=== PATIENT | male | born 1940 | race Caucasian/White ===

== ENCOUNTER 2016-06-26 02:48 | Inpatient (IN) | payer OTHER, MEDICARE ==
[~2016-06-26] VITALS: Ht 172.7 cm; Wt 65.8 kg
[~2016-06-26 02:48] MED LIST: ALTACE10 M1 PO; ALTACE10 M2 PO; AMLODIPINE BESY10 M1 PO; ATORVASTATIN CA40 MG PO; B COMPLEX1 EACH PO; BUFFERIN LOW DO81 MG PO; CARVEDILOL25 M1 PO; CENTRUM SILVER1 EAC3 PO; CENTRUM SILVER1 TA1 PO; CHOLESTYRAMINE378 GM PO; CIPROFLOXACIN500 M2 PO; COUMADIN 4MG TAB4 MG PO; COUMADIN 5 MG TA5 MG PO; COUMADIN5 M2 PO; COUMADIN7.5 M1 PO; CYTRA-2 ORAL S473 ML PO; DILAUDID2 MG PO; DOCUSATE SODIU100 MG PO; FERROUS SULFAT325 M3 PO; FOLIC ACID1 M1 PO; FOSAMAX 70MG70 MG PO; HYDRALAZINE HCL50 M1 PO; IRON65 MG PO; KEFLEX250 M1 PO; KEFLEX500 M1 PO; LASIX40 M1 PO; LEVAQUIN500 M1 PO; LEVEMIR100 U/ML SC; LEVEMIR100 UNIT/1 SC; LOMOTIL 2.5-0.1 EACH PO; LOPRESSOR 12.12.5 MG PO; LOPRESSOR 25MG25 MG PO; M930 ML PO; MERCAPTOPURINE50 M1 PO; MERCAPTOPURINE50 MG PO; METOPROLOL TART25 M1 PO; NOVOLOG100 U/ML SC; NOVOLOG100 UNIT/2 SC; OS-CAL 500+D31 EAC1 PO; OS-CAL 500+D31 EACH PO; PENICILLIN V P500 M1 PO; PENICILLIN V P500 MG PO; PERCOCET 325 MG1 TA2 PO; PERCOCET 5-3251 EACH PO; PREDNISONE10 M2 PO; PREDNISONE5 MG PO; PROCHLORPERAZIN10 MG PO; RENVELA800 M1 PO; ROCALTROL0.25 MC1 PO; SODIUM BICARBO325 M1 PO; SODIUM BICARBO650 M1 PO; SODIUM CITRATE PO; TRAMADOL HCL50 M1 PO; TRAMADOL50 MG PO; VITAMIN A8000 IU PO; VITAMIN A8000 UNIT PO; VITAMIN B-122000 MC1 PO; VITAMIN B-12500 MC2 PO; VITAMIN D2000 UNIT PO; VITAMIN D31000 UNI1 PO; [UNRECOGNIZED DRUG - OTHER] PO
--- NOTE | 2016-06-26 02:56 | NUR ---
PT BIBA FROM HOME FOR DIFF BREATHING AND CONFUSION. PT'S HAD CALLED EMS FOR A LIFT ASSIST TO THE BATHROOM. "HE WAS WEAK AND COULDN'T GET UP" PT USES A WALKER AT [facility] ON EMS ARRIVAL, THEY FOUND PATIENT CONFUSED AND WITH O2 SAT 89% ON RA. PT PLACED ON HIGH FLOW O2 BY BLS CREW. PLACED ON 2L NC BY TRANSPORTATION AID, O2 SAT IN THE 90'S. FINGERSTICK BY EMS 184. ETCO2 27. ON ARRIVAL TO ED, PT ALERT WITH JOSE ANGEL CISNEROS. ABLE TO ANSWER SOME QUESTIONS APPROPRIATLY () NOT ABLE TO ANSWER OTHER QUESTIONS (DO YOU KNOW WHERE YOU ARE? "YES" WHERE ARE YOU? PT DOES NOT ANSWER) PER SPOUSE, PATIENT HAS A NON HEALING WOUND TO BACK OF LEFT CALF AND HAD "PROCEDURE ON VEIN IN LEFT LEG TO SEE WHY THE WOUND ISN'T HEALING" PER , PT ALERT TO NORMAL LEVEL "HE JUST CAN'T TALK WITH ALL THAT PHLEGM" UPPER RESP CONGESTION ON AUSCULTATION. O2 SAT 99-100% AFTER PRODUCTIVE COUGH DR ALICIA AT BEDSIDE TO EVAL PT
[2016-06-26] MEDS ORDERED: SODIUM BICARBO325 M1 PO (02:58)
--- NOTE | 2016-06-26 03:38 | NUR ---
PORT CXR BEING DONE
--- NOTE | 2016-06-26 03:50 | NUR ---
EKG DONE AND SHOWN TO DR ALICIA. RT AT BEDSIDE FOR DUO NEB FOLLOWED BY COOLMIST TREATMENT
--- NOTE | 2016-06-26 03:56 | RADIOLOGY REPORT ---
EXAMINATION: CHEST 1 VIEW CLINICAL INFORMATION: Pneumonia. Follow-up abnormal exam. COMPARISON: 06/15/2016. TECHNIQUE: An AP view of the chest is provided. FINDINGS: The cardiac silhouette is not enlarged. The mediastinal and hilar contours are unremarkable. There are neither pleural effusions nor pneumothoraces. There is opacification within the lateral left midlung as well as the retrocardiac region. The osseous structures are unremarkable. IMPRESSION: Left lung opacification concerning for pneumonia. Recommendation is for a followup chest series to be obtained following treatment and/or resolution of symptoms to assure resolution of this appearance.
--- NOTE | 2016-06-26 03:57 | RADIOLOGY REPORT ---
EXAMINATION: XR SOFT TISSUE NECK CLINICAL INDICATION: Airway compromise. COMPARISON: None. TECHNIQUE: AP and lateral views of the neck are provided. FINDINGS: Soft tissue films of the neck demonstrate a normal larynx, pharynx and upper trachea. No soft tissue swelling or opaque foreign body is demonstrated. There is no hypopharyngeal distention. IMPRESSION: Unremarkable soft tissue neck radiographs.
--- NOTE | 2016-06-26 04:00 | NUR ---
RESPIRATORY THERAPY NOTE: ON NEB TX VIA MASK W/ 8 LPM O2 POX = 98%, STRIDOR NOTED, SET UP COOL MIST @ 28% FIO2.
[2016-06-26 04:16] LABS: ABSOLUTE BASOPHIL COUNT 0 /CUMM (0.0-0.2); ABSOLUTE EOSINOPHIL COUNT 0 /CUMM (0.0-0.7); ABSOLUTE GRANULOCYTE CT 8.8 /CUMM (1.4-6.5); ABSOLUTE LYMPH COUNT 0.4 /CUMM (1.2-3.4); ABSOLUTE MONOCYTE COUNT 1.2 /CUMM (0.10-0.60); BASOPHIL % 0.1 % (0.0-2.0); EOSINOPHIL % 0.1 % (0-5); GRANULOCYTE % 84.4 % (42.2-75.2); HEMATOCRIT 29.2 % (42-52); MEAN CORPUSCULAR HGB 29.3 PG (27.0-31.0); MEAN CORPUSCULAR HGB CONC 31.3 G/DL (33.0-37.0); MEAN CORPUSCULAR VOLUME 93.6 FL (80.0-94.0); MEAN PLATELET VOLUME 8.5 FL (7.4-10.4); PLATELET COUNT 124 /CUMM (130-400); RBC DISTRIBUTION WIDTH 19.3 % (11.5-14.5); RED BLOOD CELL CT 3.12 /CUMM (4.70-6.10); WHITE BLOOD CELL COUNT 10.4 /CUMM (4.8-10.8)
[2016-06-26 04:21] LABS: PT 13.8 SEC (9.4-12.5)
--- NOTE | 2016-06-26 04:38 | NUR ---
MULTIPLE ATTEMPTS BY MULTIPLE SATFF FOR IV ACCESS UNSUCCESSFUL. IV ACCESS ESTABLISHED BY RN EARNEST 22G LH. PT MEDICATED WITH 10 MG DECADRON IV ORDERED.
--- NOTE | 2016-06-26 04:49 | ED DYSPNEA/ASTHMA COMPLAINT ---
History of Present Illness General Chief Complaint: Dyspnea (COPD, CHF, Other) Stated Complaint: BIBA DIFF BREATHING Source: patient, family, old records, EMS, Epic Exam Limitations: no limitations Vital Signs & Intake/Output Vital Signs & Intake/Output Vital Signs Date Time Temp Pulse Resp B/P Pulse O2 O2 Flow FiO2 Ox Delivery Rate 06/26 0632 98.5 87 20 131/67 96 Aerosol 8L Mask 06/26 0501 97.7 95 22 140/63 97 Aerosol 8L Mask 06/26 0350 93 06/26 0315 97 Room Air 06/26 0256 96.9 90 20 136/67 97 Room Air Allergies Coded Allergies: Sulfa (Sulfonamide Antibiotics) (Mild, HIVES 06/15/16) Reconcile Medications Amlodipine Besylate 10 MG TABLET 1 TAB PO DAILY BP (Reported) Calcitriol (Rocaltrol) 0.25 MCG CAPSULE 1 CAP PO DAILY KIDNEYS (Reported) Calcium Carbonate/Vitamin D3 (Os-Vishal 500+D3 Caplet) 500 MG-600 TABLET 1 TAB PO TID SUPPLEMENT (Reported) Carvedilol 25 MG TABLET 1 TAB PO BID HEART (Reported) Citric Acid/Sodium Citrate (Cytra-2 Oral Solution) 473 ML SOLUTION 15 ML PO BID KIDNEYS (Reported) Cyanocobalamin (Vitamin B-12) 1,000 MCG TABLET 1 TAB PO DAILY SUPPLEMENT ( Reported) Ferrous Sulfate 325 MG (65 MG IRON) TABLET 1 TAB PO TID SUPPLEMENT (Reported) Furosemide 80 MG TABLET 1 TAB PO BID LEG SWELLING (Reported) Hydralazine HCl 50 MG TABLET 1 TAB PO BID HEART (Reported) Insulin Aspart (Novolog) 100 UNIT/ML VIAL DM (Reported) Insulin Detemir (Levemir) 100 UNIT/ML VIAL 13 UNITS SC DAILY QAM DM Multivit-Min/FA/Lycopen/Lutein (Centrum Silver Tablet) 1 EACH TABLET 1 TAB PO DAILY SUPPLEMENT (Reported) Oxycodone HCl/Acetaminophen (Percocet 5-325 MG Tablet) 5 MG-325 MG TABLET 1 TAB PO BID PRN PAIN Prednisone 10 MG TABLET 1 TAB PO DAILY KIDNEYS (Reported) Sevelamer Carbonate (Renvela) 800 MG TABLET 1 TAB PO TIDWM KIDNEYS (Reported) Sodium Bicarbonate 325 MG TABLET 1 TAB PO BID KIDNEYS (Reported) Tramadol HCl 50 MG TABLET 1 TAB PO BIDP PRN PAIN (Reported) Vitamin B Complex (B Complex) 1 EACH TABLET 1 TAB PO DAILY SUPPLEMENT ( Reported) Warfarin Sodium (Coumadin) 5 MG TABLET 1 TAB PO DAILY BLOOD THINNER (Reported ) DOSE ACCORDING TO INR Core Measure Meds Pre-Hospital coumadin Triage Note: PT BIBA FROM HOME FOR DIFF BREATHING AND CONFUSION. PT'S HAD CALLED EMS FOR A LIFT ASSIST TO THE BATHROOM. "HE WAS WEAK AND COULDN'T GET UP" PT USES A WALKER AT [facility] ON EMS ARRIVAL, THEY FOUND PATIENT CONFUSED AND WITH O2 SAT 89% ON RA. PT PLACED ON HIGH FLOW O2 BY BLS CREW. PLACED ON 2L NC BY ALLERGY SPECIALIST, O2 SAT IN THE 90'S. FINGERSTICK BY EMS 184. ETCO2 27. ON ARRIVAL TO ED, PT ALERT WITH JOSE ANGEL CISNEROS. ABLE TO ANSWER SOME QUESTIONS APPROPRIATLY () NOT ABLE TO ANSWER OTHER QUESTIONS (DO YOU KNOW WHERE YOU ARE? "YES" WHERE ARE YOU? PT DOES NOT ANSWER) PER SPOUSE, PATIENT HAS A NON HEALING WOUND TO BACK OF LEFT CALF AND HAD "PROCEDURE ON VEIN IN LEFT LEG TO SEE WHY THE WOUND ISN'T HEALING" PER , PT ALERT TO NORMAL LEVEL "HE JUST CAN'T TALK WITH ALL THAT PHLEGM" UPPER RESP CONGESTION ON AUSCULTATION. O2 SAT 99-100% AFTER PRODUCTIVE COUGH DR ALICIA AT BEDSIDE TO EVAL PT Triage Nurses Notes Reviewed? yes Onset: 2 weeks Duration: changing over time, continues in ED, getting worse Timing: recent history Severity: severe Activities at Onset: rest Prior Episodes/Possible Cause: unknown cause Modifying Factors: Worsens With: movement. Associated Symptoms: anxiety, cough, weakness HPI: 2 months prior to admission patient was [facility] for sore throat hoarse voice shortness of breath with stridor secondary to supraglottic edema requiring noninvasive positive pressure ventilation IV antibiotics to cover respiratory infection IV steroids to reduce edema and NG tube feeding due to difficulty eating at the time. 1 month prior to admission he was admitted to [facility] for cellulitis fever altered mental status secondary to chronic ulcer left leg with infection. 2 weeks prior to admission he has had recurrent cough with chest x-ray demonstrating left lower lobe infiltrate. Prescribed inhaler and antibiotics. Several days prior to admission he began developing sore throat hoarse voice. Prior to admission he became acutely weak with increased shortness of breath noisy breathing unable to ambulate found to be hypoxic with an oxygen saturation of 89% at home. Past History Travel History Traveled to [place] past 21 day No Medical History Any Pertinent Medical History? 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 No Review of Systems Review of Systems Constitutional: Reports: see HPI, malaise, weakness. EENTM: Reports: see HPI, throat pain. Respiratory: Reports: see HPI, cough, short of breath, stridor. Cardiovascular: Reports: no symptoms. GI: Reports: no symptoms. Genitourinary: Reports: no symptoms. Musculoskeletal: Reports: no symptoms. Skin: Reports: see HPI, rash. Neurological/Psychological: Reports: no symptoms. Hematologic/Endocrine: Reports: no symptoms. Immunologic/Allergic: Reports: no symptoms. All Other Systems: Reviewed and Negative Physical Exam Physical Exam General Appearance: well developed/nourished, alert, awake, anxious, severe distress Head: atraumatic, normal appearance Eyes: Bilateral: normal appearance, PERRL, EOMI. Ears, Nose, Throat: normal pharynx, normal ENT inspection Neck: normal inspection, supple, full range of motion, no midline tenderness, stridor Respiratory: chest non-tender, accessory muscle use, stridor, respiratory distress Cardiovascular: regular rate/rhythm, edema, normal peripheral pulses, tachycardia, norml femoral pulses equa Peripheral Pulses: 4+ carotid (R), 4+ carotid (L), 2+ radial (R), 2+ radial (L) Gastrointestinal: normal bowel sounds, soft, non-tender, no organomegaly Extremities: normal capillary refill, pedal edema, swelling Neurologic/Psych: no motor/sensory deficits, awake, alert, oriented x 3, belting inspector II- XII nml as tested Skin: normal color, warm/dry, rash, left leg with chronic poorly healing wound Lymphatic: no anterior cervical rebecca Core Measures ACS in differential dx? Yes Severe Sepsis Present: No Septic Shock Present: No Progress Differential Diagnosis: AMI, CHF, COPD, pulmonary embolism, pneumonia Plan of Care: Orders Procedure Date/time Status Nothing by Mouth 06/26 B Active TROPONIN LEVEL 06/26 1800 Active EKG 06/26 1800 Active TROPONIN LEVEL 06/26 1200 Active CBC WITHOUT DIFFERENTIAL 06/26 1200 Active BASIC METABOLIC PANEL 06/26 1200 Active EKG 06/26 1200 Active Lab Add-on Test 06/26 0627 Active CULTURE,URINE 06/26 0624 Active URINALYSIS 06/26 0624 Active TRC EVALUATION (GEN) 06/26 0617 Active OXYGEN SETUP (GEN) 06/26 0617 Active Pathway - chart 06/26 0617 Active House Staff 06/26 0617 Active Patient Data 06/26 0617 Active Code Status 06/26 0617 Active STREP PNEUMO URINARY ANTIGEN 06/26 0556 Active LEGIONELLA URINARY ANTIGEN 06/26 0556 Active LOWER RESPIRATORY CULTURE 06/26 0556 Active ARTERIAL BLOOD GAS (GEN) 06/26 0539 Active BLOOD CULTURE 06/26 0440 Active BLOOD CULTURE 06/26 0430 Active Admit to inpatient 06/26 0406 Active MAGNESIUM 06/26 0355 Complete TROPONIN LEVEL 06/26 0331 Complete PROTHROMBIN TIME 06/26 0331 Complete COMPREHENSIVE METABOLIC PANEL 06/26 0331 Complete CBC WITHOUT DIFFERENTIAL 06/26 0331 Complete B-TYPE NATRIURETIC PEP (BNP) 06/26 0331 Complete EKG 06/26 0331 Active Intake & Output 06/26 0314 Active PT Evaluate & Treat 06/26 UNK Active VTE Mechanical Prophylaxis 06/26 UNK Active Vital Signs 06/26 UNK Active FingerStick- Glucose 06/26 UNK Active Current Medications Sig/Kailash Start time Last Medication Dose Stop Time Status Admin Dexamethasone 6 MG Q8 06/26 1400 UNir (Decadron) Insulin Aspart 0 TIDAC 06/26 0800 UNVr (NovoLOG) Laboratory Tests 06/26/ 0355: Anion Gap 16, Estimated GFR 11 L, BUN/Creatinine Ratio 17.8, Glucose 99, Calcium 8.5, Magnesium 1.5 L, Total Bilirubin 0.6, AST 29, ALT 43, Alkaline Phosphatase 100, Troponin I 0.95 *H, Hyb-R-Xkntuvetryg Pept 77359 H, Total Protein 5.9 L, Albumin 3.0 L, Globulin 2.9, Albumin/Globulin Ratio 1.0 L, PT 13.8 H, INR 1.31 H, CBC w Diff NO MAN DIFF REQ, RBC 3.12 L, MCV 93.6, MCH 29.3, RDW 19.3 H, MPV 8.5, Gran % 84.4 H, Lymphocytes % 3.9 L, Monocytes % 11.5 H, Eosinophils % 0.1, Basophils % 0.1, PUBS MCHC 31.3 L, Absolute Granulocytes 8.8 H, Absolute Lymphocytes 0.4 L, Absolute Monocytes 1.2 H, Absolute Eosinophils 0, Absolute Basophils 0 Microbiology 06/26 624 URINE ROUT: Urine Culture - ORD 06/26 556 URINE ROUT: Legionella Antigen - ORD 06/26 556 URINE ROUT: Streptococcus pneumoniae Antigen (M - ORD 06/26 556 LOWER RESP: Respiratory Culture - ORD 06/26 556 LOWER RESP: Gram Stain - ORD 06/26 045 BLOOD: Blood Culture - RECD 06/26 355 BLOOD: Blood Culture - RECD Diagnostic Imaging: Viewed by Me: Radiology Read. Discussed w/RAD: Radiology Read. Radiology Impression: no acute abnormality (ST neck) CXR Impression: Left lung opacification concerning for pneumonia. Initial ED EKG: normal axis, normal p-waves, normal QRS complex, rhythm (sinus), rate (tachycardia), nonspecific ST T wave chg Prior EKG: unchanged Rhythm Strip: sinus tachycardia Departure Departure Disposition: STILL A PATIENT Condition: Fair Clinical Impression Primary Impression: Supraglottic edema Secondary Impressions: CKD (chronic kidney disease) Qualifiers: Chronic kidney disease stage: stage 4 (severe) Qualified Code: N18.4 - Chronic kidney disease, stage 4 (severe) Elevated troponin Referrals: OANH HEATH,WAYNE Posada (PCP/Family) Referred to [facility] as new patient No Departure Forms: Customer Survey General Discharge Information Prescriptions: Current Visit Scripts Insulin Detemir (Levemir) 13 UNITS SC DAILY QAM #10 VIAL Admission Note Spoke With: DEBBIE SPENCER MD Documentation of Exam: Documentation of any treatments & extenuating circumstances including Concerns Regarding Discharge (functional status, medication knowledge or non-compliance, living conditions, etc.) that warrant an admission rather than observation: ICU monitoring Supplemental oxygen IV steroids IV antibiotics ENT evaluation pulmonary evaluation renal evaluation cardiology evaluation endocrinology evaluation medication adjustment continuing care discharge planning Critical Care Note Critical Care Note Critical Care Time: 30-74 min (40)
--- NOTE | 2016-06-26 04:52 | NUR ---
CRITICAL TEST RESULTS [id number] BENJAMIN SMITH 75 M TESTS AND RESULTS: TROPONIN 0.95 Results received and read back by: HAIDER BENDER Results received date and time: 06/26/16 0452 The following provider was notified of the results, and read the results back: Notified date and time: 06/26/16 at 0452
--- NOTE | 2016-06-26 05:03 | NUR ---
BLOODWORK AND 1ST SET OF BLOOD CULTURES DRAWN AT 0355 AND SENT TO LAB.
--- NOTE | 2016-06-26 05:04 | NUR ---
2ND SET OF BLOOD CULTURES DRAWN AT 0454 SPECIMENS SET TOT LAB.
--- NOTE | 2016-06-26 05:08 | History & Physical ---
GONZALO BRYANT 06/26/16 0508: General Information and HPI MD Statement: I have seen and personally examined BENJAMIN SMITH and documented this H&P. The patient is a 75 year old M who presented with a patient stated chief complaint of difficulty breathing, hoarseness and stridor. Source of Information: family, old records Exam Limitations: unable to give history, clinical condition, confusion, poor historian History of Present Illness: This is a 75-year-old male with past medical history significant for antiphospholipid antibody syndrome, chronic right upper extremity deep vein thrombosis on Coumadin daily, hypertension, diabetes, chronic kidney disease stage V, severe peripheral vascular disease, left lower extremity nectrotising nonhealing ulcers status post debridement by Dr. pretty, crohns disease status post bowel resection and chronic prednisone treatment, kidney stones status post lithotripsy, right toes amputation, femoropopliteal bypass surgery was brought in by ambulance from home early in the morning for worsening of breathing, hoarseness, stridor for 2days. In the emergency room he desaturated to 88% on room air and he was placed on high flow oxygen with Ventimask 8 L saturating at 92%. Patient is not alert, awake, oriented to time place and person. He was drowsy and confused. Unable to give much history. Most of the history was provided by his . According to his , patient was fine until Friday, then she started noticing shortness of breath, which has been progressively worsening with on and off cough, not associated with sputum production. Last night he was more confused and couldn't stand without any support. He has been having hoarseness and intermittent stridor for 2 days. Off note patient was admitted at [facility] in April for hoarseness and stridor and he was found to have supraglottic edema and was treated with Decadron. He underwent laryngoscopy and MRA neck which were normal. He was also treated for pneumonia at the same time. Patient was admitted at [facility] in May 2016 for fever, altered mental status, supratherapeutic INR. He was treated with antibiotics for left lower extremity nonhealing ulcer and cellulitis. His troponins were elevated with no EKG changes at that time. Echo- may 2016 showed normal ejection fraction. Stress test was normal. Follows Dr. Harris order takers supervisor as outpatient. He follows Dr. Pretty, vascular surgeon as an outpatient. Wound debridement was done during last admission at [facility]. And wound VAC was placed at that time. He went for an appointment with Dr. pretty on 06/25/16 and left lower extremity venogram was done which showed normal. He recommended second debridement for nonhealing chronic ulcers on lle He was supposed to follow Dr. Kruse slate mixer for chronic kidney disease stage V on 06/27/2016. He follows Eddi Hilton MD video journalist as an outpatient. According to his , he denies fever, chills, sputum production, chest pain, racing of heart, headache, dizziness, lightheadedness, weakness or sensory changes, gait changes, vision changes, nausea, vomiting, abdominal pain, change in bladder or bowel habits. He denies any sick contacts, travel history. He uses walker for ambulation. He denies smoking, alcohol intake, illicit drug abuse. He quitted smoking 40 years ago. He does choke on Food once in a while. Allergies/Medications Allergies: Coded Allergies: Sulfa (Sulfonamide Antibiotics) (Mild, HIVES 06/15/16) Home Med list Amlodipine Besylate 10 MG TABLET 1 TAB PO DAILY BP (Reported) Calcitriol (Rocaltrol) 0.25 MCG CAPSULE 1 CAP PO DAILY KIDNEYS (Reported) Calcium Carbonate/Vitamin D3 (Os-Vishal 500+D3 Caplet) 500 MG-600 TABLET 1 TAB PO TID SUPPLEMENT (Reported) Carvedilol 25 MG TABLET 1 TAB PO BID HEART (Reported) Citric Acid/Sodium Citrate (Cytra-2 Oral Solution) 473 ML SOLUTION 15 ML PO BID KIDNEYS (Reported) Cyanocobalamin (Vitamin B-12) 1,000 MCG TABLET 1 TAB PO DAILY SUPPLEMENT ( Reported) Ferrous Sulfate 325 MG (65 MG IRON) TABLET 1 TAB PO TID SUPPLEMENT (Reported) Furosemide 80 MG TABLET 1 TAB PO BID LEG SWELLING (Reported) Hydralazine HCl 50 MG TABLET 1 TAB PO BID HEART (Reported) Insulin Aspart (Novolog) 100 UNIT/ML VIAL DM (Reported) Insulin Detemir (Levemir) 100 UNIT/ML VIAL 13 UNITS SC DAILY QAM DM Multivit-Min/FA/Lycopen/Lutein (Centrum Silver Tablet) 1 EACH TABLET 1 TAB PO DAILY SUPPLEMENT (Reported) Oxycodone HCl/Acetaminophen (Percocet 5-325 MG Tablet) 5 MG-325 MG TABLET 1 TAB PO BID PRN PAIN Prednisone 10 MG TABLET 1 TAB PO DAILY KIDNEYS (Reported) Sevelamer Carbonate (Renvela) 800 MG TABLET 1 TAB PO TIDWM KIDNEYS (Reported) Sodium Bicarbonate 325 MG TABLET 1 TAB PO BID KIDNEYS (Reported) Tramadol HCl 50 MG TABLET 1 TAB PO BIDP PRN PAIN (Reported) Vitamin B Complex (B Complex) 1 EACH TABLET 1 TAB PO DAILY SUPPLEMENT ( Reported) Warfarin Sodium (Coumadin) 5 MG TABLET 1 TAB PO DAILY BLOOD THINNER (Reported ) DOSE ACCORDING TO INR Compliance With Home Meds: GOOD Past History Travel History Traveled to [place] past 21 day No Medical History Neurological: NONE EENT: NONE Cardiovascular: PVD, DVT Respiratory: pneumonia Gastrointestinal: Crohn's disease Hepatic: NONE Renal: chronic kidney disease, nephrolithiasis Musculoskeletal: VASCULAR OCCLUSION RIGHT LEG RIGHT PATELLA FRACTURE WITH orif Psychiatric: NONE Endocrine: diabetes Blood Disorders: anemia, coagulopathy, DVT (RUE and RLE), antiphosphlipid syndrome Cancer(s): NONE TAFFY PULLER/Reproductive: NONE History of MRSA: No History of VRE: No History of CDIFF: No Surgical History Surgical History: colon resection, knee replacement (left), LEFT HIP ORIF status post right leg bypass status post right patellar ORIF status post right TMA status post lithotripsy and stent placements Past Family/Social History Family History Relations & Conditions if any FATHER Antiphospholipid syndrome FH: diabetes mellitus MOTHER FH: Crohn's disease Psychosocial History Who Do You Live With? spouse Services at Home: None Primary Language: Portuguese Smoking Status: Former Smoker ETOH Use: denies use Illicit Drug Use: denies illicit drug use Functional Ability ADLs Independent: dressing, eating, toileting, bathing. Ambulation: walker IADLs Needs Assist: shopping, housework, finances, food prep, telephone, transportation, medication admin. Review of Systems Review of Systems Constitutional: Denies: chills, diaphoresis, fever, malaise, weakness, unexplained weight loss. EENTM: Denies: visual changes, eye pain, eye drainage, hearing changes, nasal congestion. Cardiovascular: Reports: peripheral edema. Denies: chest pain, edema, orthopena, palpitations, syncope. Respiratory: Reports: cough, short of breath, stridor, wheezing. Denies: hemoptysis, orthopnea, sputum production. GI: Denies: bloating, constipation, diarrhea, distention, melena, nausea, vomiting. Genitourinary: Denies: dysuria, frequency, hematuria, hesitation. Musculoskeletal: Denies: back pain, gout, joint pain, joint swelling. Skin: Reports: dryness, erythema, lesions. Neurological/Psychological: Reports: confusion. Denies: ataxia, depressed, dementia, emotional problems, headache, numbness, paresthesia, tingling, tremors. Exam & Diagnostic Data Last 24 Hrs of Vital Signs/I&O Vital Signs Date Time Temp Pulse Resp B/P Pulse O2 O2 Flow FiO2 Ox Delivery Rate 06/26 0501 97.7 95 22 140/63 97 Aerosol 8L Mask 06/26 0350 93 06/26 0315 97 Room Air 06/26 0256 96.9 90 20 136/67 97 Room Air Intake & Output 06/26 0800 06/26 0000 06/25 1600 Intake Total 0 Output Total Balance 0 Intake, Oral 0 Patient 90.718 kg Weight Physical Exam General Appearance Mild Distress, not a,a,ox3. confused Skin lle ulcers, rle swelling,redness HEENT Atraumatic, EOMI, Mucous Membr. moist/pink Neck Supple, No JVD, No thryomegaly Cardiovascular Regular Rate, Normal S1, Normal S2, No Murmurs Lungs dec air entry, stridor, crackles Abdomen Normal Bowel Sounds, Soft, No Tenderness Extremities No Clubbing, No Cyanosis, b/l ll edema Vascular Normal Pulses Last 24 Hrs of Labs/Avtar: Laboratory Tests 06/26/16 0355: Anion Gap 16, Estimated GFR 11 L, BUN/Creatinine Ratio 17.8, Glucose 99, Calcium 8.5, Total Bilirubin 0.6, AST 29, ALT 43, Alkaline Phosphatase 100, Troponin I 0.95 *H, [id number]-Y-Egljvjzhkwk Pept 95866 H, Total Protein 5.9 L, Albumin 3.0 L, Globulin 2.9, Albumin/Globulin Ratio 1.0 L, PT 13.8 H, INR 1.31 H, CBC w Diff NO MAN DIFF REQ, RBC 3.12 L, MCV 93.6, MCH 29.3, RDW 19.3 H, MPV 8.5, Gran % 84.4 H, Lymphocytes % 3.9 L, Monocytes % 11.5 H, Eosinophils % 0.1, Basophils % 0.1, PUBS MCHC 31.3 L, Absolute Granulocytes 8.8 H, Absolute Lymphocytes 0.4 L, Absolute Monocytes 1.2 H, Absolute Eosinophils 0, Absolute Basophils 0 Microbiology 06/26 624 URINE ROUT: Urine Culture - ORD 06/26 556 URINE ROUT: Legionella Antigen - ORD 06/26 556 URINE ROUT: Streptococcus pneumoniae Antigen (M - ORD 06/26 556 LOWER RESP: Respiratory Culture - ORD 06/26 556 LOWER RESP: Gram Stain - ORD 06/26 045 BLOOD: Blood Culture - RECD 06/26 035 BLOOD: Blood Culture - RECD Diagnostic Data EKG Results Sinus rhythm, rate 94, QTC prolonged at 521, no acute ST-T wave changes suggestive of ischemia CXR Results Left lung opacification suggestive of pneumonia Other Results Soft tissue neck x-ray was normal Assessment/Plan Assessment: This is a 75-year-old male with past medical history significant for antiphospholipid antibody syndrome, chronic right upper extremity deep vein thrombosis on Coumadin daily, hypertension, diabetes, chronic kidney disease stage V, severe peripheral vascular disease, left lower extremity nectrotising nonhealing ulcers status post debridement by Dr. pretty, crohns disease status post bowel resection and chronic prednisone treatment, kidney stones status post lithotripsy, right toes amputation, femoropopliteal bypass surgery was brought in by ambulance from home early in the morning for worsening of breathing, hoarseness, stridor for 2days. In the emergency room he desaturated to 88% on room air and he was placed on high flow oxygen with Ventimask 8 L saturating at 92%. Vitals on admission. Afebrile 96.9, heart rate 90, respiratory rate 20, blood pressure 136/67, placed on high flow oxygen Ventimask 8 L saturating at 92%. Pertinent labs on admission-CBC 10.4, H&H 9.1 and 29.2, platelets 124. INR subtherapeutic 1.31 on admission. Sodium 142, potassium 4.7, BUN 89, creatinine 5, baseline creatinine 4.5. Troponins elevated on admission 0.95 with no EKG changes. Normal sinus rhythm, rate 94, QTC prolonged at 521, no acute ST-T wave changes. Chest x-ray left lung opacification suggestive of pneumonia. Soft tissue neck x-ray was normal. No evidence of narrowing or swelling. CT CHEST- Right greater than left bilateral pleural effusions. Left lower lobe consolidation concerning for pneumonia. 4.5 cm complex left renal cyst. Recommendation is for correlation with renal ultrasound for further tissue characterization. Patient was given IV vancomycin and ceftaz in the emergency room, 1 dose of Decadron was given. Problem list 1. Hoarseness of voice. 2. Left lung consolidation suggestive of possible pneumonia 3. Necrotizing nonhealing ulcer on left lower extremity 4. Chronic kidney disease stage V 5. Hypertension 6. Chronic lower extremity swelling 7. Diabetes 8. At the right upper extremity DVT 9. Crohn's disease 10. Antiphospholipid antibody syndrome Hoarseness of voice Patient presented with worsening hoarseness, intermittent stridor, difficulty breathing, use of accessory respiratory muscles. He was found to be lethargic but arousable in the emergency room. He is apneic in between. Significant history of supraglottic edema in April 2016 with hoarseness and stridor. Treated with tapering doses of steroids. MRA and laryngoscopy were normal. possible differentials include laryngitis, vocal fold polyps, laryngeal cancer, vocal cord palsy, angioedema. Soft tissue neck x-ray-Soft tissue films of the neck demonstrate a normal larynx , pharynx and upper trachea. No soft tissue swelling or opaque foreign body is demonstrated. There is no hypopharyngeal distention. * Admitted to ICU for close monitoring of respiratory status * Monitor vitals every shift * Maintain oxygen saturations here bone 92% * Provide supplemental oxygen * Low threshold for intubation * ENT doctor on board * Started Decadron 6 mg every 8 hours * Needs laryngoscopy. * ABGs were normal. * If patient becomes acidotic will start him on BiPAP. * needs close monitoring. * Watch for clinical status and respiratory status. Pneumonia Patient presented with worsening shortness of breath. However denied fever, chills, cough, sputum production, chest pain. He was afebrile. Normal WBC count. Chest x-ray and CAT scan showed left lung consolidation and pneumonia. Of note patient was treated for pneumonia at [facility] in April 2016. He was given antibiotics. * Admitted to ICU for further treatment. * Monitor for fever, leukocytosis, worsening shortness of breath. * Requiring high amounts of oxygen. * Monitor oxygen saturations closely * On Ventimask 8 L saturating at 92% * Labored breathing and apneic in between. * Most possibly healthcare associated pneumonia * Patient was given IV ceftaz and IV vancomycin in the emergency room * Antibiotics on hold for now * We'll consult infectious diseases. * Will follow-up the recommendations regarding further antibiotics. Necrotizing nonhealing ulcers on left lower extremity Patient has chronic nonhealing necrotizing ulcers on left lower extremity since many years. He was following as an outpatient. He underwent wound debridement in May 2016 by at [facility]. Followed on 06/25/2016. Venogram was done which was normal. Recommended second debridement. * Will call Dr. pretty * Will follow his recommendations regarding second debridement. * Wound consult subTherapeutic INR Patient has chronic right upper extremity DVT who is on Coumadin. Coumadin was on hold for possible wound debridement. Dr. pretty on board Will follow his recommendations INR 1.31 now Chronic kidney disease Chronic kidney disease stage V Follows with Dr. Kruse as outpatient, supposed to go for appointment tomorrow We will notify Dr. Kruse about the admission Creatinine 5, baseline creatinine 4.5. Patient looks confused in the emergency room possibly from uremia Rule out acute coronary syndrome * Elevated troponins on admission 0.95 * No acute EKG changes on admission-sinus rhythm, rate 94, QTC 521, no acute ST- T wave changes * Possibly from demand ischemia and shortness of breath, pneumonia. Serial troponins and EKGs * Denies any chest pain, racing of heart, diaphoresis, nausea, vomiting. * No cardiac history in the past. * Stress test was normal * Recent echo in 2016 normal ejection fraction * Follows Dr. Harris order takers supervisor as an outpatient Chronic lower extremity swelling * Patient takes Lasix at home * Lasix was on hold for now Hypertension * Patient is on amlodipine, carvedilol, hydralazine at home * We'll hold the blood pressure medications for now * Continue carvedilol Diabetes mellitus Accu-Cheks Insulin sliding scale Levemir 13 units daily Chronic kidney disease Continue calcitriol, sodium citrate, sodium bicarbonate Continued renvela Continue supplements vitamin D, B12, iron sulfate. hypomagnesemia Replete magnesium Crohn's disease Patient is on chronic prednisone treatment 10 mg daily We'll hold prednisone in the hospital as patient is on Decadron. Full code DVT prophylaxis subcutaneous Lovenox Nothing by mouth pending swallow evaluation Mild to moderate pain pathway Tylenol As Ranked By This Provider Problem List: 1. Deep venous thrombosis 2. Cellulitis of leg, excluding foot 3. Diabetes mellitus 4. CKD (chronic kidney disease) Qualifiers Chronic kidney disease stage: stage 4 (severe) Qualified Code: N18.4 - Chronic kidney disease, stage 4 (severe) 5. Elevated troponin 6. Swelling of right upper extremity 7. Acute on chronic kidney failure 8. Antiphospholipid antibody syndrome 9. Left leg cellulitis Core Measures/Miscellaneous Acute Coronary Syndrome ACS Diagnosis: No Cerebrovascular Accident CVA/TIA Diagnosis: No Congestive Heart Failure CHF Diagnosis: No Venous Thromboembolism VTE Risk Factors: Acute medical illness, Age > 40, Obesity VTE Prophylaxis Ordered Inpt: Pharm- Warfarin No [facility] VTE prophylaxis d/t: No contraindications No VTE Pharm Prophylaxis d/t: No contraindications VTE Diagnosis: No VTE Type: NONE VTE Confirmed by (Test): NONE Severe Sepsis Severe Sepsis Present: No Septic Shock Septic Shock Present: No Miscellaneous Documentation Attending Case Discussed With: dr. so Primary Care Physician: WAYNE HUGO MD Patient sees these Specialists endocrinology, nephrology cardiology vascular surgeon Level of Patient Care: Critical Care (CRI) DEBBIE SO 06/26/16 0641: Attending MD Review Statement Attending Statement Attending MD Statement: examined this patient, discuss w/resident/PA/HYDRAULIC LIFT DRIVER, agreed w/resident/PA/HYDRAULIC LIFT DRIVER, discussed with family, reviewed EMR data (avail), reviewed images, amended to note Attending Assessment/Plan: CC: dyspnea, hoarseness of voice PMHx: DM 2 (insulin-dependent); PVD, s/p transmetatarsal amputation right foot, antiphospholipid syndrome, chronic DVT on Rt leg on warfarin , CKD stage v, Crohn's disease on maintenance steroids, left lower extremity ulceration Recently admitted to [facility] in Apr and was found to have supraglottic edema, gradually improved with Decadron but etiology was uncertain. He underwent direct laryngoscopy and MRI of neck at that time. He was also treated for pneumonia. Follow-up x-ray for pneumonia showed improvement. Patient was fine until Friday according to his , then she started to notice dyspnea which was progressively worsening, on and off non productive cough, last night he was more confused and could not stand up without support. He also developed hoarseness overnight. He underwent investigative procedure for left lower extremity for nonhealing chronic necrotic ulcer on left calf. Vitals: Afebrile, RR 22, saturating 97% on 8 L but apneic inbetween. Hoarse voice, intermittent stridor, accessory respiratory muscles in use, lethargic but arousable, oriented in time RS: Coarse breathing sound bilaterally (transmitted) , CVS and up to unremarkable, right upper extremity edema, left lower extremity necrotic nonhealing ulcer, unhealthy granulation, no redness but increased temperature, decreased pulses, chronic right lower extremity edema with stasis dermatitis changes labs: WBC 10.4 with N 84%, Hb 9.1 (baseline); INR 1.3 (warfarin was held for procedure); creatinine 5.0 (baseline), troponin 0.95 (0.80 on June 15); proBNP 67,900 CXR shows left lung opacification concerning for pneumonia X ray neck soft tissue: Unremarkable soft tissue neck radiographs A and P #1. Hoarseness of voice : History of supraglottic glottic edema in the month of April (admitted at [facility]), improved with Decadron at that time, ? Uncertain etiology. Admit to ICU for close monitoring, follow-up on ABG, if patient acidotic start BiPAP, if persistently confused and apneic low threshold for intubation, consult ENT, continue Decadron, pulmonary and critical care consult. #2. Left lung consolidation : Patient has dyspnea and labored breathing and on and off nonproductive cough, multiple imagings done in last 2-3 weeks: Uncertain results, patient was also recently treated for pneumonia; we'll get CT chest without contrast for further details; patient received broad-spectrum antibiotics in ER, hold off antibiotics for now #3. Chronic nonhealing necrotic ulcer on left lower extremity : Does not appear infected at this time, patient known to Oscar Harden MD and Dr. Pretty. Please inform them as Dr. Pretty was planning for further debridement according to patient's , wound consult. #4. CKD stage V : Creatinine stable but patient is confused not sure if secondary to uremia inform Dr. Kruse, patient known to him. #5 DM : Continue home doses of basal and sliding scale insulin #6 HTN : Continue his home medications amlodipine, hydralazine, and carvedilol #7 history of chronic DVT, INR subtherapeutic, warfarin was recently stopped for vascular procedure, resume warfarin once seen by Dr. Pretty. #8 History of antiphospholipid syndrome and Crohn's disease : Continue home medications #9 adequate pain control with pain pathway, watch for respiratory depression. KENZIE CORONADO 06/26/16 0825: Resident Review Statement Resident Statement: discussed with athletic training internship Other Findings: History 76-year-old man with past medical history of severe peripheral vascular disease status post right metatarsal amputation followed by Dr. pretty, chronic kidney disease stage V (following Dr. Kruse, discussions were going on between slate mixer and vascular surgery to get AV fistula during his last admission but he couldn't get it because of his poor vascular access in left arm and chronic DVT of right arm), per had a vascular procedure on left leg yesterday by Dr. pretty in his office, recently discharged from [facility] on May 31 for left lower extremity cellulitis and chronic nonhealing necrotizing ulcer on left calf status post debridement (finished his course of Levaquin), history of antiphospholipid antibody syndrome and chronic DVT of Right arm currently on Coumadin for that (following Dr. Zeng), diabetes mellitus following Eddi Hilton MD, hypertension (following Dr. Cohn as outpatient), history of Crohn's disease on maintenance dose of prednisone presented to ER with complaint of difficulty breathing and hoarseness. Please note that patient was at [facility] recently for difficulty breathing and hoarseness and he was found to have a supraglottic edema and was given Decadron and also seen by ENT. He was in ICU but never got intubated. His symptoms got better gradually and he was discharged. 2 days ago noticed that his breathing is worse and last night he was having hoarseness and stridor, BIBA by EMS. He was also feeling weak and could not get up from the bed. At baseline he is alert awake oriented walks with walker and does not use oxygen at home. Per he denied any chest pain or discomfort, dizziness or lightheadedness. He has diarrhea but denies any nausea, vomiting, abdominal pain. He has bilateral lower extremity swelling right greater than left but that is chronic. No history of fever, chills, recent sick contacts but admits that patient sometimes chokes on food. He also has mild cough but is not bringing up any phlegm. Vitals on admission: Temperature 96.9 pulse 90, respiratory rate 20, blood pressure 136/67 oxygen saturation 89% on room air and patient was placed on high flow oxygen. Positive physical exam findings: Patient is confused on Ventimask right now. He is looking in moderate distress. Bilateral basal crackles on lung auscultation. 2+ pitting edema bilateral lower extremities R>L. Chronic nonhealing necrotizing ulcer on left lower extremity calf. Chronic venous stasis changes bilateral lower extremities. Right foot transmetatarsal amputation. Pertinent labs: H&H 9.9/29.2, platelet count 124, BUN 89, creatinine 5, magnesium 1.5, troponins 0.95, BNP 87612, INR 1.31, ABGs pH 7.37, PCO2 17, bicarbonate 9.7 EKG: Sinus tachycardia with heart rate 94, no acute ST-T wave changes as compared to previous EKG. QTc 421 Chest x-ray: Left lung opacification concerning for pneumonia Soft tissue neck x-ray: Unremarkable exam In ER he was given dexamethasone, TRC nebs, IV vancomycin and Ceftaz Assessment and plan 1. Hoarseness and difficulty breathing could be secondary to supraglottic edema /narrowing and questionable healthcare associated pneumonia. Patient had an echocardiogram recently on 05/28/2016 that showed normal left ventricular systolic function. Mild left atrial enlargement and no significant valvular abnormalities were noted. Left ventricular ejection fraction was 60-65%. We will admit patient in ICU as there is low threshold for intubation. We will continue Decadron 6 mg every 8 hours and call ENT immediately. Pulmonology consult. Will hold off antibiotics for now as patient is afebrile and WBC count is normal. Will call ID consult. Continue TRC nebs and supplemental oxygen. Will keep oxygen saturation more than 92%. reported intermittent choking while eating so we will keep patient nothing by mouth for now and to official swallow evaluation. We'll follow-up blood cultures, sputum cultures, urinary antigen for Legionella and strep pneumoniae. Will do a CT chest without contrast to better see lung pathology. 2. Positive troponins most likely demand ischemia Patient is asymptomatic. We will do serial EKGs and troponins to rule out ACS. Cardio consult in a.m. 3. Chronic kidney disease stage V Patient is heading towards dialysis. He still doesn't have any AV fistula. We will call nephrology consult. Will avoid nephrotoxins and also holding Lasix right now. 4. 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 pretty in his office per . We will call Dr. Pretty as there was also plan for second debridement. We also call for wound consult. 5. Subtherapeutic INR Yesterday patient got 5 mg of Coumadin per . Even though his INR is low but we will hold Coumadin in anticipation for any vascular procedure. Can also consider starting patient on IV heparin. 6. Anemia of chronic disease Could be because of this chronic kidney disease. We can consider starting him on Epogen. 7. Thrombocytopenia Platelet count is 124. Patient is not actively bleeding. We'll monitor closely. Will check electrolytes daily and replete accordingly We are holding amlodipine, hydralazine, Lasix, Coumadin and insulin Levemir. Will continue carvedilol, Renvela, sodium bicarbonate, calcitriol and insulin sliding scale. Patient is nothing by mouth pending swallow evaluation Alps for DVT prophylaxis Physical therapy evaluation and treatment Full code
--- NOTE | 2016-06-26 05:13 | NUR ---
PT MEDICATED WITH FORTAZ 1000 MG IV, VANCO 1000 MG INFUSING ORDERED. HOUSE STAFF IN TO EVAL PT
--- NOTE | 2016-06-26 06:00 | NUR ---
URINAL PLACE, PT UNABLE TO GIVE URINE SAMPLE. PT CLEANED OF SMA AMOUNT OF STOOL. PER "HE WEARS A PAD BECAUSE HE HAS FREQUENT LOOSE STOOLS RELATED TO HIS UC AND HE DOESN'T HAVE MAUCH BOWEL LEFT" SISSY CARE PROVIDED. PT HAS MULTIPLE OPEN AREA'S ON COCCYX, NEAR ANUS AND BUTTOCKS, RED UNBLANCHABLE SURROUNDING.
--- NOTE | 2016-06-26 06:30 | NUR ---
PT TO AND FROM CT WHILE ON CM WITH THIS RN, PLACED ON NC 4L/MIN FOR CT. PLACED BACK ON COOLMIST TREATMENT ON RETURN FROM CT
[2016-06-26] MEDS ORDERED: LEVEMIR100 UNIT/1 SC (06:44)
--- NOTE | 2016-06-26 06:51 | CT SCAN REPORT ---
EXAMINATION: CT CHEST WITHOUT CONTRAST CLINICAL INFORMATION: Follow-up abnormal exam. Follow-up pneumonia. Shortness of breath. Stridor. COMPARISON: 05/27/2016. Same day chest radiograph. TECHNIQUE: Contiguous axial thin section helical images of the chest were performed without contrast. The data set was reformatted in the coronal and sagittal planes and reviewed on an independent workstation. DLP: 447 mGy-cm. FINDINGS: The heart is of normal size. There is no pericardial effusion. There is neither mediastinal, hilar nor axillary lymphadenopathy. There are no chest wall masses. There are bilateral pleural effusions, right greater than left, with left lower lobe consolidation. There is passive atelectasis at the right lung base. There are patchy areas of groundglass opacification within both upper lobes and the right lower lobe. Images of the upper abdomen demonstrate that the liver is of normal size and attenuation without focal lesions. Normal adrenal glands are identified. Within the interpole region of the left kidney, there is an approximately 4.5 cm cyst with posterior layering high attenuation. Bone windows: Neither sclerotic nor lytic bone lesions are identified. There is a healed lateral left sixth rib fracture. There is a healed lateral right second rib fracture. IMPRESSION: Right greater than left bilateral pleural effusions. Left lower lobe consolidation concerning for pneumonia. 4.5 cm complex left renal cyst. Recommendation is for correlation with renal ultrasound for further tissue characterization. Multifocal airspace disease. Various management parameters for solitary pulmonary nodules are in the literature. According to the Fleischner Society, recommendations for pulmonary nodules are as follows: Nodule size < or = to 4 mm in LOW RISK PATIENTS: No follow up needed. Nodule size < or = to 4 mm in HIGH RISK PATIENTS: Follow up CT at 12 months; if unchanged, no further follow up. Nodule size > 4-6 mm in LOW RISK PATIENTS: Follow up CT at 12 months; if unchanged, no further follow up. Nodule size > 4-6 mm in HIGH RISK PATIENTS: Initial follow up CT at 6-12 months, then at 18-24 months if no change. Nodule size > 6-8 mm in LOW RISK PATIENTS: Initial follow up CT at 6-12 months, then at 18-24 months if no change. Nodule size > 6-8 mm in HIGH RISK PATIENTS: Initial follow up CT at 3-6 months, then 9-12 months and 24 months if no change. Nodule size > 8 mm in LOW RISK PATIENTS: Follow up CT at around 3, 9, and 24 months, dynamic contrast-enhanced CT, PET, and/or biopsy. Nodule size > 8 mm in HIGH RISK PATIENTS: Same as for low-risk patients.
--- NOTE | 2016-06-26 06:53 | NUR ---
PT ADMIT TO ICU RM 109.
[2016-06-26] MEDS ORDERED: FUROSEMIDE80 M1 PO (06:58)
--- NOTE | 2016-06-26 07:02 | NUR ---
RT AT BEDSIDE FOR ABG. HOUSE STAFF IN TO RREVAL PT.
--- NOTE | 2016-06-26 07:11 | NUR ---
FINGERSTICK 108. PT 97% ON 24% FIO2 (8L/MIN VIA AM DURING COOLMIST)
--- NOTE | 2016-06-26 07:24 | NUR ---
PT REQUESTED URINAL, HAD ALREADY BEEN INC OF URINE, VOIDED 400 CC'S IN URINAL, 3 TUBES SENT TO LAB
--- NOTE | 2016-06-26 07:35 | NUR ---
REPORT GIVEN TO LESLY NAVARRO
[2016-06-26 08:00] VITALS: BP 126/60
--- NOTE | 2016-06-26 08:01 | Cons- CRCU ---
SHABANA HEATH,[facility] 06/26/16 0801: General Information and HPI Consulting Request Date of Consult: 06/26/16 Requested By: DEBBIE SPENCER MD History of Present Illness: Mr. Marvin is a 75-year-old male with PMH of antiphospholipid antibody syndrome Wwith chronic DVT, hypertension, diabetes, CKD stage V, severe peripheral vascular disease, left lower extremity necrotizing nonhealing ulcers status post debridement by Dr. pretty, crohns disease status post bowel resection and chronic prednisone treatment, kidney stones status post lithotripsy, transmetatarsal amputation of the right foot, femoropopliteal bypass surgery, was brought in by ambulance from home for worsening of SOB, hoarseness and stridor for 2 days. In the emergency room he desaturated to 88% on room air and he was placed on high flow oxygen with Ventimask 8 L saturating at 92%. Patient was not alert, awake, oriented to time place and person. He was drowsy and confused. Unable to give much history. According to his since friday she started noticing shortness of breath, which has been progressively worsening with on and off cough, not associated with sputum production. Last night he was more confused and couldn't stand without any support. Of note, patient was admitted at [facility] in April for hoarseness and stridor and he was found to have supraglottic edema and was treated with Decadron. He underwent laryngoscopy and MRA neck which were normal. He was also treated for pneumonia at the same time. Patient was admitted at [facility] in May 2016 for fever, altered mental status, subtherapeutic INR. He was treated with antibiotics for left lower extremity nonhealing ulcer and cellulitis. His troponins were elevated with no EKG changes at that time. He denied fever, chills, sputum production, chest pain, racing of heart, headache, dizziness, lightheadedness, weakness or sensory changes, gait changes, vision changes, nausea, vomiting, abdominal pain, change in bladder or bowel habits. He denies any sick contacts, travel history. He uses walker for ambulation. He denies smoking, alcohol intake, illicit drug abuse. He quitted smoking 40 years ago. He does choke on Food once in a while. Allergies/Medications Allergies: Coded Allergies: Sulfa (Sulfonamide Antibiotics) (Mild, HIVES 06/15/16) Home Med List: Amlodipine Besylate 10 MG TABLET 1 TAB PO DAILY BP (Reported) Calcitriol (Rocaltrol) 0.25 MCG CAPSULE 1 CAP PO DAILY KIDNEYS (Reported) Calcium Carbonate/Vitamin D3 (Os-Vishal 500+D3 Caplet) 500 MG-600 TABLET 1 TAB PO TID SUPPLEMENT (Reported) Carvedilol 25 MG TABLET 1 TAB PO BID HEART (Reported) Citric Acid/Sodium Citrate (Cytra-2 Oral Solution) 473 ML SOLUTION 15 ML PO BID KIDNEYS (Reported) Cyanocobalamin (Vitamin B-12) 1,000 MCG TABLET 1 TAB PO DAILY SUPPLEMENT ( Reported) Ferrous Sulfate 325 MG (65 MG IRON) TABLET 1 TAB PO TID SUPPLEMENT (Reported) Furosemide 80 MG TABLET 1 TAB PO BID LEG SWELLING (Reported) Hydralazine HCl 50 MG TABLET 1 TAB PO BID HEART (Reported) Insulin Aspart (Novolog) 100 UNIT/ML VIAL DM (Reported) Insulin Detemir (Levemir) 100 UNIT/ML VIAL 13 UNITS SC DAILY QAM DM Multivit-Min/FA/Lycopen/Lutein (Centrum Silver Tablet) 1 EACH TABLET 1 TAB PO DAILY SUPPLEMENT (Reported) Oxycodone HCl/Acetaminophen (Percocet 5-325 MG Tablet) 5 MG-325 MG TABLET 1 TAB PO BID PRN PAIN Prednisone 10 MG TABLET 1 TAB PO DAILY KIDNEYS (Reported) Sevelamer Carbonate (Renvela) 800 MG TABLET 1 TAB PO TIDWM KIDNEYS (Reported) Sodium Bicarbonate 325 MG TABLET 1 TAB PO BID KIDNEYS (Reported) Tramadol HCl 50 MG TABLET 1 TAB PO BIDP PRN PAIN (Reported) Vitamin B Complex (B Complex) 1 EACH TABLET 1 TAB PO DAILY SUPPLEMENT ( Reported) Warfarin Sodium (Coumadin) 5 MG TABLET 1 TAB PO DAILY BLOOD THINNER (Reported ) DOSE ACCORDING TO INR Review of Systems Review of Systems Constitutional: Denies: chills, diaphoresis, fever, malaise, weakness. EENTM: Reports: throat swelling. Denies: visual changes, ear pain, hearing changes, throat pain. Cardiovascular: Reports: edema, peripheral edema. Denies: chest pain, orthopena, palpitations. Respiratory: Reports: short of breath, stridor. Denies: cough, hemoptysis, orthopnea, sputum production, wheezing. GI: Reports: no symptoms. Genitourinary: Reports: no symptoms. Skin: Reports: lesions. Denies: rash. Neurological/Psychological: Denies: headache, numbness, tingling, tremors, weakness. Past History Travel History Traveled to [place] past 21 day No Medical History Neurological: NONE EENT: NONE Cardiovascular: PVD, DVT Respiratory: pneumonia Gastrointestinal: Crohn's disease Hepatic: NONE Renal: chronic kidney disease, nephrolithiasis Musculoskeletal: VASCULAR OCCLUSION RIGHT LEG RIGHT PATELLA FRACTURE WITH orif Psychiatric: NONE Endocrine: diabetes Blood Disorders: anemia, coagulopathy, DVT (RUE and RLE), antiphosphlipid syndrome Cancer(s): NONE RISK CONTROL SPECIALIST/Reproductive: NONE Surgical History Surgical History: colon resection, knee replacement (left), LEFT HIP ORIF status post right leg bypass status post right patellar ORIF status post right TMA status post lithotripsy and stent placements Family History Relations & Conditions If Any: FATHER Antiphospholipid syndrome FH: diabetes mellitus MOTHER FH: Crohn's disease Psychosocial History Who Do You Live With? spouse Services at Home: None Primary Language: Qatari Smoking Status: Former Smoker ETOH Use: denies use Illicit Drug Use: denies illicit drug use Functional Ability ADLs Independent: dressing, eating, toileting, bathing. Ambulation: walker IADLs Needs Assist: shopping, housework, finances, food prep, telephone, transportation, medication admin. Exam & Diagnostic Data Last 24 Hrs of Vital Signs/I&O Vital Signs Date Time Temp Pulse Resp B/P Pulse O2 O2 Flow FiO2 Ox Delivery Rate 06/26 1835 99 Nasal 4.0L Cannula 06/26 1600 98.1 94 24 132/64 97 Nasal 4.0L Cannula 06/26 1600 98 Nasal 4.0L Cannula 06/26 1200 98 Aerosol 35% Mask 06/26 1131 Nasal 4.0L Cannula 06/26 0800 98.8 92 24 126/60 97 Nasal 4.0L Cannula 06/26 0800 98 Nasal 4.0L Cannula 06/26 0735 98.4 97 20 139/62 96 Nasal 2.0L Cannula 06/26 0632 98.5 87 20 131/67 96 Aerosol 8L Mask 06/26 0501 97.7 95 22 140/63 97 Aerosol 8L Mask 06/26 0350 93 06/26 0315 97 Room Air 06/26 0256 96.9 90 20 136/67 97 Room Air Intake & Output 06/26 1600 06/26 0800 06/26 0000 Intake Total 240 250 Output Total 400 Balance 240 -150 Intake, IV 240 250 Intake, Oral 0 Number 2 Bowel Movements Output, Urine 400 Patient 89.386 kg Weight Physical Exam General Appearance: well developed/nourished, alert, awake, moderate distress Head: atraumatic, normal appearance Eyes: Bilateral: PERRL, EOMI. Ears, Nose, Throat: normal pharynx, normal ENT inspection, hearing grossly normal Neck: normal inspection, supple, full range of motion Respiratory: chest non-tender, stridor, respiratory distress Cardiovascular: regular rate/rhythm, edema Gastrointestinal: normal bowel sounds, soft, non-tender Extremities: pedal edema, swelling, tenderness, LLE ulcer, necrotic. right transmetatarsal amputation. Last 48 Hrs of Labs/[place]: Laboratory Tests 06/26/16 1800: Anion Gap 17 H, Estimated GFR 21 L, Glucose 130 H, Calcium 8.3 L, Phosphorus 5.7 H, Magnesium 1.9, Total Bilirubin 0.5, AST 28, ALT 46, Troponin I 1.12 *H, Albumin 2.9 L 06/26/16 1611: Anion Gap 21 H, Estimated GFR 11 L, Glucose 164 H, Calcium 8.3 L, Phosphorus 9.9 H, Magnesium 2.0, Iron 20 L, TIBC 377, Ferritin 144.0, Total Bilirubin 0.5 , AST 25, ALT 44, Albumin 2.8 L 06/26/16 1215: Hepatitis A IgM Ab Cancelled, Hep Bs Antigen Cancelled, Hep B Core IgM Ab Conf Cancelled, Hepatitis C Antibody Cancelled 06/26/16 1215: Anion Gap 18 H, Estimated GFR 12 L, BUN/Creatinine Ratio 18.4, Glucose 131 H, Calcium 8.3 L, Magnesium 2.0, Troponin I 1.11 *H, CBC w Diff NO MAN DIFF REQ, RBC 2.97 L, MCV 93.8, MCH 29.0, RDW 19.2 H, MPV 9.6, Gran % 97.4 H, Lymphocytes % 1.3 L, Monocytes % 1.3 L, Eosinophils % 0, Basophils % 0 L, PUBS MCHC 30.9 L, Absolute Granulocytes 8.5 H, Absolute Lymphocytes 0.1 L, Absolute Monocytes 0.1 L, Absolute Eosinophils 0, Absolute Basophils 0, Hepatitis A IgM Ab NONREACTIVE, Hep Bs Antigen NONREACTIVE, Hep Bs Antibody Pending, Hep B Core IgM Ab Conf NONREACTIVE, Hepatitis C Antibody NONREACTIVE 06/26/16 1205: Sodium Cancelled, Potassium Cancelled, Chloride Cancelled, Carbon Dioxide Cancelled, Anion Gap Cancelled, BUN Cancelled, Creatinine Cancelled, Glucose Cancelled, Calcium Cancelled, Phosphorus Cancelled, Magnesium Cancelled, Total Bilirubin Cancelled, AST Cancelled, ALT Cancelled, Albumin Cancelled 06/26/16 0731: Urinalysis MOD H, Urine Color YEL, Urine Clarity CLEAR, Urine pH 6.0, Ur Specific [place] 1.025, Urine Protein 100 H, Urine Ketones NEG, Urine Nitrite NEG, Urine Bilirubin NEG, Urine Urobilinogen 0.2, Ur Leukocyte Esterase NEG, Ur Microscopic SEDIMENT EXAMINED, Urine RBC 10-15 H, Urine WBC RARE, Urine Hemoglobin SMALL H, Urine Glucose NEG 06/26/16 0655: pH 7.37, pCO2 17 L, pO2 116 H, HCO3 9.7 L, ABG O2 Sat (Measured) 98.0, P-50 ( Temp Corrected) N, Carboxyhemoglobin 0.1 L, O2 Concentration % .28, Temperature 98.5, O2 Delivery Method A/M, Phlebotomy Draw Site LEFT RADIAL 06/26/16 0500: Sodium Cancelled, Potassium Cancelled, Chloride Cancelled, Carbon Dioxide Cancelled, Anion Gap Cancelled, BUN Cancelled, Creatinine Cancelled, Glucose Cancelled, Calcium Cancelled, Phosphorus Cancelled, Magnesium Cancelled, Total Bilirubin Cancelled, AST Cancelled, ALT Cancelled, Albumin Cancelled, CBC w Diff Cancelled, WBC Cancelled, RBC Cancelled, Hgb Cancelled, Hct Cancelled, MCV Cancelled, MCH Cancelled, RDW Cancelled, Plt Count Cancelled, MPV Cancelled, PUBS MCHC Cancelled 06/26/16 0355: Anion Gap 16, Estimated GFR 11 L, BUN/Creatinine Ratio 17.8, Glucose 99, Calcium 8.5, Magnesium 1.5 L, Total Bilirubin 0.6, AST 29, ALT 43, Alkaline Phosphatase 100, Troponin I 0.95 *H, Reo-B-Fbmfibajwyj Pept 88617 H, Total Protein 5.9 L, Albumin 3.0 L, Globulin 2.9, Albumin/Globulin Ratio 1.0 L, PT 13.8 H, INR 1.31 H, CBC w Diff NO MAN DIFF REQ, RBC 3.12 L, MCV 93.6, MCH 29.3, RDW 19.3 H, MPV 8.5, Gran % 84.4 H, Lymphocytes % 3.9 L, Monocytes % 11.5 H, Eosinophils % 0.1, Basophils % 0.1, PUBS MCHC 31.3 L, Absolute Granulocytes 8.8 H, Absolute Lymphocytes 0.4 L, Absolute Monocytes 1.2 H, Absolute Eosinophils 0, Absolute Basophils 0 Microbiology 06/26 731 URINE ROUT: Legionella Antigen - COMP 06/26 731 URINE ROUT: Streptococcus pneumoniae Antigen (M - COMP Assessment/Plan Impression/Plan: Mr. 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 Pretty, crohns disease status post bowel resection and chronic prednisone treatment, kidney stones status post lithotripsy, right toes amputation, femoropopliteal bypass surgery was brought in by ambulance from home early in the morning for worsening of breathing, hoarseness, stridor for 2 days. Vitals on admission. Afebrile 96.9, heart rate 90, respiratory rate 20, blood pressure 136/67, placed on high flow oxygen Ventimask 8 L saturating at 92%. Pertinent labs on admission-CBC 10.4, H&H 9.1 and 29.2, platelets 124. INR subtherapeutic 1.31 on admission. Sodium 142, potassium 4.7, BUN 89, creatinine 5, baseline creatinine 4.5. Troponins elevated on admission 0.95 with no EKG changes. Normal sinus rhythm, rate 94, QTC prolonged at 521, no acute ST-T wave changes. Chest x-ray left lung opacification suggestive of pneumonia. Soft tissue neck x-ray was normal. No evidence of narrowing or swelling. CT CHEST- Right greater than left bilateral pleural effusions. Left lower lobe consolidation concerning for pneumonia. 4.5 cm complex left renal cyst. Recommendation is for correlation with renal ultrasound for further tissue characterization. Patient was given IV vancomycin and ceftaz in the emergency room, 1 dose of Decadron was given. Hoarseness and stridor Patient presented with worsening hoarseness, intermittent stridor, difficulty breathing, use of accessory respiratory muscles. He was found to be lethargic but arousable in the emergency room. He is apneic in between. Significant history of supraglottic edema in April 2016 with hoarseness and stridor. Treated with tapering doses of steroids. MRA and laryngoscopy were normal. Records from [place] were obtained today which had suggested infectious or inflammatory process causing subglottic edema. possible differentials include laryngitis, vocal fold polyps, laryngeal cancer, vocal cord palsy, angioedema. Soft tissue neck x-ray-Soft tissue films of the neck demonstrate a normal larynx , pharynx and upper trachea. No soft tissue swelling or opaque foreign body is demonstrated. There is no hypopharyngeal distention. * Provide supplemental oxygen * Low threshold for intubation, may need tracheostomy * ENT doctor on board * Started Decadron 6 mg every 8 hours * Needs laryngoscopy * ABGs were normal * If patient becomes acidotic will start him on BiPAP Pneumonia (Healthcare associated vs. aspiration pneumonia) Patient presented with worsening shortness of breath. However denied fever, chills, cough, sputum production, chest pain. He was afebrile. Normal WBC count. Chest x-ray and CAT scan showed left lung consolidation and pneumonia. Of note patient was treated for pneumonia at [facility] in April 2016. He was given antibiotics. * Saturating on 4L O2 through [place] * Labored breathing and apneic in between. * Patient was given IV ceftaz and IV vancomycin in the emergency room * Consult infectious diseases was placed, followed ID recs, continue with Vac/ ceftaz given possibility of aspiration pneumonia, prior cultures of the wound growing pseudomonas Necrotizing nonhealing ulcers on left lower extremity Patient has chronic nonhealing necrotizing ulcers on left lower extremity since many years. He was following as an outpatient. He underwent wound debridement in May 2016 by at [facility]. Followed on 06/25/2016. Venogram was done which was normal. Recommended second debridement. * Called Dr. Pretty. Will follow his recommendations regarding second debridement. * Wound consult placed. Subtherapeutic INR Patient has chronic right upper extremity DVT who is on Coumadin. * Coumadin was on hold for possible wound debridement. * Dr. Pretty on board, we called the office and asked for possible need for debridement. Patient will not need another debridement this week. * Will obtain instructions for the dressing from visiting nurse * INR 1.31 * We kept coumadin on hold and started IV heparin given the elevated troponins Chronic kidney disease Chronic kidney disease stage V. Patient looked confused in the emergency room possibly from uremia. Follows with Dr. Kruse as outpatient, supposed to go for appointment tomorrow * Dr. Fuentes saw the patient, recommended dialysis through [facility] today, hepatitis B panel, Epogen 3 times a week with dialysis * Creatinine 5, baseline creatinine 4.5. Acute coronary syndrome * Elevated troponins on admission 0.95, went up to 1.11 and 1.12 * No acute EKG changes on admission-sinus rhythm, rate 94, QTC 521, no acute ST- T wave changes, repeat ECGs remained unchanged * Possibly from demand ischemia and shortness of breath, pneumonia. Serial troponins and EKGs * Denies any chest pain, racing of heart, diaphoresis, nausea, vomiting. * No cardiac history in the past. * Stress test was normal * Recent echo in 2016 normal ejection fraction * Follows Dr. Cohn client resolution specialist as an outpatient, Echo- may 2016 showed normal ejection fraction. Stress test was normal. * Placed cardiology consult with Dr. Childers, Dr. Sarah called back in the evening, he agreed with current management including aspirin, beta-randy and IV heparin. Will watch for symptoms or ECG changes. Chronic lower extremity swelling * Patient takes Lasix at home * Lasix was on hold for now * Patient underwent dialysis today Hypertension * Patient is on amlodipine, carvedilol, hydralazine at home * We'll hold the blood pressure medications for now * Continue carvedilol Diabetes mellitus Accu-Cheks Insulin sliding scale Levemir 13 units daily Chronic kidney disease * Keep calcitriol, sodium citrate, sodium bicarbonate on hold * Continued renvela * Continue supplements vitamin D, B12, iron sulfate. Hypomagnesemia Replete magnesium Crohn's disease Patient is on chronic prednisone treatment 10 mg daily We'll hold prednisone in the hospital as patient is on Decadron. DVT prophylaxis subcutaneous Lovenox Diet Nothing by mouth, swallow evaluation unsuccessful today, patient is kept NPO and will repeat swallow eval tomorrow, per ST he may benefit from modified barium swallow Pain Mild to moderate pain pathway Tylenol Full code Consult Acknowledgment - Thank you for your consult request. MANUEL HEATH,HAWK 06/26/16914: General Information and HPI Allergies/Medications Current Medications: Current Medications Sig/Kailash Start time Last Medication Dose Route Stop Time Status Admin Albuterol Sulfate 3 ML Q4H PRN 06/26 0815 AC INH Albuterol Sulfate 3 ML ONCE ONE 06/26 0430 DC 06/26 INH 06/26 431 0350 Calcitriol 0.25 MCG DAILY 06/26 1000 AC PO Carvedilol 25 MG BID 06/26 1000 AC PO Ceftazidime 0 .STK-MED ONE 06/26 0456 DC .ROUTE Ceftazidime 1,000 MG ONCE ONE 06/26 0430 DC 06/26 IV 06/26 0431 0458 Dexamethasone 6 MG Q8 06/26 1400 AC Dextrose/Water 50 ML IV Dexamethasone 10 MG ONCE ONE 06/26 0330 DC 06/26 N/A 1 UNIT IV 06/26 0334 0432 Insulin Aspart 0 TIDAC 06/26 0800 AC SC Ipratropium [place] 2.5 ML ONCE ONE 06/26 0430 DC 06/26 INH 06/26 0431 0350 Magnesium Sulfate 1 GM Q2H 06/26 0815 AC 06/26 Dextrose/Water 100 ML IV 06/26 1214 0840 Sevelamer Carbonate 800 MG WITH MEALS 06/26 0800 AC PO Sodium Bicarbonate 325 MG BID 06/26 1000 AC PO Vancomycin HCl 0 .STK-MED ONE 06/26 0455 DC .ROUTE Vancomycin HCl 1,000 MG ONCE ONE 06/26 0430 DC 06/26 Sodium Chloride 250 ML IV 06/26 0529 0505 Assessment/Plan Other Findings/Comments: Impression 75 year old man admitted to ICU for dyspnea, ams, hoarseness. History of anti-phospholipid syndrome on coumadin, recently held secondary to chronic left leg ulceration. Plan Respiratory -ENT has seen patient -bilateral vocal cord paralysis -ct scan with contrast recommended, however creatinine 5, need to speak with nephrology -o2 supplementation, monitor for respiratory failure with low threshold for intubation ID -no abx ordered as standing, had vancomycin/ceftazadime, new LLL consolidation -ID consultation -f/u all cx CVS -Peripheral vascular disease -chronic clot in RLE, currently coumadin held -vascular sx consultation -cardiology consultation requested Heme -d/w Dr. Alberto since coumadin held if any other recommendations are warranted Metabolic -nephrology consultation -contrast ct recommended, in lieu of creatinine will need to discuss possibility of dialysis vs avoiding contrast Alimentary -NPO Neuro -lethargic -if not improving with mental status, will need CT today DVT prophylaxis - ALPS for now will d/w vascular/heme if any other recommendations are warranted TTS 60min Recent hospitalization at [place] - will expedite records today Consult Acknowledgment - Thank you for your consult request. Neuro -lethargic -if not improving with mental status, will need CT today DVT prophylaxis - ALPS for now will d/w vascular/heme if any other recommendations are warranted TTS 60min Recent hospitalization at [place] - will expedite records today Consult Acknowledgment - Thank you for your consult request.
--- NOTE | 2016-06-26 08:16 | Cons- Ear,Nose&Throat ---
General Information and HPI Consulting Request Date of Consult: 06/26/16 Requested By: DEBBIE SPENCER MD Reason for Consult: stridor Source of Information: patient (limited. unalbe to get hx from) Exam Limitations: unable to give history, clinical condition History of Present Illness: get called from E/r because of patient has difficulty breathing and stridor Allergies/Medications Allergies: Coded Allergies: Sulfa (Sulfonamide Antibiotics) (Mild, HIVES 06/15/16) Home Med List: Amlodipine Besylate 10 MG TABLET 1 TAB PO DAILY BP (Reported) Calcitriol (Rocaltrol) 0.25 MCG CAPSULE 1 CAP PO DAILY KIDNEYS (Reported) Calcium Carbonate/Vitamin D3 (Os-Vishal 500+D3 Caplet) 500 MG-600 TABLET 1 TAB PO TID SUPPLEMENT (Reported) Carvedilol 25 MG TABLET 1 TAB PO BID HEART (Reported) Citric Acid/Sodium Citrate (Cytra-2 Oral Solution) 473 ML SOLUTION 15 ML PO BID KIDNEYS (Reported) Cyanocobalamin (Vitamin B-12) 1,000 MCG TABLET 1 TAB PO DAILY SUPPLEMENT ( Reported) Ferrous Sulfate 325 MG (65 MG IRON) TABLET 1 TAB PO TID SUPPLEMENT (Reported) Furosemide 80 MG TABLET 1 TAB PO BID LEG SWELLING (Reported) Hydralazine HCl 50 MG TABLET 1 TAB PO BID HEART (Reported) Insulin Aspart (Novolog) 100 UNIT/ML VIAL DM (Reported) Insulin Detemir (Levemir) 100 UNIT/ML VIAL 13 UNITS SC DAILY QAM DM Multivit-Min/FA/Lycopen/Lutein (Centrum Silver Tablet) 1 EACH TABLET 1 TAB PO DAILY SUPPLEMENT (Reported) Oxycodone HCl/Acetaminophen (Percocet 5-325 MG Tablet) 5 MG-325 MG TABLET 1 TAB PO BID PRN PAIN Prednisone 10 MG TABLET 1 TAB PO DAILY KIDNEYS (Reported) Sevelamer Carbonate (Renvela) 800 MG TABLET 1 TAB PO TIDWM KIDNEYS (Reported) Sodium Bicarbonate 325 MG TABLET 1 TAB PO BID KIDNEYS (Reported) Tramadol HCl 50 MG TABLET 1 TAB PO BIDP PRN PAIN (Reported) Vitamin B Complex (B Complex) 1 EACH TABLET 1 TAB PO DAILY SUPPLEMENT ( Reported) Warfarin Sodium (Coumadin) 5 MG TABLET 1 TAB PO DAILY BLOOD THINNER (Reported ) DOSE ACCORDING TO INR Current Medications: Current Medications Sig/Kailash Start time Last Medication Dose Route Stop Time Status Admin Albuterol Sulfate 3 ML ONCE ONE 06/26 0430 DC 06/26 INH 06/26 431 0350 Calcitriol 0.25 MCG DAILY 06/26 1000 AC PO Carvedilol 25 MG BID 06/26 1000 AC PO Ceftazidime 0 .STK-MED ONE 06/26 0456 DC .ROUTE Ceftazidime 1,000 MG ONCE ONE 06/26 0430 DC 06/26 IV 06/26 0431 0458 Dexamethasone 6 MG Q8 06/26 1400 AC Dextrose/Water 50 ML IV Dexamethasone 10 MG ONCE ONE 06/26 0330 DC 06/26 N/A 1 UNIT IV 06/26 033 0432 Insulin Aspart 0 TIDAC 06/26 0800 AC SC Ipratropium [place] 2.5 ML ONCE ONE 06/26 0430 DC 06/26 INH 06/26 431 0350 Magnesium Sulfate 2 GM ONCE ONE 06/26 0815 UNVr Dextrose/Water 250 ML IV 06/26 1214 Sevelamer Carbonate 800 MG WITH MEALS 06/26 0800 AC PO Sodium Bicarbonate 325 MG BID 06/26 1000 AC PO Vancomycin HCl 0 .STK-MED ONE 06/26 045 DC .ROUTE Vancomycin HCl 1,000 MG ONCE ONE 06/26 0430 DC 06/26 Sodium Chloride 250 ML IV 06/26 0529 0505 Past History Medical History Neurological: NONE EENT: NONE Cardiovascular: PVD, DVT Respiratory: pneumonia Gastrointestinal: Crohn's disease Hepatic: NONE Renal: chronic kidney disease, nephrolithiasis Musculoskeletal: VASCULAR OCCLUSION RIGHT LEG RIGHT PATELLA FRACTURE WITH orif Psychiatric: NONE Endocrine: diabetes Blood Disorders: anemia, coagulopathy, DVT (RUE and RLE), antiphosphlipid syndrome Cancer(s): NONE 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 spouse Services at Home: None Primary Language: Palauan Smoking Status: Former Smoker ETOH Use: denies use Illicit Drug Use: denies illicit drug use Functional Ability ADLs Independent: dressing, eating, toileting, bathing. Ambulation: walker IADLs Needs Assist: shopping, housework, finances, food prep, telephone, transportation, medication admin. Exam & Diagnostic Data Vital Signs and I&O Vital Signs Date Time Temp Pulse Resp B/P Pulse O2 O2 Flow FiO2 Ox Delivery Rate 06/26 0735 98.4 97 20 139/62 96 Nasal 2.0L Cannula 06/26 0632 98.5 87 20 131/67 96 Aerosol 8L Mask 06/26 0501 97.7 95 22 140/63 97 Aerosol 8L Mask 06/26 0350 93 06/26 0315 97 Room Air 06/26 0256 96.9 90 20 136/67 97 Room Air Intake & Output 06/26 1600 06/26 0800 06/26 0000 06/25 1600 06/25 0800 06/25 0000 Intake Total 250 Output Total 400 Balance -150 Intake, IV 250 Intake, Oral 0 Number 2 Bowel Movements Output, Urine 400 Patient 200 lb Weight Stridorous in bed, unable to communicate with patient because of his medical condition, Fiberoptic scopic ex, through left nasal cavity show dry and crustion bilateral nasal cavities and upper airway. bilateral vocal cords paralysis with 3 mm gap. no mass seen. epiglottis is normal Physical Exam General Appearance: severe distress Head: normal appearance Eyes: Bilateral: normal appearance. Ears, Nose, Throat: nasal congestion (see scopic ex) Neck: normal inspection Respiratory: stridor Assessment/Plan Assessment/Plan bilateral vocal cord paralysis,Etio not clear at this time.Needs CT of neck with contrast and chest. humidifier ,Intubation ,Decadron, Possible tracheoty if get into airway problem Consult Acknowledgment - Thank you for your consult request.
--- NOTE | 2016-06-26 10:13 | NUR ---
Wound Care Assessment: Patient presents from home to [facility] with multiple alterations in skin integrity that were present on admission. There is a 15 X 9 cm red non blanchable area to the buttocks and coccyx which also includes multiple unstageable pressure injuries as well as a DTI. One unstageable is located to the right buttock amd measures 1.5 X 1.5 cm- wound bed is 100% yellow and moist. no drainage is noted. No s/s of infection. A cluster of 4 unstageable ulcers measuring 5 X 2 cm is noted to the left buttock each measuring approx 0.5 X 0.5 cm. Wound beds are 100% yellow and moist. Periwound is the red non blanchable area that was previously mentioned. No s/s of infection is noted. Incontinent dermititis is also noted to the periarea and inner buttocks. A purple non blanchable long to the coccyx is noted measuring 5 X 4cm- periwound is red and non blanchable. Minimal excoriation is noted. A full thickness non healing wound is noted to the left calf which measures 18 x 13 CM- 95% of a mixture of dry brown and yellow slough- non viable tissue- with some scattered areas of a pale pink wound bed. A dry necrotic area is noted to the achilles measuring 2 X 1.5 cm. A pedal pulse is present with the doppler to the left extremity. He is s/p r. toe amp which is healed. Per , pt did have an angio yesterday and a dressing is noted to the groin. Impression: Unstageable pressure injuries to the bilateral buttocks. DTI and stage 1 to the coccyx and buttocks. Full thickness wounds to the left posterior leg and achilles. Recommendations: Vascular to be in to assess- patient sees Dr. Pretty and Dr. Del Cid to place consult. Left leg wound cleansed with NS, xeroform FB a DPD. A+d/ barier cream to be applied to buttocks and coccyx every shift, prn, and after each inc episode. Desitin to be applied to inner buttocks for inc dermititis. Obtain nutrition consult- pt npo at this time. Please order catergory 2 mattress. Follow vascular for any additional wound care reccomendations. Encourage frequent turning and repositioning.
--- NOTE | 2016-06-26 10:48 | NUR ---
Patient arrived to [facility] from ER at approx 0745 accompanied by RN on balance bridge inspector. Pt was transferred to bed and bed alarm is in place. He is currently drowsey but easy arousable, periods where he is more lethargic. Can answer questions approp but will drift back off to sleep during conversations. He can move all extremities and follow commands however is weak. Voice is coarse and neck appears swollen. A slight droop to the left is noted when pt is sleeping and Dr. Ratliff was notified and in to assess. Patient able to smile and stick out tongue. Hand grasps were weak but equal. NSR with pvc's on tele monitor. HR= 90's. SBP: 120-130's and pt denies chest pain. Pulses + with doppler. On 4L nc, O2 sat 98%. Lungs stridorous and diminished at the bases. Pt denies any difficulty breathing but is tachypneic with exertion. Pt has no dropped O2 saturation and denies felling any obstruction that would impair his breathing. Abdomen is soft and non tender with + bowel sounds. he was inc of stool at time of admission. Used urinal in ER. Multiple wounds- see wound assessment completed by this RN. BUE and BLE edema is noted. Full thickness wound to left posterior leg was dressed and dressing is currently CDI. Dr. Pretty to be notified by house staff. An additional IV line was established. Pt is receiving a mag bolus and labs to be redrawn at 1200. Renal to be consulted. Dr. Del Cid in to assess patient and POC was discussed. Vitals are currently stable and pt shows no s/s of resp sitress at this time. Pts or at the bedside and was updated on POC. He remains NPO for a pending swallow eval. ENT was in earlier this morning and recommended a CT of the neck with contrast however is on hold due to creatinine. Per Dr. Dawn pt does have bilateral vocal cord paralysis. Was seen at [facility] previously for same symtpoms and diagnosis and records to be obtained by house staff. Pt offers no complaints at this time. Will continue to closely monitor patient.
--- NOTE | 2016-06-26 11:21 | NUR ---
PHYSICAL THERAPY: Recieved orders, reviewed chart, and spoke to RN. Patient just arrived to ICU and is currently being medically managed for ?CVA/TIA. Per nursing, patient is not appropriate for physical therapy evaluation at this time. Will f/u in A.M.
--- NOTE | 2016-06-26 11:51 | Cons- Nephrology ---
General Information and HPI Consulting Request Date of Consult: 06/26/16 Requested By: DEBBIE SPENCER MD Reason for Consult: CKD stage 5 Source of Information: family, old records Exam Limitations: clinical condition, confusion History of Present Illness: The patient is a 75-year-old male with a history of severe chronic kidney disease, stage V, is followed in the office by Dr. Kruse and runs a baseline creatinine of about 4.8-5 mg/dL. He has a long history of diabetes, hypertension, and also has a history of antiphospholipid antibody syndrome with prior DVTs/PEs for which she's been on warfarin, and also carries a history of Crohn's disease for which she is on prednisone as an as had bowel resections. Dr. Kruse recommended he have an AV fistula created, and he's had a vein map by Dr. Cardoso who felt that his veins were suboptimal and that he would need a graft; he has yet to have the AV graft created. He now comes in with a change in mental status, hoarseness, stridor and shortness of breath. Chest CT revealed a left lower lobe infiltrate, bilateral pleural effusions. He was seen by ENT was strongly recommending a CT with IV contrast given concern about vocal cord paralysis, of unclear etiology. Of note his recent hospital visit [facility] with the same issue and had an MRI at that point in time involving his neck. The patient is very lethargic, unable to provide much of a history, and has audible upper airway wheezing. His knows it has become quite edematous of late. He has been taking Percocet and tramadol at home (last dose Friday night) disease, for chronic pain in [place] his left foot ulcer which will also need to be debrided soon. Creatinine is 5.0 which is at baseline however BUN is up to 89 and estimate GFR is only 11 mL/min. He usually takes Coumadin for APL S with history of DVT PE and recent DVT in the right upper extremity, however this has been on hold even an impending need for a left leg ulcer debridement, and INR is 1.3. Allergies/Medications Allergies: Coded Allergies: Sulfa (Sulfonamide Antibiotics) (Mild, HIVES 06/15/16) Home Med List: Amlodipine Besylate 10 MG TABLET 1 TAB PO DAILY BP (Reported) Calcitriol (Rocaltrol) 0.25 MCG CAPSULE 1 CAP PO DAILY KIDNEYS (Reported) Calcium Carbonate/Vitamin D3 (Os-Vishal 500+D3 Caplet) 500 MG-600 TABLET 1 TAB PO TID SUPPLEMENT (Reported) Carvedilol 25 MG TABLET 1 TAB PO BID HEART (Reported) Citric Acid/Sodium Citrate (Cytra-2 Oral Solution) 473 ML SOLUTION 15 ML PO BID KIDNEYS (Reported) Cyanocobalamin (Vitamin B-12) 1,000 MCG TABLET 1 TAB PO DAILY SUPPLEMENT ( Reported) Ferrous Sulfate 325 MG (65 MG IRON) TABLET 1 TAB PO TID SUPPLEMENT (Reported) Furosemide 80 MG TABLET 1 TAB PO BID LEG SWELLING (Reported) Hydralazine HCl 50 MG TABLET 1 TAB PO BID HEART (Reported) Insulin Aspart (Novolog) 100 UNIT/ML VIAL DM (Reported) Insulin Detemir (Levemir) 100 UNIT/ML VIAL 13 UNITS SC DAILY QAM DM Multivit-Min/FA/Lycopen/Lutein (Centrum Silver Tablet) 1 EACH TABLET 1 TAB PO DAILY SUPPLEMENT (Reported) Oxycodone HCl/Acetaminophen (Percocet 5-325 MG Tablet) 5 MG-325 MG TABLET 1 TAB PO BID PRN PAIN Prednisone 10 MG TABLET 1 TAB PO DAILY KIDNEYS (Reported) Sevelamer Carbonate (Renvela) 800 MG TABLET 1 TAB PO TIDWM KIDNEYS (Reported) Sodium Bicarbonate 325 MG TABLET 1 TAB PO BID KIDNEYS (Reported) Tramadol HCl 50 MG TABLET 1 TAB PO BIDP PRN PAIN (Reported) Vitamin B Complex (B Complex) 1 EACH TABLET 1 TAB PO DAILY SUPPLEMENT ( Reported) Warfarin Sodium (Coumadin) 5 MG TABLET 1 TAB PO DAILY BLOOD THINNER (Reported ) DOSE ACCORDING TO INR Current Medications: Current Medications Sig/Kailash Start time Last Medication Dose Route Stop Time Status Admin Albuterol Sulfate 3 ML Q4H PRN 06/26 0815 AC 06/26 INH 1128 Albuterol Sulfate 3 ML ONCE ONE 06/26 043 DC 06/26 INH 06/26 431 0350 Calcitriol 0.25 MCG DAILY 06/26 1000 AC PO Carvedilol 25 MG BID 06/26 1000 AC PO Ceftazidime 0 .STK-MED ONE 06/26 0456 DC .ROUTE Ceftazidime 1,000 MG ONCE ONE 06/26 0430 DC 06/26 IV 06/26 431 0458 Dexamethasone 6 MG Q8 06/26 1400 AC Dextrose/Water 50 ML IV Dexamethasone 10 MG ONCE ONE 06/26 0330 DC 06/26 N/A 1 UNIT IV 06/26 0334 0432 Insulin Aspart 0 TIDAC 06/26 0800 AC SC Ipratropium [place] 2.5 ML ONCE ONE 06/26 0430 DC 06/26 INH 06/26 0431 0350 Magnesium Sulfate 1 GM Q2H 06/26 0815 AC 06/26 Dextrose/Water 100 ML IV 06/26 1214 0945 Sevelamer Carbonate 800 MG WITH MEALS 06/26 0800 AC PO Sodium Bicarbonate 325 MG BID 06/26 1000 AC PO Vancomycin HCl 0 .STK-MED ONE 06/26 0455 DC .ROUTE Vancomycin HCl 1,000 MG ONCE ONE 06/26 430 DC 06/26 Sodium Chloride 250 ML IV 06/26 0529 0505 Review of Systems Review of Systems: PT unable to provide but per : Gen: neg fever, chills, nightsweats, wt loss Skin: neg rash, pruritus +L leg ulcer Eye: neg visual changes, diplopia ENT: neg hearing changes, rhinitus CV: +SOB, +edema Pulm: +hourseness, +SOB. no sputum GI: neg nausea, vomiting, diarrhea, abdominal pain, hematemesis, BRBPR : neg dysuria, frequency, urgency, hematuria, foamy urine, nocturia Musculoskeletal: neg myalgias, arthralgias Neuro: neg weakness, numbness Psych: neg depression, mental status changes Heme: neg bruising, easy bleeding, +clots Past History Travel History Traveled to [place] past 21 day No Medical History Blood Transfusion Hx: Yes Neurological: NONE EENT: NONE Cardiovascular: PVD, DVT Respiratory: pneumonia Gastrointestinal: Crohn's disease Hepatic: NONE Renal: nephrolithiasis, CKD Musculoskeletal: VASCULAR OCCLUSION RIGHT LEG RIGHT PATELLA FRACTURE WITH orif NON HEALING WOUNDS R. TOE AMPUTATIONS Psychiatric: NONE Endocrine: diabetes Blood Disorders: anemia, coagulopathy, DVT (RUE and RLE), antiphosphlipid syndrome Cancer(s): NONE DATA LEAD/Reproductive: NONE Surgical History Surgical History: colon resection, knee replacement (left), LEFT HIP ORIF status post right leg bypass status post right patellar ORIF status post right TMA status post lithotripsy and stent placements Family History Relations & Conditions If Any: FATHER Antiphospholipid syndrome FH: diabetes mellitus MOTHER FH: Crohn's disease Psychosocial History Where Do You Live? Home Who Do You Live With? spouse Services at Home: None Primary Language: [place] Islander Smoking Status: Former Smoker ETOH Use: denies use Illicit Drug Use: denies illicit drug use Functional Ability ADLs Independent: dressing, eating, toileting, bathing. Ambulation: walker IADLs Needs Assist: shopping, housework, finances, food prep, telephone, transportation, medication admin. Exam & Diagnostic Data Vital Signs and I&O Vital Signs Date Time Temp Pulse Resp B/P Pulse O2 O2 Flow FiO2 Ox Delivery Rate 06/26 0800 98.8 92 24 126/60 97 Nasal 4.0L Cannula 06/26 0800 98 Nasal 4.0L Cannula 06/26 0735 98.4 97 20 139/62 96 Nasal 2.0L Cannula 06/26 0632 98.5 87 20 131/67 96 Aerosol 8L Mask 06/26 0501 97.7 95 22 140/63 97 Aerosol 8L Mask 06/26 0350 93 06/26 0315 97 Room Air 06/26 0256 96.9 90 20 136/67 97 Room Air Intake & Output 06/26 1600 06/26 0400 06/25 1600 06/25 0400 06/24 1600 06/24 0400 Intake Total 250 0 Output Total 400 Balance -150 0 Intake, IV 250 Intake, Oral 0 Number 2 Bowel Movements Output, Urine 400 Patient 197 lb 200 lb Weight Physical Exam: General: lethargic, nearly obtunded and barely arousable. dyspnic. +audible upper airway wheeze HEENT: NC/AT. No icterus. Moist mucosa Neck: negative for LATOYA, JVD CV: RRR, no m/r/g Pulm: dec BS at bases Abd: soft, NT/ND, negative renal bruits Lower Ext: 2+ edema. L leg ulcer bandaged Upper Ext: no AVFs or AVGs swollen upper extremities Back: negative for CVA tenderness Neuro: neg tremor, asterixis Skin: no rash, jaundice L leg ulcer bandaged. +bruises : no laboy catheter Results Pertinent Lab Results: Laboratory Tests 06/26 06/26 0731 0655 Blood Gas pH (7.35 - 7.45 PH) 7.37 pCO2 (35 - 45 TORR) 17 L pO2 (80 - 100 TORR) 116 H HCO3 (21 - 28 MEQ/L) 9.7 L ABG O2 Sat (Measured) (>96.0 %) 98.0 P-50 (Temp Corrected) N Carboxyhemoglobin (1.5 - 5.0 %) 0.1 L O2 Concentration % .28 Temperature (97.0 - 100.0 FARH) 98.5 O2 Delivery Method A/M Miscellaneous Phlebotomy Draw Site LEFT RADIAL Urines Urinalysis MOD H Urine Color (YEL,AMB,STR) YEL Urine Clarity (CLEAR) CLEAR Urine pH (5.0 - 8.0) 6.0 Ur Specific [place] (1.001 - 1.035) 1.025 Urine Protein (NEG,<30 MG/DL) 100 H Urine Ketones (NEG) NEG Urine Nitrite (NEG) NEG Urine Bilirubin (NEG) NEG Urine Urobilinogen (0.1 - 1.0 EU/dl) 0.2 Ur Leukocyte Esterase (NEG) NEG Ur Microscopic SEDIMENT EXAMINED Urine RBC (0 - 5 /HPF) 10-15 H Urine WBC (0 - 2 /HPF) RARE Urine Hemoglobin (NEG) SMALL H Urine Glucose (N MG/DL) NEG 06/26 0355 Chemistry Sodium (137 - 145 mmol/L) 142 Potassium (3.5 - 5.1 mmol/L) 4.7 Chloride (98 - 107 mmol/L) 109 H Carbon Dioxide (22 - 30 mmol/L) 18 L Anion Gap (5 - 16) 16 BUN (9 - 20 mg/dL) 89 H Creatinine (0.7 - 1.2 mg/dL) 5.0 H Estimated GFR (>60 ml/min) 11 L BUN/Creatinine Ratio (7 - 25 %) 17.8 Glucose (65 - 99 mg/dL) 99 Calcium (8.4 - 10.2 mg/dL) 8.5 Magnesium (1.6 - 2.3 mg/dL) 1.5 L Total Bilirubin (0.2 - 1.3 mg/dL) 0.6 AST (17 - 59 U/L) 29 ALT (21 - 72 U/L) 43 Alkaline Phosphatase (< 127 U/L) 100 Troponin I (<0.11 ng/ml) 0.95 *H Rdl-L-Iejyriqsame Pept (<125 pg/mL) 39644 H Total Protein (6.3 - 8.2 g/dL) 5.9 L Albumin (3.5 - 5.0 g/dL) 3.0 L Globulin (1.9 - 4.2 gm/dL) 2.9 Albumin/Globulin Ratio (1.1 - 2.2 %) 1.0 L Coagulation PT (9.4 - 12.5 SEC) 13.8 H INR (0.90 - 1.17) 1.31 H Hematology CBC w Diff NO MAN DIFF REQ WBC (4.8 - 10.8 /CUMM) 10.4 RBC (4.70 - 6.10 /CUMM) 3.12 L Hgb (14.0 - 18.0 G/DL) 9.1 L Hct (42 - 52 %) 29.2 L MCV (80.0 - 94.0 FL) 93.6 MCH (27.0 - 31.0 PG) 29.3 RDW (11.5 - 14.5 %) 19.3 H Plt Count (130 - 400 /CUMM) 124 L MPV (7.4 - 10.4 FL) 8.5 Gran % (42.2 - 75.2 %) 84.4 H Lymphocytes % (20.5 - 51.1 %) 3.9 L Monocytes % (1.7 - 9.3 %) 11.5 H Eosinophils % (0 - 5 %) 0.1 Basophils % (0.0 - 2.0 %) 0.1 PUBS MCHC (33.0 - 37.0 G/DL) 31.3 L Immunology Absolute Granulocytes (1.4 - 6.5 /CUMM) 8.8 H Absolute Lymphocytes (1.2 - 3.4 /CUMM) 0.4 L Absolute Monocytes (0.10 - 0.60 /CUMM) 1.2 H Absolute Eosinophils (0.0 - 0.7 /CUMM) 0 Absolute Basophils (0.0 - 0.2 /CUMM) 0 Assessment/Plan Assessment/Recommendations Assessment: CKD stage V with uremia: The patient is lethargic/obtunded and I suspect uremia is playing a role. Recent narcotics may have a prolonged half-life in the setting of severe renal failure may be contributing to his encephalopathy. Cause of CKD is likely diabetic nephropathy however other forms of chronic glomerular disease cannot be ruled out. Given the severity of his renal failure with estimated GFR of only 11 mL/m, coupled with significant metabolic acidosis as well as uremic manifestations including encephalopathy, urgent hemodialysis as warranted. Would arrange for a stat Mj catheter today with interventional radiology; after discussion with the ICU attending he feels the patient is stable enough from a respiratory standpoint to have an Mj catheter placed however no objection to a temporary Thomas catheter if IR is not comfortable (however would need a change of his Thomas to an Mj catheter next week). Please check hepatitis B panel. After dialysis initiation at no objection to a CT with IV contrast of the neck if warranted, however important to note the patient recently had an MRI at [place] to evaluate the same issue so not sure if further neck imaging will exchange operator will defer to ICU/ENT. Metabolic acidosis: This is be addressed with hemodialysis. Please discontinue the bicarbonate tablets Anemia: He's been on Aranesp as an outpatient with Dr. Kang. Plan to switch to intravenous Epogen 3 times a week with hemodialysis. Recommendations: #1: Stat Mj catheter #2: Hemodialysis today and tomorrow and ICU #3: Stat hepatitis B panel for screening #4: I will order Epogen 3 times a week with hemodialysis #5: Check phosphorus level, iron studies #6: Discontinue by mouth calcitriol this can be given with dialysis #7: Once taking by mouth would add Nephro-Arthur 1 by mouth daily Considered for dialysis obtained from his . Spoke to the ICU team is in agreement with these plans. My partner, his primary outpatient box printer Dr. Kruse was notified in agreement with dialysis initiation. Thank you for the consultation
--- NOTE | 2016-06-26 13:14 | NUR ---
SPEECH THERAPY: ORDERS FOR SWALLOW EVAL RECEIVED, CHART REVIEWED AND D/W RN. ATTEMPTED EVAL BUT PT IS LETHARGIC, ABLE TO MAINTAIN AROUSAL FOR LESS THAN 20 SECONDS BEFORE DRIFTING OFF. HE IS ALSO STRIDOROUS AND ON VENTIMASK AT PRESENT. NOT APPROPRIATE FOR SWALLOW EVAL GIVEN CURRENT MENTAL AND RESPIRATORY STATUS. DISCUSSED WITH PT'S WHO REPORTS THAT PT HAS HAD LONG STANDING DYSPHAGIA WITH NASAL REGURGITATION FOR SEVERAL YEARS WITH INCREASED COUGHING W PO INTAKE NOTED RECENTLY. SHE INDICATES THAT HE DID HAVE A SWALLOWING EVALUATION AT [facility] DURING HIS ADMISSION WITH SIMILAR PRESENTING SYMPTOMS THOUGH SHE IS NOT SURE IF IT WAS MBS OR FEES OR WHAT THE OUTCOME WAS. HE DID HAVE NGT FEEDS FOR 4-5 DAYS. RECORDS FROM [facility] HAVE BEEN REQUESTED. OF NOTE, PT WAS SEEN BY ENT THIS AM WHO NOTED BILATERAL VOCAL FOLD PARALYSIS WITH A 3MM GAP OF UNCLEAR ETIOLOGY, NO MASS, NORMAL EPIGLOTTIS. HE WILL LIKELY REQUIRE AN MBS PRIOR TO INITIATION OF DIET BASED ON HISTORY.
[2016-06-26 13:43] LABS: ABSOLUTE BASOPHIL COUNT 0 /CUMM (0.0-0.2); ABSOLUTE EOSINOPHIL COUNT 0 /CUMM (0.0-0.7); ABSOLUTE GRANULOCYTE CT 8.5 /CUMM (1.4-6.5); ABSOLUTE LYMPH COUNT 0.1 /CUMM (1.2-3.4); ABSOLUTE MONOCYTE COUNT 0.1 /CUMM (0.10-0.60); BASOPHIL % 0 % (0.0-2.0); EOSINOPHIL % 0 % (0-5); GRANULOCYTE % 97.4 % (42.2-75.2); HEMATOCRIT 27.8 % (42-52); MEAN CORPUSCULAR HGB CONC 30.9 G/DL (33.0-37.0); MEAN CORPUSCULAR VOLUME 93.8 FL (80.0-94.0); MEAN PLATELET VOLUME 9.6 FL (7.4-10.4); PLATELET COUNT 123 /CUMM (130-400); RBC DISTRIBUTION WIDTH 19.2 % (11.5-14.5); RED BLOOD CELL CT 2.97 /CUMM (4.70-6.10)
[2016-06-26 14:00] LABS: WHITE BLOOD CELL COUNT 8.7 /CUMM (4.8-10.8)
--- NOTE | 2016-06-26 15:06 | ULTRASOUND REPORT ---
CLINICAL HISTORY: 75-year-old male with end-stage renal disease, now requiring dialysis. Patient presents for tunneled dialysis catheter placement. PROCEDURES: 1. Real-time ultrasound guided access into the right internal jugular vein after documentation of selected vessel patency, and permanent imaging storing in the patient records. 2. Placement of a tunneled [<16>] Fr 23 cm dual lumen central venous catheter. PHYSICIANS: Dr. Rikki Kendrick The attending radiologist was present during the procedure and related imaging, and reviewed the report. MEDICATIONS: 1% lidocaine local anesthesia. COMPLICATIONS: [<None>] ESTIMATED BLOOD LOSS: < 5 mL SPECIMENS: [<None>] CONTRAST: [<None>] FLUOROSCOPY TIME: 1.3 minutes PROCEDURE NOTE: The procedure, risks, benefits, and alternatives were carefully explained to the patient's and written informed consent was obtained. The patient was placed supine on the fluoroscopy table. A time out was performed. The neck and upper chest was prepped and draped in usual sterile fashion. Local anesthesia was administered to the access site with Lidocaine. The right internal jugular vein was accessed using ultrasound with a 5 F Micropuncture set. A 0.018 wire was advanced into the high right atrium for measuring purposes. The 0.018in wire was subsequently exchanged for a 0.035 in Amplatz wire that was advanced to the IVC to maintain access during the tunneling process. Next, subcutaneous Lidocaine was administered to the [<chest>], and a subcutaneous tunnel that connects to the venotomy site was created using blunt dissection. The dialysis catheter was sized for the correct tunnel length. The catheter was then pulled through the tunnel. The micropuncture set sheath in the IJ was exchanged over the wire for sequential dilators and lastly a peel-away sheath. The inner dilator and J wire removed, and the catheter was advanced through the sheath. The sheath was peeled away. The catheter was tested, flushed, and sutured to the skin with its tip in the [<high right atrium>]. The catheter ports were packed with heparin per routine protocol. FINDINGS: 1. Patent right internal jugular vein. 2. Tip of catheter in the [<high right atrium>]. 3. Catheter flushes and aspirates very well with a 10mL syringe. 4. No pneumothorax. IMPRESSION: Successful and uncomplicated placement of a right internal jugular 16 Mauritian by 23 cm hemodialysis catheter. PLAN: -The patient was stable after the procedure and was transferred to the ICU. -The catheter may be used immediately. -The suture at the neck may be removed in 5-7 days and the suture securing the catheter should remain in place for 4 weeks or greater.
[2016-06-26 16:00] VITALS: BP 132/64
--- NOTE | 2016-06-26 16:26 | Cons- Infect Disease ---
General Information and HPI Consulting Request Date of Consult: 06/26/16 Requested By: DEBBIE SPENCER MD Reason for Consult: Rule out pneumonia Source of Information: patient, family, old records Exam Limitations: clinical condition History of Present Illness: This is a 75-year-old man with diabetes, peripheral vascular disease, status post right TMA, chronic renal insufficiency, Crohn's disease, maintained on prednisone, with chronic diarrhea, antiphospholipid syndrome, with a chronic DVT of the right lower extremity and a more recently diagnosed DVT of the right upper extremity, maintained on Coumadin, chronically limited range of motion of the right shoulder, hospitalized at [facility] 2 months prior to admission with hoarseness and stridor, found to have supraglottic edema, treated with Decadron, with a laryngoscopy and MRA of the neck reportedly normal, and treated for pneumonia on that admission, with a chronic left calf necrotic ulcer, hospitalized at [facility] one month prior to admission for debridement of the ulcer in the OR, treated with Levaquin for Pseudomonas isolated from the OR culture and apparently given a course of Ciprofloxacin after a repeat debridement as an outpatient, admitted early this morning after presenting to the emergency room with several days of stridor, with an observed episode of choking, difficulty breathing and altered mental status. On admission he was afebrile. O2 sat was 89% on room air. Laboratory data revealed a white blood cell count of 10,000, H&H 9 and 29, platelets 124,000, BUN/creatinine 89 and 5.0 , with normal liver enzymes. Troponin 0.95. ProBNP 67,900. INR 1.31. ABG 7.37/17/116 on 28% oxygen. Urinalysis 10-15 RBC/rare WBCs. Chest x-ray revealed a left lower lobe opacification. X-ray of the soft tissues of the neck was negative. CT the chest revealed left lower lobe consolidation, right greater than left pleural effusions and multifocal airspace disease. He was begun on Decadron and given Vancomycin and Ceftazidime and admitted to the ICU. He was evaluated by ENT who performed a fiberoptic laryngoscopy, revealing bilateral vocal cord paralysis. He was evaluated by Renal, and a tunneled catheter was placed in the right IJ for dialysis. At present he does report shortness of breath. He does not report a cough or chest discomfort. Allergies/Medications Allergies: Coded Allergies: Sulfa (Sulfonamide Antibiotics) (Mild, HIVES 06/15/16) Home Med List: Amlodipine Besylate 10 MG TABLET 1 TAB PO DAILY BP (Reported) Calcitriol (Rocaltrol) 0.25 MCG CAPSULE 1 CAP PO DAILY KIDNEYS (Reported) Calcium Carbonate/Vitamin D3 (Os-Vishal 500+D3 Caplet) 500 MG-600 TABLET 1 TAB PO TID SUPPLEMENT (Reported) Carvedilol 25 MG TABLET 1 TAB PO BID HEART (Reported) Citric Acid/Sodium Citrate (Cytra-2 Oral Solution) 473 ML SOLUTION 15 ML PO BID KIDNEYS (Reported) Cyanocobalamin (Vitamin B-12) 1,000 MCG TABLET 1 TAB PO DAILY SUPPLEMENT ( Reported) Ferrous Sulfate 325 MG (65 MG IRON) TABLET 1 TAB PO TID SUPPLEMENT (Reported) Furosemide 80 MG TABLET 1 TAB PO BID LEG SWELLING (Reported) Hydralazine HCl 50 MG TABLET 1 TAB PO BID HEART (Reported) Insulin Aspart (Novolog) 100 UNIT/ML VIAL DM (Reported) Insulin Detemir (Levemir) 100 UNIT/ML VIAL 13 UNITS SC DAILY QAM DM Multivit-Min/FA/Lycopen/Lutein (Centrum Silver Tablet) 1 EACH TABLET 1 TAB PO DAILY SUPPLEMENT (Reported) Oxycodone HCl/Acetaminophen (Percocet 5-325 MG Tablet) 5 MG-325 MG TABLET 1 TAB PO BID PRN PAIN Prednisone 10 MG TABLET 1 TAB PO DAILY KIDNEYS (Reported) Sevelamer Carbonate (Renvela) 800 MG TABLET 1 TAB PO TIDWM KIDNEYS (Reported) Sodium Bicarbonate 325 MG TABLET 1 TAB PO BID KIDNEYS (Reported) Tramadol HCl 50 MG TABLET 1 TAB PO BIDP PRN PAIN (Reported) Vitamin B Complex (B Complex) 1 EACH TABLET 1 TAB PO DAILY SUPPLEMENT ( Reported) Warfarin Sodium (Coumadin) 5 MG TABLET 1 TAB PO DAILY BLOOD THINNER (Reported ) DOSE ACCORDING TO INR Past History Travel History Traveled to [place] past 21 day No Medical History Blood Transfusion Hx: Yes Neurological: NONE EENT: NONE Cardiovascular: PVD, DVT Respiratory: pneumonia Gastrointestinal: Crohn's disease Hepatic: NONE Renal: nephrolithiasis, CKD Musculoskeletal: VASCULAR OCCLUSION RIGHT LEG RIGHT PATELLA FRACTURE WITH orif NON HEALING WOUNDS R. TOE AMPUTATIONS Psychiatric: NONE Endocrine: diabetes Blood Disorders: anemia, coagulopathy, DVT (RUE and RLE), antiphosphlipid syndrome Cancer(s): NONE CARTON WRAPPER/Reproductive: NONE History of MRSA: No History of VRE: No History of CDIFF: No Isolation History: Contact Surgical History Surgical History: colon resection, knee replacement (left), LEFT HIP ORIF status post right leg bypass status post right patellar ORIF status post right TMA status post lithotripsy and stent placements Family History Relations & Conditions If Any: FATHER Antiphospholipid syndrome FH: diabetes mellitus MOTHER FH: Crohn's disease Psychosocial History Where Do You Live? Home Who Do You Live With? spouse Services at Home: None Primary Language: Sri [place] Smoking Status: Former Smoker ETOH Use: denies use Illicit Drug Use: denies illicit drug use Functional Ability ADLs Independent: dressing, eating, toileting, bathing. Ambulation: walker IADLs Needs Assist: shopping, housework, finances, food prep, telephone, transportation, medication admin. Review of Systems Review of Systems All Other Systems: Reviewed and Negative Exam & Diagnostic Data Last 24 Hrs of Vital Signs/I&O Vital Signs Date Time Temp Pulse Resp B/P Pulse O2 O2 Flow FiO2 Ox Delivery Rate 06/26 1200 98 Aerosol 35% Mask 06/26 1131 Nasal 4.0L Cannula 06/26 0800 98.8 92 24 126/60 97 Nasal 4.0L Cannula 06/26 0800 98 Nasal 4.0L Cannula 06/26 0735 98.4 97 20 139/62 96 Nasal 2.0L Cannula 06/26 0632 98.5 87 20 131/67 96 Aerosol 8L Mask 06/26 0501 97.7 95 22 140/63 97 Aerosol 8L Mask 06/26 0350 93 06/26 0315 97 Room Air 06/26 0256 96.9 90 20 136/67 97 Room Air Intake & Output 06/26 1600 06/26 0800 06/26 0000 Intake Total 250 Output Total 400 Balance -150 Intake, IV 250 Intake, Oral 0 Number 2 Bowel Movements Output, Urine 400 Patient 197 lb Weight Physical Exam Other Physical Findings: He is awake and alert in mild respiratory distress, with stridor. He is afebrile. Skin reveals no rash. HEENT exam is negative. Neck is supple with no adenopathy; right IJ double-lumen Mj catheter in place. Lungs bilateral wheezes, with scattered rhonchi and with decreased breath sounds at the left base. Heart regular rhythm with no murmur. Abdomen is soft, nontender with positive bowel sounds. Back no CVA tenderness. Extremities left calf necrotic ulcer, with no surrounding inflammation; chronic swelling of the right upper extremity and right lower extremity; status post right TMA. Neuro is without focality. Last 24 Hours of Lab Results: Laboratory Tests 06/26 06/26 1215 1215 Chemistry Sodium (137 - 145 mmol/L) 140 Potassium (3.5 - 5.1 mmol/L) 4.9 Chloride (98 - 107 mmol/L) 109 H Carbon Dioxide (22 - 30 mmol/L) 14 L Anion Gap (5 - 16) 18 H BUN (9 - 20 mg/dL) 90 H Creatinine (0.7 - 1.2 mg/dL) 4.9 H Estimated GFR (>60 ml/min) 12 L BUN/Creatinine Ratio (7 - 25 %) 18.4 Glucose (65 - 99 mg/dL) 131 H Calcium (8.4 - 10.2 mg/dL) 8.3 L Troponin I (<0.11 ng/ml) 1.11 *H Hematology CBC w Diff NO MAN DIFF REQ WBC (4.8 - 10.8 /CUMM) 8.7 RBC (4.70 - 6.10 /CUMM) 2.97 L Hgb (14.0 - 18.0 G/DL) 8.6 L Hct (42 - 52 %) 27.8 L MCV (80.0 - 94.0 FL) 93.8 MCH (27.0 - 31.0 PG) 29.0 RDW (11.5 - 14.5 %) 19.2 H Plt Count (130 - 400 /CUMM) 123 L MPV (7.4 - 10.4 FL) 9.6 Gran % (42.2 - 75.2 %) 97.4 H Lymphocytes % (20.5 - 51.1 %) 1.3 L Monocytes % (1.7 - 9.3 %) 1.3 L Eosinophils % (0 - 5 %) 0 Basophils % (0.0 - 2.0 %) 0 L PUBS MCHC (33.0 - 37.0 G/DL) 30.9 L Immunology Absolute Granulocytes (1.4 - 6.5 /CUMM) 8.5 H Absolute Lymphocytes (1.2 - 3.4 /CUMM) 0.1 L Absolute Monocytes (0.10 - 0.60 /CUMM) 0.1 L Absolute Eosinophils (0.0 - 0.7 /CUMM) 0 Absolute Basophils (0.0 - 0.2 /CUMM) 0 Serology Hepatitis A IgM Ab (NONREACTIVE) Cancelled NONREACTIVE Hep Bs Antigen (NONREACTIVE) Cancelled NONREACTIVE Hep Bs Antibody (NONREACTIVE) Pending Hep B Core IgM Ab Conf (NONREACTIVE) Cancelled NONREACTIVE Hepatitis C Antibody (NONREACTIVE) Cancelled NONREACTIVE 06/26 06/26 0706 0606 Blood Gas pH (7.35 - 7.45 PH) 7.37 pCO2 (35 - 45 TORR) 17 L pO2 (80 - 100 TORR) 116 H HCO3 (21 - 28 MEQ/L) 9.7 L ABG O2 Sat (Measured) (>96.0 %) 98.0 P-50 (Temp Corrected) N Carboxyhemoglobin (1.5 - 5.0 %) 0.1 L O2 Concentration % .28 Temperature (97.0 - 100.0 FARH) 98.5 O2 Delivery Method A/M Miscellaneous Phlebotomy Draw Site LEFT RADIAL Urines Urinalysis MOD H Urine Color (YEL,AMB,STR) YEL Urine Clarity (CLEAR) CLEAR Urine pH (5.0 - 8.0) 6.0 Ur Specific [place] (1.001 - 1.035) 1.025 Urine Protein (NEG,<30 MG/DL) 100 H Urine Ketones (NEG) NEG Urine Nitrite (NEG) NEG Urine Bilirubin (NEG) NEG Urine Urobilinogen (0.1 - 1.0 EU/dl) 0.2 Ur Leukocyte Esterase (NEG) NEG Ur Microscopic SEDIMENT EXAMINED Urine RBC (0 - 5 /HPF) 10-15 H Urine WBC (0 - 2 /HPF) RARE Urine Hemoglobin (NEG) SMALL H Urine Glucose (N MG/DL) NEG 06/26 0355 Chemistry Sodium (137 - 145 mmol/L) 142 Potassium (3.5 - 5.1 mmol/L) 4.7 Chloride (98 - 107 mmol/L) 109 H Carbon Dioxide (22 - 30 mmol/L) 18 L Anion Gap (5 - 16) 16 BUN (9 - 20 mg/dL) 89 H Creatinine (0.7 - 1.2 mg/dL) 5.0 H Estimated GFR (>60 ml/min) 11 L BUN/Creatinine Ratio (7 - 25 %) 17.8 Glucose (65 - 99 mg/dL) 99 Calcium (8.4 - 10.2 mg/dL) 8.5 Magnesium (1.6 - 2.3 mg/dL) 1.5 L Total Bilirubin (0.2 - 1.3 mg/dL) 0.6 AST (17 - 59 U/L) 29 ALT (21 - 72 U/L) 43 Alkaline Phosphatase (< 127 U/L) 100 Troponin I (<0.11 ng/ml) 0.95 *H Dyx-O-Xluqffxyjas Pept (<125 pg/mL) 56188 H Total Protein (6.3 - 8.2 g/dL) 5.9 L Albumin (3.5 - 5.0 g/dL) 3.0 L Globulin (1.9 - 4.2 gm/dL) 2.9 Albumin/Globulin Ratio (1.1 - 2.2 %) 1.0 L Coagulation PT (9.4 - 12.5 SEC) 13.8 H INR (0.90 - 1.17) 1.31 H Hematology CBC w Diff NO MAN DIFF REQ WBC (4.8 - 10.8 /CUMM) 10.4 RBC (4.70 - 6.10 /CUMM) 3.12 L Hgb (14.0 - 18.0 G/DL) 9.1 L Hct (42 - 52 %) 29.2 L MCV (80.0 - 94.0 FL) 93.6 MCH (27.0 - 31.0 PG) 29.3 RDW (11.5 - 14.5 %) 19.3 H Plt Count (130 - 400 /CUMM) 124 L MPV (7.4 - 10.4 FL) 8.5 Gran % (42.2 - 75.2 %) 84.4 H Lymphocytes % (20.5 - 51.1 %) 3.9 L Monocytes % (1.7 - 9.3 %) 11.5 H Eosinophils % (0 - 5 %) 0.1 Basophils % (0.0 - 2.0 %) 0.1 PUBS MCHC (33.0 - 37.0 G/DL) 31.3 L Immunology Absolute Granulocytes (1.4 - 6.5 /CUMM) 8.8 H Absolute Lymphocytes (1.2 - 3.4 /CUMM) 0.4 L Absolute Monocytes (0.10 - 0.60 /CUMM) 1.2 H Absolute Eosinophils (0.0 - 0.7 /CUMM) 0 Absolute Basophils (0.0 - 0.2 /CUMM) 0 Last 24 Hours of [place] Results: Blood cultures 2 June 26 pending Urine strep pneumo antigen and Legionella antigen June 26 negative Urine culture June 26 pending Diagnostic Data Recent Imaging Findings: Chest x-ray June 26, personally reviewed, reveals a left lower lobe opacification. X-ray of the soft tissues of the neck June [address] of the chest June 26 reveals left lower lobe consolidation, right greater than left pleural effusions, and multifocal airspace disease. Assessment/Plan Assessment/Plan Impression: This is a 75-year-old man with diabetes, antiphospholipid syndrome, chronic renal insufficiency, Crohn's disease, chronic left calf necrotic ulcer, hospitalized at [facility] 2 months prior to admission with hoarseness, stridor and supraglottic edema and treated for pneumonia, hospitalized at [facility] one month prior to admission for debridement of the left calf necrotic ulcer, treated with multiple courses of antibiotics over the past few months, admitted early this morning with increasing shortness of breath, stridor and altered mental status, found to be afebrile with a normal white blood cell count, but with chest x-ray and CT scan revealing a left lower lobe density and with evidence on ENT exam of bilateral vocal cord paralysis. Though he has no fever or leukocytosis the left lower lobe density does raise concern for pneumonia and, given his history of recent choking, aspiration seems likely. His renal function has worsened and, due to concern that his altered mental status may be secondary to uremia, dialysis is to be initiated today. Suggestion: 1. Would attempt to induce sputum for culture 2. Further management regarding his vocal cord paralysis per ENT 3. Redose with Vancomycin 1 g IV 1 after dialysis today and check Vancomycin random level in the a.m. 4. Re-dose with Ceftazidime 1 g IV 1 after dialysis today Consult Acknowledgment - Thank you for your consult request.
--- NOTE | 2016-06-26 16:35 | Event Note ---
Event Note Event Note: I spoked with the answering service for about elevated Troponin 0.95 then 1.11, I left a message about troponin trending up for . Answering service confirmed that he is aware about the patient and he is coming to see him after clinic. I also Talked to over the phone (because the answering service informed me that he was covering earlier today for ), I discussed with the patient and he agreed with IV heparin, however also confirmed that will see the patient after his clinic today. The reason why i started IV heparin is because patient has a hx. of antiphospholipid syndrome, chronic DVT of Rt. LE, he was on coumadin which is on hold for Mj cath. placement (Which already placed), and we also wanted to confirmed that no debridement needed for his Lt. LE chronic ulcer, Vascular surgery was contacted by international logistics coordinator and they are not planing for debridement in the near future. Will discuss at am with wastewater treatment plant chemist, oncologist and our attending about the needs of IV heparin. Currently his INR is 1.31
--- NOTE | 2016-06-26 16:40 | NUR ---
Patient traveled to with this RN for placement of a tunneled catheter for dialysis. Pt tolerated procedure well and vitals remained stable.
--- NOTE | 2016-06-26 16:41 | NUR ---
Patient was bladder scanned for 300mls at 1600. Dr. De León notified since patient did not void since arrival to [facility] from ER. Can catheter was placed at 1600 and 400mls of clear yellow urine was drained. Dialysis nurse now at the bedside. Patient to have CT scan of neck with contract at 1999. Vitals stable. Will continue to monitor patient.
--- NOTE | 2016-06-26 19:14 | Event Note ---
Event Note Event Note: Mr. Marvin was found to have frequent PVCs after dialysis at 6 pm. ECG did not show any changes. ICU bundle is sent in addition to the scheduled 3rd draw of troponin at 6 pm. I also talked to Dr. Sarah on the phone, he approved current management with IV heparin and a beta-randy. We also added aspirin. * F/U troponin and electrolytes at 6 pm * If the patient develops chest pain, please check ECG and troponin and Call Dr. Sarah
--- NOTE | 2016-06-26 20:00 | NUR ---
PATIENT CONVERSING WITH . MONITOR SINUS RHYTHM. DG=839/70.NASAL O2 ON AT 4L,SAT=97%.PETEY CATH RCW INTACT. HEPARIN DRIP CONTINUES. SPOKE WITH REGARDING HER CONCERNS WITH THE CAT SCAN SCHEDULED FOR 2029. WILL DO AT 0600.
--- NOTE | 2016-06-26 20:30 | Event Note ---
Event Note Event Note: Called to talk to Mrs. Marvin, who expressed concerns about the patient's condition after getting IV contrast for CAT scan overnight. She was extremely worried the patient would start to have difficulty breathing etc. She also felt that he looked extremely well after his dialysis today and she would not want him to have a bad night. The decision was made to postpone the CAT scan to tomorrow morning( to be done before dialysis). CAT scan (7400) has been informed regarding the change in schedule and the need to get the test done early in the morning, so the patient can get dialysed, later in the day. Flattening of the troponin curve noted (0.95->0.11->0.12). Talked to Dr. Childers at 9:45 PM. As the patient is asymptomatic with no new EKG changes and is hemodynamically stable on Heparin gtt, the decision was made not to trend any further troponins (can be done as an add on, but need not be done to trend it, per se). Patient will be seen by their service in the AM for a formal consultation.
[2016-06-26 22:52] LABS: PTT 50 SEC (25-37)
[2016-06-27] VITALS: BP 160/80
--- NOTE | 2016-06-27 | NUR ---
PATIENT PLACED ON SIZEWISE LOW BOY BED.PATIENT DROWSY BUT AROUSABLE. ABLE TO TELL ME HE IS IN [facility] BUT FALLS READILY OFF TO SLEEP.MONITOR CONTINUES SINUS RHYTHM AT RATE OF 90. AFEBRILE AT 98. NASAL O2 AT 2L WITH SATS OF 99% LUNG SOUNDS DIMINISHED AT BASES.HEPARIN DRIP ADJUSTED ACCORDING TO PROTOCOL FOR PTT OF 50. PRESENTLY AT 24 ML/HR OR 13.4 UNITS/KG/HR.PETEY CATH RCW INTACT.URINE OUTPUT 37 ML LAST HOUR VIA BRENNAN CATHETER.
--- NOTE | 2016-06-27 01:03 | Admission Certification ---
Admission Certification Certification Statement - As attending physician, I certify that at the time of - admission, based on clinical presentation, severity of - symptoms, need for further diagnostic testing and - therapeutic interventions, and risk of adverse outcomes - without in-hospital treatment, in my clinical assessment, - this patient requires an acute hospital stay for a minimum - of two nights or longer. I have also considered psychsocial - factors such as support system, advanced age, financial - issues, cognitive issues, and failed out-patient treatments, - past re-admission history, safety of patient, and lack of - compliance as applicable. Specific rationale supporting this admission is: Respiratory distress
[2016-06-27 05:56] LABS: PTT 78 SEC (25-37)
--- NOTE | 2016-06-27 07:35 | PN- Resident CRCU ---
Subjective HPI/CRCU Issues: Mr. Marvin is a 75-year-old male with PMH of antiphospholipid antibody syndrome Wwith chronic DVT, hypertension, diabetes, CKD stage V, severe peripheral vascular disease, left lower extremity necrotizing nonhealing ulcers status post debridement by Dr. pretty, crohns disease status post bowel resection and chronic prednisone treatment, kidney stones status post lithotripsy, transmetatarsal amputation of the right foot, femoropopliteal bypass surgery, was brought in by ambulance from home for worsening of SOB, hoarseness and stridor for 2 days. CRCU issues: 1- Hoarseness and stridor 2- Elevated troponin, with no EKG changes, on IV heparin 3- CKD stage V, s/p tunneled cath. insertion on 06/26/16, started on dialysis 4- Pneumonia based on chest CT, failed attempt for sputum culture, currently on vanc/caftaz for possible aspiration PNA 5- Anemia (CKD) and APL syndrome (on coumadin) 24 Hour Events: Patient underwent Mj cath insertion yesterday evening and had dialysis, also his second dose of Vanc and Ceftaz after dialysis. Still hoarseness and unable to speak, stridor present. Saturating on 2L O2 through [place]. CT scan of the neck with IV contrast was done this AM. He is also started on IV heparin, aspirin and continued beta-randy. Objective Vital Signs & I&O Last 8 Hrs of Vitals and I&O: T 98-98.8 HR 85-92, SR RR 16-22 BP 130/60-160/80 SO2 99-100% on 2L NC I's 734, O's 1005 Exam General Appearance: well developed/nourished, alert Head: atraumatic, normal appearance Ears, Nose, Throat: normal pharynx, normal ENT inspection Neck: normal inspection, supple Respiratory: chest non-tender, lungs clear, stridor Cardiovascular: regular rate/rhythm, edema Gastrointestinal: normal bowel sounds, soft, non-tender Extremities: normal inspection, normal capillary refill, normal range of motion Cranial Nerves: normal hearing, PERRL, 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 verbally Skin: necrotic ulcer on left lower leg, 3+ piting edema, transmetatarsal amputation of the right foot Current Medications: Current Medications Sig/Kailash Start time Last Medication Dose Route Stop Time Status Admin Acetaminophen 1,000 MG ONCE ONE 06/27 1000 DC N/A 1 UNIT IV 06/27 1014 Albuterol Sulfate 3 ML EVERY 4 HRS/AWAKE 06/26 2000 AC 06/27 INH 0855 Albuterol Sulfate 3 ML Q4H PRN 06/26 0815 AC 06/26 INH 1128 Aspirin 81 MG DAILY 06/26 1938 AC PO Calcitriol 0.25 MCG DAILY 06/26 1000 DC PO Carvedilol 25 MG BID 06/26 1000 AC PO Ceftazidime 1,000 MG Q24 06/27 1000 AC IV Ceftazidime 1,000 MG ONCE ONE 06/26 2000 DC 06/26 IV 06/26 2001 2222 Dexamethasone 6 MG Q8 06/26 1400 AC 06/27 Dextrose/Water 50 ML IV 0544 Epoetin Ludwig 6,000 UNIT ONCE ONE 06/26 1600 DC 06/26 IV 06/26 1601 1733 Heparin Sodium 5,000 UNIT .STK-MED ONE 06/27 0012 DC (Porcine) IV 06/27 0013 Heparin Sodium 2,670 UNIT ONCE ONE 06/26 2350 DC 06/27 (Porcine) IV 06/26 2351 0119 Heparin Sodium 1 UNIT .STK-MED ONE 06/26 1537 DC (Porcine) IV 06/26 1538 Heparin Sodium 25,000 UNIT Q24H 06/26 1430 AC 06/26 (Porcine) IV 1618 Sodium Chloride 500 ML Insulin Aspart 0 TIDAC 06/26 0800 DC SC Insulin Human Regular 0 Q6 06/26 1253 AC 06/27 SC 0544 Lidocaine 1 ML .STK-MED ONE 06/26 1537 DC IM 06/26 1538 Lidocaine/Epinephrine 1 ML .STK-MED ONE 06/26 1537 DC ID 06/26 1538 Magnesium Sulfate 1 GM Q2H 06/26 0815 DC 06/26 Dextrose/Water 100 ML IV 06/26 1214 0945 Sevelamer Carbonate 800 MG WITH MEALS 06/26 0800 AC PO Sodium Bicarbonate 325 MG BID 06/26 1000 AC PO Vancomycin HCl 750 MG ONCE ONE 06/27 1200 AC Sodium Chloride 250 ML IV 06/27 1259 Vancomycin HCl See Dose DAILY PRN 06/27 1015 AC Insts (1) IV Vancomycin HCl 1,000 MG ONCE ONE 06/26 2000 DC 06/26 Sodium Chloride 250 ML IV 11/30 2059 2302 Vitamin A/Vitamin D 1 CHAITANYA BID 06/26 1553 AC 06/26 TOP 2234 Zinc Oxide 1 CHAITANYA BID 06/26 1354 AC 06/26 TOP 2234 Dose Instructions: (1)Vancomycin HCl: DOSE BASED ON VANCO LEVELS PRIOR TO DIALYSIS Impression/Plan Impression/Problem List Impression: Mr. 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 Pretty, crohns disease status post bowel resection and chronic prednisone treatment, kidney stones status post lithotripsy, right toes amputation, femoropopliteal bypass surgery was brought in by ambulance from home early in the morning for worsening of breathing, hoarseness, stridor for 2 days. Vitals on admission. Afebrile 96.9, heart rate 90, respiratory rate 20, blood pressure 136/67, placed on high flow oxygen Ventimask 8 L saturating at 92%. Pertinent labs on admission-CBC 10.4, H&H 9.1 and 29.2, platelets 124. INR subtherapeutic 1.31 on admission. Sodium 142, potassium 4.7, BUN 89, creatinine 5, baseline creatinine 4.5. Troponins elevated on admission 0.95 with no EKG changes. Normal sinus rhythm, rate 94, QTC prolonged at 521, no acute ST-T wave changes. Chest x-ray left lung opacification suggestive of pneumonia. Soft tissue neck x-ray was normal. No evidence of narrowing or swelling. CT CHEST- Right greater than left bilateral pleural effusions. Left lower lobe consolidation concerning for pneumonia. 4.5 cm complex left renal cyst. Recommendation is for correlation with renal ultrasound for further tissue characterization. Patient was given IV vancomycin and ceftaz in the emergency room, 1 dose of Decadron was given. Hoarseness and stridor Patient presented with worsening hoarseness, intermittent stridor, difficulty breathing, use of accessory respiratory muscles. He was found to be lethargic but arousable in the emergency room. He is apneic in between. Significant history of supraglottic edema in April 2016 with hoarseness and stridor. Treated with tapering doses of steroids. MRA and laryngoscopy were normal. Records from [facility] were obtained today which had suggested infectious or inflammatory process causing subglottic edema. possible differentials include laryngitis, vocal fold polyps, laryngeal cancer, vocal cord palsy, angioedema. Soft tissue neck x-ray-Soft tissue films of the neck demonstrate a normal larynx , pharynx and upper trachea. No soft tissue swelling or opaque foreign body is demonstrated. There is no hypopharyngeal distention. * Provide supplemental oxygen * Low threshold for intubation, may need tracheostomy * ENT doctor on board * Started Decadron 6 mg every 8 hours * Needs laryngoscopy * ABGs were normal * If patient becomes acidotic will start him on BiPAP Pneumonia (Healthcare associated vs. aspiration pneumonia) Patient presented with worsening shortness of breath. However denied fever, chills, cough, sputum production, chest pain. He was afebrile. Normal WBC count. Chest x-ray and CAT scan showed left lung consolidation and pneumonia. Of note patient was treated for pneumonia at [facility] in April 2016. He was given antibiotics. * Saturating on 2L O2 through [place] * Labored breathing and apneic in between. * Patient was given IV ceftaz and IV vancomycin in the emergency room * Consult infectious diseases was placed, followed ID recs, continue with Vac/ ceftaz given possibility of aspiration pneumonia, prior cultures of the wound growing pseudomonas Necrotizing nonhealing ulcers on left lower extremity Patient has chronic nonhealing necrotizing ulcers on left lower extremity since many years. He was following as an outpatient. He underwent wound debridement in May 2016 by at [facility]. Followed on 06/25/2016. Venogram was done which was normal. Recommended second debridement. * Dr. Pretty on board, we called the office and asked for possible need for debridement. Patient will not need another debridement this week. dressing is changed based on instructions from Dr. Pretty. Subtherapeutic INR Patient has chronic right upper extremity DVT who is on Coumadin. * Coumadin was on hold for possible wound debridement * INR 1.31 * We kept coumadin on hold and started IV heparin given the elevated troponins Chronic kidney disease Chronic kidney disease stage V. Patient looked confused in the emergency room possibly from uremia. Follows with Dr. Kruse as outpatient, supposed to go for appointment tomorrow * Dr. Fuentes saw the patient, recommended dialysis through Mj Cath today, hepatitis B panel, Epogen 3 times a week with dialysis * Creatinine 5 on admission, baseline creatinine 4.5. today 3.8 post-dialysis. Acute coronary syndrome * Elevated troponins on admission 0.95, went up to 1.11 and 1.12, came down to 0.86 this AM * No acute EKG changes on admission-sinus rhythm, rate 94, QTC 521, no acute ST- T wave changes, repeat ECGs remained unchanged * Possibly from demand ischemia and shortness of breath, pneumonia. Serial troponins and EKGs * Denies any chest pain, racing of heart, diaphoresis, nausea, vomiting. * No cardiac history in the past. * Stress test was normal * Recent echo in 2015 normal ejection fraction * Follows Dr. Cohn grey stock recorder as an outpatient, Echo- may 2016 showed normal ejection fraction. Stress test was normal. * Followed Dr. Flo michael today, ECHO ordered will follow. Chronic lower extremity swelling * Patient takes Lasix at home * Lasix was on hold for now * Patient underwent dialysis again today Hypertension * Patient is on amlodipine, carvedilol, hydralazine at home * We held amlodipine and hydralazine for now * Continued carvedilol Diabetes mellitus Accu-Cheks Insulin sliding scale, changed to NPO insulin Levemir 13 units daily Chronic kidney disease * Keep calcitriol, sodium citrate, sodium bicarbonate on hold * Continued renvela * Continue supplements vitamin D, B12, iron sulfate. Hypomagnesemia Replete magnesium Crohn's disease Patient is on chronic prednisone treatment 10 mg daily We'll hold prednisone in the hospital as patient is on Decadron. DVT prophylaxis subcutaneous Lovenox Diet Nothing by mouth, swallow evaluation unsuccessful again today, ordered modified barium swallow, started D5W-1/2NS 50 cc/h Pain Mild to moderate pain pathway Tylenol Full code Problem List: 1. Supraglottic edema 2. End stage renal disease 3. Left leg cellulitis 4. NSTEMI (non-ST elevated myocardial infarction) 5. Antiphospholipid antibody syndrome 6. Crohn disease 7. Wound infection 8. Chronic deep vein thrombosis (DVT) Pain Ratin Tomorrow's Labs & Rationales: cbc (anemia, possible pneumonia), BEP (CKD on dialysis) Plan DVT/Prophylaxis: mechanical, pharmacological
[2016-06-27 08:00] VITALS: BP 130/70
--- NOTE | 2016-06-27 08:17 | Cons- Cardiology ---
General Information and HPI Consulting Request Date of Consult: 06/27/16 Requested By: DEBBIE SPENCER MD Reason for Consult: Pos Trop Source of Information: old records Exam Limitations: unable to give history, patient's age, clinical condition, confusion History of Present Illness: General Information and HPI The patient is a 75 year old M who presented with a patient stated chief complaint of difficulty breathing, hoarseness and stridor. Source of Information: family, old records Exam Limitations: unable to give history, clinical condition, confusion, poor historian History of Present Illness: This is a 75-year-old male with past medical history significant for antiphospholipid antibody syndrome, chronic right upper extremity deep vein thrombosis on Coumadin daily, hypertension, diabetes, chronic kidney disease stage V, severe peripheral vascular disease, left lower extremity nectrotising nonhealing ulcers status post debridement by Dr. pretty, crohns disease status post bowel resection and chronic prednisone treatment, kidney stones status post lithotripsy, right toes amputation, femoropopliteal bypass surgery was brought in by ambulance from home early in the morning for worsening of breathing, hoarseness, stridor for 2days. In the emergency room he desaturated to 88% on room air and he was placed on high flow oxygen with Ventimask 8 L saturating at 92%. Patient is not alert, awake, oriented to time place and person. He was drowsy and confused. Unable to give much history. Most of the history was provided by his . According to his , patient was fine until Friday, then she started noticing shortness of breath, which has been progressively worsening with on and off cough, not associated with sputum production. Last night he was more confused and couldn't stand without any support. He has been having hoarseness and intermittent stridor for 2 days. Off note patient was admitted at [facility] in April for hoarseness and stridor and he was found to have supraglottic edema and was treated with Decadron. He underwent laryngoscopy and MRA neck which were normal. He was also treated for pneumonia at the same time. Patient was admitted at [facility] in May 2016 for fever, altered mental status, supratherapeutic INR. He was treated with antibiotics for left lower extremity nonhealing ulcer and cellulitis. His troponins were elevated with no EKG changes at that time. Echo- may 2016 showed normal ejection fraction. Stress test was normal. Follows Dr. 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 He follows Dr. Pretty, vascular surgeon as an outpatient. Wound debridement was done during last admission at [facility]. And wound VAC was placed at that time. He went for an appointment with Dr. pretty on 06/25/16 and left lower extremity venogram was done which showed normal. He recommended second debridement for nonhealing chronic ulcers on lle He was supposed to follow Dr. Kruse licensed investment sales assistant for chronic kidney disease stage V on 06/27/2016. He follows Eddi Hilton MD occupational health and safety adviser as an outpatient. According to his , he denies fever, chills, sputum production, chest pain, racing of heart, headache, dizziness, lightheadedness, weakness or sensory changes, gait changes, vision changes, nausea, vomiting, abdominal pain, change in bladder or bowel habits. He denies any sick contacts, travel history. He uses walker for ambulation. He denies smoking, alcohol intake, illicit drug abuse. He quitted smoking 40 years ago. He does choke on Food once in a while. I went through his office records as well as his hospital records. The above HPI was obtained by the house staff. Patient was in no condition to give me this history. He appears quite comfortable at the moment. His office records indicate that he was admitted as far back as 2014 for noncardiac issues and had a positive troponin. This pattern is continued to at least another admission. Again this admission is precipitated by noncardiac issues but he has a positive troponin without change in L echocardiogram which showed sinus rhythm with bifascicular block. Allergies/Medications Allergies: Coded Allergies: Sulfa (Sulfonamide Antibiotics) (Mild, HIVES 06/15/16) Home Med List: Amlodipine Besylate 10 MG TABLET 1 TAB PO DAILY BP (Reported) Calcitriol (Rocaltrol) 0.25 MCG CAPSULE 1 CAP PO DAILY KIDNEYS (Reported) Calcium Carbonate/Vitamin D3 (Os-Vishal 500+D3 Caplet) 500 MG-600 TABLET 1 TAB PO TID SUPPLEMENT (Reported) Carvedilol 25 MG TABLET 1 TAB PO BID HEART (Reported) Citric Acid/Sodium Citrate (Cytra-2 Oral Solution) 473 ML SOLUTION 15 ML PO BID KIDNEYS (Reported) Cyanocobalamin (Vitamin B-12) 1,000 MCG TABLET 1 TAB PO DAILY SUPPLEMENT ( Reported) Ferrous Sulfate 325 MG (65 MG IRON) TABLET 1 TAB PO TID SUPPLEMENT (Reported) Furosemide 80 MG TABLET 1 TAB PO BID LEG SWELLING (Reported) Hydralazine HCl 50 MG TABLET 1 TAB PO BID HEART (Reported) Insulin Aspart (Novolog) 100 UNIT/ML VIAL DM (Reported) Insulin Detemir (Levemir) 100 UNIT/ML VIAL 13 UNITS SC DAILY QAM DM Multivit-Min/FA/Lycopen/Lutein (Centrum Silver Tablet) 1 EACH TABLET 1 TAB PO DAILY SUPPLEMENT (Reported) Oxycodone HCl/Acetaminophen (Percocet 5-325 MG Tablet) 5 MG-325 MG TABLET 1 TAB PO BID PRN PAIN Prednisone 10 MG TABLET 1 TAB PO DAILY KIDNEYS (Reported) Sevelamer Carbonate (Renvela) 800 MG TABLET 1 TAB PO TIDWM KIDNEYS (Reported) Sodium Bicarbonate 325 MG TABLET 1 TAB PO BID KIDNEYS (Reported) Tramadol HCl 50 MG TABLET 1 TAB PO BIDP PRN PAIN (Reported) Vitamin B Complex (B Complex) 1 EACH TABLET 1 TAB PO DAILY SUPPLEMENT ( Reported) Warfarin Sodium (Coumadin) 5 MG TABLET 1 TAB PO DAILY BLOOD THINNER (Reported ) DOSE ACCORDING TO INR Current Medications: Current Medications Sig/Kailash Start time Last Medication Dose Route Stop Time Status Admin Albuterol Sulfate 3 ML EVERY 4 HRS/AWAKE 06/26 2000 AC 06/26 INH 2155 Albuterol Sulfate 3 ML Q4H PRN 06/26 0815 AC 06/26 INH 1128 Aspirin 81 MG DAILY 06/26 1938 AC PO Calcitriol 0.25 MCG DAILY 06/26 1000 DC PO Carvedilol 25 MG BID 06/26 1000 AC PO Ceftazidime 1,000 MG ONCE ONE 06/26 2000 DC 06/26 IV 06/26 2001 2222 Dexamethasone 6 MG Q8 06/26 1400 AC 06/27 Dextrose/Water 50 ML IV 0544 Epoetin Ludwig 6,000 UNIT ONCE ONE 06/26 1600 DC 06/26 IV 06/26 1601 1733 Heparin Sodium 2,670 UNIT ONCE ONE 06/26 2350 DC 06/27 (Porcine) IV 06/26 2351 0119 Heparin Sodium 1 UNIT .STK-MED ONE 06/26 1537 DC (Porcine) IV 06/26 1538 Heparin Sodium 25,000 UNIT Q24H 06/26 1430 AC 06/26 (Porcine) IV 1618 Sodium Chloride 500 ML Insulin Aspart 0 TIDAC 06/26 0800 DC SC Insulin Human Regular 0 Q6 06/26 1253 AC 06/27 SC 0544 Lidocaine 1 ML .STK-MED ONE 06/26 1537 DC IM 06/26 1538 Lidocaine/Epinephrine 1 ML .STK-MED ONE 06/26 1537 DC ID 06/26 1538 Magnesium Sulfate 1 GM Q2H 06/26 0815 DC 06/26 Dextrose/Water 100 ML IV 06/26 1214 0945 Sevelamer Carbonate 800 MG WITH MEALS 06/26 0800 AC PO Sodium Bicarbonate 325 MG BID 06/26 1000 AC PO Vancomycin HCl 1,000 MG ONCE ONE 06/26 2000 DC 06/26 Sodium Chloride 250 ML IV 06/26 2059 2302 Vitamin A/Vitamin D 1 CHAITANYA BID 06/26 1553 AC 06/26 TOP 2234 Zinc Oxide 1 CHAITANYA BID 06/26 1354 AC 06/26 TOP 2234 Past History Travel History Traveled to [place] past 21 day No Medical History Blood Transfusion Hx: Yes Neurological: NONE EENT: NONE Cardiovascular: PVD, DVT Respiratory: pneumonia Gastrointestinal: Crohn's disease Hepatic: NONE Renal: nephrolithiasis, CKD Musculoskeletal: VASCULAR OCCLUSION RIGHT LEG RIGHT PATELLA FRACTURE WITH orif NON HEALING WOUNDS R. TOE AMPUTATIONS Psychiatric: NONE Endocrine: diabetes Blood Disorders: anemia, coagulopathy, DVT (RUE and RLE), antiphosphlipid syndrome Cancer(s): NONE SAP CRM DEVELOPER/Reproductive: NONE Surgical History Surgical History: colon resection, knee replacement (left), LEFT HIP ORIF status post right leg bypass status post right patellar ORIF status post right TMA status post lithotripsy and stent placements Family History Relations & Conditions If Any: FATHER Antiphospholipid syndrome FH: diabetes mellitus MOTHER FH: Crohn's disease Psychosocial History Where Do You Live? Home Who Do You Live With? spouse Services at Home: None Primary Language: Iraqi Smoking Status: Former Smoker ETOH Use: denies use Illicit Drug Use: denies illicit drug use Functional Ability ADLs Independent: dressing, eating, toileting, bathing. Ambulation: walker IADLs Needs Assist: shopping, housework, finances, food prep, telephone, transportation, medication admin. ECHO Results (as available) Date of last Echo 12/11/15 EF% 65 Report: Normal left ventricular systolic function with mild mitral regurgitation. Exam & Diagnostic Data Vital Signs and I&O Vital Signs Date Time Temp Pulse Resp B/P Pulse O2 O2 Flow FiO2 Ox Delivery Rate 06/27 0400 100 Nasal 2.0L Cannula 06/27 0000 98.0 90 16 160/80 99 Nasal 2.0L Cannula 06/27 0000 99 Nasal 2.0L Cannula 06/26 2000 97 Nasal 4.0L Cannula 06/26 1835 99 Nasal 4.0L Cannula 06/26 1600 98.1 94 24 132/64 97 Nasal 4.0L Cannula 06/26 1600 98 Nasal 4.0L Cannula 06/26 1200 98 Aerosol 35% Mask 06/26 1131 Nasal 4.0L Cannula Intake & Output 06/27 0806/27 0000 06/26 1600 06/26 0806/26 0000 Intake Total 434 244 240 250 Output Total 199 605 400 Balance 235 -361 240 -150 Intake, IV 434 244 240 250 Intake, Oral 0 Number 2 Bowel Movements Output, Urine 199 605 400 Patient 197 lb Weight Physical Exam: General exam patient comfortable sleeping arousable admits to no complaints Head normocephalic/atraumatic Eyes sclera anicteric conjunctiva showed mild pallor extraocular muscles were normal neck no jugular venous distention no thyroid masses no palpable nodes Chest lungs were clear bilaterally Heart regular rhythm, 1/6 systolic murmur Abdomen soft nontender no organomegaly Extremities 2+ edema in bilateral varicosities Neurological no gross motor deficits Labs/Avtar Results: Laboratory Tests 06/27 06/26 06/26 06/26 06/26 0525 2215 1800 1611 1215 Chemistry Sodium (137 - 145 mmol/L) 139 139 142 Potassium (3.5 - 5.1 mmol/L) 4.2 4.1 4.9 Chloride (98 - 107 mmol/L) 106 103 107 Carbon Dioxide (22 - 30 mmol/L) 20 L 19 L 14 L Anion Gap (5 - 16) 13 17 H 21 H BUN (9 - 20 mg/dL) 62 H 54 H 89 H Creatinine (0.7 - 1.2 mg/dL) 3.8 H 3.0 H 5.1 *H Estimated GFR (>60 ml/min) 16 L 21 L 11 L Glucose (65 - 99 mg/dL) 107 H 130 H 164 H Calcium (8.4 - 10.2 mg/dL) 8.2 L 8.3 L 8.3 L Phosphorus (2.5 - 4.5 mg/dL) 7.7 H 5.7 H 9.9 H Magnesium (1.6 - 2.3 mg/dL) 2.0 1.9 2.0 Iron (49 - 181 ug/dL) 20 L TIBC (261 - 462 ug/dL) 377 Ferritin (17.9 - 464 ng/mL) 144.0 Total Bilirubin (0.2 - 1.3 mg/dL) 0.4 0.5 0.5 AST (17 - 59 U/L) 24 28 25 ALT (21 - 72 U/L) 41 46 44 Troponin I (<0.11 ng/ml) Pending 1.12 *H Albumin (3.5 - 5.0 g/dL) 2.7 L 2.9 L 2.8 L Coagulation APTT (25 - 37 SEC) 78 H 50 H Serology Hepatitis A IgM Ab Cancelled Hep Bs Antigen Cancelled Hep B Core IgM Ab Conf Cancelled Hepatitis C Antibody Cancelled Toxicology Random Vancomycin (ug/ml) 14.4 06/26 06/26 1215 1205 Chemistry Sodium (137 - 145 mmol/L) 140 Cancelled Potassium (3.5 - 5.1 mmol/L) 4.9 Cancelled Chloride (98 - 107 mmol/L) 109 H Cancelled Carbon Dioxide (22 - 30 mmol/L) 14 L Cancelled Anion Gap (5 - 16) 18 H Cancelled BUN (9 - 20 mg/dL) 90 H Cancelled Creatinine (0.7 - 1.2 mg/dL) 4.9 H Cancelled Estimated GFR (>60 ml/min) 12 L BUN/Creatinine Ratio (7 - 25 %) 18.4 Glucose (65 - 99 mg/dL) 131 H Cancelled Calcium (8.4 - 10.2 mg/dL) 8.3 L Cancelled Phosphorus Cancelled Magnesium (1.6 - 2.3 mg/dL) 2.0 Cancelled Total Bilirubin Cancelled AST Cancelled ALT Cancelled Troponin I (<0.11 ng/ml) 1.11 *H Albumin Cancelled Hematology CBC w Diff NO MAN DIFF REQ WBC (4.8 - 10.8 /CUMM) 8.7 RBC (4.70 - 6.10 /CUMM) 2.97 L Hgb (14.0 - 18.0 G/DL) 8.6 L Hct (42 - 52 %) 27.8 L MCV (80.0 - 94.0 FL) 93.8 MCH (27.0 - 31.0 PG) 29.0 RDW (11.5 - 14.5 %) 19.2 H Plt Count (130 - 400 /CUMM) 123 L MPV (7.4 - 10.4 FL) 9.6 Gran % (42.2 - 75.2 %) 97.4 H Lymphocytes % (20.5 - 51.1 %) 1.3 L Monocytes % (1.7 - 9.3 %) 1.3 L Eosinophils % (0 - 5 %) 0 Basophils % (0.0 - 2.0 %) 0 L PUBS MCHC (33.0 - 37.0 G/DL) 30.9 L Immunology Absolute Granulocytes (1.4 - 6.5 /CUMM) 8.5 H Absolute Lymphocytes (1.2 - 3.4 /CUMM) 0.1 L Absolute Monocytes (0.10 - 0.60 /CUMM) 0.1 L Absolute Eosinophils (0.0 - 0.7 /CUMM) 0 Absolute Basophils (0.0 - 0.2 /CUMM) 0 Serology Hepatitis A IgM Ab (NONREACTIVE) NONREACTIVE Hep Bs Antigen (NONREACTIVE) NONREACTIVE Hep Bs Antibody (NONREACTIVE) Pending Hep B Core IgM Ab Conf (NONREACTIVE) NONREACTIVE Hepatitis C Antibody (NONREACTIVE) NONREACTIVE 06/26 06/26 0731 0655 Blood Gas pH (7.35 - 7.45 PH) 7.37 pCO2 (35 - 45 TORR) 17 L pO2 (80 - 100 TORR) 116 H HCO3 (21 - 28 MEQ/L) 9.7 L ABG O2 Sat (Measured) (>96.0 %) 98.0 P-50 (Temp Corrected) N Carboxyhemoglobin (1.5 - 5.0 %) 0.1 L O2 Concentration % .28 Temperature (97.0 - 100.0 FARH) 98.5 O2 Delivery Method A/M Miscellaneous Phlebotomy Draw Site LEFT RADIAL Urines Urinalysis MOD H Urine Color (YEL,AMB,STR) YEL Urine Clarity (CLEAR) CLEAR Urine pH (5.0 - 8.0) 6.0 Ur Specific [place] (1.001 - 1.035) 1.025 Urine Protein (NEG,<30 MG/DL) 100 H Urine Ketones (NEG) NEG Urine Nitrite (NEG) NEG Urine Bilirubin (NEG) NEG Urine Urobilinogen (0.1 - 1.0 EU/dl) 0.2 Ur Leukocyte Esterase (NEG) NEG Ur Microscopic SEDIMENT EXAMINED Urine RBC (0 - 5 /HPF) 10-15 H Urine WBC (0 - 2 /HPF) RARE Urine Hemoglobin (NEG) SMALL H Urine Glucose (N MG/DL) NEG 06/26 06/26 0500 0355 Chemistry Sodium (137 - 145 mmol/L) Cancelled 142 Potassium (3.5 - 5.1 mmol/L) Cancelled 4.7 Chloride (98 - 107 mmol/L) Cancelled 109 H Carbon Dioxide (22 - 30 mmol/L) Cancelled 18 L Anion Gap (5 - 16) Cancelled 16 BUN (9 - 20 mg/dL) Cancelled 89 H Creatinine (0.7 - 1.2 mg/dL) Cancelled 5.0 H Estimated GFR (>60 ml/min) 11 L BUN/Creatinine Ratio (7 - 25 %) 17.8 Glucose (65 - 99 mg/dL) Cancelled 99 Calcium (8.4 - 10.2 mg/dL) Cancelled 8.5 Phosphorus Cancelled Magnesium (1.6 - 2.3 mg/dL) Cancelled 1.5 L Total Bilirubin (0.2 - 1.3 mg/dL) Cancelled 0.6 AST (17 - 59 U/L) Cancelled 29 ALT (21 - 72 U/L) Cancelled 43 Alkaline Phosphatase (< 127 U/L) 100 Troponin I (<0.11 ng/ml) 0.95 *H Nba-S-Siotilazsjr Pept (<125 pg/mL) 69417 H Total Protein (6.3 - 8.2 g/dL) 5.9 L Albumin (3.5 - 5.0 g/dL) Cancelled 3.0 L Globulin (1.9 - 4.2 gm/dL) 2.9 Albumin/Globulin Ratio (1.1 - 2.2 %) 1.0 L Coagulation PT (9.4 - 12.5 SEC) 13.8 H INR (0.90 - 1.17) 1.31 H Hematology CBC w Diff Cancelled NO MAN DIFF REQ WBC (4.8 - 10.8 /CUMM) Cancelled 10.4 RBC (4.70 - 6.10 /CUMM) Cancelled 3.12 L Hgb (14.0 - 18.0 G/DL) Cancelled 9.1 L Hct (42 - 52 %) Cancelled 29.2 L MCV (80.0 - 94.0 FL) Cancelled 93.6 MCH (27.0 - 31.0 PG) Cancelled 29.3 RDW (11.5 - 14.5 %) Cancelled 19.3 H Plt Count (130 - 400 /CUMM) Cancelled 124 L MPV (7.4 - 10.4 FL) Cancelled 8.5 Gran % (42.2 - 75.2 %) 84.4 H Lymphocytes % (20.5 - 51.1 %) 3.9 L Monocytes % (1.7 - 9.3 %) 11.5 H Eosinophils % (0 - 5 %) 0.1 Basophils % (0.0 - 2.0 %) 0.1 PUBS MCHC (33.0 - 37.0 G/DL) Cancelled 31.3 L Immunology Absolute Granulocytes (1.4 - 6.5 /CUMM) 8.8 H Absolute Lymphocytes (1.2 - 3.4 /CUMM) 0.4 L Absolute Monocytes (0.10 - 0.60 /CUMM) 1.2 H Absolute Eosinophils (0.0 - 0.7 /CUMM) 0 Absolute Basophils (0.0 - 0.2 /CUMM) 0 Diagnostic Data EKG Results Sinus rhythm and right bundle branch block, left anterior hemiblock and minor nonspecific lateral ST-T changes CXR Results Left lung opacification concerning for pneumonia. Recommendation is for a followup chest series to be obtained following treatment and/or resolution of symptoms to assure resolution of this appearance. Other Results CT scan of the chest revealed IMPRESSION: Right greater than left bilateral pleural effusions. Left lower lobe consolidation concerning for pneumonia. 4.5 cm complex left renal cyst. Recommendation is for correlation with renal ultrasound for further tissue characterization. Multifocal airspace disease. Assessment/Plan Assessment/Plan In summary this 75-year-old gentleman was admitted with essentially hoarseness of voice and cardiology consult was obtained because of positive troponin. He has the following problems #1 positive troponin. He has no electrocardiographic evidence of myocardial infarction, and his recent echocardiogram in November 2015 revealed normal global left ventricular systolic function. Also had a nuclear stress test in the office and was interpreted as being probably normal. Reviewing his records as far back as April 2015 he came in with noncardiac issues with positive troponin up to 2. This was all felt to be related to supply demand mismatch and probably his renal failure causing elevated troponin is due to lack of washout. I suspect we need to repeat his echocardiogram in order to discern if he has any wall motion abnormalities at this time as well although his past history does not suggest that this is related to a true non-ST segment PR #2 diabetes mellitus #3 hoarseness of voice and supraglottic edema. His recently worked up and [facility] for the same. Current workup is in progress with a CAT scan which is being done today. #4 pneumonia #5 antiphospholipid antibody syndrome. Patient is on currently IV heparin since his Coumadin had to be interrupted for renal dialysis procedure #6 necrotizing ulcer of the leg being treated by vascular surgery #7 end-stage renal disease currently on dialysis #8 hypertension #9 Crohn's disease chronic steroid treatment #10 PAD femoropopliteal bypass #11 chronic right upper extremity thrombosis #12 renal stones status post lithotripsy I would suggest obtaining an echocardiogram. I would probably continue his present medications including carvedilol. He certainly should be on lipid- lowering agents that would be a statin. Lenny inhibitors or angiotensin receptor blockers could be used for hypertension now that he is on dialysis. Also continue his intravenous heparin until his reinitiated on warfarin and he attains therapeutic INR Consult Acknowledgment - Thank you for your consult request.
[2016-06-27 09:01] LABS: PT 19.5 SEC (9.4-12.5)
--- NOTE | 2016-06-27 09:18 | PN- CRCU ---
Subjective HPI/Critical Care Issues: pt seen and examined afebrile hemodynamically stable saturating 99% on 2LNC hoarseness persits o2 requirements improved no cp no n/v/d/c s/p HD catheter s/p HD Objective Current Medications: Current Medications Sig/Kailash Start time Last Medication Dose Route Stop Time Status Admin Albuterol Sulfate 3 ML EVERY 4 HRS/AWAKE 06/26 2000 AC 06/27 INH 0855 Albuterol Sulfate 3 ML Q4H PRN 06/26 0815 AC 06/26 INH 1128 Aspirin 81 MG DAILY 06/26 1938 AC PO Calcitriol 0.25 MCG DAILY 06/26 1000 DC PO Carvedilol 25 MG BID 06/26 1000 AC PO Ceftazidime 1,000 MG ONCE ONE 06/26 2000 DC 06/26 IV 06/26 2001 2222 Dexamethasone 6 MG Q8 06/26 1400 AC 06/27 Dextrose/Water 50 ML IV 0544 Epoetin Ludwig 6,000 UNIT ONCE ONE 06/26 1600 DC 06/26 IV 06/26 1601 1733 Heparin Sodium 5,000 UNIT .STK-MED ONE 06/27 0012 DC (Porcine) IV 06/27 0013 Heparin Sodium 2,670 UNIT ONCE ONE 06/26 2350 DC 06/27 (Porcine) IV 06/26 2351 0119 Heparin Sodium 1 UNIT .STK-MED ONE 06/26 1537 DC (Porcine) IV 06/26 1538 Heparin Sodium 25,000 UNIT Q24H 06/26 1430 AC 06/26 (Porcine) IV 1618 Sodium Chloride 500 ML Insulin Aspart 0 TIDAC 06/26 0800 DC SC Insulin Human Regular 0 Q6 06/26 1253 AC 06/27 SC 0544 Lidocaine 1 ML .STK-MED ONE 06/26 1537 DC IM 06/26 1538 Lidocaine/Epinephrine 1 ML .STK-MED ONE 06/26 1537 DC ID 06/26 1538 Magnesium Sulfate 1 GM Q2H 06/26 0815 DC 06/26 Dextrose/Water 100 ML IV 06/26 1214 0945 Sevelamer Carbonate 800 MG WITH MEALS 06/26 0800 AC PO Sodium Bicarbonate 325 MG BID 06/26 1000 AC PO Vancomycin HCl 1,000 MG ONCE ONE 06/26 2000 DC 06/26 Sodium Chloride 250 ML IV 06/26 2059 2302 Vitamin A/Vitamin D 1 CHAITANYA BID 06/26 1553 AC 06/26 TOP 2234 Zinc Oxide 1 CHAITANYA BID 06/26 1354 AC 06/26 TOP 2234 Vital Signs & I&O Last 24 Hrs of Vitals and I&O: Vital Signs Date Time Temp Pulse Resp B/P Pulse O2 O2 Flow FiO2 Ox Delivery Rate 06/27 0901 99 Nasal 2.0L Cannula 06/27 0400 100 Nasal 2.0L Cannula 06/27 0000 98.0 90 16 160/80 99 Nasal 2.0L Cannula 06/27 0000 99 Nasal 2.0L Cannula 06/26 2000 97 Nasal 4.0L Cannula 06/26 1835 99 Nasal 4.0L Cannula 06/26 1600 98.1 94 24 132/64 97 Nasal 4.0L Cannula 06/26 1600 98 Nasal 4.0L Cannula 06/26 1200 98 Aerosol 35% Mask 06/26 1131 Nasal 4.0L Cannula Intake & Output 06/27 1600 06/27 0800 06/27 0000 Intake Total 434 244 Output Total 199 605 Balance 235 -361 Intake, IV 434 244 Output, Urine 199 605 Exam Other Physical Findings: gen awake and alert heent ncat cvs s1, s2 lungs transmitted, rare rhonchi abd soft bs+ ext without edema Results Last 24 Hrs of Lab Results: Laboratory Tests 06/27/16 0820: PT Cancelled, INR Cancelled 06/27/16 0525: Anion Gap 13, Estimated GFR 16 L, Glucose 107 H, Calcium 8.2 L, Phosphorus 7.7 H, Magnesium 2.0, Total Bilirubin 0.4, AST 24, ALT 41, Troponin I 0.86 *H, Albumin 2.7 L, PT 19.5 H, INR 1.85 H, APTT 78 H, Random Vancomycin 14.4 06/26/16 2215: APTT 50 H 06/26/16 1800: Anion Gap 17 H, Estimated GFR 21 L, Glucose 130 H, Calcium 8.3 L, Phosphorus 5.7 H, Magnesium 1.9, Total Bilirubin 0.5, AST 28, ALT 46, Troponin I 1.12 *H, Albumin 2.9 L 06/26/16 1611: Anion Gap 21 H, Estimated GFR 11 L, Glucose 164 H, Calcium 8.3 L, Phosphorus 9.9 H, Magnesium 2.0, Iron 20 L, TIBC 377, Ferritin 144.0, Total Bilirubin 0.5 , AST 25, ALT 44, Albumin 2.8 L 06/26/16 1215: Hepatitis A IgM Ab Cancelled, Hep Bs Antigen Cancelled, Hep B Core IgM Ab Conf Cancelled, Hepatitis C Antibody Cancelled 06/26/16 1215: Anion Gap 18 H, Estimated GFR 12 L, BUN/Creatinine Ratio 18.4, Glucose 131 H, Calcium 8.3 L, Magnesium 2.0, Troponin I 1.11 *H, CBC w Diff NO MAN DIFF REQ, RBC 2.97 L, MCV 93.8, MCH 29.0, RDW 19.2 H, MPV 9.6, Gran % 97.4 H, Lymphocytes % 1.3 L, Monocytes % 1.3 L, Eosinophils % 0, Basophils % 0 L, PUBS MCHC 30.9 L, Absolute Granulocytes 8.5 H, Absolute Lymphocytes 0.1 L, Absolute Monocytes 0.1 L, Absolute Eosinophils 0, Absolute Basophils 0, Hepatitis A IgM Ab NONREACTIVE, Hep Bs Antigen NONREACTIVE, Hep Bs Antibody NONREACTIVE, Hep B Core IgM Ab Conf NONREACTIVE, Hepatitis C Antibody NONREACTIVE 06/26/16 1205: Sodium Cancelled, Potassium Cancelled, Chloride Cancelled, Carbon Dioxide Cancelled, Anion Gap Cancelled, BUN Cancelled, Creatinine Cancelled, Glucose Cancelled, Calcium Cancelled, Phosphorus Cancelled, Magnesium Cancelled, Total Bilirubin Cancelled, AST Cancelled, ALT Cancelled, Albumin Cancelled Impression/Plan Impression/Plan Impression/Plan: Impression 75 year old man * hoarseness, subglottic edema, unclear etiology, recently at [place] for similar issue * History of anti-phospholipid syndrome on coumadin, recently held secondary to chronic left leg ulceration. * acute hypoxemic respiratory failure secondary to subglottic edema, now improved * LLL consolidation likely aspiration Plan Respiratory -ENT f/u -plan for CT today with contrast, then will need HD -bilateral vocal cord paralysis -o2 supplementation, monitor for respiratory failure with low threshold for intubation -continue Decadron ID -s/p vancomycin/ceftazadime, new LLL consolidation -ID consultation -f/u all cx CVS -Peripheral vascular disease -chronic clot in RLE, currently coumadin held, but on heparin gtt -vascular sx follow up -cardiology consultation appreciated Heme -heparin gtt, until can resume coumadin Metabolic -nephrology consultation appreciated -HD per renal Alimentary -NPO Neuro -no acute issues at this time DVT prophylaxis -heparin gtt for now until coumadin can be restarted, f/u vascular sx TTS 40min
--- NOTE | 2016-06-27 09:56 | PN- Infect Dx ---
Subjective Subjective: Afebrile without complaints. Objective Last 24 Hrs of Vital Signs/I&O Vital Signs Date Time Temp Pulse Resp B/P Pulse O2 O2 Flow FiO2 Ox Delivery Rate 06/27 0901 99 Nasal 2.0L Cannula 06/27 0400 100 Nasal 2.0L Cannula 06/27 0000 98.0 90 16 160/80 99 Nasal 2.0L Cannula 06/27 0000 99 Nasal 2.0L Cannula 06/26 2000 97 Nasal 4.0L Cannula 06/26 1835 99 Nasal 4.0L Cannula 06/26 1600 98.1 94 24 132/64 97 Nasal 4.0L Cannula 06/26 1600 98 Nasal 4.0L Cannula 06/26 1200 98 Aerosol 35% Mask 06/26 1131 Nasal 4.0L Cannula Intake & Output 06/27 0800 06/27 0000 Intake Total 434 244 Output Total 199 605 Balance 235 -361 Intake, IV 434 244 Output, Urine 199 605 Physical Exam Other Physical Findings: He is more awake and alert in no acute distress. His voice remains hoarse Neck right IJ Mj catheter with no inflammation at the site Lungs decreased breath sounds bilaterally Heart regular rhythm with no murmur Abdomen soft, nontender with positive bowel sounds Extremities no cyanosis, clubbing or edema Results Last 24 Hours of Lab Results: Laboratory Tests 06/27 06/27 06/26 06/26 06/26 0820 0525 2215 1800 1611 Chemistry Sodium (137 - 145 mmol/L) 139 139 142 Potassium (3.5 - 5.1 mmol/L) 4.2 4.1 4.9 Chloride (98 - 107 mmol/L) 106 103 107 Carbon Dioxide (22 - 30 mmol/L) 20 L 19 L 14 L Anion Gap (5 - 16) 13 17 H 21 H BUN (9 - 20 mg/dL) 62 H 54 H 89 H Creatinine (0.7 - 1.2 mg/dL) 3.8 H 3.0 H 5.1 *H Estimated GFR (>60 ml/min) 16 L 21 L 11 L Glucose (65 - 99 mg/dL) 107 H 130 H 164 H Calcium (8.4 - 10.2 mg/dL) 8.2 L 8.3 L 8.3 L Phosphorus (2.5 - 4.5 mg/dL) 7.7 H 5.7 H 9.9 H Magnesium (1.6 - 2.3 mg/dL) 2.0 1.9 2.0 Iron (49 - 181 ug/dL) 20 L TIBC (261 - 462 ug/dL) 377 Ferritin (17.9 - 464 ng/mL) 144.0 Total Bilirubin (0.2 - 1.3 mg/dL) 0.4 0.5 0.5 AST (17 - 59 U/L) 24 28 25 ALT (21 - 72 U/L) 41 46 44 Troponin I (<0.11 ng/ml) 0.86 *H 1.12 *H Albumin (3.5 - 5.0 g/dL) 2.7 L 2.9 L 2.8 L Coagulation PT (9.4 - 12.5 SEC) Cancelled 19.5 H INR (0.90 - 1.17) Cancelled 1.85 H APTT (25 - 37 SEC) 78 H 50 H Toxicology Random Vancomycin (ug/ml) 14.4 06/26 06/26 06/26 1215 1215 1205 Chemistry Sodium (137 - 145 mmol/L) 140 Cancelled Potassium (3.5 - 5.1 mmol/L) 4.9 Cancelled Chloride (98 - 107 mmol/L) 109 H Cancelled Carbon Dioxide (22 - 30 mmol/L) 14 L Cancelled Anion Gap (5 - 16) 18 H Cancelled BUN (9 - 20 mg/dL) 90 H Cancelled Creatinine (0.7 - 1.2 mg/dL) 4.9 H Cancelled Estimated GFR (>60 ml/min) 12 L BUN/Creatinine Ratio (7 - 25 %) 18.4 Glucose (65 - 99 mg/dL) 131 H Cancelled Calcium (8.4 - 10.2 mg/dL) 8.3 L Cancelled Phosphorus Cancelled Magnesium (1.6 - 2.3 mg/dL) 2.0 Cancelled Total Bilirubin Cancelled AST Cancelled ALT Cancelled Troponin I (<0.11 ng/ml) 1.11 *H Albumin Cancelled Hematology CBC w Diff NO MAN DIFF REQ WBC (4.8 - 10.8 /CUMM) 8.7 RBC (4.70 - 6.10 /CUMM) 2.97 L Hgb (14.0 - 18.0 G/DL) 8.6 L Hct (42 - 52 %) 27.8 L MCV (80.0 - 94.0 FL) 93.8 MCH (27.0 - 31.0 PG) 29.0 RDW (11.5 - 14.5 %) 19.2 H Plt Count (130 - 400 /CUMM) 123 L MPV (7.4 - 10.4 FL) 9.6 Gran % (42.2 - 75.2 %) 97.4 H Lymphocytes % (20.5 - 51.1 %) 1.3 L Monocytes % (1.7 - 9.3 %) 1.3 L Eosinophils % (0 - 5 %) 0 Basophils % (0.0 - 2.0 %) 0 L PUBS MCHC (33.0 - 37.0 G/DL) 30.9 L Immunology Absolute Granulocytes (1.4 - 6.5 /CUMM) 8.5 H Absolute Lymphocytes (1.2 - 3.4 /CUMM) 0.1 L Absolute Monocytes (0.10 - 0.60 /CUMM) 0.1 L Absolute Eosinophils (0.0 - 0.7 /CUMM) 0 Absolute Basophils (0.0 - 0.2 /CUMM) 0 Serology Hepatitis A IgM Ab (NONREACTIVE) Cancelled NONREACTIVE Hep Bs Antigen (NONREACTIVE) Cancelled NONREACTIVE Hep Bs Antibody (NONREACTIVE) NONREACTIVE Hep B Core IgM Ab Conf (NONREACTIVE) Cancelled NONREACTIVE Hepatitis C Antibody (NONREACTIVE) Cancelled NONREACTIVE Last 24 Hours of [place] Results: Blood cultures 2 June 26 negative Urine culture June 26 negative Assessment/Plan Impression: Improved with decreased oxygen requirements, now on 2 L of nasal oxygen, and improved mental status, status post initiation of dialysis yesterday and currently undergoing it today, suggesting possible uremic encephalopathy as a cause of his altered mental status yesterday. He remains afebrile with white blood cell count normal on empiric treatment with Vancomycin and Ceftazidime, begun yesterday for possible aspiration pneumonia, with a new left lower lobe density on chest x-ray and CT scan. Suggestion: 1. Would attempt to induce sputum for culture 2. Follow-up CT of the neck with further management of his vocal cord paralysis per ENT 3. Repeat chest x-ray in the a.m. June 28 4. Redose with Vancomycin 1 g IV 1 after dialysis today and continue Vancomycin per dialysis protocol for now 5. Continue Ceftazidime 1 g IV every 24 hours
--- NOTE | 2016-06-27 10:10 | CT SCAN REPORT ---
EXAMINATION: CT NECK WITHOUT AND WITH CONTRAST CLINICAL INFORMATION: 75-year-old man with dyspnea and hoarseness. COMPARISON: 12/12/[address] TECHNIQUE: Helical CT images were obtained through the neck before and after the intravenous administration of 95 mL of Optiray 320. DLP: 1078 mGy-cm. FINDINGS: The parotid, submandibular, and thyroid glands remain normal in appearance. No pathologically enlarged or abnormally enhancing lymph nodes are visualized. The airway remains patent and no definite mucosal mass lesion is identified. There is mild stable nonspecific prominence of the paraglottic fat, although the false and true focal cords remain symmetric in appearance and the laryngeal ventricles are also symmetric and normal appearing. No significant retropharyngeal fluid collection is appreciated. There are some locular retained secretions in the hypopharynx. Small mucus retention cysts are seen in the right maxillary sinus. Limited assessment of the brain demonstrates no acute intracranial abnormality. Findings at the lung apices are better assessed on the preceding dedicated chest CT and include a loculated left-sided effusion and patchy left upper lobe airspace disease. Degenerative changes are again noted in the cervical spine. IMPRESSION: No discrete anatomic abnormality is seen to explain the patient's symptoms.
--- NOTE | 2016-06-27 11:16 | NUR ---
PHYSICAL THERAPY. Pt CURRENTLY ON DIALYSIS, PT WILL F/U APPROPRIATE FOR EVALUATION.
--- NOTE | 2016-06-27 11:39 | PN- Nephrology ---
Assessment/Plan Assessment: CKD stage V with uremia: Cause of CKD is likely diabetic nephropathy however other forms of chronic glomerular disease cannot be ruled out. Clinically improving with dialysis thus far. First dialysis treatment was yesterday on in the setting of uremia and he was dialyzed via an Mj catheter. Once clinical status improves and volume status improves then reconsideration can be had to having the left upper extremity AV graft created. I believe that vascular surgery will likely prefer to debride his left leg ulcer first prior to scheduling AV graft creation, to lower infection risk. 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: Given need for additional procedures the near future (left upper extremity AV graft, leg debridement) disease, would continue IV heparin without initiation of oral warfarin at this time Suggestion: #1: Hemodialysis #2 today with fluid removal as tolerated #2: Hemodialysis #3 tomorrow with fluid removal as tolerated #3: Discontinue sodium bicarbonate tablets #4: Add Nephro-Arthur 1 by mouth daily #5: We'll continue Epogen 3 times a week with dialysis #6: Continue Renvela #7: I will add Venofer with each dialysis treatment to address functional iron deficiency Subjective Subjective: Patient was emergently dialyzed for uremia yesterday with improvement in his mentation Patient seen on dialysis again this morning during his second treatment Mj cath was placed yesterday and is functioning well Stridor/wheezing is improved on steroids CAT scan of the neck with IV contrast was performed and an negative for any pathological process involving his neck Review of Systems: Remains lethargic and confused so unable to reliably obtain review of systems Objective Vital Signs and I&Os Vital Signs Date Time Temp Pulse Resp B/P Pulse O2 O2 Flow FiO2 Ox Delivery Rate 06/27 0901 99 Nasal 2.0L Cannula 06/27 800 97.8 94 24 130/70 98 Nasal 2.0L Cannula 06/27 08 98 Nasal 2.0L Cannula 06/27 0400 100 Nasal 2.0L Cannula 06/27 0000 98.0 90 16 160/80 99 Nasal 2.0L Cannula 06/27 0000 99 Nasal 2.0L Cannula 06/26 2000 97 Nasal 4.0L Cannula 11/30 1835 99 Nasal 4.0L Cannula 06/26 1600 98.1 94 24 132/64 97 Nasal 4.0L Cannula 06/26 1600 98 Nasal 4.0L Cannula 06/26 1200 98 Aerosol 35% Mask Intake & Output 06/27 1600 06/27 0400 06/26 1600 06/26 0400 06/25 1600 06/25 040 Intake Total 434 244 490 0 Output Total 199 605 400 Balance 235 -361 90 0 Intake, IV 434 244 490 Intake, Oral 0 Number 2 Bowel Movements Output, Urine 199 605 400 Patient 193 lb 197 lb 200 lb Weight Physical Exam: gen: Wheezing/stridor improved. Patient remains lethargic however more awake than yesterday HEENT: NC/AT. No icterus. Moist mucosa Neck: negative for LATOYA, JVD CV: RRR, no m/r/g Pulm: dec BS at bases Abd: soft, NT/ND, negative renal bruits Lower Ext: 2+ edema. L leg ulcer bandaged Upper Ext: no AVFs or AVGs swollen upper extremities Back: negative for CVA tenderness Neuro: neg tremor, asterixis Skin: no rash, jaundice L leg ulcer bandaged. +bruises : no laboy catheter Current Medications: Current Medications Sig/Kailash Start time Last Medication Dose Route Stop Time Status Admin Acetaminophen 1,000 MG ONCE ONE 06/27 1000 DC N/A 1 UNIT IV 06/27 1014 Albuterol Sulfate 3 ML EVERY 4 HRS/AWAKE 06/26 2000 AC 06/27 INH 0855 Albuterol Sulfate 3 ML Q4H PRN 06/26 0815 AC 06/26 INH 1128 Aspirin 81 MG DAILY 06/26 1938 AC PO Calcitriol 0.25 MCG DAILY 06/26 1000 DC PO Carvedilol 25 MG BID 06/26 1000 AC PO Ceftazidime 1,000 MG Q24 06/27 1000 AC IV Ceftazidime 1,000 MG ONCE ONE 06/26 2000 DC 06/26 IV 06/26 2001 2222 Dexamethasone 6 MG Q8 06/26 1400 AC 06/27 Dextrose/Water 50 ML IV 0544 Epoetin Ludwig 6,000 UNIT ONCE ONE 06/26 1600 DC 06/26 IV 06/26 1601 1733 Heparin Sodium 5,000 UNIT .STK-MED ONE 06/27 12 DC (Porcine) IV 06/27 001 Heparin Sodium 2,670 UNIT ONCE ONE 06/26 2350 DC 06/27 (Porcine) IV 06/26 2351 0119 Heparin Sodium 1 UNIT .STK-MED ONE 06/26 1537 DC (Porcine) IV 06/26 1538 Heparin Sodium 25,000 UNIT Q24H 06/26 1430 AC 06/26 (Porcine) IV 1618 Sodium Chloride 500 ML Insulin Aspart 0 TIDAC 06/26 0800 DC SC Insulin Human Regular 0 Q6 06/26 1253 AC 06/27 SC 0544 Lidocaine 1 ML .STK-MED ONE 06/26 1537 DC IM 06/26 1538 Lidocaine/Epinephrine 1 ML .STK-MED ONE 06/26 1537 DC ID 06/26 1538 Magnesium Sulfate 1 GM Q2H 06/26 0815 DC 06/26 Dextrose/Water 100 ML IV 06/26 1214 0945 Sevelamer Carbonate 800 MG WITH MEALS 06/26 0800 AC PO Sodium Bicarbonate 325 MG BID 06/26 1000 AC PO Vancomycin HCl 750 MG ONCE ONE 06/27 1200 AC Sodium Chloride 250 ML IV 06/27 1259 Vancomycin HCl See Dose DAILY PRN 06/27 1015 AC Insts (1) IV Vancomycin HCl 1,000 MG ONCE ONE 06/26 2000 DC 06/26 Sodium Chloride 250 ML IV 06/26 2059 2302 Vitamin A/Vitamin D 1 CHAITANYA BID 06/26 1553 AC 06/26 TOP 2234 Zinc Oxide 1 CHAITANYA BID 06/26 1354 AC 06/26 TOP 2234 Dose Instructions: (1)Vancomycin HCl: DOSE BASED ON VANCO LEVELS PRIOR TO DIALYSIS Results Pertinent Lab Results: Laboratory Tests 06/27 06/27 06/26 06/26 06/26 0820 0525 2215 1800 1611 Chemistry Sodium (137 - 145 mmol/L) 139 139 142 Potassium (3.5 - 5.1 mmol/L) 4.2 4.1 4.9 Chloride (98 - 107 mmol/L) 106 103 107 Carbon Dioxide (22 - 30 mmol/L) 20 L 19 L 14 L Anion Gap (5 - 16) 13 17 H 21 H BUN (9 - 20 mg/dL) 62 H 54 H 89 H Creatinine (0.7 - 1.2 mg/dL) 3.8 H 3.0 H 5.1 *H Estimated GFR (>60 ml/min) 16 L 21 L 11 L Glucose (65 - 99 mg/dL) 107 H 130 H 164 H Calcium (8.4 - 10.2 mg/dL) 8.2 L 8.3 L 8.3 L Phosphorus (2.5 - 4.5 mg/dL) 7.7 H 5.7 H 9.9 H Magnesium (1.6 - 2.3 mg/dL) 2.0 1.9 2.0 Iron (49 - 181 ug/dL) 20 L TIBC (261 - 462 ug/dL) 377 Ferritin (17.9 - 464 ng/mL) 144.0 Total Bilirubin (0.2 - 1.3 mg/dL) 0.4 0.5 0.5 AST (17 - 59 U/L) 24 28 25 ALT (21 - 72 U/L) 41 46 44 Troponin I (<0.11 ng/ml) 0.86 *H 1.12 *H Albumin (3.5 - 5.0 g/dL) 2.7 L 2.9 L 2.8 L Coagulation PT (9.4 - 12.5 SEC) Cancelled 19.5 H INR (0.90 - 1.17) Cancelled 1.85 H APTT (25 - 37 SEC) 78 H 50 H Toxicology Random Vancomycin (ug/ml) 14.4 06/26 06/26 06/26 1215 1215 1205 Chemistry Sodium (137 - 145 mmol/L) 140 Cancelled Potassium (3.5 - 5.1 mmol/L) 4.9 Cancelled Chloride (98 - 107 mmol/L) 109 H Cancelled Carbon Dioxide (22 - 30 mmol/L) 14 L Cancelled Anion Gap (5 - 16) 18 H Cancelled BUN (9 - 20 mg/dL) 90 H Cancelled Creatinine (0.7 - 1.2 mg/dL) 4.9 H Cancelled Estimated GFR (>60 ml/min) 12 L BUN/Creatinine Ratio (7 - 25 %) 18.4 Glucose (65 - 99 mg/dL) 131 H Cancelled Calcium (8.4 - 10.2 mg/dL) 8.3 L Cancelled Phosphorus Cancelled Magnesium (1.6 - 2.3 mg/dL) 2.0 Cancelled Total Bilirubin Cancelled AST Cancelled ALT Cancelled Troponin I (<0.11 ng/ml) 1.11 *H Albumin Cancelled Hematology CBC w Diff NO MAN DIFF REQ WBC (4.8 - 10.8 /CUMM) 8.7 RBC (4.70 - 6.10 /CUMM) 2.97 L Hgb (14.0 - 18.0 G/DL) 8.6 L Hct (42 - 52 %) 27.8 L MCV (80.0 - 94.0 FL) 93.8 MCH (27.0 - 31.0 PG) 29.0 RDW (11.5 - 14.5 %) 19.2 H Plt Count (130 - 400 /CUMM) 123 L MPV (7.4 - 10.4 FL) 9.6 Gran % (42.2 - 75.2 %) 97.4 H Lymphocytes % (20.5 - 51.1 %) 1.3 L Monocytes % (1.7 - 9.3 %) 1.3 L Eosinophils % (0 - 5 %) 0 Basophils % (0.0 - 2.0 %) 0 L PUBS MCHC (33.0 - 37.0 G/DL) 30.9 L Immunology Absolute Granulocytes (1.4 - 6.5 /CUMM) 8.5 H Absolute Lymphocytes (1.2 - 3.4 /CUMM) 0.1 L Absolute Monocytes (0.10 - 0.60 /CUMM) 0.1 L Absolute Eosinophils (0.0 - 0.7 /CUMM) 0 Absolute Basophils (0.0 - 0.2 /CUMM) 0 Serology Hepatitis A IgM Ab (NONREACTIVE) Cancelled NONREACTIVE Hep Bs Antigen (NONREACTIVE) Cancelled NONREACTIVE Hep Bs Antibody (NONREACTIVE) NONREACTIVE Hep B Core IgM Ab Conf (NONREACTIVE) Cancelled NONREACTIVE Hepatitis C Antibody (NONREACTIVE) Cancelled NONREACTIVE 06/26 06/26 0725 5563 Blood Gas pH (7.35 - 7.45 PH) 7.37 pCO2 (35 - 45 TORR) 17 L pO2 (80 - 100 TORR) 116 H HCO3 (21 - 28 MEQ/L) 9.7 L ABG O2 Sat (Measured) (>96.0 %) 98.0 P-50 (Temp Corrected) N Carboxyhemoglobin (1.5 - 5.0 %) 0.1 L O2 Concentration % .28 Temperature (97.0 - 100.0 FARH) 98.5 O2 Delivery Method A/M Miscellaneous Phlebotomy Draw Site LEFT RADIAL Urines Urinalysis MOD H Urine Color (YEL,AMB,STR) YEL Urine Clarity (CLEAR) CLEAR Urine pH (5.0 - 8.0) 6.0 Ur Specific [place] (1.001 - 1.035) 1.025 Urine Protein (NEG,<30 MG/DL) 100 H Urine Ketones (NEG) NEG Urine Nitrite (NEG) NEG Urine Bilirubin (NEG) NEG Urine Urobilinogen (0.1 - 1.0 EU/dl) 0.2 Ur Leukocyte Esterase (NEG) NEG Ur Microscopic SEDIMENT EXAMINED Urine RBC (0 - 5 /HPF) 10-15 H Urine WBC (0 - 2 /HPF) RARE Urine Hemoglobin (NEG) SMALL H Urine Glucose (N MG/DL) NEG 06/26 06/26 0500 0355 Chemistry Sodium (137 - 145 mmol/L) Cancelled 142 Potassium (3.5 - 5.1 mmol/L) Cancelled 4.7 Chloride (98 - 107 mmol/L) Cancelled 109 H Carbon Dioxide (22 - 30 mmol/L) Cancelled 18 L Anion Gap (5 - 16) Cancelled 16 BUN (9 - 20 mg/dL) Cancelled 89 H Creatinine (0.7 - 1.2 mg/dL) Cancelled 5.0 H Estimated GFR (>60 ml/min) 11 L BUN/Creatinine Ratio (7 - 25 %) 17.8 Glucose (65 - 99 mg/dL) Cancelled 99 Calcium (8.4 - 10.2 mg/dL) Cancelled 8.5 Phosphorus Cancelled Magnesium (1.6 - 2.3 mg/dL) Cancelled 1.5 L Total Bilirubin (0.2 - 1.3 mg/dL) Cancelled 0.6 AST (17 - 59 U/L) Cancelled 29 ALT (21 - 72 U/L) Cancelled 43 Alkaline Phosphatase (< 127 U/L) 100 Troponin I (<0.11 ng/ml) 0.95 *H [id number] Pept (<125 pg/mL) 30483 H Total Protein (6.3 - 8.2 g/dL) 5.9 L Albumin (3.5 - 5.0 g/dL) Cancelled 3.0 L Globulin (1.9 - 4.2 gm/dL) 2.9 Albumin/Globulin Ratio (1.1 - 2.2 %) 1.0 L Coagulation PT (9.4 - 12.5 SEC) 13.8 H INR (0.90 - 1.17) 1.31 H Hematology CBC w Diff Cancelled NO MAN DIFF REQ WBC (4.8 - 10.8 /CUMM) Cancelled 10.4 RBC (4.70 - 6.10 /CUMM) Cancelled 3.12 L Hgb (14.0 - 18.0 G/DL) Cancelled 9.1 L Hct (42 - 52 %) Cancelled 29.2 L MCV (80.0 - 94.0 FL) Cancelled 93.6 MCH (27.0 - 31.0 PG) Cancelled 29.3 RDW (11.5 - 14.5 %) Cancelled 19.3 H Plt Count (130 - 400 /CUMM) Cancelled 124 L MPV (7.4 - 10.4 FL) Cancelled 8.5 Gran % (42.2 - 75.2 %) 84.4 H Lymphocytes % (20.5 - 51.1 %) 3.9 L Monocytes % (1.7 - 9.3 %) 11.5 H Eosinophils % (0 - 5 %) 0.1 Basophils % (0.0 - 2.0 %) 0.1 PUBS MCHC (33.0 - 37.0 G/DL) Cancelled 31.3 L Immunology Absolute Granulocytes (1.4 - 6.5 /CUMM) 8.8 H Absolute Lymphocytes (1.2 - 3.4 /CUMM) 0.4 L Absolute Monocytes (0.10 - 0.60 /CUMM) 1.2 H Absolute Eosinophils (0.0 - 0.7 /CUMM) 0 Absolute Basophils (0.0 - 0.2 /CUMM) 0
[2016-06-27 12:38] LABS: ABSOLUTE BASOPHIL COUNT 0 /CUMM (0.0-0.2); ABSOLUTE EOSINOPHIL COUNT 0 /CUMM (0.0-0.7); ABSOLUTE GRANULOCYTE CT 8.3 /CUMM (1.4-6.5); ABSOLUTE LYMPH COUNT 0.1 /CUMM (1.2-3.4); ABSOLUTE MONOCYTE COUNT 0.4 /CUMM (0.10-0.60); BASOPHIL % 0 % (0.0-2.0); EOSINOPHIL % 0 % (0-5); GRANULOCYTE % 94.2 % (42.2-75.2); HEMATOCRIT 27.2 % (42-52); MEAN CORPUSCULAR HGB CONC 31.1 G/DL (33.0-37.0); MEAN CORPUSCULAR VOLUME 93.5 FL (80.0-94.0); MEAN PLATELET VOLUME 9.9 FL (7.4-10.4); PLATELET COUNT 126 /CUMM (130-400); RBC DISTRIBUTION WIDTH 19.1 % (11.5-14.5); RED BLOOD CELL CT 2.91 /CUMM (4.70-6.10)
[2016-06-27 13:17] LABS: WHITE BLOOD CELL COUNT 8.9 /CUMM (4.8-10.8)
[2016-06-27 16:00] VITALS: BP 118/74
--- NOTE | 2016-06-27 16:55 | NUR ---
Patient is drowsey but easily arousable to verbal stimuli- more responsive than yesterday's assessment. Able to carry on full conversations and responds appropriately. Voice remains slightly hoarse. He can move all extremties and follows commands. NSR on tele monitor with PVC's, HR= 80-90's- episodes of bigeminy during dialysis and Dr. Burden was notified. Pulses + with doppler. On 2L nc, lungs clear and diminished at the bases. NO s/s of respiratory distress noted and pt denies any difficulty breathing. DIRECTOR PRESALES cough is noted. Abdomen is soft and non tender with + bowel sounds- inc of stool. Remains strict NPO and barium swallow is scheduled for tomorrow. Can in place draining clear yellow urine. Patient tolerated dialysis will today with 1.5L off. He was previously taken down to CT scan this am at 0745- for a ct of the neck with contrast. vitals remained stable and pt dialyzed immediately after. Heparin gtt continues to infuse per protocol. Patients frequently updated on POC. IV abx per order. Pt offers no complaints and vitals are currently stable. Pt medicated with IV tylenol with good relief for pain 5/10 to the LLE. Dressing to LLE changed this am- wound appears improved per however remains slightly dry. Xeroform applied FB DPD. Coccyx and buttocks remain unchanged however area is less red- Unstageables and DTI still noted. Will continue to closer monitor patient. Dialysis scheduled for tomorrow.
[2016-06-27 18:52] LABS: PTT 44 SEC (25-37)
[2016-06-28] VITALS: BP 114/60
[2016-06-28 02:54] LABS: ABSOLUTE BASOPHIL COUNT 0 /CUMM (0.0-0.2); ABSOLUTE EOSINOPHIL COUNT 0 /CUMM (0.0-0.7); ABSOLUTE GRANULOCYTE CT 7.8 /CUMM (1.4-6.5); ABSOLUTE LYMPH COUNT 0.1 /CUMM (1.2-3.4); ABSOLUTE MONOCYTE COUNT 0.3 /CUMM (0.10-0.60); BASOPHIL % 0 % (0.0-2.0); EOSINOPHIL % 0 % (0-5); GRANULOCYTE % 94.7 % (42.2-75.2); HEMATOCRIT 26.2 % (42-52); MEAN CORPUSCULAR HGB 28.4 PG (27.0-31.0); MEAN CORPUSCULAR HGB CONC 30.2 G/DL (33.0-37.0); MEAN CORPUSCULAR VOLUME 93.8 FL (80.0-94.0); MEAN PLATELET VOLUME 9.3 FL (7.4-10.4); PLATELET COUNT 119 /CUMM (130-400); RED BLOOD CELL CT 2.79 /CUMM (4.70-6.10); WHITE BLOOD CELL COUNT 8.2 /CUMM (4.8-10.8)
[2016-06-28 03:11] LABS: PTT > 120 SEC (25-37)
--- NOTE | 2016-06-28 07:54 | PN- Resident CRCU ---
Subjective HPI/CRCU Issues: Mr. Marvin is a 75-year-old male with PMH of antiphospholipid antibody syndrome with chronic DVT, hypertension, diabetes, CKD stage V, severe peripheral vascular disease, left lower extremity necrotizing nonhealing ulcers s/p debridement by Dr. pretty, crohns disease status post bowel resection and chronic prednisone treatment, kidney stones status post lithotripsy, transmetatarsal amputation of the right foot, femoropopliteal bypass surgery, was brought in by ambulance from home for worsening of SOB, hoarseness and stridor for 2 days. CRCU issues: 1- SOB, hoarseness and stridor- much improved today saturating in RA 2- CKD stage V, s/p tunneled cath. insertion on 06/26/16, started on dialysis 3- Elevated troponin, with no EKG changes, on IV heparin 4- Pneumonia based on chest CT, [place] recored from April show similar finding. Patient afebrile and no lekocytosis. Watch off antibiotics 5- Anemia (CKD) and APL syndrome (on coumadin) 24 Hour Events: Patient was seen and examined at bedside. he is alert awake and oriented. Still has considerable hoarseness and unable to speak. has no shortness of breath, reports left leg pain, in a tolerable scale. no fever, no choughs. Objective Vital Signs & I&O Last 8 Hrs of Vitals and I&O: T 98.4-98.9 HR 78-88, NSR, telemetry shows lots of trigeminy and bigeminy RR 10-22 BP 114/60-111/80 SO2 95-100% 1L NC I's 561, O's 200 Intake & Output 06/28 1600 Intake Total Output Total Balance Patient 89.131 kg Weight Exam General Appearance: well developed/nourished, no apparent distress, alert, comfortable, drowsy but wakes up with vocal stimulation Head: atraumatic, normal appearance Neck: normal inspection, supple, full range of motion Respiratory: chest non-tender, no respiratory distress, stridor is heard in lung exam Cardiovascular: regular rate/rhythm, JVD Gastrointestinal: normal bowel sounds, soft, non-tender Extremities: 2+ pitting edema, riht tansmetatarsal amputation, left leg necrotic ulcer with dressing (Xeroform and kerlix) Cranial Nerves: normal hearing, PERRL, abnormal speech, hoarseness Skin: warm/dry Current Medications: Current Medications Sig/Kailash Start time Last Medication Dose Route Stop Time Status Admin Acetaminophen 1,000 MG Q6P PRN 06/28 0845 AC 06/28 N/A 1 UNIT IV 0957 Acetaminophen 1,000 MG ONCE ONE 06/27 2030 DC 06/27 N/A 1 UNIT IV 06/27 204 2121 Albuterol Sulfate 3 ML EVERY 4 HRS/AWAKE 06/26 2000 AC 06/27 INH 1641 Albuterol Sulfate 3 ML Q4H PRN 06/26 0815 AC 06/26 INH 1128 Aspirin 81 MG DAILY 06/26 1938 AC PO Carvedilol 25 MG BID 06/26 1000 AC PO Ceftazidime 1,000 MG Q24 06/27 1000 DC 06/27 IV 1437 Dexamethasone 6 MG Q8 06/26 1400 AC 06/28 Dextrose/Water 50 ML IV 0600 Dextrose/Sodium 1,000 ML Q20H 06/27 1515 AC 06/27 Chloride IV 1741 Epoetin Ludwig 6,000 UNIT ONCE ONE 06/28 0830 DC IV 06/28 0831 Furosemide 80 MG DAILY 06/29 1000 AC IV 06/30 2355 Heparin Sodium 5,250 UNIT ONCE ONE 06/27 2045 DC 06/27 (Porcine) IV 06/27 Heparin Sodium 5,000 UNIT .STK-MED ONE 06/27 2001 DC (Porcine) IV 06/27 2002 Heparin Sodium 25,000 UNIT Q24H 06/26 1430 AC 06/27 (Porcine) IV 1441 Sodium Chloride 500 ML Insulin Human Regular 0 Q6 06/27 1800 AC 06/28 SC 1213 Insulin Human Regular 0 Q6 06/26 1253 DC 06/27 SC 1215 Iron Sucrose 100 MG ONCE ONE 06/28 0845 DC Sodium Chloride 100 ML IV 06/28 0859 Multivitamins 1 TAB DAILY 06/27 1456 AC PO Nystatin 5 ML 4 TIMES/DAY 06/28 1046 AC PO Potassium Chloride 20 MEQ ONCE ONE 06/28 0715 DC PO 06/28 0716 Sevelamer Carbonate 800 MG WITH MEALS 06/26 0800 AC PO Sodium Bicarbonate 325 MG BID 06/26 1000 DC PO Vancomycin HCl 500 MG ONCE ONE 06/28 1400 AC Sodium Chloride 250 ML IV 06/28 1459 Vancomycin HCl 750 MG ONCE ONE 06/27 1200 DC 06/27 Sodium Chloride 250 ML IV 06/27 1259 1456 Vancomycin HCl See Dose DAILY PRN 06/27 1015 DC Insts (1) IV Vitamin A/Vitamin D 1 CHAITANYA BID 06/26 1553 AC 06/28 TOP 1206 Zinc Oxide 1 CHAITANYA BID 06/26 1354 AC 06/28 TOP 1206 Dose Instructions: (1)Vancomycin HCl: DOSE BASED ON VANCO LEVELS PRIOR TO DIALYSIS Impression/Plan Impression/Problem List Impression: Mr. Mravin is a 75-year-old male with PMH antiphospholipid antibody syndrome, chronic right upper extremity deep vein thrombosis on Coumadin daily, hypertension, diabetes, chronic kidney disease stage V, severe peripheral vascular disease, left lower extremity necrotizing nonhealing ulcers status post debridement by Dr. Pretty, crohns disease status post bowel resection and chronic prednisone treatment, kidney stones status post lithotripsy, right toes amputation, femoropopliteal bypass surgery was brought in by ambulance from home early in the morning for worsening of breathing, hoarseness, stridor for 2 days. Hoarseness and stridor Patient presented with worsening hoarseness, intermittent stridor, difficulty breathing, use of accessory respiratory muscles. He was found to be lethargic but arousable in the emergency room. Significant history of supraglottic edema in April 2016 with hoarseness and stridor. Treated with tapering doses of steroids. MRA and laryngoscopy were normal. Records from [place] were obtained today which had suggested infectious or inflammatory process causing subglottic edema. Soft tissue neck x-ray-Soft tissue films of the neck demonstrate a normal larynx , pharynx and upper trachea. No soft tissue swelling or opaque foreign body is demonstrated. There is no hypopharyngeal distention. * Today, breathing comfortably in room air * ENT saw the patient again today, performed laryngoscopy and reported improvement of the bilateral paralysis, suggested viral etiology and to continue the Dekadron. Bedside swallowing evaluation was performed without difficulty. * Continue Decadron 6 mg every 8 hours * Started NYSTATIN swish and spit for 7 days for oral thrush Acute hypoxic respiratory failure Patient presented with worsening shortness of breath. Chest x-ray and CAT scan showed left lung consolidation and pneumonia. We started IV ceftaz and IV vancomycin in the emergency room and continued until yesterday. * Records from recent hospitalization in April 2016 showed some of her findings in the long * Patient is afebrile, no leukocytosis. 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 He is following Dr. Pretty as an outpatient. He underwent wound debridement in May 2016 by at [facility], follows up with him regularly. * Dr. Pretty on board, he passed a message through a colleague on the phone the day of admission that there is no need immediate debridement this week. dressing is changed based on instructions from him. * Today I called the office again today and requested a consult for further management of the wound. Subtherapeutic INR Patient has chronic right upper extremity DVT who is on Coumadin * Coumadin was on hold for possible wound debridement * INR 1.31 * We kept coumadin on hold and started IV heparin given the elevated troponins Chronic kidney disease Chronic kidney disease stage V. Patient looked confused in the emergency room possibly from uremia. * Creatinine 5 on admission, baseline creatinine 4.5. * Tunnelled cath. was placed on the day of admission, underwent dialysis * today day 3 of dialysis, Cr this AM: 2.7 Acute coronary syndrome * Denies any chest pain, racing of heart, diaphoresis, nausea, vomiting * Elevated troponins on admission 0.95, went up to 1.11 and 1.12, came down to 0.86 * No acute EKG changes on admission-sinus rhythm, rate 94, QTC 521, no acute ST- T wave changes, repeat ECGs remained unchanged * No cardiac history in the past * Stress test was normal * Recent echo in 2016 normal ejection fraction * Follows Dr. Cohn leather tanner as an outpatient, Echo- May 2016 showed normal ejection fraction. Stress test was normal. * ECHO ordered will follow. Chronic lower extremity swelling * Patient takes Lasix at home * Patient underwent dialysis again today (day3) * Will start IV lasix 80 mg daily from tomorrow Hypertension * Patient is on amlodipine, carvedilol, hydralazine at home * We held amlodipine and hydralazine for now * Will continue carvedilol 25 BID after modified barium swallow * systolic BP in 110s-130s Diabetes mellitus Accu-Cheks Insulin sliding scale, currently for NPO status Levemir 13 units daily Chronic kidney disease * Keep calcitriol, sodium citrate, sodium bicarbonate on hold * Will continue renvela, vitamin D, B12, iron sulfate (on hold till barium swallow eval) Hypomagnesemia * Replete magnesium Crohn's disease Patient is on chronic prednisone treatment 10 mg daily at home. * Held prednisone in the hospital as patient is on Decadron. DVT prophylaxis subcutaneous Lovenox Diet Nothing by mouth, modified barioum swallow deferred after ENT sees him for possible need for tracheostomy, receiving D5W-1/2NS 40 cc/h Pain Mild to moderate pain pathway Tylenol Full code Problem List: 1. Supraglottic edema 2. End stage renal disease 3. Elevated troponin 4. Chronic deep vein thrombosis (DVT) 5. Antiphospholipid antibody syndrome 6. Chronic ulcer of left lower extremity 7. Diabetes mellitus Pain Ratin Tomorrow's Labs & Rationales: IV acetaminophen Plan DVT/Prophylaxis: mechanical, pharmacological 2. End stage renal disease 3. Elevated troponin 4. Chronic deep vein thrombosis (DVT) 5. Antiphospholipid antibody syndrome 6. Chronic ulcer of left lower extremity 7. Diabetes mellitus Pain Ratin Tomorrow's Labs & Rationales: IV acetaminophen Plan DVT/Prophylaxis: mechanical, pharmacological Pain Ratin Tomorrow's Labs & Rationales: IV acetaminophen Plan DVT/Prophylaxis: mechanical, pharmacological
[2016-06-28 08:00] VITALS: BP 130/70
--- NOTE | 2016-06-28 09:32 | NUR ---
Physical Therapy: Attempted to see patient this A.M. Per RN, patient is off the floor at dialysis. Will f/u as appropriate.
--- NOTE | 2016-06-28 09:37 | PN- Nephrology ---
Assessment/Plan Assessment: CKD stage V with uremia: Cause of CKD is likely diabetic nephropathy however other forms of chronic glomerular disease cannot be ruled out. Clinically improving with dialysis thus far. First dialysis treatment was yesterday on in the setting of uremia and he was dialyzed via an Mj catheter. Once clinical status improves and volume status improves then reconsideration can be had to having the left upper extremity AV graft created. I believe that vascular surgery will likely prefer to debride his left leg ulcer first prior to scheduling AV graft creation, to lower infection risk. Anemia: Will continue Epogen 3 times a week with dialysis; Venofer added with each dialysis treatment (100 mg's IV 10 doses), to address functional iron deficiency APLS with history of DVT: Given need for additional procedures the near future (left upper extremity AV graft, leg debridement) disease, would continue IV heparin without initiation of oral warfarin at this time NPO status: Stridor improved with steroids. ENT follow-up and speech and swallow follow-up. As patient is total body volume overloaded with lower remains IV fluids to 40 mL per hour. Anasarca: Fluid removal with dialysis. Jamie for 3-3.5 L of fluid removal today. Lower IV fluids as above. Give Lasix 80 mg IV on Friday and 80 mg IV on Friday. Suggestion: #1: Hemodialysis #3 today with goal 3-3.5L UF #2: Nexium dialysis treatment on Friday #3: Would give Lasix 80 mg IV on Friday and 80 mg IV on Friday #4: Please lower main his IV fluids to 40 mL per hour and once cleared to take by mouth would discontinue IV fluids #5: We'll continue Epogen and Venofer with each dialysis treatment for iron deficiencya #6: continue nephrovite, renvela #7: Consider removing Laboy catheter and checking postvoid residual to lower UTI risk. If has urinary retention then would consult urology and place for catheter. Subjective Subjective: No acute events had second dialysis treatment yesterday Mental status has improved Remains nothing by mouth and on maintenance IV fluids Laboy cath remains in place, he may have had urinary retention couple days ago Review of Systems: Mental status improved. No chest pain abdominal pain nausea vomiting diarrhea shortness of breath Objective Vital Signs and I&Os Vital Signs Date Time Temp Pulse Resp B/P Pulse O2 O2 Flow FiO2 Ox Delivery Rate 12/02 0800 98.0 88 20 130/70 98 Room Air 06/28 0338 98 Nasal 1.0L Cannula 06/28 0000 98 Nasal 1.0L Cannula 06/28 0000 98.9 80 16 114/60 98 Nasal 1.0L Cannula 06/27 212 98.2 06/27 2000 99 Nasal 1.0L Cannula 06/27 164 100 Nasal 2.0L Cannula 06/27 1600 97.6 88 22 118/74 98 Nasal 2.0L Cannula 06/27 1600 98 Nasal 2.0L Cannula 06/27 1200 96 Nasal 2.0L Cannula Intake & Output 06/28 1600 06/28 0400 06/27 1600 06/27 0400 06/26 1600 06/26 0400 Intake Total 561 867 814 244 490 0 Output Total 200 215 399 605 400 Balance 361 652 415 -361 90 0 Intake, IV 561 867 814 244 490 Intake, Oral 0 0 0 Number 2 0 1 2 Bowel Movements Output, Urine 200 215 399 605 400 Patient 196 lb 193 lb 197 lb 200 lb Weight Physical Exam: gen: Wheezing/stridor improved. awake/alert HEENT: NC/AT. No icterus. Moist mucosa Neck: negative for LATOYA, JVD CV: RRR, no m/r/g Pulm: dec BS at bases Abd: soft, NT/ND, negative renal bruits Lower Ext: 2+ edema. L leg ulcer bandaged Upper Ext: no AVFs or AVGs swollen upper extremities Back: negative for CVA tenderness Neuro: neg tremor, asterixis Skin: no rash, jaundice L leg ulcer bandaged. +bruises : no laboy catheter Current Medications: Current Medications Sig/Kailash Start time Last Medication Dose Route Stop Time Status Admin Acetaminophen 1,000 MG Q6P PRN 06/28 0845 AC N/A 1 UNIT IV Acetaminophen 1,000 MG ONCE ONE 06/27 2030 DC 06/27 N/A 1 UNIT IV 06/27 2044 2121 Acetaminophen 1,000 MG ONCE ONE 06/27 1000 DC 06/27 N/A 1 UNIT IV 06/27 1014 1438 Albuterol Sulfate 3 ML EVERY 4 HRS/AWAKE 06/26 2000 AC 06/27 INH 1641 Albuterol Sulfate 3 ML Q4H PRN 06/26 0815 AC 06/26 INH 1128 Aspirin 81 MG DAILY 06/26 1938 AC PO Carvedilol 25 MG BID 06/26 1000 AC PO Ceftazidime 1,000 MG Q24 06/27 1000 AC 06/27 IV 1437 Dexamethasone 6 MG Q8 06/26 1400 AC 06/28 Dextrose/Water 50 ML IV 0600 Dextrose/Sodium 1,000 ML Q20H 06/27 1515 r 06/27 Chloride IV 1741 Epoetin Ludwig 6,000 UNIT ONCE ONE 06/28 0830 DC IV 06/28 0831 Furosemide 80 MG DAILY 06/29 1000 UNVr IV 06/30 2355 Heparin Sodium 5,250 UNIT ONCE ONE 06/27 2045 DC 06/27 (Porcine) IV 06/27 Heparin Sodium 5,000 UNIT .[facility]-MED ONE 06/27 2001 DC (Porcine) IV 06/27 2002 Heparin Sodium 25,000 UNIT Q24H 06/26 1430 AC 06/27 (Porcine) IV 1441 Sodium Chloride 500 ML Insulin Human Regular 0 Q6 06/27 1800 AC 06/28 SC 0600 Insulin Human Regular 0 Q6 06/26 1253 DC 06/27 SC 1215 Iron Sucrose 100 MG ONCE ONE 06/28 0845 DC Sodium Chloride 100 ML IV 06/28 0859 Multivitamins 1 TAB DAILY 06/27 1456 AC PO Potassium Chloride 20 MEQ ONCE ONE 06/28 0715 DC PO 06/28 0716 Sevelamer Carbonate 800 MG WITH MEALS 06/26 0800 AC PO Sodium Bicarbonate 325 MG BID 06/26 1000 DC PO Vancomycin HCl 750 MG ONCE ONE 06/27 1200 DC 06/27 Sodium Chloride 250 ML IV 06/27 1259 1456 Vancomycin HCl See Dose DAILY PRN 06/27 1015 AC Insts (1) IV Vitamin A/Vitamin D 1 CHAITANYA BID 06/26 1553 AC 06/27 TOP 2122 Zinc Oxide 1 CHAITANYA BID 06/26 1354 AC 06/27 TOP 2122 Dose Instructions: (1)Vancomycin HCl: DOSE BASED ON VANCO LEVELS PRIOR TO DIALYSIS Results Pertinent Lab Results: Laboratory Tests 06/28 06/27 0215 1740 Chemistry Sodium (137 - 145 mmol/L) 138 Potassium (3.5 - 5.1 mmol/L) 3.7 Chloride (98 - 107 mmol/L) 104 Carbon Dioxide (22 - 30 mmol/L) 21 L Anion Gap (5 - 16) 13 BUN (9 - 20 mg/dL) 43 H Creatinine (0.7 - 1.2 mg/dL) 2.7 H Estimated GFR (>60 ml/min) 23 L Glucose (65 - 99 mg/dL) 181 H Calcium (8.4 - 10.2 mg/dL) 7.4 L Phosphorus (2.5 - 4.5 mg/dL) 6.3 H Magnesium (1.6 - 2.3 mg/dL) 2.0 Total Bilirubin (0.2 - 1.3 mg/dL) 0.4 AST (17 - 59 U/L) 20 ALT (21 - 72 U/L) 48 Albumin (3.5 - 5.0 g/dL) 2.6 L Coagulation APTT (25 - 37 SEC) > 120 *H 44 H Hematology CBC w Diff NO MAN DIFF REQ WBC (4.8 - 10.8 /CUMM) 8.2 RBC (4.70 - 6.10 /CUMM) 2.79 L Hgb (14.0 - 18.0 G/DL) 7.9 L Hct (42 - 52 %) 26.2 L MCV (80.0 - 94.0 FL) 93.8 MCH (27.0 - 31.0 PG) 28.4 RDW (11.5 - 14.5 %) 19.0 H Plt Count (130 - 400 /CUMM) 119 L MPV (7.4 - 10.4 FL) 9.3 Gran % (42.2 - 75.2 %) 94.7 H Lymphocytes % (20.5 - 51.1 %) 1.6 L Monocytes % (1.7 - 9.3 %) 3.7 Eosinophils % (0 - 5 %) 0 Basophils % (0.0 - 2.0 %) 0 L PUBS MCHC (33.0 - 37.0 G/DL) 30.2 L Immunology Absolute Granulocytes (1.4 - 6.5 /CUMM) 7.8 H Absolute Lymphocytes (1.2 - 3.4 /CUMM) 0.1 L Absolute Monocytes (0.10 - 0.60 /CUMM) 0.3 Absolute Eosinophils (0.0 - 0.7 /CUMM) 0 Absolute Basophils (0.0 - 0.2 /CUMM) 0 Toxicology Random Vancomycin (ug/ml) 17.0 06/27 06/27 06/27 0845 0820 0525 Chemistry Sodium (137 - 145 mmol/L) 139 Potassium (3.5 - 5.1 mmol/L) 4.2 Chloride (98 - 107 mmol/L) 106 Carbon Dioxide (22 - 30 mmol/L) 20 L Anion Gap (5 - 16) 13 BUN (9 - 20 mg/dL) 62 H Creatinine (0.7 - 1.2 mg/dL) 3.8 H Estimated GFR (>60 ml/min) 16 L Glucose (65 - 99 mg/dL) 107 H Calcium (8.4 - 10.2 mg/dL) 8.2 L Phosphorus (2.5 - 4.5 mg/dL) 7.7 H Magnesium (1.6 - 2.3 mg/dL) 2.0 Total Bilirubin (0.2 - 1.3 mg/dL) 0.4 AST (17 - 59 U/L) 24 ALT (21 - 72 U/L) 41 Troponin I (<0.11 ng/ml) 0.86 *H Albumin (3.5 - 5.0 g/dL) 2.7 L Coagulation PT (9.4 - 12.5 SEC) Cancelled 19.5 H INR (0.90 - 1.17) Cancelled 1.85 H APTT (25 - 37 SEC) 78 H Hematology CBC w Diff NO MAN DIFF REQ WBC (4.8 - 10.8 /CUMM) 8.9 RBC (4.70 - 6.10 /CUMM) 2.91 L Hgb (14.0 - 18.0 G/DL) 8.5 L Hct (42 - 52 %) 27.2 L MCV (80.0 - 94.0 FL) 93.5 MCH (27.0 - 31.0 PG) 29.0 RDW (11.5 - 14.5 %) 19.1 H Plt Count (130 - 400 /CUMM) 126 L MPV (7.4 - 10.4 FL) 9.9 Gran % (42.2 - 75.2 %) 94.2 H Lymphocytes % (20.5 - 51.1 %) 1.6 L Monocytes % (1.7 - 9.3 %) 4.2 Eosinophils % (0 - 5 %) 0 Basophils % (0.0 - 2.0 %) 0 L PUBS MCHC (33.0 - 37.0 G/DL) 31.1 L Immunology Absolute Granulocytes (1.4 - 6.5 /CUMM) 8.3 H Absolute Lymphocytes (1.2 - 3.4 /CUMM) 0.1 L Absolute Monocytes (0.10 - 0.60 /CUMM) 0.4 Absolute Eosinophils (0.0 - 0.7 /CUMM) 0 Absolute Basophils (0.0 - 0.2 /CUMM) 0 Toxicology Random Vancomycin (ug/ml) 14.4 06/26 06/26 06/26 06/26 2215 1800 1611 1215 Chemistry Sodium (137 - 145 mmol/L) 139 142 Potassium (3.5 - 5.1 mmol/L) 4.1 4.9 Chloride (98 - 107 mmol/L) 103 107 Carbon Dioxide (22 - 30 mmol/L) 19 L 14 L Anion Gap (5 - 16) 17 H 21 H BUN (9 - 20 mg/dL) 54 H 89 H Creatinine (0.7 - 1.2 mg/dL) 3.0 H 5.1 *H Estimated GFR (>60 ml/min) 21 L 11 L Glucose (65 - 99 mg/dL) 130 H 164 H Calcium (8.4 - 10.2 mg/dL) 8.3 L 8.3 L Phosphorus (2.5 - 4.5 mg/dL) 5.7 H 9.9 H Magnesium (1.6 - 2.3 mg/dL) 1.9 2.0 Iron (49 - 181 ug/dL) 20 L TIBC (261 - 462 ug/dL) 377 Ferritin (17.9 - 464 ng/mL) 144.0 Total Bilirubin (0.2 - 1.3 mg/dL) 0.5 0.5 AST (17 - 59 U/L) 28 25 ALT (21 - 72 U/L) 46 44 Troponin I (<0.11 ng/ml) 1.12 *H Albumin (3.5 - 5.0 g/dL) 2.9 L 2.8 L Coagulation APTT (25 - 37 SEC) 50 H Serology Hepatitis A IgM Ab Cancelled Hep Bs Antigen Cancelled Hep B Core IgM Ab Conf Cancelled Hepatitis C Antibody Cancelled 06/26 06/26 1215 1205 Chemistry Sodium (137 - 145 mmol/L) 140 Cancelled Potassium (3.5 - 5.1 mmol/L) 4.9 Cancelled Chloride (98 - 107 mmol/L) 109 H Cancelled Carbon Dioxide (22 - 30 mmol/L) 14 L Cancelled Anion Gap (5 - 16) 18 H Cancelled BUN (9 - 20 mg/dL) 90 H Cancelled Creatinine (0.7 - 1.2 mg/dL) 4.9 H Cancelled Estimated GFR (>60 ml/min) 12 L BUN/Creatinine Ratio (7 - 25 %) 18.4 Glucose (65 - 99 mg/dL) 131 H Cancelled Calcium (8.4 - 10.2 mg/dL) 8.3 L Cancelled Phosphorus Cancelled Magnesium (1.6 - 2.3 mg/dL) 2.0 Cancelled Total Bilirubin Cancelled AST Cancelled ALT Cancelled Troponin I (<0.11 ng/ml) 1.11 *H Albumin Cancelled Hematology CBC w Diff NO MAN DIFF REQ WBC (4.8 - 10.8 /CUMM) 8.7 RBC (4.70 - 6.10 /CUMM) 2.97 L Hgb (14.0 - 18.0 G/DL) 8.6 L Hct (42 - 52 %) 27.8 L MCV (80.0 - 94.0 FL) 93.8 MCH (27.0 - 31.0 PG) 29.0 RDW (11.5 - 14.5 %) 19.2 H Plt Count (130 - 400 /CUMM) 123 L MPV (7.4 - 10.4 FL) 9.6 Gran % (42.2 - 75.2 %) 97.4 H Lymphocytes % (20.5 - 51.1 %) 1.3 L Monocytes % (1.7 - 9.3 %) 1.3 L Eosinophils % (0 - 5 %) 0 Basophils % (0.0 - 2.0 %) 0 L PUBS MCHC (33.0 - 37.0 G/DL) 30.9 L Immunology Absolute Granulocytes (1.4 - 6.5 /CUMM) 8.5 H Absolute Lymphocytes (1.2 - 3.4 /CUMM) 0.1 L Absolute Monocytes (0.10 - 0.60 /CUMM) 0.1 L Absolute Eosinophils (0.0 - 0.7 /CUMM) 0 Absolute Basophils (0.0 - 0.2 /CUMM) 0 Serology Hepatitis A IgM Ab (NONREACTIVE) NONREACTIVE Hep Bs Antigen (NONREACTIVE) NONREACTIVE Hep Bs Antibody (NONREACTIVE) NONREACTIVE Hep B Core IgM Ab Conf (NONREACTIVE) NONREACTIVE Hepatitis C Antibody (NONREACTIVE) NONREACTIVE 06/26 06/26 0731 0694 Blood Gas pH (7.35 - 7.45 PH) 7.37 pCO2 (35 - 45 TORR) 17 L pO2 (80 - 100 TORR) 116 H HCO3 (21 - 28 MEQ/L) 9.7 L ABG O2 Sat (Measured) (>96.0 %) 98.0 P-50 (Temp Corrected) N Carboxyhemoglobin (1.5 - 5.0 %) 0.1 L O2 Concentration % .28 Temperature (97.0 - 100.0 FARH) 98.5 O2 Delivery Method A/M Miscellaneous Phlebotomy Draw Site LEFT RADIAL Urines Urinalysis MOD H Urine Color (YEL,AMB,STR) YEL Urine Clarity (CLEAR) CLEAR Urine pH (5.0 - 8.0) 6.0 Ur Specific [place] (1.001 - 1.035) 1.025 Urine Protein (NEG,<30 MG/DL) 100 H Urine Ketones (NEG) NEG Urine Nitrite (NEG) NEG Urine Bilirubin (NEG) NEG Urine Urobilinogen (0.1 - 1.0 EU/dl) 0.2 Ur Leukocyte Esterase (NEG) NEG Ur Microscopic SEDIMENT EXAMINED Urine RBC (0 - 5 /HPF) 10-15 H Urine WBC (0 - 2 /HPF) RARE Urine Hemoglobin (NEG) SMALL H Urine Glucose (N MG/DL) NEG 06/26 06/26 0500 0355 Chemistry Sodium (137 - 145 mmol/L) Cancelled 142 Potassium (3.5 - 5.1 mmol/L) Cancelled 4.7 Chloride (98 - 107 mmol/L) Cancelled 109 H Carbon Dioxide (22 - 30 mmol/L) Cancelled 18 L Anion Gap (5 - 16) Cancelled 16 BUN (9 - 20 mg/dL) Cancelled 89 H Creatinine (0.7 - 1.2 mg/dL) Cancelled 5.0 H Estimated GFR (>60 ml/min) 11 L BUN/Creatinine Ratio (7 - 25 %) 17.8 Glucose (65 - 99 mg/dL) Cancelled 99 Calcium (8.4 - 10.2 mg/dL) Cancelled 8.5 Phosphorus Cancelled Magnesium (1.6 - 2.3 mg/dL) Cancelled 1.5 L Total Bilirubin (0.2 - 1.3 mg/dL) Cancelled 0.6 AST (17 - 59 U/L) Cancelled 29 ALT (21 - 72 U/L) Cancelled 43 Alkaline Phosphatase (< 127 U/L) 100 Troponin I (<0.11 ng/ml) 0.95 *H [id number] Pept (<125 pg/mL) 11422 H Total Protein (6.3 - 8.2 g/dL) 5.9 L Albumin (3.5 - 5.0 g/dL) Cancelled 3.0 L Globulin (1.9 - 4.2 gm/dL) 2.9 Albumin/Globulin Ratio (1.1 - 2.2 %) 1.0 L Coagulation PT (9.4 - 12.5 SEC) 13.8 H INR (0.90 - 1.17) 1.31 H Hematology CBC w Diff Cancelled NO MAN DIFF REQ WBC (4.8 - 10.8 /CUMM) Cancelled 10.4 RBC (4.70 - 6.10 /CUMM) Cancelled 3.12 L Hgb (14.0 - 18.0 G/DL) Cancelled 9.1 L Hct (42 - 52 %) Cancelled 29.2 L MCV (80.0 - 94.0 FL) Cancelled 93.6 MCH (27.0 - 31.0 PG) Cancelled 29.3 RDW (11.5 - 14.5 %) Cancelled 19.3 H Plt Count (130 - 400 /CUMM) Cancelled 124 L MPV (7.4 - 10.4 FL) Cancelled 8.5 Gran % (42.2 - 75.2 %) 84.4 H Lymphocytes % (20.5 - 51.1 %) 3.9 L Monocytes % (1.7 - 9.3 %) 11.5 H Eosinophils % (0 - 5 %) 0.1 Basophils % (0.0 - 2.0 %) 0.1 PUBS MCHC (33.0 - 37.0 G/DL) Cancelled 31.3 L Immunology Absolute Granulocytes (1.4 - 6.5 /CUMM) 8.8 H Absolute Lymphocytes (1.2 - 3.4 /CUMM) 0.4 L Absolute Monocytes (0.10 - 0.60 /CUMM) 1.2 H Absolute Eosinophils (0.0 - 0.7 /CUMM) 0 Absolute Basophils (0.0 - 0.2 /CUMM) 0
--- NOTE | 2016-06-28 11:09 | RADIOLOGY REPORT ---
EXAMINATION: XR PORTABLE CHEST CLINICAL INFORMATION: Dyspnea. COMPARISON: Chest done on 06/26/2016. TECHNIQUE: 85 degrees AP portable view of the chest , 2 images were obtained. FINDINGS: Persistent nonspecific airspace disease is noted at left mid to lower lung field, similar to prior study dated 06/26/2016. The right lung field appears clear, unchanged. Interval placement of a right-sided central catheter present, appears in good position. There is no evidence of any right-sided pneumothorax present. The cardiomediastinal silhouette is within normal limits. The visualized upper abdomen is unremarkable. IMPRESSION: Persistent nonspecific airspace disease at left mid to lower lung field, similar to prior study dated 06/26/2016. Interval placement of a right-sided central catheter present, appears in good position. No other significant change.
--- NOTE | 2016-06-28 11:27 | PN- Infect Dx ---
Subjective Subjective: Afebrile on steroids. He complains of pain in the left calf ulcer. He has no respiratory complaints. Objective Last 24 Hrs of Vital Signs/I&O Vital Signs Date Time Temp Pulse Resp B/P Pulse O2 O2 Flow FiO2 Ox Delivery Rate 06/28 800 98.0 88 20 130/70 98 Room Air 06/28 08 96 Room Air 06/28 0338 98 Nasal 1.0L Cannula 06/28 0000 98 Nasal 1.0L Cannula 06/28 0000 98.9 80 16 114/60 98 Nasal 1.0L Cannula 06/27 212 98.2 06/27 2000 99 Nasal 1.0L Cannula 06/27 1641 100 Nasal 2.0L Cannula 06/27 1600 97.6 88 22 118/74 98 Nasal 2.0L Cannula 06/27 1600 98 Nasal 2.0L Cannula 06/27 1200 96 Nasal 2.0L Cannula Intake & Output 06/28 1600 06/28 0806/28 0000 Intake Total 561 867 Output Total 200 215 Balance 361 652 Intake, IV 561 867 Intake, Oral 0 0 Number 2 0 Bowel Movements Output, Urine 200 215 Patient 196 lb Weight Physical Exam Other Physical Findings: He appears comfortable in no acute distress Neck tunneled catheter in the right IJ with no inflammation at the site Lungs are clear Heart regular rhythm with no murmur Extremities left calf ulcer overall improved, with some areas of necrosis, but with no surrounding erythema or drainage Can catheter remains in place Results Last 24 Hours of Lab Results: Laboratory Tests 06/28 06/27 0215 1740 Chemistry Sodium (137 - 145 mmol/L) 138 Potassium (3.5 - 5.1 mmol/L) 3.7 Chloride (98 - 107 mmol/L) 104 Carbon Dioxide (22 - 30 mmol/L) 21 L Anion Gap (5 - 16) 13 BUN (9 - 20 mg/dL) 43 H Creatinine (0.7 - 1.2 mg/dL) 2.7 H Estimated GFR (>60 ml/min) 23 L Glucose (65 - 99 mg/dL) 181 H Calcium (8.4 - 10.2 mg/dL) 7.4 L Phosphorus (2.5 - 4.5 mg/dL) 6.3 H Magnesium (1.6 - 2.3 mg/dL) 2.0 Total Bilirubin (0.2 - 1.3 mg/dL) 0.4 AST (17 - 59 U/L) 20 ALT (21 - 72 U/L) 48 Albumin (3.5 - 5.0 g/dL) 2.6 L Coagulation APTT (25 - 37 SEC) > 120 *H 44 H Hematology CBC w Diff NO MAN DIFF REQ WBC (4.8 - 10.8 /CUMM) 8.2 RBC (4.70 - 6.10 /CUMM) 2.79 L Hgb (14.0 - 18.0 G/DL) 7.9 L Hct (42 - 52 %) 26.2 L MCV (80.0 - 94.0 FL) 93.8 MCH (27.0 - 31.0 PG) 28.4 RDW (11.5 - 14.5 %) 19.0 H Plt Count (130 - 400 /CUMM) 119 L MPV (7.4 - 10.4 FL) 9.3 Gran % (42.2 - 75.2 %) 94.7 H Lymphocytes % (20.5 - 51.1 %) 1.6 L Monocytes % (1.7 - 9.3 %) 3.7 Eosinophils % (0 - 5 %) 0 Basophils % (0.0 - 2.0 %) 0 L PUBS MCHC (33.0 - 37.0 G/DL) 30.2 L Immunology Absolute Granulocytes (1.4 - 6.5 /CUMM) 7.8 H Absolute Lymphocytes (1.2 - 3.4 /CUMM) 0.1 L Absolute Monocytes (0.10 - 0.60 /CUMM) 0.3 Absolute Eosinophils (0.0 - 0.7 /CUMM) 0 Absolute Basophils (0.0 - 0.2 /CUMM) 0 Toxicology Random Vancomycin (ug/ml) 17.0 Last 24 Hours of [place] Results: Blood cultures June 26 negative Urine culture June 26 negative Recent Imaging Studies: Chest x-ray June 28 decreased density in the left lower lobe CT of the neck June 27 no discrete anatomic abnormality Assessment/Plan Impression: Doing well with respiratory status improved, now off oxygen, suggesting his respiratory distress on admission may have been fluid overload rather than pneumonia, and with his mental status now normal with initiation of hemodialysis for possible uremic encephalopathy. He remains afebrile with white blood cell count normal on empiric treatment with Vancomycin and Ceftazidime for possible pneumonia left lower lobe, though, given his rapid improvement and lack of fever and leukocytosis on admission, feel that pneumonia is less likely. His hoarseness is of unclear etiology and appears to be improved. Suggestion: 1. Await swallow evaluation 2. Further evaluation/management of his vocal cord paralysis per ENT 3. Remove Can catheter 4. Discontinue Vancomycin and Ceftazidime and follow off antibiotics
[2016-06-28 12:29] LABS: PTT > 120 SEC (25-37)
--- NOTE | 2016-06-28 12:46 | PN- Cardiology ---
Subjective Subjective: Patient was undergoing dialysis this morning and offered no complaint other than some pain in his ankle. Objective Vital Signs and I&Os Vital Signs Date Time Temp Pulse Resp B/P Pulse O2 O2 Flow FiO2 Ox Delivery Rate 06/28 800 98.0 88 20 130/70 98 Room Air 06/28 08 96 Room Air 06/28 0338 98 Nasal 1.0L Cannula 06/28 98 Nasal 1.0L Cannula 06/28 98.9 80 16 114/60 98 Nasal 1.0L Cannula 06/27 2121 98.2 06/27 2000 99 Nasal 1.0L Cannula 06/27 1641 100 Nasal 2.0L Cannula 06/27 1600 97.6 88 22 118/74 98 Nasal 2.0L Cannula 06/27 1600 98 Nasal 2.0L Cannula Intake & Output 06/28 0806/28 0000 06/27 1600 06/27 0806/27 0000 Intake Total 561 867 380 434 244 Output Total 200 215 200 199 605 Balance 361 652 180 235 -361 Intake, IV 561 867 380 434 244 Intake, Oral 0 0 Number 2 0 1 Bowel Movements Output, Urine 200 215 200 199 605 Patient 197 lb 196 lb 193 lb Weight Physical Exam: General: no apparent distress. Alert. Eyes: No obvious scleral icterus. HEENT: No jugular venous distention or abnormal jugular venous pulsations. Cardiovascular: Normal intensity S1/S2. Regular Respiratory: Mildly decreased air entry at the left Abdomen: Soft, nontender with no guarding or rebound tenderness. Musculoskeletal: No cyanosis noted Skin: Warm Current Medications: Current Medications Sig/Kailash Start time Last Medication Dose Route Stop Time Status Admin Acetaminophen 1,000 MG Q6P PRN 06/28 0845 AC 06/28 N/A 1 UNIT IV 0957 Acetaminophen 1,000 MG ONCE ONE 06/27 2030 DC 06/27 N/A 1 UNIT IV 06/27 Albuterol Sulfate 3 ML EVERY 4 HRS/AWAKE 06/26 2000 AC 06/27 INH 1641 Albuterol Sulfate 3 ML Q4H PRN 06/26 0815 AC 06/26 INH 1128 Aspirin 81 MG DAILY 06/26 1938 AC PO Carvedilol 25 MG BID 06/26 1000 AC PO Ceftazidime 1,000 MG Q24 06/27 1000 DC 06/27 IV 1437 Dexamethasone 6 MG Q8 06/26 1400 AC 06/28 Dextrose/Water 50 ML IV 0600 Dextrose/Sodium 1,000 ML Q20H 06/27 1515 AC 06/27 Chloride IV 1741 Epoetin Ludwig 6,000 UNIT ONCE ONE 06/28 0830 DC IV 06/28 0831 Furosemide 80 MG DAILY 06/29 1000 AC IV 06/30 2355 Heparin Sodium 5,250 UNIT ONCE ONE 06/27 2045 DC 06/27 (Porcine) IV 06/27 Heparin Sodium 5,000 UNIT .STK-MED ONE 06/27 2001 DC (Porcine) IV 06/27 2002 Heparin Sodium 25,000 UNIT Q24H 06/26 1430 AC 06/27 (Porcine) IV 1441 Sodium Chloride 500 ML Insulin Human Regular 0 Q6 06/27 1800 AC 06/28 SC 1213 Insulin Human Regular 0 Q6 06/26 1253 DC 06/27 SC 1215 Iron Sucrose 100 MG ONCE ONE 06/28 0845 DC Sodium Chloride 100 ML IV 06/28 0859 Multivitamins 1 TAB DAILY 06/27 1456 AC PO Nystatin 5 ML 4 TIMES/DAY 06/28 1046 AC PO Potassium Chloride 20 MEQ ONCE ONE 06/28 0715 DC PO 06/28 0716 Sevelamer Carbonate 800 MG WITH MEALS 06/26 0800 AC PO Sodium Bicarbonate 325 MG BID 06/26 1000 DC PO Vancomycin HCl 500 MG ONCE ONE 06/28 1400 AC Sodium Chloride 250 ML IV 06/28 1459 Vancomycin HCl 750 MG ONCE ONE 06/27 1200 DC 06/27 Sodium Chloride 250 ML IV 06/27 1259 1456 Vancomycin HCl See Dose DAILY PRN 06/27 1015 DC Insts (1) IV Vitamin A/Vitamin D 1 CHAITANYA BID 06/26 1553 AC 06/28 TOP 1206 Zinc Oxide 1 CHAITANYA BID 06/26 1354 AC 06/28 TOP 1206 Dose Instructions: (1)Vancomycin HCl: DOSE BASED ON VANCO LEVELS PRIOR TO DIALYSIS Results Last 48 Hrs of Labs/Mics: Laboratory Tests 06/28/16 1130: APTT > 120 *H 06/28/16 1045: 06/28/16 0215: Anion Gap 13, Estimated GFR 23 L, Glucose 181 H, Calcium 7.4 L, Phosphorus 6.3 H, Magnesium 2.0, Total Bilirubin 0.4, AST 20, ALT 48, Albumin 2.6 L, APTT > 120 *H, CBC w Diff NO MAN DIFF REQ, RBC 2.79 L, MCV 93.8, MCH 28.4, RDW 19.0 H, MPV 9.3, Gran % 94.7 H, Lymphocytes % 1.6 L, Monocytes % 3.7, Eosinophils % 0, Basophils % 0 L, PUBS MCHC 30.2 L, Absolute Granulocytes 7.8 H, Absolute Lymphocytes 0.1 L, Absolute Monocytes 0.3, Absolute Eosinophils 0, Absolute Basophils 0, Random Vancomycin 17.0 06/27/16 1740: APTT 44 H 06/27/16 0845: CBC w Diff NO MAN DIFF REQ, RBC 2.91 L, MCV 93.5, MCH 29.0, RDW 19.1 H, MPV 9.9, Gran % 94.2 H, Lymphocytes % 1.6 L, Monocytes % 4.2, Eosinophils % 0, Basophils % 0 L, PUBS MCHC 31.1 L, Absolute Granulocytes 8.3 H, Absolute Lymphocytes 0.1 L, Absolute Monocytes 0.4, Absolute Eosinophils 0, Absolute Basophils 0 06/27/16 0820: PT Cancelled, INR Cancelled 06/27/16 0525: Anion Gap 13, Estimated GFR 16 L, Glucose 107 H, Calcium 8.2 L, Phosphorus 7.7 H, Magnesium 2.0, Total Bilirubin 0.4, AST 24, ALT 41, Troponin I 0.86 *H, Albumin 2.7 L, PT 19.5 H, INR 1.85 H, APTT 78 H, Random Vancomycin 14.4 06/26/16 2215: APTT 50 H 06/26/16 1800: Anion Gap 17 H, Estimated GFR 21 L, Glucose 130 H, Calcium 8.3 L, Phosphorus 5.7 H, Magnesium 1.9, Total Bilirubin 0.5, AST 28, ALT 46, Troponin I 1.12 *H, Albumin 2.9 L 06/26/16 1611: Anion Gap 21 H, Estimated GFR 11 L, Glucose 164 H, Calcium 8.3 L, Phosphorus 9.9 H, Magnesium 2.0, Iron 20 L, TIBC 377, Ferritin 144.0, Total Bilirubin 0.5 , AST 25, ALT 44, Albumin 2.8 L Recent Imaging Studies: Telemetry tracings were personally reviewed and shows sinus rhythm with occasional PVCs CXR Persistent nonspecific airspace disease at left mid to lower lung field, similar to prior study dated 06/26/2016. Interval placement of a right-sided central catheter present, appears in good position. No other significant change. Assessment/Plan Assessment/Plan 1. Elevated troponin possibly due to demand ischemia 2. Possible pneumonia 3. Subglottic edema 4. History of antiphospholipid antibody syndrome maintained on anticoagulation 5. Lower extremity ulcer with peripheral vascular disease 6. End-stage renal disease on dialysis 7. History of hypertension 8. History of upper extremity thrombosis The patient appears comfortable today and remains hemodynamically stable. Elevated troponins are suspected to be due to demand ischemia and a repeat echocardiogram is pending to exclude any new wall motion abnormalities. The patient should be on statin therapy if no medical contraindication. Eligio Childers MD [facility]
--- NOTE | 2016-06-28 13:00 | PN- CRCU ---
Subjective HPI/Critical Care Issues: pt seen and examined voice improved no n/v/d/c tolerating HD no cp dyspnea improved oral thrush noted Objective Current Medications: Current Medications Sig/Kailash Start time Last Medication Dose Route Stop Time Status Admin Acetaminophen 1,000 MG Q6P PRN 06/28 0845 AC 06/28 N/A 1 UNIT IV 0957 Acetaminophen 1,000 MG ONCE ONE 06/27 2030 DC 06/27 N/A 1 UNIT IV 06/27 2044 212 Albuterol Sulfate 3 ML EVERY 4 HRS/AWAKE 06/26 2000 AC 06/27 INH 1641 Albuterol Sulfate 3 ML Q4H PRN 06/26 0815 AC 06/26 INH 1128 Aspirin 81 MG DAILY 06/26 1938 AC PO Carvedilol 25 MG BID 06/26 1000 AC PO Ceftazidime 1,000 MG Q24 06/27 1000 DC 06/27 IV 1437 Dexamethasone 6 MG Q8 06/26 1400 AC 06/28 Dextrose/Water 50 ML IV 0600 Dextrose/Sodium 1,000 ML Q20H 06/27 1515 AC 06/27 Chloride IV 1741 Epoetin Ludwig 6,000 UNIT ONCE ONE 06/28 0830 DC IV 06/28 0831 Furosemide 80 MG DAILY 06/29 1000 AC IV 06/30 2355 Heparin Sodium 5,250 UNIT ONCE ONE 06/27 2045 DC 06/27 (Porcine) IV 06/27 Heparin Sodium 5,000 UNIT .STK-MED ONE 06/27 2001 DC (Porcine) IV 06/27 2002 Heparin Sodium 25,000 UNIT Q24H 06/26 1430 AC 06/27 (Porcine) IV 1441 Sodium Chloride 500 ML Insulin Human Regular 0 Q6 06/27 1800 AC 06/28 SC 1213 Insulin Human Regular 0 Q6 06/26 1253 DC 06/27 SC 1215 Iron Sucrose 100 MG ONCE ONE 06/28 0845 DC Sodium Chloride 100 ML IV 06/28 0859 Multivitamins 1 TAB DAILY 06/27 1456 AC PO Nystatin 5 ML 4 TIMES/DAY 06/28 1046 AC PO Potassium Chloride 20 MEQ ONCE ONE 06/28 0715 DC PO 06/28 0716 Sevelamer Carbonate 800 MG WITH MEALS 06/26 0800 AC PO Sodium Bicarbonate 325 MG BID 06/26 1000 DC PO Vancomycin HCl 500 MG ONCE ONE 06/28 1400 AC Sodium Chloride 250 ML IV 06/28 1459 Vancomycin HCl 750 MG ONCE ONE 06/27 1200 DC 06/27 Sodium Chloride 250 ML IV 06/27 1259 1456 Vancomycin HCl See Dose DAILY PRN 06/27 1015 DC Insts (1) IV Vitamin A/Vitamin D 1 CHAITANYA BID 06/26 1553 AC 06/28 TOP 1206 Zinc Oxide 1 CHAITANYA BID 06/26 1354 AC 06/28 TOP 1206 Dose Instructions: (1)Vancomycin HCl: DOSE BASED ON VANCO LEVELS PRIOR TO DIALYSIS Vital Signs & I&O Last 24 Hrs of Vitals and I&O: Vital Signs Date Time Temp Pulse Resp B/P Pulse O2 O2 Flow FiO2 Ox Delivery Rate 06/28 08 98.0 88 20 130/70 98 Room Air 06/28 0800 96 Room Air 06/28 0338 98 Nasal 1.0L Cannula 06/28 0000 98 Nasal 1.0L Cannula 06/28 0000 98.9 80 16 114/60 98 Nasal 1.0L Cannula 06/27 2121 98.2 06/27 2000 99 Nasal 1.0L Cannula 06/27 1641 100 Nasal 2.0L Cannula 06/27 1600 97.6 88 22 118/74 98 Nasal 2.0L Cannula 06/27 1600 98 Nasal 2.0L Cannula Intake & Output 06/28 1600 06/28 0800 06/28 0000 Intake Total 561 867 Output Total 200 215 Balance 361 652 Intake, IV 561 867 Intake, Oral 0 0 Number 2 0 Bowel Movements Output, Urine 200 215 Patient 197 lb 196 lb Weight Exam Other Physical Findings: gen awake and alert heent ORAL THRUSH cvs s1, s2 lungs transmitted, rare rhonchi abd soft bs+ ext without edema Results Last 24 Hrs of Lab Results: Laboratory Tests 06/28/16 1130: APTT > 120 *H 06/28/16 1045: 06/28/16 0215: Anion Gap 13, Estimated GFR 23 L, Glucose 181 H, Calcium 7.4 L, Phosphorus 6.3 H, Magnesium 2.0, Total Bilirubin 0.4, AST 20, ALT 48, Albumin 2.6 L, APTT > 120 *H, CBC w Diff NO MAN DIFF REQ, RBC 2.79 L, MCV 93.8, MCH 28.4, RDW 19.0 H, MPV 9.3, Gran % 94.7 H, Lymphocytes % 1.6 L, Monocytes % 3.7, Eosinophils % 0, Basophils % 0 L, PUBS MCHC 30.2 L, Absolute Granulocytes 7.8 H, Absolute Lymphocytes 0.1 L, Absolute Monocytes 0.3, Absolute Eosinophils 0, Absolute Basophils 0, Random Vancomycin 17.0 06/27/16 1740: APTT 44 H Impression/Plan Impression/Plan Impression/Plan: Impression 75 year old man * hoarseness, subglottic edema, unclear etiology, recently at [place] for similar issue * History of anti-phospholipid syndrome on coumadin, recently held secondary to chronic left leg ulceration. * acute hypoxemic respiratory failure secondary to subglottic edema, now improved * LLL consolidation likely aspiration * oral thrush Plan Respiratory -ENT f/u -bilateral vocal cord paralysis -off o2 -continue Decadron ID -ID consultation appreciated -will follow off abx -f/u all cx -NYSTATIN swish and spit for 7 days ordered for oral thrush CVS -Peripheral vascular disease -chronic clot in RLE, currently coumadin held, but on heparin gtt -vascular sx follow up -cardiology consultation appreciated Heme -heparin gtt, until can resume coumadin Metabolic -nephrology consultation appreciated -HD per renal Alimentary -NPO Neuro -no acute issues at this time DVT prophylaxis -heparin gtt for now until coumadin can be restarted, f/u vascular sx TTS 40min
--- NOTE | 2016-06-28 13:36 | PN- Ear, Nose & Throat ---
Subjective Subjective: Patient is feeling better today Voice is stronger and breathing is better In retrospect on questioning, patient developed throat pain and difficulty swallowing accompanied by stridor 2 weeks ago. At that time was admitted to [facility] where he was treated and released after 1 week. he was readmitted to the emergency room with similar symptoms. This followed by hospital admission. ENT exam 2 days ago reviewed to bilateral vocal cord paralysis. Patient was placed on Decadron with improvement in his symptoms. Objective Vital Signs and I&Os Vital Signs Date Time Temp Pulse Resp B/P Pulse O2 O2 Flow FiO2 Ox Delivery Rate 06/28 800 98.0 88 20 130/70 98 Room Air 06/28 800 96 Room Air 06/28 0338 98 Nasal 1.0L Cannula 06/28 0000 98 Nasal 1.0L Cannula 06/28 0000 98.9 80 16 114/60 98 Nasal 1.0L Cannula 06/27 2121 98.2 06/27 2000 99 Nasal 1.0L Cannula 06/27 1641 100 Nasal 2.0L Cannula 06/27 1600 97.6 88 22 118/74 98 Nasal 2.0L Cannula 06/27 1600 98 Nasal 2.0L Cannula Intake & Output 06/28 1600 06/28 0806/28 0000 06/27 1600 06/27 0800 06/27 0000 Intake Total 561 867 380 434 244 Output Total 200 215 200 199 605 Balance 361 652 180 235 -361 Intake, IV 561 867 380 434 244 Intake, Oral 0 0 Number 2 0 1 Bowel Movements Output, Urine 200 215 200 199 605 Patient 197 lb 196 lb 193 lb Weight Well-developed, well-nourished male without acute distress Voiced strong, clear, no saliva drooling Head: normocephalic, atraumatic Ears: Canals- clear; Tympanic Membranes- clear Nose: Septum- mild deviation to the left ; Turbinates- mild hypertrophy ; Airway -adequate Oral cavity: Mucosa- clear Oropharynx: Posterior wall- clear Neck: supple Fiberoptic laryngoscopy: Fiberoptic scope inserted via Nasopharynx: Clear Hypopharynx: Piriform sinuses-Clear; posterior wall- clear; mucosa-clear Larynx: Epiglottisintact; vocal cords-mobile; posterior commissure-clear esophageal inlet-intact CT neck 06/28/16: There is mild stable nonspecific prominence of the paraglottic fat, although the false and true focal cords remain symmetric in appearance and the laryngeal ventricles are also symmetric and normal appearing. Remainder of neck exam was essentially negative Assessment/Plan Assessment/Plan 1. Bilateral vocal cord paralysis with improvement most likely viral in etiology Patient currently is on Decadron taper which I would continue Please start swallowing trials Patient was given water and by the bedside without difficulty in swallowing Please contact of any further concerns Attending MD Review Statement Attending Statement Attending MD Statement: examined this patient, discuss w/resident/PA/MUSEUM CURATOR
--- NOTE | 2016-06-28 14:03 | NUR ---
Physical Therapy: Attempted to see pt this afternoon. Pt's PTT >120 sec. Due to this and pt being a severely high fall risk- will cx pt at this time and follow up tomorrow as appropraite. nsg aware. Thank you.
[2016-06-28 21:18] LABS: PTT 70 SEC (25-37)
[2016-06-29] VITALS: BP 154/70
--- NOTE | 2016-06-29 05:23 | NUR ---
0000 PATIENT RECEIVED ALERT AND ORIENTED X3, SKIN PALE, WARM AND DRY, LAB PACK CHEMIST SINUS WITH BBB, PVC'S NOTED, HEART RATE 80'S/MIN, HEAPRIN DRIP INFUSING AT 9.41 UNITS/KG/HR- NEXT PTT DUE AT 0700, ABDOMEN SOFT. +BS, ASHCATH CLAMPED AND INTACT RIGHT CHEST WALL- DRESSING AT SITE CLEAN, DRY AND INTACT, PATIENT C/O 8/10 PAIN IN LLE - DRESSING TO SITE CLEAN, DRY AND INTACT, FOOT PINK AND WARM TO TOUCH- MEDICATED WITH IV TYLENOL PER DR BRYANT BREATHE SOUNDS CLEAR BILATERALLY, O2 SAT 96% ON RA 0100 PATIENT SLEEPING AFTER TYLENOL DOSE
--- NOTE | 2016-06-29 06:36 | NUR ---
PATIENT RESTING QUIETLY, DENIES C/O DISCOMFORT AT THIS TIME, NO S/S RESPIRATORY DIFFICULTY OVERNIGHT, DR BRYANT MADE AWRE OF ELEVATED ACCUCHECKS OVERNIGHT
[2016-06-29 07:19] LABS: ABSOLUTE BASOPHIL COUNT 0 /CUMM (0.0-0.2); ABSOLUTE EOSINOPHIL COUNT 0 /CUMM (0.0-0.7); ABSOLUTE GRANULOCYTE CT 6.5 /CUMM (1.4-6.5); ABSOLUTE LYMPH COUNT 0.2 /CUMM (1.2-3.4); ABSOLUTE MONOCYTE COUNT 0.3 /CUMM (0.10-0.60); BASOPHIL % 0.1 % (0.0-2.0); EOSINOPHIL % 0 % (0-5); GRANULOCYTE % 93.4 % (42.2-75.2); HEMATOCRIT 27.3 % (42-52); MEAN CORPUSCULAR HGB 29.2 PG (27.0-31.0); MEAN CORPUSCULAR VOLUME 94.1 FL (80.0-94.0); MEAN PLATELET VOLUME 9.4 FL (7.4-10.4); PLATELET COUNT 112 /CUMM (130-400); RBC DISTRIBUTION WIDTH 19.1 % (11.5-14.5); WHITE BLOOD CELL COUNT 6.9 /CUMM (4.8-10.8)
[2016-06-29 08:00] VITALS: BP 140/70
[2016-06-29 08:25] LABS: PT 18.6 SEC (9.4-12.5); PTT 41 SEC (25-37)
--- NOTE | 2016-06-29 08:34 | PN- Resident CRCU ---
Impression/Plan Impression/Problem List Impression: Mr. 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 Pretty, crohns disease status post bowel resection and chronic prednisone treatment, kidney stones status post lithotripsy, right toes amputation, femoropopliteal bypass surgery was brought in by ambulance from home early in the morning for worsening of breathing, hoarseness, stridor for 2 days. Hoarseness and stridor Patient presented with worsening hoarseness, intermittent stridor, difficulty breathing, use of accessory respiratory muscles. He was found to be lethargic but arousable in the emergency room. Significant history of supraglottic edema in April 2016 with hoarseness and stridor. Treated with tapering doses of steroids. MRA and laryngoscopy were normal. Records from [place] were obtained today which had suggested infectious or inflammatory process causing subglottic edema. Soft tissue neck x-ray-Soft tissue films of the neck demonstrate a normal larynx , pharynx and upper trachea. No soft tissue swelling or opaque foreign body is demonstrated. There is no hypopharyngeal distention. * Today, breathing comfortably in room air * ENT saw the patient again today, performed laryngoscopy and reported improvement of the bilateral paralysis, suggested viral etiology and to continue the Dekadron. Bedside swallowing evaluation was performed without difficulty. * Continue Decadron 6 mg every 8 hours * Started NYSTATIN swish and spit for 7 days for oral thrush Acute hypoxic respiratory failure Patient presented with worsening shortness of breath. Chest x-ray and CAT scan showed left lung consolidation and pneumonia. We started IV ceftaz and IV vancomycin in the emergency room and continued until yesterday. * Records from recent hospitalization in April 2016 showed some of her findings in the long * Patient is afebrile, no leukocytosis. 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 He is following Dr. Pretty as an outpatient. He underwent wound debridement in May 2016 by at [facility], follows up with him regularly. * Dr. Pretty on board, he passed a message through a colleague on the phone the day of admission that there is no need immediate debridement this week. dressing is changed based on instructions from him. * Today I called the office again today and requested a consult for further management of the wound. Subtherapeutic INR Patient has chronic right upper extremity DVT who is on Coumadin * Coumadin was on hold for possible wound debridement * INR 1.31 * We kept coumadin on hold and started IV heparin given the elevated troponins Chronic kidney disease Chronic kidney disease stage V. Patient looked confused in the emergency room possibly from uremia. * Creatinine 5 on admission, baseline creatinine 4.5. * Tunnelled cath. was placed on the day of admission, underwent dialysis * today day 3 of dialysis, Cr this AM: 2.7 Acute coronary syndrome * Denies any chest pain, racing of heart, diaphoresis, nausea, vomiting * Elevated troponins on admission 0.95, went up to 1.11 and 1.12, came down to 0.86 * No acute EKG changes on admission-sinus rhythm, rate 94, QTC 521, no acute ST- T wave changes, repeat ECGs remained unchanged * No cardiac history in the past * Stress test was normal * Recent echo in 2016 normal ejection fraction * Follows Dr. Cohn hotel office manager as an outpatient, Echo- May 2016 showed normal ejection fraction. Stress test was normal. * ECHO ordered will follow. Chronic lower extremity swelling * Patient takes Lasix at home * Patient underwent dialysis again today (day3) * Will start IV lasix 80 mg daily from tomorrow Hypertension * Patient is on amlodipine, carvedilol, hydralazine at home * We held amlodipine and hydralazine for now * Will continue carvedilol 25 BID after modified barium swallow * systolic BP in 110s-130s Diabetes mellitus Accu-Cheks Insulin sliding scale, currently for NPO status Levemir 13 units daily Chronic kidney disease * Keep calcitriol, sodium citrate, sodium bicarbonate on hold * Will continue renvela, vitamin D, B12, iron sulfate (on hold till barium swallow eval) Hypomagnesemia * Replete magnesium Crohn's disease Patient is on chronic prednisone treatment 10 mg daily at home. * Held prednisone in the hospital as patient is on Decadron. DVT prophylaxis subcutaneous Lovenox Diet Nothing by mouth, modified barioum swallow deferred after ENT sees him for possible need for tracheostomy, receiving D5W-1/2NS 40 cc/h Pain Mild to moderate pain pathway Tylenol Full code Plan DVT/Prophylaxis: mechanical, pharmacological
--- NOTE | 2016-06-29 11:17 | PN- Pulmonary ---
Subjective HPI/Critical Care Issues: Patient feels well with improved voice no shortness of breath on room air Objective Current Medications: Current Medications Sig/Kailash Start time Last Medication Dose Route Stop Time Status Admin Acetaminophen 1,000 MG ONCE ONE 06/28 2345 CAN N/A 1 UNIT IV 06/28 2359 Acetaminophen 1,000 MG Q6P PRN 06/28 0845 AC 06/28 N/A 1 UNIT IV 2357 Albuterol Sulfate 3 ML EVERY 4 HRS/AWAKE 06/26 2000 AC 06/29 INH 0758 Albuterol Sulfate 3 ML Q4H PRN 06/26 0815 AC 06/26 INH 1128 Aspirin 81 MG DAILY 06/26 1938 AC 06/29 PO 0942 Atorvastatin Calcium 40 MG 1700 06/28 1700 AC 06/28 PO 1722 Carvedilol 25 MG BID 06/26 1000 AC 06/29 PO 0943 Ceftazidime 1,000 MG Q24 06/27 1000 DC 06/27 IV 1437 Dexamethasone 6 MG Q8 06/26 1400 AC 06/29 Dextrose/Water 50 ML IV 0546 Dextrose/Sodium 1,000 ML Q20H 06/27 1515 DC 06/28 Chloride IV 1424 Furosemide 80 MG DAILY 06/29 1000 AC 06/29 IV 06/30 2355 0943 Heparin Sodium 25,000 UNIT Q24H 06/26 1430 AC 06/28 (Porcine) IV 1703 Sodium Chloride 500 ML Insulin Aspart 0 TIDAC 06/29 1200 AC SC Insulin Human Regular 0 TIDAC/HS 06/29 1200 CAN SC Insulin Human Regular 0 Q6 06/27 1800 DC 06/29 SC 0549 Magnesium Oxide 400 MG ONE ONE 06/29 0900 DC 06/29 PO 06/29 0901 0943 Multivitamins 1 TAB DAILY 06/27 1456 AC 06/29 PO 0943 Nystatin 5 ML 4 TIMES/DAY 06/28 1046 AC 06/29 PO 0943 Potassium Chloride 40 MEQ ONCE ONE 06/29 0900 DC 06/29 PO 06/29 0901 0942 Sevelamer Carbonate 800 MG WITH MEALS 06/26 0800 AC 06/29 PO 0826 Tamsulosin HCl 0.4 MG DAILY 06/29 1000 AC PO Vancomycin HCl 500 MG ONCE ONE 06/28 1400 CAN Sodium Chloride 250 ML IV 06/28 1459 Vancomycin HCl See Dose DAILY PRN 06/27 1015 DC Insts (1) IV Vitamin A/Vitamin D 1 CHAITANYA BID 06/26 1553 AC 12/ TOP 0943 Zinc Oxide 1 CHAITANYA BID 06/26 1354 AC 06/29 TOP 0943 Dose Instructions: (1)Vancomycin HCl: DOSE BASED ON VANCO LEVELS PRIOR TO DIALYSIS Vital Signs & I&O Last 24 Hrs of Vitals and I&O: Vital Signs Date Time Temp Pulse Resp B/P Pulse O2 O2 Flow FiO2 Ox Delivery Rate 06/29 0943 90 142/68 06/29 0801 96 Room Air Room Air 06/29 0800 97.9 90 16 140/70 94 Room Air 06/29 0800 94 Room Air 06/29 0000 96 Room Air 06/29 0000 98.1 84 16 154/70 96 Room Air 06/28 2024 96 Room Air 06/28 2000 96 06/28 1443 Nasal 1.0L Cannula 06/28 1410 93 147/74 Intake & Output 06/29 1600 06/29 0800 06/29 0000 Intake Total 600 574.4 Output Total 350 Balance 250 574.4 Intake, IV 300 454.4 Intake, Oral 300 120 Number 2 5 Bowel Movements Output, Urine 350 Room oxygen saturation is 96% HEENT exam shows no stridor exam of his chest shows clear lung neal are no wheezes cardiac exam shows regular S1 and S2 without murmurs Impression/Plan Impression/Plan Impression/Plan: 75-year-old with 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 Respiratory status is stable and no further follow-up necessary
--- NOTE | 2016-06-29 11:54 | Cons- Vascular Surgery ---
General Information and HPI Consulting Request Date of Consult: 06/29/16 Requested By: DEBBIE SPENCER MD Reason for Consult: Leg wound management Source of Information: patient, old records Exam Limitations: no limitations History of Present Illness: This is a 75-year-old male well-known to my services with a history of severe venous insufficiency and DVT, hypertension, hyperlipidemia, chronic renal insufficiency now requiring hemodialysis and a recent severe left lower extremity wound. He's been treated locally at the [facility]. Recently his wound has been making only mild improvement at best. He recently underwent CO2 angiography which does not demonstrate any significant peripheral arterial disease in his left leg. His wound has been compromised by volume overload, venous insufficiency, infection and having his leg dependent. He is now admitted for possible pneumonia, renal failure, and inflammation of his epiglottis. He denies rest pain. We are consulted for wound management and possible need for debridement. He will also need hemodialysis access at a later date. Allergies/Medications Allergies: Coded Allergies: Sulfa (Sulfonamide Antibiotics) (Mild, HIVES 06/15/16) Home Med List: Amlodipine Besylate 10 MG TABLET 1 TAB PO DAILY BP (Reported) Calcitriol (Rocaltrol) 0.25 MCG CAPSULE 1 CAP PO DAILY KIDNEYS (Reported) Calcium Carbonate/Vitamin D3 (Os-Vishal 500+D3 Caplet) 500 MG-600 TABLET 1 TAB PO TID SUPPLEMENT (Reported) Carvedilol 25 MG TABLET 1 TAB PO BID HEART (Reported) Citric Acid/Sodium Citrate (Cytra-2 Oral Solution) 473 ML SOLUTION 15 ML PO BID KIDNEYS (Reported) Cyanocobalamin (Vitamin B-12) 1,000 MCG TABLET 1 TAB PO DAILY SUPPLEMENT ( Reported) Ferrous Sulfate 325 MG (65 MG IRON) TABLET 1 TAB PO TID SUPPLEMENT (Reported) Furosemide 80 MG TABLET 1 TAB PO BID LEG SWELLING (Reported) Hydralazine HCl 50 MG TABLET 1 TAB PO BID HEART (Reported) Insulin Aspart (Novolog) 100 UNIT/ML VIAL DM (Reported) Insulin Detemir (Levemir) 100 UNIT/ML VIAL 13 UNITS SC DAILY QAM DM Multivit-Min/FA/Lycopen/Lutein (Centrum Silver Tablet) 1 EACH TABLET 1 TAB PO DAILY SUPPLEMENT (Reported) Oxycodone HCl/Acetaminophen (Percocet 5-325 MG Tablet) 5 MG-325 MG TABLET 1 TAB PO BID PRN PAIN Prednisone 10 MG TABLET 1 TAB PO DAILY KIDNEYS (Reported) Sevelamer Carbonate (Renvela) 800 MG TABLET 1 TAB PO TIDWM KIDNEYS (Reported) Sodium Bicarbonate 325 MG TABLET 1 TAB PO BID KIDNEYS (Reported) Tramadol HCl 50 MG TABLET 1 TAB PO BIDP PRN PAIN (Reported) Vitamin B Complex (B Complex) 1 EACH TABLET 1 TAB PO DAILY SUPPLEMENT ( Reported) Warfarin Sodium (Coumadin) 5 MG TABLET 1 TAB PO DAILY BLOOD THINNER (Reported ) DOSE ACCORDING TO INR Current Medications: Current Medications Sig/Kailash Start time Last Medication Dose Route Stop Time Status Admin Acetaminophen 1,000 MG ONCE ONE 06/28 2345 CAN N/A 1 UNIT IV 06/28 2359 Acetaminophen 1,000 MG Q6P PRN 06/28 0845 AC 06/28 N/A 1 UNIT IV 2357 Albuterol Sulfate 3 ML EVERY 4 HRS/AWAKE 06/26 2000 AC 06/29 INH 1138 Albuterol Sulfate 3 ML Q4H PRN 06/26 0815 AC 06/26 INH 1128 Aspirin 81 MG DAILY 06/26 1938 AC 06/29 PO 0942 Atorvastatin Calcium 40 MG 1700 06/28 1700 AC 06/28 PO 1722 Carvedilol 25 MG BID 06/26 1000 AC 06/29 PO 0943 Ceftazidime 1,000 MG Q24 06/27 1000 DC 06/27 IV 1437 Dexamethasone 6 MG Q8 06/26 1400 AC 06/29 Dextrose/Water 50 ML IV 0546 Dextrose/Sodium 1,000 ML Q20H 06/27 1515 DC 06/28 Chloride IV 1424 Diphenoxylate HCl/ 2.5 MG TID PRN 06/29 1130 AC Atropine PO Furosemide 80 MG DAILY 06/29 1000 AC 06/29 IV /04 2355 0943 Heparin Sodium 5,300 UNIT ONCE ONE 06/29 1130 DC (Porcine) IV 06/29 1131 Heparin Sodium 25,000 UNIT Q24H 06/26 1430 AC 06/28 (Porcine) IV 1703 Sodium Chloride 500 ML Insulin Aspart 0 TIDAC 06/29 1200 AC SC Insulin Human Regular 0 TIDAC/HS 06/29 1200 CAN SC Insulin Human Regular 0 Q6 06/27 1800 DC 06/29 SC 0549 Magnesium Oxide 400 MG ONE ONE 06/29 0900 DC 06/29 PO 06/29 0901 0943 Multivitamins 1 TAB DAILY 06/27 1456 AC 06/29 PO 0943 Nystatin 5 ML 4 TIMES/DAY 06/28 1046 AC 06/29 PO 0943 Potassium Chloride 40 MEQ ONCE ONE 06/29 0900 DC 06/29 PO 06/29 0901 0942 Sevelamer Carbonate 800 MG WITH MEALS 06/26 0800 AC 06/29 PO 0826 Tamsulosin HCl 0.4 MG DAILY 06/29 1000 AC PO Vancomycin HCl 500 MG ONCE ONE 06/28 1400 CAN Sodium Chloride 250 ML IV 06/28 1459 Vancomycin HCl See Dose DAILY PRN 06/27 1015 DC Insts (1) IV Vitamin A/Vitamin D 1 CHAITANYA BID 06/26 1553 AC 06/29 TOP 0943 Zinc Oxide 1 CHAITANYA BID 06/26 1354 AC 06/29 TOP 0943 Dose Instructions: (1)Vancomycin HCl: DOSE BASED ON VANCO LEVELS PRIOR TO DIALYSIS Past History Medical History Blood Transfusion Hx: Yes Neurological: NONE EENT: NONE Cardiovascular: PVD, DVT Respiratory: pneumonia Gastrointestinal: Crohn's disease Hepatic: NONE Renal: nephrolithiasis, CKD Musculoskeletal: VASCULAR OCCLUSION RIGHT LEG RIGHT PATELLA FRACTURE WITH orif NON HEALING WOUNDS R. 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 Home Who Do You Live With? spouse Services at Home: None Primary Language: Tunisian Smoking Status: Former Smoker ETOH Use: denies use Illicit Drug Use: denies illicit drug use Functional Ability ADLs Independent: dressing, eating, toileting, bathing. Ambulation: walker IADLs Needs Assist: shopping, housework, finances, food prep, telephone, transportation, medication admin. Review of Systems Review of Systems Constitutional: Reports: no symptoms, malaise, weakness. Musculoskeletal: Reports: muscle pain (left leg pain). Neurological/Psychological: Reports: tremors. Exam & Diagnostic Data Vital Signs and I&O Vital Signs Date Time Temp Pulse Resp B/P Pulse O2 O2 Flow FiO2 Ox Delivery Rate 06/29 0943 90 142/68 06/29 0801 96 Room Air Room Air 06/29 08 97.9 90 16 140/70 94 Room Air 06/29 08 94 Room Air 06/29 0000 96 Room Air 06/29 0000 98.1 84 16 154/70 96 Room Air 06/28 2024 96 Room Air 06/28 2000 96 06/28 1443 Nasal 1.0L Cannula 06/28 1410 93 147/74 Intake & Output 06/29 1600 06/29 0800 06/29 0000 06/28 1600 06/28 0806/28 0000 Intake Total 600 574.4 546.40 561 867 Output Total 350 190 200 215 Balance 250 574.4 356.40 361 652 Intake, IV 300 454.4 546.40 561 867 Intake, Oral 300 120 0 0 Number 2 5 2 0 Bowel Movements Output, Urine 350 190 200 215 Patient 197 lb 196 lb Weight Physical Exam General Appearance: well developed/nourished Extremities: normal inspection, normal capillary refill (edema, wound necrosis) Assessment/Plan Assessment/Plan 75-year-old with multiple medical problems including a nonhealing left leg wound. No significant peripheral arterial disease in the left leg on recent CO2 angiogram. 1.) Will plan for debridement this admission with washout/VAC 2.) Would also cover with antibiotics if possible as the wound has not been healing and in the lack of setting of peripheral arterial disease chronic infection is most likely issue. 3.) Will send deep wound cultures during debridement but if positive we will then recommend coverage with IV antibiotics x 4-6 weeks during HD 4.) No plan for hemodialysis access intervention during this admission. Patient is a high infection risk and has had recent phlebitis in addition to his preferred access/left arm is now being used for IV therapy. Agree with placement of the hemodialysis catheter in the short-term. Will re-vein map after discharge. 5.) Recommend to place Adaptic with gauze and Kerlix for now until debridement 6.) Heel Protection recommended Other Findings/Comments: No significant peripheral arterial disease on recent CO2 angiography Copies To: SAMARIA HEATH,LIV; SAMM HEATH,STEW Jarquin Consult Acknowledgment - Thank you for your consult request. Attending MD Review Statement Attending Statement Attending MD Statement: examined this patient, discussed with family
--- NOTE | 2016-06-29 12:06 | NUR ---
PHYSICAL THERAPY-ATTEMPTED TO SEE Pt. PER NRSG Pt IS IN BED AND EATING AT THIS TIME. WILL F/U APPROPRIATE.
--- NOTE | 2016-06-29 12:24 | ECHOCARDIOGRAM REPORT ---
BENJAMIN SMITH Age: 75 : 1940 Gender: M Exam Date: 06/28/2016 19:33 Exam Location: [facility] Ht (in): 68 Wt (lb): 197 BSA: 2.09 BP: 130 / 70 Ordering Physician: CONCEPCION DONALD MD Referring Physician: CONCEPCION DONALD MD Technologist: Vicki Genao [facility] Room Number: 114-1 Indications: MYOCARDIAL ISCHEMIA/CT Rhythm: Sinus Technical Quality: Limited FINDINGS Left Ventricle Normal size left ventricle. Borderline normal left ventricular ejection fraction estimated at 50-55%. Right Ventricle Normal right ventricular size and function. Right Atrium Normal right atrial size. Left Atrium Mild left atrial dilatation. Mitral Valve Moderate mitral annular calcification. Mild mitral regurgitation. Aortic Valve Diffuse thickening (sclerosis) of the aortic valve cusps without reduced excursion. Mild aortic regurgitation. Tricuspid Valve Tricuspid valve is normal in structure and function. Mild-to- moderate tricuspid regurgitation. Right ventricular systolic pressure estimated to be elevated at 45 mmHg. Pulmonic Valve Pulmonic valve not well visualized, grossly normal. Pericardium No pericardial effusion. Great Vessels Normal size aortic root. CONCLUSIONS Poor LV endocardial definition but normal overall left venricular systolic function. Left atrial enlargement. Moderate Pulmonary hypertension. Zan Burden M.D. (Electronically Signed) Final Date: 29 June 2016 12:24 MEASUREMENTS (Male / Female) Normal Values 2D ECHO LV Diastolic Diameter PLAX 5.1 cm 4.2 - 5.9 / 3.9 - 5.3 cm LV Systolic Diameter PLAX 4.3 cm 2.1 - 4.0 cm LV Fractional Shortening PLAX 15.7 % 25 - 46 % LV Ejection Fraction 2D Teich 32.9 % IVS Diastolic Thickness 1.0 cm LVPW Diastolic Thickness 1.0 cm LV Relative Wall Thickness 0.4 RV Internal Dim ED PLAX 3.3 cm 1.9 - 3.8 cm LVOT Diameter 2.0 cm Aortic Root Diameter 3.2 cm LA Systolic Diameter LX 4.0 cm 3.0 - 4.0 / 2.7 - 3.8 cm LA Volume 77.0 cm 18 - 58 / 22 - 52 cm Ascending Aorta Diameter 2.9 cm DOPPLER AV Peak Velocity 161.0 cm/s AV Peak Gradient 10.4 mmHg AV Mean Velocity 107.0 cm/s AV Mean Gradient 6.0 mmHg AV Velocity Time Integral 29.7 cm LVOT Peak Velocity 117.0 cm/s LVOT Peak Gradient 5.5 mmHg LVOT Mean Velocity 78.2 cm/s LVOT Mean Gradient 3.0 mmHg LVOT Velocity Time Integral 22.4 cm LVOT Stroke Volume 70.4 cm AV Area Cont Eq vti 2.4 cm AV Area Cont Eq pk 2.3 cm MV Peak Velocity 136.5 cm/s MV Peak Gradient 7.5 mmHg MV Mean Velocity 96.8 cm/s MV Mean Gradient 4.5 mmHg Mitral E Point Velocity 115.0 cm/s Mitral A Point Velocity 140.0 cm/s Mitral E to A Ratio 0.8 MV PHT Velocity 133.0 cm/s MV Deceleration [place] 480.0 cm/s MV Pressure Half Time 83.1 ms MV Area PHT 2.6 cm MV Deceleration Time 99.0 ms TR Peak Velocity 328.0 cm/s TR Peak Gradient 43.0 mmHg PV Peak Velocity 113.0 cm/s PV Peak Gradient 5.1 mmHg PV Mean Velocity 73.0 cm/s PV Mean Gradient 3.0 mmHg PV Velocity Time Integral 19.7 cm LV E' Lateral Velocity 11.1 cm/s Mitral E to LV E' Lateral Ratio 10.4 LV E' Septal Velocity 7.5 cm/s Mitral E to LV E' Septal Ratio 15.3
--- NOTE | 2016-06-29 13:06 | PN- Housestaff ---
Subjective Follow-up For: 1- SOB, hoarseness and stridor- much improved today saturating in RA 2- CKD stage V, s/p tunneled cath. insertion on 06/26/16, started on dialysis 3- Elevated troponin, with no EKG changes, on IV heparin 4- Pneumonia based on chest CT, Roma recored from April show similar finding. Patient afebrile and no lekocytosis. Watch off antibiotics 5- Anemia (CKD) and APL syndrome (on coumadin) Tele-Events Since Last Visit: 3 beats of VT at 9:59 pm, HR 110-118, NSR Subjective: Patient is alert and oriented, does not report any SOB, hoarseness has much improved. Has no complaints. Review of Systems Constitutional: Denies: chills, diaphoresis, fever, malaise, weakness. EENTM: Reports: no symptoms. Cardiovascular: Reports: no symptoms. Respiratory: Reports: no symptoms. Gastrointestinal: Reports: no symptoms. Genitourinary: Reports: no symptoms. Objective Last 24 Hrs of Vital Signs/I&O Vital Signs Date Time Temp Pulse Resp B/P Pulse O2 O2 Flow FiO2 Ox Delivery Rate 06/29 1146 94 122/64 06/29 0943 90 142/68 06/29 0801 96 Room Air Room Air 06/29 0800 97.9 90 16 140/70 94 Room Air 06/29 0800 94 Room Air 06/29 0000 96 Room Air / 0000 98.1 84 16 154/70 96 Room Air 06/28 2024 96 Room Air 06/28 2000 96 06/28 1443 Nasal 1.0L Cannula 06/28 1410 93 147/74 Intake & Output 06/29 1600 06/29 0800 06/29 0000 Intake Total 600 574.4 Output Total 350 Balance 250 574.4 Intake, IV 300 454.4 Intake, Oral 300 120 Number 2 5 Bowel Movements Output, Urine 350 Physical Exam General Appearance: Alert, Oriented X3, Cooperative, No Acute Distress Skin: multiple petechia on the shoulders and upper chest bilaterally. Hematoma in the rihght side of the neck, resolving HEENT: Atraumatic, PERRLA, EOMI, Mucous Membr. moist/pink Neck: Supple, No JVD Cardiovascular: Regular Rate, Normal S1, Normal S2, No Murmurs Lungs: Clear to Auscultation, Normal Air Movement Abdomen: Normal Bowel Sounds, Soft, No Tenderness Neurological: Normal Speech, Strength at 5/5 X4 Ext, Normal Tone, Sensation Intact Extremities: No Clubbing, No Cyanosis, Normal Pulses, 2+ pitting edema Vascular: Normal Pulses, Pulses Symmetrical Current Medications: Current Medications Sig/Kailash Start time Last Medication Dose Route Stop Time Status Admin Acetaminophen 1,000 MG ONCE ONE 06/28 2345 CAN N/A 1 UNIT IV 06/28 2359 Acetaminophen 1,000 MG Q6P PRN 06/28 0845 AC 06/28 N/A 1 UNIT IV 2357 Albuterol Sulfate 3 ML BID 06/29 2200 AC INH Albuterol Sulfate 3 ML EVERY 4 HRS/AWAKE 06/26 2000 DC 06/29 INH 1138 Albuterol Sulfate 3 ML Q4H PRN 06/26 0815 AC 06/26 INH 1128 Aspirin 81 MG DAILY 06/26 1938 AC 06/29 PO 0942 Atorvastatin Calcium 40 MG 1700 06/28 1700 AC 06/28 PO 1722 Carvedilol 25 MG BID 06/26 1000 AC 06/29 PO 0943 Dexamethasone 6 MG Q8 06/26 1400 AC 06/29 Dextrose/Water 50 ML IV 0546 Dextrose/Sodium 1,000 ML Q20H 06/27 1515 DC 06/28 Chloride IV 1424 Diphenoxylate HCl/ 2.5 MG TID PRN 06/29 1130 AC 06/29 Atropine PO 1157 Furosemide 80 MG DAILY 06/29 1000 AC 06/29 IV 06/30 2355 0943 Heparin Sodium 5,300 UNIT ONCE ONE 06/29 1130 DC 06/29 (Porcine) IV 06/29 1131 1147 Heparin Sodium 25,000 UNIT Q24H 06/26 1430 AC 06/28 (Porcine) IV 1703 Sodium Chloride 500 ML Insulin Aspart 0 TIDAC 06/29 1200 AC 06/29 SC 1146 Insulin Human Regular 0 TIDAC/HS 06/29 1200 CAN SC Insulin Human Regular 0 Q6 06/27 1800 DC 06/29 SC 0549 Magnesium Oxide 400 MG ONE ONE 06/29 0900 DC 06/29 PO 06/29 0901 0943 Multivitamins 1 TAB DAILY 06/27 1456 AC 06/29 PO 0943 Nystatin 5 ML 4 TIMES/DAY 06/28 1046 AC 06/29 PO 0943 Potassium Chloride 40 MEQ ONCE ONE 06/29 0900 DC 06/29 PO 06/29 0901 0942 Sevelamer Carbonate 800 MG WITH MEALS 06/26 0800 AC 06/29 PO 1147 Tamsulosin HCl 0.4 MG DAILY 06/29 1000 AC 06/29 PO 1146 Vancomycin HCl 500 MG ONCE ONE 06/28 1400 CAN Sodium Chloride 250 ML IV 06/28 1459 Vitamin A/Vitamin D 1 CHAITANYA BID 06/26 1553 AC 06/29 TOP 0943 Zinc Oxide 1 CHAITANYA BID 06/26 1354 AC 06/29 TOP 0943 Last 24 Hrs of Lab/Avtar Results Last 24 Hrs of Labs/Mics: Laboratory Tests 06/29/16 0700: Anion Gap 8, Estimated GFR 31 L, Glucose 327 H, Calcium 7.7 L, Phosphorus 3.7 , Magnesium 1.9, Total Bilirubin 0.4, AST 22, ALT 46, Albumin 2.3 L, PT 18.6 H , INR 1.78 H, APTT 41 H, CBC w Diff MAN DIFF ORDERED, RBC 2.90 L, MCV 94.1 H , MCH 29.2, RDW 19.1 H, MPV 9.4, Gran % 93.4 H, Lymphocytes % 2.4 L, Monocytes % 4.1, Eosinophils % 0, Basophils % 0.1, Segmented Neutrophils 94 H, Lymphocytes 1 L, Monocytes 5, Nucleated RBCs 3 H, Platelet Estimate DECREASED, Polychromasia 1+, Anisocytosis 1+, PUBS MCHC 31.0 L, Absolute Granulocytes 6.5, Absolute Lymphocytes 0.2 L, Absolute Monocytes 0.3, Absolute Eosinophils 0, Absolute Basophils 0 06/28/16 1935: APTT 70 H Assessment/Plan Assessment: Mr. 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 Pretty, crohns disease status post bowel resection and chronic prednisone treatment, kidney stones status post lithotripsy, right toes amputation, femoropopliteal bypass surgery was brought in by ambulance from home for worsening of breathing, hoarseness, stridor for 2 days. Hoarseness and stridor Patient presented with worsening hoarseness, intermittent stridor, difficulty breathing, use of accessory respiratory muscles. He was found to be lethargic but arousable in the emergency room. Significant history of supraglottic edema in April 2016 with hoarseness and stridor. Treated with dexamethazone. MRA and laryngoscopy were normal. Records from [facility] were obtained which had suggested infectious or inflammatory process causing subglottic edema. Soft tissue neck x-ray-Soft tissue films of the neck demonstrate a normal larynx , pharynx and upper trachea. No soft tissue swelling or opaque foreign body is demonstrated. There is no hypopharyngeal distention. * Breathing comfortably in room air * ENT suggested viral etiology and to continue the Dekadron. Vocal cord paralysis is resolved. Bedside swallowing evaluation performed without difficulty. * Continue Decadron 6 mg every 8 hours * On NYSTATIN swish and spit for 7 days for oral thrush Acute hypoxic respiratory failure Patient presented with worsening shortness of breath. Chest x-ray and CAT scan showed left lung consolidation and pneumonia. We started IV ceftaz and IV vancomycin in the emergency room and continued until yesterday. * Records from recent hospitalization in April 2016 showed some of her findings in the long. Patient is afebrile, no leukocytosis. Discontinued vancomycin and ceftaz yesterday, ID agreed. 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 He is following Dr. Pretty as an outpatient. He underwent wound debridement in May 2016 by at [facility], follows up with him regularly. * Dr. Pretty on board, he passed a message through a colleague on the phone the day of admission that there is no need immediate debridement this week. dressing is changed based on instructions from him. * Today I called the office again today and requested a consult for further management of the wound. * Will need to be started on IV ABx for the LLE wound, per Dr. Pretty will start after debridement and sending cultures tomorrow, will follow their recommendation and keep ID on board. Subtherapeutic INR Patient has chronic right upper extremity DVT who is on Coumadin * Coumadin was on hold for possible wound debridement * INR 1.78 * We kept coumadin on hold and started IV heparin given the elevated troponins Chronic kidney disease Chronic kidney disease stage V. Patient looked confused in the emergency room possibly from uremia. * Creatinine 5 on admission, baseline creatinine 4.5. * Tunnelled cath. was placed on the day of admission, underwent dialysis 3 days in a row * Cr this AM: 2.1 Acute coronary syndrome * Denies any chest pain, racing of heart, diaphoresis, nausea, vomiting * Elevated troponins on admission 0.95, went up to 1.11 and 1.12, came down to 0.86 * No acute EKG changes on admission-sinus rhythm, rate 94, QTC 521, no acute ST- T wave changes, repeat ECGs remained unchanged * No cardiac history in the past * Stress test was normal * Recent echo in 2015 normal ejection fraction * Follows Dr. Cohn cheese weigher as an outpatient, Echo- May 2016 showed normal ejection fraction. Stress test was normal. * ECHO: Poor LV endocardial definition but normal overall left venricular systolic function. Left atrial enlargement. Moderate Pulmonary hypertension. Borderline normal left ventricular ejection fraction estimated at 50-55%. Chronic lower extremity swelling * Patient takes Lasix at home * Patient underwent dialysis for 3 days. Dialysis on Friday. * Started IV lasix 80 mg daily today Hypertension * Patient is on amlodipine, carvedilol, hydralazine at home * We held amlodipine and hydralazine for now * Will continue carvedilol 25 BID after modified barium swallow * systolic BP in 110s-140s Diabetes mellitus Accu-Cheks Insulin sliding scale, medium dose Novolog. Levemir 13 units daily * NPO after midnight for debridement, will receive insulin novolin for NPO patient and also D5W-1/2 overnight Chronic kidney disease * Keep calcitriol, sodium citrate, sodium bicarbonate on hold * On renvela and nephrovtie Hypomagnesemia * Replete magnesium Crohn's disease Patient is on chronic prednisone treatment 10 mg daily at home. * Held prednisone in the hospital as patient is on Dexamethazone. DVT prophylaxis subcutaneous Lovenox Diet * renal dialysis diet * NPO after midnight for debridement, will received NPO insulin and D5W-1/2 overnight Pain Mild to moderate pain pathway Tylenol Full code Problem List: 1. Chronic ulcer of left lower extremity 2. Antiphospholipid antibody syndrome 3. Elevated troponin 4. Supraglottic edema 5. End stage renal disease 6. NSTEMI (non-ST elevated myocardial infarction) 7. Crohn disease Pain Ratin Pain Location: left lower leg Pain Goal: Pain 4 or less Pain Plan: IV acetaminophen Tomorrow's Labs & Rationales: CBC (anemia, wound infection), BEP and Mg (on dialysis)
--- NOTE | 2016-06-29 14:42 | Event Note ---
Event Note Event Note: US Insurance Executive was at bedside to do lower extremity Doppler to rule out DVT, patient was in extreme pain, he was screaming, he couldn't tolerate the test. According to his previous records, he has an IVC filter placed at 01/12/2016. bilateral lower extremity ultrasound Doppler discontinued.
[2016-06-29 15:55] LABS: PT 16.5 SEC (9.4-12.5)
[2016-06-29 15:57] LABS: PTT 120 SEC (25-37)
[2016-06-29 16:00] VITALS: BP 138/68
[2016-06-30] VITALS: BP 140/50
[2016-06-30 01:34] LABS: PTT < 20 SEC (25-37)
--- NOTE | 2016-06-30 01:48 | NUR ---
PT A/O X 3 JACKSON TO COMMAND, COLOR GOOD SKIN WARM DRY EXPELLS LOOSE YELLOW STOOL OB+ BUTTOCK VERY EXCORIATED BALM APPLIED. LAC IV REMOVED ARM EDEMATOUS AND WEEPING PT DENIES PAIN, NO REDNESS UNABLE TO RESTART IV VERY DIFFICULT TO OBTAIN BLOOD TEST 3 NURSES ATTEMPTED. BS 427 DR DAHL AWARE, MEDICATED WITH NOVOLOG INSULIN DISCUSSED WITH MD. IV DNS STARTED AT 50ML/H NPO AFTER MN.
[2016-06-30 08:00] VITALS: BP 142/64
--- NOTE | 2016-06-30 09:22 | PN- Infect Dx ---
Subjective Subjective: Afebrile on steroids. He feels well with no complaints at this time. Objective Last 24 Hrs of Vital Signs/I&O Vital Signs Date Time Temp Pulse Resp B/P Pulse O2 O2 Flow FiO2 Ox Delivery Rate 06/30 0800 97.8 94 22 142/64 94 Room Air 06/30 0000 97.0 85 20 140/50 99 Room Air Room Air 06/29 2038 94 Room Air Room Air 06/29 1600 98.9 94 22 138/68 98 Room Air 06/29 1146 94 122/64 06/29 0943 90 142/68 Intake & Output 06/30 1600 06/30 0800 06/30 0000 Intake Total 562 384.4 Output Total 500 600 Balance 62 -215.6 Intake, IV 562 334.4 Intake, Oral 50 Number 1 2 Bowel Movements Output, Urine 500 600 Patient 0 lb Weight Physical Exam Other Physical Findings: He appears comfortable in no acute distress. His hoarseness has improved Neck tunneled catheter in the right upper chest with no inflammation at the site Lungs decreased breath sounds at the left base Heart regular rhythm with no murmur Extremities left leg dressing intact Results Last 24 Hours of Lab Results: Laboratory Tests 06/30 06/30 06/29 06/29 0850 0045 1515 1310 Chemistry Sodium Pending Potassium Pending Chloride Pending Carbon Dioxide Pending Anion Gap Pending BUN Pending Creatinine Pending BUN/Creatinine Ratio Pending Magnesium Pending Coagulation PT (9.4 - 12.5 SEC) 16.5 H Cancelled INR (0.90 - 1.17) 1.58 H Cancelled APTT (25 - 37 SEC) Pending < 20 L 120 *H Hematology CBC w Diff Pending WBC Pending RBC Pending Hgb Pending Hct Pending MCV Pending MCH Pending RDW Pending Plt Count Pending MPV Pending PUBS MCHC Pending Last 24 Hours of Avtar Results: No recent cultures Assessment/Plan Impression: Stable off antibiotics with temperatures and white blood cell count remaining normal. His respiratory status also remains stable with no oxygen requirements. He is scheduled for debridement of the left calf ulcer later today. He has received a significant amount of antibiotics over the past several weeks, primarily for the necrotic left calf ulcer, based on previous OR cultures; therefore do not feel further antibiotics are warranted at this time. Suggestion: 1. Await debridement of the left leg ulcer later today in the OR 2. Would taper steroids per ENT 3. Continue to follow off antibiotics
--- NOTE | 2016-06-30 09:30 | NUR ---
Patient was transported to OR at approx 0915 on web press operator helper offset. Report given to OR nurse Cohen. Blood sugar >400 at 0830 and pt was covered with 10 units regular insulin per order. Pt has been NPO after midnight. Heparin gtt was turned off at time of transfer to OR. Vitals stable and pt denies pain. Dr. Pretty discussed POC with and patient and plan is for debridement with wound vac placement.
[2016-06-30 09:35] LABS: ABSOLUTE BASOPHIL COUNT 0 /CUMM (0.0-0.2); ABSOLUTE EOSINOPHIL COUNT 0 /CUMM (0.0-0.7); ABSOLUTE GRANULOCYTE CT 7.5 /CUMM (1.4-6.5); ABSOLUTE LYMPH COUNT 0.1 /CUMM (1.2-3.4); ABSOLUTE MONOCYTE COUNT 0.3 /CUMM (0.10-0.60); BASOPHIL % 0 % (0.0-2.0); EOSINOPHIL % 0 % (0-5); GRANULOCYTE % 94.9 % (42.2-75.2); MEAN CORPUSCULAR HGB 29.2 PG (27.0-31.0); MEAN CORPUSCULAR HGB CONC 30.9 G/DL (33.0-37.0); MEAN CORPUSCULAR VOLUME 94.6 FL (80.0-94.0); MEAN PLATELET VOLUME 9.9 FL (7.4-10.4); PLATELET COUNT 129 /CUMM (130-400); RBC DISTRIBUTION WIDTH 18.9 % (11.5-14.5); RED BLOOD CELL CT 3.48 /CUMM (4.70-6.10); WHITE BLOOD CELL COUNT 7.9 /CUMM (4.8-10.8)
[2016-06-30 10:22] LABS: PTT > 120 SEC (25-37)
--- NOTE | 2016-06-30 11:49 | Operative Report ---
Operative/Inv Procedure Report Surgery Date: 06/30/16 Name of Procedure: Excisional debridement of left lower extremity through subcutaneous and musculature tissue greater than 20 cm, bacitracin washout, deep tissue wound culture, placement of a vacuum-assisted closure Pre-Operative Diagnosis: Left lower extremity nonhealing wound Post-Operative Diagnosis: Same Estimated Blood Loss: scant Surgeon/Tapper Shank: HONORIO GARIBAY MD Anesthesia: local monitored anesthesi Specimens: Biopsy and deep tissue culture sent before administration of antibiotics Microbiology: Deep tissue culture sent of left leg. This was below the debridement level and therefore if bacterial pathogen is present suggest chronic wound infection Complications: None Condition: Stable to recovery Operative Indication: 75-year-old male with a history of multiple medical problems including Crohn's disease on steroids, antiphospholipid on anticoagulation, DVT, peripheral arterial disease and recent nonhealing left lower extremity wound. Patient previously had a CO2 angiogram which does not demonstrate significant peripheral arterial disease of the left leg. He's had a chronic wound which may be related to diabetic wound infection, chronic steroid use as well as venous insufficiency. He has necrosis of the wound were required debridement today. Risk, benefits and alternatives were explained to the patient including bleeding , infection, pain, scar and limb loss. He decided to proceed. Operative/Procedure Note Note: Patient laid supine on the operating room table. Timeout was held in accordance with [facility] policy. Patient was prepped and draped in the usual sterile surgical fashion. Wide excisional debridement was then carried out through the skin subcutaneous and musculotendinous tissue of all necrotic tissue. This was performed with a 15 blade, Metzenbaum scissors and curettes. This increased the size of the wound in all directions. The wound now extends towards the ankle and foot area. Seropurulent type drainage was noted consistent with a chronic infected field. Wound cultures were taken and then antibiotics were administered after. The wound was copiously pulse irrigated with bacitracin saline. Hemostasis was achieved with manual compression. A VAC dressing was then placed on the left leg. Sponge needle and instrument counts were correct. Patient was transported to the recovery area. We'll follow up on cultures but suggest continued antibiotic therapy as the patient's leg is now compromised and he is at high risk for limb loss. Would also recommend decreasing steroids if possible to aid in wound healing. Findings: Seropurulent type discharge with necrosis suggesting chronic infection and steroid use inhibiting wound healing. Discharge Disposition: PACU CC: JUNE HEATH,ИРИНА Palm; SAMM HEATH,STEW Jarquin
--- NOTE | 2016-06-30 11:51 | PN- Vascular Surgery ---
Surgical Brief Attending Note Brief Attending Note: VASCULAR ATTENDING NOTE: Of note patient has compromised IV access. Patient has history of upper extremity phlebitis and possibly DVT. However, recent ultrasound does not demonstrate DVT of the right arm. Due to his compromised IV access it is reasonable to use his right arm. We'll also recommend consideration for hyperbaric oxygen therapy. Recommend wound consult this week. If possible please decrease his steroids to aid in wound healing. Await bacterial cultures.
[2016-06-30 12:42] VITALS: BP 128/64
--- NOTE | 2016-06-30 12:43 | PN- Housestaff ---
Subjective Follow-up For: Follow-up laryngeal edema CKG stage V, status posttraumatic catheter Anemia Antiphospholipid syndrome on coumadin Complaints: no complaints Subjective: She is seen and examined at the bedside. He was alert and oriented to time, place and person. He denies of any shortness of breath, hoarseness. He is going for debridement of his wound. Review of Systems Constitutional: Reports: malaise, weakness. EENTM: Denies: no symptoms. Cardiovascular: Denies: no symptoms. Respiratory: Denies: no symptoms. Gastrointestinal: Denies: no symptoms. Genitourinary: Denies: no symptoms. Skin: Reports: erythema. Neurological/Psychological: Denies: no symptoms. Objective Last 24 Hrs of Vital Signs/I&O Vital Signs Date Time Temp Pulse Resp B/P Pulse O2 O2 Flow FiO2 Ox Delivery Rate 06/30 1600 84 Room Air 06/30 1600 97.0 88 22 118/74 94 Room Air 06/30 1300 82 128/64 06/30 1300 84 128/64 06/30 1242 98.1 92 22 128/64 98 Nasal 3.0L Cannula 06/30 0800 97.8 94 22 142/64 94 Room Air 06/30 0800 94 Room Air / 0000 97.0 85 20 140/50 99 Room Air Room Air 06/29 2038 94 Room Air Room Air Intake & Output 06/30 1600 06/30 0800 / 0000 Intake Total 420 562 384.4 Output Total 350 500 600 Balance 70 62 -215.6 Intake, IV 200 562 334.4 Intake, Oral 220 50 Number 1 2 Bowel Movements Output, Urine 350 500 600 Patient kg Weight Physical Exam General Appearance: Alert, Oriented X3, Cooperative, No Acute Distress Skin: patient is having bilateral leg amputation, and he has had rash on right side of his neck, he is having wound on his both lower legs HEENT: Atraumatic, PERRLA, EOMI Neck: Supple, there is rash on the right side Cardiovascular: Regular Rate, Normal S1, Normal S2 Lungs: crepts on the Base Abdomen: Soft, No Tenderness Extremities: bilateral amputation of the legs, tenderness on examination, nondistressed on the left side of the leg, Vascular: peripheral pulses are normal in the both hands Assessment/Plan Assessment: Mr. 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 Pretty, crohns disease status post bowel resection and chronic prednisone treatment, kidney stones status post lithotripsy, right toes amputation, femoropopliteal bypass surgery was brought in by ambulance from home for worsening of breathing, hoarseness, stridor for 2 days. * Talked to Dr. Oscar Harden MD according to him, patient does not require any antibiotic * We placed wound consult. Hoarseness and stridor Patient presented with worsening hoarseness, intermittent stridor, difficulty breathing, use of accessory respiratory muscles. He was found to be lethargic but arousable in the emergency room. Significant history of supraglottic edema in April 2016 with hoarseness and stridor. Treated with dexamethazone. MRA and laryngoscopy were normal. Records from [facility] were obtained which had suggested infectious or inflammatory process causing subglottic edema. Soft tissue neck x-ray-Soft tissue films of the neck demonstrate a normal larynx , pharynx and upper trachea. No soft tissue swelling or opaque foreign body is demonstrated. There is no hypopharyngeal distention. * Breathing comfortably on room air * ENT suggested viral etiology and to continue the Dekadron. Vocal cord paralysis is resolved. Bedside swallowing evaluation performed without difficulty. * Continue Decadron 6 mg every 8 hours * We will discuss with the ENT to decrease down the Decadron dose is because it decrease in the wound healing in the leg * On NYSTATIN swish and spit for 7 days for oral thrush Acute hypoxic respiratory failure Patient presented with worsening shortness of breath. Chest x-ray and CAT scan showed left lung consolidation and pneumonia. We started IV ceftaz and IV vancomycin in the emergency room and and stopped now.Records from recent hospitalization in April 2016 showed some of her findings are long-standing. Patient is afebrile, no leukocytosis. 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 He is following Dr. Pretty as an outpatient. He underwent wound debridement in May 2016 and 06/30/2016 by at [facility], follows up with him regularly. * Wound Debridement is done today by Dr. Pretty, and advised for wound consult * We placed a consult for and asked for hyperbaric oxygenation therapy * According to Dr. Pretty patient need antibiotic therapy for left lower limb but I discussed with the Oscar Harden MD according to him, patient does not need antibiotics therapy at all .we will follow the culture sent 10/2015 after debridement. * We will discuss with the ENT to decrease down the Decadron dose is because it decrease in the wound healing in the leg. Subtherapeutic INR Patient has chronic right upper extremity DVT was on Coumadin * Coumadin was on hold for possible wound debridement, we discuss tmr to restart it. * We kept coumadin on hold and started IV heparin given the elevated troponins Chronic kidney disease Stage V * Creatinine 5 on admission, baseline creatinine 4.5. * Tunnelled cath. was placed on the day of admission, underwent dialysis 3 days in a row * Cr this AM: 2.9 Acute coronary syndrome * Denies any chest pain, racing of heart, diaphoresis, nausea, vomiting * Elevated troponins on admission 0.95, went up to 1.11 and 1.12, came down to 0.86 * No acute EKG changes on admission-sinus rhythm, rate 94, QTC 521, no acute ST- T wave changes, repeat ECGs remained unchanged * No cardiac history in the past, Stress test was normal * Recent echo in 2016 normal ejection fraction * Follows Dr. Cohn moss picker as an outpatient, Echo- May 2016 showed normal ejection fraction. Stress test was normal. * ECHO: Poor LV endocardial definition but normal overall left venricular systolic function. Left atrial enlargement. Moderate Pulmonary hypertension. Borderline normal left ventricular ejection fraction estimated at 50-55%. Chronic lower extremity swelling * Patient takes Lasix at home * Patient underwent dialysis for 3 days. * We will continue IV lasix 80 mg daily * Patient went to OR for debridement. Hypertension -well managed * Patient is on amlodipine, carvedilol, hydralazine at home * We held amlodipine and hydralazine for now * Will continue carvedilol 25 BID Diabetes mellitus Today, his blood sugars were very high, more than 400, We took the consult from the Eddi Hilton MD. * Injection Levemir 14 units twice a day * We will check blood sugar 3 times a day and give NovoLog according to the sliding scale as suggested by Dr. Hilton. Chronic kidney disease * Keep calcitriol, sodium citrate, sodium bicarbonate on hold * On renvela and nephrovitamin Hypomagnesemia -recovered mg -1.9 * We will regularly monitor the magnesium Crohn's disease Patient is on chronic prednisone treatment 10 mg daily at home. * Held prednisone in the hospital as patient is on Dexamethazone. DVT prophylaxis * We will stop Lovenox as the patient is having chronic kidney disease, and continued heparin. Will conside coumadin from tomorrow Diet * renal dialysis diet * NPO after midnight for debridement, will received NPO insulin and D5W-1/2 overnight Pain Mild to moderate pain pathway Tylenol Code Status - Full code Problem List: 1. Chronic ulcer of left lower extremity 2. Antiphospholipid antibody syndrome 3. Elevated troponin 4. Supraglottic edema 5. End stage renal disease 6. Left leg cellulitis 7. Crohn disease 8. Cellulitis Pain Ratin Pain Location: lower legs Pain Goal: Remain pain free Pain Plan: moderate to severe Tomorrow's Labs & Rationales: cbc, icu bundle DVT/Prophylaxis: mechanical, pharmacological
--- NOTE | 2016-06-30 13:13 | NUR ---
Patient arrived back to [facility] from OR s/p debridement of LLE wound with wound vac placement. Pt tolerated procedure well and vitals are currently stable. Heparin gtt was restarted at 1230 per orders at a rate of 23.9mls/hr with the next PTT due at 1830 per housestaff (order entered). Blood sugar noted to be [address] Alcantar notified- consult to be placed with Dr. Hitlon and insulin SS to be changed and levemir to be added. Morning meds given at this time. Pt is currently tolerating his po diet well post surgery. Wwound vac is in place with scant bloody drainage noted. Dr. Gomez to be consulted for recommendations for hyperbarics. IVF d/c per order. Will continue to closely monitor patient.
--- NOTE | 2016-06-30 14:55 | NUR ---
Per Dr. Pretty- pts right upper extremity can be used for BP, blood draw, etc. No longer needs to be a restricted extremity r/t ? DVT.
[2016-06-30 16:00] VITALS: BP 118/74
--- NOTE | 2016-06-30 17:03 | Cons- Endocrinology ---
General Information and HPI Consulting Request Date of Consult: 06/30/16 Requested By: medical team Reason for Consult: Uncontrolled diabetes Source of Information: family, old records Exam Limitations: no limitations History of Present Illness: This 75-year-old male was brought to the emergency room because of trouble breathing. He woke up in the morning and was unable to catch his breath. He was felt to have some upper airway stridor and was started on high-dose steroid therapy in the form of dexamethasone 6 mg every 8 hours. He has been on this for 5 days. The patient has a history history of diabetes mellitus type II treated with insulin. His blood sugars become progressively elevated to over 400 today since beginning his steroid therapy. His last fingerstick blood sugar was 320. At home the patient controlled his sugar on much smaller doses of insulin. He was on Levemir 13 units once a day in the morning and sliding-scale NovoLog starting with 4 units for 80-150, and 5 units for 151-200. His baseline dose of prednisone is 10 mg once a day which he takes for his Crohn's disease. This patient also has a history of end-stage renal disease and has been started on dialysis. There was a component of fluid overload on admission with bilateral pleural effusions. His noted a great deal of edema in his soft tissues prior to admission. At this time the patient states that his breathing is good. CT scan of the chest revealed some left lower lobe opacity which was present previously and the bilateral pleural effusions as noted above. CT scan of the neck does not reveal any vocal cord edema or retropharyngeal fluid collection. The patient also is been treated for peripheral vascular disease and has an ulceration on his left lower leg. He underwent debridement by Dr. Pretty for this problem today. He has a past history of Crohn's disease and has been on prednisone 10 mg once a day as mentioned above. He also has a history of antiphospholipid syndrome. Allergies/Medications Allergies: Coded Allergies: Sulfa (Sulfonamide Antibiotics) (Mild, HIVES 06/15/16) Home Med List: Amlodipine Besylate 10 MG TABLET 1 TAB PO DAILY BP (Reported) Calcitriol (Rocaltrol) 0.25 MCG CAPSULE 1 CAP PO DAILY KIDNEYS (Reported) Calcium Carbonate/Vitamin D3 (Os-Vishal 500+D3 Caplet) 500 MG-600 TABLET 1 TAB PO TID SUPPLEMENT (Reported) Carvedilol 25 MG TABLET 1 TAB PO BID HEART (Reported) Citric Acid/Sodium Citrate (Cytra-2 Oral Solution) 473 ML SOLUTION 15 ML PO BID KIDNEYS (Reported) Cyanocobalamin (Vitamin B-12) 1,000 MCG TABLET 1 TAB PO DAILY SUPPLEMENT ( Reported) Ferrous Sulfate 325 MG (65 MG IRON) TABLET 1 TAB PO TID SUPPLEMENT (Reported) Furosemide 80 MG TABLET 1 TAB PO BID LEG SWELLING (Reported) Hydralazine HCl 50 MG TABLET 1 TAB PO BID HEART (Reported) Insulin Aspart (Novolog) 100 UNIT/ML VIAL DM (Reported) Insulin Detemir (Levemir) 100 UNIT/ML VIAL 13 UNITS SC DAILY QAM DM Multivit-Min/FA/Lycopen/Lutein (Centrum Silver Tablet) 1 EACH TABLET 1 TAB PO DAILY SUPPLEMENT (Reported) Oxycodone HCl/Acetaminophen (Percocet 5-325 MG Tablet) 5 MG-325 MG TABLET 1 TAB PO BID PRN PAIN Prednisone 10 MG TABLET 1 TAB PO DAILY KIDNEYS (Reported) Sevelamer Carbonate (Renvela) 800 MG TABLET 1 TAB PO TIDWM KIDNEYS (Reported) Sodium Bicarbonate 325 MG TABLET 1 TAB PO BID KIDNEYS (Reported) Tramadol HCl 50 MG TABLET 1 TAB PO BIDP PRN PAIN (Reported) Vitamin B Complex (B Complex) 1 EACH TABLET 1 TAB PO DAILY SUPPLEMENT ( Reported) Warfarin Sodium (Coumadin) 5 MG TABLET 1 TAB PO DAILY BLOOD THINNER (Reported ) DOSE ACCORDING TO INR Past History Travel History Traveled to [place] past 21 day No Medical History Blood Transfusion Hx: Yes Neurological: NONE EENT: NONE Cardiovascular: PVD, DVT Respiratory: pneumonia Gastrointestinal: Crohn's disease Hepatic: NONE Renal: nephrolithiasis, CKD Musculoskeletal: VASCULAR OCCLUSION RIGHT LEG RIGHT PATELLA FRACTURE WITH orif NON HEALING WOUNDS R. 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 Home Who Do You Live With? spouse Services at Home: None Primary Language: Turkmen Smoking Status: Former Smoker ETOH Use: denies use Illicit Drug Use: denies illicit drug use Functional Ability ADLs Independent: dressing, eating, toileting, bathing. Ambulation: walker IADLs Needs Assist: shopping, housework, finances, food prep, telephone, transportation, medication admin. ECHO Results (as available) Date of last Echo 12/11/15 EF% 65 Exam & Diagnostic Data Last 24 Hrs of Vital Signs/I&O Vital Signs Date Time Temp Pulse Resp B/P Pulse O2 O2 Flow FiO2 Ox Delivery Rate 06/30 1300 82 128/64 06/30 1300 84 128/64 06/30 1242 98.1 92 22 128/64 98 Nasal 3.0L Cannula 06/30 0800 97.8 94 22 142/64 94 Room Air 06/30 0800 94 Room Air 06/30 0000 97.0 85 20 140/50 99 Room Air Room Air 06/29 2038 94 Room Air Room Air Intake & Output 06/30 1600 06/30 0800 12 0000 Intake Total 420 562 384.4 Output Total 350 500 600 Balance 70 62 -215.6 Intake, IV 200 562 334.4 Intake, Oral 220 50 Number 1 2 Bowel Movements Output, Urine 350 500 600 Patient 0 lb Weight Vital Signs Date Time Temp Pulse Resp B/P Pulse O2 O2 Flow FiO2 Ox Delivery Rate 06/30 1300 82 128/64 06/30 1300 84 128/64 06/30 1242 98.1 92 22 128/64 98 Nasal 3.0L Cannula 06/30 0800 97.8 94 22 142/64 94 Room Air 06/30 0800 94 Room Air / 0000 97.0 85 20 140/50 99 Room Air Room Air 06/29 203 94 Room Air Room Air Intake & Output 06/30 1600 06/30 0800 12 0000 Intake Total 420 562 384.4 Output Total 350 500 600 Balance 70 62 -215.6 Intake, IV 200 562 334.4 Intake, Oral 220 50 Number 1 2 Bowel Movements Output, Urine 350 500 600 Patient 0 lb Weight Physical Exam General Appearance: well developed/nourished, no apparent distress, alert, awake Head: normal appearance Eyes: Bilateral: normal appearance. Neck: normal inspection Respiratory: normal breath sounds Cardiovascular: regular rate/rhythm Gastrointestinal: normal bowel sounds, soft Extremities: left lower leg bandaged Labs/Avtar Results: Laboratory Tests 06/30 06/30 0850 0045 Chemistry Sodium (137 - 145 mmol/L) 137 Potassium (3.5 - 5.1 mmol/L) 4.4 Chloride (98 - 107 mmol/L) 101 Carbon Dioxide (22 - 30 mmol/L) 24 Anion Gap (5 - 16) 13 BUN (9 - 20 mg/dL) 57 H Creatinine (0.7 - 1.2 mg/dL) 2.9 H Estimated GFR (>60 ml/min) 21 L BUN/Creatinine Ratio (7 - 25 %) 19.7 Magnesium (1.6 - 2.3 mg/dL) 1.9 Coagulation APTT (25 - 37 SEC) > 120 *H < 20 L Hematology CBC w Diff MAN DIFF ORDERED WBC (4.8 - 10.8 /CUMM) 7.9 RBC (4.70 - 6.10 /CUMM) 3.48 L Hgb (14.0 - 18.0 G/DL) 10.2 L Hct (42 - 52 %) 33.0 L MCV (80.0 - 94.0 FL) 94.6 H MCH (27.0 - 31.0 PG) 29.2 RDW (11.5 - 14.5 %) 18.9 H Plt Count (130 - 400 /CUMM) 129 L MPV (7.4 - 10.4 FL) 9.9 Gran % (42.2 - 75.2 %) 94.9 H Lymphocytes % (20.5 - 51.1 %) 1.7 L Monocytes % (1.7 - 9.3 %) 3.4 Eosinophils % (0 - 5 %) 0 Basophils % (0.0 - 2.0 %) 0 L Segmented Neutrophils (42.2 - 75.2 %) 95 H Lymphocytes (20.5 - 51.1 %) 2 L Monocytes (1.7 - 9.3 %) 3 Nucleated RBCs (0.0 - 0.0 /100WBC) 1 H Platelet Estimate (ADEQUATE) DECREASED Polychromasia 1+ Anisocytosis 1+ PUBS MCHC (33.0 - 37.0 G/DL) 30.9 L Immunology Absolute Granulocytes (1.4 - 6.5 /CUMM) 7.5 H Absolute Lymphocytes (1.2 - 3.4 /CUMM) 0.1 L Absolute Monocytes (0.10 - 0.60 /CUMM) 0.3 Absolute Eosinophils (0.0 - 0.7 /CUMM) 0 Absolute Basophils (0.0 - 0.2 /CUMM) 0 Assessment/Plan Assessment/Plan This patient has type 2 diabetes mellitus aggravated by steroid therapy. His blood sugars have become very high secondary to a high dose of dexamethasone. We need to adjust his insulin. Suggest increase Levemir to 14 units twice a day. In addition we need to adjust his sliding scale NovoLog before meals. Sliding scale NovoLog before meals should be 80-150 give 6 units NovoLog, 151- 200 give 8 units NovoLog, 201-250 give 10 units NovoLog, 251-300 give 12 units NovoLog, 301-350 give 14 units NovoLog, 351 of 400 give 16 units NovoLog. A separate bedtime sliding scale NovoLog should be written. Bedtime sliding scale NovoLog should be less than 250 give no insulin, 251-300 give 3 units NovoLog, 301-350 give 4 units NovoLog, 351-400 give 5 units NovoLog. We need to contact ENT so that they can begin to reduce the dose of this patient steroids. He does not seem to have any respiratory stridor at this time. His shortness of breath on admission was probably a combination of some upper airway stridor as well as fluid overload. Consult Acknowledgment - Thank you for your consult request.
--- NOTE | 2016-06-30 17:57 | Event Note ---
Event Note Event Note: She was having a very high blood sugars, so we called Dr. Hilton to adjust the insulin. He advised to decrease the steroid dose is and call ENT tomorrow. He also told to give 14 units of Levemir twice a day and insulin according to sliding scale as he advised.
[2016-06-30 19:27] LABS: PTT 64 SEC (25-37)
--- NOTE | 2016-06-30 20:46 | NUR ---
PT A/O JACKSON TO COMMAND. UPPER EXTREMITIES EDEMATOUS AND WEEPING ELEVATED ON PILLOWS. PT NEEDS ENCOURAGEMENT TO MORE IN BED. EXPELLED LG AMT SEMI FORMED STOOL YELLOW OB+.
[2016-06-30 22:35] VITALS: BP 130/80
--- NOTE | 2016-07-01 06:40 | PN- Vascular Surgery ---
Subjective Subjective: Pt is awaiting dialysis. No complaints in regard to the leg. Objective Vital Signs and I&Os Vital Signs Date Time Temp Pulse Resp B/P Pulse O2 O2 Flow FiO2 Ox Delivery Rate 06/30 2235 97.0 83 18 130/80 95 Room Air Room Air 06/307 85 130/80 06/30 2037 96 Room Air Room Air 06/30 1600 84 Room Air 06/30 1600 97.0 88 22 118/74 94 Room Air 06/30 1300 82 128/64 06/30 1300 84 128/64 06/30 1242 98.1 92 22 128/64 98 Nasal 3.0L Cannula 06/30 08 97.8 94 22 142/64 94 Room Air 06/30 08 94 Room Air Intake & Output 07/01 0800 07/01 0000 06/30 1600 06/30 0800 06/30 0000 06/29 1600 Intake Total 311 420 562 384.4 775 Output Total 850 350 500 600 600 Balance -539 70 62 -215.6 175 Intake, IV 191 200 562 334.4 175 Intake, Oral 120 220 50 600 Number 2 1 2 Bowel Movements Output, Urine 850 350 500 600 600 Patient 0 lb Weight Physical Exam: Gen: Anisarca Ext: dressing/nuha wrap remains c/d/i. vac is functioning well. L foot is warm. Good cap refill. Assessment/Plan Assessment/Plan 75 yo M pod #1 s/p LLE debridement and wound vac placement. -Continue vac to intermittent suction. -Pt is awaitin dialysis today. -Ok to continue heparin. -Minimize steroids as much as possible for wound healing. -Will d/w Dr. Pretty timing of next vac change.
--- NOTE | 2016-07-01 06:42 | NUR ---
UNABLE TO OBTAIN B/W THIS AM DR MENDOZA AWARE.
--- NOTE | 2016-07-01 07:27 | PN- Diabetes ---
Assessment/Plan Assessment: Patient has type 2 diabetes which is being aggravated by high-dose steroid therapy. He has no stridor at present and we are awaiting the return of the ENT service so that his steroids can be tapered. His insulin was increased last night and his fingerstick blood sugar this morning is 162. There is difficulty in drawing his labs and thus no other blood work is available at this time. Plan: Suggest continue the present insulin regimen. If his steroids are tapered we will need to begin to reduce his insulin coverage. Subjective Subjective: Feels okay but discouraged that they cannot get his blood Review of Systems Constitutional: Denies: chills, fever. Cardiovascular: Denies: chest pain. Respiratory: Denies: short of breath. Gastrointestinal: Denies: abdominal pain. Hematologic/Endocrine: Reports: bruising. Objective Last 24 Hrs of Vital Signs/I&O Vital Signs Date Time Temp Pulse Resp B/P Pulse O2 O2 Flow FiO2 Ox Delivery Rate 06/30 2235 97.0 83 18 130/80 95 Room Air Room Air 06/30 2137 85 130/80 06/30 2037 96 Room Air Room Air 06/30 1600 84 Room Air 06/30 1600 97.0 88 22 118/74 94 Room Air 06/30 1300 82 128/64 06/30 1300 84 128/64 06/30 1242 98.1 92 22 128/64 98 Nasal 3.0L Cannula 06/30 800 97.8 94 22 142/64 94 Room Air 06/30 0800 94 Room Air Intake & Output 07/01 0800 12/05 0000 06/30 1600 Intake Total 291.2 311 420 Output Total 500 850 350 Balance -208.8 -539 70 Intake, IV 191.2 191 200 Intake, Oral 100 120 220 Number 2 2 Bowel Movements Output, Urine 500 850 350 Patient 0 lb Weight Vital Signs Date Time Temp Pulse Resp B/P Pulse O2 O2 Flow FiO2 Ox Delivery Rate 06/30 2235 97.0 83 18 130/80 95 Room Air Room Air 06/30 2137 85 130/80 06/30 2037 96 Room Air Room Air 06/30 1600 84 Room Air 06/30 1600 97.0 88 22 118/74 94 Room Air 06/30 1300 82 128/64 06/30 1300 84 128/64 06/30 1242 98.1 92 22 128/64 98 Nasal 3.0L Cannula 06/30 0800 97.8 94 22 142/64 94 Room Air 06/30 0800 94 Room Air Intake & Output 07/01 0800 07/01 0000 06/30 1600 Intake Total 291.2 311 420 Output Total 500 850 350 Balance -208.8 -539 70 Intake, IV 191.2 191 200 Intake, Oral 100 120 220 Number 2 2 Bowel Movements Output, Urine 500 850 350 Patient 0 lb Weight Physical Exam General Appearance: alert, awake, comfortable Neck: normal inspection Respiratory: normal breath sounds Cardiovascular: regular rate/rhythm Abdomen: normal bowel sounds Extremities: left lower leg bandaged Current Medications: Current Medications Sig/Kailash Start time Last Medication Dose Route Stop Time Status Admin Acetaminophen 1,000 MG Q6P PRN 06/30 1200 AC 06/30 N/A 1 UNIT IV 1617 Acetaminophen 1,000 MG Q6P PRN 06/28 0845 DC 06/29 N/A 1 UNIT IV 1946 Albuterol Sulfate 3 ML BID 06/30 2200 AC 06/30 INH 2036 Albuterol Sulfate 3 ML Q4H PRN 06/30 1200 AC INH Albuterol Sulfate 3 ML BID 06/29 2200 DC INH Albuterol Sulfate 3 ML Q4H PRN 06/26 0815 DC 06/26 INH 1128 Aspirin 81 MG DAILY 07/01 1000 AC 06/30 PO 1300 Aspirin 81 MG DAILY 06/26 1938 DC 06/29 PO 0942 Atorvastatin Calcium 40 MG 1700 06/30 1700 AC 06/30 PO 1641 Atorvastatin Calcium 40 MG 1700 06/28 1700 DC 06/29 PO 1632 Carvedilol 25 MG BID 06/30 2200 AC 06/30 PO 2137 Carvedilol 25 MG BID 06/26 1000 DC 12 PO 2136 Dexamethasone 6 MG Q8 07/01 0600 AC 07/01 IV 0603 Dexamethasone 6 MG Q8 06/30 1400 DC 06/30 Dextrose/Water 50 ML IV 2136 Dexamethasone 6 MG Q8 06/26 1400 DC 06/30 Dextrose/Water 50 ML IV 0626 Dextrose/Sodium 1,000 ML Q20H 06/30 1200 CAN Chloride IV Dextrose/Sodium 1,000 ML Q20H 06/30 0130 DC 06/30 [place]ide IV 0132 Diphenoxylate HCl/ 2.5 MG TID PRN 06/30 1200 AC 07/01 Atropine PO 0603 Diphenoxylate HCl/ 2.5 MG TID PRN 06/29 1130 DC 06/30 Atropine PO 0636 Fentanyl Citrate 200 MCG .STK-MED ONE 06/30 0941 DC IM 06/30 0942 Furosemide 80 MG DAILY 07/01 1000 AC 06/30 IV 1232 Furosemide 80 MG DAILY 06/29 1000 DC 06/29 IV 06/30 2355 0943 Heparin Sodium 25,000 UNIT Q24H 06/30 1200 AC 06/30 (Porcine) IV 1238 Sodium Chloride 500 ML Heparin Sodium 25,000 UNIT Q24H 06/26 1430 DC 06/30 (Porcine) IV 0313 Sodium Chloride 500 ML Hydromorphone HCl 2 MG .STK-MED ONE 06/30 1131 DC IM 06/30 1132 Insulin Aspart 0 TIDAC/HS 06/30 2100 AC 06/30 SC 2139 Insulin Aspart 0 TIDAC 06/30 1200 DC 06/30 SC 1641 Insulin Aspart 10 UNITS ONCE ONE 06/30 0830 CAN SC 06/30 0831 Insulin Detemir 14 UNITS BID 06/30 2200 AC 06/30 SC 2138 Insulin Detemir 7 UNITS BID 06/30 1245 DC 06/30 SC 1400 Insulin Human Regular 10 UNITS ONCE ONE 06/30 0830 DC 06/30 SC 06/30 0831 0831 Multivitamins 1 TAB DAILY 07/01 1000 AC 06/30 PO 1300 Multivitamins 1 TAB DAILY 06/27 1456 DC 06/29 PO 0943 Ondansetron HCl 4 MG .STK-MED ONE 06/30 0941 DC IM 06/30 0942 Oxycodone/ 1 TAB Q6P PRN 06/30 1900 AC 07/01 Acetaminophen PO 0245 Oxycodone/ 1 TAB ONCE ONE 06/30 1415 DC 06/30 Acetaminophen PO 06/30 1416 1415 Sevelamer Carbonate 800 MG WITH MEALS 06/30 1200 AC 06/30 PO 1641 Sevelamer Carbonate 800 MG WITH MEALS 06/26 0800 DC 06/29 PO 1632 Tamsulosin HCl 0.4 MG DAILY 07/01 1000 AC 06/30 PO 1300 Tamsulosin HCl 0.4 MG DAILY 06/29 1000 DC 06/29 PO 1146 Vitamin A/Vitamin D 1 CHAITANYA BID 06/30 2200 AC 06/30 TOP 2136 Vitamin A/Vitamin D 1 CHAITANYA BID 06/26 1553 DC 06/29 TOP 2149 Zinc Oxide 1 CHAITANYA BID 06/30 2200 AC 06/30 TOP 2136 Zinc Oxide 1 CHAITANYA BID 06/26 1354 DC 06/29 TOP 2149 Findings Pertinent Lab/Avtar Results: Laboratory Tests 06/30 06/30 1840 0850 Chemistry Sodium (137 - 145 mmol/L) 137 Potassium (3.5 - 5.1 mmol/L) 4.4 Chloride (98 - 107 mmol/L) 101 Carbon Dioxide (22 - 30 mmol/L) 24 Anion Gap (5 - 16) 13 BUN (9 - 20 mg/dL) 57 H Creatinine (0.7 - 1.2 mg/dL) 2.9 H Estimated GFR (>60 ml/min) 21 L BUN/Creatinine Ratio (7 - 25 %) 19.7 Magnesium (1.6 - 2.3 mg/dL) 1.9 Coagulation APTT (25 - 37 SEC) 64 H > 120 *H Hematology CBC w Diff MAN DIFF ORDERED WBC (4.8 - 10.8 /CUMM) 7.9 RBC (4.70 - 6.10 /CUMM) 3.48 L Hgb (14.0 - 18.0 G/DL) 10.2 L Hct (42 - 52 %) 33.0 L MCV (80.0 - 94.0 FL) 94.6 H MCH (27.0 - 31.0 PG) 29.2 RDW (11.5 - 14.5 %) 18.9 H Plt Count (130 - 400 /CUMM) 129 L MPV (7.4 - 10.4 FL) 9.9 Gran % (42.2 - 75.2 %) 94.9 H Lymphocytes % (20.5 - 51.1 %) 1.7 L Monocytes % (1.7 - 9.3 %) 3.4 Eosinophils % (0 - 5 %) 0 Basophils % (0.0 - 2.0 %) 0 L Segmented Neutrophils (42.2 - 75.2 %) 95 H Lymphocytes (20.5 - 51.1 %) 2 L Monocytes (1.7 - 9.3 %) 3 Nucleated RBCs (0.0 - 0.0 /100WBC) 1 H Platelet Estimate (ADEQUATE) DECREASED Polychromasia 1+ Anisocytosis 1+ PUBS MCHC (33.0 - 37.0 G/DL) 30.9 L Immunology Absolute Granulocytes (1.4 - 6.5 /CUMM) 7.5 H Absolute Lymphocytes (1.2 - 3.4 /CUMM) 0.1 L Absolute Monocytes (0.10 - 0.60 /CUMM) 0.3 Absolute Eosinophils (0.0 - 0.7 /CUMM) 0 Absolute Basophils (0.0 - 0.2 /CUMM) 0
--- NOTE | 2016-07-01 07:38 | PN- Housestaff ---
Subjective Follow-up For: 1- right lower leg chronic ulcer, s/p debridement 2- SOB, hoarseness and stridor- reolved saturating in RA 3- CKD stage V, s/p tunneled cath. insertion on 06/26/16, started on dialysis, today day 4 3- Elevated troponin, with no EKG changes, on IV heparin 4- Pneumonia based on chest CT, [place] recored from April show similar finding. Patient afebrile and no lekocytosis. Watch off antibiotics 5- Anemia (in the setting of CKD) and APL syndrome (on coumadin) Subjective: I saw and examined patient this morning. He is awake alert oriented in no distress. He does not have hoarseness or shortness of breath. He reports pain in the left lower leg. Review of Systems Constitutional: Denies: chills, diaphoresis, fever, malaise, weakness, unexplained weight loss. EENTM: Reports: no symptoms. Cardiovascular: Denies: chest pain, edema, orthopena, palpitations, peripheral edema. Respiratory: Denies: cough, hemoptysis, orthopnea, short of breath, sputum production. Gastrointestinal: Denies: abdominal pain, bloating, constipation, changes in stool. Genitourinary: Reports: no symptoms. Objective Last 24 Hrs of Vital Signs/I&O Vital Signs Date Time Temp Pulse Resp B/P Pulse O2 O2 Flow FiO2 Ox Delivery Rate 07/01 1909 97 Room Air Room Air 07/01 1818 88 150/90 07/01 1600 98.1 80 20 160/88 94 Room Air 07/01 1102 93 Room Air Room Air 07/01 0800 97.0 80 20 140/80 96 Room Air 06/30 2235 97.0 83 18 130/80 95 Room Air Room Air 06/30 2137 85 130/80 06/30 2037 96 Room Air Room Air Intake & Output 07/01 1600 07/01 0800 12 0000 Intake Total 1300 291.2 311 Output Total 300 500 850 Balance 1000 -208.8 -539 Intake, IV 500 191.2 191 Intake, Oral 800 100 120 Number 1 2 2 Bowel Movements Output, Urine 300 500 850 Physical Exam General Appearance: Alert, Oriented X3, Cooperative, No Acute Distress Skin: chronic left lower ulcer with necrosis and purulent discharge s/p debridement HEENT: Atraumatic, PERRLA, EOMI, Mucous Membr. moist/pink Neck: Supple, No JVD Cardiovascular: Regular Rate, Normal S1, Normal S2, No Murmurs Lungs: decreased breath sounds, scattered rhonchi bilaterally Abdomen: Normal Bowel Sounds, Soft, No Tenderness Current Medications: Current Medications Sig/Kailash Start time Last Medication Dose Route Stop Time Status Admin Acetaminophen 1,000 MG Q6P PRN 06/30 1200 AC 07/01 N/A 1 UNIT IV 1820 Albuterol Sulfate 3 ML BID 06/30 2200 AC 07/01 INH 1908 Albuterol Sulfate 3 ML Q4H PRN 06/30 1200 AC INH Aspirin 81 MG DAILY 07/01 1000 AC 07/01 PO 0858 Atorvastatin Calcium 40 MG 1700 06/30 1700 AC 07/01 PO 1818 Carvedilol 25 MG BID 06/30 2200 AC 07/01 PO 1818 Dexamethasone 4 MG Q8 07/01 2200 AC PO Dexamethasone 4 MG Q8 07/01 1400 DC IV Dexamethasone 4 MG Q8 07/01 1400 DC 07/01 Dextrose/Water 50 ML IV 1818 Dexamethasone 6 MG Q8 07/01 0600 DC 07/01 IV 0603 Dexamethasone 6 MG Q8 06/30 1400 DC 06/30 Dextrose/Water 50 ML IV 2136 Diphenoxylate HCl/ 2.5 MG TID PRN 06/30 1200 AC 07/01 Atropine PO 0603 Epoetin Ludwig 6,000 UNIT PER PROTOCL PRN 07/01 1430 AC IV Furosemide 80 MG DAILY 07/01 1000 DC 06/30 IV 1232 Heparin Sodium 25,000 UNIT Q24H 06/30 1200 DC 06/30 (Porcine) IV 1238 Sodium Chloride 500 ML Insulin Aspart 0 TIDAC/HS 06/30 2100 AC 07/01 SC 1821 Insulin Detemir 14 UNITS BID 06/30 2200 AC 07/01 SC 1111 Iron Sucrose 100 MG PER PROTOCL PRN 07/01 1430 AC Sodium Chloride 100 ML IV Magnesium Oxide 400 MG ONE ONE 07/01 0800 DC 07/01 PO 07/01 0801 1821 Morphine Sulfate 1 MG Q4P PRN 07/01 1500 AC 07/01 IV 1502 Multivitamins 1 TAB DAILY 07/01 1000 AC 07/01 PO 0858 Non-Formulary 0 SEE ADMIN CRITERIA 07/01 1245 DC Medication ANY Nystatin 5 ML 4 TIMES/DAY 07/01 1000 AC 07/01 PO 1823 Oxycodone/ 1 TAB Q6P PRN 06/30 1900 AC 07/01 Acetaminophen PO 0938 Patient Medication 1 UNIT ONE NR 07/01 1515 AC 07/01 Teaching ED 07/01 2115 1820 Sevelamer Carbonate 800 MG WITH MEALS 06/30 1200 AC 07/01 PO 1817 Tamsulosin HCl 0.4 MG DAILY 07/01 1000 AC 07/01 PO 0858 Vancomycin HCl 1 MG DAILY PRN 07/01 1300 AC Dextrose/Water 250 ML IV Vancomycin HCl 1,000 MG ONCE 07/01 1230 AC Sodium Chloride 250 ML IV 07/01 2100 Vitamin A/Vitamin D 1 CHAITANYA BID 06/30 2200 AC 07/01 TOP 1053 Warfarin Sodium 5 MG ONCE ONE 07/01 1700 DC 07/01 PO 07/01 1701 1820 Zinc Oxide 1 CHAITANYA BID 06/30 2200 AC 07/01 TOP 1053 Last 24 Hrs of Lab/[facility]tar Results Last 24 Hrs of Labs/Mics: Laboratory Tests 07/01/16 1618: PT Cancelled, INR Cancelled 07/01/16 1340: Anion Gap 9, Estimated GFR 18 L, Glucose 140 H, Calcium 7.6 L, Phosphorus 4.5 , Magnesium 1.8, Total Bilirubin 0.3, AST 16 L, ALT 29, Albumin 2.7 L, PT 25.1 H, INR 2.41 H, APTT > 120 *H, CBC w Diff NO MAN DIFF REQ, RBC 3.09 L, MCV 95.2 H, MCH 29.1, RDW 18.3 H, MPV 10.9 H, Gran % 92.3 H, Lymphocytes % 2.1 L, Monocytes % 5.5, Eosinophils % 0.1, Basophils % 0 L, PUBS MCHC 30.6 L, Absolute Granulocytes 11.6 H, Absolute Lymphocytes 0.3 L, Absolute Monocytes 0.7 H, Absolute Eosinophils 0, Absolute Basophils 0 Assessment/Plan Assessment: Mr. 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 Pretty, crohns disease status post bowel resection and chronic prednisone treatment, kidney stones status post lithotripsy, right toes amputation, femoropopliteal bypass surgery was brought in by ambulance from home for worsening of breathing, hoarseness, stridor for 2 days. Hoarseness and stridor-resolved Patient presented with worsening hoarseness, intermittent stridor. Lethargic on admission - Recent history of supraglottic edema in April 2016 with hoarseness and stridor. Treated with dexamethazone. MRA and laryngoscopy were normal. Records from [facility] were obtained which had suggested infectious or inflammatory process causing subglottic edema. - Soft tissue neck x-ray-Soft tissue films of the neck demonstrate a normal larynx, pharynx and upper trachea. No soft tissue swelling or opaque foreign body is demonstrated. There is no hypopharyngeal distention. CTA of neck negative for mass. * Breathing comfortably on room air * Decreased Decadron to 4 mg every 8 hours Acute hypoxic respiratory failure-resolved Patient presented with worsening shortness of breath. Chest x-ray and CAT scan showed left lung consolidation and pneumonia. We started IV ceftaz and IV vancomycin in the emergency room and and stopped now.Records from recent hospitalization in April 2016 showed some of her findings are long-standing. Patient is afebrile, no leukocytosis. 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 He is following Dr. Pretty as an outpatient. He underwent wound debridement in May 2016 and 06/30/2016 by at [facility], follows up with him regularly. * Wound Debridement was done yesterday by Dr. Pretty * Wound consult was placed with * Started the patient on IV vancomycin, gave 1 gram IV after dialysis and will dose based on hemodialysis protocol * Decreased decadron to help with better sugar control and wound healing Subtherapeutic INR Patient has chronic right upper extremity DVT was on Coumadin * Coumadin was on hold for possible wound debridement, we discuss tmr to restart it. * Stopped IV heparin today and started warfarin. Patient's upper extremity has significant swelling and does not allow blood to be drawn periodically per heparin protocol. Chronic kidney disease Stage V * Creatinine 5 on admission, baseline creatinine 4.5. * Tunnelled cath. was placed on the day of admission, underwent dialysis 3 days in a row * Day 4 of dialysis today * Cr 3.3 before dialysis today Acute coronary syndrome Denied any chest pain, racing of heart, diaphoresis, nausea, vomiting. 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 Stress test was normal. * ECHO: Poor LV endocardial definition but normal overall left ventricular systolic function. Left atrial enlargement. Moderate Pulmonary hypertension. Borderline normal left ventricular ejection fraction estimated at 50-55%. Chronic lower extremity swelling * Patient takes Lasix at home * Patient underwent dialysis for 3 days. * received two doses of IV lasix 80 mg over the weekend. * will go for dialysis today (day 4) Hypertension -well managed * Patient is on amlodipine, carvedilol, hydralazine at home * We held amlodipine and hydralazine for now * Will continue carvedilol 25 BID Diabetes mellitus Blood sugars were very high, more than 400 yesterday. Most likely due to high dose of steroids. * Started Levemir 14 units twice a day * We will check blood sugar 3 times a day and give NovoLog according to the sliding scale as suggested by Dr. Hilton. Chronic kidney disease * Keep calcitriol, sodium citrate, sodium bicarbonate on hold * On renvela and nephrovitamin Hypomagnesemia 1.5 on admission. repleted. * Today M.8 * Monitor magnesium and replete Crohn's disease Patient is on chronic prednisone treatment 10 mg daily at home. * Held prednisone in the hospital as patient is on Dexamethazone. DVT prophylaxis * On IV heparin, stopped today and started coumadin Diet * Renal dialysis diet Pain Mild to moderate pain pathway Tylenol, IV morphine for severe pain Code Status - Full code Problem List: 1. Deep venous thrombosis 2. Anemia 3. Elevated troponin 4. CKD (chronic kidney disease) 5. Diabetes mellitus 6. Chronic ulcer of left lower extremity 7. Antiphospholipid antibody syndrome 8. Supraglottic edema 9. End stage renal disease 10. Crohn disease 11. Wound infection Pain Ratin Pain Location: left leg Pain Goal: Pain 4 or less Pain Plan: IV morphine 1mg Q6 PRN for severe pain Tomorrow's Labs & Rationales: INR (started coumdain) Will check CBC and BEP before dialysis DVT/Prophylaxis: pharmacological
--- NOTE | 2016-07-01 07:45 | NUR ---
UNABLE TO DRAW MORNING LABS DUE TO POOR VENOUS ACCESS. ICU RESIDENT NOTIFIED.
[2016-07-01 08:00] VITALS: BP 140/80
--- NOTE | 2016-07-01 09:18 | PN- Pulmonary ---
Subjective HPI/Critical Care Issues: pt seen and examined comfortable oral thrush improved on steroids Objective Current Medications: Current Medications Sig/Kailash Start time Last Medication Dose Route Stop Time Status Admin Acetaminophen 1,000 MG Q6P PRN 06/30 1200 AC 06/30 N/A 1 UNIT IV 1617 Acetaminophen 1,000 MG Q6P PRN 06/28 0845 DC 06/29 N/A 1 UNIT IV 1946 Albuterol Sulfate 3 ML BID 06/30 2200 AC 06/30 INH 2036 Albuterol Sulfate 3 ML Q4H PRN 06/30 1200 AC INH Albuterol Sulfate 3 ML BID 06/29 2200 DC INH Albuterol Sulfate 3 ML Q4H PRN 06/26 0815 DC 06/26 INH 1128 Aspirin 81 MG DAILY 07/01 1000 AC 07/01 PO 0858 Aspirin 81 MG DAILY 06/26 1938 DC 06/29 PO 0942 Atorvastatin Calcium 40 MG 1700 06/30 1700 AC 06/30 PO 1641 Atorvastatin Calcium 40 MG 1700 06/28 1700 DC 06/29 PO 1632 Carvedilol 25 MG BID 06/30 2200 AC 06/30 PO 2137 Carvedilol 25 MG BID 06/26 1000 DC 06/29 PO 2136 Dexamethasone 6 MG Q8 07/01 0600 AC 07/01 IV 0603 Dexamethasone 6 MG Q8 06/30 1400 DC 06/30 Dextrose/Water 50 ML IV 2136 Dexamethasone 6 MG Q8 06/26 1400 DC 06/30 Dextrose/Water 50 ML IV 0626 Dextrose/Sodium 1,000 ML Q20H 06/30 1200 CAN Chloride IV Dextrose/Sodium 1,000 ML Q20H 06/30 0130 DC 06/30 Chloride IV 0132 Diphenoxylate HCl/ 2.5 MG TID PRN 06/30 1200 AC 07/01 Atropine PO 0603 Diphenoxylate HCl/ 2.5 MG TID PRN 06/29 1130 DC 06/30 Atropine PO 0636 Fentanyl Citrate 200 MCG .STK-MED ONE 06/30 0941 DC IM 06/30 0942 Furosemide 80 MG DAILY 07/01 1000 AC 06/30 IV 1232 Furosemide 80 MG DAILY 06/29 1000 DC 06/29 IV 06/30 2355 0943 Heparin Sodium 25,000 UNIT Q24H 06/30 1200 AC 06/30 (Porcine) IV 1238 Sodium Chloride 500 ML Heparin Sodium 25,000 UNIT Q24H 06/26 1430 DC 06/30 (Porcine) IV 0313 Sodium Chloride 500 ML Hydromorphone HCl 2 MG .STK-MED ONE 06/30 1131 DC IM 06/30 1132 Insulin Aspart 0 TIDAC/HS 06/30 2100 AC 06/30 SC 2139 Insulin Aspart 0 TIDAC 06/30 1200 DC 06/30 SC 1641 Insulin Detemir 14 UNITS BID 06/30 2200 AC 06/30 SC 2138 Insulin Detemir 7 UNITS BID 06/30 1245 DC 06/30 SC 1400 Magnesium Oxide 400 MG ONE ONE 07/01 0800 DC PO 07/01 0801 Multivitamins 1 TAB DAILY 07/01 1000 AC 07/01 PO 0858 Multivitamins 1 TAB DAILY 06/27 1456 DC 06/29 PO 0943 Ondansetron HCl 4 MG .STK-MED ONE 06/30 0941 DC IM 06/30 0942 Oxycodone/ 1 TAB Q6P PRN 06/30 1900 AC 07/01 Acetaminophen PO 0245 Oxycodone/ 1 TAB ONCE ONE 06/30 1415 DC 06/30 Acetaminophen PO 06/30 1416 1415 Sevelamer Carbonate 800 MG WITH MEALS 06/30 1200 AC 07/01 PO 0858 Sevelamer Carbonate 800 MG WITH MEALS 06/26 0800 DC 06/29 PO 1632 Tamsulosin HCl 0.4 MG DAILY 07/01 1000 AC 07/01 PO 0858 Tamsulosin HCl 0.4 MG DAILY 06/29 1000 DC 06/29 PO 1146 Vitamin A/Vitamin D 1 CHAITANYA BID 06/30 220 AC 06/30 TOP 2136 Vitamin A/Vitamin D 1 CHAITANYA BID 06/26 1553 DC 06/29 TOP 2149 Zinc Oxide 1 CHAITANYA BID 06/30 2200 AC 06/30 TOP 2136 Zinc Oxide 1 CHAITANYA BID 06/26 1354 DC 06/29 TOP 2149 Vital Signs & I&O Last 24 Hrs of Vitals and I&O: Vital Signs Date Time Temp Pulse Resp B/P Pulse O2 O2 Flow FiO2 Ox Delivery Rate 06/30 2235 97.0 83 18 130/80 95 Room Air Room Air 06/307 85 130/80 06/30 203 96 Room Air Room Air 06/30 1600 84 Room Air 06/30 1600 97.0 88 22 118/74 94 Room Air 06/30 1300 82 128/64 06/30 1300 84 128/64 06/30 1242 98.1 92 22 128/64 98 Nasal 3.0L Cannula Intake & Output 07/01 1600 07/01 0800 12 0000 Intake Total 291.2 311 Output Total 500 850 Balance -208.8 -539 Intake, IV 191.2 191 Intake, Oral 100 120 Number 2 2 Bowel Movements Output, Urine 500 850 Exam Other Physical Findings: gen awake and alert heent ORAL THRUSH cvs s1, s2 lungs transmitted, rare rhonchi abd soft bs+ ext without edema Results Last 24 Hrs of Lab Results: Laboratory Tests 06/30/16 1840: APTT 64 H Impression/Plan Impression/Plan Impression/Plan: Impression 75 year old man * hoarseness, subglottic edema, unclear etiology, recently at [place] for similar issue * History of anti-phospholipid syndrome on coumadin, recently held secondary to chronic left leg ulceration. * acute hypoxemic respiratory failure secondary to subglottic edema, now improved * LLL consolidation likely aspiration * oral thrush improving Plan Respiratory -ENT f/u -bilateral vocal cord paralysis -off o2 -continue Decadron ID -ID consultation appreciated -will follow off abx -f/u all cx -NYSTATIN swish and spit for 7 days ordered for oral thrush CVS -Peripheral vascular disease -chronic clot in RLE, currently coumadin held, but on heparin gtt -vascular sx follow up -cardiology consultation appreciated Heme -heparin gtt, until can resume coumadin Metabolic -nephrology consultation appreciated -HD per renal Alimentary -diet as tolerated Neuro -no acute issues at this time DVT prophylaxis -heparin gtt for now until coumadin can be restarted, f/u vascular sx Tele hold
--- NOTE | 2016-07-01 11:18 | PN- Vascular Surgery ---
Surgical Brief Attending Note Brief Attending Note: VASCULAR ATTENDIBG NOTE: Pt. seen and examined now POD #1 s/p debridement. No acute events. Pt. is growing gram + and negative spieces from deep wound culture. PE: AF/VSS LLE--> VAC in place-well perfused A/P Severe diabetic leg/foot infection exacerbated by infection, steroids-- 1.) Will need antibiotic course-this was d/w ID today--otherwise pt. is at risk for wound progression and limb loss 2.) VAC change friday 3.) F/u cultures 4.) Endocrine/Wound consult for possible HBO 4.)
--- NOTE | 2016-07-01 11:44 | PN- Infect Dx ---
Subjective Subjective: Afebrile on steroids. He complains of pain in the left leg. Objective Last 24 Hrs of Vital Signs/I&O Vital Signs Date Time Temp Pulse Resp B/P Pulse O2 O2 Flow FiO2 Ox Delivery Rate 07/01 1102 93 Room Air Room Air 06/30 2235 97.0 83 18 130/80 95 Room Air Room Air 06/30 2137 85 130/80 06/30 2037 96 Room Air Room Air 06/30 1600 84 Room Air 06/30 1600 97.0 88 22 118/74 94 Room Air 06/30 1300 82 128/64 06/30 1300 84 128/64 06/30 1242 98.1 92 22 128/64 98 Nasal 3.0L Cannula Intake & Output 07/01 1600 07/01 0800 07/01 0000 Intake Total 291.2 311 Output Total 500 850 Balance -208.8 -539 Intake, IV 191.2 191 Intake, Oral 100 120 Number 2 2 Bowel Movements Output, Urine 500 850 Physical Exam Other Physical Findings: He appears comfortable in no acute distress Neck tunneled catheter in the right upper chest with no inflammation at the site Skin scattered petechial/purpuric appearing lesions on his trunk and extremities Lungs are clear Heart regular rhythm with no murmur Extremities left leg dressing intact Results Last 24 Hours of Lab Results: Laboratory Tests 06/30 1840 Coagulation APTT (25 - 37 SEC) 64 H Last 24 Hours of [place] Results: OR culture June 30 labeled deep tissue left leg positive for diphtheroids and gram-positive cocci Assessment/Plan Impression: Stable with temperatures remaining normal (on steroids) and white blood cell count normal off antibiotics status post excisional debridement of the left leg through the subcutaneous and muscular tissue yesterday with "seropurulent" drainage noted and with placement of a wound VAC. His OR culture is growing gram-positive cocci (likely coag-negative Staph) and diphtheroids, neither of which would be considered pathogenic in this setting and therefore am not convinced of the role of antibiotics; nevertheless, given concern of Vascular surgery regarding the viability of patient's leg, can begin treatment for the organisms isolated from the OR culture with close monitoring of the wound on this treatment. Suggestion: 1. Follow-up final OR culture 2. Would taper steroids 3. Begin Vancomycin 1 g IV 1 today after dialysis, with further dosing based on above
--- NOTE | 2016-07-01 11:55 | PN- Cardiology ---
Subjective Subjective: The patient is awake, alert The events of the last 24 hours as well as telemetry were reviewed. Review of Systems: The review of systems is negative for chest pains, palpitations nor lightheadedness. The remainder of the 14 point review of systems is noncontributory with the exception of above. Objective Vital Signs and I&Os Vital Signs Date Time Temp Pulse Resp B/P Pulse O2 O2 Flow FiO2 Ox Delivery Rate 07/01 1102 93 Room Air Room Air 06/30 2235 97.0 83 18 130/80 95 Room Air Room Air 06/30 2137 85 130/80 06/30 2037 96 Room Air Room Air 06/30 1600 84 Room Air 06/30 1600 97.0 88 22 118/74 94 Room Air 06/30 1300 82 128/64 06/30 1300 84 128/64 06/30 1242 98.1 92 22 128/64 98 Nasal 3.0L Cannula Intake & Output 07/01 1600 07/01 0800 07/01 0000 06/30 1600 06/30 0800 06/30 0000 Intake Total 291.2 311 420 562 384.4 Output Total 500 850 350 500 600 Balance -208.8 -539 70 62 -215.6 Intake, IV 191.2 191 200 562 334.4 Intake, Oral 100 120 220 50 Number 2 2 1 2 Bowel Movements Output, Urine 500 850 350 500 600 Patient 0 lb Weight Physical Exam: General: Nontoxic, no apparent distress. HEENT: Sclera and conjunctiva within normal limits, without xanthelasmas. Neck: Carotids 2+ without bruits. Respiratory: Scattered rhonchi and expiratory wheezes. Air movement is decreased at bases., without accessory respiratory muscle use. Heart: Regular rate and rhythm, 2/6 systolic ejection murmur at left sternal border, without JVD. Abdomen: Soft, nontender, no masses, normoactive bowel sounds. Extremities: Without clubbing, cyanosis, without edema. Neuro: Nonfocal exam, strength, 5 out of 5 Skin: Within normal limits without lesions. Psych: Mood and affect: Normal Current Medications: Current Medications Sig/Kailash Start time Last Medication Dose Route Stop Time Status Admin Acetaminophen 1,000 MG Q6P PRN 06/30 1200 AC 06/30 N/A 1 UNIT IV 1617 Acetaminophen 1,000 MG Q6P PRN 06/28 0845 DC 06/29 N/A 1 UNIT IV 1946 Albuterol Sulfate 3 ML BID 06/30 2200 AC 07/01 INH 1056 Albuterol Sulfate 3 ML Q4H PRN 06/30 1200 AC INH Albuterol Sulfate 3 ML BID 06/29 2200 DC INH Albuterol Sulfate 3 ML Q4H PRN 06/26 0815 DC 06/26 INH 1128 Aspirin 81 MG DAILY 07/01 1000 AC 07/01 PO 0858 Aspirin 81 MG DAILY 06/26 1938 DC 06/29 PO 0942 Atorvastatin Calcium 40 MG 1700 06/30 1700 AC 06/30 PO 1641 Atorvastatin Calcium 40 MG 1700 06/28 1700 DC 06/29 PO 1632 Carvedilol 25 MG BID 06/30 2200 AC 06/30 PO 2137 Carvedilol 25 MG BID 06/26 1000 DC 06/29 PO 2136 Dexamethasone 4 MG Q8 07/01 1400 DC IV Dexamethasone 4 MG Q8 07/01 1400 AC Dextrose/Water 50 ML IV Dexamethasone 6 MG Q8 07/01 0600 DC 07/01 IV 0603 Dexamethasone 6 MG Q8 06/30 1400 DC 06/30 Dextrose/Water 50 ML IV 2136 Dexamethasone 6 MG Q8 06/26 1400 DC 06/30 Dextrose/Water 50 ML IV 0626 Dextrose/Sodium 1,000 ML Q20H 06/30 1200 CAN Chloride IV Dextrose/Sodium 1,000 ML Q20H 06/30 0130 DC 06/30 Chloride IV 0132 Diphenoxylate HCl/ 2.5 MG TID PRN 06/30 1200 AC 07/01 Atropine PO 0603 Diphenoxylate HCl/ 2.5 MG TID PRN 06/29 1130 DC 06/30 Atropine PO 0636 Furosemide 80 MG DAILY 07/01 1000 DC 06/30 IV 1232 Furosemide 80 MG DAILY 06/29 1000 DC 06/29 IV 06/30 2355 0943 Heparin Sodium 25,000 UNIT Q24H 06/30 1200 AC 06/30 (Porcine) IV 1238 Sodium Chloride 500 ML Heparin Sodium 25,000 UNIT Q24H 06/26 1430 DC 06/30 (Porcine) IV 0313 Sodium Chloride 500 ML Insulin Aspart 0 TIDAC/HS 06/30 2100 AC 07/01 SC 0945 Insulin Aspart 0 TIDAC 06/30 1200 DC 06/30 SC 1641 Insulin Detemir 14 UNITS BID 06/30 2200 AC 07/01 SC 1111 Insulin Detemir 7 UNITS BID 06/30 1245 DC 06/30 SC 1400 Magnesium Oxide 400 MG ONE ONE 07/01 0800 DC PO 07/01 0801 Multivitamins 1 TAB DAILY 07/01 1000 AC 07/01 PO 0858 Multivitamins 1 TAB DAILY 06/27 1456 DC 06/29 PO 0943 Nystatin 5 ML 4 TIMES/DAY 07/01 1000 AC PO Oxycodone/ 1 TAB Q6P PRN 06/30 1900 AC 07/01 Acetaminophen PO 0938 Oxycodone/ 1 TAB ONCE ONE 06/30 1415 DC 06/30 Acetaminophen PO 06/30 1416 1415 Sevelamer Carbonate 800 MG WITH MEALS 06/30 1200 AC 07/01 PO 0858 Sevelamer Carbonate 800 MG WITH MEALS 06/26 0800 DC 06/29 PO 1632 Tamsulosin HCl 0.4 MG DAILY 07/01 1000 AC 07/01 PO 0858 Tamsulosin HCl 0.4 MG DAILY 06/29 1000 DC 06/29 PO 1146 Vitamin A/Vitamin D 1 CHAITANYA BID 06/30 2200 AC 07/01 TOP 1053 Vitamin A/Vitamin D 1 CHAITANYA BID 06/26 1553 DC 06/29 TOP 2149 Zinc Oxide 1 CHAITANYA BID 06/30 2200 AC 07/01 TOP 1053 Zinc Oxide 1 CHAITANYA BID 06/26 1354 DC 06/29 TOP 2149 Results Last 48 Hrs of Labs/Mics: Laboratory Tests 06/30/16 1840: APTT 64 H 06/30/16 0850: Anion Gap 13, Estimated GFR 21 L, BUN/Creatinine Ratio 19.7, Magnesium 1.9, APTT > 120 *H, CBC w Diff MAN DIFF ORDERED, RBC 3.48 L, MCV 94.6 H, MCH 29.2, RDW 18.9 H, MPV 9.9, Gran % 94.9 H, Lymphocytes % 1.7 L, Monocytes % 3.4, Eosinophils % 0, Basophils % 0 L, Segmented Neutrophils 95 H, Lymphocytes 2 L , Monocytes 3, Nucleated RBCs 1 H, Platelet Estimate DECREASED, Polychromasia 1 +, Anisocytosis 1+, PUBS MCHC 30.9 L, Absolute Granulocytes 7.5 H, Absolute Lymphocytes 0.1 L, Absolute Monocytes 0.3, Absolute Eosinophils 0, Absolute Basophils 0 06/30/16 0045: APTT < 20 L 06/29/16 1515: PT 16.5 H, INR 1.58 H, APTT 120 *H 06/29/16 1310: PT Cancelled, INR Cancelled Assessment/Plan Assessment/Plan 1. Elevated troponin possibly due to demand ischemia 2. Possible pneumonia 3. Subglottic edema 4. History of antiphospholipid antibody syndrome maintained on anticoagulation 5. Lower extremity ulcer with peripheral vascular disease 6. End-stage renal disease on dialysis 7. History of hypertension 8. History of upper extremity thrombosis The troponin isoenzyme elevation is likely multifactorial and demonstrates chronic elevation in the setting of renal dysfunction. We will continue a conservative approach to management. Further workup which would include an overall assessment of underlying ischemic burden may be considered after discharge.
--- NOTE | 2016-07-01 12:23 | NUR ---
WOUND VAC PATENT , NO DRAINAGE. RED WRAP TO LEFT LEG INTACT. LEG PAIN PT RATES AT A LEVEL OF 8. PERCOCET GIVENT THIS AM INITIALLY WITH STATED RELIEF BUT LATER STATED NO RELIEF. IV TYLENOL GIVEN WITH EFFECT. PT AGREES TO TAKE PERCOCET AND IV TYLENOL FOR NOW FOR HIS OPAIN MANAGEMENT. DUE TO POOR IV ACCESS, PT HAS NOT HAD AM LABS DRAWN. HOUSESTAFF IS AWARE, IV HEPARIN INFUSING BUT CANNOT FOLLOW PROTOCOL DUE TO INABIILITY TO DRAW BLOOD.
--- NOTE | 2016-07-01 12:37 | PN- Nephrology ---
Assessment/Plan Assessment: 1. ESRD likely secondary to diabetic nephropathy with volume overload 2. Diabetes mellitus with peripheral vascular disease status post right TMA, status post debridement left ankle ulcer yesterday 3. Antiphospholipid antibody syndrome status post DVT Suggestion: 1. Hemodialysis #4 later today with 3 L ultrafiltration goal as tolerated over 3 hours 2. Antibiotic therapy per ID - vancomycin being started 3. Will dialyze Friday, Friday and Friday this week 4. No PICC lines 5. Vascular access surgery once infection no longer an issue Subjective Subjective: Patient has no specific complaints today and seems comfortable. On heparin drip. He is 24 hours status post debridement of his left ankle ulcer. Dialysis planned for later today. Objective Vital Signs and I&Os Vital Signs Date Time Temp Pulse Resp B/P Pulse O2 O2 Flow FiO2 Ox Delivery Rate 07/01 1102 93 Room Air Room Air 07/01 0800 97.0 80 20 140/80 96 Room Air 06/30 2235 97.0 83 18 130/80 95 Room Air Room Air 06/30 2137 85 130/80 06/30 2037 96 Room Air Room Air 06/30 1600 84 Room Air 06/30 1600 97.0 88 22 118/74 94 Room Air 06/30 1300 82 128/64 06/30 1300 84 128/64 06/30 1242 98.1 92 22 128/64 98 Nasal 3.0L Cannula Intake & Output 07/01 1600 07/01 0400 06/30 1600 06/30 0400 06/29 1600 06/29 0400 Intake Total 291.2 311 982 384.4 1375 574.4 Output Total 500 850 850 600 950 Balance -208.8 -539 132 -215.6 425 574.4 Intake, IV 191.2 191 762 334.4 475 454.4 Intake, Oral 100 120 220 50 900 120 Number 2 2 1 2 2 5 Bowel Movements Output, Urine 500 850 850 600 950 Patient 0 lb Weight Physical Exam: General: Well-developed white male in NAD Skin: No rash or jaundice HEENT: Conjunctivae pink, sclerae anicteric, mucous membranes moist Neck: Without masses or thyromegaly, no supraclavicular or cervical adenopathy; there is a right IJ tunneled dialysis catheter in place Chest: Clear to P&A Heart: Regular rate and rhythm without S3 or rub Abdomen: Soft and nontender without palpable masses or organomegaly Extremities: Lower extremity dressing was intact, +edema Neuro: No focal findings, no asterixis or myoclonus Current Medications: Current Medications Sig/Kailash Start time Last Medication Dose Route Stop Time Status Admin Acetaminophen 1,000 MG Q6P PRN 06/30 1200 AC 06/30 N/A 1 UNIT IV 1617 Albuterol Sulfate 3 ML BID 06/30 2200 AC 07/01 INH 1056 Albuterol Sulfate 3 ML Q4H PRN 06/30 1200 AC INH Aspirin 81 MG DAILY 07/01 1000 AC 07/01 PO 0858 Atorvastatin Calcium 40 MG 1700 06/30 1700 AC 06/30 PO 1641 Carvedilol 25 MG BID 06/30 2200 AC 06/30 PO 2137 Dexamethasone 4 MG Q8 07/01 1400 DC IV Dexamethasone 4 MG Q8 07/01 1400 AC Dextrose/Water 50 ML IV Dexamethasone 6 MG Q8 07/01 0600 DC 07/01 IV 0603 Dexamethasone 6 MG Q8 06/30 1400 DC 06/30 Dextrose/Water 50 ML IV 2136 Diphenoxylate HCl/ 2.5 MG TID PRN 06/30 1200 AC 07/01 Atropine PO 0603 Furosemide 80 MG DAILY 07/01 1000 DC 06/30 IV 1232 Heparin Sodium 25,000 UNIT Q24H 06/30 1200 AC 06/30 (Porcine) IV 1238 Sodium Chloride 500 ML Insulin Aspart 0 TIDAC/HS 06/30 2100 AC 07/01 SC 0945 Insulin Aspart 0 TIDAC 06/30 1200 DC 06/30 SC 1641 Insulin Detemir 14 UNITS BID 06/30 2200 AC 07/01 SC 1111 Insulin Detemir 7 UNITS BID 06/30 1245 DC 12 SC 1400 Magnesium Oxide 400 MG ONE ONE 07/01 0800 DC PO 07/01 0801 Multivitamins 1 TAB DAILY 07/01 1000 AC 07/01 PO 0858 Nystatin 5 ML 4 TIMES/DAY 07/01 1000 AC PO Oxycodone/ 1 TAB Q6P PRN 06/30 1900 AC 07/01 Acetaminophen PO 0938 Oxycodone/ 1 TAB ONCE ONE 06/30 1415 DC 06/30 Acetaminophen PO 06/30 1416 1415 Sevelamer Carbonate 800 MG WITH MEALS 06/30 1200 AC 07/01 PO 0858 Tamsulosin HCl 0.4 MG DAILY 07/01 1000 AC 07/01 PO 0858 Vitamin A/Vitamin D 1 CHAITANYA BID 06/30 2200 AC 07/01 TOP 1053 Zinc Oxide 1 CHAITANYA BID 06/30 2200 07/01 TOP 1053 Results Pertinent Lab Results: Laboratory Tests 06/30 06/30 06/30 1840 0850 0045 Chemistry Sodium (137 - 145 mmol/L) 137 Potassium (3.5 - 5.1 mmol/L) 4.4 Chloride (98 - 107 mmol/L) 101 Carbon Dioxide (22 - 30 mmol/L) 24 Anion Gap (5 - 16) 13 BUN (9 - 20 mg/dL) 57 H Creatinine (0.7 - 1.2 mg/dL) 2.9 H Estimated GFR (>60 ml/min) 21 L BUN/Creatinine Ratio (7 - 25 %) 19.7 Magnesium (1.6 - 2.3 mg/dL) 1.9 Coagulation APTT (25 - 37 SEC) 64 H > 120 *H < 20 L Hematology CBC w Diff MAN DIFF ORDERED WBC (4.8 - 10.8 /CUMM) 7.9 RBC (4.70 - 6.10 /CUMM) 3.48 L Hgb (14.0 - 18.0 G/DL) 10.2 L Hct (42 - 52 %) 33.0 L MCV (80.0 - 94.0 FL) 94.6 H MCH (27.0 - 31.0 PG) 29.2 RDW (11.5 - 14.5 %) 18.9 H Plt Count (130 - 400 /CUMM) 129 L MPV (7.4 - 10.4 FL) 9.9 Gran % (42.2 - 75.2 %) 94.9 H Lymphocytes % (20.5 - 51.1 %) 1.7 L Monocytes % (1.7 - 9.3 %) 3.4 Eosinophils % (0 - 5 %) 0 Basophils % (0.0 - 2.0 %) 0 L Segmented Neutrophils (42.2 - 75.2 %) 95 H Lymphocytes (20.5 - 51.1 %) 2 L Monocytes (1.7 - 9.3 %) 3 Nucleated RBCs (0.0 - 0.0 /100WBC) 1 H Platelet Estimate (ADEQUATE) DECREASED Polychromasia 1+ Anisocytosis 1+ PUBS MCHC (33.0 - 37.0 G/DL) 30.9 L Immunology Absolute Granulocytes (1.4 - 6.5 /CUMM) 7.5 H Absolute Lymphocytes (1.2 - 3.4 /CUMM) 0.1 L Absolute Monocytes (0.10 - 0.60 /CUMM) 0.3 Absolute Eosinophils (0.0 - 0.7 /CUMM) 0 Absolute Basophils (0.0 - 0.2 /CUMM) 0 06/29 06/29 06/29 1515 1310 0735 Coagulation PT (9.4 - 12.5 SEC) 16.5 H Cancelled INR (0.90 - 1.17) 1.58 H Cancelled APTT (25 - 37 SEC) 120 *H Cancelled 06/29 06/28 0700 1935 Chemistry Sodium (137 - 145 mmol/L) 134 L Potassium (3.5 - 5.1 mmol/L) 3.8 Chloride (98 - 107 mmol/L) 103 Carbon Dioxide (22 - 30 mmol/L) 23 Anion Gap (5 - 16) 8 BUN (9 - 20 mg/dL) 43 H Creatinine (0.7 - 1.2 mg/dL) 2.1 H Estimated GFR (>60 ml/min) 31 L Glucose (65 - 99 mg/dL) 327 H Calcium (8.4 - 10.2 mg/dL) 7.7 L Phosphorus (2.5 - 4.5 mg/dL) 3.7 Magnesium (1.6 - 2.3 mg/dL) 1.9 Total Bilirubin (0.2 - 1.3 mg/dL) 0.4 AST (17 - 59 U/L) 22 ALT (21 - 72 U/L) 46 Albumin (3.5 - 5.0 g/dL) 2.3 L Coagulation PT (9.4 - 12.5 SEC) 18.6 H INR (0.90 - 1.17) 1.78 H APTT (25 - 37 SEC) 41 H 70 H Hematology CBC w Diff MAN DIFF ORDERED WBC (4.8 - 10.8 /CUMM) 6.9 RBC (4.70 - 6.10 /CUMM) 2.90 L Hgb (14.0 - 18.0 G/DL) 8.5 L Hct (42 - 52 %) 27.3 L MCV (80.0 - 94.0 FL) 94.1 H MCH (27.0 - 31.0 PG) 29.2 RDW (11.5 - 14.5 %) 19.1 H Plt Count (130 - 400 /CUMM) 112 L MPV (7.4 - 10.4 FL) 9.4 Gran % (42.2 - 75.2 %) 93.4 H Lymphocytes % (20.5 - 51.1 %) 2.4 L Monocytes % (1.7 - 9.3 %) 4.1 Eosinophils % (0 - 5 %) 0 Basophils % (0.0 - 2.0 %) 0.1 Segmented Neutrophils (42.2 - 75.2 %) 94 H Lymphocytes (20.5 - 51.1 %) 1 L Monocytes (1.7 - 9.3 %) 5 Nucleated RBCs (0.0 - 0.0 /100WBC) 3 H Platelet Estimate (ADEQUATE) DECREASED Polychromasia 1+ Anisocytosis 1+ PUBS MCHC (33.0 - 37.0 G/DL) 31.0 L Immunology Absolute Granulocytes (1.4 - 6.5 /CUMM) 6.5 Absolute Lymphocytes (1.2 - 3.4 /CUMM) 0.2 L Absolute Monocytes (0.10 - 0.60 /CUMM) 0.3 Absolute Eosinophils (0.0 - 0.7 /CUMM) 0 Absolute Basophils (0.0 - 0.2 /CUMM) 0
--- NOTE | 2016-07-01 14:25 | NUR ---
I agree with the Big Data Platform Architect's findings/evaluation of this patient's condition.
--- NOTE | 2016-07-01 14:37 | NUR ---
PHYSICAL THERAPY: Pt ON DIALYSIS THIS AFTERNOON PT CAME TO SEE HIM. WILL CONTINUE TO FOLLOW PATIENT AND COORDINATE OUR VISITS AROUND DIALYSIS.
[2016-07-01 14:50] LABS: ABSOLUTE BASOPHIL COUNT 0 /CUMM (0.0-0.2); ABSOLUTE EOSINOPHIL COUNT 0 /CUMM (0.0-0.7); ABSOLUTE GRANULOCYTE CT 11.6 /CUMM (1.4-6.5); ABSOLUTE LYMPH COUNT 0.3 /CUMM (1.2-3.4); ABSOLUTE MONOCYTE COUNT 0.7 /CUMM (0.10-0.60); BASOPHIL % 0 % (0.0-2.0); EOSINOPHIL % 0.1 % (0-5); HEMATOCRIT 29.4 % (42-52); MEAN CORPUSCULAR HGB 29.1 PG (27.0-31.0); MEAN CORPUSCULAR HGB CONC 30.6 G/DL (33.0-37.0); MEAN CORPUSCULAR VOLUME 95.2 FL (80.0-94.0); MEAN PLATELET VOLUME 10.9 FL (7.4-10.4); PLATELET COUNT 133 /CUMM (130-400); RBC DISTRIBUTION WIDTH 18.3 % (11.5-14.5); RED BLOOD CELL CT 3.09 /CUMM (4.70-6.10)
[2016-07-01 15:02] LABS: WHITE BLOOD CELL COUNT 12.6 /CUMM (4.8-10.8)
[2016-07-01 15:11] LABS: GRANULOCYTE % 92.3 % (42.2-75.2)
[2016-07-01 15:12] LABS: PTT > 120 SEC (25-37)
--- NOTE | 2016-07-01 15:24 | NUR ---
DIALYSIS NURSE JOSETTE LABS AND PTT RESULTS GREATER THAN 150. ICU RESIDENT NOTIFIED, CANNOT FOLLOW THE ORDERED HEPARIN PROTOCOL THE LAB DRAWS AND TIMING CANNOT BE DONE .COUNTERINTELLIGENCE SPECIALIST WILL SPEAK WITH DR. JACKSON.
[2016-07-01 16:00] VITALS: BP 160/88
--- NOTE | 2016-07-01 17:02 | Event Note ---
Event Note Event Note: I was informed by the nurse , that they are not getting blood due to edema of both uper limb, so we cannt pat aPPT very frequently. I talked to Dr. Hills and Dr. Del Cid and we decided to stop the heparin and start the patient on tab Warfarin 5 mgs OD PO. We will check the PT/INR tomorrow.If there will be difficulty in drawing venous blood then we will take arterial sample, or samples during hemodialysis. I also informed the nurse and .
[2016-07-01 18:02] LABS: PT 25.1 SEC (9.4-12.5)
--- NOTE | 2016-07-01 18:48 | NUR ---
AFTER DISCUSSIN WITH ICU TEAM, HEPARIN D/C/D AND COUMADIN GIVEN. DIALYSIS COMPLETED AND 3 LITERS TAKEN OFF. PT CONTINUES TO GIVE DIFFERING REPORTS OF HIS PAIN AND RESPONSE TO MEDS. CURRENTLY HE WISHES TO TAKE TYLENOL AND PERCOCET.
--- NOTE | 2016-07-01 18:58 | NUR ---
PTS RAC IV LEAKING AND SITE REDDENED. D/C/D. HOUSESTAFF NOTIFIED OF LOSS OF IV ACCESS.
[2016-07-01 22:00] VITALS: BP 140/84
--- NOTE | 2016-07-01 22:29 | Transfer of Care Summary ---
Hospital Course Course Hospital Course: Mr. 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 Pretty, crohns disease status post bowel resection and chronic prednisone treatment, kidney stones status post lithotripsy, right toes amputation, femoropopliteal bypass surgery, who was brought in by ambulance from home on , for worsening of breathing, hoarseness, stridor for 2 days. He was admitted to the ICU and the following were addressed so far: Hoarseness and stridor-resolved Patient presented with worsening hoarseness, intermittent stridor and SOB. He was also lethargic on admission. Of note, he has a recent history of hospitalization at [facility] with similar symptoms in April 2016 and was treated with dexamethasone for subglottic edema. MRA and laryngoscopy were normal. Records from [facility] were also obtained, suggested infectious or inflammatory process causing subglottic edema. But no definite etiology was determined. On the day admission ENT, Dr. Dawn, performed laryngoscopy and reported bilateral vocal cord paralysis and subglottic narrowing. Xray of the neck was performed and showed a normal larynx, pharynx and upper trachea. No soft tissue swelling or opaque foreign body and no hypopharyngeal distention. CTA of neck with IV contrast did not report any abnormal anatomic findings. O2 supplementation was started as well as dexamethasone 6 mg Q8 per ENT. Patient 's hoarseness and stridor resolved over the next 48h and he was breathing comfortably in RA. Repeat Laryngoscopy on Jun [address] Crisostomo reported improvement of bilateral vocal cord paralysis, most likely viral in etiology. Patient has been breathing comfortably on room air with no hoarseness. We decreased dexamethasone dose to 4 mg Q8 today (07/01/16). Will continue dexamethasone taper. Acute hypoxic respiratory failure-resolved Patient presented with worsening shortness of breath. Chest x-ray and CAT scan showed left lung consolidation and pneumonia. However afebrile and no leukocytosis. We started IV ceftaz and IV vancomycin in the emergency room. However records from recent hospitalization in April 2016 at [facility] showed some of the findings were long-standing. We discontinued antibiotics on . 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 He is following Dr. Pretty as an outpatient. He underwent wound debridement in May 2016 and 06/30/2016 by at [facility], follows up with him regularly. Wound Debridement was done yesterday (06/30/16) by Dr. Pretty. Also wound consult is placed with . Per Dr. Pretty's recommendation and the fact that deep tissue cultures grew Diphtheroids, Dr. Harden agreed to restart Vancomycin. Patient received a dose today after dialysis and is put on vanc/hemodialysis protocol. We also decreased dexamethasone dose to help with better sugar control and wound healing. Chronic anticoagulation and Subtherapeutic INR on admission Patient has chronic right upper extremity DVT and is on warfarin, he has been diagnosed with anti-phospholipid syndrome >20 years ago. INR 1.31 on admission. Warfarin was on hold since admission in anticipation of wound debridement and started IV heparin both for the chronic DVT and also for the elevated troponin. We stopped IV heparin today (07/01/16) and re-started warfarin. The reason being that patient's upper extremity has significant swelling and does not allow blood to be drawn periodically per heparin protocol to calculate PTT. Decision was made after discussion with Dr. Sarah and Dr. Del Cid. Chronic kidney disease Stage V Creatinine 5 on admission, baseline creatinine 4.5. Tunnelled cath. was placed on the day of admission, before getting CTA neck with IV contrast. He underwent dialysis 3 days in a row on , and . He had his 4th day of dialysis today on 07/01/16. Cr 3.3 before dialysis today. Kept calcitriol, sodium citrate, sodium bicarbonate on hold per nephrology. On renvela and nephrovitamin. Acute coronary syndrome Denied any chest pain, racing of heart, diaphoresis, nausea, vomiting. No cardiac history in the past, stress test was normal. Elevated troponins on admission 0.95, went up to 1.11 and 1.12, came down to 0.86. No acute EKG changes on admission-sinus rhythm, rate 94, QTC 521, no acute ST-T wave changes, repeat ECGs remained unchanged. Follows Dr. Cohn pc tech as an outpatient, Echo- May 2016 showed normal ejection fraction. ECHO: Poor LV endocardial definition but normal overall left ventricular systolic function. Left atrial enlargement. Moderate Pulmonary hypertension. Borderline normal left ventricular ejection fraction estimated at 50-55%. Continue with aspirin, statin, beta randy. Chronic lower extremity swelling Patient takes Lasix at home. He underwent dialysis for 3 days nad then received two doses of IV lasix 80 mg over the weekend. He got dialyzed again today, and continue on Mon/Fri/Fri schedule per nephrology. Hypertension -controlled Patient is on amlodipine, carvedilol, hydralazine at home. We held amlodipine and hydralazine and continued carvedilol 25 BID. Diabetes mellitus Patient's blood sugars were running high upon starting his diet, most likely due to high dose of steroids. Started Levemir 14 units twice a day and we will check blood sugar 3 times a day and give NovoLog according to the sliding scale as suggested by Dr. Hilton. Also decreased dexamethasone dose, should continue steroid taper. Hypomagnesemia 1.5 on admission. repleted. Please monitor magnesium and replete. Crohn's disease Patient is on chronic prednisone treatment 10 mg daily at home. Held prednisone in the hospital as patient is on dexamethasone. DVT prophylaxis Warfarin (IV heparin stopped today) Diet Renal dialysis diet Pain Mild to moderate pain pathway Tylenol, IV morphine for severe pain Assessment/Plan: Please see hospital course. Attending MD Review Statement Documenting Attending: MANUEL HEATH,HAWK
[2016-07-02 06:09] LABS: PT 16.7 SEC (9.4-12.5)
--- NOTE | 2016-07-02 07:19 | PN- Housestaff ---
VINCENZO HEATH,[facility] 07/02/16 0719: Subjective Follow-up For: Chronic nonhealing ulcer of left calf Supraglottic edema ESRD T2DM Tele-Events Since Last Visit: Sinus rhythm, HR 72-81. No acute telemetry events reported overnight. Subjective: No acute events overnight. Patient seen and examined this morning. He complains of pain in his left leg. He reports cough productive of clear sputum. He is comfortable and satting well on RA. Review of Systems Constitutional: Denies: chills, fever. Cardiovascular: Denies: chest pain. Respiratory: Reports: cough, sputum production. Denies: short of breath. Gastrointestinal: Denies: constipation, diarrhea, nausea, vomiting. Objective Last 24 Hrs of Vital Signs/I&O Vital Signs Date Time Temp Pulse Resp B/P Pulse O2 O2 Flow FiO2 Ox Delivery Rate 07/02 821 97.3 77 18 132/70 97 Room Air 07/01 2223 88 150/90 07/01 2200 98.4 72 18 140/84 93 Room Air 07/01 1909 97 Room Air Room Air 07/01 1818 88 150/90 07/01 1600 98.1 80 20 160/88 94 Room Air 07/01 1102 93 Room Air Room Air Intake & Output 07/02 1600 07/02 0800 12/ 0000 Intake Total 200 200 Output Total Balance 200 200 Intake, Oral 200 200 Number 3 Bowel Movements Patient 79.832 kg Weight Physical Exam General Appearance: Alert, Oriented X3, No Acute Distress Neck: Mj Cath in [facility] at [facility] with No Inflammation Noted Cardiovascular: Regular Rate, Normal S1, Normal S2, No Murmurs Lungs: Clear to Auscultation, Normal Air Movement Abdomen: Soft, No Tenderness, Positive Bowel Sounds Extremities: Left Lower Leg with Dressing In Place Current Medications: Current Medications Sig/Kailash Start time Last Medication Dose Route Stop Time Status Admin Acetaminophen 500 MG Q6P PRN 07/02 0815 AC 07/02 PO 1754 Acetaminophen 650 MG .STK-MED ONE 07/02 0232 DC PO 07/02 0233 Acetaminophen 1,000 MG Q6P PRN 06/30 1200 DC 07/01 N/A 1 UNIT IV 1820 Albuterol Sulfate 3 ML BID 06/30 2200 AC 07/02 INH 1919 Albuterol Sulfate 3 ML Q4H PRN 06/30 1200 AC INH Aspirin 81 MG DAILY 07/01 1000 AC 07/02 PO 1048 Atorvastatin Calcium 40 MG 1700 06/30 1700 AC 12 PO 1612 Carvedilol 25 MG BID 06/30 2200 AC 07/02 PO 2105 Dexamethasone 4 MG BID 07/03 1000 AC PO Dexamethasone 4 MG Q8 07/01 2200 DC 12 PO 1400 Diphenoxylate HCl/ 2.5 MG TID PRN 06/30 1200 AC 07/01 Atropine PO 0603 Epoetin Ludwig 6,000 UNIT PER PROTOCL PRN 07/01 1430 AC IV Heparin Sodium 2,400 UNIT ONCE ONE 07/02 1830 DC 07/02 (Porcine) IV 07/02 1831 1844 Heparin Sodium 25,000 UNIT Q24H 07/02 1000 AC 07/02 (Porcine) IV 1046 Sodium Chloride 500 ML Insulin Aspart 0 TIDAC/HS 06/30 2100 AC 07/02 SC 2104 Insulin Detemir 9 UNITS BID 07/02 2200 AC 07/02 SC 2104 Insulin Detemir 14 UNITS BID 06/30 2200 DC 07/02 SC 1045 Iron Sucrose 100 MG PER PROTOCL PRN 07/01 1430 AC Sodium Chloride 100 ML IV Morphine Sulfate 1 MG Q4P PRN 07/01 1500 AC 07/01 IV 1502 Multivitamins 1 TAB DAILY 07/01 1000 AC 07/02 PO 1046 Nystatin 5 ML 4 TIMES/DAY 07/01 1000 AC 07/02 PO 2105 Oxycodone/ 1 TAB Q6P PRN 06/30 1900 AC 07/02 Acetaminophen PO 1045 Patient Medication 1 ED .STK-MED ONE 07/02 1405 DC Teaching ED 07/02 1406 Sevelamer Carbonate 800 MG WITH MEALS 06/30 1200 AC 07/02 PO 1753 Tamsulosin HCl 0.4 MG DAILY 07/01 1000 AC 07/02 PO 1046 Vancomycin HCl 1 MG DAILY PRN 07/01 1300 AC Dextrose/Water 250 ML IV Vitamin A/Vitamin D 1 CHAITANYA BID 06/30 2200 AC 07/02 TOP 2105 Warfarin Sodium 7.5 MG COUMADIN 1700 ONE 07/02 1700 CAN PO 07/02 1701 Warfarin Sodium 7.5 MG COUMADIN 1700 ONE 07/02 1700 DC 07/02 PO 07/02 1701 1613 Zinc Oxide 1 CHAITANYA BID 06/30 2200 07/02 TOP 2105 Last 24 Hrs of Lab/Avtar Results Last 24 Hrs of Labs/Mics: Laboratory Tests 07/02/16 1715: APTT 50 H 07/02/16 0540: PT 16.7 H, INR 1.60 H OR Cultures (06/30): Gram Stain: Moderate WBCs, moderate gram positive cocci, many gram positive rods Heavy growth of diphtheroids and light growth of gram positive cocci Assessment/Plan Assessment: 75 y/o M with PMHx of antiphospholipid antibody syndrome, diabetes and CKD who presented with SOB, hoarseness and stridor, found to be uremic with initiation of HD, status post debridement of chronic left leg ulcer, on IV vancomycin for soft tissue infection. #Chronic left lower extremity ulcer: Has chronic nonhealing ulcers of left leg for which he sees Dr. Pretty as outpatient. Likely secondary to T2DM and PVD, status post right TMA. Status post excisional debridement through the subcutaneous and muscular tissue with reported seropurulent drainage this admission (06/30) and OR cultures growing dipthteroids and coag negative Staph. Although these are not typically pathogenic organisms, currently on vancomycin ( 07/01-) for possible soft tissue infection. Continues to be afebrile. Slight increase in WBC today, most likely secondary to steroids. Wound vac has been placed. * ID following. Appreciate their recs. * Follow up final OR cultures. * Continue vancomycin per dialysis protocol. * Vascular surgery following. Appreciate their recs. * Continue management by wound care team. #Supraglottic edema: Presented with hoarseness, stridor and SOB. Was hospitalized at [facility] in April 2016 for same issue. During current admission, flexible laryngoscopy was significant for bilateral vocal cord paralysis, however both neck XR and CT were unremarkable and showed no discrete anatomic abnormality. Symptoms have resolved on steroids, currently being tapered. Patient continues to be comfortable on RA. * Will decrease dexamethasone 4 mg PO TID to BID starting tomorrow morning. #Antiphospholipid antibody syndrome: Status post right upper extremity DVT. On life-long anti-coagulation with warfarin, takes 5 mg PO QD. Warfarin was initially held in anticipation for debridement of left leg ulcer and was re- started yesterday. * INR subtherapeutic at 1.6 today. Will administer 7.5 mg of warfarin in the evening. * Heparin IV started today. Will bridge to warfarin until INR is therapeutic. * Continue to check INR daily and dose warfarin accordingly to keep INR 2-3. #ESRD: Presented with uremic encephalopathy and metabolic acidosis. Cr was 5 on admission, with gradual increase from 2-3 within the past year, likely secondary to diabetic nephropathy, although other forms of chronic glomerular disease cannot be ruled out. Mj cath was placed and urgent hemodialysis was initiated ( 06/26) with improvement of mental status. Patient is currently awaiting outpatient dialysis slot. * Nephrology following. Appreciate their recs. * Continue HD MWF. * No PICC lines should be inserted per Nephrology, as patient will need vein site for placement of graft. * Continue sevelamer 800 mg PO TIDAC. * Continue daily Nephrocaps. #T2DM: Uncontrolled blood sugars this admission, secondary to steroids. * Endocrinology following. Appreciate their recs. * Will begin to reduce insulin as dexamethasone is being tapered. Levemir decreased to 9U SQ BID and NovoLog SSI TIDAC decreased to 80-150 give 4 units, 151-200 give 6 units, 201-250 give 8 units, 251-300 give 10 units, 301-350 give 12 units and 351-400 give 14 units. Will keep NovoLog SSI QHS as it is. #HTN: Takes amlodipine 10 mg PO QD, carvedilol 25 mg PO BID, furosemide 80 mg PO BID and hydralazine 50 mg PO BID at home. * Holding home amlodipine, furosemide and hydralazine. * Continue home carvedilol. #Crohn's disease: Patient takes prednisone 10 mg PO QD at home. * Holding home prednisone as patient is currently on dexamethasone. #Acute hypoxemic respiratory failure (resolved): Received IV vancomycin and ceftazidime (06/26-06/28) which were later stopped as medical records revealed that left lower lung consolidation present on CT Chest was present during previous admission at [facility] in April 2016 and thus was unlikely to be represent pneumonia, based on its chronicity. Diet: Renal dialysis diet DVT PPx: Heparin IV, warfarin and ALPs CODE: FULL Problem List: 1. Chronic ulcer of left lower extremity 2. Antiphospholipid antibody syndrome 3. Supraglottic edema 4. End stage renal disease 5. Type 2 diabetes mellitus 6. Bilateral vocal cord paralysis Pain Ratin Pain Location: Left leg Pain Goal: Remain pain free Pain Plan: Morphine 1 mg IV Q4H PRN for severe pain (scale 7-10) Percocet 1 tab PO Q6H PRN for severe pain (scale 7-10) Tylenol 500 mg PO Q6H PRN for moderate pain (scale 4-6) Tomorrow's Labs & Rationales: CBC to monitor WBC in the setting of soft tissue infection of left calf BMP to monitor to lytes in the setting of ESRD on HD INR in the setting of anti-coagulation with warfarin AYUSH VENEGAS MD 07/02/16 1359: Attending MD Review Statement Attending Statement Attending MD Statement: examined this patient, discuss w/resident/PA/CRITICAL POWER INSTALL TECHNICIAN, agreed w/resident/PA/CRITICAL POWER INSTALL TECHNICIAN, reviewed EMR data (avail), discussed with nursing, discussed with case mgmt Attending Assessment/Plan: This is a fairly complex 75-year-old male with a past medical history of hypertension diabetes, chronic steroid dependent Crohn's disease, antiphospholipid antibody syndrome on Coumadin who came in with multiple medical issues. He now is ESRD and started dialysis through a right-sided Mj catheter and is awaiting an outpatient slot. He was treated for vocal cord paralysis hoarseness and subglottic narrowing and is now on a Decadron taper. He has a chronic necrotic nonhealing ulcer and is on vancomycin per ID and vascular surgery. His INR was subtherapeutic and he is on Coumadin, we started heparin today because of the history of antiphospholipid antibody syndrome and will bridge until his INR is therapeutic. We need to clarify with ID and vascular the duration of antibiotics and follow-up.
--- NOTE | 2016-07-02 07:51 | PN- Diabetes ---
Assessment/Plan Assessment: Patient has type 2 diabetes which is being aggravated by high-dose steroid therapy. He has no stridor at present. His blood sugar this morning was low at 74. Steroids have been tapered to 4 milligrams of dexamethasone every 8 hours. Plan: Suggest that we need to begin to reduce his insulin. I would recommend reducing Levemir to 9 units twice a day. We should also reduce the sliding scale NovoLog before meals to 80-150 give 4 units NovoLog, 151-200 give 6 units NovoLog, 201- 250 give 8 units NovoLog, 251-300 give 10 units NovoLog, 301-350 give 12 units NovoLog, 351 of 400 give 14 units NovoLog. Bedtime sliding scale NovoLog can stay the same. Further adjustments may be necessary if the dexamethasone is tapered further. Subjective Subjective: He still has a cough and pain in his left leg Review of Systems Constitutional: Denies: chills, fever. Cardiovascular: Denies: chest pain. Respiratory: Denies: short of breath. Gastrointestinal: Denies: abdominal pain. Genitourinary: Denies: dysuria. Objective Last 24 Hrs of Vital Signs/I&O Vital Signs Date Time Temp Pulse Resp B/P Pulse O2 O2 Flow FiO2 Ox Delivery Rate 07/01 2223 88 150/90 07/01 2200 98.4 72 18 140/84 93 Room Air 07/01 1909 97 Room Air Room Air 07/01 1818 88 150/90 07/01 1600 98.1 80 20 160/88 94 Room Air 07/01 1102 93 Room Air Room Air 07/01 0800 97.0 80 20 140/80 96 Room Air Intake & Output 07/02 0800 12/ 0000 07/01 1600 Intake Total 018 424 4196 Output Total 300 Balance 713 976 5290 Intake, IV 500 Intake, Oral 200 200 800 Number 3 1 Bowel Movements Output, Urine 300 Patient 176 lb Weight Vital Signs Date Time Temp Pulse Resp B/P Pulse O2 O2 Flow FiO2 Ox Delivery Rate 07/013 88 150/90 07/01 2200 98.4 72 18 140/84 93 Room Air 07/01 1909 97 Room Air Room Air 07/01 1818 88 150/90 12/ 1600 98.1 80 20 160/88 94 Room Air 07/01 1102 93 Room Air Room Air 07/01 0800 97.0 80 20 140/80 96 Room Air Intake & Output 07/02 0800 12 0000 07/01 1600 Intake Total 727 006 2988 Output Total 300 Balance 840 649 0466 Intake, IV 500 Intake, Oral 200 200 800 Number 3 1 Bowel Movements Output, Urine 300 Patient 176 lb Weight Physical Exam General Appearance: alert, awake, comfortable Head: normal appearance Neck: normal inspection Respiratory: normal breath sounds Abdomen: normal bowel sounds Extremities: normal inspection, left leg bandaged Current Medications: Current Medications Sig/Kailash Start time Last Medication Dose Route Stop Time Status Admin Acetaminophen 1,000 MG Q6P PRN 06/30 1200 AC 07/01 N/A 1 UNIT IV 1820 Albuterol Sulfate 3 ML BID 06/30 2200 AC 07/01 INH 1908 Albuterol Sulfate 3 ML Q4H PRN 06/30 1200 AC INH Aspirin 81 MG DAILY 07/01 1000 AC 07/01 PO 0858 Atorvastatin Calcium 40 MG 1700 06/30 1700 AC 07/01 PO 1818 Carvedilol 25 MG BID 06/30 2200 AC 07/01 PO 2223 Dexamethasone 4 MG Q8 07/01 2200 AC 07/02 PO 0507 Dexamethasone 4 MG Q8 07/01 1400 DC IV Dexamethasone 4 MG Q8 07/01 1400 DC 07/01 Dextrose/Water 50 ML IV 1818 Dexamethasone 6 MG Q8 07/01 0600 DC 07/01 IV 0603 Diphenoxylate HCl/ 2.5 MG TID PRN 06/30 1200 AC 07/01 Atropine PO 0603 Epoetin Ludwig 6,000 UNIT PER PROTOCL PRN 07/01 1430 AC IV Furosemide 80 MG DAILY 07/01 1000 DC 06/30 IV 1232 Heparin Sodium 25,000 UNIT Q24H 06/30 1200 DC 06/30 (Porcine) IV 1238 Sodium Chloride 500 ML Insulin Aspart 0 TIDAC/HS 06/30 2100 AC 07/01 SC 2130 Insulin Detemir 14 UNITS BID 06/30 2200 AC 07/01 SC 2226 Iron Sucrose 100 MG PER PROTOCL PRN 07/01 1430 AC Sodium Chloride 100 ML IV Magnesium Oxide 400 MG ONE ONE 07/01 0800 DC 07/01 PO 07/01 0801 1821 Morphine Sulfate 1 MG Q4P PRN 07/01 1500 AC 07/01 IV 1502 Multivitamins 1 TAB DAILY 07/01 1000 AC 07/01 PO 0858 Non-Formulary 0 SEE ADMIN CRITERIA 07/01 1245 DC Medication ANY Nystatin 5 ML 4 TIMES/DAY 07/01 1000 AC 07/01 PO 2226 Oxycodone/ 1 TAB Q6P PRN 06/30 1900 AC 07/02 Acetaminophen PO 0441 Patient Medication 1 UNIT ONE NR 07/01 1515 DC 07/01 Teaching ED 07/01 2115 1820 Sevelamer Carbonate 800 MG WITH MEALS 06/30 1200 AC 07/01 PO 1817 Tamsulosin HCl 0.4 MG DAILY 07/01 1000 AC 07/01 PO 0858 Vancomycin HCl 1 MG DAILY PRN 07/01 1300 AC Dextrose/Water 250 ML IV Vancomycin HCl 1,000 MG ONCE 07/01 1230 DC Sodium Chloride 250 ML IV 07/01 2100 Vitamin A/Vitamin D 1 CHAITANYA BID 06/30 2200 AC 07/01 TOP 2225 Warfarin Sodium 5 MG ONCE ONE 07/01 1700 DC 07/01 PO 07/01 1701 1820 Zinc Oxide 1 CHAITANYA BID 06/30 2200 AC 07/01 TOP 2225 Findings Pertinent Lab/Avtar Results: Laboratory Tests 07/02 07/01 07/01 0540 1618 1340 Chemistry Sodium (137 - 145 mmol/L) 137 Potassium (3.5 - 5.1 mmol/L) 3.8 Chloride (98 - 107 mmol/L) 103 Carbon Dioxide (22 - 30 mmol/L) 25 Anion Gap (5 - 16) 9 BUN (9 - 20 mg/dL) 77 H Creatinine (0.7 - 1.2 mg/dL) 3.3 H Estimated GFR (>60 ml/min) 18 L Glucose (65 - 99 mg/dL) 140 H Calcium (8.4 - 10.2 mg/dL) 7.6 L Phosphorus (2.5 - 4.5 mg/dL) 4.5 Magnesium (1.6 - 2.3 mg/dL) 1.8 Total Bilirubin (0.2 - 1.3 mg/dL) 0.3 AST (17 - 59 U/L) 16 L ALT (21 - 72 U/L) 29 Albumin (3.5 - 5.0 g/dL) 2.7 L Coagulation PT (9.4 - 12.5 SEC) 16.7 H Cancelled 25.1 H INR (0.90 - 1.17) 1.60 H Cancelled 2.41 H APTT (25 - 37 SEC) > 120 *H Hematology CBC w Diff NO MAN DIFF REQ WBC (4.8 - 10.8 /CUMM) 12.6 H RBC (4.70 - 6.10 /CUMM) 3.09 L Hgb (14.0 - 18.0 G/DL) 9.0 L Hct (42 - 52 %) 29.4 L MCV (80.0 - 94.0 FL) 95.2 H MCH (27.0 - 31.0 PG) 29.1 RDW (11.5 - 14.5 %) 18.3 H Plt Count (130 - 400 /CUMM) 133 MPV (7.4 - 10.4 FL) 10.9 H Gran % (42.2 - 75.2 %) 92.3 H Lymphocytes % (20.5 - 51.1 %) 2.1 L Monocytes % (1.7 - 9.3 %) 5.5 Eosinophils % (0 - 5 %) 0.1 Basophils % (0.0 - 2.0 %) 0 L PUBS MCHC (33.0 - 37.0 G/DL) 30.6 L Immunology Absolute Granulocytes (1.4 - 6.5 /CUMM) 11.6 H Absolute Lymphocytes (1.2 - 3.4 /CUMM) 0.3 L Absolute Monocytes (0.10 - 0.60 /CUMM) 0.7 H Absolute Eosinophils (0.0 - 0.7 /CUMM) 0 Absolute Basophils (0.0 - 0.2 /CUMM) 0
[2016-07-02 08:21] VITALS: BP 132/70
--- NOTE | 2016-07-02 10:45 | PN- Infect Dx ---
Subjective Subjective: Afebrile on steroids. He offers no complaints at this time. Objective Last 24 Hrs of Vital Signs/I&O Vital Signs Date Time Temp Pulse Resp B/P Pulse O2 O2 Flow FiO2 Ox Delivery Rate 07/02 821 97.3 77 18 132/70 97 Room Air 07/01 2223 88 150/90 07/01 2200 98.4 72 18 140/84 93 Room Air 07/01 1909 97 Room Air Room Air 07/01 1818 88 150/90 07/01 1600 98.1 80 20 160/88 94 Room Air 07/01 1102 93 Room Air Room Air Intake & Output 07/02 0800 12 0000 Intake Total 200 200 Output Total Balance 200 200 Intake, Oral 200 200 Number 3 Bowel Movements Patient 176 lb Weight Physical Exam Other Physical Findings: He appears comfortable in no acute distress Neck tunneled catheter in the right IJ with no inflammation at the site Lungs scattered rhonchi bilaterally Heart regular rhythm with no murmur Extremities left leg dressing intact Results Last 24 Hours of Lab Results: Laboratory Tests 07/02 07/01 07/01 0540 1618 1340 Chemistry Sodium (137 - 145 mmol/L) 137 Potassium (3.5 - 5.1 mmol/L) 3.8 Chloride (98 - 107 mmol/L) 103 Carbon Dioxide (22 - 30 mmol/L) 25 Anion Gap (5 - 16) 9 BUN (9 - 20 mg/dL) 77 H Creatinine (0.7 - 1.2 mg/dL) 3.3 H Estimated GFR (>60 ml/min) 18 L Glucose (65 - 99 mg/dL) 140 H Calcium (8.4 - 10.2 mg/dL) 7.6 L Phosphorus (2.5 - 4.5 mg/dL) 4.5 Magnesium (1.6 - 2.3 mg/dL) 1.8 Total Bilirubin (0.2 - 1.3 mg/dL) 0.3 AST (17 - 59 U/L) 16 L ALT (21 - 72 U/L) 29 Albumin (3.5 - 5.0 g/dL) 2.7 L Coagulation PT (9.4 - 12.5 SEC) 16.7 H Cancelled 25.1 H INR (0.90 - 1.17) 1.60 H Cancelled 2.41 H APTT (25 - 37 SEC) > 120 *H Hematology CBC w Diff NO MAN DIFF REQ WBC (4.8 - 10.8 /CUMM) 12.6 H RBC (4.70 - 6.10 /CUMM) 3.09 L Hgb (14.0 - 18.0 G/DL) 9.0 L Hct (42 - 52 %) 29.4 L MCV (80.0 - 94.0 FL) 95.2 H MCH (27.0 - 31.0 PG) 29.1 RDW (11.5 - 14.5 %) 18.3 H Plt Count (130 - 400 /CUMM) 133 MPV (7.4 - 10.4 FL) 10.9 H Gran % (42.2 - 75.2 %) 92.3 H Lymphocytes % (20.5 - 51.1 %) 2.1 L Monocytes % (1.7 - 9.3 %) 5.5 Eosinophils % (0 - 5 %) 0.1 Basophils % (0.0 - 2.0 %) 0 L PUBS MCHC (33.0 - 37.0 G/DL) 30.6 L Immunology Absolute Granulocytes (1.4 - 6.5 /CUMM) 11.6 H Absolute Lymphocytes (1.2 - 3.4 /CUMM) 0.3 L Absolute Monocytes (0.10 - 0.60 /CUMM) 0.7 H Absolute Eosinophils (0.0 - 0.7 /CUMM) 0 Absolute Basophils (0.0 - 0.2 /CUMM) 0 Last 24 Hours of Avtar Results: OR culture June 30 left leg positive for diphtheroids and coag-negative Staph Assessment/Plan Impression: Stable with temperatures remaining normal (on tapering steroids for vocal cord paralysis) now on Vancomycin, begun yesterday for a soft tissue infection in the left calf status post excisional debridement through the subcutaneous and muscular tissue 2 days ago with "seropurulent" drainage noted and with OR culture growing coag-negative Staph and diphtheroids, neither of which are typically considered pathogenic. His white blood cell count is elevated today, likely secondary to steroids. Suggestion: 1. Follow-up final OR culture 2. Continue Vancomycin after each dialysis per protocol
--- NOTE | 2016-07-02 10:47 | PN- Cardiology ---
Subjective Subjective: The patient is awake, alert The patient overall feels improved The events of the last 24 hours as well as telemetry were reviewed. Review of Systems: The review of systems is negative for chest pains, palpitations nor lightheadedness. The remainder of the 14 point review of systems is noncontributory with the exception of above. Objective Vital Signs and I&Os Vital Signs Date Time Temp Pulse Resp B/P Pulse O2 O2 Flow FiO2 Ox Delivery Rate 07/02 821 97.3 77 18 132/70 97 Room Air 07/01 2223 88 150/90 07/01 2200 98.4 72 18 140/84 93 Room Air 07/01 1909 97 Room Air Room Air 07/01 1818 88 150/90 07/01 1600 98.1 80 20 160/88 94 Room Air 07/01 1102 93 Room Air Room Air Intake & Output 07/02 1600 07/02 0800 07/02 0000 07/01 1600 07/01 0800 07/01 0000 Intake Total 384 365 4644 291.2 311 Output Total 300 500 850 Balance 743 070 3269 -208.8 -539 Intake, IV 500 191.2 191 Intake, Oral 200 200 800 100 120 Number 3 1 2 2 Bowel Movements Output, Urine 300 500 850 Patient 176 lb Weight Physical Exam: General: Nontoxic, no apparent distress. HEENT: Sclera and conjunctiva within normal limits, without xanthelasmas. Neck: Carotids 2+ without bruits. Respiratory: Clear to auscultation, air movement is good, without accessory respiratory muscle use. Heart: Regular rate and rhythm, without murmurs, without JVD. Abdomen: Soft, nontender, no masses, normoactive bowel sounds. Extremities: Without clubbing, cyanosis, without edema. Neuro: Nonfocal exam, strength, 5 out of 5 Skin: Within normal limits without lesions. Psych: Mood and affect: Normal Current Medications: Current Medications Sig/Kailash Start time Last Medication Dose Route Stop Time Status Admin Acetaminophen 500 MG Q6P PRN 07/02 0815 AC 07/02 PO 0925 Acetaminophen 650 MG .STK-MED ONE 07/02 0232 DC PO 07/02 023 Acetaminophen 1,000 MG Q6P PRN 06/30 1200 DC 07/01 N/A 1 UNIT IV 1820 Albuterol Sulfate 3 ML BID 06/30 2200 AC 07/01 INH 1908 Albuterol Sulfate 3 ML Q4H PRN 06/30 1200 AC INH Aspirin 81 MG DAILY 07/01 1000 AC 07/01 PO 0858 Atorvastatin Calcium 40 MG 1700 06/30 1700 AC 07/01 PO 1818 Carvedilol 25 MG BID 06/30 2200 AC 07/01 PO 2223 Dexamethasone 4 MG Q8 07/01 2200 AC 07/02 PO 0507 Dexamethasone 4 MG Q8 07/01 1400 DC IV Dexamethasone 4 MG Q8 07/01 1400 DC 07/01 Dextrose/Water 50 ML IV 1818 Diphenoxylate HCl/ 2.5 MG TID PRN 06/30 1200 AC 07/01 Atropine PO 0603 Epoetin Ludwig 6,000 UNIT PER PROTOCL PRN 07/01 1430 AC IV Heparin Sodium 25,000 UNIT Q24H 07/02 1000 AC (Porcine) IV Sodium Chloride 500 ML Heparin Sodium 25,000 UNIT Q24H 06/30 1200 DC 06/30 (Porcine) IV 1238 Sodium Chloride 500 ML Insulin Aspart 0 TIDAC/HS 06/30 2100 AC 07/01 SC 2130 Insulin Detemir 14 UNITS BID 06/30 2200 AC 07/01 SC 2226 Iron Sucrose 100 MG PER PROTOCL PRN 07/01 1430 AC Sodium Chloride 100 ML IV Morphine Sulfate 1 MG Q4P PRN 07/01 1500 AC 07/01 IV 1502 Multivitamins 1 TAB DAILY 07/01 1000 AC 07/01 PO 0858 Non-Formulary 0 SEE ADMIN CRITERIA 07/01 1245 DC Medication ANY Nystatin 5 ML 4 TIMES/DAY 07/01 1000 AC 07/01 PO 2226 Oxycodone/ 1 TAB Q6P PRN 06/30 1900 AC 07/02 Acetaminophen PO 0441 Patient Medication 1 UNIT ONE NR 07/01 1515 DC 07/01 Teaching ED 07/01 2115 1820 Sevelamer Carbonate 800 MG WITH MEALS 06/30 1200 AC 07/01 PO 1817 Tamsulosin HCl 0.4 MG DAILY 07/01 1000 AC 07/01 PO 0858 Vancomycin HCl 1 MG DAILY PRN 07/01 1300 AC Dextrose/Water 250 ML IV Vancomycin HCl 1,000 MG ONCE 07/01 1230 DC Sodium Chloride 250 ML IV 07/01 2100 Vitamin A/Vitamin D 1 CHAITANYA BID 06/30 2200 AC 07/01 TOP 2225 Warfarin Sodium 7.5 MG COUMADIN 1700 ONE 07/02 1700 CAN PO 07/02 1701 Warfarin Sodium 7.5 MG COUMADIN 1700 ONE 07/02 1700 AC PO 07/02 1701 Warfarin Sodium 5 MG ONCE ONE 07/01 1700 DC 07/01 PO 07/01 1701 1820 Zinc Oxide 1 CHAITANYA BID 06/30 2200 AC 07/01 TOP 2225 Results Last 48 Hrs of Labs/Mics: Laboratory Tests 07/02/16 0540: PT 16.7 H, INR 1.60 H 07/01/16 1618: PT Cancelled, INR Cancelled 07/01/16 1340: Anion Gap 9, Estimated GFR 18 L, Glucose 140 H, Calcium 7.6 L, Phosphorus 4.5 , Magnesium 1.8, Total Bilirubin 0.3, AST 16 L, ALT 29, Albumin 2.7 L, PT 25.1 H, INR 2.41 H, APTT > 120 *H, CBC w Diff NO MAN DIFF REQ, RBC 3.09 L, MCV 95.2 H, MCH 29.1, RDW 18.3 H, MPV 10.9 H, Gran % 92.3 H, Lymphocytes % 2.1 L, Monocytes % 5.5, Eosinophils % 0.1, Basophils % 0 L, PUBS MCHC 30.6 L, Absolute Granulocytes 11.6 H, Absolute Lymphocytes 0.3 L, Absolute Monocytes 0.7 H, Absolute Eosinophils 0, Absolute Basophils 0 06/30/16 1840: APTT 64 H Assessment/Plan Assessment/Plan 1. Elevated troponin possibly due to demand ischemia 2. Possible pneumonia 3. Subglottic edema 4. History of antiphospholipid antibody syndrome maintained on anticoagulation 5. Lower extremity ulcer with peripheral vascular disease 6. End-stage renal disease on dialysis 7. History of hypertension 8. History of upper extremity thrombosis The troponin isoenzyme elevation is likely multifactorial and demonstrates chronic elevation in the setting of renal dysfunction. We will continue a conservative approach to management. Further workup which would include an overall assessment of underlying ischemic burden (through a Lexiscan stress sestamibi) may be considered after discharge.
--- NOTE | 2016-07-02 12:00 | NUR ---
PHYSICAL THERAPY. Pt UNAVAILABLE FOR PT TREATMENT THIS AM, BUSY WITH NURSING INTERVENTIONS ON SEVERAL ATTEMPTS TO SEE Pt. PT WILL F/U APPROPRIATE.
--- NOTE | 2016-07-02 12:49 | PN- Nephrology ---
Assessment/Plan Assessment: 1. ESRD likely secondary to diabetic nephropathy 2. Diabetes mellitus with peripheral vascular disease status post right TMA, status post debridement left ankle ulcer 3. Antiphospholipid antibody syndrome status post DVT Suggestion: 1. Hemodialysis tomorrow and then to continue on a MWF schedule 2. Antibiotic therapy per ID 3. Await outpatient dialysis slot 4. No PICC lines 5. Vascular access surgery once infection no longer an issue Subjective Subjective: Patient feeling a little better today although he still has pain in his left ankle/foot area. Now out of ICU. He denies shortness of breath, chest pain, nausea or vomiting. Objective Vital Signs and I&Os Vital Signs Date Time Temp Pulse Resp B/P Pulse O2 O2 Flow FiO2 Ox Delivery Rate 07/02 1112 96 Room Air 07/02 1047 77 132/70 07/02 1046 77 132/70 07/02 0821 97.3 77 18 132/70 97 Room Air 07/01 2223 88 150/90 07/01 2200 98.4 72 18 140/84 93 Room Air 07/01 1909 97 Room Air Room Air 07/01 1818 88 150/90 07/01 1600 98.1 80 20 160/88 94 Room Air Intake & Output 07/02 1600 07/02 0400 07/01 1600 07/01 0400 06/30 1600 06/30 0400 Intake Total 969 705 9140.2 311 982 384.4 Output Total 800 850 850 600 Balance 200 200 791.2 -539 132 -215.6 Intake, IV 691.2 191 762 334.4 Intake, Oral 200 200 900 120 220 50 Number 3 3 2 1 2 Bowel Movements Output, Urine 800 850 850 600 Patient 176 lb 0 lb Weight Physical Exam: General: Well-developed white male in NAD Skin: No rash or jaundice HEENT: Conjunctivae pink, sclerae anicteric, mucous membranes moist Neck: Without masses or thyromegaly, no supraclavicular or cervical adenopathy; there is a right IJ tunneled dialysis catheter in place Chest: Clear to P&A Heart: Regular rate and rhythm without S3 or rub Abdomen: Soft and nontender without palpable masses or organomegaly Extremities: Lower extremity dressing intact, +edema Neuro: No focal findings, no asterixis or myoclonus Results Pertinent Lab Results: Laboratory Tests 07/02 07/01 07/01 0540 1618 1340 Chemistry Sodium (137 - 145 mmol/L) 137 Potassium (3.5 - 5.1 mmol/L) 3.8 Chloride (98 - 107 mmol/L) 103 Carbon Dioxide (22 - 30 mmol/L) 25 Anion Gap (5 - 16) 9 BUN (9 - 20 mg/dL) 77 H Creatinine (0.7 - 1.2 mg/dL) 3.3 H Estimated GFR (>60 ml/min) 18 L Glucose (65 - 99 mg/dL) 140 H Calcium (8.4 - 10.2 mg/dL) 7.6 L Phosphorus (2.5 - 4.5 mg/dL) 4.5 Magnesium (1.6 - 2.3 mg/dL) 1.8 Total Bilirubin (0.2 - 1.3 mg/dL) 0.3 AST (17 - 59 U/L) 16 L ALT (21 - 72 U/L) 29 Albumin (3.5 - 5.0 g/dL) 2.7 L Coagulation PT (9.4 - 12.5 SEC) 16.7 H Cancelled 25.1 H INR (0.90 - 1.17) 1.60 H Cancelled 2.41 H APTT (25 - 37 SEC) > 120 *H Hematology CBC w Diff NO MAN DIFF REQ WBC (4.8 - 10.8 /CUMM) 12.6 H RBC (4.70 - 6.10 /CUMM) 3.09 L Hgb (14.0 - 18.0 G/DL) 9.0 L Hct (42 - 52 %) 29.4 L MCV (80.0 - 94.0 FL) 95.2 H MCH (27.0 - 31.0 PG) 29.1 RDW (11.5 - 14.5 %) 18.3 H Plt Count (130 - 400 /CUMM) 133 MPV (7.4 - 10.4 FL) 10.9 H Gran % (42.2 - 75.2 %) 92.3 H Lymphocytes % (20.5 - 51.1 %) 2.1 L Monocytes % (1.7 - 9.3 %) 5.5 Eosinophils % (0 - 5 %) 0.1 Basophils % (0.0 - 2.0 %) 0 L PUBS MCHC (33.0 - 37.0 G/DL) 30.6 L Immunology Absolute Granulocytes (1.4 - 6.5 /CUMM) 11.6 H Absolute Lymphocytes (1.2 - 3.4 /CUMM) 0.3 L Absolute Monocytes (0.10 - 0.60 /CUMM) 0.7 H Absolute Eosinophils (0.0 - 0.7 /CUMM) 0 Absolute Basophils (0.0 - 0.2 /CUMM) 0 06/30 06/30 06/30 1840 0850 0045 Chemistry Sodium (137 - 145 mmol/L) 137 Potassium (3.5 - 5.1 mmol/L) 4.4 Chloride (98 - 107 mmol/L) 101 Carbon Dioxide (22 - 30 mmol/L) 24 Anion Gap (5 - 16) 13 BUN (9 - 20 mg/dL) 57 H Creatinine (0.7 - 1.2 mg/dL) 2.9 H Estimated GFR (>60 ml/min) 21 L BUN/Creatinine Ratio (7 - 25 %) 19.7 Magnesium (1.6 - 2.3 mg/dL) 1.9 Coagulation APTT (25 - 37 SEC) 64 H > 120 *H < 20 L Hematology CBC w Diff MAN DIFF ORDERED WBC (4.8 - 10.8 /CUMM) 7.9 RBC (4.70 - 6.10 /CUMM) 3.48 L Hgb (14.0 - 18.0 G/DL) 10.2 L Hct (42 - 52 %) 33.0 L MCV (80.0 - 94.0 FL) 94.6 H MCH (27.0 - 31.0 PG) 29.2 RDW (11.5 - 14.5 %) 18.9 H Plt Count (130 - 400 /CUMM) 129 L MPV (7.4 - 10.4 FL) 9.9 Gran % (42.2 - 75.2 %) 94.9 H Lymphocytes % (20.5 - 51.1 %) 1.7 L Monocytes % (1.7 - 9.3 %) 3.4 Eosinophils % (0 - 5 %) 0 Basophils % (0.0 - 2.0 %) 0 L Segmented Neutrophils (42.2 - 75.2 %) 95 H Lymphocytes (20.5 - 51.1 %) 2 L Monocytes (1.7 - 9.3 %) 3 Nucleated RBCs (0.0 - 0.0 /100WBC) 1 H Platelet Estimate (ADEQUATE) DECREASED Polychromasia 1+ Anisocytosis 1+ PUBS MCHC (33.0 - 37.0 G/DL) 30.9 L Immunology Absolute Granulocytes (1.4 - 6.5 /CUMM) 7.5 H Absolute Lymphocytes (1.2 - 3.4 /CUMM) 0.1 L Absolute Monocytes (0.10 - 0.60 /CUMM) 0.3 Absolute Eosinophils (0.0 - 0.7 /CUMM) 0 Absolute Basophils (0.0 - 0.2 /CUMM) 0 06/29 06/29 1515 1310 Coagulation PT (9.4 - 12.5 SEC) 16.5 H Cancelled INR (0.90 - 1.17) 1.58 H Cancelled APTT (25 - 37 SEC) 120 *H
--- NOTE | 2016-07-02 13:26 | NUR ---
WOUND CARE: WOUND VAC REAPPLIED PER AKIVAS REQUEST - PT SEEN AND EXAMINED BY DR WATKINS WELL - TOLERATED WELL - RECOMMENDATION: DECREASE PRESSURE TO 75 MMHG DUE TO DESICATION OF WOUND BASE - DR WATKINS REQUESTING TCOM MEASUREMENTS - TO NOTE, PT HAD TCOM MEASURED IN MAY AT DR VENEGAS REQUEST
[2016-07-02 16:16] VITALS: BP 132/60
[2016-07-02 17:47] LABS: PTT 50 SEC (25-37)
[2016-07-03] VITALS: BP 132/68
[2016-07-03 00:53] LABS: PTT 93 SEC (25-37)
[2016-07-03 07:04] LABS: ABSOLUTE BASOPHIL COUNT 0 /CUMM (0.0-0.2); ABSOLUTE EOSINOPHIL COUNT 0 /CUMM (0.0-0.7); ABSOLUTE LYMPH COUNT 0.4 /CUMM (1.2-3.4); ABSOLUTE MONOCYTE COUNT 1.2 /CUMM (0.10-0.60); BASOPHIL % 0.1 % (0.0-2.0); EOSINOPHIL % 0 % (0-5); HEMATOCRIT 31.5 % (42-52); MEAN CORPUSCULAR HGB 29.4 PG (27.0-31.0); MEAN CORPUSCULAR HGB CONC 31.1 G/DL (33.0-37.0); MEAN CORPUSCULAR VOLUME 94.7 FL (80.0-94.0); MEAN PLATELET VOLUME 11.1 FL (7.4-10.4); PLATELET COUNT 106 /CUMM (130-400); RED BLOOD CELL CT 3.33 /CUMM (4.70-6.10); WHITE BLOOD CELL COUNT 14.7 /CUMM (4.8-10.8)
--- NOTE | 2016-07-03 07:06 | PN- Housestaff ---
[facility] [place] 07/03/16 0706: Subjective Follow-up For: Chronic nonhealing ulcer of left calf Supraglottic edema ESRD T2DM Tele-Events Since Last Visit: Sinus rhythm, HR 76-84. No acute telemetry events reported overnight. Subjective: No acute events overnight. Patient seen and examined this morning. He complains of pain in his left leg ulcer site which he attributes to pressure from the wound VAC. Review of Systems Constitutional: Denies: chills, fever. Cardiovascular: Denies: chest pain. Respiratory: Denies: short of breath. Gastrointestinal: Denies: abdominal pain, constipation, diarrhea, nausea, vomiting. Objective Last 24 Hrs of Vital Signs/I&O Vital Signs Date Time Temp Pulse Resp B/P Pulse O2 O2 Flow FiO2 Ox Delivery Rate 07/03 0847 95 Room Air Room Air 07/03 0000 97.8 86 18 132/68 95 Room Air 07/02 2105 90 122/82 07/02 2056 94 Room Air 4.5L 07/02 1627 Room Air Room Air 07/02 1616 98.2 82 20 132/60 93 Room Air 07/02 1600 93 Nasal Cannula 07/02 1112 96 Room Air Intake & Output 07/03 1600 07/03 0800 12 0000 Intake Total 280 870 Output Total 355 Balance -75 870 Intake, IV 160 170 Intake, Oral 120 700 Number 4 Bowel Movements Output, 5 Drainage Output, Urine 350 Patient 84.368 kg Weight Physical Exam General Appearance: Alert, Oriented X3, No Acute Distress Skin: Scattered Petechiae and Purpura on Trunk and Extremities HEENT: Mucous Membr. moist/pink Neck: Mj Cath in [facility] at [facility] with No Inflammation at Site Cardiovascular: Regular Rate, Normal S1, Normal S2, No Murmurs, Gallops, Rubs Lungs: Clear to Auscultation, Normal Air Movement Abdomen: Soft, No Tenderness, Positive Bowel Sounds Extremities: No Clubbing, No Cyanosis, Left Leg with Dressing in Place Current Medications: Current Medications Sig/Kailash Start time Last Medication Dose Route Stop Time Status Admin Acetaminophen 500 MG Q6P PRN 07/02 0815 AC 07/03 PO 1026 Albuterol Sulfate 3 ML BID 06/30 2200 AC 07/03 INH 0847 Albuterol Sulfate 3 ML Q4H PRN 06/30 1200 AC INH Aspirin 81 MG DAILY 07/01 1000 AC 07/02 PO 1048 Atorvastatin Calcium 40 MG 1700 06/30 1700 AC 07/02 PO 1612 Carvedilol 25 MG BID 06/30 2200 AC 07/02 PO 2105 Dexamethasone 4 MG BID 07/03 1000 AC PO Dexamethasone 4 MG Q8 07/01 2200 DC 12 PO 1400 Diphenoxylate HCl/ 2.5 MG TID PRN 06/30 1200 AC 07/01 Atropine PO 0603 Epoetin Ludwig 6,000 UNIT PER PROTOCL PRN 07/01 1430 AC IV Heparin Sodium 5,000 UNIT .STK-MED ONE 07/02 1841 DC (Porcine) IV 07/02 184 Heparin Sodium 2,400 UNIT ONCE ONE 07/02 1830 DC 07/02 (Porcine) IV 07/02 183 1844 Heparin Sodium 25,000 UNIT Q24H 07/02 1000 DC 07/02 (Porcine) IV 1046 Sodium Chloride 500 ML Insulin Aspart 0 TIDAC/HS 06/30 2100 AC 07/02 SC 2104 Insulin Detemir 6 UNITS BID 07/03 2200 UNVr SC Insulin Detemir 9 UNITS BID 07/02 2200 DC 07/02 SC 2104 Insulin Detemir 14 UNITS BID 06/30 2200 DC 07/02 SC 1045 Iron Sucrose 100 MG PER PROTOCL PRN 07/01 1430 AC Sodium Chloride 100 ML IV Morphine Sulfate 1 MG Q4P PRN 07/01 1500 AC 07/03 IV 0203 Multivitamins 1 TAB DAILY 07/01 1000 AC 07/02 PO 1046 Nystatin 5 ML 4 TIMES/DAY 07/01 1000 AC 07/02 PO 2105 Oxycodone/ 1 TAB Q6P PRN 06/30 1900 AC 07/03 Acetaminophen PO 0112 Patient Medication 1 ED .STK-MED ONE 07/02 1405 DC Teaching ED 07/02 1406 Sevelamer Carbonate 800 MG WITH MEALS 06/30 1200 AC 07/02 PO 1753 Tamsulosin HCl 0.4 MG DAILY 07/01 1000 AC 07/02 PO 1046 Vancomycin HCl 1 MG DAILY PRN 07/01 1300 AC Dextrose/Water 250 ML IV Vitamin A/Vitamin D 1 CHAITANYA BID 06/30 2200 AC 07/02 TOP 2105 Warfarin Sodium 4 MG ONCE ONE 07/03 1700 CAN PO 07/03 1701 Warfarin Sodium 7.5 MG COUMADIN 1700 ONE 07/02 1700 DC 07/02 PO 07/02 1701 1613 Zinc Oxide 1 CHAITANYA BID 06/30 2200 AC 07/02 [facility] 2105 Last 24 Hrs of Lab/Avtar Results Last 24 Hrs of Labs/Mics: Laboratory Tests 07/03/16 0830: Anion Gap 8, Estimated GFR 23 L, BUN/Creatinine Ratio 21.5, Calcium 7.7 L, Phosphorus 3.4, Magnesium 1.7, Albumin 2.7 L, CBC w Diff NO MAN DIFF REQ, RBC 3.35 L, MCV 94.3 H, MCH 29.1, RDW 19.0 H, MPV 11.1 H, Gran % 88.6 H, Lymphocytes % 3.7 L, Monocytes % 7.4, Eosinophils % 0.2, Basophils % 0.1, PUBS MCHC 30.9 L, Absolute Granulocytes 13.4 H, Absolute Lymphocytes 0.6 L, Absolute Monocytes 1.1 H, Absolute Eosinophils 0, Absolute Basophils 0 07/03/16 0535: Anion Gap 8, Estimated GFR 23 L, BUN/Creatinine Ratio 21.9, PT 38.0 H, INR 3.67 H, CBC w Diff NO MAN DIFF REQ, RBC 3.33 L, MCV 94.7 H, MCH 29.4, RDW 19.0 H, MPV 11.1 H, Gran % 88.7 H, Lymphocytes % 3.0 L, Monocytes % 8.2, Eosinophils % 0, Basophils % 0.1, PUBS MCHC 31.1 L, Absolute Granulocytes 13.0 H, Absolute Lymphocytes 0.4 L, Absolute Monocytes 1.2 H, Absolute Eosinophils 0, Absolute Basophils 0 07/03/16 0000: APTT 93 H 07/02/16 1715: APTT 50 H OR Cultures (06/30): Diphtheroids and coag-negative Staph Assessment/Plan Assessment: 75 y/o M with PMHx of antiphospholipid antibody syndrome, diabetes and CKD who presented with SOB, hoarseness and stridor, found to be uremic with initiation of HD, status post debridement of chronic left leg ulcer, on IV vancomycin for soft tissue infection. #Chronic left lower extremity ulcer: Has chronic nonhealing ulcers of left leg for which he sees Dr. Pretty as outpatient. Likely secondary to T2DM and PVD, status post right TMA. Status post excisional debridement through the subcutaneous and muscular tissue with reported seropurulent drainage this admission (06/30) and OR cultures growing dipthteroids and coag-negative Staph. Although these are not typically pathogenic organisms, currently on Day 2 of vancomycin or possible soft tissue infection. Continues to be afebrile. WBC continues to trend up, most likely secondary to steroids. Wound VAC has been placed by wound care team. Patient has been complaining of increasing pain and pressure today. * ID following. Appreciate their recs. * Continue vancomycin per dialysis protocol to plan for a 7-10 day course. * Appreciate wound care input on the wound VAC pressure setting. #Supraglottic edema: Presented with hoarseness, stridor and SOB. Was hospitalized at [place] in April 2016 for same issue. During current admission, flexible laryngoscopy was significant for bilateral vocal cord paralysis, however both neck XR and CT were unremarkable and showed no discrete anatomic abnormality. Symptoms have resolved on steroids, currently being tapered. Patient continues to be comfortable on RA. * Dexamethasone currently at 4 mg PO BID. Will continue to taper. #Antiphospholipid antibody syndrome: Status post right upper extremity DVT. On life-long anti-coagulation with warfarin, takes 5 mg PO QD. Warfarin was initially held in anticipation for debridement of left leg ulcer. Patient was started on heparin IV for bridging to warfarin. INR has increased to 3.67 today from 1.6, after 7.5 mg of warfarin. * Will discontinue heparin IV. * Will hold warfarin today given supratherapeutic INR. * Continue to check INR daily and dose warfarin accordingly to keep INR between 2-3. #ESRD: Presented with uremic encephalopathy and metabolic acidosis. Cr was 5 on admission, with gradual increase from 2-3 within the past year, likely secondary to diabetic nephropathy, although other forms of chronic glomerular disease cannot be ruled out. Mj cath was placed and urgent hemodialysis was initiated ( 06/26) with improvement of mental status. Patient is currently awaiting outpatient dialysis slot. * Nephrology following. Appreciate their recs. * Continue HD MWF. * No PICC lines should be inserted per Nephrology, as patient will need vein site for placement of graft. * Continue sevelamer 800 mg PO TIDAC. * Continue daily Nephrocaps. #T2DM: Uncontrolled blood sugars this admission, secondary to steroids. * Endocrinology following. Appreciate their recs. * Will continue to reduce insulin as dexamethasone is being tapered. * Will decrease Levemir to 6 U SQ BID. * Continue NovoLog SSI TIDAC: 80-150 give 4 units, 151-200 give 6 units, 201-250 give 8 units, 251-300 give 10 units, 301-350 give 12 units and 351-400 give 14 units and NovoLog SSI QHS: 251-300 give 3 units, 301-350 give 4 units, 351-400 give 5 units. #HTN: Takes amlodipine 10 mg PO QD, carvedilol 25 mg PO BID, furosemide 80 mg PO BID and hydralazine 50 mg PO BID at home. * Holding home amlodipine, furosemide and hydralazine. * Continue home carvedilol. #Crohn's disease: Patient takes prednisone 10 mg PO QD at home. * Holding home prednisone as patient is currently on dexamethasone. #Acute hypoxemic respiratory failure (resolved): Received IV vancomycin and ceftazidime (06/26-06/28) which were later stopped as medical records revealed that left lower lung consolidation present on CT Chest was also present during previous admission at [place] in April 2016 and thus was unlikely to represent pneumonia, based on its chronicity. Diet: Renal Dialysis Diet (regular and nectar thick liquids) DVT PPx: Warfarin and ALPs CODE: FULL Problem List: 1. Chronic ulcer of left lower extremity 2. Antiphospholipid antibody syndrome 3. Type 2 diabetes mellitus 4. Bilateral vocal cord paralysis 5. Peripheral vascular disease 6. End stage renal disease 7. Supraglottic edema 8. Wound infection Pain Ratin Pain Location: Left leg ulcer Pain Goal: Remain pain free Pain Plan: Morphine 1 mg IV Q4H PRN for severe pain (scale 7-10) Percocet 1 tab PO Q6H PRN for severe pain (scale 7-10) Tylenol 500 mg PO Q6H PRN for moderate pain (scale 4-6) Tomorrow's Labs & Rationales: CBC to monitor WBC in the setting of soft tissue infection of left calf BMP to monitor to lytes in the setting of ESRD on HD INR in the setting of anti-coagulation with warfarin AYUSH VENEGAS MD 07/03/16 1007: Attending Review Statement Attending Statement Attending MD Statement: examined this patient, discuss w/resident/PA/UG DESIGNER, agreed w/resident/PA/UG DESIGNER, reviewed EMR data (avail), discussed with nursing, discussed with case mgmt Attending Assessment/Plan: Patient seen during dialysis. He has a lot of pressure from the wound VAC and generally is feeling down. He is a 75-year-old male with antiphospholipid antibody syndrome on Coumadin, ESRD now on hemodialysis Friday. We are awaiting RN outpatient dialysis slot for him. Oscar Harden MD recommending Vanco per dialysis protocol for a total of 7-10 days for the skin and soft tissue infection. We are tapering the Decadron and he will go to rehabilitation and that is a bed available. and soft tissue infection. We are tapering the Decadron and he will go to rehabilitation and that is a bed available.
--- NOTE | 2016-07-03 07:58 | PN- Diabetes ---
Assessment/Plan Assessment: Patient has type 2 diabetes which is being aggravated by high-dose steroid therapy. He has no stridor at present. Steroids have been tapered further to dexamethasone by mouth 4 mg twice a day. To stick blood sugars yesterday were 92 before breakfast, 169 before lunch, 199 before dinner, and 292 at bedtime. This morning fingerstick blood sugar is 85. Plan: Suggest reduce the patient's Levemir to 6 units twice a day. Continue the present sliding scale NovoLog. Hopefully we will be able to continue to taper his steroids. The patient's baseline steroid therapy is prednisone 10 mg once a day taken in the morning which is been given by his GI doctor to control his Crohn's disease. Subjective Subjective: Feels about the same Review of Systems Constitutional: Denies: chills, fever. Cardiovascular: Denies: chest pain. Respiratory: Denies: short of breath. Gastrointestinal: Denies: nausea, vomiting. Skin: Reports: rash (left leg wound). Objective Last 24 Hrs of Vital Signs/I&O Vital Signs Date Time Temp Pulse Resp B/P Pulse O2 O2 Flow FiO2 Ox Delivery Rate 07/03 0000 97.8 86 18 132/68 95 Room Air 07/02 2105 90 122/82 07/02 2056 94 Room Air 4.5L 07/02 1627 Room Air Room Air 07/02 161 98.2 82 20 132/60 93 Room Air 07/02 1600 93 Nasal Cannula 07/02 1112 96 Room Air 07/02 1047 77 132/70 07/02 1046 77 132/70 07/02 0821 97.3 77 18 132/70 97 Room Air Intake & Output 07/03 0800 07/03 0000 07/02 1600 Intake Total 280 870 480 Output Total 355 300 Balance -75 870 180 Intake, IV 160 170 Intake, Oral 120 700 480 Number 4 4 Bowel Movements Output, 5 Drainage Output, Urine 350 300 Patient 186 lb Weight Vital Signs Date Time Temp Pulse Resp B/P Pulse O2 O2 Flow FiO2 Ox Delivery Rate 07/03 0000 97.8 86 18 132/68 95 Room Air 07/02 2105 90 122/82 07/02 2056 94 Room Air 4.5L 07/02 1627 Room Air Room Air 07/02 1616 98.2 82 20 132/60 93 Room Air 07/02 1600 93 Nasal Cannula 07/02 1112 96 Room Air 07/02 1047 77 132/70 07/02 1046 77 132/70 07/02 0821 97.3 77 18 132/70 97 Room Air Intake & Output 07/03 0800 12 0000 07/02 1600 Intake Total 280 870 480 Output Total 355 300 Balance -75 870 180 Intake, IV 160 170 Intake, Oral 120 700 480 Number 4 4 Bowel Movements Output, 5 Drainage Output, Urine 350 300 Patient 186 lb Weight Physical Exam General Appearance: alert, awake Head: normal appearance Neck: normal inspection Cardiovascular: regular rate/rhythm Abdomen: normal bowel sounds, soft Current Medications: Current Medications Sig/Kailash Start time Last Medication Dose Route Stop Time Status Admin Acetaminophen 500 MG Q6P PRN 07/02 0815 AC 07/02 PO 1754 Acetaminophen 1,000 MG Q6P PRN 06/30 1200 DC 07/01 N/A 1 UNIT IV 1820 Albuterol Sulfate 3 ML BID 06/30 2200 AC 07/02 INH 1919 Albuterol Sulfate 3 ML Q4H PRN 06/30 1200 AC INH Aspirin 81 MG DAILY 07/01 1000 AC 07/02 PO 1048 Atorvastatin Calcium 40 MG 1700 06/30 1700 AC 07/02 PO 1612 Carvedilol 25 MG BID 06/30 2200 AC 07/02 PO 2105 Dexamethasone 4 MG BID 07/03 1000 AC PO Dexamethasone 4 MG Q8 07/01 2200 DC 07/02 PO 1400 Diphenoxylate HCl/ 2.5 MG TID PRN 06/30 1200 AC 07/01 Atropine PO 0603 Epoetin Ludwig 6,000 UNIT PER PROTOCL PRN 07/01 1430 AC IV Heparin Sodium 5,000 UNIT .STK-MED ONE 07/02 184 DC (Porcine) IV 07/02 1842 Heparin Sodium 2,400 UNIT ONCE ONE 07/02 1830 DC 07/02 (Porcine) IV 07/02 1831 1844 Heparin Sodium 25,000 UNIT Q24H 07/02 1000 AC 07/02 (Porcine) IV 1046 Sodium Chloride 500 ML Insulin Aspart 0 TIDAC/HS 06/30 2100 AC 07/02 SC 2104 Insulin Detemir 9 UNITS BID 07/02 2200 AC 07/02 SC 2104 Insulin Detemir 14 UNITS BID 06/30 2200 DC 07/02 SC 1045 Iron Sucrose 100 MG PER PROTOCL PRN 07/01 1430 AC Sodium Chloride 100 ML IV Morphine Sulfate 1 MG Q4P PRN 07/01 1500 AC 07/03 IV 0203 Multivitamins 1 TAB DAILY 07/01 1000 AC 07/02 PO 1046 Nystatin 5 ML 4 TIMES/DAY 07/01 1000 AC 07/02 PO 2105 Oxycodone/ 1 TAB Q6P PRN 06/30 1900 AC 07/03 Acetaminophen PO 0112 Patient Medication 1 ED .STK-MED ONE 07/02 1405 SD Teaching ED 07/02 1406 Sevelamer Carbonate 800 MG WITH MEALS 06/30 1200 AC 07/02 PO 1753 Tamsulosin HCl 0.4 MG DAILY 07/01 1000 AC 07/02 PO 1046 Vancomycin HCl 1 MG DAILY PRN 07/01 1300 AC Dextrose/Water 250 ML IV Vitamin A/Vitamin D 1 CHAITANYA BID 06/30 2200 AC 07/02 TOP 2105 Warfarin Sodium 7.5 MG COUMADIN 1700 ONE 07/02 1700 CAN PO 07/02 1701 Warfarin Sodium 7.5 MG COUMADIN 1700 ONE 07/02 1700 DC 07/02 PO 07/02 1701 1613 Zinc Oxide 1 CHAITANYA BID 06/30 2200 AC 07/02 TOP 2105 Findings Pertinent Lab/Avtar Results: Laboratory Tests 07/03 07/03 07/02 0535 0000 1715 Chemistry Sodium (137 - 145 mmol/L) 136 L Potassium (3.5 - 5.1 mmol/L) 4.7 Chloride (98 - 107 mmol/L) 105 Carbon Dioxide (22 - 30 mmol/L) 23 Anion Gap (5 - 16) 8 BUN (9 - 20 mg/dL) 59 H Creatinine (0.7 - 1.2 mg/dL) 2.7 H Estimated GFR (>60 ml/min) 23 L BUN/Creatinine Ratio (7 - 25 %) 21.9 Coagulation PT (9.4 - 12.5 SEC) 38.0 H INR (0.90 - 1.17) 3.67 H APTT (25 - 37 SEC) 93 H 50 H Hematology CBC w Diff Pending WBC Pending RBC Pending Hgb Pending Hct Pending MCV Pending MCH Pending RDW Pending Plt Count Pending MPV Pending Gran % Pending Lymphocytes % Pending Monocytes % Pending Eosinophils % Pending Basophils % Pending PUBS MCHC Pending Immunology Absolute Granulocytes Pending Absolute Lymphocytes Pending Absolute Monocytes Pending Absolute Eosinophils Pending Absolute Basophils Pending
[2016-07-03 08:45] LABS: GRANULOCYTE % 88.7 % (42.2-75.2)
[2016-07-03 08:56] LABS: ABSOLUTE BASOPHIL COUNT 0 /CUMM (0.0-0.2); ABSOLUTE EOSINOPHIL COUNT 0 /CUMM (0.0-0.7); ABSOLUTE GRANULOCYTE CT 13.4 /CUMM (1.4-6.5); ABSOLUTE LYMPH COUNT 0.6 /CUMM (1.2-3.4); ABSOLUTE MONOCYTE COUNT 1.1 /CUMM (0.10-0.60); BASOPHIL % 0.1 % (0.0-2.0); EOSINOPHIL % 0.2 % (0-5); GRANULOCYTE % 88.6 % (42.2-75.2); HEMATOCRIT 31.6 % (42-52); MEAN CORPUSCULAR HGB 29.1 PG (27.0-31.0); MEAN CORPUSCULAR HGB CONC 30.9 G/DL (33.0-37.0); MEAN CORPUSCULAR VOLUME 94.3 FL (80.0-94.0); MEAN PLATELET VOLUME 11.1 FL (7.4-10.4); PLATELET COUNT 130 /CUMM (130-400); RED BLOOD CELL CT 3.35 /CUMM (4.70-6.10)
--- NOTE | 2016-07-03 09:29 | NUR ---
PHYSICAL THERAPY. Pt CURRENTLY [facility]. PT WILL F/U APPROPRIATE.
[2016-07-03 09:32] LABS: WHITE BLOOD CELL COUNT 15.2 /CUMM (4.8-10.8)
--- NOTE | 2016-07-03 10:54 | PN- Infect Dx ---
Subjective Subjective: Afebrile on steroids. He complains of significant pressure from the wound VAC on his left leg. Objective Last 24 Hrs of Vital Signs/I&O Vital Signs Date Time Temp Pulse Resp B/P Pulse O2 O2 Flow FiO2 Ox Delivery Rate 07/03 0847 95 Room Air Room Air 07/03 0000 97.8 86 18 132/68 95 Room Air 07/02 2105 90 122/82 07/026 94 Room Air 4.5L 07/02 1627 Room Air Room Air 07/02 1616 98.2 82 20 132/60 93 Room Air 07/02 1600 93 Nasal Cannula 07/02 1112 96 Room Air Intake & Output 07/03 1600 07/03 0800 07/03 0000 Intake Total 280 870 Output Total 355 Balance -75 870 Intake, IV 160 170 Intake, Oral 120 700 Number 4 Bowel Movements Output, 5 Drainage Output, Urine 350 Patient 186 lb Weight Physical Exam Other Physical Findings: He is comfortable at present on dialysis Neck right IJ tunneled catheter with no inflammation at the site Lungs decreased breath sounds bilaterally Heart regular rhythm with no murmur Extremities left leg dressing intact Results Last 24 Hours of Lab Results: Laboratory Tests 07/03 07/03 0830 0535 Chemistry Sodium (137 - 145 mmol/L) 137 136 L Potassium (3.5 - 5.1 mmol/L) 4.2 4.7 Chloride (98 - 107 mmol/L) 103 105 Carbon Dioxide (22 - 30 mmol/L) 25 23 Anion Gap (5 - 16) 8 8 BUN (9 - 20 mg/dL) 58 H 59 H Creatinine (0.7 - 1.2 mg/dL) 2.7 H 2.7 H Estimated GFR (>60 ml/min) 23 L 23 L BUN/Creatinine Ratio (7 - 25 %) 21.5 21.9 Calcium (8.4 - 10.2 mg/dL) 7.7 L Phosphorus (2.5 - 4.5 mg/dL) 3.4 Magnesium (1.6 - 2.3 mg/dL) 1.7 Albumin (3.5 - 5.0 g/dL) 2.7 L Coagulation PT (9.4 - 12.5 SEC) 38.0 H INR (0.90 - 1.17) 3.67 H Hematology CBC w Diff NO MAN DIFF REQ NO MAN DIFF REQ WBC (4.8 - 10.8 /CUMM) 15.2 H 14.7 H RBC (4.70 - 6.10 /CUMM) 3.35 L 3.33 L Hgb (14.0 - 18.0 G/DL) 9.8 L 9.8 L Hct (42 - 52 %) 31.6 L 31.5 L MCV (80.0 - 94.0 FL) 94.3 H 94.7 H MCH (27.0 - 31.0 PG) 29.1 29.4 RDW (11.5 - 14.5 %) 19.0 H 19.0 H Plt Count (130 - 400 /CUMM) 130 106 L MPV (7.4 - 10.4 FL) 11.1 H 11.1 H Gran % (42.2 - 75.2 %) 88.6 H 88.7 H Lymphocytes % (20.5 - 51.1 %) 3.7 L 3.0 L Monocytes % (1.7 - 9.3 %) 7.4 8.2 Eosinophils % (0 - 5 %) 0.2 0 Basophils % (0.0 - 2.0 %) 0.1 0.1 PUBS MCHC (33.0 - 37.0 G/DL) 30.9 L 31.1 L Immunology Absolute Granulocytes (1.4 - 6.5 /CUMM) 13.4 H 13.0 H Absolute Lymphocytes (1.2 - 3.4 /CUMM) 0.6 L 0.4 L Absolute Monocytes (0.10 - 0.60 /CUMM) 1.1 H 1.2 H Absolute Eosinophils (0.0 - 0.7 /CUMM) 0 0 Absolute Basophils (0.0 - 0.2 /CUMM) 0 0 07/03 07/02 0000 1715 Coagulation APTT (25 - 37 SEC) 93 H 50 H Last 24 Hours of [place] Results: OR culture June 30 positive for diphtheroids and coag-negative Staph Assessment/Plan Impression: Stable with temperatures remaining normal (on tapering steroids for vocal cord paralysis) and on Vancomycin, now Day 2 of treatment for a soft tissue infection /nonhealing wound in the left calf status post excisional debridement through the subcutaneous and muscular tissue 3 days ago with "seropurulent" drainage noted and with OR culture growing coag-negative Staph and diphtheroids. His white blood cell count is further elevated today, most likely secondary to steroids. Suggestion: 1. Continue Vancomycin after each dialysis per protocol to plan on a 7-10 day course
--- NOTE | 2016-07-03 11:13 | PN- Nephrology ---
Assessment/Plan Assessment: 1. ESRD likely secondary to diabetic nephropathy 2. Diabetes mellitus with peripheral vascular disease status post right TMA, status post debridement left ankle ulcer 3. Antiphospholipid antibody syndrome status post DVT Suggestion: 1. Hemodialysis today in progress with 3 L ultrafiltration as tolerated over 3.25 hours; to check URR today; next hemodialysis for Thursday 07/05 2. Antibiotic therapy per ID 3. Await outpatient dialysis slot 4. No PICC lines 5. Vascular access surgery once infection no longer an issue Subjective Subjective: Still has some residual pain in his left foot/ankle which she attributes to the wound VAC. Otherwise no complaints. Seen with hemodialysis. Objective Vital Signs and I&Os Vital Signs Date Time Temp Pulse Resp B/P Pulse O2 O2 Flow FiO2 Ox Delivery Rate 07/03 0847 95 Room Air Room Air 07/03 0000 97.8 86 18 132/68 95 Room Air 07/02 2105 90 122/82 07/026 94 Room Air 4.5L 07/02 1627 Room Air Room Air 07/02 1616 98.2 82 20 132/60 93 Room Air 07/02 1600 93 Nasal Cannula 07/02 1112 96 Room Air Intake & Output 07/03 1600 07/03 0400 07/02 1600 07/02 0400 07/01 1600 07/01 0400 Intake Total 280 870 663 293 5502.2 311 Output Total 355 300 800 850 Balance -75 870 380 200 791.2 -539 Intake, IV 160 170 691.2 191 Intake, Oral 120 700 680 200 900 120 Number 4 7 3 2 Bowel Movements Output, 5 Drainage Output, Urine 350 300 800 850 Patient 186 lb 176 lb Weight Physical Exam: General: Well-developed white male in NAD Skin: No rash or jaundice HEENT: Conjunctivae pink, sclerae anicteric, mucous membranes moist Neck: Without masses or thyromegaly, no supraclavicular or cervical adenopathy; there is a right IJ tunneled dialysis catheter in place Chest: Clear to P&A Heart: Regular rate and rhythm without S3 or rub Abdomen: Soft and nontender without palpable masses or organomegaly Extremities: Lower extremity dressing intact, wound VAC, +edema Neuro: No focal findings, no asterixis or myoclonus Results Pertinent Lab Results: Laboratory Tests 07/03 07/03 0830 0535 Chemistry Sodium (137 - 145 mmol/L) 137 136 L Potassium (3.5 - 5.1 mmol/L) 4.2 4.7 Chloride (98 - 107 mmol/L) 103 105 Carbon Dioxide (22 - 30 mmol/L) 25 23 Anion Gap (5 - 16) 8 8 BUN (9 - 20 mg/dL) 58 H 59 H Creatinine (0.7 - 1.2 mg/dL) 2.7 H 2.7 H Estimated GFR (>60 ml/min) 23 L 23 L BUN/Creatinine Ratio (7 - 25 %) 21.5 21.9 Calcium (8.4 - 10.2 mg/dL) 7.7 L Phosphorus (2.5 - 4.5 mg/dL) 3.4 Magnesium (1.6 - 2.3 mg/dL) 1.7 Albumin (3.5 - 5.0 g/dL) 2.7 L Coagulation PT (9.4 - 12.5 SEC) 38.0 H INR (0.90 - 1.17) 3.67 H Hematology CBC w Diff NO MAN DIFF REQ NO MAN DIFF REQ WBC (4.8 - 10.8 /CUMM) 15.2 H 14.7 H RBC (4.70 - 6.10 /CUMM) 3.35 L 3.33 L Hgb (14.0 - 18.0 G/DL) 9.8 L 9.8 L Hct (42 - 52 %) 31.6 L 31.5 L MCV (80.0 - 94.0 FL) 94.3 H 94.7 H MCH (27.0 - 31.0 PG) 29.1 29.4 RDW (11.5 - 14.5 %) 19.0 H 19.0 H Plt Count (130 - 400 /CUMM) 130 106 L MPV (7.4 - 10.4 FL) 11.1 H 11.1 H Gran % (42.2 - 75.2 %) 88.6 H 88.7 H Lymphocytes % (20.5 - 51.1 %) 3.7 L 3.0 L Monocytes % (1.7 - 9.3 %) 7.4 8.2 Eosinophils % (0 - 5 %) 0.2 0 Basophils % (0.0 - 2.0 %) 0.1 0.1 PUBS MCHC (33.0 - 37.0 G/DL) 30.9 L 31.1 L Immunology Absolute Granulocytes (1.4 - 6.5 /CUMM) 13.4 H 13.0 H Absolute Lymphocytes (1.2 - 3.4 /CUMM) 0.6 L 0.4 L Absolute Monocytes (0.10 - 0.60 /CUMM) 1.1 H 1.2 H Absolute Eosinophils (0.0 - 0.7 /CUMM) 0 0 Absolute Basophils (0.0 - 0.2 /CUMM) 0 0 07/03 07/02 07/02 07/01 0000 1715 0540 1618 Coagulation PT (9.4 - 12.5 SEC) 16.7 H Cancelled INR (0.90 - 1.17) 1.60 H Cancelled APTT (25 - 37 SEC) 93 H 50 H 07/01 06/30 1340 1840 Chemistry Sodium (137 - 145 mmol/L) 137 Potassium (3.5 - 5.1 mmol/L) 3.8 Chloride (98 - 107 mmol/L) 103 Carbon Dioxide (22 - 30 mmol/L) 25 Anion Gap (5 - 16) 9 BUN (9 - 20 mg/dL) 77 H Creatinine (0.7 - 1.2 mg/dL) 3.3 H Estimated GFR (>60 ml/min) 18 L Glucose (65 - 99 mg/dL) 140 H Calcium (8.4 - 10.2 mg/dL) 7.6 L Phosphorus (2.5 - 4.5 mg/dL) 4.5 Magnesium (1.6 - 2.3 mg/dL) 1.8 Total Bilirubin (0.2 - 1.3 mg/dL) 0.3 AST (17 - 59 U/L) 16 L ALT (21 - 72 U/L) 29 Albumin (3.5 - 5.0 g/dL) 2.7 L Coagulation PT (9.4 - 12.5 SEC) 25.1 H INR (0.90 - 1.17) 2.41 H APTT (25 - 37 SEC) > 120 *H 64 H Hematology CBC w Diff NO MAN DIFF REQ WBC (4.8 - 10.8 /CUMM) 12.6 H RBC (4.70 - 6.10 /CUMM) 3.09 L Hgb (14.0 - 18.0 G/DL) 9.0 L Hct (42 - 52 %) 29.4 L MCV (80.0 - 94.0 FL) 95.2 H MCH (27.0 - 31.0 PG) 29.1 RDW (11.5 - 14.5 %) 18.3 H Plt Count (130 - 400 /CUMM) 133 MPV (7.4 - 10.4 FL) 10.9 H Gran % (42.2 - 75.2 %) 92.3 H Lymphocytes % (20.5 - 51.1 %) 2.1 L Monocytes % (1.7 - 9.3 %) 5.5 Eosinophils % (0 - 5 %) 0.1 Basophils % (0.0 - 2.0 %) 0 L PUBS MCHC (33.0 - 37.0 G/DL) 30.6 L Immunology Absolute Granulocytes (1.4 - 6.5 /CUMM) 11.6 H Absolute Lymphocytes (1.2 - 3.4 /CUMM) 0.3 L Absolute Monocytes (0.10 - 0.60 /CUMM) 0.7 H Absolute Eosinophils (0.0 - 0.7 /CUMM) 0 Absolute Basophils (0.0 - 0.2 /CUMM) 0
--- NOTE | 2016-07-03 13:30 | NUR ---
PATIENT OFF FLOOR FOR HEMODIALYSIS FROM 0730 UNTIL 1200. 3L TAKEN OFF, VSS UPON ARRIVAL TO FLOOR.
--- NOTE | 2016-07-03 15:35 | NUR ---
Referral received on 06/28/16. Patient is a 75 year old man, admitted to the hospital on 06/26/16 and is now in need of chronic hemodialysis. Appropriate clinical information provided to [facility] for outpatient slot assisgnment. Case discussed with case management; patient and in agreement with STR ; bed search ongoing. Will be available to suuport case managements efforts for safe, appropriate discharge planning.
--- NOTE | 2016-07-03 15:54 | Cons- Wound Care ---
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 He is previously undergone debridement and treated for what was thought to be primarily venous stasis. He was admitted with stridor and again found to have extensive necrosis of the left lower extremity ulceration. He underwent debridement of necrotic tissue and a wound VAC was placed. Chest continues oxygen measurements were performed which show severe to moderate localized tissue ischemia with augmentation following inhalation FiO2 100% 1 MINDA. Consult is requested for evaluation for candidacy of hyperbaric oxygen therapy Allergies/Medications Allergies: Coded Allergies: Sulfa (Sulfonamide Antibiotics) (Mild, HIVES 06/15/16) Home Med List: Amlodipine Besylate 10 MG TABLET 1 TAB PO DAILY BP (Reported) Calcitriol (Rocaltrol) 0.25 MCG CAPSULE 1 CAP PO DAILY KIDNEYS (Reported) Calcium Carbonate/Vitamin D3 (Os-Vishal 500+D3 Caplet) 500 MG-600 TABLET 1 TAB PO TID SUPPLEMENT (Reported) Carvedilol 25 MG TABLET 1 TAB PO BID HEART (Reported) Citric Acid/Sodium Citrate (Cytra-2 Oral Solution) 473 ML SOLUTION 15 ML PO BID KIDNEYS (Reported) Cyanocobalamin (Vitamin B-12) 1,000 MCG TABLET 1 TAB PO DAILY SUPPLEMENT ( Reported) Ferrous Sulfate 325 MG (65 MG IRON) TABLET 1 TAB PO TID SUPPLEMENT (Reported) Furosemide 80 MG TABLET 1 TAB PO BID LEG SWELLING (Reported) Hydralazine HCl 50 MG TABLET 1 TAB PO BID HEART (Reported) Insulin Aspart (Novolog) 100 UNIT/ML VIAL DM (Reported) Insulin Detemir (Levemir) 100 UNIT/ML VIAL 13 UNITS SC DAILY QAM DM Multivit-Min/FA/Lycopen/Lutein (Centrum Silver Tablet) 1 EACH TABLET 1 TAB PO DAILY SUPPLEMENT (Reported) Oxycodone HCl/Acetaminophen (Percocet 5-325 MG Tablet) 5 MG-325 MG TABLET 1 TAB PO BID PRN PAIN Prednisone 10 MG TABLET 1 TAB PO DAILY KIDNEYS (Reported) Sevelamer Carbonate (Renvela) 800 MG TABLET 1 TAB PO TIDWM KIDNEYS (Reported) Sodium Bicarbonate 325 MG TABLET 1 TAB PO BID KIDNEYS (Reported) Tramadol HCl 50 MG TABLET 1 TAB PO BIDP PRN PAIN (Reported) Vitamin B Complex (B Complex) 1 EACH TABLET 1 TAB PO DAILY SUPPLEMENT ( Reported) Warfarin Sodium (Coumadin) 5 MG TABLET 1 TAB PO DAILY BLOOD THINNER (Reported ) DOSE ACCORDING TO INR Review of Systems Review of Systems: Patient reportedly has no large vessel vascular disease he denies history of seizures obstructive lung disease or pneumothorax Past History Travel History Traveled to [place] past 21 day No Medical History Blood Transfusion Hx: Yes Neurological: NONE EENT: NONE Cardiovascular: PVD, DVT Respiratory: pneumonia Gastrointestinal: Crohn's disease Hepatic: NONE Renal: nephrolithiasis, CKD Musculoskeletal: VASCULAR OCCLUSION RIGHT LEG RIGHT PATELLA FRACTURE WITH orif NON HEALING WOUNDS R. TOE AMPUTATIONS Psychiatric: NONE Endocrine: diabetes Blood Disorders: anemia, coagulopathy, DVT (RUE and RLE), antiphosphlipid syndrome Cancer(s): NONE RESIDENT ASSOCIATE/Reproductive: NONE Surgical History Surgical History: colon resection, knee replacement (left), LEFT HIP ORIF status post right leg bypass status post right patellar ORIF status post right TMA status post lithotripsy and stent placements Family History Relations & Conditions If Any: FATHER Antiphospholipid syndrome FH: diabetes mellitus MOTHER FH: Crohn's disease Psychosocial History Where Do You Live? Home Who Do You Live With? spouse Services at Home: None Primary Language: Martiniquais Smoking Status: Former Smoker ETOH Use: denies use Illicit Drug Use: denies illicit drug use Functional Ability ADLs Independent: dressing, eating, toileting, bathing. Ambulation: walker IADLs Needs Assist: shopping, housework, finances, food prep, telephone, transportation, medication admin. ECHO Results (as available) Date of last Echo 12/11/15 EF% 65 Exam & Diagnostic Data Vital Signs and I&O Vital Signs Result Date Time O2 Delivery Room Air 07/03 1356 O2 Flow Rate Room Air 07/03 1356 B/P 132/68 07/03 1223 Pulse 86 07/03 1223 Pulse Ox 95 07/03 0847 Temp 97.8 07/03 0000 Resp 18 12/ 0000 Intake & Output / 0000 12/ 1600 12 0800 Intake Total 870 480 200 Output Total 300 Balance 870 180 200 Intake, IV 170 Intake, Oral 700 480 200 Number 4 4 3 Bowel Movements Output, Urine 300 Patient 176 lb Weight Exam of the left lower extremity shows there to be a 21 x 8 cm ulcer with exposed tendon and residual areas of necrotic eschar or are areas slough. It is no significant periwound erythema undermining or exposed bone. Distal pulses are difficult to palpate. He does not have significant sensory neuropathy. Plain radiograph is negative for osteomyelitis though his sedimentation rate is greater than 130 Assessment/Plan Impression/Plan: 75-year-old gentleman with multiple medical problems has had a chronic nonhealing ulcer of the left lower extremity which has recurrent necrosis. Differential diagnosis of his wounds include pyoderma gangrenosum associated with inflammatory bowel disease. Coumadin necrosis. And diabetic ulcer in view of marked dermal ischemia. Because of the significant localized tissue ischemia likely as a result of small vessel disease secondary to diabetes hyperbaric oxygen therapy offers the prospect of improved wound healing, this would need to be coordinated with his dialysis and arrangements made with his short-term rehabilitation facility. Because of residual necrosis and dry wound bed recommendation is made for decrease of VAC pressure to 75. We'll discuss treatment plans and his disposition with Dr. surgery and case management Consult Acknowledgment - Thank you for your consult request.
[2016-07-03 16:02] VITALS: BP 140/66
[2016-07-03 19:02] LABS: PTT 36 SEC (25-37)
[2016-07-03 23:31] VITALS: BP 140/66
[2016-07-04 06:28] LABS: ABSOLUTE BASOPHIL COUNT 0 /CUMM (0.0-0.2); ABSOLUTE EOSINOPHIL COUNT 0 /CUMM (0.0-0.7); ABSOLUTE GRANULOCYTE CT 12.1 /CUMM (1.4-6.5); ABSOLUTE LYMPH COUNT 0.3 /CUMM (1.2-3.4); ABSOLUTE MONOCYTE COUNT 0.6 /CUMM (0.10-0.60); BASOPHIL % 0 % (0.0-2.0); EOSINOPHIL % 0 % (0-5); GRANULOCYTE % 93.2 % (42.2-75.2); MEAN CORPUSCULAR HGB 29.4 PG (27.0-31.0); MEAN CORPUSCULAR HGB CONC 30.8 G/DL (33.0-37.0); MEAN CORPUSCULAR VOLUME 95.4 FL (80.0-94.0); PLATELET COUNT 119 /CUMM (130-400); RBC DISTRIBUTION WIDTH 19.5 % (11.5-14.5); RED BLOOD CELL CT 3.25 /CUMM (4.70-6.10)
[2016-07-04 06:30] LABS: PT 37.1 SEC (9.4-12.5)
--- NOTE | 2016-07-04 07:06 | PN- Diabetes ---
Assessment/Plan Assessment: Patient has type 2 diabetes which is being aggravated by high-dose steroid therapy. He has no stridor at present. His blood sugar this morning was 123. Steroids have been tapered further to dexamethasone by mouth 4 mg twice a day. Tomorrow the dose be reduced to dexamethasone 2 mg once a day. Fingerstick blood sugars yesterday were 85 before breakfast, 150 before lunch, 238 before dinner, and 218 at bedtime. The patient is on Levemir 6 units twice a day as well as sliding scale NovoLog before meals with a separate sliding- scale at bedtime. Plan: Suggest continue the present insulin regimen. Patient's steroids will be reduced to dexamethasone 2 mg once a day starting tomorrow. Thereafter I would recommend placing him on prednisone 10 mg once a day which he was taking prior to admission for control of his Crohn's disease. Subjective Subjective: Still has pain in left leg Review of Systems Constitutional: Denies: chills, fever. Cardiovascular: Denies: chest pain. Respiratory: Reports: cough. Denies: short of breath. Gastrointestinal: Denies: abdominal pain. Skin: Reports: rash (wound left leg). Objective Last 24 Hrs of Vital Signs/I&O Vital Signs Date Time Temp Pulse Resp B/P Pulse O2 O2 Flow FiO2 Ox Delivery Rate 07/03 2331 97.8 88 18 140/66 98 Room Air 07/03 2140 81 140/07/03 95 Room Air 07/03 1602 97.2 82 20 140/66 95 Room Air 07/03 1600 Room Air 07/03 1356 Room Air Room Air 07/03 1223 86 132/68 07/03 1223 86 132/68 07/03 0847 95 Room Air Room Air Intake & Output 07/04 0800 07/04 0000 07/03 1600 Intake Total 100 400 Output Total 200 3500 Balance -100 -3100 Intake, Oral 100 400 Number 1 1 Bowel Movements Output, 3000 Dialysate Output, Stool 200 Output, Urine 200 300 Patient 172 lb Weight Vital Signs Date Time Temp Pulse Resp B/P Pulse O2 O2 Flow FiO2 Ox Delivery Rate 07/03 2331 97.8 88 18 140/66 98 Room Air 07/03 2140 81 140/66 07/03 2015 95 Room Air 07/03 1602 97.2 82 20 140/66 95 Room Air 07/03 1600 Room Air 07/03 1356 Room Air Room Air 07/03 1223 86 132/68 07/03 1223 86 132/68 07/03 0847 95 Room Air Room Air Intake & Output 07/04 0800 07/04 0000 07/03 1600 Intake Total 100 400 Output Total 200 3500 Balance -100 -3100 Intake, Oral 100 400 Number 1 1 Bowel Movements Output, 3000 Dialysate Output, Stool 200 Output, Urine 200 300 Patient 172 lb Weight Physical Exam General Appearance: alert, awake, anxious Head: normal appearance Neck: normal inspection Respiratory: normal breath sounds Cardiovascular: regular rate/rhythm Abdomen: normal bowel sounds, soft Extremities: left leg wrapped with wound VAC Current Medications: Current Medications Sig/Kailash Start time Last Medication Dose Route Stop Time Status Admin Acetaminophen 650 MG .STK-MED ONE 07/03 1003 DC PO 07/03 1004 Acetaminophen 500 MG Q6P PRN 07/02 0815 AC 07/03 PO 1026 Albuterol Sulfate 3 ML BID 06/30 2200 AC 07/03 INH 2014 Albuterol Sulfate 3 ML Q4H PRN 06/30 1200 AC INH Aspirin 81 MG DAILY 07/01 1000 AC 07/03 PO 1222 Atorvastatin Calcium 40 MG 1700 06/30 1700 AC 07/03 PO 1825 Carvedilol 25 MG BID 06/30 2200 AC 07/03 PO 2140 Dexamethasone 2 MG ONE ONE 07/05 1000 AC PO 07/05 1001 Dexamethasone 4 MG BID 07/03 1000 AC 07/03 PO 07/04 1300 2141 Diphenoxylate HCl/ 2.5 MG TID PRN 06/30 1200 AC 07/01 Atropine PO 0603 Epoetin Ludwig 6,000 UNIT PER PROTOCL PRN 07/01 1430 AC IV Heparin Sodium 25,000 UNIT Q24H 07/02 1000 DC 07/02 (Porcine) IV 1046 Sodium Chloride 500 ML Insulin Aspart 0 TIDAC/HS 06/30 2100 AC 07/03 SC 1826 Insulin Detemir 6 UNITS BID 07/03 2200 AC 07/03 SC 2140 Insulin Detemir 9 UNITS BID 07/02 2200 DC 07/02 SC 2104 Iron Sucrose 100 MG PER PROTOCL PRN 07/01 1430 AC 07/03 Sodium Chloride 100 ML IV 1221 Morphine Sulfate 1 MG Q4P PRN 07/01 1500 AC 07/03 IV 0203 Multivitamins 1 TAB DAILY 07/01 1000 AC 07/03 PO 1221 Nystatin 5 ML 4 TIMES/DAY 07/01 1000 AC 07/03 PO 2141 Oxycodone/ 1 TAB Q6P PRN 06/30 1900 AC 07/03 Acetaminophen PO 1910 Sevelamer Carbonate 800 MG WITH MEALS 06/30 1200 AC 07/03 PO 1826 Tamsulosin HCl 0.4 MG DAILY 07/01 1000 AC 07/03 PO 1223 Vancomycin HCl 1,000 MG ONCE ONE 07/03 2015 DC Sodium Chloride 250 ML IV 07/03 2114 Vancomycin HCl 1,000 MG ONCE ONE 07/03 2000 DC Dextrose/Water 250 ML IV 07/03 2059 Vancomycin HCl 1 MG DAILY PRN 07/01 1300 AC Dextrose/Water 250 ML IV Vitamin A/Vitamin D 1 CHAITANYA BID 06/30 220 AC 07/03 TOP 2142 Warfarin Sodium 4 MG ONCE ONE 07/03 1700 CAN PO 07/03 1701 Warfarin Sodium 2 MG ONCE ONE 07/03 1700 CAN PO 07/03 1701 Zinc Oxide 1 CHAITANYA BID 06/30 2200 AC 07/03 TOP 2141 Findings Pertinent Lab/[place] Results: Laboratory Tests 07/04 07/03 07/03 0530 1800 1130 Chemistry Sodium (137 - 145 mmol/L) 136 L Potassium (3.5 - 5.1 mmol/L) 4.8 Chloride (98 - 107 mmol/L) 105 Carbon Dioxide (22 - 30 mmol/L) 25 Anion Gap (5 - 16) 5 BUN (9 - 20 mg/dL) 38 H 17 Creatinine (0.7 - 1.2 mg/dL) 2.0 H Estimated GFR (>60 ml/min) 33 L BUN/Creatinine Ratio (7 - 25 %) 19.0 Coagulation PT (9.4 - 12.5 SEC) 37.1 H INR (0.90 - 1.17) 3.58 H APTT (25 - 37 SEC) 36 Hematology CBC w Diff NO MAN DIFF REQ WBC (4.8 - 10.8 /CUMM) 13.0 H RBC (4.70 - 6.10 /CUMM) 3.25 L Hgb (14.0 - 18.0 G/DL) 9.6 L Hct (42 - 52 %) 31.0 L MCV (80.0 - 94.0 FL) 95.4 H MCH (27.0 - 31.0 PG) 29.4 RDW (11.5 - 14.5 %) 19.5 H Plt Count (130 - 400 /CUMM) 119 L MPV (7.4 - 10.4 FL) 11.0 H Gran % (42.2 - 75.2 %) 93.2 H Lymphocytes % (20.5 - 51.1 %) 2.1 L Monocytes % (1.7 - 9.3 %) 4.7 Eosinophils % (0 - 5 %) 0 Basophils % (0.0 - 2.0 %) 0 L Absolute Granulocytes (1.4 - 6.5 /CUMM) 12.1 H Absolute Lymphocytes (1.2 - 3.4 /CUMM) 0.3 L Absolute Monocytes (0.10 - 0.60 /CUMM) 0.6 Absolute Eosinophils (0.0 - 0.7 /CUMM) 0 Absolute Basophils (0.0 - 0.2 /CUMM) 0 PUBS MCHC (33.0 - 37.0 G/DL) 30.8 L Toxicology Random Vancomycin (ug/ml) 7.5 12/07 0830 Chemistry Sodium (137 - 145 mmol/L) 137 Potassium (3.5 - 5.1 mmol/L) 4.2 Chloride (98 - 107 mmol/L) 103 Carbon Dioxide (22 - 30 mmol/L) 25 Anion Gap (5 - 16) 8 BUN (9 - 20 mg/dL) 58 H Creatinine (0.7 - 1.2 mg/dL) 2.7 H Estimated GFR (>60 ml/min) 23 L BUN/Creatinine Ratio (7 - 25 %) 21.5 Calcium (8.4 - 10.2 mg/dL) 7.7 L Phosphorus (2.5 - 4.5 mg/dL) 3.4 Magnesium (1.6 - 2.3 mg/dL) 1.7 Albumin (3.5 - 5.0 g/dL) 2.7 L Hematology CBC w Diff NO MAN DIFF REQ WBC (4.8 - 10.8 /CUMM) 15.2 H RBC (4.70 - 6.10 /CUMM) 3.35 L Hgb (14.0 - 18.0 G/DL) 9.8 L Hct (42 - 52 %) 31.6 L MCV (80.0 - 94.0 FL) 94.3 H MCH (27.0 - 31.0 PG) 29.1 RDW (11.5 - 14.5 %) 19.0 H Plt Count (130 - 400 /CUMM) 130 MPV (7.4 - 10.4 FL) 11.1 H Gran % (42.2 - 75.2 %) 88.6 H Lymphocytes % (20.5 - 51.1 %) 3.7 L Monocytes % (1.7 - 9.3 %) 7.4 Eosinophils % (0 - 5 %) 0.2 Basophils % (0.0 - 2.0 %) 0.1 PUBS MCHC (33.0 - 37.0 G/DL) 30.9 L Immunology Absolute Granulocytes (1.4 - 6.5 /CUMM) 13.4 H Absolute Lymphocytes (1.2 - 3.4 /CUMM) 0.6 L Absolute Monocytes (0.10 - 0.60 /CUMM) 1.1 H Absolute Eosinophils (0.0 - 0.7 /CUMM) 0 Absolute Basophils (0.0 - 0.2 /CUMM) 0
--- NOTE | 2016-07-04 07:08 | PN- Housestaff ---
VINCENZO HEATH,GE 07/04/16 0708: Subjective Follow-up For: Chronic nonhealing ulcer of left calf Supraglottic edema ESRD T2DM Tele-Events Since Last Visit: Sinus rhythm, HR 69-94. No acute telemetry events reported overnight. Subjective: No acute events overnight. Patient seen and examined this morning. He continues to complain of pain at left leg ulcer site. Review of Systems Constitutional: Denies: chills, fever. Cardiovascular: Denies: chest pain. Respiratory: Denies: cough, short of breath. Gastrointestinal: Denies: abdominal pain, constipation, diarrhea, nausea, vomiting. Objective Last 24 Hrs of Vital Signs/I&O Vital Signs Date Time Temp Pulse Resp B/P Pulse O2 O2 Flow FiO2 Ox Delivery Rate 07/04 1112 Room Air Room Air 07/04 1106 95 Room Air 07/04 1101 Room Air Room Air 07/04 1054 75 140/66 07/04 1054 75 140/66 07/04 0811 98.4 75 17 95 Room Air 07/03 2331 97.8 88 18 140/66 98 Room Air 07/03 2140 81 140/66 07/03 2015 95 Room Air 07/03 1602 97.2 82 20 140/66 95 Room Air 07/03 1600 Room Air Intake & Output 07/04 1600 07/04 0800 07/04 0000 Intake Total 100 100 Output Total 300 200 Balance -200 -100 Intake, Oral 100 100 Number 1 Bowel Movements Output, Urine 300 200 Patient 78.018 kg Weight Physical Exam General Appearance: Alert, Oriented X3, No Acute Distress Skin: Scattered Petechiae and Purpura on Trunk and Extremities HEENT: Mucous Membr. moist/pink Neck: Mj Cath in Place at [facility] with No Inflammation at the Site Cardiovascular: Regular Rate, Normal S1, Normal S2 Lungs: Clear to Auscultation, Normal Air Movement Abdomen: Soft, No Tenderness, Positive Bowel Sounds Extremities: No Clubbing, No Cyanosis, No Edema, Left Leg Dressing In Place Current Medications: Current Medications Sig/Kailash Start time Last Medication Dose Route Stop Time Status Admin Acetaminophen 500 MG Q6P PRN 07/02 0815 AC 07/03 PO 1026 Albuterol Sulfate 3 ML BID 06/30 2200 AC 07/04 INH 1103 Albuterol Sulfate 3 ML Q4H PRN 06/30 1200 AC INH Aspirin 81 MG DAILY 07/01 1000 AC 07/04 PO 1054 Atorvastatin Calcium 40 MG 1700 06/30 1700 AC 07/03 PO 1825 Carvedilol 25 MG BID 06/30 2200 AC 07/04 PO 1054 Dexamethasone 2 MG ONE ONE 07/05 1000 CAN PO 07/05 1001 Dexamethasone 4 MG BID 07/03 1000 DC 07/04 PO 07/04 1300 1054 Diphenoxylate HCl/ 2.5 MG TID PRN 06/30 1200 AC 07/04 Atropine PO 1117 Epoetin Ludwig 6,000 UNIT PER PROTOCL PRN 07/01 1430 AC IV Insulin Aspart 0 TIDAC/HS 06/30 2100 AC 07/04 SC 0823 Insulin Detemir 6 UNITS BID 07/03 2200 AC 07/04 SC 1030 Iron Sucrose 100 MG PER PROTOCL PRN 07/01 1430 AC 07/03 Sodium Chloride 100 ML IV 1221 Morphine Sulfate 1 MG Q4P PRN 07/01 1500 AC 07/03 IV 0203 Multivitamins 1 TAB DAILY 07/01 1000 AC 07/04 PO 1054 Nystatin 5 ML 4 TIMES/DAY 07/01 1000 AC 07/04 PO 1054 Oxycodone/ 1 TAB Q6P PRN 06/30 1900 AC 07/04 Acetaminophen PO 0823 Prednisone 10 MG DAILY 07/05 1000 UNVr PO Sevelamer Carbonate 800 MG WITH MEALS 06/30 1200 AC 07/04 PO 0823 Tamsulosin HCl 0.4 MG DAILY 07/01 1000 AC 07/04 PO 1054 Vancomycin HCl 1,000 MG ONCE ONE 07/04 1000 DC 07/04 Sodium Chloride 250 ML IV 07/04 1059 1055 Vancomycin HCl 1,000 MG ONCE ONE 07/03 2015 DC Sodium Chloride 250 ML IV 07/03 2114 Vancomycin HCl 1,000 MG ONCE ONE 07/03 2000 DC Dextrose/Water 250 ML IV 07/03 2059 Vancomycin HCl 1 MG DAILY PRN 07/01 1300 AC 07/04 Dextrose/Water 250 ML IV 1116 Vitamin A/Vitamin D 1 CHAITANYA BID 06/30 2200 AC 07/04 TOP 1054 Warfarin Sodium 2 MG ONCE ONE 07/03 1700 CAN PO 07/03 1701 Zinc Oxide 1 CHAITANYA BID 06/30 2200 AC 07/04 TOP 1055 Last 24 Hrs of Lab/Avtar Results Last 24 Hrs of Labs/Mics: Laboratory Tests 07/04/16 0530: Anion Gap 5, Estimated GFR 33 L, BUN/Creatinine Ratio 19.0, PT 37.1 H, INR 3.58 H, CBC w Diff NO MAN DIFF REQ, RBC 3.25 L, MCV 95.4 H, MCH 29.4, RDW 19.5 H, MPV 11.0 H, Gran % 93.2 H, Lymphocytes % 2.1 L, Monocytes % 4.7, Eosinophils % 0, Basophils % 0 L, Absolute Granulocytes 12.1 H, Absolute Lymphocytes 0.3 L, Absolute Monocytes 0.6, Absolute Eosinophils 0, Absolute Basophils 0, PUBS MCHC 30.8 L 07/03/16 1800: APTT 36, Random Vancomycin 7.5 OR Cultures (06/30): Diphtheroids and coag-negative Staph sensitive to vancomycin Assessment/Plan Assessment: 75 y/o M with PMHx of antiphospholipid antibody syndrome, diabetes and CKD who presented with SOB, hoarseness and stridor, found to be uremic with initiation of HD, s/p debridement of chronic left leg ulcer, on IV vancomycin for soft tissue infection, currently awaiting outpatient dialysis slot. #Chronic left lower extremity ulcer: Has chronic nonhealing ulcers of left leg for which he sees Dr. Pretty as outpatient. Likely secondary to T2DM and PVD, s/p R TMA. S/p excisional debridement through the subcutaneous and muscular tissue with reported seropurulent drainage this admission (06/30) and OR cultures growing dipthteroids and coag-negative Staph. Although these are not typically pathogenic organisms, currently on IV vancomycin for possible soft tissue infection. It appears that patient's scheduled dose was not administered yesterday. However, his random vancomycin level of 7.5 yesterday suggests that he received his dose on 07/01. Wound appears improved today, with wound VAC placement. * ID following. Appreciate their recs. * Continue vancomycin per dialysis protocol to plan for a 7-10 day course. * Vancomycin dose which was supposed to be given yesterday will be administered today. #Supraglottic edema: Presented with hoarseness, stridor and SOB. Was hospitalized at [place] in April 2016 for same issue. During current admission, flexible laryngoscopy was significant for bilateral vocal cord paralysis, however both neck XR and CT were unremarkable and showed no discrete anatomic abnormality. Symptoms have resolved on steroids, currently being tapered. * Dexamethasone further tapered down to 4 mg PO QD today, with plans to switch to home prednisone 10 mg PO QD tomorrow. #Antiphospholipid antibody syndrome: S/p post right upper extremity DVT. On life -long anti-coagulation with warfarin, takes 5 mg PO QD. Warfarin was initially held in anticipation for debridement of left leg ulcer. Warfarin held yesterday given supratherapeutic INR of 3.67, with slight improvement to 3.58 today. * Will hold today's dose of warfarin given supratherapeutic INR. * Continue to check INR daily and dose warfarin accordingly to keep INR between 2-3. #ESRD: Presented with uremic encephalopathy and metabolic acidosis. Cr was 5 on admission, with gradual increase from 2-3 within the past year, likely secondary to diabetic nephropathy, although other forms of chronic glomerular disease cannot be ruled out. Mj cath was placed and urgent hemodialysis was initiated ( 06/26) with improvement of mental status. Patient is currently awaiting outpatient dialysis slot. * Nephrology following. Appreciate their recs. * Continue HD MWF. * No PICC lines should be inserted per Nephrology, as patient will need vein site for placement of graft. * Continue sevelamer 800 mg PO TIDAC. * Continue daily Nephrocaps. #T2DM: Uncontrolled blood sugars this admission, secondary to steroids. * Endocrinology following. Appreciate their recs. * Continue Levemir 6U SQ BID. * Continue NovoLog SSI TIDAC: 80-150 give 4 units, 151-200 give 6 units, 201-250 give 8 units, 251-300 give 10 units, 301-350 give 12 units and 351-400 give 14 units and NovoLog SSI QHS: 251-300 give 3 units, 301-350 give 4 units, 351-400 give 5 units. #HTN: Takes amlodipine 10 mg PO QD, carvedilol 25 mg PO BID, furosemide 80 mg PO BID and hydralazine 50 mg PO BID at home. * Holding home amlodipine, furosemide and hydralazine. * Continue home carvedilol. #Crohn's disease: Patient takes prednisone 10 mg PO QD at home. * Holding home prednisone as patient is currently on dexamethasone. Will transition back to home prednisone tomorrow. Diet: Renal Dialysis Diet (regular and nectar thick liquids) DVT PPx: Warfarin and ALPs CODE: FULL Problem List: 1. Peripheral vascular disease 2. Supraglottic edema 3. Elevated troponin 4. Antiphospholipid antibody syndrome 5. Chronic ulcer of left lower extremity 6. Type 2 diabetes mellitus 7. Antiphospholipid antibody syndrome 8. Wound infection 9. Crohns disease Pain Ratin Pain Location: Left leg Pain Goal: Pain 4 or less Pain Plan: Morphine 1 mg IV Q4H PRN for severe pain (scale 7-10) Percocet 1 tab PO Q6H PRN for severe pain (scale 7-10) Tylenol 500 mg PO Q6H PRN for moderate pain (scale 4-6) Tomorrow's Labs & Rationales: CBC to monitor WBC in the setting of soft tissue infection of left calf BMP to monitor to lytes in the setting of ESRD on HD INR in the setting of anti-coagulation with warfarin AYUSH VENEGAS MD 07/04/16 1425: Attending MD Review Statement Attending Statement Attending MD Statement: examined this patient, discuss w/resident/PA/LOGISTICIAN, agreed w/resident/PA/LOGISTICIAN, reviewed EMR data (avail), discussed with nursing Attending Assessment/Plan: Patient continues to have a lot of discomfort in his cough. He also feels that the wound VAC is bothering him a lot. He is a 75-year-old male with antiphospholipid antibody syndrome on Coumadin, ESRD now on dialysis, on a Decadron taper for subglottic narrowing and vascular has depleted him and he is on on IV Vanco per ID. We are tapering the Decadron and then he'll get back on his usual prednisone which he takes for Crohn's disease, keep his INR therapeutic, continue Vanco for 7-10 days and await outpatient HD slot.
--- NOTE | 2016-07-04 09:02 | PN- Vascular Surgery ---
Surgical Brief Attending Note Brief Attending Note: VASCULAR ATTENDING NOTE 75-year-old male now postoperative day #4 status post debridement. Patient is on IV antibiotics. Wound VAC is removed today. Has had some discomfort with VAC. Patient is still on high-dose steroids which is inhibiting wound healing please readjust and decrease if possible Physical exam: Afebrile vital signs stable Exam exam reveals lower extremity is well-perfused, does have necrosis at the superior portion of the wound there is some mild granulation tissue. A/P stable wound with VAC therapy Continue IV antibiotics We'll reapply the VAC-likely tomorrow Patient is being set up for discharge--will need to lower steroids to promote wound healing
--- NOTE | 2016-07-04 09:18 | PN- Cardiology ---
Subjective Subjective: Telemetry reviewed. Sinus rhythm throughout. Patient feels well. Patient is essentially here for dialysis. Objective Vital Signs and I&Os Vital Signs Date Time Temp Pulse Resp B/P Pulse O2 O2 Flow FiO2 Ox Delivery Rate 07/04 811 98.4 75 17 95 Room Air 07/03 2331 97.8 88 18 140/66 98 Room Air 07/03 2140 81 140/66 07/03 2015 95 Room Air 07/03 1602 97.2 82 20 140/66 95 Room Air 07/03 1600 Room Air 07/03 1356 Room Air Room Air 07/03 1223 86 132/68 07/03 1223 86 132/68 Intake & Output 07/04 1600 07/04 0800 07/04 0000 07/03 1600 07/03 0800 07/03 0000 Intake Total 100 100 400 280 870 Output Total 217 978 8632 355 Balance -200 -100 -3100 -75 870 Intake, IV 160 170 Intake, Oral 100 100 400 120 700 Number 1 1 4 Bowel Movements Output, 3000 Dialysate Output, 5 Drainage Output, Stool 200 Output, Urine 300 200 300 350 Patient 172 lb 186 lb Weight Physical Exam: Gen. exam patient comfortable Head normocephalic atraumatic Eyes sclera anicteric conjunctiva showed mild pallor extraocular muscles were normal Neck no jugular venous distention no bruits no thyroid masses [place] chest lungs were clear bilaterally Heart regular rhythm grade 2/6 systolic murmur Abdomen soft no organomegaly Extremities no clubbing cyanosis or be or edema. neurological no gross motor or sensory deficits Current Medications: Current Medications Sig/Kailash Start time Last Medication Dose Route Stop Time Status Admin Acetaminophen 650 MG .STK-MED ONE 07/03 1003 DC PO 07/03 1004 Acetaminophen 500 MG Q6P PRN 07/02 0815 AC 07/03 PO 1026 Albuterol Sulfate 3 ML BID 06/30 2200 AC 07/03 INH 2014 Albuterol Sulfate 3 ML Q4H PRN 06/30 1200 AC INH Aspirin 81 MG DAILY 07/01 1000 AC 07/03 PO 1222 Atorvastatin Calcium 40 MG 1700 06/30 1700 AC 07/03 PO 1825 Carvedilol 25 MG BID 06/30 2200 AC 07/03 PO 2140 Dexamethasone 2 MG ONE ONE 07/05 1000 AC PO 07/05 1001 Dexamethasone 4 MG BID 07/03 1000 AC 07/03 PO 07/04 1300 2141 Diphenoxylate HCl/ 2.5 MG TID PRN 06/30 1200 AC 07/01 Atropine PO 0603 Epoetin Ludwig 6,000 UNIT PER PROTOCL PRN 07/01 1430 AC IV Insulin Aspart 0 TIDAC/HS 06/30 2100 AC 07/04 SC 0823 Insulin Detemir 6 UNITS BID 07/03 2200 AC 07/03 SC 2140 Insulin Detemir 9 UNITS BID 07/02 2200 DC 07/02 SC 2104 Iron Sucrose 100 MG PER PROTOCL PRN 07/01 1430 AC 07/03 Sodium Chloride 100 ML IV 1221 Morphine Sulfate 1 MG Q4P PRN 07/01 1500 AC 07/03 IV 0203 Multivitamins 1 TAB DAILY 07/01 1000 AC 07/03 PO 1221 Nystatin 5 ML 4 TIMES/DAY 07/01 1000 AC 07/03 PO 2141 Oxycodone/ 1 TAB Q6P PRN 06/30 1900 AC 07/04 Acetaminophen PO 0823 Sevelamer Carbonate 800 MG WITH MEALS 06/30 1200 AC 07/04 PO 0823 Tamsulosin HCl 0.4 MG DAILY 07/01 1000 AC 07/03 PO 1223 Vancomycin HCl 1,000 MG ONCE ONE 07/03 2015 DC Sodium Chloride 250 ML IV 07/03 2114 Vancomycin HCl 1,000 MG ONCE ONE 07/03 2000 DC Dextrose/Water 250 ML IV 07/03 205 Vancomycin HCl 1 MG DAILY PRN 07/01 1300 AC Dextrose/Water 250 ML IV Vitamin A/Vitamin D 1 CHAITANYA BID 06/30 2200 07/03 TOP 2142 Warfarin Sodium 4 MG ONCE ONE 07/03 1700 CAN PO 07/03 1701 Warfarin Sodium 2 MG ONCE ONE 07/03 1700 CAN PO 07/03 1701 Zinc Oxide 1 CHAITANYA BID 06/30 220 AC 07/03 TOP 2141 Results Last 48 Hrs of Labs/Mics: Laboratory Tests 07/04/16 0530: Anion Gap 5, Estimated GFR 33 L, BUN/Creatinine Ratio 19.0, PT 37.1 H, INR 3.58 H, CBC w Diff NO MAN DIFF REQ, RBC 3.25 L, MCV 95.4 H, MCH 29.4, RDW 19.5 H, MPV 11.0 H, Gran % 93.2 H, Lymphocytes % 2.1 L, Monocytes % 4.7, Eosinophils % 0, Basophils % 0 L, Absolute Granulocytes 12.1 H, Absolute Lymphocytes 0.3 L, Absolute Monocytes 0.6, Absolute Eosinophils 0, Absolute Basophils 0, PUBS MCHC 30.8 L 07/03/16 1800: APTT 36, Random Vancomycin 7.5 07/03/16 1130: 07/03/16 0830: Anion Gap 8, Estimated GFR 23 L, BUN/Creatinine Ratio 21.5, Calcium 7.7 L, Phosphorus 3.4, Magnesium 1.7, Albumin 2.7 L, CBC w Diff NO MAN DIFF REQ, RBC 3.35 L, MCV 94.3 H, MCH 29.1, RDW 19.0 H, MPV 11.1 H, Gran % 88.6 H, Lymphocytes % 3.7 L, Monocytes % 7.4, Eosinophils % 0.2, Basophils % 0.1, PUBS MCHC 30.9 L, Absolute Granulocytes 13.4 H, Absolute Lymphocytes 0.6 L, Absolute Monocytes 1.1 H, Absolute Eosinophils 0, Absolute Basophils 0 07/03/16 0535: Anion Gap 8, Estimated GFR 23 L, BUN/Creatinine Ratio 21.9, PT 38.0 H, INR 3.67 H, CBC w Diff NO MAN DIFF REQ, RBC 3.33 L, MCV 94.7 H, MCH 29.4, RDW 19.0 H, MPV 11.1 H, Gran % 88.7 H, Lymphocytes % 3.0 L, Monocytes % 8.2, Eosinophils % 0, Basophils % 0.1, PUBS MCHC 31.1 L, Absolute Granulocytes 13.0 H, Absolute Lymphocytes 0.4 L, Absolute Monocytes 1.2 H, Absolute Eosinophils 0, Absolute Basophils 0 07/03/16 0000: APTT 93 H 07/02/16 1715: APTT 50 H Assessment/Plan Assessment/Plan In summary this 75-year-old gentleman has the following problems #1 antiphospholipid antibody syndrome with previous DVT. He is on warfarin #2 end-stage renal disease on hemodialysis #3 chronic left lower extremity ulcer #4 positive troponin felt to be related to myocardial supply demand mismatch. He has normal left ventricular systolic function #5 diabetes From a cardiac standpoint he appears stable. No arrhythmias are noted. He could be transferred to general medicine. Please call us if needed.
--- NOTE | 2016-07-04 11:29 | PN- Infect Dx ---
Subjective Subjective: Afebrile on steroids. He continues to complain of pain in the left calf. Objective Last 24 Hrs of Vital Signs/I&O Vital Signs Date Time Temp Pulse Resp B/P Pulse O2 O2 Flow FiO2 Ox Delivery Rate 07/04 1112 Room Air Room Air 07/04 1106 95 Room Air 07/04 1101 Room Air Room Air 07/04 1054 75 140/66 07/04 1054 75 140/66 07/04 0811 98.4 75 17 95 Room Air 07/03 2331 97.8 88 18 140/66 98 Room Air 07/03 2140 81 140/66 07/03 2015 95 Room Air 07/03 1602 97.2 82 20 140/66 95 Room Air 07/03 1600 Room Air 07/03 1356 Room Air Room Air 07/03 1223 86 132/68 07/03 1223 86 132/68 Intake & Output 07/04 1600 07/04 0800 07/04 0000 Intake Total 100 100 Output Total 300 200 Balance -200 -100 Intake, Oral 100 100 Number 1 Bowel Movements Output, Urine 300 200 Patient 172 lb Weight Physical Exam Other Physical Findings: He is comfortable in no acute distress Skin multiple petechial lesions over his left shoulder/chest Neck tunneled catheter in the right IJ with no inflammation at the site Extremities left calf wound fairly clean, with minimal necrosis, tender on palpation, with no surrounding erythema Results Last 24 Hours of Lab Results: Laboratory Tests 07/04 07/03 07/03 0530 1800 1130 Chemistry Sodium (137 - 145 mmol/L) 136 L Potassium (3.5 - 5.1 mmol/L) 4.8 Chloride (98 - 107 mmol/L) 105 Carbon Dioxide (22 - 30 mmol/L) 25 Anion Gap (5 - 16) 5 BUN (9 - 20 mg/dL) 38 H 17 Creatinine (0.7 - 1.2 mg/dL) 2.0 H Estimated GFR (>60 ml/min) 33 L BUN/Creatinine Ratio (7 - 25 %) 19.0 Coagulation PT (9.4 - 12.5 SEC) 37.1 H INR (0.90 - 1.17) 3.58 H APTT (25 - 37 SEC) 36 Hematology CBC w Diff NO MAN DIFF REQ WBC (4.8 - 10.8 /CUMM) 13.0 H RBC (4.70 - 6.10 /CUMM) 3.25 L Hgb (14.0 - 18.0 G/DL) 9.6 L Hct (42 - 52 %) 31.0 L MCV (80.0 - 94.0 FL) 95.4 H MCH (27.0 - 31.0 PG) 29.4 RDW (11.5 - 14.5 %) 19.5 H Plt Count (130 - 400 /CUMM) 119 L MPV (7.4 - 10.4 FL) 11.0 H Gran % (42.2 - 75.2 %) 93.2 H Lymphocytes % (20.5 - 51.1 %) 2.1 L Monocytes % (1.7 - 9.3 %) 4.7 Eosinophils % (0 - 5 %) 0 Basophils % (0.0 - 2.0 %) 0 L Absolute Granulocytes (1.4 - 6.5 /CUMM) 12.1 H Absolute Lymphocytes (1.2 - 3.4 /CUMM) 0.3 L Absolute Monocytes (0.10 - 0.60 /CUMM) 0.6 Absolute Eosinophils (0.0 - 0.7 /CUMM) 0 Absolute Basophils (0.0 - 0.2 /CUMM) 0 PUBS MCHC (33.0 - 37.0 G/DL) 30.8 L Toxicology Random Vancomycin (ug/ml) 7.5 Last 24 Hours of Avtar Results: No recent cultures Assessment/Plan Impression: Stable with temperatures remaining normal and white blood cell count slightly decreased with tapering of steroids. Apparently he did not receive Vancomycin yesterday and there is a question of whether he received it on July 01, though his Vancomycin level yesterday of 7.5 does suggest he received a dose recently. He is now 4 days status post excisional debridement through the subcutaneous and muscular tissue of the left calf with "seropurulent" drainage noted and with OR culture growing coag-negative Staph and diphtheroids, with his wound appearing improved. Suggestion: 1. Continue Vancomycin after each dialysis per protocol to plan on a 7-10 day course
--- NOTE | 2016-07-04 15:31 | NUR ---
I agree with the Speeder Operator's findings/evaluation of this patient's condition.
[2016-07-04 15:47] VITALS: BP 140/62
[2016-07-05 00:27] VITALS: BP 136/64
[2016-07-05 05:57] LABS: PT 30.2 SEC (9.4-12.5)
[2016-07-05 06:00] LABS: ABSOLUTE BASOPHIL COUNT 0.1 /CUMM (0.0-0.2); ABSOLUTE EOSINOPHIL COUNT 0 /CUMM (0.0-0.7); ABSOLUTE GRANULOCYTE CT 9.4 /CUMM (1.4-6.5); ABSOLUTE LYMPH COUNT 0.6 /CUMM (1.2-3.4); ABSOLUTE MONOCYTE COUNT 1.5 /CUMM (0.10-0.60); BASOPHIL % 0.5 % (0.0-2.0); EOSINOPHIL % 0.4 % (0-5); MEAN CORPUSCULAR HGB 29.2 PG (27.0-31.0); MEAN CORPUSCULAR HGB CONC 30.8 G/DL (33.0-37.0); MEAN CORPUSCULAR VOLUME 94.7 FL (80.0-94.0); MEAN PLATELET VOLUME 10.1 FL (7.4-10.4); PLATELET COUNT 132 /CUMM (130-400); RBC DISTRIBUTION WIDTH 19.1 % (11.5-14.5); RED BLOOD CELL CT 2.96 /CUMM (4.70-6.10); WHITE BLOOD CELL COUNT 11.7 /CUMM (4.8-10.8)
--- NOTE | 2016-07-05 07:09 | PN- Housestaff ---
VINCENZO HEATH,IMGE 07/05/16 0709: Subjective Follow-up For: Chronic nonhealing ulcer of left calf ESRD T2DM Subjective: No acute events overnight. Patient seen and examined this morning. He continues to complain of severe pain in his left leg wound. Review of Systems Constitutional: Denies: chills, fever. Cardiovascular: Denies: chest pain. Respiratory: Denies: short of breath. Gastrointestinal: Denies: abdominal pain, constipation, diarrhea, nausea, vomiting. Objective Last 24 Hrs of Vital Signs/I&O Vital Signs Date Time Temp Pulse Resp B/P Pulse O2 O2 Flow FiO2 Ox Delivery Rate 07/05 1902 97.7 100 20 132/80 97 Room Air 07/05 1901 132/80 07/05 1119 Room Air Room Air 07/05 1044 97 Room Air Room Air 07/05 0805 97.9 82 20 132/64 95 Room Air 07/05 0027 97.5 80 20 136/64 96 Room Air Intake & Output 07/05 1600 07/05 0800 07/05 0000 Intake Total 480 130 490 Output Total 100 400 300 Balance 380 -270 190 Intake, IV 10 10 Intake, Oral 480 120 480 Number 2 1 1 Bowel Movements Output, Urine 100 400 300 Patient 83.461 kg Weight Physical Exam General Appearance: Alert, Oriented X3, No Acute Distress Skin: Scattered Petechia and Purpura on Trunk and Extremities HEENT: Mucous Membr. moist/pink Neck: Mj Cath In Place at [facility] with No Inflammation at the Site Cardiovascular: Regular Rate, Normal S1, Normal S2 Lungs: Clear to Auscultation, Normal Air Movement Abdomen: Soft, No Tenderness, Positive Bowel Sounds Extremities: No Clubbing, No Cyanosis, No Edema, Left Leg Dressing and Wound VAC In Place Current Medications: Current Medications Sig/Kailash Start time Last Medication Dose Route Stop Time Status Admin Acetaminophen 650 MG .STK-MED ONE 07/05 824 DC PO 07/05 08 Acetaminophen 500 MG Q6P PRN 07/02 0815 AC 07/05 PO 0835 Albuterol Sulfate 3 ML Q 3-4 HRS PRN PRN 07/05 1100 AC INH Albuterol Sulfate 3 ML BID 06/30 2200 DC 07/05 INH 1044 Albuterol Sulfate 3 ML Q4H PRN 06/30 1200 DC INH Aspirin 81 MG DAILY 07/01 1000 AC 07/05 PO 1901 Atorvastatin Calcium 40 MG 1700 06/30 1700 AC 07/05 PO 1901 Carvedilol 25 MG BID 06/30 2200 AC 07/04 PO 2052 Diphenoxylate HCl/ 2.5 MG TID PRN 06/30 1200 AC 07/04 Atropine PO 205 Epoetin Ludwig 6,000 UNIT PER PROTOCL PRN 07/01 1430 AC IV Insulin Aspart 0 TIDAC/HS 06/30 2100 AC 07/05 SC 1904 Insulin Detemir 6 UNITS BID 07/03 2200 AC 07/05 SC 0845 Iron Sucrose 100 MG PER PROTOCL PRN 07/01 1430 AC 07/03 Sodium Chloride 100 ML IV 1221 Morphine Sulfate 1 MG Q4P PRN 07/01 1500 DC 07/03 IV 0203 Multivitamins 1 TAB DAILY 07/01 1000 AC 07/05 PO 1900 Nystatin 5 ML 4 TIMES/DAY 07/01 1000 DC 07/04 PO 2052 Oxycodone/ 2 TAB Q6P PRN 07/05 1115 AC Acetaminophen PO Oxycodone/ 1 TAB Q6P PRN 07/05 1115 AC 07/05 Acetaminophen PO 1123 Oxycodone/ 1 TAB Q6P PRN 06/30 1900 DC 07/05 Acetaminophen PO 1029 Prednisone 10 MG DAILY 07/05 1000 AC 07/05 PO 1913 Sevelamer Carbonate 800 MG WITH MEALS 06/30 1200 AC 07/05 PO 1901 Sodium Hypochlorite 1 CHAITANYA BID 07/05 1113 AC 07/05 TOP 1229 Tamsulosin HCl 0.4 MG DAILY 07/01 1000 AC 07/05 PO 1901 Vancomycin HCl 1,000 MG ONCE ONE 07/05 1800 DC Sodium Chloride 250 ML IV 07/05 1859 Vancomycin HCl 1 MG DAILY PRN 07/01 1300 AC 07/04 Dextrose/Water 250 ML IV 1116 Vitamin A/Vitamin D 1 CHAITANYA BID 06/30 2200 AC 07/05 TOP 1030 Warfarin Sodium 4 MG ONCE ONE 07/05 1700 DC 07/05 PO 07/05 1701 1902 Zinc Oxide 1 CHAITANYA BID 06/30 2200 AC 07/05 TOP 1000 Last 24 Hrs of Lab/[facility]tar Results Last 24 Hrs of Labs/Mics: Laboratory Tests 07/05/16 0525: Anion Gap 6, Estimated GFR 24 L, BUN/Creatinine Ratio 21.5, PT 30.2 H, INR 2.91 H, CBC w Diff NO MAN DIFF REQ, RBC 2.96 L, MCV 94.7 H, MCH 29.2, RDW 19.1 H, MPV 10.1, Gran % 81.0 H, Lymphocytes % 5.6 L, Monocytes % 12.5 H, Eosinophils % 0.4, Basophils % 0.5, Absolute Granulocytes 9.4 H, Absolute Lymphocytes 0.6 L, Absolute Monocytes 1.5 H, Absolute Eosinophils 0, Absolute Basophils 0.1, PUBS MCHC 30.8 L, Random Vancomycin 11.6 Assessment/Plan Assessment: 75 y/o M with PMHx of antiphospholipid antibody syndrome, diabetes and CKD who presented with SOB, hoarseness and stridor, found to be uremic with initiation of HD, s/p debridement of chronic left leg ulcer, on IV vancomycin for soft tissue infection, currently awaiting outpatient dialysis slot. #Chronic left lower extremity ulcer: Has chronic nonhealing ulcers of left leg for which he sees Dr. Pretty as outpatient. S/p excisional debridement through the subcutaneous and muscular tissue with reported seropurulent drainage (06/30) and OR cultures growing dipthteroids and coag-negative Staph. Although these are not typically pathogenic organisms, currently on IV vancomycin for possible soft tissue infection. Patient's vancomycin dose which was supposed to be administered on 07/03 after dialysis, was administered yesterday. Wound appears improved, however patient complains of severe pain concerning for ischemia. * ID following. Appreciate their recs. * Continue vancomycin per dialysis protocol to plan for a 7-10 day course. * Vascular surgery following. Appreciate further evaluation regarding the vascular supply of left leg. #Antiphospholipid antibody syndrome: S/p post right upper extremity DVT. On life -long anti-coagulation with warfarin, takes 5 mg PO QD. * INR 2.91 today. Will administer 4 mg of warfarin this evening. * Continue to check INR daily and dose warfarin accordingly to keep INR between 2-3. #ESRD: Cr was 5 on admission, with gradual increase from 2-3 within the past year. Most likely etiology is progressive diabetic nephropathy. Mj cath was placed and urgent hemodialysis was initiated (06/26) with improvement of mental status. Patient is currently awaiting outpatient dialysis slot. * Nephrology following. Appreciate their recs. * Continue HD MWF. * No PICC lines should be inserted per Nephrology, as patient will need vein site for placement of graft. * Continue sevelamer 800 mg PO TIDAC. * Continue daily Nephrocaps. #T2DM: Uncontrolled blood sugars this admission, secondary to steroids. * Endocrinology following. Appreciate their recs. * Continue Levemir 6U SQ BID. * Continue NovoLog SSI TIDAC: 80-150 give 4 units, 151-200 give 6 units, 201-250 give 8 units, 251-300 give 10 units, 301-350 give 12 units and 351-400 give 14 units and NovoLog SSI QHS: 251-300 give 3 units, 301-350 give 4 units, 351-400 give 5 units. #HTN: Takes amlodipine 10 mg PO QD, carvedilol 25 mg PO BID, furosemide 80 mg PO BID and hydralazine 50 mg PO BID at home. * Holding home amlodipine, furosemide and hydralazine. * Continue home carvedilol. #Crohn's disease: Patient has been taking prednisone 10 mg PO QD for many years to prevent flares. * Transitioned to home prednisone today. Diet: Renal Dialysis Diet (regular and nectar thick liquids) DVT PPx: Warfarin and ALPs CODE: FULL Problem List: 1. Crohns disease 2. Peripheral vascular disease 3. Type 2 diabetes mellitus 4. Chronic ulcer of left lower extremity 5. Antiphospholipid antibody syndrome 6. Wound infection 7. End stage renal disease Pain Ratin Pain Location: Left leg Pain Goal: Pain 4 or less Pain Plan: Tylenol 500 mg PO Q6H PRN for moderate pain (scale 4-6) Percocet 1 tab PO Q6H PRN for moderate pain (scale 4-6) Percocet 2 tab PO Q6H PRN for severe pain (scale 7-10) Tomorrow's Labs & Rationales: CBC to monitor WBC in the setting of soft tissue infection of left calf BMP to monitor to lytes in the setting of ESRD on HD INR in the setting of anti-coagulation with warfarin GARRY HEATH,RADHA 07/05/16 1118: Attending MD Review Statement Attending Statement Attending MD Statement: examined this patient, discuss w/resident/PA/NETWORK INFRASTRUCTURE ARCHITECT, agreed w/resident/PA/NETWORK INFRASTRUCTURE ARCHITECT, reviewed EMR data (avail), discussed with nursing, discussed with case mgmt Attending Assessment/Plan: Patient lying in bed comfortably and currently waiting for hemodialysis.. Dysphagia physical therapy this morning. He has stable vital signs and has been afebrile. She is currently on room air was 97% saturation. He complains of for mild pain over the right Mj catheter. Otherwise no new complaints. His exam shows clear lungs soft abdomen and no edema. WBC count is 11.7 and hematocrit is 28. Sodium is 132 and creatinine is 2.6. INR is 2.91. Assessment plan * End-stage renal disease- patient currently on hemodialysis with plan for repeat hemodialysis today. Currently waiting for a hemodialysis slot as outpatient. * History of antiphospholipid antibody syndrome * History diabetes * Left leg wound infection with coag negative staph and diphtheroids- plan is to continue vancomycin with hemodialysis. Note that a random vancomycin level is 11.6 today. Patient may need further upward adjustment of vancomycin does by infectious disease. * Subglottic edema- patient currently on Decadron and plan is to switch to prednisone
--- NOTE | 2016-07-05 07:56 | PN- Diabetes ---
Assessment/Plan Assessment: Patient has type 2 diabetes which is being aggravated by high-dose steroid therapy. He has no stridor at present. Dexamethasone has been stopped and the patient is on prednisone 10 mg daily which apparently is his usual dose which he takes for his Crohn's disease. Fingerstick blood sugars yesterday were elevated later in the day. His sugar this morning is 174 by fingerstick. Plan: Since [facility] patients steroid dose has been reduced, I would continue the present insulin. We can check with his to see of prednisone 10 mg once a day is indeed his usual dose of steroid therapy for Crohn's disease. Depending on his fingerstick sugar readings today further adjustments in his insulin regimen may be necessary. Subjective Subjective: still has leg pain Objective Last 24 Hrs of Vital Signs/I&O Vital Signs Date Time Temp Pulse Resp B/P Pulse O2 O2 Flow FiO2 Ox Delivery Rate 07/05 0027 97.5 80 20 136/64 96 Room Air 12 1547 98.0 82 16 140/62 94 Room Air 07/04 1431 Room Air Room Air 07/04 1112 Room Air Room Air 07/04 1106 95 Room Air 07/04 1101 Room Air Room Air 12 1054 75 140/66 12/08 1054 75 140/66 12/08 0811 98.4 75 17 95 Room Air Intake & Output 07/05 0800 12/ 0000 12 1600 Intake Total 130 490 575 Output Total 400 300 600 Balance -270 190 -25 Intake, IV 10 10 Intake, Oral 120 480 575 Number 1 1 2 Bowel Movements Output, Urine 400 300 600 Vital Signs Date Time Temp Pulse Resp B/P Pulse O2 O2 Flow FiO2 Ox Delivery Rate 07/05 0027 97.5 80 20 136/64 96 Room Air 12 1547 98.0 82 16 140/62 94 Room Air 07/04 1431 Room Air Room Air 07/04 1112 Room Air Room Air 07/04 1106 95 Room Air 07/04 1101 Room Air Room Air 12 1054 75 140/66 12/08 1054 75 140/66 12/08 0811 98.4 75 17 95 Room Air Intake & Output 07/05 0800 12/ 0000 12/08 1600 Intake Total 130 490 575 Output Total 400 300 600 Balance -270 190 -25 Intake, IV 10 10 Intake, Oral 120 480 575 Number 1 1 2 Bowel Movements Output, Urine 400 300 600 Current Medications: Current Medications Sig/Kailash Start time Last Medication Dose Route Stop Time Status Admin Acetaminophen 500 MG Q6P PRN 07/02 0815 AC 07/03 PO 1026 Albuterol Sulfate 3 ML BID 06/30 2200 AC 07/04 INH 1103 Albuterol Sulfate 3 ML Q4H PRN 06/30 1200 AC INH Aspirin 81 MG DAILY 07/01 1000 AC 07/04 PO 1054 Atorvastatin Calcium 40 MG 1700 06/30 1700 AC 07/04 PO 1802 Carvedilol 25 MG BID 06/30 2200 AC 07/04 PO 2052 Dexamethasone 2 MG ONE ONE 07/05 1000 CAN PO 07/05 1001 Dexamethasone 4 MG BID 07/03 1000 DC 07/04 PO 07/04 1300 1054 Diphenoxylate HCl/ 2.5 MG TID PRN 06/30 1200 AC 07/04 Atropine PO 2052 Epoetin Ludwig 6,000 UNIT PER PROTOCL PRN 07/01 1430 AC IV Insulin Aspart 0 TIDAC/HS 06/30 2100 AC 07/04 SC 205 Insulin Detemir 6 UNITS BID 07/03 2200 AC 07/04 SC 205 Iron Sucrose 100 MG PER PROTOCL PRN 07/01 1430 AC 07/03 Sodium Chloride 100 ML IV 1221 Morphine Sulfate 1 MG Q4P PRN 07/01 1500 AC 07/03 IV 0203 Multivitamins 1 TAB DAILY 07/01 1000 AC 07/04 PO 1054 Nystatin 5 ML 4 TIMES/DAY 07/01 1000 AC 07/04 PO 2052 Oxycodone/ 1 TAB Q6P PRN 06/30 1900 AC 07/05 Acetaminophen PO 0409 Patient Medication 1 ED .STK-MED ONE 07/04 1412 DC Teaching ED 07/04 1413 Prednisone 10 MG DAILY 07/05 1000 AC PO Sevelamer Carbonate 800 MG WITH MEALS 06/30 1200 AC 07/04 PO 1802 Tamsulosin HCl 0.4 MG DAILY 07/01 1000 AC 07/04 PO 1054 Vancomycin HCl 1,000 MG ONCE ONE 07/04 1000 DC 07/04 Sodium Chloride 250 ML IV 07/04 1059 1055 Vancomycin HCl 1 MG DAILY PRN 07/01 1300 AC 07/04 Dextrose/Water 250 ML IV 1116 Vitamin A/Vitamin D 1 CHAITANYA BID 06/30 2200 07/04 Zinc Oxide 1 CHAITANYA BID 06/30 2200 07/04 Findings Pertinent Lab/[facility] Results: Laboratory Tests 07/05 525 Chemistry Sodium (137 - 145 mmol/L) 132 L Potassium (3.5 - 5.1 mmol/L) 4.7 Chloride (98 - 107 mmol/L) 103 Carbon Dioxide (22 - 30 mmol/L) 24 Anion Gap (5 - 16) 6 BUN (9 - 20 mg/dL) 56 H Creatinine (0.7 - 1.2 mg/dL) 2.6 H Estimated GFR (>60 ml/min) 24 L BUN/Creatinine Ratio (7 - 25 %) 21.5 Coagulation PT (9.4 - 12.5 SEC) 30.2 H INR (0.90 - 1.17) 2.91 H Hematology CBC w Diff NO MAN DIFF REQ WBC (4.8 - 10.8 /CUMM) 11.7 H RBC (4.70 - 6.10 /CUMM) 2.96 L Hgb (14.0 - 18.0 G/DL) 8.6 L Hct (42 - 52 %) 28.0 L MCV (80.0 - 94.0 FL) 94.7 H MCH (27.0 - 31.0 PG) 29.2 RDW (11.5 - 14.5 %) 19.1 H Plt Count (130 - 400 /CUMM) 132 MPV (7.4 - 10.4 FL) 10.1 Gran % (42.2 - 75.2 %) 81.0 H Lymphocytes % (20.5 - 51.1 %) 5.6 L Monocytes % (1.7 - 9.3 %) 12.5 H Eosinophils % (0 - 5 %) 0.4 Basophils % (0.0 - 2.0 %) 0.5 Absolute Granulocytes (1.4 - 6.5 /CUMM) 9.4 H Absolute Lymphocytes (1.2 - 3.4 /CUMM) 0.6 L Absolute Monocytes (0.10 - 0.60 /CUMM) 1.5 H Absolute Eosinophils (0.0 - 0.7 /CUMM) 0 Absolute Basophils (0.0 - 0.2 /CUMM) 0.1 PUBS MCHC (33.0 - 37.0 G/DL) 30.8 L Toxicology Random Vancomycin (ug/ml) 11.6
[2016-07-05 08:05] VITALS: BP 132/64; BP 3132/64
--- NOTE | 2016-07-05 11:31 | PN- Cardiology ---
Subjective Subjective: The patient is awake, alert The events of the last 24 hours as well as telemetry were reviewed. Review of Systems: The review of systems is negative for chest pains, palpitations nor lightheadedness. The remainder of the 14 point review of systems is noncontributory with the exception of above. Objective Vital Signs and I&Os Vital Signs Date Time Temp Pulse Resp B/P Pulse O2 O2 Flow FiO2 Ox Delivery Rate 07/05 1119 Room Air Room Air 07/05 1044 97 Room Air Room Air 07/05 0805 97.9 82 20 3132/64 95 Room Air 07/05 0027 97.5 80 20 136/64 96 Room Air 07/04 1547 98.0 82 16 140/62 94 Room Air 07/04 1431 Room Air Room Air Intake & Output 07/05 1600 07/05 0807/05 0000 07/04 1600 07/04 0800 07/04 0000 Intake Total 130 490 575 100 100 Output Total 400 300 600 300 200 Balance -270 190 -25 -200 -100 Intake, IV 10 10 Intake, Oral 120 480 575 100 100 Number 1 1 2 1 Bowel Movements Output, Urine 400 300 600 300 200 Patient 184 lb 172 lb Weight Physical Exam: General: Nontoxic, no apparent distress. HEENT: Sclera and conjunctiva within normal limits, without xanthelasmas. Neck: Carotids 2+ without bruits. Respiratory: Clear to auscultation, air movement is good, without accessory respiratory muscle use. Heart: Regular rate and rhythm, without murmurs, without JVD. Abdomen: Soft, nontender, no masses, normoactive bowel sounds. Extremities: Without clubbing, cyanosis, without edema. Neuro: Nonfocal exam, strength, 5 out of 5 Skin: Within normal limits without lesions. Psych: Mood and affect: Normal Current Medications: Current Medications Sig/Kailash Start time Last Medication Dose Route Stop Time Status Admin Acetaminophen 500 MG Q6P PRN 07/02 0815 AC 07/05 PO 0835 Albuterol Sulfate 3 ML Q 3-4 HRS PRN PRN 07/05 1100 AC INH Albuterol Sulfate 3 ML BID 06/30 2200 DC 07/05 INH 1044 Albuterol Sulfate 3 ML Q4H PRN 06/30 1200 DC INH Aspirin 81 MG DAILY 07/01 1000 AC 07/04 PO 1054 Atorvastatin Calcium 40 MG 1700 06/30 1700 AC 07/04 PO 1802 Carvedilol 25 MG BID 06/30 2200 AC 07/04 PO 205 Dexamethasone 2 MG ONE ONE 07/05 1000 CAN PO 07/05 1001 Dexamethasone 4 MG BID 07/03 1000 DC 07/04 PO 07/04 1300 1054 Diphenoxylate HCl/ 2.5 MG TID PRN 06/30 1200 AC 07/04 Atropine PO 205 Epoetin Ludwig 6,000 UNIT PER PROTOCL PRN 07/01 1430 AC IV Insulin Aspart 0 TIDAC/HS 06/30 2100 AC 07/05 SC 0832 Insulin Detemir 6 UNITS BID 07/03 2200 AC 07/05 SC 0845 Iron Sucrose 100 MG PER PROTOCL PRN 07/01 1430 AC 07/03 Sodium Chloride 100 ML IV 1221 Morphine Sulfate 1 MG Q4P PRN 07/01 1500 DC 07/03 IV 0203 Multivitamins 1 TAB DAILY 07/01 1000 AC 07/04 PO 1054 Nystatin 5 ML 4 TIMES/DAY 07/01 1000 DC 07/04 PO 2052 Oxycodone/ 2 TAB Q6P PRN 07/05 1115 AC Acetaminophen PO Oxycodone/ 1 TAB Q6P PRN 07/05 1115 AC 07/05 Acetaminophen PO 1123 Oxycodone/ 1 TAB Q6P PRN 06/30 1900 DC 07/05 Acetaminophen PO 1029 Patient Medication 1 ED .STK-MED ONE 07/04 1412 DC Teaching ED 07/04 1413 Prednisone 10 MG DAILY 07/05 1000 AC PO Sevelamer Carbonate 800 MG WITH MEALS 06/30 1200 AC 07/05 PO 0832 Sodium Hypochlorite 1 CHAITANYA BID 07/05 1113 AC TOP Tamsulosin HCl 0.4 MG DAILY 07/01 1000 AC 07/04 PO 1054 Vancomycin HCl 1 MG DAILY PRN 07/01 1300 AC 07/04 Dextrose/Water 250 ML IV 1116 Vitamin A/Vitamin D 1 CHAITANYA BID 06/30 2200 AC 07/05 TOP 1030 Zinc Oxide 1 CHAITANYA BID 06/30 220 AC 07/04 TOP 2051 Results Last 48 Hrs of Labs/Mics: Laboratory Tests 07/05/16 0525: Anion Gap 6, Estimated GFR 24 L, BUN/Creatinine Ratio 21.5, PT 30.2 H, INR 2.91 H, CBC w Diff NO MAN DIFF REQ, RBC 2.96 L, MCV 94.7 H, MCH 29.2, RDW 19.1 H, MPV 10.1, Gran % 81.0 H, Lymphocytes % 5.6 L, Monocytes % 12.5 H, Eosinophils % 0.4, Basophils % 0.5, Absolute Granulocytes 9.4 H, Absolute Lymphocytes 0.6 L, Absolute Monocytes 1.5 H, Absolute Eosinophils 0, Absolute Basophils 0.1, PUBS MCHC 30.8 L, Random Vancomycin 11.6 07/04/16 0530: Anion Gap 5, Estimated GFR 33 L, BUN/Creatinine Ratio 19.0, PT 37.1 H, INR 3.58 H, CBC w Diff NO MAN DIFF REQ, RBC 3.25 L, MCV 95.4 H, MCH 29.4, RDW 19.5 H, MPV 11.0 H, Gran % 93.2 H, Lymphocytes % 2.1 L, Monocytes % 4.7, Eosinophils % 0, Basophils % 0 L, Absolute Granulocytes 12.1 H, Absolute Lymphocytes 0.3 L, Absolute Monocytes 0.6, Absolute Eosinophils 0, Absolute Basophils 0, PUBS MCHC 30.8 L 07/03/16 1800: APTT 36, Random Vancomycin 7.5 07/03/16 1130: Assessment/Plan Assessment/Plan 1. Elevated troponin possibly due to demand ischemia 2. Possible pneumonia 3. Subglottic edema 4. History of antiphospholipid antibody syndrome maintained on anticoagulation 5. Lower extremity ulcer with peripheral vascular disease 6. End-stage renal disease on dialysis 7. History of hypertension 8. History of upper extremity thrombosis The troponin isoenzyme elevation is likely multifactorial and demonstrates chronic elevation in the setting of renal dysfunction. We will continue a conservative approach to management. Further workup which would include an overall assessment of underlying ischemic burden (through a Lexiscan stress sestamibi) may be considered after discharge. The patient may be discharged from a cardiac vascular standpoint, with further treatment as an outpatient.
--- NOTE | 2016-07-05 13:52 | PN- Infect Dx ---
Subjective Subjective: Afebrile. He continues to complain of severe pain in the left leg. Objective Last 24 Hrs of Vital Signs/I&O Vital Signs Date Time Temp Pulse Resp B/P Pulse O2 O2 Flow FiO2 Ox Delivery Rate 07/05 1119 Room Air Room Air 07/05 1044 97 Room Air Room Air 07/05 0805 97.9 82 20 3132/64 95 Room Air 07/05 0027 97.5 80 20 136/64 96 Room Air 07/04 1547 98.0 82 16 140/62 94 Room Air 07/04 1431 Room Air Room Air Intake & Output 07/05 1600 07/05 0800 07/05 0000 Intake Total 130 490 Output Total 400 300 Balance -270 190 Intake, IV 10 10 Intake, Oral 120 480 Number 1 1 Bowel Movements Output, Urine 400 300 Patient 184 lb Weight Physical Exam Other Physical Findings: He is comfortable at present in no acute distress Neck tunneled catheter in the right IJ with no inflammation at the site Extremities left leg dressing intact; left foot warm with 1+ pulses Results Last 24 Hours of Lab Results: Laboratory Tests 07/05 0525 Chemistry Sodium (137 - 145 mmol/L) 132 L Potassium (3.5 - 5.1 mmol/L) 4.7 Chloride (98 - 107 mmol/L) 103 Carbon Dioxide (22 - 30 mmol/L) 24 Anion Gap (5 - 16) 6 BUN (9 - 20 mg/dL) 56 H Creatinine (0.7 - 1.2 mg/dL) 2.6 H Estimated GFR (>60 ml/min) 24 L BUN/Creatinine Ratio (7 - 25 %) 21.5 Coagulation PT (9.4 - 12.5 SEC) 30.2 H INR (0.90 - 1.17) 2.91 H Hematology CBC w Diff NO MAN DIFF REQ WBC (4.8 - 10.8 /CUMM) 11.7 H RBC (4.70 - 6.10 /CUMM) 2.96 L Hgb (14.0 - 18.0 G/DL) 8.6 L Hct (42 - 52 %) 28.0 L MCV (80.0 - 94.0 FL) 94.7 H MCH (27.0 - 31.0 PG) 29.2 RDW (11.5 - 14.5 %) 19.1 H Plt Count (130 - 400 /CUMM) 132 MPV (7.4 - 10.4 FL) 10.1 Gran % (42.2 - 75.2 %) 81.0 H Lymphocytes % (20.5 - 51.1 %) 5.6 L Monocytes % (1.7 - 9.3 %) 12.5 H Eosinophils % (0 - 5 %) 0.4 Basophils % (0.0 - 2.0 %) 0.5 Absolute Granulocytes (1.4 - 6.5 /CUMM) 9.4 H Absolute Lymphocytes (1.2 - 3.4 /CUMM) 0.6 L Absolute Monocytes (0.10 - 0.60 /CUMM) 1.5 H Absolute Eosinophils (0.0 - 0.7 /CUMM) 0 Absolute Basophils (0.0 - 0.2 /CUMM) 0.1 PUBS MCHC (33.0 - 37.0 G/DL) 30.8 L Toxicology Random Vancomycin (ug/ml) 11.6 Last 24 Hours of [facility]tar Results: No recent cultures Assessment/Plan Impression: Stable with temperatures remaining normal and white blood cell count continuing to decrease on tapering steroids. He continues on Vancomycin, dosed yesterday because he did not receive the dose on the previous day following dialysis, and this can be continued after each dialysis. He is now 5 days status post excisional debridement through the subcutaneous and muscular tissue of the left calf with "seropurulent" drainage noted and with OR culture growing coag- negative Staph and diphtheroids, with his wound appearing improved. The severity of his pain is suggestive of ischemia, though he reportedly has good blood flow in this area. Suggestion: 1. Further evaluation regarding the vascular status of his left leg per Vascular surgery 2. Continue Vancomycin after each dialysis per protocol to plan on a 7-10 day course
--- NOTE | 2016-07-05 14:40 | NUR ---
WOUND CARE: ATTEMPT TO COMPLETE DRESSING CHANGE TO LEFT LOWER EXTREMITY - REFUSED BY PATIENTM, STATING "THE NURSE ALREADY DID IT TODAY" - WILL CONT TO MONITOR RECOMMEDNATION: CONT WOUND CARE OVER WEEKEND PER DR VENEGAS RECOMMEDNATIONS PLEASE
--- NOTE | 2016-07-05 15:12 | Discharge Summary ---
Visit Information Visit Dates Admission Date: 06/26/16 Hospital Course Course Attending Physician: THEO HEATH,AYUSH Escamilla Primary Care Physician: OANH HEATH,WAYNE Posada Consulting Request: 1 Consulting Specialty: Cardiology Consulting Request: 2 Consulting Specialty: Infectious Disease Consulting Request: 3 Consulting Specialty: Endocrinology Consulting Request: 4 Consulting Specialty: Otorhinolaryngology Hospital Course: This is a 75-year-old male with past medical history significant for antiphospholipid antibody syndrome, chronic right upper extremity deep vein thrombosis on Coumadin daily, hypertension, diabetes, chronic kidney disease stage V, severe peripheral vascular disease, left lower extremity nectrotising nonhealing ulcers status post debridement by Dr. pretty, crohns disease status post bowel resection and chronic prednisone treatment, kidney stones status post lithotripsy, right toes amputation, femoropopliteal bypass surgery was brought in by ambulance from home early in the morning for worsening of breathing, hoarseness, stridor for 2days. Problem list: -End-stage renal disease on hemodialysis -Left leg wound infection -Subglottic edema -Antiphospholipid antibody syndrome Hospital course: He was admitted to the ICU and the following were addressed so far: Hoarseness and stridor: Patient presented with worsening hoarseness, intermittent stridor and SOB. He was also lethargic on admission. Of note, he has a recent history of hospitalization at [facility] with similar symptoms in April 2016 and was treated with dexamethasone for subglottic edema. MRA and laryngoscopy were normal. Records from [facility] were also obtained, suggested infectious or inflammatory process causing subglottic edema. But no definite etiology was determined. On the day admission ENT, Dr. Dawn, performed laryngoscopy and reported bilateral vocal cord paralysis and subglottic narrowing. Xray of the neck was performed and showed a normal larynx, pharynx and upper trachea. No soft tissue swelling or opaque foreign body and no hypopharyngeal distention. CTA of neck with IV contrast did not report any abnormal anatomic findings. O2 supplementation was started as well as dexamethasone 6 mg Q8 per ENT. Patient 's hoarseness and stridor resolved over the next 48h and he was breathing comfortably in RA. Repeat Laryngoscopy on Jun [address] Crisostomo reported improvement of bilateral vocal cord paralysis, most likely viral in etiology. Patient has been breathing comfortably on room air with no hoarseness. We decreased dexamethasone dose to 4 mg Q8 today (07/01/16). Will continue dexamethasone taper. Acute hypoxic respiratory failure: Patient presented with worsening shortness of breath. Chest x-ray and CAT scan showed left lung consolidation and pneumonia. However afebrile and no leukocytosis. We started IV ceftaz and IV vancomycin in the emergency room. However records from recent hospitalization in April 2016 at [facility] showed some of the findings were long-standing. We discontinued antibiotics on . 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 He is following Dr. Pretty as an outpatient. He underwent wound debridement in May 2016 and 06/30/2016 by at [facility], follows up with him regularly. Wound Debridement was done yesterday (06/30/16) by Dr. Pretty. Also wound consult is placed with . Per Dr. Pretty's recommendation and the fact that deep tissue cultures grew Diphtheroids, Dr. Harden agreed to restart Vancomycin. Patient received a dose today after dialysis and is put on vanc/hemodialysis protocol. We also decreased dexamethasone dose to help with better sugar control and wound healing. Chronic anticoagulation and Subtherapeutic INR on admission Patient has chronic right upper extremity DVT and is on warfarin, he has been diagnosed with anti-phospholipid syndrome >20 years ago. INR 1.31 on admission. Warfarin was on hold since admission in anticipation of wound debridement and started IV heparin both for the chronic DVT and also for the elevated troponin. We stopped IV heparin today (07/01/16) and re-started warfarin. The reason being that patient's upper extremity has significant swelling and does not allow blood to be drawn periodically per heparin protocol to calculate PTT. Decision was made after discussion with Dr. Sarah and Dr. Del Cid. Chronic kidney disease Stage V Creatinine 5 on admission, baseline creatinine 4.5. Tunnelled cath. was placed on the day of admission, before getting CTA neck with IV contrast. He underwent dialysis 3 days in a row on , and . He had his 4th day of dialysis today on 07/01/16. Cr 3.3 before dialysis today. Kept calcitriol, sodium citrate, sodium bicarbonate on hold per nephrology. On renvela and nephrovitamin. Acute coronary syndrome Denied any chest pain, racing of heart, diaphoresis, nausea, vomiting. No cardiac history in the past, stress test was normal. Elevated troponins on admission 0.95, went up to 1.11 and 1.12, came down to 0.86. No acute EKG changes on admission-sinus rhythm, rate 94, QTC 521, no acute ST-T wave changes, repeat ECGs remained unchanged. Follows Dr. Cohn protocol manager as an outpatient, Echo- May 2016 showed normal ejection fraction. ECHO: Poor LV endocardial definition but normal overall left ventricular systolic function. Left atrial enlargement. Moderate Pulmonary hypertension. Borderline normal left ventricular ejection fraction estimated at 50-55%. Continue with aspirin, statin, beta randy. Chronic lower extremity swelling Patient takes Lasix at home. He underwent dialysis for 3 days nad then received two doses of IV lasix 80 mg over the weekend. He got dialyzed again today, and continue on Fri/Fri/Fri schedule per nephrology. Hypomagnesemia 1.5 on admission. repleted. Please monitor magnesium and replete. Telemetry course: Continue the patient's hemodialysis as scheduled, and we dose his vancomycin accordingly, we tapered the patient Decadron dose and him on replaced his home dose of prednisone 10 mg, one to care consultation required the patient to be on hyperbaric oxygen therapy, and the patient continue his wound VAC............. [facility] course: Patient was transferred to [facility] floor on friday07/08/16, he received his scheduled cycle of dialysis and received his scheduled dose of vancomycin, he was seen by ID, there was a strong thought that vascular acute process is contributing to his nonhealing ulcer on his left lower leg for which a vascular consult was placed with Dr. Pretty services, next morning around 7:00 in the morning a rapid response was called, he was having nonradiating midsternal chest pain 8/10 he reported feeling very anxious, exam and vitals were within normal limits, a stat EKG was obtained which did not show any acute abnormalities, troponin came back 0.14, he received 2 doses of sublingual nitroglycerin along with morphine which gave him some relief , as patient was having ongoing chest pain a decision was made to transfer him to telemetry floor for continued cardiac monitoring, cardiac consult was obtained with Dr. Zan Burden group, will trend troponins and EKG and follow cardiac recommendation. Also his Coumadin was held because of supratherapeutic INR. Allergies: Coded Allergies: Sulfa (Sulfonamide Antibiotics) (Mild, HIVES 06/15/16) Significant Procedures: Name of Procedure: Excisional debridement of left lower extremity through subcutaneous and musculature tissue greater than 20 cm, bacitracin washout, deep tissue wound culture, placement of a vacuum-assisted closure Pre-Operative Diagnosis: Left lower extremity nonhealing wound Post-Operative Diagnosis: Same Estimated Blood Loss: scant Surgeon/Technology Strategist: HONORIO PRETTY MD Anesthesia: local monitored anesthesi Specimens: Biopsy and deep tissue culture sent before administration of antibiotics Microbiology: Deep tissue culture sent of left leg. This was below the debridement level and therefore if bacterial pathogen is present suggest chronic wound infection Operative/Procedure Note Note: Patient laid supine on the operating room table. Timeout was held in accordance with [facility] policy. Patient was prepped and draped in the usual sterile surgical fashion. Wide excisional debridement was then carried out through the skin subcutaneous and musculotendinous tissue of all necrotic tissue. This was performed with a 15 blade, Metzenbaum scissors and curettes. This increased the size of the wound in all directions. The wound now extends towards the ankle and foot area. Seropurulent type drainage was noted consistent with a chronic infected field. Wound cultures were taken and then antibiotics were administered after. The wound was copiously pulse irrigated with bacitracin saline. Hemostasis was achieved with manual compression. A VAC dressing was then placed on the left leg. Sponge needle and instrument counts were correct. Patient was transported to the recovery area. We'll follow up on cultures but suggest continued antibiotic therapy as the patient's leg is now compromised and he is at high risk for limb loss. Would also recommend decreasing steroids if possible to aid in wound healing. Findings: Seropurulent type discharge with necrosis suggesting chronic infection and steroid use inhibiting wound healing. Disposition Summary Disposition Principal Diagnosis: -End-stage renal disease on hemodialysis -Left leg wound infection -Subglottic edema Additional Diagnosis: -Antiphospholipid antibody syndrome -Hypomagnesemia Discharge Disposition: SNF Discharge Instructions General Discharge Information Code Status: Full Code Patient's Diet: Diabetic diet Patient's Activity: As tolerated Follow-Up Instructions/Appts: Please follow-up with your primary care doctor after discharge Please follow-up with a protocol manager after discharge. Please follow-up with executive admin discharge. Please follow-up with the vascular surgeon after discharge. Please follow-up with the wound care after discharge. Medications at Discharge Discharge Medications: Stop taking the following medications: Amlodipine Besylate (Amlodipine Besylate) 10 MG TABLET ORAL DAILY Qty = 30 Hydralazine HCl (Hydralazine HCl) 50 MG TABLET ORAL TWICE DAILY Qty = 90 Sodium Bicarbonate (Sodium Bicarbonate) 325 MG TABLET ORAL TWICE DAILY Furosemide (Furosemide) 80 MG TABLET ORAL TWICE DAILY Qty = 60 Continue taking these medications: Cyanocobalamin (Vitamin B-12) 1,000 MCG TABLET 1 Tablet ORAL DAILY Comments: NOT TAKEN Multivit-Min/FA/Lycopen/Lutein (Centrum Silver Tablet) 1 EACH TABLET 1 Tablet ORAL DAILY Comments: NOT TAKEN Prednisone (Prednisone) 10 MG TABLET 1 Tablet ORAL DAILY Comments: Last Taken: 05/31/16 Time: 9 AM Warfarin Sodium (Coumadin) 5 MG TABLET 1 Tablet ORAL DAILY Instructions: DOSE ACCORDING TO INR Citric Acid/Sodium Citrate (Cytra-2 Oral Solution) 473 ML SOLUTION 15 Milliliters ORAL TWICE DAILY Qty = 473 Comments: PREVIOUSLY NOTED 30ML QAM Last Taken: 01/28/16 Time: 9 AM Ferrous Sulfate (Ferrous Sulfate) 325 MG (65 MG IRON) TABLET 1 Tablet ORAL THREE TIMES DAILY Comments: Last Taken:05/31/16 Time:9AM Carvedilol (Carvedilol) 25 MG TABLET 1 Tablet ORAL TWICE DAILY Comments: Last Taken:05/31/16 Time:9AM Calcitriol (Rocaltrol) 0.25 MCG CAPSULE 1 Capsule ORAL DAILY Comments: Last Taken:05/31/16 Time: 9AM Sevelamer Carbonate (Renvela) 800 MG TABLET 1 Tablet ORAL TIDWM Comments: Last Taken:05/31/16 Time:12PM Tramadol HCl (Tramadol HCl) 50 MG TABLET 1 Tablet ORAL 2 x Daily as needed as needed for PAIN Qty = 180 Vitamin B Complex (B Complex) 1 EACH TABLET 1 Tablet ORAL DAILY Calcium Carbonate/Vitamin D3 (Os-Vishal 500+D3 Caplet) 500 MG-600 TABLET 1 Tablet ORAL THREE TIMES DAILY Comments: Last Taken:05/31/16 Time:9AM Oxycodone HCl/Acetaminophen (Percocet 5-325 MG Tablet) 5 MG-325 MG TABLET 1 Tablet ORAL TWICE DAILY as needed for PAIN Qty = 10 Comments: Last Taken:05/31/16 Time:12PM Insulin Aspart (Novolog) 100 UNIT/ML VIAL Units Inject into fatty tissue BEFORE MEALS AND AT BEDTIME Comments: PER PT MED LIST The following medications have been changed: Old: Insulin Detemir (Levemir) 100 UNIT/ML VIAL 13 Units Inject into fatty tissue DAILY Qty = 10 New: Insulin Detemir (Levemir) 100 UNIT/ML VIAL 13 Units Inject into fatty tissue DAILY QAM Qty = 10 Comments: Last Taken:05/31/16 Time:9AM Copies To: BERNARDA HEATH,SERGEY; SAMARIA HEATH,LIV; GEOFFREY HEATH,IZAIAH Neil; SAMM HEATH,STEW Jarquin; YASMIN HEATH ,OLMAN; PHOENIX HEATH,HONORIO
--- NOTE | 2016-07-05 15:26 | NUR ---
SPEECH THERAPY: ATTEMPTED TO SEE PT FOR DYSPHAGIA TX, PT CURRENTLY UNDERGOING DIALYSIS, UNABLE TO BE SEEN. PER RN, NO COUGHING/DIFFICULTIES NOTED W/ MEALS. ST CONTINUE TO FOLLOW FOR DIET TOLERANCE CLINICALLY INDICATED.
--- NOTE | 2016-07-05 15:54 | PN- Nephrology ---
Assessment/Plan Assessment: 1. ESRD likely secondary to diabetic nephropathy 2. Diabetes mellitus with peripheral vascular disease status post right TMA, status post debridement left ankle ulcer 3. Antiphospholipid antibody syndrome status post DVT Suggestion: 1. Hemodialysis today in progress with 2-3 L ultrafiltration as tolerated over 3.25 hours; URR 71% (adequate) on 07/03; next hemodialysis for Sunday 07/08. 2. Antibiotic therapy per ID 3. Await outpatient dialysis slot 4. No PICC lines 5. Vascular access surgery once infection no longer an issue Subjective Subjective: Patient seen with dialysis. He continues to have discomfort in his left ankle/ foot. URR measured on 07/03 was adequate at 71%. Objective Vital Signs and I&Os Vital Signs Date Time Temp Pulse Resp B/P Pulse O2 O2 Flow FiO2 Ox Delivery Rate 07/05 1119 Room Air Room Air 07/05 1044 97 Room Air Room Air 07/05 08 97.9 82 20 132/64 95 Room Air 07/05 0027 97.5 80 20 136/64 96 Room Air Intake & Output 07/05 1600 07/05 0400 07/04 1600 07/04 0400 07/03 1600 07/03 0400 Intake Total 610 490 675 100 680 870 Output Total 500 300 255 159 7065 Balance 110 190 -225 -100 -3175 870 Intake, IV 10 10 160 170 Intake, Oral 600 480 675 100 520 700 Number 3 1 2 1 1 4 Bowel Movements Output, 3000 Dialysate Output, 5 Drainage Output, Stool 200 Output, Urine 500 300 900 200 650 Patient 184 lb 172 lb 186 lb Weight Physical Exam: General: Well-developed white male in NAD Skin: No rash or jaundice HEENT: Conjunctivae pink, sclerae anicteric, mucous membranes moist Neck: Without masses or thyromegaly, no supraclavicular or cervical adenopathy; there is a right IJ tunneled dialysis catheter in place Chest: Clear to P&A Heart: Regular rate and rhythm without S3 or rub Abdomen: Soft and nontender without palpable masses or organomegaly Extremities: Lower extremity dressing intact, wound VAC in place, +edema Neuro: No focal findings, no asterixis or myoclonus Results Pertinent Lab Results: Laboratory Tests 07/05 07/04 0525 0530 Chemistry Sodium (137 - 145 mmol/L) 132 L 136 L Potassium (3.5 - 5.1 mmol/L) 4.7 4.8 Chloride (98 - 107 mmol/L) 103 105 Carbon Dioxide (22 - 30 mmol/L) 24 25 Anion Gap (5 - 16) 6 5 BUN (9 - 20 mg/dL) 56 H 38 H Creatinine (0.7 - 1.2 mg/dL) 2.6 H 2.0 H Estimated GFR (>60 ml/min) 24 L 33 L BUN/Creatinine Ratio (7 - 25 %) 21.5 19.0 Coagulation PT (9.4 - 12.5 SEC) 30.2 H 37.1 H INR (0.90 - 1.17) 2.91 H 3.58 H Hematology CBC w Diff NO MAN DIFF REQ NO MAN DIFF REQ WBC (4.8 - 10.8 /CUMM) 11.7 H 13.0 H RBC (4.70 - 6.10 /CUMM) 2.96 L 3.25 L Hgb (14.0 - 18.0 G/DL) 8.6 L 9.6 L Hct (42 - 52 %) 28.0 L 31.0 L MCV (80.0 - 94.0 FL) 94.7 H 95.4 H MCH (27.0 - 31.0 PG) 29.2 29.4 RDW (11.5 - 14.5 %) 19.1 H 19.5 H Plt Count (130 - 400 /CUMM) 132 119 L MPV (7.4 - 10.4 FL) 10.1 11.0 H Gran % (42.2 - 75.2 %) 81.0 H 93.2 H Lymphocytes % (20.5 - 51.1 %) 5.6 L 2.1 L Monocytes % (1.7 - 9.3 %) 12.5 H 4.7 Eosinophils % (0 - 5 %) 0.4 0 Basophils % (0.0 - 2.0 %) 0.5 0 L Absolute Granulocytes (1.4 - 6.5 /CUMM) 9.4 H 12.1 H Absolute Lymphocytes (1.2 - 3.4 /CUMM) 0.6 L 0.3 L Absolute Monocytes (0.10 - 0.60 /CUMM) 1.5 H 0.6 Absolute Eosinophils (0.0 - 0.7 /CUMM) 0 0 Absolute Basophils (0.0 - 0.2 /CUMM) 0.1 0 PUBS MCHC (33.0 - 37.0 G/DL) 30.8 L 30.8 L Toxicology Random Vancomycin (ug/ml) 11.6 07 07 07/03 1800 1130 0830 Chemistry Sodium (137 - 145 mmol/L) 137 Potassium (3.5 - 5.1 mmol/L) 4.2 Chloride (98 - 107 mmol/L) 103 Carbon Dioxide (22 - 30 mmol/L) 25 Anion Gap (5 - 16) 8 BUN (9 - 20 mg/dL) 17 58 H Creatinine (0.7 - 1.2 mg/dL) 2.7 H Estimated GFR (>60 ml/min) 23 L BUN/Creatinine Ratio (7 - 25 %) 21.5 Calcium (8.4 - 10.2 mg/dL) 7.7 L Phosphorus (2.5 - 4.5 mg/dL) 3.4 Magnesium (1.6 - 2.3 mg/dL) 1.7 Albumin (3.5 - 5.0 g/dL) 2.7 L Coagulation APTT (25 - 37 SEC) 36 Hematology CBC w Diff NO MAN DIFF REQ WBC (4.8 - 10.8 /CUMM) 15.2 H RBC (4.70 - 6.10 /CUMM) 3.35 L Hgb (14.0 - 18.0 G/DL) 9.8 L Hct (42 - 52 %) 31.6 L MCV (80.0 - 94.0 FL) 94.3 H MCH (27.0 - 31.0 PG) 29.1 RDW (11.5 - 14.5 %) 19.0 H Plt Count (130 - 400 /CUMM) 130 MPV (7.4 - 10.4 FL) 11.1 H Gran % (42.2 - 75.2 %) 88.6 H Lymphocytes % (20.5 - 51.1 %) 3.7 L Monocytes % (1.7 - 9.3 %) 7.4 Eosinophils % (0 - 5 %) 0.2 Basophils % (0.0 - 2.0 %) 0.1 PUBS MCHC (33.0 - 37.0 G/DL) 30.9 L Immunology Absolute Granulocytes (1.4 - 6.5 /CUMM) 13.4 H Absolute Lymphocytes (1.2 - 3.4 /CUMM) 0.6 L Absolute Monocytes (0.10 - 0.60 /CUMM) 1.1 H Absolute Eosinophils (0.0 - 0.7 /CUMM) 0 Absolute Basophils (0.0 - 0.2 /CUMM) 0 Toxicology Random Vancomycin (ug/ml) 7.5 12 12/07 12 0535 0000 1715 Chemistry Sodium (137 - 145 mmol/L) 136 L Potassium (3.5 - 5.1 mmol/L) 4.7 Chloride (98 - 107 mmol/L) 105 Carbon Dioxide (22 - 30 mmol/L) 23 Anion Gap (5 - 16) 8 BUN (9 - 20 mg/dL) 59 H Creatinine (0.7 - 1.2 mg/dL) 2.7 H Estimated GFR (>60 ml/min) 23 L BUN/Creatinine Ratio (7 - 25 %) 21.9 Coagulation PT (9.4 - 12.5 SEC) 38.0 H INR (0.90 - 1.17) 3.67 H APTT (25 - 37 SEC) 93 H 50 H Hematology CBC w Diff NO MAN DIFF REQ WBC (4.8 - 10.8 /CUMM) 14.7 H RBC (4.70 - 6.10 /CUMM) 3.33 L Hgb (14.0 - 18.0 G/DL) 9.8 L Hct (42 - 52 %) 31.5 L MCV (80.0 - 94.0 FL) 94.7 H MCH (27.0 - 31.0 PG) 29.4 RDW (11.5 - 14.5 %) 19.0 H Plt Count (130 - 400 /CUMM) 106 L MPV (7.4 - 10.4 FL) 11.1 H Gran % (42.2 - 75.2 %) 88.7 H Lymphocytes % (20.5 - 51.1 %) 3.0 L Monocytes % (1.7 - 9.3 %) 8.2 Eosinophils % (0 - 5 %) 0 Basophils % (0.0 - 2.0 %) 0.1 PUBS MCHC (33.0 - 37.0 G/DL) 31.1 L Immunology Absolute Granulocytes (1.4 - 6.5 /CUMM) 13.0 H Absolute Lymphocytes (1.2 - 3.4 /CUMM) 0.4 L Absolute Monocytes (0.10 - 0.60 /CUMM) 1.2 H Absolute Eosinophils (0.0 - 0.7 /CUMM) 0 Absolute Basophils (0.0 - 0.2 /CUMM) 0
[2016-07-05 19:02] VITALS: BP 132/80
[2016-07-05 23:00] VITALS: BP 140/58
[2016-07-06 08:09] VITALS: BP 122/70
[2016-07-06 08:11] LABS: ABSOLUTE BASOPHIL COUNT 0 /CUMM (0.0-0.2); ABSOLUTE EOSINOPHIL COUNT 0.1 /CUMM (0.0-0.7); ABSOLUTE GRANULOCYTE CT 8.3 /CUMM (1.4-6.5); ABSOLUTE LYMPH COUNT 0.5 /CUMM (1.2-3.4); ABSOLUTE MONOCYTE COUNT 1.3 /CUMM (0.10-0.60); BASOPHIL % 0.1 % (0.0-2.0); EOSINOPHIL % 0.7 % (0-5); HEMATOCRIT 30.1 % (42-52); MEAN CORPUSCULAR HGB 29.7 PG (27.0-31.0); MEAN CORPUSCULAR VOLUME 95.7 FL (80.0-94.0); MEAN PLATELET VOLUME 10.7 FL (7.4-10.4); PLATELET COUNT 128 /CUMM (130-400); RBC DISTRIBUTION WIDTH 19.2 % (11.5-14.5); RED BLOOD CELL CT 3.15 /CUMM (4.70-6.10); WHITE BLOOD CELL COUNT 10.2 /CUMM (4.8-10.8)
[2016-07-06 08:14] LABS: PT 22.3 SEC (9.4-12.5)
--- NOTE | 2016-07-06 11:38 | PN- Att Addend ---
Attending Addendum Attending Brief Note Patient appears lethargic General Appearance: Lethargic Cardiovascular: Regular Rate, Normal S1, Normal S2, No Murmurs Lungs: Decreased air entry Abdomen: Normal Bowel Sounds, Soft, No Tenderness Neurological: Normal Speech, Strength at 5/5 X4 Ext, Cranial Nerves 3-12 NL, Reflexes 2+ Extremities: Pedal edema, left leg wound Assessment Necrotic ulcer status post debridement on vancomycin. He is currently awaiting for dialysis slot. In the meantime he will undergo inpatient dialysis and complete 7-10 days of vancomycin as per ID evaluation. Plan Continue vancomycin after dialysis Dialysis as per nephro Continue wound care and other meds Short term rehabilitation Current Medications Sig/Kailash Start time Last Medication Dose Route Stop Time Status Admin Acetaminophen 500 MG Q6P PRN 07/02 0815 AC 07/05 PO 0835 Albuterol Sulfate 3 ML Q 3-4 HRS PRN PRN 07/05 1100 AC INH Aspirin 81 MG DAILY 07/01 1000 AC 07/06 PO 1044 Atorvastatin Calcium 40 MG 1700 06/30 1700 AC 07/05 PO 1901 Carvedilol 25 MG BID 06/30 2200 AC 07/06 PO 1045 Diphenoxylate HCl/ 2.5 MG TID PRN 06/30 1200 AC 07/04 Atropine PO 2052 Epoetin Ludwig 6,000 UNIT PER PROTOCL PRN 07/01 1430 AC IV Insulin Aspart 0 TIDAC/HS 06/30 2100 AC 07/06 SC 0818 Insulin Detemir 6 UNITS DAILY 07/06 1000 AC 07/06 SC 1046 Insulin Detemir 6 UNITS BID 07/03 2200 DC 07/05 SC 2149 Iron Sucrose 100 MG PER PROTOCL PRN 07/01 1430 AC 07/03 Sodium Chloride 100 ML IV 1221 Multivitamins 1 TAB DAILY 07/01 1000 AC 07/06 PO 1045 Oxycodone/ 2 TAB Q6P PRN 07/05 1115 AC 07/06 Acetaminophen PO 1046 Oxycodone/ 1 TAB Q6P PRN 07/05 1115 AC 07/05 Acetamin[place] PO 1123 Prednisone 10 MG DAILY 07/05 1000 AC 07/06 PO 1045 Sevelamer Carbonate 800 MG WITH MEALS 06/30 1200 AC 07/06 PO 0818 Sodium Hypochlorite 1 CHAITANYA BID 07/05 1113 AC 07/06 TOP 1052 Tamsulosin HCl 0.4 MG DAILY 07/01 1000 AC 07/06 PO 1045 Vancomycin HCl 1,000 MG ONCE ONE 07/05 1800 DC Sodium Chloride 250 ML IV 07/05 1859 Vancomycin HCl 1 MG DAILY PRN 07/01 1300 AC 07/04 Dextrose/Water 250 ML IV 1116 Vitamin A/Vitamin D 1 CHAITANYA BID 06/30 2200 AC 07/06 TOP 1100 Warfarin Sodium 4 MG ONCE ONE 07/05 1700 DC 07/05 PO 07/05 1701 1902 Zinc Oxide 1 CHAITANYA BID 06/30 2200 AC 07/06 TOP 1100 Laboratory Tests 07/06 0630 Chemistry Sodium (137 - 145 mmol/L) 137 Potassium (3.5 - 5.1 mmol/L) 5.0 Chloride (98 - 107 mmol/L) 103 Carbon Dioxide (22 - 30 mmol/L) 27 Anion Gap (5 - 16) 7 BUN (9 - 20 mg/dL) 37 H Creatinine (0.7 - 1.2 mg/dL) 2.0 H Estimated GFR (>60 ml/min) 33 L BUN/Creatinine Ratio (7 - 25 %) 18.5 Coagulation PT (9.4 - 12.5 SEC) 22.3 H INR (0.90 - 1.17) 2.14 H Hematology CBC w Diff NO MAN DIFF REQ WBC (4.8 - 10.8 /CUMM) 10.2 RBC (4.70 - 6.10 /CUMM) 3.15 L Hgb (14.0 - 18.0 G/DL) 9.3 L Hct (42 - 52 %) 30.1 L MCV (80.0 - 94.0 FL) 95.7 H MCH (27.0 - 31.0 PG) 29.7 RDW (11.5 - 14.5 %) 19.2 H Plt Count (130 - 400 /CUMM) 128 L MPV (7.4 - 10.4 FL) 10.7 H Gran % (42.2 - 75.2 %) 81.0 H Lymphocytes % (20.5 - 51.1 %) 5.1 L Monocytes % (1.7 - 9.3 %) 13.1 H Eosinophils % (0 - 5 %) 0.7 Basophils % (0.0 - 2.0 %) 0.1 Absolute Granulocytes (1.4 - 6.5 /CUMM) 8.3 H Absolute Lymphocytes (1.2 - 3.4 /CUMM) 0.5 L Absolute Monocytes (0.10 - 0.60 /CUMM) 1.3 H Absolute Eosinophils (0.0 - 0.7 /CUMM) 0.1 Absolute Basophils (0.0 - 0.2 /CUMM) 0 PUBS MCHC (33.0 - 37.0 G/DL) 31.0 L Vital Signs Date Time Temp Pulse Resp B/P Pulse O2 O2 Flow FiO2 Ox Delivery Rate 07/06 1045 86 122/70 07/06 1045 86 122/70 07/06 0809 97.6 86 20 122/70 95 Room Air 07/05 2300 98.3 80 20 140/58 93 Room Air 07/05 1902 97.7 100 20 132/80 97 Room Air 07/05 1901 132/80
--- NOTE | 2016-07-06 12:20 | PN- Housestaff ---
Subjective Follow-up For: Chronic nonhealing ulcer of left calf ESRD T2DM Tele-Events Since Last Visit: GM hold Subjective: Patient seen and examined at bedside. He reports feeling well with no acute complaints. No acute events overnight. Review of Systems Constitutional: Denies: chills, diaphoresis, fever. Comments: Cardiovascular: Denies: chest pain. Respiratory: Denies: short of breath. Gastrointestinal: Denies: abdominal pain, constipation, diarrhea, nausea, vomiting. Objective Last 24 Hrs of Vital Signs/I&O Vital Signs Date Time Temp Pulse Resp B/P Pulse O2 O2 Flow FiO2 Ox Delivery Rate 07/06 1210 94 Room Air 07/06 1045 86 122/70 07/06 1045 86 122/70 07/06 0809 97.6 86 20 122/70 95 Room Air 07/05 2300 98.3 80 20 140/58 93 Room Air 07/05 1902 97.7 100 20 132/80 97 Room Air 07/05 1901 132/80 Intake & Output 07/06 1600 07/06 0800 07/06 0000 Intake Total 300 240 Output Total 200 250 Balance 100 -10 Intake, Oral 300 240 Output, Urine 200 250 Patient 80.286 kg Weight Physical Exam General Appearance: Alert, Oriented X3, Cooperative, No Acute Distress Other Physical Findings: Skin: Scattered Petechia and Purpura on Trunk and Extremities HEENT: Mucous Membr. moist/pink Neck: Mj Cath In Place at [facility] with No Inflammation at the Site Cardiovascular: Regular Rate, Normal S1, Normal S2 Lungs: Clear to Auscultation, Normal Air Movement Abdomen: Soft, No Tenderness, Positive Bowel Sounds Extremities: No Clubbing, No Cyanosis, No Edema, Left Leg Dressing and Wound VAC In Place Current Medications: Current Medications Sig/Kailash Start time Last Medication Dose Route Stop Time Status Admin Acetaminophen 500 MG Q6P PRN 07/02 0815 AC 07/05 PO 0835 Albuterol Sulfate 3 ML Q 3-4 HRS PRN PRN 07/05 1100 AC INH Aspirin 81 MG DAILY 07/01 1000 AC 07/06 PO 1044 Atorvastatin Calcium 40 MG 1700 06/30 1700 AC 07/05 PO 190 Carvedilol 25 MG BID 06/30 2200 AC 07/06 PO 104 Diphenoxylate HCl/ 2.5 MG TID PRN 06/30 1200 AC 12/08 Atropine PO 205 Epoetin Ludwig 6,000 UNIT PER PROTOCL PRN 07/01 1430 AC IV Insulin Aspart 0 TIDAC/HS 06/30 2100 AC 07/06 SC 0818 Insulin Detemir 6 UNITS DAILY 07/06 1000 AC 07/06 SC 1046 Insulin Detemir 6 UNITS BID 07/03 2200 DC 07/05 SC 2149 Iron Sucrose 100 MG PER PROTOCL PRN 07/01 1430 AC 07/03 Sodium Chloride 100 ML IV 1221 Multivitamins 1 TAB DAILY 07/01 1000 AC 07/06 PO 1045 Oxycodone/ 2 TAB Q6P PRN 07/05 1115 AC 07/06 Acetaminophen PO 1046 Oxycodone/ 1 TAB Q6P PRN 07/05 1115 AC 07/05 Acetaminophen PO 1123 Prednisone 10 MG DAILY 07/05 1000 AC 07/06 PO 1045 Sevelamer Carbonate 800 MG WITH MEALS 06/30 1200 AC 07/06 PO 0818 Sodium Hypochlorite 1 CHAITANYA BID 07/05 1113 AC 07/06 TOP 1052 Tamsulosin HCl 0.4 MG DAILY 07/01 1000 AC 07/06 PO 1045 Vancomycin HCl 1,000 MG ONCE ONE 07/05 1800 DC Sodium Chloride 250 ML IV 07/05 1859 Vancomycin HCl 1 MG DAILY PRN 07/01 1300 AC 07/04 Dextrose/Water 250 ML IV 1116 Vitamin A/Vitamin D 1 CHAITANYA BID 06/30 2200 AC 07/06 TOP 1100 Warfarin Sodium 4 MG ONCE ONE 07/05 1700 DC 07/05 PO 07/05 1701 1902 Zinc Oxide 1 CHAITANYA BID 06/30 2200 AC 07/06 TOP 1100 Last 24 Hrs of Lab/Avtar Results Last 24 Hrs of Labs/Mics: Laboratory Tests 07/06/16 0630: Anion Gap 7, Estimated GFR 33 L, BUN/Creatinine Ratio 18.5, PT 22.3 H, INR 2.14 H, CBC w Diff NO MAN DIFF REQ, RBC 3.15 L, MCV 95.7 H, MCH 29.7, RDW 19.2 H, MPV 10.7 H, Gran % 81.0 H, Lymphocytes % 5.1 L, Monocytes % 13.1 H, Eosinophils % 0.7, Basophils % 0.1, Absolute Granulocytes 8.3 H, Absolute Lymphocytes 0.5 L, Absolute Monocytes 1.3 H, Absolute Eosinophils 0.1, Absolute Basophils 0, PUBS MCHC 31.0 L Assessment/Plan Assessment: 75 y/o M with PMHx of antiphospholipid antibody syndrome, diabetes and CKD who presented with SOB, hoarseness and stridor, found to be uremic with initiation of HD, s/p debridement of chronic left leg ulcer, on IV vancomycin for soft tissue infection, currently awaiting outpatient dialysis slot. #Chronic left lower extremity ulcer: Has chronic nonhealing ulcers of left leg for which he sees Dr. Pretty as outpatient. S/p excisional debridement through the subcutaneous and muscular tissue with reported seropurulent drainage (06/30) and OR cultures growing dipthteroids and coag-negative Staph. Although these are not typically pathogenic organisms, currently on IV vancomycin for possible soft tissue infection. Patient's vancomycin dose which was supposed to be administered on 07/03 after dialysis, was administered yesterday. Wound appears improved, however patient complains of severe pain concerning for ischemia. 07/06: Per nursing staff patient was never given the vanc dose during the dialysis on Friday (07/05/16) and he currently has no IV access through which we can give vancomycin. Dr. Harden was made aware. He recommended that we check his vanc level on Friday (07/08). * ID following. Appreciate their recs. * Continue vancomycin per dialysis protocol to plan for a 7-10 day course. * Vascular surgery following. Appreciate further evaluation regarding the vascular supply of left leg. #Antiphospholipid antibody syndrome: S/p post right upper extremity DVT. On life -long anti-coagulation with warfarin, takes 5 mg PO QD. * Continue to check INR daily and dose warfarin accordingly to keep INR between 2-3. * INR 2.14 today. Will administer 5 mg of warfarin this evening. #ESRD: Cr was 5 on admission, with gradual increase from 2-3 within the past year. Most likely etiology is progressive diabetic nephropathy. Mj cath was placed and urgent hemodialysis was initiated (06/26) with improvement of mental status. Patient is currently awaiting outpatient dialysis slot. Status post hemodialysis on 07/05 with 2-3 L ultrafiltration as tolerated over 3.25 hours, next hemodialysis for Sunday 07/08. * Nephrology following. Appreciate their recs. * Continue HD MWF. * No PICC lines should be inserted per Nephrology, as patient will need vein site for placement of graft. * Continue sevelamer 800 mg PO TIDAC. * Continue daily Nephrocaps. #T2DM: Uncontrolled blood sugars this admission, secondary to steroids. * Endocrinology following. Appreciate their recs. * Continue Levemir 6U SQ BID. * Continue NovoLog SSI TIDAC: 80-150 give 4 units, 151-200 give 6 units, 201-250 give 8 units, 251-300 give 10 units, 301-350 give 12 units and 351-400 give 14 units and NovoLog SSI QHS: 251-300 give 3 units, 301-350 give 4 units, 351-400 give 5 units. #HTN: Takes amlodipine 10 mg PO QD, carvedilol 25 mg PO BID, furosemide 80 mg PO BID and hydralazine 50 mg PO BID at home. * Holding home amlodipine, furosemide and hydralazine. * Continue home carvedilol. #Crohn's disease: Patient has been taking prednisone 10 mg PO QD for many years to prevent flares. * Continue home prednisone Diet: Renal Dialysis Diet (regular and nectar thick liquids) DVT PPx: Warfarin and ALPs CODE: FULL Problem List: 1. ACUTE RENAL FAILURE 2. Cellulitis of leg, excluding foot 3. Deep venous thrombosis 4. NEPHROLITHIASIS 5. Supratherapeutic INR 6. Closed fracture of left hip with malunion 7. Gait disturbance 8. Diabetes mellitus 9. CKD (chronic kidney disease) 10. Elevated troponin 11. Swelling of right upper extremity 12. Acute blood loss anemia 13. Anemia 14. Fever 15. TIA (transient ischemic attack) 16. Hypoglycemia 17. Chest pain 18. Supratherapeutic INR 19. Cellulitis of leg, right 20. Hyperkalemia 21. Hyponatremia 22. CRI (chronic renal insufficiency) 23. Chronic deep vein thrombosis (DVT) 24. Cellulitis 25. Lethargy 26. Acute on chronic kidney failure 27. Right ankle sprain 28. Cellulitis of left lower leg 29. Wound infection 30. Crohn disease 31. DVT prophylaxis 32. Full code status 33. Antiphospholipid antibody syndrome 34. Leukocytosis 35. NSTEMI (non-ST elevated myocardial infarction) 36. Left leg cellulitis 37. End stage renal disease 38. Supraglottic edema 39. Elevated troponin 40. Antiphospholipid antibody syndrome 41. Chronic ulcer of left lower extremity 42. Type 2 diabetes mellitus 43. Bilateral vocal cord paralysis 44. Peripheral vascular disease 45. Crohns disease Pain Ratin Pain Location: 0 Pain Goal: Pain 4 or less Pain Plan: Tylenol 500 mg PO Q6H PRN for moderate pain (scale 4-6) Percocet 1 tab PO Q6H PRN for moderate pain (scale 4-6) Percocet 2 tab PO Q6H PRN for severe pain (scale 7-10) Tomorrow's Labs & Rationales: CBC to monitor WBC in the setting of soft tissue infection of left calf BMP to monitor to lytes in the setting of ESRD on HD INR in the setting of anti-coagulation with warfarin Consulting Request: Consulting Specialty: Otorhinolaryngology
[2016-07-06 14:00] VITALS: BP 119/62
--- NOTE | 2016-07-06 14:04 | PN- Diabetes ---
Assessment/Plan Assessment: Patient has type 2 diabetes which was being aggravated by high-dose steroid therapy. He has no stridor at present. Dexamethasone was stopped and the patient is on prednisone 10 mg daily which apparently is his usual dose which he takes for his Crohn's disease. Fingerstick blood sugars were 174, 131, 182, 172, 106 and 107. Plan: 1. decrease Levemir to 6 units daily; 2. continue the current Novolog coverage before meals and Novolog coverage at bedtime; 3. monitor FSGs. will follow. Subjective Subjective: Patient didn't have special complaints in the morning. Objective Last 24 Hrs of Vital Signs/I&O Vital Signs Date Time Temp Pulse Resp B/P Pulse O2 O2 Flow FiO2 Ox Delivery Rate 07/06 1210 94 Room Air 07/06 1045 86 122/70 07/06 1045 86 122/70 07/06 0809 97.6 86 20 122/70 95 Room Air 07/05 2300 98.3 80 20 140/58 93 Room Air 07/05 1902 97.7 100 20 132/80 97 Room Air 07/05 1901 132/80 Intake & Output 07/06 1600 07/06 0800 07/06 0000 Intake Total 300 240 Output Total 200 250 Balance 100 -10 Intake, Oral 300 240 Output, Urine 200 250 Patient 177 lb Weight Findings Pertinent Lab/Avtar Results: Laboratory Tests 07/06 0630 Chemistry Sodium (137 - 145 mmol/L) 137 Potassium (3.5 - 5.1 mmol/L) 5.0 Chloride (98 - 107 mmol/L) 103 Carbon Dioxide (22 - 30 mmol/L) 27 Anion Gap (5 - 16) 7 BUN (9 - 20 mg/dL) 37 H Creatinine (0.7 - 1.2 mg/dL) 2.0 H Estimated GFR (>60 ml/min) 33 L BUN/Creatinine Ratio (7 - 25 %) 18.5 Coagulation PT (9.4 - 12.5 SEC) 22.3 H INR (0.90 - 1.17) 2.14 H Hematology CBC w Diff NO MAN DIFF REQ WBC (4.8 - 10.8 /CUMM) 10.2 RBC (4.70 - 6.10 /CUMM) 3.15 L Hgb (14.0 - 18.0 G/DL) 9.3 L Hct (42 - 52 %) 30.1 L MCV (80.0 - 94.0 FL) 95.7 H MCH (27.0 - 31.0 PG) 29.7 RDW (11.5 - 14.5 %) 19.2 H Plt Count (130 - 400 /CUMM) 128 L MPV (7.4 - 10.4 FL) 10.7 H Gran % (42.2 - 75.2 %) 81.0 H Lymphocytes % (20.5 - 51.1 %) 5.1 L Monocytes % (1.7 - 9.3 %) 13.1 H Eosinophils % (0 - 5 %) 0.7 Basophils % (0.0 - 2.0 %) 0.1 Absolute Granulocytes (1.4 - 6.5 /CUMM) 8.3 H Absolute Lymphocytes (1.2 - 3.4 /CUMM) 0.5 L Absolute Monocytes (0.10 - 0.60 /CUMM) 1.3 H Absolute Eosinophils (0.0 - 0.7 /CUMM) 0.1 Absolute Basophils (0.0 - 0.2 /CUMM) 0 PUBS MCHC (33.0 - 37.0 G/DL) 31.0 L
[2016-07-06 15:41] VITALS: BP 119/62
[2016-07-06 23:00] VITALS: BP 122/60
[2016-07-07 08:11] VITALS: BP 122/68
[2016-07-07 08:33] LABS: ABSOLUTE BASOPHIL COUNT 0 /CUMM (0.0-0.2); ABSOLUTE EOSINOPHIL COUNT 0.1 /CUMM (0.0-0.7); ABSOLUTE GRANULOCYTE CT 7.8 /CUMM (1.4-6.5); ABSOLUTE LYMPH COUNT 0.5 /CUMM (1.2-3.4); ABSOLUTE MONOCYTE COUNT 1.2 /CUMM (0.10-0.60); BASOPHIL % 0.2 % (0.0-2.0); EOSINOPHIL % 1.5 % (0-5); HEMATOCRIT 31.2 % (42-52); MEAN CORPUSCULAR HGB 29.6 PG (27.0-31.0); MEAN CORPUSCULAR HGB CONC 31.3 G/DL (33.0-37.0); MEAN CORPUSCULAR VOLUME 94.6 FL (80.0-94.0); PLATELET COUNT 129 /CUMM (130-400); RBC DISTRIBUTION WIDTH 18.8 % (11.5-14.5); WHITE BLOOD CELL COUNT 9.7 /CUMM (4.8-10.8)
--- NOTE | 2016-07-07 11:11 | PN- Att Addend ---
Attending Addendum Attending Brief Note Patient complains of left leg pain. General Appearance: Lethargic Cardiovascular: Regular Rate, Normal S1, Normal S2, No Murmurs Lungs: Decreased air entry Abdomen: Normal Bowel Sounds, Soft, No Tenderness Neurological: Normal Speech, Strength at 5/5 X4 Ext, Cranial Nerves 3-12 NL, Reflexes 2+ Extremities: Pedal edema, left leg wound Assessment Necrotic ulcer status post debridement on vancomycin. He is currently awaiting for dialysis slot. In the meantime he will undergo inpatient dialysis and complete 7-10 days of vancomycin as per ID evaluation. Plan Vanco trough less than 10, adjust dose as per ID recommendations Dialysis as per nephro Continue wound care and other meds Short term rehabilitation Current Medications Sig/Kailash Start time Last Medication Dose Route Stop Time Status Admin Acetaminophen 500 MG Q6P PRN 07/02 0815 AC 07/07 PO 0826 Albuterol Sulfate 3 ML Q 3-4 HRS PRN PRN 07/05 1100 AC INH Aspirin 81 MG DAILY 07/01 1000 AC 07/07 PO 1057 Atorvastatin Calcium 40 MG 1700 06/30 1700 AC 07/06 PO 1744 Carvedilol 25 MG BID 06/30 2200 AC 07/07 PO 1057 Diphenoxylate HCl/ 2.5 MG TID PRN 06/30 1200 AC 07/07 Atropine PO 1057 Epoetin Ludwig 6,000 UNIT PER PROTOCL PRN 07/01 1430 AC IV Insulin Aspart 0 TIDAC/HS 06/30 2100 AC 07/07 SC 0826 Insulin Detemir 6 UNITS DAILY 07/06 1000 AC 07/07 SC 1056 Iron Sucrose 100 MG PER PROTOCL PRN 07/01 1430 AC 07/03 Sodium Chloride 100 ML IV 1221 Multivitamins 1 TAB DAILY 07/01 1000 AC 07/07 PO 1057 Oxycodone/ 2 TAB Q6P PRN 07/05 1115 AC 07/07 Acetaminophen PO 0635 Oxycodone/ 1 TAB Q6P PRN 07/05 1115 AC 07/05 Acetamin[place] PO 1123 Prednisone 10 MG DAILY 07/05 1000 AC 07/07 PO 1057 Sevelamer Carbonate 800 MG WITH MEALS 06/30 1200 AC 07/07 PO 0826 Sodium Hypochlorite 1 CHAITANYA BID 07/05 1113 AC 07/07 TOP 1102 Tamsulosin HCl 0.4 MG DAILY 07/01 1000 AC 07/07 PO 1057 Vancomycin HCl 1 MG DAILY PRN 07/01 1300 AC 07/04 Dextrose/Water 250 ML IV 1116 Vitamin A/Vitamin D 1 CHAITANYA BID 06/30 2200 AC 07/07 TOP 1101 Warfarin Sodium 5 MG COUMADIN 1700 ONE 07/06 1700 DC 07/06 PO 07/06 1701 1745 Zinc Oxide 1 CHAITANYA BID 06/30 2200 AC 07/07 TOP 1101 Laboratory Tests 07/07 0718 Chemistry Sodium (137 - 145 mmol/L) 137 Potassium (3.5 - 5.1 mmol/L) 5.1 Chloride (98 - 107 mmol/L) 103 Carbon Dioxide (22 - 30 mmol/L) 26 Anion Gap (5 - 16) 8 BUN (9 - 20 mg/dL) 53 H Creatinine (0.7 - 1.2 mg/dL) 3.0 H Estimated GFR (>60 ml/min) 21 L BUN/Creatinine Ratio (7 - 25 %) 17.7 Coagulation PT (9.4 - 12.5 SEC) 25.0 H INR (0.90 - 1.17) 2.40 H Hematology CBC w Diff NO MAN DIFF REQ WBC (4.8 - 10.8 /CUMM) 9.7 RBC (4.70 - 6.10 /CUMM) 3.30 L Hgb (14.0 - 18.0 G/DL) 9.8 L Hct (42 - 52 %) 31.2 L MCV (80.0 - 94.0 FL) 94.6 H MCH (27.0 - 31.0 PG) 29.6 RDW (11.5 - 14.5 %) 18.8 H Plt Count (130 - 400 /CUMM) 129 L MPV (7.4 - 10.4 FL) 11.0 H Gran % (42.2 - 75.2 %) 81.0 H Lymphocytes % (20.5 - 51.1 %) 5.0 L Monocytes % (1.7 - 9.3 %) 12.3 H Eosinophils % (0 - 5 %) 1.5 Basophils % (0.0 - 2.0 %) 0.2 Absolute Granulocytes (1.4 - 6.5 /CUMM) 7.8 H Absolute Lymphocytes (1.2 - 3.4 /CUMM) 0.5 L Absolute Monocytes (0.10 - 0.60 /CUMM) 1.2 H Absolute Eosinophils (0.0 - 0.7 /CUMM) 0.1 Absolute Basophils (0.0 - 0.2 /CUMM) 0 PUBS MCHC (33.0 - 37.0 G/DL) 31.3 L Vital Signs Date Time Temp Pulse Resp B/P Pulse O2 O2 Flow FiO2 Ox Delivery Rate 07/07 1057 122/68 07/07 1057 122/68 07/07 0811 98.3 90 20 122/68 91 Room Air 07/06 2300 98.2 82 20 122/60 96 Room Air 07/06 2202 82 122/60 07/06 1541 98.1 74 18 119/62 95 Room Air 07/06 1400 98.0 74 18 119/62 95 Room Air 07/06 1210 94 Room Air
--- NOTE | 2016-07-07 11:32 | PN- Diabetes ---
Assessment/Plan Assessment: Patient has type 2 diabetes which was being aggravated by high-dose steroid therapy. He has no stridor at present. Dexamethasone was stopped and the patient is on prednisone 10 mg daily which apparently is his usual dose which he takes for his Crohn's disease. Levemir was decreased to 6 units daily. He is on Novolog coverage before meals and Novolog at bedtime. Fingerstick blood sugars were 107, 156, 166 and 162. His Cr is 3.0. Plan: 1. continue the current insulin regimen for now--- Levemir 6 units daily, Novolog coverage before meals and Novolog coverage at bedtime. 2. monitor FSGs. will follow. Subjective Subjective: He feels okay. Objective Last 24 Hrs of Vital Signs/I&O Vital Signs Date Time Temp Pulse Resp B/P Pulse O2 O2 Flow FiO2 Ox Delivery Rate 07/07 1057 122/68 07/07 1057 122/68 07/07 0811 98.3 90 20 122/68 91 Room Air 07/06 2300 98.2 82 20 122/60 96 Room Air 07/06 2202 82 122/60 07/06 1541 98.1 74 18 119/62 95 Room Air 07/06 1400 98.0 74 18 119/62 95 Room Air 07/06 1210 94 Room Air Intake & Output 07/07 1600 07/07 0800 07/07 0000 Intake Total 300 400 Output Total 300 400 Balance 0 0 Intake, Oral 300 400 Number 1 1 Bowel Movements Output, Urine 300 400 Patient 179 lb Weight Findings Pertinent Lab/[facility]tar Results: Laboratory Tests 07/07 0718 Chemistry Sodium (137 - 145 mmol/L) 137 Potassium (3.5 - 5.1 mmol/L) 5.1 Chloride (98 - 107 mmol/L) 103 Carbon Dioxide (22 - 30 mmol/L) 26 Anion Gap (5 - 16) 8 BUN (9 - 20 mg/dL) 53 H Creatinine (0.7 - 1.2 mg/dL) 3.0 H Estimated GFR (>60 ml/min) 21 L BUN/Creatinine Ratio (7 - 25 %) 17.7 Coagulation PT (9.4 - 12.5 SEC) 25.0 H INR (0.90 - 1.17) 2.40 H Hematology CBC w Diff NO MAN DIFF REQ WBC (4.8 - 10.8 /CUMM) 9.7 RBC (4.70 - 6.10 /CUMM) 3.30 L Hgb (14.0 - 18.0 G/DL) 9.8 L Hct (42 - 52 %) 31.2 L MCV (80.0 - 94.0 FL) 94.6 H MCH (27.0 - 31.0 PG) 29.6 RDW (11.5 - 14.5 %) 18.8 H Plt Count (130 - 400 /CUMM) 129 L MPV (7.4 - 10.4 FL) 11.0 H Gran % (42.2 - 75.2 %) 81.0 H Lymphocytes % (20.5 - 51.1 %) 5.0 L Monocytes % (1.7 - 9.3 %) 12.3 H Eosinophils % (0 - 5 %) 1.5 Basophils % (0.0 - 2.0 %) 0.2 Absolute Granulocytes (1.4 - 6.5 /CUMM) 7.8 H Absolute Lymphocytes (1.2 - 3.4 /CUMM) 0.5 L Absolute Monocytes (0.10 - 0.60 /CUMM) 1.2 H Absolute Eosinophils (0.0 - 0.7 /CUMM) 0.1 Absolute Basophils (0.0 - 0.2 /CUMM) 0 PUBS MCHC (33.0 - 37.0 G/DL) 31.3 L
--- NOTE | 2016-07-07 11:47 | PN- Housestaff ---
Subjective Follow-up For: Chronic nonhealing ulcer of left calf ESRD T2DM Subjective: No acute events overnight. Patient seen and examined this morning. He continues to complain of left leg pain. Review of Systems Constitutional: Denies: chills, fever. Cardiovascular: Denies: chest pain. Respiratory: Denies: cough, short of breath. Gastrointestinal: Denies: abdominal pain, constipation, diarrhea, nausea, vomiting. Objective Last 24 Hrs of Vital Signs/I&O Vital Signs Date Time Temp Pulse Resp B/P Pulse O2 O2 Flow FiO2 Ox Delivery Rate 07/07 1057 122/68 07/07 1057 122/68 07/07 0811 98.3 90 20 122/68 91 Room Air 07/06 2300 98.2 82 20 122/60 96 Room Air 07/06 2202 82 122/60 07/06 1541 98.1 74 18 119/62 95 Room Air Intake & Output 07/07 1600 07/07 0800 07/07 0000 Intake Total 240 300 400 Output Total 250 300 400 Balance -10 0 0 Intake, Oral 240 300 400 Number 2 1 1 Bowel Movements Output, Urine 250 300 400 Patient 81.193 kg Weight Physical Exam General Appearance: Alert, Oriented X3, No Acute Distress Skin: Scattered Petechiae and Purpura on Trunk and Extremities HEENT: Mucous Membr. moist/pink Neck: Mj Cath in Place at [facility] with No Inflammation At the Site Cardiovascular: Regular Rate, Normal S1, Normal S2, No Murmurs, Gallops, Rubs Lungs: Clear to Auscultation, Normal Air Movement Abdomen: Soft, No Tenderness, Positive Bowel Sounds Extremities: No Clubbing, No Cyanosis, No Edema, Left Leg Dressing and Wound VAC In Place Current Medications: Current Medications Sig/Kailash Start time Last Medication Dose Route Stop Time Status Admin Acetaminophen 500 MG Q6P PRN 07/02 0815 AC 07/07 PO 0826 Albuterol Sulfate 3 ML Q 3-4 HRS PRN PRN 07/05 1100 AC INH Aspirin 81 MG DAILY 07/01 1000 AC 07/07 PO 1057 Atorvastatin Calcium 40 MG 1700 06/30 1700 AC 07/06 PO 1744 Carvedilol 25 MG BID 06/30 2200 AC 07/07 PO 1057 Diphenoxylate HCl/ 2.5 MG TID PRN 06/30 1200 DC 07/07 Atropine PO 1057 Epoetin Ludwig 6,000 UNIT PER PROTOCL PRN 07/01 1430 AC IV Insulin Aspart 0 TIDAC/HS 06/30 2100 AC 07/07 SC 1236 Insulin Detemir 6 UNITS DAILY 07/06 1000 AC 07/07 SC 1056 Iron Sucrose 100 MG PER PROTOCL PRN 07/01 1430 AC 07/03 Sodium Chloride 100 ML IV 1221 Multivitamins 1 TAB DAILY 07/01 1000 AC 07/07 PO 1057 Oxycodone/ 2 TAB Q6P PRN 07/05 1115 AC 07/07 Acetaminophen PO 1245 Oxycodone/ 1 TAB Q6P PRN 07/05 1115 AC 07/05 Acetaminophen PO 1123 Prednisone 10 MG DAILY 07/05 1000 AC 07/07 PO 1057 Sevelamer Carbonate 800 MG WITH MEALS 06/30 1200 AC 07/07 PO 1237 Sodium Hypochlorite 1 CHAITANYA BID 07/05 1113 AC 07/07 TOP 1102 Tamsulosin HCl 0.4 MG DAILY 07/01 1000 AC 07/07 PO 1057 Vancomycin HCl 1 MG DAILY PRN 07/01 1300 AC 07/04 Dextrose/Water 250 ML IV 1116 Vitamin A/Vitamin D 1 CHAITANYA BID 06/30 2200 AC 07/07 TOP 1101 Warfarin Sodium 5 MG COUMADIN 1700 ONE 07/07 1700 AC PO 07/07 1701 Warfarin Sodium 5 MG COUMADIN 1700 ONE 07/06 1700 DC 12 PO 07/06 1701 1745 Zinc Oxide 1 CHAITANYA BID 06/30 2200 AC 07/07 TOP 1101 Last 24 Hrs of Lab/Avtar Results Last 24 Hrs of Labs/Mics: Laboratory Tests 07/07/16 0718: Anion Gap 8, Estimated GFR 21 L, BUN/Creatinine Ratio 17.7, PT 25.0 H, INR 2.40 H, CBC w Diff NO MAN DIFF REQ, RBC 3.30 L, MCV 94.6 H, MCH 29.6, RDW 18.8 H, MPV 11.0 H, Gran % 81.0 H, Lymphocytes % 5.0 L, Monocytes % 12.3 H, Eosinophils % 1.5, Basophils % 0.2, Absolute Granulocytes 7.8 H, Absolute Lymphocytes 0.5 L, Absolute Monocytes 1.2 H, Absolute Eosinophils 0.1, Absolute Basophils 0, PUBS MCHC 31.3 L Assessment/Plan Assessment: 75 y/o M with PMHx of antiphospholipid antibody syndrome, diabetes and CKD who presented with SOB, hoarseness and stridor, found to be uremic with initiation of HD, s/p debridement of chronic left leg ulcer, on IV vancomycin for soft tissue infection, currently awaiting outpatient dialysis slot. #Chronic left lower extremity ulcer: Has chronic nonhealing ulcers of left leg for which he sees Dr. Pretty as outpatient. S/p excisional debridement through the subcutaneous and muscular tissue with reported seropurulent drainage (06/30) and OR cultures growing diphthteroids and coag-negative Staph. Although these are not typically pathogenic organisms, currently on IV vancomycin for possible soft tissue infection. Patient's scheduled vancomycin dose on 07/05 was inadvertently not administered and cannot be administered until next session of dialysis as patient has no IV access. Vancomycin level subtherapeutic at 9.2 yesterday. Wound appears improved, however patient complains of severe pain concerning for ischemia. * ID following. Appreciate their recs. * Continue vancomycin per dialysis protocol to plan for a 7-10 day course. * Vascular surgery following. Appreciate further evaluation regarding the vascular supply of left leg. * Will check random vancomycin level tomorrow morning and dose vancomycin accordingly. #Antiphospholipid antibody syndrome: S/p post right upper extremity DVT. On life -long anti-coagulation with warfarin, takes 5 mg PO QD. * Continue to check INR daily and dose warfarin accordingly to keep INR between 2-3. * INR 2.40 today. Will administer 5 mg of warfarin this evening. #ESRD: Cr was 5 on admission, with gradual increase from 2-3 within the past year. Most likely etiology is progressive diabetic nephropathy. Mj cath was placed and urgent hemodialysis was initiated (06/26) with improvement of mental status. Patient is currently awaiting outpatient dialysis slot. Status post hemodialysis on 07/05 with 2-3 L ultrafiltration as tolerated over 3.25 hours, next hemodialysis for Sunday 07/08. * Nephrology following. Appreciate their recs. * Continue HD MWF. * No PICC lines should be inserted per Nephrology, as patient will need vein site for placement of graft. * Continue sevelamer 800 mg PO TIDAC. * Continue daily Nephrocaps. #T2DM: Uncontrolled blood sugars this admission, secondary to steroids. * Endocrinology following. Appreciate their recs. * Continue Levemir 6U SQ BID. * Continue NovoLog SSI TIDAC: 80-150 give 4 units, 151-200 give 6 units, 201-250 give 8 units, 251-300 give 10 units, 301-350 give 12 units and 351-400 give 14 units and NovoLog SSI QHS: 251-300 give 3 units, 301-350 give 4 units, 351-400 give 5 units. #HTN: Takes amlodipine 10 mg PO QD, carvedilol 25 mg PO BID, furosemide 80 mg PO BID and hydralazine 50 mg PO BID at home. * Holding home amlodipine, furosemide and hydralazine. * Continue home carvedilol. #Crohn's disease: Patient has been taking prednisone 10 mg PO QD for many years to prevent flares. * Continue home prednisone. Diet: Renal Dialysis Diet (regular and nectar thick liquids) DVT PPx: Warfarin and ALPs CODE: FULL Problem List: 1. End stage renal disease 2. Antiphospholipid antibody syndrome 3. Chronic ulcer of left lower extremity 4. Type 2 diabetes mellitus 5. Crohns disease 6. Wound infection Pain Ratin Pain Location: Left leg Pain Goal: Remain pain free Pain Plan: Percocet 2 tabs PO Q6H for severe pain (scale 7-10) Percocet 1 tab PO Q6H for moderate pain (scale 4-6) Acetaminophen 500 mg PO Q6H PRN for moderate pain (scale 4-6) Tomorrow's Labs & Rationales: CBC to monitor WBC in the setting of soft tissue infection of left leg BMP to monitor lytes in the setting of ESRD on HD INR in the setting of anti-coagulation with warfarin Vancomycin level as patient is currently on vancomycin for soft tissue infection of left leg Discharge Plan Discharge Disposition: STR/NH
--- NOTE | 2016-07-07 15:00 | NUR ---
PT ARRIVED TO ROOM 221 AT THIS TIME FROM TELE VIA [employer]. UPON ARRIVAL, PT A/V/OX3. ON RA. LCTA. +BS. LLE ULCER COVERED, DRSG CDI. WOUND VAC ACCOMPANIED PT, NOT CONNECTED. PER HOSPITAL MEDICAL BILLER, WOUND VAC NOT TO BE CONNECTED TO PT. VSS. BUTTOCKS EXCORIATED AND REDDENED. RCW PETEY CATH DRSG INTACT. BRUISES TO BUE AND BLE. RUE +2 EDEMA. AT BEDSIDE. WILL CONTINUE TO MONITOR.
[2016-07-07 22:15] VITALS: BP 136/64
--- NOTE | 2016-07-08 07:30 | PN- Housestaff ---
ESTELA HEATH,[facility] 07/08/16 0729: Subjective Follow-up For: Chronic nonhealing ulcer of left calf ESRD T2DM Subjective: Patient examined this am. Complains of left lower leg pain 2/2 to ulcer. Veins of nausea, vomiting, abdominal pain, urinary symptoms, any changes in bowel movements. Vitals within normal limits ` Review of Systems Constitutional: Reports: see HPI. Objective Last 24 Hrs of Vital Signs/I&O Vital Signs Date Time Temp Pulse Resp B/P Pulse O2 O2 Flow FiO2 Ox Delivery Rate 07/08 1651 98.2 88 136/92 93 Room Air 07/08 1124 91 Room Air Room Air 07/08 1051 84 112/50 07/08 1051 84 112/50 07/08 0900 98.4 84 20 112/50 95 Room Air 07/08 0800 Room Air 07/08 0000 95 Room Air 07/07 2215 98.7 87 20 136/64 95 07/07 2204 87 138/64 Intake & Output 07/08 1600 07/08 0800 07/08 0000 Intake Total 472 720 600 Output Total 600 200 400 Balance -128 520 200 Intake, IV 0 0 Intake, Oral 472 720 600 Number 5 2 2 Bowel Movements Output, Urine 600 200 400 Patient 77.111 kg Weight Physical Exam General Appearance: Alert, Oriented X3, Cooperative, No Acute Distress Cardiovascular: Regular Rate, Normal S1, Normal S2, No Murmurs Lungs: Clear to Auscultation, Normal Air Movement Abdomen: Normal Bowel Sounds, Soft, No Tenderness Extremities: left lower limb wrapped. Current Medications: Current Medications Sig/Kailash Start time Last Medication Dose Route Stop Time Status Admin Acetaminophen 500 MG Q6P PRN 07/02 0815 AC 07/08 PO 1102 Albuterol Sulfate 3 ML Q 3-4 HRS PRN PRN 07/05 1100 DC INH Aspirin 81 MG DAILY 07/01 1000 AC 07/08 PO 1048 Atorvastatin Calcium 40 MG 1700 06/30 1700 AC 07/08 PO 1656 Carvedilol 25 MG BID 06/30 2200 AC 07/08 PO 1051 Diphenoxylate HCl/ 2.5 MG TID PRN 07/08 0100 AC 07/08 Atropine PO 0836 Epoetin Ludwig 3,000 UNIT MoWeFr PRN 07/08 1200 AC IV Epoetin Ludwig 2,000 UNIT MoWeFr PRN 07/08 1200 AC IV Epoetin Ludwig 6,000 UNIT PER PROTOCL PRN 07/01 1430 DC IV Insulin Aspart 0 TIDAC/HS 06/30 2100 AC 07/08 SC 1208 Insulin Detemir 6 UNITS DAILY 07/06 1000 AC 07/08 SC 1048 Iron Sucrose 100 MG PER PROTOCL PRN 07/01 1430 AC 07/03 Sodium Chloride 100 ML IV 1221 Multivitamins 1 TAB DAILY 07/01 1000 AC 07/08 PO 1048 Oxycodone/ 2 TAB Q6P PRN 07/05 1115 AC 07/08 Acetamin[place] PO 0610 Oxycodone/ 1 TAB Q6P PRN 07/05 1115 AC 07/08 Acetaminophen PO 1511 Patient Medication 1 ED .STK-MED ONE 07/08 1359 DC Teaching ED 07/08 1400 Prednisone 10 MG DAILY 07/05 1000 AC 07/08 PO 1047 Sevelamer Carbonate 800 MG WITH MEALS 06/30 1200 AC 07/08 PO 1656 Sodium Hypochlorite 1 CHAITANYA BID 07/05 1113 AC 07/08 TOP 1051 Tamsulosin HCl 0.4 MG DAILY 07/01 1000 AC 07/08 PO 1051 Vancomycin HCl 1,000 MG ONCE ONE 07/08 1145 DC Sodium Chloride 250 ML IV 07/08 1244 Vancomycin HCl 1 MG DAILY PRN 07/01 1300 AC 07/04 Dextrose/Water 250 ML IV 1116 Vitamin A/Vitamin D 1 CHAITANYA BID 06/30 2200 AC 07/08 TOP 1051 Zinc Oxide 1 CHAITANYA BID 06/30 2200 AC 07/08 TOP 1054 Assessment/Plan Assessment: 75 y/o M with PMHx of antiphospholipid antibody syndrome, diabetes and CKD who presented with SOB, hoarseness and stridor, found to be uremic with initiation of HD, s/p debridement of chronic left leg ulcer, on IV vancomycin for soft tissue infection, currently awaiting outpatient dialysis slot. #Chronic left lower extremity ulcer: Has chronic nonhealing ulcers of left leg for which he sees Dr. Pretty as outpatient. S/p excisional debridement through the subcutaneous and muscular tissue with reported seropurulent drainage (06/30) and OR cultures growing diphthteroids and coag-negative Staph. Although these are not typically pathogenic organisms, currently on IV vancomycin for possible soft tissue infection. Patient's scheduled vancomycin dose on 07/05 was inadvertently not administered and cannot be administered until next session of dialysis as patient has no IV access. Vancomycin level subtherapeutic at 9.2 yesterday. Wound appears improved, however patient complains of severe pain concerning for ischemia. * ID following. Appreciate their recs. * Continue vancomycin per dialysis protocol to plan for a 7-10 day course. * Vascular surgery consulted again. Appreciate further evaluation regarding the vascular supply of left leg. * Will check random vancomycin level friday morning and dose vancomycin accordingly. #Antiphospholipid antibody syndrome: S/p post right upper extremity DVT. On life -long anti-coagulation with warfarin, takes 5 mg PO QD. * Continue to check INR daily and dose warfarin accordingly to keep INR between 2-3. * INR supratherapeutic , warfarin on hold for today will follow INR levels tomorrow. #ESRD: Cr was 5 on admission, with gradual increase from 2-3 within the past year. Most likely etiology is progressive diabetic nephropathy. Mj cath was placed and urgent hemodialysis was initiated (06/26) with improvement of mental status. Patient is currently awaiting outpatient dialysis slot. Status post hemodialysis on 07/05 with 2-3 L ultrafiltration as tolerated over 3.25 hours, next hemodialysis for Sunday 07/08. * Nephrology following. Appreciate their recs. * Continue HD MWF. * No PICC lines should be inserted per Nephrology, as patient will need vein site for placement of graft. * Continue sevelamer 800 mg PO TIDAC. * Continue daily Nephrocaps. #T2DM: Uncontrolled blood sugars this admission, secondary to steroids. * Endocrinology following. Appreciate their recs. * Continue Levemir 6U SQ BID. * Continue NovoLog SSI TIDAC: 80-150 give 4 units, 151-200 give 6 units, 201-250 give 8 units, 251-300 give 10 units, 301-350 give 12 units and 351-400 give 14 units and NovoLog SSI QHS: 251-300 give 3 units, 301-350 give 4 units, 351-400 give 5 units. #HTN: Takes amlodipine 10 mg PO QD, carvedilol 25 mg PO BID, furosemide 80 mg PO BID and hydralazine 50 mg PO BID at home. * Holding home amlodipine, furosemide and hydralazine. * Continue home carvedilol. #Crohn's disease: Patient has been taking prednisone 10 mg PO QD for many years to prevent flares. * Continue home prednisone. Diet: Renal Dialysis Diet (regular and nectar thick liquids) DVT PPx: Warfarin and ALPs CODE: FULL Problem List: 1. Crohns disease 2. Peripheral vascular disease 3. Type 2 diabetes mellitus 4. Chronic ulcer of left lower extremity Pain Ratin Pain Location: left lower leg Pain Goal: Remain pain free Pain Plan: tylenol Percocet Tomorrow's Labs & Rationales: CBC BEP INR HARRY MORRIS MD 07/08/16 1430: Attending MD Review Statement Attending Statement Attending MD Statement: examined this patient, discuss w/resident/PA/V[employer]UUM METALIZING SUPERVISOR, agreed w/resident/PA/VACUUM METALIZING SUPERVISOR, reviewed EMR data (avail), discussed with nursing, discussed with case mgmt, amended to note Attending Assessment/Plan: Patient seen and examined. Resting comfortably a motility acute distress. No issues overnight reported by nursing staff. Blood glucose levels acceptable. He is scheduled for hemodialysis today. He is still awaiting an outpatient dialysis slot. Recommendations: -Continue vancomycin which he dialysis session to complete 10 days of therapy. -Follow-up with the vascular surgery service regarding any plans for revascularization of the necrotic left lower extremity wound. Recommendations to taper his chronic steroid therapy noted, will follow-up with the patient's gastroenterology service. -Once patient has completed antibiotic therapy patient may follow-up with vascular surgery service for long-term dialysis access creation. -Once a bed becomes available for outpatient dialysis he will be discharged once cleared by the nephrology and ID service.
--- NOTE | 2016-07-08 07:58 | PN- Diabetes ---
Assessment/Plan Assessment: Patient has type 2 diabetes which was being aggravated by high-dose steroid therapy. He has no stridor at present. Dexamethasone was stopped and the patient is on prednisone 10 mg daily which apparently is his usual dose which he takes for his Crohn's disease. Levemir was decreased to 6 units daily. He is on sliding scale NovoLog before meals. Fingerstick blood sugars yesterday were 162 before breakfast, 110 before lunch, 202 before dinner and 257 at bedtime. This morning his fingerstick blood sugar is 149. Plan: Suggest continue the present insulin. The patient is eating okay and his blood sugars are under reasonable control. Subjective Subjective: Complains of mucus Review of Systems Constitutional: Denies: chills, fever. Cardiovascular: Denies: chest pain. Respiratory: Reports: cough. Gastrointestinal: Denies: nausea, vomiting. Hematologic/Endocrine: Denies: polyuria, polydipsia. Objective Last 24 Hrs of Vital Signs/I&O Vital Signs Date Time Temp Pulse Resp B/P Pulse O2 O2 Flow FiO2 Ox Delivery Rate 07/07 2215 98.7 87 20 136/64 95 07/07 2204 87 138/64 07/07 1057 122/68 07/07 1057 122/68 07/07 08 98.3 90 20 122/68 91 Room Air Intake & Output 07/08 1600 Intake Total 600 240 Output Total 200 400 250 Balance -200 200 -10 Intake, Oral 600 240 Number 1 2 2 Bowel Movements Output, Urine 200 400 250 Patient 170 lb Weight Vital Signs Date Time Temp Pulse Resp B/P Pulse O2 O2 Flow FiO2 Ox Delivery Rate 07/07 2215 98.7 87 20 136/64 95 07/07 2204 87 138/64 07/07 1057 122/68 07/07 1057 122/68 07/07 08 98.3 90 20 122/68 91 Room Air Intake & Output 07/08 1600 Intake Total 600 240 Output Total 200 400 250 Balance -200 200 -10 Intake, Oral 600 240 Number 1 2 2 Bowel Movements Output, Urine 200 400 250 Patient 170 lb Weight Physical Exam General Appearance: alert, awake, comfortable Head: normal appearance Neck: normal inspection Respiratory: normal breath sounds Cardiovascular: regular rate/rhythm Abdomen: normal bowel sounds Extremities: left lower leg bandage Current Medications: Current Medications Sig/Kailash Start time Last Medication Dose Route Stop Time Status Admin Acetaminophen 500 MG Q6P PRN 07/02 0815 AC 07/07 PO 2223 Albuterol Sulfate 3 ML Q 3-4 HRS PRN PRN 07/05 1100 AC INH Aspirin 81 MG DAILY 07/01 1000 AC 07/07 PO 1057 Atorvastatin Calcium 40 MG 1700 06/30 1700 AC 07/07 PO 1811 Carvedilol 25 MG BID 06/30 2200 AC 07/07 PO 2204 Diphenoxylate HCl/ 2.5 MG TID PRN 07/08 0100 AC 07/08 Atropine PO 0100 Diphenoxylate HCl/ 2.5 MG .STK-MED ONE 07/07 1037 DC Atropine PO 07/07 1038 Diphenoxylate HCl/ 2.5 MG TID PRN 06/30 1200 DC 07/07 Atropine PO 1057 Epoetin Ludwig 6,000 UNIT PER PROTOCL PRN 07/01 1430 AC IV Insulin Aspart 0 TIDAC/HS 06/30 2100 AC 07/07 SC 2204 Insulin Detemir 6 UNITS DAILY 07/06 1000 AC 07/07 SC 1056 Iron Sucrose 100 MG PER PROTOCL PRN 07/01 1430 AC 07/03 Sodium Chloride 100 ML IV 1221 Multivitamins 1 TAB DAILY 07/01 1000 AC 07/07 PO 1057 Oxycodone/ 2 TAB Q6P PRN 07/05 1115 AC 07/08 Ac[place]amin[place] PO 0610 Oxycodone/ 1 TAB Q6P PRN 07/05 1115 AC 07/08 Acetaminophen PO 0100 Prednisone 10 MG DAILY 07/05 1000 AC 07/07 PO 1057 Sevelamer Carbonate 800 MG WITH MEALS 06/30 1200 AC 07/07 PO 1811 Sodium Hypochlorite 1 CHAITANYA BID 07/05 1113 AC 07/07 TOP 2204 Tamsulosin HCl 0.4 MG DAILY 07/01 1000 AC 07/07 PO 1057 Vancomycin HCl 1 MG DAILY PRN 07/01 1300 AC 07/04 Dextrose/Water 250 ML IV 1116 Vitamin A/Vitamin D 1 CHAITANYA BID 06/30 2200 AC 07/07 TOP 2204 Warfarin Sodium 5 MG COUMADIN 1700 ONE 07/07 1700 DC 07/07 PO 07/07 1701 1812 Zinc Oxide 1 CHAITANYA BID 06/30 2200 AC 07/07 TOP 220
[2016-07-08 09:00] VITALS: BP 112/50
--- NOTE | 2016-07-08 12:42 | NUR ---
I agree with the [employer] Web Developer's findings/evaluation of this patient's condition.
--- NOTE | 2016-07-08 13:00 | NUR ---
PT LEFT FLOOR VIA OWN BED TO DIALYSIS. WILL CONTINUE TO MONITOR.
--- NOTE | 2016-07-08 13:24 | NUR ---
OCCUPATIONAL THERAPY NOTE: ATTEMPTED TO SEE PT IN AM, PT OFF UNIT RECEIVING HD. OT WILL F/U TOMORROW WHEN APPROPRIATE.
[2016-07-08 13:52] LABS: ABSOLUTE BASOPHIL COUNT 0 /CUMM (0.0-0.2); ABSOLUTE EOSINOPHIL COUNT 0.1 /CUMM (0.0-0.7); ABSOLUTE GRANULOCYTE CT 6.1 /CUMM (1.4-6.5); ABSOLUTE LYMPH COUNT 0.3 /CUMM (1.2-3.4); ABSOLUTE MONOCYTE COUNT 0.8 /CUMM (0.10-0.60); BASOPHIL % 0.1 % (0.0-2.0); EOSINOPHIL % 1.5 % (0-5); GRANULOCYTE % 82.4 % (42.2-75.2); HEMATOCRIT 27.1 % (42-52); MEAN CORPUSCULAR HGB 29.3 PG (27.0-31.0); MEAN CORPUSCULAR HGB CONC 30.7 G/DL (33.0-37.0); MEAN CORPUSCULAR VOLUME 95.2 FL (80.0-94.0); MEAN PLATELET VOLUME 9.9 FL (7.4-10.4); PLATELET COUNT 126 /CUMM (130-400); RED BLOOD CELL CT 2.85 /CUMM (4.70-6.10); WHITE BLOOD CELL COUNT 7.4 /CUMM (4.8-10.8)
--- NOTE | 2016-07-08 14:01 | PN- Nephrology ---
Assessment/Plan Assessment: 1. ESRD likely secondary to diabetic nephropathy 2. Diabetes mellitus with peripheral vascular disease status post right TMA, status post debridement left ankle ulcer 3. Antiphospholipid antibody syndrome status post DVT Suggestion: 1. Hemodialysis today in progress with 3 L ultrafiltration as tolerated over 3.25 hours; next hemodialysis for Tuesday 07/10 2. Antibiotic therapy per ID 3. Await outpatient dialysis slot 4. Vascular access surgery once infection no longer an issue Subjective Subjective: Seen with hemodialysis. Patient's foot/ankle pain seems to have improved somewhat. No other complaints. Review of Systems: Objective Vital Signs and I&Os Vital Signs Date Time Temp Pulse Resp B/P Pulse O2 O2 Flow FiO2 Ox Delivery Rate 07/08 1124 91 Room Air Room Air 07/08 1051 84 112/50 07/08 1051 84 112/50 07/08 0900 98.4 84 20 112/50 95 Room Air 07/08 0800 Room Air 07/08 0000 95 Room Air 07/07 2215 98.7 87 20 136/64 95 07/07 2204 87 138/64 Intake & Output 07/08 1600 07/08 0400 07/07 1600 07/07 0400 07/06 1600 07/06 0400 Intake Total 720 600 540 400 650 240 Output Total 800 400 550 400 400 250 Balance -80 200 -10 0 250 -10 Intake, IV 0 Intake, Oral 720 600 540 400 650 240 Number 5 2 3 1 2 Bowel Movements Output, Urine 800 400 550 400 400 250 Patient 170 lb 179 lb 177 lb Weight Physical Exam: General: Well-developed white male in NAD Skin: No rash or jaundice HEENT: Conjunctivae pink, sclerae anicteric, mucous membranes moist Neck: Without masses or thyromegaly, no supraclavicular or cervical adenopathy; there is a right IJ tunneled dialysis catheter in place Chest: Clear to P&A Heart: Regular rate and rhythm without S3 or rub Abdomen: Soft and nontender without palpable masses or organomegaly Extremities: Lower extremity dressing intact, +edema Neuro: No focal findings, no asterixis or myoclonus Current Medications: Current Medications Sig/Kailash Start time Last Medication Dose Route Stop Time Status Admin Acetaminophen 500 MG Q6P PRN 07/02 0815 AC 07/08 PO 1102 Albuterol Sulfate 3 ML Q 3-4 HRS PRN PRN 07/05 1100 DC INH Aspirin 81 MG DAILY 07/01 1000 AC 07/08 PO 1048 Atorvastatin Calcium 40 MG 1700 06/30 1700 AC 07/07 PO 1811 Carvedilol 25 MG BID 06/30 2200 AC 07/08 PO 1051 Diphenoxylate HCl/ 2.5 MG TID PRN 07/08 0100 AC 07/08 Atropine PO 0836 Epoetin Ludwig 3,000 UNIT MoWeFr PRN 07/08 1200 AC IV Epoetin Ludwig 2,000 UNIT MoWeFr PRN 07/08 1200 AC IV Epoetin Ludwig 6,000 UNIT PER PROTOCL PRN 07/01 1430 DC IV Insulin Aspart 0 TIDAC/HS 06/30 2100 AC 07/08 SC 1208 Insulin Detemir 6 UNITS DAILY 07/06 1000 AC 07/08 SC 1048 Iron Sucrose 100 MG PER PROTOCL PRN 07/01 1430 AC 07/03 Sodium Chloride 100 ML IV 1221 Multivitamins 1 TAB DAILY 07/01 1000 AC 07/08 PO 1048 Oxycodone/ 2 TAB Q6P PRN 07/05 1115 AC 07/08 [place]amin[place] PO 0610 Oxycodone/ 1 TAB Q6P PRN 07/05 1115 AC 07/08 Acetaminophen PO 0100 Prednisone 10 MG DAILY 07/05 1000 AC 07/08 PO 1047 Sevelamer Carbonate 800 MG WITH MEALS 06/30 1200 AC 07/08 PO 1208 Sodium Hypochlorite 1 CHAITANYA BID 07/05 1113 AC 07/08 TOP 1051 Tamsulosin HCl 0.4 MG DAILY 07/01 1000 AC 07/08 PO 1051 Vancomycin HCl 1,000 MG ONCE ONE 07/08 1145 DC Sodium Chloride 250 ML IV 07/08 1244 Vancomycin HCl 1 MG DAILY PRN 07/01 1300 AC 07/04 Dextrose/Water 250 ML IV 1116 Vitamin A/Vitamin D 1 CHAITANYA BID 06/30 2200 AC 07/08 TOP 1051 Warfarin Sodium 5 MG COUMADIN 1700 ONE 07/07 1700 DC 07/07 PO 07/07 1701 1812 Zinc Oxide 1 CHAITANYA BID 06/30 2200 AC 07/08 TOP 1054 Results Pertinent Lab Results: Laboratory Tests 07/08 07/08 07/07 1300 1200 0718 Chemistry Sodium (137 - 145 mmol/L) Pending 137 Potassium (3.5 - 5.1 mmol/L) Pending 5.1 Chloride (98 - 107 mmol/L) Pending 103 Carbon Dioxide (22 - 30 mmol/L) Pending 26 Anion Gap (5 - 16) Pending 8 BUN (9 - 20 mg/dL) Pending 53 H Creatinine (0.7 - 1.2 mg/dL) Pending 3.0 H Estimated GFR (>60 ml/min) 21 L BUN/Creatinine Ratio (7 - 25 %) Pending 17.7 PTH Intact Pending Cancelled Coagulation PT (9.4 - 12.5 SEC) Pending 25.0 H INR (0.90 - 1.17) Pending 2.40 H Hematology CBC w Diff Pending NO MAN DIFF REQ WBC (4.8 - 10.8 /CUMM) Pending 9.7 RBC (4.70 - 6.10 /CUMM) Pending 3.30 L Hgb (14.0 - 18.0 G/DL) Pending 9.8 L Hct (42 - 52 %) Pending 31.2 L MCV (80.0 - 94.0 FL) Pending 94.6 H MCH (27.0 - 31.0 PG) Pending 29.6 RDW (11.5 - 14.5 %) Pending 18.8 H Plt Count (130 - 400 /CUMM) Pending 129 L MPV (7.4 - 10.4 FL) Pending 11.0 H Gran % (42.2 - 75.2 %) 81.0 H Lymphocytes % (20.5 - 51.1 %) 5.0 L Monocytes % (1.7 - 9.3 %) 12.3 H Eosinophils % (0 - 5 %) 1.5 Basophils % (0.0 - 2.0 %) 0.2 Absolute Granulocytes (1.4 - 6.5 /CUMM) 7.8 H Absolute Lymphocytes (1.2 - 3.4 /CUMM) 0.5 L Absolute Monocytes (0.10 - 0.60 /CUMM) 1.2 H Absolute Eosinophils (0.0 - 0.7 /CUMM) 0.1 Absolute Basophils (0.0 - 0.2 /CUMM) 0 PUBS MCHC (33.0 - 37.0 G/DL) Pending 31.3 L Toxicology Random Vancomycin Pending 07/06 0630 Chemistry Sodium (137 - 145 mmol/L) 137 Potassium (3.5 - 5.1 mmol/L) 5.0 Chloride (98 - 107 mmol/L) 103 Carbon Dioxide (22 - 30 mmol/L) 27 Anion Gap (5 - 16) 7 BUN (9 - 20 mg/dL) 37 H Creatinine (0.7 - 1.2 mg/dL) 2.0 H Estimated GFR (>60 ml/min) 33 L BUN/Creatinine Ratio (7 - 25 %) 18.5 Coagulation PT (9.4 - 12.5 SEC) 22.3 H INR (0.90 - 1.17) 2.14 H Hematology CBC w Diff NO MAN DIFF REQ WBC (4.8 - 10.8 /CUMM) 10.2 RBC (4.70 - 6.10 /CUMM) 3.15 L Hgb (14.0 - 18.0 G/DL) 9.3 L Hct (42 - 52 %) 30.1 L MCV (80.0 - 94.0 FL) 95.7 H MCH (27.0 - 31.0 PG) 29.7 RDW (11.5 - 14.5 %) 19.2 H Plt Count (130 - 400 /CUMM) 128 L MPV (7.4 - 10.4 FL) 10.7 H Gran % (42.2 - 75.2 %) 81.0 H Lymphocytes % (20.5 - 51.1 %) 5.1 L Monocytes % (1.7 - 9.3 %) 13.1 H Eosinophils % (0 - 5 %) 0.7 Basophils % (0.0 - 2.0 %) 0.1 Absolute Granulocytes (1.4 - 6.5 /CUMM) 8.3 H Absolute Lymphocytes (1.2 - 3.4 /CUMM) 0.5 L Absolute Monocytes (0.10 - 0.60 /CUMM) 1.3 H Absolute Eosinophils (0.0 - 0.7 /CUMM) 0.1 Absolute Basophils (0.0 - 0.2 /CUMM) 0 PUBS MCHC (33.0 - 37.0 G/DL) 31.0 L Toxicology Random Vancomycin (ug/ml) 9.2
[2016-07-08 14:05] LABS: PT 46.9 SEC (9.4-12.5)
--- NOTE | 2016-07-08 15:42 | PN- Infect Dx ---
Subjective Subjective: Afebrile. He complains of severe pain in the left calf. Objective Last 24 Hrs of Vital Signs/I&O Vital Signs Date Time Temp Pulse Resp B/P Pulse O2 O2 Flow FiO2 Ox Delivery Rate 07/08 1124 91 Room Air Room Air 07/08 1051 84 112/50 07/08 1051 84 112/50 07/08 0900 98.4 84 20 112/50 95 Room Air 07/08 0800 Room Air 07/08 0000 95 Room Air 07/07 2215 98.7 87 20 136/64 95 07/07 2204 87 138/64 Intake & Output 07/08 1600 07/08 0800 07/08 0000 Intake Total 472 720 600 Output Total 600 200 400 Balance -128 520 200 Intake, IV 0 0 Intake, Oral 472 720 600 Number 5 2 2 Bowel Movements Output, Urine 600 200 400 Patient 170 lb Weight Physical Exam Other Physical Findings: He is mildly lethargic, currently on dialysis Neck tunneled catheter in the right IJ with no inflammation at the site Extremities left leg dressing intact Results Last 24 Hours of Lab Results: Laboratory Tests 07/08 07/08 1300 1200 Chemistry Sodium (137 - 145 mmol/L) 135 L Potassium (3.5 - 5.1 mmol/L) 5.1 Chloride (98 - 107 mmol/L) 101 Carbon Dioxide (22 - 30 mmol/L) 26 Anion Gap (5 - 16) 8 BUN (9 - 20 mg/dL) 63 H Creatinine (0.7 - 1.2 mg/dL) 3.6 H Estimated GFR (>60 ml/min) 17 L BUN/Creatinine Ratio (7 - 25 %) 17.5 PTH Intact (13.8 - 85 pg/ml) 547.2 H Cancelled Coagulation PT (9.4 - 12.5 SEC) 46.9 *H INR (0.90 - 1.17) 4.53 *H Hematology CBC w Diff NO MAN DIFF REQ WBC (4.8 - 10.8 /CUMM) 7.4 RBC (4.70 - 6.10 /CUMM) 2.85 L Hgb (14.0 - 18.0 G/DL) 8.3 L Hct (42 - 52 %) 27.1 L MCV (80.0 - 94.0 FL) 95.2 H MCH (27.0 - 31.0 PG) 29.3 RDW (11.5 - 14.5 %) 19.0 H Plt Count (130 - 400 /CUMM) 126 L MPV (7.4 - 10.4 FL) 9.9 Gran % (42.2 - 75.2 %) 82.4 H Lymphocytes % (20.5 - 51.1 %) 4.7 L Monocytes % (1.7 - 9.3 %) 11.3 H Eosinophils % (0 - 5 %) 1.5 Basophils % (0.0 - 2.0 %) 0.1 Absolute Granulocytes (1.4 - 6.5 /CUMM) 6.1 Absolute Lymphocytes (1.2 - 3.4 /CUMM) 0.3 L Absolute Monocytes (0.10 - 0.60 /CUMM) 0.8 H Absolute Eosinophils (0.0 - 0.7 /CUMM) 0.1 Absolute Basophils (0.0 - 0.2 /CUMM) 0 PUBS MCHC (33.0 - 37.0 G/DL) 30.7 L Toxicology Random Vancomycin (ug/ml) 6.8 Last 24 Hours of [place] Results: No recent cultures Assessment/Plan Impression: Stable with temperatures and white blood cell count remaining normal on tapering steroids and Vancomycin, though he has not received any since July 04 as it was apparently not given at dialysis on the July 05 and he had no IV access over the weekend. He will need to receive Vancomycin at the end of dialysis. The appropriate duration of Vancomycin will be difficult to determine. He has missed several doses, but the organisms isolated from the OR are typically not pathogenic; therefore am not convinced that he requires any antibiotics. He is now 8 days status post excisional debridement through the subcutaneous and muscular tissue of the left calf with "seropurulent" drainage noted. The severity of his pain is suggestive of ischemia, though he reportedly has good blood flow in this area. Suggestion: 1. Further evaluation regarding the vascular status of his left leg per Vascular surgery 2. Re-dose Vancomycin today after dialysis and continue per protocol after each dialysis
--- NOTE | 2016-07-08 16:00 | NUR ---
PT ARRIVED VIA OWN BED TO FLOOR FROM DIALYSIS. PT A AND FORGETFUL, ON RA, RCW ASHCATH DSG CHANGED 07/08/16. PT WEIGHT TAKEN @ 167.2 LBS. VSS. PAIN CONTROLLED. DSG CHANGED- CLEANED W/ DAKINS SOLUTION COVERED W/ TELFA, KERLEX AND FLUFF. BS @ 81- MD ROSAS NOTIFIED. PT'S AT BEDSIDE, WILL CONTINUE TO MONITOR.
[2016-07-08 16:51] VITALS: BP 136/92
[2016-07-08 22:21] VITALS: BP 118/60
[2016-07-09 06:39] VITALS: BP 110/62
--- NOTE | 2016-07-09 06:42 | NUR ---
0668 RAPID RESPONSE WAS CALLED BY MST. MST STATED PT WAS HAVING CHEST PAIN. VITALS WNL 110/62, 100 HR, 99.1 TEMP. TROPONINS WERE DRAWN AND EKG OBTAINED. PT ALERT. SPEAKING W AT BEDSIDE. WILL MONITOR.
--- NOTE | 2016-07-09 06:56 | Event Note ---
Event Note Event Note: Mr. Marvin complained of chest pain while vitals were being taken this morning @ 5:55am. A rapid response was called. He complained of centrally located chest pain on my arrival which was 7/10 non radiating. Denies shortness of breath, palpitations, lightheadedness. We will obtain EKG, troponins and draw morning labs. Vitals assessed were T 99.1, BP 110/62, HR 100, RR 20, O2 Sat 92% on RA. He is already on BBlocker, asprin, statin. When checked on him after EKG done he no longer complained of pain and was resting comfortably falling asleep. He was immediately arrousable and stated he felt fine. We will check cardiac enzymes and recheck in 6 hrs along with EKGs. He did have positive troponins which were trending down. We will check for any elevation.
--- NOTE | 2016-07-09 07:30 | NUR ---
RECIEVED REPORT FROM NIGHT RN, PT C/O CHEST PAIN AND N+T IN BUE, TROP CAME BACK @ 0.14, MD PALMER NOTIFIED. NITRO TABX2 ADMINISTERED PER ORDER AND IV MORPHINE ADMINISTERED, VSS OBTAINED, IV INSERTED IN LF #22, ADMINISTERED AM MEDS AND INSULIN, HELD TAMULOSIN AND COREG MD PALMER NOTIFIED, PT TRANSFERRED TO RM 114 ON MONITOR, W/ BELONGINGS, MEDICATION, AND BREAKFAST. REPORT GIVEN TO LESLY HANNA.
--- NOTE | 2016-07-09 07:52 | PN- Diabetes ---
Assessment/Plan Assessment: Patient has type 2 diabetes which was being aggravated by high-dose steroid therapy. He has no stridor at present. Dexamethasone was stopped and the patient is on prednisone 10 mg daily which apparently is his usual dose which he takes for his Crohn's disease. Levemir was decreased to 6 units daily. He is on sliding scale NovoLog before meals. Fingerstiick blood sugars yesterday were 149 before breakfast, 165 before lunch, 81 before dinner, and 114 at bedtime. This morning the patient's fingerstick blood sugar is 103. The patient had some chest pain yesterday. Troponin was 0.14 and repeat troponin is pending. Plan: Suggest that we need to adjust the patient's insulin. Continue Levemir 6 units once a day in the morning. However we will need to reduce his sliding scale NovoLog. Sliding scale NovoLog before meals should be 80-150 give 3 units NovoLog, 151-200 give 4 units NovoLog, 201-250 give 6 units NovoLog, 251-300 give 7 units NovoLog, 301-350 give 8 units NovoLog. Cardiology should see the patient in consultation. Subjective Subjective: Has some back pain Review of Systems Constitutional: Denies: chills, fever. Cardiovascular: Reports: chest pain. Respiratory: Denies: short of breath. Gastrointestinal: Denies: abdominal pain. Neurological/Psychological: Reports: anxiety. Objective Last 24 Hrs of Vital Signs/I&O Vital Signs Date Time Temp Pulse Resp B/P Pulse O2 O2 Flow FiO2 Ox Delivery Rate 07/09 0639 99.1 100 20 110/62 92 Room Air 07/08 2221 98.5 88 20 118/60 92 Room Air 07/08 2151 124/64 07/08 1651 98.2 88 136/92 93 Room Air 07/08 1124 91 Room Air Room Air 07/08 1051 84 112/50 07/08 1051 84 112/50 07/08 0900 98.4 84 20 112/50 95 Room Air 07/08 0800 Room Air Intake & Output 07/09 0800 / 0000 07/08 1600 Intake Total 120 120 472 Output Total 600 Balance 120 120 -128 Intake, IV 0 Intake, Oral 120 120 472 Number 5 Bowel Movements Output, Urine 600 Patient 142 lb Weight Vital Signs Date Time Temp Pulse Resp B/P Pulse O2 O2 Flow FiO2 Ox Delivery Rate 07/09 0639 99.1 100 20 110/62 92 Room Air 07/08 2221 98.5 88 20 118/60 92 Room Air 07/08 2151 124/64 07/08 1651 98.2 88 136/92 93 Room Air 07/08 1124 91 Room Air Room Air 07/08 1051 84 112/50 07/08 1051 84 112/50 07/08 0900 98.4 84 20 112/50 95 Room Air 07/08 0800 Room Air Intake & Output 07/09 0800 07/09 0000 07/08 1600 Intake Total 120 120 472 Output Total 600 Balance 120 120 -128 Intake, IV 0 Intake, Oral 120 120 472 Number 5 Bowel Movements Output, Urine 600 Patient 142 lb Weight Physical Exam General Appearance: awake, anxious, comfortable Head: normal appearance Neck: normal inspection Respiratory: normal breath sounds Cardiovascular: regular rate/rhythm Abdomen: normal bowel sounds Extremities: left lower leg bandage Current Medications: Current Medications Sig/Kailash Start time Last Medication Dose Route Stop Time Status Admin Acetaminophen 500 MG Q6P PRN 07/02 0815 AC 07/08 PO 1102 Albuterol Sulfate 3 ML Q 3-4 HRS PRN PRN 07/05 1100 DC INH Aspirin 81 MG DAILY 07/01 1000 AC 07/08 PO 1048 Atorvastatin Calcium 40 MG 1700 06/30 1700 AC 07/08 PO 1656 Carvedilol 25 MG BID 06/30 2200 AC 07/08 PO 2151 Diphenoxylate HCl/ 2.5 MG TID PRN 07/08 0100 AC 07/08 Atropine PO 0836 Epoetin Ludwig 3,000 UNIT MoWeFr PRN 07/08 1200 AC IV Epoetin Ludwig 2,000 UNIT MoWeFr PRN 07/08 1200 AC IV Epoetin Ludwig 6,000 UNIT PER PROTOCL PRN 07/01 1430 DC IV Insulin Aspart 0 TIDAC/HS 06/30 2100 AC 07/08 SC 1208 Insulin Detemir 6 UNITS DAILY 07/06 1000 AC 07/08 SC 1048 Iron Sucrose 100 MG PER PROTOCL PRN 07/01 1430 AC 07/03 Sodium Chloride 100 ML IV 1221 Multivitamins 1 TAB DAILY 07/01 1000 AC 07/08 PO 1048 Oxycodone/ 2 TAB Q6P PRN 07/05 1115 AC 12/12 Acetaminophen PO 0610 Oxycodone/ 1 TAB Q6P PRN 07/05 1115 AC 07/08 Acetaminophen PO 2152 Patient Medication 1 ED .STK-MED ONE 07/08 1359 DC Teaching ED 07/08 1400 Prednisone 10 MG DAILY 07/05 1000 AC 07/08 PO 1047 Sevelamer Carbonate 800 MG WITH MEALS 06/30 1200 AC 07/08 PO 1656 Sodium Hypochlorite 1 CHAITANYA BID 07/05 1113 AC 07/08 TOP 2152 Tamsulosin HCl 0.4 MG DAILY 07/01 1000 AC 07/08 PO 1051 Vancomycin HCl 1,000 MG ONCE ONE 07/08 1145 DC Sodium Chloride 250 ML IV 07/08 1244 Vancomycin HCl 1 MG DAILY PRN 07/01 1300 AC 07/04 Dextrose/Water 250 ML IV 1116 Vitamin A/Vitamin D 1 CHAITANYA BID 06/30 2200 AC 07/08 TOP 2152 Zinc Oxide 1 CHAITANYA BID 06/30 2200 AC 07/08 TOP 2152 Findings Pertinent Lab/[facility] Results: Laboratory Tests 07/09 07/08 07/08 0610 1300 1200 Chemistry Sodium (137 - 145 mmol/L) 135 L Potassium (3.5 - 5.1 mmol/L) 5.1 Chloride (98 - 107 mmol/L) 101 Carbon Dioxide (22 - 30 mmol/L) 26 Anion Gap (5 - 16) 8 BUN (9 - 20 mg/dL) 63 H Creatinine (0.7 - 1.2 mg/dL) 3.6 H Estimated GFR (>60 ml/min) 17 L BUN/Creatinine Ratio (7 - 25 %) 17.5 Troponin I (<0.11 ng/ml) 0.14 *H PTH Intact (13.8 - 85 pg/ml) 547.2 H Cancelled Coagulation PT (9.4 - 12.5 SEC) 46.9 *H INR (0.90 - 1.17) 4.53 *H Hematology CBC w Diff NO MAN DIFF REQ WBC (4.8 - 10.8 /CUMM) 7.4 RBC (4.70 - 6.10 /CUMM) 2.85 L Hgb (14.0 - 18.0 G/DL) 8.3 L Hct (42 - 52 %) 27.1 L MCV (80.0 - 94.0 FL) 95.2 H MCH (27.0 - 31.0 PG) 29.3 RDW (11.5 - 14.5 %) 19.0 H Plt Count (130 - 400 /CUMM) 126 L MPV (7.4 - 10.4 FL) 9.9 Gran % (42.2 - 75.2 %) 82.4 H Lymphocytes % (20.5 - 51.1 %) 4.7 L Monocytes % (1.7 - 9.3 %) 11.3 H Eosinophils % (0 - 5 %) 1.5 Basophils % (0.0 - 2.0 %) 0.1 Absolute Granulocytes (1.4 - 6.5 /CUMM) 6.1 Absolute Lymphocytes (1.2 - 3.4 /CUMM) 0.3 L Absolute Monocytes (0.10 - 0.60 /CUMM) 0.8 H Absolute Eosinophils (0.0 - 0.7 /CUMM) 0.1 Absolute Basophils (0.0 - 0.2 /CUMM) 0 PUBS MCHC (33.0 - 37.0 G/DL) 30.7 L Toxicology Random Vancomycin (ug/ml) 6.8
[2016-07-09 08:30] VITALS: BP 98/50
--- NOTE | 2016-07-09 09:20 | NUR ---
Physical Therapy: Pt's chart reviewed this morning. Pt had Rapid Response this morning for CP. Pt transfered to tele at this time. Due to downgrade- pt will be placed on hold from skilled PT at this time. Please reconsult when pt medically stable and appropriate. Thank you.
[2016-07-09 09:30] VITALS: BP 120/60
--- NOTE | 2016-07-09 09:30 | NUR ---
TRANSFER NOTE: RECEIVED FROM [facility] SECONDARY TO REPORTS OF CHEST PAIN THIS MORNING. SEE TRANSFER DISPOSITION NOTE AND ASSESSMENT FLOWSHEETS FOR FURTHER DOCUMENTATION.
--- NOTE | 2016-07-09 09:55 | PN- Wound Care ---
Subjective Subjective: Patient was transferred to the ICU because of recurrent chest pain. He continues to have significant left leg pain. Nurses requested evaluation of bilateral buttock ulcers. Objective Vital Signs and I&Os Vital Signs Result Date Time Pulse Ox 92 07/09 639 B/P 110/62 07/09 639 O2 Delivery Room Air 07/09 639 Temp 99.1 07/09 639 Pulse 100 07/09 639 Resp 20 07/09 639 O2 Flow Rate Room Air 07/08 1124 Intake & Output 07/09 0000 07/08 1600 07/08 0800 Intake Total 120 472 720 Output Total 600 200 Balance 120 -128 520 Intake, IV 0 0 Intake, Oral 120 472 720 Number 5 2 Bowel Movements Output, Urine 600 200 Patient 170 lb Weight Exam the right buttock shows there to be a 1.5 x 0.8 cm stage II pressure ulcer along the left buttock is approximately a 1 x 0.5 cm stage II pressor ulcer there are multiple excoriations and a larger area of erythema. 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 Patient is medically unstable and discharge is delayed. If he becomes medically stabilized and remains in the hospital will evaluate for initiation of hyperbarics as an inpatient in view of progressive necrosis. There is evidence of stage I and stage II pressure injury ulcers of his buttocks he is on a low air loss mattress and barrier cream will be applied friction and shear should be avoided he should be offloaded to the extent possible
--- NOTE | 2016-07-09 10:15 | PN- Infect Dx ---
Subjective Subjective: Afebrile on steroids. He apparently complained of chest pain earlier this morning, prompting transfer to telemetry. He currently reports right-sided chest pain. Objective Last 24 Hrs of Vital Signs/I&O Vital Signs Date Time Temp Pulse Resp B/P Pulse O2 O2 Flow FiO2 Ox Delivery Rate 07/09 0930 98.8 94 20 120/60 95 Nasal 2.0L Cannula 07/09 0639 99.1 100 20 110/62 92 Room Air 07/08 2221 98.5 88 20 118/60 92 Room Air 07/08 2151 124/64 07/08 1651 98.2 88 136/92 93 Room Air 07/08 1124 91 Room Air Room Air 07/08 1051 84 112/50 07/08 1051 84 112/50 Intake & Output 07/09 1600 07/09 0800 07/09 0000 Intake Total 120 120 Output Total Balance 120 120 Intake, Oral 120 120 Patient 142 lb Weight Physical Exam Other Physical Findings: He appears confused and disoriented Neck tunneled catheter in the right IJ with no inflammation at the site Lungs clear Heart regular rhythm with no murmur Extremities left calf wound, examined yesterday, reveals areas of necrosis with no surrounding erythema or purulent drainage Results Last 24 Hours of Lab Results: Laboratory Tests 07/09 07/09 07/08 0945 0610 1300 Chemistry Sodium (137 - 145 mmol/L) Pending 135 L Potassium (3.5 - 5.1 mmol/L) Pending 5.1 Chloride (98 - 107 mmol/L) Pending 101 Carbon Dioxide (22 - 30 mmol/L) Pending 26 Anion Gap (5 - 16) Pending 8 BUN (9 - 20 mg/dL) Pending 63 H Creatinine (0.7 - 1.2 mg/dL) Pending 3.6 H Estimated GFR (>60 ml/min) 17 L BUN/Creatinine Ratio (7 - 25 %) Pending 17.5 Troponin I (<0.11 ng/ml) 0.14 *H PTH Intact (13.8 - 85 pg/ml) 547.2 H Coagulation PT (9.4 - 12.5 SEC) Pending 46.9 *H INR (0.90 - 1.17) Pending 4.53 *H Hematology CBC w Diff Pending NO MAN DIFF REQ WBC (4.8 - 10.8 /CUMM) Pending 7.4 RBC (4.70 - 6.10 /CUMM) Pending 2.85 L Hgb (14.0 - 18.0 G/DL) Pending 8.3 L Hct (42 - 52 %) Pending 27.1 L MCV (80.0 - 94.0 FL) Pending 95.2 H MCH (27.0 - 31.0 PG) Pending 29.3 RDW (11.5 - 14.5 %) Pending 19.0 H Plt Count (130 - 400 /CUMM) Pending 126 L MPV (7.4 - 10.4 FL) Pending 9.9 Gran % (42.2 - 75.2 %) 82.4 H Lymphocytes % (20.5 - 51.1 %) 4.7 L Monocytes % (1.7 - 9.3 %) 11.3 H Eosinophils % (0 - 5 %) 1.5 Basophils % (0.0 - 2.0 %) 0.1 Absolute Granulocytes (1.4 - 6.5 /CUMM) 6.1 Absolute Lymphocytes (1.2 - 3.4 /CUMM) 0.3 L Absolute Monocytes (0.10 - 0.60 /CUMM) 0.8 H Absolute Eosinophils (0.0 - 0.7 /CUMM) 0.1 Absolute Basophils (0.0 - 0.2 /CUMM) 0 PUBS MCHC (33.0 - 37.0 G/DL) Pending 30.7 L Toxicology Random Vancomycin (ug/ml) 6.8 12/12 1200 Chemistry PTH Intact Cancelled Last 24 Hours of [place] Results: No recent cultures Assessment/Plan Impression: Persistent pain in the left leg, presumably ischemic in nature, and feel that further evaluation of his left leg perfusion is indicated. His wound remains necrotic despite excisional debridement 9 days ago and treatment with Vancomycin for coag-negative Staph and diphtheroids isolated from the OR cultures. He does remain afebrile with white blood cell count normal and I am not convinced that there is an infectious component to his left leg wound. His confusion and disorientation may be medication related. Suggestion: 1. Reevaluation of all his medications in view of his mental status 2. Vascular surgery follow-up regarding his left leg perfusion 3. Continue Vancomycin after each dialysis per protocol pending above
--- NOTE | 2016-07-09 10:41 | Cons- Cardiology ---
General Information and HPI Consulting Request Date of Consult: 07/09/16 Requested By: HARRY MORRIS M.D Reason for Consult: Chest pain Source of Information: patient, old records Exam Limitations: unable to give history, poor historian History of Present Illness: The patient 75-year-old male with a known history of antiphospholipid antibody syndrome, chronic right upper extremity DVT on Coumadin, hypertension, chronic kidney disease on dialysis, peripheral vascular disease, lower extremity ulcers that are nonhealing, Crohn's disease status post bowel resection, developed an episode of chest discomfort. Patient was dialyzed yesterday and this morning around 6 AM he complained of chest discomfort. Patient is a very poor historian and is currently lethargic. The patient was given nitroglycerin with improvement of his discomfort. He currently denies chest pain. Allergies/Medications Allergies: Coded Allergies: Sulfa (Sulfonamide Antibiotics) (Mild, HIVES 06/15/16) Home Med List: Amlodipine Besylate 10 MG TABLET 1 TAB PO DAILY BP (Reported) Calcitriol (Rocaltrol) 0.25 MCG CAPSULE 1 CAP PO DAILY KIDNEYS (Reported) Calcium Carbonate/Vitamin D3 (Os-Vishal 500+D3 Caplet) 500 MG-600 TABLET 1 TAB PO TID SUPPLEMENT (Reported) Carvedilol 25 MG TABLET 1 TAB PO BID HEART (Reported) Citric Acid/Sodium Citrate (Cytra-2 Oral Solution) 473 ML SOLUTION 15 ML PO BID KIDNEYS (Reported) Cyanocobalamin (Vitamin B-12) 1,000 MCG TABLET 1 TAB PO DAILY SUPPLEMENT ( Reported) Ferrous Sulfate 325 MG (65 MG IRON) TABLET 1 TAB PO TID SUPPLEMENT (Reported) Furosemide 80 MG TABLET 1 TAB PO BID LEG SWELLING (Reported) Hydralazine HCl 50 MG TABLET 1 TAB PO BID HEART (Reported) Insulin Aspart (Novolog) 100 UNIT/ML VIAL DM (Reported) Insulin Detemir (Levemir) 100 UNIT/ML VIAL 13 UNITS SC DAILY QAM DM Multivit-Min/FA/Lycopen/Lutein (Centrum Silver Tablet) 1 EACH TABLET 1 TAB PO DAILY SUPPLEMENT (Reported) Oxycodone HCl/Acetaminophen (Percocet 5-325 MG Tablet) 5 MG-325 MG TABLET 1 TAB PO BID PRN PAIN Prednisone 10 MG TABLET 1 TAB PO DAILY KIDNEYS (Reported) Sevelamer Carbonate (Renvela) 800 MG TABLET 1 TAB PO TIDWM KIDNEYS (Reported) Sodium Bicarbonate 325 MG TABLET 1 TAB PO BID KIDNEYS (Reported) Tramadol HCl 50 MG TABLET 1 TAB PO BIDP PRN PAIN (Reported) Vitamin B Complex (B Complex) 1 EACH TABLET 1 TAB PO DAILY SUPPLEMENT ( Reported) Warfarin Sodium (Coumadin) 5 MG TABLET 1 TAB PO DAILY BLOOD THINNER (Reported ) DOSE ACCORDING TO INR Current Medications: Current Medications Sig/Kailash Start time Last Medication Dose Route Stop Time Status Admin Acetaminophen 500 MG Q6P PRN 07/02 0815 AC 07/08 PO 1102 Albuterol Sulfate 3 ML Q 3-4 HRS PRN PRN 07/05 1100 DC INH Aspirin 81 MG ONCE ONE 07/09 815 DC 07/09 PO 07/09 0816 0845 Aspirin 81 MG DAILY 07/01 1000 AC 07/08 PO 1048 Atorvastatin Calcium 40 MG 1700 06/30 1700 AC 07/08 PO 1656 Carvedilol 25 MG BID 06/30 2200 AC 07/08 PO 2151 Diphenoxylate HCl/ 2.5 MG TID PRN 07/08 0100 AC 07/08 Atropine PO 0836 Epoetin Ludwig 3,000 UNIT MoWeFr PRN 07/08 1200 AC IV Epoetin Ludwig 2,000 UNIT MoWeFr PRN 07/08 1200 AC IV Epoetin Ludwig 6,000 UNIT PER PROTOCL PRN 07/01 1430 DC IV Insulin Aspart 0 TIDAC/HS 06/30 2100 AC 07/09 SC 0844 Insulin Detemir 6 UNITS DAILY 07/06 1000 AC 07/09 SC 0844 Iron Sucrose 100 MG PER PROTOCL PRN 07/01 1430 AC 07/03 Sodium Chloride 100 ML IV 1221 Morphine Sulfate 2 MG ONCE ONE 07/09 0915 DC IM 07/09 0916 Morphine Sulfate 2 MG ONCE ONE 07/09 0830 DC IM 07/09 0831 Morphine Sulfate 1 MG ONCE ONE 07/09 0815 DC 07/09 IV 07/09 0816 0814 Multivitamins 1 TAB DAILY 07/01 1000 AC 07/09 PO 0844 Nitroglycerin 0.4 MG ONCE ONE 07/09 0900 DC 07/09 SL 07/09 0901 1010 Nitroglycerin 0.4 MG ONCE ONE 07/09 0815 DC 07/09 SL 07/09 0816 0813 Oxycodone/ 2 TAB Q6P PRN 07/05 1115 AC 07/08 [place] PO 0610 Oxycodone/ 1 TAB Q6P PRN 07/05 1115 AC 07/08 Acetaminophen PO 2152 Patient Medication 1 ED .STK-MED ONE 07/08 1359 DC Teaching ED 07/08 1400 Prednisone 10 MG DAILY 07/05 1000 AC 07/09 PO 0844 Sevelamer Carbonate 800 MG WITH MEALS 06/30 1200 AC 07/09 PO 0845 Sodium Hypochlorite 1 CHAITANYA BID 07/05 1113 AC 07/08 TOP 2152 Tamsulosin HCl 0.4 MG DAILY 07/01 1000 AC 07/08 PO 1051 Vancomycin HCl 1,000 MG ONCE ONE 07/08 1145 DC Sodium Chloride 250 ML IV 07/08 1244 Vancomycin HCl 1 MG DAILY PRN 07/01 1300 AC 07/04 Dextrose/Water 250 ML IV 1116 Vitamin A/Vitamin D 1 CHAITANYA BID 06/30 2200 AC 07/09 TOP 0845 Zinc Oxide 1 CHAITANYA BID 06/30 2200 AC 07/09 TOP 0845 Review of Systems Review of Systems: Unobtainable due to lethargy Past History Travel History Traveled to [place] past 21 day No Medical History Blood Transfusion Hx: Yes Neurological: NONE EENT: NONE Cardiovascular: PVD, DVT Respiratory: pneumonia Gastrointestinal: Crohn's disease Hepatic: NONE Renal: nephrolithiasis, CKD Musculoskeletal: VASCULAR OCCLUSION RIGHT LEG RIGHT PATELLA FRACTURE WITH orif NON HEALING WOUNDS R. 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 Home Who Do You Live With? spouse Services at Home: None Primary Language: Luxembourgish Smoking Status: Former Smoker ETOH Use: denies use Illicit Drug Use: denies illicit drug use Functional Ability ADLs Independent: dressing, eating, toileting, bathing. Ambulation: walker IADLs Needs Assist: shopping, housework, finances, food prep, telephone, transportation, medication admin. ECHO Results (as available) Date of last Echo 12/11/15 EF% 65 Report: Normal left ventricular systolic function with mild mitral regurgitation. Exam & Diagnostic Data Vital Signs and I&O Vital Signs Date Time Temp Pulse Resp B/P Pulse O2 O2 Flow FiO2 Ox Delivery Rate 07/09 0930 98.8 94 20 120/60 95 Nasal 2.0L Cannula 07/09 0639 99.1 100 20 110/62 92 Room Air 07/08 2221 98.5 88 20 118/60 92 Room Air 07/08 2151 124/64 07/08 1651 98.2 88 136/92 93 Room Air 07/08 1124 91 Room Air Room Air 07/08 1051 84 112/50 07/08 1051 84 112/50 Intake & Output 07/09 1600 07/09 0800 07/09 0000 07/08 1600 07/08 0800 07/08 0000 Intake Total 120 120 472 720 600 Output Total 600 200 400 Balance 120 120 -128 520 200 Intake, IV 0 0 Intake, Oral 120 120 472 720 600 Number 5 2 2 Bowel Movements Output, Urine 600 200 400 Patient 142 lb 170 lb Weight Physical Exam: Patient is a well-developed well-nourished male appearing in no acute distress lethargic HEENT is unremarkable Neck is supple there is no JVD Lungs are clear Heart regular rhythm S1 and S2 are normal no gallops or rubs 1/6 systolic ejection murmur left sternal border Abdomen bowel sounds positive Extremities without edema Diagnostic Data EKG Results Sinus rhythm right bundle branch block nonspecific ST-T wave changes no changes from prior tracing Assessment/Plan Assessment/Plan 1. Atypical Chest pain with minimally elevated troponins most likely secondary to demand ischemia and renal insufficiency there are no acute ST-T changes 2. Chronic renal insufficiency on dialysis 3. Chronic wound infection 4. Antiphospholipid antibody syndrome 5. Chronic upper extremity DVT 6. Hypertension Recommendations 1. Continue current medications 2. Trend troponins 3. Obtain serial EKGs 4. Continue aspirin and carvedilol 5. Would add Imdur 30 mg daily 6. We'll plan for conservative management at present unless he develops significant symptoms, troponin elevations, or EKG changes. Thank you for allowing [facility] to participate in the care of your patient. Consult Acknowledgment - Thank you for your consult request.
--- NOTE | 2016-07-09 11:01 | PN- Housestaff ---
Subjective Follow-up For: Chest pain Chronic nonhealing ulcer of left calf ESRD T2DM Subjective: Patient seen and examined this morning. He was complaining of chest pain which started earlier this morning(please see event note for further detail) he was given sublingual nitroglycerin which brought this has been down but wasn't completely resolved, he feels very anxious, troponins came back to 0.14, ekg did not have any acute changes. Vitals remained within normal limits. Review of Systems Constitutional: Reports: see HPI. Objective Last 24 Hrs of Vital Signs/I&O Vital Signs Date Time Temp Pulse Resp B/P Pulse O2 O2 Flow FiO2 Ox Delivery Rate 07/09 09 98.8 94 20 120/60 95 Nasal 2.0L Cannula 07/09 0830 101 20 98/50 92 Nasal 1.0L Cannula 07/09 0800 Nasal 1.0L Cannula 07/09 0639 99.1 100 20 110/62 92 Room Air 07/08 2221 98.5 88 20 118/60 92 Room Air 07/08 2151 124/64 07/08 1651 98.2 88 136/92 93 Room Air 07/08 1124 91 Room Air Room Air Intake & Output 07/09 1600 07/09 0800 07/09 0000 Intake Total 120 120 Output Total Balance 120 120 Intake, Oral 120 120 Patient 64.524 kg Weight Physical Exam General Appearance: Oriented X3, Cooperative, Mild Distress Cardiovascular: Regular Rate, Normal S1, Normal S2, No Murmurs Lungs: Clear to Auscultation, Normal Air Movement Abdomen: Normal Bowel Sounds, Soft, No Tenderness Extremities: No Clubbing, No Cyanosis, Left lower limb wrapped Current Medications: Current Medications Sig/Kailash Start time Last Medication Dose Route Stop Time Status Admin Acetaminophen 500 MG Q6P PRN 07/02 0815 AC 07/08 PO 1102 Albuterol Sulfate 3 ML Q 3-4 HRS PRN PRN 07/05 1100 DC INH Aspirin 81 MG ONCE ONE 07/09 0815 DC 07/09 PO 07/09 0816 0845 Aspirin 81 MG DAILY 07/01 1000 AC 07/08 PO 1048 Atorvastatin Calcium 40 MG 1700 06/30 1700 AC 07/08 PO 1656 Carvedilol 25 MG BID 06/30 2200 AC 07/08 PO 2151 Diphenoxylate HCl/ 2.5 MG TID PRN 07/08 0100 AC 07/08 Atropine PO 0836 Epoetin Ludwig 3,000 UNIT MoWeFr PRN 07/08 1200 AC IV Epoetin Ludwig 2,000 UNIT MoWeFr PRN 07/08 1200 AC IV Epoetin Ludwig 6,000 UNIT PER PROTOCL PRN 07/01 1430 DC IV Insulin Aspart 0 TIDAC/HS 06/30 2100 AC 07/09 SC 0844 Insulin Detemir 6 UNITS DAILY 07/06 1000 AC 07/09 SC 0844 Iron Sucrose 100 MG PER PROTOCL PRN 07/01 1430 AC 12 Sodium Chloride 100 ML IV 1221 Isosorbide 30 MG DAILY 07/09 1056 AC Mononitrate PO Morphine Sulfate 2 MG ONCE ONE 07/09 0915 DC IM 07/09 0916 Morphine Sulfate 2 MG ONCE ONE 07/09 0830 DC IM 07/09 0831 Morphine Sulfate 1 MG ONCE ONE 07/09 0815 DC 07/09 IV 07/09 0816 0814 Multivitamins 1 TAB DAILY 07/01 1000 AC 07/09 PO 0844 Nitroglycerin 0.4 MG ONCE ONE 07/09 0900 DC 07/09 SL 07/09 0901 1010 Nitroglycerin 0.4 MG ONCE ONE 07/09 0815 DC 07/09 SL 07/09 0816 0813 Oxycodone/ 2 TAB Q6P PRN 07/05 1115 AC 07/08 [place]amin[place] PO 0610 Oxycodone/ 1 TAB Q6P PRN 07/05 1115 AC 07/08 Acetaminophen PO 2152 Patient Medication 1 ED .STK-MED ONE 07/08 1359 DC Teaching ED 07/08 1400 Prednisone 10 MG DAILY 07/05 1000 AC 07/09 PO 0844 Sevelamer Carbonate 800 MG WITH MEALS 06/30 1200 AC 07/09 PO 0845 Sodium Hypochlorite 1 CHAITANYA BID 07/05 1113 AC 07/08 TOP 2152 Tamsulosin HCl 0.4 MG DAILY 07/01 1000 AC 07/08 PO 1051 Vancomycin HCl 1,000 MG ONCE ONE 07/08 1145 DC Sodium Chloride 250 ML IV 07/08 1244 Vancomycin HCl 1 MG DAILY PRN 07/01 1300 AC 07/04 Dextrose/Water 250 ML IV 1116 Vitamin A/Vitamin D 1 CHAITANYA BID 06/30 2200 AC 07/09 TOP 0845 Zinc Oxide 1 CHAITANYA BID 06/30 2200 AC 07/09 TOP 0845 Last 24 Hrs of Lab/Avtar Results Last 24 Hrs of Labs/Mics: Laboratory Tests 07/09/16 0945: Sodium Pending, Potassium Pending, Chloride Pending, Carbon Dioxide Pending, Anion Gap Pending, BUN Pending, Creatinine Pending, BUN/Creatinine Ratio Pending , PT Pending, INR Pending, CBC w Diff Pending, WBC Pending, RBC Pending, Hgb Pending, Hct Pending, MCV Pending, MCH Pending, RDW Pending, Plt Count Pending, MPV Pending, PUBS MCHC Pending 07/09/16 0610: Troponin I 0.14 *H 07/08/16 1300: Anion Gap 8, Estimated GFR 17 L, BUN/Creatinine Ratio 17.5, PTH Intact 547.2 H , PT 46.9 *H, INR 4.53 *H, CBC w Diff NO MAN DIFF REQ, RBC 2.85 L, MCV 95.2 H, MCH 29.3, RDW 19.0 H, MPV 9.9, Gran % 82.4 H, Lymphocytes % 4.7 L, Monocytes % 11.3 H, Eosinophils % 1.5, Basophils % 0.1, Absolute Granulocytes 6.1, Absolute Lymphocytes 0.3 L, Absolute Monocytes 0.8 H, Absolute Eosinophils 0.1 , Absolute Basophils 0, PUBS MCHC 30.7 L, Random Vancomycin 6.8 07/08/16 1200: PTH Intact Cancelled Microbiology 07/09 858 UPPER RESP: Surveillance Culture - ORD 07/09 858 GI: Surveillance Culture - ORD Assessment/Plan Assessment: 75 y/o M with PMHx of antiphospholipid antibody syndrome, diabetes and CKD who presented with SOB, hoarseness and stridor, found to be uremic with initiation of HD, s/p debridement of chronic left leg ulcer, on IV vancomycin for soft tissue infection, currently awaiting outpatient dialysis slot. Chest pain : Around 7 AM in the morning drop response was called and patient was complained of midsternal chest pain, nonradiating, 8 on 10, He reported feeling anxious, stat EKG was obtained which did not show any acute changes. , vitals are within normal limits, troponins elevated at 0.14, patient received 2 doses of sublingual nitroglycerin and morphine for pain which as per patient helped. A decision was made to transfer the patient to telemetry floor for continuous cardiac monitoring, cardiology consult obtained please follow the recommendation , trend troponins and EKG. #Chronic left lower extremity ulcer: Has chronic nonhealing ulcers of left leg for which he sees Dr. Pretty as outpatient. S/p excisional debridement through the subcutaneous and muscular tissue with reported seropurulent drainage (06/30) and OR cultures growing diphthteroids and coag-negative Staph. Although these are not typically pathogenic organisms, currently on IV vancomycin for possible soft tissue infection. Patient's scheduled vancomycin dose on 07/05 was inadvertently not administered and cannot be administered until next session of dialysis as patient has no IV access. Vancomycin level subtherapeutic at 9.2 yesterday. Wound appears improved, however patient complains of severe pain concerning for ischemia. * ID following. Appreciate their recs. * Continue vancomycin per dialysis protocol to plan for a 7-10 day course. * Vascular surgery consulted again. Appreciate further evaluation regarding the vascular supply of left leg. * Will check random vancomycin level 07/10 morning and dose vancomycin accordingly. #Antiphospholipid antibody syndrome: S/p post right upper extremity DVT. On life -long anti-coagulation with warfarin, takes 5 mg PO QD. * Continue to check INR daily and dose warfarin accordingly to keep INR between 2-3. * INR supratherapeutic , warfarin on hold, please will follow INR levels and dose coumadin accordingly. #ESRD: Cr was 5 on admission, with gradual increase from 2-3 within the past year. Most likely etiology is progressive diabetic nephropathy. Mj cath was placed and urgent hemodialysis was initiated (06/26) with improvement of mental status. Patient is currently awaiting outpatient dialysis slot. Status post hemodialysis on 07/05 with 2-3 L ultrafiltration as tolerated over 3.25 hours, next hemodialysis for Sunday 07/08. * Nephrology following. Appreciate their recs. * Continue HD MWF. * No PICC lines should be inserted per Nephrology, as patient will need vein site for placement of graft. * Continue sevelamer 800 mg PO TIDAC. * Continue daily Nephrocaps. #T2DM: Uncontrolled blood sugars this admission, secondary to steroids. * Endocrinology following. Appreciate their recs. * Continue Levemir 6U SQ BID. * Continue NovoLog SSI TIDAC: 80-150 give 4 units, 151-200 give 6 units, 201-250 give 8 units, 251-300 give 10 units, 301-350 give 12 units and 351-400 give 14 units and NovoLog SSI QHS: 251-300 give 3 units, 301-350 give 4 units, 351-400 give 5 units. #HTN: Takes amlodipine 10 mg PO QD, carvedilol 25 mg PO BID, furosemide 80 mg PO BID and hydralazine 50 mg PO BID at home. * Holding home amlodipine, furosemide and hydralazine. * Continue home carvedilol. #Crohn's disease: Patient has been taking prednisone 10 mg PO QD for many years to prevent flares. * Continue home prednisone. Diet: Renal Dialysis Diet (regular and nectar thick liquids) DVT PPx: Warfarin and ALPs CODE: FULL Problem List: 1. Supratherapeutic INR 2. Crohns disease 3. Peripheral vascular disease 4. Antiphospholipid antibody syndrome 5. Elevated troponin 6. Chest pain Pain Ratin Pain Location: Chest Pain Goal: Remain pain free Pain Plan: Tylenol morphine Tomorrow's Labs & Rationales: as per covering team, patient transffered to tele
--- NOTE | 2016-07-09 11:20 | PN- Att Addend ---
Attending Addendum Attending Brief Note This morning patient complained of retrosternal chest pain. He described it as pressure-like sensation. He reported that the pain was worse with coughing. He denied palpitations. He initially reported some relief with a dose of nitroglycerin but then complained of recurrent pain and receive another dose of sublingual nitroglycerin. He was afebrile and hemodynamically stable. EKG showed normal sinus rhythm with no ischemic changes. Initial troponin is mildly elevated. We'll lower the his previous downward trend. He was saturating 95% on 2 L of oxygen. Patient appears lethargic and mildly confused. He was certainly more alert yesterday. HEENT: Anicteric, no pallor Neck: Supple with no jugular venous distention. Heart: S1-S2 regular with no audible murmur Lungs: Fair entry bilaterally with no added sounds Abdomen: Soft, nontender with normal bowel sounds Extremities: Chronic right upper extremity swelling. Bilateral lower extremity edema. Lenny dressing over left lower extremity. Assessment: 75-year-old male with history of antiphospholipid antibody syndrome status post chronic right upper extremity DVT on anticoagulation with Coumadin, chronic kidney disease now on hemodialysis, peripheral vascular disease with necrotic ulcers left lower extremity, Crohn's disease status post bowel resection on chronic steroid therapy and hypertension. Presented to [facility] on June 26 with complaint of worsening shortness of breath. He was found to have worsening renal disease and hemodialysis was started through a tunnelled catheter. He had elevated troponins on admission that trended upwards with no ischemic changes on EKG. Was followed by the cardiology service. Echocardiogram showed no acute changes with normal ejection fraction. He was transferred to the general medical floor for discharge planning when he developed chest pain this morning. Problems: 1. Elevated troponin 2. Antiphospholipid antibody syndrome status post right upper extremity DVT on anticoagulation 3. Necrotic left lower extremity also secondary to peripheral vascular disease 4. End-stage renal disease now hemodialysis 5. Mild confusion; probably metabolic encephalopathy 6. Chronic pain syndrome Plan: -Patient has been transferred to the telemetry service for further management.( Telemetry hold in the ICU.) -Trend cardiac enzymes and follow-up recommendations of the cardiology service. -No evidence of respiratory infection at present. Antibiotics currently on hold. -Continue Percocet for pain control. He did receive morphine in addition an account of his chest pain today. Utilize caution with close monitoring of mental status. Patient is on Percocet chronically at home.
[2016-07-09 11:54] LABS: ABSOLUTE BASOPHIL COUNT 0 /CUMM (0.0-0.2); ABSOLUTE EOSINOPHIL COUNT 0.1 /CUMM (0.0-0.7); ABSOLUTE GRANULOCYTE CT 6.3 /CUMM (1.4-6.5); ABSOLUTE LYMPH COUNT 0.6 /CUMM (1.2-3.4); ABSOLUTE MONOCYTE COUNT 1.1 /CUMM (0.10-0.60); BASOPHIL % 0.3 % (0.0-2.0); EOSINOPHIL % 1.3 % (0-5); HEMATOCRIT 27.7 % (42-52); MEAN CORPUSCULAR HGB 29.1 PG (27.0-31.0); MEAN CORPUSCULAR HGB CONC 30.9 G/DL (33.0-37.0); MEAN CORPUSCULAR VOLUME 94.4 FL (80.0-94.0); PLATELET COUNT 136 /CUMM (130-400); PT 48.4 SEC (9.4-12.5); RBC DISTRIBUTION WIDTH 18.6 % (11.5-14.5); RED BLOOD CELL CT 2.93 /CUMM (4.70-6.10); WHITE BLOOD CELL COUNT 8.1 /CUMM (4.8-10.8)
--- NOTE | 2016-07-09 13:22 | NUR ---
OCCUPATIONAL THERAPY NOTE: CHART REVIEWED, PT IS S/P RAPID RESPONSE THIS AM 2N TO CARDIC EVENT. PT TRANSFERRED TO ICU. OT IS ON HOLD. PLEASE RE-CONSULT WHEN MEDICALLY APPROPRIATE.
--- NOTE | 2016-07-09 15:58 | PN- Vascular Surgery ---
Surgical Brief Attending Note Brief Attending Note: VASCULAR ATTENDING NOTE 75-year-old male now status post debridement. Patient is on IV antibiotics. Wound VAC was removed last week for 0.5% Dakins. Has had some discomfort. Patient is still on high-dose steroids which is inhibiting wound healing please readjust and decrease if possible. This has not been addressed. Pt. now in ICU due to chest pain. Physical exam: Afebrile vital signs stable Exam exam reveals lower extremity is well-perfused, does have necrosis at the superior and inferior portion of the wound- there is some mild granulation tissue. A/P stable wound although not healingy Continue IV antibiotics NEED TO LOWER STEROIDS Check Albumin/Pre-albumin We'll continue 0.5% Dakins-offload at all times
[2016-07-09 16:30] VITALS: BP 118/60
--- NOTE | 2016-07-09 21:03 | NUR ---
PT TELE HOLD. PT ALERT, FORGETFUL, FOLLOWS COMMANDS, DENIES ANY PAIN AT PRESENT. BREATH SOUNDS CLEAR, CRACKLES AT BASES BILATERALLY. NO SOUGH, SOB OR RESP DISTRESS NOTED AT PRESENT. MONITOR SHOWS NSR, OCC PVC'S NOTED. ABD SOFT, NONTENDER, NONDISTENDED, POSITIVE BOWEL SOUNDS. VOIDING THICK ELO URINE IN URINAL. LLE DSG C/D/I. BUTTOCKS WITH RED-PURPLE AREA, MULTIPLE OPEN WOUNDS WITHIN PURPLE-RED AREA NOTED. RT ARM SWOLLEN, RED-ELEVATED
[2016-07-09 23:00] VITALS: BP 100/46; BP 142/70
--- NOTE | 2016-07-10 06:11 | NUR ---
WHILE TURNING PT, HE C/O OF MIDSTERNAL NONRADITING CHEST PAIN-REPORTED TO DR. MADISON-TROPONIN TO BE ADDED TO AM LABS, STATED SHE WOULD CALL DR. PANIAGUA. WILL MONITOR
[2016-07-10 06:35] LABS: ABSOLUTE BASOPHIL COUNT 0 /CUMM (0.0-0.2); ABSOLUTE EOSINOPHIL COUNT 0.1 /CUMM (0.0-0.7); ABSOLUTE GRANULOCYTE CT 5.2 /CUMM (1.4-6.5); ABSOLUTE LYMPH COUNT 0.5 /CUMM (1.2-3.4); ABSOLUTE MONOCYTE COUNT 1.1 /CUMM (0.10-0.60); BASOPHIL % 0.5 % (0.0-2.0); EOSINOPHIL % 1.1 % (0-5); GRANULOCYTE % 74.6 % (42.2-75.2); MEAN CORPUSCULAR HGB 29.1 PG (27.0-31.0); MEAN CORPUSCULAR HGB CONC 31.5 G/DL (33.0-37.0); MEAN CORPUSCULAR VOLUME 92.6 FL (80.0-94.0); MEAN PLATELET VOLUME 9.2 FL (7.4-10.4); PLATELET COUNT 132 /CUMM (130-400); RBC DISTRIBUTION WIDTH 18.4 % (11.5-14.5); RED BLOOD CELL CT 2.59 /CUMM (4.70-6.10); WHITE BLOOD CELL COUNT 6.9 /CUMM (4.8-10.8)
[2016-07-10 06:44] LABS: PT 45.5 SEC (9.4-12.5)
--- NOTE | 2016-07-10 07:38 | NUR ---
PT SLEPT MOST OF NIGHT. PT CONTINUES TO C/O CHEST PAIN-PT EXAMINED BY DR. MADISON AND DR. COTTON. PT STATES HIS CHEST PAIN IS THE SAME YESTERDAY. 12 LEAD EKG DONE ORDERED. MONITOR SHOWS NSR, OCC PVC'S NOTED THOUGHOUT SHIFT. NO BM'S THOUGHOUT SHIFT. NO OTHER CHANGES IN PT ASSESSMENTS NOTED THOUGHOUT SHIFT
--- NOTE | 2016-07-10 07:56 | PN- Diabetes ---
Assessment/Plan Assessment: Patient has been having chest pain. He has mild elevation of his troponin. He was moved to the intensive care unit. He continues on dialysis. He has been seen by cardiology who has recommended conservative management at this time. Levemir was decreased to 6 units daily. He is on sliding scale NovoLog before meals which was decreased yesterday.. Fingerstiick blood sugars yesterday were 103 before breakfast, 89 before lunch, 116 before dinner, and 128 at bedtime. This morning the patient's fingerstick blood sugar is only 81. Plan: Suggest discontine Levemir. Continue present sliding scale NovoLog before meals with a separate sliding-scale at bedtime as written. If the patient does not eat his pre-meal NovoLog should be held. Subjective Subjective: Complains of chest pain Review of Systems Constitutional: Denies: chills, fever. Cardiovascular: Reports: chest pain. Respiratory: Reports: cough. Denies: short of breath. Gastrointestinal: Denies: nausea, vomiting. Neurological/Psychological: Reports: confusion. Objective Last 24 Hrs of Vital Signs/I&O Vital Signs Date Time Temp Pulse Resp B/P Pulse O2 O2 Flow FiO2 Ox Delivery Rate 07/10 0000 96 Nasal 2.0L Cannula 07/09 2300 98.3 73 20 100/46 97 Nasal 2.0L Cannula 07/09 2152 91 20 140/70 07/09 1630 99.7 91 20 118/60 96 Nasal 2.0L Cannula 07/09 1600 97 Nasal 2.0L Cannula 07/09 1247 79 120/56 07/09 1104 96 120/56 07/09 0930 95 Nasal 2.0L Cannula 07/09 0930 98.8 94 20 120/60 95 Nasal 2.0L Cannula 07/09 0830 101 20 98/50 92 Nasal 1.0L Cannula 07/09 0800 Nasal 1.0L Cannula Intake & Output 07/10 0800 07/10 0000 07/09 1600 Intake Total 0 120 320 Output Total 0 225 Balance 0 -105 320 Intake, Oral 0 120 320 Number 0 0 1 Bowel Movements Output, Urine 0 225 Vital Signs Date Time Temp Pulse Resp B/P Pulse O2 O2 Flow FiO2 Ox Delivery Rate 07/10 0000 96 Nasal 2.0L Cannula 07/09 2300 98.3 73 20 100/46 97 Nasal 2.0L Cannula 07/09 2152 91 20 140/70 07/09 1630 99.7 91 20 118/60 96 Nasal 2.0L Cannula 07/09 1600 97 Nasal 2.0L Cannula 07/09 1247 79 120/56 07/09 1104 96 120/56 07/09 0930 95 Nasal 2.0L Cannula 07/09 09 98.8 94 20 120/60 95 Nasal 2.0L Cannula 07/09 0830 101 20 98/50 92 Nasal 1.0L Cannula 07/09 0800 Nasal 1.0L Cannula Intake & Output 07/10 0800 07/10 0000 07/09 1600 Intake Total 0 120 320 Output Total 0 225 Balance 0 -105 320 Intake, Oral 0 120 320 Number 0 0 1 Bowel Movements Output, Urine 0 225 Physical Exam General Appearance: alert, awake, anxious Neck: normal inspection Respiratory: no respiratory distress Abdomen: normal bowel sounds, soft Extremities: left lower leg bandaged. Current Medications: Current Medications Sig/Kailash Start time Last Medication Dose Route Stop Time Status Admin Acetaminophen 500 MG Q6P PRN 07/02 0815 AC 07/08 PO 1102 Aspirin 81 MG ONCE ONE 07/09 0815 DC 07/09 PO 07/09 0816 0845 Aspirin 81 MG DAILY 07/01 1000 AC 07/09 PO 1103 Atorvastatin Calcium 40 MG 1700 06/30 1700 AC 07/09 PO 1707 Carvedilol 25 MG BID 06/30 2200 AC 07/09 PO 2152 Diphenoxylate HCl/ 2.5 MG TID PRN 07/08 0100 AC 07/08 Atropine PO 0836 Epoetin Ludwig 3,000 UNIT MoWeFr PRN 07/08 1200 AC IV Epoetin Ludwig 2,000 UNIT MoWeFr PRN 07/08 1200 AC IV Insulin Aspart 0 TIDAC/HS 06/30 2100 AC 07/09 SC 1708 Insulin Detemir 6 UNITS DAILY 07/06 1000 AC 07/09 SC 0844 Iron Sucrose 100 MG PER PROTOCL PRN 07/01 1430 AC 07/03 Sodium Chloride 100 ML IV 1221 Isosorbide 30 MG DAILY 07/09 1056 AC 07/09 Mononitrate PO 1247 Magnesium Oxide 400 MG ONE ONE 07/10 0745 DC PO 07/10 0746 Morphine Sulfate 2 MG ONCE ONE 07/09 0915 DC IM 07/09 0916 Morphine Sulfate 2 MG ONCE ONE 07/09 0830 DC IM 07/09 0831 Morphine Sulfate 1 MG ONCE ONE 07/09 0815 DC 07/09 IV 07/09 0816 0814 Multivitamins 1 TAB DAILY 07/01 1000 AC 07/09 PO 0844 Nitroglycerin 0.4 MG ONCE ONE 07/09 0900 DC 07/09 SL 07/09 0901 1010 Nitroglycerin 0.4 MG ONCE ONE 07/09 0815 DC 07/09 SL 07/09 0816 0813 Oxycodone/ 2 TAB Q6P PRN 07/05 1115 AC 07/09 Acetaminophen PO 1248 Oxycodone/ 1 TAB Q6P PRN 07/05 1115 AC 07/09 Acetaminophen PO 2225 Prednisone 10 MG DAILY 07/05 1000 AC 07/09 PO 0844 Sevelamer Carbonate 800 MG WITH MEALS 06/30 1200 AC 07/09 PO 1707 Sodium Hypochlorite 1 CHAITANYA BID 07/05 1113 AC 07/09 TOP 2153 Tamsulosin HCl 0.4 MG DAILY 07/01 1000 AC 07/09 PO 1104 Vancomycin HCl 1 MG DAILY PRN 07/01 1300 AC 07/04 Dextrose/Water 250 ML IV 1116 Vitamin A/Vitamin D 1 CHAITANYA BID 06/30 2200 AC 07/09 TOP 2152 Zinc Oxide 1 CHAITANYA BID 06/30 2200 AC 07/09 TOP 2152 Current Medications Sig/Kailash Start time Last Medication Dose Route Stop Time Status Admin Acetaminophen 500 MG Q6P PRN 07/02 0815 AC 07/08 PO 1102 Aspirin 81 MG ONCE ONE 07/09 0815 DC 07/09 PO 07/09 0816 0845 Aspirin 81 MG DAILY 07/01 1000 AC 07/09 PO 1103 Atorvastatin Calcium 40 MG 1700 06/30 1700 AC 07/09 PO 1707 Carvedilol 25 MG BID 06/30 2200 AC 07/09 PO 2152 Diphenoxylate HCl/ 2.5 MG TID PRN 07/08 0100 AC 07/08 Atropine PO 0836 Epoetin Ludwig 3,000 UNIT MoWeFr PRN 07/08 1200 AC IV Epoetin Ludwig 2,000 UNIT MoWeFr PRN 07/08 1200 AC IV Insulin Aspart 0 TIDAC/HS 06/30 2100 AC 07/09 SC 1708 Insulin Detemir 6 UNITS DAILY 07/06 1000 AC 07/09 SC 0844 Iron Sucrose 100 MG PER PROTOCL PRN 07/01 1430 AC 07/03 Sodium Chloride 100 ML IV 1221 Isosorbide 30 MG DAILY 07/09 1056 AC 07/09 Mononitrate PO 1247 Magnesium Oxide 400 MG ONE ONE 07/10 0745 UNVr PO 07/10 0746 Morphine Sulfate 2 MG ONCE ONE 07/09 0915 DC IM 07/09 0916 Morphine Sulfate 2 MG ONCE ONE 07/09 0830 DC IM 07/09 0831 Morphine Sulfate 1 MG ONCE ONE 07/09 815 DC 07/09 IV 07/09 0816 0814 Multivitamins 1 TAB DAILY 07/01 1000 AC 07/09 PO 0844 Nitroglycerin 0.4 MG ONCE ONE 07/09 0900 DC 07/09 SL 07/09 0901 1010 Nitroglycerin 0.4 MG ONCE ONE 07/09 0815 DC 07/09 SL 07/09 0816 0813 Oxycodone/ 2 TAB Q6P PRN 07/05 1115 AC 07/09 Acetaminophen PO 1248 Oxycodone/ 1 TAB Q6P PRN 07/05 1115 AC 07/09 Acetaminophen PO 2225 Prednisone 10 MG DAILY 07/05 1000 AC 07/09 PO 0844 Sevelamer Carbonate 800 MG WITH MEALS 06/30 1200 AC 07/09 PO 1707 Sodium Hypochlorite 1 CHAITANYA BID 07/05 1113 AC 07/09 TOP 2153 Tamsulosin HCl 0.4 MG DAILY 07/01 1000 AC 07/09 PO 1104 Vancomycin HCl 1 MG DAILY PRN 07/01 1300 AC 07/04 Dextrose/Water 250 ML IV 1116 Vitamin A/Vitamin D 1 CHAITANYA BID 06/30 2200 AC 07/09 TOP 2152 Zinc Oxide 1 CHAITANYA BID 06/30 2200 AC 07/09 TOP 2152
[2016-07-10 08:00] VITALS: BP 122/58
--- NOTE | 2016-07-10 08:30 | PN- Housestaff ---
SHABANA HEATH,[facility] 07/10/16 0830: Subjective Follow-up For: Chest pain Chronic nonhealing ulcer of left calf ESRD T2DM Tele-Events Since Last Visit: neo GUY at 6:13 AM and and couplets overnight, HR 80-92 Subjective: I saw and examined the patient today, he is alert awake oriented in no distress, denies chest pain, SOB, palpitation. Review of Systems Constitutional: Denies: chills, fever. EENTM: Reports: no symptoms. Cardiovascular: Denies: chest pain, palpitations, peripheral edema. Respiratory: Denies: cough, short of breath. Gastrointestinal: Denies: abdominal pain, changes in stool. Genitourinary: Reports: no symptoms. Musculoskeletal: Reports: no symptoms. Objective Last 24 Hrs of Vital Signs/I&O Vital Signs Date Time Temp Pulse Resp B/P Pulse O2 O2 Flow FiO2 Ox Delivery Rate 07/10 1600 94 Nasal 2.0L Cannula 07/10 1600 98.9 106 18 138/78 94 Nasal 2.0L Cannula 07/10 0800 96 Nasal 2.0L Cannula 07/10 0800 98.8 93 18 122/58 96 Nasal 2.0L Cannula 07/10 0000 96 Nasal 2.0L Cannula 07/09 2300 98.3 73 20 100/46 97 Nasal 2.0L Cannula 07/09 2152 91 20 140/70 Intake & Output 07/10 1600 07/10 0800 07/10 0000 Intake Total 580 0 120 Output Total 0 225 Balance 580 0 -105 Intake, IV 280 Intake, Oral 300 0 120 Number 1 0 0 Bowel Movements Output, Urine 0 225 Physical Exam General Appearance: Alert, Oriented X3, Cooperative, No Acute Distress Skin: left lower leg necrotic ulcer extending from below the knee downwards to distal third of the lower leg HEENT: Atraumatic, PERRLA, EOMI, Mucous Membr. moist/pink Neck: Supple, No JVD Cardiovascular: Regular Rate, Normal S1, Normal S2, No Murmurs Lungs: Clear to Auscultation, Normal Air Movement Abdomen: Normal Bowel Sounds, Soft, No Tenderness Extremities: No Clubbing, No Cyanosis, No Edema, Normal Pulses Vascular: Normal Pulses, Pulses Symmetrical Current Medications: Current Medications Sig/Kailash Start time Last Medication Dose Route Stop Time Status Admin Acetaminophen 500 MG Q6P PRN 07/02 0815 AC 07/08 PO 1102 Aspirin 81 MG DAILY 07/01 1000 AC 07/10 PO 1334 Atorvastatin Calcium 40 MG 1700 06/30 1700 AC 07/10 PO 1618 Carvedilol 25 MG BID 06/30 2200 AC 07/10 PO 1335 Diphenoxylate HCl/ 2.5 MG TID PRN 07/08 0100 AC 07/08 Atropine PO 0836 Epoetin Ludwig 3,000 UNIT MoWeFr PRN 07/08 1200 AC IV Epoetin Ludwig 2,000 UNIT MoWeFr PRN 07/08 1200 AC IV Insulin Aspart 0 TIDAC/HS 06/30 2100 AC 07/10 SC 1704 Insulin Detemir 6 UNITS DAILY 07/06 1000 AC 07/10 SC 1333 Iron Sucrose 100 MG PER PROTOCL PRN 07/01 1430 AC 07/03 Sodium Chloride 100 ML IV 1221 Isosorbide 30 MG DAILY 07/09 1056 AC 07/10 Mononitrate PO 1335 Magnesium Oxide 400 MG ONE ONE 07/10 0745 DC 07/10 PO 07/10 0746 1340 Multivitamins 1 TAB DAILY 07/01 1000 AC 07/10 PO 1335 Oxycodone/ 2 TAB Q6P PRN 07/05 1115 AC 07/10 Acetaminophen PO 1619 Oxycodone/ 1 TAB Q6P PRN 07/05 1115 AC 07/09 Acetaminophen PO 2225 Prednisone 10 MG DAILY 07/05 1000 AC 07/10 PO 1336 Sevelamer Carbonate 800 MG WITH MEALS 06/30 1200 AC 07/10 PO 1618 Sodium Hypochlorite 1 CHAITANYA BID 07/05 1113 AC 07/10 TOP 1334 Tamsulosin HCl 0.4 MG DAILY 07/01 1000 AC 07/10 PO 1335 Vancomycin HCl 1,000 MG ONCE ONE 07/10 1300 DC 07/10 Sodium Chloride 250 ML IV 07/10 1359 1336 Vancomycin HCl 1 MG DAILY PRN 07/01 1300 AC 07/04 Dextrose/Water 250 ML IV 1116 Vitamin A/Vitamin D 1 CHAITANYA BID 06/30 2200 AC 07/10 TOP 1334 Zinc Oxide 1 CHAITANYA BID 06/30 2200 AC 07/10 TOP 1334 Last 24 Hrs of Lab/Avtar Results Last 24 Hrs of Labs/Mics: Laboratory Tests 07/10/16 1000: 07/10/16 0540: Anion Gap 8, Estimated GFR 21 L, BUN/Creatinine Ratio 13.8, Magnesium 1.5 L, Albumin 2.1 L, Prealbumin 11.9 L, PT 45.5 *H, INR 4.40 *H, CBC w Diff NO MAN DIFF REQ, RBC 2.59 L, MCV 92.6, MCH 29.1, RDW 18.4 H, MPV 9.2, Gran % 74.6, Lymphocytes % 7.9 L, Monocytes % 15.9 H, Eosinophils % 1.1, Basophils % 0.5, Absolute Granulocytes 5.2, Absolute Lymphocytes 0.5 L, Absolute Monocytes 1.1 H, Absolute Eosinophils 0.1, Absolute Basophils 0, PUBS MCHC 31.5 L, Random Vancomycin 8.9 Assessment/Plan Assessment: 75 y/o M with PMHx of antiphospholipid antibody syndrome, diabetes and CKD who presented with SOB, hoarseness and stridor, found to be uremic with initiation of HD, s/p debridement of chronic left leg ulcer, on IV vancomycin for soft tissue infection, currently awaiting outpatient dialysis slot. NSTEMI, likely demand ischemia yesterday morning patient complained of midsternal chest pain, nonradiating, EKG was negative for any acute changes. Troponins elevated at 0.14. patient was transferred to telemetry floor for continuous cardiac monitoring, cardiology on board repeat troponin trended down. Currently pain free and patient can be transferred back to . Chronic left lower extremity ulcer: Has chronic nonhealing ulcers of left leg for which he sees Dr. Pretty as outpatient. S/p excisional debridement through the subcutaneous and muscular tissue with reported seropurulent drainage (06/30) and OR cultures growing diphthteroids and coag-negative Staph. Although these are not typically pathogenic organisms, currently on IV vancomycin for possible soft tissue infection.Wound appears improved, however patient complains of severe pain concerning for ischemia. * ID following * Continue vancomycin per dialysis protocol * Vascular surgery consulted again. Appreciate further evaluation regarding the vascular supply of left leg. * Check vancomycin level ont he morning of dialysis day and dose vancomycin accordingly. Antiphospholipid antibody syndrome: chronic right upper extremity DVT. On life- long anti-coagulation with warfarin, takes 5 mg PO QD. * Continue to check INR daily and dose warfarin accordingly to keep INR between 2-3. * INR supratherapeutic , warfarin on hold, please will follow INR levels and dose coumadin accordingly. ESRD: Cr was 5 on admission, with gradual increase from 2-3 within the past year. Most likely etiology is progressive diabetic nephropathy. Mj cath was placed and urgent hemodialysis was initiated (06/26) with improvement of mental status. Patient is currently awaiting outpatient dialysis slot. * Nephrology following * Continue HD MW * No PICC lines should be inserted per Nephrology, as patient will need vein site for placement of graft. * Continue sevelamer 800 mg PO TIDAC. * Continue daily Nephrocaps T2DM: Uncontrolled blood sugars this admission, secondary to steroids. * Endocrinology following * Stopped Levemir 6U SQ BID * Continue NovoLog SSI TIDAC as suggested HTN: Takes amlodipine 10 mg PO QD, carvedilol 25 mg PO BID, furosemide 80 mg PO BID and hydralazine 50 mg PO BID at home. * Holding home amlodipine, furosemide and hydralazine. * Continue home carvedilol. Crohn's disease: Patient has been taking prednisone 10 mg PO QD for many years to prevent flares. * Have continued home prednisone. * Will talk to GI and Endocrine tomorrow to see if we can decrease prednisone and help with the healing of the ulcer. Diet: Renal Dialysis Diet (regular and nectar thick liquids) DVT PPx: Warfarin and ALPs CODE: FULL Problem List: 1. Chest pain 2. Crohns disease 3. Peripheral vascular disease 4. Bilateral vocal cord paralysis 5. Type 2 diabetes mellitus 6. Chronic ulcer of left lower extremity 7. Antiphospholipid antibody syndrome 8. Supraglottic edema 9. End stage renal disease Pain Ratin Pain Location: lower left leg Pain Goal: Pain 4 or less Pain Plan: Tylenol Oxycodone Tomorrow's Labs & Rationales: cbc bep Mag INR ARTURO HEATH,HARRY 07/10/16 1405: Attending MD Review Statement Attending Statement Attending MD Statement: examined this patient, discuss w/resident/PA/GAS TRANSFER OPERATOR, agreed w/resident/PA/GAS TRANSFER OPERATOR, discussed with family, reviewed EMR data (avail), discussed with nursing, discussed with case mgmt, amended to note Attending Assessment/Plan: Patient seen and examined. Resting comfortably and not in acute distress. He appears less confused today compared to yesterday no still very lethargic. Denies any chest pain currently. He did complain of chest pain earlier on today just prior to dialysis. His cardiac enzymes have been flat with levels of 0.14 and 0.13 yesterday. He had no EKG changes. He was evaluated by his cardiology service and impression is that the abnormal troponins were secondary to demand ischemia versus a nonspecific elevation in the setting of renal disease. No further cardiac workup is been recommended at this time. On examination he is not in acute distress. He has a reproducible tenderness on examination of his chest wall bilaterally. Lungs are clear bilaterally. Left lower extremity is wrapped with no drainage. Plan: -Downgraded to general medical service. -Awaiting availability of outpatient dialysis slot. -Follow-up with the patient's gastroenterology service regarding tapering off his steroid therapy to allow for wound healing. -Further intervention by the vascular surgery service once he has completed his antibiotic course.
--- NOTE | 2016-07-10 10:36 | PN- Nephrology ---
Assessment/Plan Assessment: 1. ESRD likely secondary to diabetic nephropathy 2. Diabetes mellitus with peripheral vascular disease status post right TMA, status post debridement left ankle ulcer 3. Atypical chest pain 4. Antiphospholipid antibody syndrome status post DVT Suggestion: 1. Hemodialysis today in progress with 2-3 L ultrafiltration as tolerated over 3.25 hours; next hemodialysis for Thursday 07/12 2. Antibiotic therapy per ID 3. Cardiology following 4. Vascular access surgery once infection no longer an issue 5. Awaiting outpatient dialysis slot Subjective Subjective: Patient again had some atypical chest discomfort this morning (before dialysis). He has some tenderness over his right anterior chest wall area. Hemodialysis in progress with 2-3 L ultrafiltration goal as tolerated. To check URR today. Objective Vital Signs and I&Os Vital Signs Date Time Temp Pulse Resp B/P Pulse O2 O2 Flow FiO2 Ox Delivery Rate 07/10 0800 96 Nasal 2.0L Cannula 07/10 0800 98.8 93 18 122/58 96 Nasal 2.0L Cannula 07/10 0000 96 Nasal 2.0L Cannula 07/09 2300 98.3 73 20 100/46 97 Nasal 2.0L Cannula 07/09 2152 91 20 140/70 07/09 1630 99.7 91 20 118/60 96 Nasal 2.0L Cannula 07/09 1600 97 Nasal 2.0L Cannula 07/09 1247 79 120/56 07/09 1104 96 120/56 Intake & Output 07/10 1600 07/10 0400 07/09 1600 07/09 0400 07/08 1600 07/08 0400 Intake Total 0 120 745 157 8318 600 Output Total 0 225 800 400 Balance 0 -105 440 120 392 200 Intake, IV 0 Intake, Oral 0 120 165 380 3554 600 Number 0 0 1 7 2 Bowel Movements Output, Urine 0 225 800 400 Patient 142 lb 170 lb Weight Physical Exam: General: Well-developed white male in NAD Skin: No rash or jaundice HEENT: Conjunctivae pink, sclerae anicteric, mucous membranes moist Neck: Without masses or thyromegaly, no supraclavicular or cervical adenopathy; there is a right IJ tunneled dialysis catheter in place Chest: Clear to P&A; there is some tenderness to palpation over the right anterior chest wall Heart: Regular rate and rhythm without S3 or rub Abdomen: Soft and nontender without palpable masses or organomegaly Extremities: Lower extremity dressing intact, trace edema Neuro: No focal findings, no asterixis or myoclonus Results Pertinent Lab Results: Laboratory Tests 07/10 07/09 07/09 0540 1800 1250 Chemistry Sodium (137 - 145 mmol/L) 138 Potassium (3.5 - 5.1 mmol/L) 4.3 Chloride (98 - 107 mmol/L) 104 Carbon Dioxide (22 - 30 mmol/L) 26 Anion Gap (5 - 16) 8 BUN (9 - 20 mg/dL) 40 H Creatinine (0.7 - 1.2 mg/dL) 2.9 H Estimated GFR (>60 ml/min) 21 L BUN/Creatinine Ratio (7 - 25 %) 13.8 Magnesium (1.6 - 2.3 mg/dL) 1.5 L Troponin I (<0.11 ng/ml) Cancelled 0.13 *H Albumin (3.5 - 5.0 g/dL) 2.1 L Prealbumin (17.6 - 36.0 mg/dL) 11.9 L Coagulation PT (9.4 - 12.5 SEC) 45.5 *H INR (0.90 - 1.17) 4.40 *H Hematology CBC w Diff NO MAN DIFF REQ WBC (4.8 - 10.8 /CUMM) 6.9 RBC (4.70 - 6.10 /CUMM) 2.59 L Hgb (14.0 - 18.0 G/DL) 7.5 L Hct (42 - 52 %) 24.0 L MCV (80.0 - 94.0 FL) 92.6 MCH (27.0 - 31.0 PG) 29.1 RDW (11.5 - 14.5 %) 18.4 H Plt Count (130 - 400 /CUMM) 132 MPV (7.4 - 10.4 FL) 9.2 Gran % (42.2 - 75.2 %) 74.6 Lymphocytes % (20.5 - 51.1 %) 7.9 L Monocytes % (1.7 - 9.3 %) 15.9 H Eosinophils % (0 - 5 %) 1.1 Basophils % (0.0 - 2.0 %) 0.5 Absolute Granulocytes (1.4 - 6.5 /CUMM) 5.2 Absolute Lymphocytes (1.2 - 3.4 /CUMM) 0.5 L Absolute Monocytes (0.10 - 0.60 /CUMM) 1.1 H Absolute Eosinophils (0.0 - 0.7 /CUMM) 0.1 Absolute Basophils (0.0 - 0.2 /CUMM) 0 PUBS MCHC (33.0 - 37.0 G/DL) 31.5 L Toxicology Random Vancomycin (ug/ml) 8.9 07/09 07/09 0945 0610 Chemistry Sodium (137 - 145 mmol/L) 139 Potassium (3.5 - 5.1 mmol/L) 4.2 Chloride (98 - 107 mmol/L) 103 Carbon Dioxide (22 - 30 mmol/L) 28 Anion Gap (5 - 16) 7 BUN (9 - 20 mg/dL) 31 H Creatinine (0.7 - 1.2 mg/dL) 2.4 H Estimated GFR (>60 ml/min) 27 L BUN/Creatinine Ratio (7 - 25 %) 12.9 Troponin I (<0.11 ng/ml) 0.14 *H Coagulation PT (9.4 - 12.5 SEC) 48.4 *H INR (0.90 - 1.17) 4.68 *H Hematology CBC w Diff NO MAN DIFF REQ WBC (4.8 - 10.8 /CUMM) 8.1 RBC (4.70 - 6.10 /CUMM) 2.93 L Hgb (14.0 - 18.0 G/DL) 8.5 L Hct (42 - 52 %) 27.7 L MCV (80.0 - 94.0 FL) 94.4 H MCH (27.0 - 31.0 PG) 29.1 RDW (11.5 - 14.5 %) 18.6 H Plt Count (130 - 400 /CUMM) 136 MPV (7.4 - 10.4 FL) 10.0 Gran % (42.2 - 75.2 %) 78.0 H Lymphocytes % (20.5 - 51.1 %) 7.1 L Monocytes % (1.7 - 9.3 %) 13.3 H Eosinophils % (0 - 5 %) 1.3 Basophils % (0.0 - 2.0 %) 0.3 Absolute Granulocytes (1.4 - 6.5 /CUMM) 6.3 Absolute Lymphocytes (1.2 - 3.4 /CUMM) 0.6 L Absolute Monocytes (0.10 - 0.60 /CUMM) 1.1 H Absolute Eosinophils (0.0 - 0.7 /CUMM) 0.1 Absolute Basophils (0.0 - 0.2 /CUMM) 0 PUBS MCHC (33.0 - 37.0 G/DL) 30.9 L /12 12/12 1300 1200 Chemistry Sodium (137 - 145 mmol/L) 135 L Potassium (3.5 - 5.1 mmol/L) 5.1 Chloride (98 - 107 mmol/L) 101 Carbon Dioxide (22 - 30 mmol/L) 26 Anion Gap (5 - 16) 8 BUN (9 - 20 mg/dL) 63 H Creatinine (0.7 - 1.2 mg/dL) 3.6 H Estimated GFR (>60 ml/min) 17 L BUN/Creatinine Ratio (7 - 25 %) 17.5 PTH Intact (13.8 - 85 pg/ml) 547.2 H Cancelled Coagulation PT (9.4 - 12.5 SEC) 46.9 *H INR (0.90 - 1.17) 4.53 *H Hematology CBC w Diff NO MAN DIFF REQ WBC (4.8 - 10.8 /CUMM) 7.4 RBC (4.70 - 6.10 /CUMM) 2.85 L Hgb (14.0 - 18.0 G/DL) 8.3 L Hct (42 - 52 %) 27.1 L MCV (80.0 - 94.0 FL) 95.2 H MCH (27.0 - 31.0 PG) 29.3 RDW (11.5 - 14.5 %) 19.0 H Plt Count (130 - 400 /CUMM) 126 L MPV (7.4 - 10.4 FL) 9.9 Gran % (42.2 - 75.2 %) 82.4 H Lymphocytes % (20.5 - 51.1 %) 4.7 L Monocytes % (1.7 - 9.3 %) 11.3 H Eosinophils % (0 - 5 %) 1.5 Basophils % (0.0 - 2.0 %) 0.1 Absolute Granulocytes (1.4 - 6.5 /CUMM) 6.1 Absolute Lymphocytes (1.2 - 3.4 /CUMM) 0.3 L Absolute Monocytes (0.10 - 0.60 /CUMM) 0.8 H Absolute Eosinophils (0.0 - 0.7 /CUMM) 0.1 Absolute Basophils (0.0 - 0.2 /CUMM) 0 PUBS MCHC (33.0 - 37.0 G/DL) 30.7 L Toxicology Random Vancomycin (ug/ml) 6.8
--- NOTE | 2016-07-10 10:49 | PN- Cardiology ---
Subjective Subjective: Doing well. Denies any dyspnea or palpitations. Has some mild residual chest pain which is reproducible with movement and palpation. Objective Vital Signs and I&Os Vital Signs Date Time Temp Pulse Resp B/P Pulse O2 O2 Flow FiO2 Ox Delivery Rate 07/10 0800 96 Nasal 2.0L Cannula 07/10 0800 98.8 93 18 122/58 96 Nasal 2.0L Cannula 07/10 0000 96 Nasal 2.0L Cannula 07/09 2300 98.3 73 20 100/46 97 Nasal 2.0L Cannula 07/09 2152 91 20 140/70 07/09 1630 99.7 91 20 118/60 96 Nasal 2.0L Cannula 07/09 1600 97 Nasal 2.0L Cannula 07/09 1247 79 120/56 07/09 1104 96 120/56 Intake & Output 07/10 1600 07/10 0800 07/10 0000 07/09 1600 07/09 0800 07/09 0000 Intake Total 0 120 320 120 120 Output Total 0 225 Balance 0 -105 320 120 120 Intake, Oral 0 120 320 120 120 Number 0 0 1 Bowel Movements Output, Urine 0 225 Patient 142 lb Weight Physical Exam: General: no apparent distress. Alert. Laying flat. Eyes: No obvious scleral icterus. HEENT: No jugular venous distention or abnormal jugular venous pulsations. Cardiovascular: Normal intensity S1/S2. PMI not grossly displaced. Respiratory: No rales or rhonchi Abdomen: Soft, nontender with no guarding or rebound tenderness. Musculoskeletal: No cyanosis noted, lower extremity ulceration noted Skin: Warm Current Medications: Current Medications Sig/Kailash Start time Last Medication Dose Route Stop Time Status Admin Acetaminophen 500 MG Q6P PRN 07/02 0815 AC 07/08 PO 1102 Aspirin 81 MG DAILY 07/01 1000 AC 07/09 PO 1103 Atorvastatin Calcium 40 MG 1700 06/30 1700 AC 07/09 PO 1707 Carvedilol 25 MG BID 06/30 2200 AC 07/09 PO 2152 Diphenoxylate HCl/ 2.5 MG TID PRN 07/08 0100 AC 07/08 Atropine PO 0836 Epoetin Ludwig 3,000 UNIT MoWeFr PRN 07/08 1200 AC IV Epoetin Ludwig 2,000 UNIT MoWeFr PRN 07/08 1200 AC IV Insulin Aspart 0 TIDAC/HS 12/04 2100 AC 07/09 SC 1708 Insulin Detemir 6 UNITS DAILY 07/06 1000 AC 07/09 SC 0844 Iron Sucrose 100 MG PER PROTOCL PRN 07/01 1430 AC 07/03 Sodium Chloride 100 ML IV 1221 Isosorbide 30 MG DAILY 07/09 1056 AC 07/09 Mononitrate PO 1247 Magnesium Oxide 400 MG ONE ONE 07/10 0745 DC PO 07/10 0746 Multivitamins 1 TAB DAILY 07/01 1000 AC 07/09 PO 0844 Oxycodone/ 2 TAB Q6P PRN 07/05 1115 AC 07/10 Acetaminophen PO 0910 Oxycodone/ 1 TAB Q6P PRN 07/05 1115 AC 07/09 Acetaminophen PO 2225 Prednisone 10 MG DAILY 07/05 1000 AC 07/09 PO 0844 Sevelamer Carbonate 800 MG WITH MEALS 06/30 1200 AC 07/09 PO 1707 Sodium Hypochlorite 1 CHAITANYA BID 07/05 1113 AC 07/09 TOP 2153 Tamsulosin HCl 0.4 MG DAILY 07/01 1000 AC 07/09 PO 1104 Vancomycin HCl 1 MG DAILY PRN 07/01 1300 AC 07/04 Dextrose/Water 250 ML IV 1116 Vitamin A/Vitamin D 1 CHAITANYA BID 06/30 2200 AC 07/09 TOP 2152 Zinc Oxide 1 CHAITANYA BID 06/30 2200 AC 07/09 TOP 2152 Results Last 48 Hrs of Labs/Mics: Laboratory Tests 07/10/16 0540: Anion Gap 8, Estimated GFR 21 L, BUN/Creatinine Ratio 13.8, Magnesium 1.5 L, Albumin 2.1 L, Prealbumin 11.9 L, PT 45.5 *H, INR 4.40 *H, CBC w Diff NO MAN DIFF REQ, RBC 2.59 L, MCV 92.6, MCH 29.1, RDW 18.4 H, MPV 9.2, Gran % 74.6, Lymphocytes % 7.9 L, Monocytes % 15.9 H, Eosinophils % 1.1, Basophils % 0.5, Absolute Granulocytes 5.2, Absolute Lymphocytes 0.5 L, Absolute Monocytes 1.1 H, Absolute Eosinophils 0.1, Absolute Basophils 0, PUBS MCHC 31.5 L, Random Vancomycin 8.9 07/09/16 1800: Troponin I Cancelled 07/09/16 1250: Troponin I 0.13 *H 07/09/16 0945: Anion Gap 7, Estimated GFR 27 L, BUN/Creatinine Ratio 12.9, PT 48.4 *H, INR 4.68 *H, CBC w Diff NO MAN DIFF REQ, RBC 2.93 L, MCV 94.4 H, MCH 29.1, RDW 18.6 H, MPV 10.0, Gran % 78.0 H, Lymphocytes % 7.1 L, Monocytes % 13.3 H, Eosinophils % 1.3, Basophils % 0.3, Absolute Granulocytes 6.3, Absolute Lymphocytes 0.6 L, Absolute Monocytes 1.1 H, Absolute Eosinophils 0.1, Absolute Basophils 0, PUBS MCHC 30.9 L 07/09/16 0610: Troponin I 0.14 *H 07/08/16 1300: Anion Gap 8, Estimated GFR 17 L, BUN/Creatinine Ratio 17.5, PTH Intact 547.2 H , PT 46.9 *H, INR 4.53 *H, CBC w Diff NO MAN DIFF REQ, RBC 2.85 L, MCV 95.2 H, MCH 29.3, RDW 19.0 H, MPV 9.9, Gran % 82.4 H, Lymphocytes % 4.7 L, Monocytes % 11.3 H, Eosinophils % 1.5, Basophils % 0.1, Absolute Granulocytes 6.1, Absolute Lymphocytes 0.3 L, Absolute Monocytes 0.8 H, Absolute Eosinophils 0.1 , Absolute Basophils 0, PUBS MCHC 30.7 L, Random Vancomycin 6.8 07/08/16 1200: PTH Intact Cancelled Microbiology 07/09 930 GI: Surveillance Culture - COMP VANC RESIST ENTEROCOCCUS Recent Imaging Studies: Telemetry tracings were personally reviewed and shows sinus rhythm with PACs/ PVCs Assessment/Plan Assessment/Plan 1. Elevated troponin likely due to demand ischemia 2. Atypical/reproducible chest pain 3. Hx of Subglottic edema 4. History of antiphospholipid antibody syndrome maintained on anticoagulation 5. Lower extremity ulcer with peripheral vascular disease 6. End-stage renal disease on dialysis 7. History of hypertension 8. History of upper extremity thrombosis 9. Anemia The patient remains hemodynamically stable with no sustained arrhythmias noted on telemetry. His chest pain is mild and reproducible and not consistent with acute coronary syndrome. His minimal troponin elevation likely represents mild demand ischemia versus a nonspecific elevation in the setting of end-stage renal disease. Can continue on his current cardiac regimen and plan for outpatient nuclear stress test in the future. We will sign off. Please call with any additional questions or concerns prior to discharge. Eligio Childers MD [facility] Continue telemetry? No
--- NOTE | 2016-07-10 11:15 | PN- Infect Dx ---
Subjective Subjective: Afebrile. He complains of midsternal chest pain and left leg pain. Objective Last 24 Hrs of Vital Signs/I&O Vital Signs Date Time Temp Pulse Resp B/P Pulse O2 O2 Flow FiO2 Ox Delivery Rate 07/10 0800 96 Nasal 2.0L Cannula 07/10 0800 98.8 93 18 122/58 96 Nasal 2.0L Cannula 07/10 0000 96 Nasal 2.0L Cannula 07/09 2300 98.3 73 20 100/46 97 Nasal 2.0L Cannula 07/09 2152 91 20 140/70 07/09 1630 99.7 91 20 118/60 96 Nasal 2.0L Cannula 07/09 1600 97 Nasal 2.0L Cannula 07/09 1247 79 120/56 07/09 1104 96 120/56 Intake & Output 07/10 1600 07/10 0800 07/10 0000 Intake Total 0 120 Output Total 0 225 Balance 0 -105 Intake, Oral 0 120 Number 0 0 Bowel Movements Output, Urine 0 225 Physical Exam Other Physical Findings: He is lethargic but arousable on dialysis. He does appear confused though he is oriented to person and place Neck tunneled catheter in the right IJ with no inflammation at the site Chest tender on palpation over the mid chest Lungs are clear Heart regular rhythm with no murmur Extremities left leg dressing intact Results Last 24 Hours of Lab Results: Laboratory Tests 07/10 07/09 07/09 0540 1800 1250 Chemistry Sodium (137 - 145 mmol/L) 138 Potassium (3.5 - 5.1 mmol/L) 4.3 Chloride (98 - 107 mmol/L) 104 Carbon Dioxide (22 - 30 mmol/L) 26 Anion Gap (5 - 16) 8 BUN (9 - 20 mg/dL) 40 H Creatinine (0.7 - 1.2 mg/dL) 2.9 H Estimated GFR (>60 ml/min) 21 L BUN/Creatinine Ratio (7 - 25 %) 13.8 Magnesium (1.6 - 2.3 mg/dL) 1.5 L Troponin I (<0.11 ng/ml) Cancelled 0.13 *H Albumin (3.5 - 5.0 g/dL) 2.1 L Prealbumin (17.6 - 36.0 mg/dL) 11.9 L Coagulation PT (9.4 - 12.5 SEC) 45.5 *H INR (0.90 - 1.17) 4.40 *H Hematology CBC w Diff NO MAN DIFF REQ WBC (4.8 - 10.8 /CUMM) 6.9 RBC (4.70 - 6.10 /CUMM) 2.59 L Hgb (14.0 - 18.0 G/DL) 7.5 L Hct (42 - 52 %) 24.0 L MCV (80.0 - 94.0 FL) 92.6 MCH (27.0 - 31.0 PG) 29.1 RDW (11.5 - 14.5 %) 18.4 H Plt Count (130 - 400 /CUMM) 132 MPV (7.4 - 10.4 FL) 9.2 Gran % (42.2 - 75.2 %) 74.6 Lymphocytes % (20.5 - 51.1 %) 7.9 L Monocytes % (1.7 - 9.3 %) 15.9 H Eosinophils % (0 - 5 %) 1.1 Basophils % (0.0 - 2.0 %) 0.5 Absolute Granulocytes (1.4 - 6.5 /CUMM) 5.2 Absolute Lymphocytes (1.2 - 3.4 /CUMM) 0.5 L Absolute Monocytes (0.10 - 0.60 /CUMM) 1.1 H Absolute Eosinophils (0.0 - 0.7 /CUMM) 0.1 Absolute Basophils (0.0 - 0.2 /CUMM) 0 PUBS MCHC (33.0 - 37.0 G/DL) 31.5 L Toxicology Random Vancomycin (ug/ml) 8.9 Last 24 Hours of [place] Results: No recent cultures Assessment/Plan Impression: Persistent pain in the left leg is suggestive of ischemia, though a recent outpatient angiogram was apparently negative. Have discussed with Vascular surgery, who feels that his pain is related to his wound and is concerned that the steroids he is on may be impeding his ability to heal. He is now 10 days status post excisional debridement and remains afebrile with white blood cell count normal on Vancomycin for coag-negative Staph and diphtheroids isolated from the OR cultures. His confusion and disorientation is most likely medication related. His chest pain may be musculoskeletal, and the elevated troponin is not felt by Cardiology to be significant. Suggestion: 1. Would discuss with GI and Endocrine if his steroids can be further decreased or discontinued 2. Continue Vancomycin after each dialysis per protocol
[2016-07-10 16:00] VITALS: BP 138/78
[2016-07-11] VITALS: BP 110/50
[2016-07-11 05:02] LABS: ABSOLUTE BASOPHIL COUNT 0 /CUMM (0.0-0.2); ABSOLUTE EOSINOPHIL COUNT 0 /CUMM (0.0-0.7); ABSOLUTE LYMPH COUNT 0.4 /CUMM (1.2-3.4); ABSOLUTE MONOCYTE COUNT 0.9 /CUMM (0.10-0.60); BASOPHIL % 0.1 % (0.0-2.0); EOSINOPHIL % 0.5 % (0-5); GRANULOCYTE % 78.5 % (42.2-75.2); HEMATOCRIT 23.9 % (42-52); MEAN CORPUSCULAR HGB 29.2 PG (27.0-31.0); MEAN CORPUSCULAR HGB CONC 31.4 G/DL (33.0-37.0); MEAN CORPUSCULAR VOLUME 93.1 FL (80.0-94.0); MEAN PLATELET VOLUME 9.7 FL (7.4-10.4); PLATELET COUNT 138 /CUMM (130-400); RBC DISTRIBUTION WIDTH 18.5 % (11.5-14.5); RED BLOOD CELL CT 2.56 /CUMM (4.70-6.10); WHITE BLOOD CELL COUNT 6.4 /CUMM (4.8-10.8)
--- NOTE | 2016-07-11 07:16 | PN- Housestaff ---
Assessment/Plan Assessment: 75 y/o M with PMHx of antiphospholipid antibody syndrome, diabetes and CKD who presented with SOB, hoarseness and stridor, found to be uremic with initiation of HD, s/p debridement of chronic left leg ulcer, on IV vancomycin for soft tissue infection, currently awaiting outpatient dialysis slot. NSTEMI, likely demand ischemia yesterday morning patient complained of midsternal chest pain, nonradiating, EKG was negative for any acute changes. Troponins elevated at 0.14. patient was transferred to telemetry floor for continuous cardiac monitoring, cardiology on board repeat troponin trended down. Currently pain free and patient can be transferred back to . Chronic left lower extremity ulcer: Has chronic nonhealing ulcers of left leg for which he sees Dr. Pretty as outpatient. S/p excisional debridement through the subcutaneous and muscular tissue with reported seropurulent drainage (06/30) and OR cultures growing diphthteroids and coag-negative Staph. Although these are not typically pathogenic organisms, currently on IV vancomycin for possible soft tissue infection.Wound appears improved, however patient complains of severe pain concerning for ischemia. * ID following * Continue vancomycin per dialysis protocol * Vascular surgery consulted again. Appreciate further evaluation regarding the vascular supply of left leg. * Check vancomycin level ont he morning of dialysis day and dose vancomycin accordingly. Antiphospholipid antibody syndrome: chronic right upper extremity DVT. On life- long anti-coagulation with warfarin, takes 5 mg PO QD. * Continue to check INR daily and dose warfarin accordingly to keep INR between 2-3. * INR supratherapeutic , warfarin on hold, please will follow INR levels and dose coumadin accordingly. ESRD: Cr was 5 on admission, with gradual increase from 2-3 within the past year. Most likely etiology is progressive diabetic nephropathy. Mj cath was placed and urgent hemodialysis was initiated (06/26) with improvement of mental status. Patient is currently awaiting outpatient dialysis slot. * Nephrology following * Continue HD MW * No PICC lines should be inserted per Nephrology, as patient will need vein site for placement of graft. * Continue sevelamer 800 mg PO TIDAC. * Continue daily Nephrocaps T2DM: Uncontrolled blood sugars this admission, secondary to steroids. * Endocrinology following * Stopped Levemir 6U SQ BID * Continue NovoLog SSI TIDAC as suggested HTN: Takes amlodipine 10 mg PO QD, carvedilol 25 mg PO BID, furosemide 80 mg PO BID and hydralazine 50 mg PO BID at home. * Holding home amlodipine, furosemide and hydralazine. * Continue home carvedilol. Crohn's disease: Patient has been taking prednisone 10 mg PO QD for many years to prevent flares. * Have continued home prednisone. * Will talk to GI and Endocrine tomorrow to see if we can decrease prednisone and help with the healing of the ulcer. Diet: Renal Dialysis Diet (regular and nectar thick liquids) DVT PPx: Warfarin and ALPs CODE: FULL
--- NOTE | 2016-07-11 07:33 | PN- Diabetes ---
Assessment/Plan Assessment: Patient has been having chest pain. He has mild elevation of his troponin. He was moved to the intensive care unit. He continues on dialysis. He has been seen by cardiology who has recommended conservative management at this time. Levemir was decreased to 6 units daily. He is on sliding scale NovoLog before meals. Fingerstick blood sugars yesterday were 81 before breakfast, 117 before lunch, and 207 before dinner. Patient remains on prednisone 10 mg once a day in the a.m. Plan: Suggest reduce Levemir to 4 units once a day in the morning. Continue sliding- scale NovoLog as written. There is some concern that the prednisone is interfering with the healing of his wound. Since prednisone is given for his Crohn's disease we should contact his GI doctor to see if it can be reduced to 5 mg once a day. The patient states his GI doctor is Dr. Moreira. Subjective Subjective: Lanes of pain left leg Review of Systems Constitutional: Denies: chills, fever. Cardiovascular: Denies: chest pain. Respiratory: Denies: cough, short of breath. Gastrointestinal: Denies: abdominal pain. Skin: Reports: lesions (left lower leg). Objective Last 24 Hrs of Vital Signs/I&O Vital Signs Date Time Temp Pulse Resp B/P Pulse O2 O2 Flow FiO2 Ox Delivery Rate 07/11 0000 96 Nasal 2.0L Cannula 07/11 0000 99.4 82 20 110/50 96 Nasal 2.0L Cannula 07/10 2125 92 122/58 07/10 1600 94 Nasal 2.0L Cannula 07/10 1600 98.9 106 18 138/78 94 Nasal 2.0L Cannula 07/10 08 96 Nasal 2.0L Cannula 07/10 0800 98.8 93 18 122/58 96 Nasal 2.0L Cannula Intake & Output 07/11 0800 07/11 0000 07/10 1600 Intake Total 200 100 580 Output Total 100 Balance 200 0 580 Intake, IV 20 280 Intake, Oral 200 80 300 Number 1 1 Bowel Movements Output, Urine 100 Vital Signs Date Time Temp Pulse Resp B/P Pulse O2 O2 Flow FiO2 Ox Delivery Rate 07/11 0000 96 Nasal 2.0L Cannula 07/11 0000 99.4 82 20 110/50 96 Nasal 2.0L Cannula 07/10 2125 92 122/58 07/10 1600 94 Nasal 2.0L Cannula 07/10 1600 98.9 106 18 138/78 94 Nasal 2.0L Cannula 07/10 0800 96 Nasal 2.0L Cannula 07/10 0800 98.8 93 18 122/58 96 Nasal 2.0L Cannula Intake & Output 07/11 0800 07/11 0000 07/10 1600 Intake Total 200 100 580 Output Total 100 Balance 200 0 580 Intake, IV 20 280 Intake, Oral 200 80 300 Number 1 1 Bowel Movements Output, Urine 100 Physical Exam General Appearance: alert, awake Neck: normal inspection Respiratory: normal breath sounds Cardiovascular: regular rate/rhythm Abdomen: normal bowel sounds, soft Extremities: left lower leg bandaged Current Medications: Current Medications Sig/Kailash Start time Last Medication Dose Route Stop Time Status Admin Acetaminophen 500 MG Q6P PRN 07/02 0815 AC 07/08 PO 1102 Aspirin 81 MG DAILY 07/01 1000 AC 07/10 PO 1334 Atorvastatin Calcium 40 MG 1700 06/30 1700 AC 07/10 PO 1618 Carvedilol 25 MG BID 06/30 2200 AC 07/10 PO 2125 Diphenoxylate HCl/ 2.5 MG TID PRN 07/08 0100 AC 07/08 Atropine PO 0836 Epoetin Ludwig 3,000 UNIT MoWeFr PRN 07/08 1200 AC IV Epoetin Ludwig 2,000 UNIT MoWeFr PRN 07/08 1200 AC IV Insulin Aspart 0 TIDAC/HS 06/30 2100 AC 07/10 SC 1704 Insulin Detemir 6 UNITS DAILY 07/06 1000 DC 07/10 SC 1333 Iron Sucrose 100 MG PER PROTOCL PRN 07/01 1430 AC 07/03 Sodium Chloride 100 ML IV 1221 Isosorbide 30 MG DAILY 07/09 1056 AC 07/10 Mononitrate PO 1335 Magnesium Oxide 400 MG ONE ONE 07/10 0745 DC 07/10 PO 07/10 0746 1340 Multivitamins 1 TAB DAILY 07/01 1000 AC 07/10 PO 1335 Oxycodone/ 2 TAB Q6P PRN 07/05 1115 AC 07/11 Acetaminophen PO 0550 Oxycodone/ 1 TAB Q6P PRN 07/05 1115 AC 07/09 Acetaminophen PO 2225 Prednisone 10 MG DAILY 07/05 1000 AC 07/10 PO 1336 Sevelamer Carbonate 800 MG WITH MEALS 06/30 1200 AC 07/10 PO 1618 Sodium Hypochlorite 1 CHAITANYA BID 07/05 1113 AC 07/10 TOP 1334 Tamsulosin HCl 0.4 MG DAILY 07/01 1000 AC 07/10 PO 1335 Vancomycin HCl 1,000 MG ONCE ONE 07/10 1300 DC 07/10 Sodium Chloride 250 ML IV 07/10 1359 1336 Vancomycin HCl 1 MG DAILY PRN 07/01 1300 AC 07/04 Dextrose/Water 250 ML IV 1116 Vitamin A/Vitamin D 1 CHAITANYA BID 06/30 2200 AC 07/10 TOP 2127 Zinc Oxide 1 CHAITANYA BID 06/30 2200 AC 07/10 TOP 2152 Findings Pertinent Lab/[facility] Results: Laboratory Tests 07/11 07/10 0350 UNK Chemistry Sodium (137 - 145 mmol/L) 140 Potassium (3.5 - 5.1 mmol/L) 4.0 Chloride (98 - 107 mmol/L) 103 Carbon Dioxide (22 - 30 mmol/L) 29 Anion Gap (5 - 16) 7 BUN (9 - 20 mg/dL) 20 10 Creatinine (0.7 - 1.2 mg/dL) 2.2 H Estimated GFR (>60 ml/min) 29 L BUN/Creatinine Ratio (7 - 25 %) 9.1 Magnesium (1.6 - 2.3 mg/dL) 1.7 Coagulation PT (9.4 - 12.5 SEC) 46.0 *H INR (0.90 - 1.17) 4.45 *H Hematology CBC w Diff NO MAN DIFF REQ WBC (4.8 - 10.8 /CUMM) 6.4 RBC (4.70 - 6.10 /CUMM) 2.56 L Hgb (14.0 - 18.0 G/DL) 7.5 L Hct (42 - 52 %) 23.9 L MCV (80.0 - 94.0 FL) 93.1 MCH (27.0 - 31.0 PG) 29.2 RDW (11.5 - 14.5 %) 18.5 H Plt Count (130 - 400 /CUMM) 138 MPV (7.4 - 10.4 FL) 9.7 Gran % (42.2 - 75.2 %) 78.5 H Lymphocytes % (20.5 - 51.1 %) 6.4 L Monocytes % (1.7 - 9.3 %) 14.5 H Eosinophils % (0 - 5 %) 0.5 Basophils % (0.0 - 2.0 %) 0.1 Absolute Granulocytes (1.4 - 6.5 /CUMM) 5.0 Absolute Lymphocytes (1.2 - 3.4 /CUMM) 0.4 L Absolute Monocytes (0.10 - 0.60 /CUMM) 0.9 H Absolute Eosinophils (0.0 - 0.7 /CUMM) 0 Absolute Basophils (0.0 - 0.2 /CUMM) 0 PUBS MCHC (33.0 - 37.0 G/DL) 31.4 L
[2016-07-11 08:00] VITALS: BP 100/50
--- NOTE | 2016-07-11 10:00 | NUR ---
NSG NOTE: DURING DSG CHANGE, THIS RN NOTED PATIENTS DSG TO BE DRESSED WITH XEROFORM, TELFA AND GAUZE WRAP; THIS RN CLEANSED WOUND W/ DATKINS SOLUTION AND RE-DRESSED USING THE SAME MATERIALS; DSG C/D/I AT THIS TIME
--- NOTE | 2016-07-11 10:04 | PN- Housestaff ---
ESTELA HEATH,[facility] 07/11/16 1003: Subjective Follow-up For: Chest pain Chronic nonhealing ulcer of left calf ESRD T2DM Subjective: Patient seen and examined this Am. He was transferred back to [facility] floor today. He still has reproducible chest pain, trops and ekg has been fine. Vitals WNL. Review of Systems Constitutional: Denies: chills, fever. Cardiovascular: Reports: see HPI, chest pain. Denies: edema, palpitations. Respiratory: Denies: cough, short of breath. Gastrointestinal: Denies: abdominal pain, constipation, diarrhea, nausea, vomiting. Genitourinary: Denies: dysuria, frequency. Objective Last 24 Hrs of Vital Signs/I&O Vital Signs Date Time Temp Pulse Resp B/P Pulse O2 O2 Flow FiO2 Ox Delivery Rate 07/11 0853 78 100/50 07/11 0853 78 100/50 07/11 0852 78 100/50 07/11 0800 94 Nasal 2.0L Cannula 07/11 0800 98.4 78 18 100/50 94 Nasal 2.0L Cannula 07/11 0000 96 Nasal 2.0L Cannula 07/11 0000 99.4 82 20 110/50 96 Nasal 2.0L Cannula 07/10 2125 92 122/58 07/10 1600 94 Nasal 2.0L Cannula 07/10 1600 98.9 106 18 138/78 94 Nasal 2.0L Cannula Intake & Output 07/11 1600 07/11 0800 12 0000 Intake Total 200 100 Output Total 100 Balance 200 0 Intake, IV 20 Intake, Oral 200 80 Number 1 Bowel Movements Output, Urine 100 Physical Exam General Appearance: Alert, Oriented X3, Cooperative Cardiovascular: Regular Rate, Normal S1, Normal S2, No Murmurs Lungs: Clear to Auscultation, Normal Air Movement Abdomen: Normal Bowel Sounds, Soft, No Tenderness Extremities: No Clubbing, No Cyanosis, rt lower ext wrapped Current Medications: Current Medications Sig/Kailash Start time Last Medication Dose Route Stop Time Status Admin Acetaminophen 500 MG Q6P PRN 07/02 0815 AC 07/08 PO 1102 Aspirin 81 MG DAILY 07/01 1000 AC 07/11 PO 0854 Atorvastatin Calcium 40 MG 1700 06/30 1700 AC 07/10 PO 1618 Carvedilol 25 MG BID 06/30 2200 AC 07/11 PO 0853 Diphenoxylate HCl/ 2.5 MG TID PRN 07/08 0100 AC 07/08 Atropine PO 0836 Epoetin Ludwig 3,000 UNIT MoWeFr PRN 07/08 1200 AC IV Epoetin Ludwig 2,000 UNIT MoWeFr PRN 07/08 1200 AC IV Insulin Aspart 0 TIDAC/HS 06/30 2100 AC 07/11 SC 0830 Insulin Detemir 4 UNITS DAILY 07/11 1000 AC 07/11 SC 1020 Insulin Detemir 6 UNITS DAILY 07/06 1000 DC 07/10 SC 1333 Iron Sucrose 100 MG PER PROTOCL PRN 07/01 1430 AC 07/03 Sodium Chloride 100 ML IV 1221 Isosorbide 30 MG DAILY 07/09 1056 AC 07/11 Mononitrate PO 0852 Magnesium Oxide 400 MG ONE ONE 07/11 0745 DC 07/11 PO 07/11 0746 0855 Multivitamins 1 TAB DAILY 07/01 1000 AC 07/11 PO 0852 Oxycodone/ 2 TAB Q6P PRN 07/05 1115 AC 07/11 Acetaminophen PO 0550 Oxycodone/ 1 TAB Q6P PRN 07/05 1115 AC 07/09 Acetaminophen PO 2225 Prednisone 5 MG DAILY 07/12 1000 UNVr PO Prednisone 10 MG DAILY 07/05 1000 DC 07/11 PO 0856 Sevelamer Carbonate 800 MG WITH MEALS 06/30 1200 AC 07/11 PO 0850 Sodium Hypochlorite 1 CHAITANYA BID 07/05 1113 AC 07/11 TOP 1021 Tamsulosin HCl 0.4 MG DAILY 07/01 1000 AC 07/11 PO 0853 Vancomycin HCl 1,000 MG ONCE ONE 07/10 1300 DC 07/10 Sodium Chloride 250 ML IV 07/10 1359 1336 Vancomycin HCl 1 MG DAILY PRN 07/01 1300 AC 07/04 Dextrose/Water 250 ML IV 1116 Vitamin A/Vitamin D 1 CHAITANYA BID 06/30 2200 AC 07/11 TOP 1020 Zinc Oxide 1 CHAITANYA BID 06/30 2200 AC 07/11 TOP 1020 Last 24 Hrs of Lab/Avtar Results Last 24 Hrs of Labs/Mics: Laboratory Tests 07/11/16 0350: Anion Gap 7, Estimated GFR 29 L, BUN/Creatinine Ratio 9.1, Magnesium 1.7, PT 46.0 *H, INR 4.45 *H, CBC w Diff NO MAN DIFF REQ, RBC 2.56 L, MCV 93.1, MCH 29.2, RDW 18.5 H, MPV 9.7, Gran % 78.5 H, Lymphocytes % 6.4 L, Monocytes % 14.5 H, Eosinophils % 0.5, Basophils % 0.1, Absolute Granulocytes 5.0, Absolute Lymphocytes 0.4 L, Absolute Monocytes 0.9 H, Absolute Eosinophils 0, Absolute Basophils 0, PUBS MCHC 31.4 L Assessment/Plan Assessment: 75 y/o M with PMHx of antiphospholipid antibody syndrome, diabetes and CKD who presented with SOB, hoarseness and stridor, found to be uremic with initiation of HD, s/p debridement of chronic left leg ulcer, on IV vancomycin for soft tissue infection, currently awaiting outpatient dialysis slot. Chest Pain: On 07/09 patient had chest pain, ekg-no acute changes. Troponins elevated at 0.14. patient was transferred to telemetry floor for continuous cardiac monitoring, cardiology on board repeat troponin trended down.Patient transferred back to today. Chronic left lower extremity ulcer: Has chronic nonhealing ulcers of left leg for which he sees Dr. Pretty as outpatient. S/p excisional debridement through the subcutaneous and muscular tissue with reported seropurulent drainage (06/30) and OR cultures growing diphthteroids and coag-negative Staph. Although these are not typically pathogenic organisms, currently on IV vancomycin for possible soft tissue infection.Wound appears improved, however patient complains of severe pain concerning for ischemia. * ID following * Continue vancomycin per dialysis protocol * Vascular surgery consulted again. Appreciate further evaluation regarding the vascular supply of left leg. * Check vancomycin level on the morning of dialysis day and dose vancomycin accordingly. Antiphospholipid antibody syndrome: chronic right upper extremity DVT. On life- long anti-coagulation with warfarin, takes 5 mg PO QD. * Continue to check INR daily and dose warfarin accordingly to keep INR between 2-3. * INR supratherapeutic , warfarin on hold, please will follow INR levels and dose coumadin accordingly. ESRD: Cr was 5 on admission, with gradual increase from 2-3 within the past year. Most likely etiology is progressive diabetic nephropathy. Mj cath was placed and urgent hemodialysis was initiated (06/26) with improvement of mental status. Patient is currently awaiting outpatient dialysis slot. * Nephrology following * Continue HD MW * No PICC lines should be inserted per Nephrology, as patient will need vein site for placement of graft. * Continue sevelamer 800 mg PO TIDAC. * Continue daily Nephrocaps T2DM: Uncontrolled blood sugars this admission, secondary to steroids. * Endocrinology following * Levemir 4U SQ DAILY * Continue NovoLog SSI TIDAC as suggested HTN: Takes amlodipine 10 mg PO QD, carvedilol 25 mg PO BID, furosemide 80 mg PO BID and hydralazine 50 mg PO BID at home. * Holding home amlodipine, furosemide and hydralazine. * Continue home carvedilol. Crohn's disease: Patient has been taking prednisone 10 mg PO QD for many years to prevent flares. * Have continued home prednisone. * GI and Endocrine ok with decreasing prednisone and help with the healing of the ulcer. Diet: Renal Dialysis Diet (regular and nectar thick liquids) DVT PPx: Warfarin and ALPs CODE: FULL Problem List: 1. Chest pain 2. Crohns disease 3. Peripheral vascular disease 4. Type 2 diabetes mellitus 5. End stage renal disease 6. Cellulitis Pain Ratin Pain Location: left lower ext Pain Goal: Remain pain free Pain Plan: see a/p Tomorrow's Labs & Rationales: INR cbc for h&H monitoring bep for lytes monitoring ARTURO HEATH,[facility] 07/11/16 1145: Attending MD Review Statement Attending Statement Attending MD Statement: examined this patient, discuss w/resident/PA/GROVE SUPERINTENDENT, agreed w/resident/PA/GROVE SUPERINTENDENT, reviewed EMR data (avail), discussed with nursing, amended to note Attending Assessment/Plan: Patient seen and examined. Resting comfortably not in acute distress. Transferred out of the ICU (telemetry hold) this morning. Denies any chest pain. Denies shortness of breath or palpitations. Denies abdominal discomfort. Admits to chronic low janene he remains afebrile and hemodynamically stable. On examination lungs are clear bilaterally. Abdomen soft and nontender. He has no pedal edema. Intact dressing over left lower extremity. Recommendations: -Patient reports that he has been taking prednisone for over 50 years for his Crohn's disease. He reports exacerbation of his disease in the past when weaned off prednisone. Case was discussed with his gastroenterology service. Sen Blanco MD recommends decreasing prednisone to 5 mg once a day. -Blood glucose level was on the lower side yesterday morning with blood sugar 81. His Levemir dose has been decreased as recommended by the endocrinology service. -Continue hemodialysis Friday. He is still awaiting an outpatient slot. -Continue vancomycin after each dialysis.
[2016-07-11 15:00] VITALS: BP 118/50
--- NOTE | 2016-07-11 15:15 | NUR ---
NSG NOTE: APPROXIMATELY 1505, THIS RN NOTED PATIENT TO BE SLEEPING AND HAD SOME DIFFICULTY ARROUSING PATIENT; THIS RN AWOKE PATIENT, PATIENT NOTED TO HAVE SLIGHT CHANGE IN MENTAL STATUS FROM EARLIER THIS AM; PATIENT NOT ANSWERING QUESTIONS APPROPRIATELY; SLIGHT LT SIDED FACIAL DROOP NOTED BY THIS RN, NAN SANDOVAL RN AND PAMELA RN; VITAL SIGNS OBTAINED (118/50, RR 18, 99% 2LNC, HR 84 AND BLOOD SUGAR 178); RAPID RESPONSE CALLED; MD'S AT HE BEDSIDE PER RR PROTOCOL; EKG PERFORMED; LABS DRAWN; STROKE ALERT CALLED BY MD; ORDER FOR CT SCAN PLACED; PATIENT TRANSPORTED TO CT SCAN WITH PAMELA RN; (SEE RR SHEET);
--- NOTE | 2016-07-11 15:43 | Event Note ---
Event Note Event Note: Around 3:10 PM, rapid response was called when Mr. Marvin was found to be slightly more confused and altered compared to his baseline. On examination, he was found to be somnolent, but oriented to time place and person. Neurological examination was limited, however he was found to be weak on the left side of the body. Strength 4/5 in left upper extremity. Cranial nerves could not be tested. Vitals-temperature 90.8, pulse rate 98, blood pressure 118/50, 99% on room air. Blood sugar 178. Since there was an acute change in mental status, it was deemed appropriate to get a CAT scan stat, with stat blood work including BEP, magnesium, troponin, CBC and an EKG. The resident discussed with the neurologist, gas substation operator Dr. Negrete. Dr. Lucero was present at the time of the event. Informed the family. CT did not showed an intracranial pathology. Dr. Negrete was contacted and updated regarding the CT results. His H&H was low, 6.8, patient to be transfused 1 unit of packed red blood cells. Crossmatch and consent form signed.
--- NOTE | 2016-07-11 15:56 | CT SCAN REPORT ---
EXAMINATION: CT HEAD WITHOUT CONTRAST CLINICAL INFORMATION: Acute onset altered mental status. COMPARISON: Noncontrast head CT 05/25/2016. TECHNIQUE: Contiguous axial imaging was performed from the skull base to vertex without intravenous administration of contrast. DLP: 743 mGy-cm. FINDINGS: Noncontrast CT imaging of the brain demonstrates age-appropriate generalized parenchymal volume loss with proportional prominence of the sulci and ventricles. There is no acute intracranial hemorrhage, mass or mass effect or abnormal extra-axial fluid collections. There are no focal areas of hypoattenuation in a vascular distribution to suggest acute transcortical ischemia. There is a chronic lacunar infarct within the right lentiform nucleus. Areas of hypoattenuation within the periventricular and deep cortical white matter are nonspecific but could reflect sequela of mild chronic microvascular ischemia. No acute calvarial abnormality. Minimal mucosal thickening of the left maxillary sinus. The mastoid air cells and remaining visualized portions of the paranasal sinuses are well-aerated. IMPRESSION: 1. No acute intracranial abnormality. 2. Generalized parenchymal volume loss and sequela of mild chronic microvascular ischemia.
[2016-07-11 16:15] LABS: ABSOLUTE BASOPHIL COUNT 0 /CUMM (0.0-0.2); ABSOLUTE EOSINOPHIL COUNT 0 /CUMM (0.0-0.7); ABSOLUTE GRANULOCYTE CT 5.7 /CUMM (1.4-6.5); ABSOLUTE LYMPH COUNT 0.3 /CUMM (1.2-3.4); ABSOLUTE MONOCYTE COUNT 0.6 /CUMM (0.10-0.60); BASOPHIL % 0.1 % (0.0-2.0); EOSINOPHIL % 0.5 % (0-5); HEMATOCRIT 21.7 % (42-52); MEAN CORPUSCULAR HGB 29.1 PG (27.0-31.0); MEAN CORPUSCULAR HGB CONC 31.4 G/DL (33.0-37.0); MEAN CORPUSCULAR VOLUME 92.9 FL (80.0-94.0); MEAN PLATELET VOLUME 9.3 FL (7.4-10.4); PLATELET COUNT 129 /CUMM (130-400); RBC DISTRIBUTION WIDTH 18.7 % (11.5-14.5); RED BLOOD CELL CT 2.34 /CUMM (4.70-6.10); WHITE BLOOD CELL COUNT 6.6 /CUMM (4.8-10.8)
[2016-07-11 16:23] LABS: GRANULOCYTE % 85.7 % (42.2-75.2)
--- NOTE | 2016-07-11 17:30 | NUR ---
NSG NOTE: PATIENT NOTED TO BE IN STABLE CONDITION AT THIS TIME; A/O,PATIENT EATING DINNER AT THE BEDSIDE WITH HIS ; WILL CONT TO MONITOR
[2016-07-11 22:10] VITALS: BP 120/60
[2016-07-12 07:29] VITALS: BP 130/78
--- NOTE | 2016-07-12 07:36 | NUR ---
NURSING NOTE: DURING BEDSIDE REPORT, O2 NOT IN PLACE; PER PT "I DONT WANT IT ON" O2 SAT ON ROOM AIR 92%. CONT TO MONITOR. PT AWAKE, A/OX3. AWAITING TRANSPORT FOR DIALYSIS.
--- NOTE | 2016-07-12 07:45 | NUR ---
NURSING NOTE: PT LEFT FLOOR VIA BED WITH DISTRIBUTION FOR DIALYSIS. WEIGHT OBTAINED THIS AM. PT AWAKE, A/OX3, ROOM AIR 92%. PT DENIES PAIN, TICKET TO RIDE COMPLETE, AWAIT RETURN TO FLOOR
--- NOTE | 2016-07-12 08:09 | PN- Diabetes ---
Assessment/Plan Assessment: The patient is out of the intensive care unit. His chest pain has subsided. He is on dialysis. Levemir was decreased to 4 units daily. His prednisone has been decreased to 5 mg once a day in the morning. He is on sliding scale NovoLog before meals starting with 3 units for 80-150. His hematocrit has fallen to 21.0. Fingerstick blood sugars yesterday were 98 before breakfast, 173 before lunch, 174 before dinner, and 228 at bedtime. This morning his fingerstick blood sugar is 203. Plan: Suggest continue the present insulin for now. We will see how his sugars look on 5 mg of prednisone once a day. Transfusion needs to be considered in view of his low hematocrit. Subjective Subjective: Complains of pain and leg Review of Systems Constitutional: Denies: chills, fever. Cardiovascular: Denies: chest pain. Respiratory: Denies: short of breath. Gastrointestinal: Denies: abdominal pain. Skin: Reports: lesions (lrft lower leg), rash. Objective Last 24 Hrs of Vital Signs/I&O Vital Signs Date Time Temp Pulse Resp B/P Pulse O2 O2 Flow FiO2 Ox Delivery Rate 07/12 745 92 Room Air 07/12 0735 20 92 Room Air 07/12 0729 98.1 96 18 130/78 92 Nasal 3.0L Cannula 07/12 0000 Nasal 2.0L Cannula 07/11 2220 91 120/60 07/11 2210 98.4 91 18 120/60 93 Nasal 2.0L Cannula 07/11 1600 99 Nasal 2.0L Cannula 07/11 1500 84 18 118/50 99 Nasal 2.0L Cannula 07/11 0853 78 100/50 07/11 0853 78 100/50 07/11 0852 78 100/50 Intake & Output 07/12 1600 07/12 0800 07/12 0000 Intake Total 710 480 Output Total 225 Balance 710 255 Intake, Blood 350 Product Intake, Oral 360 480 Number 1 1 Bowel Movements Output, Urine 225 Patient 157 lb Weight Vital Signs Date Time Temp Pulse Resp B/P Pulse O2 O2 Flow FiO2 Ox Delivery Rate 07/12 0745 92 Room Air 07/12 0735 20 92 Room Air 07/12 0729 98.1 96 18 130/78 92 Nasal 3.0L Cannula 07/12 0000 Nasal 2.0L Cannula 07/11 2220 91 120/60 07/11 2210 98.4 91 18 120/60 93 Nasal 2.0L Cannula 07/11 1600 99 Nasal 2.0L Cannula 07/11 1500 84 18 118/50 99 Nasal 2.0L Cannula 07/11 0853 78 100/50 07/11 0853 78 100/50 07/11 0852 78 100/50 Intake & Output 07/12 1600 07/12 0800 07/12 0000 Intake Total 710 480 Output Total 225 Balance 710 255 Intake, Blood 350 Product Intake, Oral 360 480 Number 1 1 Bowel Movements Output, Urine 225 Patient 157 lb Weight Physical Exam General Appearance: well developed/nourished, alert, awake, anxious Head: normal appearance Neck: normal inspection Respiratory: normal breath sounds Cardiovascular: regular rate/rhythm Extremities: left lower leg bandaged Current Medications: Current Medications Sig/Kailash Start time Last Medication Dose Route Stop Time Status Admin Acetaminophen 500 MG Q6P PRN 07/02 0815 AC 07/08 PO 1102 Aspirin 81 MG DAILY 07/01 1000 AC 07/11 PO 0854 Atorvastatin Calcium 40 MG 1700 06/30 1700 AC 07/11 PO 1711 Carvedilol 25 MG BID 06/30 2200 AC 07/11 PO 2220 Diphenoxylate HCl/ 2.5 MG TID PRN 07/08 0100 AC 07/08 Atropine PO 0836 Epoetin Ludwig 3,000 UNIT MoWeFr PRN 07/08 1200 AC IV Epoetin Ludwig 2,000 UNIT MoWeFr PRN 07/08 1200 AC IV Insulin Aspart 0 TIDAC/HS 06/30 2100 AC 07/11 SC 1720 Insulin Detemir 4 UNITS DAILY 07/11 1000 AC 07/11 SC 1020 Iron Sucrose 100 MG PER PROTOCL PRN 07/01 1430 AC 07/03 Sodium Chloride 100 ML IV 1221 Isosorbide 30 MG DAILY 07/09 1056 AC 07/11 Mononitrate PO 0852 Multivitamins 1 TAB DAILY 07/01 1000 AC 07/11 PO 0852 Oxycodone/ 2 TAB Q6P PRN 07/11 2230 AC 07/11 Acetaminophen PO 2321 Oxycodone/ 2 TAB Q6P PRN 07/05 1115 DC 07/11 Acetaminophen PO 0550 Oxycodone/ 1 TAB Q6P PRN 07/05 1115 DC 07/09 Acetaminophen PO 2225 Prednisone 5 MG DAILY 07/12 1000 AC PO Prednisone 10 MG DAILY 07/05 1000 DC 07/11 PO 0856 Sevelamer Carbonate 800 MG WITH MEALS 06/30 1200 AC 07/11 PO 1711 Sodium Chloride 2 SPRAY Q10MIN PRN 07/12 0230 AC CARLITOS Sodium Hypochlorite 1 CHAITANYA BID 07/05 1113 AC 07/11 TOP 1021 Tamsulosin HCl 0.4 MG DAILY 07/01 1000 AC 07/11 PO 0853 Vancomycin HCl 1 MG DAILY PRN 07/01 1300 AC 07/04 Dextrose/Water 250 ML IV 1116 Vitamin A/Vitamin D 1 CHAITANYA BID 06/30 2200 AC 07/11 TOP 2220 Zinc Oxide 1 CHAITANYA BID 06/30 2200 AC 07/11 TOP 2221 Findings Pertinent Lab/Avtar Results: Laboratory Tests 07/12 07/11 0216 1525 Chemistry Sodium (137 - 145 mmol/L) 138 Potassium (3.5 - 5.1 mmol/L) 4.1 Chloride (98 - 107 mmol/L) 103 Carbon Dioxide (22 - 30 mmol/L) 28 Anion Gap (5 - 16) 6 BUN (9 - 20 mg/dL) 25 H Creatinine (0.7 - 1.2 mg/dL) 2.6 H Estimated GFR (>60 ml/min) 24 L BUN/Creatinine Ratio (7 - 25 %) 9.6 Troponin I (<0.11 ng/ml) 0.11 *H Hematology CBC w Diff NO MAN DIFF REQ WBC (4.8 - 10.8 /CUMM) 6.6 RBC (4.70 - 6.10 /CUMM) 2.34 L Hgb (14.0 - 18.0 G/DL) 6.8 *L Hct (42 - 52 %) 21.7 L MCV (80.0 - 94.0 FL) 92.9 MCH (27.0 - 31.0 PG) 29.1 RDW (11.5 - 14.5 %) 18.7 H Plt Count (130 - 400 /CUMM) 129 L MPV (7.4 - 10.4 FL) 9.3 Gran % (42.2 - 75.2 %) 85.7 H Lymphocytes % (20.5 - 51.1 %) 4.0 L Monocytes % (1.7 - 9.3 %) 9.7 H Eosinophils % (0 - 5 %) 0.5 Basophils % (0.0 - 2.0 %) 0.1 Absolute Granulocytes (1.4 - 6.5 /CUMM) 5.7 Absolute Lymphocytes (1.2 - 3.4 /CUMM) 0.3 L Absolute Monocytes (0.10 - 0.60 /CUMM) 0.6 Absolute Eosinophils (0.0 - 0.7 /CUMM) 0 Absolute Basophils (0.0 - 0.2 /CUMM) 0 PUBS MCHC (33.0 - 37.0 G/DL) 31.4 L Toxicology Vancomycin Trough (10.0 - 20.0 ug/mL) 12.3
--- NOTE | 2016-07-12 08:39 | PN- Housestaff ---
ESTELA HEATH,[facility] 07/12/16 0839: Subjective Follow-up For: Chest pain Chronic nonhealing ulcer of left calf ESRD T2DM Subjective: Patient seen and examined this Am. no complaints, patient received dialysis, no complaints. Vitals WNL. Review of Systems Constitutional: Reports: see HPI. Objective Last 24 Hrs of Vital Signs/I&O Vital Signs Date Time Temp Pulse Resp B/P Pulse O2 O2 Flow FiO2 Ox Delivery Rate 07/12 1602 98.9 96 22 130/70 92 07/12 1303 68 130/78 07/12 1135 97.8 76 22 132/78 92 Room Air 07/12 0939 Room Air Room Air 07/12 0745 92 Room Air 07/12 0735 20 92 Room Air 07/12 0729 98.1 96 18 130/78 92 Nasal 3.0L Cannula 07/12 0000 Nasal 2.0L Cannula 07/11 2220 91 120/60 07/11 2210 98.4 91 18 120/60 93 Nasal 2.0L Cannula Intake & Output 07/12 1600 07/12 0800 07/12 0000 Intake Total 810 710 480 Output Total 300 225 Balance 510 710 255 Intake, Blood 350 Product Intake, IV 10 Intake, Oral 800 360 480 Number 2 1 1 Bowel Movements Output, Urine 300 225 Patient 68.492 kg 71.384 kg Weight Physical Exam General Appearance: Alert, Oriented X3, Cooperative, No Acute Distress Cardiovascular: Regular Rate, Normal S1, Normal S2, No Murmurs Lungs: Clear to Auscultation, Normal Air Movement Abdomen: Normal Bowel Sounds, Soft, No Tenderness Extremities: left lower ext Current Medications: Current Medications Sig/Kailash Start time Last Medication Dose Route Stop Time Status Admin Acetaminophen 500 MG Q6P PRN 07/02 0815 AC 07/08 PO 1102 Aspirin 81 MG DAILY 07/01 1000 AC 07/12 PO 1303 Atorvastatin Calcium 40 MG 1700 06/30 1700 AC 07/12 PO 1726 Carvedilol 25 MG BID 06/30 2200 AC 07/12 PO 1303 Diphenoxylate HCl/ 2.5 MG TID PRN 07/08 0100 AC 07/08 Atropine PO 0836 Epoetin Ludwig 3,000 UNIT MoWeFr PRN 07/08 1200 AC IV Epoetin Ludwig 2,000 UNIT MoWeFr PRN 07/08 1200 AC IV Insulin Aspart 0 TIDAC/HS 12/04 2100 07/12 SC 1724 Insulin Detemir 4 UNITS DAILY 07/11 1000 07/12 SC 1248 Iron Sucrose 100 MG PER PROTOCL PRN 07/01 1430 AC 07/03 Sodium Chloride 100 ML IV 1221 Isosorbide 30 MG DAILY 07/09 1056 AC 07/12 Mononitrate PO 1303 Multivitamins 1 TAB DAILY 07/01 1000 AC 07/12 PO 1303 Oxycodone/ 2 TAB Q6P PRN 07/11 2230 AC 07/12 Acetaminophen PO 0857 Patient Medication 1 ED .STK-MED ONE 07/12 1311 DC Teaching ED 07/12 1312 Prednisone 5 MG DAILY 07/12 1000 AC 07/12 PO 1304 Sevelamer Carbonate 800 MG WITH MEALS 06/30 1200 AC 07/12 PO 1726 Sodium Chloride 2 SPRAY Q10MIN PRN 07/12 0230 AC CARLITOS Sodium Hypochlorite 1 CHAITANYA BID 07/05 1113 AC 07/12 TOP 1307 Tamsulosin HCl 0.4 MG DAILY 07/01 1000 AC 07/12 PO 1304 Vancomycin HCl 1,000 MG ONCE ONE 07/12 1330 DC 07/12 Sodium Chloride 250 ML IV 07/12 1429 1625 Vancomycin HCl 1 MG DAILY PRN 07/01 1300 DC 07/04 Dextrose/Water 250 ML IV 1116 Vitamin A/Vitamin D 1 CHAITANYA BID 06/30 2200 AC 07/12 TOP 1319 Zinc Oxide 1 CHAITANYA BID 06/30 2200 07/12 TOP 1210 Last 24 Hrs of Lab/Avtar Results Last 24 Hrs of Labs/Mics: Laboratory Tests 07/12/16 1633: PT 47.3 *H, INR 4.57 *H, APTT 41 H 07/12/16 0745: Anion Gap 8, Estimated GFR 21 L, BUN/Creatinine Ratio 10.0, Obi-P-Citfethwefh Pept 35439 H, CBC w Diff NO MAN DIFF REQ, RBC 2.75 L, MCV 91.5, MCH 28.8, RDW 20.1 H, MPV 9.9, Gran % 76.0 H, Lymphocytes % 9.6 L, Monocytes % 12.2 H, Eosinophils % 1.6, Basophils % 0.6, Absolute Granulocytes 5.1, Absolute Lymphocytes 0.6 L, Absolute Monocytes 0.8 H, Absolute Eosinophils 0.1, Absolute Basophils 0, PUBS MCHC 31.5 L 07/12/16 0600: Jkd-C-Jasllnxuecd Pept Cancelled, PT Cancelled, INR Cancelled 07/12/16 0216: Vancomycin Trough 12.3 Assessment/Plan Assessment: 75 y/o M with PMHx of antiphospholipid antibody syndrome, diabetes and CKD who presented with SOB, hoarseness and stridor, found to be uremic with initiation of HD, s/p debridement of chronic left leg ulcer, on IV vancomycin for soft tissue infection, currently awaiting outpatient dialysis slot. Chest Pain: Resolved. On 07/09 patient had chest pain, ekg-no acute changes. Troponins elevated at 0.14. patient was transferred to telemetry floor for continuous cardiac monitoring, cardiology on board repeat troponin trended down. Chronic left lower extremity ulcer: Has chronic nonhealing ulcers of left leg for which he sees Dr. Pretty as outpatient. S/p excisional debridement through the subcutaneous and muscular tissue with reported seropurulent drainage (06/30) and OR cultures growing diphthteroids and coag-negative Staph. Although these are not typically pathogenic organisms, currently on IV vancomycin for possible soft tissue infection.Wound appears improved, however patient complains of severe pain concerning for ischemia. * ID following * Continue vancomycin per dialysis protocol * Vascular surgery consulted again. Appreciate further evaluation regarding the vascular supply of left leg. Antiphospholipid antibody syndrome: chronic right upper extremity DVT. On life- long anti-coagulation with warfarin, takes 5 mg PO QD. * Continue to check INR daily and dose warfarin accordingly to keep INR between 2-3. * INR supratherapeutic , warfarin on hold, will follow INR levels and dose coumadin accordingly. ESRD: Cr was 5 on admission, with gradual increase from 2-3 within the past year. Most likely etiology is progressive diabetic nephropathy. Mj cath was placed and urgent hemodialysis was initiated (06/26) with improvement of mental status. Patient is currently awaiting outpatient dialysis slot. * Nephrology following * Continue HD MW * No PICC lines should be inserted per Nephrology, as patient will need vein site for placement of graft. * Continue sevelamer 800 mg PO TIDAC. * Continue daily Nephrocaps T2DM: Uncontrolled blood sugars this admission, secondary to steroids. * Endocrinology following * Levemir 4U SQ DAILY * Continue NovoLog SSI TIDAC as suggested HTN: Takes amlodipine 10 mg PO QD, carvedilol 25 mg PO BID, furosemide 80 mg PO BID and hydralazine 50 mg PO BID at home. * Holding home amlodipine, furosemide and hydralazine. * Continue home carvedilol. Crohn's disease: Patient has been taking prednisone 10 mg PO QD for many years to prevent flares. * prednisone dose reduced to 5mg daily. * GI and Endocrine ok with decreasing prednisone and help with the healing of the ulcer. Diet: Renal Dialysis Diet (regular and nectar thick liquids) DVT PPx: Warfarin and ALPs CODE: FULL Problem List: 1. Cellulitis of leg, excluding foot 2. Supratherapeutic INR 3. Anemia 4. Crohns disease 5. Peripheral vascular disease 6. Type 2 diabetes mellitus Pain Ratin Pain Location: left lower ext Pain Goal: Remain pain free Pain Plan: see A/P Tomorrow's Labs & Rationales: INR cbc for h&H monitoring HARRY MORRIS MD 07/12/16 1421: Attending MD Review Statement Attending Statement Attending MD Statement: examined this patient, discuss w/resident/PA/POLISHING MACHINE TENDER, agreed w/resident/PA/POLISHING MACHINE TENDER, discussed with family, reviewed EMR data (avail), discussed with nursing, discussed with case mgmt, amended to note Attending Assessment/Plan: A rapid response was called yesterday evening after patient was found confused. was present at bedside and reports that he has similar confusion on and off. He had no focal deficits and was answering questions dose inappropriately at times. Stat head CT was done that showed no evidence of stroke. Labs revealed mild drop in his hemoglobin levels. Patient had no gross bleeding although he and his admit to bright red blood per rectum on and off on account of his Crohn's disease. He received a unit of blood yesterday. Today patient was found alert and oriented 3. Conversing appropriately. He is jovial. He is afebrile and hemodynamically stable. Hemoglobin level is improved to 7.9 following transfusion yesterday. He denies any chest pain. Denies any shortness of breath. Continues report leg pain on and off and chronic low back pain. Case management reports that patient now has an outpatient dialysis slot. Problems: 1. Chronic left lower extremity necrotic ulcer; the level status post debridement. 2. Peripheral vascular disease 3. Chronic right upper extremity DVT secondary to antiphospholipid antibody syndrome on anticoagulation with Coumadin. 4. End-stage renal disease now on hemodialysis 5. Diabetes mellitus. 6. Crohn's disease. 7. Acute on chronic anemia Plan: -Patient is due to receive vancomycin today. He receives it after hemodialysis. Follow-up with the ID service regarding antibiotic duration. -Patient is to follow-up with the vascular surgery service as an outpatient for further evaluation and management of his chronic left lower extremity ulcer. Continue local wound care. -His chronic steroid therapy has been weaned down from 10 mg to 5 mg daily to promote wound healing as recommended by the vascular surgery service. Case was discussed with the patient's gastroenterology service. -On account of his acute on chronic anemia requiring blood transfusion recommend evaluation by the patient's gastroenterology service prior to discharge particularly in the setting of decreasing his chronic steroid therapy. It is unlikely that the dose change is playing any role in his acute anemia as his hemoglobin level has been trending down slowly prior to the medication change. -Patient's next dialysis session is on Friday-if his hemoglobin level is stable tomorrow and the if cleared by the gastric nephrology service [facility]. -His altered mentation waxes and wanes according to the . Likely secondary to in the setting of his acute illness and medication use. -Continue Percocet which he takes chronically for back pain with caution. -Patient's INR remains supratherapeutic despite multiple his Coumadin for several days. Likely secondary to interaction with his antibiotic therapy. We will continue to monitor with the goal of INR between 2 and 3.
[2016-07-12 08:57] LABS: ABSOLUTE BASOPHIL COUNT 0 /CUMM (0.0-0.2); ABSOLUTE EOSINOPHIL COUNT 0.1 /CUMM (0.0-0.7); ABSOLUTE GRANULOCYTE CT 5.1 /CUMM (1.4-6.5); ABSOLUTE LYMPH COUNT 0.6 /CUMM (1.2-3.4); ABSOLUTE MONOCYTE COUNT 0.8 /CUMM (0.10-0.60); BASOPHIL % 0.6 % (0.0-2.0); EOSINOPHIL % 1.6 % (0-5); HEMATOCRIT 25.2 % (42-52); MEAN CORPUSCULAR HGB 28.8 PG (27.0-31.0); MEAN CORPUSCULAR HGB CONC 31.5 G/DL (33.0-37.0); MEAN CORPUSCULAR VOLUME 91.5 FL (80.0-94.0); MEAN PLATELET VOLUME 9.9 FL (7.4-10.4); PLATELET COUNT 146 /CUMM (130-400); RBC DISTRIBUTION WIDTH 20.1 % (11.5-14.5); RED BLOOD CELL CT 2.75 /CUMM (4.70-6.10); WHITE BLOOD CELL COUNT 6.7 /CUMM (4.8-10.8)
--- NOTE | 2016-07-12 08:59 | NUR ---
NURSING NOTE: PT MEDICATED WITH PERCOCET IN DILAYSIS PER PRN ORDER. MEDICAL ACCOUNTS RECEIVABLE SPECIALIST UNABLE TO DRAW PT/INR BECAUSE PT IS GETTING HEPARIN WITH DILAYSIS TREATMENT. DR MORRIS AND RESIDENT AWARE AND TO CHANGE ORDER TIME FOR 1600PM. R HEEL ELEAVTED ON PILLOW; MDS AWARE OF REDNESS/BOGGY/DR SKIN. [facility] FOLLOWING
--- NOTE | 2016-07-12 10:44 | PN- Nephrology ---
Assessment/Plan Assessment: 1. ESRD likely secondary to diabetic nephropathy 2. Diabetes mellitus with peripheral vascular disease status post right TMA, status post debridement left ankle ulcer 3. Transient altered mental status yesterday possibly related to analgesic medications 4. Atypical chest pain 5. Antiphospholipid antibody syndrome status post DVT Suggestion: 1. Hemodialysis today in progress with 2-3 L ultrafiltration as tolerated over 3.25 hours; next hemodialysis for Sunday 07/15 Note: Patient has an outpatient dialysis slot at [facility] [place] for Friday at 2 PM 2. Antibiotic therapy per ID 3. Cardiology following 4. Vascular access surgery once infection no longer an issue Subjective Subjective: Patient had an episode of confusion yesterday. Concern was raised that he may have had a CVA. Imaging study was negative. Today he is not significantly confused and more alert than yesterday. His main complaint is pain in the buttock area. No chest pain. Seen with hemodialysis. Objective Vital Signs and I&Os Vital Signs Date Time Temp Pulse Resp B/P Pulse O2 O2 Flow FiO2 Ox Delivery Rate 07/12 0939 Room Air Room Air 07/12 0745 92 Room Air 07/12 0735 20 92 Room Air 07/12 0729 98.1 96 18 130/78 92 Nasal 3.0L Cannula 07/12 0000 Nasal 2.0L Cannula 07/11 2220 91 120/60 07/11 2210 98.4 91 18 120/60 93 Nasal 2.0L Cannula 07/11 1600 99 Nasal 2.0L Cannula 07/11 1500 84 18 118/50 99 Nasal 2.0L Cannula Intake & Output 07/12 1600 07/12 0400 07/11 1600 07/11 0400 07/10 1600 07/10 0400 Intake Total 710 480 700 100 580 120 Output Total 225 1 100 0 225 Balance 710 255 699 0 580 -105 Intake, Blood 350 Product Intake, IV 0 20 280 Intake, Oral 360 480 700 80 300 120 Number 1 1 2 1 1 0 Bowel Movements Output, Stool 1 Output, Urine 225 100 0 225 Patient 157 lb Weight Physical Exam: General: Well-developed white male in NAD Skin: No rash or jaundice HEENT: Conjunctivae pink, sclerae anicteric, mucous membranes moist Neck: Without masses or thyromegaly, no supraclavicular or cervical adenopathy; there is a right IJ tunneled dialysis catheter in place Chest: Clear to P&A; there is some tenderness to palpation over the right anterior chest wall Heart: Regular rate and rhythm without S3 or rub Abdomen: Soft and nontender without palpable masses or organomegaly Extremities: Lower extremity dressing intact, trace edema Neuro: More alert today, no overt confusion, no focal findings, no asterixis or myoclonus Results Pertinent Lab Results: Laboratory Tests 07/12 07/12 07/12 0745 0600 0216 Chemistry Sodium (137 - 145 mmol/L) 137 Potassium (3.5 - 5.1 mmol/L) 4.5 Chloride (98 - 107 mmol/L) 102 Carbon Dioxide (22 - 30 mmol/L) 28 Anion Gap (5 - 16) 8 BUN (9 - 20 mg/dL) 30 H Creatinine (0.7 - 1.2 mg/dL) 3.0 H Estimated GFR (>60 ml/min) 21 L BUN/Creatinine Ratio (7 - 25 %) 10.0 Wwd-U-Xbskosddwte Pept (<125 pg/mL) 08937 H Cancelled Coagulation PT Cancelled INR Cancelled Hematology CBC w Diff NO MAN DIFF REQ WBC (4.8 - 10.8 /CUMM) 6.7 RBC (4.70 - 6.10 /CUMM) 2.75 L Hgb (14.0 - 18.0 G/DL) 7.9 L Hct (42 - 52 %) 25.2 L MCV (80.0 - 94.0 FL) 91.5 MCH (27.0 - 31.0 PG) 28.8 RDW (11.5 - 14.5 %) 20.1 H Plt Count (130 - 400 /CUMM) 146 MPV (7.4 - 10.4 FL) 9.9 Gran % (42.2 - 75.2 %) 76.0 H Lymphocytes % (20.5 - 51.1 %) 9.6 L Monocytes % (1.7 - 9.3 %) 12.2 H Eosinophils % (0 - 5 %) 1.6 Basophils % (0.0 - 2.0 %) 0.6 Absolute Granulocytes (1.4 - 6.5 /CUMM) 5.1 Absolute Lymphocytes (1.2 - 3.4 /CUMM) 0.6 L Absolute Monocytes (0.10 - 0.60 /CUMM) 0.8 H Absolute Eosinophils (0.0 - 0.7 /CUMM) 0.1 Absolute Basophils (0.0 - 0.2 /CUMM) 0 PUBS MCHC (33.0 - 37.0 G/DL) 31.5 L Toxicology Vancomycin Trough (10.0 - 20.0 ug/mL) 12.3 15 07/11 1525 0350 Chemistry Sodium (137 - 145 mmol/L) 138 140 Potassium (3.5 - 5.1 mmol/L) 4.1 4.0 Chloride (98 - 107 mmol/L) 103 103 Carbon Dioxide (22 - 30 mmol/L) 28 29 Anion Gap (5 - 16) 6 7 BUN (9 - 20 mg/dL) 25 H 20 Creatinine (0.7 - 1.2 mg/dL) 2.6 H 2.2 H Estimated GFR (>60 ml/min) 24 L 29 L BUN/Creatinine Ratio (7 - 25 %) 9.6 9.1 Phosphorus (2.5 - 4.5 mg/dL) 3.3 Magnesium (1.6 - 2.3 mg/dL) 1.7 Troponin I (<0.11 ng/ml) 0.11 *H 0.12 *H Coagulation PT (9.4 - 12.5 SEC) 46.0 *H INR (0.90 - 1.17) 4.45 *H Hematology CBC w Diff NO MAN DIFF REQ NO MAN DIFF REQ WBC (4.8 - 10.8 /CUMM) 6.6 6.4 RBC (4.70 - 6.10 /CUMM) 2.34 L 2.56 L Hgb (14.0 - 18.0 G/DL) 6.8 *L 7.5 L Hct (42 - 52 %) 21.7 L 23.9 L MCV (80.0 - 94.0 FL) 92.9 93.1 MCH (27.0 - 31.0 PG) 29.1 29.2 RDW (11.5 - 14.5 %) 18.7 H 18.5 H Plt Count (130 - 400 /CUMM) 129 L 138 MPV (7.4 - 10.4 FL) 9.3 9.7 Gran % (42.2 - 75.2 %) 85.7 H 78.5 H Lymphocytes % (20.5 - 51.1 %) 4.0 L 6.4 L Monocytes % (1.7 - 9.3 %) 9.7 H 14.5 H Eosinophils % (0 - 5 %) 0.5 0.5 Basophils % (0.0 - 2.0 %) 0.1 0.1 Absolute Granulocytes (1.4 - 6.5 /CUMM) 5.7 5.0 Absolute Lymphocytes (1.2 - 3.4 /CUMM) 0.3 L 0.4 L Absolute Monocytes (0.10 - 0.60 /CUMM) 0.6 0.9 H Absolute Eosinophils (0.0 - 0.7 /CUMM) 0 0 Absolute Basophils (0.0 - 0.2 /CUMM) 0 0 PUBS MCHC (33.0 - 37.0 G/DL) 31.4 L 31.4 L 07/10 07/10 07/10 UNK 0611 0540 Chemistry Sodium (137 - 145 mmol/L) 138 Potassium (3.5 - 5.1 mmol/L) 4.3 Chloride (98 - 107 mmol/L) 104 Carbon Dioxide (22 - 30 mmol/L) 26 Anion Gap (5 - 16) 8 BUN (9 - 20 mg/dL) 10 40 H Creatinine (0.7 - 1.2 mg/dL) 2.9 H Estimated GFR (>60 ml/min) 21 L BUN/Creatinine Ratio (7 - 25 %) 13.8 Magnesium (1.6 - 2.3 mg/dL) 1.5 L Troponin I Cancelled Albumin (3.5 - 5.0 g/dL) 2.1 L Prealbumin (17.6 - 36.0 mg/dL) 11.9 L Coagulation PT (9.4 - 12.5 SEC) 45.5 *H INR (0.90 - 1.17) 4.40 *H Hematology CBC w Diff NO MAN DIFF REQ WBC (4.8 - 10.8 /CUMM) 6.9 RBC (4.70 - 6.10 /CUMM) 2.59 L Hgb (14.0 - 18.0 G/DL) 7.5 L Hct (42 - 52 %) 24.0 L MCV (80.0 - 94.0 FL) 92.6 MCH (27.0 - 31.0 PG) 29.1 RDW (11.5 - 14.5 %) 18.4 H Plt Count (130 - 400 /CUMM) 132 MPV (7.4 - 10.4 FL) 9.2 Gran % (42.2 - 75.2 %) 74.6 Lymphocytes % (20.5 - 51.1 %) 7.9 L Monocytes % (1.7 - 9.3 %) 15.9 H Eosinophils % (0 - 5 %) 1.1 Basophils % (0.0 - 2.0 %) 0.5 Absolute Granulocytes (1.4 - 6.5 /CUMM) 5.2 Absolute Lymphocytes (1.2 - 3.4 /CUMM) 0.5 L Absolute Monocytes (0.10 - 0.60 /CUMM) 1.1 H Absolute Eosinophils (0.0 - 0.7 /CUMM) 0.1 Absolute Basophils (0.0 - 0.2 /CUMM) 0 PUBS MCHC (33.0 - 37.0 G/DL) 31.5 L Toxicology Random Vancomycin (ug/ml) 8.9 13 07/09 1800 1250 Chemistry Troponin I (<0.11 ng/ml) Cancelled 0.13 *H
--- NOTE | 2016-07-12 10:56 | Discharge Summary ---
Visit Information Visit Dates Admission Date: 06/26/16 Hospital Course Course Attending Physician: HARRY MORRIS M.D Primary Care Physician: WAYNE HUGO MD Hospital Course: Consulting Request: 1 Consulting Specialty: Cardiology Consulting Request: 2 Consulting Specialty: Infectious Disease Consulting Request: 3 Consulting Specialty: Endocrinology Consulting Request: 4 Consulting Specialty: Otorhinolaryngology Hospital Course: This is a 75-year-old male with past medical history significant for antiphospholipid antibody syndrome, chronic right upper extremity deep vein thrombosis on Coumadin daily, hypertension, diabetes, chronic kidney disease stage V, severe peripheral vascular disease, left lower extremity nectrotising nonhealing ulcers status post debridement by Dr. pretty, crohns disease status post bowel resection and chronic prednisone treatment, kidney stones status post lithotripsy, right toes amputation, femoropopliteal bypass surgery was brought in by ambulance from home early in the morning for worsening of breathing, hoarseness, stridor for 2days. Problem list: -End-stage renal disease on hemodialysis -Left leg wound infection -Subglottic edema -Antiphospholipid antibody syndrome Hospital course: He was admitted to the ICU and the following were addressed so far: Hoarseness and stridor: Patient presented with worsening hoarseness, intermittent stridor and SOB. He was also lethargic on admission. Of note, he has a recent history of hospitalization at [facility] with similar symptoms in April 2016 and was treated with dexamethasone for subglottic edema. MRA and laryngoscopy were normal. Records from [facility] were also obtained, suggested infectious or inflammatory process causing subglottic edema. But no definite etiology was determined. On the day admission ENT, Dr. Dawn, performed laryngoscopy and reported bilateral vocal cord paralysis and subglottic narrowing. Xray of the neck was performed and showed a normal larynx, pharynx and upper trachea. No soft tissue swelling or opaque foreign body and no hypopharyngeal distention. CTA of neck with IV contrast did not report any abnormal anatomic findings. O2 supplementation was started as well as dexamethasone 6 mg Q8 per ENT. Patient 's hoarseness and stridor resolved over the next 48h and he was breathing comfortably in RA. Repeat Laryngoscopy on Jun [address] Crisostomo reported improvement of bilateral vocal cord paralysis, most likely viral in etiology. Patient has been breathing comfortably on room air with no hoarseness. We decreased dexamethasone dose to 4 mg Q8 today (07/01/16). dexamethasone tapered. Acute hypoxic respiratory failure: Patient presented with worsening shortness of breath. Chest x-ray and CAT scan showed left lung consolidation and pneumonia. However afebrile and no leukocytosis. We started IV ceftaz and IV vancomycin in the emergency room. However records from recent hospitalization in April 2016 at [facility] showed some of the findings were long-standing. We discontinued antibiotics on . 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 He is following Dr. Pretty as an outpatient. He underwent wound debridement in May 2016 and 06/30/2016 by at [facility], follows up with him regularly. Wound Debridement was done yesterday (06/30/16) by Dr. Pretty. Also wound consult is placed with . Per Dr. Pretty's recommendation and the fact that deep tissue cultures grew Diphtheroids, Dr. Harden agreed to restart Vancomycin. Patient received a dose today after dialysis and is put on vanc/hemodialysis protocol. We also decreased dexamethasone dose to help with better sugar control and wound healing. Chronic anticoagulation and Subtherapeutic INR on admission Patient has chronic right upper extremity DVT and is on warfarin, he has been diagnosed with anti-phospholipid syndrome >20 years ago. INR 1.31 on admission. Warfarin was on hold since admission in anticipation of wound debridement and started IV heparin both for the chronic DVT and also for the elevated troponin. We stopped IV heparin today (07/01/16) and re-started warfarin. The reason being that patient's upper extremity has significant swelling and does not allow blood to be drawn periodically per heparin protocol to calculate PTT. Decision was made after discussion with Dr. Sarah and Dr. Del Cid. Chronic kidney disease Stage V Creatinine 5 on admission, baseline creatinine 4.5. Tunnelled cath. was placed on the day of admission, before getting CTA neck with IV contrast. He underwent dialysis 3 days in a row on , and . He had his 4th day of dialysis today on 07/01/16. Cr 3.3 before dialysis today. Kept calcitriol, sodium citrate, sodium bicarbonate on hold per nephrology. On renvela and nephrovitamin. Acute coronary syndrome Denied any chest pain, racing of heart, diaphoresis, nausea, vomiting. No cardiac history in the past, stress test was normal. Elevated troponins on admission 0.95, went up to 1.11 and 1.12, came down to 0.86. No acute EKG changes on admission-sinus rhythm, rate 94, QTC 521, no acute ST-T wave changes, repeat ECGs remained unchanged. Follows Dr. Cohn line builder as an outpatient, Echo- May 2016 showed normal ejection fraction. ECHO: Poor LV endocardial definition but normal overall left ventricular systolic function. Left atrial enlargement. Moderate Pulmonary hypertension. Borderline normal left ventricular ejection fraction estimated at 50-55%. Continue with aspirin, statin, beta randy. Chronic lower extremity swelling Patient takes Lasix at home. He underwent dialysis for 3 days nad then received two doses of IV lasix 80 mg over the weekend. He got dialyzed again today, and continue on Fri/Fri/Fri schedule per nephrology. Hypomagnesemia 1.5 on admission. repleted. Please monitor magnesium and replete. Telemetry course: Continue the patient's hemodialysis as scheduled, and we dose his vancomycin accordingly, we tapered the patient Decadron dose and him on replaced his home dose of prednisone 10 mg, one to care consultation required the patient to be on hyperbaric oxygen therapy, and the patient continue his wound VAC. [facility] course: Patient was transferred to [facility] floor on friday07/08/16, he received his scheduled cycle of dialysis and received his scheduled dose of vancomycin, he was seen by ID, there was a strong thought that vascular acute process is contributing to his nonhealing ulcer on his left lower leg for which a vascular consult was placed with Dr. Pretty services, next morning around 7:00 in the morning a rapid response was called, he was having nonradiating midsternal chest pain 8/10 he reported feeling very anxious, exam and vitals were within normal limits, a stat EKG was obtained which did not show any acute abnormalities, troponin came back 0.14, he received 2 doses of sublingual nitroglycerin along with morphine which gave him some relief , as patient was having ongoing chest pain a decision was made to transfer him to telemetry floor for continued cardiac monitoring, cardiac consult was obtained with Dr. Zan Burden group, will trend troponins and EKG and follow cardiac recommendation. Also his Coumadin was held because of supratherapeutic INR. Imdur 30mg was added by cardiology, he was continued on vancomycin per dialysis schedule. rise troponins was secondary to demand ischemia. He was transferred back to [facility] floor after one day. Following afternoon a rapid was called, patient was found to be confused and altered as compared to his baseline, vitals were within normal limits and neuro exam was normal, CTs head showed no intracranial cranial pathology. He was found to have low hemoglobin of 6.8, he was transfused 1 pack of red blood cells, H&H low but stable. As per vascular his daily dose of prednisone which is 10 mg daily was contributing to his nonhealing ulcer, after consultation with GI and endocrinology dose was reduced to 5 mg daily. Also GI service is consulted to evaluate the patient before being discharged from hospital. And outpatient dialysis slot has been found by case management, vancomycin course completed. Patient was given 2 units of packed red cell one was on July 11 and otherwise on July 16. Vascular surgery was again consulted on July 16 regarding reassessing him for peripheral muscular compromise and ischemia of left lower extremity which might be cause of his known healing ulcers. Was seen by Dr. Russell and as peripheral pulses were palpable they don't believe that it was significant arterial disease but re debridement of wound was considered. History of Crohn's disease on chronic steroids for 50 years As of thought that he writes that patient is chronically dependent on is also playing a role in detailed healing of lower extremity wound. Gastroenterology was consulted and was advised to taper steroids from 10 mg to 7.5 mg for 2 weeks then 25 mg for 2 weeks then to 2.5 mg for a week and then 2.5 mg every other day for 1-2 weeks and then stop. Meanwhile patient was advice to follow up with gastroenterology as outpatient if in case of any flareup. Aspiration pneumonia: Patient developed fever along with cough CXR showed rt middle lobe opacity, treated with vancomycin and ceftazidime (07/15-07/19). Fever of unknown origin: Patient has been spiking fever off and on, source unclear, CT abdomen and chest did not show any source of infection, repeat blood cultures pending, ID on board. Allergies: Coded Allergies: Sulfa (Sulfonamide Antibiotics) (Mild, HIVES 06/15/16) Significant Procedures: Name of Procedure: Excisional debridement of left lower extremity through subcutaneous and musculature tissue greater than 20 cm, bacitracin washout, deep tissue wound culture, placement of a vacuum-assisted closure Pre-Operative Diagnosis: Left lower extremity nonhealing wound Post-Operative Diagnosis: Same Estimated Blood Loss: scant Surgeon/Roundhouse Supervisor: HONORIO PRETTY MD Anesthesia: local monitored anesthesi Specimens: Biopsy and deep tissue culture sent before administration of antibiotics Microbiology: Deep tissue culture sent of left leg. This was below the debridement level and therefore if bacterial pathogen is present suggest chronic wound infection Operative/Procedure Note Note: Patient laid supine on the operating room table. Timeout was held in accordance with [facility] policy. Patient was prepped and draped in the usual sterile surgical fashion. Wide excisional debridement was then carried out through the skin subcutaneous and musculotendinous tissue of all necrotic tissue. This was performed with a 15 blade, Metzenbaum scissors and curettes. This increased the size of the wound in all directions. The wound now extends towards the ankle and foot area. Seropurulent type drainage was noted consistent with a chronic infected field. Wound cultures were taken and then antibiotics were administered after. The wound was copiously pulse irrigated with bacitracin saline. Hemostasis was achieved with manual compression. A VAC dressing was then placed on the left leg. Sponge needle and instrument counts were correct. Patient was transported to the recovery area. We'll follow up on cultures but suggest continued antibiotic therapy as the patient's leg is now compromised and he is at high risk for limb loss. Would also recommend decreasing steroids if possible to aid in wound healing. Findings: Seropurulent type discharge with necrosis suggesting chronic infection and steroid use inhibiting wound healing. Disposition Summary Disposition Principal Diagnosis: -End-stage renal disease on hemodialysis -Left leg wound infection -Subglottic edema Additional Diagnosis: -Antiphospholipid antibody syndrome -Hypomagnesemia Discharge Disposition: SNF Discharge Instructions General Discharge Information Code Status: Full Code Patient's Diet: Diabetic diet Patient's Activity: As tolerated Follow-Up Instructions/Appts: Please follow-up with your primary care doctor after discharge Please follow-up with a line builder after discharge. Please follow-up with manual machinist discharge. Please follow-up with the vascular surgeon after discharge. Please follow-up with the wound care after discharge. Medications at Discharge Discharge Medications: Stop taking the following medications: Prednisone (Prednisone) 10 MG TABLET ORAL DAILY Amlodipine Besylate (Amlodipine Besylate) 10 MG TABLET ORAL DAILY Qty = 30 Hydralazine HCl (Hydralazine HCl) 50 MG TABLET ORAL TWICE DAILY Qty = 90 Sodium Bicarbonate (Sodium Bicarbonate) 325 MG TABLET ORAL TWICE DAILY Furosemide (Furosemide) 80 MG TABLET ORAL TWICE DAILY Qty = 60 Continue taking these medications: Cyanocobalamin (Vitamin B-12) 1,000 MCG TABLET 1 Tablet ORAL DAILY Comments: NOT TAKEN Multivit-Min/FA/Lycopen/Lutein (Centrum Silver Tablet) 1 EACH TABLET 1 Tablet ORAL DAILY Comments: NOT TAKEN Warfarin Sodium (Coumadin) 5 MG TABLET 1 Tablet ORAL DAILY Instructions: DOSE ACCORDING TO INR Citric Acid/Sodium Citrate (Cytra-2 Oral Solution) 473 ML SOLUTION 15 Milliliters ORAL TWICE DAILY Qty = 473 Comments: PREVIOUSLY NOTED 30ML QAM Last Taken: 01/28/16 Time: 9 AM Ferrous Sulfate (Ferrous Sulfate) 325 MG (65 MG IRON) TABLET 1 Tablet ORAL THREE TIMES DAILY Comments: Last Taken:05/31/16 Time:9AM Carvedilol (Carvedilol) 25 MG TABLET 1 Tablet ORAL TWICE DAILY Comments: Last Taken:05/31/16 Time:9AM Calcitriol (Rocaltrol) 0.25 MCG CAPSULE 1 Capsule ORAL DAILY Comments: Last Taken:05/31/16 Time: 9AM Sevelamer Carbonate (Renvela) 800 MG TABLET 1 Tablet ORAL TIDWM Comments: Last Taken:05/31/16 Time:12PM Tramadol HCl (Tramadol HCl) 50 MG TABLET 1 Tablet ORAL 2 x Daily as needed as needed for PAIN Qty = 180 Vitamin B Complex (B Complex) 1 EACH TABLET 1 Tablet ORAL DAILY Calcium Carbonate/Vitamin D3 (Os-Vishal 500+D3 Caplet) 500 MG-600 TABLET 1 Tablet ORAL THREE TIMES DAILY Comments: Last Taken:05/31/16 Time:9AM Oxycodone HCl/Acetaminophen (Percocet 5-325 MG Tablet) 5 MG-325 MG TABLET 1 Tablet ORAL TWICE DAILY as needed for PAIN Qty = 10 Comments: Last Taken:05/31/16 Time:12PM Insulin Aspart (Novolog) 100 UNIT/ML VIAL Units Inject into fatty tissue BEFORE MEALS AND AT BEDTIME Comments: PER PT MED LIST Start taking the following new medications: Prednisone (Prednisone) 2.5 MG TABLET 1 Tablet ORAL See Instructions Qty = 24 No Refills Instructions: TAKE 2 TABS DAILY FOR SEVEN DAYS TAKE 1 TAB DAILY FOR SEVEN DAYS TAKE 1 TAB EVERY OTHER DAY FOR ONE WEEK AND THEN STOP. The following medications have been changed: Old: Insulin Detemir (Levemir) 100 UNIT/ML VIAL 13 Units Inject into fatty tissue DAILY Qty = 10 New: Insulin Detemir (Levemir) 100 UNIT/ML VIAL 13 Units Inject into fatty tissue DAILY QAM Qty = 10 Comments: Last Taken:05/31/16 Time:9AM Copies To: BERNARDA HEATH,SERGEY; SAMARIA HEATH,LIV; GEOFFREY HEATH,IZAIAH Neil; SAMM HEATH,STEW Jarquin; YASMIN HEATH ,OLMAN; PHOENIX HEATH,HONORIO
[2016-07-12 11:35] VITALS: BP 132/78
--- NOTE | 2016-07-12 11:35 | NUR ---
NURSING NOTE: PT BACK TO FLOOR VIA BED WITH DISRIBUTION S/P DIALYSIS. PT AWAKE, A/OX3, BED ALARM IN PLACE AND WORKING. VITALS OBTAINED; WEIGHT OBTAINED VIA NIYAH. PT SETTLED INTO BED. SET UP FOR MEAL. CALLED AND AWARE. CONT TO MONITOR. HEELS ELEVATED; AWAITING DAIKINS FROM [facility] TO CHANGE DRESSING TO L LEG.
--- NOTE | 2016-07-12 11:51 | PN- Infect Dx ---
Subjective Subjective: Afebrile on steroids. He has no further chest pain and does not report left leg pain at this time. He does complain of pain in his coccyx. Episode of confusion yesterday noted, likely related to pain meds. Objective Last 24 Hrs of Vital Signs/I&O Vital Signs Date Time Temp Pulse Resp B/P Pulse O2 O2 Flow FiO2 Ox Delivery Rate 07/12 0939 Room Air Room Air 07/12 0745 92 Room Air 07/12 0735 20 92 Room Air 07/12 0729 98.1 96 18 130/78 92 Nasal 3.0L Cannula 07/12 0000 Nasal 2.0L Cannula 07/11 2220 91 120/60 07/11 2210 98.4 91 18 120/60 93 Nasal 2.0L Cannula 07/11 1600 99 Nasal 2.0L Cannula 07/11 1500 84 18 118/50 99 Nasal 2.0L Cannula Intake & Output 07/12 1600 07/12 0800 07/12 0000 Intake Total 710 480 Output Total 225 Balance 710 255 Intake, Blood 350 Product Intake, Oral 360 480 Number 1 1 Bowel Movements Output, Urine 225 Patient 157 lb Weight Physical Exam Other Physical Findings: He is awake and alert, appropriate, in no acute distress Chest tunneled catheter in the right IJ with slight tenderness near the entrance site Lungs are clear Heart regular rhythm with no murmur Extremities left leg dressing intact Results Last 24 Hours of Lab Results: Laboratory Tests 07/12 07/12 07/12 0745 0600 0216 Chemistry Sodium (137 - 145 mmol/L) 137 Potassium (3.5 - 5.1 mmol/L) 4.5 Chloride (98 - 107 mmol/L) 102 Carbon Dioxide (22 - 30 mmol/L) 28 Anion Gap (5 - 16) 8 BUN (9 - 20 mg/dL) 30 H Creatinine (0.7 - 1.2 mg/dL) 3.0 H Estimated GFR (>60 ml/min) 21 L BUN/Creatinine Ratio (7 - 25 %) 10.0 [id number] Pept (<125 pg/mL) 25792 H Cancelled Coagulation PT Cancelled INR Cancelled Hematology CBC w Diff NO MAN DIFF REQ WBC (4.8 - 10.8 /CUMM) 6.7 RBC (4.70 - 6.10 /CUMM) 2.75 L Hgb (14.0 - 18.0 G/DL) 7.9 L Hct (42 - 52 %) 25.2 L MCV (80.0 - 94.0 FL) 91.5 MCH (27.0 - 31.0 PG) 28.8 RDW (11.5 - 14.5 %) 20.1 H Plt Count (130 - 400 /CUMM) 146 MPV (7.4 - 10.4 FL) 9.9 Gran % (42.2 - 75.2 %) 76.0 H Lymphocytes % (20.5 - 51.1 %) 9.6 L Monocytes % (1.7 - 9.3 %) 12.2 H Eosinophils % (0 - 5 %) 1.6 Basophils % (0.0 - 2.0 %) 0.6 Absolute Granulocytes (1.4 - 6.5 /CUMM) 5.1 Absolute Lymphocytes (1.2 - 3.4 /CUMM) 0.6 L Absolute Monocytes (0.10 - 0.60 /CUMM) 0.8 H Absolute Eosinophils (0.0 - 0.7 /CUMM) 0.1 Absolute Basophils (0.0 - 0.2 /CUMM) 0 PUBS MCHC (33.0 - 37.0 G/DL) 31.5 L Toxicology Vancomycin Trough (10.0 - 20.0 ug/mL) 12.3 07/11 1525 Chemistry Sodium (137 - 145 mmol/L) 138 Potassium (3.5 - 5.1 mmol/L) 4.1 Chloride (98 - 107 mmol/L) 103 Carbon Dioxide (22 - 30 mmol/L) 28 Anion Gap (5 - 16) 6 BUN (9 - 20 mg/dL) 25 H Creatinine (0.7 - 1.2 mg/dL) 2.6 H Estimated GFR (>60 ml/min) 24 L BUN/Creatinine Ratio (7 - 25 %) 9.6 Troponin I (<0.11 ng/ml) 0.11 *H Hematology CBC w Diff NO MAN DIFF REQ WBC (4.8 - 10.8 /CUMM) 6.6 RBC (4.70 - 6.10 /CUMM) 2.34 L Hgb (14.0 - 18.0 G/DL) 6.8 *L Hct (42 - 52 %) 21.7 L MCV (80.0 - 94.0 FL) 92.9 MCH (27.0 - 31.0 PG) 29.1 RDW (11.5 - 14.5 %) 18.7 H Plt Count (130 - 400 /CUMM) 129 L MPV (7.4 - 10.4 FL) 9.3 Gran % (42.2 - 75.2 %) 85.7 H Lymphocytes % (20.5 - 51.1 %) 4.0 L Monocytes % (1.7 - 9.3 %) 9.7 H Eosinophils % (0 - 5 %) 0.5 Basophils % (0.0 - 2.0 %) 0.1 Absolute Granulocytes (1.4 - 6.5 /CUMM) 5.7 Absolute Lymphocytes (1.2 - 3.4 /CUMM) 0.3 L Absolute Monocytes (0.10 - 0.60 /CUMM) 0.6 Absolute Eosinophils (0.0 - 0.7 /CUMM) 0 Absolute Basophils (0.0 - 0.2 /CUMM) 0 PUBS MCHC (33.0 - 37.0 G/DL) 31.4 L Last 24 Hours of [place] Results: No recent cultures Recent Imaging Studies: CT of the head July 11 no acute process Assessment/Plan Impression: Stable with pain apparently under control at this time, though his left leg pain remains a concern and is suggestive of ischemia, though a recent outpatient angiogram was apparently negative per Vascular surgery. He is now 11 days status post excisional debridement of the left leg necrotic wound and remains afebrile with white blood cell count normal on Vancomycin, with several doses missed last week, for coag-negative Staph and diphtheroids isolated from the OR cultures. His intermittent confusion and disorientation is most likely medication related. His chest pain may be musculoskeletal, and the elevated troponin is not felt by Cardiology to be significant. Suggestion: 1. Continue Vancomycin after each dialysis per protocol
--- NOTE | 2016-07-12 15:37 | Patient Discharge Instructions ---
See Addendum Discharge Instructions General Discharge Information You were seen/treated for: Chronic left lower extremity ulcer End-stage renal disease on dialysis You had these procedures: Name of Procedure: Excisional debridement of left lower extremity through subcutaneous and musculature tissue greater than 20 cm, bacitracin washout, deep tissue wound culture, placement of a vacuum-assisted closure Special Instructions: Please follow-up with your primary care physician in one week of discharge Please follow-up with infectious disease in 1-2 weeks of discharge These follow-up with nephrology in 1-2 weeks of discharge Please take medications as prescribed Diet Recommended Diet: Renal Dialysis Activity Additional ACTIVITY Info: As tolerated with assistance Acute Coronary Syndrome Inclusion Criteria At DC or during hospital stay patient has or had the following: ACS DIAGNOSIS No Discharge Core Measures Meds if any: Prescribed or Continued at Discharge Meds if any: NOT Prescribed or Continued at Discharge Congestive Heart Failure Inclusion Criteria At DC or during hospital stay patient has or had the following: CHF DIAGNOSIS No Discharge Core Measures Meds if any: Prescribed or Continued at Discharge Meds if any: NOT Prescribed or Continued at Discharge Cerebrovascular accident Inclusion Criteria At DC or during hospital stay patient has or had the following: CVA/TIA Diagnosis No Discharge Core Measures Meds if any: Prescribed or Continued at Discharge Meds if any: NOT Prescribed or Continued at Discharge Venous thromboembolism Inclusion Criteria VTE Diagnosis No VTE Type NONE VTE Confirmed by (Test) NONE Discharge Core Measures - Per Current guidelines, there needs to be overlap - treatment for the first 5 days of Warfarin therapy. - If discharged on Warfarin prior to 5 days of - overlap therapy, the patient will need to be - assessed for post discharge needs including - *Post discharge parental anticoagulation - *Warfarin and/or parental anticoagulation education - *Follow up date to check INR post discharge At least 5 days overlap therapy as Inpatient No Meds if any: Prescribed or Continued at Discharge Note: Overlap Therapy is Warfarin and Anticoagulant Meds if any: NOT Prescribed or Continued at Discharge
--- NOTE | 2016-07-12 15:43 | NUR ---
I agree with the Manager Provider Relations's findings/evaluation of this patient's condition.
[2016-07-12 16:02] VITALS: BP 130/70
[2016-07-12 17:30] LABS: PTT 41 SEC (25-37)
[2016-07-12 17:39] LABS: PT 47.3 SEC (9.4-12.5)
--- NOTE | 2016-07-12 17:47 | NUR ---
NURSING NOTE; THIS RN NOTIFIED OF A CRITICAL LAB VALUE FOR THIS PT FROM THE LAB. PT - 47.3, INR - 4.57. THIS RN READ BACK CRITICAL LAB VALUES TO JEFFERY FROM THE LAB AND THIS RN NOTIFIED SLICING MACHINE FEEDER #[id number].
[2016-07-13 00:09] VITALS: BP 126/60
--- NOTE | 2016-07-13 06:25 | PN- Housestaff ---
Subjective Follow-up For: #1 chronic ulcer of left leg #2 end-stage renal disease #3 antiphospholipid syndrome Subjective: The patient was comfortable this morning. He did not have any complaints. He had more than 3 bowel movements in the last 24 hours. Remained afebrile, and blood pressure was stable. Last bowel movement was guaiac-negative. Review of Systems Constitutional: Reports: see HPI. Objective Last 24 Hrs of Vital Signs/I&O Vital Signs Date Time Temp Pulse Resp B/P Pulse O2 O2 Flow FiO2 Ox Delivery Rate 07/13 0116 99.8 07/13 0009 101.7 92 20 126/60 93 07/12 2145 86 138/64 07/12 1602 98.9 96 22 130/70 92 07/12 1303 68 130/78 07/12 1135 97.8 76 22 132/78 92 Room Air 07/12 0939 Room Air Room Air 07/12 0745 92 Room Air 07/12 0735 20 92 Room Air 07/12 0729 98.1 96 18 130/78 92 Nasal 3.0L Cannula Intake & Output 07/13 0800 07/13 0000 07/12 1600 Intake Total 750 810 Output Total 300 Balance 750 510 Intake, IV 250 10 Intake, Oral 500 800 Number 2 Bowel Movements Output, Urine 300 Patient 157 lb 151 lb Weight Physical Exam General Appearance: Cooperative Other Physical Findings: General Exam: AAOx3, No acute distress, Skin: No rashes, HEENT: PERRLA, EOMI Neck: Supple, No JVD No cervical lymphadenopathy CVS: Reg Rate, Normal S1,S2, No MGR Resp: Normal air entry, no ronchi/rales Abdomen: Soft, No tenderness, Normal Bowel Sounds Neuro: Normal Speech, Strength 5/5 b/l x 4 extremities, Sensation intact, CN III -XII NL, Reflexes 2+ Extremities: No cyanosis, Pedal edema 1+. Left leg ulcer w/ dressing in place. Current Medications: Current Medications Sig/Kailash Start time Last Medication Dose Route Stop Time Status Admin Acetaminophen 500 MG Q6P PRN 07/02 0815 AC 07/08 PO 1102 Aspirin 81 MG DAILY 07/01 1000 AC 07/12 PO 1303 Atorvastatin Calcium 40 MG 1700 06/30 1700 AC 07/12 PO 1726 Carvedilol 25 MG BID 06/30 2200 AC 07/12 PO 2145 Diphenoxylate HCl/ 2.5 MG TID PRN 07/08 0100 AC 07/08 Atropine PO 0836 Epoetin Ludwig 3,000 UNIT MoWeFr PRN 07/08 1200 AC IV Epoetin Ludwig 2,000 UNIT MoWeFr PRN 07/08 1200 AC IV Insulin Aspart 0 TIDAC/HS 06/30 2100 AC 07/12 SC 1724 Insulin Detemir 4 UNITS DAILY 07/11 1000 AC 07/12 SC 1248 Iron Sucrose 100 MG PER PROTOCL PRN 07/01 1430 AC 07/03 Sodium Chloride 100 ML IV 1221 Isosorbide 30 MG DAILY 07/09 1056 AC 07/12 Mononitrate PO 1303 Multivitamins 1 TAB DAILY 07/01 1000 AC 07/12 PO 1303 Oxycodone/ 2 TAB Q6P PRN 07/11 2230 AC 07/12 Acetaminophen PO 0857 Patient Medication 1 ED .STK-MED ONE 07/12 1311 DC Teaching ED 07/12 1312 Prednisone 5 MG DAILY 07/12 1000 AC 07/12 PO 1304 Sevelamer Carbonate 800 MG WITH MEALS 06/30 1200 AC 07/12 PO 1726 Sodium Chloride 2 SPRAY Q10MIN PRN 07/12 0230 AC CARLITOS Sodium Hypochlorite 1 CHAITANYA BID 07/05 1113 AC 07/12 TOP 1307 Tamsulosin HCl 0.4 MG DAILY 07/01 1000 AC 07/12 PO 1304 Vancomycin HCl 1,000 MG ONCE ONE 07/12 1330 DC 07/12 Sodium Chloride 250 ML IV 07/12 1429 1625 Vancomycin HCl 1 MG DAILY PRN 07/01 1300 DC 07/04 Dextrose/Water 250 ML IV 1116 Vitamin A/Vitamin D 1 CHAITANYA BID 06/30 2200 AC 07/12 TOP 2146 Zinc Oxide 1 CHAITANYA BID 06/30 2200 07/12 TOP 2145 Last 24 Hrs of Lab/Avtar Results Last 24 Hrs of Labs/Mics: Laboratory Tests 07/12/16 1633: PT 47.3 *H, INR 4.57 *H, APTT 41 H 07/12/16 0745: Anion Gap 8, Estimated GFR 21 L, BUN/Creatinine Ratio 10.0, Wxg-E-Ucqrwrkywlc Pept 84100 H, CBC w Diff NO MAN DIFF REQ, RBC 2.75 L, MCV 91.5, MCH 28.8, RDW 20.1 H, MPV 9.9, Gran % 76.0 H, Lymphocytes % 9.6 L, Monocytes % 12.2 H, Eosinophils % 1.6, Basophils % 0.6, Absolute Granulocytes 5.1, Absolute Lymphocytes 0.6 L, Absolute Monocytes 0.8 H, Absolute Eosinophils 0.1, Absolute Basophils 0, PUBS MCHC 31.5 L Assessment/Plan Assessment: 75 y/o M with PMHx of antiphospholipid antibody syndrome, diabetes and CKD who presented with SOB, hoarseness and stridor, found to be uremic with initiation of HD, s/p debridement of chronic left leg ulcer, on IV vancomycin for soft tissue infection, currently awaiting outpatient dialysis slot. Chest Pain: Resolved. On 07/09 patient had chest pain, ekg-no acute changes. Troponins elevated at 0.14. patient was transferred to telemetry floor for continuous cardiac monitoring, cardiology on board repeat troponin trended down. Chronic left lower extremity ulcer: Has chronic nonhealing ulcers of left leg for which he sees Dr. Pretty as outpatient. S/p excisional debridement through the subcutaneous and muscular tissue with reported seropurulent drainage (06/30) and OR cultures growing diphthteroids and coag-negative Staph. Although these are not typically pathogenic organisms, currently on IV vancomycin for possible soft tissue infection.Wound appears improved, however patient complains of severe pain concerning for ischemia. * ID following * Continue vancomycin per dialysis protocol * Vascular surgery consulted again. Appreciate further evaluation regarding the vascular supply of left leg. Antiphospholipid antibody syndrome: chronic right upper extremity DVT. On life- long anti-coagulation with warfarin, takes 5 mg PO QD. * Continue to check INR daily and dose warfarin accordingly to keep INR between 2-3. INR 2.66. Home dose of Coumadin and resume today. ESRD: Cr was 5 on admission, with gradual increase from 2-3 within the past year. Most likely etiology is progressive diabetic nephropathy. Mj cath was placed and urgent hemodialysis was initiated (06/26) with improvement of mental status. Patient is currently awaiting outpatient dialysis slot. * Nephrology following * Continue HD MW * No PICC lines should be inserted per Nephrology, as patient will need vein site for placement of graft. * Continue sevelamer 800 mg PO TIDAC. * Continue daily Nephrocaps T2DM: Uncontrolled blood sugars this admission, secondary to steroids. * Endocrinology following * Levemir 4U SQ DAILY * Continue NovoLog SSI TIDAC as suggested HTN: Takes amlodipine 10 mg PO QD, carvedilol 25 mg PO BID, furosemide 80 mg PO BID and hydralazine 50 mg PO BID at home. * Holding home amlodipine, furosemide and hydralazine. * Continue home carvedilol. Crohn's disease: Patient has been taking prednisone 10 mg PO QD for many years to prevent flares. * prednisone dose 7.5 mg daily. As per recommendations from GI. * Aspirin GI, the patient to remain on aspirin, Protonix needed to be added. Diet: Renal Dialysis Diet (regular and nectar thick liquids) DVT PPx: Warfarin and ALPs CODE: FULL Problem List: 1. Chest pain 2. Crohns disease 3. Type 2 diabetes mellitus Pain Ratin Pain Location: Left lower extremity Pain Goal: Pain 4 or less Pain Plan: Tylenol when necessary Tomorrow's Labs & Rationales: CBC, basic electrolyte panel, INR
[2016-07-13 06:52] VITALS: BP 132/60
[2016-07-13 08:08] LABS: ABSOLUTE BASOPHIL COUNT 0 /CUMM (0.0-0.2); ABSOLUTE EOSINOPHIL COUNT 0.1 /CUMM (0.0-0.7); ABSOLUTE GRANULOCYTE CT 5.7 /CUMM (1.4-6.5); ABSOLUTE LYMPH COUNT 0.6 /CUMM (1.2-3.4); BASOPHIL % 0.6 % (0.0-2.0); EOSINOPHIL % 1.4 % (0-5); GRANULOCYTE % 76.4 % (42.2-75.2); HEMATOCRIT 26.5 % (42-52); MEAN CORPUSCULAR HGB 28.7 PG (27.0-31.0); MEAN CORPUSCULAR HGB CONC 31.8 G/DL (33.0-37.0); MEAN CORPUSCULAR VOLUME 90.3 FL (80.0-94.0); MEAN PLATELET VOLUME 9.4 FL (7.4-10.4); PLATELET COUNT 145 /CUMM (130-400); RBC DISTRIBUTION WIDTH 19.3 % (11.5-14.5); RED BLOOD CELL CT 2.93 /CUMM (4.70-6.10); WHITE BLOOD CELL COUNT 7.5 /CUMM (4.8-10.8)
[2016-07-13 08:46] LABS: PT 27.7 SEC (9.4-12.5)
--- NOTE | 2016-07-13 14:02 | PN- Diabetes ---
Assessment/Plan Assessment: The patient is out of the intensive care unit. He is on dialysis. Levemir was decreased to 4 units daily. His prednisone has been decreased to 5 mg once a day in the morning. He is on sliding scale NovoLog before meals starting with 3 units for 80-150. His FSGs were 203, 167, 211,133, 117 and 259. Plan: continue the current insulin orders for now; monitor FSGs; will follow. Subjective Subjective: He has no special complaints at this moment. Objective Last 24 Hrs of Vital Signs/I&O Vital Signs Date Time Temp Pulse Resp B/P Pulse O2 O2 Flow FiO2 Ox Delivery Rate 07/13 0827 88 136/78 07/13 0800 92 Room Air 07/13 0652 98.2 90 20 132/60 91 Room Air 07/13 0116 99.8 07/13 0009 101.7 92 20 126/60 93 07/12 2145 86 138/64 07/12 1602 98.9 96 22 130/70 92 Intake & Output 07/13 1600 07/13 0800 07/13 0000 Intake Total 120 750 Output Total Balance 120 750 Intake, IV 250 Intake, Oral 120 500 Number 1 1 Bowel Movements Patient 157 lb Weight Findings Pertinent Lab/Avtar Results: Laboratory Tests 07/13 07/12 0620 1633 Coagulation PT (9.4 - 12.5 SEC) 27.7 H 47.3 *H INR (0.90 - 1.17) 2.66 H 4.57 *H APTT (25 - 37 SEC) 41 H Hematology CBC w Diff NO MAN DIFF REQ WBC (4.8 - 10.8 /CUMM) 7.5 RBC (4.70 - 6.10 /CUMM) 2.93 L Hgb (14.0 - 18.0 G/DL) 8.4 L Hct (42 - 52 %) 26.5 L MCV (80.0 - 94.0 FL) 90.3 MCH (27.0 - 31.0 PG) 28.7 RDW (11.5 - 14.5 %) 19.3 H Plt Count (130 - 400 /CUMM) 145 MPV (7.4 - 10.4 FL) 9.4 Gran % (42.2 - 75.2 %) 76.4 H Lymphocytes % (20.5 - 51.1 %) 8.5 L Monocytes % (1.7 - 9.3 %) 13.1 H Eosinophils % (0 - 5 %) 1.4 Basophils % (0.0 - 2.0 %) 0.6 Absolute Granulocytes (1.4 - 6.5 /CUMM) 5.7 Absolute Lymphocytes (1.2 - 3.4 /CUMM) 0.6 L Absolute Monocytes (0.10 - 0.60 /CUMM) 1.0 H Absolute Eosinophils (0.0 - 0.7 /CUMM) 0.1 Absolute Basophils (0.0 - 0.2 /CUMM) 0 PUBS MCHC (33.0 - 37.0 G/DL) 31.8 L
--- NOTE | 2016-07-13 15:54 | PN- Att Addend ---
Attending Addendum Attending Brief Note Pt seen and examined and discussed with resident. ESRD on HD- pt has a hemodialysis spot at [facility] for Friday. Deconditioning, pt to be dced to [facility]. Anemia acute requiring blood transfusion- GI to evaluate the patient. If stable and no workup needed, will dc tomorrow to [facility] d/w pt and his at bedside the care plan.
[2016-07-13 16:20] VITALS: BP 114/58
--- NOTE | 2016-07-13 17:47 | Cons- Gastroenterology ---
General Information and HPI Consulting Request Date of Consult: 07/13/16 (MD Jeimy/Gastroenterology) Requested By: HARRY MORRIS M.D Reason for Consult: Crohn's disease Anemia Source of Information: patient Exam Limitations: poor historian History of Present Illness: Patient with chronic kidney disease now placed on dialysis, diabetes mellitus, PAD/PVD, antiphospholipid antibody syndrome requiring chronic anticoagulation, admitted with shortness of breath. He has had an extended hospitalization. The patient relays a 50 year history of Crohn's disease (records unavailable for review), with resection of most of his colon decades ago. He believes that he had active inflammation on most recent colonoscopy. He claims to have chronic diarrhea for which he takes Lomotil, as well as frequent abdominal pain. He has been on prednisone for many years, most recently at 10 mg daily. He was apparently on 6-mercaptopurine but he claims that this was stopped by his primary care physician. He denies perirectal disease, known fistulas, recent obstruction, evident blood per rectum, recent weight loss. He also denies heartburn, indigestion, nausea, vomiting. During this hospitalization the patient has been anemic, and required 1 unit packed red blood cells. According to his RN, his stool today was soft and Hemoccult negative. He has started dialysis. He is anticoagulated, and recently had a supratherapeutic INR. His prednisone dose was cut from 10 mg to 5 mg this past week. He is on aspirin. In 2012 the patient underwent EGD which demonstrated a small hiatal hernia, gastric polyps, erosive gastritis and duodenitis, question of gastroparesis. Concurrent colonoscopy revealed a normal rectum aside from inflamed internal hemorrhoids, subtotal colectomy with normal colonic mucosa and anastomosis at 30 cm, and a normal ileum. The patient is a former tobacco smoker. There is no family history of GI malignancy or inflammatory bowel disease. He denies the use of NSAIDs. Allergies/Medications Allergies: Coded Allergies: Sulfa (Sulfonamide Antibiotics) (Mild, HIVES 06/15/16) Home Med List: Amlodipine Besylate 10 MG TABLET 1 TAB PO DAILY BP (Reported) Calcitriol (Rocaltrol) 0.25 MCG CAPSULE 1 CAP PO DAILY KIDNEYS (Reported) Calcium Carbonate/Vitamin D3 (Os-Vishal 500+D3 Caplet) 500 MG-600 TABLET 1 TAB PO TID SUPPLEMENT (Reported) Carvedilol 25 MG TABLET 1 TAB PO BID HEART (Reported) Citric Acid/Sodium Citrate (Cytra-2 Oral Solution) 473 ML SOLUTION 15 ML PO BID KIDNEYS (Reported) Cyanocobalamin (Vitamin B-12) 1,000 MCG TABLET 1 TAB PO DAILY SUPPLEMENT ( Reported) Ferrous Sulfate 325 MG (65 MG IRON) TABLET 1 TAB PO TID SUPPLEMENT (Reported) Furosemide 80 MG TABLET 1 TAB PO BID LEG SWELLING (Reported) Hydralazine HCl 50 MG TABLET 1 TAB PO BID HEART (Reported) Insulin Aspart (Novolog) 100 UNIT/ML VIAL DM (Reported) Insulin Detemir (Levemir) 100 UNIT/ML VIAL 13 UNITS SC DAILY QAM DM Multivit-Min/FA/Lycopen/Lutein (Centrum Silver Tablet) 1 EACH TABLET 1 TAB PO DAILY SUPPLEMENT (Reported) Oxycodone HCl/Acetaminophen (Percocet 5-325 MG Tablet) 5 MG-325 MG TABLET 1 TAB PO BID PRN PAIN Prednisone 10 MG TABLET 1 TAB PO DAILY KIDNEYS (Reported) Sevelamer Carbonate (Renvela) 800 MG TABLET 1 TAB PO TIDWM KIDNEYS (Reported) Sodium Bicarbonate 325 MG TABLET 1 TAB PO BID KIDNEYS (Reported) Tramadol HCl 50 MG TABLET 1 TAB PO BIDP PRN PAIN (Reported) Vitamin B Complex (B Complex) 1 EACH TABLET 1 TAB PO DAILY SUPPLEMENT ( Reported) Warfarin Sodium (Coumadin) 5 MG TABLET 1 TAB PO DAILY BLOOD THINNER (Reported ) DOSE ACCORDING TO INR Current Medications: Current Medications Sig/Kailash Start time Last Medication Dose Route Stop Time Status Admin Acetaminophen 500 MG Q6P PRN 07/02 0815 AC 07/08 PO 1102 Aspirin 81 MG DAILY 07/01 1000 AC 07/13 PO 0828 Atorvastatin Calcium 40 MG 1700 06/30 1700 AC 07/12 PO 1726 Carvedilol 25 MG BID 06/30 2200 AC 07/13 PO 0827 Diphenoxylate HCl/ 2.5 MG TID PRN 07/08 0100 AC 07/13 Atropine PO 1240 Epoetin Ludwig 3,000 UNIT MoWeFr PRN 07/08 1200 AC IV Epoetin Ludwig 2,000 UNIT MoWeFr PRN 07/08 1200 AC IV Insulin Aspart 0 TIDAC/HS 06/30 2100 AC 07/13 SC 1209 Insulin Detemir 4 UNITS DAILY 07/11 1000 AC 07/13 SC 0827 Iron Sucrose 100 MG PER PROTOCL PRN 07/01 1430 AC 07/03 Sodium Chloride 100 ML IV 1221 Isosorbide 30 MG DAILY 07/09 1056 AC 07/13 Mononitrate PO 0828 Multivitamins 1 TAB DAILY 07/01 1000 AC 07/13 PO 0828 Oxycodone/ 2 TAB Q6P PRN 07/11 2230 AC 07/13 Acetaminophen PO 1444 Patient Medication 1 UNIT ONE NR 07/13 1045 DC Teaching ED 07/13 1100 Prednisone 5 MG DAILY 07/12 1000 AC 07/13 PO 0828 Sevelamer Carbonate 800 MG WITH MEALS 06/30 1200 AC 07/13 PO 1210 Sodium Chloride 2 SPRAY Q10MIN PRN 07/12 0230 AC CARLITOS Sodium Hypochlorite 1 CHAITANYA BID 07/05 1113 AC 07/13 TOP 1422 Tamsulosin HCl 0.4 MG DAILY 07/01 1000 AC 07/13 PO 0828 Vitamin A/Vitamin D 1 CHAITANYA BID 06/30 2200 AC 07/13 TOP 0828 Warfarin Sodium 5 MG COUMADIN 1700 ONE 07/13 1700 DC PO 07/13 1701 Zinc Oxide 1 CHAITANYA BID 06/30 2200 AC 07/13 TOP 0828 Past History Travel History Traveled to [place] past 21 day No Medical History Blood Transfusion Hx: Yes Neurological: NONE EENT: NONE Cardiovascular: PVD, DVT Respiratory: pneumonia Gastrointestinal: Crohn's disease Hepatic: NONE Renal: nephrolithiasis, CKD Musculoskeletal: VASCULAR OCCLUSION RIGHT LEG RIGHT PATELLA FRACTURE WITH orif NON HEALING WOUNDS R. TOE AMPUTATIONS Psychiatric: NONE Endocrine: diabetes Blood Disorders: anemia, coagulopathy, DVT (RUE and RLE), antiphosphlipid syndrome Cancer(s): NONE OPAL MINER/Reproductive: NONE Surgical History Surgical History: colon resection, knee replacement (left), LEFT HIP ORIF status post right leg bypass status post right patellar ORIF status post right TMA status post lithotripsy and stent placements Family History Relations & Conditions If Any: FATHER Antiphospholipid syndrome FH: diabetes mellitus MOTHER FH: Crohn's disease Psychosocial History Where Do You Live? Home Who Do You Live With? spouse Services at Home: None Primary Language: Uzbek Smoking Status: Former Smoker ETOH Use: denies use Illicit Drug Use: denies illicit drug use Functional Ability ADLs Independent: dressing, eating, toileting, bathing. Ambulation: walker IADLs Needs Assist: shopping, housework, finances, food prep, telephone, transportation, medication admin. ECHO Results (as available) Date of last Echo 12/11/15 EF% 65 Review of Systems Review of Systems Constitutional: Reports: malaise. Denies: chills, fever, unexplained weight loss. EENTM: Denies: icterus, epistaxis. Cardiovascular: Reports: edema. Denies: syncope. Respiratory: Reports: short of breath. Denies: hemoptysis. GI: Reports: see HPI. Genitourinary: Reports: dysuria. Denies: frequency. Musculoskeletal: Denies: muscle stiffness, neck pain. Skin: Denies: jaundice, lesions. Neurological/Psychological: Denies: cognitive dysfunction, tonic-clonic seizures. Hematologic/Endocrine: Reports: bruising. Denies: bleeding. Exam & Diagnostic Data Vital Signs and I&O Vital Signs Date Time Temp Pulse Resp B/P Pulse O2 O2 Flow FiO2 Ox Delivery Rate 07/13 1620 98.0 95 19 114/58 93 07/13 0827 88 136/78 07/13 0800 92 Room Air 07/13 0652 98.2 90 20 132/60 91 Room Air 07/13 0116 99.8 07/13 0009 101.7 92 20 126/60 93 07/12 2145 86 138/64 Intake & Output 07/13 1600 07/13 0400 07/12 1600 07/12 0400 07/11 1600 07/11 0400 Intake Total 058 355 1945 480 700 100 Output Total 400 300 225 1 100 Balance 780 027 2312 255 699 0 Intake, Blood 350 Product Intake, IV 10 250 10 0 20 Intake, Oral 954 230 8371 480 700 80 Number 2 3 1 2 1 Bowel Movements Output, Stool 1 Output, Urine 400 300 225 100 Patient 157 lb 151 lb Weight Physical Exam: Ill-appearing male, alert and oriented. Skin with multiple ecchymoses. No jaundice. Sclera anicteric. Mucous membranes and tongue dry. Poor dentition. Neck supple without adenopathy, thyromegaly, or JVD. Heart irregular rhythm. Lungs clear bilaterally, anterolateral. Right chest dialysis catheter. Abdomen with long midline scar, no distention, normal bowel sounds; no tenderness, mass or hepatosplenomegaly. No hernias. Extremities with bandaged left leg, post right TMA, trace edema, brawny vascular changes. Results Pertinent Lab Results: Laboratory Tests 07/13 07/12 0620 1633 Coagulation PT (9.4 - 12.5 SEC) 27.7 H 47.3 *H INR (0.90 - 1.17) 2.66 H 4.57 *H APTT (25 - 37 SEC) 41 H Hematology CBC w Diff NO MAN DIFF REQ WBC (4.8 - 10.8 /CUMM) 7.5 RBC (4.70 - 6.10 /CUMM) 2.93 L Hgb (14.0 - 18.0 G/DL) 8.4 L Hct (42 - 52 %) 26.5 L MCV (80.0 - 94.0 FL) 90.3 MCH (27.0 - 31.0 PG) 28.7 RDW (11.5 - 14.5 %) 19.3 H Plt Count (130 - 400 /CUMM) 145 MPV (7.4 - 10.4 FL) 9.4 Gran % (42.2 - 75.2 %) 76.4 H Lymphocytes % (20.5 - 51.1 %) 8.5 L Monocytes % (1.7 - 9.3 %) 13.1 H Eosinophils % (0 - 5 %) 1.4 Basophils % (0.0 - 2.0 %) 0.6 Absolute Granulocytes (1.4 - 6.5 /CUMM) 5.7 Absolute Lymphocytes (1.2 - 3.4 /CUMM) 0.6 L Absolute Monocytes (0.10 - 0.60 /CUMM) 1.0 H Absolute Eosinophils (0.0 - 0.7 /CUMM) 0.1 Absolute Basophils (0.0 - 0.2 /CUMM) 0 PUBS MCHC (33.0 - 37.0 G/DL) 31.8 L 07/12 07/12 07/12 0745 0600 0216 Chemistry Sodium (137 - 145 mmol/L) 137 Potassium (3.5 - 5.1 mmol/L) 4.5 Chloride (98 - 107 mmol/L) 102 Carbon Dioxide (22 - 30 mmol/L) 28 Anion Gap (5 - 16) 8 BUN (9 - 20 mg/dL) 30 H Creatinine (0.7 - 1.2 mg/dL) 3.0 H Estimated GFR (>60 ml/min) 21 L BUN/Creatinine Ratio (7 - 25 %) 10.0 Edg-C-Lerkqrrhmzx Pept (<125 pg/mL) 81017 H Cancelled Coagulation PT Cancelled INR Cancelled Hematology CBC w Diff NO MAN DIFF REQ WBC (4.8 - 10.8 /CUMM) 6.7 RBC (4.70 - 6.10 /CUMM) 2.75 L Hgb (14.0 - 18.0 G/DL) 7.9 L Hct (42 - 52 %) 25.2 L MCV (80.0 - 94.0 FL) 91.5 MCH (27.0 - 31.0 PG) 28.8 RDW (11.5 - 14.5 %) 20.1 H Plt Count (130 - 400 /CUMM) 146 MPV (7.4 - 10.4 FL) 9.9 Gran % (42.2 - 75.2 %) 76.0 H Lymphocytes % (20.5 - 51.1 %) 9.6 L Monocytes % (1.7 - 9.3 %) 12.2 H Eosinophils % (0 - 5 %) 1.6 Basophils % (0.0 - 2.0 %) 0.6 Absolute Granulocytes (1.4 - 6.5 /CUMM) 5.1 Absolute Lymphocytes (1.2 - 3.4 /CUMM) 0.6 L Absolute Monocytes (0.10 - 0.60 /CUMM) 0.8 H Absolute Eosinophils (0.0 - 0.7 /CUMM) 0.1 Absolute Basophils (0.0 - 0.2 /CUMM) 0 PUBS MCHC (33.0 - 37.0 G/DL) 31.5 L Toxicology Vancomycin Trough (10.0 - 20.0 ug/mL) 12.3 15 07/11 1525 0350 Chemistry Sodium (137 - 145 mmol/L) 138 140 Potassium (3.5 - 5.1 mmol/L) 4.1 4.0 Chloride (98 - 107 mmol/L) 103 103 Carbon Dioxide (22 - 30 mmol/L) 28 29 Anion Gap (5 - 16) 6 7 BUN (9 - 20 mg/dL) 25 H 20 Creatinine (0.7 - 1.2 mg/dL) 2.6 H 2.2 H Estimated GFR (>60 ml/min) 24 L 29 L BUN/Creatinine Ratio (7 - 25 %) 9.6 9.1 Phosphorus (2.5 - 4.5 mg/dL) 3.3 Magnesium (1.6 - 2.3 mg/dL) 1.7 Troponin I (<0.11 ng/ml) 0.11 *H 0.12 *H Coagulation PT (9.4 - 12.5 SEC) 46.0 *H INR (0.90 - 1.17) 4.45 *H Hematology CBC w Diff NO MAN DIFF REQ NO MAN DIFF REQ WBC (4.8 - 10.8 /CUMM) 6.6 6.4 RBC (4.70 - 6.10 /CUMM) 2.34 L 2.56 L Hgb (14.0 - 18.0 G/DL) 6.8 *L 7.5 L Hct (42 - 52 %) 21.7 L 23.9 L MCV (80.0 - 94.0 FL) 92.9 93.1 MCH (27.0 - 31.0 PG) 29.1 29.2 RDW (11.5 - 14.5 %) 18.7 H 18.5 H Plt Count (130 - 400 /CUMM) 129 L 138 MPV (7.4 - 10.4 FL) 9.3 9.7 Gran % (42.2 - 75.2 %) 85.7 H 78.5 H Lymphocytes % (20.5 - 51.1 %) 4.0 L 6.4 L Monocytes % (1.7 - 9.3 %) 9.7 H 14.5 H Eosinophils % (0 - 5 %) 0.5 0.5 Basophils % (0.0 - 2.0 %) 0.1 0.1 Absolute Granulocytes (1.4 - 6.5 /CUMM) 5.7 5.0 Absolute Lymphocytes (1.2 - 3.4 /CUMM) 0.3 L 0.4 L Absolute Monocytes (0.10 - 0.60 /CUMM) 0.6 0.9 H Absolute Eosinophils (0.0 - 0.7 /CUMM) 0 0 Absolute Basophils (0.0 - 0.2 /CUMM) 0 0 PUBS MCHC (33.0 - 37.0 G/DL) 31.4 L 31.4 L Assessment/Plan Assessment/Recommendations: Crohn's disease status post subtotal colectomy, without active ileal/colonic disease on colonoscopy in 2013. EGD at that time demonstrated erosive gastroduodenitis with question of Upper GI Crohn's. Chronic diarrhea managed with Lomotil. The patient has been on long-standing prednisone; apparently attempts (by Dr. Moreira) to wean were unsuccessful. 6-MP was stopped (unclear when, by who). Occasional hematochezia, with previously described friable internal hemorrhoids. The patient's anemia is certainly multifactorial, and may be due to ESRD, nutritional factors, occult bleeding while on anticoagulation (especially given recent supratherapeutic INR, and therapy with corticosteroids and aspirin, but no antisecretory prophylaxis despite previous EGD findings), etc. his stool is Hemoccult-negative today. There has been a more than expected rise in hemoglobin following transfusion. The recent drop in prednisone dose from 10 mg to 5 mg daily would have no effect on anemia, nor immediately on status of Crohn 's. The use of maintenance corticosteroid therapy in IBD is not standard/acceptable. 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 Change in therapy of Crohn's will need to be addressed in the outpatient setting. Recommendations * Change prednisone to 7.5 mg daily, and taper to 5 mg in 2 weeks. * Prophylactic PPI or H2 receptor antagonist if the patient is to remain on aspirin, as long as he is concurrently on prednisone and warfarin. * Lomotil 3 times a day when necessary * Outpatient evaluation of diarrhea * Outpatient evaluation of Crohn's disease, with Dr. Moreira Copies To: OANH HEATH,WAYNE Posada; LISA HEATH,LIVE Ayala; ELMA HEATH,OLEG Consult Acknowledgment - Thank you for your consult request.
[2016-07-14] VITALS: BP 120/56
--- NOTE | 2016-07-14 06:33 | PN- Housestaff ---
Subjective Follow-up For: Chronic ulcer of the left leg Subjective: The patient was comfortable this morning. However stated that he still had pain in his left lower extremity. No shortness of breath, chest pain. Tm 100.5. Review of Systems Constitutional: Reports: see HPI. Objective Last 24 Hrs of Vital Signs/I&O Vital Signs Date Time Temp Pulse Resp B/P Pulse O2 O2 Flow FiO2 Ox Delivery Rate 07/14 0000 97.9 84 20 120/56 95 07/13 2152 90 116/62 07/13 2141 95 Room Air 07/13 1620 98.0 95 19 114/58 93 07/13 0827 88 136/78 07/13 0800 92 Room Air 07/13 0652 98.2 90 20 132/60 91 Room Air Intake & Output 07/14 0800 07/14 0000 07/13 1600 Intake Total 240 100 810 Output Total 400 Balance 240 100 410 Intake, IV 10 Intake, Oral 240 100 800 Number 2 1 2 Bowel Movements Output, Urine 400 Patient 157 lb Weight Physical Exam General Appearance: Cooperative Other Physical Findings: General Exam: AAOx3, No acute distress, Skin: No rashes, no breakdown HEENT: PERRLA, EOMI Neck: Supple, No JVD No cervical lymphadenopathy CVS: Reg Rate, Normal S1,S2, No MGR Resp: Normal air entry, no ronchi/rales Abdomen: Soft, No tenderness, Normal Bowel Sounds Neuro: Normal Speech, Strength 5/5 b/l x 4 extremities, Sensation intact, CN III -XII NL, Reflexes 2+ Extremities: No cyanosis, no pedal edema, left lower extremity ulcer. Current Medications: Current Medications Sig/Kailash Start time Last Medication Dose Route Stop Time Status Admin Acetaminophen 500 MG Q6P PRN 07/02 0815 AC 07/08 PO 1102 Aspirin 81 MG DAILY 07/01 1000 AC 07/13 PO 0828 Atorvastatin Calcium 40 MG 1700 06/30 1700 AC 07/13 PO 1800 Carvedilol 25 MG BID 06/30 2200 AC 07/13 PO 2152 Diphenoxylate HCl/ 2.5 MG TID PRN 07/08 0100 AC 07/13 Atropine PO 1240 Epoetin Ludwig 3,000 UNIT MoWeFr PRN 07/08 1200 AC IV Epoetin Ludwig 2,000 UNIT MoWeFr PRN 07/08 1200 AC IV Insulin Aspart 0 TIDAC/HS 06/30 2100 AC 07/13 SC 2152 Insulin Detemir 4 UNITS DAILY 07/11 1000 AC 07/13 SC 0827 Iron Sucrose 100 MG PER PROTOCL PRN 07/01 1430 AC 07/03 Sodium Chloride 100 ML IV 1221 Isosorbide 30 MG DAILY 07/09 1056 AC 07/13 Mononitrate PO 0828 Multivitamins 1 TAB DAILY 07/01 1000 AC 07/13 PO 0828 Omeprazole 40 MG DAILY AC 07/14 0700 AC 07/14 PO 0604 Oxycodone/ 2 TAB Q6P PRN 07/11 2230 AC 07/13 Acetaminophen PO 2001 Patient Medication 1 UNIT ONE NR 07/13 2015 [facility] Teaching ED 07/13 2030 Patient Medication 1 UNIT ONE NR 07/13 1045 [facility] ED 07/13 1100 Prednisone 7.5 MG DAILY 07/14 1000 AC PO Prednisone 5 MG DAILY 07/12 1000 NH 07/13 PO 0828 Sevelamer Carbonate 800 MG WITH MEALS 06/30 1200 AC 07/13 PO 1800 Sodium Chloride 2 SPRAY Q10MIN PRN 07/12 0230 AC CARLITOS Sodium Hypochlorite 1 CHAITANYA BID 07/05 1113 AC 07/13 TOP 2152 Tamsulosin HCl 0.4 MG DAILY 07/01 1000 AC 07/13 PO 0828 Vitamin A/Vitamin D 1 CHAITANYA BID 06/30 2200 AC 07/13 TOP 2152 Warfarin Sodium 5 MG COUMADIN 1700 ONE 07/13 1700 NH 07/13 PO 07/13 1701 1800 Zinc Oxide 1 CHAITANYA BID 06/30 2200 07/13 TOP 2152 Assessment/Plan Assessment: 75 y/o M with PMHx of antiphospholipid antibody syndrome, diabetes and CKD who presented with SOB, hoarseness and stridor, found to be uremic with initiation of HD, s/p debridement of chronic left leg ulcer, on IV vancomycin for soft tissue infection, currently awaiting outpatient dialysis slot. Chest Pain: Resolved. On 07/09 patient had chest pain, ekg-no acute changes. Troponins elevated at 0.14. patient was transferred to telemetry floor for continuous cardiac monitoring, cardiology on board repeat troponin trended down. Chronic left lower extremity ulcer: Has chronic nonhealing ulcers of left leg for which he sees Dr. Pretty as outpatient. S/p excisional debridement through the subcutaneous and muscular tissue with reported seropurulent drainage (06/30) and OR cultures growing diphthteroids and coag-negative Staph. Although these are not typically pathogenic organisms, currently on IV vancomycin for possible soft tissue infection.Wound appears improved, however patient complains of severe pain concerning for ischemia. * ID following * Continue vancomycin per dialysis protocol * Vascular surgery consulted again. Appreciate further evaluation regarding the vascular supply of left leg. Antiphospholipid antibody syndrome: chronic right upper extremity DVT. On life- long anti-coagulation with warfarin, takes 5 mg PO QD. * Continue to check INR daily and dose warfarin accordingly to keep INR between 2-3. INR 2.19. Dose Warfarin 5 mg today. ESRD: Cr was 5 on admission, with gradual increase from 2-3 within the past year. Most likely etiology is progressive diabetic nephropathy. Mj cath was placed and urgent hemodialysis was initiated (06/26) with improvement of mental status. Patient is currently awaiting outpatient dialysis slot. * Nephrology following * Continue HD MW * No PICC lines should be inserted per Nephrology, as patient will need vein site for placement of graft. * Continue sevelamer 800 mg PO TIDAC. * Continue daily Nephrocaps T2DM: Uncontrolled blood sugars this admission, secondary to steroids. * Endocrinology following * Levemir 4U SQ DAILY * Continue NovoLog SSI TIDAC as suggested HTN: Takes amlodipine 10 mg PO QD, carvedilol 25 mg PO BID, furosemide 80 mg PO BID and hydralazine 50 mg PO BID at home. * Holding home amlodipine, furosemide and hydralazine. * Continue home carvedilol. Crohn's disease: Patient has been taking prednisone 10 mg PO QD for many years to prevent flares. * prednisone dose 7.5 mg daily. As per recommendations from GI. Start to taper for 5 weeks as tolerated. * Aspirin GI, the patient to remain on aspirin, Protonix needed to be added. * C diff was added to rule out C diff toxin infection. Blood cultures were sent. Diet: Renal Dialysis Diet (regular and nectar thick liquids) DVT PPx: Warfarin and ALPs CODE: FULL Problem List: 1. Crohns disease 2. Peripheral vascular disease 3. Type 2 diabetes mellitus Pain Ratin Pain Location: left lower extremity Pain Goal: Pain 4 or less Pain Plan: Percocet Tomorrow's Labs & Rationales: CBC, INR
--- NOTE | 2016-07-14 07:43 | NUR ---
NURSING NOTE: PT ORAL TEMP 100.5; PT APPEARS FLUSHED AND FEELS WARM TO TOUCH. PT MEDICATED WITH 2 PERCOCET PER EMAR. WILL MONITOR.
[2016-07-14 08:06] LABS: ABSOLUTE BASOPHIL COUNT 0 /CUMM (0.0-0.2); ABSOLUTE EOSINOPHIL COUNT 0.1 /CUMM (0.0-0.7); ABSOLUTE GRANULOCYTE CT 4.9 /CUMM (1.4-6.5); ABSOLUTE LYMPH COUNT 0.6 /CUMM (1.2-3.4); ABSOLUTE MONOCYTE COUNT 0.7 /CUMM (0.10-0.60); BASOPHIL % 0.6 % (0.0-2.0); GRANULOCYTE % 77.7 % (42.2-75.2); HEMATOCRIT 26.6 % (42-52); MEAN CORPUSCULAR HGB CONC 31.9 G/DL (33.0-37.0); MEAN PLATELET VOLUME 9.9 FL (7.4-10.4); PLATELET COUNT 154 /CUMM (130-400); RBC DISTRIBUTION WIDTH 19.1 % (11.5-14.5); RED BLOOD CELL CT 2.93 /CUMM (4.70-6.10); WHITE BLOOD CELL COUNT 6.3 /CUMM (4.8-10.8)
[2016-07-14 08:19] LABS: PT 22.8 SEC (9.4-12.5)
[2016-07-14 08:20] VITALS: BP 120/60
--- NOTE | 2016-07-14 09:01 | NUR ---
NURSING NOTE:NURSING NOTE: TEMP 100.5 AT 0700AM; MEDICATED WITH PERCOCET 2 TABS AT 0745AM BY NIGHT RN, 0800AM RECHECK 99.9, TEMP AT THIS TIME 98.9. PT AWAKE, A/FORGETFUL, ABLE TO EAT SOME BREAKFAST AND TAKE MEDS. STILL WITH NON PRODUCTIVE COUGH. STUDENT TEACHER ERMELINDA MADE AWARE. CONT TO MONITOR. BED ALARM IN PLACE. DSG TO NONHEALING L LEG ULCER CHANGED WITH DAIKINS/GAUZE. CONT TO MONITOR, BLE ELEAVTED ON PILLOWS. CREAM APPLIED TO BOTTOM.
--- NOTE | 2016-07-14 09:59 | PN- Infect Dx ---
Subjective Subjective: MAXIMUM TEMPERATURE 100.5, with a temp to 101.7 overnight July 13. He continues to complain of pain in the left calf. He does not report chest pain. He also reports diarrhea, with loose, brown, guaiac positive stools reported. Objective Last 24 Hrs of Vital Signs/I&O Vital Signs Date Time Temp Pulse Resp B/P Pulse O2 O2 Flow FiO2 Ox Delivery Rate 07/14 0910 98.9 07/14 0853 98 128/78 07/14 0820 99.9 103 20 120/60 94 Room Air 07/14 0659 100.5 07/14 0000 97.9 84 20 120/56 95 07/13 2152 90 116/62 07/13 2141 95 Room Air 07/13 1620 98.0 95 19 114/58 93 Intake & Output 07/14 1600 07/14 0800 07/14 0000 Intake Total 240 100 Output Total Balance 240 100 Intake, Oral 240 100 Number 2 1 Bowel Movements Patient 157 lb Weight Physical Exam Other Physical Findings: He appears weak but in no acute distress Chest tunneled catheter in the right upper chest with no inflammation at the site Lungs bibasilar crackles Heart regular rhythm with no murmur Abdomen is soft, nontender with positive bowel sounds Extremities left calf necrotic wound unchanged, with no surrounding erythema; right upper extremity edema compared to the left upper extremity Results Last 24 Hours of Lab Results: Laboratory Tests 07/14 0630 Chemistry Sodium (137 - 145 mmol/L) 137 Potassium (3.5 - 5.1 mmol/L) 4.2 Chloride (98 - 107 mmol/L) 102 Carbon Dioxide (22 - 30 mmol/L) 25 Anion Gap (5 - 16) 10 BUN (9 - 20 mg/dL) 34 H Creatinine (0.7 - 1.2 mg/dL) 3.3 H Estimated GFR (>60 ml/min) 18 L BUN/Creatinine Ratio (7 - 25 %) 10.3 Coagulation PT (9.4 - 12.5 SEC) 22.8 H INR (0.90 - 1.17) 2.19 H Hematology CBC w Diff NO MAN DIFF REQ WBC (4.8 - 10.8 /CUMM) 6.3 RBC (4.70 - 6.10 /CUMM) 2.93 L Hgb (14.0 - 18.0 G/DL) 8.5 L Hct (42 - 52 %) 26.6 L MCV (80.0 - 94.0 FL) 91.0 MCH (27.0 - 31.0 PG) 29.0 RDW (11.5 - 14.5 %) 19.1 H Plt Count (130 - 400 /CUMM) 154 MPV (7.4 - 10.4 FL) 9.9 Gran % (42.2 - 75.2 %) 77.7 H Lymphocytes % (20.5 - 51.1 %) 9.2 L Monocytes % (1.7 - 9.3 %) 10.5 H Eosinophils % (0 - 5 %) 2.0 Basophils % (0.0 - 2.0 %) 0.6 Absolute Granulocytes (1.4 - 6.5 /CUMM) 4.9 Absolute Lymphocytes (1.2 - 3.4 /CUMM) 0.6 L Absolute Monocytes (0.10 - 0.60 /CUMM) 0.7 H Absolute Eosinophils (0.0 - 0.7 /CUMM) 0.1 Absolute Basophils (0.0 - 0.2 /CUMM) 0 PUBS MCHC (33.0 - 37.0 G/DL) 31.9 L Last 24 Hours of Avtar Results: No recent cultures Assessment/Plan Impression: Recent fevers of concern with several possible sources including the lungs, with bibasilar crackles, though his respiratory status is unchanged, the dialysis catheter, though there is no obvious overlying inflammation, the left leg necrotic lesion, though its appearance has not changed, and C. difficile, with guaiac positive loose stools reported, though this may be secondary to his underlying Crohn's disease. A noninfectious process, such as a DVT of the right upper extremity, given the swelling in the presence of a right IJ catheter, is possible, though he is on Coumadin. He remains on Vancomycin, now 13 days status post excisional debridement of the left leg necrotic wound, for concern of a secondary infection, with OR cultures positive for coag-negative Staph and diphtheroids. His left leg pain persists and is most suggestive of ischemia, though a recent outpatient angiogram was apparently negative per Vascular surgery. Suggestion: 1. Blood cultures 2 2. Straight cath for urine culture 3. Repeat chest x-ray 4. Stool for C. difficile 5. Consider Doppler of the right upper extremity 6. Would hold on further antibiotics pending above
--- NOTE | 2016-07-14 12:10 | NUR ---
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
--- NOTE | 2016-07-14 12:59 | PN- Diabetes ---
Assessment/Plan Assessment: The patient is out of the intensive care unit. He is on dialysis. Levemir was decreased to 4 units daily. His prednisone has been decreased to 5 mg once a day in the morning. He is on sliding scale NovoLog before meals starting with 3 units for 80-150. His FSGs were 117, 259, 156, 226 112 and 140. Plan: continue the current insulin regimen for now; monitor FSGs; will follow. Subjective Subjective: He feels okay. Objective Last 24 Hrs of Vital Signs/I&O Vital Signs Date Time Temp Pulse Resp B/P Pulse O2 O2 Flow FiO2 Ox Delivery Rate 07/14 0910 98.9 07/14 0853 98 128/78 07/14 0820 99.9 103 20 120/60 94 Room Air 07/14 0800 92 Room Air 07/14 0659 100.5 07/14 0000 97.9 84 20 120/56 95 07/13 2152 90 116/62 07/13 2141 95 Room Air 07/13 1620 98.0 95 19 114/58 93 Intake & Output 07/14 1600 07/14 0800 07/14 0000 Intake Total 240 100 Output Total Balance 240 100 Intake, Oral 240 100 Number 2 1 Bowel Movements Patient 157 lb Weight Findings Pertinent Lab/Avtar Results: Laboratory Tests 07/14 0630 Chemistry Sodium (137 - 145 mmol/L) 137 Potassium (3.5 - 5.1 mmol/L) 4.2 Chloride (98 - 107 mmol/L) 102 Carbon Dioxide (22 - 30 mmol/L) 25 Anion Gap (5 - 16) 10 BUN (9 - 20 mg/dL) 34 H Creatinine (0.7 - 1.2 mg/dL) 3.3 H Estimated GFR (>60 ml/min) 18 L BUN/Creatinine Ratio (7 - 25 %) 10.3 Coagulation PT (9.4 - 12.5 SEC) 22.8 H INR (0.90 - 1.17) 2.19 H Hematology CBC w Diff NO MAN DIFF REQ WBC (4.8 - 10.8 /CUMM) 6.3 RBC (4.70 - 6.10 /CUMM) 2.93 L Hgb (14.0 - 18.0 G/DL) 8.5 L Hct (42 - 52 %) 26.6 L MCV (80.0 - 94.0 FL) 91.0 MCH (27.0 - 31.0 PG) 29.0 RDW (11.5 - 14.5 %) 19.1 H Plt Count (130 - 400 /CUMM) 154 MPV (7.4 - 10.4 FL) 9.9 Gran % (42.2 - 75.2 %) 77.7 H Lymphocytes % (20.5 - 51.1 %) 9.2 L Monocytes % (1.7 - 9.3 %) 10.5 H Eosinophils % (0 - 5 %) 2.0 Basophils % (0.0 - 2.0 %) 0.6 Absolute Granulocytes (1.4 - 6.5 /CUMM) 4.9 Absolute Lymphocytes (1.2 - 3.4 /CUMM) 0.6 L Absolute Monocytes (0.10 - 0.60 /CUMM) 0.7 H Absolute Eosinophils (0.0 - 0.7 /CUMM) 0.1 Absolute Basophils (0.0 - 0.2 /CUMM) 0 PUBS MCHC (33.0 - 37.0 G/DL) 31.9 L
--- NOTE | 2016-07-14 15:06 | PN- Att Addend ---
Attending Addendum Attending Brief Note Pt seen and examined at bedside. Pt discussed with the resident. Subjectively- generalized weakness. Left calf pain. Loose BMs Exam- left leg necrotic wound with dressing on it. Abdomen is soft and non tender, Catheter site in chest looks ok with no drainage. Vitas reviewed- pt had fever for last 2 days. Labs reviewed A/p Fever of unclear etiology- given the pt has had 3 BM/day for last 3 days, will send c diff and will also get blood culture, UA/ UCx and will also get cxr. will get doppler of the RUE to r/o dvt. will f/u on ID recommendations. ESRD on HD- has slot for outpt dialysis at [facility] for friday. Disposition- needs workup for fever. Plan is to dc to [facility] once stable.
[2016-07-14 16:05] VITALS: BP 130/70
[2016-07-14 16:07] VITALS: BP 110/56
--- NOTE | 2016-07-14 17:09 | NUR ---
NURSING NOTE; PT HAS STAT BLOOD CULTURES ORDERED BUT IS IN ULTRASOUND. NIC #[id number] NOTIFIED AND AWARE. WILL DRAW BLOOD CULTURES WHEN PT COMES BACK TO FLOOR. WILL CONTINUE TO MONITOR
--- NOTE | 2016-07-14 17:23 | ULTRASOUND REPORT ---
EXAMINATION: US TRIPLEX LOWER EXTREMITY, RIGHT CLINICAL INFORMATION: Right lower extremity pain COMPARISON: Right lower extremity Doppler ultrasound from 05/21/2012 images cannot be obtained at the time of dictation. TECHNIQUE: Color-flow triplex imaging with spectral analysis and compression Doppler were performed on the right lower extremity. FINDINGS: There is chronic partially occlusive thrombus extending from the proximal right femoral vein to the popliteal vein. These veins are noncompressible. The remaining veins of the right lower extremity demonstrate normal color Doppler fill in and compression without evidence of additional venous thrombosis. The study is limited by patient mobility. There is edema in the knee/calf region. IMPRESSION: There is chronic partially occlusive deep venous thrombosis extending from the proximal right femoral vein to the popliteal vein. The referring provider has been paged and once reached an addendum will be made.
--- NOTE | 2016-07-14 17:45 | RADIOLOGY REPORT ---
EXAMINATION: XR CHEST CLINICAL INFORMATION: Cough. Evaluate for pneumonia. COMPARISON: Multiple priors, most recent chest radiograph dated 06/28/2016. TECHNIQUE: PA and lateral views of the chest were obtained. FINDINGS: There is mild increase in prominence of patchy right mid lung airspace opacities. There is interval decrease in prominence of patchy left lower lobe airspace opacities. There is no pleural effusion or pneumothorax. The cardiomediastinal silhouette is unchanged. A large bore right-sided central venous catheter is redemonstrated in unchanged position. IMPRESSION: Increased prominence of patchy right mid lung airspace opacities as well as decrease in prominence of patchy left lower lobe airspace opacities.
--- NOTE | 2016-07-14 18:22 | NUR ---
NURSING NOTE; MULTIPLE ATTEMPTS HAVE BEEN MADE TO DRAW STAT BLOOD CULTURES ON THIS PT. THIS RN CALLED NIC #[id number] TO NOTIFY HER. BOILING OFF WINDER #[id number] AWARE OF SITUATION. THIS RN CALLED ICU TO COME AND DRAW CULTURES. BOILING OFF WINDER ALSO AWARE. WILL CONTINUE TO MONITOR.
[2016-07-15 00:11] VITALS: BP 150/74
--- NOTE | 2016-07-15 02:25 | NUR ---
07/14/[address] GREGG TO COME AND EVALUATE THE PT. PT TEMP 103.1 AND HR 114-SEE OTHER VSIGNS. PT EYES OPENING WITH VERBAL COMMAND BUT PT DROWSY. MINIMAL VERBAL RESPONSE AT THIS TIME. 2335 DR GREGG IN ROOM TO EVALUATE THE PT. SEE ORDERS. 0010 IV ACCESS STARTED AT THIS TIME. SEE EMAR FOR TYLENOL IV ORDERED.
[2016-07-15 04:58] VITALS: BP 98/44
--- NOTE | 2016-07-15 05:20 | Event Note ---
Event Note Event Note: Patient developed febrile episode, Tmax 103.1. Remaining vitals stable, slightly more confused. Ordered tylenol and cooling blankets. He had blood cultures and urine cultures collected earlier this evening. CXR concerning for developing pneumonia. This could be aspiration pna vs hcap h/o long hospitalization. He is getting vancomycin, last dose on 07/12/16 dosed with HD. Level 12. At this time due to his clinical picture we will treat for hcap. Will give one dose of abx at this time and discuss with Infectious Disease. Will place him npo pending a swallow evaluation, and provide gentle hydration.
--- NOTE | 2016-07-15 07:38 | PN- Housestaff ---
ESTELA HEATH,[facility] 07/15/16 0738: Subjective Follow-up For: Chronic ulcer of the left leg Subjective: pt seen and examined, he was drowsy and confused and was not answering most of auestions appropiately. overnight spiked a fever of 103F. other vitals stable. Review of Systems Constitutional: Reports: see HPI. Objective Last 24 Hrs of Vital Signs/I&O Vital Signs Date Time Temp Pulse Resp B/P Pulse O2 O2 Flow FiO2 Ox Delivery Rate 07/15 1618 101.0 96 22 117/70 92 07/15 1530 60 128/60 07/15 1430 60 128/60 07/15 1430 60 428/60 07/15 0826 100.8 88 18 100/54 96 Room Air 07/15 0458 98.1 88 20 98/44 93 07/15 0110 100.8 07/15 0110 100.8 07/15 0015 103.1 07/15 0011 103.1 114 20 150/74 94 07/15 0000 94 Room Air Room Air 07/14 2200 102 110/56 Intake & Output 07/15 1600 07/15 0800 07/15 0000 Intake Total 270 50 Output Total 100 Balance 170 50 Intake, IV 270 Intake, Oral 0 50 Number 1 Bowel Movements Output, Urine 100 Patient 71.327 kg Weight Physical Exam General Appearance: drowsy and confused Cardiovascular: Regular Rate, Normal S1, Normal S2, No Murmurs Lungs: Clear to Auscultation, Normal Air Movement Abdomen: Normal Bowel Sounds, Soft, No Tenderness Extremities: No Clubbing, No Cyanosis, No Edema Current Medications: Current Medications Sig/Kailash Start time Last Medication Dose Route Stop Time Status Admin Acetaminophen 1,000 MG ONCE ONE 07/14 2345 DC 07/15 N/A 1 UNIT IV 07/14 2359 0015 Acetaminophen 500 MG Q6P PRN 07/02 0815 AC 07/08 PO 1102 Aspirin 81 MG DAILY 07/01 1000 AC 07/15 PO 1430 Atorvastatin Calcium 40 MG 1700 06/30 1700 AC 07/15 PO 1800 Carvedilol 25 MG BID 06/30 2200 AC 07/15 PO 1530 Ceftazidime 1,000 MG ONCE ONE 07/15 1415 DC 07/15 IV 07/15 1416 1600 Ceftazidime 1,000 MG ONCE ONE 07/15 0145 DC 07/15 IV 07/15 0146 0236 Diphenoxylate HCl/ 2.5 MG TID PRN 07/08 0100 DC 07/13 Atropine PO 1240 Epoetin Ludwig 3,000 UNIT MoWeFr PRN 07/08 1200 AC IV Epoetin Ludwig 2,000 UNIT MoWeFr PRN 07/08 1200 AC IV Insulin Aspart 0 TIDAC/HS 06/30 2100 AC 07/15 SC 1800 Insulin Detemir 4 UNITS DAILY 07/11 1000 AC 07/15 SC 1520 Iron Sucrose 100 MG PER PROTOCL PRN 07/01 1430 AC 07/03 Sodium Chloride 100 ML IV 1221 Isosorbide 30 MG DAILY 07/09 1056 AC 07/15 Mononitrate PO 1430 Multivitamins 1 TAB DAILY 07/01 1000 AC 07/15 PO 1520 Omeprazole 40 MG DAILY AC 07/14 0700 AC 07/14 PO 0604 Oxycodone/ 2 TAB Q6P PRN 07/11 2230 AC 07/15 Acetaminophen PO 1536 Patient Medication 1 ED .STK-MED ONE 07/15 1355 DC Teaching ED 07/15 1356 Prednisone 7.5 MG DAILY 07/14 1000 AC 07/15 PO 1521 Sevelamer Carbonate 800 MG WITH MEALS 06/30 1200 AC 07/15 PO 1800 Sodium Chloride 1,000 ML Q20H 07/15 0515 AC 07/15 IV 0545 Sodium Chloride 2 SPRAY Q10MIN PRN 07/12 0230 AC CARLITOS Sodium Hypochlorite 1 CHAITANYA BID 07/05 1113 AC 07/15 TOP 1430 Tamsulosin HCl 0.4 MG DAILY 07/01 1000 AC 07/15 PO 1430 Vancomycin HCl 250 MG ONCE ONE 07/15 1430 DC 07/15 Sodium Chloride 100 ML IV 07/15 1459 1524 Vancomycin HCl 1 MG Q24 PRN 07/15 1415 AC Sodium Chloride 1 ML IV Vancomycin HCl 1 MG Q24 PRN 07/15 0845 DC Sodium Chloride 1 ML IV Vancomycin HCl 1,000 MG ONCE ONE 07/15 0145 DC 07/15 Sodium Chloride 250 ML IV 07/15 0244 0240 Vitamin A/Vitamin D 1 CHAITANYA BID 06/30 2200 AC 07/15 TOP 1430 Warfarin Sodium 5 MG COUMADIN 1700 ONE 07/15 1700 CAN PO 07/15 1701 Zinc Oxide 1 CHAITANYA BID 06/30 2200 AC 07/15 TOP 1430 Last 24 Hrs of Lab/Avtar Results Last 24 Hrs of Labs/Mics: Laboratory Tests 07/15/16 0930: Anion Gap 10, Estimated GFR 15 L, BUN/Creatinine Ratio 10.5, PT 38.2 H, INR 3.69 H, CBC w Diff NO MAN DIFF REQ, RBC 2.71 L, MCV 90.0, MCH 28.6, RDW 19.0 H, MPV 10.5 H, Gran % 76.9 H, Lymphocytes % 8.9 L, Monocytes % 11.9 H, Eosinophils % 1.9, Basophils % 0.4, Absolute Granulocytes 4.9, Absolute Lymphocytes 0.6 L, Absolute Monocytes 0.8 H, Absolute Eosinophils 0.1, Absolute Basophils 0, PUBS MCHC 31.8 L, Random Vancomycin 20.3 07/15/16 0030: Urine Color YEL, Urine Clarity TURBD H, Urine pH 6.0, Ur Specific [place] 1.025 , Urine Protein 100 H, Urine Ketones NEG, Urine Nitrite NEG, Urine Bilirubin NEG, Urine Urobilinogen 0.2, Ur Leukocyte Esterase LARGE H, Ur Microscopic SEDIMENT EXAMINED, Urine WBC PACKD H, Urine Hemoglobin LARGE H, Urine Glucose 100 H Microbiology 07/15 0500 STOOL: Clostridium difficile Toxin A & B - COMP 07/15 003 URINE ROUT: Urine Culture - RECD Assessment/Plan Assessment: 75 y/o M with PMHx of antiphospholipid antibody syndrome, diabetes and CKD who presented with SOB, hoarseness and stridor, found to be uremic with initiation of HD, s/p debridement of chronic left leg ulcer, on IV vancomycin for soft tissue infection, currently awaiting outpatient dialysis slot. Pneumonia: Likely aspiration PNA, CXR showed rt middle lobe opacity Currently on Ceftazidime and vancomycin for anaerobic and gram negative coverage overnight fever spike to 103, will continue to monitor ID following, will follow recs Chest Pain: Resolved. On 07/09 patient had chest pain, ekg-no acute changes. Troponins elevated at 0.14. patient was transferred to telemetry floor for continuous cardiac monitoring, cardiology on board repeat troponin trended down. Chronic left lower extremity ulcer: Has chronic nonhealing ulcers of left leg for which he sees Dr. Pretty as outpatient. S/p excisional debridement through the subcutaneous and muscular tissue with reported seropurulent drainage (06/30) and OR cultures growing diphthteroids and coag-negative Staph. Although these are not typically pathogenic organisms, currently on IV vancomycin for possible soft tissue infection.Wound appears improved, however patient complains of severe pain concerning for ischemia. * ID following * Continue vancomycin per dialysis protocol * Vascular surgery consulted again. Appreciate further evaluation regarding the vascular supply of left leg. Antiphospholipid antibody syndrome: chronic right upper extremity DVT. On life- long anti-coagulation with warfarin, takes 5 mg PO QD. * Continue to check INR daily and dose warfarin accordingly to keep INR between 2-3. INR supra therapeutic, once therapeutic will dose at 2.5mg daily. ESRD: Cr was 5 on admission, with gradual increase from 2-3 within the past year. Most likely etiology is progressive diabetic nephropathy. Mj cath was placed and urgent hemodialysis was initiated (06/26) with improvement of mental status. Patient is currently awaiting outpatient dialysis slot. * Nephrology following * Continue HD MW * No PICC lines should be inserted per Nephrology, as patient will need vein site for placement of graft. * Continue sevelamer 800 mg PO TIDAC. * Continue daily Nephrocaps T2DM: Uncontrolled blood sugars this admission, secondary to steroids. * Endocrinology following * Levemir 4U SQ DAILY * Continue NovoLog SSI TIDAC as suggested HTN: Takes amlodipine 10 mg PO QD, carvedilol 25 mg PO BID, furosemide 80 mg PO BID and hydralazine 50 mg PO BID at home. * Holding home amlodipine, furosemide and hydralazine. * Continue home carvedilol. Crohn's disease: Patient has been taking prednisone 10 mg PO QD for many years to prevent flares. * prednisone dose 7.5 mg daily. As per recommendations from GI. Start to taper for 5 weeks as tolerated. * Aspirin GI, the patient to remain on aspirin, Protonix needed to be added. * C diff was added to rule out C diff toxin infection. Blood cultures were sent. Diet: Renal Dialysis Diet (regular and nectar thick liquids) DVT PPx: Warfarin and ALPs CODE: FULL Problem List: 1. CKD (chronic kidney disease) 2. Diabetes mellitus 3. Swelling of right upper extremity 4. Crohn disease 5. DVT prophylaxis 6. Full code status 7. Antiphospholipid antibody syndrome 8. Left leg cellulitis 9. Peripheral vascular disease 10. Pneumonia Pain Ratin Pain Location: left lower ext Pain Goal: Remain pain free Pain Plan: see A/P Tomorrow's Labs & Rationales: INR CBC ARTURO HEATH,HARRY 07/15/16 1621: Attending MD Review Statement Attending Statement Attending MD Statement: examined this patient, discuss w/resident/PA/BUILDING RIGGER, agreed w/resident/PA/BUILDING RIGGER, discussed with family, reviewed EMR data (avail), discussed with nursing, discussed with case mgmt, amended to note Attending Assessment/Plan: Patient seen and examined. Nursing staff reports pain during dialysis. Also reports periods of confusion on and off. Patient is alert and oriented 3. Reports pain in his lower extremity. Denies nausea vomiting. Denies abdominal pain. Tolerating diet. Recommendations: -GI follow-up appreciated. His systemic steroid therapy will be weaned down slowly. Those has been changed to 7.5 mg daily. In 2 weeks ago be decreased further to 5 mg daily. Lomotil has been started for diarrhea. Further management of his Crohn's disease will be done in the outpatient setting. He does not complain of abdominal pain or have abdominal tenderness to suggest a flareup of his Crohn's disease as cause of his fever. -Patient continues to require analgetic medication for his lower extremity pain. He is analgesia is likely contributing to his waxing and waning mental status. Follow-up with vascular surgery service regarding any further interventions for his vasculopathy. -Patient continues to be febrile with a temperature 101 this afternoon. Repeat blood cultures are currently negative. Evolving infiltrate on his chest x-ray raises concern for aspiration. He has been started on cefazolin to cover anaerobes and hospital-acquired gram-negative pathogens. Continue vancomycin per recommendations of the ID service. 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 Continue anticoagulation with Coumadin. His INR is once again supratherapeutic likely due to interaction with his antibiotics. Recommend decreasing Coumadin to 2.5 mg daily after initially holding and once his INR becomes therapeutic.
--- NOTE | 2016-07-15 08:13 | NUR ---
0130 DR Lucia MARTINEZ IN TO EVAL THE PT. PT IS MORE ALERT/VERBAL AT THIS TIME. TEMP 100.8. SEE NEW ORDERS.
[2016-07-15 08:26] VITALS: BP 100/54
--- NOTE | 2016-07-15 08:36 | PN- Diabetes ---
Assessment/Plan Assessment: The patient is out of the intensive care unit. He is on dialysis. Levemir was decreased to 4 units daily. His prednisone has been decreased to 5 mg once a day in the morning. He is on sliding scale NovoLog before meals starting with 3 units for 80-150. the patient's fingerstick blood sugars yesterday were good. They were 112 before breakfast, 140 before lunch, 175 before dinner, and 195 at bedtime. Unfortunately the patient spiked a fever to 103.1. He is lethargic this morning. Plan: Suggest continue the present insulin. The patient needs to be reevaluated for source of fever which could be related to his dialysis catheter or other IV access or a urinary tract infection.. Oscar Harden MD needs to see the patient again. Subjective Subjective: patient is lethargic Objective Last 24 Hrs of Vital Signs/I&O Vital Signs Date Time Temp Pulse Resp B/P Pulse O2 O2 Flow FiO2 Ox Delivery Rate 07/15 0826 100.8 88 18 100/54 96 Room Air 07/158 98.1 88 20 98/44 93 07/15 0110 100.8 07/15 0110 100.8 07/15 0015 103.1 07/15 0011 103.1 114 20 150/74 94 07/15 0000 94 Room Air Room Air 07/14 2200 102 110/56 07/14 1607 97.7 102 20 110/56 91 07/14 0910 98.9 07/14 0853 98 128/78 Intake & Output 07/15 1600 07/15 0800 07/15 0000 Intake Total 270 50 Output Total 100 Balance 170 50 Intake, IV 270 Intake, Oral 0 50 Number 1 Bowel Movements Output, Urine 100 Patient 157 lb Weight Vital Signs Date Time Temp Pulse Resp B/P Pulse O2 O2 Flow FiO2 Ox Delivery Rate 07/15 0826 100.8 88 18 100/54 96 Room Air 07/15 0458 98.1 88 20 98/44 93 07/15 0110 100.8 07/15 0110 100.8 07/15 0015 103.1 07/15 0011 103.1 114 20 150/74 94 07/15 0000 94 Room Air Room Air 07/140 102 110/56 07/14 1607 97.7 102 20 110/56 91 07/14 0910 98.9 07/14 0853 98 128/78 Intake & Output 07/15 1600 07/15 0800 07/15 0000 Intake Total 270 50 Output Total 100 Balance 170 50 Intake, IV 270 Intake, Oral 0 50 Number 1 Bowel Movements Output, Urine 100 Patient 157 lb Weight Physical Exam General Appearance: lethargic Current Medications: Current Medications Sig/Kailash Start time Last Medication Dose Route Stop Time Status Admin Acetaminophen 1,000 MG ONCE ONE 07/14 2345 DC 07/15 N/A 1 UNIT IV 07/14 2359 0015 Acetaminophen 500 MG Q6P PRN 07/02 0815 AC 07/08 PO 1102 Aspirin 81 MG DAILY 07/01 1000 AC 07/14 PO 0854 Atorvastatin Calcium 40 MG 1700 06/30 1700 AC 07/14 PO 1803 Carvedilol 25 MG BID 06/30 2200 AC 07/14 PO 2200 Ceftazidime 1,000 MG ONCE ONE 07/15 0145 DC 07/15 IV 07/15 0146 0236 Diphenoxylate HCl/ 2.5 MG TID PRN 07/08 0100 DC 07/13 Atropine PO 1240 Epoetin Ludwig 3,000 UNIT MoWeFr PRN 07/08 1200 AC IV Epoetin Ludwig 2,000 UNIT MoWeFr PRN 07/08 1200 AC IV Insulin Aspart 0 TIDAC/HS 06/30 2100 AC 07/14 SC 1804 Insulin Detemir 4 UNITS DAILY 07/11 1000 AC 07/14 SC 0908 Iron Sucrose 100 MG PER PROTOCL PRN 07/01 1430 AC 07/03 Sodium Chloride 100 ML IV 1221 Isosorbide 30 MG DAILY 07/09 1056 AC 07/14 Mononitrate PO 0853 Multivitamins 1 TAB DAILY 07/01 1000 AC 07/14 PO 0853 Omeprazole 40 MG DAILY AC 07/14 0700 AC 07/14 PO 0604 Oxycodone/ 2 TAB Q6P PRN 07/11 2230 AC 07/14 Acetaminophen PO 1206 Prednisone 7.5 MG DAILY 07/14 1000 AC 07/14 PO 0853 Sevelamer Carbonate 800 MG WITH MEALS 06/30 1200 AC 07/14 PO 1804 Sodium Chloride 1,000 ML Q20H 07/15 0515 AC 07/15 IV 0545 Sodium Chloride 2 SPRAY Q10MIN PRN 07/12 0230 AC CARLITOS Sodium Hypochlorite 1 CHAITANYA BID 07/05 1113 AC 07/14 TOP 0855 Tamsulosin HCl 0.4 MG DAILY 07/01 1000 AC 07/14 PO 0853 Vancomycin HCl 1,000 MG ONCE ONE 07/15 0845 UNVr Sodium Chloride 250 ML IV 07/15 0944 Vancomycin HCl 1,000 MG ONCE ONE 07/15 0145 DC 07/15 Sodium Chloride 250 ML IV 07/15 0244 0240 Vitamin A/Vitamin D 1 CHAITANYA BID 06/30 2200 AC 07/14 TOP 2200 Warfarin Sodium 5 MG COUMADIN 1700 ONE 07/14 1700 DC 07/14 PO 07/14 1701 1803 Zinc Oxide 1 CHAITANYA BID 06/30 2200 AC 07/14 TOP 2201 Findings Pertinent Lab/Avtar Results: Laboratory Tests 07/15 0030 Urines Urine Color (YEL,AMB,STR) YEL Urine Clarity (CLEAR) TURBD H Urine pH (5.0 - 8.0) 6.0 Ur Specific [place] (1.001 - 1.035) 1.025 Urine Protein (NEG,<30 MG/DL) 100 H Urine Ketones (NEG) NEG Urine Nitrite (NEG) NEG Urine Bilirubin (NEG) NEG Urine Urobilinogen (0.1 - 1.0 EU/dl) 0.2 Ur Leukocyte Esterase (NEG) LARGE H Ur Microscopic SEDIMENT EXAMINED Urine WBC (0 - 2 /HPF) PACKD H Urine Hemoglobin (NEG) LARGE H Urine Glucose (N MG/DL) 100 H
[2016-07-15 11:02] LABS: ABSOLUTE BASOPHIL COUNT 0 /CUMM (0.0-0.2); ABSOLUTE EOSINOPHIL COUNT 0.1 /CUMM (0.0-0.7); ABSOLUTE GRANULOCYTE CT 4.9 /CUMM (1.4-6.5); ABSOLUTE LYMPH COUNT 0.6 /CUMM (1.2-3.4); ABSOLUTE MONOCYTE COUNT 0.8 /CUMM (0.10-0.60); BASOPHIL % 0.4 % (0.0-2.0); EOSINOPHIL % 1.9 % (0-5); GRANULOCYTE % 76.9 % (42.2-75.2); HEMATOCRIT 24.4 % (42-52); MEAN CORPUSCULAR HGB 28.6 PG (27.0-31.0); MEAN CORPUSCULAR HGB CONC 31.8 G/DL (33.0-37.0); MEAN PLATELET VOLUME 10.5 FL (7.4-10.4); PLATELET COUNT 160 /CUMM (130-400); RED BLOOD CELL CT 2.71 /CUMM (4.70-6.10); WHITE BLOOD CELL COUNT 6.4 /CUMM (4.8-10.8)
[2016-07-15 11:16] LABS: PT 38.2 SEC (9.4-12.5)
--- NOTE | 2016-07-15 13:03 | PN- Nephrology ---
Assessment/Plan Assessment: 1. ESRD likely secondary to diabetic nephropathy 2. Recurrent fevers - suspect source is his left leg; other possibilities include his indwelling dialysis catheter and the GI tract i.e. C. difficile. Of concern is that his blood pressures are relatively low suggesting the possibility of sepsis; blood cultures show no growth thus far. 3. Diabetes mellitus with peripheral vascular disease status post right TMA, status post debridement left leg/ankle ulcer 4. Antiphospholipid antibody syndrome status post DVT Suggestion: 1. Hemodialysis today in progress with no ultrafiltration over 3.25 hours; next hemodialysis for Tuesday 07/17 2. Antibiotic therapy per ID Subjective Subjective: Patient has been running intermittent fevers with relatively low blood pressures. Tmax 103.1 yesterday, 100.8 today. Systolic blood pressure currently 98-100. Also having loose stools. C. difficile pending as are blood culture results. Chemistries are acceptable, WBC within normal limits at 6.4. Objective Vital Signs and I&Os Vital Signs Date Time Temp Pulse Resp B/P Pulse O2 O2 Flow FiO2 Ox Delivery Rate 07/15 0826 100.8 88 18 100/54 96 Room Air 07/15 0458 98.1 88 20 98/44 93 07/15 0110 100.8 07/15 0110 100.8 07/15 0015 103.1 07/15 0011 103.1 114 20 150/74 94 07/15 0000 94 Room Air Room Air 07/14 2200 102 110/56 07/14 1607 97.7 102 20 110/56 91 Intake & Output 07/15 1600 07/15 0400 07/14 1600 07/14 0400 07/13 1600 07/13 0400 Intake Total 377 34 3540 100 930 750 Output Total 100 200 400 Balance 270 -50 850 100 530 750 Intake, IV 270 10 10 250 Intake, Oral 0 50 1040 100 920 500 Number 1 3 1 2 Bowel Movements Output, Urine 100 200 400 Patient 157 lb 157 lb 157 lb Weight Physical Exam: General: Well-developed white male in NAD Skin: No rash or jaundice HEENT: Conjunctivae pink, sclerae anicteric, mucous membranes moist Neck: Without masses or thyromegaly, no supraclavicular or cervical adenopathy; there is a right IJ tunneled dialysis catheter in place Chest: Scattered rhonchi Heart: Regular rate and rhythm without S3 or rub Abdomen: Soft and nontender without palpable masses or organomegaly Extremities: Lower extremity dressing intact, trace-1+ edema on left Neuro: No focal findings, no asterixis or myoclonus Current Medications: Current Medications Sig/Kailash Start time Last Medication Dose Route Stop Time Status Admin Acetaminophen 1,000 MG ONCE ONE 07/14 2345 DC 07/15 N/A 1 UNIT IV 07/14 2359 0015 Acetaminophen 500 MG Q6P PRN 07/02 0815 AC 07/08 PO 1102 Aspirin 81 MG DAILY 07/01 1000 AC 07/14 PO 0854 Atorvastatin Calcium 40 MG 1700 06/30 1700 AC 07/14 PO 1803 Carvedilol 25 MG BID 06/30 2200 AC 07/14 PO 2200 Ceftazidime 1,000 MG ONCE ONE 07/15 0145 DC 07/15 IV 07/15 0146 0236 Diphenoxylate HCl/ 2.5 MG TID PRN 07/08 0100 DC 07/13 Atropine PO 1240 Epoetin Ludwig 3,000 UNIT MoWeFr PRN 07/08 1200 AC IV Epoetin Ludwig 2,000 UNIT MoWeFr PRN 07/08 1200 AC IV Insulin Aspart 0 TIDAC/HS 06/30 2100 AC 07/14 SC 1804 Insulin Detemir 4 UNITS DAILY 07/11 1000 AC 07/14 SC 0908 Iron Sucrose 100 MG PER PROTOCL PRN 07/01 1430 AC 07/03 Sodium Chloride 100 ML IV 1221 Isosorbide 30 MG DAILY 07/09 1056 AC 07/14 Mononitrate PO 0853 Multivitamins 1 TAB DAILY 07/01 1000 AC 07/14 PO 0853 Omeprazole 40 MG DAILY AC 07/14 0700 AC 07/14 PO 0604 Oxycodone/ 2 TAB Q6P PRN 07/11 2230 AC 07/15 Acetaminophen PO 0956 Prednisone 7.5 MG DAILY 07/14 1000 AC 07/14 PO 0853 Sevelamer Carbonate 800 MG WITH MEALS 06/30 1200 AC 07/14 PO 1804 Sodium Chloride 1,000 ML Q20H 07/15 0515 AC 07/15 IV 0545 Sodium Chloride 2 SPRAY Q10MIN PRN 07/12 0230 AC CARLITOS Sodium Hypochlorite 1 CHAITANYA BID 07/05 1113 AC 07/14 TOP 0855 Tamsulosin HCl 0.4 MG DAILY 07/01 1000 AC 07/14 PO 0853 Vancomycin HCl 1 MG Q24 PRN 07/15 0845 DC Sodium Chloride 1 ML IV Vancomycin HCl 1,000 MG ONCE ONE 07/15 0145 DC 07/15 Sodium Chloride 250 ML IV 07/15 0244 0240 Vitamin A/Vitamin D 1 CHAITANYA BID 06/30 220 AC 07/14 TOP 2200 Warfarin Sodium 5 MG COUMADIN 1700 ONE 07/15 1700 CAN PO 07/15 1701 Warfarin Sodium 5 MG COUMADIN 1700 ONE 07/14 1700 DC 07/14 PO 07/14 1701 1803 Zinc Oxide 1 CHAITANYA BID 06/30 220 AC 07/14 TOP 2201 Results Pertinent Lab Results: Laboratory Tests 07/15 07/15 0930 0030 Chemistry Sodium (137 - 145 mmol/L) 136 L Potassium (3.5 - 5.1 mmol/L) 4.3 Chloride (98 - 107 mmol/L) 102 Carbon Dioxide (22 - 30 mmol/L) 25 Anion Gap (5 - 16) 10 BUN (9 - 20 mg/dL) 41 H Creatinine (0.7 - 1.2 mg/dL) 3.9 H Estimated GFR (>60 ml/min) 15 L BUN/Creatinine Ratio (7 - 25 %) 10.5 Coagulation PT (9.4 - 12.5 SEC) 38.2 H INR (0.90 - 1.17) 3.69 H Hematology CBC w Diff NO MAN DIFF REQ WBC (4.8 - 10.8 /CUMM) 6.4 RBC (4.70 - 6.10 /CUMM) 2.71 L Hgb (14.0 - 18.0 G/DL) 7.8 L Hct (42 - 52 %) 24.4 L MCV (80.0 - 94.0 FL) 90.0 MCH (27.0 - 31.0 PG) 28.6 RDW (11.5 - 14.5 %) 19.0 H Plt Count (130 - 400 /CUMM) 160 MPV (7.4 - 10.4 FL) 10.5 H Gran % (42.2 - 75.2 %) 76.9 H Lymphocytes % (20.5 - 51.1 %) 8.9 L Monocytes % (1.7 - 9.3 %) 11.9 H Eosinophils % (0 - 5 %) 1.9 Basophils % (0.0 - 2.0 %) 0.4 Absolute Granulocytes (1.4 - 6.5 /CUMM) 4.9 Absolute Lymphocytes (1.2 - 3.4 /CUMM) 0.6 L Absolute Monocytes (0.10 - 0.60 /CUMM) 0.8 H Absolute Eosinophils (0.0 - 0.7 /CUMM) 0.1 Absolute Basophils (0.0 - 0.2 /CUMM) 0 PUBS MCHC (33.0 - 37.0 G/DL) 31.8 L Toxicology Random Vancomycin (ug/ml) 20.3 Urines Urine Color (YEL,AMB,STR) YEL Urine Clarity (CLEAR) TURBD H Urine pH (5.0 - 8.0) 6.0 Ur Specific [place] (1.001 - 1.035) 1.025 Urine Protein (NEG,<30 MG/DL) 100 H Urine Ketones (NEG) NEG Urine Nitrite (NEG) NEG Urine Bilirubin (NEG) NEG Urine Urobilinogen (0.1 - 1.0 EU/dl) 0.2 Ur Leukocyte Esterase (NEG) LARGE H Ur Microscopic SEDIMENT EXAMINED Urine WBC (0 - 2 /HPF) PACKD H Urine Hemoglobin (NEG) LARGE H Urine Glucose (N MG/DL) 100 H 07/14 07/13 0630 0620 Chemistry Sodium (137 - 145 mmol/L) 137 Potassium (3.5 - 5.1 mmol/L) 4.2 Chloride (98 - 107 mmol/L) 102 Carbon Dioxide (22 - 30 mmol/L) 25 Anion Gap (5 - 16) 10 BUN (9 - 20 mg/dL) 34 H Creatinine (0.7 - 1.2 mg/dL) 3.3 H Estimated GFR (>60 ml/min) 18 L BUN/Creatinine Ratio (7 - 25 %) 10.3 Coagulation PT (9.4 - 12.5 SEC) 22.8 H 27.7 H INR (0.90 - 1.17) 2.19 H 2.66 H Hematology CBC w Diff NO MAN DIFF REQ NO MAN DIFF REQ WBC (4.8 - 10.8 /CUMM) 6.3 7.5 RBC (4.70 - 6.10 /CUMM) 2.93 L 2.93 L Hgb (14.0 - 18.0 G/DL) 8.5 L 8.4 L Hct (42 - 52 %) 26.6 L 26.5 L MCV (80.0 - 94.0 FL) 91.0 90.3 MCH (27.0 - 31.0 PG) 29.0 28.7 RDW (11.5 - 14.5 %) 19.1 H 19.3 H Plt Count (130 - 400 /CUMM) 154 145 MPV (7.4 - 10.4 FL) 9.9 9.4 Gran % (42.2 - 75.2 %) 77.7 H 76.4 H Lymphocytes % (20.5 - 51.1 %) 9.2 L 8.5 L Monocytes % (1.7 - 9.3 %) 10.5 H 13.1 H Eosinophils % (0 - 5 %) 2.0 1.4 Basophils % (0.0 - 2.0 %) 0.6 0.6 Absolute Granulocytes (1.4 - 6.5 /CUMM) 4.9 5.7 Absolute Lymphocytes (1.2 - 3.4 /CUMM) 0.6 L 0.6 L Absolute Monocytes (0.10 - 0.60 /CUMM) 0.7 H 1.0 H Absolute Eosinophils (0.0 - 0.7 /CUMM) 0.1 0.1 Absolute Basophils (0.0 - 0.2 /CUMM) 0 0 PUBS MCHC (33.0 - 37.0 G/DL) 31.9 L 31.8 L /16 1633 Coagulation PT (9.4 - 12.5 SEC) 47.3 *H INR (0.90 - 1.17) 4.57 *H APTT (25 - 37 SEC) 41 H
--- NOTE | 2016-07-15 13:08 | PN- Infect Dx ---
Subjective Subjective: MAXIMUM TEMPERATURE 103.1. He continues to complain of left leg pain. He also continues to have loose brown stools with no complaints of abdominal pain. He does not report chest pain or shortness of breath at this time. Objective Last 24 Hrs of Vital Signs/I&O Vital Signs Date Time Temp Pulse Resp B/P Pulse O2 O2 Flow FiO2 Ox Delivery Rate 07/15 0826 100.8 88 18 100/54 96 Room Air 07/15 0458 98.1 88 20 98/44 93 07/15 0110 100.8 07/15 0110 100.8 07/15 0015 103.1 07/15 0011 103.1 114 20 150/74 94 07/15 0000 94 Room Air Room Air 07/14 2200 102 110/56 07/14 1607 97.7 102 20 110/56 91 Intake & Output 07/15 1600 07/15 0800 07/15 0000 Intake Total 270 50 Output Total 100 Balance 170 50 Intake, IV 270 Intake, Oral 0 50 Number 1 Bowel Movements Output, Urine 100 Patient 157 lb Weight Physical Exam Other Physical Findings: He appears comfortable in no acute distress on dialysis Lungs are clear anteriorly Heart regular rhythm with no murmur Abdomen is soft, nontender with positive bowel sounds Extremities left leg chronic lesion, tender to palpation; left foot with discoloration over the dorsum, tender to palpation Results Last 24 Hours of Lab Results: Laboratory Tests 07/15 07/15 0930 0030 Chemistry Sodium (137 - 145 mmol/L) 136 L Potassium (3.5 - 5.1 mmol/L) 4.3 Chloride (98 - 107 mmol/L) 102 Carbon Dioxide (22 - 30 mmol/L) 25 Anion Gap (5 - 16) 10 BUN (9 - 20 mg/dL) 41 H Creatinine (0.7 - 1.2 mg/dL) 3.9 H Estimated GFR (>60 ml/min) 15 L BUN/Creatinine Ratio (7 - 25 %) 10.5 Coagulation PT (9.4 - 12.5 SEC) 38.2 H INR (0.90 - 1.17) 3.69 H Hematology CBC w Diff NO MAN DIFF REQ WBC (4.8 - 10.8 /CUMM) 6.4 RBC (4.70 - 6.10 /CUMM) 2.71 L Hgb (14.0 - 18.0 G/DL) 7.8 L Hct (42 - 52 %) 24.4 L MCV (80.0 - 94.0 FL) 90.0 MCH (27.0 - 31.0 PG) 28.6 RDW (11.5 - 14.5 %) 19.0 H Plt Count (130 - 400 /CUMM) 160 MPV (7.4 - 10.4 FL) 10.5 H Gran % (42.2 - 75.2 %) 76.9 H Lymphocytes % (20.5 - 51.1 %) 8.9 L Monocytes % (1.7 - 9.3 %) 11.9 H Eosinophils % (0 - 5 %) 1.9 Basophils % (0.0 - 2.0 %) 0.4 Absolute Granulocytes (1.4 - 6.5 /CUMM) 4.9 Absolute Lymphocytes (1.2 - 3.4 /CUMM) 0.6 L Absolute Monocytes (0.10 - 0.60 /CUMM) 0.8 H Absolute Eosinophils (0.0 - 0.7 /CUMM) 0.1 Absolute Basophils (0.0 - 0.2 /CUMM) 0 PUBS MCHC (33.0 - 37.0 G/DL) 31.8 L Toxicology Random Vancomycin (ug/ml) 20.3 Urines Urine Color (YEL,AMB,STR) YEL Urine Clarity (CLEAR) TURBD H Urine pH (5.0 - 8.0) 6.0 Ur Specific [place] (1.001 - 1.035) 1.025 Urine Protein (NEG,<30 MG/DL) 100 H Urine Ketones (NEG) NEG Urine Nitrite (NEG) NEG Urine Bilirubin (NEG) NEG Urine Urobilinogen (0.1 - 1.0 EU/dl) 0.2 Ur Leukocyte Esterase (NEG) LARGE H Ur Microscopic SEDIMENT EXAMINED Urine WBC (0 - 2 /HPF) PACKD H Urine Hemoglobin (NEG) LARGE H Urine Glucose (N MG/DL) 100 H Last 24 Hours of [place] Results: Blood cultures 2 July 14 negative Urine culture July 15 pending Stool C. difficile July 15 pending Recent Imaging Studies: Chest x-ray July 14, personally reviewed, reveals an increased prominence of patchy right midlung airspace opacities Doppler of the right lower extremity July 14 reveals a chronic partially occlusive thrombus extending from the proximal right femoral vein to the popliteal vein Assessment/Plan Impression: Recent fevers of concern with several possible sources including the lungs, with recent chest x-ray revealing new patchy opacities in the right lung, though his respiratory status remains stable, the dialysis catheter, though there is no obvious overlying inflammation and recent blood cultures are so far negative, the left leg necrotic lesion, with persistent pain and now discoloration of the left foot, suggesting ongoing ischemia, and C. difficile, with guaiac positive loose stools reported, though this may be secondary to his underlying Crohn's disease. A noninfectious process, such as a DVT of the right upper extremity, given the swelling in the presence of a right IJ catheter, is possible, though he is on Coumadin, and, unfortunately a right lower extremity Doppler was apparently done. He was apparently redosed with Vancomycin, though he received a dose on July 12 after dialysis, and given a dose of Ceftazidime overnight. He is now 2 weeks status post excisional debridement of the left leg necrotic wound. Suggestion: 1. Follow-up recent cultures and C. difficile 2. Would perform a Doppler of the right UPPER extremity 3. Vascular surgery reevaluation 4. Re-dose with Ceftazidime 1 g IV after dialysis today 5. Continue Vancomycin after dialysis per protocol
[2016-07-15 16:18] VITALS: BP 117/70
--- NOTE | 2016-07-15 20:22 | NUR ---
NURSING NOTE: PATIENT TRANSPORTED TO DIALYSIS @ 0850. A&O X 2 WITH NO C/O PAIN OR DISCOMFORT. IV #22 LF INTACT WITH NS @ 50ML/HR. BS I53 INSULIN HELD AND RESEARCH CHEMICAL ENGINEER MADDISON IN AWARE.
--- NOTE | 2016-07-15 20:28 | NUR ---
NURSING NOTE: PATIENT RETURN FROM DIALYSIS @ 1415. AWAKE AND ALERT WITH NO C/O PAIN RO DISCOMFORT.
[2016-07-16 00:19] VITALS: BP 128/80
--- NOTE | 2016-07-16 07:23 | PN- Housestaff ---
ESTELA HEATH,[facility] 07/16/16 0723: Subjective Follow-up For: Chronic ulcer of the left leg Subjective: pt seen and examined, he was drowsy and confused, MAXIMUM TEMPERATURE of 100F overnight, he has been drowsy was still able to answer questions, he was complaining of pain in his left lower extremity, we'll get vascular input today. Review of Systems Constitutional: Denies: chills, malaise, weakness. Cardiovascular: Denies: chest pain, palpitations. Respiratory: Denies: cough, short of breath. Objective Last 24 Hrs of Vital Signs/I&O Vital Signs Date Time Temp Pulse Resp B/P Pulse O2 O2 Flow FiO2 Ox Delivery Rate 07/16 1307 97.9 80 18 126/68 94 Room Air 07/16 0839 97.0 98 20 122/62 92 Room Air 07/16 0800 93 Room Air 07/16 0610 97.1 07/16 0320 97.1 07/16 0019 100.0 107 18 128/80 91 Room Air 07/15 2230 102.0 07/15 2220 102.0 Intake & Output 07/16 1600 07/16 0800 07/16 0000 Intake Total 951 400 200 Output Total Balance 951 400 200 Intake, Blood 1 Product Intake, IV 50 400 200 Intake, Oral 900 Number 3 1 Bowel Movements Patient 72.688 kg Weight Physical Exam General Appearance: Alert, Oriented X3, Cooperative, No Acute Distress Cardiovascular: Regular Rate, Normal S1, Normal S2, No Murmurs Lungs: Clear to Auscultation, Normal Air Movement Abdomen: Normal Bowel Sounds, Soft, No Tenderness Extremities: left lower ext ulcer Current Medications: Current Medications Sig/Kailash Start time Last Medication Dose Route Stop Time Status Admin Acetaminophen 1,000 MG ONCE ONE 07/15 2230 DC 07/15 N/A 1 UNIT IV 07/15 224 2230 Acetaminophen 500 MG Q6P PRN 07/02 0815 AC 07/08 PO 1102 Aspirin 81 MG DAILY 07/01 1000 AC 07/16 PO 1008 Atorvastatin Calcium 40 MG 1700 06/30 1700 AC 07/16 PO 1620 Carvedilol 25 MG BID 06/30 2200 AC 07/16 PO 1008 Ceftazidime 1,000 MG 2000 07/16 1600 AC 07/16 IV 1621 Diphenoxylate HCl/ 2.5 MG TID PRN 07/16 1200 AC 07/16 Atropine PO 1246 Epoetin Ludwig 3,000 UNIT MoWeFr PRN 07/08 1200 AC IV Epoetin Ludwig 2,000 UNIT MoWeFr PRN 07/08 1200 AC IV Insulin Aspart 0 TIDAC/HS 06/30 2100 AC 07/16 SC 1700 Insulin Detemir 4 UNITS DAILY 07/11 1000 AC 07/16 SC 1008 Iron Sucrose 100 MG PER PROTOCL PRN 07/01 1430 AC 07/03 Sodium Chloride 100 ML IV 1221 Isosorbide 30 MG DAILY 07/09 1056 AC 07/16 Mononitrate PO 1008 Multivitamins 1 TAB DAILY 07/01 1000 AC 07/16 PO 1008 Omeprazole 40 MG DAILY AC 07/14 0700 AC 07/16 PO 0659 Oxycodone/ 2 TAB Q6P PRN 07/11 2230 AC 07/16 Acetaminophen PO 1631 Prednisone 7.5 MG DAILY 07/14 1000 AC 07/16 PO 1008 Sevelamer Carbonate 800 MG WITH MEALS 06/30 1200 AC 07/16 PO 1700 Sodium Chloride 1,000 ML Q20H 07/15 0515 DC 07/16 IV 0115 Sodium Chloride 2 SPRAY Q10MIN PRN 07/12 0230 AC CARLITOS Sodium Hypochlorite 1 CHAITANYA BID 07/05 1113 AC 07/16 TOP 1134 Tamsulosin HCl 0.4 MG DAILY 07/01 1000 AC 07/16 PO 1008 Vancomycin HCl 1 MG Q24 PRN 07/15 1415 AC Sodium Chloride 1 ML IV Vitamin A/Vitamin D 1 CHAITANYA BID 06/30 220 AC 07/16 TOP 1022 Zinc Oxide 1 CHAITANYA BID 06/30 2200 AC 07/16 TOP 1022 Last 24 Hrs of Lab/[place] Results Last 24 Hrs of Labs/Mics: Laboratory Tests 07/16/16 0606: PT 47.6 *H, INR 4.60 *H, CBC w Diff NO MAN DIFF REQ, RBC 2.58 L, MCV 90.3, MCH 28.4, RDW 19.2 H, MPV 9.7, Gran % 75.6 H, Lymphocytes % 9.7 L, Monocytes % 13.5 H, Eosinophils % 1.0, Basophils % 0.2, Absolute Granulocytes 4.2, Absolute Lymphocytes 0.5 L, Absolute Monocytes 0.8 H, Absolute Eosinophils 0.1, Absolute Basophils 0, PUBS MCHC 31.5 L Microbiology 07/16 0142 BLOOD: Blood Culture - RECD 07/16 0054 BLOOD: Blood Culture - RECD 07/15 2330 BLOOD: Blood Culture - CAN Cancelled: Cancelled via OE: Per MD Decision Assessment/Plan Assessment: 75 y/o M with PMHx of antiphospholipid antibody syndrome, diabetes and CKD who presented with SOB, hoarseness and stridor, found to be uremic with initiation of HD, s/p debridement of chronic left leg ulcer, on IV vancomycin for soft tissue infection, currently awaiting outpatient dialysis slot. Pneumonia: Likely aspiration PNA, CXR showed rt middle lobe opacity Currently on Ceftazidime and vancomycin for anaerobic and gram negative coverage overnight fever spike to 100F, will continue to monitor ID following, will follow recs Anemia : Etiology multifactorial . H&H dropped to 7.4 , patient transfused 1 unit of packed red blood cells , GI consulted , earlier in the week dose of prednisone was decreased from 10 mg to 7.[address] Acevedo did not recommend any additional intervention at this time and suggested that anemia likely secondary to other causes then GI. Will have patient follow-up with GI as an outpatient. We'll continue iron supplementation and Epogen. Chest Pain: Resolved. On 07/09 patient had chest pain, ekg-no acute changes. Troponins elevated at 0.14. patient was transferred to telemetry floor for continuous cardiac monitoring, cardiology on board repeat troponin trended down. Chronic left lower extremity ulcer: Has chronic nonhealing ulcers of left leg for which he sees Dr. Pretty as outpatient. S/p excisional debridement through the subcutaneous and muscular tissue with reported seropurulent drainage (06/30) and OR cultures growing diphthteroids and coag-negative Staph. Although these are not typically pathogenic organisms, currently on IV vancomycin for possible soft tissue infection.Wound appears improved, however patient complains of severe pain concerning for ischemia. * ID following * Continue vancomycin per dialysis protocol * Vascular surgery consulted again. Appreciate further evaluation regarding the vascular supply of left leg. Antiphospholipid antibody syndrome: chronic right upper extremity DVT. On life- long anti-coagulation with warfarin, takes 5 mg PO QD. * Continue to check INR daily and dose warfarin accordingly to keep INR between 2-3. INR supra therapeutic, once therapeutic will dose at 2.5mg daily. ESRD: Cr was 5 on admission, with gradual increase from 2-3 within the past year. Most likely etiology is progressive diabetic nephropathy. Mj cath was placed and urgent hemodialysis was initiated (06/26) with improvement of mental status. Patient is currently awaiting outpatient dialysis slot. * Nephrology following * Continue HD MW * No PICC lines should be inserted per Nephrology, as patient will need vein site for placement of graft. * Continue sevelamer 800 mg PO TIDAC. * Continue daily Nephrocaps T2DM: Uncontrolled blood sugars this admission, secondary to steroids. * Endocrinology following * Levemir 4U SQ DAILY * Continue NovoLog SSI TIDAC as suggested HTN: Takes amlodipine 10 mg PO QD, carvedilol 25 mg PO BID, furosemide 80 mg PO BID and hydralazine 50 mg PO BID at home. * Holding home amlodipine, furosemide and hydralazine. * Continue home carvedilol. Crohn's disease: Patient has been taking prednisone 10 mg PO QD for many years to prevent flares. * prednisone dose 7.5 mg daily. As per recommendations from GI. Start to taper for 5 weeks as tolerated. * Aspirin GI, the patient to remain on aspirin, Protonix needed to be added. * C diff was added to rule out C diff toxin infection. Blood cultures were sent. Diet: Renal Dialysis Diet (regular and nectar thick liquids) DVT PPx: Warfarin and ALPs CODE: FULL Problem List: 1. Pneumonia 2. Crohns disease 3. Chronic ulcer of left lower extremity 4. Antiphospholipid antibody syndrome 5. Supratherapeutic INR Pain Ratin Pain Location: left lower ext Pain Goal: Remain pain free Pain Plan: Percocet Tomorrow's Labs & Rationales: INR for Coumadin dosing CBC for H&H monitoring post transfusion ARTURO HEATH,HARRY 07/16/16 1717: Attending MD Review Statement Attending Statement Attending MD Statement: examined this patient, discuss w/resident/PA/FISH FARM MANAGER, agreed w/resident/PA/FISH FARM MANAGER, reviewed EMR data (avail), discussed with nursing, discussed with case mgmt, amended to note Attending Assessment/Plan: Patient seen and examined. Febrile overnight with a MAXIMUM TEMPERATURE of 100.2 around 10:30 PM yesterday. He fortunately remains hemodynamically stable. He has been afebrile so far today. Today's alert and oriented 3 to nursing staff reports periods of confusion on and off. Blood cultures are currently negative from the . Urine culture is growing yeast. Has a mildly productive cough. On examination and she is markedly diminished in both lung neal with no significant added sounds. Abdomen is soft and nontender. He has no rash. On examination of the left lower extremity he has an extensive area of wet and dry necrosis and foul-smelling discharge from the left lower extremity. It is tender to palpation. There is minimal surrounding erythema. His hemoglobin is 7.3 this morning. On the his hemoglobin was 6.8 and he received a unit of blood. His hemoglobin was 8.50 to weekend but is currently trended down to 7.3 today. Etiology of his anemia recently multifactorial particularly in the setting of end-stage renal disease, and iron deficiency however concerning is gastrointestinal blood loss due to his history of Crohn's disease. Patient also has a supratherapeutic INR and is on steroid and antiplatelet therapy. Recommendations: -Transfuse 1 unit of [place] red blood cells to optimize his hemoglobin level particularly in the setting of downward trending hemoglobin levels. -Housestaff did discuss the case with Dr. Blaze Acevedo. He does not recommend any gastroenterology intervention at present. -Continue iron supplementation and erythropoietin per the nephrology service. -Patient is on prednisone 7.5 mg daily. Will taper down by recommendations of the GI service. -Adequate wound healing appears less likely to Zocor in the setting of his poor overall condition, systemic steroid therapy and extensive area of necrosis. Continue wound care per recommendations of the wound service. Follow-up recommendations of the vascular surgery service. -Continue current antibiotic course. Infectious etiology appears to be secondary to his underlying pneumonia which is likely secondary to aspiration. It is also possible that the fever may be coming from his lower extremity necrosis. -Continue to hold Coumadin until INR is below 2.9.
[2016-07-16 07:38] LABS: ABSOLUTE BASOPHIL COUNT 0 /CUMM (0.0-0.2); ABSOLUTE EOSINOPHIL COUNT 0.1 /CUMM (0.0-0.7); ABSOLUTE LYMPH COUNT 0.5 /CUMM (1.2-3.4); MEAN PLATELET VOLUME 9.7 FL (7.4-10.4); WHITE BLOOD CELL COUNT 5.6 /CUMM (4.8-10.8)
--- NOTE | 2016-07-16 08:02 | PN- Diabetes ---
Assessment/Plan Assessment: The patient continues on dialysis. Levemir was decreased to 4 units daily. His prednisone has been decreased to 5 mg once a day in the morning. He is on sliding scale NovoLog before meals starting with 3 units for 80-150. the patient's fingerstick blood sugars yesterday were good. They were 153 before breakfast, 106 before lunch, 183 before dinner, and 144 at bedtime. Unfortunately the patient continues with fevers with with a MAXIMUM TEMPERATURE of 102.0. He remains lethargic this morning but more alert than yesterday. Plan: Suggest continue the present insulin. The source of the fever is not clear and the patient is on antibiotics as per Oscar Harden MD. Dr. surgeon needs to come back to look at the wound left leg. Subjective Subjective: Feels okay Review of Systems Constitutional: Reports: fever. Denies: chills. Cardiovascular: Denies: chest pain. Respiratory: Reports: cough. Gastrointestinal: Denies: nausea, vomiting. Skin: Reports: lesions (painful wound left leg). Objective Last 24 Hrs of Vital Signs/I&O Vital Signs Date Time Temp Pulse Resp B/P Pulse O2 O2 Flow FiO2 Ox Delivery Rate 07/16 0610 97.1 07/16 0320 97.1 07/16 0019 100.0 107 18 128/80 91 Room Air 07/15 2230 102.0 07/150 102.0 07/15 1618 101.0 96 22 117/70 92 07/15 1530 60 128/60 07/15 1430 60 128/60 07/15 1430 60 428/60 07/15 0826 100.8 88 18 100/54 96 Room Air Intake & Output 07/16 1600 07/16 0800 07/16 0000 Intake Total 400 200 Output Total Balance 400 200 Intake, IV 400 200 Number 1 Bowel Movements Patient 160 lb Weight Vital Signs Date Time Temp Pulse Resp B/P Pulse O2 O2 Flow FiO2 Ox Delivery Rate 07/16 0610 97.1 07/16 0320 97.1 07/16 0019 100.0 107 18 128/80 91 Room Air 07/15 2230 102.0 07/15 2220 102.0 07/15 1618 101.0 96 22 117/70 92 07/15 1530 60 128/60 07/15 1430 60 128/60 07/15 1430 60 428/60 07/15 0826 100.8 88 18 100/54 96 Room Air Intake & Output 07/16 1600 07/16 0800 07/16 0000 Intake Total 400 200 Output Total Balance 400 200 Intake, IV 400 200 Number 1 Bowel Movements Patient 160 lb Weight Physical Exam General Appearance: awake, lethargic Head: normal appearance Neck: normal inspection Respiratory: normal breath sounds Abdomen: normal bowel sounds Extremities: left lower leg bandaged Current Medications: Current Medications Sig/Kailash Start time Last Medication Dose Route Stop Time Status Admin Acetaminophen 1,000 MG ONCE ONE 07/15 2230 DC 07/15 N/A 1 UNIT IV 07/15 2244 2230 Acetaminophen 500 MG Q6P PRN 07/02 0815 AC 07/08 PO 1102 Aspirin 81 MG DAILY 07/01 1000 AC 07/15 PO 1430 Atorvastatin Calcium 40 MG 1700 06/30 1700 AC 07/15 PO 1800 Carvedilol 25 MG BID 06/30 2200 AC 07/15 PO 1530 Ceftazidime 1,000 MG ONCE ONE 07/15 1415 DC 07/15 IV 07/15 1416 1600 Epoetin Ludwig 3,000 UNIT MoWeFr PRN 07/08 1200 AC IV Epoetin Ludwig 2,000 UNIT MoWeFr PRN 07/08 1200 AC IV Insulin Aspart 0 TIDAC/HS 06/30 2100 AC 07/15 SC 2116 Insulin Detemir 4 UNITS DAILY 07/11 1000 AC 07/15 SC 1520 Iron Sucrose 100 MG PER PROTOCL PRN 07/01 1430 AC 07/03 Sodium Chloride 100 ML IV 1221 Isosorbide 30 MG DAILY 07/09 1056 AC 07/15 Mononitrate PO 1430 Multivitamins 1 TAB DAILY 07/01 1000 AC 07/15 PO 1520 Omeprazole 40 MG DAILY AC 07/14 0700 AC 07/16 PO 0659 Oxycodone/ 2 TAB Q6P PRN 07/11 2230 AC 07/15 Acetaminophen PO 1536 Patient Medication 1 ED .STK-MED ONE 07/15 1355 DC Teaching ED 07/15 1356 Prednisone 7.5 MG DAILY 07/14 1000 AC 07/15 PO 1521 Sevelamer Carbonate 800 MG WITH MEALS 06/30 1200 AC 07/15 PO 1800 Sodium Chloride 1,000 ML Q20H 07/15 0515 AC 07/16 IV 0115 Sodium Chloride 2 SPRAY Q10MIN PRN 07/12 0230 AC CARLITOS Sodium Hypochlorite 1 CHAITANYA BID 07/05 1113 AC 07/15 TOP 211 Tamsulosin HCl 0.4 MG DAILY 07/01 1000 AC 07/15 PO 1430 Vancomycin HCl 250 MG ONCE ONE 07/15 1430 DC 07/15 Sodium Chloride 100 ML IV 07/15 1459 1524 Vancomycin HCl 1 MG Q24 PRN 07/15 1415 AC Sodium Chloride 1 ML IV Vancomycin HCl 1 MG Q24 PRN 07/15 0845 DC Sodium Chloride 1 ML IV Vitamin A/Vitamin D 1 CHAITANYA BID 06/30 220 AC 07/15 TOP 211 Warfarin Sodium 5 MG COUMADIN 1700 ONE 07/15 1700 CAN PO 07/15 1701 Zinc Oxide 1 CHAITANYA BID 06/30 2200 AC 07/15 TOP 2115 Findings Pertinent Lab/[place] Results: Laboratory Tests 07/16 07/15 0606 0930 Chemistry Sodium (137 - 145 mmol/L) 136 L Potassium (3.5 - 5.1 mmol/L) 4.3 Chloride (98 - 107 mmol/L) 102 Carbon Dioxide (22 - 30 mmol/L) 25 Anion Gap (5 - 16) 10 BUN (9 - 20 mg/dL) 41 H Creatinine (0.7 - 1.2 mg/dL) 3.9 H Estimated GFR (>60 ml/min) 15 L BUN/Creatinine Ratio (7 - 25 %) 10.5 Coagulation PT (9.4 - 12.5 SEC) Pending 38.2 H INR (0.90 - 1.17) Pending 3.69 H Hematology CBC w Diff Pending NO MAN DIFF REQ WBC (4.8 - 10.8 /CUMM) Pending 6.4 RBC (4.70 - 6.10 /CUMM) Pending 2.71 L Hgb (14.0 - 18.0 G/DL) Pending 7.8 L Hct (42 - 52 %) Pending 24.4 L MCV (80.0 - 94.0 FL) Pending 90.0 MCH (27.0 - 31.0 PG) Pending 28.6 RDW (11.5 - 14.5 %) Pending 19.0 H Plt Count (130 - 400 /CUMM) Pending 160 MPV (7.4 - 10.4 FL) Pending 10.5 H Gran % (42.2 - 75.2 %) 76.9 H Lymphocytes % (20.5 - 51.1 %) 8.9 L Monocytes % (1.7 - 9.3 %) 11.9 H Eosinophils % (0 - 5 %) 1.9 Basophils % (0.0 - 2.0 %) 0.4 Absolute Granulocytes (1.4 - 6.5 /CUMM) 4.9 Absolute Lymphocytes (1.2 - 3.4 /CUMM) 0.6 L Absolute Monocytes (0.10 - 0.60 /CUMM) 0.8 H Absolute Eosinophils (0.0 - 0.7 /CUMM) 0.1 Absolute Basophils (0.0 - 0.2 /CUMM) 0 PUBS MCHC (33.0 - 37.0 G/DL) Pending 31.8 L Toxicology Random Vancomycin (ug/ml) 20.3
[2016-07-16 08:26] LABS: ABSOLUTE GRANULOCYTE CT 4.2 /CUMM (1.4-6.5); ABSOLUTE MONOCYTE COUNT 0.8 /CUMM (0.10-0.60); BASOPHIL % 0.2 % (0.0-2.0); GRANULOCYTE % 75.6 % (42.2-75.2); MEAN CORPUSCULAR HGB 28.4 PG (27.0-31.0); MEAN CORPUSCULAR HGB CONC 31.5 G/DL (33.0-37.0); MEAN CORPUSCULAR VOLUME 90.3 FL (80.0-94.0); PLATELET COUNT 183 /CUMM (130-400); RBC DISTRIBUTION WIDTH 19.2 % (11.5-14.5); RED BLOOD CELL CT 2.58 /CUMM (4.70-6.10)
[2016-07-16 08:31] LABS: HEMATOCRIT 23.3 % (42-52)
[2016-07-16 08:35] LABS: PT 47.6 SEC (9.4-12.5)
[2016-07-16 08:39] VITALS: BP 122/62
--- NOTE | 2016-07-16 09:02 | PN- Wound Care ---
Subjective Subjective: Patient again seen for consideration of possible hyperbaric oxygen therapy. Patient has been medically unstable with transfer to the intensive care unit for chest pain now febrile illness and new pulmonary infiltrates with suspected pneumonia.. He remains febrile to 103 yesterday. His leg has developed significant recurrent necrotic eschar Objective Vital Signs and I&Os Vital Signs Result Date Time Pulse Ox 92 07/16 839 B/P 122/62 07/16 08 O2 Delivery Room Air 07/16 839 Temp 97.0 07/16 08 Pulse 98 07/16 0839 Resp 20 07/16 0839 O2 Flow Rate Room Air 07/15 0000 Intake & Output 07/16 0000 07/15 1600 07/15 0800 Intake Total 200 270 Output Total 100 Balance 200 170 Intake, IV 200 270 Intake, Oral 0 Output, Urine 100 Patient 157 lb Weight Exam of the left leg shows there to be extensive eschar which is dry there is proposed discoloration over the dorsal foot recent venous ultrasound shows extensive DVT. Impression/Plan Impression/Plan Impression/Plan: 75-year-old gentleman with multiple medical problems has had a chronic nonhealing ulcer of the left lower extremity which has recurrent necrosis. Patient remains medically unstable with fever and new pulmonary infiltrates. Recommend reevaluation by vascular surgery. Once patient is medically stable and acute issues have resolved hyperbaric oxygen therapy has the potential of assisting in wound healing. Wound bed appears overly dry and Dakin's is to be continued dressing should be changed frequently to ensure that wound remains moist
--- NOTE | 2016-07-16 11:37 | PN- Infect Dx ---
Subjective Subjective: MAXIMUM TEMPERATURE 102. He does not report pain in his leg at this time. He does report a cough, with white/yellow sputum and shortness of breath, but denies any chest pain. Objective Last 24 Hrs of Vital Signs/I&O Vital Signs Date Time Temp Pulse Resp B/P Pulse O2 O2 Flow FiO2 Ox Delivery Rate 07/16 0839 97.0 98 20 122/62 92 Room Air 07/16 0610 97.1 07/16 0320 97.1 07/16 0019 100.0 107 18 128/80 91 Room Air 07/15 2230 102.0 07/15 2220 102.0 07/15 1618 101.0 96 22 117/70 92 07/15 1530 60 128/60 07/15 1430 60 128/60 07/15 1430 60 428/60 Intake & Output 07/16 1600 07/16 0800 07/16 0000 Intake Total 400 200 Output Total Balance 400 200 Intake, IV 400 200 Number 1 Bowel Movements Patient 160 lb Weight Physical Exam Other Physical Findings: He appears more comfortable in no acute distress Chest tunnelled catheter in the right upper chest with no inflammation at the site Lungs are clear Abdomen is soft, nontender with positive bowel sounds Extremities left calf wound marked necrosis, tender to palpation, with minimal surrounding erythema; skin discoloration over the dorsum of his left foot, with 1+ pulses Results Last 24 Hours of Lab Results: Laboratory Tests 07/16 0606 Coagulation PT (9.4 - 12.5 SEC) 47.6 *H INR (0.90 - 1.17) 4.60 *H Hematology CBC w Diff NO MAN DIFF REQ WBC (4.8 - 10.8 /CUMM) 5.6 RBC (4.70 - 6.10 /CUMM) 2.58 L Hgb (14.0 - 18.0 G/DL) 7.3 *L Hct (42 - 52 %) 23.3 L MCV (80.0 - 94.0 FL) 90.3 MCH (27.0 - 31.0 PG) 28.4 RDW (11.5 - 14.5 %) 19.2 H Plt Count (130 - 400 /CUMM) 183 MPV (7.4 - 10.4 FL) 9.7 Gran % (42.2 - 75.2 %) 75.6 H Lymphocytes % (20.5 - 51.1 %) 9.7 L Monocytes % (1.7 - 9.3 %) 13.5 H Eosinophils % (0 - 5 %) 1.0 Basophils % (0.0 - 2.0 %) 0.2 Absolute Granulocytes (1.4 - 6.5 /CUMM) 4.2 Absolute Lymphocytes (1.2 - 3.4 /CUMM) 0.5 L Absolute Monocytes (0.10 - 0.60 /CUMM) 0.8 H Absolute Eosinophils (0.0 - 0.7 /CUMM) 0.1 Absolute Basophils (0.0 - 0.2 /CUMM) 0 PUBS MCHC (33.0 - 37.0 G/DL) 31.5 L Last 24 Hours of Avtar Results: Blood cultures July 14 negative Blood cultures July 16 negative so far Stool C. difficile July 15 negative Urine culture July 15 approximately 60,000 colonies of yeast Assessment/Plan Impression: Recent fevers with several possible sources including the lungs, with recent chest x-ray revealing new patchy opacities in the right lung, though his respiratory status has remained stable, the dialysis catheter, though there is no obvious overlying inflammation and recent blood cultures remain negative, the left leg necrotic lesion, with persistent pain, worsening necrosis of the wound and now discoloration of the left foot, suggesting ongoing ischemia and the urinary tract, with candiduria noted, though suspect this represents colonization. He remains on Vancomycin and now Ceftazidime 15 days status post excisional debridement of the left leg necrotic wound. Suggestion: 1. Vascular surgery reevaluation 2. Follow-up recent cultures 3. Continue Ceftazidime 1 g IV every 24 hours 4. Continue Vancomycin after each dialysis per protocol
[2016-07-16 13:07] VITALS: BP 126/68
--- NOTE | 2016-07-16 14:31 | NUR ---
NURSING NOTE: 1 UNIT BLOOD INFUSING AT THIS TIME. NO LASIX NEEDED PER DR MORRIS. CONT TO MONITOR
[2016-07-16 16:15] VITALS: BP 118/84
--- NOTE | 2016-07-16 21:01 | PN- Vascular Surgery ---
Surgical Brief Attending Note Brief Attending Note: Patient known to Dr. Pretty from the vascular surgery service. He has had chronic left lower semi-wound and has undergone debridement and has been followed in the wound center. I was asked to see the patient regarding lower extremity eschar. He has recently been found to have bilateral pulmonary infiltrates. He has palpable pedal pulses. There are chronic wounds of the left leg with black eschar. No gross evidence of infection. Given the palpable pulse, I don' t believe the patient has any significant arterial disease. According to the patient and his , he has also been assessed for superficial venous insufficiency which he does not have. At this time, no vascular surgery intervention is needed. The patient will need wound care and possible wound debridement which can be followed in the wound center or if needed, an operative wound debridement can also be an option.
[2016-07-17 01:39] VITALS: BP 140/88
[2016-07-17 07:30] VITALS: BP 134/64
--- NOTE | 2016-07-17 07:41 | PN- Housestaff ---
See Addendum Subjective Follow-up For: Left lower leg non healing ulcer anemia Review of Systems Constitutional: Denies: chills, fever. Cardiovascular: Denies: chest pain, palpitations. Respiratory: Reports: cough, short of breath, sputum production. Gastrointestinal: Reports: diarrhea. Denies: abdominal pain, nausea, vomiting. Objective Last 24 Hrs of Vital Signs/I&O Vital Signs Date Time Temp Pulse Resp B/P Pulse O2 O2 Flow FiO2 Ox Delivery Rate 07/17 1627 100.1 119 20 122/62 91 Room Air 07/17 1624 122/62 07/17 1624 122/62 07/17 0932 97.4 75 18 130/64 97 07/17 0730 97.4 75 18 134/64 97 07/17 0139 97.4 94 18 140/88 95 Room Air 07/17 0000 Room Air 07/16 2156 80 142/72 Intake & Output 07/17 1600 07/17 0800 07/17 0000 Intake Total 600 240 600 Output Total 200 250 Balance 400 -10 600 Intake, Oral 600 240 600 Number 2 6 3 Bowel Movements Output, Urine 200 250 Patient 73.936 kg Weight Physical Exam General Appearance: Alert, Cooperative, No Acute Distress Cardiovascular: Regular Rate, Normal S1, Normal S2, No Murmurs Lungs: Clear to Auscultation, Normal Air Movement Abdomen: Normal Bowel Sounds, Soft, No Tenderness Extremities: LEFT LOWER LEG NON HEALING ULCER Current Medications: Current Medications Sig/Kailash Start time Last Medication Dose Route Stop Time Status Admin Acetaminophen 500 MG Q6P PRN 07/02 0815 AC 07/17 PO 0027 Aspirin 81 MG DAILY 07/01 1000 AC 07/17 PO 1624 Atorvastatin Calcium 40 MG 1700 06/30 1700 AC 07/17 PO 1623 Carvedilol 25 MG BID 06/30 2200 AC 07/16 PO 2156 Ceftazidime 1,000 MG 2000 07/16 1600 AC 07/16 IV 1621 Diphenoxylate HCl/ 2.5 MG TID PRN 07/16 1200 AC 07/16 Atropine PO 1246 Epoetin Ludwig 3,000 UNIT MoWeFr PRN 07/08 1200 AC IV Epoetin Ludwig 2,000 UNIT MoWeFr PRN 07/08 1200 AC IV Insulin Aspart 0 TIDAC/HS 06/30 2100 AC 07/17 SC 0902 Insulin Detemir 4 UNITS DAILY 07/11 1000 AC 07/17 SC 0935 Iron Sucrose 100 MG PER PROTOCL PRN 07/01 1430 AC 07/03 Sodium Chloride 100 ML IV 1221 Isosorbide 30 MG DAILY 07/09 1056 AC 07/17 Mononitrate PO 1624 Multivitamins 1 TAB DAILY 07/01 1000 AC 07/17 PO 1624 Omeprazole 40 MG DAILY AC 07/14 0700 AC 07/17 PO 0531 Oxycodone/ 2 TAB Q6P PRN 07/11 2230 AC 07/17 Acetaminophen PO 0946 Patient Medication 1 ED .STK-MED ONE 07/17 1355 DC Teaching ED 07/17 1356 Prednisone 7.5 MG DAILY 07/14 1000 AC 07/17 PO 1624 Sevelamer Carbonate 800 MG WITH MEALS 06/30 1200 AC 07/17 PO 0901 Sodium Chloride 2 SPRAY Q10MIN PRN 07/12 0230 AC CARLITOS Sodium Hypochlorite 1 CHAITANYA BID 07/05 1113 AC 07/17 TOP 0936 Tamsulosin HCl 0.4 MG DAILY 07/01 1000 AC 07/17 PO 1624 Vancomycin HCl 750 MG ONCE ONE 07/17 1215 CAN Sodium Chloride 250 ML IV 07/17 1314 Vancomycin HCl 1 MG Q24 PRN 07/15 1415 DC Sodium Chloride 1 ML IV Vitamin A/Vitamin D 1 CHAITANYA BID 06/30 2200 AC 07/17 TOP 0901 Zinc Oxide 1 CHAITANYA BID 06/30 2200 AC 07/17 TOP 0900 Last 24 Hrs of Lab/Avtar Results Last 24 Hrs of Labs/Mics: Laboratory Tests 07/17/16 1145: Anion Gap 10, Estimated GFR 19 L, BUN/Creatinine Ratio 9.4, Calcium 8.0 L, Phosphorus 2.7, Magnesium 1.6, Albumin 2.4 L, PT 67.0 *H, INR 6.50 *H, CBC w Diff NO MAN DIFF REQ, RBC 3.08 L, MCV 89.0, MCH 28.4, RDW 18.3 H, MPV 9.9, Gran % 68.3, Lymphocytes % 14.5 L, Monocytes % 12.9 H, Eosinophils % 4.2, Basophils % 0.1, Absolute Granulocytes 3.2, Absolute Lymphocytes 0.7 L, Absolute Monocytes 0.6, Absolute Eosinophils 0.2, Absolute Basophils 0, PUBS MCHC 31.9 L 07/17/16 0845: Vancomycin Trough 12.7 07/17/16 0600: CBC w Diff Cancelled, WBC Cancelled, RBC Cancelled, Hgb Cancelled, Hct Cancelled , MCV Cancelled, MCH Cancelled, RDW Cancelled, Plt Count Cancelled, MPV Cancelled, PUBS MCHC Cancelled Assessment/Plan Assessment: 75 y/o M with PMHx of antiphospholipid antibody syndrome, diabetes and CKD who presented with SOB, hoarseness and stridor, found to be uremic with initiation of HD, s/p debridement of chronic left leg ulcer, on IV vancomycin for soft tissue infection, currently awaiting outpatient dialysis slot. Pneumonia: Likely aspiration PNA, CXR showed rt middle lobe opacity Currently on Ceftazidime (VANCOMYCIN STOPPED)for anaerobic and gram negative coverage overnight fever spike to 100F, will continue to monitor ID following, will follow recs Anemia : Etiology multifactorial . H&H dropped to 7.4 , patient transfused 1 unit of packed red blood cells ,post transfusion hgb 8.8. GI consulted , earlier in the week dose of prednisone was decreased from 10 mg to 7.[address] Acevedo did not recommend any additional intervention at this time and suggested that anemia likely secondary to other causes then GI. Will have patient follow-up with GI as an outpatient. We'll continue iron supplementation and Epogen. Chest Pain: Resolved. On 07/09 patient had chest pain, ekg-no acute changes. Troponins elevated at 0.14. patient was transferred to telemetry floor for continuous cardiac monitoring, cardiology on board repeat troponin trended down. Chronic left lower extremity ulcer: Has chronic nonhealing ulcers of left leg for which he sees Dr. Pretty as outpatient. S/p excisional debridement through the subcutaneous and muscular tissue with reported seropurulent drainage (06/30) and OR cultures growing diphthteroids and coag-negative Staph. Although these are not typically pathogenic organisms, currently on IV vancomycin for possible soft tissue infection.Wound appears improved, however patient complains of severe pain concerning for ischemia. * ID following * Vancomycin completed * Vascular surgery consulted again. no intervention suggested * Will consult of plans of possible debridment Antiphospholipid antibody syndrome: chronic right upper extremity DVT. On life- long anti-coagulation with warfarin, takes 5 mg PO QD. * Continue to check INR daily and dose warfarin accordingly to keep INR between 2-3. INR supra therapeutic, once therapeutic will dose at 2.5mg daily. ESRD: Cr was 5 on admission, with gradual increase from 2-3 within the past year. Most likely etiology is progressive diabetic nephropathy. Mj cath was placed and urgent hemodialysis was initiated (06/26) with improvement of mental status. Patient is currently awaiting outpatient dialysis slot. * Nephrology following * Continue HD MW * No PICC lines should be inserted per Nephrology, as patient will need vein site for placement of graft. * Continue sevelamer 800 mg PO TIDAC. * Continue daily Nephrocaps T2DM: Uncontrolled blood sugars this admission, secondary to steroids. * Endocrinology following * Levemir 4U SQ DAILY * Continue NovoLog SSI TIDAC as suggested HTN: Takes amlodipine 10 mg PO QD, carvedilol 25 mg PO BID, furosemide 80 mg PO BID and hydralazine 50 mg PO BID at home. * Holding home amlodipine, furosemide and hydralazine. * Continue home carvedilol. Crohn's disease: Patient has been taking prednisone 10 mg PO QD for many years to prevent flares. * prednisone dose 7.5 mg daily. As per recommendations from GI and tapering for 2 weeks as tolerated. * Aspirin GI, the patient to remain on aspirin, Protonix needed to be added. * C diff was added to rule out C diff toxin infection. Blood cultures were sent. Diet: Renal Dialysis Diet (regular and nectar thick liquids) DVT PPx: Warfarin and ALPs CODE: FULL Problem List: 1. Supratherapeutic INR 2. Swelling of right upper extremity 3. Crohn disease 4. DVT prophylaxis 5. Full code status 6. Wound infection 7. Antiphospholipid antibody syndrome 8. Type 2 diabetes mellitus Pain Ratin Pain Location: left lower ext Pain Goal: Remain pain free Pain Plan: percocet Tomorrow's Labs & Rationales: inr for coumadin dosing cbc for h&h monitoring
--- NOTE | 2016-07-17 07:54 | PN- Diabetes ---
Assessment/Plan Assessment: The patient is much brighter today. He states that he feels much improved. The patient continues on dialysis. Levemir was decreased to 4 units daily. His prednisone has been been adjusted to 7.5 mg once a day in the morning. He is on sliding scale NovoLog before meals starting with 3 units for 80-150. the patient's fingerstick blood sugars yesterday were good. Realistic blood sugars yesterday were 201 before breakfast, 206 before lunch, 157 before dinner, and 198 at bedtime. The patient's fever has declined. Plan: Suggest continue the present insulin. Consider further debridement of left lower leg wound. Subjective Subjective: Feels improved Review of Systems Constitutional: Denies: chills, fever. Cardiovascular: Denies: chest pain. Respiratory: Denies: short of breath. Gastrointestinal: Denies: abdominal pain. Skin: Reports: lesions (left leg). Objective Last 24 Hrs of Vital Signs/I&O Vital Signs Date Time Temp Pulse Resp B/P Pulse O2 O2 Flow FiO2 Ox Delivery Rate 07/17 0139 97.4 94 18 140/88 95 Room Air 07/17 0000 Room Air 07/16 2156 80 142/72 07/16 1615 97.6 86 18 118/84 95 Room Air 07/16 1600 95 Room Air 07/16 1307 97.9 80 18 126/68 94 Room Air 07/16 0839 97.0 98 20 122/62 92 Room Air 07/16 0800 93 Room Air Intake & Output 07/17 0800 07/17 0000 07/16 1600 Intake Total 240 600 951 Output Total 250 Balance -10 600 951 Intake, Blood 1 Product Intake, IV 50 Intake, Oral 240 600 900 Number 6 3 3 Bowel Movements Output, Urine 250 Patient 163 lb Weight Vital Signs Date Time Temp Pulse Resp B/P Pulse O2 O2 Flow FiO2 Ox Delivery Rate 07/17 0139 97.4 94 18 140/88 95 Room Air 07/17 0000 Room Air 07/16 2156 80 142/72 07/16 1615 97.6 86 18 118/84 95 Room Air 07/16 1600 95 Room Air 07/16 1307 97.9 80 18 126/68 94 Room Air 07/16 0839 97.0 98 20 122/62 92 Room Air 07/16 0800 93 Room Air Intake & Output 07/17 0800 07/17 0000 07/16 1600 Intake Total 240 600 951 Output Total 250 Balance -10 600 951 Intake, Blood 1 Product Intake, IV 50 Intake, Oral 240 600 900 Number 6 3 3 Bowel Movements Output, Urine 250 Patient 163 lb Weight Physical Exam General Appearance: alert, awake, comfortable Head: normal appearance Neck: normal inspection Respiratory: normal breath sounds Cardiovascular: regular rate/rhythm Extremities: left lower leg bandaged Current Medications: Current Medications Sig/Kailash Start time Last Medication Dose Route Stop Time Status Admin Acetaminophen 500 MG Q6P PRN 07/02 0815 AC 07/17 PO 0027 Aspirin 81 MG DAILY 07/01 1000 AC 07/16 PO 1008 Atorvastatin Calcium 40 MG 1700 06/30 1700 AC 07/16 PO 1620 Carvedilol 25 MG BID 06/30 2200 AC 07/16 PO 2156 Ceftazidime 1,000 MG 2000 07/16 1600 AC 07/16 IV 1621 Diphenoxylate HCl/ 2.5 MG TID PRN 07/16 1200 AC 07/16 Atropine PO 1246 Epoetin Ludwig 3,000 UNIT MoWeFr PRN 07/08 1200 AC IV Epoetin Ludwig 2,000 UNIT MoWeFr PRN 07/08 1200 AC IV Insulin Aspart 0 TIDAC/HS 06/30 2100 AC 07/16 SC 1700 Insulin Detemir 4 UNITS DAILY 07/11 1000 AC 07/16 SC 1008 Iron Sucrose 100 MG PER PROTOCL PRN 07/01 1430 AC 07/03 Sodium Chloride 100 ML IV 1221 Isosorbide 30 MG DAILY 07/09 1056 AC 07/16 Mononitrate PO 1008 Multivitamins 1 TAB DAILY 07/01 1000 AC 07/16 PO 1008 Omeprazole 40 MG DAILY AC 07/14 0700 AC 07/17 PO 0531 Oxycodone/ 2 TAB Q6P PRN 07/11 2230 AC 07/16 Acetaminophen PO 2203 Prednisone 7.5 MG DAILY 07/14 1000 AC 07/16 PO 1008 Sevelamer Carbonate 800 MG WITH MEALS 06/30 1200 AC 07/16 PO 1700 Sodium Chloride 1,000 ML Q20H 07/15 0515 DC 07/16 IV 0115 Sodium Chloride 2 SPRAY Q10MIN PRN 07/12 0230 AC CARLITOS Sodium Hypochlorite 1 CHAITANYA BID 07/05 1113 AC 07/16 TOP 2157 Tamsulosin HCl 0.4 MG DAILY 07/01 1000 AC 07/16 PO 1008 Vancomycin HCl 1 MG Q24 PRN 07/15 1415 AC Sodium Chloride 1 ML IV Vitamin A/Vitamin D 1 CHAITANYA BID 06/30 2200 07/16 TOP 2157 Zinc Oxide 1 CHAITANYA BID 06/30 2200 07/16 TOP 215
[2016-07-17 09:32] VITALS: BP 130/64
--- NOTE | 2016-07-17 11:00 | NUR ---
NURSING NOTE: PT OFF FLOOR TO DIALYSIS VIA BED
--- NOTE | 2016-07-17 11:40 | PN- Infect Dx ---
Subjective Subjective: Afebrile. He feels well today with no complaints at present. He does note cough, with white/clear phlegm, but no shortness of breath or chest discomfort. Objective Last 24 Hrs of Vital Signs/I&O Vital Signs Date Time Temp Pulse Resp B/P Pulse O2 O2 Flow FiO2 Ox Delivery Rate 07/17 0932 97.4 75 18 130/64 97 07/17 0730 97.4 75 18 134/64 97 07/17 0139 97.4 94 18 140/88 95 Room Air 07/17 0000 Room Air 07/16 2156 80 142/72 07/16 1615 97.6 86 18 118/84 95 Room Air 07/16 1600 95 Room Air 07/16 1307 97.9 80 18 126/68 94 Room Air Intake & Output 07/17 1600 07/17 0800 07/17 0000 Intake Total 240 600 Output Total 250 Balance -10 600 Intake, Oral 240 600 Number 6 3 Bowel Movements Output, Urine 250 Patient 163 lb Weight Physical Exam Other Physical Findings: He appears comfortable in no acute distress Chest tunnelled catheter in the right upper chest with no inflammation at the site Lungs decreased breath sounds both bases Heart regular rhythm with no murmur Extremities left calf dressing intact Results Last 24 Hours of Lab Results: Laboratory Tests 07/17 0845 Toxicology Vancomycin Trough (10.0 - 20.0 ug/mL) 12.7 Last 24 Hours of Avtar Results: Blood cultures July 16 negative Assessment/Plan Impression: Appears improved with no further fevers and with white blood cell count remaining normal now on Ceftazidime Day 3 of treatment for possible pneumonia, with recent chest x-ray revealing new patchy opacities in the right lung. His left leg necrotic lesion remains a concern, with persistent pain, worsening necrosis of the wound and now discoloration of the left foot, suggesting ongoing ischemia, with Vascular surgery comments noted. Candiduria noted, but suspect this represents colonization. At this point the role of Vancomycin is unclear, now 16 days status post excisional debridement of the left leg necrotic wound, and feel this can be discontinued. Suggestion: 1. Discontinue Vancomycin 2. Continue Ceftazidime 1 g IV every 24 hours, with change to Ciprofloxacin 500 mg po every 24 hours if remains stable
[2016-07-17 12:12] LABS: ABSOLUTE BASOPHIL COUNT 0 /CUMM (0.0-0.2); ABSOLUTE EOSINOPHIL COUNT 0.2 /CUMM (0.0-0.7); ABSOLUTE GRANULOCYTE CT 3.2 /CUMM (1.4-6.5); ABSOLUTE LYMPH COUNT 0.7 /CUMM (1.2-3.4); ABSOLUTE MONOCYTE COUNT 0.6 /CUMM (0.10-0.60); BASOPHIL % 0.1 % (0.0-2.0); EOSINOPHIL % 4.2 % (0-5); GRANULOCYTE % 68.3 % (42.2-75.2); HEMATOCRIT 27.5 % (42-52); MEAN CORPUSCULAR HGB 28.4 PG (27.0-31.0); MEAN CORPUSCULAR HGB CONC 31.9 G/DL (33.0-37.0); MEAN PLATELET VOLUME 9.9 FL (7.4-10.4); PLATELET COUNT 230 /CUMM (130-400); RBC DISTRIBUTION WIDTH 18.3 % (11.5-14.5); RED BLOOD CELL CT 3.08 /CUMM (4.70-6.10); WHITE BLOOD CELL COUNT 4.7 /CUMM (4.8-10.8)
--- NOTE | 2016-07-17 12:15 | PN- Nephrology ---
Assessment/Plan Assessment: 1. ESRD likely secondary to diabetic nephropathy 2. Recent fevers - now afebrile; WBC remains normal; blood pressures improved; possible sources include his left leg and pulmonary infection. Now on ceftazidime alone, vanco discontinued. Dialysis catheter remains in place. 3. Diabetes mellitus with peripheral vascular disease status post right TMA, status post debridement left leg/ankle ulcer 4. Anemia - on Epogen and IV Venofer 5. Antiphospholipid antibody syndrome status post DVT Suggestion: 1. Hemodialysis today in progress with 2-3L ultrafiltration over 3.25 hours as tolerated; receiving his fifth dose of IV Venofer (of planned 10 doses) today with dialysis; next hemodialysis for Thursday 07/19 2. Antibiotic therapy per ID 3. Vascular surgery, podiatry and wound service following Subjective Subjective: Patient had diarrhea this morning. He continues to have pain in the left leg region. Seen with hemodialysis which is currently in progress. Today's labs pending. Will check URR. Objective Vital Signs and I&Os Vital Signs Date Time Temp Pulse Resp B/P Pulse O2 O2 Flow FiO2 Ox Delivery Rate 07/17 0932 97.4 75 18 130/64 97 07/17 0730 97.4 75 18 134/64 97 07/17 0139 97.4 94 18 140/88 95 Room Air 07/17 0000 Room Air 07/16 2156 80 142/72 07/16 1615 97.6 86 18 118/84 95 Room Air 07/16 1600 95 Room Air 07/16 1307 97.9 80 18 126/68 94 Room Air Intake & Output 07/17 1600 07/17 0400 07/16 1600 07/16 0400 07/15 1600 07/15 0400 Intake Total 431 723 7915 200 270 50 Output Total 250 100 Balance -10 600 1351 200 270 -50 Intake, Blood 1 Product Intake, IV 450 200 270 Intake, Oral 240 600 900 0 50 Number 6 3 4 1 Bowel Movements Output, Urine 250 100 Patient 163 lb 160 lb 157 lb Weight Physical Exam: General: Well-developed white male in NAD Skin: No rash or jaundice HEENT: Conjunctivae pink, sclerae anicteric, mucous membranes moist Neck: Without masses or thyromegaly, no supraclavicular or cervical adenopathy; there is a right IJ tunneled dialysis catheter in place Chest: Scattered rhonchi anterolaterally Heart: Regular rate and rhythm without S3 or rub Abdomen: Soft and nontender without palpable masses or organomegaly Extremities: Lower extremity dressing intact, trace-1+ edema on left Neuro: No focal findings, no asterixis or myoclonus Current Medications: Current Medications Sig/Kailash Start time Last Medication Dose Route Stop Time Status Admin Acetaminophen 500 MG Q6P PRN 07/02 0815 AC 07/17 PO 0027 Aspirin 81 MG DAILY 07/01 1000 AC 07/16 PO 1008 Atorvastatin Calcium 40 MG 1700 06/30 1700 AC 07/16 PO 1620 Carvedilol 25 MG BID 06/30 2200 AC 07/16 PO 2156 Ceftazidime 1,000 MG 2000 07/16 1600 AC 07/16 IV 1621 Diphenoxylate HCl/ 2.5 MG TID PRN 07/16 1200 AC 07/16 Atropine PO 1246 Epoetin Ludwig 3,000 UNIT MoWeFr PRN 07/08 1200 AC IV Epoetin Ludwig 2,000 UNIT MoWeFr PRN 07/08 1200 AC IV Insulin Aspart 0 TIDAC/HS 06/30 2100 AC 07/17 SC 0902 Insulin Detemir 4 UNITS DAILY 07/11 1000 AC 07/17 SC 0935 Iron Sucrose 100 MG PER PROTOCL PRN 07/01 1430 AC 07/03 Sodium Chloride 100 ML IV 1221 Isosorbide 30 MG DAILY 07/09 1056 AC 07/16 Mononitrate PO 1008 Multivitamins 1 TAB DAILY 07/01 1000 AC 07/16 PO 1008 Omeprazole 40 MG DAILY AC 07/14 0700 AC 07/17 PO 0531 Oxycodone/ 2 TAB Q6P PRN 07/11 2230 AC 07/17 Acetaminophen PO 0946 Prednisone 7.5 MG DAILY 07/14 1000 AC 07/16 PO 1008 Sevelamer Carbonate 800 MG WITH MEALS 06/30 1200 AC 07/17 PO 0901 Sodium Chloride 2 SPRAY Q10MIN PRN 07/12 0230 AC CARLITOS Sodium Hypochlorite 1 CHAITANYA BID 07/05 1113 AC 07/17 TOP 0936 Tamsulosin HCl 0.4 MG DAILY 07/01 1000 AC 07/16 PO 1008 Vancomycin HCl 750 MG ONCE ONE 07/17 1215 AC Sodium Chloride 250 ML IV 07/17 1314 Vancomycin HCl 1 MG Q24 PRN 07/15 1415 DC Sodium Chloride 1 ML IV Vitamin A/Vitamin D 1 CHAITANYA BID 06/30 2200 AC 07/17 TOP 0901 Zinc Oxide 1 CHAITANYA BID 06/30 2200 07/17 TOP 0900 Results Pertinent Lab Results: Laboratory Tests 07/17 07/17 1145 0845 Chemistry Sodium Pending Potassium Pending Chloride Pending Carbon Dioxide Pending Anion Gap Pending BUN Pending Creatinine Pending BUN/Creatinine Ratio Pending Calcium Pending Phosphorus Pending Magnesium Pending Albumin Pending Coagulation PT Pending INR Pending Hematology CBC w Diff NO MAN DIFF REQ WBC (4.8 - 10.8 /CUMM) 4.7 L RBC (4.70 - 6.10 /CUMM) 3.08 L Hgb (14.0 - 18.0 G/DL) 8.8 L Hct (42 - 52 %) 27.5 L MCV (80.0 - 94.0 FL) 89.0 MCH (27.0 - 31.0 PG) 28.4 RDW (11.5 - 14.5 %) 18.3 H Plt Count (130 - 400 /CUMM) 230 MPV (7.4 - 10.4 FL) 9.9 Gran % (42.2 - 75.2 %) 68.3 Lymphocytes % (20.5 - 51.1 %) 14.5 L Monocytes % (1.7 - 9.3 %) 12.9 H Eosinophils % (0 - 5 %) 4.2 Basophils % (0.0 - 2.0 %) 0.1 Absolute Granulocytes (1.4 - 6.5 /CUMM) 3.2 Absolute Lymphocytes (1.2 - 3.4 /CUMM) 0.7 L Absolute Monocytes (0.10 - 0.60 /CUMM) 0.6 Absolute Eosinophils (0.0 - 0.7 /CUMM) 0.2 Absolute Basophils (0.0 - 0.2 /CUMM) 0 PUBS MCHC (33.0 - 37.0 G/DL) 31.9 L Toxicology Vancomycin Trough (10.0 - 20.0 ug/mL) 12.7 07/16 07/15 0606 0930 Chemistry Sodium (137 - 145 mmol/L) 136 L Potassium (3.5 - 5.1 mmol/L) 4.3 Chloride (98 - 107 mmol/L) 102 Carbon Dioxide (22 - 30 mmol/L) 25 Anion Gap (5 - 16) 10 BUN (9 - 20 mg/dL) 41 H Creatinine (0.7 - 1.2 mg/dL) 3.9 H Estimated GFR (>60 ml/min) 15 L BUN/Creatinine Ratio (7 - 25 %) 10.5 Coagulation PT (9.4 - 12.5 SEC) 47.6 *H 38.2 H INR (0.90 - 1.17) 4.60 *H 3.69 H Hematology CBC w Diff NO MAN DIFF REQ NO MAN DIFF REQ WBC (4.8 - 10.8 /CUMM) 5.6 6.4 RBC (4.70 - 6.10 /CUMM) 2.58 L 2.71 L Hgb (14.0 - 18.0 G/DL) 7.3 *L 7.8 L Hct (42 - 52 %) 23.3 L 24.4 L MCV (80.0 - 94.0 FL) 90.3 90.0 MCH (27.0 - 31.0 PG) 28.4 28.6 RDW (11.5 - 14.5 %) 19.2 H 19.0 H Plt Count (130 - 400 /CUMM) 183 160 MPV (7.4 - 10.4 FL) 9.7 10.5 H Gran % (42.2 - 75.2 %) 75.6 H 76.9 H Lymphocytes % (20.5 - 51.1 %) 9.7 L 8.9 L Monocytes % (1.7 - 9.3 %) 13.5 H 11.9 H Eosinophils % (0 - 5 %) 1.0 1.9 Basophils % (0.0 - 2.0 %) 0.2 0.4 Absolute Granulocytes (1.4 - 6.5 /CUMM) 4.2 4.9 Absolute Lymphocytes (1.2 - 3.4 /CUMM) 0.5 L 0.6 L Absolute Monocytes (0.10 - 0.60 /CUMM) 0.8 H 0.8 H Absolute Eosinophils (0.0 - 0.7 /CUMM) 0.1 0.1 Absolute Basophils (0.0 - 0.2 /CUMM) 0 0 PUBS MCHC (33.0 - 37.0 G/DL) 31.5 L 31.8 L Toxicology Random Vancomycin (ug/ml) 20.3 12/19 0030 Urines Urine Color (YEL,AMB,STR) YEL Urine Clarity (CLEAR) TURBD H Urine pH (5.0 - 8.0) 6.0 Ur Specific [place] (1.001 - 1.035) 1.025 Urine Protein (NEG,<30 MG/DL) 100 H Urine Ketones (NEG) NEG Urine Nitrite (NEG) NEG Urine Bilirubin (NEG) NEG Urine Urobilinogen (0.1 - 1.0 EU/dl) 0.2 Ur Leukocyte Esterase (NEG) LARGE H Ur Microscopic SEDIMENT EXAMINED Urine WBC (0 - 2 /HPF) PACKD H Urine Hemoglobin (NEG) LARGE H Urine Glucose (N MG/DL) 100 H
--- NOTE | 2016-07-17 16:00 | NUR ---
NURSING NOTE: PATIENT ARRIVED FROM DIALYSIS WITH DISTRIBUTION. PATIENT FOUND IN BED WITH MATTRESS LEFT UNPLUGGED, MATTRESS DEFLATED. CHART LEFT IN PATIENTS ROOM. SURPERVISOR NOTIFIED. VSS. WILL CONTINUE TO MONITOR.
[2016-07-17 16:27] VITALS: BP 122/62
[2016-07-18 00:23] VITALS: BP 130/64
[2016-07-18 07:50] LABS: ABSOLUTE BASOPHIL COUNT 0 /CUMM (0.0-0.2); ABSOLUTE EOSINOPHIL COUNT 0.1 /CUMM (0.0-0.7); ABSOLUTE GRANULOCYTE CT 3.4 /CUMM (1.4-6.5); ABSOLUTE LYMPH COUNT 0.6 /CUMM (1.2-3.4); ABSOLUTE MONOCYTE COUNT 0.8 /CUMM (0.10-0.60); BASOPHIL % 0.5 % (0.0-2.0); EOSINOPHIL % 1.6 % (0-5); GRANULOCYTE % 69.7 % (42.2-75.2); HEMATOCRIT 26.6 % (42-52); MEAN CORPUSCULAR HGB 28.7 PG (27.0-31.0); MEAN CORPUSCULAR HGB CONC 32.2 G/DL (33.0-37.0); MEAN CORPUSCULAR VOLUME 89.2 FL (80.0-94.0); MEAN PLATELET VOLUME 9.8 FL (7.4-10.4); PLATELET COUNT 257 /CUMM (130-400); RBC DISTRIBUTION WIDTH 18.4 % (11.5-14.5); RED BLOOD CELL CT 2.99 /CUMM (4.70-6.10); WHITE BLOOD CELL COUNT 4.8 /CUMM (4.8-10.8)
[2016-07-18 08:24] VITALS: BP 110/64
[2016-07-18 08:27] LABS: PT 56.3 SEC (9.4-12.5)
--- NOTE | 2016-07-18 11:01 | PN- Housestaff ---
ESTELA HEATH,[facility] 07/18/16 1101: Subjective Follow-up For: Left lower leg non healing ulcer acute blood loss anemia Subjective: Patient seen and examined this morning. He was drowsy but oriented. MAXIMUM TEMPERATURE overnight 100.1, there vitals within normal limits. Continues to have pain in the left lower extremity. Review of Systems Constitutional: Denies: chills, fever. Cardiovascular: Denies: chest pain, palpitations. Respiratory: Reports: cough, sputum production. Denies: hemoptysis. Gastrointestinal: Reports: diarrhea. Denies: abdominal pain, constipation, nausea, vomiting. Objective Last 24 Hrs of Vital Signs/I&O Vital Signs Date Time Temp Pulse Resp B/P Pulse O2 O2 Flow FiO2 Ox Delivery Rate 07/18 08 98.6 97 18 110/64 94 Room Air 07/18 0800 94 Room Air 07/18 0023 98.3 82 20 130/64 97 07/17 1627 100.1 119 20 122/62 91 Room Air 07/17 1624 122/62 07/17 1624 122/62 Intake & Output 07/18 1600 07/18 0800 07/18 0000 Intake Total 100 1300 Output Total Balance 100 1300 Intake, Oral 100 1300 Number 1 Bowel Movements Patient 69.57 kg Weight Physical Exam General Appearance: Oriented X3, drowsy Cardiovascular: Regular Rate, Normal S1, Normal S2, No Murmurs Lungs: coarse basal breath sounds b/l Abdomen: Normal Bowel Sounds, Soft, No Tenderness Extremities: left lower ext non healing ulcer Current Medications: Current Medications Sig/Kailash Start time Last Medication Dose Route Stop Time Status Admin Acetaminophen 500 MG Q6P PRN 07/02 0815 AC 07/17 PO 0027 Aspirin 81 MG DAILY 07/01 1000 AC 07/18 PO 0906 Atorvastatin Calcium 40 MG 1700 06/30 1700 AC 07/17 PO 1623 Carvedilol 25 MG BID 06/30 2200 AC 07/18 PO 0906 Ceftazidime 1,000 MG 2000 07/16 1600 AC 07/17 IV 2037 Diphenoxylate HCl/ 2.5 MG TID PRN 07/16 1200 AC 07/18 Atropine PO 0906 Epoetin Ludwig 3,000 UNIT MoWeFr PRN 07/08 1200 AC IV Epoetin Ludwig 2,000 UNIT MoWeFr PRN 07/08 1200 AC IV Guaifenesin 600 MG Q12 07/18 1000 AC 07/18 PO 1159 Insulin Aspart 0 TIDAC/HS 06/30 2100 AC 07/18 SC 0905 Insulin Detemir 4 UNITS DAILY 07/11 1000 AC 07/18 SC 0905 Iron Sucrose 100 MG PER PROTOCL PRN 07/01 1430 AC 07/03 Sodium Chloride 100 ML IV 1221 Isosorbide 30 MG DAILY 07/09 1056 AC 07/18 Mononitrate PO 0906 Multivitamins 1 TAB DAILY 07/01 1000 AC 07/18 PO 0906 Omeprazole 40 MG DAILY AC 07/14 0700 AC 07/18 PO 0710 Oxycodone/ 2 TAB Q6P PRN 07/11 2230 AC 07/18 Acetaminophen PO 1159 Patient Medication 1 ED .STK-MED ONE 07/17 1355 MO Teaching ED 07/17 1356 Prednisone 7.5 MG DAILY 07/14 1000 AC 07/18 PO 0906 Sevelamer Carbonate 800 MG WITH MEALS 06/30 1200 AC 07/18 PO 0906 Sodium Chloride 2 SPRAY Q10MIN PRN 07/12 0230 AC CARLITOS Sodium Hypochlorite 1 CHAITANYA BID 07/05 1113 AC 07/18 TOP 1100 Tamsulosin HCl 0.4 MG DAILY 07/01 1000 AC 07/18 PO 0906 Vitamin A/Vitamin D 1 CHAITANYA BID 06/30 2200 AC 07/18 TOP 0905 Zinc Oxide 1 CHAITANYA BID 06/30 2200 07/18 TOP 0905 Last 24 Hrs of Lab/Avtar Results Last 24 Hrs of Labs/Mics: Laboratory Tests 07/18/16 0630: PT 56.3 *H, INR 5.45 *H, CBC w Diff NO MAN DIFF REQ, RBC 2.99 L, MCV 89.2, MCH 28.7, RDW 18.4 H, MPV 9.8, Gran % 69.7, Lymphocytes % 12.3 L, Monocytes % 15.9 H, Eosinophils % 1.6, Basophils % 0.5, Absolute Granulocytes 3.4, Absolute Lymphocytes 0.6 L, Absolute Monocytes 0.8 H, Absolute Eosinophils 0.1, Absolute Basophils 0, PUBS MCHC 32.2 L 07/17/16 1500: Assessment/Plan Assessment: 75 y/o M with PMHx of antiphospholipid antibody syndrome, diabetes and CKD who presented with SOB, hoarseness and stridor, found to be uremic with initiation of HD, s/p debridement of chronic left leg ulcer, on IV vancomycin for soft tissue infection, currently awaiting outpatient dialysis slot. Pneumonia: Likely aspiration PNA, CXR showed rt middle lobe opacity Currently on Ceftazidime (VANCOMYCIN STOPPED)for anaerobic and gram negative coverage overnight fever spike to 100.1F, will continue to monitor ID following, will follow recs Anemia : Etiology multifactorial . H&H dropped to 7.4 , patient transfused 1 unit of packed red blood cells ,post transfusion hgb 8.8>>8.6. GI consulted , earlier in the week dose of prednisone was decreased from 10 mg to 7.[address] Acevedo did not recommend any additional intervention at this time and suggested that anemia likely secondary to other causes then GI. Will have patient follow-up with GI as an outpatient. We'll continue iron supplementation and Epogen. Chest Pain: Resolved. On 07/09 patient had chest pain, ekg-no acute changes. Troponins elevated at 0.14. patient was transferred to telemetry floor for continuous cardiac monitoring, cardiology on board repeat troponin trended down. Chronic left lower extremity ulcer: Has chronic nonhealing ulcers of left leg for which he sees Dr. Pretty as outpatient. S/p excisional debridement through the subcutaneous and muscular tissue with reported seropurulent drainage (06/30) and OR cultures growing diphthteroids and coag-negative Staph. Although these are not typically pathogenic organisms, currently on IV vancomycin for possible soft tissue infection.Wound appears improved, however patient complains of severe pain concerning for ischemia. * ID following * Vancomycin completed * Vascular surgery consulted again. no intervention suggested * Will consult of plans of possible debridment Antiphospholipid antibody syndrome: chronic right upper extremity DVT. On life- long anti-coagulation with warfarin, takes 5 mg PO QD. * Continue to check INR daily and dose warfarin accordingly to keep INR between 2-3. INR supra therapeutic, once therapeutic will dose at 2.5mg daily. ESRD: Cr was 5 on admission, with gradual increase from 2-3 within the past year. Most likely etiology is progressive diabetic nephropathy. Mj cath was placed and urgent hemodialysis was initiated (06/26) with improvement of mental status. Patient is currently awaiting outpatient dialysis slot. * Nephrology following * Continue HD MW * No PICC lines should be inserted per Nephrology, as patient will need vein site for placement of graft. * Continue sevelamer 800 mg PO TIDAC. * Continue daily Nephrocaps T2DM: Uncontrolled blood sugars this admission, secondary to steroids. * Endocrinology following * Levemir 4U SQ DAILY * Continue NovoLog SSI TIDAC as suggested HTN: Takes amlodipine 10 mg PO QD, carvedilol 25 mg PO BID, furosemide 80 mg PO BID and hydralazine 50 mg PO BID at home. * Holding home amlodipine, furosemide and hydralazine. * Continue home carvedilol. Crohn's disease: Patient has been taking prednisone 10 mg PO QD for many years to prevent flares. * prednisone dose 7.5 mg daily. As per recommendations from GI and tapering for 2 weeks as tolerated. * Aspirin GI, the patient to remain on aspirin, Protonix needed to be added. * C diff was added to rule out C diff toxin infection. Blood cultures were sent. Diet: Renal Dialysis Diet (regular and nectar thick liquids) DVT PPx: Warfarin and ALPs CODE: FULL Problem List: 1. Crohns disease 2. Pneumonia 3. Antiphospholipid antibody syndrome 4. Supratherapeutic INR Pain Ratin Pain Location: none Pain Goal: Remain pain free Pain Plan: percocet Tomorrow's Labs & Rationales: inr for Coumadin dosing cbc for H&H monitoring HARRY MORRIS MD 07/18/16 1633: Attending MD Review Statement Attending Statement Attending MD Statement: examined this patient, discuss w/resident/PA/[employer]CH[employer]IAN, agreed w/resident/PA/[employer]CHN[employer]IAN, reviewed EMR data (avail), discussed with nursing, discussed with case mgmt, amended to note Attending Assessment/Plan: Patient seen and examined. Resting comfortably not in acute distress. Hemodynamically stable and afebrile. No issues overnight. He was able drowsy this morning just after waking up one mental status improved. His hemoglobin level appears to be stable. Case was discussed with the vascular surgery service and there are plans for further debridement of his lower extremity. If his hemoglobin level continues to be stable we will consider discharge to residential facility for short-term rehabilitation. Unfortunately at this time it is unclear how he'll be transported back and forth hemodialysis from the [facility]. His INR remains supratherapeutic. We'll continue to hold his Coumadin. His Coumadin dose will have to be decreased significantly once his INR becomes therapeutic.
--- NOTE | 2016-07-18 13:01 | PN- Diabetes ---
Assessment/Plan Assessment: The patient is drowsy today possibly secondary to pain meds. He still complains of pain in his left leg. The patient continues on dialysis. Levemir was decreased to 4 units daily. His prednisone has been been adjusted to 7.5 mg once a day in the morning. Patient's blood sugars today are 147 before breakfast and one 27 before lunch. The patient's fever has declined. Plan: Suggests continue the present insulin. His blood sugars are in a satisfactory range. Subjective Subjective: patient is drowsy Objective Last 24 Hrs of Vital Signs/I&O Vital Signs Date Time Temp Pulse Resp B/P Pulse O2 O2 Flow FiO2 Ox Delivery Rate 07/18 0824 98.6 97 18 110/64 94 Room Air 07/18 0800 94 Room Air 07/18 0023 98.3 82 20 130/64 97 07/17 1627 100.1 119 20 122/62 91 Room Air 07/17 1624 122/62 07/17 1624 122/62 Intake & Output 07/18 1600 07/18 0800 07/18 0000 Intake Total 100 1300 Output Total Balance 100 1300 Intake, Oral 100 1300 Number 1 Bowel Movements Patient 153 lb Weight Vital Signs Date Time Temp Pulse Resp B/P Pulse O2 O2 Flow FiO2 Ox Delivery Rate 07/18 0824 98.6 97 18 110/64 94 Room Air 07/18 0800 94 Room Air 07/18 0023 98.3 82 20 130/64 97 07/17 1627 100.1 119 20 122/62 91 Room Air 07/17 1624 122/62 07/17 1624 122/62 Intake & Output 07/18 1600 07/18 0800 07/18 0000 Intake Total 100 1300 Output Total Balance 100 1300 Intake, Oral 100 1300 Number 1 Bowel Movements Patient 153 lb Weight Physical Exam General Appearance: lethargic Head: normal appearance Neck: normal inspection Current Medications: Current Medications Sig/Kailash Start time Last Medication Dose Route Stop Time Status Admin Acetaminophen 500 MG Q6P PRN 07/02 0815 AC 07/17 PO 0027 Aspirin 81 MG DAILY 07/01 1000 AC 07/18 PO 0906 Atorvastatin Calcium 40 MG 1700 06/30 1700 AC 07/17 PO 1623 Carvedilol 25 MG BID 06/30 2200 AC 07/18 PO 0906 Ceftazidime 1,000 MG 2000 07/16 1600 AC 07/17 IV 2037 Diphenoxylate HCl/ 2.5 MG TID PRN 07/16 1200 AC 07/18 Atropine PO 0906 Epoetin Ludwig 3,000 UNIT MoWeFr PRN 07/08 1200 AC IV Epoetin Ludwig 2,000 UNIT MoWeFr PRN 07/08 1200 AC IV Guaifenesin 600 MG Q12 07/18 1000 AC 07/18 PO 1159 Insulin Aspart 0 TIDAC/HS 06/30 2100 AC 07/18 SC 0905 Insulin Detemir 4 UNITS DAILY 07/11 1000 AC 07/18 SC 0905 Iron Sucrose 100 MG PER PROTOCL PRN 07/01 1430 AC 07/03 Sodium Chloride 100 ML IV 1221 Isosorbide 30 MG DAILY 07/09 1056 AC 07/18 Mononitrate PO 0906 Multivitamins 1 TAB DAILY 07/01 1000 AC 07/18 PO 0906 Omeprazole 40 MG DAILY AC 07/14 0700 AC 07/18 PO 0710 Oxycodone/ 2 TAB Q6P PRN 07/11 2230 AC 07/18 Acetaminophen PO 1159 Patient Medication 1 ED .STK-MED ONE 07/17 1355 DC Teaching ED 07/17 1356 Prednisone 7.5 MG DAILY 07/14 1000 AC 07/18 PO 0906 Sevelamer Carbonate 800 MG WITH MEALS 06/30 1200 AC 07/18 PO 0906 Sodium Chloride 2 SPRAY Q10MIN PRN 07/12 0230 AC CARLITOS Sodium Hypochlorite 1 CHAITANYA BID 07/05 1113 AC 07/18 TOP 1100 Tamsulosin HCl 0.4 MG DAILY 07/01 1000 AC 07/18 PO 0906 Vitamin A/Vitamin D 1 CHAITANYA BID 06/30 2200 AC 07/18 TOP 0905 Zinc Oxide 1 CHAITANYA BID 06/30 2200 AC 07/18 TOP 0905 Findings Pertinent Lab/Avtar Results: Laboratory Tests 07/18 07/17 0630 1500 Chemistry BUN (9 - 20 mg/dL) 9 Coagulation PT (9.4 - 12.5 SEC) 56.3 *H INR (0.90 - 1.17) 5.45 *H Hematology CBC w Diff NO MAN DIFF REQ WBC (4.8 - 10.8 /CUMM) 4.8 RBC (4.70 - 6.10 /CUMM) 2.99 L Hgb (14.0 - 18.0 G/DL) 8.6 L Hct (42 - 52 %) 26.6 L MCV (80.0 - 94.0 FL) 89.2 MCH (27.0 - 31.0 PG) 28.7 RDW (11.5 - 14.5 %) 18.4 H Plt Count (130 - 400 /CUMM) 257 MPV (7.4 - 10.4 FL) 9.8 Gran % (42.2 - 75.2 %) 69.7 Lymphocytes % (20.5 - 51.1 %) 12.3 L Monocytes % (1.7 - 9.3 %) 15.9 H Eosinophils % (0 - 5 %) 1.6 Basophils % (0.0 - 2.0 %) 0.5 Absolute Granulocytes (1.4 - 6.5 /CUMM) 3.4 Absolute Lymphocytes (1.2 - 3.4 /CUMM) 0.6 L Absolute Monocytes (0.10 - 0.60 /CUMM) 0.8 H Absolute Eosinophils (0.0 - 0.7 /CUMM) 0.1 Absolute Basophils (0.0 - 0.2 /CUMM) 0 PUBS MCHC (33.0 - 37.0 G/DL) 32.2 L
[2016-07-18 16:00] VITALS: BP 130/63
[2016-07-19 00:40] VITALS: BP 132/74
[2016-07-19 08:13] LABS: ABSOLUTE BASOPHIL COUNT 0 /CUMM (0.0-0.2); ABSOLUTE EOSINOPHIL COUNT 0.2 /CUMM (0.0-0.7); ABSOLUTE GRANULOCYTE CT 4.2 /CUMM (1.4-6.5); ABSOLUTE LYMPH COUNT 0.7 /CUMM (1.2-3.4); ABSOLUTE MONOCYTE COUNT 0.9 /CUMM (0.10-0.60); BASOPHIL % 0.7 % (0.0-2.0); EOSINOPHIL % 2.8 % (0-5); GRANULOCYTE % 70.6 % (42.2-75.2); HEMATOCRIT 31.2 % (42-52); MEAN CORPUSCULAR HGB 28.9 PG (27.0-31.0); MEAN CORPUSCULAR HGB CONC 32.1 G/DL (33.0-37.0); MEAN CORPUSCULAR VOLUME 89.9 FL (80.0-94.0); PLATELET COUNT 324 /CUMM (130-400); RBC DISTRIBUTION WIDTH 18.6 % (11.5-14.5); RED BLOOD CELL CT 3.47 /CUMM (4.70-6.10)
[2016-07-19 08:26] LABS: PT 30.7 SEC (9.4-12.5)
--- NOTE | 2016-07-19 08:33 | PN- Housestaff ---
ESTELA HEATH,[facility] 07/19/16 0833: Subjective Follow-up For: Left lower leg non healing ulcer acute blood loss anemia Subjective: Patient seen and examined this morning. He was drowsy but oriented. vitals within normal limits. Continues to have pain in the left lower extremity, no other complaints or concerns. Review of Systems Constitutional: Denies: chills, fever. Cardiovascular: Denies: chest pain, palpitations. Respiratory: Reports: cough, sputum production. Gastrointestinal: Reports: diarrhea. Denies: abdominal pain, constipation, nausea, vomiting. Objective Last 24 Hrs of Vital Signs/I&O Vital Signs Date Time Temp Pulse Resp B/P Pulse O2 O2 Flow FiO2 Ox Delivery Rate 07/19 0934 99 136/58 07/19 0933 99 136/58 07/19 0933 99 136/58 07/19 0924 98.2 99 18 136/58 95 Room Air 07/19 0040 97.7 88 19 132/74 92 Room Air 07/18 1600 97.4 90 19 130/63 91 Room Air 07/18 1503 Room Air Room Air Intake & Output 07/19 1600 07/19 0800 07/19 0000 Intake Total 800 Output Total Balance 800 Intake, Oral 800 Number 1 5 Bowel Movements Physical Exam General Appearance: Alert, Oriented X3, Cooperative, No Acute Distress Cardiovascular: Regular Rate, Normal S1, Normal S2, No Murmurs Lungs: course basal bilateral breath sounds Abdomen: Normal Bowel Sounds, Soft, No Tenderness Extremities: left lower leg nonhealing ulcer Current Medications: Current Medications Sig/Kailash Start time Last Medication Dose Route Stop Time Status Admin Acetaminophen 500 MG Q6P PRN 07/02 0815 AC 07/18 PO 1555 Aspirin 81 MG DAILY 07/01 1000 AC 07/19 PO 0932 Atorvastatin Calcium 40 MG 1700 06/30 1700 AC 07/18 PO 1800 Carvedilol 25 MG BID 06/30 2200 AC 07/19 PO 0934 Ceftazidime 1,000 MG 2000 07/16 1600 AC 07/18 IV 07/19 2355 1920 Diphenoxylate HCl/ 2.5 MG TID PRN 07/16 1200 AC 07/18 Atropine PO 1800 Epoetin Ludwig 3,000 UNIT MoWeFr PRN 07/08 1200 AC IV Epoetin Ludwig 2,000 UNIT MoWeFr PRN 07/08 1200 AC IV Guaifenesin 600 MG Q12 07/18 1000 AC 07/19 PO 0933 Insulin Aspart 0 TIDAC/HS 06/30 2100 AC 07/19 SC 0800 Insulin Detemir 4 UNITS DAILY 07/11 1000 AC 07/19 SC 0930 Iron Sucrose 100 MG PER PROTOCL PRN 07/01 1430 AC 07/03 Sodium Chloride 100 ML IV 1221 Isosorbide 30 MG DAILY 07/09 1056 AC 07/19 Mononitrate PO 0933 Multivitamins 1 TAB DAILY 07/01 1000 AC 07/19 PO 0935 Omeprazole 40 MG DAILY AC 07/14 0700 AC 07/19 PO 0538 Oxycodone/ 2 TAB Q6P PRN 07/11 2230 AC 07/19 Acetaminophen PO 1014 Prednisone 7.5 MG DAILY 07/14 1000 AC 07/19 PO 0935 Sevelamer Carbonate 800 MG WITH MEALS 06/30 1200 AC 07/19 PO 0800 Sodium Chloride 2 SPRAY Q10MIN PRN 07/12 0230 AC CARLITOS Sodium Hypochlorite 1 CHAITANYA BID 07/05 1113 AC 07/19 TOP 0936 Tamsulosin HCl 0.4 MG DAILY 07/01 1000 AC 07/19 PO 0933 Vitamin A/Vitamin D 1 CHAITANYA BID 06/30 2200 AC 07/19 TOP 0937 Zinc Oxide 1 CHAITANYA BID 06/30 2200 07/19 TOP 0936 Last 24 Hrs of Lab/[facility] Results Last 24 Hrs of Labs/Mics: Laboratory Tests 07/19/16 1219: Anion Gap 12, Estimated GFR 19 L, BUN/Creatinine Ratio 7.8 07/19/16 0715: PT 30.7 H, INR 2.96 H, CBC w Diff NO MAN DIFF REQ, RBC 3.47 L, MCV 89.9, MCH 28.9, RDW 18.6 H, MPV 9.0, Gran % 70.6, Lymphocytes % 10.9 L, Monocytes % 15.0 H, Eosinophils % 2.8, Basophils % 0.7, Absolute Granulocytes 4.2, Absolute Lymphocytes 0.7 L, Absolute Monocytes 0.9 H, Absolute Eosinophils 0.2, Absolute Basophils 0, PUBS MCHC 32.1 L Assessment/Plan Assessment: 75 y/o M with PMHx of antiphospholipid antibody syndrome, diabetes and CKD who presented with SOB, hoarseness and stridor, found to be uremic with initiation of HD, s/p debridement of chronic left leg ulcer, on IV vancomycin for soft tissue infection, currently awaiting outpatient dialysis slot. Pneumonia: Likely aspiration PNA, CXR showed rt middle lobe opacity Patient to get last dose of Ceftazidime today, vancomycin course completed, will follow-up of antibiotics Overnight no fevers, will continue to monitor ID following, will follow recs Anemia : Etiology multifactorial . H&H dropped to 7.4 , patient transfused 1 unit of packed red blood cells ,post transfusion hgb 8.8>>8.6>>10. GI consulted , earlier in the week dose of prednisone was decreased from 10 mg to 7.[address] Acevedo did not recommend any additional intervention at this time and suggested that anemia likely secondary to other causes then GI. Will have patient follow-up with GI as an outpatient. We'll continue iron supplementation and Epogen. Chest Pain: Resolved. On 07/09 patient had chest pain, ekg-no acute changes. Troponins elevated at 0.14. patient was transferred to telemetry floor for continuous cardiac monitoring, cardiology on board repeat troponin trended down. Chronic left lower extremity ulcer: Has chronic nonhealing ulcers of left leg for which he sees Dr. Pretty as outpatient. S/p excisional debridement through the subcutaneous and muscular tissue with reported seropurulent drainage (06/30) and OR cultures growing diphthteroids and coag-negative Staph. Although these are not typically pathogenic organisms, currently on IV vancomycin for possible soft tissue infection.Wound appears improved, however patient complains of severe pain concerning for ischemia. * ID following * Vancomycin completed * Vascular surgery consulted again. no intervention suggested * Will consult of plans of possible debridment Antiphospholipid antibody syndrome: chronic right upper extremity DVT. On life- long anti-coagulation with warfarin, takes 5 mg PO QD. * Continue to check INR daily and dose warfarin accordingly to keep INR between 2-3. INR supra therapeutic, once therapeutic will dose at 2.5mg daily. ESRD: Cr was 5 on admission, with gradual increase from 2-3 within the past year. Most likely etiology is progressive diabetic nephropathy. Mj cath was placed and urgent hemodialysis was initiated (06/26) with improvement of mental status. Patient is currently awaiting outpatient dialysis slot. * Nephrology following * Continue HD MW * No PICC lines should be inserted per Nephrology, as patient will need vein site for placement of graft. * Continue sevelamer 800 mg PO TIDAC. * Continue daily Nephrocaps T2DM: Uncontrolled blood sugars this admission, secondary to steroids. * Endocrinology following * Levemir 4U SQ DAILY * Continue NovoLog SSI TIDAC as suggested HTN: Takes amlodipine 10 mg PO QD, carvedilol 25 mg PO BID, furosemide 80 mg PO BID and hydralazine 50 mg PO BID at home. * Holding home amlodipine, furosemide and hydralazine. * Continue home carvedilol. Crohn's disease: Patient has been taking prednisone 10 mg PO QD for many years to prevent flares. * prednisone dose 7.5 mg daily. As per recommendations from GI and tapering for 2 weeks as tolerated. * Aspirin GI, the patient to remain on aspirin, Protonix needed to be added. * C diff was added to rule out C diff toxin infection. Blood cultures were sent. Diet: Renal Dialysis Diet (regular and nectar thick liquids) DVT PPx: Warfarin and ALPs CODE: FULL Problem List: 1. Cellulitis of leg, excluding foot 2. Crohns disease 3. Pneumonia 4. Antiphospholipid antibody syndrome 5. Left leg cellulitis Pain Ratin Pain Location: Left lower leg Pain Goal: Remain pain free Pain Plan: Percocet Tomorrow's Labs & Rationales: INR for daily dosing ARTURO HEATH,HARRY 07/19/16 1706: Attending MD Review Statement Attending Statement Attending MD Statement: examined this patient, discuss w/resident/PA/PATIENT SERVICES REPRESENTATIVE, agreed w/resident/PA/PATIENT SERVICES REPRESENTATIVE, reviewed EMR data (avail), discussed with nursing, discussed with case mgmt, amended to note Attending Assessment/Plan: Patient seen and examined. Mildly confused this morning just after waking up. Mental status usually improves as the day progresses. He has remained afebrile and hemodynamically stable. His left lower extremity has not undergone any significant healing so far. He still has extensive area of necrosis and open areas in the left leg. He has some discoloration on the plantar aspect of the left foot. His was discussed again with vascular surgery service, they are recommending any interventions at present. Recommendations: -Patient is currently awaiting a bed at a [facility] facility that would be able to provide transportation to his dialysis center. -The ID service has raised the option of considering evaluation by another vascular surgery service possibly for amputation of the left lower extremity as adequate wound healing does not appear to be according. Patient currently has extensive necrosis of the lower extremity however no evidence of active infection. We'll follow-up with the patient's and vascular surgery prior to discharge regarding plans for long-term care. -Ceftaz will be discontinued after today's dose per recommendations of the ID service. -Continue to hold Coumadin until INR trends below 2.9. Reduce dose of Coumadin to 2.5 mg daily when resumed.
--- NOTE | 2016-07-19 08:59 | PN- Diabetes ---
Assessment/Plan Assessment: The patient is drowsy today possibly secondary to pain meds. He still complains of pain in his left leg. The patient continues on dialysis. Levemir was decreased to 4 units daily. His prednisone has been been adjusted to 7.5 mg once a day in the morning. The patient's fever has declined. Fingerstick blood sugars yesterday were 147 before breakfast 127 before lunch 79 before dinner and 161 at bedtime. This morning his fingerstick blood sugar is 175. Plan: Suggest continue the present insulin. Subjective Subjective: Still pain left leg Objective Last 24 Hrs of Vital Signs/I&O Vital Signs Date Time Temp Pulse Resp B/P Pulse O2 O2 Flow FiO2 Ox Delivery Rate 07/19 0040 97.7 88 19 132/74 92 Room Air 07/18 1600 97.4 90 19 130/63 91 Room Air 07/18 1503 Room Air Room Air Intake & Output 07/19 1600 07/19 0800 07/19 0000 Intake Total 800 Output Total Balance 800 Intake, Oral 800 Number 1 5 Bowel Movements Vital Signs Date Time Temp Pulse Resp B/P Pulse O2 O2 Flow FiO2 Ox Delivery Rate 07/19 0040 97.7 88 19 132/74 92 Room Air 07/18 1600 97.4 90 19 130/63 91 Room Air 07/18 1503 Room Air Room Air Intake & Output 07/19 1600 07/19 0800 07/19 0000 Intake Total 800 Output Total Balance 800 Intake, Oral 800 Number 1 5 Bowel Movements Physical Exam General Appearance: lethargic Head: normal appearance Neck: normal inspection Abdomen: normal bowel sounds Current Medications: Current Medications Sig/Kailash Start time Last Medication Dose Route Stop Time Status Admin Acetaminophen 500 MG Q6P PRN 07/02 0815 AC 07/18 PO 1555 Aspirin 81 MG DAILY 07/01 1000 AC 07/18 PO 0906 Atorvastatin Calcium 40 MG 1700 06/30 1700 AC 07/18 PO 1800 Carvedilol 25 MG BID 06/30 2200 AC 07/18 PO 2246 Ceftazidime 1,000 MG 2000 07/16 1600 AC 07/18 IV 1920 Diphenoxylate HCl/ 2.5 MG TID PRN 07/16 1200 AC 07/18 Atropine PO 1800 Epoetin Ludwig 3,000 UNIT MoWeFr PRN 07/08 1200 AC IV Epoetin Ludwig 2,000 UNIT MoWeFr PRN 07/08 1200 AC IV Guaifenesin 600 MG Q12 07/18 1000 AC 07/18 PO 2246 Insulin Aspart 0 TIDAC/HS 06/30 2100 AC 07/18 SC 1343 Insulin Detemir 4 UNITS DAILY 07/11 1000 AC 07/18 SC 0905 Iron Sucrose 100 MG PER PROTOCL PRN 07/01 1430 AC 07/03 Sodium Chloride 100 ML IV 1221 Isosorbide 30 MG DAILY 07/09 1056 AC 07/18 Mononitrate PO 0906 Multivitamins 1 TAB DAILY 07/01 1000 AC 07/18 PO 0906 Omeprazole 40 MG DAILY AC 07/14 0700 AC 07/19 PO 0538 Oxycodone/ 2 TAB Q6P PRN 07/11 2230 AC 07/18 Acetaminophen PO 1800 Prednisone 7.5 MG DAILY 07/14 1000 AC 07/18 PO 0906 Sevelamer Carbonate 800 MG WITH MEALS 06/30 1200 AC 07/18 PO 1800 Sodium Chloride 2 SPRAY Q10MIN PRN 07/12 0230 AC CARLITOS Sodium Hypochlorite 1 CHAITANYA BID 07/05 1113 AC 07/18 TOP 2247 Tamsulosin HCl 0.4 MG DAILY 07/01 1000 AC 07/18 PO 0906 Vitamin A/Vitamin D 1 CHAITANYA BID 06/30 2200 AC 07/18 TOP 2247 Zinc Oxide 1 CHAITANYA BID 06/30 2200 AC 07/18 TOP 2247 Findings Pertinent Lab/[facility] Results: Laboratory Tests 07/19/16 0715: PT 30.7 H, INR 2.96 H, CBC w Diff NO MAN DIFF REQ, RBC 3.47 L, MCV 89.9, MCH 28.9, RDW 18.6 H, MPV 9.0, Gran % 70.6, Lymphocytes % 10.9 L, Monocytes % 15.0 H, Eosinophils % 2.8, Basophils % 0.7, Absolute Granulocytes 4.2, Absolute Lymphocytes 0.7 L, Absolute Monocytes 0.9 H, Absolute Eosinophils 0.2, Absolute Basophils 0, PUBS MCHC 32.1 L
[2016-07-19 09:24] VITALS: BP 136/58
--- NOTE | 2016-07-19 10:55 | PN- Nephrology ---
Assessment/Plan Assessment: 1. ESRD: HD scheduled later today 2. Leg ulcer: continue antibiotics Suggestion: HD again Mon Subjective Subjective: Awake - feels poorly C/O pain L leg Objective Vital Signs and I&Os Vital Signs Date Time Temp Pulse Resp B/P Pulse O2 O2 Flow FiO2 Ox Delivery Rate 07/19 0934 99 136/58 07/19 0933 99 136/58 07/19 0933 99 136/58 07/19 0924 98.2 99 18 136/58 95 Room Air 07/19 0040 97.7 88 19 132/74 92 Room Air 07/18 1600 97.4 90 19 130/63 91 Room Air 07/18 1503 Room Air Room Air Intake & Output 07/19 1600 07/19 0400 07/18 1600 07/18 0400 07/17 1600 07/17 0400 Intake Total 014 435 3350 840 600 Output Total 150 450 Balance 945 226 9104 390 600 Intake, IV 10 Intake, Oral 520 669 8802 840 600 Number 1 5 0 1 8 3 Bowel Movements Output, Urine 150 450 Patient 153 lb 163 lb Weight Physical Exam General Appearance: awake Head: atraumatic, normal appearance Neck: R IJ tunneled HD cath Respiratory: decreased breath sounds, poor effort Cardiovascular: regular rate/rhythm, friction rub (none) Abdomen: soft, non-tender Extremities: L leg ulcer Neurologic/Psychiatric: awake Current Medications: Current Medications Sig/Kailash Start time Last Medication Dose Route Stop Time Status Admin Acetaminophen 500 MG Q6P PRN 07/02 0815 AC 07/18 PO 1555 Aspirin 81 MG DAILY 07/01 1000 AC 07/19 PO 0932 Atorvastatin Calcium 40 MG 1700 06/30 1700 AC 07/18 PO 1800 Carvedilol 25 MG BID 06/30 2200 AC 07/19 PO 0934 Ceftazidime 1,000 MG 2000 07/16 1600 AC 07/18 IV 1920 Diphenoxylate HCl/ 2.5 MG TID PRN 07/16 1200 AC 07/18 Atropine PO 1800 Epoetin Ludwig 3,000 UNIT MoWeFr PRN 07/08 1200 AC IV Epoetin Ludwig 2,000 UNIT MoWeFr PRN 07/08 1200 AC IV Guaifenesin 600 MG Q12 07/18 1000 AC 07/19 PO 0933 Insulin Aspart 0 TIDAC/HS 06/30 2100 AC 07/19 SC 0800 Insulin Detemir 4 UNITS DAILY 07/11 1000 AC 07/19 SC 0930 Iron Sucrose 100 MG PER PROTOCL PRN 07/01 1430 AC 07/03 Sodium Chloride 100 ML IV 1221 Isosorbide 30 MG DAILY 07/09 1056 AC 07/19 Mononitrate PO 0933 Multivitamins 1 TAB DAILY 07/01 1000 AC 07/19 PO 0935 Omeprazole 40 MG DAILY AC 07/14 0700 AC 07/19 PO 0538 Oxycodone/ 2 TAB Q6P PRN 07/11 2230 AC 07/19 Acetaminophen PO 1014 Prednisone 7.5 MG DAILY 07/14 1000 AC 07/19 PO 0935 Sevelamer Carbonate 800 MG WITH MEALS 06/30 1200 AC 07/19 PO 0800 Sodium Chloride 2 SPRAY Q10MIN PRN 07/12 0230 AC CARLITOS Sodium Hypochlorite 1 CHAITANYA BID 07/05 1113 AC 07/19 TOP 0936 Tamsulosin HCl 0.4 MG DAILY 07/01 1000 AC 07/19 PO 0933 Vitamin A/Vitamin D 1 CHAITANYA BID 06/30 2200 07/19 TOP 0937 Zinc Oxide 1 CHAITANYA BID 06/30 2200 07/19 TOP 0936 Results Pertinent Lab Results: Laboratory Tests 07/19 07/18 0715 0630 Coagulation PT (9.4 - 12.5 SEC) 30.7 H 56.3 *H INR (0.90 - 1.17) 2.96 H 5.45 *H Hematology CBC w Diff NO MAN DIFF REQ NO MAN DIFF REQ WBC (4.8 - 10.8 /CUMM) 6.0 4.8 RBC (4.70 - 6.10 /CUMM) 3.47 L 2.99 L Hgb (14.0 - 18.0 G/DL) 10.0 L 8.6 L Hct (42 - 52 %) 31.2 L 26.6 L MCV (80.0 - 94.0 FL) 89.9 89.2 MCH (27.0 - 31.0 PG) 28.9 28.7 RDW (11.5 - 14.5 %) 18.6 H 18.4 H Plt Count (130 - 400 /CUMM) 324 257 MPV (7.4 - 10.4 FL) 9.0 9.8 Gran % (42.2 - 75.2 %) 70.6 69.7 Lymphocytes % (20.5 - 51.1 %) 10.9 L 12.3 L Monocytes % (1.7 - 9.3 %) 15.0 H 15.9 H Eosinophils % (0 - 5 %) 2.8 1.6 Basophils % (0.0 - 2.0 %) 0.7 0.5 Absolute Granulocytes (1.4 - 6.5 /CUMM) 4.2 3.4 Absolute Lymphocytes (1.2 - 3.4 /CUMM) 0.7 L 0.6 L Absolute Monocytes (0.10 - 0.60 /CUMM) 0.9 H 0.8 H Absolute Eosinophils (0.0 - 0.7 /CUMM) 0.2 0.1 Absolute Basophils (0.0 - 0.2 /CUMM) 0 0 PUBS MCHC (33.0 - 37.0 G/DL) 32.1 L 32.2 L 07/17 07/17 07/17 1500 1145 0845 Chemistry Sodium (137 - 145 mmol/L) 137 Potassium (3.5 - 5.1 mmol/L) 4.1 Chloride (98 - 107 mmol/L) 99 Carbon Dioxide (22 - 30 mmol/L) 27 Anion Gap (5 - 16) 10 BUN (9 - 20 mg/dL) 9 30 H Creatinine (0.7 - 1.2 mg/dL) 3.2 H Estimated GFR (>60 ml/min) 19 L BUN/Creatinine Ratio (7 - 25 %) 9.4 Calcium (8.4 - 10.2 mg/dL) 8.0 L Phosphorus (2.5 - 4.5 mg/dL) 2.7 Magnesium (1.6 - 2.3 mg/dL) 1.6 Albumin (3.5 - 5.0 g/dL) 2.4 L Coagulation PT (9.4 - 12.5 SEC) 67.0 *H INR (0.90 - 1.17) 6.50 *H Hematology CBC w Diff NO MAN DIFF REQ WBC (4.8 - 10.8 /CUMM) 4.7 L RBC (4.70 - 6.10 /CUMM) 3.08 L Hgb (14.0 - 18.0 G/DL) 8.8 L Hct (42 - 52 %) 27.5 L MCV (80.0 - 94.0 FL) 89.0 MCH (27.0 - 31.0 PG) 28.4 RDW (11.5 - 14.5 %) 18.3 H Plt Count (130 - 400 /CUMM) 230 MPV (7.4 - 10.4 FL) 9.9 Gran % (42.2 - 75.2 %) 68.3 Lymphocytes % (20.5 - 51.1 %) 14.5 L Monocytes % (1.7 - 9.3 %) 12.9 H Eosinophils % (0 - 5 %) 4.2 Basophils % (0.0 - 2.0 %) 0.1 Absolute Granulocytes (1.4 - 6.5 /CUMM) 3.2 Absolute Lymphocytes (1.2 - 3.4 /CUMM) 0.7 L Absolute Monocytes (0.10 - 0.60 /CUMM) 0.6 Absolute Eosinophils (0.0 - 0.7 /CUMM) 0.2 Absolute Basophils (0.0 - 0.2 /CUMM) 0 PUBS MCHC (33.0 - 37.0 G/DL) 31.9 L Toxicology Vancomycin Trough (10.0 - 20.0 ug/mL) 12.7 07/17 0600 Hematology CBC w Diff Cancelled WBC Cancelled RBC Cancelled Hgb Cancelled Hct Cancelled MCV Cancelled MCH Cancelled RDW Cancelled Plt Count Cancelled MPV Cancelled PUBS MCHC Cancelled Imaging/Other Studies: CXR: Increased prominence of patchy right mid lung airspace opacities as well as decrease in prominence of patchy left lower lobe airspace opacities.
--- NOTE | 2016-07-19 11:20 | PN- Infect Dx ---
Subjective Subjective: Afebrile. He complains of severe pain in the left leg. He also complains of shortness of breath and persistent cough with no chest pain. He also complains of right heel pain. Objective Last 24 Hrs of Vital Signs/I&O Vital Signs Date Time Temp Pulse Resp B/P Pulse O2 O2 Flow FiO2 Ox Delivery Rate 07/19 0934 99 136/58 07/19 0933 99 136/58 07/19 0933 99 136/58 07/19 0924 98.2 99 18 136/58 95 Room Air 07/19 0040 97.7 88 19 132/74 92 Room Air 07/18 1600 97.4 90 19 130/63 91 Room Air 07/18 1503 Room Air Room Air Intake & Output 07/19 1600 07/19 0800 07/19 0000 Intake Total 800 Output Total Balance 800 Intake, Oral 800 Number 1 5 Bowel Movements Physical Exam Other Physical Findings: He appears uncomfortable in moderate distress secondary to pain Chest tunneled catheter in the right upper chest with no inflammation at the site Lungs bibasilar crackles Extremities left calf necrotic ulcer, exquisitely tender to palpation, with no surrounding erythema; right heel erythema Results Last 24 Hours of Lab Results: Laboratory Tests 07/19 0715 Coagulation PT (9.4 - 12.5 SEC) 30.7 H INR (0.90 - 1.17) 2.96 H Hematology CBC w Diff NO MAN DIFF REQ WBC (4.8 - 10.8 /CUMM) 6.0 RBC (4.70 - 6.10 /CUMM) 3.47 L Hgb (14.0 - 18.0 G/DL) 10.0 L Hct (42 - 52 %) 31.2 L MCV (80.0 - 94.0 FL) 89.9 MCH (27.0 - 31.0 PG) 28.9 RDW (11.5 - 14.5 %) 18.6 H Plt Count (130 - 400 /CUMM) 324 MPV (7.4 - 10.4 FL) 9.0 Gran % (42.2 - 75.2 %) 70.6 Lymphocytes % (20.5 - 51.1 %) 10.9 L Monocytes % (1.7 - 9.3 %) 15.0 H Eosinophils % (0 - 5 %) 2.8 Basophils % (0.0 - 2.0 %) 0.7 Absolute Granulocytes (1.4 - 6.5 /CUMM) 4.2 Absolute Lymphocytes (1.2 - 3.4 /CUMM) 0.7 L Absolute Monocytes (0.10 - 0.60 /CUMM) 0.9 H Absolute Eosinophils (0.0 - 0.7 /CUMM) 0.2 Absolute Basophils (0.0 - 0.2 /CUMM) 0 PUBS MCHC (33.0 - 37.0 G/DL) 32.1 L Last 24 Hours of [facility]tar Results: Blood cultures July 16 negative Assessment/Plan Impression: Severe left leg pain persists with overall worsening necrosis of the left leg wound, likely secondary to underlying arterial insufficiency despite the report of a negative angiogram as an outpatient several weeks prior to admission. He remaines afebrile with white blood cell count normal on Ceftazidime Day 5 of treatment for possible pneumonia, with recent chest x-ray revealing new patchy opacities in the right lung. Candiduria noted, but suspect this represents colonization. Suggestion: 1. Vascular surgery reevaluation for further evaluation/management of his left leg wound and of his left leg vascular status (for example angiogram) 2. Would consider transfer to [place] for further evaluation if no plans for further workup here 3. Attention to right heel 4. Re-dose with Ceftazidime 1 g IV today after dialysis; would then follow off antibiotics
[2016-07-19 16:45] VITALS: BP 134/72
[2016-07-20 00:42] VITALS: BP 140/76
--- NOTE | 2016-07-20 07:37 | NUR ---
LATE ENTRY: WOUND DSG CHANGED. PT STABLE OVERNIGHT. WILL CONTINUE TO MONITOR.
[2016-07-20 08:24] VITALS: BP 102/53
--- NOTE | 2016-07-20 08:41 | PN- Housestaff ---
VINCENZO HEATH,GE 07/20/16 0840: Subjective Follow-up For: Left lower leg non healing ulcer acute blood loss anemia Subjective: No acute events overnight. Patient seen and examined this morning. He offers no complaints. Left leg pain is well-controlled. Patient was hypotensive to 102/53 this AM. Imdur, Coreg and tamsulosin were held. Review of Systems Constitutional: Denies: chills, fever. Cardiovascular: Denies: chest pain. Respiratory: Denies: short of breath. Gastrointestinal: Denies: abdominal pain, constipation, diarrhea, nausea, vomiting. Objective Last 24 Hrs of Vital Signs/I&O Vital Signs Date Time Temp Pulse Resp B/P Pulse O2 O2 Flow FiO2 Ox Delivery Rate 07/20 1603 98.1 60 20 98/58 95 07/20 1151 90 102/53 07/20 1148 90 102/53 07/20 1146 90 102/53 07/20 0824 98.4 90 20 102/53 95 Room Air 07/20 0042 98.2 89 20 140/76 99 07/19 2249 82 134/72 07/19 2248 86 132/72 Intake & Output 07/20 1600 07/20 0800 07/20 0000 Intake Total 720 250 120 Output Total Balance 720 250 120 Intake, Oral 720 250 120 Number 4 3 Bowel Movements Patient 70.76 kg Weight Physical Exam General Appearance: Alert, Oriented X3, No Acute Distress HEENT: Mucous Membr. moist/pink Cardiovascular: Regular Rate, Normal S1, Normal S2 Lungs: Diminished Breath Sounds, Bibasilar Crackles Abdomen: Soft, No Tenderness, Positive Bowel Sounds Extremities: No Clubbing, No Cyanosis, Necrotic Ulcer on Left Calf, Without Surrounding Erythema Current Medications: Current Medications Sig/Kailash Start time Last Medication Dose Route Stop Time Status Admin Acetaminophen 500 MG Q6P PRN 07/02 0815 AC 07/18 PO 1555 Aspirin 81 MG DAILY 07/01 1000 AC 07/20 PO 1109 Atorvastatin Calcium 40 MG 1700 06/30 1700 AC 07/20 PO 1700 Carvedilol 25 MG BID 06/30 2200 AC 07/19 PO 2249 Ceftazidime 1,000 MG 2000 07/16 1600 DC 07/19 IV 07/19 2355 2049 Diphenoxylate HCl/ 2.5 MG TID PRN 07/16 1200 AC 07/18 Atropine PO 1800 Epoetin Ludwig 3,000 UNIT MoWeFr PRN 07/08 1200 AC IV Epoetin Ludwig 2,000 UNIT MoWeFr PRN 07/08 1200 AC IV Guaifenesin 600 MG Q12 07/18 1000 AC 07/20 PO 1110 Insulin Aspart 0 TIDAC/HS 06/30 2100 AC 07/20 SC 1850 Insulin Detemir 4 UNITS DAILY 07/11 1000 AC 07/20 SC 1000 Iron Sucrose 100 MG PER PROTOCL PRN 07/01 1430 AC 07/03 Sodium Chloride 100 ML IV 1221 Isosorbide 30 MG DAILY 07/09 1056 AC 07/19 Mononitrate PO 0933 Multivitamins 1 TAB DAILY 07/01 1000 AC 07/20 PO 1110 Omeprazole 40 MG DAILY AC 07/14 0700 AC 07/20 PO 0610 Oxycodone/ 2 TAB Q6P PRN 07/11 2230 AC 07/20 Acetaminophen PO 1955 Prednisone 7.5 MG DAILY 07/14 1000 AC 07/20 PO 1110 Sevelamer Carbonate 800 MG WITH MEALS 06/30 1200 AC 07/20 PO 1700 Sodium Chloride 2 SPRAY Q10MIN PRN 07/12 0230 AC CARLITOS Sodium Hypochlorite 1 CHAITANYA BID 07/05 1113 AC 07/20 TOP 1000 Tamsulosin HCl 0.4 MG DAILY 07/01 1000 AC 07/19 PO 0933 Vitamin A/Vitamin D 1 CHAITANYA BID 06/30 2200 AC 07/20 TOP 1105 Warfarin Sodium 2.5 MG COUMADIN 1700 ONE 07/20 1700 DC 07/20 PO 07/20 1701 1700 Zinc Oxide 1 CHAITANYA BID 06/30 2200 AC 07/20 TOP 1000 Last 24 Hrs of Lab/Avtar Results Last 24 Hrs of Labs/Mics: Laboratory Tests 07/20/16 0620: PT 21.0 H, INR 2.01 H Assessment/Plan Assessment: 75 y/o M with PMHx of antiphospholipid antibody syndrome, diabetes and CKD who presented with SOB, hoarseness and stridor, found to be uremic with initiation of HD, s/p debridement of chronic left leg ulcer, on IV vancomycin for soft tissue infection, currently awaiting outpatient dialysis slot. Pneumonia: Likely aspiration PNA, CXR showed rt middle lobe opacity Patient completed 5-day course of ceftazidime (07/15-07/19) yesterday. Will monitor off antibiotics. Overnight no fevers, will continue to monitor ID following, will follow recs Anemia : Etiology multifactorial . H&H dropped to 7.4 , patient transfused 1 unit of packed red blood cells ,post transfusion hgb 8.8>>8.6>>10. GI consulted , earlier in the week dose of prednisone was decreased from 10 mg to 7.[address] Acevedo did not recommend any additional intervention at this time and suggested that anemia likely secondary to other causes then GI. Will have patient follow-up with GI as an outpatient. We'll continue iron supplementation and Epogen. Chest Pain: Resolved. On 07/09 patient had chest pain, ekg-no acute changes. Troponins elevated at 0.14. patient was transferred to telemetry floor for continuous cardiac monitoring, cardiology on board repeat troponin trended down. Chronic left lower extremity ulcer: Has chronic nonhealing ulcers of left leg for which he sees Dr. Pretty as outpatient. S/p excisional debridement through the subcutaneous and muscular tissue with reported seropurulent drainage (06/30) and OR cultures growing diphthteroids and coag-negative Staph. Although these are not typically pathogenic organisms, currently on IV vancomycin for possible soft tissue infection.Wound appears improved, however patient complains of severe pain concerning for ischemia. * ID following * Vancomycin completed * Vascular surgery consulted again. no intervention suggested * Will consult of plans of possible debridment Antiphospholipid antibody syndrome: chronic right upper extremity DVT. On life- long anti-coagulation with warfarin, takes 5 mg PO QD. * Continue to check INR daily and dose warfarin accordingly to keep INR between 2-3. * INR 2.01 today. Will administer 2.5 mg of warfarin today. ESRD: Cr was 5 on admission, with gradual increase from 2-3 within the past year. Most likely etiology is progressive diabetic nephropathy. Mj cath was placed and urgent hemodialysis was initiated (06/26) with improvement of mental status. Patient is currently awaiting outpatient dialysis slot. * Nephrology following * Continue HD MW * No PICC lines should be inserted per Nephrology, as patient will need vein site for placement of graft. * Continue sevelamer 800 mg PO TIDAC. * Continue daily Nephrocaps T2DM: Uncontrolled blood sugars this admission, secondary to steroids. * Endocrinology following * Levemir 4U SQ DAILY * Continue NovoLog SSI TIDAC as suggested HTN: Takes amlodipine 10 mg PO QD, carvedilol 25 mg PO BID, furosemide 80 mg PO BID and hydralazine 50 mg PO BID at home. * Holding home amlodipine, furosemide and hydralazine. * Continue home carvedilol. Crohn's disease: Patient has been taking prednisone 10 mg PO QD for many years to prevent flares. * prednisone dose 7.5 mg daily. As per recommendations from GI and tapering for 2 weeks as tolerated. * Aspirin GI, the patient to remain on aspirin, Protonix needed to be added. * C diff was added to rule out C diff toxin infection. Blood cultures were sent. Diet: Renal Dialysis Diet (regular and nectar thick liquids) DVT PPx: Warfarin and ALPs CODE: FULL Problem List: 1. Cellulitis of leg, excluding foot 2. Crohns disease 3. Pneumonia 4. Antiphospholipid antibody syndrome Pain Ratin Pain Location: Left leg Pain Goal: Remain pain free Pain Plan: Tylenol 500 mg PO Q6H PRN for moderate pain (scale 4-6) Percocet 2 tabs PO Q6H PRN for severe pain (scale 7-10) Tomorrow's Labs & Rationales: CBC to monitor H/H in the setting of anemia INR to adjust warfarin dosing [facility] 07/20/16 1227: Attending MD Review Statement Attending Statement Attending MD Statement: examined this patient, discuss w/resident/PA/SLOT MACHINE FLOOR PERSON, agreed w/resident/PA/SLOT MACHINE FLOOR PERSON, discussed with family, reviewed EMR data (avail), reviewed images Attending Assessment/Plan: 72 year old male with past medical history significant for end-stage renal disease on hemodialysis, chronic right upper extremity DVT secondary to antiphospholipid antibody syndrome presented with shortness of breath secondary to fluid overload. Patient was seen and examined on the parathyroid this morning and was having his breakfast and did not complain of any acute medical issues. Vitals stable, afebrile, labs reviewed. ID is on board for evaluation and management of his left leg wound for which the patient has recently completed course of antibiotics. Was consider surgery does not has any recommendations on any interventions for now. Patient likely would get his dialysis today and is currently waiting for a bed at a custodial facility. Would continue the rest of his medical treatment.
[2016-07-20 16:03] VITALS: BP 98/58
[2016-07-21 00:08] VITALS: BP 114/98
--- NOTE | 2016-07-21 02:18 | NUR ---
LATE ENTRY: WOUND DSG CHANGED
--- NOTE | 2016-07-21 07:02 | NUR ---
PT HAD 3 LOOSE BOWEL MOVEMENTS OVERNIGHT. #[id number] MADE AWARE. PT WITH HX OF CROHN'S REPORTS THIS IS HIS NORMAL PATTERN.
[2016-07-21 08:00] LABS: ABSOLUTE BASOPHIL COUNT 0 /CUMM (0.0-0.2); ABSOLUTE EOSINOPHIL COUNT 0.2 /CUMM (0.0-0.7); ABSOLUTE GRANULOCYTE CT 3.7 /CUMM (1.4-6.5); ABSOLUTE LYMPH COUNT 0.8 /CUMM (1.2-3.4); ABSOLUTE MONOCYTE COUNT 1.2 /CUMM (0.10-0.60); BASOPHIL % 0.2 % (0.0-2.0); EOSINOPHIL % 3.1 % (0-5); GRANULOCYTE % 62.9 % (42.2-75.2); HEMATOCRIT 30.2 % (42-52); MEAN CORPUSCULAR HGB 28.6 PG (27.0-31.0); MEAN CORPUSCULAR HGB CONC 31.8 G/DL (33.0-37.0); MEAN CORPUSCULAR VOLUME 90.1 FL (80.0-94.0); MEAN PLATELET VOLUME 8.6 FL (7.4-10.4); PLATELET COUNT 414 /CUMM (130-400); RBC DISTRIBUTION WIDTH 18.4 % (11.5-14.5); RED BLOOD CELL CT 3.36 /CUMM (4.70-6.10); WHITE BLOOD CELL COUNT 5.9 /CUMM (4.8-10.8)
[2016-07-21 08:05] VITALS: BP 130/82
--- NOTE | 2016-07-21 08:48 | PN- Housestaff ---
MAURISIO HEATH,HARMEET 07/21/16 0847: Subjective Follow-up For: Left lower leg non healing ulcer acute blood loss anemia Subjective: Patient seen and examined at bedside. No acute events overnight. Resting comfortably in bed with no complaints. Left leg pain is well-controlled. HDS. Review of Systems Constitutional: Reports: see HPI. Objective Last 24 Hrs of Vital Signs/I&O Vital Signs Date Time Temp Pulse Resp B/P Pulse O2 O2 Flow FiO2 Ox Delivery Rate 07/21 0805 97.5 85 20 130/82 95 Room Air 07/21 0008 97.8 96 19 114/98 91 Room Air 07/20 210 103 126/58 07/20 1603 98.1 60 20 98/58 95 Intake & Output 07/21 1600 07/21 0800 07/21 0000 Intake Total 360 360 Output Total Balance 360 360 Intake, Oral 360 360 Number 3 Bowel Movements Patient 70.477 kg Weight Physical Exam General Appearance: Alert, Cooperative, No Acute Distress Other Physical Findings: HEENT: Mucous Membr. moist/pink Cardiovascular: Regular Rate, Normal S1, Normal S2 Lungs: Diminished Breath Sounds, Bibasilar Crackles Abdomen: Soft, No Tenderness, Positive Bowel Sounds Extremities: No Clubbing, No Cyanosis, Necrotic Ulcer on Left Calf, Without Surrounding Erythema Current Medications: Current Medications Sig/Kailash Start time Last Medication Dose Route Stop Time Status Admin Acetaminophen 500 MG Q6P PRN 07/02 0815 AC 07/18 PO 1555 Aspirin 81 MG DAILY 07/01 1000 AC 07/20 PO 1109 Atorvastatin Calcium 40 MG 1700 06/30 1700 AC 07/20 PO 1700 Carvedilol 25 MG BID 06/30 2200 AC 07/20 PO 2102 Diphenoxylate HCl/ 2.5 MG TID PRN 07/16 1200 AC 07/18 Atropine PO 1800 Epoetin Ludwig 3,000 UNIT MoWeFr PRN 07/08 1200 AC IV Epoetin Ludwig 2,000 UNIT MoWeFr PRN 07/08 1200 AC IV Guaifenesin 600 MG Q12 07/18 1000 AC 07/20 PO 2102 Insulin Aspart 0 TIDAC/HS 06/30 2100 AC 07/21 SC 0804 Insulin Detemir 4 UNITS DAILY 07/11 1000 AC 07/20 SC 1000 Iron Sucrose 100 MG PER PROTOCL PRN 07/01 1430 AC 07/03 Sodium Chloride 100 ML IV 1221 Isosorbide 30 MG DAILY 07/09 1056 AC 07/19 Mononitrate PO 0933 Multivitamins 1 TAB DAILY 07/01 1000 AC 07/20 PO 1110 Omeprazole 40 MG DAILY AC 07/14 0700 AC 07/21 PO 0549 Oxycodone/ 2 TAB Q6P PRN 07/11 2230 AC 07/21 Acetaminophen PO 0338 Prednisone 7.5 MG DAILY 07/14 1000 AC 07/20 PO 1110 Sevelamer Carbonate 800 MG WITH MEALS 06/30 1200 AC 07/21 PO 0805 Sodium Chloride 2 SPRAY Q10MIN PRN 07/12 0230 AC CARLITOS Sodium Hypochlorite 1 CHAITANYA BID 07/05 1113 AC 07/20 TOP 210 Tamsulosin HCl 0.4 MG DAILY 07/01 1000 AC 07/19 PO 0933 Vitamin A/Vitamin D 1 CHAITANYA BID 06/30 2200 AC 07/20 TOP 210 Warfarin Sodium 2.5 MG COUMADIN 1700 ONE 07/20 1700 DC 07/20 PO 07/20 1701 1700 Zinc Oxide 1 CHAITANYA BID 06/30 2200 AC 07/20 TOP 2102 Last 24 Hrs of Lab/Avtar Results Last 24 Hrs of Labs/Mics: Laboratory Tests 07/21/16 0555: PT 21.0 H, INR 2.01 H, CBC w Diff MAN DIFF ORDERED, RBC 3.36 L, MCV 90.1, MCH 28.6, RDW 18.4 H, MPV 8.6, Gran % 62.9, Lymphocytes % 13.4 L, Monocytes % 20.4 H, Eosinophils % 3.1, Basophils % 0.2, Absolute Granulocytes 3.7, Segmented Neutrophils 60, Band Neutrophils 8 H, Absolute Lymphocytes 0.8 L, Lymphocytes 10 L, Monocytes 16 H, Absolute Monocytes 1.2 H, Eosinophils 4, Absolute Eosinophils 0.2, Basophils 1, Absolute Basophils 0, Metamyelocytes 1, Nucleated RBCs 1 H, Platelet Estimate ADEQUATE, Polychromasia 1+, Hypochromic-Microcytic 1+, Poikilocytosis 1+, PUBS MCHC 31.8 L Assessment/Plan Assessment: 75 y/o M with PMHx of antiphospholipid antibody syndrome, diabetes and CKD who presented with SOB, hoarseness and stridor, found to be uremic with initiation of HD, s/p debridement of chronic left leg ulcer, on IV vancomycin for soft tissue infection, currently awaiting outpatient dialysis slot. Pneumonia: Likely aspiration PNA, CXR showed rt middle lobe opacity Cont to monitor off antibiotics - s/p 5 day course of ceftazidime (07/15-07/19). Overnight no fevers, will continue to monitor ID following, will follow recs Anemia : Etiology multifactorial. Currently HDS. Per GI anemia likely secondary to other causes then GI. Will have patient follow-up with GI as an outpatient. We'll continue iron supplementation and Epogen. Chest Pain: Resolved. On 07/09 patient had chest pain, ekg-no acute changes. Troponins elevated at 0.14. patient was transferred to telemetry floor for continuous cardiac monitoring, cardiology on board repeat troponin trended down. Chronic left lower extremity ulcer: Has chronic nonhealing ulcers of left leg for which he sees Dr. Pretty as outpatient. S/p excisional debridement through the subcutaneous and muscular tissue with reported seropurulent drainage (06/30) and OR cultures growing diphthteroids and coag-negative Staph. Although these are not typically pathogenic organisms, currently on IV vancomycin for possible soft tissue infection.Wound appears improved, however patient complains of severe pain concerning for ischemia. * ID following * Vancomycin completed * Vascular surgery consulted again. no intervention suggested * Consult of plans of possible debridment Antiphospholipid antibody syndrome: chronic right upper extremity DVT. On life- long anti-coagulation with warfarin, takes 5 mg PO QD. * Continue to check INR daily and dose warfarin accordingly to keep INR between 2-3. * INR 2.01 today - administer 2.5 mg of warfarin today. ESRD: Cr was 5 on admission, with gradual increase from 2-3 within the past year. Most likely etiology is progressive diabetic nephropathy. Mj cath was placed and urgent hemodialysis was initiated (06/26) with improvement of mental status. Patient is currently awaiting outpatient dialysis slot. * Nephrology following * Continue HD MW * No PICC lines should be inserted per Nephrology, as patient will need vein site for placement of graft. * Continue sevelamer 800 mg PO TIDAC. * Continue daily Nephrocaps T2DM: Uncontrolled blood sugars this admission, secondary to steroids. * Endocrinology following * Levemir 4U SQ DAILY * Continue NovoLog SSI TIDAC as suggested HTN: Takes amlodipine 10 mg PO QD, carvedilol 25 mg PO BID, furosemide 80 mg PO BID and hydralazine 50 mg PO BID at home. * Holding home amlodipine, furosemide and hydralazine. * Continue home carvedilol. Crohn's disease: Patient has been taking prednisone 10 mg PO QD for many years to prevent flares. * prednisone dose 7.5 mg daily. As per recommendations from GI and tapering for 2 weeks as tolerated. * Aspirin GI, the patient to remain on aspirin, Protonix needed to be added. * C diff was added to rule out C diff toxin infection. Blood cultures were sent. Diet: Renal Dialysis Diet (regular and nectar thick liquids) DVT PPx: Warfarin and ALPs CODE: FULL Problem List: 1. ACUTE RENAL FAILURE 2. Cellulitis of leg, excluding foot 3. Deep venous thrombosis 4. NEPHROLITHIASIS 5. Supratherapeutic INR 6. Closed fracture of left hip with malunion 7. Gait disturbance 8. Diabetes mellitus 9. CKD (chronic kidney disease) 10. Elevated troponin 11. Swelling of right upper extremity 12. Acute blood loss anemia 13. Anemia 14. Fever 15. TIA (transient ischemic attack) 16. Hypoglycemia 17. Chest pain 18. Supratherapeutic INR 19. Cellulitis of leg, right 20. Hyperkalemia 21. Hyponatremia 22. CRI (chronic renal insufficiency) 23. Chronic deep vein thrombosis (DVT) 24. Cellulitis 25. Lethargy 26. Acute on chronic kidney failure 27. Right ankle sprain 28. Cellulitis of left lower leg 29. Wound infection 30. Crohn disease 31. DVT prophylaxis 32. Full code status 33. Antiphospholipid antibody syndrome 34. Leukocytosis 35. NSTEMI (non-ST elevated myocardial infarction) 36. Left leg cellulitis 37. End stage renal disease 38. Supraglottic edema 39. Elevated troponin 40. Antiphospholipid antibody syndrome 41. Chronic ulcer of left lower extremity 42. Type 2 diabetes mellitus 43. Bilateral vocal cord paralysis 44. Peripheral vascular disease 45. Crohns disease 46. Chest pain 47. Pneumonia Pain Ratin Pain Location: LLE Pain Goal: Remain pain free Pain Plan: Tylenol 500 mg PO Q6H PRN for moderate pain (scale 4-6) Percocet 2 tabs PO Q6H PRN for severe pain (scale 7-10) Tomorrow's Labs & Rationales: CBC to monitor H/H in the setting of anemia INR to adjust warfarin dosing ADRIENNE PALMER MDMAD 07/21/16 1254: Attending MD Review Statement Attending Statement Attending MD Statement: examined this patient, discuss w/resident/PA/DRAPERY MAKER, agreed w/resident/PA/DRAPERY MAKER, discussed with family, reviewed EMR data (avail), reviewed images Attending Assessment/Plan: 72 year old male with past medical history significant for end-stage renal disease on hemodialysis, chronic right upper extremity DVT secondary to antiphospholipid antibody syndrome presented with shortness of breath secondary to fluid overload. Patient was seen and examined on the bedside this morning and feels more alert, oriented with no complaints. Vitals stable, afebrile, labs reviewed. ID is on board for evaluation and management of his left leg wound for which the patient has recently completed course of antibiotics. Vascular surgery does not has any recommendations or any interventions for now. Patient is awaiting an outpatient slot for HD, and is also currently waiting for a bed at a half-way facility. If he has a bed available, will discharge him tomorrow after having her HD session. INR within therapeutic range, will give him his usual dose today. Would continue the rest of his medical treatment.
--- NOTE | 2016-07-21 12:44 | PN- Diabetes ---
Assessment/Plan Assessment: The patient is drowsy today possibly secondary to pain meds. He still complains of pain in his left leg. The patient continues on dialysis. Levemir was decreased to 4 units daily. His prednisone has been been adjusted to 7.5 mg once a day in the morning. The patient's fever has declined. Stick blood sugars have now become high. He is eating better. Yesterday they were 153 before breakfast, 223 before lunch, 181 before dinner, and 265 at bedtime. This morning his sugar before breakfast was 235. The patient is on Levemir 4 units each a.m. and sliding-scale NovoLog starting with 3 units for 80-150. Plan: Suggest increase Levemir to 4 units twice a day. Continue present sliding scale NovoLog. Subjective Subjective: Still has pain left leg Review of Systems Constitutional: Denies: chills, fever. Cardiovascular: Denies: chest pain. Respiratory: Reports: cough. Gastrointestinal: Denies: abdominal pain. Skin: Reports: lesions (left lower leg). Objective Last 24 Hrs of Vital Signs/I&O Vital Signs Date Time Temp Pulse Resp B/P Pulse O2 O2 Flow FiO2 Ox Delivery Rate 07/21 1000 85 130/82 07/21 1000 85 130/82 07/21 1000 85 130/82 07/21 0805 97.5 85 20 130/82 95 Room Air 07/21 0008 97.8 96 19 114/98 91 Room Air 07/20 210 103 126/58 07/20 1603 98.1 60 20 98/58 95 Intake & Output 07/21 1600 07/21 0800 07/21 0000 Intake Total 360 360 Output Total Balance 360 360 Intake, Oral 360 360 Number 3 Bowel Movements Patient 155 lb Weight Vital Signs Date Time Temp Pulse Resp B/P Pulse O2 O2 Flow FiO2 Ox Delivery Rate 07/21 1000 85 130/82 07/21 1000 85 130/82 07/21 1000 85 130/82 07/21 0805 97.5 85 20 130/82 95 Room Air 07/21 0008 97.8 96 19 114/98 91 Room Air 07/20 210 103 126/58 07/20 1603 98.1 60 20 98/58 95 Intake & Output 07/21 1600 07/21 0800 07/21 0000 Intake Total 360 360 Output Total Balance 360 360 Intake, Oral 360 360 Number 3 Bowel Movements Patient 155 lb Weight Physical Exam General Appearance: well developed/nourished Head: normal appearance Neck: normal inspection Respiratory: normal breath sounds Cardiovascular: regular rate/rhythm Abdomen: normal bowel sounds Extremities: left leg bandaged Current Medications: Current Medications Sig/Kailash Start time Last Medication Dose Route Stop Time Status Admin Acetaminophen 500 MG Q6P PRN 07/02 0815 AC 07/18 PO 1555 Aspirin 81 MG DAILY 07/01 1000 AC 07/21 PO 1000 Atorvastatin Calcium 40 MG 1700 06/30 1700 AC 07/20 PO 1700 Carvedilol 25 MG BID 06/30 2200 AC 07/21 PO 1000 Diphenoxylate HCl/ 2.5 MG TID PRN 07/16 1200 AC 07/18 Atropine PO 1800 Epoetin Ludwig 3,000 UNIT MoWeFr PRN 07/08 1200 AC IV Epoetin Ludwig 2,000 UNIT MoWeFr PRN 07/08 1200 AC IV Guaifenesin 600 MG Q12 07/18 1000 AC 07/21 PO 1000 Insulin Aspart 0 TIDAC/HS 06/30 2100 AC 07/21 SC 1207 Insulin Detemir 4 UNITS DAILY 07/11 1000 AC 07/21 SC 1000 Iron Sucrose 100 MG PER PROTOCL PRN 07/01 1430 AC 07/03 Sodium Chloride 100 ML IV 1221 Isosorbide 30 MG DAILY 07/09 1056 AC 07/21 Mononitrate PO 1000 Multivitamins 1 TAB DAILY 07/01 1000 AC 07/21 PO 1000 Omeprazole 40 MG DAILY AC 07/14 0700 AC 07/21 PO 0549 Oxycodone/ 2 TAB Q6P PRN 07/11 2230 AC 07/21 Acetaminophen PO 0338 Prednisone 7.5 MG DAILY 07/14 1000 AC 07/21 PO 1000 Sevelamer Carbonate 800 MG WITH MEALS 06/30 1200 AC 07/21 PO 1207 Sodium Chloride 2 SPRAY Q10MIN PRN 07/12 0230 AC CARLITOS Sodium Hypochlorite 1 CHAITANYA BID 07/05 1113 AC 07/21 TOP 1000 Tamsulosin HCl 0.4 MG DAILY 07/01 1000 AC 07/21 PO 1000 Vitamin A/Vitamin D 1 CHAITANYA BID 06/30 2200 AC 07/21 TOP 1000 Warfarin Sodium 2.5 MG COUMADIN 1700 ONE 07/21 1700 AC PO 07/21 1701 Warfarin Sodium 2.5 MG COUMADIN 1700 ONE 07/20 1700 DC 07/20 PO 07/20 1701 1700 Zinc Oxide 1 CHAITANYA BID 06/30 2200 AC 07/21 TOP 1206 Findings Pertinent Lab/Avtar Results: Laboratory Tests 07/21 0555 Coagulation PT (9.4 - 12.5 SEC) 21.0 H INR (0.90 - 1.17) 2.01 H Hematology CBC w Diff MAN DIFF ORDERED WBC (4.8 - 10.8 /CUMM) 5.9 RBC (4.70 - 6.10 /CUMM) 3.36 L Hgb (14.0 - 18.0 G/DL) 9.6 L Hct (42 - 52 %) 30.2 L MCV (80.0 - 94.0 FL) 90.1 MCH (27.0 - 31.0 PG) 28.6 RDW (11.5 - 14.5 %) 18.4 H Plt Count (130 - 400 /CUMM) 414 H MPV (7.4 - 10.4 FL) 8.6 Gran % (42.2 - 75.2 %) 62.9 Lymphocytes % (20.5 - 51.1 %) 13.4 L Monocytes % (1.7 - 9.3 %) 20.4 H Eosinophils % (0 - 5 %) 3.1 Basophils % (0.0 - 2.0 %) 0.2 Absolute Granulocytes (1.4 - 6.5 /CUMM) 3.7 Segmented Neutrophils (42.2 - 75.2 %) 60 Band Neutrophils (0.0 - 5.0 %) 8 H Absolute Lymphocytes (1.2 - 3.4 /CUMM) 0.8 L Lymphocytes (20.5 - 51.1 %) 10 L Monocytes (1.7 - 9.3 %) 16 H Absolute Monocytes (0.10 - 0.60 /CUMM) 1.2 H Eosinophils (0 - 5.0 %) 4 Absolute Eosinophils (0.0 - 0.7 /CUMM) 0.2 Basophils (0.0 - 2.0 %) 1 Absolute Basophils (0.0 - 0.2 /CUMM) 0 Metamyelocytes (0.0 - 1.0 %) 1 Nucleated RBCs (0.0 - 0.0 /100WBC) 1 H Platelet Estimate (ADEQUATE) ADEQUATE Polychromasia 1+ Hypochromic-Microcytic 1+ Poikilocytosis 1+ PUBS MCHC (33.0 - 37.0 G/DL) 31.8 L
[2016-07-21 15:53] VITALS: BP 112/52
[2016-07-22 00:05] VITALS: BP 124/76
--- NOTE | 2016-07-22 06:32 | PN- Housestaff ---
MAURISIO HEATH,[facility] 07/22/16 0632: Subjective Follow-up For: Left lower leg non healing ulcer acute blood loss anemia Subjective: Patient seen and examined at bedside. No acute events overnight. Underwent dialysis this morning. Resting comfortably in bed with no complaints. Left leg pain is well-controlled. HDS, vitals WNL. Review of Systems Constitutional: Reports: see HPI, chills. Objective Last 24 Hrs of Vital Signs/I&O Vital Signs Date Time Temp Pulse Resp B/P Pulse O2 O2 Flow FiO2 Ox Delivery Rate 07/22 0800 92 Room Air 07/22 0748 98.2 68 20 128/62 92 Room Air 07/22 0005 98.0 102 20 124/76 96 07/21 2312 88 122/60 07/21 1553 99.4 84 20 112/52 91 07/21 1000 85 130/82 07/21 1000 85 130/82 07/21 1000 85 130/82 Intake & Output 07/22 1600 07/22 0800 07/22 0000 Intake Total 120 240 Output Total 200 Balance -80 240 Intake, Oral 120 240 Number 1 0 Bowel Movements Output, Urine 200 Patient 70.931 kg Weight Physical Exam General Appearance: Alert, Oriented X3, Cooperative, No Acute Distress Other Physical Findings: HEENT: Mucous Membr. moist/pink Cardiovascular: Regular Rate, Normal S1, Normal S2 Lungs: Diminished Breath Sounds, Bibasilar Crackles Abdomen: Soft, No Tenderness, Positive Bowel Sounds Extremities: No Clubbing, No Cyanosis, Necrotic Ulcer on Left Calf, Without Surrounding Erythema Current Medications: Current Medications Sig/Kailash Start time Last Medication Dose Route Stop Time Status Admin Acetaminophen 500 MG Q6P PRN 07/02 0815 AC 07/18 PO 1555 Aspirin 81 MG DAILY 07/01 1000 AC 07/21 PO 1000 Atorvastatin Calcium 40 MG 1700 06/30 1700 AC 07/21 PO 1700 Carvedilol 25 MG BID 06/30 2200 AC 07/21 PO 2312 Diphenoxylate HCl/ 2.5 MG TID PRN 07/16 1200 AC 07/18 Atropine PO 1800 Epoetin Ludwig 3,000 UNIT MoWeFr PRN 07/08 1200 AC IV Epoetin Ludwig 2,000 UNIT MoWeFr PRN 07/08 1200 AC IV Guaifenesin 600 MG Q12 07/18 1000 AC 07/21 PO 2309 Insulin Aspart 0 TIDAC/HS 06/30 2100 AC 07/21 SC 1824 Insulin Detemir 4 UNITS BID 07/21 2200 AC 07/21 SC 2308 Insulin Detemir 4 UNITS DAILY 07/11 1000 DC 07/21 SC 1000 Iron Sucrose 100 MG PER PROTOCL PRN 07/01 1430 AC 07/03 Sodium Chloride 100 ML IV 1221 Isosorbide 30 MG DAILY 07/09 1056 AC 07/21 Mononitrate PO 1000 Multivitamins 1 TAB DAILY 07/01 1000 AC 07/21 PO 1000 Omeprazole 40 MG DAILY AC 07/14 0700 AC 07/22 PO 0710 Oxycodone/ 2 TAB Q6P PRN 07/11 2230 AC 07/21 Acetaminophen PO 2356 Prednisone 7.5 MG DAILY 07/14 1000 AC 07/21 PO 1000 Sevelamer Carbonate 800 MG WITH MEALS 06/30 1200 AC 07/21 PO 1700 Sodium Chloride 2 SPRAY Q10MIN PRN 07/12 0230 AC CARLITOS Sodium Hypochlorite 1 CHAITANYA BID 07/05 1113 AC 07/21 TOP 2316 Tamsulosin HCl 0.4 MG DAILY 07/01 1000 AC 07/21 PO 1000 Vitamin A/Vitamin D 1 CHAITANYA BID 06/30 2200 AC 07/21 TOP 1000 Warfarin Sodium 2.5 MG COUMADIN 1700 ONE 07/21 1700 DC 07/21 PO 07/21 1701 1700 Zinc Oxide 1 CHAITANYA BID 06/30 2200 AC 07/21 TOP 2317 Assessment/Plan Assessment: 75 y/o M with PMHx of antiphospholipid antibody syndrome, diabetes and CKD who presented with SOB, hoarseness and stridor, found to be uremic with initiation of HD, s/p debridement of chronic left leg ulcer, on IV vancomycin for soft tissue infection, currently awaiting outpatient dialysis slot. Pneumonia: Likely aspiration PNA, CXR showed rt middle lobe opacity Cont to monitor off antibiotics - s/p 5 day course of ceftazidime (07/15-07/19). Overnight no fevers, will continue to monitor ID following, will follow recs Anemia : Etiology multifactorial. Currently HDS. Per GI anemia likely secondary to other causes then GI. Will have patient follow-up with GI as an outpatient. We'll continue iron supplementation and Epogen. Chest Pain: Resolved. On 07/09 patient had chest pain, ekg-no acute changes. Troponins elevated at 0.14. patient was transferred to telemetry floor for continuous cardiac monitoring, cardiology on board repeat troponin trended down. Chronic left lower extremity ulcer: Has chronic nonhealing ulcers of left leg for which he sees Dr. Pretty as outpatient. S/p excisional debridement through the subcutaneous and muscular tissue with reported seropurulent drainage (06/30) and OR cultures growing diphthteroids and coag-negative Staph. Although these are not typically pathogenic organisms, currently on IV vancomycin for possible soft tissue infection.Wound appears improved, however patient complains of severe pain concerning for ischemia. * ID following * Vancomycin completed * Vascular surgery consulted again. no intervention suggested * Consult of plans of possible debridment Antiphospholipid antibody syndrome: chronic right upper extremity DVT. On life- long anti-coagulation with warfarin, takes 5 mg PO QD. * Continue to check INR daily and dose warfarin accordingly to keep INR between 2-3. * INR 2.01 today - administer 2.5 mg of warfarin today. ESRD: Cr was 5 on admission, with gradual increase from 2-3 within the past year. Most likely etiology is progressive diabetic nephropathy. Mj cath was placed and urgent hemodialysis was initiated (06/26) with improvement of mental status. Patient is currently awaiting outpatient dialysis slot. * Nephrology following * Continue HD MW * No PICC lines should be inserted per Nephrology, as patient will need vein site for placement of graft. * Continue sevelamer 800 mg PO TIDAC. * Continue daily Nephrocaps T2DM: Uncontrolled blood sugars this admission, secondary to steroids. * Endocrinology following * Levemir 4U SQ DAILY * Continue NovoLog SSI TIDAC as suggested HTN: Takes amlodipine 10 mg PO QD, carvedilol 25 mg PO BID, furosemide 80 mg PO BID and hydralazine 50 mg PO BID at home. * Holding home amlodipine, furosemide and hydralazine. * Continue home carvedilol. Crohn's disease: Patient has been taking prednisone 10 mg PO QD for many years to prevent flares. * prednisone dose 7.5 mg daily. As per recommendations from GI and tapering for 2 weeks as tolerated. * Aspirin GI, the patient to remain on aspirin, Protonix needed to be added. * C diff was added to rule out C diff toxin infection. Blood cultures were sent. Diet: Renal Dialysis Diet (regular and nectar thick liquids) DVT PPx: Warfarin and ALPs CODE: FULL Problem List: 1. ACUTE RENAL FAILURE 2. Cellulitis of leg, excluding foot 3. Deep venous thrombosis 4. NEPHROLITHIASIS 5. Supratherapeutic INR 6. Closed fracture of left hip with malunion 7. Gait disturbance 8. Diabetes mellitus 9. CKD (chronic kidney disease) 10. Elevated troponin 11. Swelling of right upper extremity 12. Acute blood loss anemia 13. Anemia 14. Fever 15. TIA (transient ischemic attack) 16. Hypoglycemia 17. Chest pain 18. Supratherapeutic INR 19. Cellulitis of leg, right 20. Hyperkalemia 21. Hyponatremia 22. CRI (chronic renal insufficiency) 23. Chronic deep vein thrombosis (DVT) 24. Cellulitis 25. Lethargy 26. Acute on chronic kidney failure 27. Right ankle sprain 28. Cellulitis of left lower leg 29. Wound infection 30. Crohn disease 31. DVT prophylaxis 32. Full code status 33. Antiphospholipid antibody syndrome 34. Leukocytosis 35. NSTEMI (non-ST elevated myocardial infarction) 36. Left leg cellulitis 37. End stage renal disease 38. Supraglottic edema 39. Elevated troponin 40. Antiphospholipid antibody syndrome 41. Chronic ulcer of left lower extremity 42. Type 2 diabetes mellitus 43. Bilateral vocal cord paralysis 44. Peripheral vascular disease 45. Crohns disease 46. Chest pain 47. Pneumonia Pain Ratin Pain Location: 0 Pain Goal: Remain pain free Pain Plan: Tylenol 500 mg PO Q6H PRN for moderate pain (scale 4-6) Percocet 2 tabs PO Q6H PRN for severe pain (scale 7-10) Tomorrow's Labs & Rationales: CBC to monitor H/H in the setting of anemia INR to adjust warfarin dosing ESTELA HEATH,[facility] 07/22/16 1157: Attending MD Review Statement Attending Statement Attending MD Statement: examined this patient, discuss w/resident/PA/EXTRACTOR OPERATOR SOLVENT PROCESS, agreed w/resident/PA/EXTRACTOR OPERATOR SOLVENT PROCESS, reviewed EMR data (avail), reviewed images Attending Assessment/Plan: 72 year old male with past medical history significant for end-stage renal disease on hemodialysis, chronic right upper extremity DVT secondary to antiphospholipid antibody syndrome presented with shortness of breath secondary to fluid overload.Patient has gone for his schuduled dialysis today. Vitals stable, afebrile, labs reviewed.ID is on board for evaluation and management of his left leg wound for which the patient has recently completed course of antibiotics. Vascular surgery does not has any recommendations or any interventions for now. Patient is awaiting an outpatient slot for HD, and is also currently waiting for a bed at a care home facility. INR within therapeutic range, will give him his usual dose today. Would continue the rest of his medical treatment. His dose of insulin remains the same today, endo has been following up.
[2016-07-22 07:48] VITALS: BP 128/62
--- NOTE | 2016-07-22 08:08 | NUR ---
NURSING NOTE: PT LEFT FLOOR VIA BED WITH DISTRIBUTION FOR [facility]. PT AWAKE, A.FORGETFUL, ROOM AIR, DENIES PAIN. TICKET TO RIDE COMPLETE, LAB LABELS SENT; STUDENT DEVELOPMENT SPECIALIST AWARE, RCW PETEY CATH DRESSING LAST CHANGED 07/15; ARIS MIRANDA RN AWARE. AWAIT RETURN TO FLOOR. CONT TO MONITOR.
[2016-07-22 10:15] LABS: ABSOLUTE BASOPHIL COUNT 0.1 /CUMM (0.0-0.2); ABSOLUTE EOSINOPHIL COUNT 0.3 /CUMM (0.0-0.7); ABSOLUTE GRANULOCYTE CT 4.1 /CUMM (1.4-6.5); ABSOLUTE MONOCYTE COUNT 0.9 /CUMM (0.10-0.60); BASOPHIL % 1.7 % (0.0-2.0); EOSINOPHIL % 4.5 % (0-5); GRANULOCYTE % 63.9 % (42.2-75.2); HEMATOCRIT 28.7 % (42-52); MEAN CORPUSCULAR HGB CONC 31.1 G/DL (33.0-37.0); MEAN CORPUSCULAR VOLUME 90.1 FL (80.0-94.0); MEAN PLATELET VOLUME 8.4 FL (7.4-10.4); PLATELET COUNT 459 /CUMM (130-400); RBC DISTRIBUTION WIDTH 18.5 % (11.5-14.5); RED BLOOD CELL CT 3.19 /CUMM (4.70-6.10); WHITE BLOOD CELL COUNT 6.5 /CUMM (4.8-10.8)
--- NOTE | 2016-07-22 11:23 | PN- Diabetes ---
Assessment/Plan Assessment: The patient is drowsy today possibly secondary to pain meds. He still complains of pain in his left leg. The patient continues on dialysis. Levemir has been increased to 4 units twice a day. His prednisone has been been adjusted to 7.5 mg once a day in the morning. The patient's fever has declined. His fingerstick blood sugar this morning is improved. It is 149. Plan: Suggest continue the present insulin. We will need to monitor her sugars carefully today for making further adjustments. Subjective Subjective: Feels drowsy Objective Last 24 Hrs of Vital Signs/I&O Vital Signs Date Time Temp Pulse Resp B/P Pulse O2 O2 Flow FiO2 Ox Delivery Rate 07/22 0800 92 Room Air 07/22 0748 98.2 68 20 128/62 92 Room Air 07/22 0005 98.0 102 20 124/76 96 07/21 2312 88 122/60 07/21 1553 99.4 84 20 112/52 91 Intake & Output 07/22 1600 07/22 0800 07/22 0000 Intake Total 180 240 Output Total 200 Balance -20 240 Intake, Oral 180 240 Number 1 0 Bowel Movements Output, Urine 200 Patient 156 lb Weight Vital Signs Date Time Temp Pulse Resp B/P Pulse O2 O2 Flow FiO2 Ox Delivery Rate 07/22 0800 92 Room Air 07/22 0748 98.2 68 20 128/62 92 Room Air 07/22 0005 98.0 102 20 124/76 96 07/21 2312 88 122/60 07/21 1553 99.4 84 20 112/52 91 Intake & Output 07/22 1600 07/22 0800 07/22 0000 Intake Total 180 240 Output Total 200 Balance -20 240 Intake, Oral 180 240 Number 1 0 Bowel Movements Output, Urine 200 Patient 156 lb Weight Physical Exam General Appearance: well developed/nourished, lethargic Head: normal appearance Neck: normal inspection Cardiovascular: regular rate/rhythm Abdomen: normal bowel sounds Extremities: left leg bandaged Current Medications: Current Medications Sig/Kailash Start time Last Medication Dose Route Stop Time Status Admin Acetaminophen 500 MG Q6P PRN 07/02 0815 AC 07/18 PO 1555 Aspirin 81 MG DAILY 07/01 1000 AC 07/21 PO 1000 Atorvastatin Calcium 40 MG 1700 06/30 1700 AC 07/21 PO 1700 Carvedilol 25 MG BID 06/30 220 AC 07/21 PO 2312 Diphenoxylate HCl/ 2.5 MG TID PRN 07/16 1200 AC 07/18 Atropine PO 1800 Epoetin Ludwig 3,000 UNIT MoWeFr PRN 07/08 1200 AC IV Epoetin Ludwig 2,000 UNIT MoWeFr PRN 07/08 1200 AC IV Guaifenesin 600 MG Q12 07/18 1000 AC 07/21 PO 2309 Insulin Aspart 0 TIDAC/HS 06/30 2100 AC 07/21 SC 1824 Insulin Detemir 4 UNITS BID 07/21 2200 AC 07/21 SC 2308 Insulin Detemir 4 UNITS DAILY 07/11 1000 DC 07/21 SC 1000 Iron Sucrose 100 MG PER PROTOCL PRN 07/01 1430 AC 07/03 Sodium Chloride 100 ML IV 1221 Isosorbide 30 MG DAILY 07/09 1056 AC 07/21 Mononitrate PO 1000 Multivitamins 1 TAB DAILY 07/01 1000 AC 07/21 PO 1000 Omeprazole 40 MG DAILY AC 07/14 0700 AC 07/22 PO 0710 Oxycodone/ 2 TAB Q6P PRN 07/11 2230 AC 07/21 Acetaminophen PO 2356 Prednisone 7.5 MG DAILY 07/14 1000 AC 07/21 PO 1000 Sevelamer Carbonate 800 MG WITH MEALS 06/30 1200 AC 07/21 PO 1700 Sodium Chloride 2 SPRAY Q10MIN PRN 07/12 0230 AC CARLITOS Sodium Hypochlorite 1 CHAITANYA BID 07/05 1113 AC 07/21 TOP 2316 Tamsulosin HCl 0.4 MG DAILY 07/01 1000 AC 07/21 PO 1000 Vitamin A/Vitamin D 1 CHAITANYA BID 06/30 2200 AC 07/21 TOP 1000 Warfarin Sodium 2.5 MG COUMADIN 1700 ONE 07/21 1700 DC 07/21 PO 07/21 1701 1700 Zinc Oxide 1 CHAITANYA BID 06/30 2200 AC 07/21 TOP 2317 Findings Pertinent Lab/[place] Results: Laboratory Tests 07/22 0815 Hematology CBC w Diff NO MAN DIFF REQ WBC (4.8 - 10.8 /CUMM) 6.5 RBC (4.70 - 6.10 /CUMM) 3.19 L Hgb (14.0 - 18.0 G/DL) 8.9 L Hct (42 - 52 %) 28.7 L MCV (80.0 - 94.0 FL) 90.1 MCH (27.0 - 31.0 PG) 28.0 RDW (11.5 - 14.5 %) 18.5 H Plt Count (130 - 400 /CUMM) 459 H MPV (7.4 - 10.4 FL) 8.4 Gran % (42.2 - 75.2 %) 63.9 Lymphocytes % (20.5 - 51.1 %) 15.7 L Monocytes % (1.7 - 9.3 %) 14.2 H Eosinophils % (0 - 5 %) 4.5 Basophils % (0.0 - 2.0 %) 1.7 Absolute Granulocytes (1.4 - 6.5 /CUMM) 4.1 Absolute Lymphocytes (1.2 - 3.4 /CUMM) 1.0 L Absolute Monocytes (0.10 - 0.60 /CUMM) 0.9 H Absolute Eosinophils (0.0 - 0.7 /CUMM) 0.3 Absolute Basophils (0.0 - 0.2 /CUMM) 0.1 PUBS MCHC (33.0 - 37.0 G/DL) 31.1 L
[2016-07-22 12:50] VITALS: BP 120/78
--- NOTE | 2016-07-22 12:50 | NUR ---
NURSING NOTE:PT BACK TO FLOOR VIA BED WITH DISTRIBUTION FROM [facility], PT WEIGHED, VITALS OBTAINED AND DOCUMENTED, PT DENIES PAIN, BED ALARM IN USE. CREAMS APPLIED,. WILL CHANGE DRESSING TO L LEG. CONT TO MONITOR
--- NOTE | 2016-07-22 13:54 | PN- Nephrology ---
Assessment/Plan Assessment: ESRD (new since 06/26/16): Cause of ESRD is suspected diabetic nephropathy. Had HD today; next on friday. Anemia: Will continue Epogen 3 times a week with dialysis; On course of IV iron as well. delirium: narcotics playing a role? . Suggestion: HD today; next on friday continue epogen/IV iron with HD Subjective Subjective: He had dialysis this morning He has had some confusion, delirium Review of Systems: positive for change in mental status Taking some by mouth His pain in his left leg Objective Vital Signs and I&Os Vital Signs Date Time Temp Pulse Resp B/P Pulse O2 O2 Flow FiO2 Ox Delivery Rate 07/22 1250 98.4 90 18 120/78 93 Room Air 07/22 0800 92 Room Air 07/22 0748 98.2 68 20 128/62 92 Room Air 07/22 0005 98.0 102 20 124/76 96 07/21 2312 88 122/60 07/21 1553 99.4 84 20 112/52 91 Intake & Output 07/22 1600 07/22 0400 07/21 1600 07/21 0400 07/20 1600 07/20 0400 Intake Total 60 360 1080 360 970 120 Output Total 200 Balance 60 160 1080 360 970 120 Intake, Oral 60 360 1080 360 970 120 Number 1 3 2 6 1 Bowel Movements Output, Urine 200 Patient 153 lb 155 lb 156 lb Weight Physical Exam: General: NAD, confused HEENT: NC/AT. No icterus. Moist mucosa Neck: negative for LATOYA, JVD CV: RRR, no m/r/g Pulm: CTAB, no rales Abd: soft, NT/ND, negative renal bruits Lower Ext: neg edema +L leg ulcer bandaged Neuro: neg tremor, asterixis Skin: no rash, jaundice : no laboy catheter Current Medications: Current Medications Sig/Kailash Start time Last Medication Dose Route Stop Time Status Admin Acetaminophen 500 MG Q6P PRN 07/02 0815 AC 07/18 PO 1555 Aspirin 81 MG DAILY 07/01 1000 AC 07/22 PO 1257 Atorvastatin Calcium 40 MG 1700 06/30 1700 AC 07/21 PO 1700 Carvedilol 25 MG BID 06/30 2200 AC 07/22 PO 1257 Diphenoxylate HCl/ 2.5 MG TID PRN 07/16 1200 AC 07/18 Atropine PO 1800 Epoetin Ludwig 3,000 UNIT MoWeFr PRN 07/08 1200 AC IV Epoetin Ludwig 2,000 UNIT MoWeFr PRN 07/08 1200 AC IV Guaifenesin 600 MG Q12 07/18 1000 AC 07/22 PO 1257 Insulin Aspart 0 TIDAC/HS 06/30 2100 AC 07/21 SC 1824 Insulin Detemir 4 UNITS BID 07/21 2200 AC 07/21 SC 2308 Insulin Detemir 4 UNITS DAILY 07/11 1000 DC 07/21 SC 1000 Iron Sucrose 100 MG PER PROTOCL PRN 07/01 1430 AC 07/03 Sodium Chloride 100 ML IV 1221 Isosorbide 30 MG DAILY 07/09 1056 AC 07/22 Mononitrate PO 1257 Multivitamins 1 TAB DAILY 07/01 1000 AC 07/22 PO 1257 Omeprazole 40 MG DAILY AC 07/14 0700 AC 07/22 PO 0710 Oxycodone/ 2 TAB Q6P PRN 07/11 2230 AC 07/21 Acetaminophen PO 2356 Patient Medication 1 ED .STK-MED ONE 07/22 1329 [place] Teaching ED 07/22 1330 Prednisone 7.5 MG DAILY 07/14 1000 AC 07/22 PO 1258 Sevelamer Carbonate 800 MG WITH MEALS 06/30 1200 AC 07/22 PO 1257 Sodium Chloride 2 SPRAY Q10MIN PRN 07/12 0230 AC CARLITOS Sodium Hypochlorite 1 CHAITANYA BID 07/05 1113 AC 07/22 TOP 1258 Tamsulosin HCl 0.4 MG DAILY 07/01 1000 AC 07/22 PO 1257 Vitamin A/Vitamin D 1 CHAITANYA BID 06/30 2200 AC 07/22 TOP 1257 Warfarin Sodium 2.5 MG COUMADIN 1700 ONE 07/21 1700 DC 07/21 PO 07/21 1701 1700 Zinc Oxide 1 CHAITANYA BID 06/30 2200 AC 07/22 TOP 1257 Results Pertinent Lab Results: Laboratory Tests 07/22 07/21 0815 0555 Coagulation PT (9.4 - 12.5 SEC) 21.0 H INR (0.90 - 1.17) 2.01 H Hematology CBC w Diff NO MAN DIFF REQ MAN DIFF ORDERED WBC (4.8 - 10.8 /CUMM) 6.5 5.9 RBC (4.70 - 6.10 /CUMM) 3.19 L 3.36 L Hgb (14.0 - 18.0 G/DL) 8.9 L 9.6 L Hct (42 - 52 %) 28.7 L 30.2 L MCV (80.0 - 94.0 FL) 90.1 90.1 MCH (27.0 - 31.0 PG) 28.0 28.6 RDW (11.5 - 14.5 %) 18.5 H 18.4 H Plt Count (130 - 400 /CUMM) 459 H 414 H MPV (7.4 - 10.4 FL) 8.4 8.6 Gran % (42.2 - 75.2 %) 63.9 62.9 Lymphocytes % (20.5 - 51.1 %) 15.7 L 13.4 L Monocytes % (1.7 - 9.3 %) 14.2 H 20.4 H Eosinophils % (0 - 5 %) 4.5 3.1 Basophils % (0.0 - 2.0 %) 1.7 0.2 Absolute Granulocytes (1.4 - 6.5 /CUMM) 4.1 3.7 Segmented Neutrophils (42.2 - 75.2 %) 60 Band Neutrophils (0.0 - 5.0 %) 8 H Absolute Lymphocytes (1.2 - 3.4 /CUMM) 1.0 L 0.8 L Lymphocytes (20.5 - 51.1 %) 10 L Monocytes (1.7 - 9.3 %) 16 H Absolute Monocytes (0.10 - 0.60 /CUMM) 0.9 H 1.2 H Eosinophils (0 - 5.0 %) 4 Absolute Eosinophils (0.0 - 0.7 /CUMM) 0.3 0.2 Basophils (0.0 - 2.0 %) 1 Absolute Basophils (0.0 - 0.2 /CUMM) 0.1 0 Metamyelocytes (0.0 - 1.0 %) 1 Nucleated RBCs (0.0 - 0.0 /100WBC) 1 H Platelet Estimate (ADEQUATE) ADEQUATE Polychromasia 1+ Hypochromic-Microcytic 1+ Poikilocytosis 1+ PUBS MCHC (33.0 - 37.0 G/DL) 31.1 L 31.8 L 12/24 0620 Coagulation PT (9.4 - 12.5 SEC) 21.0 H INR (0.90 - 1.17) 2.01 H
--- NOTE | 2016-07-22 15:30 | NUR ---
NURSING NOTE: PT TEMP WAS 100.7, ON EMAR, TYLENOL ORDERED FOR "PAIN". TEXTED AND THEN PAGED MD GA. FOUND OUT HE WASN;T GTA ANYMORE. TEXTED CYNTHIA, ASKED FOR ORDER FOR TYLENOL TO BE FOR "FEVER" INSTEAD OF PAIN. ADMINISTERED TYLENOL AT 1710 WHEN TEMP WAS 101.2. ALSO APPLIED ICE TO FOREHEAD/ NECK. AT 1800, TEMP WAS 100.5, AT 1915, TEMP WAS 99.0.
[2016-07-22 16:17] VITALS: BP 112/60
[2016-07-22 17:48] LABS: ABSOLUTE BASOPHIL COUNT 0 /CUMM (0.0-0.2); ABSOLUTE EOSINOPHIL COUNT 0.3 /CUMM (0.0-0.7); ABSOLUTE GRANULOCYTE CT 4.9 /CUMM (1.4-6.5); ABSOLUTE LYMPH COUNT 0.9 /CUMM (1.2-3.4); ABSOLUTE MONOCYTE COUNT 1.2 /CUMM (0.10-0.60); BASOPHIL % 0.4 % (0.0-2.0); EOSINOPHIL % 3.8 % (0-5); GRANULOCYTE % 67.7 % (42.2-75.2); HEMATOCRIT 30.1 % (42-52); MEAN CORPUSCULAR HGB 28.2 PG (27.0-31.0); MEAN CORPUSCULAR HGB CONC 31.5 G/DL (33.0-37.0); MEAN CORPUSCULAR VOLUME 89.3 FL (80.0-94.0); MEAN PLATELET VOLUME 8.1 FL (7.4-10.4); PLATELET COUNT 450 /CUMM (130-400); RBC DISTRIBUTION WIDTH 18.5 % (11.5-14.5); RED BLOOD CELL CT 3.37 /CUMM (4.70-6.10); WHITE BLOOD CELL COUNT 7.2 /CUMM (4.8-10.8)
[2016-07-22 17:53] LABS: PT 37.3 SEC (9.4-12.5)
[2016-07-22 23:42] VITALS: BP 126/62
--- NOTE | 2016-07-22 23:45 | NUR ---
PT WAS STRAIGHT CAHT FOR URINE CULTURE COLLECTION.
--- NOTE | 2016-07-23 03:33 | Event Note ---
Event Note Event Note: There was a call for rapid response at 3:00 AM. I and Dr Camp went there. According to nurse taking care of patient.
--- NOTE | 2016-07-23 04:17 | RADIOLOGY REPORT ---
EXAMINATION: XR PORTABLE CHEST CLINICAL INFORMATION: Hypoxia. Assess for aspiration. COMPARISON: Chest radiography 07/14/2016. TECHNIQUE: Portable view of the chest was obtained. FINDINGS: Right internal jugular central venous catheter is unchanged in position. The lungs are well expanded. There is somewhat triangular shaped, patchy right midlung opacification, not significantly changed compared to prior radiography. No new consolidation, pulmonary edema, or large pleural effusion. No mediastinal widening. No acute osseous abnormality. IMPRESSION: No significant interval change compared to prior radiography. Somewhat triangular-shaped, patchy parenchymal opacification in the right midlung. No new consolidation demonstrated.
--- NOTE | 2016-07-23 04:18 | CT SCAN REPORT ---
EXAMINATION: CT HEAD WITHOUT CONTRAST CLINICAL INFORMATION: Nonresponsive. COMPARISON: Head CT performed 07/11/2016. TECHNIQUE: Contiguous axial imaging was performed from the skull base to vertex without intravenous administration of contrast. DLP: 529 mGy-cm. FINDINGS: There is no evidence of acute intracranial hemorrhage or territorial infarction. No abnormal mass effect or midline shift is seen. [place] to white matter differentiation is well preserved. No extra-axial fluid collections are identified. The ventricles and sulcal spaces are proportionately prominent without hydrocephalus. Chronic lacunar infarct in the right lentiform nucleus. Periventricular white matter hypoattenuation consistent with a degree of ischemic microangiopathy. The osseous structures and soft tissues are unremarkable. The mastoid air cells and visualized portions of the paranasal sinuses are well aerated. IMPRESSION: No acute intracranial pathology. Chronic intraparenchymal findings as above. This critical result was discussed with Dr. Ruiz at 4:10 AM on 07/23/2016 and it was ascertained that the content and urgency of the report was understood at the time of direct communication.
[2016-07-23 04:24] LABS: ABSOLUTE BASOPHIL COUNT 0 /CUMM (0.0-0.2); ABSOLUTE EOSINOPHIL COUNT 0.3 /CUMM (0.0-0.7); ABSOLUTE GRANULOCYTE CT 5.7 /CUMM (1.4-6.5); ABSOLUTE LYMPH COUNT 0.8 /CUMM (1.2-3.4); ABSOLUTE MONOCYTE COUNT 1.2 /CUMM (0.10-0.60); BASOPHIL % 0.1 % (0.0-2.0); EOSINOPHIL % 3.4 % (0-5); GRANULOCYTE % 70.9 % (42.2-75.2); HEMATOCRIT 28.9 % (42-52); MEAN CORPUSCULAR HGB 28.4 PG (27.0-31.0); MEAN CORPUSCULAR HGB CONC 31.3 G/DL (33.0-37.0); MEAN CORPUSCULAR VOLUME 90.6 FL (80.0-94.0); MEAN PLATELET VOLUME 8.2 FL (7.4-10.4); PLATELET COUNT 397 /CUMM (130-400); RBC DISTRIBUTION WIDTH 19.1 % (11.5-14.5); RED BLOOD CELL CT 3.19 /CUMM (4.70-6.10)
--- NOTE | 2016-07-23 04:36 | Event Note ---
Event Note Event Note: I was called to see the patient at 3:00 o'clock in the morning because of patient was not responding when the nurse went into the room for monitoring medication. I and Dr Camp went there. Blood sugar was checked, which was less than 50. So dextrose 50% was given. We again recheck the blood sugar after 20 minutes that was 76 milligram percent. Patient was responding to all the painful stimulus by withdrawing the legs.His SPO2 was 93% on 2 liters of oxygen and his vitals were stable. We advised forABG to look for CO2 retention, CT scan of the head to look for any acute intracranial abnormality , CBC for infections , BEP for any dyselectrolytemia, EKG and troponins to rule out WI and chest x-ray to rule out aspiration pneumonia . Patient is also on the Coumadin, so we want to rule out bleeding risk by checking PTT/APTT.
[2016-07-23 04:51] LABS: PT 39.3 SEC (9.4-12.5)
[2016-07-23 07:37] VITALS: BP 144/74
--- NOTE | 2016-07-23 07:52 | PN- Housestaff ---
ESTELA HEATH,[facility] 07/23/16 0751: Subjective Follow-up For: Left lower leg non healing ulcer acute blood loss anemia Subjective: Patient seen and examined at bedside. No acute events overnight. He was resting comfortably in bed in no acute distress. Continue to have left lower leg pain secondary to chronic nonhealing ulcer though well controlled with current pain regimen. HDS, vitals WNL. Overnight events: Patient blood sugar drop down to lower than 50, was given dextrose twice, blood sugar was stabilized, insulin dose has been decreased as per endocrine recommendations Review of Systems Constitutional: Reports: fever. Denies: chills. Cardiovascular: Denies: chest pain, palpitations. Respiratory: Denies: cough, short of breath, sputum production. Gastrointestinal: Denies: abdominal pain, constipation, nausea, vomiting. Objective Last 24 Hrs of Vital Signs/I&O Vital Signs Date Time Temp Pulse Resp B/P Pulse O2 O2 Flow FiO2 Ox Delivery Rate 07/23 0949 86 144/74 07/23 0949 86 144/74 07/23 0949 86 144/74 07/23 0737 97.4 86 20 144/74 93 Nasal 2.0L Cannula 07/23 0320 95 Nasal 2.0L Cannula 07/22 2342 99.1 94 20 126/62 93 07/22 2112 95 128/60 07/22 2015 99.2 07/22 1915 99.0 07/22 1809 100.5 07/22 1800 100.5 07/22 1710 101.2 07/22 1645 101.2 07/22 1617 100.7 65 20 112/60 92 07/22 1600 95 Room Air 07/22 1250 98.4 90 18 120/78 93 Room Air Intake & Output 07/23 1600 07/23 0800 07/23 0000 Intake Total 360 Output Total Balance 360 Intake, Oral 360 Number 2 Bowel Movements Patient 71.668 kg Weight Physical Exam General Appearance: Alert, Oriented X3, Cooperative, No Acute Distress Cardiovascular: Regular Rate, Normal S1, Normal S2, No Murmurs Lungs: Clear to Auscultation, Normal Air Movement Abdomen: Normal Bowel Sounds, Soft, No Tenderness Extremities: lower leg non-healing ulcer Current Medications: Current Medications Sig/Kailash Start time Last Medication Dose Route Stop Time Status Admin Acetaminophen 650 MG Q6P PRN 07/22 1700 AC 07/22 PO 1710 Acetaminophen 500 MG Q6P PRN 07/02 0815 DC 07/18 PO 1555 Aspirin 81 MG DAILY 07/01 1000 AC 07/23 PO 0949 Atorvastatin Calcium 40 MG 1700 06/30 1700 AC 07/22 PO 1718 Carvedilol 25 MG BID 06/30 2200 AC 07/23 PO 0949 Dextrose 25 GM ONCE ONE 07/23 0615 DC 07/23 IV 07/23 0616 0615 Dextrose 12.5 GM ONCE ONE 07/23 0330 DC 07/23 IV 07/23 0331 0330 Dextrose 25 GM ONCE ONE 07/23 0315 DC 07/23 IV 07/23 0316 0315 Dextrose/Sodium 1,000 ML Q13H 07/23 0330 DC Chloride IV Diphenoxylate HCl/ 2.5 MG TID PRN 07/16 1200 AC 07/18 Atropine PO 1800 Epoetin Ludwig 3,000 UNIT MoWeFr PRN 07/08 1200 AC IV Epoetin Ludwig 2,000 UNIT MoWeFr PRN 07/08 1200 AC IV Guaifenesin 600 MG Q12 07/18 1000 AC 07/23 PO 0949 Insulin Aspart 0 TIDAC/HS 06/30 2100 AC 07/22 SC 1402 Insulin Detemir 4 UNITS QAM 07/23 1000 AC 07/23 SC 0950 Insulin Detemir 4 UNITS BID 07/21 2200 DC 07/22 SC 2111 Iron Sucrose 100 MG PER PROTOCL PRN 07/01 1430 AC 07/03 Sodium Chloride 100 ML IV 1221 Isosorbide 30 MG DAILY 07/09 1056 AC 07/23 Mononitrate PO 0949 Multivitamins 1 TAB DAILY 07/01 1000 AC 07/23 PO 0949 Omeprazole 40 MG DAILY AC 07/14 0700 AC 07/23 PO 0614 Oxycodone/ 2 TAB Q6P PRN 07/11 2230 AC 07/21 Acetaminophen PO 2356 Patient Medication 1 ED .STK-MED ONE 07/22 1329 DC Teaching ED 07/22 1330 Prednisone 7.5 MG DAILY 07/14 1000 AC 07/23 PO 0950 Sevelamer Carbonate 800 MG WITH MEALS 06/30 1200 AC 07/23 PO 0819 Sodium Chloride 2 SPRAY Q10MIN PRN 07/12 0230 AC CARLITOS Sodium Hypochlorite 1 CHAITANYA BID 07/05 1113 AC 07/23 TOP 0950 Tamsulosin HCl 0.4 MG DAILY 07/01 1000 07/23 PO 0949 Vitamin A/Vitamin D 1 CHAITANYA BID 06/30 2200 07/23 TOP 0950 Zinc Oxide 1 CHAITANYA BID 06/30 2200 07/23 TOP 0950 Last 24 Hrs of Lab/Avtar Results Last 24 Hrs of Labs/Mics: Laboratory Tests 07/23/16 0600: Sodium Cancelled, Potassium Cancelled, Chloride Cancelled, Carbon Dioxide Cancelled, Anion Gap Cancelled, BUN Cancelled, Creatinine Cancelled, BUN/ Creatinine Ratio Cancelled, CBC w Diff Cancelled, WBC Cancelled, RBC Cancelled, Hgb Cancelled, Hct Cancelled, MCV Cancelled, MCH Cancelled, RDW Cancelled, Plt Count Cancelled, MPV Cancelled, PUBS MCHC Cancelled 07/23/16 0550: pH 7.46 H, pCO2 38, pO2 100, HCO3 27, ABG O2 Sat (Measured) 97.0, P-50 (Temp Corrected) Y, Carboxyhemoglobin 0.3 L, O2 Concentration % 2 LPM, Temperature 99.1, O2 Delivery Method N/C, Phlebotomy Draw Site LEFT BRACHIAL 07/23/16 0323: Anion Gap 7, Estimated GFR 31 L, BUN/Creatinine Ratio 6.2 L, Troponin I 0.02, PT 39.3 H, INR 3.79 H, CBC w Diff NO MAN DIFF REQ, RBC 3.19 L, MCV 90.6, MCH 28.4, RDW 19.1 H, MPV 8.2, Gran % 70.9, Lymphocytes % 10.5 L, Monocytes % 15.1 H, Eosinophils % 3.4, Basophils % 0.1, Absolute Granulocytes 5.7, Absolute Lymphocytes 0.8 L, Absolute Monocytes 1.2 H, Absolute Eosinophils 0.3, Absolute Basophils 0, PUBS MCHC 31.3 L 07/22/160: Urine Color STRAW, Urine Clarity CLDY H, Urine pH 7.0, Ur Specific [place] 1.025, Urine Protein >=300 H, Urine Ketones NEG, Urine Nitrite NEG, Urine Bilirubin NEG, Urine Urobilinogen 0.2, Ur Leukocyte Esterase LARGE H, Ur Microscopic SEDIMENT EXAMINED, Urine RBC 1-3, Urine WBC > 75 H, Urine Hemoglobin LARGE H, Urine Glucose NEG 07/22/16 1645: PT Cancelled, INR Cancelled 07/22/16 1645: Anion Gap 7, Estimated GFR 42 L, BUN/Creatinine Ratio 5.6 L, PT 37.3 H, INR 3.60 H, CBC w Diff NO MAN DIFF REQ, RBC 3.37 L, MCV 89.3, MCH 28.2, RDW 18.5 H, MPV 8.1, Gran % 67.7, Lymphocytes % 12.1 L, Monocytes % 16.0 H, Eosinophils % 3.8, Basophils % 0.4, Absolute Granulocytes 4.9, Absolute Lymphocytes 0.9 L, Absolute Monocytes 1.2 H, Absolute Eosinophils 0.3, Absolute Basophils 0, PUBS MCHC 31.5 L Microbiology 07/22 2120 URINE ROUT: Urine Culture - RES 07/22 1705 BLOOD: Blood Culture - RECD 07/22 1646 BLOOD: Blood Culture - RECD Assessment/Plan Assessment: 75 y/o M with PMHx of antiphospholipid antibody syndrome, diabetes and CKD who presented with SOB, hoarseness and stridor, found to be uremic with initiation of HD, s/p debridement of chronic left leg ulcer, on IV vancomycin for soft tissue infection, currently awaiting outpatient dialysis slot. Pneumonia: Likely aspiration PNA, CXR showed rt middle lobe opacity Cont to monitor off antibiotics - s/p 5 day course of ceftazidime (07/15-07/19). Overnight low-grade fever, MAXIMUM TEMPERATURE 101.2 ID following, will follow recs Anemia : Etiology multifactorial. Currently HDS. Per GI anemia likely secondary to other causes then GI. Will have patient follow-up with GI as an outpatient. We'll continue iron supplementation and Epogen. Chest Pain: Resolved. On 07/09 patient had chest pain, ekg-no acute changes. Troponins elevated at 0.14. patient was transferred to telemetry floor for continuous cardiac monitoring, cardiology on board repeat troponin trended down. Chronic left lower extremity ulcer: Has chronic nonhealing ulcers of left leg for which he sees Dr. Pretty as outpatient. S/p excisional debridement through the subcutaneous and muscular tissue with reported seropurulent drainage (06/30) and OR cultures growing diphthteroids and coag-negative Staph. Although these are not typically pathogenic organisms, currently on IV vancomycin for possible soft tissue infection.Wound appears improved, however patient complains of severe pain concerning for ischemia. * ID following * Vancomycin completed * Vascular surgery consulted again. no intervention suggested * Consult of plans of possible debridment Antiphospholipid antibody syndrome: chronic right upper extremity DVT. On life- long anti-coagulation with warfarin, takes 5 mg PO QD. * Continue to check INR daily and dose warfarin accordingly to keep INR between 2-3. * INR 3.79 today - holding off warfarin today. ESRD: Cr was 5 on admission, with gradual increase from 2-3 within the past year. Most likely etiology is progressive diabetic nephropathy. Mj cath was placed and urgent hemodialysis was initiated (06/26) with improvement of mental status. Patient is currently awaiting outpatient dialysis slot. * Nephrology following * Continue HD MW * No PICC lines should be inserted per Nephrology, as patient will need vein site for placement of graft. * Continue sevelamer 800 mg PO TIDAC. * Continue daily Nephrocaps T2DM: Uncontrolled blood sugars this admission, secondary to steroids. * Endocrinology following * Levemir 4U SQ DAILY * Continue NovoLog SSI TIDAC as suggested HTN: Takes amlodipine 10 mg PO QD, carvedilol 25 mg PO BID, furosemide 80 mg PO BID and hydralazine 50 mg PO BID at home. * Holding home amlodipine, furosemide and hydralazine. * Continue home carvedilol. Crohn's disease: Patient has been taking prednisone 10 mg PO QD for many years to prevent flares. * prednisone dose 7.5 mg daily. As per recommendations from GI and tapering for 2 weeks as tolerated. * Aspirin GI, the patient to remain on aspirin, Protonix needed to be added. * C diff was added to rule out C diff toxin infection. Blood cultures were sent. Diet: Renal Dialysis Diet (regular and nectar thick liquids) DVT PPx: Warfarin and ALPs CODE: FULL Problem List: 1. Cellulitis of leg, excluding foot 2. Supratherapeutic INR 3. CKD (chronic kidney disease) 4. Elevated troponin 5. Crohn disease 6. DVT prophylaxis 7. Full code status 8. Antiphospholipid antibody syndrome Pain Ratin Pain Location: Left lower extremity Pain Goal: Remain pain free Pain Plan: Percocet Tomorrow's Labs & Rationales: INR for daily Coumadin dosing ANDRÉS HEATH,[place] 07/23/16 1219: Attending MD Review Statement Attending Statement Attending MD Statement: examined this patient, discuss w/resident/PA/PEGA DEVELOPER, agreed w/resident/PA/PEGA DEVELOPER, discussed with family, reviewed EMR data (avail), discussed with nursing, discussed with case mgmt, reviewed images, amended to note Attending Assessment/Plan: Patient seen and examined, just had the lle dressing changed and was in excruciating pain. at bedside. Patient himself did not say anything was just grimacing in pain. Vital Signs Date Time Temp Pulse Resp B/P Pulse O2 O2 Flow FiO2 Ox Delivery Rate 07/23 0949 86 144/74 07/23 0949 86 144/74 07/23 0949 86 14407/23 0800 Nasal 2.0L Cannula 07/23 0737 97.4 86 20 144/74 93 Nasal 2.0L Cannula 07/23 0320 95 Nasal 2.0L Cannula 07/22 2342 99.1 94 20 126/62 93 07/22 2112 95 128/60 07/22 2015 99.2 07/22 1915 99.0 07/22 1809 100.5 07/22 1800 100.5 07/22 1710 101.2 07/22 1645 101.2 07/22 1617 100.7 65 20 112/60 92 07/22 1600 95 Room Air 07/22 1250 98.4 90 18 120/78 93 Room Air on exam; Patient was grimacing in pain, had his eyes closed. cv; s1, s2, rrr. resp; clear but limited exam as patient did not cooperate for the exam. abd; soft, nt, bs+. ext: + dressing on lle. Laboratory Tests 07/23 07/23 0600 0550 Blood Gas pH (7.35 - 7.45 PH) 7.46 H pCO2 (35 - 45 TORR) 38 pO2 (80 - 100 TORR) 100 HCO3 (21 - 28 MEQ/L) 27 ABG O2 Sat (Measured) (>96.0 %) 97.0 P-50 (Temp Corrected) Y Carboxyhemoglobin (1.5 - 5.0 %) 0.3 L O2 Concentration % 2 LPM Temperature (97.0 - 100.0 FARH) 99.1 O2 Delivery Method N/C Chemistry Sodium Cancelled Potassium Cancelled Chloride Cancelled Carbon Dioxide Cancelled Anion Gap Cancelled BUN Cancelled Creatinine Cancelled BUN/Creatinine Ratio Cancelled Hematology CBC w Diff Cancelled WBC Cancelled RBC Cancelled Hgb Cancelled Hct Cancelled MCV Cancelled MCH Cancelled RDW Cancelled Plt Count Cancelled MPV Cancelled PUBS MCHC Cancelled Miscellaneous Phlebotomy Draw Site LEFT BRACHIAL 07/23 07/22 1180 2120 Chemistry Sodium (137 - 145 mmol/L) 140 Potassium (3.5 - 5.1 mmol/L) 4.1 Chloride (98 - 107 mmol/L) 101 Carbon Dioxide (22 - 30 mmol/L) 31 H Anion Gap (5 - 16) 7 BUN (9 - 20 mg/dL) 13 Creatinine (0.7 - 1.2 mg/dL) 2.1 H Estimated GFR (>60 ml/min) 31 L BUN/Creatinine Ratio (7 - 25 %) 6.2 L Troponin I (<0.11 ng/ml) 0.02 Coagulation PT (9.4 - 12.5 SEC) 39.3 H INR (0.90 - 1.17) 3.79 H Hematology CBC w Diff NO MAN DIFF REQ WBC (4.8 - 10.8 /CUMM) 8.0 RBC (4.70 - 6.10 /CUMM) 3.19 L Hgb (14.0 - 18.0 G/DL) 9.0 L Hct (42 - 52 %) 28.9 L MCV (80.0 - 94.0 FL) 90.6 MCH (27.0 - 31.0 PG) 28.4 RDW (11.5 - 14.5 %) 19.1 H Plt Count (130 - 400 /CUMM) 397 MPV (7.4 - 10.4 FL) 8.2 Gran % (42.2 - 75.2 %) 70.9 Lymphocytes % (20.5 - 51.1 %) 10.5 L Monocytes % (1.7 - 9.3 %) 15.1 H Eosinophils % (0 - 5 %) 3.4 Basophils % (0.0 - 2.0 %) 0.1 Absolute Granulocytes (1.4 - 6.5 /CUMM) 5.7 Absolute Lymphocytes (1.2 - 3.4 /CUMM) 0.8 L Absolute Monocytes (0.10 - 0.60 /CUMM) 1.2 H Absolute Eosinophils (0.0 - 0.7 /CUMM) 0.3 Absolute Basophils (0.0 - 0.2 /CUMM) 0 PUBS MCHC (33.0 - 37.0 G/DL) 31.3 L Urines Urine Color (YEL,AMB,STR) STRAW Urine Clarity (CLEAR) CLDY H Urine pH (5.0 - 8.0) 7.0 Ur Specific [place] (1.001 - 1.035) 1.025 Urine Protein (NEG,<30 MG/DL) >=300 H Urine Ketones (NEG) NEG Urine Nitrite (NEG) NEG Urine Bilirubin (NEG) NEG Urine Urobilinogen (0.1 - 1.0 EU/dl) 0.2 Ur Leukocyte Esterase (NEG) LARGE H Ur Microscopic SEDIMENT EXAMINED Urine RBC (0 - 5 /HPF) 1-3 Urine WBC (0 - 2 /HPF) > 75 H Urine Hemoglobin (NEG) LARGE H Urine Glucose (N MG/DL) NEG 07/22 07/22 1645 1645 Chemistry Sodium (137 - 145 mmol/L) 141 Potassium (3.5 - 5.1 mmol/L) 3.9 Chloride (98 - 107 mmol/L) 104 Carbon Dioxide (22 - 30 mmol/L) 30 Anion Gap (5 - 16) 7 BUN (9 - 20 mg/dL) 9 Creatinine (0.7 - 1.2 mg/dL) 1.6 H Estimated GFR (>60 ml/min) 42 L BUN/Creatinine Ratio (7 - 25 %) 5.6 L Coagulation PT (9.4 - 12.5 SEC) Cancelled 37.3 H INR (0.90 - 1.17) Cancelled 3.60 H Hematology CBC w Diff NO MAN DIFF REQ WBC (4.8 - 10.8 /CUMM) 7.2 RBC (4.70 - 6.10 /CUMM) 3.37 L Hgb (14.0 - 18.0 G/DL) 9.5 L Hct (42 - 52 %) 30.1 L MCV (80.0 - 94.0 FL) 89.3 MCH (27.0 - 31.0 PG) 28.2 RDW (11.5 - 14.5 %) 18.5 H Plt Count (130 - 400 /CUMM) 450 H MPV (7.4 - 10.4 FL) 8.1 Gran % (42.2 - 75.2 %) 67.7 Lymphocytes % (20.5 - 51.1 %) 12.1 L Monocytes % (1.7 - 9.3 %) 16.0 H Eosinophils % (0 - 5 %) 3.8 Basophils % (0.0 - 2.0 %) 0.4 Absolute Granulocytes (1.4 - 6.5 /CUMM) 4.9 Absolute Lymphocytes (1.2 - 3.4 /CUMM) 0.9 L Absolute Monocytes (0.10 - 0.60 /CUMM) 1.2 H Absolute Eosinophils (0.0 - 0.7 /CUMM) 0.3 Absolute Basophils (0.0 - 0.2 /CUMM) 0 PUBS MCHC (33.0 - 37.0 G/DL) 31.5 L A/P; 75-year-old male with the now end-stage renal disease on dialysis, chronic right upper extremity DVT on Coumadin, antiphospholipid syndrome who was originally admitted with shortness of breath and found to be volume overloaded. Patient received dialysis patient is a new dialysis. He has an outpatient dialysis slot. Patient also has markedly necrotic wound on the left lower extremity. Also was treated for possible pneumonia with ceftaz in the hospital course. He has been evaluated by infectious disease and vascular surgery and vascular surgery did not recommend any interventions. Patient had fever spike up to 101 yesterday. Overnight had a CAT scan of the head as well as chest x- ray secondary to lethargy. Was hypoglycemic and received some dextrose. Chest x-ray continues to show right sided patchy opacity. CT head was negative. Seen by infectious disease and no antibiotics were recommended. I will discuss this with Dr. Harden. Hemodialysis per nephrology. Patient currently is on Percocet for pain control. Continue other current medications. Please have wound care follow-up for the left vertex [id number]. DVT px: Patient's INR is supratherapeutic. Needs Rehab upon DC.
--- NOTE | 2016-07-23 08:02 | PN- Diabetes ---
Assessment/Plan Assessment: Patient's blood sugar became low late in the day yesterday. It was was after his Levemir was increased to 4 units twice a day. Plan: Suggest decreased Levemir back to 4 units once a day given each a.m. Continue sliding-scale NovoLog as written. Subjective Subjective: still does not feel well Objective Last 24 Hrs of Vital Signs/I&O Vital Signs Date Time Temp Pulse Resp B/P Pulse O2 O2 Flow FiO2 Ox Delivery Rate 07/23 0737 97.4 86 20 144/74 93 Nasal 2.0L Cannula 07/230 95 Nasal 2.0L Cannula 07/22 2342 99.1 94 20 126/62 93 07/22 211 95 128/60 07/22 2015 99.2 07/22 191 99.0 07/22 180 100.5 07/22 1800 100.5 07/22 1710 101.2 07/22 164 101.2 07/22 161 100.7 65 20 112/60 92 07/22 1600 95 Room Air 07/22 1250 98.4 90 18 120/78 93 Room Air Intake & Output 07/23 1600 07/23 0807/23 0000 Intake Total 360 Output Total Balance 360 Intake, Oral 360 Number 2 Bowel Movements Patient 158 lb Weight Vital Signs Date Time Temp Pulse Resp B/P Pulse O2 O2 Flow FiO2 Ox Delivery Rate 07/23 737 97.4 86 20 144/74 93 Nasal 2.0L Cannula 07/230 95 Nasal 2.0L Cannula 07/22 2342 99.1 94 20 126/62 93 07/22 2112 95 128/60 07/22 2015 99.2 07/22 1915 99.0 07/22 1809 100.5 07/22 1800 100.5 07/220 101.2 07/22 164 101.2 07/22 161 100.7 65 20 112/60 92 07/22 1600 95 Room Air 07/22 1250 98.4 90 18 120/78 93 Room Air Intake & Output 07/23 1600 07/23 0800 07/23 0000 Intake Total 360 Output Total Balance 360 Intake, Oral 360 Number 2 Bowel Movements Patient 158 lb Weight Physical Exam General Appearance: lethargic Head: normal appearance Neck: normal inspection Respiratory: normal breath sounds Cardiovascular: regular rate/rhythm Extremities: normal inspection (left leg bandaged) Current Medications: Current Medications Sig/Kailash Start time Last Medication Dose Route Stop Time Status Admin Acetaminophen 650 MG Q6P PRN 07/22 1700 AC 07/22 PO 1710 Acetaminophen 500 MG Q6P PRN 07/02 0815 DC 07/18 PO 1555 Aspirin 81 MG DAILY 07/01 1000 AC 07/22 PO 1257 Atorvastatin Calcium 40 MG 1700 06/30 1700 AC 07/22 PO 1718 Carvedilol 25 MG BID 06/30 2200 AC 07/22 PO 2112 Dextrose 25 GM ONCE ONE 07/23 0615 DC 07/23 IV 07/23 0616 0615 Dextrose 12.5 GM ONCE ONE 07/23 0330 DC 07/23 IV 07/23 0331 0330 Dextrose 25 GM ONCE ONE 07/23 0315 DC 07/23 IV 07/23 0316 0315 Dextrose/Sodium 1,000 ML Q13H 07/23 0330 DC Chloride IV Diphenoxylate HCl/ 2.5 MG TID PRN 07/16 1200 AC 07/18 Atropine PO 1800 Epoetin Ludwig 3,000 UNIT MoWeFr PRN 07/08 1200 AC IV Epoetin Ludwig 2,000 UNIT MoWeFr PRN 07/08 1200 AC IV Guaifenesin 600 MG Q12 07/18 1000 AC 07/22 PO 2113 Insulin Aspart 0 TIDAC/HS 06/30 2100 AC 07/22 SC 1402 Insulin Detemir 4 UNITS BID 07/21 2200 AC 07/22 SC 2111 Iron Sucrose 100 MG PER PROTOCL PRN 07/01 1430 AC 07/03 Sodium Chloride 100 ML IV 1221 Isosorbide 30 MG DAILY 07/09 1056 AC 07/22 Mononitrate PO 1257 Multivitamins 1 TAB DAILY 07/01 1000 AC 07/22 PO 1257 Omeprazole 40 MG DAILY AC 07/14 0700 AC 07/23 PO 0614 Oxycodone/ 2 TAB Q6P PRN 07/11 2230 AC 07/21 Acetaminophen PO 2356 Patient Medication 1 ED .STK-MED ONE 07/22 1329 DC Teaching ED 07/22 1330 Prednisone 7.5 MG DAILY 07/14 1000 AC 07/22 PO 1258 Sevelamer Carbonate 800 MG WITH MEALS 06/30 1200 AC 07/22 PO 1718 Sodium Chloride 2 SPRAY Q10MIN PRN 07/12 0230 AC CARLITOS Sodium Hypochlorite 1 CHAITANYA BID 07/05 1113 07/22 TOP 2112 Tamsulosin HCl 0.4 MG DAILY 07/01 1000 07/22 PO 1257 Vitamin A/Vitamin D 1 CHAITANYA BID 06/30 2200 07/22 TOP 2111 Zinc Oxide 1 CHAITANYA BID 06/30 2200 07/22 TOP 2112 Findings Pertinent Lab/[place]tar Results: Laboratory Tests 07/23 07/23 0600 0550 Blood Gas pH (7.35 - 7.45 PH) 7.46 H pCO2 (35 - 45 TORR) 38 pO2 (80 - 100 TORR) 100 HCO3 (21 - 28 MEQ/L) 27 ABG O2 Sat (Measured) (>96.0 %) 97.0 P-50 (Temp Corrected) Y Carboxyhemoglobin (1.5 - 5.0 %) 0.3 L O2 Concentration % 2 LPM Temperature (97.0 - 100.0 FARH) 99.1 O2 Delivery Method N/C Chemistry Sodium Cancelled Potassium Cancelled Chloride Cancelled Carbon Dioxide Cancelled Anion Gap Cancelled BUN Cancelled Creatinine Cancelled BUN/Creatinine Ratio Cancelled Hematology CBC w Diff Cancelled WBC Cancelled RBC Cancelled Hgb Cancelled Hct Cancelled MCV Cancelled MCH Cancelled RDW Cancelled Plt Count Cancelled MPV Cancelled PUBS MCHC Cancelled Miscellaneous Phlebotomy Draw Site LEFT BRACHIAL 07/23 Chemistry Sodium (137 - 145 mmol/L) 140 Potassium (3.5 - 5.1 mmol/L) 4.1 Chloride (98 - 107 mmol/L) 101 Carbon Dioxide (22 - 30 mmol/L) 31 H Anion Gap (5 - 16) 7 BUN (9 - 20 mg/dL) 13 Creatinine (0.7 - 1.2 mg/dL) 2.1 H Estimated GFR (>60 ml/min) 31 L BUN/Creatinine Ratio (7 - 25 %) 6.2 L Troponin I (<0.11 ng/ml) 0.02 Coagulation PT (9.4 - 12.5 SEC) 39.3 H INR (0.90 - 1.17) 3.79 H Hematology CBC w Diff NO MAN DIFF REQ WBC (4.8 - 10.8 /CUMM) 8.0 RBC (4.70 - 6.10 /CUMM) 3.19 L Hgb (14.0 - 18.0 G/DL) 9.0 L Hct (42 - 52 %) 28.9 L MCV (80.0 - 94.0 FL) 90.6 MCH (27.0 - 31.0 PG) 28.4 RDW (11.5 - 14.5 %) 19.1 H Plt Count (130 - 400 /CUMM) 397 MPV (7.4 - 10.4 FL) 8.2 Gran % (42.2 - 75.2 %) 70.9 Lymphocytes % (20.5 - 51.1 %) 10.5 L Monocytes % (1.7 - 9.3 %) 15.1 H Eosinophils % (0 - 5 %) 3.4 Basophils % (0.0 - 2.0 %) 0.1 Absolute Granulocytes (1.4 - 6.5 /CUMM) 5.7 Absolute Lymphocytes (1.2 - 3.4 /CUMM) 0.8 L Absolute Monocytes (0.10 - 0.60 /CUMM) 1.2 H Absolute Eosinophils (0.0 - 0.7 /CUMM) 0.3 Absolute Basophils (0.0 - 0.2 /CUMM) 0 PUBS MCHC (33.0 - 37.0 G/DL) 31.3 L Urines Urine Color (YEL,AMB,STR) STRAW Urine Clarity (CLEAR) CLDY H Urine pH (5.0 - 8.0) 7.0 Ur Specific [place] (1.001 - 1.035) 1.025 Urine Protein (NEG,<30 MG/DL) >=300 H Urine Ketones (NEG) NEG Urine Nitrite (NEG) NEG Urine Bilirubin (NEG) NEG Urine Urobilinogen (0.1 - 1.0 EU/dl) 0.2 Ur Leukocyte Esterase (NEG) LARGE H Ur Microscopic SEDIMENT EXAMINED Urine RBC (0 - 5 /HPF) 1-3 Urine WBC (0 - 2 /HPF) > 75 H Urine Hemoglobin (NEG) LARGE H Urine Glucose (N MG/DL) NEG 07/22 07/22 1645 1645 Chemistry Sodium (137 - 145 mmol/L) 141 Potassium (3.5 - 5.1 mmol/L) 3.9 Chloride (98 - 107 mmol/L) 104 Carbon Dioxide (22 - 30 mmol/L) 30 Anion Gap (5 - 16) 7 BUN (9 - 20 mg/dL) 9 Creatinine (0.7 - 1.2 mg/dL) 1.6 H Estimated GFR (>60 ml/min) 42 L BUN/Creatinine Ratio (7 - 25 %) 5.6 L Coagulation PT (9.4 - 12.5 SEC) Cancelled 37.3 H INR (0.90 - 1.17) Cancelled 3.60 H Hematology CBC w Diff NO MAN DIFF REQ WBC (4.8 - 10.8 /CUMM) 7.2 RBC (4.70 - 6.10 /CUMM) 3.37 L Hgb (14.0 - 18.0 G/DL) 9.5 L Hct (42 - 52 %) 30.1 L MCV (80.0 - 94.0 FL) 89.3 MCH (27.0 - 31.0 PG) 28.2 RDW (11.5 - 14.5 %) 18.5 H Plt Count (130 - 400 /CUMM) 450 H MPV (7.4 - 10.4 FL) 8.1 Gran % (42.2 - 75.2 %) 67.7 Lymphocytes % (20.5 - 51.1 %) 12.1 L Monocytes % (1.7 - 9.3 %) 16.0 H Eosinophils % (0 - 5 %) 3.8 Basophils % (0.0 - 2.0 %) 0.4 Absolute Granulocytes (1.4 - 6.5 /CUMM) 4.9 Absolute Lymphocytes (1.2 - 3.4 /CUMM) 0.9 L Absolute Monocytes (0.10 - 0.60 /CUMM) 1.2 H Absolute Eosinophils (0.0 - 0.7 /CUMM) 0.3 Absolute Basophils (0.0 - 0.2 /CUMM) 0 PUBS MCHC (33.0 - 37.0 G/DL) 31.5 L 07/22 0815 Chemistry Sodium Cancelled Potassium Cancelled Chloride Cancelled Carbon Dioxide Cancelled Anion Gap Cancelled BUN Cancelled Creatinine Cancelled BUN/Creatinine Ratio Cancelled Hematology CBC w Diff NO MAN DIFF REQ WBC (4.8 - 10.8 /CUMM) 6.5 RBC (4.70 - 6.10 /CUMM) 3.19 L Hgb (14.0 - 18.0 G/DL) 8.9 L Hct (42 - 52 %) 28.7 L MCV (80.0 - 94.0 FL) 90.1 MCH (27.0 - 31.0 PG) 28.0 RDW (11.5 - 14.5 %) 18.5 H Plt Count (130 - 400 /CUMM) 459 H MPV (7.4 - 10.4 FL) 8.4 Gran % (42.2 - 75.2 %) 63.9 Lymphocytes % (20.5 - 51.1 %) 15.7 L Monocytes % (1.7 - 9.3 %) 14.2 H Eosinophils % (0 - 5 %) 4.5 Basophils % (0.0 - 2.0 %) 1.7 Absolute Granulocytes (1.4 - 6.5 /CUMM) 4.1 Absolute Lymphocytes (1.2 - 3.4 /CUMM) 1.0 L Absolute Monocytes (0.10 - 0.60 /CUMM) 0.9 H Absolute Eosinophils (0.0 - 0.7 /CUMM) 0.3 Absolute Basophils (0.0 - 0.2 /CUMM) 0.1 PUBS MCHC (33.0 - 37.0 G/DL) 31.1 L
--- NOTE | 2016-07-23 08:34 | NUR ---
LATE ENTRY: @ 0300 PT NOTED TO BE UNRESPOSIVE. VSS, BS LESS THAN 50. RAPID RESPONSE WAS CALLED. 1 1/2 AMPS OF DEXTROSE GIVEN. PT SENT FOR A CT SCAN. @ 034O NEGATIVE CT SCAN
--- NOTE | 2016-07-23 08:36 | NUR ---
LATE ENTRY: @ 3402 PT'S BS 158
--- NOTE | 2016-07-23 08:37 | NUR ---
0700 IV LEAKING. NEW IV PLACED
--- NOTE | 2016-07-23 08:37 | NUR ---
LATE ENTRY @ 0600 PT BS 66. # 929 CALLED . 1 AMP OF DEXTROSE GIVEN
--- NOTE | 2016-07-23 08:38 | NUR ---
0722 PT'S BS 95
[2016-07-23] MEDS ORDERED: PREDNISONE2.5 M1 PO (10:52)
--- NOTE | 2016-07-23 11:39 | PN- Infect Dx ---
Subjective Subjective: MAXIMUM TEMPERATURE 101.2. He continues to have intermittent episodes of lethargy and confusion. He was apparently alert earlier this morning, but was noted to have hypoglycemia overnight with the blood sugar less than 50. He has not received any Percocet since late on July 21. Objective Last 24 Hrs of Vital Signs/I&O Vital Signs Date Time Temp Pulse Resp B/P Pulse O2 O2 Flow FiO2 Ox Delivery Rate 07/23 0949 86 144/74 07/23 0949 86 144/74 07/23 0949 86 144/74 07/23 0800 Nasal 2.0L Cannula 07/23 0737 97.4 86 20 144/74 93 Nasal 2.0L Cannula 07/23 0320 95 Nasal 2.0L Cannula 07/22 2342 99.1 94 20 126/62 93 07/22 2112 95 128/60 07/22 2015 99.2 07/22 1915 99.0 07/22 1809 100.5 07/22 1800 100.5 07/22 1710 101.2 07/22 1645 101.2 07/22 1617 100.7 65 20 112/60 92 07/22 1600 95 Room Air 07/22 1250 98.4 90 18 120/78 93 Room Air Intake & Output 07/23 1600 07/23 0800 07/23 0000 Intake Total 360 Output Total Balance 360 Intake, Oral 360 Number 2 Bowel Movements Patient 158 lb Weight Physical Exam Other Physical Findings: He is currently lethargic, difficult to engage in any conversation. Chest tunnelled catheter in the right upper chest with no inflammation at the site Lungs decreased breath sounds bilaterally Heart regular rhythm with no murmur Abdomen is soft, with no obvious tenderness, positive bowel sounds Extremities left leg necrotic ulcers unchanged, with no surrounding erythema Results Last 24 Hours of Lab Results: Laboratory Tests 07/23 07/23 0600 0550 Blood Gas pH (7.35 - 7.45 PH) 7.46 H pCO2 (35 - 45 TORR) 38 pO2 (80 - 100 TORR) 100 HCO3 (21 - 28 MEQ/L) 27 ABG O2 Sat (Measured) (>96.0 %) 97.0 P-50 (Temp Corrected) Y Carboxyhemoglobin (1.5 - 5.0 %) 0.3 L O2 Concentration % 2 LPM Temperature (97.0 - 100.0 FARH) 99.1 O2 Delivery Method N/C Chemistry Sodium Cancelled Potassium Cancelled Chloride Cancelled Carbon Dioxide Cancelled Anion Gap Cancelled BUN Cancelled Creatinine Cancelled BUN/Creatinine Ratio Cancelled Hematology CBC w Diff Cancelled WBC Cancelled RBC Cancelled Hgb Cancelled Hct Cancelled MCV Cancelled MCH Cancelled RDW Cancelled Plt Count Cancelled MPV Cancelled PUBS MCHC Cancelled Miscellaneous Phlebotomy Draw Site LEFT BRACHIAL 07/23 07/22 7521 0641 Chemistry Sodium (137 - 145 mmol/L) 140 Potassium (3.5 - 5.1 mmol/L) 4.1 Chloride (98 - 107 mmol/L) 101 Carbon Dioxide (22 - 30 mmol/L) 31 H Anion Gap (5 - 16) 7 BUN (9 - 20 mg/dL) 13 Creatinine (0.7 - 1.2 mg/dL) 2.1 H Estimated GFR (>60 ml/min) 31 L BUN/Creatinine Ratio (7 - 25 %) 6.2 L Troponin I (<0.11 ng/ml) 0.02 Coagulation PT (9.4 - 12.5 SEC) 39.3 H INR (0.90 - 1.17) 3.79 H Hematology CBC w Diff NO MAN DIFF REQ WBC (4.8 - 10.8 /CUMM) 8.0 RBC (4.70 - 6.10 /CUMM) 3.19 L Hgb (14.0 - 18.0 G/DL) 9.0 L Hct (42 - 52 %) 28.9 L MCV (80.0 - 94.0 FL) 90.6 MCH (27.0 - 31.0 PG) 28.4 RDW (11.5 - 14.5 %) 19.1 H Plt Count (130 - 400 /CUMM) 397 MPV (7.4 - 10.4 FL) 8.2 Gran % (42.2 - 75.2 %) 70.9 Lymphocytes % (20.5 - 51.1 %) 10.5 L Monocytes % (1.7 - 9.3 %) 15.1 H Eosinophils % (0 - 5 %) 3.4 Basophils % (0.0 - 2.0 %) 0.1 Absolute Granulocytes (1.4 - 6.5 /CUMM) 5.7 Absolute Lymphocytes (1.2 - 3.4 /CUMM) 0.8 L Absolute Monocytes (0.10 - 0.60 /CUMM) 1.2 H Absolute Eosinophils (0.0 - 0.7 /CUMM) 0.3 Absolute Basophils (0.0 - 0.2 /CUMM) 0 PUBS MCHC (33.0 - 37.0 G/DL) 31.3 L Urines Urine Color (YEL,AMB,STR) STRAW Urine Clarity (CLEAR) CLDY H Urine pH (5.0 - 8.0) 7.0 Ur Specific [place] (1.001 - 1.035) 1.025 Urine Protein (NEG,<30 MG/DL) >=300 H Urine Ketones (NEG) NEG Urine Nitrite (NEG) NEG Urine Bilirubin (NEG) NEG Urine Urobilinogen (0.1 - 1.0 EU/dl) 0.2 Ur Leukocyte Esterase (NEG) LARGE H Ur Microscopic SEDIMENT EXAMINED Urine RBC (0 - 5 /HPF) 1-3 Urine WBC (0 - 2 /HPF) > 75 H Urine Hemoglobin (NEG) LARGE H Urine Glucose (N MG/DL) NEG 07/22 07/22 1645 1645 Chemistry Sodium (137 - 145 mmol/L) 141 Potassium (3.5 - 5.1 mmol/L) 3.9 Chloride (98 - 107 mmol/L) 104 Carbon Dioxide (22 - 30 mmol/L) 30 Anion Gap (5 - 16) 7 BUN (9 - 20 mg/dL) 9 Creatinine (0.7 - 1.2 mg/dL) 1.6 H Estimated GFR (>60 ml/min) 42 L BUN/Creatinine Ratio (7 - 25 %) 5.6 L Coagulation PT (9.4 - 12.5 SEC) Cancelled 37.3 H INR (0.90 - 1.17) Cancelled 3.60 H Hematology CBC w Diff NO MAN DIFF REQ WBC (4.8 - 10.8 /CUMM) 7.2 RBC (4.70 - 6.10 /CUMM) 3.37 L Hgb (14.0 - 18.0 G/DL) 9.5 L Hct (42 - 52 %) 30.1 L MCV (80.0 - 94.0 FL) 89.3 MCH (27.0 - 31.0 PG) 28.2 RDW (11.5 - 14.5 %) 18.5 H Plt Count (130 - 400 /CUMM) 450 H MPV (7.4 - 10.4 FL) 8.1 Gran % (42.2 - 75.2 %) 67.7 Lymphocytes % (20.5 - 51.1 %) 12.1 L Monocytes % (1.7 - 9.3 %) 16.0 H Eosinophils % (0 - 5 %) 3.8 Basophils % (0.0 - 2.0 %) 0.4 Absolute Granulocytes (1.4 - 6.5 /CUMM) 4.9 Absolute Lymphocytes (1.2 - 3.4 /CUMM) 0.9 L Absolute Monocytes (0.10 - 0.60 /CUMM) 1.2 H Absolute Eosinophils (0.0 - 0.7 /CUMM) 0.3 Absolute Basophils (0.0 - 0.2 /CUMM) 0 PUBS MCHC (33.0 - 37.0 G/DL) 31.5 L Last 24 Hours of [place] Results: Blood cultures 2 July 22 negative Urine culture July 22 negative Recent Imaging Studies: Chest x-ray July 23, personally reviewed, reveals no change in the triangular-shaped patchy peripheral density in the right midlung; improved aeration of the left lower lobe Assessment/Plan Impression: Recurrent fever with no obvious source of infection now off antibiotics, with cultures and chest x-ray so far nonrevealing. A previous urine culture did grow Vanita, and he continues to have pyuria, though no urinary symptoms have been reported and, particularly with his renal failure, the significance of this culture is unclear. His left leg necrotic ulcerations could be the source of his fevers, though they do not appear to have changed. Certainly his dialysis catheter could also be implicated, though his recent blood cultures remain negative. The etiology of his intermittent episodes of confusion and lethargy is unclear. He has not received pain medication for 36 hours; therefore it is difficult to implicate this, and they may be related to hypoglycemia. Suggestion: 1. Follow-up recent cultures 2. Vascular surgery follow-up regarding his left leg ulcers 3. Continue to follow off antibiotics pending above
[2016-07-23 16:13] VITALS: BP 138/78
--- NOTE | 2016-07-23 16:47 | PN- Nephrology ---
Assessment/Plan Assessment: 1. ESRD likely secondary to diabetic nephropathy 2. Recurrent fevers; WBC remains normal; repeat culture results pending; I believe that the likely source of fever is still his left leg although other possibilities include lung and his dialysis catheter; he has also grown Vanita from his urine; currently off antibiotics 3. Diabetes mellitus with peripheral vascular disease status post right TMA, status post debridement left leg/ankle ulcer 4. Anemia - on Epogen and IV iron 5. Antiphospholipid antibody syndrome status post DVT Suggestion: 1. Hemodialysis scheduled for tomorrow 2. Management of fevers per ID 3. Vascular surgery, podiatry and wound service following Subjective Subjective: Patient remains lethargic and at times confused. He continues to complain of pain and tenderness in the left leg area just above the ankle. Currently off of antibiotics. Tmax 101.2 yesterday, afebrile today. Objective Vital Signs and I&Os Vital Signs Date Time Temp Pulse Resp B/P Pulse O2 O2 Flow FiO2 Ox Delivery Rate 07/23 1613 97.8 84 19 138/78 93 Nasal 3.0L Cannula 07/23 0949 86 144/74 07/23 0949 86 144/74 07/23 0949 86 144/74 07/23 0800 Nasal 2.0L Cannula 07/23 0737 97.4 86 20 144/74 93 Nasal 2.0L Cannula 07/23 0320 95 Nasal 2.0L Cannula 07/22 2342 99.1 94 20 126/62 93 07/22 2112 95 128/60 07/22 2015 99.2 07/22 1915 99.0 07/22 1809 100.5 07/22 1800 100.5 07/22 1710 101.2 07/22 1645 101.2 Intake & Output 07/23 1600 07/23 0400 07/22 1600 07/22 0400 07/21 1600 07/21 0400 Intake Total 990 360 387 820 8587 360 Output Total 200 Balance 990 360 223 590 6731 360 Intake, IV 0 10 Intake, Oral 990 360 486 167 8684 360 Number 3 2 0 1 3 2 Bowel Movements Output, Urine 200 Patient 158 lb 153 lb 155 lb Weight Physical Exam: General: Well-developed white male in NAD Skin: No rash or jaundice HEENT: Conjunctivae pink, sclerae anicteric, mucous membranes moist Neck: Without masses or thyromegaly, no supraclavicular or cervical adenopathy; there is a right IJ tunneled dialysis catheter in place Chest: Scattered rhonchi anterolaterally Heart: Regular rate and rhythm without S3 or rub Abdomen: Soft and nontender without palpable masses or organomegaly Extremities: Lower extremity dressing intact, trace-1+ edema on left Neuro: No focal findings, no asterixis or myoclonus Current Medications: Current Medications Sig/Kailash Start time Last Medication Dose Route Stop Time Status Admin Acetaminophen 650 MG Q6P PRN 07/22 1700 AC 07/23 PO 1103 Acetaminophen 500 MG Q6P PRN 07/02 0815 DC 07/18 PO 1555 Aspirin 81 MG DAILY 07/01 1000 AC 07/23 PO 0949 Atorvastatin Calcium 40 MG 1700 06/30 1700 AC 07/23 PO 1636 Carvedilol 25 MG BID 06/30 2200 AC 07/23 PO 0949 Dextrose 25 GM ONCE ONE 07/23 0615 DC 07/23 IV 07/23 0616 0615 Dextrose 12.5 GM ONCE ONE 07/23 0330 DC 07/23 IV 07/23 0331 0330 Dextrose 25 GM ONCE ONE 07/23 0315 DC 07/23 IV 07/23 0316 0315 Dextrose/Sodium 1,000 ML Q13H 07/23 0330 DC Chloride IV Diphenoxylate HCl/ 2.5 MG TID PRN 07/16 1200 DC 07/18 Atropine PO 1800 Epoetin Ludwig 3,000 UNIT MoWeFr PRN 07/08 1200 AC IV Epoetin Ludwig 2,000 UNIT MoWeFr PRN 07/08 1200 AC IV Guaifenesin 600 MG Q12 07/18 1000 AC 07/23 PO 0949 Insulin Aspart 0 TIDAC/HS 06/30 2100 AC 07/23 SC 1241 Insulin Detemir 4 UNITS QAM 07/23 1000 AC 07/23 SC 0950 Insulin Detemir 4 UNITS BID 07/21 2200 DC 07/22 SC 2111 Iron Sucrose 100 MG PER PROTOCL PRN 07/01 1430 AC 07/03 Sodium Chloride 100 ML IV 1221 Isosorbide 30 MG DAILY 07/09 1056 AC 07/23 Mononitrate PO 0949 Multivitamins 1 TAB DAILY 07/01 1000 AC 07/23 PO 0949 Omeprazole 40 MG DAILY AC 07/14 0700 AC 07/23 PO 0614 Oxycodone/ 2 TAB Q6P PRN 07/11 2230 AC 07/21 Acetaminophen PO 2356 Prednisone 5 MG DAILY 07/24 1000 AC PO 07/30 1001 Prednisone 7.5 MG DAILY 07/14 1000 DC 07/23 PO 0950 Sevelamer Carbonate 800 MG WITH MEALS 06/30 1200 AC 07/23 PO 1636 Sodium Chloride 2 SPRAY Q10MIN PRN 07/12 0230 AC CARLITOS Sodium Hypochlorite 1 CHAITANYA BID 07/05 1113 AC 07/23 TOP 0950 Tamsulosin HCl 0.4 MG DAILY 07/01 1000 AC 07/23 PO 0949 Vitamin A/Vitamin D 1 CHAITANYA BID 06/30 2200 AC 07/23 TOP 0950 Zinc Oxide 1 CHAITANYA BID 06/30 2200 AC 07/23 TOP 0950 Results Pertinent Lab Results: Laboratory Tests 07/23 07/23 0600 0550 Blood Gas pH (7.35 - 7.45 PH) 7.46 H pCO2 (35 - 45 TORR) 38 pO2 (80 - 100 TORR) 100 HCO3 (21 - 28 MEQ/L) 27 ABG O2 Sat (Measured) (>96.0 %) 97.0 P-50 (Temp Corrected) Y Carboxyhemoglobin (1.5 - 5.0 %) 0.3 L O2 Concentration % 2 LPM Temperature (97.0 - 100.0 FARH) 99.1 O2 Delivery Method N/C Chemistry Sodium Cancelled Potassium Cancelled Chloride Cancelled Carbon Dioxide Cancelled Anion Gap Cancelled BUN Cancelled Creatinine Cancelled BUN/Creatinine Ratio Cancelled Hematology CBC w Diff Cancelled WBC Cancelled RBC Cancelled Hgb Cancelled Hct Cancelled MCV Cancelled MCH Cancelled RDW Cancelled Plt Count Cancelled MPV Cancelled PUBS MCHC Cancelled Miscellaneous Phlebotomy Draw Site LEFT BRACHIAL 07/233 0 Chemistry Sodium (137 - 145 mmol/L) 140 Potassium (3.5 - 5.1 mmol/L) 4.1 Chloride (98 - 107 mmol/L) 101 Carbon Dioxide (22 - 30 mmol/L) 31 H Anion Gap (5 - 16) 7 BUN (9 - 20 mg/dL) 13 Creatinine (0.7 - 1.2 mg/dL) 2.1 H Estimated GFR (>60 ml/min) 31 L BUN/Creatinine Ratio (7 - 25 %) 6.2 L Troponin I (<0.11 ng/ml) 0.02 Coagulation PT (9.4 - 12.5 SEC) 39.3 H INR (0.90 - 1.17) 3.79 H Hematology CBC w Diff NO MAN DIFF REQ WBC (4.8 - 10.8 /CUMM) 8.0 RBC (4.70 - 6.10 /CUMM) 3.19 L Hgb (14.0 - 18.0 G/DL) 9.0 L Hct (42 - 52 %) 28.9 L MCV (80.0 - 94.0 FL) 90.6 MCH (27.0 - 31.0 PG) 28.4 RDW (11.5 - 14.5 %) 19.1 H Plt Count (130 - 400 /CUMM) 397 MPV (7.4 - 10.4 FL) 8.2 Gran % (42.2 - 75.2 %) 70.9 Lymphocytes % (20.5 - 51.1 %) 10.5 L Monocytes % (1.7 - 9.3 %) 15.1 H Eosinophils % (0 - 5 %) 3.4 Basophils % (0.0 - 2.0 %) 0.1 Absolute Granulocytes (1.4 - 6.5 /CUMM) 5.7 Absolute Lymphocytes (1.2 - 3.4 /CUMM) 0.8 L Absolute Monocytes (0.10 - 0.60 /CUMM) 1.2 H Absolute Eosinophils (0.0 - 0.7 /CUMM) 0.3 Absolute Basophils (0.0 - 0.2 /CUMM) 0 PUBS MCHC (33.0 - 37.0 G/DL) 31.3 L Urines Urine Color (YEL,AMB,STR) STRAW Urine Clarity (CLEAR) CLDY H Urine pH (5.0 - 8.0) 7.0 Ur Specific [place] (1.001 - 1.035) 1.025 Urine Protein (NEG,<30 MG/DL) >=300 H Urine Ketones (NEG) NEG Urine Nitrite (NEG) NEG Urine Bilirubin (NEG) NEG Urine Urobilinogen (0.1 - 1.0 EU/dl) 0.2 Ur Leukocyte Esterase (NEG) LARGE H Ur Microscopic SEDIMENT EXAMINED Urine RBC (0 - 5 /HPF) 1-3 Urine WBC (0 - 2 /HPF) > 75 H Urine Hemoglobin (NEG) LARGE H Urine Glucose (N MG/DL) NEG 07/22 07/22 1645 1645 Chemistry Sodium (137 - 145 mmol/L) 141 Potassium (3.5 - 5.1 mmol/L) 3.9 Chloride (98 - 107 mmol/L) 104 Carbon Dioxide (22 - 30 mmol/L) 30 Anion Gap (5 - 16) 7 BUN (9 - 20 mg/dL) 9 Creatinine (0.7 - 1.2 mg/dL) 1.6 H Estimated GFR (>60 ml/min) 42 L BUN/Creatinine Ratio (7 - 25 %) 5.6 L Coagulation PT (9.4 - 12.5 SEC) Cancelled 37.3 H INR (0.90 - 1.17) Cancelled 3.60 H Hematology CBC w Diff NO MAN DIFF REQ WBC (4.8 - 10.8 /CUMM) 7.2 RBC (4.70 - 6.10 /CUMM) 3.37 L Hgb (14.0 - 18.0 G/DL) 9.5 L Hct (42 - 52 %) 30.1 L MCV (80.0 - 94.0 FL) 89.3 MCH (27.0 - 31.0 PG) 28.2 RDW (11.5 - 14.5 %) 18.5 H Plt Count (130 - 400 /CUMM) 450 H MPV (7.4 - 10.4 FL) 8.1 Gran % (42.2 - 75.2 %) 67.7 Lymphocytes % (20.5 - 51.1 %) 12.1 L Monocytes % (1.7 - 9.3 %) 16.0 H Eosinophils % (0 - 5 %) 3.8 Basophils % (0.0 - 2.0 %) 0.4 Absolute Granulocytes (1.4 - 6.5 /CUMM) 4.9 Absolute Lymphocytes (1.2 - 3.4 /CUMM) 0.9 L Absolute Monocytes (0.10 - 0.60 /CUMM) 1.2 H Absolute Eosinophils (0.0 - 0.7 /CUMM) 0.3 Absolute Basophils (0.0 - 0.2 /CUMM) 0 PUBS MCHC (33.0 - 37.0 G/DL) 31.5 L 07/22 07/21 0815 7755 Chemistry Sodium Cancelled Potassium Cancelled Chloride Cancelled Carbon Dioxide Cancelled Anion Gap Cancelled BUN Cancelled Creatinine Cancelled BUN/Creatinine Ratio Cancelled Coagulation PT (9.4 - 12.5 SEC) 21.0 H INR (0.90 - 1.17) 2.01 H Hematology CBC w Diff NO MAN DIFF REQ MAN DIFF ORDERED WBC (4.8 - 10.8 /CUMM) 6.5 5.9 RBC (4.70 - 6.10 /CUMM) 3.19 L 3.36 L Hgb (14.0 - 18.0 G/DL) 8.9 L 9.6 L Hct (42 - 52 %) 28.7 L 30.2 L MCV (80.0 - 94.0 FL) 90.1 90.1 MCH (27.0 - 31.0 PG) 28.0 28.6 RDW (11.5 - 14.5 %) 18.5 H 18.4 H Plt Count (130 - 400 /CUMM) 459 H 414 H MPV (7.4 - 10.4 FL) 8.4 8.6 Gran % (42.2 - 75.2 %) 63.9 62.9 Lymphocytes % (20.5 - 51.1 %) 15.7 L 13.4 L Monocytes % (1.7 - 9.3 %) 14.2 H 20.4 H Eosinophils % (0 - 5 %) 4.5 3.1 Basophils % (0.0 - 2.0 %) 1.7 0.2 Absolute Granulocytes (1.4 - 6.5 /CUMM) 4.1 3.7 Segmented Neutrophils (42.2 - 75.2 %) 60 Band Neutrophils (0.0 - 5.0 %) 8 H Absolute Lymphocytes (1.2 - 3.4 /CUMM) 1.0 L 0.8 L Lymphocytes (20.5 - 51.1 %) 10 L Monocytes (1.7 - 9.3 %) 16 H Absolute Monocytes (0.10 - 0.60 /CUMM) 0.9 H 1.2 H Eosinophils (0 - 5.0 %) 4 Absolute Eosinophils (0.0 - 0.7 /CUMM) 0.3 0.2 Basophils (0.0 - 2.0 %) 1 Absolute Basophils (0.0 - 0.2 /CUMM) 0.1 0 Metamyelocytes (0.0 - 1.0 %) 1 Nucleated RBCs (0.0 - 0.0 /100WBC) 1 H Platelet Estimate (ADEQUATE) ADEQUATE Polychromasia 1+ Hypochromic-Microcytic 1+ Poikilocytosis 1+ PUBS MCHC (33.0 - 37.0 G/DL) 31.1 L 31.8 L
--- NOTE | 2016-07-23 23:28 | RADIOLOGY REPORT ---
EXAMINATION: XR PORTABLE CHEST CLINICAL INFORMATION: Fever. COMPARISON: Chest x-ray 07/23/2016 3:50 AM. TECHNIQUE: Portable view of the chest was obtained. FINDINGS: Right IJ catheter tip at cavoatrial junction. Lung volume is low. This causes crowding of the bronchovascular markings. No significant pulmonary vascular congestion. Persistent small peripheral infiltrate in the right upper lobe along the minor fissure. No pleural effusion. Significant degenerative arthropathy of the right glenohumeral joint partially imaged. IMPRESSION: Persistent small peripheral right upper lobe infiltrate.
[2016-07-24 00:08] VITALS: BP 132/70
[2016-07-24 06:00] VITALS: BP 138/78
[2016-07-24 07:31] VITALS: BP 114/64
--- NOTE | 2016-07-24 07:44 | PN- Housestaff ---
ESTELA HEATH,[facility] 07/24/16 0744: Subjective Follow-up For: Left lower leg non healing ulcer acute blood loss anemia Subjective: Patient seen and examined this morning. He was alert and oriented and in much better spirits today. He is scheduled for dialysis today. He remains in pain secondary to his left lower leg nonhealing ulcer. Last night he spiked fever again, will get CT scan of the chest and abdomen to find out if there is any source of infection causing these fevers. Review of Systems Constitutional: Reports: fever. Denies: chills. Cardiovascular: Denies: chest pain, palpitations. Respiratory: Reports: cough, sputum production. Denies: short of breath. Gastrointestinal: Reports: see HPI, diarrhea. Denies: abdominal pain, constipation, nausea, vomiting. Musculoskeletal: Reports: see HPI. Objective Last 24 Hrs of Vital Signs/I&O Vital Signs Date Time Temp Pulse Resp B/P Pulse O2 O2 Flow FiO2 Ox Delivery Rate 07/24 1057 96 114/60 07/24 1057 96 114/60 07/24 1057 96 114/60 07/24 0800 94 Nasal 2.0L Cannula 07/24 0731 98.5 99 20 114/64 94 Nasal 2.0L Cannula 07/24 0600 97.8 93 20 138/78 94 Nasal 2.0L Cannula 07/24 0300 98.2 07/24 0143 98.2 07/24 0044 101.6 07/24 0008 101.4 97 18 132/70 96 Nasal 3.0L Cannula 07/24 0000 94 Nasal 2.0L Cannula 07/23 2300 84 138/78 07/23 1613 97.8 84 19 138/78 93 Nasal 3.0L Cannula Intake & Output 07/24 1600 07/24 0800 07/24 0000 Intake Total 560 360 Output Total 0 100 Balance 560 260 Intake, IV 0 Intake, Oral 560 360 Number 4 1 1 Bowel Movements Output, Urine 0 100 Patient 70.931 kg Weight Physical Exam General Appearance: Alert, Oriented X3, Cooperative, No Acute Distress Cardiovascular: Regular Rate, Normal S1, Normal S2 Lungs: Clear to Auscultation, Normal Air Movement Abdomen: Normal Bowel Sounds, Soft, No Tenderness Current Medications: Current Medications Sig/Kailash Start time Last Medication Dose Route Stop Time Status Admin Acetaminophen 650 MG .STK-MED ONE 12/28 0043 DC PO 07/24 0044 Acetaminophen 650 MG Q6P PRN 07/22 1700 AC 07/24 PO 0044 Aspirin 81 MG DAILY 07/01 1000 AC 07/24 PO 1057 Atorvastatin Calcium 40 MG 1700 06/30 1700 AC 07/23 PO 1636 Carvedilol 25 MG BID 06/30 2200 AC 07/24 PO 1057 Epoetin Ludwig 3,000 UNIT MoWeFr PRN 07/08 1200 AC IV Epoetin Ludwig 2,000 UNIT MoWeFr PRN 07/08 1200 AC IV Guaifenesin 600 MG Q12 07/18 1000 AC 07/24 PO 1056 Insulin Aspart 0 TIDAC/HS 06/30 2100 AC 07/24 SC 1145 Insulin Detemir 4 UNITS QAM 07/23 1000 AC 07/24 SC 1057 Iron Sucrose 100 MG PER PROTOCL PRN 07/01 1430 AC 07/03 Sodium Chloride 100 ML IV 1221 Isosorbide 30 MG DAILY 07/09 1056 AC 07/24 Mononitrate PO 1057 Multivitamins 1 TAB DAILY 07/01 1000 AC 07/24 PO 1056 Omeprazole 40 MG DAILY AC 07/14 0700 AC 07/24 PO 0654 Oxycodone/ 2 TAB Q6P PRN 07/11 2230 AC 07/24 Acetaminophen PO 0824 Prednisone 5 MG DAILY 07/24 1000 AC 07/24 PO 07/30 1001 1056 Sevelamer Carbonate 800 MG WITH MEALS 06/30 1200 AC 07/24 PO 1145 Sodium Chloride 2 SPRAY Q10MIN PRN 07/12 0230 AC CARLITOS Sodium Hypochlorite 1 CHAITANYA BID 07/05 1113 AC 07/24 TOP 0700 Tamsulosin HCl 0.4 MG DAILY 07/01 1000 AC 07/24 PO 1057 Vitamin A/Vitamin D 1 CHAITANYA BID 06/30 2200 AC 07/24 TOP 1100 Warfarin Sodium 2.5 MG COUMADIN 1700 ONE 07/24 1700 AC PO 07/24 1701 Zinc Oxide 1 CHAITANYA BID 06/30 2200 AC 07/24 TOP 1100 Last 24 Hrs of Lab/[place]tar Results Last 24 Hrs of Labs/Mics: Laboratory Tests 07/24/16 1250: CBC w Diff NO MAN DIFF REQ, RBC 3.01 L, MCV 89.8, MCH 27.7, RDW 18.7 H, MPV 8.5, Gran % 78.5 H, Lymphocytes % 8.0 L, Monocytes % 11.7 H, Eosinophils % 1.6, Basophils % 0.2, Absolute Granulocytes 9.3 H, Absolute Lymphocytes 0.9 L, Absolute Monocytes 1.4 H, Absolute Eosinophils 0.2, Absolute Basophils 0, PUBS MCHC 30.8 L 07/24/16 1150: Anion Gap 7, Estimated GFR 20 L, BUN/Creatinine Ratio 8.1, Glucose 204 H, Calcium 8.0 L, Phosphorus 3.1, Magnesium 1.6, Albumin 2.2 L, Hep Bs Antigen NONREACTIVE, Hep Bs Antibody NONREACTIVE 07/24/16 0650: PT 23.9 H, INR 2.29 H 07/24/16 0110: Urine Color YEL, Urine Clarity TURBD H, Urine pH 6.5, Ur Specific [place] 1.025 , Urine Protein 100 H, Urine Ketones NEG, Urine Nitrite NEG, Urine Bilirubin NEG, Urine Urobilinogen 0.2, Ur Leukocyte Esterase LARGE H, Ur Microscopic SEDIMENT EXAMINED, Urine RBC 10-15 H, Urine WBC PACKD H, Urine Hemoglobin LARGE H, Urine Glucose 250 H Microbiology 07/24 1440 BLOOD: Blood Culture - RECD 07/24 1410 BLOOD: Blood Culture - RECD 07/24 1348 BLOOD: Blood Culture - ORD 07/24 134 BLOOD: Blood Culture - ORD 07/24 1015 STOOL: Clostridium difficile Toxin A & B - COMP 07/24 011 URINE ROUT: Urine Culture - RECD 07/23 2156 LOWER RESP: Respiratory Culture - CAN Cancelled: NO SAMPL COLLECTED 07/23 2156 LOWER RESP: Gram Stain - CAN Cancelled: NO SAMPL COLLECTED 07/23 2156 BLOOD: Blood Culture - CAN Cancelled: NO BLOOD COLLECTED\ 07/23 2156 BLOOD: Blood Culture - CAN Cancelled: NO BLOOD COLLECTED\ Assessment/Plan Assessment: 75 y/o M with PMHx of antiphospholipid antibody syndrome, diabetes and CKD who presented with SOB, hoarseness and stridor, found to be uremic with initiation of HD, s/p debridement of chronic left leg ulcer, on IV vancomycin for soft tissue infection, currently awaiting outpatient dialysis slot. Fever of unknown origin: Overnight fver spikes, MAXIMUM TEMPERATURE 101.6 Recently treated with vancomycin and ceftazidime for possible aspiration pneumonia secondary to gram-negative organisms CT abdomen and chest has not revealed any source of infection, blood cultures pending For now we will cont to monitor off antibiotics, ID following, will follow recs Anemia : Etiology multifactorial. Currently HDS. Per GI anemia likely secondary to other causes then GI. Will have patient follow-up with GI as an outpatient. We'll continue iron supplementation and Epogen. Chest Pain: Resolved. On 07/09 patient had chest pain, ekg-no acute changes. Troponins elevated at 0.14. patient was transferred to telemetry floor for continuous cardiac monitoring, cardiology on board repeat troponin trended down. Chronic left lower extremity ulcer: Has chronic nonhealing ulcers of left leg for which he sees Dr. Pretty as outpatient. S/p excisional debridement through the subcutaneous and muscular tissue with reported seropurulent drainage (06/30) and OR cultures growing diphthteroids and coag-negative Staph. Although these are not typically pathogenic organisms, currently on IV vancomycin for possible soft tissue infection.Wound appears improved, however patient complains of severe pain concerning for ischemia. * ID following * Vancomycin completed * Vascular surgery consulted again. no intervention suggested Antiphospholipid antibody syndrome: chronic right upper extremity DVT. On life- long anti-coagulation with warfarin, takes 5 mg PO QD. * Continue to check INR daily and dose warfarin accordingly to keep INR between 2-3. * INR 2.29 today - 2.5mg warfarin today. ESRD: Cr was 5 on admission, with gradual increase from 2-3 within the past year. Most likely etiology is progressive diabetic nephropathy. Mj cath was placed and urgent hemodialysis was initiated (06/26) with improvement of mental status. Patient is currently awaiting outpatient dialysis slot. * Nephrology following * Continue HD MW * No PICC lines should be inserted per Nephrology, as patient will need vein site for placement of graft. * Continue sevelamer 800 mg PO TIDAC. * Continue daily Nephrocaps T2DM: Uncontrolled blood sugars this admission, secondary to steroids. * Endocrinology following * Levemir 4U SQ DAILY * Continue NovoLog SSI TIDAC as suggested HTN: Takes amlodipine 10 mg PO QD, carvedilol 25 mg PO BID, furosemide 80 mg PO BID and hydralazine 50 mg PO BID at home. * Holding home amlodipine, furosemide and hydralazine. * Continue home carvedilol. Crohn's disease: Patient has been taking prednisone 10 mg PO QD for many years to prevent flares. * prednisone dose 7.5 mg daily. As per recommendations from GI and tapering for 2 weeks as tolerated. * Aspirin GI, the patient to remain on aspirin, Protonix needed to be added. * C diff was added to rule out C diff toxin infection. Blood cultures were sent. Diet: Renal Dialysis Diet (regular and nectar thick liquids) DVT PPx: Warfarin and ALPs CODE: FULL Problem List: 1. Cellulitis of leg, excluding foot 2. Peripheral vascular disease 3. Type 2 diabetes mellitus 4. Chronic ulcer of left lower extremity 5. Antiphospholipid antibody syndrome 6. End stage renal disease Pain Ratin Pain Location: Left lower extremity nonhealing ulcer Pain Goal: Remain pain free Pain Plan: Percocet Tomorrow's Labs & Rationales: INR for daily Coumadin dosing ARTURO HEATH,HARRY 07/24/16 1224: Attending MD Review Statement Attending Statement Attending MD Statement: examined this patient, discuss w/resident/PA/OPHTHALMIC TECHNICIAN, agreed w/resident/PA/OPHTHALMIC TECHNICIAN, discussed with family, reviewed EMR data (avail), discussed with nursing, discussed with case mgmt, amended to note Attending Assessment/Plan: Patient seen and examined. He remains febrile spiking a temperature 101.6 mL the hours of this morning. He is otherwise hemodynamically stable. He has no complaints other than mild cough and pain in his lower extremity weakness is chronic. His mental status continues to fluctuate [id number] between complete alertness and confusion. The confusion was initially attributed to his narcotic analgesics however he does not get the medication routinely. But only as needed for pain. He reports a mild nonproductive cough. denies any choking or difficulty swallowing. Several blood cultures to date have been negative. Urine cultures from the ongoing yeast however repeat cultures from early this morning and so far negative.. On examination lungs are clear bilaterally and abdomen is soft and nontender. CT chest abdomen done today on account of his fever is essentially negative with no acute infectious process noted. I did open up his left lower extremity wound to examined today. It appears to be healing appropriately although slowly. There is no evidence of surrounding erythema or discharge. The discoloration over the dorsal aspect of the left foot is unchanged. He has trace edema and no ischemic changes on the right lower extremity. Recommendations: -There is currently no obvious infectious etiology to explain his current fever. -Does not appear to be having a flareup of his inflammatory bowel disease. He has had no recent changes in bowel habits. -He has completed a course of vancomycin and ceftaz for possible healthcare associated pneumonia possibly secondary to gram-negative pathogens. -Follow-up with the ID service regarding need for abx. - would like a second a second opinion from vascular surgery from [place].
[2016-07-24 08:22] LABS: PT 23.9 SEC (9.4-12.5)
--- NOTE | 2016-07-24 08:25 | NUR ---
NURSING NOTE: PATIENT'S TEMP 101.4 @ 0044. TYLENOL 650ML GIVEN PER MANAGER OF [facility].RECHECKED TEMP 98.6 @ 2AM.
--- NOTE | 2016-07-24 11:14 | CT SCAN REPORT ---
EXAMINATION: CT CHEST WITH CONTRAST CT ABDOMEN AND PELVIS WITH CONTRAST CLINICAL INFORMATION: Fever of unknown origin. COMPARISON: Chest CT 06/26/2016. Abdominal CT 01/24/2016. TECHNIQUE: Multidetector volumetric imaging was performed through the chest, abdomen and pelvis following the administration of 95 mL of Optiray 320 intravenous contrast. Sagittal and coronal reformatted images were obtained on the technologist's workstation. Axial MIP volume rendering provided. DLP: 891 mGy-cm. FINDINGS: CHEST: Lungs: The central airways are patent. Trace pleural effusions are present with associated atelectasis. Patchy consolidation seen in the right upper lobe at the periphery. Minimal groundglass opacity seen at the periphery of the left upper lobe. When compared to the prior CT from 06/26/2016, this has improved. No pneumothorax. Mediastinum: The heart is mildly prominent. Coronary artery calcifications are present. Right-sided central venous catheter terminates at the cavoatrial junction. No pericardial effusion. No mediastinal lymphadenopathy. Chest Wall/Axilla: No axillary lymphadenopathy. Bilateral gynecomastia. ABDOMEN/PELVIS: Liver, Gallbladder, Biliary Tree: The liver is normal in size, shape, and attenuation. No focal hepatic lesion or biliary ductal dilatation is present. Cholelithiasis is noted. No gallbladder wall thickening or pericholecystic fluid. Pancreas: Atrophic with no focal abnormality. Spleen: Unremarkable. Adrenal Glands: Unremarkable. Kidneys and Ureters: The kidneys are somewhat atrophic. There is a left midpole 4.2 cm exophytic renal cyst. This is unchanged. No hydronephrosis or nephrolithiasis. The ureters are decompressed. Bladder: Unremarkable. Gastrointestinal Tract: Stomach appears unremarkable. A duodenal diverticulum is noted. The small bowel is not obstructed. There is no colonic wall thickening or inflammatory change. No free air or free fluid. Abdominal Wall: Small fat-containing left adrenal hernia. Lymphovascular Structures: Lymph nodes: Normal. Vascular: Diffuse atherosclerotic vascular calcifications. Pelvic Viscera: The prostate and seminal vesicles are unremarkable. OSSEOUS STRUCTURES: No suspicious sclerotic or lytic bone lesions are identified. There is a left hip arthroplasty noted. Degenerative changes are seen throughout the spine. IMPRESSION: 1. Trace bilateral pleural effusions with associated atelectasis. Patchy opacities in the upper lobes are noted, significantly improved from prior. Residual pneumonia is a consideration. 2. Cholelithiasis without evidence for acute cholecystitis. 3. No acute inflammatory changes of the abdomen or pelvis.
--- NOTE | 2016-07-24 12:12 | PN- Nephrology ---
See Addendum Assessment/Plan Assessment: ESRD. persistent fevers. likely leg source. Abd CT negative Will plan dialysis later today Suggestion: . Subjective Subjective: Persistent fever (Tm 101.6) Being watched off antibiotics. s/p Abdominal CT today. Objective Vital Signs and I&Os M NAD 114/60 96 98 Lungs clear Cor RRR Abd soft Ext left leg bandaged Results Pertinent Lab Results: labs pending
--- NOTE | 2016-07-24 12:30 | NUR ---
PATIENT OFF FLOOR VIA BED TO DIALYSIS WITH DISTRIBUTION; PATIENT IS A/OX2; 2L NC; HAD 2 LOOSE BM'S TODAY AND DID NOT URINATE; SEEN BY NEPHROLOGY IN ROOM PRIOR TO DEPARTURE FOR DIALYSIS; DRESSING TO LLE C/D/I; AWAITING REPORT/RETURN OF PATIENT TO FLOOR;
--- NOTE | 2016-07-24 13:08 | PN- Vascular Surgery ---
Subjective Subjective: Patient seen on dialysis. Patient has had persistent fevers, seen by infectious diseases well. He has a long-standing left calf wound, with history of debridement. He has been seen by vascular surgeons, and his arterial status is good. With persistent fevers, I was asked to reevaluate today. He has chronic pain in the left leg as well. Review of Systems Constitutional: Reports: fever. Cardiovascular: Reports: chest pain. Respiratory: Reports: short of breath. Objective Vital Signs and I&Os Vital Signs Date Time Temp Pulse Resp B/P Pulse O2 O2 Flow FiO2 Ox Delivery Rate 07/24 1057 96 114/60 07/24 1057 96 114/60 07/24 1057 96 114/60 07/24 0800 94 Nasal 2.0L Cannula 07/24 0731 98.5 99 20 114/64 94 Nasal 2.0L Cannula 07/24 0600 97.8 93 20 138/78 94 Nasal 2.0L Cannula 07/24 0300 98.2 07/24 0143 98.2 07/24 0044 101.6 07/24 0008 101.4 97 18 132/70 96 Nasal 3.0L Cannula 07/24 0000 94 Nasal 2.0L Cannula 07/23 2300 84 138/78 07/23 1613 97.8 84 19 138/78 93 Nasal 3.0L Cannula 07/23 1600 Nasal 2.0L Cannula Intake & Output 07/24 1600 07/24 0800 07/24 0000 07/23 1600 07/23 0800 07/23 0000 Intake Total 360 360 990 360 Output Total 0 100 Balance 360 260 990 360 Intake, IV 0 0 Intake, Oral 360 360 990 360 Number 2 1 1 3 2 Bowel Movements Output, Urine 0 100 Patient 70.931 kg 71.668 kg Weight Physical Exam General Appearance: well developed/nourished, no apparent distress Respiratory: normal breath sounds Cardiovascular: regular rate/rhythm Peripheral Pulses: 1+ popliteal (R) Extremities: left lower extremity: Full with excellent granulation; eschar towards lateral ankle. No erythema, no discharge. Assessment/Plan Assessment/Plan Chronic left lateral calf, ankle wound. Does not appear to be infected at this time. Excellent healing noted with good granulation tissue in the mid lateral calf. Continue local wound care for now. Problem List: 1. Chronic ulcer of left lower extremity Core Measures/Miscellaneous Venous Thromboembolism VTE Risk Factors: Immobility, paresis VTE Contraindications: No Contraindications VTE Prophylaxis Ordered Inpt: Pharm- Warfarin VTE Diagnosis: No VTE Type: NONE VTE Confirmed by (Test): NONE Beta Axel Is Beta Axel a Home Med? No If No, Why Not? hypotension Antibiotics Is Patient on Antibiotics? Yes
--- NOTE | 2016-07-24 14:01 | PN- Infect Dx ---
Subjective Subjective: MAXIMUM TEMPERATURE 101.6. He does not offer any complaints at this time. Objective Last 24 Hrs of Vital Signs/I&O Vital Signs Date Time Temp Pulse Resp B/P Pulse O2 O2 Flow FiO2 Ox Delivery Rate 07/24 1057 96 114/60 07/24 1057 96 114/60 07/24 1057 96 114/60 07/24 0800 94 Nasal 2.0L Cannula 07/24 0731 98.5 99 20 114/64 94 Nasal 2.0L Cannula 07/24 0600 97.8 93 20 138/78 94 Nasal 2.0L Cannula 07/24 0300 98.2 07/24 0143 98.2 07/24 0044 101.6 07/24 0008 101.4 97 18 132/70 96 Nasal 3.0L Cannula 07/24 0000 94 Nasal 2.0L Cannula 07/23 2300 84 138/78 07/23 1613 97.8 84 19 138/78 93 Nasal 3.0L Cannula 07/23 1600 Nasal 2.0L Cannula Intake & Output 07/24 1600 07/24 0800 07/24 0000 Intake Total 360 360 Output Total 0 100 Balance 360 260 Intake, IV 0 Intake, Oral 360 360 Number 2 1 1 Bowel Movements Output, Urine 0 100 Patient 156 lb Weight Physical Exam Other Physical Findings: He appears comfortable, currently on dialysis, in no acute distress Chest tunnelled catheter in the right upper chest with no inflammation at the site Lungs decreased breath sounds at the bases Heart regular rhythm with no murmur Abdomen is soft, nontender with positive bowel sounds Extremities left calf ulcer clean, with necrotic edges, but with no surrounding erythema Results Last 24 Hours of Lab Results: Laboratory Tests 07/24 07/24 0650 0110 Coagulation PT (9.4 - 12.5 SEC) 23.9 H INR (0.90 - 1.17) 2.29 H Urines Urine Color (YEL,AMB,STR) YEL Urine Clarity (CLEAR) TURBD H Urine pH (5.0 - 8.0) 6.5 Ur Specific [place] (1.001 - 1.035) 1.025 Urine Protein (NEG,<30 MG/DL) 100 H Urine Ketones (NEG) NEG Urine Nitrite (NEG) NEG Urine Bilirubin (NEG) NEG Urine Urobilinogen (0.1 - 1.0 EU/dl) 0.2 Ur Leukocyte Esterase (NEG) LARGE H Ur Microscopic SEDIMENT EXAMINED Urine RBC (0 - 5 /HPF) 10-15 H Urine WBC (0 - 2 /HPF) PACKD H Urine Hemoglobin (NEG) LARGE H Urine Glucose (N MG/DL) 250 H Last 24 Hours of [place] Results: Blood cultures 2 July 22 negative Urine culture July 22 negative Stool C. difficile July 24 negative Recent Imaging Studies: CT of the chest, abdomen and pelvis with IV contrast July 24 reveals patchy consolidation in the right upper lobe, minimal ground glass opacity at the periphery of the left upper lobe; cholelithiasis with no evidence for acute cholecystitis Assessment/Plan Impression: Recurrent fever with no obvious source of infection with recent cultures negative and with CT of the chest, abdomen and pelvis negative for any definite focus of infection. He does have what appears to be a residual right upper lobe density, but his respiratory status is stable; therefore am not convinced he has pneumonia at this time. His left leg ulcer actually appears improved and, with no surrounding erythema or purulence, do not feel this is the source of fever. The possibility that his dialysis catheter is infected must be considered, though his recent blood cultures remain negative. Suggestion: 1. Repeat blood cultures 2 2. Continue to follow off antibiotics pending above
[2016-07-24 14:16] LABS: ABSOLUTE BASOPHIL COUNT 0 /CUMM (0.0-0.2); ABSOLUTE EOSINOPHIL COUNT 0.2 /CUMM (0.0-0.7); ABSOLUTE GRANULOCYTE CT 9.3 /CUMM (1.4-6.5); ABSOLUTE LYMPH COUNT 0.9 /CUMM (1.2-3.4); ABSOLUTE MONOCYTE COUNT 1.4 /CUMM (0.10-0.60); BASOPHIL % 0.2 % (0.0-2.0); EOSINOPHIL % 1.6 % (0-5); GRANULOCYTE % 78.5 % (42.2-75.2); MEAN CORPUSCULAR HGB 27.7 PG (27.0-31.0); MEAN CORPUSCULAR HGB CONC 30.8 G/DL (33.0-37.0); MEAN CORPUSCULAR VOLUME 89.8 FL (80.0-94.0); MEAN PLATELET VOLUME 8.5 FL (7.4-10.4); PLATELET COUNT 428 /CUMM (130-400); RBC DISTRIBUTION WIDTH 18.7 % (11.5-14.5); RED BLOOD CELL CT 3.01 /CUMM (4.70-6.10); WHITE BLOOD CELL COUNT 11.9 /CUMM (4.8-10.8)
--- NOTE | 2016-07-24 17:55 | PN- Vascular Surgery ---
Surgical Brief Attending Note Brief Attending Note: VASCULAR ATTENDING NOTE: 75-year-old male known to our service. He has multiple medical problems and has been seen on several occasions. He continues to have a left calf wound which demonstrates some necrotic eschar but good granulation tissue now. He is also been having intermittent fevers. Has had some discomfort. He is continually having changes in mental status and has a question of pneumonia. Patient is still on high-dose steroids which is inhibiting wound healing -please readjust and decrease if possible. Called to re-evaluate wound. Physical exam: Afebrile vital signs stable Exam exam reveals lower extremity is well-perfused, does have necrosis at the superior and inferior portion of the wound- there is good granulation tissue. A/P stable wound - fever possible related to dialysis catheter? Continue fever workup Continue medical Rx-would consider IR replacement or exchange of dialysis catheter Follow-up urine culture as UA today appears to suggest infection NEED TO LOWER STEROIDS further if possible Check Albumin/Pre-albumin Would continue 0.5% Dakins-offload at all times
[2016-07-24 18:44] VITALS: BP 116/58
--- NOTE | 2016-07-24 23:31 | NUR ---
PT'S RIGHT ARM WEMAYITO. # [id number] MADE AWARE
[2016-07-25 00:59] VITALS: BP 132/68
[2016-07-25 07:52] VITALS: BP 120/62
--- NOTE | 2016-07-25 07:52 | PN- Diabetes ---
Assessment/Plan Assessment: His blood sugars have been in better control. He's back on Levemir 4 units each a.m. fingerstick blood sugars yesterday were 103 before breakfast, 197 before lunch 96 before dinner, and 145 at bedtime. Fingerstick blood sugar this morning is 100. Plan: Suggest continue the present insulin regimen. Subjective Subjective: States he feels OK Review of Systems Constitutional: Denies: chills, fever. Cardiovascular: Denies: chest pain. Gastrointestinal: Denies: abdominal pain. Skin: Reports: lesions (left lower leg). Objective Last 24 Hrs of Vital Signs/I&O Vital Signs Date Time Temp Pulse Resp B/P Pulse O2 O2 Flow FiO2 Ox Delivery Rate 07/25 0059 98.4 98 22 132/68 92 Nasal 2.0L Cannula 07/25 0000 98 Nasal 2.0L Cannula 07/24 2117 89 118/62 07/24 1844 98.2 89 20 116/58 90 07/24 1600 Nasal 2.0L Cannula 07/24 1057 96 114/60 07/24 1057 96 114/60 07/24 1057 96 114/60 07/24 0800 94 Nasal 2.0L Cannula Intake & Output 07/25 0000 07/24 1600 Intake Total 120 560 Output Total 0 Balance 120 560 Intake, IV 0 Intake, Oral 120 560 Number 2 2 4 Bowel Movements Output, Urine 0 Patient 159 lb Weight Vital Signs Date Time Temp Pulse Resp B/P Pulse O2 O2 Flow FiO2 Ox Delivery Rate 07/25 0059 98.4 98 22 132/68 92 Nasal 2.0L Cannula 07/25 0000 98 Nasal 2.0L Cannula 07/24 2117 89 118/62 07/24 1844 98.2 89 20 116/58 90 07/24 1600 Nasal 2.0L Cannula 07/24 1057 96 114/60 07/24 1057 96 114/60 07/24 1057 96 114/60 07/24 0800 94 Nasal 2.0L Cannula Intake & Output 07/25 0807/25 0000 07/24 1600 Intake Total 120 560 Output Total 0 Balance 120 560 Intake, IV 0 Intake, Oral 120 560 Number 2 2 4 Bowel Movements Output, Urine 0 Patient 159 lb Weight Physical Exam General Appearance: awake, lethargic Head: normal appearance Neck: normal inspection Respiratory: normal breath sounds Abdomen: normal bowel sounds Extremities: left leg bandaged Current Medications: Current Medications Sig/Kailash Start time Last Medication Dose Route Stop Time Status Admin Acetaminophen 650 MG Q6P PRN 07/22 1700 AC 07/24 PO 0044 Aspirin 81 MG DAILY 07/01 1000 AC 07/24 PO 1057 Atorvastatin Calcium 40 MG 1700 06/30 1700 AC 07/23 PO 1636 Carvedilol 25 MG BID 06/30 2200 AC 07/24 PO 2117 Epoetin Ludwig 3,000 UNIT MoWeFr PRN 07/08 1200 AC IV Epoetin Ludwig 2,000 UNIT MoWeFr PRN 07/08 1200 AC IV Guaifenesin 600 MG Q12 07/18 1000 AC 07/24 PO 2115 Insulin Aspart 0 TIDAC/HS 06/30 2100 AC 07/24 SC 1145 Insulin Detemir 4 UNITS QAM 07/23 1000 AC 07/24 SC 1057 Iron Sucrose 100 MG PER PROTOCL PRN 07/01 1430 AC 07/03 Sodium Chloride 100 ML IV 1221 Isosorbide 30 MG DAILY 07/09 1056 AC 07/24 Mononitrate PO 1057 Multivitamins 1 TAB DAILY 07/01 1000 AC 07/24 PO 1056 Omeprazole 40 MG DAILY AC 07/14 0700 AC 07/25 PO 0654 Oxycodone/ 2 TAB Q6P PRN 07/11 2230 AC 07/25 Acetaminophen PO 0654 Prednisone 5 MG DAILY 07/24 1000 AC 07/24 PO 07/30 1001 1056 Sevelamer Carbonate 800 MG WITH MEALS 06/30 1200 AC 07/24 PO 1815 Sodium Chloride 2 SPRAY Q10MIN PRN 07/12 0230 AC CARLITOS Sodium Hypochlorite 1 CHAITANYA BID 07/05 1113 AC 07/25 TOP 0716 Tamsulosin HCl 0.4 MG DAILY 07/01 1000 AC 07/24 PO 1057 Vitamin A/Vitamin D 1 CHAITANYA BID 06/30 2200 AC 07/24 TOP 2104 Warfarin Sodium 2.5 MG COUMADIN 1700 ONE 07/24 1700 DC 07/24 PO 07/24 1701 1815 Zinc Oxide 1 CHAITANYA BID 06/30 2200 AC 07/24 TOP 2117 Findings Pertinent Lab/Avtar Results: Laboratory Tests 07/25 07/24 07/24 0620 1615 1250 Chemistry BUN (9 - 20 mg/dL) 6 L Coagulation PT Pending INR Pending Hematology CBC w Diff NO MAN DIFF REQ WBC (4.8 - 10.8 /CUMM) 11.9 H RBC (4.70 - 6.10 /CUMM) 3.01 L Hgb (14.0 - 18.0 G/DL) 8.3 L Hct (42 - 52 %) 27.0 L MCV (80.0 - 94.0 FL) 89.8 MCH (27.0 - 31.0 PG) 27.7 RDW (11.5 - 14.5 %) 18.7 H Plt Count (130 - 400 /CUMM) 428 H MPV (7.4 - 10.4 FL) 8.5 Gran % (42.2 - 75.2 %) 78.5 H Lymphocytes % (20.5 - 51.1 %) 8.0 L Monocytes % (1.7 - 9.3 %) 11.7 H Eosinophils % (0 - 5 %) 1.6 Basophils % (0.0 - 2.0 %) 0.2 Absolute Granulocytes (1.4 - 6.5 /CUMM) 9.3 H Absolute Lymphocytes (1.2 - 3.4 /CUMM) 0.9 L Absolute Monocytes (0.10 - 0.60 /CUMM) 1.4 H Absolute Eosinophils (0.0 - 0.7 /CUMM) 0.2 Absolute Basophils (0.0 - 0.2 /CUMM) 0 PUBS MCHC (33.0 - 37.0 G/DL) 30.8 L 12/28 1150 Chemistry Sodium (137 - 145 mmol/L) 137 Potassium (3.5 - 5.1 mmol/L) 4.3 Chloride (98 - 107 mmol/L) 102 Carbon Dioxide (22 - 30 mmol/L) 29 Anion Gap (5 - 16) 7 BUN (9 - 20 mg/dL) 25 H Creatinine (0.7 - 1.2 mg/dL) 3.1 H Estimated GFR (>60 ml/min) 20 L BUN/Creatinine Ratio (7 - 25 %) 8.1 Glucose (65 - 99 mg/dL) 204 H Calcium (8.4 - 10.2 mg/dL) 8.0 L Phosphorus (2.5 - 4.5 mg/dL) 3.1 Magnesium (1.6 - 2.3 mg/dL) 1.6 Albumin (3.5 - 5.0 g/dL) 2.2 L Serology Hep Bs Antigen (NONREACTIVE) NONREACTIVE Hep Bs Antibody (NONREACTIVE) NONREACTIVE
[2016-07-25 08:21] LABS: PT 24.3 SEC (9.4-12.5)
--- NOTE | 2016-07-25 10:59 | PN- Housestaff ---
ESTELA HEATH,[facility] 07/25/16 1059: Subjective Follow-up For: Left lower leg non healing ulcer acute blood loss anemia Subjective: Patient seen and examined this morning. He was alert and oriented and in much better spirits today. He is scheduled for dialysis [place]. His pain in left lower leg is much better, no fever spikes overnight, will follow up blood cultures. Patient has been afebrile, vitals stable. Review of Systems Constitutional: Denies: chills, fever. Cardiovascular: Denies: chest pain, palpitations. Respiratory: Denies: cough, short of breath, sputum production. Gastrointestinal: Denies: abdominal pain, constipation, diarrhea, nausea, vomiting. Objective Last 24 Hrs of Vital Signs/I&O Vital Signs Date Time Temp Pulse Resp B/P Pulse O2 O2 Flow FiO2 Ox Delivery Rate 07/25 1438 Room Air Room Air 07/25 1222 96 Room Air 07/25 1134 97 Nasal 1.0L Cannula 07/25 1000 99 Nasal 2.0L Cannula 07/25 0903 90 110/50 07/25 0903 90 110/50 07/25 0903 90 110/50 07/25 0800 96 Nasal 3.0L Cannula 07/25 0752 98.2 90 20 120/62 96 Nasal 2.0L Cannula 07/25 0059 98.4 98 22 132/68 92 Nasal 2.0L Cannula 07/25 0000 98 Nasal 2.0L Cannula 07/24 2117 89 118/62 07/24 1844 98.2 89 20 116/58 90 07/24 1600 Nasal 2.0L Cannula Intake & Output 07/25 1600 07/25 0800 07/25 0000 Intake Total 500 240 120 Output Total Balance 500 240 120 Intake, IV 0 Intake, Oral 500 240 120 Number 5 2 Bowel Movements Patient 71.894 kg Weight Physical Exam General Appearance: Alert, Oriented X3, Cooperative Cardiovascular: Regular Rate, Normal S1, Normal S2, No Murmurs Lungs: Clear to Auscultation, Normal Air Movement Abdomen: Normal Bowel Sounds, Soft, No Tenderness Extremities: No Clubbing, No Cyanosis, No Edema Current Medications: Current Medications Sig/Kailash Start time Last Medication Dose Route Stop Time Status Admin Acetaminophen 650 MG Q6P PRN 07/22 1700 AC 07/24 PO 0044 Aspirin 81 MG DAILY 07/01 1000 AC 07/25 PO 0903 Atorvastatin Calcium 40 MG 1700 06/30 1700 AC 07/23 PO 1636 Carvedilol 25 MG BID 06/30 2200 AC 07/25 PO 0903 Epoetin Ludwig 3,000 UNIT MoWeFr PRN 07/08 1200 AC IV Epoetin Ludwig 2,000 UNIT MoWeFr PRN 07/08 1200 AC IV Guaifenesin 600 MG Q12 07/18 1000 AC 07/25 PO 0903 Insulin Aspart 0 TIDAC/HS 06/30 2100 AC 07/25 SC 1219 Insulin Detemir 4 UNITS QAM 07/23 1000 AC 07/25 SC 0903 Iron Sucrose 100 MG PER PROTOCL PRN 07/01 1430 AC 07/03 Sodium Chloride 100 ML IV 1221 Isosorbide 30 MG DAILY 07/09 1056 AC 07/25 Mononitrate PO 0903 Multivitamins 1 TAB DAILY 07/01 1000 AC 07/25 PO 0903 Nystatin 1 CHAITANYA TID 07/25 1600 AC TOP Omeprazole 40 MG DAILY AC 07/14 0700 AC 07/25 PO 0654 Oxycodone/ 2 TAB Q6P PRN 07/11 2230 DC 07/25 Acetaminophen PO 0654 Prednisone 5 MG DAILY 07/24 1000 AC 07/25 PO 07/30 1001 0903 Sevelamer Carbonate 800 MG WITH MEALS 06/30 1200 AC 07/25 PO 1218 Sodium Chloride 2 SPRAY Q10MIN PRN 07/12 0230 AC CARLITOS Sodium Hypochlorite 1 CHAITANYA BID 07/05 1113 AC 07/25 TOP 0716 Tamsulosin HCl 0.4 MG DAILY 07/01 1000 AC 07/25 PO 0903 Vitamin A/Vitamin D 1 CHAITANYA BID 06/30 2200 AC 07/25 TOP 0904 Warfarin Sodium 2.5 MG COUMADIN 1700 ONE 07/25 1700 AC PO 07/25 1701 Warfarin Sodium 2.5 MG COUMADIN 1700 ONE 07/24 1700 DC 07/24 PO 07/24 1701 1815 Zinc Oxide 1 CHAITANYA BID 06/30 2200 AC 07/25 TOP 0904 Last 24 Hrs of Lab/Avtar Results Last 24 Hrs of Labs/Mics: Laboratory Tests 07/25/16 0620: PT 24.3 H, INR 2.33 H 07/24/16 1615: Assessment/Plan Assessment: 75 y/o M with PMHx of antiphospholipid antibody syndrome, diabetes and CKD who presented with SOB, hoarseness and stridor, found to be uremic with initiation of HD, s/p debridement of chronic left leg ulcer, on IV vancomycin for soft tissue infection, currently awaiting outpatient dialysis slot. Fever of unknown origin: No overnight fever spikes. Recently treated with vancomycin and ceftazidime for possible aspiration pneumonia secondary to gram-negative organisms CT abdomen and chest has not revealed any source of infection, blood cultures pending For now we will cont to monitor off antibiotics, ID following, will follow recs Anemia : Etiology multifactorial. Currently HDS. Per GI anemia likely secondary to other causes then GI. Will have patient follow-up with GI as an outpatient. We'll continue iron supplementation and Epogen. Chest Pain: Resolved. On 07/09 patient had chest pain, ekg-no acute changes. Troponins elevated at 0.14. patient was transferred to telemetry floor for continuous cardiac monitoring, cardiology on board repeat troponin trended down. Chronic left lower extremity ulcer: Has chronic nonhealing ulcers of left leg for which he sees Dr. Pretty as outpatient. S/p excisional debridement through the subcutaneous and muscular tissue with reported seropurulent drainage (06/30) and OR cultures growing diphthteroids and coag-negative Staph. Although these are not typically pathogenic organisms, currently on IV vancomycin for possible soft tissue infection.Wound appears improved, however patient complains of severe pain concerning for ischemia. * ID following * Vancomycin completed * Vascular surgery consulted again. no intervention suggested Antiphospholipid antibody syndrome: chronic right upper extremity DVT. On life- long anti-coagulation with warfarin, takes 5 mg PO QD. * Continue to check INR daily and dose warfarin accordingly to keep INR between 2-3. * INR 2.33 today - 2.5mg warfarin today. ESRD: Cr was 5 on admission, with gradual increase from 2-3 within the past year. Most likely etiology is progressive diabetic nephropathy. Mj cath was placed and urgent hemodialysis was initiated (06/26) with improvement of mental status. Patient is currently awaiting outpatient dialysis slot. * Nephrology following * Continue HD MW * No PICC lines should be inserted per Nephrology, as patient will need vein site for placement of graft. * Continue sevelamer 800 mg PO TIDAC. * Continue daily Nephrocaps T2DM: Uncontrolled blood sugars this admission, secondary to steroids. * Endocrinology following * Levemir 4U SQ DAILY * Continue NovoLog SSI TIDAC as suggested HTN: Takes amlodipine 10 mg PO QD, carvedilol 25 mg PO BID, furosemide 80 mg PO BID and hydralazine 50 mg PO BID at home. * Holding home amlodipine, furosemide and hydralazine. * Continue home carvedilol. Crohn's disease: Patient has been taking prednisone 10 mg PO QD for many years to prevent flares. * prednisone dose 7.5 mg daily. As per recommendations from GI and tapering for 2 weeks as tolerated. * Aspirin GI, the patient to remain on aspirin, Protonix needed to be added. * C diff was added to rule out C diff toxin infection. Blood cultures were sent. Diet: Renal Dialysis Diet (regular and nectar thick liquids) DVT PPx: Warfarin and ALPs CODE: FULL Problem List: 1. Crohns disease 2. Peripheral vascular disease 3. Chronic ulcer of left lower extremity 4. Antiphospholipid antibody syndrome 5. Full code status 6. DVT prophylaxis Pain Ratin Pain Location: Left lower extremity nonhealing ulcer Pain Goal: Remain pain free Pain Plan: Percocet Tomorrow's Labs & Rationales: INR for daily Coumadin dosing ARTURO HEATH,HARRY 07/25/16 1626: Attending MD Review Statement Attending Statement Attending MD Statement: examined this patient, discuss w/resident/PA/TOLL GATE TENDER, agreed w/resident/PA/TOLL GATE TENDER, reviewed EMR data (avail), discussed with nursing, discussed with case mgmt, amended to note Attending Assessment/Plan: Patient seen and examined. Lethargic but not in any acute distress. No issues overnight reported by nursing staff. He has been afebrile since her last temperature spike barely arousable yesterday. Has no new complaints today. He has no objective clinical evidence of infection at present. Blood cultures drawn yesterday are so far negative. At this point he is medically stable to be discharged to long-term facility for short-term rehabilitation with hopeful eventual transition home. However he does not have a bed at a rehabilitation center that will facilitate transportation to and fro dialysis. Once he obtains an appropriate long-term facility he may be discharged with outpatient follow-up with the vascular surgery service and continued outpatient hemodialysis.
--- NOTE | 2016-07-25 12:26 | PN- Infect Dx ---
Subjective Subjective: Afebrile. He does not report any pain at this time. He continues to have a dry cough but with no apparent shortness of breath. Objective Last 24 Hrs of Vital Signs/I&O Vital Signs Date Time Temp Pulse Resp B/P Pulse O2 O2 Flow FiO2 Ox Delivery Rate 07/25 1134 97 Nasal 1.0L Cannula 07/25 1000 99 Nasal 2.0L Cannula 07/25 0903 90 110/50 07/25 0903 90 110/50 07/25 0903 90 110/50 07/25 0800 96 Nasal 3.0L Cannula 07/25 0752 98.2 90 20 120/62 96 Nasal 2.0L Cannula 07/25 0059 98.4 98 22 132/68 92 Nasal 2.0L Cannula 07/25 0000 98 Nasal 2.0L Cannula 07/24 2117 89 118/62 07/24 1844 98.2 89 20 116/58 90 07/24 1600 Nasal 2.0L Cannula Intake & Output 07/25 1600 07/25 0800 07/25 0000 Intake Total 240 120 Output Total Balance 240 120 Intake, Oral 240 120 Number 5 2 Bowel Movements Patient 159 lb Weight Physical Exam Other Physical Findings: He is lethargic, but easily arousable and responsive. He is able to communicate but appears somewhat confused at times. Chest tunneled catheter in the right upper chest with no inflammation at the site Lungs crackles on the right Heart regular rhythm with no murmur Abdomen is soft, nontender with positive bowel sounds Extremities left leg dressing intact Results Last 24 Hours of Lab Results: Laboratory Tests 07/25 07/24 07/24 0620 1615 1250 Chemistry BUN (9 - 20 mg/dL) 6 L Coagulation PT (9.4 - 12.5 SEC) 24.3 H INR (0.90 - 1.17) 2.33 H Hematology CBC w Diff NO MAN DIFF REQ WBC (4.8 - 10.8 /CUMM) 11.9 H RBC (4.70 - 6.10 /CUMM) 3.01 L Hgb (14.0 - 18.0 G/DL) 8.3 L Hct (42 - 52 %) 27.0 L MCV (80.0 - 94.0 FL) 89.8 MCH (27.0 - 31.0 PG) 27.7 RDW (11.5 - 14.5 %) 18.7 H Plt Count (130 - 400 /CUMM) 428 H MPV (7.4 - 10.4 FL) 8.5 Gran % (42.2 - 75.2 %) 78.5 H Lymphocytes % (20.5 - 51.1 %) 8.0 L Monocytes % (1.7 - 9.3 %) 11.7 H Eosinophils % (0 - 5 %) 1.6 Basophils % (0.0 - 2.0 %) 0.2 Absolute Granulocytes (1.4 - 6.5 /CUMM) 9.3 H Absolute Lymphocytes (1.2 - 3.4 /CUMM) 0.9 L Absolute Monocytes (0.10 - 0.60 /CUMM) 1.4 H Absolute Eosinophils (0.0 - 0.7 /CUMM) 0.2 Absolute Basophils (0.0 - 0.2 /CUMM) 0 PUBS MCHC (33.0 - 37.0 G/DL) 30.8 L Last 24 Hours of Avtar Results: Blood cultures July 22 negative Blood cultures July 24 negative Urine culture July 24 greater than 100,000 colonies of yeast Assessment/Plan Impression: No documented fevers over the past 36 hours, but with white blood cell count yesterday elevated, possibly secondary to an underlying infectious process, with possible sources of infection including the urinary tract, with recurrent candiduria, though it is not clear if he has any urinary symptoms and positive urine cultures in patients on dialysis are often of unclear significance, and the lungs, with a persistent cough, crackles on exam and a residual density in the right upper lobe on the recent CT scan, though his respiratory status appears to be stable. His left leg ulcer actually appears improved and, with no surrounding erythema or purulence, do not feel this represents a source of infection. Suggestion: 1. Follow-up recent cultures 2. Continue to monitor temperatures and white blood cell count off antibiotics pending above
--- NOTE | 2016-07-25 15:38 | PN- Nephrology ---
Assessment/Plan Assessment: ESRD. fever. better past 24 hrs. Will plan dialysis again tomorrow. Suggestion: . Subjective Subjective: Pt comfortable Objective Vital Signs and I&Os 110/50 96 T 98.2 Lungs clear COr RRR Abd soft Ext leg wrapped Results Pertinent Lab Results: Hg 8.3 WBC 11.9
[2016-07-25 15:48] VITALS: BP 100/48
[2016-07-26 00:20] VITALS: BP 120/54
--- NOTE | 2016-07-26 07:34 | PN- Housestaff ---
See Addendum Subjective Follow-up For: Left lower leg non healing ulcer acute blood loss anemia Subjective: Patient seen and examined this morning. He was alert and oriented in his breakfast today. He is scheduled for dialysis today. His pain in left lower leg is much better, MAXIMUM TEMPERATURE 99.5 overnight, no growth to date on blood cultures. Rest of the vitals stable. Review of Systems Constitutional: Reports: see HPI. Objective Last 24 Hrs of Vital Signs/I&O Vital Signs Date Time Temp Pulse Resp B/P Pulse O2 O2 Flow FiO2 Ox Delivery Rate 07/26 0834 100.7 91 18 130/81 07/26 0834 100.7 91 18 130/81 07/26 0833 100.7 91 18 130/81 07/26 0818 100.7 91 18 130/81 95 Room Air 07/26 0020 99.5 96 20 120/54 93 07/26 0000 Room Air 07/25 2129 83 100/48 07/25 1600 95 Room Air 07/25 1548 99.3 83 20 100/48 94 Room Air Intake & Output 07/26 1600 07/26 0800 07/26 0000 Intake Total 800 100 240 Output Total 1 Balance 799 100 240 Intake, Oral 800 100 240 Number 1 2 4 Bowel Movements Output, Stool 1 Patient 70.817 kg Weight Physical Exam General Appearance: Alert, No Acute Distress Cardiovascular: Regular Rate, Normal S1, Normal S2 Lungs: Clear to Auscultation, Normal Air Movement Abdomen: Normal Bowel Sounds, Soft, No Tenderness Extremities: No Edema, left lower leg nonhealing ulcer Current Medications: Current Medications Sig/Kailash Start time Last Medication Dose Route Stop Time Status Admin Acetaminophen 650 MG Q6P PRN 07/22 1700 AC 07/24 PO 0044 Aspirin 81 MG DAILY 07/01 1000 AC 07/26 PO 0833 Atorvastatin Calcium 40 MG 1700 06/30 1700 AC 07/25 PO 1704 Carvedilol 25 MG BID 06/30 2200 AC 07/26 PO 0834 Epoetin Ludwig 3,000 UNIT MoWeFr PRN 07/08 1200 AC IV Epoetin Ludwig 2,000 UNIT MoWeFr PRN 07/08 1200 AC IV Guaifenesin 600 MG Q12 07/18 1000 AC 07/26 PO 0834 Insulin Aspart 0 TIDAC/HS 06/30 2100 AC 07/26 SC 0833 Insulin Detemir 4 UNITS QAM 07/23 1000 AC 07/26 SC 0833 Iron Sucrose 100 MG PER PROTOCL PRN 07/01 1430 AC 07/03 Sodium Chloride 100 ML IV 1221 Isosorbide 30 MG DAILY 07/09 1056 AC 07/26 Mononitrate PO 0833 Multivitamins 1 TAB DAILY 07/01 1000 AC 07/26 PO 0834 Nystatin 1 CHAITANYA TID 07/25 1600 AC 07/26 TOP 0842 Omeprazole 40 MG DAILY AC 07/14 0700 AC 07/26 PO 0532 Prednisone 5 MG DAILY 07/24 1000 AC 07/26 PO 07/30 1001 0834 Sevelamer Carbonate 800 MG WITH MEALS 06/30 1200 AC 07/26 PO 0833 Sodium Chloride 2 SPRAY Q10MIN PRN 07/12 0230 AC CARLITOS Sodium Hypochlorite 1 CHAITANYA BID 07/05 1113 AC 07/26 TOP 0843 Tamsulosin HCl 0.4 MG DAILY 07/01 1000 AC 07/26 PO 0834 Vitamin A/Vitamin D 1 CHAITANYA BID 06/30 2200 AC 07/26 TOP 0843 Warfarin Sodium 2.5 MG COUMADIN 1700 ONE 07/26 1700 AC PO 07/26 1701 Warfarin Sodium 2.5 MG COUMADIN 1700 ONE 07/25 1700 DC 07/25 PO 07/25 1701 1704 Zinc Oxide 1 CHAITANYA BID 06/30 2200 AC 07/26 TOP 0842 Last 24 Hrs of Lab/Avtar Results Last 24 Hrs of Labs/Mics: Laboratory Tests 07/26/16 1130: Anion Gap 8, Estimated GFR 22 L, BUN/Creatinine Ratio 7.1, Calcium 7.7 L, Phosphorus 2.4 L, Magnesium 1.6, CBC w Diff NO MAN DIFF REQ, RBC 2.71 L, MCV 88.8, MCH 28.0, RDW 18.5 H, MPV 8.2, Gran % 85.5 H, Lymphocytes % 5.0 L, Monocytes % 8.9, Eosinophils % 0.5, Basophils % 0.1, Absolute Granulocytes 9.0 H, Absolute Lymphocytes 0.5 L, Absolute Monocytes 0.9 H, Absolute Eosinophils 0.1, Absolute Basophils 0, PUBS MCHC 31.5 L 07/26/16 0630: PT 27.4 H, INR 2.63 H Assessment/Plan Assessment: 75 y/o M with PMHx of antiphospholipid antibody syndrome, diabetes and CKD who presented with SOB, hoarseness and stridor, found to be uremic with initiation of HD, s/p debridement of chronic left leg ulcer, on IV vancomycin for soft tissue infection, currently awaiting outpatient dialysis slot. Fever of unknown origin: Overnight fever 99.5-100.7F, the cultures and NGTD Recently treated with vancomycin and ceftazidime for possible aspiration pneumonia secondary to gram-negative organisms CT abdomen and chest has not revealed any source of infection, blood cultures pending For now we will cont to monitor off antibiotics, ID following, will follow recs Anemia : Etiology multifactorial. Currently HDS. Per GI anemia likely secondary to other causes then GI. Will have patient follow-up with GI as an outpatient. We'll continue iron supplementation and Epogen. Chest Pain: Resolved. On 07/09 patient had chest pain, ekg-no acute changes. Troponins elevated at 0.14. patient was transferred to telemetry floor for continuous cardiac monitoring, cardiology on board repeat troponin trended down. Chronic left lower extremity ulcer: Has chronic nonhealing ulcers of left leg for which he sees Dr. Pretty as outpatient. S/p excisional debridement through the subcutaneous and muscular tissue with reported seropurulent drainage (06/30) and OR cultures growing diphthteroids and coag-negative Staph. Although these are not typically pathogenic organisms, currently on IV vancomycin for possible soft tissue infection.Wound appears improved, however patient complains of severe pain concerning for ischemia. * ID following * Vancomycin completed * Vascular surgery consulted again. no intervention suggested Antiphospholipid antibody syndrome: chronic right upper extremity DVT. On life- long anti-coagulation with warfarin, takes 5 mg PO QD. * Continue to check INR daily and dose warfarin accordingly to keep INR between 2-3. * INR 2.63 today - 2.5mg warfarin today. ESRD: Cr was 5 on admission, with gradual increase from 2-3 within the past year. Most likely etiology is progressive diabetic nephropathy. Mj cath was placed and urgent hemodialysis was initiated (06/26) with improvement of mental status. Patient is currently awaiting outpatient dialysis slot. * Nephrology following * Continue HD MW * No PICC lines should be inserted per Nephrology, as patient will need vein site for placement of graft. * Continue sevelamer 800 mg PO TIDAC. * Continue daily Nephrocaps T2DM: Uncontrolled blood sugars this admission, secondary to steroids. * Endocrinology following * Levemir 4U SQ DAILY * Continue NovoLog SSI TIDAC as suggested HTN: Takes amlodipine 10 mg PO QD, carvedilol 25 mg PO BID, furosemide 80 mg PO BID and hydralazine 50 mg PO BID at home. * Holding home amlodipine, furosemide and hydralazine. * Continue home carvedilol. Crohn's disease: Patient has been taking prednisone 10 mg PO QD for many years to prevent flares. * prednisone dose 5 mg daily. As per recommendations from GI, tapering 5mg for one week followed by 2.5mg for one week then 2.5 on every other day for one week then stop. * Aspirin GI, the patient to remain on aspirin, Protonix needed to be added. * C diff was added to rule out C diff toxin infection. Blood cultures were sent. Diet: Renal Dialysis Diet (regular and nectar thick liquids) DVT PPx: Warfarin and ALPs CODE: FULL Problem List: 1. Crohns disease 2. Peripheral vascular disease 3. Type 2 diabetes mellitus 4. Chronic ulcer of left lower extremity Pain Ratin Pain Location: Left lower extremity chronic nonhealing ulcer Pain Goal: Remain pain free Pain Plan: Percocet Tomorrow's Labs & Rationales: INR for coumadin dosing
--- NOTE | 2016-07-26 07:48 | PN- Diabetes ---
Assessment/Plan Assessment: His blood sugars have been in better control. He's back on Levemir 4 units each a.m. fingerstick blood sugars yesterday were 100 before breakfast, 147 before lunch 131 before dinner, and 137 at bedtime. Patient remains on prednisone 5.0 mg daily. Plan: Suggest continue the present insulin regimen. Encourage good nutrition. Subjective Subjective: Feels okay Objective Last 24 Hrs of Vital Signs/I&O Vital Signs Date Time Temp Pulse Resp B/P Pulse O2 O2 Flow FiO2 Ox Delivery Rate 07/26 0020 99.5 96 20 120/54 93 07/26 0000 Room Air 07/25 2129 83 100/48 07/25 1600 95 Room Air 07/25 1548 99.3 83 20 100/48 94 Room Air 07/25 1438 Room Air Room Air 07/25 1222 96 Room Air 07/25 1134 97 Nasal 1.0L Cannula 07/25 1000 99 Nasal 2.0L Cannula 07/25 0903 90 07/25 0903 90 11007/25 0903 90 07/25 0800 96 Nasal 3.0L Cannula 07/25 0752 98.2 90 20 12062 96 Nasal 2.0L Cannula Intake & Output 07/26 0800 07/26 0000 07/25 1600 Intake Total 100 240 500 Output Total Balance 100 240 500 Intake, IV 0 Intake, Oral 100 240 500 Number 2 4 Bowel Movements Patient 156 lb Weight Vital Signs Date Time Temp Pulse Resp B/P Pulse O2 O2 Flow FiO2 Ox Delivery Rate 07/26 0020 99.5 96 20 120/54 93 07/26 0000 Room Air 07/25 2129 83 100/48 07/25 1600 95 Room Air 07/25 1548 99.3 83 20 100/48 94 Room Air 07/25 1438 Room Air Room Air 07/25 1222 96 Room Air 07/25 1134 97 Nasal 1.0L Cannula 07/25 1000 99 Nasal 2.0L Cannula 07/25 0903 90 11007/25 0903 90 11050 07/25 0903 90 11007/25 0800 96 Nasal 3.0L Cannula 07/25 0752 98.2 90 20 120/62 96 Nasal 2.0L Cannula Intake & Output 07/26 0800 07/26 0000 07/25 1600 Intake Total 100 240 500 Output Total Balance 100 240 500 Intake, IV 0 Intake, Oral 100 240 500 Number 2 4 Bowel Movements Patient 156 lb Weight Physical Exam General Appearance: alert, awake, confused Head: normal appearance Neck: normal inspection Respiratory: normal breath sounds Cardiovascular: regular rate/rhythm Extremities: left foot bandaged Skin: thin with multiple bruises Current Medications: Current Medications Sig/Kailash Start time Last Medication Dose Route Stop Time Status Admin Acetaminophen 650 MG Q6P PRN 07/22 1700 AC 07/24 PO 0044 Aspirin 81 MG DAILY 07/01 1000 AC 07/25 PO 0903 Atorvastatin Calcium 40 MG 1700 06/30 1700 AC 07/25 PO 1704 Carvedilol 25 MG BID 06/30 2200 AC 07/25 PO 2129 Epoetin Ludwig 3,000 UNIT MoWeFr PRN 07/08 1200 AC IV Epoetin Ludwig 2,000 UNIT MoWeFr PRN 07/08 1200 AC IV Guaifenesin 600 MG Q12 07/18 1000 AC 07/25 PO 2130 Insulin Aspart 0 TIDAC/HS 06/30 2100 AC 07/25 SC 1704 Insulin Detemir 4 UNITS QAM 07/23 1000 AC 07/25 SC 0903 Iron Sucrose 100 MG PER PROTOCL PRN 07/01 1430 AC 07/03 Sodium Chloride 100 ML IV 1221 Isosorbide 30 MG DAILY 07/09 1056 AC 07/25 Mononitrate PO 0903 Multivitamins 1 TAB DAILY 07/01 1000 AC 07/25 PO 0903 Nystatin 1 CHAITANYA TID 07/25 1600 AC 07/25 TOP 2130 Omeprazole 40 MG DAILY AC 07/14 0700 AC 07/26 PO 0532 Oxycodone/ 2 TAB Q6P PRN 07/11 2230 DC 07/25 Acetaminophen PO 0654 Prednisone 5 MG DAILY 07/24 1000 AC 07/25 PO 07/30 1001 0903 Sevelamer Carbonate 800 MG WITH MEALS 06/30 1200 AC 07/25 PO 1704 Sodium Chloride 2 SPRAY Q10MIN PRN 07/12 0230 AC CARLITOS Sodium Hypochlorite 1 CHAITANYA BID 07/05 1113 AC 07/25 TOP 212 Tamsulosin HCl 0.4 MG DAILY 07/01 1000 AC 07/25 PO 0903 Vitamin A/Vitamin D 1 CHAITANYA BID 06/30 2200 AC 07/25 TOP 212 Warfarin Sodium 2.5 MG COUMADIN 1700 ONE 07/25 1700 DC 07/25 PO 07/25 1701 1704 Zinc Oxide 1 CHAITANYA BID 06/30 2200 AC 07/25 TOP 2128 Findings Pertinent Lab/Avtar Results: Laboratory Tests 07/26 0630 Coagulation PT Pending INR Pending
[2016-07-26 08:18] VITALS: BP 130/81
[2016-07-26 08:31] LABS: PT 27.4 SEC (9.4-12.5)
[2016-07-26 12:25] LABS: ABSOLUTE BASOPHIL COUNT 0 /CUMM (0.0-0.2); ABSOLUTE EOSINOPHIL COUNT 0.1 /CUMM (0.0-0.7); ABSOLUTE MONOCYTE COUNT 0.9 /CUMM (0.10-0.60)
[2016-07-26 12:28] LABS: ABSOLUTE LYMPH COUNT 0.5 /CUMM (1.2-3.4); BASOPHIL % 0.1 % (0.0-2.0); EOSINOPHIL % 0.5 % (0-5); HEMATOCRIT 24.1 % (42-52); MEAN CORPUSCULAR HGB CONC 31.5 G/DL (33.0-37.0); MEAN CORPUSCULAR VOLUME 88.8 FL (80.0-94.0); MEAN PLATELET VOLUME 8.2 FL (7.4-10.4); PLATELET COUNT 443 /CUMM (130-400); RBC DISTRIBUTION WIDTH 18.5 % (11.5-14.5); RED BLOOD CELL CT 2.71 /CUMM (4.70-6.10); WHITE BLOOD CELL COUNT 10.6 /CUMM (4.8-10.8)
[2016-07-26 12:42] LABS: GRANULOCYTE % 85.5 % (42.2-75.2)
--- NOTE | 2016-07-26 15:53 | PN- Nephrology ---
Assessment/Plan Assessment: ESRD. fever. On dialysis now. Will continue MWF dialysis. Suggestion: . Subjective Subjective: Pt on dialysis now. Comfortable. Objective Vital Signs and I&Os 130 / 81 91 100.7 Lung clear Cor RRR Abd soft Ext tr edema leg wrapped. Results Pertinent Lab Results: .
[2016-07-26 15:59] VITALS: BP 130/68
[2016-07-26 20:42] VITALS: BP 122/58
[2016-07-27 00:38] VITALS: BP 130/62
[2016-07-27 06:46] VITALS: BP 110/60
--- NOTE | 2016-07-27 08:24 | PN- Housestaff ---
ESTELA HEATH,[facility] 07/27/16 0824: Subjective Follow-up For: Left lower leg non healing ulcer acute blood loss anemia Subjective: Seen and examined this morning. He was alert, lying in bed in no acute distress. No fever overnight. No other complaints. Review of Systems Constitutional: Reports: see HPI. Objective Last 24 Hrs of Vital Signs/I&O Vital Signs Date Time Temp Pulse Resp B/P Pulse O2 O2 Flow FiO2 Ox Delivery Rate 07/27 938 97.8 85 20 110/60 07/27 0938 97.8 85 20 110/60 07/27 0937 85 110/60 07/27 0646 97.8 85 20 110/60 90 Room Air 07/27 0038 98.1 90 19 130/62 94 Room Air 07/26 2053 122/58 07/26 204 122/58 07/26 1559 98.0 91 18 130/68 95 Intake & Output 07/27 1600 07/27 0800 07/27 0000 Intake Total 120 120 Output Total Balance 120 120 Intake, Oral 120 120 Number 3 2 Bowel Movements Patient 69.059 kg Weight Physical Exam General Appearance: Alert Cardiovascular: Regular Rate, Normal S1, Normal S2 Lungs: Clear to Auscultation, Normal Air Movement Abdomen: Normal Bowel Sounds, Soft, No Tenderness Extremities: No Clubbing, No Cyanosis, left lower leg nonhealing ulcer/wrapped Current Medications: Current Medications Sig/Kailash Start time Last Medication Dose Route Stop Time Status Admin Acetaminophen 650 MG Q6P PRN 07/22 1700 AC 07/24 PO 0044 Aspirin 81 MG DAILY 07/01 1000 AC 07/27 PO 0937 Atorvastatin Calcium 40 MG 1700 06/30 1700 AC 07/26 PO 1700 Carvedilol 25 MG BID 06/30 2200 AC 07/27 PO 0937 Epoetin Ludwig 3,000 UNIT MoWeFr PRN 07/08 1200 AC IV Epoetin Ludwig 2,000 UNIT MoWeFr PRN 07/08 1200 AC IV Guaifenesin 600 MG Q12 07/18 1000 AC 07/27 PO 0938 Insulin Aspart 0 TIDAC/HS 06/30 2100 AC 07/27 SC 0851 Insulin Detemir 4 UNITS QAM 07/23 1000 AC 07/27 SC 1111 Iron Sucrose 100 MG PER PROTOCL PRN 07/01 1430 AC 07/03 Sodium Chloride 100 ML IV 1221 Isosorbide 30 MG DAILY 07/09 1056 AC 07/27 Mononitrate PO 0938 Multivitamins 1 TAB DAILY 07/01 1000 AC 07/27 PO 0937 Nystatin 1 CHAITANYA TID 07/25 1600 AC 07/27 TOP 0943 Omeprazole 40 MG DAILY AC 07/14 0700 AC 07/27 PO 0603 Prednisone 5 MG DAILY 07/24 1000 AC 07/27 PO 07/30 1001 0937 Sevelamer Carbonate 800 MG WITH MEALS 06/30 1200 AC 07/27 PO 0852 Sodium Chloride 2 SPRAY Q10MIN PRN 07/12 0230 AC CARLITOS Sodium Hypochlorite 1 CHAITANYA BID 07/05 1113 AC 07/27 TOP 0943 Tamsulosin HCl 0.4 MG DAILY 07/01 1000 AC 07/27 PO 0938 Vitamin A/Vitamin D 1 CHAITANYA BID 06/30 2200 AC 07/27 TOP 0943 Warfarin Sodium 2.5 MG COUMADIN 1700 ONE 07/26 1700 DC 07/26 PO 07/26 1701 1701 Zinc Oxide 1 CHAITANYA BID 06/30 2200 AC 07/27 TOP 0920 Last 24 Hrs of Lab/Avtar Results Last 24 Hrs of Labs/Mics: Laboratory Tests 07/27/16 0615: PT 31.8 H, INR 3.06 H Assessment/Plan Assessment: 75 y/o M with PMHx of antiphospholipid antibody syndrome, diabetes and CKD who presented with SOB, hoarseness and stridor, found to be uremic with initiation of HD, s/p debridement of chronic left leg ulcer, on IV vancomycin for soft tissue infection, currently awaiting outpatient dialysis slot. Fever of unknown origin: Overnight no fever, blood cultures and NGTD Recently treated with vancomycin and ceftazidime for possible aspiration pneumonia secondary to gram-negative organisms CT abdomen and chest has not revealed any source of infection, blood cultures pending For now we will cont to monitor off antibiotics, ID following, will follow recs Anemia : Etiology multifactorial. Currently HDS. Per GI anemia likely secondary to other causes then GI. Will have patient follow-up with GI as an outpatient. We'll continue iron supplementation and Epogen. Chest Pain: Resolved. On 07/09 patient had chest pain, ekg-no acute changes. Troponins elevated at 0.14. patient was transferred to telemetry floor for continuous cardiac monitoring, cardiology on board repeat troponin trended down. Chronic left lower extremity ulcer: Has chronic nonhealing ulcers of left leg for which he sees Dr. Pretty as outpatient. S/p excisional debridement through the subcutaneous and muscular tissue with reported seropurulent drainage (06/30) and OR cultures growing diphthteroids and coag-negative Staph. Although these are not typically pathogenic organisms, currently on IV vancomycin for possible soft tissue infection.Wound appears improved, however patient complains of severe pain concerning for ischemia. * ID following * Vancomycin completed * Vascular surgery consulted again. no intervention suggested Antiphospholipid antibody syndrome: chronic right upper extremity DVT. On life- long anti-coagulation with warfarin, takes 5 mg PO QD. * Continue to check INR daily and dose warfarin accordingly to keep INR between 2-3. * INR 3.06 today - warfarin on hold today. ESRD: Cr was 5 on admission, with gradual increase from 2-3 within the past year. Most likely etiology is progressive diabetic nephropathy. Mj cath was placed and urgent hemodialysis was initiated (06/26) with improvement of mental status. Patient is currently awaiting outpatient dialysis slot. * Nephrology following * Continue HD MW * No PICC lines should be inserted per Nephrology, as patient will need vein site for placement of graft. * Continue sevelamer 800 mg PO TIDAC. * Continue daily Nephrocaps T2DM: Uncontrolled blood sugars this admission, secondary to steroids. * Endocrinology following * Levemir 4U SQ DAILY * Continue NovoLog SSI TIDAC as suggested HTN: Takes amlodipine 10 mg PO QD, carvedilol 25 mg PO BID, furosemide 80 mg PO BID and hydralazine 50 mg PO BID at home. * Holding home amlodipine, furosemide and hydralazine. * Continue home carvedilol. Crohn's disease: Patient has been taking prednisone 10 mg PO QD for many years to prevent flares. * prednisone dose 5 mg daily. As per recommendations from GI, tapering 5mg for one week followed by 2.5mg for one week then 2.5 on every other day for one week then stop. * Aspirin GI, the patient to remain on aspirin, Protonix needed to be added. * C diff was added to rule out C diff toxin infection. Blood cultures were sent. Diet: Renal Dialysis Diet (regular and nectar thick liquids) DVT PPx: Warfarin and ALPs CODE: FULL Problem List: 1. Supratherapeutic INR 2. CKD (chronic kidney disease) 3. DVT prophylaxis 4. Crohn disease 5. Antiphospholipid antibody syndrome 6. Chronic ulcer of left lower extremity Pain Ratin Pain Location: Left lower extremity nonhealing wound Pain Goal: Remain pain free Pain Plan: percocet Tomorrow's Labs & Rationales: inr for Coumadin dosing ARTURO HEATH,JOHNGarrett 07/27/16 1210: Attending MD Review Statement Attending Statement Attending MD Statement: examined this patient, discuss w/resident/PA/LITHOGRAPHED PLATE INSPECTOR, agreed w/resident/PA/LITHOGRAPHED PLATE INSPECTOR, discussed with family, reviewed EMR data (avail), discussed with nursing, discussed with case mgmt, amended to note Attending Assessment/Plan: Patient seen and examined. Resting comfortably and not in acute distress. He appears a little more lethargic this morning. Denies chest pain. Denies shortness of breath. Hemodynamically stable. Not tachycardic. He has been afebrile. His lungs remain clear bilaterally. I did examine his left leg also today, there has been no significant change. There is no worsening of the wound. Recommendations: -Continue to monitor patient's of antibiotic therapy. -Still awaiting bed [facility] the [facility] facility. -Repeat CBC tomorrow to ensure stability of hemoglobin -His INR is supratherapeutic again despite reducing the dose of his Coumadin. -Would recommend holding Coumadin and resuming when INR is below 2.9. At that time we'll begin patient on Coumadin 2.5 mg every other day.
[2016-07-27 08:48] LABS: PT 31.8 SEC (9.4-12.5)
--- NOTE | 2016-07-27 13:22 | PN- Diabetes ---
Assessment/Plan Assessment: He is Levemir 4 units each a.m. In addition, he is on Novolog coverage before meals and Novolog covearge at bedtime. His FSGs were 84, 180 and 142. Patient remains on prednisone 5.0 mg daily. Plan: continue the current insulin regimen for now. monitior FSGs. Subjective Subjective: He has no special complaints at this point. Objective Last 24 Hrs of Vital Signs/I&O Vital Signs Date Time Temp Pulse Resp B/P Pulse O2 O2 Flow FiO2 Ox Delivery Rate 07/27 938 97.8 85 20 110/60 07/27 0938 97.8 85 20 110/60 07/27 0937 85 110/60 07/27 0646 97.8 85 20 110/60 90 Room Air 07/27 0038 98.1 90 19 130/62 94 Room Air 07/26 2053 122/58 07/26 2042 122/58 07/26 1559 98.0 91 18 130/68 95 Intake & Output 07/27 1600 07/27 0800 07/27 0000 Intake Total 120 120 Output Total Balance 120 120 Intake, Oral 120 120 Number 3 2 Bowel Movements Patient 152 lb Weight Findings Pertinent Lab/Avtar Results: Laboratory Tests 07/27 0615 Coagulation PT (9.4 - 12.5 SEC) 31.8 H INR (0.90 - 1.17) 3.06 H
--- NOTE | 2016-07-27 15:11 | PN- Infect Dx ---
Subjective Subjective: Afebrile (on steroids) over the past 24 hours. He does not offer any complaints at this time, though he does report intermittent dysuria and cough. Objective Last 24 Hrs of Vital Signs/I&O Vital Signs Date Time Temp Pulse Resp B/P Pulse O2 O2 Flow FiO2 Ox Delivery Rate 07/27 938 97.8 85 20 110/60 07/27 0938 97.8 85 20 110/60 07/27 0937 85 110/60 07/27 0646 97.8 85 20 110/60 90 Room Air 07/27 0038 98.1 90 19 130/62 94 Room Air 07/263 122/58 07/26 2042 122/58 07/26 1559 98.0 91 18 130/68 95 Intake & Output 07/27 1600 07/27 0800 07/27 0000 Intake Total 120 120 Output Total Balance 120 120 Intake, Oral 120 120 Number 3 2 Bowel Movements Patient 152 lb Weight Physical Exam Other Physical Findings: He is mildly lethargic, but arousable and in no acute distress Chest tunneled dialysis catheter in the right upper chest with no inflammation at the site Lungs crackles at the right base Heart regular rhythm with no murmur Abdomen is soft, nontender with positive bowel sounds Extremities left leg dressing intact Results Last 24 Hours of Lab Results: Laboratory Tests 07/27 0615 Coagulation PT (9.4 - 12.5 SEC) 31.8 H INR (0.90 - 1.17) 3.06 H Last 24 Hours of Avtar Results: Blood cultures July 24 negative Assessment/Plan Impression: Overall stable with no fevers over the past 24 hours and with white blood cell count essentially normal, slightly decreased from the previous value 2 days earlier. He does have several possible sources of infection including the urinary tract, with recurrent candiduria, though it is not clear if he really has any urinary symptoms and positive urine cultures in patients on dialysis are often of unclear significance, and the lungs, with a persistent cough, crackles on exam and a residual density in the right upper lobe on the recent CT scan, though his respiratory status appears to be stable. His left leg ulcer has overall improved and, with no surrounding erythema or purulence, do not feel this represents a source of infection. Suggestion: 1. Continue to monitor temperatures and white blood cell count off antibiotics
[2016-07-27 16:57] VITALS: BP 118/62
[2016-07-28 00:31] VITALS: BP 136/58
[2016-07-28 07:19] VITALS: BP 138/66
[2016-07-28 08:16] LABS: PT 29.1 SEC (9.4-12.5)
--- NOTE | 2016-07-28 08:40 | PN- Housestaff ---
See Addendum Subjective Follow-up For: Left lower leg nonhealing ulcer Episodic low-grade fever Subjective: patient seen and examined this morning. He was lying in bed in no acute distress. Has been afebrile overnight. Her vitals remained within normal limits. He reported the pain in his left lower leg secondary to nonhealing ulcer is getting better. Review of Systems Constitutional: Reports: see HPI. Objective Last 24 Hrs of Vital Signs/I&O Vital Signs Date Time Temp Pulse Resp B/P Pulse O2 O2 Flow FiO2 Ox Delivery Rate 07/28 1025 96 138/66 07/28 1024 96 138/66 07/28 1024 96 138/66 07/28 0719 98.4 96 20 138/66 92 Room Air 07/28 0031 98.4 88 20 136/58 97 07/27 2221 120/70 07/27 1657 99.9 93 20 118/62 95 07/27 1600 96 Room Air Room Air Intake & Output 07/28 1600 07/28 0800 07/28 0000 Intake Total 50 50 Output Total Balance 50 50 Intake, Oral 50 50 Number 1 4 Bowel Movements Patient 68.039 kg Weight Physical Exam General Appearance: Alert, Oriented X3, Cooperative Cardiovascular: Regular Rate, Normal S1, Normal S2 Lungs: Clear to Auscultation, Normal Air Movement Abdomen: Normal Bowel Sounds, Soft, No Tenderness Extremities: left lower leg nonhealing ulcer Current Medications: Current Medications Sig/Kailash Start time Last Medication Dose Route Stop Time Status Admin Acetaminophen 650 MG Q6P PRN 07/22 1700 AC 07/24 PO 0044 Aspirin 81 MG DAILY 07/01 1000 AC 07/28 PO 1025 Atorvastatin Calcium 40 MG 1700 06/30 1700 AC 07/27 PO 1704 Carvedilol 25 MG BID 06/30 2200 AC 07/28 PO 1024 Epoetin Ludwig 3,000 UNIT MoWeFr PRN 07/08 1200 AC IV Epoetin Ludwig 2,000 UNIT MoWeFr PRN 07/08 1200 AC IV Guaifenesin 600 MG Q12 07/18 1000 AC 07/28 PO 1024 Insulin Aspart 0 TIDAC/HS 06/30 2100 AC 07/27 SC 1705 Insulin Detemir 4 UNITS QAM 07/23 1000 AC 07/28 SC 1033 Iron Sucrose 100 MG PER PROTOCL PRN 07/01 1430 AC 07/03 Sodium Chloride 100 ML IV 1221 Isosorbide 30 MG DAILY 07/09 1056 AC 07/28 Mononitrate PO 1025 Multivitamins 1 TAB DAILY 07/01 1000 AC 07/28 PO 1024 Nystatin 1 CHAITANYA TID 07/25 1600 AC 07/28 TOP 1025 Omeprazole 40 MG DAILY AC 07/14 0700 AC 07/28 PO 0623 Patient Medication 1 UNIT ONE NR 07/28 0930 DC Teaching ED 07/28 1000 Prednisone 5 MG DAILY 07/24 1000 AC 07/28 PO 07/30 1001 1024 Sevelamer Carbonate 800 MG WITH MEALS 06/30 1200 AC 07/27 PO 1707 Sodium Chloride 2 SPRAY Q10MIN PRN 07/12 0230 AC CARLITOS Sodium Hypochlorite 1 CHAITANYA BID 07/05 1113 AC 07/28 TOP 1017 Tamsulosin HCl 0.4 MG DAILY 07/01 1000 AC 07/28 PO 1024 Vitamin A/Vitamin D 1 CHAITANYA BID 06/30 2200 AC 07/28 TOP 1017 Warfarin Sodium 2.5 MG COUMADIN 1700 ONE 07/28 1700 AC PO 07/28 1701 Zinc Oxide 1 CHAITANYA BID 06/30 2200 AC 07/27 TOP 2218 Last 24 Hrs of Lab/Avtar Results Last 24 Hrs of Labs/Mics: Laboratory Tests 07/28/16 0610: PT 29.1 H, INR 2.80 H Assessment/Plan Assessment: 75 y/o M with PMHx of antiphospholipid antibody syndrome, diabetes and CKD who presented with SOB, hoarseness and stridor, found to be uremic with initiation of HD, s/p debridement of chronic left leg ulcer, on IV vancomycin for soft tissue infection, currently awaiting outpatient dialysis slot. Fever of unknown origin: Overnight no fever, blood cultures and NGTD Recently treated with vancomycin and ceftazidime for possible aspiration pneumonia secondary to gram-negative organisms CT abdomen and chest has not revealed any source of infection, blood cultures pending For now we will cont to monitor off antibiotics, ID following, will follow recs. Anemia : Etiology multifactorial. Currently HDS. Per GI anemia likely secondary to other causes then GI. Will have patient follow-up with GI as an outpatient. We'll continue iron supplementation and Epogen. Chest Pain: Resolved. On 07/09 patient had chest pain, ekg-no acute changes. Troponins elevated at 0.14. patient was transferred to telemetry floor for continuous cardiac monitoring, cardiology on board repeat troponin trended down. Chronic left lower extremity ulcer: Has chronic nonhealing ulcers of left leg for which he sees Dr. rPetty as outpatient. S/p excisional debridement through the subcutaneous and muscular tissue with reported seropurulent drainage (06/30) and OR cultures growing diphthteroids and coag-negative Staph. Although these are not typically pathogenic organisms, currently on IV vancomycin for possible soft tissue infection.Wound appears improved, however patient complains of severe pain concerning for ischemia. * ID following * Vancomycin completed * Vascular surgery consulted again. no intervention suggested Antiphospholipid antibody syndrome: chronic right upper extremity DVT. On life- long anti-coagulation with warfarin, takes 5 mg PO QD. * Continue to check INR daily and dose warfarin accordingly to keep INR between 2-3. * INR 3.06 today - warfarin on hold today. ESRD: Cr was 5 on admission, with gradual increase from 2-3 within the past year. Most likely etiology is progressive diabetic nephropathy. Mj cath was placed and urgent hemodialysis was initiated (06/26) with improvement of mental status. Patient is currently awaiting outpatient dialysis slot. * Nephrology following * Continue HD MW * No PICC lines should be inserted per Nephrology, as patient will need vein site for placement of graft. * Continue sevelamer 800 mg PO TIDAC. * Continue daily Nephrocaps T2DM: Uncontrolled blood sugars this admission, secondary to steroids. * Endocrinology following * Levemir 4U SQ DAILY * Continue NovoLog SSI TIDAC as suggested HTN: Takes amlodipine 10 mg PO QD, carvedilol 25 mg PO BID, furosemide 80 mg PO BID and hydralazine 50 mg PO BID at home. * Holding home amlodipine, furosemide and hydralazine. * Continue home carvedilol. Crohn's disease: Patient has been taking prednisone 10 mg PO QD for many years to prevent flares. * prednisone dose 5 mg daily. As per recommendations from GI, tapering 5mg for one week followed by 2.5mg for one week then 2.5 on every other day for one week then stop. * Aspirin GI, the patient to remain on aspirin, Protonix needed to be added. * C diff was added to rule out C diff toxin infection. Blood cultures were sent. Diet: Renal Dialysis Diet (regular and nectar thick liquids) DVT PPx: Warfarin and ALPs CODE: FULL Problem List: 1. Cellulitis of leg, excluding foot 2. Crohn disease 3. DVT prophylaxis 4. Full code status 5. Antiphospholipid antibody syndrome 6. Peripheral vascular disease Pain Ratin Pain Location: Left lower leg nonhealing ulcer Pain Goal: Remain pain free Pain Plan: Tylenol 650 mg Tomorrow's Labs & Rationales: INR for Coumadin dosing
--- NOTE | 2016-07-28 11:59 | PN- Diabetes ---
Assessment/Plan Assessment: Patient remains on prednisone 5.0 mg daily. He is Levemir 4 units each a.m. In addition, he is on Novolog coverage before meals and Novolog covearge at bedtime. His FSGs were 164, 195 AMD 135. Plan: continue the current insulin orders; monitor FSGs. will follow. Subjective Subjective: He feels okay this morning. Objective Last 24 Hrs of Vital Signs/I&O Vital Signs Date Time Temp Pulse Resp B/P Pulse O2 O2 Flow FiO2 Ox Delivery Rate 07/28 1025 96 138/66 07/28 1024 96 138/66 07/28 1024 96 138/66 07/28 0719 98.4 96 20 138/66 92 Room Air 07/28 0031 98.4 88 20 136/58 97 07/27 2221 120/70 07/27 1657 99.9 93 20 118/62 95 07/27 1600 96 Room Air Room Air Intake & Output 07/28 1600 07/28 0800 07/28 0000 Intake Total 50 50 Output Total Balance 50 50 Intake, Oral 50 50 Number 1 4 Bowel Movements Patient 150 lb Weight Findings Pertinent Lab/Avtar Results: Laboratory Tests 07/28 0610 Coagulation PT (9.4 - 12.5 SEC) 29.1 H INR (0.90 - 1.17) 2.80 H
[2016-07-28 15:57] VITALS: BP 92/48
--- NOTE | 2016-07-28 16:14 | NUR ---
BLOOD PRESSURE 92/48, BLOOD SUGAR 213, TEMP 99.2, DOWN FROM 100.6 AND TYLENOL DOSE, MORE LETHARGIC THAN NORMAL INFORMED DR DONALD OF ALL ABOVE-STATED TO CONTINUE TO MONITOR AND IF BP IS 90-92 TONIGHT FOR MEDS, TO HOLD.
--- NOTE | 2016-07-28 16:51 | NUR ---
PATIENT'S IS VISITING AND FEEDING HIM, HE APPEARS MORE AWAKE & "PERKY" CONTINUE TO MONITOR
[2016-07-28 21:45] VITALS: BP 130/58
[2016-07-29 00:04] VITALS: BP 118/52
[2016-07-29 08:18] VITALS: BP 120/64
--- NOTE | 2016-07-29 08:21 | PN- Housestaff ---
HILL HEATH,NIC 07/29/16 0821: Subjective Follow-up For: chronic ulcer Subjective: pt was seen this morning, he was in good spirit, alert, awake, and oriented. he appeared comfortable lying in bed. he reports 6/10 pain of the left leg. he is concerned about the new ulcer he has on the lateral upper right calf that appears necrotic. he has no complains otherwise. Review of Systems Constitutional: Denies: chills, fever. EENTM: Denies: visual changes. Cardiovascular: Denies: chest pain, palpitations. Respiratory: Denies: cough, short of breath. Gastrointestinal: Denies: abdominal pain, bloating, constipation, diarrhea. Objective Last 24 Hrs of Vital Signs/I&O Vital Signs Date Time Temp Pulse Resp B/P Pulse O2 O2 Flow FiO2 Ox Delivery Rate 07/29 0818 98.6 83 20 120/64 90 Room Air 07/29 0816 88 102/48 07/29 0816 88 102/48 07/29 0815 88 102/46 07/29 0004 98.2 92 20 118/52 94 07/29 0000 94 Room Air 07/28 2145 93 130/58 94 Room Air 07/28 2139 93 130/58 07/28 1600 93 Room Air 07/28 1557 99.2 87 20 92/48 93 Room Air 07/28 1504 99.2 07/28 1405 100.6 07/28 1400 100.6 Intake & Output 07/29 1600 07/29 0800 07/29 0000 Intake Total 120 500 Output Total Balance 120 500 Intake, IV 0 Intake, Oral 120 500 Number 2 3 Bowel Movements Patient 67.132 kg Weight Physical Exam General Appearance: Alert, Oriented X3, Cooperative, No Acute Distress Skin: left leg wrapped, did not see it , right leg necrotic on the lateral upper right calf HEENT: Atraumatic, PERRLA Cardiovascular: Regular Rate, Normal S1, Normal S2 Lungs: Clear to Auscultation, Normal Air Movement Abdomen: Normal Bowel Sounds, Soft, No Tenderness Neurological: Normal Speech Current Medications: Current Medications Sig/Kailash Start time Last Medication Dose Route Stop Time Status Admin Acetaminophen 650 MG ONCE ONE 07/29 0530 DC 07/29 PO 07/29 0531 0530 Acetaminophen 650 MG .STK-MED ONE 07/28 1400 DC PO 07/28 1401 Acetaminophen 650 MG Q6P PRN 07/22 1700 AC 07/28 PO 1405 Aspirin 81 MG DAILY 07/01 1000 AC 07/29 PO 0815 Atorvastatin Calcium 40 MG 1700 06/30 1700 AC 07/28 PO 1644 Carvedilol 25 MG BID 06/30 2200 AC 07/28 PO 2139 Epoetin Ludwig 3,000 UNIT MoWeFr PRN 07/08 1200 AC IV Epoetin Ludwig 2,000 UNIT MoWeFr PRN 07/08 1200 AC IV Guaifenesin 600 MG Q12 07/18 1000 AC 07/29 PO 0815 Insulin Aspart 0 TIDAC/HS 06/30 2100 AC 07/29 SC 0814 Insulin Detemir 4 UNITS QAM 07/23 1000 AC 07/29 SC 0813 Iron Sucrose 100 MG PER PROTOCL PRN 07/01 1430 AC 07/03 Sodium Chloride 100 ML IV 1221 Isosorbide 30 MG DAILY 07/09 1056 AC 07/29 Mononitrate PO 0815 Multivitamins 1 TAB DAILY 07/01 1000 AC 07/29 PO 0815 Nystatin 1 CHAITANYA TID 07/25 1600 AC 07/29 TOP 0820 Omeprazole 40 MG DAILY AC 07/14 0700 AC 07/29 PO 0530 Prednisone 5 MG DAILY 07/24 1000 AC 07/29 PO 07/30 1001 0815 Sevelamer Carbonate 800 MG WITH MEALS 06/30 1200 AC 07/29 PO 0817 Sodium Chloride 2 SPRAY Q10MIN PRN 07/12 0230 AC CARLITOS Sodium Hypochlorite 1 CHAITANYA BID 07/05 1113 AC 07/29 TOP 0817 Tamsulosin HCl 0.4 MG DAILY 07/01 1000 AC 07/29 PO 0816 Vitamin A/Vitamin D 1 CHAITANYA BID 06/30 2200 AC 07/29 TOP 0817 Warfarin Sodium 2.5 MG COUMADIN 1700 ONE 07/28 1700 DC 07/28 PO 07/28 1701 1644 Zinc Oxide 1 CHAITANYA BID 06/30 2200 AC 07/29 TOP 0817 Assessment/Plan Assessment: 75 y/o M with PMHx of antiphospholipid antibody syndrome, diabetes and CKD who presented with SOB, hoarseness and stridor, found to be uremic with initiation of HD, s/p debridement of chronic left leg ulcer, on IV vancomycin for soft tissue infection, currently awaiting outpatient dialysis slot. Fever of unknown origin: Overnight no fever, blood cultures and NGTD Recently treated with vancomycin and ceftazidime for possible aspiration pneumonia secondary to gram-negative organisms CT abdomen and chest has not revealed any source of infection, blood cultures pending For now we will cont to monitor off antibiotics, ID following, will follow recs. Anemia : Etiology multifactorial. Currently HDS. Per GI anemia likely secondary to other causes then GI. Will have patient follow-up with GI as an outpatient. We'll continue iron supplementation and Epogen. Chest Pain: Resolved. On 07/09 patient had chest pain, ekg-no acute changes. Troponins elevated at 0.14. patient was transferred to telemetry floor for continuous cardiac monitoring, cardiology on board repeat troponin trended down. Chronic left lower extremity ulcer: Has chronic nonhealing ulcers of left leg for which he sees Dr. Pretty as outpatient. S/p excisional debridement through the subcutaneous and muscular tissue with reported seropurulent drainage (06/30) and OR cultures growing diphthteroids and coag-negative Staph. Although these are not typically pathogenic organisms, currently on IV vancomycin for possible soft tissue infection.Wound appears improved, however patient complains of severe pain concerning for ischemia. * ID following * Vancomycin completed * Vascular surgery consulted again. no intervention suggested Antiphospholipid antibody syndrome: chronic right upper extremity DVT. On life- long anti-coagulation with warfarin, takes 5 mg PO QD. * Continue to check INR daily and dose warfarin accordingly to keep INR between 2-3. * INR pending today, will dose accordingly ESRD: Cr was 5 on admission, with gradual increase from 2-3 within the past year. Most likely etiology is progressive diabetic nephropathy. Mj cath was placed and urgent hemodialysis was initiated (06/26) with improvement of mental status. Patient is currently awaiting outpatient dialysis slot. * Nephrology following * Continue HD MW * No PICC lines should be inserted per Nephrology, as patient will need vein site for placement of graft. * Continue sevelamer 800 mg PO TIDAC. * Continue daily Nephrocaps T2DM: Uncontrolled blood sugars this admission, secondary to steroids. * Endocrinology following * Levemir 4U SQ DAILY * Continue NovoLog SSI TIDAC as suggested HTN: Takes amlodipine 10 mg PO QD, carvedilol 25 mg PO BID, furosemide 80 mg PO BID and hydralazine 50 mg PO BID at home. * Holding home amlodipine, furosemide and hydralazine. * Continue home carvedilol. Crohn's disease: Patient has been taking prednisone 10 mg PO QD for many years to prevent flares. * prednisone dose 5 mg daily. As per recommendations from GI, tapering 5mg for one week followed by 2.5mg for one week then 2.5 on every other day for one week then stop. * Aspirin GI, the patient to remain on aspirin, Protonix needed to be added. * C diff was added to rule out C diff toxin infection. Blood cultures were sent. Diet: Renal Dialysis Diet (regular and nectar thick liquids) DVT PPx: Warfarin and ALPs CODE: FULL Problem List: 1. Peripheral vascular disease 2. Chronic ulcer of left lower extremity Pain Ratin Pain Location: left leg Pain Goal: Pain 4 or less Pain Plan: mild pp Tomorrow's Labs & Rationales: inr for warfarin DVT/Prophylaxis: mechanical, pharmacological ARTURO HEATH,HARRY 07/29/16 1316: Attending MD Review Statement Attending Statement Attending MD Statement: examined this patient, discuss w/resident/PA/COATING MACHINE OPERATOR HELPER, agreed w/resident/PA/COATING MACHINE OPERATOR HELPER, reviewed EMR data (avail), discussed with nursing, amended to note Attending Assessment/Plan: Seen and examined. He did experience low-grade fever again yesterday. He offers no complaints. Denies chest pain or shortness of breath. Reports mild cough. On exam he has fair entry bilaterally with no evidence sounds. Abdomen is soft and nontender. His left lower extremity ulceration continues to heal however he has developed a necrotic area over the previous area of discoloration on the dorsum of the left foot. The right leg as well is developing area of mild necrosis on the medial aspect of the upper thigh. Plan: -Off antibiotic therapy has been no significant change of his clinical status.. He has spiked a low-grade fever on and off. His anderson cultures remain negative. We will continue to monitor patient off antibiotic therapy. Repeat blood cultures if fever or real cause. We'll follow-up with the ID service regarding need for any further infectious disease workup -He is chronic left lower extremity wound as well as the new developing wounds do not appear actively infected at present. He is ulceration of the likely secondary to his underlying neuropathy and some degree of vascular disease. -Continue local wound care. Follow-up with wound care service regarding recommendations for his new lower extremity wounds -His hemoglobin level continues to fluctuate up and down but is essentially stable. No need for transfusion at present. -Continue anticoagulation with Coumadin 2.5 mg orally every other day.
--- NOTE | 2016-07-29 10:12 | NUR ---
LATE ENTRY: PT OFF THE FLOOR TO DILAYSIS. PENDING RETURN TO FLOOR.
--- NOTE | 2016-07-29 11:05 | NUR ---
PT NOTED WITH MULTIPLE SKIN ALTERATIONS TO SACRUM/BUTTOCKS AREA. CHRONIC WOUND TO LLE- DSGS CHANGED BY NURSING DAILY. ?NEW WOUND TO RLE, DR. MORRIS NOTIFIED- TO ASSESS. WILL CONT TO MONITOR.
[2016-07-29 12:14] LABS: ABSOLUTE BASOPHIL COUNT 0 /CUMM (0.0-0.2); ABSOLUTE EOSINOPHIL COUNT 0.1 /CUMM (0.0-0.7); ABSOLUTE GRANULOCYTE CT 9.2 /CUMM (1.4-6.5); ABSOLUTE LYMPH COUNT 1.1 /CUMM (1.2-3.4); ABSOLUTE MONOCYTE COUNT 1.4 /CUMM (0.10-0.60); BASOPHIL % 0.3 % (0.0-2.0); EOSINOPHIL % 0.9 % (0-5); GRANULOCYTE % 77.5 % (42.2-75.2); HEMATOCRIT 26.1 % (42-52); MEAN CORPUSCULAR HGB 27.9 PG (27.0-31.0); MEAN CORPUSCULAR HGB CONC 31.6 G/DL (33.0-37.0); MEAN CORPUSCULAR VOLUME 88.3 FL (80.0-94.0); MEAN PLATELET VOLUME 8.7 FL (7.4-10.4); PLATELET COUNT 419 /CUMM (130-400); RBC DISTRIBUTION WIDTH 18.7 % (11.5-14.5); RED BLOOD CELL CT 2.96 /CUMM (4.70-6.10); WHITE BLOOD CELL COUNT 11.8 /CUMM (4.8-10.8)
[2016-07-29 12:20] LABS: PT 27.2 SEC (9.4-12.5)
--- NOTE | 2016-07-29 13:22 | PN- Diabetes ---
Assessment/Plan Assessment: Patient remains on prednisone 5.0 mg daily. He is Levemir 4 units each a.m. In addition, he is on Novolog coverage before meals and Novolog covearge at bedtime. His FSGs were 284, 300, 213, 221 and 219. Plan: 1. increase Levemir to 5 units daily; 2. continue the current Novolog coverage before meals and Novolog coverage at bedtime; 3. monitor FSGs. will follow. Subjective Subjective: He is receiving dialysis at this moment. Objective Last 24 Hrs of Vital Signs/I&O Vital Signs Date Time Temp Pulse Resp B/P Pulse O2 O2 Flow FiO2 Ox Delivery Rate 07/29 0818 98.6 83 20 120/64 90 Room Air 07/29 0816 88 102/48 07/29 0816 88 102/48 07/29 0815 88 102/46 07/29 0004 98.2 92 20 118/52 94 07/29 0000 94 Room Air 07/28 2145 93 130/58 94 Room Air 07/28 2139 93 130/58 07/28 1600 93 Room Air 07/28 1557 99.2 87 20 92/48 93 Room Air 07/28 1504 99.2 07/28 1405 100.6 07/28 1400 100.6 Intake & Output 07/29 1600 07/29 0800 07/29 0000 Intake Total 120 500 Output Total Balance 120 500 Intake, IV 0 Intake, Oral 120 500 Number 2 3 Bowel Movements Patient 148 lb Weight Findings Pertinent Lab/Avtar Results: Laboratory Tests 07/29 1040 Coagulation PT (9.4 - 12.5 SEC) 27.2 H INR (0.90 - 1.17) 2.62 H Hematology CBC w Diff NO MAN DIFF REQ WBC (4.8 - 10.8 /CUMM) 11.8 H RBC (4.70 - 6.10 /CUMM) 2.96 L Hgb (14.0 - 18.0 G/DL) 8.3 L Hct (42 - 52 %) 26.1 L MCV (80.0 - 94.0 FL) 88.3 MCH (27.0 - 31.0 PG) 27.9 RDW (11.5 - 14.5 %) 18.7 H Plt Count (130 - 400 /CUMM) 419 H MPV (7.4 - 10.4 FL) 8.7 Gran % (42.2 - 75.2 %) 77.5 H Lymphocytes % (20.5 - 51.1 %) 9.3 L Monocytes % (1.7 - 9.3 %) 12.0 H Eosinophils % (0 - 5 %) 0.9 Basophils % (0.0 - 2.0 %) 0.3 Absolute Granulocytes (1.4 - 6.5 /CUMM) 9.2 H Absolute Lymphocytes (1.2 - 3.4 /CUMM) 1.1 L Absolute Monocytes (0.10 - 0.60 /CUMM) 1.4 H Absolute Eosinophils (0.0 - 0.7 /CUMM) 0.1 Absolute Basophils (0.0 - 0.2 /CUMM) 0 PUBS MCHC (33.0 - 37.0 G/DL) 31.6 L
--- NOTE | 2016-07-29 14:41 | PN- Nephrology ---
Assessment/Plan Assessment: ESRD (new since 06/26/16): Cause of ESRD is suspected diabetic nephropathy. Had HD today; next on friday. I do not believe renal labs were drawn today at dialysis; either that or results are pending. Anemia: Will continue Epogen 3 times a week with dialysis; On course of IV iron as well. . Suggestion: Had HD today; next on friday continue epogen/IV iron with HD Subjective Subjective: Remains confused Had dialysis this morning. 1.5 L of fluid removed On review of systems Notes some pain at the areas of skin breakdown; He apparently has a new right leg ulcer however the patient refused to let me examine it today Review of Systems: No fever or chills No chest pain or shortness of breath Objective Vital Signs and I&Os Vital Signs Date Time Temp Pulse Resp B/P Pulse O2 O2 Flow FiO2 Ox Delivery Rate 07/29 0818 98.6 83 20 120/64 90 Room Air 07/29 0816 88 102/48 07/29 0816 88 102/48 07/29 0815 88 102/46 07/29 0004 98.2 92 20 118/52 94 07/29 0000 94 Room Air 07/28 2145 93 130/58 94 Room Air 07/28 2139 93 130/58 07/28 1600 93 Room Air 07/28 1557 99.2 87 20 92/48 93 Room Air 07/28 1504 99.2 Intake & Output 07/29 1600 07/29 0400 07/28 1600 07/28 0400 07/27 1600 07/27 0400 Intake Total 120 500 410 50 620 120 Output Total Balance 120 500 410 50 620 120 Intake, IV 0 Intake, Oral 120 500 410 50 620 120 Number 2 3 2 5 4 2 Bowel Movements Patient 148 lb 150 lb 152 lb Weight Physical Exam: General: NAD, comfortable, confused CV: RRR, no m/r/g Pulm: CTAB, no rales Abd: soft, NT Lower Ext: neg edema chest+PETEY Skin: Would not let me do a thorough skin exam Current Medications: Current Medications Sig/Kailash Start time Last Medication Dose Route Stop Time Status Admin Acetaminophen 650 MG ONCE ONE 07/29 529 DC 07/29 PO 07/29 05 0530 Acetaminophen 650 MG Q6P PRN 07/22 1700 AC 07/28 PO 1405 Aspirin 81 MG DAILY 12/05 1000 AC 07/29 PO 0815 Atorvastatin Calcium 40 MG 1700 06/30 1700 AC 07/28 PO 1644 Carvedilol 25 MG BID 06/30 2200 AC 07/28 PO 2139 Epoetin Ludwig 3,000 UNIT MoWeFr PRN 07/08 1200 AC IV Epoetin Ludwig 2,000 UNIT MoWeFr PRN 07/08 1200 AC IV Guaifenesin 600 MG Q12 07/18 1000 AC 07/29 PO 0815 Insulin Aspart 0 TIDAC/HS 06/30 2100 AC 07/29 SC 0814 Insulin Detemir 5 UNITS QAM 07/30 1000 AC SC Insulin Detemir 4 UNITS QAM 07/23 1000 DC 07/29 SC 0813 Iron Sucrose 100 MG PER PROTOCL PRN 07/01 1430 AC 07/03 Sodium Chloride 100 ML IV 1221 Isosorbide 30 MG DAILY 07/09 1056 AC 07/29 Mononitrate PO 0815 Multivitamins 1 TAB DAILY 07/01 1000 AC 07/29 PO 0815 Nystatin 1 CHAITANYA TID 07/25 1600 AC 07/29 TOP 0820 Omeprazole 40 MG DAILY AC 07/14 0700 AC 07/29 PO 0530 Patient Medication 1 ED .STK-MED ONE 07/29 1345 DC Teaching ED 07/29 1346 Prednisone 5 MG DAILY 07/24 1000 AC 07/29 PO 07/30 1001 0815 Sevelamer Carbonate 800 MG WITH MEALS 06/30 1200 AC 07/29 PO 0817 Sodium Chloride 2 SPRAY Q10MIN PRN 07/12 0230 AC CARLITOS Sodium Hypochlorite 1 CHAITANYA BID 07/05 1113 AC 07/29 TOP 0817 Tamsulosin HCl 0.4 MG DAILY 07/01 1000 AC 07/29 PO 0816 Vitamin A/Vitamin D 1 CHAITANYA BID 06/30 2200 AC 07/29 TOP 0817 Warfarin Sodium 2.5 MG COUMADIN 1700 ONE 07/28 1700 DC 07/28 PO 07/28 1701 1644 Zinc Oxide 1 CHAITANYA BID 06/30 2200 AC 07/29 TOP 0817 Results Pertinent Lab Results: Laboratory Tests 07/29 07/29 07/28 1202 1040 0610 Coagulation PT (9.4 - 12.5 SEC) Cancelled 27.2 H 29.1 H INR (0.90 - 1.17) Cancelled 2.62 H 2.80 H Hematology CBC w Diff NO MAN DIFF REQ WBC (4.8 - 10.8 /CUMM) 11.8 H RBC (4.70 - 6.10 /CUMM) 2.96 L Hgb (14.0 - 18.0 G/DL) 8.3 L Hct (42 - 52 %) 26.1 L MCV (80.0 - 94.0 FL) 88.3 MCH (27.0 - 31.0 PG) 27.9 RDW (11.5 - 14.5 %) 18.7 H Plt Count (130 - 400 /CUMM) 419 H MPV (7.4 - 10.4 FL) 8.7 Gran % (42.2 - 75.2 %) 77.5 H Lymphocytes % (20.5 - 51.1 %) 9.3 L Monocytes % (1.7 - 9.3 %) 12.0 H Eosinophils % (0 - 5 %) 0.9 Basophils % (0.0 - 2.0 %) 0.3 Absolute Granulocytes (1.4 - 6.5 /CUMM) 9.2 H Absolute Lymphocytes (1.2 - 3.4 /CUMM) 1.1 L Absolute Monocytes (0.10 - 0.60 /CUMM) 1.4 H Absolute Eosinophils (0.0 - 0.7 /CUMM) 0.1 Absolute Basophils (0.0 - 0.2 /CUMM) 0 PUBS MCHC (33.0 - 37.0 G/DL) 31.6 L 07/27 0615 Coagulation PT (9.4 - 12.5 SEC) 31.8 H INR (0.90 - 1.17) 3.06 H
[2016-07-29 15:05] VITALS: BP 105/67
--- NOTE | 2016-07-29 15:11 | NUR ---
PT ARRIVED BACK FROM DIALYSIS. SEE DOCUMENTED WEIGHT AND VS. PT WITH TEMP OF 101.4. DR. ALEJANDRE NOTIFIED OF FEVER. TO ADMINISTER PRN TYLENOL. WILL CONT TO MONITOR.
--- NOTE | 2016-07-29 18:42 | NUR ---
PT NOTED WITH SOME CONFUSION. PT HAD BEEN A&O X2 EARLIER- UNAWARE OF THE DATE. PT HAD NOTED TO BE WITH MORE CONFUSION POST DILAYSIS. PT DID HAVE A SLIGHT FEVER. PRN TYLENOL ADMINISTERED. DR. ALEJANDRE NOTIFIED OF PT'S FEVER. RECHECK SHOWED 99.1 TEMPERATURE ORALLY. NIH STROKE SCALE ASSESSED- SCORE NOW 3, INCREASED. DR. ALEJANDRE NOTIFIED OF CHANGE IN SCORE D/T PT'S CONFUSION. PT REORIENTED. CALL WAITE IN REACH. WILL CONT TO MONITOR.
[2016-07-29 22:00] VITALS: BP 122/60
--- NOTE | 2016-07-30 07:38 | PN- Diabetes ---
Assessment/Plan Assessment: Patient remains on prednisone 5.0 mg daily. He is Levemir 5 units each a.m. In addition, he is on Novolog coverage before meals and Novolog covearge at bedtime. His fingerstick blood sugars yesterday were in the 97 range. This was a dialysis day. Fingerstick blood sugar this morning is 151. It appears that the patient's blood sugars are much lower during dialysis days than on other days when his eating pattern is different. Plan: Suggest continue the present insulin. To observe the patient's blood sugars today before making further changes. Subjective Subjective: Feels about the same Objective Last 24 Hrs of Vital Signs/I&O Vital Signs Date Time Temp Pulse Resp B/P Pulse O2 O2 Flow FiO2 Ox Delivery Rate 07/29 2200 98.0 102 18 122/60 95 Room Air 07/29 2114 98.0 102 18 122/60 / 1911 97.9 / 1625 99.1 07/29 1518 101.4 01/02 1505 101.4 100 20 105/67 92 Room Air 07/29 0818 98.6 83 20 120/64 90 Room Air 07/29 0816 88 102/48 / 0816 88 102/48 / 0815 88 102/46 Intake & Output 07/30 0800 07/30 0000 07/29 1600 Intake Total 480 Output Total Balance 480 Intake, Oral 480 Number 1 Bowel Movements Patient 150 lb 145 lb Weight Vital Signs Date Time Temp Pulse Resp B/P Pulse O2 O2 Flow FiO2 Ox Delivery Rate 07/29 2200 98.0 102 18 122/60 95 Room Air 07/29 2114 98.0 102 18 122/60 07/29 1911 97.9 07/29 1625 99.1 / 1518 101.4 01/02 1505 101.4 100 20 105/67 92 Room Air 07/29 0818 98.6 83 20 120/64 90 Room Air / 0816 88 102/48 / 0816 88 102/48 / 0815 88 102/46 Intake & Output /03 0800 03 0000 07/29 1600 Intake Total 480 Output Total Balance 480 Intake, Oral 480 Number 1 Bowel Movements Patient 150 lb 145 lb Weight Physical Exam General Appearance: alert, awake Head: normal appearance Neck: normal inspection Respiratory: normal breath sounds Cardiovascular: regular rate/rhythm Extremities: normal inspection Current Medications: Current Medications Sig/Kailash Start time Last Medication Dose Route Stop Time Status Admin Acetaminophen 650 MG Q6P PRN 07/22 1700 AC 07/29 PO 1518 Aspirin 81 MG DAILY 07/01 1000 AC 07/29 PO 0815 Atorvastatin Calcium 40 MG 1700 06/30 1700 AC 07/29 PO 1718 Carvedilol 25 MG BID 06/30 2200 AC 07/29 PO 2115 Epoetin Ludwig 3,000 UNIT MoWeFr PRN 07/08 1200 AC IV Epoetin Ludwig 2,000 UNIT MoWeFr PRN 07/08 1200 AC IV Guaifenesin 600 MG Q12 07/18 1000 AC 07/29 PO 2115 Insulin Aspart 0 TIDAC/HS 06/30 2100 AC 07/29 SC 1718 Insulin Detemir 5 UNITS QAM 07/30 1000 AC SC Insulin Detemir 4 UNITS QAM 07/23 1000 DC 07/29 SC 0813 Iron Sucrose 100 MG PER PROTOCL PRN 07/01 1430 AC 07/03 Sodium Chloride 100 ML IV 1221 Isosorbide 30 MG DAILY 07/09 1056 AC 07/29 Mononitrate PO 0815 Multivitamins 1 TAB DAILY 07/01 1000 AC 07/29 PO 0815 Nystatin 1 CHAITANYA TID 07/25 1600 AC 07/29 TOP 2116 Omeprazole 40 MG DAILY AC 07/14 0700 AC 07/30 PO 0549 Oxycodone/ 1 TAB ONCE ONE 07/29 1914 DC 07/29 Acetaminophen PO 07/29 1916 1920 Patient Medication 1 ED .STK-MED ONE 07/29 1345 DC Teaching ED 07/29 1346 Prednisone 5 MG DAILY 07/24 1000 AC 07/29 PO 07/30 1001 0815 Sevelamer Carbonate 800 MG WITH MEALS 06/30 1200 AC 07/29 PO 1718 Sodium Chloride 2 SPRAY Q10MIN PRN 07/12 0230 AC CARLITOS Sodium Hypochlorite 1 CHAITANYA BID 07/05 1113 AC 07/29 TOP 2116 Tamsulosin HCl 0.4 MG DAILY 07/01 1000 AC 07/29 PO 0816 Vitamin A/Vitamin D 1 CHAITANYA BID 06/30 2200 AC 07/29 TOP 2115 Zinc Oxide 1 CHAITANYA BID 06/30 2200 AC 07/29 TOP 2116 Findings Pertinent Lab/Avtar Results: Laboratory Tests 07/29 07/29 1202 1040 Coagulation PT (9.4 - 12.5 SEC) Cancelled 27.2 H INR (0.90 - 1.17) Cancelled 2.62 H Hematology CBC w Diff NO MAN DIFF REQ WBC (4.8 - 10.8 /CUMM) 11.8 H RBC (4.70 - 6.10 /CUMM) 2.96 L Hgb (14.0 - 18.0 G/DL) 8.3 L Hct (42 - 52 %) 26.1 L MCV (80.0 - 94.0 FL) 88.3 MCH (27.0 - 31.0 PG) 27.9 RDW (11.5 - 14.5 %) 18.7 H Plt Count (130 - 400 /CUMM) 419 H MPV (7.4 - 10.4 FL) 8.7 Gran % (42.2 - 75.2 %) 77.5 H Lymphocytes % (20.5 - 51.1 %) 9.3 L Monocytes % (1.7 - 9.3 %) 12.0 H Eosinophils % (0 - 5 %) 0.9 Basophils % (0.0 - 2.0 %) 0.3 Absolute Granulocytes (1.4 - 6.5 /CUMM) 9.2 H Absolute Lymphocytes (1.2 - 3.4 /CUMM) 1.1 L Absolute Monocytes (0.10 - 0.60 /CUMM) 1.4 H Absolute Eosinophils (0.0 - 0.7 /CUMM) 0.1 Absolute Basophils (0.0 - 0.2 /CUMM) 0 PUBS MCHC (33.0 - 37.0 G/DL) 31.6 L
--- NOTE | 2016-07-30 08:48 | PN- Housestaff ---
ESTELA HEATH,[facility] 07/30/16 0848: Subjective Follow-up For: Left lower leg nonhealing ulcer Episodic low-grade fever Subjective: Patient seen and examined this morning. He was lying comfortably in bed in no acute distress. He had low-grade fever again this morning 100.5 Fahrenheit. He was complaining of urinary burning. Also is complaining of burning in his sacral wound secondary to loose stool(he has Crohn's disease and loose stool is baseline for him), other vitals remained on within normal limits. Review of Systems Constitutional: Reports: fever. Denies: chills. Cardiovascular: Denies: chest pain, palpitations. Respiratory: Denies: cough, short of breath, sputum production. Gastrointestinal: Denies: abdominal pain, constipation, diarrhea, nausea, vomiting. Genitourinary: Reports: dysuria. Objective Last 24 Hrs of Vital Signs/I&O Vital Signs Date Time Temp Pulse Resp B/P Pulse O2 O2 Flow FiO2 Ox Delivery Rate 07/30 922 108 130/64 07/30 922 108 130/64 07/30 0923 108 130/64 07/30 0922 100.5 07/30 0911 100.5 108 20 130/64 90 Room Air 07/29 2200 98.0 102 18 122/60 95 Room Air 07/29 2115 98.0 102 18 122/60 07/29 1911 97.9 07/29 1625 99.1 07/29 1518 101.4 07/29 1505 101.4 100 20 105/67 92 Room Air Intake & Output 07/30 1600 07/30 0800 07/30 0000 Intake Total 480 Output Total Balance 480 Intake, Oral 480 Number 1 Bowel Movements Patient 68.039 kg Weight Physical Exam General Appearance: Alert, Oriented X3, Cooperative Skin: unstageable sacral wound, almost 5x7cm Cardiovascular: Regular Rate, Normal S1, Normal S2 Lungs: Clear to Auscultation, Normal Air Movement Abdomen: Normal Bowel Sounds, Soft, No Tenderness Extremities: lower left leg nonhealing ulcer, currently wrapped, right lower leg echymosis, 1cm X2cm, signs of infection Current Medications: Current Medications Sig/Kailash Start time Last Medication Dose Route Stop Time Status Admin Acetaminophen 650 MG Q6P PRN 07/22 1700 AC 07/30 PO 0922 Aspirin 81 MG DAILY 12/05 1000 AC 07/30 PO 0923 Atorvastatin Calcium 40 MG 1700 06/30 1700 AC 07/29 PO 1718 Carvedilol 25 MG BID 06/30 2200 AC 07/30 PO 0923 Epoetin Ludwig 3,000 UNIT MoWeFr PRN 07/08 1200 AC IV Epoetin Ludwig 2,000 UNIT MoWeFr PRN 07/08 1200 AC IV Guaifenesin 600 MG Q12 07/18 1000 AC 07/30 PO 0923 Insulin Aspart 0 TIDAC/HS 06/30 2100 AC 07/30 SC 0923 Insulin Detemir 5 UNITS QAM 07/30 1000 AC 07/30 SC 0924 Insulin Detemir 4 UNITS QAM 07/23 1000 DC 07/29 SC 0813 Iron Sucrose 100 MG PER PROTOCL PRN 07/01 1430 AC 07/03 Sodium Chloride 100 ML IV 1221 Isosorbide 30 MG DAILY 07/09 1056 AC 07/30 Mononitrate PO 0923 Multivitamins 1 TAB DAILY 07/01 1000 AC 07/30 PO 0923 Nystatin 1 CHAITANYA TID 07/25 1600 AC 07/30 TOP 0925 Omeprazole 40 MG DAILY AC 07/14 0700 AC 07/30 PO 0549 Oxycodone/ 1 TAB ONCE ONE 07/29 1914 DC 07/29 Acetaminophen PO 07/29 1915 1920 Patient Medication 1 ED .STK-MED ONE 07/29 1345 DC Teaching ED 07/29 1346 Prednisone 5 MG DAILY 07/24 1000 DC 07/30 PO 07/30 1001 0925 Sevelamer Carbonate 800 MG WITH MEALS 06/30 1200 AC 07/30 PO 0923 Sodium Chloride 2 SPRAY Q10MIN PRN 07/12 0230 AC CARLITOS Sodium Hypochlorite 1 CHAITANYA BID 07/05 1113 AC 07/29 TOP 2116 Tamsulosin HCl 0.4 MG DAILY 07/01 1000 AC 07/30 PO 0923 Vitamin A/Vitamin D 1 CHAITANYA BID 06/30 2200 AC 07/30 TOP 0924 Warfarin Sodium 2.5 MG COUMADIN 1700 ONE 07/30 1700 UNVr PO 07/30 1701 Zinc Oxide 1 CHAITANYA BID 06/30 2200 AC 07/30 TOP 0925 Last 24 Hrs of Lab/Avtar Results Last 24 Hrs of Labs/Mics: Laboratory Tests 07/30/16 0620: PT 24.5 H, INR 2.35 H 07/29/16 1202: PT Cancelled, INR Cancelled 07/29/16 1040: PT 27.2 H, INR 2.62 H, CBC w Diff NO MAN DIFF REQ, RBC 2.96 L, MCV 88.3, MCH 27.9, RDW 18.7 H, MPV 8.7, Gran % 77.5 H, Lymphocytes % 9.3 L, Monocytes % 12.0 H, Eosinophils % 0.9, Basophils % 0.3, Absolute Granulocytes 9.2 H, Absolute Lymphocytes 1.1 L, Absolute Monocytes 1.4 H, Absolute Eosinophils 0.1 , Absolute Basophils 0, PUBS MCHC 31.6 L Microbiology 07/30 939 URINE ROUT: Urine Culture - ORD 07/30 939 BLOOD: Blood Culture - ORD 07/30 939 BLOOD: Blood Culture - ORD Assessment/Plan Assessment: 75 y/o M with PMHx of antiphospholipid antibody syndrome, diabetes and CKD who presented with SOB, hoarseness and stridor, found to be uremic with initiation of HD, s/p debridement of chronic left leg ulcer, on IV vancomycin for soft tissue infection, currently awaiting outpatient dialysis slot. Fever of unknown origin: low grade fever this am, will repeat blood cultures, also patient complain of some urinary burning will get repeat urine culture, in the past he has grown yeast. Recently treated with vancomycin and ceftazidime for possible aspiration pneumonia secondary to gram-negative organisms CT abdomen and chest has not revealed any source of infection, blood cultures pending For now we will cont to monitor off antibiotics, ID following, will follow recs. Anemia : Etiology multifactorial. Currently HDS. Per GI anemia likely secondary to other causes then GI. Will have patient follow-up with GI as an outpatient. We'll continue iron supplementation and Epogen. Chronic left lower extremity ulcer: Has chronic nonhealing ulcers of left leg for which he sees Dr. Pretty as outpatient. S/p excisional debridement through the subcutaneous and muscular tissue with reported seropurulent drainage (06/30) and OR cultures growing diphthteroids and coag-negative Staph. Although these are not typically pathogenic organisms, currently on IV vancomycin for possible soft tissue infection.Wound appears improved, however patient complains of severe pain concerning for ischemia. * ID following * Vancomycin completed * Vascular surgery consulted again. no intervention suggested Antiphospholipid antibody syndrome: chronic right upper extremity DVT. On life- long anti-coagulation with warfarin, takes 5 mg PO QD. * Continue to check INR daily and dose warfarin accordingly to keep INR between 2-3. * INR pending today, will dose accordingly ESRD: Cr was 5 on admission, with gradual increase from 2-3 within the past year. Most likely etiology is progressive diabetic nephropathy. Mj cath was placed and urgent hemodialysis was initiated (06/26) with improvement of mental status. Patient is currently awaiting outpatient dialysis slot. * Nephrology following * Continue HD MW * No PICC lines should be inserted per Nephrology, as patient will need vein site for placement of graft. * Continue sevelamer 800 mg PO TIDAC. * Continue daily Nephrocaps T2DM: Uncontrolled blood sugars this admission, secondary to steroids. * Endocrinology following * Levemir 4U SQ DAILY * Continue NovoLog SSI TIDAC as suggested HTN: Takes amlodipine 10 mg PO QD, carvedilol 25 mg PO BID, furosemide 80 mg PO BID and hydralazine 50 mg PO BID at home. * Holding home amlodipine, furosemide and hydralazine. * Continue home carvedilol. Crohn's disease: Patient has been taking prednisone 10 mg PO QD for many years to prevent flares. * prednisone taper currently dose 2.5 mg daily. As per recommendations from GI, tapering 2.5mg for one week then 2.5 on every other day for one week then stop. * Aspirin GI, the patient to remain on aspirin, Protonix needed to be added. * C diff negative Diet: Renal Dialysis Diet (regular and nectar thick liquids) DVT PPx: Warfarin and ALPs CODE: FULL Problem List: 1. Peripheral vascular disease 2. Crohns disease 3. Type 2 diabetes mellitus 4. Chronic ulcer of left lower extremity 5. Antiphospholipid antibody syndrome Pain Ratin Pain Location: Left lower leg Pain Goal: Remain pain free Pain Plan: Tylenol Tomorrow's Labs & Rationales: CBC for H&H monitoring BEP for lytes monitoring INR for coumadin dosing ARTURO HEATH,HARRY 07/30/16 8018: Attending Review Statement Attending Statement Attending Statement: examined this patient, discuss w/resident/PA/TORNADO CHASER, agreed w/resident/PA/TORNADO CHASER, reviewed EMR data (avail), discussed with nursing, discussed with case mgmt, amended to note Attending Assessment/Plan: Patient continues to spike fever on and off. Physical examination is relatively unchanged. His urine was noted to be very prudent today. Case was discussed with ID service and decision has been made to start antifungal therapy for his previously noted fungiuria.
[2016-07-30 09:11] VITALS: BP 130/64
[2016-07-30 09:16] LABS: PT 24.5 SEC (9.4-12.5)
--- NOTE | 2016-07-30 12:34 | NUR ---
WOUND CARE: REQUESTED BY NURSING STAFF FOR REASSESSMENT OF SKIN ALTERATIONS PRESENT ON ADMISSION - PRESENT AT BEDSIDE AND RESIDENT PRESENT - PT LETHARGIC CURRENTLY ON GROUP 2 APM - COCCYX PERSISTS WITH UNSTAGEABLE PRESSURE INJURY CLUSTERED 6X4 CM 100% MOIST YELLOW FILL - MOISTURE BARRIER PRESENT AT PERIWOUND - SCANT SEROUS DRNG - RIGHT LEG FULL THICNKESS VENOUS/ARTERIAL ULCER PERSISTSAPPROX 40 X 20 CM - EXPOSED TENDON MIDLINE, AND MOIST GRANULATION THROUGHOUT CENTER OF WOUND BASE - DRY FIRM NECROTIC ESCHAR PERSISTS TO DISTAL AND PROXIMAL EDGES OF WOUND - PERIWOUND UNREMARKABLE - RECOMMENDATION: PLEASE OBTAIN CLINITRON MATTRESS, PT HAS SHOWN NO IMPROVEMENT IN WOUND STATUS AND HAS SHOWN DETERIORATION IN HIS MEDICAL STATUS WELL - CLEANSE COCCYX WITH NS FB SANTYL OINTMENT FB XEROFORM AND DPD DAILY - SIDELYING POSITION WIB - APPLY HYDROGEL FB XEROFORM TO EXPOSED TENDON RIGHT LATERAL LEG - APPLY 1/4 STRNGTH MOIST DAKINS GAUZE TO MOIST GRANULATION RIGHT LEG, AND DRY GAUZE TO STABLE ESCHAR RIGHT LEG FB KERLIX WRAP TWICE DAILY AND PRN - OFFLOAD PRESSURE TO HEEL PLEASE - PLEASE HAVE VASCULAR F/U FOR FURTHER RECOMMENDATIONS
--- NOTE | 2016-07-30 12:36 | PN- Nephrology ---
Assessment/Plan Assessment: 1. ESRD secondary to diabetic nephropathy 2. Recurrent fevers - low grade; off antibiotics; WBC minimally elevated with mild left shift 3. Confusion 4. Diabetes mellitus with peripheral vascular disease status post right TMA, status post debridement left leg/ankle ulcer 5. Anemia - on Epogen and IV iron 6. Antiphospholipid antibody syndrome status post DVT Suggestion: 1. Hemodialysis scheduled for tomorrow 2. Management of fevers per ID; repeat cultures pending 3. Vascular surgery, podiatry and wound service following Subjective Subjective: Patient remains confused with no specific complaints today. Temp 100.5, Tmax 101.4. Objective Vital Signs and I&Os Vital Signs Date Time Temp Pulse Resp B/P Pulse O2 O2 Flow FiO2 Ox Delivery Rate 07/30 922 108 130/64 07/30 922 108 130/64 07/30 09 108 130/64 07/30 0922 100.5 07/30 0911 100.5 108 20 130/64 90 Room Air 07/29 2200 98.0 102 18 122/60 95 Room Air 07/29 2115 98.0 102 18 122/60 07/29 1911 97.9 07/29 1625 99.1 07/29 1518 101.4 07/29 1505 101.4 100 20 105/67 92 Room Air Intake & Output 07/30 1600 07/30 0400 07/29 1600 07/29 0400 07/28 1600 07/28 0400 Intake Total 480 120 500 410 50 Output Total 100 Balance -100 480 120 500 410 50 Intake, IV 0 Intake, Oral 480 120 500 410 50 Number 1 2 3 2 5 Bowel Movements Output, Urine 100 Patient 150 lb 145 lb 150 lb Weight Physical Exam: General: Well-developed white male in NAD Skin: No rash or jaundice HEENT: Conjunctivae pink, sclerae anicteric, mucous membranes moist Neck: Without masses or thyromegaly, no supraclavicular or cervical adenopathy; there is a right IJ tunneled dialysis catheter in place Chest: Scattered rhonchi anterolaterally Heart: Regular rate and rhythm without S3 or rub Abdomen: Soft and nontender without palpable masses or organomegaly Extremities: Lower extremity dressing intact Neuro: Confused, no focal findings, no asterixis or myoclonus Results Pertinent Lab Results: Laboratory Tests 07/30 07/29 07/29 0620 1202 1040 Coagulation PT (9.4 - 12.5 SEC) 24.5 H Cancelled 27.2 H INR (0.90 - 1.17) 2.35 H Cancelled 2.62 H Hematology CBC w Diff NO MAN DIFF REQ WBC (4.8 - 10.8 /CUMM) 11.8 H RBC (4.70 - 6.10 /CUMM) 2.96 L Hgb (14.0 - 18.0 G/DL) 8.3 L Hct (42 - 52 %) 26.1 L MCV (80.0 - 94.0 FL) 88.3 MCH (27.0 - 31.0 PG) 27.9 RDW (11.5 - 14.5 %) 18.7 H Plt Count (130 - 400 /CUMM) 419 H MPV (7.4 - 10.4 FL) 8.7 Gran % (42.2 - 75.2 %) 77.5 H Lymphocytes % (20.5 - 51.1 %) 9.3 L Monocytes % (1.7 - 9.3 %) 12.0 H Eosinophils % (0 - 5 %) 0.9 Basophils % (0.0 - 2.0 %) 0.3 Absolute Granulocytes (1.4 - 6.5 /CUMM) 9.2 H Absolute Lymphocytes (1.2 - 3.4 /CUMM) 1.1 L Absolute Monocytes (0.10 - 0.60 /CUMM) 1.4 H Absolute Eosinophils (0.0 - 0.7 /CUMM) 0.1 Absolute Basophils (0.0 - 0.2 /CUMM) 0 PUBS MCHC (33.0 - 37.0 G/DL) 31.6 L /01 0610 Coagulation PT (9.4 - 12.5 SEC) 29.1 H INR (0.90 - 1.17) 2.80 H
--- NOTE | 2016-07-30 14:31 | NUR ---
Physical Therapy: Attempted to see pt this afternoon. Pt lethargic and minimally responsive- able to open eyes to stimulus but unable to keep them open. Speech is mumbled. Pt unable to participate at this time. Will follow up as appropriate. Thank you.
--- NOTE | 2016-07-30 14:52 | NUR ---
CLINITRON MATTRESS ORDER OBTAINED; MATTRESS ORDER PLACED;
--- NOTE | 2016-07-30 15:03 | PN- Infect Dx ---
Subjective Subjective: MAXIMUM TEMPERATURE 101.4. He is unable to provide any history secondary to his lethargy and apparent confusion. Objective Last 24 Hrs of Vital Signs/I&O Vital Signs Date Time Temp Pulse Resp B/P Pulse O2 O2 Flow FiO2 Ox Delivery Rate 07/30 1300 98.7 07/30 1300 98.7 90 07/30 0923 108 130/64 07/30 0923 108 130/64 07/30 0923 108 130/64 07/30 0922 100.5 07/30 0911 100.5 108 20 130/64 90 Room Air 07/30 0800 93 Room Air 07/29 2200 98.0 102 18 122/60 95 Room Air 07/29 2115 98.0 102 18 122/60 07/29 1911 97.9 07/29 1625 99.1 07/29 1518 101.4 07/29 1505 101.4 100 20 105/67 92 Room Air Intake & Output 07/30 1600 07/30 0800 07/30 0000 Intake Total 360 480 Output Total 100 Balance 260 480 Intake, IV 0 Intake, Oral 360 480 Number 0 1 Bowel Movements Output, Urine 100 Patient 150 lb Weight Physical Exam Other Physical Findings: He appears weak, lethargic, unable to carry on a conversation Chest tunneled dialysis catheter in the right upper chest with no inflammation at the site Lungs scattered crackles bilaterally Heart regular rhythm with no murmur Abdomen is soft, with no obvious tenderness, positive bowel sounds Extremities new necrotic lesions on the left medial thigh and lateral aspect of the right leg Results Last 24 Hours of Lab Results: Laboratory Tests 07/30 0620 Coagulation PT (9.4 - 12.5 SEC) 24.5 H INR (0.90 - 1.17) 2.35 H Last 24 Hours of Avtar Results: Blood cultures July 30 pending Urine culture July 30 pending Assessment/Plan Impression: Recurrent fevers with mild leukocytosis with a deterioration in his overall condition, with increased lethargy and confusion. Possible sources of sepsis include the urinary tract, with candiduria again isolated from the most recent urine culture, pneumonia, with lethargy increasing his risk for aspiration, though his respiratory status remains relatively stable, and the dialysis catheter, though there is no inflammation at the site, and with most recent blood cultures from 6 days ago negative. His new necrotic skin lesions raise concern for a process such as calciphylaxis, which could also explain the fever. Suggestion: 1. Consider further evaluation of his new skin lesions for calciphylaxis 2. Repeat chest x-ray 3. Would begin Fluconazole 400 mg po today and re-dose with 400 mg po after every dialysis
[2016-07-30 16:05] VITALS: BP 130/60
--- NOTE | 2016-07-30 20:29 | NUR ---
NURSING NOTE: TEMP @ 1815 WAS 103. IMPORT EXPORT CLERK CYNTHIA NOTIFIED. PATIENT GIVEN 650MG OF TYLENOL. TEMP RETAKEN @ 1929 102.9. COLD COMPRESS APPLIED TO FOREHEAD AND UNDER ARMS. IMPORT EXPORT CLERK PAGED BUT DIDN'T RETURN CALL. TEMP @ 1999 IS 97.8. NIGHT NURSE WILL CONTACT IMPORT EXPORT CLERK.
[2016-07-31 00:36] VITALS: BP 110/60
--- NOTE | 2016-07-31 07:34 | PN- Diabetes ---
Assessment/Plan Assessment: Patient remains on prednisone 5.0 mg daily. He is on Levemir 5 units each a.m. In addition, he is on Novolog coverage before meals and Novolog covearge at bedtime. His fingerstick blood sugars yesterday were in good range. It appears that the patient's blood sugars are much lower during dialysis days than on other days when his eating pattern is different. The patient is still febrile with a MAXIMUM TEMPERATURE of 103. Plan: Suggest continue the present insulin. Subjective Subjective: Feels okay but is somewhat confused Objective Last 24 Hrs of Vital Signs/I&O Vital Signs Date Time Temp Pulse Resp B/P Pulse O2 O2 Flow FiO2 Ox Delivery Rate 07/31 35 98.9 83 20 110/60 90 Room Air 07/30 2210 130/60 07/30 2049 97.6 07/30 2005 97.3 07/30 1944 102.9 07/30 1840 103.0 07/30 1813 103.0 07/30 1808 115 94 07/30 1605 99.9 57 20 130/60 87 07/30 1300 98.7 07/30 1300 98.7 90 07/30 0923 108 130/64 07/30 0923 108 130/64 07/30 0923 108 130/64 07/30 0922 100.5 07/30 0911 100.5 108 20 130/64 90 Room Air 07/30 0800 93 Room Air Intake & Output 07/31 0800 07/31 0000 07/30 1600 Intake Total 100 220 360 Output Total 100 Balance 100 220 260 Intake, IV 0 Intake, Oral 100 220 360 Number 1 1 0 Bowel Movements Output, Urine 100 Patient 146 lb Weight Vital Signs Date Time Temp Pulse Resp B/P Pulse O2 O2 Flow FiO2 Ox Delivery Rate 07/31 35 98.9 83 20 110/60 90 Room Air 07/301 130/60 07/30 2049 97.6 07/30 2005 97.3 07/30 1944 102.9 07/30 1840 103.0 07/30 1813 103.0 07/30 1808 115 94 07/30 1605 99.9 57 20 130/60 87 07/30 1300 98.7 07/30 1300 98.7 90 07/30 0923 108 130/64 07/30 0923 108 130/64 07/30 0923 108 130/64 07/30 0922 100.5 07/30 0911 100.5 108 20 130/64 90 Room Air 07/30 0800 93 Room Air Intake & Output 07/31 0800 07/31 0000 07/30 1600 Intake Total 100 220 360 Output Total 100 Balance 100 220 260 Intake, IV 0 Intake, Oral 100 220 360 Number 1 1 0 Bowel Movements Output, Urine 100 Patient 146 lb Weight Physical Exam General Appearance: alert, awake, comfortable Head: normal appearance Respiratory: normal breath sounds Cardiovascular: regular rate/rhythm Abdomen: normal bowel sounds Current Medications: Current Medications Sig/Kailash Start time Last Medication Dose Route Stop Time Status Admin Acetaminophen 650 MG .STK-MED ONE 07/30 181 DC PO 07/30 181 Acetaminophen 650 MG .STK-MED ONE 07/30 0916 DC PO 07/30 0917 Acetaminophen 650 MG Q6P PRN 07/22 1700 AC 07/30 PO 1813 Aspirin 81 MG DAILY 07/01 1000 AC 07/30 PO 0923 Atorvastatin Calcium 40 MG 1700 06/30 1700 AC 07/30 PO 1733 Carvedilol 25 MG BID 06/30 2200 AC 07/30 PO 2211 Epoetin Ludwig 3,000 UNIT MoWeFr PRN 07/08 1200 AC IV Epoetin Ludwig 2,000 UNIT MoWeFr PRN 07/08 1200 AC IV Fluconazole 400 MG DAILY 07/30 1551 AC 07/30 PO 1748 Guaifenesin 600 MG Q12 07/18 1000 AC 07/30 PO 2210 Insulin Aspart 0 TIDAC/HS 06/30 2100 AC 07/30 SC 1730 Insulin Detemir 5 UNITS QAM 07/30 1000 AC 07/30 SC 0924 Iron Sucrose 100 MG PER PROTOCL PRN 07/01 1430 AC 07/03 Sodium Chloride 100 ML IV 1221 Isosorbide 30 MG DAILY 07/09 1056 AC 07/30 Mononitrate PO 0923 Multivitamins 1 TAB DAILY 07/01 1000 AC 07/30 PO 0923 Nystatin 1 CHAITANYA TID 07/25 1600 AC 07/30 TOP 2211 Omeprazole 40 MG DAILY AC 07/14 0700 AC 07/31 PO 0645 Prednisone 2.5 MG DAILY 07/31 1000 AC PO 08/06 1001 Prednisone 5 MG DAILY 07/24 1000 DC 07/30 PO 07/30 1001 0925 Sevelamer Carbonate 800 MG WITH MEALS 06/30 1200 AC 07/30 PO 1733 Sodium Chloride 2 SPRAY Q10MIN PRN 07/12 0230 AC CARLITOS Sodium Hypochlorite 1 CHAITANYA BID 07/05 1113 AC 07/30 TOP 2210 Tamsulosin HCl 0.4 MG DAILY 07/01 1000 AC 07/30 PO 0923 Vitamin A/Vitamin D 1 CHAITANYA BID 06/30 2200 AC 07/30 TOP 2212 Warfarin Sodium 2.5 MG COUMADIN 1700 ONE 07/30 1700 DC 07/30 PO 07/30 1701 1732 Zinc Oxide 1 CHAITANYA BID 06/30 2200 AC 07/30 TOP 2212
[2016-07-31 08:29] VITALS: BP 112/64
[2016-07-31 08:56] LABS: ABSOLUTE BASOPHIL COUNT 0 /CUMM (0.0-0.2); ABSOLUTE EOSINOPHIL COUNT 0.1 /CUMM (0.0-0.7); ABSOLUTE GRANULOCYTE CT 15.5 /CUMM (1.4-6.5); ABSOLUTE LYMPH COUNT 1.2 /CUMM (1.2-3.4); ABSOLUTE MONOCYTE COUNT 1.8 /CUMM (0.10-0.60); BASOPHIL % 0.1 % (0.0-2.0); EOSINOPHIL % 0.5 % (0-5); GRANULOCYTE % 83.3 % (42.2-75.2); HEMATOCRIT 29.2 % (42-52); MEAN CORPUSCULAR HGB 27.4 PG (27.0-31.0); MEAN CORPUSCULAR HGB CONC 31.2 G/DL (33.0-37.0); MEAN CORPUSCULAR VOLUME 87.8 FL (80.0-94.0); PLATELET COUNT 416 /CUMM (130-400); RBC DISTRIBUTION WIDTH 18.6 % (11.5-14.5); RED BLOOD CELL CT 3.33 /CUMM (4.70-6.10)
[2016-07-31 09:22] LABS: WHITE BLOOD CELL COUNT 18.6 /CUMM (4.8-10.8)
--- NOTE | 2016-07-31 10:35 | PN- Housestaff ---
Subjective Follow-up For: Left lower leg nonhealing ulcer Episodic low-grade fever Subjective: Patient seen and examined this morning. He was lying comfortably in bed in no acute distress. He had fever spike to 103 yesterday. He was started on fluconazole yesterday for urocandidasis. He is due for dialysis today. Review of Systems Constitutional: Reports: see HPI. Objective Last 24 Hrs of Vital Signs/I&O Vital Signs Date Time Temp Pulse Resp B/P Pulse O2 O2 Flow FiO2 Ox Delivery Rate 07/31 2000 99 Nasal 5.0L Cannula 07/31 1700 100.3 07/31 1600 102.0 07/31 1600 70/00 07/31 1600 102.0 100 19 70/0 100 Nasal 5.0L Cannula 07/31 1600 99 Nasal 5.0L Cannula 07/31 1515 102.8 07/31 1500 102.8 64/36 07/31 1448 102 100/60 07/31 1448 102 100/60 07/31 1448 102 100/60 07/31 1415 101.7 07/31 1400 80/40 07/31 1230 92 Nasal 3.0L Cannula 07/31 1230 101.8 100 20 102/50 86 Room Air 07/31 0829 98.2 102 20 112/64 92 Room Air 07/31 0036 98.9 83 20 110/60 90 Room Air 07/30 2211 130/60 Intake & Output 07/31 1600 07/31 0800 07/31 0000 Intake Total 100 220 Output Total Balance 100 220 Intake, Oral 100 220 Number 1 1 Bowel Movements Patient 64.58 kg 66.224 kg Weight Physical Exam General Appearance: No Acute Distress Cardiovascular: Regular Rate, Normal S1, Normal S2 Lungs: decrease air entry at lung bases, b/l Abdomen: Normal Bowel Sounds, Soft, No Tenderness Extremities: chronic left lower ext wound Current Medications: Current Medications Sig/Kailash Start time Last Medication Dose Route Stop Time Status Admin Acetaminophen 1,000 MG ONCE ONE 07/31 1515 DC 07/31 N/A 1 UNIT IV 07/31 1529 1600 Acetaminophen 650 MG Q6P PRN 07/22 1700 AC 07/31 PO 1415 Aspirin 81 MG DAILY 07/01 1000 AC 07/31 PO 1447 Atorvastatin Calcium 40 MG 1700 06/30 1700 AC 07/30 PO 1733 Carvedilol 25 MG BID 06/30 2200 DC 07/30 PO 2211 Ceftazidime 1,000 MG Q24 07/31 1930 AC IV Epoetin Ludwig 3,000 UNIT MoWeFr PRN 07/08 1200 AC IV Epoetin Ludwig 2,000 UNIT MoWeFr PRN 07/08 1200 AC IV Fluconazole 400 MG 1700 07/31 1700 AC PO Fluconazole 400 MG DAILY 07/30 1551 DC 07/30 PO 1748 Guaifenesin 600 MG Q12 07/18 1000 AC 07/31 PO 1449 Insulin Aspart 0 TIDAC/HS 06/30 2100 AC 07/30 SC 1730 Insulin Detemir 5 UNITS QAM 07/30 1000 AC 07/31 SC 1446 Iron Sucrose 100 MG PER PROTOCL PRN 07/01 1430 AC 07/03 Sodium Chloride 100 ML IV 1221 Isosorbide 30 MG DAILY 07/09 1056 DC 07/30 Mononitrate PO 0923 Multivitamins 1 TAB DAILY 07/01 1000 AC 07/31 PO 1447 Norepinephrine 4 MG Q24H 07/31 1600 DC 07/31 Sodium Chloride 250 ML IV 1600 Nystatin 1 CHAITANYA TID 07/25 1600 AC 07/31 TOP 1230 Omeprazole 40 MG DAILY AC 07/14 0700 AC 07/31 PO 0645 Prednisone 2.5 MG DAILY 07/31 1000 AC PO 08/06 1001 Sevelamer Carbonate 800 MG WITH MEALS 06/30 1200 AC 07/30 PO 1733 Sodium Chloride 1,000 ML BOLUS ONE 07/31 2000 DC 07/31 IV 07/31 2059 2000 Sodium Chloride 1,000 ML BOLUS ONE 07/31 2000 DC IV 07/31 2059 Sodium Chloride 1,000 ML BOLUS ONE 07/31 1845 DC 07/31 IV 07/31 1944 1830 Sodium Chloride 500 ML .Q30M ONE 07/31 1800 DC 07/31 IV 07/31 1829 1606 Sodium Chloride 500 ML BOLUS ONE 07/31 1800 DC 07/31 IV 07/31 1829 1646 Sodium Chloride 500 ML BOLUS ONE 07/31 1800 DC 07/31 IV 07/31 1829 1745 Sodium Chloride 2 SPRAY Q10MIN PRN 07/12 0230 AC CARLITOS Sodium Hypochlorite 1 CHAITANYA BID 07/05 1113 AC 07/31 TOP 1229 Tamsulosin HCl 0.4 MG DAILY 07/01 1000 AC 07/30 PO 0923 Vancomycin HCl 1,000 MG DAILY 07/31 1524 DC Sodium Chloride 250 ML IV 07/31 1623 Vitamin A/Vitamin D 1 CHAITANYA BID 06/30 2200 AC 07/31 TOP 1230 Warfarin Sodium 2.5 MG COUMADIN 1700 ONE 07/31 1700 DC PO 07/31 1701 Zinc Oxide 1 CHAITANYA BID 06/30 2200 AC 07/31 TOP 1229 Last 24 Hrs of Lab/[place] Results Last 24 Hrs of Labs/Mics: Laboratory Tests 07/31/16 1620: Lactic Acid 1.9 07/31/16 1529: Lactic Acid 2.2 H 07/31/16 1415: Troponin I 0.05 07/31/16 1120: Total Bilirubin 0.4, Direct Bilirubin 0.4, AST 22, ALT 35, Alkaline Phosphatase 132 H, Total Protein 5.8 L, Albumin 2.3 L 07/31/16 0800: PT Cancelled, INR Cancelled, CBC w Diff MAN DIFF ORDERED, RBC 3.33 L, MCV 87.8, MCH 27.4, RDW 18.6 H, MPV 9.0, Gran % 83.3 H, Lymphocytes % 6.3 L, Monocytes % 9.8 H, Eosinophils % 0.5, Basophils % 0.1, Absolute Granulocytes 15.5 H, Segmented Neutrophils 79 H, Band Neutrophils 4, Absolute Lymphocytes 1.2, Lymphocytes 7 L, Monocytes 9, Absolute Monocytes 1.8 H, Absolute Eosinophils 0.1, Absolute Basophils 0, Myelocytes 1 H, Platelet Estimate ADEQUATE, Hypochromic-Microcytic 1+, Poikilocytosis 1+, Anisocytosis 1+, PUBS MCHC 31.2 L 07/31/16 0726: Anion Gap 13, Estimated GFR 17 L, BUN/Creatinine Ratio 6.6 L, Glucose 99, Calcium 8.2 L, Phosphorus 3.0, Magnesium 1.6, Albumin 2.6 L, PTH Intact 89.5 H 07/31/16 0600: CBC w Diff Cancelled, WBC Cancelled, RBC Cancelled, Hgb Cancelled, Hct Cancelled , MCV Cancelled, MCH Cancelled, RDW Cancelled, Plt Count Cancelled, MPV Cancelled, PUBS MCHC Cancelled Microbiology 07/31 162 BLOOD: Blood Culture - RECD 07/31 1619 BLOOD: Blood Culture - RECD Assessment/Plan Assessment: 75 y/o M with PMHx of antiphospholipid antibody syndrome, diabetes and CKD who presented with SOB, hoarseness and stridor, found to be uremic with initiation of HD, s/p debridement of chronic left leg ulcer, on IV vancomycin for soft tissue infection, currently awaiting outpatient dialysis slot. Fever of unknown origin: fever of 103 yesterday, repeat blood cultures pending, patient started on fluconazole 400mg daily yesterday Recently treated with vancomycin and ceftazidime for possible aspiration pneumonia secondary to gram-negative organisms CT abdomen and chest has not revealed any source of infection. ID following, will follow recs. Anemia : Etiology multifactorial. Currently HDS. Per GI anemia likely secondary to other causes then GI. Will have patient follow-up with GI as an outpatient. We'll continue iron supplementation and Epogen. Chronic left lower extremity ulcer: Has chronic nonhealing ulcers of left leg for which he sees Dr. Pretty as outpatient. S/p excisional debridement through the subcutaneous and muscular tissue with reported seropurulent drainage (06/30) and OR cultures growing diphthteroids and coag-negative Staph. Although these are not typically pathogenic organisms, currently on IV vancomycin for possible soft tissue infection.Wound appears improved, however patient complains of severe pain concerning for ischemia. * ID following * Vancomycin completed * Vascular surgery consulted again. no intervention suggested Antiphospholipid antibody syndrome: chronic right upper extremity DVT. On life- long anti-coagulation with warfarin, takes 5 mg PO QD. * Continue to check INR daily and dose warfarin accordingly to keep INR between 2-3. * INR goal 2-3, to be given 2.5mg coumadin every other day as per INR goals. ESRD: Cr was 5 on admission, with gradual increase from 2-3 within the past year. Most likely etiology is progressive diabetic nephropathy. Mj cath was placed and urgent hemodialysis was initiated (06/26) with improvement of mental status. Patient is currently awaiting outpatient dialysis slot. * Nephrology following * Continue HD MW * No PICC lines should be inserted per Nephrology, as patient will need vein site for placement of graft. * Continue sevelamer 800 mg PO TIDAC. * Continue daily Nephrocaps T2DM: Uncontrolled blood sugars this admission, secondary to steroids. * Endocrinology following * Levemir 4U SQ DAILY * Continue NovoLog SSI TIDAC as suggested HTN: Takes amlodipine 10 mg PO QD, carvedilol 25 mg PO BID, furosemide 80 mg PO BID and hydralazine 50 mg PO BID at home. * Holding home amlodipine, furosemide and hydralazine. * Continue home carvedilol. Crohn's disease: Patient has been taking prednisone 10 mg PO QD for many years to prevent flares. * prednisone taper currently dose 2.5 mg daily. As per recommendations from GI, tapering 2.5mg for one week then 2.5 on every other day for one week then stop. * Aspirin GI, the patient to remain on aspirin, Protonix needed to be added. * C diff negative Diet: Renal Dialysis Diet (regular and nectar thick liquids) DVT PPx: Warfarin and ALPs CODE: FULL Problem List: 1. Anemia 2. Peripheral vascular disease 3. Antiphospholipid antibody syndrome Pain Ratin Pain Location: left leg Pain Goal: Remain pain free Pain Plan: tylenol Tomorrow's Labs & Rationales: inr for coumadin dosing cbc for hemoglobin stability
--- NOTE | 2016-07-31 11:17 | PN- Nephrology ---
Assessment/Plan Assessment: 1. ESRD secondary to diabetic nephropathy 2. Recurrent fevers - now with leukocytosis; candiduria confirmed - now on fluconazole 3. 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 Confusion - slightly better today 5. Diabetes mellitus with peripheral vascular disease status post right TMA, status post debridement left leg/ankle ulcer 6. Anemia - on Epogen and IV iron 7. Antiphospholipid antibody syndrome status post DVT Suggestion: 1. Hemodialysis in progress; to check URR today 2. We will recheck PTH level (was 546 1 month ago) and monitor skin lesions closely Subjective Subjective: Patient seen with dialysis today and seems a little less confused. Afebrile this morning but Tmax 103.0. ID note read and appreciated. Patient now on fluconazole for nicole in his urine. Objective Vital Signs and I&Os Vital Signs Date Time Temp Pulse Resp B/P Pulse O2 O2 Flow FiO2 Ox Delivery Rate 07/31 0829 98.2 102 20 112/64 92 Room Air 07/31 0036 98.9 83 20 110/60 90 Room Air 07/30 2211 130/60 07/300 97.6 07/30 2006 97.3 07/30 1944 102.9 07/30 1840 103.0 07/30 1813 103.0 07/30 1808 115 94 07/30 1605 99.9 57 20 130/60 87 07/30 1300 98.7 07/30 1300 98.7 90 Intake & Output 07/31 1600 07/31 0400 07/30 1600 07/30 0400 07/29 1600 07/29 0400 Intake Total 100 220 360 480 120 500 Output Total 100 Balance 100 220 260 480 120 500 Intake, IV 0 0 Intake, Oral 100 220 360 480 120 500 Number 1 1 0 1 2 3 Bowel Movements Output, Urine 100 Patient 146 lb 150 lb 145 lb Weight Physical Exam: General: Well-developed white male in NAD Skin: No rash or jaundice; mottled areas noted on right lateral leg and medial aspect of left thigh HEENT: Conjunctivae pink, sclerae anicteric, mucous membranes moist Neck: Without masses or thyromegaly, no supraclavicular or cervical adenopathy; there is a right IJ tunneled dialysis catheter in place Chest: Scattered rhonchi anterolaterally Heart: Regular rate and rhythm without S3 or rub Abdomen: Soft and nontender without palpable masses or organomegaly Extremities: Lower extremity dressing intact Neuro: Confused, no focal findings, no asterixis or myoclonus Current Medications: Current Medications Sig/Kailash Start time Last Medication Dose Route Stop Time Status Admin Acetaminophen 650 MG .STK-MED ONE 07/30 181 DC PO 07/30 1819 Acetaminophen 650 MG Q6P PRN 07/22 1700 AC 07/30 PO 1813 Aspirin 81 MG DAILY 07/01 1000 AC 07/30 PO 0923 Atorvastatin Calcium 40 MG 1700 06/30 1700 AC 07/30 PO 1733 Carvedilol 25 MG BID 06/30 2200 AC 07/30 PO 2211 Epoetin Ludwig 3,000 UNIT MoWeFr PRN 07/08 1200 AC IV Epoetin Ludwig 2,000 UNIT MoWeFr PRN 07/08 1200 AC IV Fluconazole 400 MG 1700 07/31 1700 AC PO Fluconazole 400 MG DAILY 07/30 1551 DC 07/30 PO 1748 Guaifenesin 600 MG Q12 07/18 1000 AC 07/30 PO 2210 Insulin Aspart 0 TIDAC/HS 06/30 2100 AC 07/30 SC 1730 Insulin Detemir 5 UNITS QAM 07/30 1000 AC 07/30 SC 0924 Iron Sucrose 100 MG PER PROTOCL PRN 07/01 1430 AC 07/03 Sodium Chloride 100 ML IV 1221 Isosorbide 30 MG DAILY 07/09 1056 AC 07/30 Mononitrate PO 0923 Multivitamins 1 TAB DAILY 07/01 1000 AC 07/30 PO 0923 Nystatin 1 CHAITANYA TID 07/25 1600 AC 07/30 TOP 2211 Omeprazole 40 MG DAILY AC 07/14 0700 AC 07/31 PO 0645 Prednisone 2.5 MG DAILY 07/31 1000 AC PO 08/06 1001 Sevelamer Carbonate 800 MG WITH MEALS 06/30 1200 AC 07/30 PO 1733 Sodium Chloride 2 SPRAY Q10MIN PRN 07/12 0230 AC CARLITOS Sodium Hypochlorite 1 CHAITANYA BID 07/05 1113 AC 07/30 TOP 2210 Tamsulosin HCl 0.4 MG DAILY 07/01 1000 AC 07/30 PO 0923 Vitamin A/Vitamin D 1 CHAITANYA BID 06/30 2200 AC 07/30 TOP 2212 Warfarin Sodium 2.5 MG COUMADIN 1700 ONE 07/30 1700 DC 07/30 PO 07/30 1701 1732 Zinc Oxide 1 CHAITANYA BID 06/30 2200 AC 07/30 TOP 2212 Results Pertinent Lab Results: Laboratory Tests 07/31 07/31 07/30 0800 0726 0620 Chemistry Sodium (137 - 145 mmol/L) 139 Potassium (3.5 - 5.1 mmol/L) 4.2 Chloride (98 - 107 mmol/L) 99 Carbon Dioxide (22 - 30 mmol/L) 26 Anion Gap (5 - 16) 13 BUN (9 - 20 mg/dL) 23 H Creatinine (0.7 - 1.2 mg/dL) 3.5 H Estimated GFR (>60 ml/min) 17 L BUN/Creatinine Ratio (7 - 25 %) 6.6 L Glucose (65 - 99 mg/dL) 99 Calcium (8.4 - 10.2 mg/dL) 8.2 L Phosphorus (2.5 - 4.5 mg/dL) 3.0 Magnesium (1.6 - 2.3 mg/dL) 1.6 Albumin (3.5 - 5.0 g/dL) 2.6 L Coagulation PT (9.4 - 12.5 SEC) 26.4 H 24.5 H INR (0.90 - 1.17) 2.54 H 2.35 H Hematology CBC w Diff MAN DIFF ORDERED WBC (4.8 - 10.8 /CUMM) 18.6 H RBC (4.70 - 6.10 /CUMM) 3.33 L Hgb (14.0 - 18.0 G/DL) 9.1 L Hct (42 - 52 %) 29.2 L MCV (80.0 - 94.0 FL) 87.8 MCH (27.0 - 31.0 PG) 27.4 RDW (11.5 - 14.5 %) 18.6 H Plt Count (130 - 400 /CUMM) 416 H MPV (7.4 - 10.4 FL) 9.0 Gran % (42.2 - 75.2 %) 83.3 H Lymphocytes % (20.5 - 51.1 %) 6.3 L Monocytes % (1.7 - 9.3 %) 9.8 H Eosinophils % (0 - 5 %) 0.5 Basophils % (0.0 - 2.0 %) 0.1 Absolute Granulocytes (1.4 - 6.5 /CUMM) 15.5 H Segmented Neutrophils (42.2 - 75.2 %) 79 H Band Neutrophils (0.0 - 5.0 %) 4 Absolute Lymphocytes (1.2 - 3.4 /CUMM) 1.2 Lymphocytes (20.5 - 51.1 %) 7 L Monocytes (1.7 - 9.3 %) 9 Absolute Monocytes (0.10 - 0.60 /CUMM) 1.8 H Absolute Eosinophils (0.0 - 0.7 /CUMM) 0.1 Absolute Basophils (0.0 - 0.2 /CUMM) 0 Myelocytes (0 - 0 %) 1 H Platelet Estimate (ADEQUATE) ADEQUATE Hypochromic-Microcytic 1+ Poikilocytosis 1+ Anisocytosis 1+ PUBS MCHC (33.0 - 37.0 G/DL) 31.2 L 07/29 07/29 1202 1040 Coagulation PT (9.4 - 12.5 SEC) Cancelled 27.2 H INR (0.90 - 1.17) Cancelled 2.62 H Hematology CBC w Diff NO MAN DIFF REQ WBC (4.8 - 10.8 /CUMM) 11.8 H RBC (4.70 - 6.10 /CUMM) 2.96 L Hgb (14.0 - 18.0 G/DL) 8.3 L Hct (42 - 52 %) 26.1 L MCV (80.0 - 94.0 FL) 88.3 MCH (27.0 - 31.0 PG) 27.9 RDW (11.5 - 14.5 %) 18.7 H Plt Count (130 - 400 /CUMM) 419 H MPV (7.4 - 10.4 FL) 8.7 Gran % (42.2 - 75.2 %) 77.5 H Lymphocytes % (20.5 - 51.1 %) 9.3 L Monocytes % (1.7 - 9.3 %) 12.0 H Eosinophils % (0 - 5 %) 0.9 Basophils % (0.0 - 2.0 %) 0.3 Absolute Granulocytes (1.4 - 6.5 /CUMM) 9.2 H Absolute Lymphocytes (1.2 - 3.4 /CUMM) 1.1 L Absolute Monocytes (0.10 - 0.60 /CUMM) 1.4 H Absolute Eosinophils (0.0 - 0.7 /CUMM) 0.1 Absolute Basophils (0.0 - 0.2 /CUMM) 0 PUBS MCHC (33.0 - 37.0 G/DL) 31.6 L
[2016-07-31 12:30] VITALS: BP 102/50
--- NOTE | 2016-07-31 12:30 | NUR ---
PATIENT BACK TO FLOOR FROM DIALYSIS, REPORT FROM CHEMICAL PUMPER, NO FLUID REMOVED, BP LOW, LAST RECORDED 95/45. VITALS ON RETURN TO FLOOR, 102/50, HR 98, TEMP 101.8 AXILLARY PULSE OX 86% ON RA. PATIENT PLACED ON 3L, MD MADE AWARE, RESP CALLED. AT BEDSIDE NOT CONCERED STATING "EVEN AT THE DOCTORS OFFICE THEY HAVE A HARD TIME GETTING A READING. PATIENT LETHARGIC BUT RESPONDING TO QUESTIONS, THIS IS CONSISTENT WITH AM REPORT FROM OFFGOING RN
--- NOTE | 2016-07-31 13:42 | PN- Infect Dx ---
Subjective Subjective: MAXIMUM TEMPERATURE 103. He does not report any complaints Objective Last 24 Hrs of Vital Signs/I&O Vital Signs Date Time Temp Pulse Resp B/P Pulse O2 O2 Flow FiO2 Ox Delivery Rate 07/31 828 98.2 102 20 112/64 92 Room Air 07/31 0036 98.9 83 20 110/60 90 Room Air 07/30 2211 130/60 07/30 2049 97.6 07/30 2005 97.3 07/30 1944 102.9 07/30 1840 103.0 07/30 1813 103.0 07/30 1808 115 94 07/30 1605 99.9 57 20 130/60 87 Intake & Output 07/31 1600 07/31 0800 07/31 0000 Intake Total 100 220 Output Total Balance 100 220 Intake, Oral 100 220 Number 1 1 Bowel Movements Patient 146 lb Weight Physical Exam Other Physical Findings: He appears comfortable in no acute distress currently on dialysis Chest tunneled dialysis catheter in the right upper chest with no inflammation at the site Lungs scattered crackles bilaterally Heart regular rhythm with no murmur Abdomen is soft, nontender with positive bowel sounds Extremities necrotic lesions on the left thigh and lateral aspect of the right leg, tender to palpation; left leg dressing intact, with necrotic borders around the ulcer worsening Results Last 24 Hours of Lab Results: Laboratory Tests 07/31 07/31 07/31 1120 0800 0726 Chemistry Sodium (137 - 145 mmol/L) 139 Potassium (3.5 - 5.1 mmol/L) 4.2 Chloride (98 - 107 mmol/L) 99 Carbon Dioxide (22 - 30 mmol/L) 26 Anion Gap (5 - 16) 13 BUN (9 - 20 mg/dL) 5 L 23 H Creatinine (0.7 - 1.2 mg/dL) 3.5 H Estimated GFR (>60 ml/min) 17 L BUN/Creatinine Ratio (7 - 25 %) 6.6 L Glucose (65 - 99 mg/dL) 99 Calcium (8.4 - 10.2 mg/dL) 8.2 L Phosphorus (2.5 - 4.5 mg/dL) 3.0 Magnesium (1.6 - 2.3 mg/dL) 1.6 Total Bilirubin (0.2 - 1.3 mg/dL) Pending Direct Bilirubin (< 0.4 mg/dL) Pending AST (17 - 59 U/L) Pending ALT (21 - 72 U/L) Pending Alkaline Phosphatase (< 127 U/L) Pending Total Protein (6.3 - 8.2 g/dL) Pending Albumin (3.5 - 5.0 g/dL) Pending 2.6 L PTH Intact (13.8 - 85 pg/ml) 89.5 H Coagulation PT Cancelled INR Cancelled Hematology CBC w Diff MAN DIFF ORDERED WBC (4.8 - 10.8 /CUMM) 18.6 H RBC (4.70 - 6.10 /CUMM) 3.33 L Hgb (14.0 - 18.0 G/DL) 9.1 L Hct (42 - 52 %) 29.2 L MCV (80.0 - 94.0 FL) 87.8 MCH (27.0 - 31.0 PG) 27.4 RDW (11.5 - 14.5 %) 18.6 H Plt Count (130 - 400 /CUMM) 416 H MPV (7.4 - 10.4 FL) 9.0 Gran % (42.2 - 75.2 %) 83.3 H Lymphocytes % (20.5 - 51.1 %) 6.3 L Monocytes % (1.7 - 9.3 %) 9.8 H Eosinophils % (0 - 5 %) 0.5 Basophils % (0.0 - 2.0 %) 0.1 Absolute Granulocytes (1.4 - 6.5 /CUMM) 15.5 H Segmented Neutrophils (42.2 - 75.2 %) 79 H Band Neutrophils (0.0 - 5.0 %) 4 Absolute Lymphocytes (1.2 - 3.4 /CUMM) 1.2 Lymphocytes (20.5 - 51.1 %) 7 L Monocytes (1.7 - 9.3 %) 9 Absolute Monocytes (0.10 - 0.60 /CUMM) 1.8 H Absolute Eosinophils (0.0 - 0.7 /CUMM) 0.1 Absolute Basophils (0.0 - 0.2 /CUMM) 0 Myelocytes (0 - 0 %) 1 H Platelet Estimate (ADEQUATE) ADEQUATE Hypochromic-Microcytic 1+ Poikilocytosis 1+ Anisocytosis 1+ PUBS MCHC (33.0 - 37.0 G/DL) 31.2 L 07/31 0600 Hematology CBC w Diff Cancelled WBC Cancelled RBC Cancelled Hgb Cancelled Hct Cancelled MCV Cancelled MCH Cancelled RDW Cancelled Plt Count Cancelled MPV Cancelled PUBS MCHC Cancelled Last 24 Hours of [place] Results: Blood cultures July 30 negative Urine culture July 30 negative Recent Imaging Studies: Chest x-ray July 30, personally reviewed, reveals no significant change with minimal densities bilaterally Assessment/Plan Impression: Increasing fevers and leukocytosis possibly secondary to candiduria, identified on several urine cultures, now on Fluconazole Day 1. Other possible sources of sepsis include pneumonia, though his respiratory status remains stable, line sepsis, though his blood cultures are so far negative, and his necrotic left calf wound, with increasing necrosis noted. His new necrotic skin lesions raise concern for a process such as calciphylaxis, which could also explain the fevers. Suggestion: 1. Further evaluation of his new skin lesions per Medicine/Nephrology 2. Continue Fluconazole 400 mg po after every dialysis
[2016-07-31 14:00] VITALS: BP 80/40
--- NOTE | 2016-07-31 14:00 | NUR ---
PATIENT BP AND PULSE RECHECKED AFTER SEEN BY MD AND RESP THERAPIST, PULSE OX INCREASED TO 92% ON 5LNC. EKG DONE AND TROPONIN DRAWN PER MD IVANA AT BEDSIDE TO REVIEW EKG AND ASSESS PATIENT. CURRENT BP 82/40. 250 BOLUS ORDERED AT THIS TIME. TEMP RECHECKED, 101.9, PO GIVEN ORDERED WILL CONTINUE TO MONITOR.
--- NOTE | 2016-07-31 14:45 | NUR ---
PATIENT WITH RECTAL TEMP 102.8, BP 80/40, HR 102. BOLUS INFUSING, IV TYLENOL ORDERED AND INFUSING, NURSE MATERNAL FETAL PHYSICIAN AT BEDSIDE, ATTENDING MD AROLE AT BEDSIDE.
--- NOTE | 2016-07-31 14:49 | RADIOLOGY REPORT ---
EXAMINATION: XR PORTABLE CHEST CLINICAL INFORMATION: Fever unknown origin. COMPARISON: Chest x-ray 07/23/[address] scan of the chest 07/24/2016. TECHNIQUE: A 70 degree semiupright portable AP view of the chest was obtained. FINDINGS: There has been no interval change in the dialysis catheter with the tip at the cavoatrial junction. There is an area of opacity peripherally in the right midzone, consistent with consolidation which was demonstrated on prior imaging. The opacification at the left base is not well appreciated on the current study. There is thickening of the bronchial wu, consistent with bronchitis. There are no pleural effusions. The cardiac silhouette is normal. There are no acute osseous findings. There are degenerative changes at the right shoulder. IMPRESSION: 1. There is persistent consolidation in the right midzone laterally. The other consolidation seen on prior imaging is not appreciated on the current study. 2. There is thickening of the bronchial wu consistent with bronchitis.
[2016-07-31 15:00] VITALS: BP 64/36
--- NOTE | 2016-07-31 15:00 | PN- Att Addend ---
See Addendum Attending Addendum Attending Brief Note No issues overnight reported by nursing staff. However this morning again he was lethargic. Nursing staff reports he did poorly with breakfast. He underwent hemodialysis today. This afternoon he complained of chest pain. Later on he was found more obtunded and hypotensive with blood pressure in the 80 systolic. He is mildly tachycardic. He has also been febrile today. General appearance: Obtunded HEENT: Anicteric, mild pallor Heart: S1-S2 tachycardic Lungs: Diminished entry bilaterally with no added sounds Abdomen: Soft, nontender with normal bowel sounds Extremities: No peripheral edema. He has a slowly healing necrotic wound on the left leg. The developing area of necrosis on the dorsum of the left foot has not progressed. He also has a necrotic area on the lateral aspect of the right leg just below the mean. This is unchanged from the weekend. He grew Vanita in the urine last week. Treatment was initially held as he was asymptomatic. Due to persistent fever he was started on fluconazole yesterday. Repeat cultures yesterday are so far negative. Laboratory Tests 07/31/16 1415: Troponin I Pending 07/31/16 1120: Total Bilirubin 0.4, Direct Bilirubin 0.4, AST 22, ALT 35, Alkaline Phosphatase 132 H, Total Protein 5.8 L, Albumin 2.3 L 07/31/16 0800: PT Cancelled, INR Cancelled, CBC w Diff MAN DIFF ORDERED, RBC 3.33 L, MCV 87.8, MCH 27.4, RDW 18.6 H, MPV 9.0, Gran % 83.3 H, Lymphocytes % 6.3 L, Monocytes % 9.8 H, Eosinophils % 0.5, Basophils % 0.1, Absolute Granulocytes 15.5 H, Segmented Neutrophils 79 H, Band Neutrophils 4, Absolute Lymphocytes 1.2, Lymphocytes 7 L, Monocytes 9, Absolute Monocytes 1.8 H, Absolute Eosinophils 0.1, Absolute Basophils 0, Myelocytes 1 H, Platelet Estimate ADEQUATE, Hypochromic-Microcytic 1+, Poikilocytosis 1+, Anisocytosis 1+, PUBS MCHC 31.2 L 07/31/16 0726: Anion Gap 13, Estimated GFR 17 L, BUN/Creatinine Ratio 6.6 L, Glucose 99, Calcium 8.2 L, Phosphorus 3.0, Magnesium 1.6, Albumin 2.6 L, PTH Intact 89.5 H 07/31/16 0600: CBC w Diff Cancelled, WBC Cancelled, RBC Cancelled, Hgb Cancelled, Hct Cancelled , MCV Cancelled, MCH Cancelled, RDW Cancelled, Plt Count Cancelled, MPV Cancelled, PUBS MCHC Cancelled Problems: 1. Septic shock 2. Recurrent fever 3. Chest pain 4. Metabolic encephalopathy 5. End-stage renal disease on hemodialysis. 6. 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 Antiphospholipid syndrome status post deep vein thrombosis on anticoagulation with Coumadin. 8. Fungiura Plan: -Provide 250 mL normal saline boluses to systolic blood pressure is in the 100s. -If no improvement after 1 L bolus, transfer to the ICU for further management. -Continue antifungal therapy as recommended by the ID service. Follow-up regarding need for antibiotic coverage given his current hypotension. -Follow-up cardiac enzymes. Obtain cardiology consult -Please follow-up with the vascular surgery service for biopsy of these leg wounds to rule out calciphylaxis. -Follow-up with the nephrology service whether patient should receive empiric therapy for calciphylaxis. -Continue Coumadin every other day with close monitoring of his INR. follow-up to these values. -Continue prednisone taper.
--- NOTE | 2016-07-31 15:15 | NUR ---
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 ADDITIONAL BOLUS ORDERED AND INITIATED, PATIENT PLACED IN TREND. PT CALLED BY RESIDENT WITH UPDATE IN POC AND TRANSFER. LACTIC ACID DRAWN, BLOOD CULTURES ORDERED.
--- NOTE | 2016-07-31 15:21 | NUR ---
PHYSICAL THERAPY. PHYSICAL THERAPY TREATMENT WAS CANCELLED PER NURSING SECONDARY TO HYPOTENSION AND FEVER. PT WILL FOLLOW UP APPROPRIATE.
[2016-07-31 16:00] VITALS: BP 70/0
--- NOTE | 2016-07-31 16:30 | NUR ---
PT RECIEVED FROM 2N DUE TO INCREASE RESP REQUIREMENTS AND HYPOTENSION. PT WAS FEBRILE AND LETHARGIC UPON ARRIVAL W BP IN 60'S. TYLENOL IV, NS BOLUS AND LEVOPHED STARTED. DR JACKSON DISCUSSED GOAL OF CARE WITH FAMILY AND FAMILY DECIDED TO CHANGE CODE STATUS TO DNR/DNI, DC LEVOPHED AND NO ESCALATION OF CARE.
--- NOTE | 2016-07-31 16:31 | NUR ---
PHYSICAL THERAPY. Pt JUST TRANSFERED TO ICU. Pt TO BE PLACED ON HOLD W/ PT PER PROTOCOL. PLEASE RE-CONSULT APPROPRIATE.
--- NOTE | 2016-07-31 16:41 | Event Note ---
Event Note Event Note: Goals of care were discussed with by Dr. Lucero and Dr. Del Cid. does not want aggressive measures. CODE STATUS was changed from full code to DNR/ DNI. No central line and pressors for him. If he gets worse or decompensates will go for comfort care per wishes.
--- NOTE | 2016-07-31 16:44 | PN- CRCU ---
Subjective HPI/Critical Care Issues: Recalled to see patient after ICU upgrade for hypotension. BP 60's, peripheral levophed started. arrived and conversation had regarding goals of care. She wishes not to escalate therapy at this point and not to pursue any aggressive measures. Patient seen and examined. Lethargic, responsive to yankauer suctioning. ROS unobtainable. Objective Current Medications: Current Medications Sig/Kailash Start time Last Medication Dose Route Stop Time Status Admin Acetaminophen 1,000 MG ONCE ONE 07/31 1515 DC N/A 1 UNIT IV 07/31 1529 Acetaminophen 650 MG .STK-MED ONE 07/30 1818 DC PO 07/30 1819 Acetaminophen 650 MG Q6P PRN 07/22 1700 AC 07/31 PO 1415 Aspirin 81 MG DAILY 07/01 1000 AC 07/31 PO 1447 Atorvastatin Calcium 40 MG 1700 06/30 1700 AC 07/30 PO 1733 Carvedilol 25 MG BID 06/30 2200 AC 07/30 PO 2211 Ceftazidime 1,000 MG Q24 07/31 1530 UNVr IV Epoetin Ludwig 3,000 UNIT MoWeFr PRN 07/08 1200 AC IV Epoetin Ludwig 2,000 UNIT MoWeFr PRN 07/08 1200 AC IV Fluconazole 400 MG 1700 07/31 1700 AC PO Fluconazole 400 MG DAILY 07/30 1551 DC 07/30 PO 1748 Guaifenesin 600 MG Q12 07/18 1000 AC 07/31 PO 1449 Insulin Aspart 0 TIDAC/HS 06/30 2100 AC 07/30 SC 1730 Insulin Detemir 5 UNITS QAM 07/30 1000 AC 07/31 SC 1446 Iron Sucrose 100 MG PER PROTOCL PRN 07/01 1430 AC 07/03 Sodium Chloride 100 ML IV 1221 Isosorbide 30 MG DAILY 07/09 1056 AC 07/30 Mononitrate PO 0923 Multivitamins 1 TAB DAILY 07/01 1000 AC 07/31 PO 1447 Norepinephrine 4 MG Q24H 07/31 1600 UNVr Sodium Chloride 250 ML IV Nystatin 1 CHAITANYA TID 07/25 1600 AC 07/31 TOP 1230 Omeprazole 40 MG DAILY AC 07/14 0700 AC 07/31 PO 0645 Prednisone 2.5 MG DAILY 07/31 1000 AC 07/31 PO 08/06 1001 1448 Sevelamer Carbonate 800 MG WITH MEALS 06/30 1200 AC 07/31 PO 1447 Sodium Chloride 2 SPRAY Q10MIN PRN 07/12 0230 AC CARLITOS Sodium Hypochlorite 1 CHAITANYA BID 07/05 1113 AC 07/31 TOP 1229 Tamsulosin HCl 0.4 MG DAILY 07/01 1000 AC 07/30 PO 0923 Vancomycin HCl 1,000 MG DAILY 07/31 1524 UNir Sodium Chloride 250 ML IV Vitamin A/Vitamin D 1 CHAITANYA BID 06/30 2200 AC 07/31 TOP 1230 Warfarin Sodium 2.5 MG COUMADIN 1700 ONE 07/31 1700 AC PO 07/31 1701 Warfarin Sodium 2.5 MG COUMADIN 1700 ONE 07/30 1700 DC 07/30 PO 07/30 1701 1732 Zinc Oxide 1 CHAITANYA BID 06/30 2200 AC 07/31 TOP 1229 Vital Signs & I&O Last 24 Hrs of Vitals and I&O: Vital Signs Date Time Temp Pulse Resp B/P Pulse O2 O2 Flow FiO2 Ox Delivery Rate 07/31 1448 102 100/60 07/31 1448 102 100/60 07/31 1448 102 100/60 07/31 1415 101.7 07/31 0829 98.2 102 20 112/64 92 Room Air 07/31 0036 98.9 83 20 110/60 90 Room Air 07/30 2211 130/60 07/30 2050 97.6 07/30 2006 97.3 07/30 1944 102.9 07/30 1840 103.0 07/30 1813 103.0 07/30 1808 115 94 Intake & Output 07/31 1600 07/31 0800 07/31 0000 Intake Total 100 220 Output Total Balance 100 220 Intake, Oral 100 220 Number 1 1 Bowel Movements Patient 146 lb Weight Exam Other Physical Findings: gen lethargic, arousable to painful stimuli heent ncat, gurgling cvs s1, s2 lungs scattered rhonchi abd soft, not distended ext with bandages, wounds noted Results Last 24 Hrs of Lab Results: Laboratory Tests 07/31/16 1529: Lactic Acid Pending 07/31/16 1415: Troponin I 0.05 07/31/16 1120: Total Bilirubin 0.4, Direct Bilirubin 0.4, AST 22, ALT 35, Alkaline Phosphatase 132 H, Total Protein 5.8 L, Albumin 2.3 L 07/31/16 0800: PT Cancelled, INR Cancelled, CBC w Diff MAN DIFF ORDERED, RBC 3.33 L, MCV 87.8, MCH 27.4, RDW 18.6 H, MPV 9.0, Gran % 83.3 H, Lymphocytes % 6.3 L, Monocytes % 9.8 H, Eosinophils % 0.5, Basophils % 0.1, Absolute Granulocytes 15.5 H, Segmented Neutrophils 79 H, Band Neutrophils 4, Absolute Lymphocytes 1.2, Lymphocytes 7 L, Monocytes 9, Absolute Monocytes 1.8 H, Absolute Eosinophils 0.1, Absolute Basophils 0, Myelocytes 1 H, Platelet Estimate ADEQUATE, Hypochromic-Microcytic 1+, Poikilocytosis 1+, Anisocytosis 1+, PUBS MCHC 31.2 L 07/31/16 0726: Anion Gap 13, Estimated GFR 17 L, BUN/Creatinine Ratio 6.6 L, Glucose 99, Calcium 8.2 L, Phosphorus 3.0, Magnesium 1.6, Albumin 2.6 L, PTH Intact 89.5 H 07/31/16 0600: CBC w Diff Cancelled, WBC Cancelled, RBC Cancelled, Hgb Cancelled, Hct Cancelled , MCV Cancelled, MCH Cancelled, RDW Cancelled, Plt Count Cancelled, MPV Cancelled, PUBS MCHC Cancelled Impression/Plan Impression/Plan Impression/Plan: Impression 75 year old man * Shock - possibly septic, ?aspiration, wound care * Fevers * AMS * ESRD on HD * leg ulcerations * antiphospholipid syndrome * fungal urinary infection Plan Respiratory -keep spo2 >92% -DNI ID -ID consultation appreciated -broad coverage for now including fluconazole -f/u all cx CVS -monitor hemodynamics -no vasopressors or central access Heme -monitor INR -on coumadin, can be held in light of acute illness Metabolic -HD to be held given hypotension -nephrology follow up Alimentary -NPO -aspiration precautions Neuro -AMS likely from hypotension/shock Family discussion held DNR/DNI, no vasopressors, no aggressive measures, no escalation in care, if worsens will pursue comfort measures and possibly hospice. TTS 50 min Code Status: Full Code
--- NOTE | 2016-07-31 18:00 | Cons- Cardiology ---
General Information and HPI Consulting Request Date of Consult: 07/31/16 Requested By: HARRY MORRIS M.D History of Present Illness: This patient is a 75 year old male with history of ESRD on hemodialysis, hypertension, diabetes and peripheral vascular disease. He also carries a history of antiphospholipid antibody syndrome and is s/p a prior DVT. This patient has been in the hospital for about 5 weeks. Today, the patient was noted to be hypotensive with a systolic BP in the 70's to 80's. He is non- communicative at this time but earlier in the day the patient complained of chest discomfort. The patient is currently on fluconazole for a possible nicole infection although pneumonia could not be excluded. This patient was mentally lucid at his baseline a few weeks ago and was able to ambulate slowly with a walker. Patient was initially admitted to [facility] in May 2016 for fever, altered mental status and supratherapeutic INR. He was treated with antibiotics for a poorly healing left lower extremity ulcer and cellulitis. His troponins were elevated with no EKG changes at that time. Cardiac workup included a stress test that was negative for ischemia and and echocardiogram showing a normal EF. Allergies/Medications Allergies: Coded Allergies: Sulfa (Sulfonamide Antibiotics) (Mild, HIVES 06/15/16) Home Med List: Amlodipine Besylate 10 MG TABLET 1 TAB PO DAILY BP (Reported) Calcitriol (Rocaltrol) 0.25 MCG CAPSULE 1 CAP PO DAILY KIDNEYS (Reported) Calcium Carbonate/Vitamin D3 (Os-Vishal 500+D3 Caplet) 500 MG-600 TABLET 1 TAB PO TID SUPPLEMENT (Reported) Carvedilol 25 MG TABLET 1 TAB PO BID HEART (Reported) Citric Acid/Sodium Citrate (Cytra-2 Oral Solution) 473 ML SOLUTION 15 ML PO BID KIDNEYS (Reported) Cyanocobalamin (Vitamin B-12) 1,000 MCG TABLET 1 TAB PO DAILY SUPPLEMENT ( Reported) Ferrous Sulfate 325 MG (65 MG IRON) TABLET 1 TAB PO TID SUPPLEMENT (Reported) Furosemide 80 MG TABLET 1 TAB PO BID LEG SWELLING (Reported) Hydralazine HCl 50 MG TABLET 1 TAB PO BID HEART (Reported) Insulin Aspart (Novolog) 100 UNIT/ML VIAL DM (Reported) Insulin Detemir (Levemir) 100 UNIT/ML VIAL 13 UNITS SC DAILY QAM DM Multivit-Min/FA/Lycopen/Lutein (Centrum Silver Tablet) 1 EACH TABLET 1 TAB PO DAILY SUPPLEMENT (Reported) Oxycodone HCl/Acetaminophen (Percocet 5-325 MG Tablet) 5 MG-325 MG TABLET 1 TAB PO BID PRN PAIN Prednisone 10 MG TABLET 1 TAB PO DAILY KIDNEYS (Reported) Prednisone 2.5 MG TABLET 1 TAB PO SI CHRONS DISEASE TAKE 2 TABS DAILY FOR SEVEN DAYS TAKE 1 TAB DAILY FOR SEVEN DAYS TAKE 1 TAB EVERY OTHER DAY FOR ONE WEEK AND THEN STOP. Sevelamer Carbonate (Renvela) 800 MG TABLET 1 TAB PO TIDWM KIDNEYS (Reported) Sodium Bicarbonate 325 MG TABLET 1 TAB PO BID KIDNEYS (Reported) Tramadol HCl 50 MG TABLET 1 TAB PO BIDP PRN PAIN (Reported) Vitamin B Complex (B Complex) 1 EACH TABLET 1 TAB PO DAILY SUPPLEMENT ( Reported) Warfarin Sodium (Coumadin) 5 MG TABLET 1 TAB PO DAILY BLOOD THINNER (Reported ) DOSE ACCORDING TO INR Past History Travel History Traveled to [place] past 21 day No Medical History Blood Transfusion Hx: Yes Neurological: NONE EENT: NONE Cardiovascular: PVD, DVT Respiratory: pneumonia Gastrointestinal: Crohn's disease Hepatic: NONE Renal: nephrolithiasis, CKD Musculoskeletal: VASCULAR OCCLUSION RIGHT LEG RIGHT PATELLA FRACTURE WITH orif NON HEALING WOUNDS R. 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 Home Who Do You Live With? spouse Services at Home: None Primary Language: Slovak Smoking Status: Former Smoker ETOH Use: denies use Illicit Drug Use: denies illicit drug use Functional Ability ADLs Independent: dressing, eating, toileting, bathing. Ambulation: walker IADLs Needs Assist: shopping, housework, finances, food prep, telephone, transportation, medication admin. ECHO Results (as available) Date of last Echo 12/11/15 EF% 65 Report: Normal left ventricular systolic function with mild mitral regurgitation. Exam & Diagnostic Data Vital Signs and I&O Vital Signs Date Time Temp Pulse Resp B/P Pulse O2 O2 Flow FiO2 Ox Delivery Rate 07/31 1600 70/00 07/31 1515 102.8 07/31 1500 102.8 64/36 07/31 1448 102 100/60 07/31 1448 102 100/60 07/31 1448 102 100/60 07/31 1415 101.7 07/31 1400 80/40 07/31 1230 92 Nasal 3.0L Cannula 07/31 1230 101.8 100 20 102/50 86 Room Air 07/31 0829 98.2 102 20 112/64 92 Room Air 07/31 0036 98.9 83 20 110/60 90 Room Air 07/30 2211 130/60 07/30 2050 97.6 07/30 2006 97.3 07/30 1944 102.9 07/30 1840 103.0 07/30 1813 103.0 07/30 1808 115 94 Intake & Output 07/31 1600 07/31 0800 07/31 0000 07/30 1600 07/30 0800 07/30 0000 Intake Total 100 220 360 480 Output Total 100 Balance 100 220 260 480 Intake, IV 0 Intake, Oral 100 220 360 480 Number 1 1 0 1 Bowel Movements Output, Urine 100 Patient 142 lb 146 lb 150 lb Weight Physical Exam: General: WD/ WN male; decreased responsiveness to verbal stimuli HEENT: NC/ AT; PERRL, EOMI, clear oropharynx Neck: no JVD, no carotid bruit Heart: RRR w/o murmur Lungs: clear anteriorly bilaterally Abdomen: soft, NT, +ve bowel sounds with multiple scars Extremities: no edema, s/p right transmetatarsal amputation Diagnostic Data EKG Results sinus rhythm with RBBB Assessment/Plan Assessment/Plan * This patient appears to be septic with hypertension, increased WBC count, fever and hypotension. His source of infection is not clear although line sepsis , wound infection, pneumonia and candidiasis are all being considered. The patient's family is not inclined to be aggressive at this time and they have made him a DNR. They do not want pressors. As such, this patient will need NS as required to maintain a systolic BP of at least 85mmHg. If the family agrees to pressors it would be reasonable to begin levophed. Antibiotic therapy will also be needed to treat the underlying infection as recommended by Dr. Harden. * This patient was tachycardic in the setting of his sepsis. I suspect this increased myocardial demand was the cause of his chest discomfort rather than an acute coronary syndrome characterized by a ruptured intracoronary plaque. Unfortunately, with his hypotension he will not be able to tolerate his usual antianginals. Hold Isosorbide and Coreg for now due to hypotension. Consult Acknowledgment - Thank you for your consult request.
--- NOTE | 2016-07-31 18:19 | NUR ---
PT LETHARGY CONTINUED. PT CAN NOT TAKE PO. DINNER AND PO MEDS HELD. BP CONTINUES TO BE 60-70'S ON NS BOLUSES. FAMILY AT THE BEDSIDE AND UPDATED FREQUENTLY. BLOOD CULTURES AND LABS SENTS.
[2016-08-01] VITALS: BP 92/00
--- NOTE | 2016-08-01 03:30 | NUR ---
PT BP HAS BEEN GREATER THAN 120/70 FOR 1 HR. PT ON 4L NC, LUNGS DIMINISHED AND RHONCOROUS. NOTIFIED IVFS DISCONTINUED. WILL CONTINUE TO MONITOR IF BP LOWER THAT 100/DOP CALL
[2016-08-01 05:25] LABS: PT 41.6 SEC (9.4-12.5)
[2016-08-01 08:00] VITALS: BP 90/60
--- NOTE | 2016-08-01 08:05 | PN- Diabetes ---
Assessment/Plan Assessment: The patient was moved to the intensive care unit because of hypotension. Sepsis was suspected. He has received normal saline with some improvement in his blood pressure. This patient has been on exogenous steroids in the form of prednisone which can suppress the pituitary adrenal axis. His prednisone dose was reduced to 2-1/2 mg daily which is less than a replacement dose a few days ago. Adrenal crisis needs to be suspected. The patient has also developed low blood sugar this morning. Plan: Suggest add a cortisol level to this morning blood. The patient should immediately receive Solu-Cortef 100 mg IV bolus stat . Thereafter we should continue hydrocortisone 50 mg IV every 8 hours. With regard to his insulin therapy the patient needs to have some glucose in the IV so that we do not give unopposed insulin. A portion of IV fluids should be D5 half-normal saline at 50 mL per hour. For now I would discontinue the Levemir. I would place him on NovoLog sliding scale every 4 hours with a blood sugar above 150. NovoLog sliding scale every 4 hours should be less than 150 give no insulin, 151-200 give 3 units NovoLog, 201 -250 give 4 units NovoLog, 251-300 give 5 units NovoLog, 301-350 give 6 units NovoLog, 351 of 400 give 7 units NovoLog. Subjective Subjective: Cannot answer questions Objective Last 24 Hrs of Vital Signs/I&O Vital Signs Date Time Temp Pulse Resp B/P Pulse O2 O2 Flow FiO2 Ox Delivery Rate 08/01 0400 91 Nasal 4.0L Cannula 08/01 0000 95 Nasal 4.0L Cannula 08/01 0000 95.5 64 24 92/00 95 Nasal 4.0L Cannula 07/31 2000 99 Nasal 5.0L Cannula 07/31 1700 100.3 07/31 1600 102.0 07/31 1600 70/00 07/31 1600 102.0 100 19 70/0 100 Nasal 5.0L Cannula 07/31 1600 99 Nasal 5.0L Cannula 07/31 1515 102.8 /04 1500 102.8 64/36 07/31 1448 102 100/60 07/31 1448 102 100/60 07/31 1448 102 100/60 07/31 1415 101.7 /04 1400 80/40 07/31 1230 92 Nasal 3.0L Cannula 07/31 1230 101.8 100 20 102/50 86 Room Air 07/31 0829 98.2 102 20 112/64 92 Room Air Intake & Output 08/01 1600 08/01 0800 08/01 0000 Intake Total 225 4500 Output Total 0 0 Balance 225 4500 Intake, IV 225 4500 Intake, Oral 0 Number 1 0 Bowel Movements Output, Urine 0 0 Vital Signs Date Time Temp Pulse Resp B/P Pulse O2 O2 Flow FiO2 Ox Delivery Rate 08/01 0400 91 Nasal 4.0L Cannula 08/01 0000 95 Nasal 4.0L Cannula 08/01 0000 95.5 64 24 92/00 95 Nasal 4.0L Cannula 07/31 2000 99 Nasal 5.0L Cannula 07/31 1700 100.3 07/31 1600 102.0 07/31 1600 70/00 07/31 1600 102.0 100 19 70/0 100 Nasal 5.0L Cannula 07/31 1600 99 Nasal 5.0L Cannula 07/31 1515 102.8 07/31 1500 102.8 64/36 07/31 1448 102 100/60 07/31 1448 102 100/60 07/31 1448 102 100/60 07/31 1415 101.7 07/31 1400 80/40 07/31 1230 92 Nasal 3.0L Cannula 07/31 1230 101.8 100 20 102/50 86 Room Air 07/31 0829 98.2 102 20 112/64 92 Room Air Intake & Output 08/01 1600 08/01 0800 08/01 0000 Intake Total 225 4500 Output Total 0 0 Balance 225 4500 Intake, IV 225 4500 Intake, Oral 0 Number 1 0 Bowel Movements Output, Urine 0 0 Physical Exam General Appearance: well developed/nourished, awake, confused Head: normal appearance Respiratory: normal breath sounds Cardiovascular: regular rate/rhythm Abdomen: normal bowel sounds Current Medications: Current Medications Sig/Kailash Start time Last Medication Dose Route Stop Time Status Admin Acetaminophen 1,000 MG ONCE ONE 07/31 1515 DC 07/31 N/A 1 UNIT IV 07/31 1529 1600 Acetaminophen 650 MG .STK-MED ONE 07/31 1404 DC PO 07/31 1405 Acetaminophen 650 MG Q6P PRN 07/22 1700 AC 07/31 PO 1415 Aspirin 81 MG DAILY 07/01 1000 AC 07/31 PO 1447 Atorvastatin Calcium 40 MG 1700 06/30 1700 AC 07/30 PO 1733 Carvedilol 25 MG BID 06/30 2200 DC 07/30 PO 2211 Ceftazidime 1,000 MG Q24 07/31 1930 AC 07/31 IV 2108 Dextrose 25 GM ONCE ONE 08/01 0800 DC 08/01 IV 08/01 0801 0753 Epoetin Ludwig 3,000 UNIT MoWeFr PRN 07/08 1200 AC IV Epoetin Ludwig 2,000 UNIT MoWeFr PRN 07/08 1200 AC IV Fluconazole 400 MG 1700 07/31 1700 AC PO Fluconazole 400 MG DAILY 07/30 1551 DC 07/30 PO 1748 Guaifenesin 600 MG Q12 07/18 1000 AC 07/31 PO 1449 Insulin Aspart 0 TIDAC/HS 06/30 2100 AC 07/30 SC 1730 Insulin Detemir 5 UNITS QAM 07/30 1000 AC 07/31 SC 1446 Iron Sucrose 100 MG PER PROTOCL PRN 07/01 1430 AC 07/03 Sodium Chloride 100 ML IV 1221 Isosorbide 30 MG DAILY 07/09 1056 DC 07/30 Mononitrate PO 0923 Multivitamins 1 TAB DAILY 07/01 1000 AC 07/31 PO 1447 Norepinephrine 4 MG Q24H 07/31 1600 DC 07/31 Sodium Chloride 250 ML IV 1600 Norepinephrine 4 MG .STK-MED ONE 07/31 1555 DC IV 07/31 1556 Nystatin 1 CHAITANYA TID 07/25 1600 AC 07/31 TOP 2132 Omeprazole 40 MG DAILY AC 07/14 0700 AC 07/31 PO 0645 Prednisone 2.5 MG DAILY 07/31 1000 AC PO 08/06 1001 Sevelamer Carbonate 800 MG WITH MEALS 06/30 1200 AC 07/30 PO 1733 Sodium Chloride 1,000 ML Q13H 07/31 2345 DC 08/01 IV 08/01 1244 0019 Sodium Chloride 1,000 ML BOLUS ONE 07/31 1999 DC 07/31 IV 07/31 2058 2000 Sodium Chloride 1,000 ML BOLUS ONE 07/31 1999 DC 07/31 IV 07/31 205 210 Sodium Chloride 1,000 ML BOLUS ONE 07/31 1845 DC 07/31 IV 07/31 1944 1830 Sodium Chloride 500 ML .Q30M ONE 07/31 1800 DC 07/31 IV 07/31 1829 1606 Sodium Chloride 500 ML BOLUS ONE 07/31 1800 DC 07/31 IV 07/31 1829 1646 Sodium Chloride 500 ML BOLUS ONE 07/31 1800 DC 07/31 IV 07/31 1829 1745 Sodium Chloride 2 SPRAY Q10MIN PRN 07/12 0230 AC CARLITOS Sodium Hypochlorite 1 CHAITANYA BID 07/05 1113 AC 07/31 TOP 2107 Tamsulosin HCl 0.4 MG DAILY 07/01 1000 AC 07/30 PO 0923 Vancomycin HCl 1,000 MG DAILY 07/31 1524 DC 07/31 Sodium Chloride 250 ML IV 07/31 1623 2107 Vitamin A/Vitamin D 1 CHAITANYA BID 06/30 2200 AC 07/31 TOP 2111 Warfarin Sodium 2.5 MG COUMADIN 1700 ONE 07/31 1700 DC PO 07/31 1701 Zinc Oxide 1 CHAITANYA BID 06/30 2200 AC 07/31 TOP 2107 Findings Pertinent Lab/[place] Results: Laboratory Tests 08/01 07/31 07/31 07/31 07/31 0416 2130 1620 1529 1415 Chemistry Lactic Acid (0.7 - 2.1 mmol/L) 1.9 2.2 H Troponin I (<0.11 ng/ml) 0.05 0.05 Cortisol AM Sample (4.46 - 22.7 ug/dL) Pending Coagulation PT (9.4 - 12.5 SEC) 41.6 H INR (0.90 - 1.17) 4.02 *H 07/31 1120 Chemistry BUN (9 - 20 mg/dL) 5 L Total Bilirubin (0.2 - 1.3 mg/dL) 0.4 Direct Bilirubin (< 0.4 mg/dL) 0.4 AST (17 - 59 U/L) 22 ALT (21 - 72 U/L) 35 Alkaline Phosphatase (< 127 U/L) 132 H Total Protein (6.3 - 8.2 g/dL) 5.8 L Albumin (3.5 - 5.0 g/dL) 2.3 L
[2016-08-01 09:01] LABS: ABSOLUTE BASOPHIL COUNT 0.1 /CUMM (0.0-0.2); ABSOLUTE EOSINOPHIL COUNT 0.1 /CUMM (0.0-0.7); ABSOLUTE GRANULOCYTE CT 19.4 /CUMM (1.4-6.5); ABSOLUTE LYMPH COUNT 0.5 /CUMM (1.2-3.4); ABSOLUTE MONOCYTE COUNT 1.1 /CUMM (0.10-0.60); BASOPHIL % 0.7 % (0.0-2.0); EOSINOPHIL % 0.7 % (0-5); GRANULOCYTE % 90.8 % (42.2-75.2); HEMATOCRIT 30.1 % (42-52); MEAN CORPUSCULAR HGB 27.8 PG (27.0-31.0); MEAN CORPUSCULAR HGB CONC 31.5 G/DL (33.0-37.0); MEAN CORPUSCULAR VOLUME 88.4 FL (80.0-94.0); MEAN PLATELET VOLUME 8.9 FL (7.4-10.4); PLATELET COUNT 297 /CUMM (130-400); WHITE BLOOD CELL COUNT 21.4 /CUMM (4.8-10.8)
--- NOTE | 2016-08-01 10:13 | PN- CRCU ---
Subjective HPI/Critical Care Issues: pt seen and examined improved mental status bp stabilized dnr/dni no pain, no cp, no dyspnea at rest no n/v/d/c Objective Current Medications: Current Medications Sig/Kailash Start time Last Medication Dose Route Stop Time Status Admin Acetaminophen 1,000 MG ONCE ONE 07/31 1515 DC 07/31 N/A 1 UNIT IV 07/31 1529 1600 Acetaminophen 650 MG .STK-MED ONE 07/31 1404 DC PO 07/31 1405 Acetaminophen 650 MG Q6P PRN 07/22 1700 AC 07/31 PO 1415 Aspirin 81 MG DAILY 07/01 1000 AC 08/01 PO 0948 Atorvastatin Calcium 40 MG 1700 06/30 1700 AC 07/30 PO 1733 Carvedilol 25 MG BID 06/30 2200 DC 07/30 PO 2211 Ceftazidime 1,000 MG Q24 07/31 1930 AC 08/01 IV 0935 Dextrose 25 GM .STK-MED ONE 08/01 1008 DC IV 08/01 1009 Dextrose 25 GM ONCE ONE 08/01 0800 DC 08/01 IV 08/01 0801 0753 Dextrose/Sodium 1,000 ML Q20H 08/01 0830 AC 08/01 Chloride IV 0948 Epoetin Ludwig 3,000 UNIT MoWeFr PRN 07/08 1200 AC IV Epoetin Ludwig 2,000 UNIT MoWeFr PRN 07/08 1200 AC IV Fluconazole 400 MG 1700 08/02 1700 AC PO Fluconazole 400 MG DAILY 08/01 1000 DC PO 08/01 1001 Fluconazole 400 MG 1700 07/31 1700 DC PO Guaifenesin 600 MG Q12 07/18 1000 AC 07/31 PO 1449 Hydrocortisone 50 MG Q8 08/01 1400 AC Sodium Succinate IV Hydrocortisone 100 MG ONE ONE 08/01 0830 DC 08/01 Sodium Succinate IV 08/01 0831 0933 Insulin Aspart 0 Q4 08/01 1000 AC SC Insulin Aspart 0 TIDAC/HS 06/30 2100 DC 07/30 SC 1730 Insulin Detemir 5 UNITS QAM 07/30 1000 AC 08/01 SC 0941 Iron Sucrose 100 MG PER PROTOCL PRN 07/01 1430 AC 07/03 Sodium Chloride 100 ML IV 1221 Isosorbide 30 MG DAILY 07/09 1056 DC 07/30 Mononitrate PO 0923 Multivitamins 1 TAB DAILY 07/01 1000 AC 07/31 PO 1447 Norepinephrine 4 MG Q24H 07/31 1600 DC 07/31 Sodium Chloride 250 ML IV 1600 Norepinephrine 4 MG .STK-MED ONE 07/31 1555 DC IV 07/31 1556 Nystatin 1 CHAITANYA TID 07/25 1600 AC 08/01 TOP 0934 Omeprazole 40 MG DAILY AC 07/14 0700 AC 07/31 PO 0645 Prednisone 2.5 MG DAILY 07/31 1000 AC PO 08/06 1001 Sevelamer Carbonate 800 MG WITH MEALS 06/30 1200 AC 07/30 PO 1733 Sodium Chloride 1,000 ML Q13H 07/31 2345 DC 08/01 IV 08/01 1244 0019 Sodium Chloride 1,000 ML BOLUS ONE 07/31 1999 DC 07/31 IV 07/31 2059 2000 Sodium Chloride 1,000 ML BOLUS ONE 07/31 2000 DC 07/31 IV 07/31 2059 2102 Sodium Chloride 1,000 ML BOLUS ONE 07/31 1845 DC 07/31 IV 07/31 1944 1830 Sodium Chloride 500 ML .Q30M ONE 07/31 1800 DC 07/31 IV 07/31 1829 1606 Sodium Chloride 500 ML BOLUS ONE 07/31 1800 DC 07/31 IV 07/31 1829 1646 Sodium Chloride 500 ML BOLUS ONE 07/31 1800 DC 07/31 IV 07/31 1829 1745 Sodium Chloride 2 SPRAY Q10MIN PRN 07/12 0230 AC CARLITOS Sodium Hypochlorite 1 CHAITANYA BID 07/05 1113 AC 08/01 TOP 0934 Tamsulosin HCl 0.4 MG DAILY 07/01 1000 AC 07/30 PO 0923 Vancomycin HCl 1,000 MG DAILY 07/31 1524 DC 07/31 Sodium Chloride 250 ML IV 07/31 1623 2107 Vitamin A/Vitamin D 1 CHAITANYA BID 06/30 220 AC 08/01 TOP 0934 Warfarin Sodium 2.5 MG COUMADIN 1700 ONE 07/31 1700 DC PO 07/31 1701 Zinc Oxide 1 CHAITANYA BID 06/30 220 AC 08/01 TOP 0934 Vital Signs & I&O Last 24 Hrs of Vitals and I&O: Vital Signs Date Time Temp Pulse Resp B/P Pulse O2 O2 Flow FiO2 Ox Delivery Rate 08/01 08 94 Nasal 4.0L Cannula 08/01 799 96.6 98 22 90/60 94 Nasal 4.0L Cannula 08/01 0400 91 Nasal 4.0L Cannula 08/01 0000 95 Nasal 4.0L Cannula 08/01 0000 95.5 64 24 92/00 95 Nasal 4.0L Cannula 07/31 1999 99 Nasal 5.0L Cannula 07/31 1700 100.3 07/31 1600 102.0 07/31 1600 70/00 07/31 1600 102.0 100 19 70/0 100 Nasal 5.0L Cannula 07/31 1600 99 Nasal 5.0L Cannula 07/31 1515 102.8 07/31 1500 102.8 64/36 07/31 1448 102 100/60 07/31 1448 102 100/60 07/31 1448 102 100/60 07/31 1415 101.7 07/31 1400 80/40 07/31 1230 92 Nasal 3.0L Cannula 07/31 1230 101.8 100 20 102/50 86 Room Air Intake & Output 08/01 1600 08/01 0800 08/01 0000 Intake Total 225 4500 Output Total 0 0 Balance 225 4500 Intake, IV 225 4500 Intake, Oral 0 Number 1 0 Bowel Movements Output, Urine 0 0 Exam Other Physical Findings: gen lethargic, more arousable heent ncat cvs s1, s2 lungs scattered rhonchi abd soft, not distended ext with bandages, wounds noted Results Last 24 Hrs of Lab Results: Laboratory Tests 08/01/16 0850: Anion Gap 14, Estimated GFR 31 L, Glucose 80, Calcium 7.8 L, Phosphorus 3.3, Magnesium 1.5 L, Total Bilirubin 0.4, AST 26, ALT 34, Albumin 2.0 L, Cortisol AM Sample 19.4, CBC w Diff MAN DIFF ORDERED, RBC 3.40 L, MCV 88.4, MCH 27.8, RDW 19.0 H, MPV 8.9, Gran % 90.8 H, Lymphocytes % 2.5 L, Monocytes % 5.3, Eosinophils % 0.7, Basophils % 0.7, Absolute Granulocytes 19.4 H, Segmented Neutrophils 82 H, Band Neutrophils 11 H, Absolute Lymphocytes 0.5 L, Lymphocytes 4 L, Monocytes 3, Absolute Monocytes 1.1 H, Absolute Eosinophils 0.1, Absolute Basophils 0.1, Platelet Estimate ADEQUATE, Polychromasia 1+, Hypochromic-Microcytic 2+, Poikilocytosis 2+, Anisocytosis 2+, PUBS MCHC 31.5 L 08/01/16 0416: PT 41.6 H, INR 4.02 *H 07/31/16 2130: Troponin I 0.05, Cortisol AM Sample 12.1 07/31/16 1620: Lactic Acid 1.9 07/31/16 1529: Lactic Acid 2.2 H 07/31/16 1415: Troponin I 0.05 07/31/16 1120: Total Bilirubin 0.4, Direct Bilirubin 0.4, AST 22, ALT 35, Alkaline Phosphatase 132 H, Total Protein 5.8 L, Albumin 2.3 L Impression/Plan Impression/Plan Impression/Plan: Impression 75 year old man * Shock - possibly septic, ?aspiration, wound care * Fevers * AMS * ESRD on HD * leg ulcerations * antiphospholipid syndrome * fungal urinary infection Plan Respiratory -keep spo2 >92% -DNI ID -ID consultation appreciated -broad coverage for now including fluconazole -f/u all cx CVS -monitor hemodynamics -no vasopressors or central access Heme -monitor INR -on coumadin, can be held in light of acute illness Metabolic -HD to be held given hypotension -nephrology follow up Alimentary -NPO -aspiration precautions Neuro -AMS likely from hypotension/shock Family discussion held DNR/DNI, no vasopressors, no aggressive measures, no escalation in care, if worsens will pursue comfort measures and possibly hospice. TTS 40 min Pt has suture next to tunneled catheter please remove Code Status: Full Code
--- NOTE | 2016-08-01 10:52 | PN- Nephrology ---
Assessment/Plan Assessment: 1. ESRD secondary to diabetic nephropathy 2. Recurrent fevers - now with septic syndrome 3. Skin lesions as noted - vasculitis unlikely but should be considered 4. Confusion - unchanged 5. Diabetes mellitus with peripheral vascular disease status post right TMA, status post debridement left leg/ankle ulcer 6. Anemia - on Epogen and IV iron 7. Antiphospholipid antibody syndrome status post DVT Suggestion: 1. I have spoken with patient's who agrees to a skin biopsy which may provide useful information if vasculitis is found; discussed with Dr. Del Cid 2. Hemodialysis tentatively scheduled for tomorrow Subjective Subjective: Recent events noted. He required a significant amount of fluid administration for blood pressure support. Patient remains minimally responsive and confused when awakened. CODE STATUS has been changed to DNR/DNI. Skin lesions are unchanged. PTH level unremarkable at 89. Objective Vital Signs and I&Os Vital Signs Date Time Temp Pulse Resp B/P Pulse O2 O2 Flow FiO2 Ox Delivery Rate 08/01 1028 90/58 08/01 0800 94 Nasal 4.0L Cannula 08/01 0800 96.6 98 22 90/60 94 Nasal 4.0L Cannula 08/01 0400 91 Nasal 4.0L Cannula 08/01 0000 95 Nasal 4.0L Cannula 08/01 0000 95.5 64 24 92/00 95 Nasal 4.0L Cannula 07/31 2000 99 Nasal 5.0L Cannula 07/31 1700 100.3 /04 1600 102.0 / 1600 70/00 07/31 1600 102.0 100 19 70/0 100 Nasal 5.0L Cannula 07/31 1600 99 Nasal 5.0L Cannula 07/31 1515 102.8 04 1500 102.8 64/36 07/31 1448 102 100/60 04 1448 102 100/60 / 1448 102 100/60 /04 1415 101.7 /04 1400 80/40 07/31 1230 92 Nasal 3.0L Cannula 07/31 1230 101.8 100 20 102/50 86 Room Air Intake & Output 08/01 1600 08/01 0400 07/31 1600 07/31 0400 07/30 1600 07/30 0400 Intake Total 225 4500 100 220 360 480 Output Total 0 0 100 Balance 225 4500 100 220 260 480 Intake, IV 225 4500 0 Intake, Oral 0 100 220 360 480 Number 1 0 1 1 0 1 Bowel Movements Output, Urine 0 0 100 Patient 142 lb 150 lb Weight Physical Exam: General: Well-developed white male in NAD Skin: No rash or jaundice; mottled areas noted on right lateral leg and medial aspect of left thigh -these appear to be unchanged HEENT: Conjunctivae pale, sclerae anicteric, mucous membranes moist Neck: Without masses or thyromegaly, no supraclavicular or cervical adenopathy; there is a right IJ tunneled dialysis catheter in place Chest: Scattered rhonchi anterolaterally Heart: Regular rate and rhythm without S3 or rub Abdomen: Soft and nontender without palpable masses or organomegaly Extremities: Lower extremity dressing intact Neuro: Lethargic, confused, no focal findings, no asterixis or myoclonus Results Pertinent Lab Results: Laboratory Tests 08/01 08/01 07/31 07/31 0850 0416 2130 1620 Chemistry Sodium (137 - 145 mmol/L) 142 Potassium (3.5 - 5.1 mmol/L) 3.6 Chloride (98 - 107 mmol/L) 105 Carbon Dioxide (22 - 30 mmol/L) 23 Anion Gap (5 - 16) 14 BUN (9 - 20 mg/dL) 15 Creatinine (0.7 - 1.2 mg/dL) 2.1 H Estimated GFR (>60 ml/min) 31 L Glucose (65 - 99 mg/dL) 80 Lactic Acid (0.7 - 2.1 mmol/L) 1.9 Calcium (8.4 - 10.2 mg/dL) 7.8 L Phosphorus (2.5 - 4.5 mg/dL) 3.3 Magnesium (1.6 - 2.3 mg/dL) 1.5 L Total Bilirubin (0.2 - 1.3 mg/dL) 0.4 AST (17 - 59 U/L) 26 ALT (21 - 72 U/L) 34 Troponin I (<0.11 ng/ml) 0.05 Albumin (3.5 - 5.0 g/dL) 2.0 L Cortisol AM Sample (4.46 - 22.7 ug/dL) 19.4 12.1 Coagulation PT (9.4 - 12.5 SEC) 41.6 H INR (0.90 - 1.17) 4.02 *H Hematology CBC w Diff MAN DIFF ORDERED WBC (4.8 - 10.8 /CUMM) 21.4 H RBC (4.70 - 6.10 /CUMM) 3.40 L Hgb (14.0 - 18.0 G/DL) 9.5 L Hct (42 - 52 %) 30.1 L MCV (80.0 - 94.0 FL) 88.4 MCH (27.0 - 31.0 PG) 27.8 RDW (11.5 - 14.5 %) 19.0 H Plt Count (130 - 400 /CUMM) 297 MPV (7.4 - 10.4 FL) 8.9 Gran % (42.2 - 75.2 %) 90.8 H Lymphocytes % (20.5 - 51.1 %) 2.5 L Monocytes % (1.7 - 9.3 %) 5.3 Eosinophils % (0 - 5 %) 0.7 Basophils % (0.0 - 2.0 %) 0.7 Absolute Granulocytes (1.4 - 6.5 /CUMM) 19.4 H Segmented Neutrophils (42.2 - 75.2 %) 82 H Band Neutrophils (0.0 - 5.0 %) 11 H Absolute Lymphocytes (1.2 - 3.4 /CUMM) 0.5 L Lymphocytes (20.5 - 51.1 %) 4 L Monocytes (1.7 - 9.3 %) 3 Absolute Monocytes (0.10 - 0.60 /CUMM) 1.1 H Absolute Eosinophils (0.0 - 0.7 /CUMM) 0.1 Absolute Basophils (0.0 - 0.2 /CUMM) 0.1 Platelet Estimate (ADEQUATE) ADEQUATE Polychromasia 1+ Hypochromic-Microcytic 2+ Poikilocytosis 2+ Anisocytosis 2+ PUBS MCHC (33.0 - 37.0 G/DL) 31.5 L 07/31 07/31 07/31 07/31 1529 1415 1120 0800 Chemistry BUN (9 - 20 mg/dL) 5 L Lactic Acid (0.7 - 2.1 mmol/L) 2.2 H Total Bilirubin (0.2 - 1.3 mg/dL) 0.4 Direct Bilirubin (< 0.4 mg/dL) 0.4 AST (17 - 59 U/L) 22 ALT (21 - 72 U/L) 35 Alkaline Phosphatase (< 127 U/L) 132 H Troponin I (<0.11 ng/ml) 0.05 Total Protein (6.3 - 8.2 g/dL) 5.8 L Albumin (3.5 - 5.0 g/dL) 2.3 L Coagulation PT Cancelled INR Cancelled Hematology CBC w Diff MAN DIFF ORDERED WBC (4.8 - 10.8 /CUMM) 18.6 H RBC (4.70 - 6.10 /CUMM) 3.33 L Hgb (14.0 - 18.0 G/DL) 9.1 L Hct (42 - 52 %) 29.2 L MCV (80.0 - 94.0 FL) 87.8 MCH (27.0 - 31.0 PG) 27.4 RDW (11.5 - 14.5 %) 18.6 H Plt Count (130 - 400 /CUMM) 416 H MPV (7.4 - 10.4 FL) 9.0 Gran % (42.2 - 75.2 %) 83.3 H Lymphocytes % (20.5 - 51.1 %) 6.3 L Monocytes % (1.7 - 9.3 %) 9.8 H Eosinophils % (0 - 5 %) 0.5 Basophils % (0.0 - 2.0 %) 0.1 Absolute Granulocytes (1.4 - 6.5 /CUMM) 15.5 H Segmented Neutrophils (42.2 - 75.2 %) 79 H Band Neutrophils (0.0 - 5.0 %) 4 Absolute Lymphocytes (1.2 - 3.4 /CUMM) 1.2 Lymphocytes (20.5 - 51.1 %) 7 L Monocytes (1.7 - 9.3 %) 9 Absolute Monocytes (0.10 - 0.60 /CUMM) 1.8 H Absolute Eosinophils (0.0 - 0.7 /CUMM) 0.1 Absolute Basophils (0.0 - 0.2 /CUMM) 0 Myelocytes (0 - 0 %) 1 H Platelet Estimate (ADEQUATE) ADEQUATE Hypochromic-Microcytic 1+ Poikilocytosis 1+ Anisocytosis 1+ PUBS MCHC (33.0 - 37.0 G/DL) 31.2 L 07/31 07/31 07/30 07/29 0726 0600 0620 1202 Chemistry Sodium (137 - 145 mmol/L) 139 Cancelled Potassium (3.5 - 5.1 mmol/L) 4.2 Cancelled Chloride (98 - 107 mmol/L) 99 Cancelled Carbon Dioxide (22 - 30 mmol/L) 26 Cancelled Anion Gap (5 - 16) 13 Cancelled BUN (9 - 20 mg/dL) 23 H Cancelled Creatinine (0.7 - 1.2 mg/dL) 3.5 H Cancelled Estimated GFR (>60 ml/min) 17 L BUN/Creatinine Ratio (7 - 25 %) 6.6 L Cancelled Glucose (65 - 99 mg/dL) 99 Calcium (8.4 - 10.2 mg/dL) 8.2 L Phosphorus (2.5 - 4.5 mg/dL) 3.0 Magnesium (1.6 - 2.3 mg/dL) 1.6 Albumin (3.5 - 5.0 g/dL) 2.6 L PTH Intact (13.8 - 85 pg/ml) 89.5 H Coagulation PT (9.4 - 12.5 SEC) 24.5 H Cancelled INR (0.90 - 1.17) 2.35 H Cancelled Hematology CBC w Diff Cancelled WBC Cancelled RBC Cancelled Hgb Cancelled Hct Cancelled MCV Cancelled MCH Cancelled RDW Cancelled Plt Count Cancelled MPV Cancelled PUBS MCHC Cancelled
--- NOTE | 2016-08-01 11:00 | PN- Infect Dx ---
Subjective Subjective: MAXIMUM TEMPERATURE 102.8 on steroids. Recent events noted with hypotension yesterday afternoon prompting transfer to the ICU, with 5 L of fluid given overnight, with an increase in his blood pressure. He has been started on Solu- Cortef this morning. He is unable to provide any reliable history secondary to his lethargy. Objective Last 24 Hrs of Vital Signs/I&O Vital Signs Date Time Temp Pulse Resp B/P Pulse O2 O2 Flow FiO2 Ox Delivery Rate 08/01 1028 90/58 08/01 08 94 Nasal 4.0L Cannula 08/01 08 96.6 98 22 90/60 94 Nasal 4.0L Cannula 08/01 0400 91 Nasal 4.0L Cannula 08/01 0000 95 Nasal 4.0L Cannula 08/01 0000 95.5 64 24 00 95 Nasal 4.0L Cannula 07/31 2000 99 Nasal 5.0L Cannula 07/31 1700 100.3 07/31 1600 102.0 07/31 1600 70/00 07/31 1600 102.0 100 19 70/0 100 Nasal 5.0L Cannula 07/31 1600 99 Nasal 5.0L Cannula 07/31 1515 102.8 07/31 1500 102.8 64/36 07/31 1448 102 100/60 07/31 1448 102 100/60 07/31 1448 102 100/60 07/31 1415 101.7 07/31 1400 80/40 07/31 1230 92 Nasal 3.0L Cannula 07/31 1230 101.8 100 20 102/50 86 Room Air Intake & Output 08/01 1600 08/01 0800 08/01 0000 Intake Total 225 4500 Output Total 0 0 Balance 225 4500 Intake, IV 225 4500 Intake, Oral 0 Number 1 0 Bowel Movements Output, Urine 0 0 Physical Exam Other Physical Findings: He remains quite lethargic and appears confused Chest tunneled dialysis catheter in the right upper chest with no inflammation at the site Lungs scattered rhonchi bilaterally Heart regular rhythm with no murmur Abdomen is soft, no obvious tenderness, positive bowel sounds Extremities necrotic lesions on both lower extremities unchanged Results Last 24 Hours of Lab Results: Laboratory Tests 08/01 08/01 07/31 07/31 0850 0416 2130 1620 Chemistry Sodium (137 - 145 mmol/L) 142 Potassium (3.5 - 5.1 mmol/L) 3.6 Chloride (98 - 107 mmol/L) 105 Carbon Dioxide (22 - 30 mmol/L) 23 Anion Gap (5 - 16) 14 BUN (9 - 20 mg/dL) 15 Creatinine (0.7 - 1.2 mg/dL) 2.1 H Estimated GFR (>60 ml/min) 31 L Glucose (65 - 99 mg/dL) 80 Lactic Acid (0.7 - 2.1 mmol/L) 1.9 Calcium (8.4 - 10.2 mg/dL) 7.8 L Phosphorus (2.5 - 4.5 mg/dL) 3.3 Magnesium (1.6 - 2.3 mg/dL) 1.5 L Total Bilirubin (0.2 - 1.3 mg/dL) 0.4 AST (17 - 59 U/L) 26 ALT (21 - 72 U/L) 34 Troponin I (<0.11 ng/ml) 0.05 Albumin (3.5 - 5.0 g/dL) 2.0 L Cortisol AM Sample (4.46 - 22.7 ug/dL) 19.4 12.1 Coagulation PT (9.4 - 12.5 SEC) 41.6 H INR (0.90 - 1.17) 4.02 *H Hematology CBC w Diff MAN DIFF ORDERED WBC (4.8 - 10.8 /CUMM) 21.4 H RBC (4.70 - 6.10 /CUMM) 3.40 L Hgb (14.0 - 18.0 G/DL) 9.5 L Hct (42 - 52 %) 30.1 L MCV (80.0 - 94.0 FL) 88.4 MCH (27.0 - 31.0 PG) 27.8 RDW (11.5 - 14.5 %) 19.0 H Plt Count (130 - 400 /CUMM) 297 MPV (7.4 - 10.4 FL) 8.9 Gran % (42.2 - 75.2 %) 90.8 H Lymphocytes % (20.5 - 51.1 %) 2.5 L Monocytes % (1.7 - 9.3 %) 5.3 Eosinophils % (0 - 5 %) 0.7 Basophils % (0.0 - 2.0 %) 0.7 Absolute Granulocytes (1.4 - 6.5 /CUMM) 19.4 H Segmented Neutrophils (42.2 - 75.2 %) 82 H Band Neutrophils (0.0 - 5.0 %) 11 H Absolute Lymphocytes (1.2 - 3.4 /CUMM) 0.5 L Lymphocytes (20.5 - 51.1 %) 4 L Monocytes (1.7 - 9.3 %) 3 Absolute Monocytes (0.10 - 0.60 /CUMM) 1.1 H Absolute Eosinophils (0.0 - 0.7 /CUMM) 0.1 Absolute Basophils (0.0 - 0.2 /CUMM) 0.1 Platelet Estimate (ADEQUATE) ADEQUATE Polychromasia 1+ Hypochromic-Microcytic 2+ Poikilocytosis 2+ Anisocytosis 2+ PUBS MCHC (33.0 - 37.0 G/DL) 31.5 L 07/31 07/31 07/31 1529 1415 1120 Chemistry BUN (9 - 20 mg/dL) 5 L Lactic Acid (0.7 - 2.1 mmol/L) 2.2 H Total Bilirubin (0.2 - 1.3 mg/dL) 0.4 Direct Bilirubin (< 0.4 mg/dL) 0.4 AST (17 - 59 U/L) 22 ALT (21 - 72 U/L) 35 Alkaline Phosphatase (< 127 U/L) 132 H Troponin I (<0.11 ng/ml) 0.05 Total Protein (6.3 - 8.2 g/dL) 5.8 L Albumin (3.5 - 5.0 g/dL) 2.3 L Last 24 Hours of [place] Results: Blood cultures July 30 negative Blood cultures July 31 negative Urine culture July 30 approximately 10,000 colonies of yeast Assessment/Plan Impression: Deterioration in his status with hypotension and increased fevers and leukocytosis, suggesting sepsis, though source remains unclear, with blood cultures remaining negative and with no clear evidence for pneumonia on his recent chest x-ray. The possibility of relative addisonism has been considered, as he was on long-term steroids, which have been tapered recently, and this could explain his hypotension and fever, but not necessarily his leukocytosis. He was covered empirically with Vancomycin and Ceftazidime yesterday pending recent cultures. The Fluconazole, which was begun on the previous day for candiduria was, unfortunately, not given yesterday, and this should be continued , though his recent urine culture only grew 10,000 colonies, suggestive of contamination or colonization. His new necrotic skin lesions raise concern for a process such as calciphylaxis, though his PTH level is only mildly elevated. Suggestion: 1. Further evaluation of his new skin lesions per Medicine/Nephrology 2. Re-dose with Fluconazole 400 mg po (or IV if unable to take po) and continue 400 mg po (or IV) after every dialysis 3. Continue Ceftazidime 1 g IV every 24 hours 4. Obtain Vancomycin level with dialysis in the a.m. and re-dose after dialysis per protocol
--- NOTE | 2016-08-01 11:54 | PN- Cardiology ---
Subjective Subjective: Patient is mostly unresponsive. Yesterday BP low responded to fluids. DNR with ok to comfort care. Objective Vital Signs and I&Os Vital Signs Date Time Temp Pulse Resp B/P Pulse O2 O2 Flow FiO2 Ox Delivery Rate 08/01 1028 90/58 08/01 08 94 Nasal 4.0L Cannula 08/01 08 96.6 98 22 90/60 94 Nasal 4.0L Cannula 08/01 0400 91 Nasal 4.0L Cannula 08/01 0000 95 Nasal 4.0L Cannula 08/01 0000 95.5 64 24 92/00 95 Nasal 4.0L Cannula 07/31 2000 99 Nasal 5.0L Cannula 07/31 1700 100.3 07/31 1600 102.0 07/31 1600 70/00 07/31 1600 102.0 100 19 70/0 100 Nasal 5.0L Cannula 07/31 1600 99 Nasal 5.0L Cannula 07/31 1515 102.8 07/31 1500 102.8 64/36 07/31 1448 102 100/60 07/31 1448 102 100/60 07/31 1448 102 100/60 07/31 1415 101.7 07/31 1400 80/40 07/31 1230 92 Nasal 3.0L Cannula 07/31 1230 101.8 100 20 102/50 86 Room Air Intake & Output 08/01 1600 08/01 0808/01 0000 07/31 1600 07/31 0800 07/31 0000 Intake Total 225 4500 100 220 Output Total 0 0 Balance 225 4500 100 220 Intake, IV 225 4500 Intake, Oral 0 100 220 Number 1 0 1 1 Bowel Movements Output, Urine 0 0 Patient 142 lb 146 lb Weight Physical Exam: Head N/C A/T Eyes scera Anicteric. Conjuctiva pallor Neck No bruits. No JVD Chest Lungs clear Heart rate normal Grade 1/6 systolic murmur Abd soft non temndwer Extremities Amputee right fore foot. Assessment/Plan Assessment/Plan In summary this 75-year-old gentleman has the following problems #1 antiphospholipid antibody syndrome with previous DVT. He is on warfarin #2 end-stage renal disease on hemodialysis #3 chronic left lower extremity ulcer #4 positive troponin felt to be related to renal insuff #5 Hypotension related to sepsis From a cardiac standpoint he appears stable. Hypotension related to sepsis. Poor prognosis. Should be comfort care. Continue telemetry? No
[2016-08-01 16:00] VITALS: BP 112/58
--- NOTE | 2016-08-01 16:52 | PN- Resident CRCU ---
Subjective HPI/CRCU Issues: Patient seen and examined. He is seen lying flat in bed resting comfortably. Today he is awake and responsive to questioning. At his bedside are two family members whom are up to day about his clinical condition and anticipated goals of care. Presently patient does not answer questions verbally but shakes his head indicating no when asked if he is in any pain or if he has any complaints. Review of systems is unobtainable. No overnight events reported, other than when patient was transfered to the ICU in the late afternoon for evaluation and care of hypotension requiring 5.5L of normal saline intravenous fluid resuscitation. Objective Vital Signs & I&O Last 8 Hrs of Vitals and I&O: Intake & Output 08/01 1600 Intake Total 450 Output Total Balance 450 Intake, IV 400 Intake, Oral 50 Number 0 Bowel Movements Exam General Appearance: awake, lethargic, mild distress Other Physical Findings: General - thin/elderly male, tired appearing, in no acute distress HEENT - NCAT, PERRL, anicteric sclear, moist mucous membranes CVS/Chest - S1, S2 w/o m/g/r, dialysis catheter in place in right chest wall Resp - Decreased breath sounds in all four lung neal, no crackles GI - soft, nontender, nondistended, bowel sounds present Neuro - Awake but somnolent/lethargic and current non-verbal, spontanous movement of all four limbs Ext: pulses intact in bilateral lower extremities -LLE: multiple wounds with distal lower extremity wrapped in dry surgical dressing -RLE: amputation of all digits/distal aspect of foot Current Medications: Current Medications Sig/Kailash Start time Last Medication Dose Route Stop Time Status Admin Acetaminophen 650 MG Q6P PRN 07/22 1700 AC 07/31 PO 1415 Aspirin 81 MG DAILY 07/01 1000 AC 08/01 PO 0948 Atorvastatin Calcium 40 MG 1700 06/30 1700 AC 07/30 PO 1733 Ceftazidime 1,000 MG Q24 07/31 1930 AC 08/01 IV 0935 Dextrose 25 GM ONCE ONE 08/01 1430 DC 08/01 IV 08/01 1431 1400 Dextrose 25 GM .STK-MED ONE 08/01 1008 DC IV 08/01 1009 Dextrose 25 GM ONCE ONE 08/01 0800 DC 08/01 IV 08/01 0801 0753 Dextrose/Sodium 1,000 ML Q20H 08/01 0830 AC 08/01 Chloride IV 0948 Epoetin Ludwig 3,000 UNIT MoWeFr PRN 07/08 1200 AC IV Epoetin Ludwig 2,000 UNIT MoWeFr PRN 07/08 1200 AC IV Fluconazole 400 MG 1700 08/02 1700 CAN PO Fluconazole 400 MG 1700 08/02 1700 AC Sodium Chloride 200 ML IV 08/02 1859 Fluconazole 400 MG DAILY 08/01 1000 DC 08/01 PO 08/01 1001 1027 Fluconazole 400 MG 1700 07/31 1700 DC PO Guaifenesin 600 MG Q12 07/18 1000 AC 07/31 PO 1449 Hydrocortisone 50 MG Q8 08/01 1400 AC 08/01 Sodium Succinate IV 1508 Hydrocortisone 100 MG ONE ONE 08/01 0830 DC 08/01 Sodium Succinate IV 08/01 0831 0933 Insulin Aspart 0 Q4 08/01 1000 AC SC Insulin Aspart 0 TIDAC/HS 06/30 2100 DC 07/30 SC 1730 Insulin Detemir 5 UNITS QAM 07/30 1000 DC 08/01 SC 0941 Iron Sucrose 100 MG PER PROTOCL PRN 07/01 1430 AC 07/03 Sodium Chloride 100 ML IV 1221 Morphine Sulfate 2 MG ONCE ONE 08/01 1845 DC 08/01 IV 08/01 1846 1850 Multivitamins 1 TAB DAILY 07/01 1000 AC 07/31 PO 1447 Nystatin 1 CHAITANYA TID 07/25 1600 AC 08/01 TOP 1509 Omeprazole 40 MG DAILY AC 07/14 0700 AC 07/31 PO 0645 Prednisone 2.5 MG DAILY 07/31 1000 AC 08/01 PO 08/06 1001 1027 Sevelamer Carbonate 800 MG WITH MEALS 06/30 1200 AC 08/01 PO 1026 Sodium Chloride 1,000 ML Q13H 07/31 2345 DC 08/01 IV 08/01 1244 0019 Sodium Chloride 1,000 ML BOLUS ONE 07/31 1999 DC 07/31 IV 07/31 2058 2000 Sodium Chloride 1,000 ML BOLUS ONE 07/31 1999 DC 07/31 IV 07/31 2059 2102 Sodium Chloride 1,000 ML BOLUS ONE 07/31 1845 DC 07/31 IV 07/31 1944 1830 Sodium Chloride 2 SPRAY Q10MIN PRN 07/12 0230 AC CARLITOS Sodium Hypochlorite 1 CHAITANYA BID 07/05 1113 AC 08/01 TOP 0934 Tamsulosin HCl 0.4 MG DAILY 07/01 1000 AC 07/30 PO 0923 Vitamin A/Vitamin D 1 CHAITANYA BID 06/30 2200 AC 08/01 TOP 0934 Zinc Oxide 1 CHAITANYA BID 06/30 2200 AC 08/01 TOP 0934 Impression/Plan Impression/Problem List Impression: Patient was transferred to the ICU last night for stabilization after being found hypotensive. A discussion of goals of care occured with his family members and it was decided to convert the patient from Full Code to DNR/DNI with explicit instruction to not use any central lines, pressors, or to readmit to the intensive care unit. Patient was seen by endocrinology whom recommended obtaining AM cortisol levels and to dose patient with stress dose levels of steroids will follow up interval doses. Problem List: -ESRD on HD -Chronic LLE ulcer -Diabetes Mellitus -APLS Cardiovascular: Patient with multiple medical problems transfered to the ICU for hemodynamic stabilization requiring multiple liters of fluid resuscitation. - Patient now DNR/DNI, no central line, no pressors, do not readmit to ICU - Telemetry cardiac monitoring - Bolus patient as needed to maintain systolic blood pressure > 90 Renal: History of end stage renal disease maintained on hemodialysis every Friday/ Friday/Friday. - Mj Cath in place - Monitor for fluid over load - Nephrology consult following Rheumatology: Patient with a history of Crohns maintained on daily steroids for prevention of flares. -Prednisone taper Infectious Diseaese: Fever of unknown origin, patient started on vancomycin, ceftazidime, and fluconazole. These medications are to be administered after dialysis. - Continue antibiotics - Infectious disease consult following - Daily CBC to assess for infection Endocrine: Patient with a history of type type diabetes mellitus. 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 Multiple non healing ulcers. Pain Plan: Diet - NPO, patient failed swallow eval, D51/2NS DVT PPx - mechanical Code status - DNR/DNI, no central line, no pressors, do not readmit to ICU Problem List: 1. CKD (chronic kidney disease) Pain Ratin Tomorrow's Labs & Rationales: CBC ICU bundle Plan DVT/Prophylaxis: mechanical, pharmacological Code Status: Full Code
[2016-08-02] VITALS: BP 112/60
[2016-08-02 05:48] LABS: ABSOLUTE BASOPHIL COUNT 0 /CUMM (0.0-0.2); ABSOLUTE EOSINOPHIL COUNT 0 /CUMM (0.0-0.7); ABSOLUTE GRANULOCYTE CT 27.4 /CUMM (1.4-6.5); ABSOLUTE LYMPH COUNT 0.4 /CUMM (1.2-3.4); ABSOLUTE MONOCYTE COUNT 0.5 /CUMM (0.10-0.60); BASOPHIL % 0 % (0.0-2.0); EOSINOPHIL % 0 % (0-5); GRANULOCYTE % 96.5 % (42.2-75.2); HEMATOCRIT 26.8 % (42-52); MEAN CORPUSCULAR HGB 27.8 PG (27.0-31.0); MEAN CORPUSCULAR HGB CONC 31.7 G/DL (33.0-37.0); MEAN CORPUSCULAR VOLUME 87.8 FL (80.0-94.0); MEAN PLATELET VOLUME 8.6 FL (7.4-10.4); PLATELET COUNT 390 /CUMM (130-400); RBC DISTRIBUTION WIDTH 18.8 % (11.5-14.5); RED BLOOD CELL CT 3.06 /CUMM (4.70-6.10); WHITE BLOOD CELL COUNT 28.4 /CUMM (4.8-10.8)
--- NOTE | 2016-08-02 07:30 | PN- Diabetes ---
Assessment/Plan Assessment: The patient was moved to the intensive care unit because of hypotension. Sepsis was suspected. He has received normal saline with some improvement in his blood pressure. Yesterday morning the patient was placed on stress dose steroids with further improvement in his blood pressure. Prior to receiving the steroids the patient' s cortisol level was 19.4 at a time when he was hypotensive. Therefore it would seem that he had relative adrenal insufficiency. The patient's condition has been downgraded to general medicine and the family does not wish aggressive treatment at this time. The patient is on thickened liquids. He is also on D5 half-normal saline at 50 mL per hour. Because his main source of calories at this time is the IV fluid he remains on NovoLog coverage every 4 hours. The patient's blood sugars 171 this morning. Plan: Suggest continue D5 half-normal saline at 50 mL per hour. We can begin to taper his steroid dose to hydrocortisone 50 mg IV every 12 hours. Continue the coverage with NovoLog every 4 hours. Subjective Subjective: Everything hurts Objective Last 24 Hrs of Vital Signs/I&O Vital Signs Date Time Temp Pulse Resp B/P Pulse O2 O2 Flow FiO2 Ox Delivery Rate 08/02 98.1 94 14 112/60 97 Nasal 4.0L Cannula 08/02 97 Nasal 4.0L Cannula 08/01 1600 97.6 74 20 112 94 Nasal 4.0L Cannula 08/01 1028 08/01 94 Nasal 4.0L Cannula 08/01 799 96.6 98 22 90/60 94 Nasal 4.0L Cannula Intake & Output 08/02 0000 08/01 1600 Intake Total 505 480 450 Output Total Balance 505 480 450 Intake, IV 385 360 400 Intake, Oral 120 120 50 Number 1 4 0 Bowel Movements Vital Signs Date Time Temp Pulse Resp B/P Pulse O2 O2 Flow FiO2 Ox Delivery Rate 08/02 0000 98.1 94 14 112/60 97 Nasal 4.0L Cannula 08/02 0000 97 Nasal 4.0L Cannula 08/01 1600 97.6 74 20 112/58 94 Nasal 4.0L Cannula 08/01 1028 08/01 08 94 Nasal 4.0L Cannula 08/01 0800 96.6 98 22 90/60 94 Nasal 4.0L Cannula Intake & Output 08/02 0000 08/01 1600 Intake Total 505 480 450 Output Total Balance 505 480 450 Intake, IV 385 360 400 Intake, Oral 120 120 50 Number 1 4 0 Bowel Movements Physical Exam General Appearance: alert, awake, confused Head: normal appearance Respiratory: normal breath sounds Cardiovascular: regular rate/rhythm Abdomen: normal bowel sounds Current Medications: Current Medications Sig/Kailash Start time Last Medication Dose Route Stop Time Status Admin Acetaminophen 650 MG .STK-MED ONE 08/01 2302 DC PO 08/01 2303 Acetaminophen 650 MG Q6P PRN 07/22 1700 AC 08/01 PO 2315 Aspirin 81 MG DAILY 07/01 1000 AC 08/01 PO 0948 Atorvastatin Calcium 40 MG 1700 06/30 1700 AC 07/30 PO 1733 Ceftazidime 1,000 MG Q24 07/31 1930 AC 08/01 IV 0935 Dextrose 25 GM ONCE ONE 08/01 1430 DC 08/01 IV 08/01 1431 1400 Dextrose 25 GM .STK-MED ONE 08/01 1008 DC IV 08/01 1009 Dextrose 25 GM ONCE ONE 08/01 0800 DC 08/01 IV 08/01 0801 0753 Dextrose/Sodium 1,000 ML Q20H 08/02 0515 AC 08/02 Chloride IV 0519 Dextrose/Sodium 1,000 ML Q20H 08/01 0830 DC 08/01 Chloride IV 0948 Epoetin Ludwig 3,000 UNIT MoWeFr PRN 07/08 1200 AC IV Epoetin Ludwig 2,000 UNIT MoWeFr PRN 07/08 1200 AC IV Fluconazole 400 MG 1700 08/02 1700 CAN PO Fluconazole 400 MG 1700 08/02 1700 AC Sodium Chloride 200 ML IV 08/02 1859 Fluconazole 400 MG DAILY 08/01 1000 DC 08/01 PO 08/01 1001 1027 Fluconazole 400 MG 1700 07/31 1700 DC PO Guaifenesin 600 MG Q12 07/18 1000 AC 08/01 PO 2254 Hydrocortisone 50 MG Q8 08/01 1400 AC 08/02 Sodium Succinate IV 0603 Hydrocortisone 100 MG ONE ONE 08/01 0830 DC 08/01 Sodium Succinate IV 08/01 0831 0933 Insulin Aspart 0 Q4 08/01 1000 AC 08/02 SC 0603 Insulin Aspart 0 TIDAC/HS 06/30 2100 DC 07/30 SC 1730 Insulin Detemir 5 UNITS QAM 07/30 1000 DC 08/01 SC 0941 Iron Sucrose 100 MG PER PROTOCL PRN 07/01 1430 AC 07/03 Sodium Chloride 100 ML IV 1221 Morphine Sulfate 2 MG ONCE ONE 08/01 1845 DC 08/01 IV 08/01 1846 1850 Multivitamins 1 TAB DAILY 07/01 1000 AC 07/31 PO 1447 Nystatin 1 CHAITANYA TID 07/25 1600 AC 08/01 TOP 2255 Omeprazole 40 MG DAILY AC 07/14 0700 AC 08/02 PO 0603 Prednisone 2.5 MG DAILY 07/31 1000 AC 08/01 PO 08/06 1001 1027 Sevelamer Carbonate 800 MG WITH MEALS 06/30 1200 AC 08/01 PO 1026 Sodium Chloride 2 SPRAY Q10MIN PRN 07/12 0230 AC CARLITOS Sodium Hypochlorite 1 CHAITANYA BID 07/05 1113 AC 08/01 TOP 0934 Tamsulosin HCl 0.4 MG DAILY 07/01 1000 AC 07/30 PO 0923 Vitamin A/Vitamin D 1 CHAITANYA BID 06/30 2200 AC 08/01 TOP 2254 Zinc Oxide 1 CHAITANYA BID 06/30 2200 AC 08/01 TOP 2254 Findings Pertinent Lab/[facility] Results: Laboratory Tests 08/02 08/01 0515 0850 Chemistry Sodium (137 - 145 mmol/L) 142 142 Potassium (3.5 - 5.1 mmol/L) 3.5 3.6 Chloride (98 - 107 mmol/L) 105 105 Carbon Dioxide (22 - 30 mmol/L) 22 23 Anion Gap (5 - 16) 14 14 BUN (9 - 20 mg/dL) 19 15 Creatinine (0.7 - 1.2 mg/dL) 2.6 H 2.1 H Estimated GFR (>60 ml/min) 24 L 31 L Glucose (65 - 99 mg/dL) 126 H 80 Calcium (8.4 - 10.2 mg/dL) 7.7 L 7.8 L Phosphorus (2.5 - 4.5 mg/dL) 3.0 3.3 Magnesium (1.6 - 2.3 mg/dL) 1.6 1.5 L Total Bilirubin (0.2 - 1.3 mg/dL) 0.3 0.4 AST (17 - 59 U/L) 18 26 ALT (21 - 72 U/L) 19 L 34 Albumin (3.5 - 5.0 g/dL) 1.9 L 2.0 L Cortisol AM Sample (4.46 - 22.7 ug/dL) 19.4 Hematology CBC w Diff MAN DIFF ORDERED MAN DIFF ORDERED WBC (4.8 - 10.8 /CUMM) 28.4 H 21.4 H RBC (4.70 - 6.10 /CUMM) 3.06 L 3.40 L Hgb (14.0 - 18.0 G/DL) 8.5 L 9.5 L Hct (42 - 52 %) 26.8 L 30.1 L MCV (80.0 - 94.0 FL) 87.8 88.4 MCH (27.0 - 31.0 PG) 27.8 27.8 RDW (11.5 - 14.5 %) 18.8 H 19.0 H Plt Count (130 - 400 /CUMM) 390 297 MPV (7.4 - 10.4 FL) 8.6 8.9 Gran % (42.2 - 75.2 %) 96.5 H 90.8 H Lymphocytes % (20.5 - 51.1 %) 1.6 L 2.5 L Monocytes % (1.7 - 9.3 %) 1.9 5.3 Eosinophils % (0 - 5 %) 0 0.7 Basophils % (0.0 - 2.0 %) 0 L 0.7 Absolute Granulocytes (1.4 - 6.5 /CUMM) 27.4 H 19.4 H Segmented Neutrophils (42.2 - 75.2 %) 92 H 82 H Band Neutrophils (0.0 - 5.0 %) 3 11 H Absolute Lymphocytes (1.2 - 3.4 /CUMM) 0.4 L 0.5 L Lymphocytes (20.5 - 51.1 %) 2 L 4 L Monocytes (1.7 - 9.3 %) 3 3 Absolute Monocytes (0.10 - 0.60 /CUMM) 0.5 1.1 H Absolute Eosinophils (0.0 - 0.7 /CUMM) 0 0.1 Absolute Basophils (0.0 - 0.2 /CUMM) 0 0.1 Platelet Estimate (ADEQUATE) ADEQUATE ADEQUATE Polychromasia 1+ 1+ Hypochromic-Microcytic 1+ 2+ Poikilocytosis 1+ 2+ Anisocytosis 2+ Ovalocytes 1+ PUBS MCHC (33.0 - 37.0 G/DL) 31.7 L 31.5 L Other Body Source Fld Total RBCs Counted (%) 100
[2016-08-02 08:00] VITALS: BP 130/60
--- NOTE | 2016-08-02 10:55 | PN- Infect Dx ---
Subjective Subjective: Afebrile on steroids. He has improved with blood pressure normalized and with no complaints at this time. He specifically denies any dysuria, shortness of breath or chest pain. He ate breakfast well. Objective Last 24 Hrs of Vital Signs/I&O Vital Signs Date Time Temp Pulse Resp B/P Pulse O2 O2 Flow FiO2 Ox Delivery Rate 08/02 799 97.1 70 22 130/60 95 Nasal 4.0L Cannula 08/02 0000 98.1 94 14 112/60 97 Nasal 4.0L Cannula 08/02 0000 97 Nasal 4.0L Cannula 08/01 1600 97.6 74 20 112/58 94 Nasal 4.0L Cannula Intake & Output 08/02 0000 Intake Total 505 480 Output Total Balance 505 480 Intake, IV 385 360 Intake, Oral 120 120 Number 1 4 Bowel Movements Physical Exam Other Physical Findings: He is awake and alert, oriented to person and place, and in no acute distress Chest tunneled catheter in the right upper chest with no inflammation at the site Lungs decreased breath sounds at both bases Heart regular rhythm with no murmur Abdomen is soft, nontender with positive bowel sounds Extremities necrotic lesions in the left thigh and lateral aspect of the right leg unchanged, tender to palpation Results Last 24 Hours of Lab Results: Laboratory Tests 08/02 514 Chemistry Sodium (137 - 145 mmol/L) 142 Potassium (3.5 - 5.1 mmol/L) 3.5 Chloride (98 - 107 mmol/L) 105 Carbon Dioxide (22 - 30 mmol/L) 22 Anion Gap (5 - 16) 14 BUN (9 - 20 mg/dL) 19 Creatinine (0.7 - 1.2 mg/dL) 2.6 H Estimated GFR (>60 ml/min) 24 L Glucose (65 - 99 mg/dL) 126 H Calcium (8.4 - 10.2 mg/dL) 7.7 L Phosphorus (2.5 - 4.5 mg/dL) 3.0 Magnesium (1.6 - 2.3 mg/dL) 1.6 Total Bilirubin (0.2 - 1.3 mg/dL) 0.3 AST (17 - 59 U/L) 18 ALT (21 - 72 U/L) 19 L Albumin (3.5 - 5.0 g/dL) 1.9 L Hematology CBC w Diff MAN DIFF ORDERED WBC (4.8 - 10.8 /CUMM) 28.4 H RBC (4.70 - 6.10 /CUMM) 3.06 L Hgb (14.0 - 18.0 G/DL) 8.5 L Hct (42 - 52 %) 26.8 L MCV (80.0 - 94.0 FL) 87.8 MCH (27.0 - 31.0 PG) 27.8 RDW (11.5 - 14.5 %) 18.8 H Plt Count (130 - 400 /CUMM) 390 MPV (7.4 - 10.4 FL) 8.6 Gran % (42.2 - 75.2 %) 96.5 H Lymphocytes % (20.5 - 51.1 %) 1.6 L Monocytes % (1.7 - 9.3 %) 1.9 Eosinophils % (0 - 5 %) 0 Basophils % (0.0 - 2.0 %) 0 L Absolute Granulocytes (1.4 - 6.5 /CUMM) 27.4 H Segmented Neutrophils (42.2 - 75.2 %) 92 H Band Neutrophils (0.0 - 5.0 %) 3 Absolute Lymphocytes (1.2 - 3.4 /CUMM) 0.4 L Lymphocytes (20.5 - 51.1 %) 2 L Monocytes (1.7 - 9.3 %) 3 Absolute Monocytes (0.10 - 0.60 /CUMM) 0.5 Absolute Eosinophils (0.0 - 0.7 /CUMM) 0 Absolute Basophils (0.0 - 0.2 /CUMM) 0 Platelet Estimate (ADEQUATE) ADEQUATE Polychromasia 1+ Hypochromic-Microcytic 1+ Poikilocytosis 1+ Ovalocytes 1+ PUBS MCHC (33.0 - 37.0 G/DL) 31.7 L Other Body Source Fld Total RBCs Counted (%) 100 Last 24 Hours of [facility] Results: Blood cultures July 31 negative Assessment/Plan Impression: Marked improvement from yesterday with temperatures down and blood pressure up on empiric treatment with Vancomycin and Ceftazidime, Day 2, for possible sepsis , though blood cultures remain negative and chest x-ray is without any new densities, and on Fluconazole Day 3 for candiduria, though with recent urine culture only with 10,000 colonies and with no definite urinary symptoms. His white blood cell count has increased further today, possibly secondary to the steroids, given for the possibility of relative addisonism, and these are being tapered. His new necrotic skin lesions raise concern for a process such as calciphylaxis, though his PTH level is only mildly elevated, and a biopsy may be helpful in further evaluating these lesions. Suggestion: 1. Would pursue a skin biopsy of one of his new skin lesions 2. Continue Vancomycin after dialysis per protocol 3. Continue Ceftazidime 4. Continue Fluconazole 400 mg po after every dialysis
--- NOTE | 2016-08-02 10:56 | PN- Pulmonary ---
Subjective HPI/Critical Care Issues: pt seen and examined doing much better able to eat with some assistance awake and oriented no cp bp stable wbc 28.4 in setting of steroids Objective Current Medications: Current Medications Sig/Kailash Start time Last Medication Dose Route Stop Time Status Admin Acetaminophen 650 MG .STK-MED ONE 08/01 2302 DC PO 08/01 2303 Acetaminophen 650 MG Q6P PRN 07/22 1700 AC 08/01 PO 2315 Aspirin 81 MG DAILY 07/01 1000 AC 08/01 PO 0948 Atorvastatin Calcium 40 MG 1700 06/30 1700 AC 07/30 PO 1733 Ceftazidime 1,000 MG Q24 07/31 1930 AC 08/01 IV 0935 Dextrose 25 GM ONCE ONE 08/01 1430 DC 08/01 IV 08/01 1431 1400 Dextrose/Sodium 1,000 ML Q20H 08/02 0515 AC 08/02 Chloride IV 0519 Dextrose/Sodium 1,000 ML Q20H 08/01 0830 DC 08/01 Chloride IV 0948 Epoetin Ludwig 3,000 UNIT MoWeFr PRN 07/08 1200 AC IV Epoetin Ludwig 2,000 UNIT MoWeFr PRN 07/08 1200 AC IV Fluconazole 400 MG 1700 08/02 1700 CAN PO Fluconazole 400 MG 1700 08/02 1700 AC Sodium Chloride 200 ML IV 08/02 1859 Guaifenesin 600 MG Q12 07/18 1000 AC 08/01 PO 2254 Hydrocortisone 50 MG Q12 08/02 2200 AC Sodium Succinate IV Hydrocortisone 50 MG Q8 08/01 1400 DC 08/02 Sodium Succinate IV 0603 Insulin Aspart 0 Q4 08/01 1000 AC 08/02 SC 1025 Insulin Detemir 5 UNITS QAM 07/30 1000 DC 08/01 SC 0941 Iron Sucrose 100 MG PER PROTOCL PRN 07/01 1430 AC 07/03 Sodium Chloride 100 ML IV 1221 Morphine Sulfate 2 MG ONCE ONE 08/01 1845 DC 08/01 IV 08/01 1846 1850 Multivitamins 1 TAB DAILY 07/01 1000 AC 07/31 PO 1447 Nystatin 1 CHAITANYA TID 07/25 1600 AC 08/02 TOP 1009 Omeprazole 40 MG DAILY AC 07/14 0700 AC 08/02 PO 0603 Prednisone 2.5 MG DAILY 07/31 1000 AC 08/01 PO 08/06 1001 1027 Sevelamer Carbonate 800 MG WITH MEALS 06/30 1200 AC 08/02 PO 0839 Sodium Chloride 2 SPRAY Q10MIN PRN 07/12 0230 AC CARLITOS Sodium Hypochlorite 1 CHAITANYA BID 07/05 1113 AC 08/02 TOP 1010 Tamsulosin HCl 0.4 MG DAILY 07/01 1000 AC 07/30 PO 0923 Vitamin A/Vitamin D 1 CHAITANYA BID 06/30 2200 AC 08/02 TOP 1009 Zinc Oxide 1 CHAITANYA BID 06/30 2200 AC 08/02 TOP 1009 Vital Signs & I&O Last 24 Hrs of Vitals and I&O: Vital Signs Date Time Temp Pulse Resp B/P Pulse O2 O2 Flow FiO2 Ox Delivery Rate 08/02 08 97.1 70 22 130/60 95 Nasal 4.0L Cannula 08/02 0000 98.1 94 14 112/60 97 Nasal 4.0L Cannula 08/02 0000 97 Nasal 4.0L Cannula 08/01 1600 97.6 74 20 112/58 94 Nasal 4.0L Cannula Intake & Output 08/02 1600 08/02 0800 08/02 0000 Intake Total 505 480 Output Total Balance 505 480 Intake, IV 385 360 Intake, Oral 120 120 Number 1 4 Bowel Movements Exam Other Physical Findings: gen lethargic, more arousable heent ncat cvs s1, s2 lungs scattered rhonchi abd soft, not distended ext with bandages, wounds/skin lesions unchanged Results Last 24 Hrs of Lab Results: Laboratory Tests 08/02/16 0515: Anion Gap 14, Estimated GFR 24 L, Glucose 126 H, Calcium 7.7 L, Phosphorus 3.0, Magnesium 1.6, Total Bilirubin 0.3, AST 18, ALT 19 L, Albumin 1.9 L, CBC w Diff MAN DIFF ORDERED, RBC 3.06 L, MCV 87.8, MCH 27.8, RDW 18.8 H, MPV 8.6, Gran % 96.5 H, Lymphocytes % 1.6 L, Monocytes % 1.9, Eosinophils % 0, Basophils % 0 L, Absolute Granulocytes 27.4 H, Segmented Neutrophils 92 H, Band Neutrophils 3, Absolute Lymphocytes 0.4 L, Lymphocytes 2 L, Monocytes 3, Absolute Monocytes 0.5, Absolute Eosinophils 0, Absolute Basophils 0, Platelet Estimate ADEQUATE, Polychromasia 1+, Hypochromic-Microcytic 1+, Poikilocytosis 1 +, Ovalocytes 1+, PUBS MCHC 31.7 L, Fld Total RBCs Counted 100 Impression/Plan Impression/Plan Impression/Plan: Impression 75 year old man * Shock - possibly septic, ?aspiration, wound care * Fevers * AMS * ESRD on HD * leg ulcerations * antiphospholipid syndrome * fungal urinary infection Plan Respiratory -keep spo2 >92% -DNI ID -ID consultation appreciated -broad coverage for now including fluconazole -leukocytosis can be related to steroid use CVS -monitor hemodynamics -no vasopressors or central access Heme -monitor INR -on coumadin, can be held in light of acute illness Metabolic -HD to be held given hypotension -nephrology follow up Alimentary -aspiration precautions Neuro -improved mental status Surgical consultation for skin bx.
--- NOTE | 2016-08-02 12:16 | PN- Nephrology ---
Assessment/Plan Assessment: 1. ESRD secondary to diabetic nephropathy 2. Recurrent fevers -but he has now defervesced (on steroids and antibiotics), is normotensive and clinically much improved 3. 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 Confusion -improved today 5. Diabetes mellitus with peripheral vascular disease status post right TMA, status post debridement left leg/ankle ulcer 6. Anemia - on Epogen and IV iron 7. Antiphospholipid antibody syndrome status post DVT Suggestion: 1. Skin biopsy pending 2. Will start sodium thiosulfate 12.5 g IV (in 100 mL NS) during the last 30-60 minutes of dialysis today and then, if tolerated, 25 g IV during the last 30-60 minutes of each subsequent hemodialysis qMWF 3. Hemodialysis today with <1L ultrafiltration 4. Antibiotic therapy per ID Subjective Subjective: Patient has been afebrile over the past 24-48 hours and is much more alert and interactive today. Objective Vital Signs and I&Os Vital Signs Date Time Temp Pulse Resp B/P Pulse O2 O2 Flow FiO2 Ox Delivery Rate 08/02 08 97.1 70 22 130/60 95 Nasal 4.0L Cannula 08/02 0000 98.1 94 14 112/60 97 Nasal 4.0L Cannula 08/02 0000 97 Nasal 4.0L Cannula 08/01 1600 97.6 74 20 112/58 94 Nasal 4.0L Cannula Intake & Output 08/02 1600 08/02 0400 08/01 1600 08/01 0400 07/31 1600 07/31 0400 Intake Total 505 322 268 7510 100 220 Output Total 0 0 Balance 505 829 911 5301 100 220 Intake, IV 385 880 770 1762 Intake, Oral 120 120 50 100 220 Number 1 4 1 0 1 1 Bowel Movements Output, Urine 0 0 Patient 142 lb Weight Physical Exam: General: Well-developed white male in NAD Skin: No rash or jaundice; mottled, necrotic, tender areas noted on right lateral leg and medial aspect of left thigh -these appear to be unchanged in appearance but more tender HEENT: Conjunctivae pale, sclerae anicteric, mucous membranes moist Neck: Without masses or thyromegaly, no supraclavicular or cervical adenopathy; there is a right IJ tunneled dialysis catheter in place Chest: Clear anterolaterally Heart: Regular rate and rhythm without S3 or rub Abdomen: Soft and nontender without palpable masses or organomegaly Extremities: Lower extremity dressing intact Neuro: Awake, alert, oriented to place but not to time, no focal findings, no asterixis or myoclonus Current Medications: Current Medications Sig/Kailash Start time Last Medication Dose Route Stop Time Status Admin Acetaminophen 650 MG .STK-MED ONE 08/01 2302 DC PO 08/01 2303 Acetaminophen 650 MG Q6P PRN 07/22 1700 AC 08/01 PO 2315 Aspirin 81 MG DAILY 07/01 1000 AC 08/01 PO 0948 Atorvastatin Calcium 40 MG 1700 06/30 1700 AC 07/30 PO 1733 Ceftazidime 1,000 MG Q24 07/31 1930 AC 08/01 IV 0935 Dextrose 25 GM ONCE ONE 08/01 1430 DC 08/01 IV 08/01 1431 1400 Dextrose/Sodium 1,000 ML Q20H 08/02 0515 AC 08/02 Chloride IV 0519 Dextrose/Sodium 1,000 ML Q20H 08/01 0830 DC 08/01 Chloride IV 0948 Epoetin Ludwig 3,000 UNIT MoWeFr PRN 07/08 1200 AC IV Epoetin Ludwig 2,000 UNIT MoWeFr PRN 07/08 1200 AC IV Fluconazole 400 MG 1700 08/02 1700 CAN PO Fluconazole 400 MG 1700 08/02 1700 AC Sodium Chloride 200 ML IV 08/02 1859 Guaifenesin 600 MG Q12 07/18 1000 AC 08/01 PO 2254 Hydrocortisone 50 MG Q12 08/02 2200 AC Sodium Succinate IV Hydrocortisone 50 MG Q8 08/01 1400 DC 08/02 Sodium Succinate IV 0603 Insulin Aspart 0 Q4 08/01 1000 08/02 AL 1025 Insulin Detemir 5 UNITS QAM 07/30 1000 DC 08/01 SC 0941 Iron Sucrose 100 MG PER PROTOCL PRN 07/01 1430 AC 07/03 Sodium Chloride 100 ML IV 1221 Morphine Sulfate 2 MG ONCE ONE 08/01 1845 DC 08/01 IV 08/01 1846 1850 Multivitamins 1 TAB DAILY 07/01 1000 AC 07/31 PO 1447 Non-Formulary 0 SEE ADMIN CRITERIA 08/05 1000 UNVr Medication ANY Non-Formulary 0 SEE ADMIN CRITERIA 08/02 1200 UNVr Medication ANY Nystatin 1 CHAITANYA TID 07/25 1600 AC 08/02 TOP 1009 Omeprazole 40 MG DAILY AC 07/14 0700 AC 08/02 PO 0603 Prednisone 2.5 MG DAILY 07/31 1000 AC 08/01 PO 08/06 1001 1027 Sevelamer Carbonate 800 MG WITH MEALS 06/30 1200 AC 08/02 PO 0839 Sodium Chloride 2 SPRAY Q10MIN PRN 07/12 0230 AC CARLITOS Sodium Hypochlorite 1 CHAITANYA BID 07/05 1113 AC 08/02 TOP 1010 Tamsulosin HCl 0.4 MG DAILY 07/01 1000 AC 07/30 PO 0923 Vitamin A/Vitamin D 1 CHAITANYA BID 06/30 2200 AC 08/02 TOP 1009 Zinc Oxide 1 CHAITANYA BID 06/30 2200 AC 08/02 TOP 1009 Results Pertinent Lab Results: Laboratory Tests 08/02 08/01 0515 0850 Chemistry Sodium (137 - 145 mmol/L) 142 142 Potassium (3.5 - 5.1 mmol/L) 3.5 3.6 Chloride (98 - 107 mmol/L) 105 105 Carbon Dioxide (22 - 30 mmol/L) 22 23 Anion Gap (5 - 16) 14 14 BUN (9 - 20 mg/dL) 19 15 Creatinine (0.7 - 1.2 mg/dL) 2.6 H 2.1 H Estimated GFR (>60 ml/min) 24 L 31 L Glucose (65 - 99 mg/dL) 126 H 80 Calcium (8.4 - 10.2 mg/dL) 7.7 L 7.8 L Phosphorus (2.5 - 4.5 mg/dL) 3.0 3.3 Magnesium (1.6 - 2.3 mg/dL) 1.6 1.5 L Total Bilirubin (0.2 - 1.3 mg/dL) 0.3 0.4 AST (17 - 59 U/L) 18 26 ALT (21 - 72 U/L) 19 L 34 Albumin (3.5 - 5.0 g/dL) 1.9 L 2.0 L Cortisol AM Sample (4.46 - 22.7 ug/dL) 19.4 Hematology CBC w Diff MAN DIFF ORDERED MAN DIFF ORDERED WBC (4.8 - 10.8 /CUMM) 28.4 H 21.4 H RBC (4.70 - 6.10 /CUMM) 3.06 L 3.40 L Hgb (14.0 - 18.0 G/DL) 8.5 L 9.5 L Hct (42 - 52 %) 26.8 L 30.1 L MCV (80.0 - 94.0 FL) 87.8 88.4 MCH (27.0 - 31.0 PG) 27.8 27.8 RDW (11.5 - 14.5 %) 18.8 H 19.0 H Plt Count (130 - 400 /CUMM) 390 297 MPV (7.4 - 10.4 FL) 8.6 8.9 Gran % (42.2 - 75.2 %) 96.5 H 90.8 H Lymphocytes % (20.5 - 51.1 %) 1.6 L 2.5 L Monocytes % (1.7 - 9.3 %) 1.9 5.3 Eosinophils % (0 - 5 %) 0 0.7 Basophils % (0.0 - 2.0 %) 0 L 0.7 Absolute Granulocytes (1.4 - 6.5 /CUMM) 27.4 H 19.4 H Segmented Neutrophils (42.2 - 75.2 %) 92 H 82 H Band Neutrophils (0.0 - 5.0 %) 3 11 H Absolute Lymphocytes (1.2 - 3.4 /CUMM) 0.4 L 0.5 L Lymphocytes (20.5 - 51.1 %) 2 L 4 L Monocytes (1.7 - 9.3 %) 3 3 Absolute Monocytes (0.10 - 0.60 /CUMM) 0.5 1.1 H Absolute Eosinophils (0.0 - 0.7 /CUMM) 0 0.1 Absolute Basophils (0.0 - 0.2 /CUMM) 0 0.1 Platelet Estimate (ADEQUATE) ADEQUATE ADEQUATE Polychromasia 1+ 1+ Hypochromic-Microcytic 1+ 2+ Poikilocytosis 1+ 2+ Anisocytosis 2+ Ovalocytes 1+ PUBS MCHC (33.0 - 37.0 G/DL) 31.7 L 31.5 L Other Body Source Fld Total RBCs Counted (%) 100 08/01 07/31 07/31 07/31 07/31 0416 2130 1620 1529 1415 Chemistry Lactic Acid (0.7 - 2.1 mmol/L) 1.9 2.2 H Troponin I (<0.11 ng/ml) 0.05 0.05 Cortisol AM Sample (4.46 - 22.7 ug/dL) 12.1 Coagulation PT (9.4 - 12.5 SEC) 41.6 H INR (0.90 - 1.17) 4.02 *H 07/31 07/31 07/31 1120 0800 0726 Chemistry Sodium (137 - 145 mmol/L) 139 Potassium (3.5 - 5.1 mmol/L) 4.2 Chloride (98 - 107 mmol/L) 99 Carbon Dioxide (22 - 30 mmol/L) 26 Anion Gap (5 - 16) 13 BUN (9 - 20 mg/dL) 5 L 23 H Creatinine (0.7 - 1.2 mg/dL) 3.5 H Estimated GFR (>60 ml/min) 17 L BUN/Creatinine Ratio (7 - 25 %) 6.6 L Glucose (65 - 99 mg/dL) 99 Calcium (8.4 - 10.2 mg/dL) 8.2 L Phosphorus (2.5 - 4.5 mg/dL) 3.0 Magnesium (1.6 - 2.3 mg/dL) 1.6 Total Bilirubin (0.2 - 1.3 mg/dL) 0.4 Direct Bilirubin (< 0.4 mg/dL) 0.4 AST (17 - 59 U/L) 22 ALT (21 - 72 U/L) 35 Alkaline Phosphatase (< 127 U/L) 132 H Total Protein (6.3 - 8.2 g/dL) 5.8 L Albumin (3.5 - 5.0 g/dL) 2.3 L 2.6 L PTH Intact (13.8 - 85 pg/ml) 89.5 H Coagulation PT Cancelled INR Cancelled Hematology CBC w Diff MAN DIFF ORDERED WBC (4.8 - 10.8 /CUMM) 18.6 H RBC (4.70 - 6.10 /CUMM) 3.33 L Hgb (14.0 - 18.0 G/DL) 9.1 L Hct (42 - 52 %) 29.2 L MCV (80.0 - 94.0 FL) 87.8 MCH (27.0 - 31.0 PG) 27.4 RDW (11.5 - 14.5 %) 18.6 H Plt Count (130 - 400 /CUMM) 416 H MPV (7.4 - 10.4 FL) 9.0 Gran % (42.2 - 75.2 %) 83.3 H Lymphocytes % (20.5 - 51.1 %) 6.3 L Monocytes % (1.7 - 9.3 %) 9.8 H Eosinophils % (0 - 5 %) 0.5 Basophils % (0.0 - 2.0 %) 0.1 Absolute Granulocytes (1.4 - 6.5 /CUMM) 15.5 H Segmented Neutrophils (42.2 - 75.2 %) 79 H Band Neutrophils (0.0 - 5.0 %) 4 Absolute Lymphocytes (1.2 - 3.4 /CUMM) 1.2 Lymphocytes (20.5 - 51.1 %) 7 L Monocytes (1.7 - 9.3 %) 9 Absolute Monocytes (0.10 - 0.60 /CUMM) 1.8 H Absolute Eosinophils (0.0 - 0.7 /CUMM) 0.1 Absolute Basophils (0.0 - 0.2 /CUMM) 0 Myelocytes (0 - 0 %) 1 H Platelet Estimate (ADEQUATE) ADEQUATE Hypochromic-Microcytic 1+ Poikilocytosis 1+ Anisocytosis 1+ PUBS MCHC (33.0 - 37.0 G/DL) 31.2 L 07/31 0600 Chemistry Sodium Cancelled Potassium Cancelled Chloride Cancelled Carbon Dioxide Cancelled Anion Gap Cancelled BUN Cancelled Creatinine Cancelled BUN/Creatinine Ratio Cancelled Hematology CBC w Diff Cancelled WBC Cancelled RBC Cancelled Hgb Cancelled Hct Cancelled MCV Cancelled MCH Cancelled RDW Cancelled Plt Count Cancelled MPV Cancelled PUBS MCHC Cancelled
--- NOTE | 2016-08-02 14:00 | NUR ---
PATIENT REMAINS ALERT AND ORIENTATED X 2. OCCASSIONAL CONFUSION NOTED. CARDIAC STABLE. CONTINUES ON O2 AT 4L VIA NASAL CANULA. NO ACUTE RESP ISSUES NOTED. TOLORATING DIET. AWAITS TO BE DIALYZIDE. WILL FOLLOW.
--- NOTE | 2016-08-02 14:53 | NUR ---
SPEECH THERAPY: ATTEMPTED TO SEE PT FOR DYSPHAGIA TX. PT MUCH MORE ALERT/AWAKE IN COMPARISON TO 08/01. PER RN, PT ABLE TO EAT BREAKFAST/LUNCH WITH NO DIFFICULTIES/COUGHING. PT ADAMANTLY REFUSING PO TRIALS W/ ST. PT CURRENTLY ON [facility] SOFT/GROUND DIET AND NECTAR THICK LIQUIDS. REC PT CONTINUE W/ CURRENT DIET. ST TO CONTINUE TO FOLLOW CLINICALLY INDICATED.
--- NOTE | 2016-08-02 14:54 | PN- General Surgery ---
Surgical Brief Attending Note Brief Attending Note: ASKED TO PERFORM BEDSIDE SKIN BIOPSY FOR DIAGNOSIS OF CALCIPHYLAXIS. I DON'T FEEL IT IS APPROPRIATE. HE HAD AMPLE TISSUE REMOVED ONE MONTH AGO. SEE IF IT CAN BE ANALYZED. IF NOT, HE MAY BE BETTER SUITED TO GO BACK TO OR FOR FURTHER DEBRIDEMENT. CALL DR. GARIBAY TO RE-EVAL WOUND.
[2016-08-02 16:00] VITALS: BP 123/74
--- NOTE | 2016-08-02 16:00 | PN- Cardiology ---
Subjective Subjective: Patient is resting comfortably and offers no complaints today. Blood pressure has improved. Denies any chest pain, dyspnea, or palpitations Objective Vital Signs and I&Os Vital Signs Date Time Temp Pulse Resp B/P Pulse O2 O2 Flow FiO2 Ox Delivery Rate 08/02 799 95 Nasal 4.0L Cannula 08/02 799 97.1 70 22 130/60 95 Nasal 4.0L Cannula 08/02 0000 98.1 94 14 112/60 97 Nasal 4.0L Cannula 08/02 0000 97 Nasal 4.0L Cannula 08/01 1600 97.6 74 20 112/58 94 Nasal 4.0L Cannula Intake & Output 08/02 0000 08/01 1600 08/01 0000 Intake Total 880 505 480 207 887 1212 Output Total 0 0 Balance 880 505 480 230 791 8442 Intake, IV 400 385 360 354 491 0031 Intake, Oral 480 120 120 50 0 Number 2 1 4 0 1 0 Bowel Movements Output, Urine 0 0 Physical Exam: General: no apparent distress. Alert. Eyes: No obvious scleral icterus. HEENT: No jugular venous distention or abnormal jugular venous pulsations. Cardiovascular: Normal intensity S1/S2. PMI not grossly displaced. Respiratory: No rales or rhonchi Abdomen: Soft, nontender with no guarding or rebound tenderness. Musculoskeletal: No cyanosis noted, lower extremity ulceration noted Skin: Lesions noted, left leg wound dressing noted Current Medications: Current Medications Sig/Kailash Start time Last Medication Dose Route Stop Time Status Admin Acetaminophen 650 MG .STK-MED ONE 08/01 2302 DC PO 08/01 2303 Acetaminophen 650 MG Q6P PRN 07/22 1700 AC 08/02 PO 1526 Aspirin 81 MG DAILY 07/01 1000 AC 08/01 PO 0948 Atorvastatin Calcium 40 MG 1700 06/30 1700 AC 07/30 PO 1733 Carvedilol 25 MG BID 08/02 2200 AC PO Ceftazidime 1,000 MG Q24 07/31 1930 AC 08/01 IV 0935 Dextrose/Sodium 1,000 ML Q20H 08/02 0515 DC 08/02 Chloride IV 0519 Dextrose/Sodium 1,000 ML Q20H 08/01 0830 DC 08/01 Chloride IV 0948 Epoetin Ludwig 3,000 UNIT MoWeFr PRN 07/08 1200 AC IV Epoetin Ludwig 2,000 UNIT MoWeFr PRN 07/08 1200 AC IV Fluconazole 400 MG 2200 08/02 2200 AC PO Fluconazole 400 MG 1700 08/02 1700 CAN Sodium Chloride 200 ML IV 08/02 1859 Guaifenesin 600 MG Q12 07/18 1000 AC 08/01 PO 2254 Hydrocortisone 50 MG Q12 08/02 2200 AC Sodium Succinate IV Hydrocortisone 50 MG Q8 08/01 1400 DC 08/02 Sodium Succinate IV 0603 Insulin Aspart 0 Q4 08/01 1000 AC 08/02 SC 1525 Insulin Detemir 5 UNITS QAM 07/30 1000 DC 08/01 LA 0941 Iron Sucrose 100 MG PER PROTOCL PRN 07/01 1430 AC 07/03 Sodium Chloride 100 ML IV 1221 Morphine Sulfate 2 MG ONCE ONE 08/01 1845 DC 08/01 IV 08/01 1846 1850 Multivitamins 1 TAB DAILY 07/01 1000 AC 07/31 PO 1447 Non-Formulary 0 SEE ADMIN CRITERIA 08/05 1000 CAN Medication ANY Non-Formulary 0 SEE ADMIN CRITERIA 08/02 1200 CAN Medication ANY Nystatin 1 CHAITANYA TID 07/25 1600 AC 08/02 TOP 1009 Omeprazole 40 MG DAILY AC 07/14 0700 AC 08/02 PO 0603 Prednisone 2.5 MG DAILY 07/31 1000 AC 08/01 PO 08/06 1001 1027 Sevelamer Carbonate 800 MG WITH MEALS 06/30 1200 AC 08/02 PO 1321 Sodium Chloride 2 SPRAY Q10MIN PRN 07/12 0230 AC CARLITOS Sodium Hypochlorite 1 CHAITANYA BID 07/05 1113 AC 08/02 TOP 1010 Sodium Thiosulfate 25 GM MoWeFr 08/05 1400 AC Sodium Chloride 150 ML IV Sodium Thiosulfate 12.5 GM ONCE ONE 08/02 1400 DC Sodium Chloride 100 ML IV 08/02 1459 Tamsulosin HCl 0.4 MG DAILY 07/01 1000 AC 07/30 PO 0923 Vitamin A/Vitamin D 1 CHAITANYA BID 06/30 2200 AC 08/02 TOP 1009 Zinc Oxide 1 CHAITANYA BID 06/30 2200 AC 08/02 TOP 1009 Results Last 48 Hrs of Labs/Mics: Laboratory Tests 08/02/16 0515: Anion Gap 14, Estimated GFR 24 L, Glucose 126 H, Calcium 7.7 L, Phosphorus 3.0, Magnesium 1.6, Total Bilirubin 0.3, AST 18, ALT 19 L, Albumin 1.9 L, CBC w Diff MAN DIFF ORDERED, RBC 3.06 L, MCV 87.8, MCH 27.8, RDW 18.8 H, MPV 8.6, Gran % 96.5 H, Lymphocytes % 1.6 L, Monocytes % 1.9, Eosinophils % 0, Basophils % 0 L, Absolute Granulocytes 27.4 H, Segmented Neutrophils 92 H, Band Neutrophils 3, Absolute Lymphocytes 0.4 L, Lymphocytes 2 L, Monocytes 3, Absolute Monocytes 0.5, Absolute Eosinophils 0, Absolute Basophils 0, Platelet Estimate ADEQUATE, Polychromasia 1+, Hypochromic-Microcytic 1+, Poikilocytosis 1 +, Ovalocytes 1+, PUBS MCHC 31.7 L, Fld Total RBCs Counted 100 08/01/16 0850: Anion Gap 14, Estimated GFR 31 L, Glucose 80, Calcium 7.8 L, Phosphorus 3.3, Magnesium 1.5 L, Total Bilirubin 0.4, AST 26, ALT 34, Albumin 2.0 L, Cortisol AM Sample 19.4, CBC w Diff MAN DIFF ORDERED, RBC 3.40 L, MCV 88.4, MCH 27.8, RDW 19.0 H, MPV 8.9, Gran % 90.8 H, Lymphocytes % 2.5 L, Monocytes % 5.3, Eosinophils % 0.7, Basophils % 0.7, Absolute Granulocytes 19.4 H, Segmented Neutrophils 82 H, Band Neutrophils 11 H, Absolute Lymphocytes 0.5 L, Lymphocytes 4 L, Monocytes 3, Absolute Monocytes 1.1 H, Absolute Eosinophils 0.1, Absolute Basophils 0.1, Platelet Estimate ADEQUATE, Polychromasia 1+, Hypochromic-Microcytic 2+, Poikilocytosis 2+, Anisocytosis 2+, PUBS MCHC 31.5 L 08/01/16 0416: PT 41.6 H, INR 4.02 *H 07/31/16 2130: Troponin I 0.05, Cortisol AM Sample 12.1 07/31/16 1620: Lactic Acid 1.9 Recent Imaging Studies: The patient is no longer on telemetry Assessment/Plan Assessment/Plan 1. Hypotension/sepsis improving 2. Atypical/reproducible chest pain, resolved 3. Hx of Subglottic edema 4. History of antiphospholipid antibody syndrome maintained on anticoagulation 5. Lower extremity ulcer with peripheral vascular disease 6. End-stage renal disease on dialysis 7. History of hypertension 8. History of upper extremity thrombosis 9. Anemia Patient is now afebrile and blood pressure has improved significantly. Troponins from July 31 within normal limits. Patient denies any chest pain at this time. Can resume his carvedilol. Cardiac status appears stable. Please reconsult with any additional questions or concerns. Eligio Childers MD [facility] Continue telemetry? Not applicable
[2016-08-02 17:59] LABS: PT 74.3 SEC (9.4-12.5)
--- NOTE | 2016-08-02 19:47 | PN- Resident CRCU ---
See Addendum Subjective HPI/CRCU Issues: Patient seen and examined. He is seen lying upright in bed resting comfortably. Today he is well appearing and maintaining conversation and eye contact. He reports feeling well and has no specific complaints. Otherwise he denies any headache, fever, chills, chest pain, shortness of breath , nausea, vomiting, diarrhea. No overnight events reported. Objective Vital Signs & I&O Last 8 Hrs of Vitals and I&O: Intake & Output 08/02 1600 Intake Total 880 Output Total Balance 880 Intake, IV 400 Intake, Oral 480 Number 2 Bowel Movements Vitals: - Temperature: 101.9 - Heart Rate: 130 - Respiratory Rate: 22 - Systolic Blood pressure: 80-98 - Diastolic Blood pressure: 60 - Oxygen Saturation: 95% Exam General Appearance: no apparent distress, alert, awake, comfortable, cachetic Other Physical Findings: General - elderly male in no acute distress HEENT - NCAT, PERRL, anicteric sclera CVS/Chest - S1, S2 w/o m/g/r, dialysis catheter in place Resp - CTA bilaterally GI - soft, nontender, nondistended, bowel sounds present Neuro - awake and alert, CN II - XII grossly intact Ext: - LLE: multiple black wounds, diminished distal pulses - RLE: amputation of distal half of foot, no edema, diminished pulses Current Medications: Current Medications Sig/Kailash Start time Last Medication Dose Route Stop Time Status Admin Acetaminophen 650 MG .STK-MED ONE 08/01 2302 DC PO 08/01 2303 Acetaminophen 650 MG Q6P PRN 07/22 1700 AC 08/02 PO 1526 Aspirin 81 MG DAILY 07/01 1000 AC 08/01 PO 0948 Atorvastatin Calcium 40 MG 1700 06/30 1700 AC 07/30 PO 1733 Carvedilol 25 MG BID 08/02 2200 AC PO Ceftazidime 1,000 MG Q24 07/31 1930 AC 08/01 IV 0935 Collagenase 1 CHAITANYA DAILY 08/02 1815 AC TOP Dextrose/Sodium 1,000 ML Q20H 08/02 0515 DC 08/02 Chloride IV 0519 Dextrose/Sodium 1,000 ML Q20H 08/01 0830 DC 08/01 Chloride IV 0948 Epoetin Ludwig 3,000 UNIT MoWeFr PRN 07/08 1200 AC IV Epoetin Ludwig 2,000 UNIT MoWeFr PRN 07/08 1200 AC IV Fluconazole 400 MG 2200 08/02 2200 AC PO Fluconazole 400 MG 1700 08/02 1700 CAN Sodium Chloride 200 ML IV 08/02 1859 Guaifenesin 600 MG Q12 07/18 1000 AC 08/01 PO 2254 Hydrocortisone 50 MG Q12 08/02 2200 AC Sodium Succinate IV Hydrocortisone 50 MG Q8 08/01 1400 DC 08/02 Sodium Succinate IV 0603 Insulin Aspart 0 Q4 08/01 1000 AC 08/02 SC 1525 Iron Sucrose 100 MG PER PROTOCL PRN 07/01 1430 AC 07/03 Sodium Chloride 100 ML IV 1221 Multivitamins 1 TAB DAILY 07/01 1000 AC 07/31 PO 1447 Non-Formulary 0 SEE ADMIN CRITERIA 08/05 1000 CAN Medication ANY Non-Formulary 0 SEE ADMIN CRITERIA 08/02 1200 CAN Medication ANY Nystatin 1 CHAITANYA TID 07/25 1600 AC 08/02 TOP 1009 Omeprazole 40 MG DAILY AC 07/14 0700 AC 08/02 PO 0603 Phytonadione 5 MG ONCE ONE 08/02 1845 DC PO 08/02 1846 Prednisone 2.5 MG DAILY 07/31 1000 AC 08/01 PO 08/06 1001 1027 Sevelamer Carbonate 800 MG WITH MEALS 06/30 1200 AC 08/02 PO 1321 Sodium Chloride 2 SPRAY Q10MIN PRN 07/12 0230 AC CARLITOS Sodium Hypochlorite 1 CHAITANYA BID 07/05 1113 AC 08/02 TOP 1010 Sodium Thiosulfate 25 GM MoWeFr 08/05 1400 AC Sodium Chloride 150 ML IV Sodium Thiosulfate 12.5 GM ONCE ONE 08/02 1400 DC Sodium Chloride 100 ML IV 08/02 1459 Tamsulosin HCl 0.4 MG DAILY 07/01 1000 AC 07/30 PO 0923 Vancomycin HCl See Dose MoWeFr 08/05 0000 AC Insts (1) IV Vancomycin HCl 1,000 MG ONE ONE 08/02 1915 AC Sodium Chloride 250 ML IV 08/02 2014 Vitamin A/Vitamin D 1 CHAITANYA BID 06/30 2200 AC 08/02 TOP 1009 Zinc Oxide 1 CHAITANYA BID 06/30 2200 AC 08/02 TOP 1009 Dose Instructions: (1)Vancomycin HCl: DOSE BASED ON RANDOM LEVEL Impression/Plan Impression/Problem List Impression: Patient has greatly improved with stable hemodynamics today with fluid resuscitation. INR was elevated yesterday on previous lab testing with repeat testing demonstrating an INR of 7.22. Patient was assessed for bleeding which was negative. He was given vitamin K to reverse this. This may have been secondary to his decreased PO intake. He is receiving dialysis this evening and will be dosed with multiple medications after treatment. He is continued on steroids per endocrinology. Patient is a general medicine hold with instruction not to readmit to the ICU and to defer use of central lines or pressors. Problem List: -ESRD on HD(M,W,F) -Chronic LLE ulcer -Diabetes Mellitus -APLS, on warfarin (on hold) -Supratherapeutic INR s/p vitamin K Cardiovascular: Patient with multiple medical problems transfered to the ICU for hemodynamic stabilization requiring multiple liters of fluid resuscitation. - Patient now DNR/DNI, no central line, no pressors, do not readmit to ICU - Telemetry cardiac monitoring - Bolus patient as needed to maintain systolic blood pressure > 90 Renal: History of end stage renal disease maintained on hemodialysis every Friday/ Friday/Friday. - Mj Cath in place - Monitor for fluid over load - Nephrology consult following Rheumatology: Patient with a history of Crohns maintained on daily steroids for prevention of flares. -Prednisone taper Infectious Disease: Fever of unknown origin, patient started on vancomycin, ceftazidime, and fluconazole. These medications are to be administered after dialysis. - Continue antibiotics - Infectious disease consult following - Daily CBC to assess for infection Endocrine: Patient with a history of type type diabetes mellitus. - Solucortef 50mg IV Q12H - Novolog SSI - Levemir - Endocrinology consult following Musculoskeletal: Amputation of right distal lower extremity involving the toes and half the foot. Multiple non healing ulcers. Diet - NPO, patient failed swallow eval, D51/2NS DVT PPx - mechanical Code status - DNR/DNI, no central line, no pressors, do not readmit to ICU Problem List: 1. CKD (chronic kidney disease) Pain Ratin Tomorrow's Labs & Rationales: CBC ICU bundle INR Plan DVT/Prophylaxis: mechanical, pharmacological Code Status: Full Code
[2016-08-02 22:57] VITALS: BP 130/62
[2016-08-03 06:30] LABS: ABSOLUTE BASOPHIL COUNT 0 /CUMM (0.0-0.2); ABSOLUTE EOSINOPHIL COUNT 0 /CUMM (0.0-0.7); ABSOLUTE GRANULOCYTE CT 14.6 /CUMM (1.4-6.5); ABSOLUTE LYMPH COUNT 0.4 /CUMM (1.2-3.4); ABSOLUTE MONOCYTE COUNT 0.5 /CUMM (0.10-0.60); BASOPHIL % 0.1 % (0.0-2.0); EOSINOPHIL % 0 % (0-5); HEMATOCRIT 24.3 % (42-52); MEAN CORPUSCULAR HGB 27.5 PG (27.0-31.0); MEAN CORPUSCULAR HGB CONC 31.2 G/DL (33.0-37.0); MEAN PLATELET VOLUME 8.3 FL (7.4-10.4); PLATELET COUNT 351 /CUMM (130-400); RBC DISTRIBUTION WIDTH 19.2 % (11.5-14.5); RED BLOOD CELL CT 2.76 /CUMM (4.70-6.10); WHITE BLOOD CELL COUNT 15.5 /CUMM (4.8-10.8)
[2016-08-03 06:31] LABS: PT 33.4 SEC (9.4-12.5)
[2016-08-03 06:58] LABS: GRANULOCYTE % 94.3 % (42.2-75.2)
[2016-08-03 08:00] VITALS: BP 146/60
--- NOTE | 2016-08-03 08:42 | PN- Resident CRCU ---
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 Offers no complaints today. Objective Vital Signs & I&O Last 8 Hrs of Vitals and I&O: Vital Signs Date Time Temp Pulse Resp B/P Pulse O2 O2 Flow FiO2 Ox Delivery Rate 08/03 0000 94 Room Air Room Air 08/02 2257 97.0 102 18 130/62 94 Room Air Room Air 08/02 2214 103 130/62 08/02 1600 99 Nasal 4.0L Cannula 08/02 1600 97.9 93 20 123/74 99 Room Air Intake & Output 08/03 1600 08/03 0800 08/03 0000 Intake Total 100 380 Output Total Balance 100 380 Intake, IV 0 280 Intake, Oral 100 100 Number 1 2 Bowel Movements Exam General Appearance: alert, awake, comfortable Head: atraumatic, normal appearance Neck: supple Respiratory: normal breath sounds, chest non-tender, no respiratory distress, lungs clear Cardiovascular: regular rate/rhythm Gastrointestinal: normal bowel sounds, soft, non-tender Extremities: no edema, b/l wound dressing Cranial Nerves: normal hearing, normal speech, PERRL Nutrition Nutrition: P.O. diet Current Medications: Current Medications Sig/Kailash Start time Last Medication Dose Route Stop Time Status Admin Acetaminophen 650 MG .STK-MED ONE 08/02 1521 DC PO 08/02 1522 Acetaminophen 650 MG Q6P PRN 07/22 1700 AC 08/02 PO 1526 Aspirin 81 MG DAILY 07/01 1000 AC 08/03 PO 1012 Atorvastatin Calcium 40 MG 1700 06/30 1700 AC 08/02 PO 1957 Carvedilol 25 MG BID 08/02 2200 AC 08/03 PO 1012 Ceftazidime 1,000 MG Q24 07/31 1930 AC 08/03 IV 1014 Collagenase 1 CHAITANYA DAILY 08/02 1815 AC 08/03 TOP 1021 Dextrose/Sodium 1,000 ML Q20H 08/02 0515 DC 08/02 Chloride IV 0519 Epoetin Ludwig 3,000 UNIT MoWeFr PRN 07/08 1200 AC IV Epoetin Ludwig 2,000 UNIT MoWeFr PRN 07/08 1200 AC IV Fluconazole 400 MG 2200 08/02 2200 AC 08/02 PO 2213 Fluconazole 400 MG 1700 08/02 1700 CAN Sodium Chloride 200 ML IV 08/02 1859 Guaifenesin 600 MG Q12 07/18 1000 AC 08/03 PO 1012 Hydrocortisone 50 MG Q12 08/02 2200 AC 08/03 Sodium Succinate IV 1024 Insulin Aspart 0 AC & AT BEDTIME 08/03 1200 AC SC Insulin Aspart 0 Q4 08/01 1000 DC 08/03 SC 0634 Iron Sucrose 100 MG PER PROTOCL PRN 07/01 1430 AC 07/03 Sodium Chloride 100 ML IV 1221 Morphine Sulfate 1 MG ONCE ONE 08/02 2144 DC 08/02 IV 08/02 214 221 Multivitamins 1 TAB DAILY 07/01 1000 AC 08/02 PO 195 Non-Formulary 0 SEE ADMIN CRITERIA 08/05 1000 CAN Medication ANY Nystatin 1 CHAITANYA TID 07/25 1600 AC 08/03 TOP 1018 Omeprazole 40 MG DAILY AC 07/14 0700 AC 08/03 PO 0634 Oxycodone/ 1 TAB ONCE ONE 08/02 2044 DC 08/02 Acetaminophen PO 08/02 2045 204 Phytonadione 5 MG ONCE ONE 08/02 1845 DC 08/02 PO 08/02 184 204 Prednisone 2.5 MG DAILY 07/31 1000 AC 08/02 PO 08/06 1001 1957 Sevelamer Carbonate 800 MG WITH MEALS 06/30 1200 AC 08/03 PO 1012 Sodium Chloride 2 SPRAY Q10MIN PRN 07/12 0230 AC CARLITOS Sodium Hypochlorite 1 CHAITANYA BID 07/05 1113 AC 08/03 TOP 1018 Sodium Thiosulfate 25 GM MoWeFr 08/05 1400 AC Sodium Chloride 150 ML IV Sodium Thiosulfate 12.5 GM ONCE ONE 08/02 1400 DC Sodium Chloride 100 ML IV 08/02 1459 Tamsulosin HCl 0.4 MG DAILY 07/01 1000 AC 08/02 PO 195 Vancomycin HCl See Dose MoWeFr 08/05 0000 AC Insts (1) IV Vancomycin HCl 1,000 MG ONE ONE 08/02 1915 DC 08/02 Sodium Chloride 250 ML IV 08/02 2014 195 Vitamin A/Vitamin D 1 CHAITANYA BID 06/30 2200 AC 08/03 TOP 1019 Zinc Oxide 1 CHAITANYA BID 06/30 2200 AC 08/03 TOP 1019 Dose Instructions: (1)Vancomycin HCl: DOSE BASED ON RANDOM LEVEL Impression/Plan Impression/Problem List Impression: Patient has greatly improved with stable hemodynamics today with fluid resuscitation. INR was elevated yesterday on previous lab testing with repeat testing demonstrating an INR of 7.22. Patient was assessed for bleeding which was negative. He was given vitamin K to reverse this. This may have been secondary to his decreased PO intake. He is receiving dialysis this evening and will be dosed with multiple medications after treatment. He is continued on steroids per endocrinology. Patient is a general medicine hold with instruction not to readmit to the ICU and to defer use of central lines or pressors. Problem List: -ESRD on HD(M,W,F) -Chronic LLE ulcer -Diabetes Mellitus -APLS, on warfarin (on hold) -Supratherapeutic INR s/p vitamin K Cardiovascular: Patient with multiple medical problems transfered to the ICU for hemodynamic stabilization requiring multiple liters of fluid resuscitation. - Patient now DNR/DNI, no central line, no pressors, do not readmit to ICU - Telemetry cardiac monitoring - Bolus patient as needed to maintain systolic blood pressure > 90 Renal: History of end stage renal disease maintained on hemodialysis every Friday/ Friday/Friday. 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 Rheumatology: Patient with a history of Crohns maintained on daily steroids for prevention of flares. -Prednisone taper Infectious Disease: Fever of unknown origin, patient started on vancomycin, ceftazidime, and fluconazole. These medications are to be administered after dialysis. - Continue antibiotics - Infectious disease consult following - Daily CBC to assess for infection Endocrine: Patient with a history of type type diabetes mellitus. - Solucortef 50mg IV Q12H - Novolog SSI and Levemir - Endocrinology consult following Musculoskeletal: Multiple non healing ulcers. Please inform Dr. Bryan on Fri08/05/16, so patient can get biopsy of his lesions for calciphlaxis on Fri08/07/16 Diet - On renal dialysis diet DVT PPx - mechanical Code status - DNR/DNI, no central line, no pressors, do not readmit to ICU Pain Ratin Tomorrow's Labs & Rationales: CBC bep INR Plan DVT/Prophylaxis: mechanical, pharmacological Code Status: Full Code Problem List: 1. Supratherapeutic INR 2. Diabetes mellitus 3. Acute blood loss anemia 4. Cellulitis of leg, excluding foot Pain Ratin Tomorrow's Labs & Rationales: BEP. CBC, INR - monitor INR, WBC, and Cr Plan DVT/Prophylaxis: mechanical, pharmacological Code Status: Full Code
--- NOTE | 2016-08-03 08:45 | NUR ---
TRANSFERED TO ROOM 201. NOTIFIED SPOUSE OF TRANSFER TO NEW ROOM. PATIENT ALERT ORIENTED X2, BELONGINGS AND MEDICATIONS SENT TO FLOOR. SEE NURSING ASSESSMENT FLOWSHEETS FOR FURTHER DOCUMENTATION.
--- NOTE | 2016-08-03 10:00 | NUR ---
PATIENT TRANSFERED TO UNIT FROM ICU. PATIENT ALERT AND ORIENTATED X2. VSS. CARDIOPULMONARY STABLE. RIGHT CHEST WALL ASHCATH SITE CDI. ORIENTATED TO ROOM. CALL LIGHT IN REACH. WILL MONITOR.
[2016-08-03 10:02] VITALS: BP 130/60
--- NOTE | 2016-08-03 11:19 | PN- Diabetes ---
Assessment/Plan Assessment: The patient has been moved to general medicine and the family does not wish aggressive treatment at this time. The patient is on thickened liquids. IV fluid was discontinued. He is on prednisone 2.5 mg daily. Novolog coverage is ordered as every 4 hours. His FSGs were 193, 232, 182 and 121. Plan: 1. stop Novolog coverage every 4 hours; 2. start Novolog coverage before meals and Novolog coverage at bedtime. 3. monitor FSGs. will follow. Inpatient Diabetes Orders Before Each Meal: Bolus Insulin: Novolog < 80 mg/dl: no coverage 80-100 mg/dl: no coverage 101-120 mg/dl: 2 units 121-150 mg/dl: 2 units 151-200 mg/dl: 3 units 201-250 mg/dl: 4 units 251-300 mg/dl: 5 units 301-350 mg/dl: 6 units 351-400 mg/dl: 7 units > 400 mg/dl: 8 units Bedtime: Bolus Insulin: Novolog < 80 mg/dl: no coverage 80-100 mg/dl: no coverage 101-120 mg/dl: no coverage 121-150 mg/dl: no coverage 151-200 mg/dl: no coverage 201-250 mg/dl: no coverage 251-300 mg/dl: 2 units 301-350 mg/dl: 3 units 351-400 mg/dl: 4 units > 400 mg/dl: 5 units Subjective Subjective: He feels better today. Objective Last 24 Hrs of Vital Signs/I&O Vital Signs Date Time Temp Pulse Resp B/P Pulse O2 O2 Flow FiO2 Ox Delivery Rate 08/03 1012 86 130/60 08/03 1002 97.7 86 20 130/60 93 Room Air Room Air 08/03 0800 97.9 88 18 146/60 94 Room Air 08/03 0000 94 Room Air Room Air 08/02 2257 97.0 102 18 130/62 94 Room Air Room Air 08/02 2214 103 130/62 08/02 1600 99 Nasal 4.0L Cannula 08/02 1600 97.9 93 20 123/74 99 Room Air Intake & Output 08/03 1600 08/03 0800 08/03 0000 Intake Total 100 380 Output Total Balance 100 380 Intake, IV 0 280 Intake, Oral 100 100 Number 2 2 Bowel Movements Findings Pertinent Lab/Avtar Results: Laboratory Tests 08/03 08/03 08/02 0540 0200 2345 Chemistry Sodium (137 - 145 mmol/L) 138 Cancelled 137 Potassium (3.5 - 5.1 mmol/L) 3.8 Cancelled 3.3 L Chloride (98 - 107 mmol/L) 103 Cancelled 102 Carbon Dioxide (22 - 30 mmol/L) 26 Cancelled 25 Anion Gap (5 - 16) 10 Cancelled 11 BUN (9 - 20 mg/dL) 11 Cancelled 7 L Creatinine (0.7 - 1.2 mg/dL) 1.4 H Cancelled 1.2 Estimated GFR (>60 ml/min) 50 L 59 L BUN/Creatinine Ratio (7 - 25 %) Cancelled 5.8 L Glucose (65 - 99 mg/dL) 153 H Calcium (8.4 - 10.2 mg/dL) 7.9 L Phosphorus (2.5 - 4.5 mg/dL) 2.1 L Magnesium (1.6 - 2.3 mg/dL) 1.6 Total Bilirubin (0.2 - 1.3 mg/dL) 0.2 AST (17 - 59 U/L) 13 L ALT (21 - 72 U/L) 22 Albumin (3.5 - 5.0 g/dL) 1.7 L Coagulation PT (9.4 - 12.5 SEC) 33.4 H INR (0.90 - 1.17) 3.22 H Hematology CBC w Diff NO MAN DIFF REQ WBC (4.8 - 10.8 /CUMM) 15.5 H RBC (4.70 - 6.10 /CUMM) 2.76 L Hgb (14.0 - 18.0 G/DL) 7.6 L Hct (42 - 52 %) 24.3 L MCV (80.0 - 94.0 FL) 88.0 MCH (27.0 - 31.0 PG) 27.5 RDW (11.5 - 14.5 %) 19.2 H Plt Count (130 - 400 /CUMM) 351 MPV (7.4 - 10.4 FL) 8.3 Gran % (42.2 - 75.2 %) 94.3 H Lymphocytes % (20.5 - 51.1 %) 2.5 L Monocytes % (1.7 - 9.3 %) 3.1 Eosinophils % (0 - 5 %) 0 Basophils % (0.0 - 2.0 %) 0.1 Absolute Granulocytes (1.4 - 6.5 /CUMM) 14.6 H Absolute Lymphocytes (1.2 - 3.4 /CUMM) 0.4 L Absolute Monocytes (0.10 - 0.60 /CUMM) 0.5 Absolute Eosinophils (0.0 - 0.7 /CUMM) 0 Absolute Basophils (0.0 - 0.2 /CUMM) 0 PUBS MCHC (33.0 - 37.0 G/DL) 31.2 L 08/02 1555 Coagulation PT (9.4 - 12.5 SEC) 74.3 *H INR (0.90 - 1.17) 7.22 *H Toxicology Random Vancomycin (ug/ml) 10.5
[2016-08-03 15:50] VITALS: BP 110/48
[2016-08-04] VITALS: BP 130/68
[2016-08-04 08:19] LABS: ABSOLUTE BASOPHIL COUNT 0 /CUMM (0.0-0.2); ABSOLUTE EOSINOPHIL COUNT 0 /CUMM (0.0-0.7); ABSOLUTE GRANULOCYTE CT 10.3 /CUMM (1.4-6.5); ABSOLUTE LYMPH COUNT 0.5 /CUMM (1.2-3.4); ABSOLUTE MONOCYTE COUNT 0.4 /CUMM (0.10-0.60); BASOPHIL % 0.1 % (0.0-2.0); EOSINOPHIL % 0.1 % (0-5); HEMATOCRIT 26.1 % (42-52); MEAN CORPUSCULAR HGB CONC 30.5 G/DL (33.0-37.0); MEAN CORPUSCULAR VOLUME 88.5 FL (80.0-94.0); MEAN PLATELET VOLUME 8.7 FL (7.4-10.4); PLATELET COUNT 351 /CUMM (130-400); RBC DISTRIBUTION WIDTH 19.2 % (11.5-14.5); RED BLOOD CELL CT 2.95 /CUMM (4.70-6.10); WHITE BLOOD CELL COUNT 11.1 /CUMM (4.8-10.8)
[2016-08-04 08:20] LABS: PT 19.7 SEC (9.4-12.5)
[2016-08-04 08:30] VITALS: BP 130/60
--- NOTE | 2016-08-04 09:01 | PN- Housestaff ---
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 He was drowsy lying in bed in no acute distress. No acute overnight events. Has been afebrile other vitals within normal limits Review of Systems Constitutional: Denies: chills, fever. Cardiovascular: Denies: chest pain, palpitations. Respiratory: Denies: cough, sputum production. Gastrointestinal: Denies: abdominal pain, constipation, diarrhea, nausea, vomiting. Genitourinary: Denies: dysuria, frequency. Objective Last 24 Hrs of Vital Signs/I&O Vital Signs Date Time Temp Pulse Resp B/P Pulse O2 O2 Flow FiO2 Ox Delivery Rate 08/04 829 98.5 72 18 130/60 92 Room Air 08/04 0000 97.8 84 20 130/68 92 08/03 2201 83 122/52 08/03 1550 97.5 87 20 110/48 92 08/03 1222 97.7 86 20 130/60 Intake & Output 08/04 1600 08/04 0800 08/04 0000 Intake Total 240 240 Output Total Balance 240 240 Intake, Oral 240 240 Number 1 2 Bowel Movements Patient 71.441 kg Weight Physical Exam General Appearance: Alert, Oriented X3, Cooperative Cardiovascular: Regular Rate, Normal S1, Normal S2 Lungs: Clear to Auscultation, Normal Air Movement Abdomen: Normal Bowel Sounds, Soft, No Tenderness Extremities: No Clubbing, No Cyanosis, No Edema Current Medications: Current Medications Sig/Kailash Start time Last Medication Dose Route Stop Time Status Admin Acetaminophen 650 MG Q6P PRN 07/22 1700 AC 08/02 PO 1526 Aspirin 81 MG DAILY 07/01 1000 AC 08/03 PO 1012 Atorvastatin Calcium 40 MG 1700 06/30 1700 AC 08/03 PO 1825 Carvedilol 25 MG BID 08/02 2200 AC 08/03 PO 2201 Ceftazidime 1,000 MG Q24 07/31 1930 AC 08/03 IV 1014 Collagenase 1 CHAITANYA DAILY 08/02 1815 AC 08/03 TOP 1021 Epoetin Ludwig 3,000 UNIT MoWeFr PRN 07/08 1200 AC IV Epoetin Ludwig 2,000 UNIT MoWeFr PRN 07/08 1200 AC IV Fluconazole 400 MG 22008/02 2200 AC 08/03 PO 2201 Guaifenesin 600 MG Q12 07/18 1000 AC 08/03 PO 220 Hydrocortisone 50 MG Q12 08/02 2199 AC 08/03 Sodium Succinate IV 2202 Insulin Aspart 0 AC & AT BEDTIME 08/03 1200 AC 08/04 SC 0846 Insulin Detemir 5 UNITS DAILY 08/04 1000 AC SC Iron Sucrose 100 MG PER PROTOCL PRN 07/01 1430 AC 07/03 Sodium Chloride 100 ML IV 1221 Multivitamins 1 TAB DAILY 07/01 1000 AC 08/02 PO 1959 Nystatin 1 CHAITANYA TID 07/25 1600 AC 08/03 TOP 2203 Omeprazole 40 MG DAILY AC 07/14 0700 AC 08/04 PO 0605 Oxycodone/ 2 TAB Q8P PRN 08/04 1015 AC Acetaminophen PO Oxycodone/ 1 TAB ONCE ONE 08/03 2045 DC 08/03 Acetaminophen PO 08/03 2045 2203 Prednisone 2.5 MG DAILY 07/31 1000 AC 08/03 PO 08/06 1001 1222 Sevelamer Carbonate 800 MG WITH MEALS 06/30 1200 AC 08/04 PO 0845 Sodium Chloride 2 SPRAY Q10MIN PRN 07/12 0230 AC CARLITOS Sodium Hypochlorite 1 CHAITANYA BID 07/05 1113 AC 08/03 TOP 2202 Sodium Thiosulfate 25 GM MoWeFr 08/05 1400 AC Sodium Chloride 150 ML IV Tamsulosin HCl 0.4 MG DAILY 07/01 1000 AC 08/03 PO 1222 Vancomycin HCl See Dose MoWeFr 08/05 0000 AC Insts (1) IV Vitamin A/Vitamin D 1 CHAITANYA BID 06/30 2200 AC 08/03 TOP 220 Warfarin Sodium 2.5 MG COUMADIN 1700 ONE 08/04 1700 UNVr PO 08/04 1701 Zinc Oxide 1 CHAITANYA BID 06/30 2200 AC 08/03 TOP 2202 Dose Instructions: (1)Vancomycin HCl: DOSE BASED ON RANDOM LEVEL Last 24 Hrs of Lab/Avtar Results Last 24 Hrs of Labs/Mics: Laboratory Tests 08/04/16 0620: PT 19.7 H, INR 1.89 H, CBC w Diff NO MAN DIFF REQ, RBC 2.95 L, MCV 88.5, MCH 27.0, RDW 19.2 H, MPV 8.7, Gran % 92.2 H, Lymphocytes % 4.1 L, Monocytes % 3.5, Eosinophils % 0.1, Basophils % 0.1, Absolute Granulocytes 10.3 H, Absolute Lymphocytes 0.5 L, Absolute Monocytes 0.4, Absolute Eosinophils 0, Absolute Basophils 0, PUBS MCHC 30.5 L 08/04/16 0615: Anion Gap 12, Estimated GFR 29 L, BUN/Creatinine Ratio 8.6 Assessment/Plan Assessment: 75 y/o M with PMHx of antiphospholipid antibody syndrome, diabetes and CKD who presented with SOB, hoarseness and stridor, found to be uremic with initiation of HD, s/p debridement of chronic left leg ulcer, on IV vancomycin for soft tissue infection, currently awaiting outpatient dialysis slot. Fever of unknown origin: Patient started on vancomycin, ceftazidime, and fluconazole CT abdomen and chest has not revealed any source of infection. ID following, will follow recs. Daily CBC to assess for infection Anemia : Etiology multifactorial. Currently HDS. Per GI anemia likely secondary to other causes then GI. Will have patient follow-up with GI as an outpatient. We'll continue iron supplementation and Epogen. Chronic left lower extremity ulcer: Nonhealing ulcer on left lower extremity along with multiple other ulcers. Will inform Dr. Bryan on Fri08/05/16, so patient can get biopsy of his lesions for calciphlaxis on Fri08/07/16 Antiphospholipid antibody syndrome: chronic right upper extremity DVT. On life- long anti-coagulation with warfarin, takes 5 mg PO QD. * INR goal 2-3, coumadin currently on hold ESRD: Cr was 5 on admission, with gradual increase from 2-3 within the past year. Most likely etiology is progressive diabetic nephropathy. Mj cath was placed and urgent hemodialysis was initiated (06/26) with improvement of mental status. Patient is currently awaiting outpatient dialysis slot. * Nephrology following * Mj Cath in place, Continue HD MWF * Continue sevelamer 800 mg PO TIDAC. 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 T2DM: Uncontrolled blood sugars this admission, secondary to steroids. * Endocrinology following * Levemir 4U SQ DAILY * Continue NovoLog SSI TIDAC as suggested HTN: Takes amlodipine 10 mg PO QD, carvedilol 25 mg PO BID, furosemide 80 mg PO BID and hydralazine 50 mg PO BID at home. * Holding home amlodipine, furosemide and hydralazine. * Continue home carvedilol. Crohn's disease: Patient has been taking prednisone 10 mg PO QD for many years to prevent flares. * prednisone taper currently dose 2.5 mg daily. As per recommendations from GI, tapering 2.5mg for one week then 2.5 on every other day for one week then stop. * Aspirin GI, the patient to remain on aspirin, Protonix needed to be added. * C diff negative Diet: Renal Dialysis Diet (regular and nectar thick liquids) DVT PPx: Warfarin and ALPs CODE: FULL Problem List: 1. Crohns disease 2. Peripheral vascular disease 3. Type 2 diabetes mellitus 4. Chronic ulcer of left lower extremity 5. End stage renal disease Pain Ratin Pain Location: Left lower extremity Pain Goal: Remain pain free Pain Plan: Percocet 2 tabs every 8 P Tylenol Tomorrow's Labs & Rationales: INR for Coumadin dosing ESTELA HEATH,[facility] 08/04/16 1512: Attending MD Review Statement Attending Statement Attending MD Statement: examined this patient, discuss w/resident/PA/CORN PICKER, agreed w/resident/PA/CORN PICKER, discussed with family, reviewed EMR data (avail), discussed with nursing, reviewed images Attending Assessment/Plan: 75-year-old male with a history of chronic kidney disease on hemodialysis, chronic left lower extremity ulcer, uncontrolled diabetes mellitus, is being transferred today from the ICU where he was admitted with hypotension. He was resuscitated with IV fluids and ICU and is being transferred back to the floor. He is spending getting a biopsy of his lesions for calciphylaxis on 08/07/2016. Patient was seen and examined on the bedside and he looks more clinically stable than I ever saw him while he is being admitted. Patient will receive the next HD session on Friday. We'll continue to monitor his fluid overload, nephrology is on board. Patient was started on IV vancomycin, ceftazidime and fluconazole for fever of unknown origin. The vascular surgeon has reviewed the reports on the extremities which are supposedly clean and no surgical intervention needed at this point. ID has also followed up on the patient and recommended to continue with vancomycin and fluconazole after each dialysis, and continue with ceftazidime. Endocrinology is on board. We will continue to monitor. Please does the patient today with Coumadin which has been held due to supratherapeutic INR.
[2016-08-04 09:39] LABS: GRANULOCYTE % 92.2 % (42.2-75.2)
--- NOTE | 2016-08-04 09:50 | PN- Diabetes ---
Assessment/Plan Assessment: The patient has been moved to general medicine and the family does not wish aggressive treatment at this time. The patient is on thickened liquids and his po intake has been improving. IV fluid was discontinued. He is on prednisone 2.5 mg daily. Novolog coverage was changed from every 4 hours to Novolog coverage before meals and Novolog coverage at bedtime. His FSGs were 250, 346, 294, 299 and 356. Plan: 1. restart Levemir 5 units daily given at 10 am 2. adjust Novolog coverage before meals--detail see the inpatient DM order 3. continue the current Novolog coverage at bedtime; 4. monitor FSGs. will follow Inpatient Diabetes Orders Before Each Meal: Bolus Insulin: Novolog < 80 mg/dl: no coverage 80-100 mg/dl: no coverage 101-120 mg/dl: 3 units 121-150 mg/dl: 3 units 151-200 mg/dl: 4 units 201-250 mg/dl: 5 units 251-300 mg/dl: 6 units 301-350 mg/dl: 7 units 351-400 mg/dl: 8 units > 400 mg/dl: 9 units Subjective Subjective: He feels better today Objective Last 24 Hrs of Vital Signs/I&O Vital Signs Date Time Temp Pulse Resp B/P Pulse O2 O2 Flow FiO2 Ox Delivery Rate 08/04 829 98.5 72 18 130/60 92 Room Air 08/04 0000 97.8 84 20 130/68 92 08/03 2201 83 122/52 08/03 1550 97.5 87 20 110/48 92 08/03 1222 97.7 86 20 130/60 Intake & Output 08/04 1600 08/04 0808/04 0000 Intake Total 240 240 Output Total Balance 240 240 Intake, Oral 240 240 Number 1 2 Bowel Movements Patient 158 lb Weight Findings Pertinent Lab/Avtar Results: Laboratory Tests 08/04 08/04 0620 0615 Chemistry Sodium (137 - 145 mmol/L) 139 Potassium (3.5 - 5.1 mmol/L) 4.3 Chloride (98 - 107 mmol/L) 101 Carbon Dioxide (22 - 30 mmol/L) 26 Anion Gap (5 - 16) 12 BUN (9 - 20 mg/dL) 19 Creatinine (0.7 - 1.2 mg/dL) 2.2 H Estimated GFR (>60 ml/min) 29 L BUN/Creatinine Ratio (7 - 25 %) 8.6 Coagulation PT (9.4 - 12.5 SEC) 19.7 H INR (0.90 - 1.17) 1.89 H Hematology CBC w Diff NO MAN DIFF REQ WBC (4.8 - 10.8 /CUMM) 11.1 H RBC (4.70 - 6.10 /CUMM) 2.95 L Hgb (14.0 - 18.0 G/DL) 8.0 L Hct (42 - 52 %) 26.1 L MCV (80.0 - 94.0 FL) 88.5 MCH (27.0 - 31.0 PG) 27.0 RDW (11.5 - 14.5 %) 19.2 H Plt Count (130 - 400 /CUMM) 351 MPV (7.4 - 10.4 FL) 8.7 Gran % (42.2 - 75.2 %) 92.2 H Lymphocytes % (20.5 - 51.1 %) 4.1 L Monocytes % (1.7 - 9.3 %) 3.5 Eosinophils % (0 - 5 %) 0.1 Basophils % (0.0 - 2.0 %) 0.1 Absolute Granulocytes (1.4 - 6.5 /CUMM) 10.3 H Absolute Lymphocytes (1.2 - 3.4 /CUMM) 0.5 L Absolute Monocytes (0.10 - 0.60 /CUMM) 0.4 Absolute Eosinophils (0.0 - 0.7 /CUMM) 0 Absolute Basophils (0.0 - 0.2 /CUMM) 0 PUBS MCHC (33.0 - 37.0 G/DL) 30.5 L
--- NOTE | 2016-08-04 11:06 | PN- Vascular Surgery ---
Surgical Brief Attending Note Brief Attending Note: VASCULAR ATTENDING NOTE: 75-year-old male known to our service. Wound is stable/improving. ? line sepsis with intermittent fever and BP issues. He has multiple medical problems and has been seen on several occasions. He continues to have a left calf wound which demonstrates some necrotic eschar but good granulation tissue now. He is also been having intermittent fevers. Has had some discomfort. He is continually having changes in mental status and has a question of pneumonia. Patient is still on high-dose steroids which is inhibiting wound healing -please readjust and decrease if possible. Called to re-evaluate wound. Physical exam: Afebrile vital signs stable Exam exam reveals lower extremity is well-perfused, does have necrosis at the superior and inferior portion of the wound- there is good granulation tissue now. A/P stable wound - fever ? related to dialysis catheter/line sepsis- could do simple IR catheter exchange ? wound source as pyoderma gangrenosum? As wound is stable/improving no change in current wound management
--- NOTE | 2016-08-04 11:54 | PN- Infect Dx ---
Subjective Subjective: Afebrile on steroids. He offers no complaints. Objective Last 24 Hrs of Vital Signs/I&O Vital Signs Date Time Temp Pulse Resp B/P Pulse O2 O2 Flow FiO2 Ox Delivery Rate 08/04 829 98.5 72 18 130/60 92 Room Air 08/04 0000 97.8 84 20 130/68 92 08/03 2201 83 122/52 08/03 1550 97.5 87 20 110/48 92 08/03 1222 97.7 86 20 130/60 Intake & Output 08/04 1600 08/04 0800 08/04 0000 Intake Total 240 240 Output Total Balance 240 240 Intake, Oral 240 240 Number 1 2 Bowel Movements Patient 158 lb Weight Physical Exam Other Physical Findings: He appears comfortable in no acute distress Chest tunneled catheter in the right upper chest with no inflammation at the site Lungs are clear Heart regular rhythm with no murmur Extremities necrotic lesions over the left thigh, dorsum of left foot and lateral aspect of right leg unchanged, with no new lesions; left calf wound with necrotic edges superiorly and inferiorly Results Last 24 Hours of Lab Results: Laboratory Tests 08/04 08/04 0620 0615 Chemistry Sodium (137 - 145 mmol/L) 139 Potassium (3.5 - 5.1 mmol/L) 4.3 Chloride (98 - 107 mmol/L) 101 Carbon Dioxide (22 - 30 mmol/L) 26 Anion Gap (5 - 16) 12 BUN (9 - 20 mg/dL) 19 Creatinine (0.7 - 1.2 mg/dL) 2.2 H Estimated GFR (>60 ml/min) 29 L BUN/Creatinine Ratio (7 - 25 %) 8.6 Coagulation PT (9.4 - 12.5 SEC) 19.7 H INR (0.90 - 1.17) 1.89 H Hematology CBC w Diff NO MAN DIFF REQ WBC (4.8 - 10.8 /CUMM) 11.1 H RBC (4.70 - 6.10 /CUMM) 2.95 L Hgb (14.0 - 18.0 G/DL) 8.0 L Hct (42 - 52 %) 26.1 L MCV (80.0 - 94.0 FL) 88.5 MCH (27.0 - 31.0 PG) 27.0 RDW (11.5 - 14.5 %) 19.2 H Plt Count (130 - 400 /CUMM) 351 MPV (7.4 - 10.4 FL) 8.7 Gran % (42.2 - 75.2 %) 92.2 H Lymphocytes % (20.5 - 51.1 %) 4.1 L Monocytes % (1.7 - 9.3 %) 3.5 Eosinophils % (0 - 5 %) 0.1 Basophils % (0.0 - 2.0 %) 0.1 Absolute Granulocytes (1.4 - 6.5 /CUMM) 10.3 H Absolute Lymphocytes (1.2 - 3.4 /CUMM) 0.5 L Absolute Monocytes (0.10 - 0.60 /CUMM) 0.4 Absolute Eosinophils (0.0 - 0.7 /CUMM) 0 Absolute Basophils (0.0 - 0.2 /CUMM) 0 PUBS MCHC (33.0 - 37.0 G/DL) 30.5 L Last 24 Hours of [place] Results: Blood cultures July 31 negative Assessment/Plan Impression: Overall improved with temperatures remaining normal (on steroids) and with white blood cell count nearly normal on empiric treatment with Vancomycin and Ceftazidime Day 4 for possible sepsis, though blood cultures remain negative, and Fluconazole Day 5 for candiduria, though with recent urine culture only with 10,000 colonies and with no definite urinary symptoms. He remains on steroids, both prednisone and hydrocortisone. 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 Suggestion: 1. Further management of possible calciphylaxis per Renal 2. Reevaluate need for both prednisone and hydrocortisone 3. Continue Vancomycin after each dialysis per protocol 4. Continue Ceftazidime 5. Continue Fluconazole 400 mg po after every dialysis
[2016-08-04 15:46] VITALS: BP 130/70
[2016-08-04 23:58] VITALS: BP 126/68
--- NOTE | 2016-08-05 07:37 | PN- Housestaff ---
ESTELA HEATH,[facility] 08/05/16 0737: Subjective Follow-up For: Chronic nonhealing left lower extremity ulcer Fever of unknown origin Hypotension Subjective: pt seen and examined this morning. He was lying comfortably in bed in no acute distress. He remains afebrile, the vitals remained within normal limits. He still complains of pain in his lower left extremity. Review of Systems Constitutional: Denies: chills, fever. Cardiovascular: Denies: chest pain, palpitations. Respiratory: Denies: cough, short of breath, sputum production. Gastrointestinal: Denies: abdominal pain, constipation, diarrhea, nausea, vomiting. Objective Last 24 Hrs of Vital Signs/I&O Vital Signs Date Time Temp Pulse Resp B/P Pulse O2 O2 Flow FiO2 Ox Delivery Rate 08/05 1645 98.2 71 20 118/62 91 Room Air 08/05 932 73 142/60 08/05 0833 73 142/60 08/05 0827 97.7 73 20 142/60 94 Room Air 08/05 0000 Room Air 08/04 2358 98.6 68 19 126/68 96 Room Air 08/04 2204 66 130/70 Intake & Output 08/05 1600 08/05 0800 08/05 0000 Intake Total 480 300 100 Output Total 0 100 Balance 480 200 100 Intake, IV 0 Intake, Oral 480 300 100 Number 1 1 1 Bowel Movements Output, Urine 0 100 Patient 71.781 kg Weight Physical Exam General Appearance: Alert, Oriented X3, Cooperative, No Acute Distress Cardiovascular: Regular Rate, Normal S1, Normal S2 Lungs: Clear to Auscultation, Normal Air Movement Abdomen: Normal Bowel Sounds, Soft, No Tenderness Extremities: left lower extremity nonhealing ulcer Current Medications: Current Medications Sig/Kailash Start time Last Medication Dose Route Stop Time Status Admin Acetaminophen 650 MG .STK-MED ONE 08/04 1828 DC PO 08/04 182 Acetaminophen 650 MG Q6P PRN 07/22 1700 AC 08/04 PO 1832 Aspirin 81 MG DAILY 07/01 1000 AC 08/05 PO 0933 Atorvastatin Calcium 40 MG 1700 06/30 1700 AC 08/04 PO 1722 Carvedilol 25 MG BID 08/02 2200 AC 08/05 PO 0933 Ceftazidime 1,000 MG Q24 07/31 1930 AC 08/05 IV 0933 Collagenase 1 CHAITANYA DAILY 08/02 1815 AC 08/05 TOP 1645 Epoetin Ludwig 3,000 UNIT MoWeFr PRN 07/08 1200 AC IV Epoetin Ludwig 2,000 UNIT MoWeFr PRN 07/08 1200 AC IV Fluconazole 400 MG 2200 08/02 2200 AC 08/04 PO 2203 Guaifenesin 600 MG Q12 07/18 1000 AC 08/05 PO 0933 Hydrocortisone 50 MG ONCE ONE 08/05 1000 DC 08/05 Sodium Succinate IV 08/05 1001 0933 Hydrocortisone 50 MG Q12 08/02 2200 DC 08/04 Sodium Succinate IV 2205 Insulin Aspart 0 AC & AT BEDTIME 08/03 1200 AC 08/05 SC 1131 Insulin Detemir 5 UNITS DAILY 08/04 1000 AC 08/05 SC 0844 Iron Sucrose 100 MG PER PROTOCL PRN 07/01 1430 AC 07/03 Sodium Chloride 100 ML IV 1221 Multivitamins 1 TAB DAILY 07/01 1000 AC 08/05 PO 0933 Nystatin 1 CHAITANYA TID 07/25 1600 DC 08/05 TOP 1131 Omeprazole 40 MG DAILY AC 07/14 0700 AC 08/05 PO 0609 Oxycodone/ 2 TAB Q8P PRN 08/04 1015 AC 08/05 Acetaminophen PO 0114 Patient Medication 1 ED .STK-MED ONE 08/05 1350 DC Teaching ED 08/05 1351 Prednisone 5 MG DAILY 08/06 1000 AC PO Prednisone 2.5 MG DAILY 07/31 1000 DC 08/04 PO 08/06 1001 1211 Sevelamer Carbonate 800 MG WITH MEALS 06/30 1200 AC 08/05 PO 1131 Sodium Chloride 2 SPRAY Q10MIN PRN 07/12 0230 AC CARLITOS Sodium Hypochlorite 1 CHAITANYA BID 07/05 1113 AC 08/04 TOP 2204 Sodium Thiosulfate 25 GM MoWeFr 08/05 1400 AC 08/05 Sodium Chloride 150 ML IV 1554 Tamsulosin HCl 0.4 MG DAILY 07/01 1000 AC 08/05 PO 0933 Vancomycin HCl 1,000 MG ONCE ONE 08/05 1800 AC Sodium Chloride 250 ML IV 08/05 1859 Vancomycin HCl See Dose MoWeFr 08/05 0000 AC Insts (1) IV Vitamin A/Vitamin D 1 CHAITANYA BID 06/30 2200 AC 08/05 TOP 0934 Zinc Oxide 1 CHAITANYA BID 06/30 2200 AC 08/05 TOP 0934 Dose Instructions: (1)Vancomycin HCl: DOSE BASED ON RANDOM LEVEL Last 24 Hrs of Lab/[place] Results Last 24 Hrs of Labs/Mics: Laboratory Tests 08/05/16 1211: CBC w Diff NO MAN DIFF REQ, RBC 3.11 L, MCV 88.3, MCH 27.4, RDW 19.4 H, MPV 8.6, Gran % 93.7 H, Lymphocytes % 4.2 L, Monocytes % 1.8, Eosinophils % 0, Basophils % 0.3, Absolute Granulocytes 12.3 H, Absolute Lymphocytes 0.5 L, Absolute Monocytes 0.2, Absolute Eosinophils 0, Absolute Basophils 0, PUBS MCHC 31.1 L, Random Vancomycin 11.7 08/05/16 0600: PT Cancelled, INR Cancelled Assessment/Plan Assessment: 75 y/o M with PMHx of antiphospholipid antibody syndrome, diabetes and CKD who presented with SOB, hoarseness and stridor, found to be uremic with initiation of HD, s/p debridement of chronic left leg ulcer, on IV vancomycin for soft tissue infection, currently awaiting outpatient dialysis slot. Fever of unknown origin: Patient started on vancomycin, ceftazidime, and fluconazole CT abdomen and chest has not revealed any source of infection. ID following, will follow recs. Daily CBC to assess for infection Anemia : Etiology multifactorial. Currently HDS. Per GI anemia likely secondary to other causes then GI. Will have patient follow-up with GI as an outpatient. We'll continue iron supplementation and Epogen. Chronic left lower extremity ulcer: Nonhealing ulcer on left lower extremity along with multiple other ulcers. Will inform Dr. Bryan on Fri08/05/16, so patient can get biopsy of his lesions for calciphlaxis on Fri08/07/16 Antiphospholipid antibody syndrome: chronic right upper extremity DVT. On life- long anti-coagulation with warfarin, takes 5 mg PO QD. * INR goal 2-3, coumadin to be given the other day if INR therapeutic ESRD: Cr was 5 on admission, with gradual increase from 2-3 within the past year. Most likely etiology is progressive diabetic nephropathy. Mj cath was placed and urgent hemodialysis was initiated (06/26) with improvement of mental status. Patient is currently awaiting outpatient dialysis slot. * Nephrology following * Mj Cath in place, Continue HD MWF * Continue sevelamer 800 mg PO TIDAC. 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 T2DM: Uncontrolled blood sugars this admission, secondary to steroids. * Endocrinology following * Levemir 4U SQ DAILY * Continue NovoLog SSI TIDAC as suggested HTN: Takes amlodipine 10 mg PO QD, carvedilol 25 mg PO BID, furosemide 80 mg PO BID and hydralazine 50 mg PO BID at home. * Holding home amlodipine, furosemide and hydralazine. * Continue home carvedilol. Crohn's disease: Patient has been taking prednisone 10 mg PO QD for many years to prevent flares. * prednisone taper currently dose 2.5 mg daily. As per recommendations from GI, tapering 2.5mg for one week then 2.5 on every other day for one week then stop. * Aspirin GI, the patient to remain on aspirin, Protonix needed to be added. * C diff negative Diet: Renal Dialysis Diet (regular and nectar thick liquids) DVT PPx: Warfarin and ALPs CODE: FULL Problem List: 1. Peripheral vascular disease 2. Type 2 diabetes mellitus 3. Antiphospholipid antibody syndrome 4. Chronic ulcer of left lower extremity Pain Ratin Pain Location: Lower left extremity Pain Goal: Remain pain free Pain Plan: Percocet Tomorrow's Labs & Rationales: INR for Coumadin dosing HARRY MORRIS MD 08/05/16 1700: Attending MD Review Statement Attending Statement Attending MD Statement: examined this patient, discuss w/resident/PA/DEFENCE INTELLIGENCE ANALYST, agreed w/resident/PA/DEFENCE INTELLIGENCE ANALYST, reviewed EMR data (avail), discussed with nursing, discussed with case mgmt, amended to note Attending Assessment/Plan: Patient seen and examined. Resting comfortably and not in acute distress. He is significantly more alert than I have seen him in several days. He offers no complaint other than his chronic lower extremity pain. The lower extremity wound on the left lower extremity and the right lower extremity admit to be healing appropriately. Patient appears to have done very well after he was started on Solu Cortef. It is possible that his lethargy, confusion and hypotension were related to tapering of his chronic steroid therapy. I do agree with recommendations from the endocrinology service to maintain patient on 5 mg of prednisone daily once he is weaned off Solu Cortef. We may need to go back TO 10 mg of prednisone if he becomes symptomatic again. For now continue empiric antibiotic therapy started due to concern for sepsis. 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 We'll follow-up with the ID service regarding duration of therapy. Patient has also been started on empiric therapy for calciphylaxis. He is scheduled to undergo biopsy later on this week for a definitive diagnosis.
--- NOTE | 2016-08-05 07:47 | PN- Diabetes ---
Assessment/Plan Assessment: The patient has been moved to general medicine and the family does not wish aggressive treatment at this time. The patient is on thickened liquids and his po intake has been improving. IV fluid was discontinued. He is on prednisone 2.5 mg daily and hydrocortisone 50 mg IV every 12 hours. He is on Levemir 5 units each am and ss Novolog. Blood sugars were high yesterday most likely due to steroids. Fingerstick bl;ood sugar this am is 261. Plan: Suggest reduce hydrocortisone to 50 mg once a day today. Tomorrow begin prednisone 5 mg po each am and stop hydrocortisone. Patient does not need to be on prednisone today. We need to go slowly on tapering po prednisone in view of the hypotension that patient developed when prednisone was reduced previously. At least part of the hypotension was due to relative adrenal insufciiency in a patient on hose seamer steroid therapy with supression of the pituitary adrenal axis. Subjective Subjective: feels improved Review of Systems Constitutional: Denies: chills, fever. Cardiovascular: Denies: chest pain. Respiratory: Denies: short of breath. Gastrointestinal: Denies: abdominal pain. Objective Last 24 Hrs of Vital Signs/I&O Vital Signs Date Time Temp Pulse Resp B/P Pulse O2 O2 Flow FiO2 Ox Delivery Rate 08/05 0000 Room Air 08/04 2357 98.6 68 19 126/68 96 Room Air 08/044 66 130/70 08/04 1546 97.7 66 20 130/70 91 08/04 1211 78 124/58 08/04 1211 78 124/58 08/04 0830 98.5 72 18 130/60 92 Room Air 08/04 0800 94 Room Air Room Air Intake & Output 08/05 0808/05 0000 08/04 1600 Intake Total 339 056 5615 Output Total 100 Balance 040 634 2142 Intake, Oral 202 862 1465 Number 1 1 1 Bowel Movements Output, Urine 100 Patient 158 lb Weight Vital Signs Date Time Temp Pulse Resp B/P Pulse O2 O2 Flow FiO2 Ox Delivery Rate 08/05 0000 Room Air 08/04 2358 98.6 68 19 126/68 96 Room Air 08/04 2204 66 130/70 /08 1546 97.7 66 20 130/70 91 08/04 1211 78 124/58 08/04 1211 78 124/58 08/04 0830 98.5 72 18 130/60 92 Room Air 08/04 0800 94 Room Air Room Air Intake & Output 08/05 0800 08/05 0000 08/04 1600 Intake Total 379 550 3895 Output Total 100 Balance 048 958 8956 Intake, Oral 336 488 5269 Number 1 1 1 Bowel Movements Output, Urine 100 Patient 158 lb Weight Physical Exam General Appearance: alert, awake, comfortable Head: normal appearance Respiratory: normal breath sounds Cardiovascular: regular rate/rhythm Abdomen: normal bowel sounds Skin: intact (left leg bandaged) Current Medications: Current Medications Sig/Kailash Start time Last Medication Dose Route Stop Time Status Admin Acetaminophen 650 MG .STK-MED ONE 08/04 182 DC PO 08/04 1829 Acetaminophen 650 MG Q6P PRN 07/22 1700 AC 08/04 PO 1832 Aspirin 81 MG DAILY 07/01 1000 AC 08/04 PO 1210 Atorvastatin Calcium 40 MG 1700 06/30 1700 AC 08/04 PO 1722 Carvedilol 25 MG BID 08/02 2200 AC 08/04 PO 2204 Ceftazidime 1,000 MG Q24 07/31 1930 AC 08/04 IV 1210 Collagenase 1 CHAITANYA DAILY 08/02 1815 AC 08/04 TOP 1211 Epoetin Ludwig 3,000 UNIT MoWeFr PRN 07/08 1200 AC IV Epoetin Ludwig 2,000 UNIT MoWeFr PRN 07/08 1200 AC IV Fluconazole 400 MG 2200 08/02 2200 AC 08/04 PO 2203 Guaifenesin 600 MG Q12 07/18 1000 AC 08/04 PO 2203 Hydrocortisone 50 MG Q12 08/02 2200 AC 08/04 Sodium Succinate IV 2205 Insulin Aspart 0 AC & AT BEDTIME 08/03 1200 AC 08/04 SC 1721 Insulin Detemir 5 UNITS DAILY 08/04 1000 AC 08/04 SC 1210 Iron Sucrose 100 MG PER PROTOCL PRN 07/01 1430 AC 07/03 Sodium Chloride 100 ML IV 1221 Multivitamins 1 TAB DAILY 07/01 1000 AC 08/04 PO 1211 Nystatin 1 CHAITANYA TID 07/25 1600 AC 08/04 TOP 2206 Omeprazole 40 MG DAILY AC 07/14 0700 AC 08/05 PO 0609 Oxycodone/ 2 TAB Q8P PRN 08/04 1015 AC 08/05 Acetaminophen PO 0114 Prednisone 2.5 MG DAILY 07/31 1000 AC 08/04 PO 08/06 1001 1211 Sevelamer Carbonate 800 MG WITH MEALS 06/30 1200 AC 08/04 PO 1722 Sodium Chloride 2 SPRAY Q10MIN PRN 07/12 0230 AC CARLITOS Sodium Hypochlorite 1 CHAITANYA BID 07/05 1113 AC 08/04 TOP 2204 Sodium Thiosulfate 25 GM MoWeFr 08/05 1400 AC Sodium Chloride 150 ML IV Tamsulosin HCl 0.4 MG DAILY 07/01 1000 AC 08/04 PO 1211 Vancomycin HCl See Dose MoWeFr 08/05 0000 AC Insts (1) IV Vitamin A/Vitamin D 1 CHAITANYA BID 06/30 2200 AC 08/04 TOP 2206 Warfarin Sodium 2.5 MG COUMADIN 1700 ONE 08/04 1700 DC 08/04 PO 08/04 1701 1722 Zinc Oxide 1 CHAITANYA BID 06/30 2200 AC 08/04 TOP 2205 Dose Instructions: (1)Vancomycin HCl: DOSE BASED ON RANDOM LEVEL
[2016-08-05 08:27] VITALS: BP 142/60
--- NOTE | 2016-08-05 11:47 | NUR ---
PATIENT A/FORGETFUL; RA; ATE 50% LUNCH; ACCUCHECK 333 AND COVERED WITH INSULIN PER ORDER; PATIENT OFF FLOOR IN [facility] BED TO DIALYSIS WITH DISTRIBUTION STAFF X 2; CHART AND LAB LABELS SENT WITH PATIENT; DRESSING TO LLE C/D/I; AWAITING RETURN OF PATIENT;
--- NOTE | 2016-08-05 13:19 | PN- Nephrology ---
Assessment/Plan Assessment: 1. ESRD: HD underway - will try to UF 2 liters as BP allows 2. ? calciphylaxis: on thioSO4 & antibiotics; warfarin may be contributing & need to consider d/c. 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 Although no outcome data, pharmokinetic studies suggest low dose apixaban @ 2.5 mg bid provides appropriate Factor Xa inhibition in CKD-5; LMW heparin also need to be reduced - appropriate dose ? 1mg/kg/day. Suggestion: 1. next HD [place] 2. suggest heme consult & card f/u re ? need for continued anticoagulation & options Subjective Subjective: Having diarrhea w/o abd pain No SOB Started thioSO4 for ? calciphylaxis last week --> remains on warfarin Phos low & last PTH <100 Objective Vital Signs and I&Os Vital Signs Date Time Temp Pulse Resp B/P Pulse O2 O2 Flow FiO2 Ox Delivery Rate 08/05 932 73 142/60 08/05 932 73 142/60 08/05 826 97.7 73 20 142/60 94 Room Air 08/05 0000 Room Air 08/04 2358 98.6 68 19 126/68 96 Room Air 08/04 2204 66 130/70 08/04 1546 97.7 66 20 130/70 91 Intake & Output 08/05 1600 08/05 0400 08/04 1600 08/04 0400 08/03 1600 08/03 0400 Intake Total 756 778 7938 240 580 380 Output Total 100 Balance 603 426 2056 240 580 380 Intake, IV 0 280 Intake, Oral 561 412 1114 240 580 100 Number 1 1 2 2 2 2 Bowel Movements Output, Urine 100 Patient 158 lb 158 lb Weight Physical Exam General Appearance: alert, awake Head: atraumatic Neck: R IJ HD cath tunneled subclavian location Respiratory: poor effort Cardiovascular: regular rate/rhythm Abdomen: soft, non-tender Extremities: necrotic lesion L thigh noted Neurologic/Psychiatric: awake, alert Current Medications: Current Medications Sig/Kailash Start time Last Medication Dose Route Stop Time Status Admin Acetaminophen 650 MG .STK-MED ONE 08/04 182 DC PO 08/04 182 Acetaminophen 650 MG Q6P PRN 07/22 1700 AC 08/04 PO 1832 Aspirin 81 MG DAILY 07/01 1000 AC 08/05 PO 0933 Atorvastatin Calcium 40 MG 1700 06/30 1700 AC 08/04 PO 1722 Carvedilol 25 MG BID 08/02 2200 AC 08/05 PO 0933 Ceftazidime 1,000 MG Q24 07/31 1930 AC 08/05 IV 0933 Collagenase 1 CHAITANYA DAILY 08/02 1815 AC 08/04 TOP 1211 Epoetin Ludwig 3,000 UNIT MoWeFr PRN 07/08 1200 AC IV Epoetin Ludwig 2,000 UNIT MoWeFr PRN 07/08 1200 AC IV Fluconazole 400 MG 2200 08/02 2200 AC 08/04 PO 2203 Guaifenesin 600 MG Q12 07/18 1000 AC 08/05 PO 0933 Hydrocortisone 50 MG ONCE ONE 08/05 1000 DC 08/05 Sodium Succinate IV 08/05 1001 0933 Hydrocortisone 50 MG Q12 08/02 2200 DC 08/04 Sodium Succinate IV 2205 Insulin Aspart 0 AC & AT BEDTIME 08/03 1200 AC 08/05 SC 1131 Insulin Detemir 5 UNITS DAILY 08/04 1000 AC 08/05 SC 0844 Iron Sucrose 100 MG PER PROTOCL PRN 07/01 1430 AC 07/03 Sodium Chloride 100 ML IV 1221 Multivitamins 1 TAB DAILY 07/01 1000 AC 08/05 PO 0933 Nystatin 1 CHAITANYA TID 07/25 1600 AC 08/05 TOP 1131 Omeprazole 40 MG DAILY AC 07/14 0700 AC 08/05 PO 0609 Oxycodone/ 2 TAB Q8P PRN 08/04 1015 AC 08/05 Acetaminophen PO 0114 Prednisone 5 MG DAILY 08/06 1000 AC PO Prednisone 2.5 MG DAILY 07/31 1000 DC 08/04 PO 08/06 1001 1211 Sevelamer Carbonate 800 MG WITH MEALS 06/30 1200 AC 08/05 PO 1131 Sodium Chloride 2 SPRAY Q10MIN PRN 07/12 0230 AC CARLITOS Sodium Hypochlorite 1 CHAITANYA BID 07/05 1113 AC 08/04 TOP 2204 Sodium Thiosulfate 25 GM MoWeFr 08/05 1400 AC Sodium Chloride 150 ML IV Tamsulosin HCl 0.4 MG DAILY 07/01 1000 AC 08/05 PO 0933 Vancomycin HCl See Dose MoWeFr 08/05 0000 AC Insts (1) IV Vitamin A/Vitamin D 1 CHAITANYA BID 06/30 2200 AC 08/05 TOP 0934 Warfarin Sodium 2.5 MG COUMADIN 1700 ONE 08/04 1700 DC 08/04 PO 08/04 1701 1722 Zinc Oxide 1 CHAITAYNA BID 06/30 2200 AC 08/05 TOP 0934 Dose Instructions: (1)Vancomycin HCl: DOSE BASED ON RANDOM LEVEL Results Pertinent Lab Results: Laboratory Tests 08/04 08/04 0620 0615 Chemistry Sodium (137 - 145 mmol/L) 139 Potassium (3.5 - 5.1 mmol/L) 4.3 Chloride (98 - 107 mmol/L) 101 Carbon Dioxide (22 - 30 mmol/L) 26 Anion Gap (5 - 16) 12 BUN (9 - 20 mg/dL) 19 Creatinine (0.7 - 1.2 mg/dL) 2.2 H Estimated GFR (>60 ml/min) 29 L BUN/Creatinine Ratio (7 - 25 %) 8.6 Coagulation PT (9.4 - 12.5 SEC) 19.7 H INR (0.90 - 1.17) 1.89 H Hematology CBC w Diff NO MAN DIFF REQ WBC (4.8 - 10.8 /CUMM) 11.1 H RBC (4.70 - 6.10 /CUMM) 2.95 L Hgb (14.0 - 18.0 G/DL) 8.0 L Hct (42 - 52 %) 26.1 L MCV (80.0 - 94.0 FL) 88.5 MCH (27.0 - 31.0 PG) 27.0 RDW (11.5 - 14.5 %) 19.2 H Plt Count (130 - 400 /CUMM) 351 MPV (7.4 - 10.4 FL) 8.7 Gran % (42.2 - 75.2 %) 92.2 H Lymphocytes % (20.5 - 51.1 %) 4.1 L Monocytes % (1.7 - 9.3 %) 3.5 Eosinophils % (0 - 5 %) 0.1 Basophils % (0.0 - 2.0 %) 0.1 Absolute Granulocytes (1.4 - 6.5 /CUMM) 10.3 H Absolute Lymphocytes (1.2 - 3.4 /CUMM) 0.5 L Absolute Monocytes (0.10 - 0.60 /CUMM) 0.4 Absolute Eosinophils (0.0 - 0.7 /CUMM) 0 Absolute Basophils (0.0 - 0.2 /CUMM) 0 PUBS MCHC (33.0 - 37.0 G/DL) 30.5 L 08/03 08/03 08/02 0540 0200 2345 Chemistry Sodium (137 - 145 mmol/L) 138 Cancelled 137 Potassium (3.5 - 5.1 mmol/L) 3.8 Cancelled 3.3 L Chloride (98 - 107 mmol/L) 103 Cancelled 102 Carbon Dioxide (22 - 30 mmol/L) 26 Cancelled 25 Anion Gap (5 - 16) 10 Cancelled 11 BUN (9 - 20 mg/dL) 11 Cancelled 7 L Creatinine (0.7 - 1.2 mg/dL) 1.4 H Cancelled 1.2 Estimated GFR (>60 ml/min) 50 L 59 L BUN/Creatinine Ratio (7 - 25 %) Cancelled 5.8 L Glucose (65 - 99 mg/dL) 153 H Calcium (8.4 - 10.2 mg/dL) 7.9 L Phosphorus (2.5 - 4.5 mg/dL) 2.1 L Magnesium (1.6 - 2.3 mg/dL) 1.6 Total Bilirubin (0.2 - 1.3 mg/dL) 0.2 AST (17 - 59 U/L) 13 L ALT (21 - 72 U/L) 22 Albumin (3.5 - 5.0 g/dL) 1.7 L Coagulation PT (9.4 - 12.5 SEC) 33.4 H INR (0.90 - 1.17) 3.22 H Hematology CBC w Diff NO MAN DIFF REQ WBC (4.8 - 10.8 /CUMM) 15.5 H RBC (4.70 - 6.10 /CUMM) 2.76 L Hgb (14.0 - 18.0 G/DL) 7.6 L Hct (42 - 52 %) 24.3 L MCV (80.0 - 94.0 FL) 88.0 MCH (27.0 - 31.0 PG) 27.5 RDW (11.5 - 14.5 %) 19.2 H Plt Count (130 - 400 /CUMM) 351 MPV (7.4 - 10.4 FL) 8.3 Gran % (42.2 - 75.2 %) 94.3 H Lymphocytes % (20.5 - 51.1 %) 2.5 L Monocytes % (1.7 - 9.3 %) 3.1 Eosinophils % (0 - 5 %) 0 Basophils % (0.0 - 2.0 %) 0.1 Absolute Granulocytes (1.4 - 6.5 /CUMM) 14.6 H Absolute Lymphocytes (1.2 - 3.4 /CUMM) 0.4 L Absolute Monocytes (0.10 - 0.60 /CUMM) 0.5 Absolute Eosinophils (0.0 - 0.7 /CUMM) 0 Absolute Basophils (0.0 - 0.2 /CUMM) 0 PUBS MCHC (33.0 - 37.0 G/DL) 31.2 L 08/02 1555 Coagulation PT (9.4 - 12.5 SEC) 74.3 *H INR (0.90 - 1.17) 7.22 *H Toxicology Random Vancomycin (ug/ml) 10.5
[2016-08-05 14:43] LABS: ABSOLUTE BASOPHIL COUNT 0 /CUMM (0.0-0.2); ABSOLUTE EOSINOPHIL COUNT 0 /CUMM (0.0-0.7); ABSOLUTE GRANULOCYTE CT 12.3 /CUMM (1.4-6.5); ABSOLUTE LYMPH COUNT 0.5 /CUMM (1.2-3.4); ABSOLUTE MONOCYTE COUNT 0.2 /CUMM (0.10-0.60); BASOPHIL % 0.3 % (0.0-2.0); EOSINOPHIL % 0 % (0-5); HEMATOCRIT 27.5 % (42-52); MEAN CORPUSCULAR HGB 27.4 PG (27.0-31.0); MEAN CORPUSCULAR HGB CONC 31.1 G/DL (33.0-37.0); MEAN CORPUSCULAR VOLUME 88.3 FL (80.0-94.0); MEAN PLATELET VOLUME 8.6 FL (7.4-10.4); RBC DISTRIBUTION WIDTH 19.4 % (11.5-14.5); RED BLOOD CELL CT 3.11 /CUMM (4.70-6.10); WHITE BLOOD CELL COUNT 13.1 /CUMM (4.8-10.8)
[2016-08-05 14:59] LABS: GRANULOCYTE % 93.7 % (42.2-75.2)
[2016-08-05 15:00] LABS: PLATELET COUNT 351 /CUMM (130-400)
--- NOTE | 2016-08-05 15:52 | NUR ---
WOUND CARE: PER DR WATKINS, PTS WOUNDS HAD BEEN EVALUATED BY MD TODAY - SEE MD DICTATION
[2016-08-05 16:05] VITALS: BP 116/76
[2016-08-05 16:45] VITALS: BP 118/62
[2016-08-06 00:37] VITALS: BP 138/70
--- NOTE | 2016-08-06 07:40 | PN- Housestaff ---
ESTELA HEATH,[facility] 08/06/16 0740: Subjective Follow-up For: Left lower extremity nonhealing Subjective: Patient seen and examined this morning. He was lying comfortably in bed in no acute distress. He is afebrile vitals normal limits. He continues to have pain in his left lower extremity secondary to nonhealing ulcer, otherwise no complaints. Review of Systems Constitutional: Denies: chills, fever. Cardiovascular: Denies: chest pain, palpitations. Respiratory: Denies: cough, short of breath, sputum production. Gastrointestinal: Denies: abdominal pain, constipation, diarrhea, nausea, vomiting. Objective Last 24 Hrs of Vital Signs/I&O Vital Signs Date Time Temp Pulse Resp B/P Pulse O2 O2 Flow FiO2 Ox Delivery Rate 08/06 1626 97.3 82 20 136/60 92 08/06 1144 Room Air Room Air 08/06 0953 65 140/70 08/06 0952 65 140/70 08/06 0858 97.6 65 20 140/70 93 Room Air 08/06 0037 97.8 66 20 138/70 91 Room Air 08/05 2022 79 142/70 Intake & Output 08/06 1600 08/06 0800 08/06 0000 Intake Total 480 480 Output Total 1999 Balance 480 -1520 Intake, IV 0 Intake, Oral 480 480 Number 1 3 3 Bowel Movements Output, 1999 Dialysate Patient 62.766 kg 59.874 kg Weight Physical Exam General Appearance: Alert, Oriented X3, Cooperative, No Acute Distress Cardiovascular: Regular Rate, Normal S1, Normal S2, No Murmurs Lungs: Clear to Auscultation, Normal Air Movement Abdomen: Normal Bowel Sounds, Soft, No Tenderness Extremities: non healing left lower ext ulcer Current Medications: Current Medications Sig/Kailash Start time Last Medication Dose Route Stop Time Status Admin Acetaminophen 650 MG Q6P PRN 07/22 1700 AC 08/04 PO 1832 Aspirin 81 MG DAILY 07/01 1000 AC 08/06 PO 0953 Atorvastatin Calcium 40 MG 1700 06/30 1700 AC 08/05 PO 1756 Carvedilol 25 MG BID 08/02 2200 AC 08/06 PO 0953 Ceftazidime 1,000 MG Q24 07/31 1930 AC 08/06 IV 0950 Collagenase 1 CHAITANYA DAILY 08/02 1815 AC 08/06 TOP 0954 Epoetin Ludwig 3,000 UNIT MoWeFr PRN 07/08 1200 AC IV Epoetin Ludwig 2,000 UNIT MoWeFr PRN 07/08 1200 AC IV Fluconazole 400 MG 2200 08/02 2200 AC 08/05 PO 2023 Guaifenesin 600 MG Q12 07/18 1000 AC 08/06 PO 0953 Insulin Aspart 0 AC & AT BEDTIME 08/03 1200 AC 08/06 SC 1201 Insulin Detemir 5 UNITS DAILY 08/04 1000 AC 08/06 SC 0950 Iron Sucrose 100 MG PER PROTOCL PRN 07/01 1430 AC 07/03 Sodium Chloride 100 ML IV 1221 Multivitamins 1 TAB DAILY 07/01 1000 AC 08/06 PO 0952 Omeprazole 40 MG DAILY AC 07/14 0700 AC 08/06 PO 0540 Oxycodone/ 2 TAB Q8P PRN 08/04 1015 AC 08/05 Acetaminophen PO 0114 Prednisone 5 MG DAILY 08/06 1000 AC 08/06 PO 0952 Sevelamer Carbonate 800 MG WITH MEALS 06/30 1200 AC 08/06 PO 1201 Sodium Chloride 2 SPRAY Q10MIN PRN 07/12 0230 AC CARLITOS Sodium Hypochlorite 1 CHAITANYA BID 07/05 1113 AC 08/06 TOP 0953 Sodium Thiosulfate 25 GM MoWeFr 08/05 1400 AC 08/05 Sodium Chloride 150 ML IV 1554 Tamsulosin HCl 0.4 MG DAILY 07/01 1000 AC 08/06 PO 0952 Vancomycin HCl 1,000 MG ONCE ONE 08/05 1800 DC 08/05 Sodium Chloride 250 ML IV 08/05 1859 1757 Vancomycin HCl See Dose MoWeFr 08/05 0000 AC Insts (1) IV Vitamin A/Vitamin D 1 CHAITANYA BID 06/30 2200 AC 08/06 TOP 0955 Zinc Oxide 1 CHAITANYA BID 06/30 2200 AC 08/06 TOP 0954 Dose Instructions: (1)Vancomycin HCl: DOSE BASED ON RANDOM LEVEL Last 24 Hrs of Lab/[place] Results Last 24 Hrs of Labs/Mics: Laboratory Tests 08/06/16 0620: Anion Gap 11, Estimated GFR 46 L, BUN/Creatinine Ratio 11.3, PT 34.3 H, INR 3.31 H Assessment/Plan Assessment: 75 y/o M with PMHx of antiphospholipid antibody syndrome, diabetes and CKD who presented with SOB, hoarseness and stridor, found to be uremic with initiation of HD, s/p debridement of chronic left leg ulcer, on IV vancomycin for soft tissue infection, currently awaiting outpatient dialysis slot. Fever of unknown origin: Patient started on vancomycin, ceftazidime, and fluconazole CT abdomen and chest has not revealed any source of infection. ID following, will follow recs. Anemia : Etiology multifactorial. Currently HDS. Per GI anemia likely secondary to other causes then GI. Will have patient follow-up with GI as an outpatient. We'll continue iron supplementation and Epogen. Chronic left lower extremity ulcer: Nonhealing ulcer on left lower extremity along with multiple other ulcers. As per Dr. Pretty, Dr. Bryan we'll do a punch biopsy at that site for diagnoses of calciphylaxis. Antiphospholipid antibody syndrome: chronic right upper extremity DVT. On life- long anti-coagulation with warfarin, takes 5 mg PO QD. * INR goal 2-3, coumadin to be given the other day if INR therapeutic ESRD: Cr was 5 on admission, with gradual increase from 2-3 within the past year. Most likely etiology is progressive diabetic nephropathy. Mj cath was placed and urgent hemodialysis was initiated (06/26) with improvement of mental status. Patient is currently awaiting outpatient dialysis slot. * Nephrology following * Mj Cath in place, Continue HD MWF * Continue sevelamer 800 mg PO TIDAC. 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 T2DM: Uncontrolled blood sugars this admission, secondary to steroids. * Endocrinology following * Levemir 4U SQ DAILY * Continue NovoLog SSI TIDAC as suggested HTN: Takes amlodipine 10 mg PO QD, carvedilol 25 mg PO BID, furosemide 80 mg PO BID and hydralazine 50 mg PO BID at home. * Holding home amlodipine, furosemide and hydralazine. * Continue home carvedilol. Crohn's disease: Patient has been taking prednisone 10 mg PO QD for many years to prevent flares. * prednisone taper currently dose 2.5 mg daily. As per recommendations from GI, tapering 2.5mg for one week then 2.5 on every other day for one week then stop. * Aspirin GI, the patient to remain on aspirin, Protonix needed to be added. * C diff negative Diet: Renal Dialysis Diet (regular and nectar thick liquids) DVT PPx: Warfarin and ALPs CODE: FULL Problem List: 1. Peripheral vascular disease 2. Type 2 diabetes mellitus 3. Chronic ulcer of left lower extremity 4. Antiphospholipid antibody syndrome Pain Ratin Pain Location: left lower ext Pain Goal: Remain pain free Pain Plan: percocet Tomorrow's Labs & Rationales: INR for Coumadin dosing ARTURO HEATHHARRY 08/06/16 1231: Attending MD Review Statement Attending Statement Attending MD Statement: examined this patient, discuss w/resident/PA/MILK DRYING MACHINE OPERATOR, agreed w/resident/PA/MILK DRYING MACHINE OPERATOR, reviewed EMR data (avail), discussed with nursing, discussed with case mgmt, amended to note Attending Assessment/Plan: Patient seen and examined. He remains alert and oriented 3 conversing appropriately. He remains hemodynamically stable and afebrile. No issues reported overnight. We did examine his lower extremity wounds today and he appeared to be healing appropriately. We will continue sodium thiosulfate for his possible calciphylaxis as well as empiric antibiotics as recommended by the ID service. awaiting follow-up from the vascular surgery service for possible skin biopsy tomorrow. If the biopsy is done and calciphylaxis confirmed we will continue sodium thiosulfate on probably change the patient from Coumadin to another anticoagulant as this has been documented to exacerbate the disease process. Unfortunately he continues to require hemodialysis which is also associated with calciphylaxis. His mental status and any level and significantly improved compared to the past 2 weeks. hopefully he will remain in this manner following discontinuation Solu -Cortef and continue patient on 5 mg of prednisone only. If there is any concern about increasing lethargy, confusion or hypotension we will place patient back on 10 mg of prednisone daily.
[2016-08-06 08:56] LABS: PT 34.3 SEC (9.4-12.5)
[2016-08-06 08:58] VITALS: BP 140/70
--- NOTE | 2016-08-06 09:00 | NUR ---
STITCH NOTED TO R UPPER CHEST; ?NEED FOR REMOVAL; MEDICAL TEAM INCLUDING DR MORRIS AT BEDSIDE AND ASSESSED THE AREA; MEDICAL TEAM AWARE OF SINGLE STITCH TO R UPPER CHEST; NO ORDERS AT THIS TIME;
--- NOTE | 2016-08-06 11:37 | PN- Nephrology ---
Assessment/Plan Assessment: 1. ESRD: no HD need today 2. Skin necrosis: ? calciphylaxis ? pyoderma gangrenosum associated w IBD; on thioSO4 & antibiotics as await skin bx. If calciphylaxis confirmed --> would change warfarin to apixaban 3. Recurrent thromboses/anti-phospholipid: strong hx; continue anticoagulation Suggestion: 1. HD tomorrow 2. await skin bx Subjective Subjective: No SOB or cough Plan for skin bx noted Objective Vital Signs and I&Os Vital Signs Date Time Temp Pulse Resp B/P Pulse O2 O2 Flow FiO2 Ox Delivery Rate 08/06 0953 65 140/70 08/06 0952 65 140/70 08/06 0858 97.6 65 20 140/70 93 Room Air 08/06 0037 97.8 66 20 138/70 91 Room Air 08/05 202 79 142/70 08/05 1645 98.2 71 20 118/62 91 Room Air 08/05 1600 91 Room Air Intake & Output 08/06 1600 08/06 0400 08/05 1600 08/05 0400 08/04 1600 08/04 0400 Intake Total 480 291 681 3102 240 Output Total 1999 100 Balance -1520 932 416 0166 240 Intake, IV 0 Intake, Oral 480 718 599 4244 240 Number 3 3 2 1 2 2 Bowel Movements Output, 1999 Dialysate Output, Urine 100 Patient 138 lb 132 lb 158 lb 158 lb Weight Physical Exam General Appearance: well developed/nourished, no apparent distress Head: atraumatic Ears, Nose, Throat: normal ENT inspection Neck: normal inspection, R IJ HD cath Respiratory: quiet respiration, decreased breath sounds (right) Cardiovascular: regular rate/rhythm Abdomen: soft, non-tender Extremities: no edema Skin: rash (necrotic R thigh lesions) Current Medications: Current Medications Sig/Kailash Start time Last Medication Dose Route Stop Time Status Admin Acetaminophen 650 MG Q6P PRN 07/22 1700 AC 08/04 PO 1832 Aspirin 81 MG DAILY 07/01 1000 AC 08/06 PO 0953 Atorvastatin Calcium 40 MG 1700 06/30 1700 AC 08/05 PO 1756 Carvedilol 25 MG BID 08/02 2200 AC 08/06 PO 0953 Ceftazidime 1,000 MG Q24 07/31 1930 AC 08/06 IV 0950 Collagenase 1 CHAITANYA DAILY 08/02 1815 AC 01/10 TOP 0954 Epoetin Ludwig 3,000 UNIT MoWeFr PRN 07/08 1200 AC IV Epoetin Ludwig 2,000 UNIT MoWeFr PRN 07/08 1200 AC IV Fluconazole 400 MG 2200 08/02 2200 AC 08/05 PO 2023 Guaifenesin 600 MG Q12 07/18 1000 AC 08/06 PO 0953 Insulin Aspart 0 AC & AT BEDTIME 08/03 1200 AC 08/06 SC 0950 Insulin Detemir 5 UNITS DAILY 08/04 1000 AC 08/06 SC 0950 Iron Sucrose 100 MG PER PROTOCL PRN 07/01 1430 AC 07/03 Sodium Chloride 100 ML IV 1221 Multivitamins 1 TAB DAILY 07/01 1000 AC 08/06 PO 0952 Nystatin 1 CHAITANYA TID 07/25 1600 DC 08/05 TOP 1131 Omeprazole 40 MG DAILY AC 07/14 0700 AC 08/06 PO 0540 Oxycodone/ 2 TAB Q8P PRN 08/04 1015 AC 08/05 Acetaminophen PO 0114 Patient Medication 1 ED .STK-MED ONE 08/05 1350 DC Teaching ED 08/05 1351 Prednisone 5 MG DAILY 08/06 1000 AC 08/06 PO 0952 Sevelamer Carbonate 800 MG WITH MEALS 06/30 1200 AC 08/06 PO 0953 Sodium Chloride 2 SPRAY Q10MIN PRN 07/12 0230 AC CARLITOS Sodium Hypochlorite 1 CHAITANYA BID 07/05 1113 AC 08/06 TOP 0953 Sodium Thiosulfate 25 GM MoWeFr 08/05 1400 AC 08/05 Sodium Chloride 150 ML IV 1554 Tamsulosin HCl 0.4 MG DAILY 07/01 1000 AC 08/06 PO 0952 Vancomycin HCl 1,000 MG ONCE ONE 08/05 1800 DC 08/05 Sodium Chloride 250 ML IV 08/05 1859 1757 Vancomycin HCl See Dose MoWeFr 08/05 0000 AC Insts (1) IV Vitamin A/Vitamin D 1 CHAITANYA BID 06/30 2200 AC 08/06 TOP 0955 Zinc Oxide 1 CHAITANYA BID 06/30 220 AC 08/06 TOP 0954 Dose Instructions: (1)Vancomycin HCl: DOSE BASED ON RANDOM LEVEL Results Pertinent Lab Results: Laboratory Tests 08/06 08/05 08/05 0620 1356 1211 Chemistry Sodium (137 - 145 mmol/L) 139 Cancelled Potassium (3.5 - 5.1 mmol/L) 3.9 Cancelled Chloride (98 - 107 mmol/L) 100 Cancelled Carbon Dioxide (22 - 30 mmol/L) 28 Cancelled Anion Gap (5 - 16) 11 Cancelled BUN (9 - 20 mg/dL) 17 Cancelled Creatinine (0.7 - 1.2 mg/dL) 1.5 H Cancelled Estimated GFR (>60 ml/min) 46 L BUN/Creatinine Ratio (7 - 25 %) 11.3 Cancelled Coagulation PT (9.4 - 12.5 SEC) 34.3 H INR (0.90 - 1.17) 3.31 H Hematology CBC w Diff NO MAN DIFF REQ WBC (4.8 - 10.8 /CUMM) 13.1 H RBC (4.70 - 6.10 /CUMM) 3.11 L Hgb (14.0 - 18.0 G/DL) 8.5 L Hct (42 - 52 %) 27.5 L MCV (80.0 - 94.0 FL) 88.3 MCH (27.0 - 31.0 PG) 27.4 RDW (11.5 - 14.5 %) 19.4 H Plt Count (130 - 400 /CUMM) 351 MPV (7.4 - 10.4 FL) 8.6 Gran % (42.2 - 75.2 %) 93.7 H Lymphocytes % (20.5 - 51.1 %) 4.2 L Monocytes % (1.7 - 9.3 %) 1.8 Eosinophils % (0 - 5 %) 0 Basophils % (0.0 - 2.0 %) 0.3 Absolute Granulocytes (1.4 - 6.5 /CUMM) 12.3 H Absolute Lymphocytes (1.2 - 3.4 /CUMM) 0.5 L Absolute Monocytes (0.10 - 0.60 /CUMM) 0.2 Absolute Eosinophils (0.0 - 0.7 /CUMM) 0 Absolute Basophils (0.0 - 0.2 /CUMM) 0 PUBS MCHC (33.0 - 37.0 G/DL) 31.1 L Toxicology Random Vancomycin (ug/ml) 11.7 08/0508 0600 0620 0615 Chemistry Sodium (137 - 145 mmol/L) 139 Potassium (3.5 - 5.1 mmol/L) 4.3 Chloride (98 - 107 mmol/L) 101 Carbon Dioxide (22 - 30 mmol/L) 26 Anion Gap (5 - 16) 12 BUN (9 - 20 mg/dL) 19 Creatinine (0.7 - 1.2 mg/dL) 2.2 H Estimated GFR (>60 ml/min) 29 L BUN/Creatinine Ratio (7 - 25 %) 8.6 Coagulation PT (9.4 - 12.5 SEC) Cancelled 19.7 H INR (0.90 - 1.17) Cancelled 1.89 H Hematology CBC w Diff NO MAN DIFF REQ WBC (4.8 - 10.8 /CUMM) 11.1 H RBC (4.70 - 6.10 /CUMM) 2.95 L Hgb (14.0 - 18.0 G/DL) 8.0 L Hct (42 - 52 %) 26.1 L MCV (80.0 - 94.0 FL) 88.5 MCH (27.0 - 31.0 PG) 27.0 RDW (11.5 - 14.5 %) 19.2 H Plt Count (130 - 400 /CUMM) 351 MPV (7.4 - 10.4 FL) 8.7 Gran % (42.2 - 75.2 %) 92.2 H Lymphocytes % (20.5 - 51.1 %) 4.1 L Monocytes % (1.7 - 9.3 %) 3.5 Eosinophils % (0 - 5 %) 0.1 Basophils % (0.0 - 2.0 %) 0.1 Absolute Granulocytes (1.4 - 6.5 /CUMM) 10.3 H Absolute Lymphocytes (1.2 - 3.4 /CUMM) 0.5 L Absolute Monocytes (0.10 - 0.60 /CUMM) 0.4 Absolute Eosinophils (0.0 - 0.7 /CUMM) 0 Absolute Basophils (0.0 - 0.2 /CUMM) 0 PUBS MCHC (33.0 - 37.0 G/DL) 30.5 L
[2016-08-06 16:26] VITALS: BP 136/60
--- NOTE | 2016-08-06 18:28 | PN- Infect Dx ---
Subjective Subjective: Afebrile on steroids. He does admit to dysuria upon questioning. Objective Last 24 Hrs of Vital Signs/I&O Vital Signs Date Time Temp Pulse Resp B/P Pulse O2 O2 Flow FiO2 Ox Delivery Rate 08/06 1626 97.3 82 20 136/60 92 08/06 1144 Room Air Room Air 08/06 0953 65 140/70 08/06 0952 65 140/70 08/06 0858 97.6 65 20 140/70 93 Room Air 08/06 0037 97.8 66 20 138/70 91 Room Air 08/05 2022 79 142/70 Intake & Output 08/06 1600 08/06 0800 08/06 0000 Intake Total 480 480 Output Total 1999 Balance 480 -1520 Intake, IV 0 Intake, Oral 480 480 Number 1 3 3 Bowel Movements Output, 1999 Dialysate Patient 138 lb 132 lb Weight Physical Exam Other Physical Findings: He is awake and alert, appearing comfortable, in no acute distress Chest tunneled catheter in the right upper chest with no inflammation at the site Lungs decreased breath sounds bilaterally Abdomen is soft, nontender with positive bowel sounds Extremities no new necrotic skin lesions Results Last 24 Hours of Lab Results: Laboratory Tests 08/06 06 Chemistry Sodium (137 - 145 mmol/L) 139 Potassium (3.5 - 5.1 mmol/L) 3.9 Chloride (98 - 107 mmol/L) 100 Carbon Dioxide (22 - 30 mmol/L) 28 Anion Gap (5 - 16) 11 BUN (9 - 20 mg/dL) 17 Creatinine (0.7 - 1.2 mg/dL) 1.5 H Estimated GFR (>60 ml/min) 46 L BUN/Creatinine Ratio (7 - 25 %) 11.3 Coagulation PT (9.4 - 12.5 SEC) 34.3 H INR (0.90 - 1.17) 3.31 H Last 24 Hours of [place] Results: No recent cultures Assessment/Plan Impression: Overall improved with temperatures remaining normal (on steroids) and with his most recent white blood cell count decreased, though slightly elevated from the previous value, possibly secondary to the steroids. He remains on empiric treatment with Vancomycin and Ceftazidime Day 6 for possible sepsis and Fluconazole Day 7 for candiduria, though the significance of this culture remains unclear, especially with his persistent urinary symptoms. He is scheduled for a skin biopsy in the a.m. to rule out calciphylaxis, though he has already been started on sodium thiosulfate. Suggestion: 1. Repeat urine culture 2. Await skin biopsy in the a.m. 3. Discontinue Vancomycin and Ceftazidime after tomorrow's doses 4. Continue Fluconazole 400 mg po after every dialysis
[2016-08-06 23:40] VITALS: BP 136/62
--- NOTE | 2016-08-07 07:56 | PN- Diabetes ---
Assessment/Plan Assessment: The patient has been moved to general medicine and the family does not wish aggressive treatment at this time. The patient is on thickened liquids and his po intake has been improving. Patient states he feels improved. He states he is eating much better than before. He is awaiting dialysis today. The patient is apparently scheduled for a skin biopsy. There are other issues which are still open-ended including whether the skin lesions is related to calciphylaxix versus pyoderma gangrenosum as mentioned and Harjit's note, This would alter his current therapy. 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 With regard to his steroid therapy the patient is doing well on prednisone 5 mg once a day. He has not developed any hypotension. Plan: Suggest continue the present insulin therapy. Continue prednisone 5 mg once a day. We should consider keeping the patient in the hospital until a skin biopsy is done and read to help direct further treatment of the patient's skin lesions. In addition a dermatology consult would be helpful once the biopsy is done. Subjective Subjective: feels improved Objective Last 24 Hrs of Vital Signs/I&O Vital Signs Date Time Temp Pulse Resp B/P Pulse O2 O2 Flow FiO2 Ox Delivery Rate 08/06 2340 97.7 68 18 136/62 94 Room Air 08/06 2151 73 122/62 08/06 1626 97.3 82 20 136/60 92 08/06 1144 Room Air Room Air 08/06 0953 65 140/70 08/06 0952 65 140/70 08/06 0858 97.6 65 20 140/70 93 Room Air Intake & Output 08/07 0000 08/06 1600 Intake Total 60 500 480 Output Total Balance 60 500 480 Intake, IV 0 Intake, Oral 60 500 480 Number 1 1 Bowel Movements Patient 150 lb Weight Vital Signs Date Time Temp Pulse Resp B/P Pulse O2 O2 Flow FiO2 Ox Delivery Rate 08/06 2340 97.7 68 18 136/62 94 Room Air 08/06 2151 73 122/62 08/06 1626 97.3 82 20 136/60 92 08/06 1144 Room Air Room Air 08/06 0953 65 140/70 08/06 0952 65 140/70 08/06 0858 97.6 65 20 140/70 93 Room Air Intake & Output 08/07 0000 08/06 1600 Intake Total 60 500 480 Output Total Balance 60 500 480 Intake, IV 0 Intake, Oral 60 500 480 Number 1 1 Bowel Movements Patient 150 lb Weight Physical Exam General Appearance: alert, awake, comfortable Head: normal appearance Neck: normal inspection Respiratory: normal breath sounds Cardiovascular: regular rate/rhythm Abdomen: normal bowel sounds Extremities: Left leg bandage. Blackened area on the dorsum of left foot. Current Medications: Current Medications Sig/Kailash Start time Last Medication Dose Route Stop Time Status Admin Acetaminophen 650 MG Q6P PRN 07/22 1700 AC 08/04 PO 1832 Aspirin 81 MG DAILY 07/01 1000 AC 08/06 PO 0953 Atorvastatin Calcium 40 MG 1700 06/30 1700 AC 08/06 PO 1722 Carvedilol 25 MG BID 08/02 2200 AC 08/06 PO 2152 Ceftazidime 1,000 MG Q24 07/31 1930 DC 08/06 IV 0950 Collagenase 1 CHAITANYA DAILY 08/02 1815 08/06 TOP 0954 Epoetin Ludwig 3,000 UNIT MoWeFr PRN 07/08 1200 AC IV Epoetin Ludwig 2,000 UNIT MoWeFr PRN 07/08 1200 AC IV Fluconazole 400 MG 2200 08/02 2200 AC 08/06 PO 2152 Guaifenesin 600 MG Q12 07/18 1000 AC 08/06 PO 2152 Insulin Aspart 0 AC & AT BEDTIME 08/03 1200 AC 08/06 SC 1722 Insulin Detemir 5 UNITS DAILY 08/04 1000 AC 08/06 SC 0950 Iron Sucrose 100 MG PER PROTOCL PRN 07/01 1430 AC 07/03 Sodium Chloride 100 ML IV 1221 Multivitamins 1 TAB DAILY 07/01 1000 AC 08/06 PO 0952 Omeprazole 40 MG DAILY AC 07/14 0700 AC 08/07 PO 0546 Oxycodone/ 2 TAB Q8P PRN 08/04 1015 AC 08/07 Acetaminophen PO 0011 Prednisone 5 MG DAILY 08/06 1000 AC 08/06 PO 0952 Sevelamer Carbonate 800 MG WITH MEALS 06/30 1200 AC 08/06 PO 1722 Sodium Chloride 2 SPRAY Q10MIN PRN 07/12 0230 AC CARLITOS Sodium Hypochlorite 1 CHAITANYA BID 07/05 1113 AC 08/06 TOP 2151 Sodium Thiosulfate 25 GM MoWeFr 08/05 1400 AC 08/05 Sodium Chloride 150 ML IV 1554 Tamsulosin HCl 0.4 MG DAILY 07/01 1000 AC 08/06 PO 0952 Vancomycin HCl See Dose MoWeFr 08/05 0000 DC Insts (1) IV Vitamin A/Vitamin D 1 CHAITANYA BID 06/30 2200 AC 08/06 TOP 215 Zinc Oxide 1 CHAITANYA BID 06/30 2200 AC 08/06 TOP 215 Dose Instructions: (1)Vancomycin HCl: DOSE BASED ON RANDOM LEVEL
[2016-08-07 08:03] VITALS: BP 142/62
--- NOTE | 2016-08-07 08:54 | PN- Housestaff ---
ESTELA HEATH,[facility] 08/07/16 0854: Subjective Follow-up For: Left lower extremity nonhealing Subjective: Patient seen and examined this morning. He was lying comfortably in bed in no acute distress. He is afebrile vitals normal limits. He continues to have pain in his left lower extremity secondary to nonhealing ulcer, he is scheduled for dialysis today. Review of Systems Constitutional: Denies: chills, fever. Cardiovascular: Denies: chest pain, palpitations. Respiratory: Denies: cough, short of breath, sputum production. Gastrointestinal: Denies: abdominal pain, constipation, distention, nausea, vomiting. Musculoskeletal: Reports: see HPI. Objective Last 24 Hrs of Vital Signs/I&O Vital Signs Date Time Temp Pulse Resp B/P Pulse O2 O2 Flow FiO2 Ox Delivery Rate 08/07 913 70 142/62 08/07 0914 70 142/62 08/07 0803 97.8 70 20 142/62 91 Room Air 08/06 2340 97.7 68 18 136/62 94 Room Air 08/06 2152 73 122/62 08/06 1626 97.3 82 20 136/60 92 Intake & Output 08/07 1600 08/07 0800 08/07 0000 Intake Total 480 120 500 Output Total 351 100 Balance 129 20 500 Intake, IV 0 Intake, Oral 480 120 500 Number 1 1 Bowel Movements Output, Stool 1 Output, Urine 350 100 Patient 68.039 kg Weight Physical Exam General Appearance: Alert, Oriented X3, Cooperative, No Acute Distress Cardiovascular: Regular Rate, Normal S1, Normal S2 Lungs: Clear to Auscultation, Normal Air Movement Abdomen: Normal Bowel Sounds, Soft, No Tenderness Extremities: left lower ext non healing ulcer Current Medications: Current Medications Sig/Kailash Start time Last Medication Dose Route Stop Time Status Admin Acetaminophen 650 MG Q6P PRN 07/22 1700 AC 08/04 PO 1832 Aspirin 81 MG DAILY 07/01 1000 AC 08/07 PO 0914 Atorvastatin Calcium 40 MG 1700 06/30 1700 AC 08/06 PO 1722 Carvedilol 25 MG BID 08/02 2200 AC 08/07 PO 0914 Ceftazidime 1,000 MG ONCE ONE 08/07 220 AC IV 08/07 220 Ceftazidime 1,000 MG Q24 07/31 1930 DC 08/06 IV 0950 Collagenase 1 CHAITANYA DAILY 08/02 1815 AC 08/07 TOP 1418 Epoetin Ludwig 3,000 UNIT MoWeFr PRN 07/08 1200 AC IV Epoetin Ludwig 2,000 UNIT MoWeFr PRN 07/08 1200 AC IV Fluconazole 400 MG 2200 08/02 2200 AC 08/06 PO 2152 Guaifenesin 600 MG Q12 07/18 1000 AC 08/07 PO 0914 Insulin Aspart 0 AC & AT BEDTIME 08/03 1200 AC 08/07 SC 1229 Insulin Detemir 5 UNITS DAILY 08/04 1000 AC 08/07 SC 0826 Iron Sucrose 100 MG PER PROTOCL PRN 07/01 1430 AC 07/03 Sodium Chloride 100 ML IV 1221 Multivitamins 1 TAB DAILY 07/01 1000 AC 08/07 PO 0914 Omeprazole 40 MG DAILY AC 07/14 0700 AC 08/07 PO 0546 Oxycodone/ 2 TAB Q8P PRN 08/04 1015 AC 08/07 Acetaminophen PO 0921 Prednisone 5 MG DAILY 08/06 1000 AC 08/07 PO 0914 Sevelamer Carbonate 800 MG WITH MEALS 06/30 1200 AC 08/07 PO 1229 Sodium Chloride 2 SPRAY Q10MIN PRN 07/12 0230 AC CARLITOS Sodium Hypochlorite 1 CHAITANYA BID 07/05 1113 AC 08/07 TOP 1059 Sodium Thiosulfate 25 GM MoWeFr 08/05 1400 AC 08/05 Sodium Chloride 150 ML IV 1554 Tamsulosin HCl 0.4 MG DAILY 07/01 1000 AC 08/07 PO 0914 Vancomycin HCl See Dose MoWeFr 08/05 0000 DC Insts (1) IV Vitamin A/Vitamin D 1 CHAITANYA BID 06/30 2200 AC 08/07 TOP 0915 Zinc Oxide 1 CHAITANYA BID 06/30 2200 AC 08/07 TOP 0914 Dose Instructions: (1)Vancomycin HCl: DOSE BASED ON RANDOM LEVEL Last 24 Hrs of Lab/[place]tar Results Last 24 Hrs of Labs/Mics: Laboratory Tests 08/07/16 0600: PT Cancelled, INR Cancelled Microbiology 08/07 06 URINE ROUT: Urine Culture - RECD 08/06 1943 URINE ROUT: Urine Culture - CAN Cancelled: Cancelled via OE: Per Decision 08/06 183 URINE ROUT: Urine Culture - CAN Cancelled: Cancelled via OE: Per Decision Assessment/Plan Assessment: 75 y/o M with PMHx of antiphospholipid antibody syndrome, diabetes and CKD who presented with SOB, hoarseness and stridor, found to be uremic with initiation of HD, s/p debridement of chronic left leg ulcer, on IV vancomycin for soft tissue infection, currently awaiting outpatient dialysis slot. Fever of unknown origin: Continue fluconazole 400mg PO after every dialysis. CT abdomen and chest has not revealed any source of infection. ID following, will follow recs. Anemia : Etiology multifactorial. Currently HDS. Per GI anemia likely secondary to other causes then GI. Will have patient follow-up with GI as an outpatient. We'll continue iron supplementation and Epogen. Chronic left lower extremity ulcer: Nonhealing ulcer on left lower extremity along with multiple other ulcers. As per Dr. Pretty, Dr. Bryan we'll do a punch biopsy at that site for diagnoses of calciphylaxis. Antiphospholipid antibody syndrome: chronic right upper extremity DVT. On life- long anti-coagulation with warfarin, takes 5 mg PO QD. * Coumadin on hold, will wait for INR to come down to 2.5, patient has to go for a biopsy and fistula placement for dialysis and needs to be started on IV heparin once INR 2.5. ESRD: Cr was 5 on admission, with gradual increase from 2-3 within the past year. Most likely etiology is progressive diabetic nephropathy. Jm cath was placed and urgent hemodialysis was initiated (06/26) with improvement of mental status. Patient is currently awaiting outpatient dialysis slot. * Nephrology following * Mj Cath in place, Continue HD MWF * Continue sevelamer 800 mg PO TIDAC. 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 T2DM: Uncontrolled blood sugars this admission, secondary to steroids. * Endocrinology following * Levemir 4U SQ DAILY * Continue NovoLog SSI TIDAC as suggested HTN: Takes amlodipine 10 mg PO QD, carvedilol 25 mg PO BID, furosemide 80 mg PO BID and hydralazine 50 mg PO BID at home. * Holding home amlodipine, furosemide and hydralazine. * Continue home carvedilol. Crohn's disease: Patient has been taking prednisone 10 mg PO QD for many years to prevent flares. * prednisone 5 mg daily. If patient at any time gets hypotensive, given a stress dose of steroid followed by increasing dose of prednisone to 10 mg daily * Aspirin GI, the patient to remain on aspirin, Protonix needed to be added. * C diff negative Diet: Renal Dialysis Diet (regular and nectar thick liquids) DVT PPx: Warfarin and ALPs CODE: FULL Problem List: 1. Diabetes mellitus 2. CKD (chronic kidney disease) 3. Anemia 4. Supratherapeutic INR 5. Antiphospholipid antibody syndrome 6. Chronic ulcer of left lower extremity Pain Ratin Pain Location: Lower extremity nonhealing ulcer Pain Goal: Remain pain free Pain Plan: Percocet Tomorrow's Labs & Rationales: INR ARTURO HEATH,HARRY 08/07/16 1442: Attending MD Review Statement Attending Statement Attending MD Statement: examined this patient, discuss w/resident/PA/CEMETERY COUNSELOR, agreed w/resident/PA/CEMETERY COUNSELOR, reviewed EMR data (avail), discussed with nursing, discussed with case mgmt, reviewed images, amended to note Attending Assessment/Plan: Patient seen and examined. Remains alert and oriented 3. Conversing appropriately. No new issues today. His diet was advanced yesterday after reevaluation by the speech and swallow therapist. Case was discussed in detail with the nephrology service. Recommendations are for patient to remain in the hospital until he has a permanent dialysis access placed. Suggestion is that he will not be accepted for outpatient hemodialysis if he does not have a permanent access in place. This has been discussed with the vascular surgery service. Patient will be scheduled for permanent dialysis access placement next week. Currently patient remains afebrile hemodynamically stable. Antibiotics will be discontinued today as recommended by the ID service. We'll culture patient on prednisone 5 mg daily and monitor his tolerance of this dose. Recommendations: -Please confirm from the vascular surgery service to date and time for fistula placement. -Recommend holding Coumadin with monitoring of his INR daily. -Once INR is below 2.5 recommend bridging patient with IV heparin until the day of surgery. -Vascular surgery service plans to do lower extremity biopsy to rule out calciphylaxis at the time of fistula placement. This will help in deciding if patient should resume Coumadin postoperatively or some order oral anticoagulant. -Continue patient on 5 mg of prednisone daily. If he becomes hypotensive or lethargic recommend increasing dose to 10 mg daily.
--- NOTE | 2016-08-07 09:35 | PN- Nephrology ---
Assessment/Plan Assessment: 1. ESRD: HD later today 2. Skin necrosis: ? calciphylaxis ? pyoderma gangrenosum associated w IBD; on thioSO4 & antibiotics as await skin bx. If calciphylaxis confirmed --> change warfarin to apixaban 3. Recurrent thromboses/anti-phospholipid: strong hx; continue anticoagulation Suggestion: 1. HD as above 2. still needs permamnt access/AVF creation prior to discharge w appropriate periop anticoagulation coverage 2. await skin bx Subjective Subjective: Eating - no SOB Still painful leg lesions - for bx later today Antibiotcs completed last evening Objective Vital Signs and I&Os Vital Signs Date Time Temp Pulse Resp B/P Pulse O2 O2 Flow FiO2 Ox Delivery Rate 08/07 913 70 142/62 08/07 0914 70 142/62 08/07 0803 97.8 70 20 142/62 91 Room Air 08/06 2340 97.7 68 18 136/62 94 Room Air 08/06 2152 73 122/62 08/06 1626 97.3 82 20 136/60 92 08/06 1144 Room Air Room Air 08/06 0953 65 140/70 08/06 0952 65 140/70 Intake & Output 08/07 1600 08/07 0400 08/06 1600 08/06 0400 08/05 1600 08/05 0400 Intake Total 60 560 480 480 780 100 Output Total 100 1999 100 Balance -40 560 480 -1520 680 100 Intake, IV 0 0 Intake, Oral 60 560 480 480 780 100 Number 1 4 3 2 1 Bowel Movements Output, 2000 Dialysate Output, Urine 100 100 Patient 150 lb 138 lb 132 lb 158 lb Weight Physical Exam General Appearance: no apparent distress, alert Head: atraumatic Ears, Nose, Throat: normal ENT inspection Neck: R IJ tunneled HD cath Cardiovascular: regular rate/rhythm, friction rub (no rub) Abdomen: soft, non-tender, no organomegaly Extremities: no change necrotic lesions L thigh; L ft dressed Neurologic/Psychiatric: awake, alert Current Medications: Current Medications Sig/Kailash Start time Last Medication Dose Route Stop Time Status Admin Acetaminophen 650 MG Q6P PRN 07/22 1700 AC 08/04 PO 1832 Aspirin 81 MG DAILY 07/01 1000 AC 08/07 PO 0914 Atorvastatin Calcium 40 MG 1700 06/30 1700 AC 08/06 PO 1722 Carvedilol 25 MG BID 08/02 2200 AC 08/07 PO 0914 Ceftazidime 1,000 MG Q24 07/31 1930 DC 08/06 IV 0950 Collagenase 1 CHAITANYA DAILY 08/02 1815 AC 08/06 TOP 0954 Epoetin Ludwig 3,000 UNIT MoWeFr PRN 07/08 1200 AC IV Epoetin Ludwig 2,000 UNIT MoWeFr PRN 07/08 1200 AC IV Fluconazole 400 MG 2200 08/02 2200 AC 08/06 PO 2152 Guaifenesin 600 MG Q12 07/18 1000 AC 08/07 PO 0914 Insulin Aspart 0 AC & AT BEDTIME 08/03 1200 AC 08/07 SC 0827 Insulin Detemir 5 UNITS DAILY 08/04 1000 AC 08/07 SC 0826 Iron Sucrose 100 MG PER PROTOCL PRN 07/01 1430 AC 07/03 Sodium Chloride 100 ML IV 1221 Multivitamins 1 TAB DAILY 07/01 1000 AC 08/07 PO 0914 Omeprazole 40 MG DAILY AC 07/14 0700 AC 08/07 PO 0546 Oxycodone/ 2 TAB Q8P PRN 08/04 1015 AC 08/07 Acetaminophen PO 0921 Prednisone 5 MG DAILY 08/06 1000 AC 08/07 PO 0914 Sevelamer Carbonate 800 MG WITH MEALS 06/30 1200 AC 08/07 PO 0914 Sodium Chloride 2 SPRAY Q10MIN PRN 07/12 0230 AC CARLITOS Sodium Hypochlorite 1 CHAITANYA BID 07/05 1113 AC 08/06 TOP 2151 Sodium Thiosulfate 25 GM MoWeFr 08/05 1400 AC 08/05 Sodium Chloride 150 ML IV 1554 Tamsulosin HCl 0.4 MG DAILY 07/01 1000 AC 08/07 PO 0914 Vancomycin HCl See Dose MoWeFr 08/05 0000 DC Insts (1) IV Vitamin A/Vitamin D 1 CHAITANYA BID 06/30 2200 AC 08/07 TOP 0915 Zinc Oxide 1 CHAITANYA BID 06/30 2200 AC 08/07 TOP 0914 Dose Instructions: (1)Vancomycin HCl: DOSE BASED ON RANDOM LEVEL Results Pertinent Lab Results: Laboratory Tests 08/06 08/05 08/05 0620 1356 1211 Chemistry Sodium (137 - 145 mmol/L) 139 Cancelled Potassium (3.5 - 5.1 mmol/L) 3.9 Cancelled Chloride (98 - 107 mmol/L) 100 Cancelled Carbon Dioxide (22 - 30 mmol/L) 28 Cancelled Anion Gap (5 - 16) 11 Cancelled BUN (9 - 20 mg/dL) 17 Cancelled Creatinine (0.7 - 1.2 mg/dL) 1.5 H Cancelled Estimated GFR (>60 ml/min) 46 L BUN/Creatinine Ratio (7 - 25 %) 11.3 Cancelled Coagulation PT (9.4 - 12.5 SEC) 34.3 H INR (0.90 - 1.17) 3.31 H Hematology CBC w Diff NO MAN DIFF REQ WBC (4.8 - 10.8 /CUMM) 13.1 H RBC (4.70 - 6.10 /CUMM) 3.11 L Hgb (14.0 - 18.0 G/DL) 8.5 L Hct (42 - 52 %) 27.5 L MCV (80.0 - 94.0 FL) 88.3 MCH (27.0 - 31.0 PG) 27.4 RDW (11.5 - 14.5 %) 19.4 H Plt Count (130 - 400 /CUMM) 351 MPV (7.4 - 10.4 FL) 8.6 Gran % (42.2 - 75.2 %) 93.7 H Lymphocytes % (20.5 - 51.1 %) 4.2 L Monocytes % (1.7 - 9.3 %) 1.8 Eosinophils % (0 - 5 %) 0 Basophils % (0.0 - 2.0 %) 0.3 Absolute Granulocytes (1.4 - 6.5 /CUMM) 12.3 H Absolute Lymphocytes (1.2 - 3.4 /CUMM) 0.5 L Absolute Monocytes (0.10 - 0.60 /CUMM) 0.2 Absolute Eosinophils (0.0 - 0.7 /CUMM) 0 Absolute Basophils (0.0 - 0.2 /CUMM) 0 PUBS MCHC (33.0 - 37.0 G/DL) 31.1 L Toxicology Random Vancomycin (ug/ml) 11.7 01/09 0600 Coagulation PT Cancelled INR Cancelled
[2016-08-07 16:10] VITALS: BP 140/68
--- NOTE | 2016-08-07 16:36 | PN- Infect Dx ---
Subjective Subjective: Afebrile without complaints Objective Last 24 Hrs of Vital Signs/I&O Vital Signs Date Time Temp Pulse Resp B/P Pulse O2 O2 Flow FiO2 Ox Delivery Rate 08/07 0814 70 142/62 08/07 0914 70 142/62 08/07 0803 97.8 70 20 142/62 91 Room Air 08/06 2340 97.7 68 18 136/62 94 Room Air 08/06 2152 73 122/62 Intake & Output 08/07 1600 08/07 0800 08/07 0000 Intake Total 480 120 500 Output Total 351 100 Balance 129 20 500 Intake, IV 0 Intake, Oral 480 120 500 Number 1 1 Bowel Movements Output, Stool 1 Output, Urine 350 100 Patient 150 lb Weight Physical Exam Other Physical Findings: He appears comfortable in no acute distress Chest tunneled catheter in the right upper chest with no inflammation at the site Extremities left calf ulcer clean with necrotic edges superiorly and inferiorly; necrotic lesions over the left thigh, dorsal aspect of left foot and right leg unchanged, mildly tender to palpation Results Last 24 Hours of Lab Results: Laboratory Tests 08/07 599 Coagulation PT Cancelled INR Cancelled Last 24 Hours of [place]tar Results: Urine culture August 07 pending Assessment/Plan Impression: Stable with temperatures remaining normal (on steroids) and with a mild leukocytosis, overall improved from last week, status post a 7 day course of Vancomycin and Ceftazidime, begun empirically because of the concern for sepsis, though blood cultures have remained negative. He remains on Fluconazole Day 8 for candiduria, which is of unclear significance. He was scheduled for a skin biopsy to rule out calciphylaxis, but this has been deferred because of his elevated INR. Have discussed with Vascular surgery and Renal, with the recommendation made to place patient on Heparin, proceed with the skin biopsy, once his INR has decreased, and placement of a fistula for dialysis. Suggestion: 1. Follow-up repeat urine culture 2. Await skin biopsy 3. Discontinue Vancomycin and Ceftazidime 4. Continue Fluconazole 400 mg po after every dialysis
[2016-08-07 17:11] LABS: ABSOLUTE BASOPHIL COUNT 0 /CUMM (0.0-0.2); ABSOLUTE EOSINOPHIL COUNT 0.1 /CUMM (0.0-0.7); ABSOLUTE GRANULOCYTE CT 9.6 /CUMM (1.4-6.5); ABSOLUTE LYMPH COUNT 0.6 /CUMM (1.2-3.4); ABSOLUTE MONOCYTE COUNT 0.7 /CUMM (0.10-0.60); BASOPHIL % 0.1 % (0.0-2.0); EOSINOPHIL % 1.2 % (0-5); HEMATOCRIT 25.3 % (42-52); MEAN CORPUSCULAR HGB 27.8 PG (27.0-31.0); MEAN CORPUSCULAR HGB CONC 31.4 G/DL (33.0-37.0); MEAN CORPUSCULAR VOLUME 88.4 FL (80.0-94.0); MEAN PLATELET VOLUME 8.1 FL (7.4-10.4); PLATELET COUNT 317 /CUMM (130-400); RBC DISTRIBUTION WIDTH 19.7 % (11.5-14.5); RED BLOOD CELL CT 2.87 /CUMM (4.70-6.10); WHITE BLOOD CELL COUNT 11.1 /CUMM (4.8-10.8)
[2016-08-07 17:24] LABS: GRANULOCYTE % 86.9 % (42.2-75.2)
[2016-08-07 20:00] VITALS: BP 142/68
--- NOTE | 2016-08-07 23:08 | NUR ---
PT BACK FROM DIALYSIS AT ABOUT 1999. VSS. BP 140/68, 66, 98.1,18, 93% RA. PT WEIGHT IS 146.8. PT A/FORGETFULL AT TIMES. DRESSINGS TO COCCYX AND LLE CHANGED WHEN BACK. PT CURRENTLY RESTING COMFORTABLY IN BED.
[2016-08-07 23:43] VITALS: BP 138/72
--- NOTE | 2016-08-08 07:24 | PN- Housestaff ---
ESTELA HEATH,[facility] 08/08/16 0723: Subjective Follow-up For: Left lower extremity nonhealing Subjective: Patient seen and examined this morning. He was lying comfortably in bed in no acute distress. He is afebrile vitals normal limits. He continues to have pain in his left lower extremity secondary to nonhealing ulcer, he is to get medical and cardiac clearance today for AV fistula placement for dialysis, also venous mapping. Review of Systems Constitutional: Denies: chills, fever. Cardiovascular: Denies: chest pain, palpitations. Respiratory: Denies: cough, short of breath. Gastrointestinal: Denies: abdominal pain, constipation, diarrhea, nausea, vomiting. Objective Last 24 Hrs of Vital Signs/I&O Vital Signs Date Time Temp Pulse Resp B/P Pulse O2 O2 Flow FiO2 Ox Delivery Rate 08/08 1707 97.8 80 18 130/64 93 Room Air 08/08 0841 80 124/70 08/08 0840 80 124/70 08/08 0800 93 Room Air 08/08 0749 97.7 81 18 124/71 93 Room Air 08/07 2343 98.1 72 18 138/72 92 Room Air 08/07 2052 66 142/68 08/07 2000 98.1 84 18 142/68 93 Room Air Intake & Output 08/08 1600 08/08 0800 08/08 0000 Intake Total 1000 120 180 Output Total 200 Balance 800 120 180 Intake, IV 30 Intake, Oral 1000 120 150 Number 1 2 Bowel Movements Output, Urine 200 Patient 68.946 kg Weight Physical Exam General Appearance: Alert, Oriented X3, Cooperative, No Acute Distress Cardiovascular: Regular Rate, Normal S1, Normal S2, No Murmurs Lungs: Clear to Auscultation, Normal Air Movement Abdomen: Normal Bowel Sounds, Soft, No Tenderness Extremities: No Clubbing, No Cyanosis, lle non healing ulcer Current Medications: Current Medications Sig/Kailash Start time Last Medication Dose Route Stop Time Status Admin Acetaminophen 650 MG Q6P PRN 07/22 1700 AC 08/08 PO 1153 Apixaban 5 MG BID 08/08 1745 UNVr PO Aspirin 81 MG DAILY 07/01 1000 AC 08/08 PO 0840 Atorvastatin Calcium 40 MG 1700 06/30 1700 AC 08/07 PO 205 Carvedilol 25 MG BID 08/02 2200 AC 08/08 PO 0841 Ceftazidime 1,000 MG ONCE ONE 08/07 2200 CAN IV 08/07 2201 Collagenase 1 CHAITANYA DAILY 08/02 1815 AC 08/08 TOP 1156 Epoetin Ludwig 3,000 UNIT MoWeFr PRN 07/08 1200 AC IV Epoetin Ludwig 2,000 UNIT MoWeFr PRN 07/08 1200 AC IV Fluconazole 400 MG MoWeFr@08/07 AC 08/07 PO 205 Guaifenesin 600 MG Q12 07/18 1000 AC 08/08 PO 0841 Heparin Sodium 25,000 UNIT Q24H 08/08 1445 DC (Porcine) IV Sodium Chloride 500 ML Insulin Aspart 0 AC & AT BEDTIME 08/03 1200 AC 08/08 SC 1153 Insulin Detemir 5 UNITS DAILY 08/04 1000 AC 08/08 SC 0841 Iron Sucrose 100 MG PER PROTOCL PRN 07/01 1430 AC 07/03 Sodium Chloride 100 ML IV 1221 Multivitamins 1 TAB DAILY 07/01 1000 AC 08/08 PO 0841 Omeprazole 40 MG DAILY AC 07/14 0700 AC 08/08 PO 0545 Oxycodone/ 2 TAB Q8P PRN 08/04 1015 AC 08/08 Acetaminophen PO 0602 Prednisone 5 MG DAILY 08/06 1000 AC 08/08 PO 0841 Sevelamer Carbonate 800 MG WITH MEALS 06/30 1200 AC 08/08 PO 1155 Sodium Chloride 2 SPRAY Q10MIN PRN 07/12 0230 AC CARLITOS Sodium Hypochlorite 1 CHAITANYA BID 07/05 1113 AC 08/08 TOP 1156 Sodium Thiosulfate 25 GM MoWeFr 08/05 1400 AC 08/05 Sodium Chloride 150 ML IV 1554 Tamsulosin HCl 0.4 MG DAILY 07/01 1000 AC 08/08 PO 0840 Vitamin A/Vitamin D 1 CHAITANYA BID 06/30 2200 AC 08/08 TOP 1156 Zinc Oxide 1 CHAITANYA BID 06/30 2200 AC 08/08 TOP 1156 Last 24 Hrs of Lab/[place]tar Results Last 24 Hrs of Labs/Mics: Laboratory Tests 08/08/16 1732: APTT Cancelled 08/08/16 1030: PT 18.7 H, INR 1.79 H Assessment/Plan Assessment: 75 y/o M with PMHx of antiphospholipid antibody syndrome, diabetes and CKD who presented with SOB, hoarseness and stridor, found to be uremic with initiation of HD, s/p debridement of chronic left leg ulcer, on IV vancomycin for soft tissue infection, currently awaiting outpatient dialysis slot. Fever of unknown origin: Continue fluconazole 400mg PO after every dialysis. CT abdomen and chest has not revealed any source of infection. ID following, will follow recs. Anemia : Etiology multifactorial. Currently HDS. Per GI anemia likely secondary to other causes then GI. Will have patient follow-up with GI as an outpatient. We'll continue iron supplementation and Epogen. Chronic left lower extremity ulcer: Nonhealing ulcer on left lower extremity along with multiple other ulcers. As per Dr. Pretty, Dr. Bryan we'll do a punch biopsy at that site for diagnoses of calciphylaxis. Antiphospholipid antibody syndrome: chronic right upper extremity DVT. On life- long anti-coagulation with warfarin, takes 5 mg PO QD. * Coumadin on hold, INR sub therapeutic ESRD: Cr was 5 on admission, with gradual increase from 2-3 within the past year. Most likely etiology is progressive diabetic nephropathy. Mj cath was placed and urgent hemodialysis was initiated (06/26) with improvement of mental status. Patient is currently awaiting outpatient dialysis slot. * Nephrology following * Mj Cath in place, Continue HD MWF * Continue sevelamer 800 mg PO TIDAC. 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 T2DM: Uncontrolled blood sugars this admission, secondary to steroids. * Endocrinology following * Levemir 4U SQ DAILY * Continue NovoLog SSI TIDAC as suggested HTN: Takes amlodipine 10 mg PO QD, carvedilol 25 mg PO BID, furosemide 80 mg PO BID and hydralazine 50 mg PO BID at home. * Holding home amlodipine, furosemide and hydralazine. * Continue home carvedilol. Crohn's disease: Patient has been taking prednisone 10 mg PO QD for many years to prevent flares. * prednisone 5 mg daily. If patient at any time gets hypotensive, given a stress dose of steroid followed by increasing dose of prednisone to 10 mg daily * Aspirin GI, the patient to remain on aspirin, Protonix needed to be added. * C diff negative Diet: Renal Dialysis Diet (regular and nectar thick liquids) DVT PPx: Warfarin and ALPs CODE: FULL Problem List: 1. Crohns disease 2. Peripheral vascular disease 3. Bilateral vocal cord paralysis Pain Ratin Pain Location: right lower ext Pain Goal: Remain pain free Pain Plan: percocet Tomorrow's Labs & Rationales: inr for coumadin dosing BLACKWELLFABIOLA KRISHNAMURTHYTRISTAN 08/09/16 1632: Attending MD Review Statement Attending Statement Attending MD Statement: examined this patient, discuss w/resident/PA/RESEARCH GREENHOUSE SUPERVISOR, agreed w/resident/PA/RESEARCH GREENHOUSE SUPERVISOR, discussed with family, reviewed EMR data (avail), discussed with nursing, discussed with case mgmt Attending Assessment/Plan: please see my attending note for more details. Nephrology thinks the pt should not be put on eliquis for now till the skin biopsy is done and should be switched from coumadin to eliquis only if he has calciphylaxis. d/w pt and his the care plan.
[2016-08-08 07:49] VITALS: BP 124/71
--- NOTE | 2016-08-08 07:57 | PN- Diabetes ---
Assessment/Plan Assessment: The patient has been moved to general medicine and the family does not wish aggressive treatment at this time. The patient is on thickened liquids and his po intake has been improving. Patient states he feels improved. He states he is eating much better than before. The patient is apparently scheduled for a skin biopsy. Apparently surgery is on hold until his INR comes down. There are other issues which are still open- ended including whether the skin lesions are related to calciphylaxis versus pyoderma gangrenosum as mentioned and Harjit's note, This would alter his current therapy. 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 With regard to his steroid therapy the patient is doing well on prednisone 5 mg once a day. He has not developed any hypotension. Fingerstick blood sugars yesterday were 146 before breakfast, 166 before lunch, 199 before dinner, and 117 at bedtime. This morning his fingerstick blood sugar is 95. Plan: Suggest continue the present insulin. The patient needs to have a fistula created and also a biopsy with regard to the lesion on his leg. Subjective Subjective: Feels OK. Objective Last 24 Hrs of Vital Signs/I&O Vital Signs Date Time Temp Pulse Resp B/P Pulse O2 O2 Flow FiO2 Ox Delivery Rate 08/08 0649 97.7 81 18 124/71 93 Room Air 08/07 2342 98.1 72 18 138/72 92 Room Air 08/07 2051 66 142/68 08/07 1999 98.1 84 18 142/68 93 Room Air 08/07 1610 140/68 08/07 0914 70 142/62 08/07 0914 70 142/62 08/07 0803 97.8 70 20 142/62 91 Room Air Intake & Output 08/08 0800 08/08 0000 08/07 1600 Intake Total 120 180 480 Output Total 351 Balance 120 180 129 Intake, IV 30 0 Intake, Oral 120 150 480 Number 2 1 Bowel Movements Output, Stool 1 Output, Urine 350 Patient 152 lb Weight Vital Signs Date Time Temp Pulse Resp B/P Pulse O2 O2 Flow FiO2 Ox Delivery Rate 08/08 0749 97.7 81 18 124/71 93 Room Air 08/07 2343 98.1 72 18 138/72 92 Room Air 08/07 2051 66 142/68 08/07 1999 98.1 84 18 142/68 93 Room Air 08/07 1610 140/68 08/07 0914 70 142/62 08/07 0914 70 142/62 08/07 0803 97.8 70 20 142/62 91 Room Air Intake & Output 08/08 0800 08/08 0000 08/07 1600 Intake Total 120 180 480 Output Total 351 Balance 120 180 129 Intake, IV 30 0 Intake, Oral 120 150 480 Number 2 1 Bowel Movements Output, Stool 1 Output, Urine 350 Patient 152 lb Weight Physical Exam General Appearance: awake, lethargic Head: normal appearance Respiratory: normal breath sounds Cardiovascular: regular rate/rhythm Extremities: normal inspection Current Medications: Current Medications Sig/Kailash Start time Last Medication Dose Route Stop Time Status Admin Acetaminophen 650 MG Q6P PRN 07/22 1700 AC 08/04 PO 1832 Aspirin 81 MG DAILY 07/01 1000 AC 08/07 PO 913 Atorvastatin Calcium 40 MG 1700 06/30 1700 AC 08/07 PO 2051 Carvedilol 25 MG BID 08/02 2200 AC 08/07 PO 2051 Ceftazidime 1,000 MG ONCE ONE 08/07 2199 CAN IV 08/07 220 Collagenase 1 CHAITANYA DAILY 08/02 1815 AC 08/07 TOP 1418 Epoetin Ludwig 3,000 UNIT MoWeFr PRN 07/08 1200 AC IV Epoetin Ludwig 2,000 UNIT MoWeFr PRN 07/08 1200 AC IV Fluconazole 400 MG MoWeFr@2000 08/07 2000 AC 08/07 PO 2051 Fluconazole 400 MG 2200 08/02 2200 DC 08/06 PO 215 Guaifenesin 600 MG Q12 07/18 1000 AC 08/07 PO 2052 Insulin Aspart 0 AC & AT BEDTIME 08/03 1200 AC 08/07 [place] 1229 Insulin Detemir 5 UNITS DAILY 08/04 1000 AC 08/07 SC 0826 Iron Sucrose 100 MG PER PROTOCL PRN 07/01 1430 AC 07/03 Sodium Chloride 100 ML IV 1221 Multivitamins 1 TAB DAILY 07/01 1000 AC 08/07 PO 09 Omeprazole 40 MG DAILY AC 07/14 0700 AC 08/08 PO 0545 Oxycodone/ 2 TAB Q8P PRN 08/04 1015 AC 08/08 Acetaminophen PO 0602 Prednisone 5 MG DAILY 08/06 1000 AC 08/07 PO 0914 Sevelamer Carbonate 800 MG WITH MEALS 06/30 1200 AC 08/07 PO 2051 Sodium Chloride 2 SPRAY Q10MIN PRN 07/12 0230 AC CARLITOS Sodium Hypochlorite 1 CHAITANYA BID 07/05 1113 AC 08/07 TOP 2052 Sodium Thiosulfate 25 GM MoWeFr 08/05 1400 AC 08/05 Sodium Chloride 150 ML IV 1554 Tamsulosin HCl 0.4 MG DAILY 07/01 1000 AC 08/07 PO 0914 Vitamin A/Vitamin D 1 CHAITANYA BID 06/30 2200 AC 08/07 Zinc Oxide 1 CHAITANYA BID 06/30 2200 AC 08/07 Findings Pertinent Lab/[facility] Results: Laboratory Tests 08/07 1415 Chemistry Sodium (137 - 145 mmol/L) 138 Potassium (3.5 - 5.1 mmol/L) 4.1 Chloride (98 - 107 mmol/L) 101 Carbon Dioxide (22 - 30 mmol/L) 28 Anion Gap (5 - 16) 9 BUN (9 - 20 mg/dL) 27 H Creatinine (0.7 - 1.2 mg/dL) 2.3 H Estimated GFR (>60 ml/min) 28 L BUN/Creatinine Ratio (7 - 25 %) 11.7 Calcium (8.4 - 10.2 mg/dL) 7.2 L Phosphorus (2.5 - 4.5 mg/dL) 2.3 L Magnesium (1.6 - 2.3 mg/dL) 1.4 L Albumin (3.5 - 5.0 g/dL) 1.8 L Hematology CBC w Diff NO MAN DIFF REQ WBC (4.8 - 10.8 /CUMM) 11.1 H RBC (4.70 - 6.10 /CUMM) 2.87 L Hgb (14.0 - 18.0 G/DL) 8.0 L Hct (42 - 52 %) 25.3 L MCV (80.0 - 94.0 FL) 88.4 MCH (27.0 - 31.0 PG) 27.8 RDW (11.5 - 14.5 %) 19.7 H Plt Count (130 - 400 /CUMM) 317 MPV (7.4 - 10.4 FL) 8.1 Gran % (42.2 - 75.2 %) 86.9 H Lymphocytes % (20.5 - 51.1 %) 5.6 L Monocytes % (1.7 - 9.3 %) 6.2 Eosinophils % (0 - 5 %) 1.2 Basophils % (0.0 - 2.0 %) 0.1 Absolute Granulocytes (1.4 - 6.5 /CUMM) 9.6 H Absolute Lymphocytes (1.2 - 3.4 /CUMM) 0.6 L Absolute Monocytes (0.10 - 0.60 /CUMM) 0.7 H Absolute Eosinophils (0.0 - 0.7 /CUMM) 0.1 Absolute Basophils (0.0 - 0.2 /CUMM) 0 PUBS MCHC (33.0 - 37.0 G/DL) 31.4 L
[2016-08-08 11:14] LABS: PT 18.7 SEC (9.4-12.5)
--- NOTE | 2016-08-08 11:14 | PN- Nephrology ---
Assessment/Plan Assessment: 1. ESRD: no HD need today; needs AVF/G creation 2. Skin necrosis: ? calciphylaxis ? pyoderma gangrenosum associated w IBD; on thioSO4 as await skin bx --> if calciphylaxis confirmed --> change warfarin to apixaban 3. Recurrent thromboses/anti-phospholipid: strong hx; continue anticoagulation Suggestion: 1. HD tomorrow 2. vasc surg f/u for AVF/G creation 3. skin bx Prob will need warfarin held w periop heparin bridge for skin bx & AVF/G Subjective Subjective: No complaints this morning Skin bx not done yesterday cause INR too hi Remains bed bound No fever off antibiotics Objective Vital Signs and I&Os Vital Signs Date Time Temp Pulse Resp B/P Pulse O2 O2 Flow FiO2 Ox Delivery Rate 08/08 0841 80 124/70 08/08 0840 80 124/70 08/08 0800 93 Room Air 08/08 0749 97.7 81 18 124/71 93 Room Air 08/07 2343 98.1 72 18 138/72 92 Room Air 08/07 2051 66 142/68 08/07 1999 98.1 84 18 142/68 93 Room Air 08/07 1610 140/68 Intake & Output 08/08 1600 08/08 0400 08/07 1600 08/07 0400 08/06 1600 08/06 0400 Intake Total 120 180 540 560 480 480 Output Total 451 1999 Balance 120 180 89 560 480 -1520 Intake, IV 30 0 0 Intake, Oral 120 150 540 560 480 480 Number 2 1 1 4 3 Bowel Movements Output, 2000 Dialysate Output, Stool 1 Output, Urine 450 Patient 152 lb 150 lb 138 lb 132 lb Weight Physical Exam General Appearance: no apparent distress, alert Head: atraumatic Neck: R IJ cath Respiratory: quiet respiration, lungs clear Cardiovascular: regular rate/rhythm Abdomen: soft, non-tender, no organomegaly Extremities: no edema Skin: rash (no change) Current Medications: Current Medications Sig/Kailash Start time Last Medication Dose Route Stop Time Status Admin Acetaminophen 650 MG Q6P PRN 07/22 1700 AC 08/04 PO 1832 Aspirin 81 MG DAILY 07/01 1000 AC 08/08 PO 0840 Atorvastatin Calcium 40 MG 1700 06/30 1700 AC 08/07 PO 205 Carvedilol 25 MG BID 08/02 2200 AC 08/08 PO 0841 Ceftazidime 1,000 MG ONCE ONE 08/07 2200 CAN IV 08/07 220 Collagenase 1 CHAITANYA DAILY 08/02 1815 AC 08/07 TOP 1418 Epoetin Ludwig 3,000 UNIT MoWeFr PRN 07/08 1200 AC IV Epoetin Ludwig 2,000 UNIT MoWeFr PRN 07/08 1200 AC IV Fluconazole 400 MG MoWeFr@08/07 AC 08/07 PO 205 Fluconazole 400 MG 22008/02 2200 DC 08/06 PO 215 Guaifenesin 600 MG Q12 07/18 1000 AC 08/08 PO 0841 Insulin Aspart 0 AC & AT BEDTIME 08/03 1200 AC 08/07 SC 1229 Insulin Detemir 5 UNITS DAILY 08/04 1000 AC 08/08 SC 0841 Iron Sucrose 100 MG PER PROTOCL PRN 07/01 1430 AC 07/03 Sodium Chloride 100 ML IV 1221 Multivitamins 1 TAB DAILY 07/01 1000 AC 08/08 PO 0841 Omeprazole 40 MG DAILY AC 07/14 0700 AC 08/08 PO 0545 Oxycodone/ 2 TAB Q8P PRN 08/04 1015 AC 08/08 Acetaminophen PO 0602 Prednisone 5 MG DAILY 08/06 1000 AC 08/08 PO 0841 Sevelamer Carbonate 800 MG WITH MEALS 06/30 1200 AC 08/08 PO 0840 Sodium Chloride 2 SPRAY Q10MIN PRN 07/12 0230 AC CARLITOS Sodium Hypochlorite 1 CHAITANYA BID 07/05 1113 AC 08/07 TOP 2052 Sodium Thiosulfate 25 GM MoWeFr 08/05 1400 AC 08/05 Sodium Chloride 150 ML IV 1554 Tamsulosin HCl 0.4 MG DAILY 07/01 1000 AC 08/08 PO 0840 Vitamin A/Vitamin D 1 CHAITANYA BID 06/30 220 AC 08/07 TOP 2052 Zinc Oxide 1 CHAITANYA BID 06/30 2200 AC 08/07 TOP 2052 Results Pertinent Lab Results: Laboratory Tests 08/08 08/07 08/07 1030 1415 0600 Chemistry Sodium (137 - 145 mmol/L) 138 Potassium (3.5 - 5.1 mmol/L) 4.1 Chloride (98 - 107 mmol/L) 101 Carbon Dioxide (22 - 30 mmol/L) 28 Anion Gap (5 - 16) 9 BUN (9 - 20 mg/dL) 27 H Creatinine (0.7 - 1.2 mg/dL) 2.3 H Estimated GFR (>60 ml/min) 28 L BUN/Creatinine Ratio (7 - 25 %) 11.7 Calcium (8.4 - 10.2 mg/dL) 7.2 L Phosphorus (2.5 - 4.5 mg/dL) 2.3 L Magnesium (1.6 - 2.3 mg/dL) 1.4 L Albumin (3.5 - 5.0 g/dL) 1.8 L Coagulation PT Pending Cancelled INR Pending Cancelled Hematology CBC w Diff NO MAN DIFF REQ WBC (4.8 - 10.8 /CUMM) 11.1 H RBC (4.70 - 6.10 /CUMM) 2.87 L Hgb (14.0 - 18.0 G/DL) 8.0 L Hct (42 - 52 %) 25.3 L MCV (80.0 - 94.0 FL) 88.4 MCH (27.0 - 31.0 PG) 27.8 RDW (11.5 - 14.5 %) 19.7 H Plt Count (130 - 400 /CUMM) 317 MPV (7.4 - 10.4 FL) 8.1 Gran % (42.2 - 75.2 %) 86.9 H Lymphocytes % (20.5 - 51.1 %) 5.6 L Monocytes % (1.7 - 9.3 %) 6.2 Eosinophils % (0 - 5 %) 1.2 Basophils % (0.0 - 2.0 %) 0.1 Absolute Granulocytes (1.4 - 6.5 /CUMM) 9.6 H Absolute Lymphocytes (1.2 - 3.4 /CUMM) 0.6 L Absolute Monocytes (0.10 - 0.60 /CUMM) 0.7 H Absolute Eosinophils (0.0 - 0.7 /CUMM) 0.1 Absolute Basophils (0.0 - 0.2 /CUMM) 0 PUBS MCHC (33.0 - 37.0 G/DL) 31.4 L 08/06 08/05 08/05 0620 1356 1211 Chemistry Sodium (137 - 145 mmol/L) 139 Cancelled Potassium (3.5 - 5.1 mmol/L) 3.9 Cancelled Chloride (98 - 107 mmol/L) 100 Cancelled Carbon Dioxide (22 - 30 mmol/L) 28 Cancelled Anion Gap (5 - 16) 11 Cancelled BUN (9 - 20 mg/dL) 17 Cancelled Creatinine (0.7 - 1.2 mg/dL) 1.5 H Cancelled Estimated GFR (>60 ml/min) 46 L BUN/Creatinine Ratio (7 - 25 %) 11.3 Cancelled Coagulation PT (9.4 - 12.5 SEC) 34.3 H INR (0.90 - 1.17) 3.31 H Hematology CBC w Diff NO MAN DIFF REQ WBC (4.8 - 10.8 /CUMM) 13.1 H RBC (4.70 - 6.10 /CUMM) 3.11 L Hgb (14.0 - 18.0 G/DL) 8.5 L Hct (42 - 52 %) 27.5 L MCV (80.0 - 94.0 FL) 88.3 MCH (27.0 - 31.0 PG) 27.4 RDW (11.5 - 14.5 %) 19.4 H Plt Count (130 - 400 /CUMM) 351 MPV (7.4 - 10.4 FL) 8.6 Gran % (42.2 - 75.2 %) 93.7 H Lymphocytes % (20.5 - 51.1 %) 4.2 L Monocytes % (1.7 - 9.3 %) 1.8 Eosinophils % (0 - 5 %) 0 Basophils % (0.0 - 2.0 %) 0.3 Absolute Granulocytes (1.4 - 6.5 /CUMM) 12.3 H Absolute Lymphocytes (1.2 - 3.4 /CUMM) 0.5 L Absolute Monocytes (0.10 - 0.60 /CUMM) 0.2 Absolute Eosinophils (0.0 - 0.7 /CUMM) 0 Absolute Basophils (0.0 - 0.2 /CUMM) 0 PUBS MCHC (33.0 - 37.0 G/DL) 31.1 L Toxicology Random Vancomycin (ug/ml) 11.7
--- NOTE | 2016-08-08 13:45 | NUR ---
LATE ENTRY: DRESSINGS TO COCCYX AND LLE CHANGED PER WOUND CARE INSTRUCTIONS ORDERED. DR BLACKWELL IN TO ASSESS PT. NO FURTHER INSTRUCTIONS AT THIS TIME. PT MEDICATED WITH PO TYLENOL FOR PAIN. WILL CONTINUE TO MONITOR.
[2016-08-08 17:07] VITALS: BP 130/64
--- NOTE | 2016-08-08 17:20 | PN- Att Addend ---
Attending Addendum Attending Brief Note Patient seen and examined with the resident and internal control manager. Discussed with vascular surgery the placement of AV fistula and skin biopsy. Patient's INR level today is 1.79. He was started on heparin drip and will be switched to eliquis today from [facility]. Given that vascular surgery is unable to do the AV fistula this week or early next week patient will be discharged to subacute rehabilitation and they'll come back on friday morning for admission back to the hospital for placement of AV fistula. He will be stopping his request on Friday night and will be started on heparin drip after admission on Friday. Discussed with patient's the care plan.
--- NOTE | 2016-08-08 17:46 | ULTRASOUND REPORT ---
EXAMINATION: DUPLEX VENOUS ULTRASOUND OF THE BILATERAL UPPER EXTREMITIES; VENOUS MAPPING. CLINICAL HISTORY: Evaluation prior to AV fistula placement. History of right arm DVT. COMPARISON: None. TECHNIQUE: Grayscale, color and Doppler ultrasound of the deep and superficial veins of the bilateral upper extremity were performed. FINDINGS: RIGHT UPPER EXTREMITY: The right internal jugular, subclavian and axillary veins demonstrate normal color Doppler flow suggesting patency. The right brachial and basilic veins are easily compressible and demonstrate normal color Doppler flow suggesting patency. The cephalic vein at the antecubital fossa and forearm contains thrombus. Basilic vein: Proximal upper arm: 0.2 cm, depth: 1.2 cm Mid upper arm: 0.2 cm, depth: 1.4 cm Distal upper arm: 0.2 cm, depth: 1.1 cm Proximal lower arm: 0.1 cm, depth 0.8 cm Cephalic vein: Proximal at shoulder: 0.3 cm, depth 0.8 cm Proximal upper arm: 0.3 cm, depth 0.7 cm Mid upper arm: 0.4 cm, depth 0.4 cm Distal upper arm: 0.2 cm, depth 0.3 cm Proximal lower arm: 0.3 cm, depth 0.3 cm Mid lower arm: 0.2 cm, depth 0.8 cm At the wrist: 0.1 cm, depth 0.1 cm The brachial artery is patent with peak systolic velocity 107 cm/s. The radial artery is patent with a peak systolic velocity of 59 cm/s. The ulnar artery is patent with peak systolic velocity of 77 cm/s. Left upper extremity: Echogenic nonocclusive thrombus is seen within the lower internal jugular vein and proximal subclavian vein. The axillary, brachial and basilic veins are patent. Thrombus is noted within the cephalic vein within the mid to distal upper arm. Basilic vein: Proximal upper arm: 0.5 cm, depth: 1.1 cm Mid upper arm: 0.4 cm, depth: 0.7 cm Distal upper arm: 0.5 cm, depth: 0.5 cm Cephalic vein: Proximal at shoulder: 0.2 cm, depth 1.1 cm Proximal upper arm: 0.1 cm, depth 0.8 cm Mid upper arm: 0.2 cm, depth 0.4 cm Distal upper arm: 0.2 cm, depth 0.3 cm Proximal lower arm: 0.2 cm, depth 0.2 cm Mid lower arm: 0.2 cm, depth 0.2 cm At the wrist: 0.2 cm, depth 0.2 cm The brachial artery is patent with peak systolic velocity 106 cm/s. The radial artery is patent with a peak systolic velocity of 33 cm/s. The ulnar artery is patent with peak systolic velocity of 92 cm/s. IMPRESSION: 1. Vein mapping measurements as described above. Both the right and left cephalic veins contain thrombus. 2. Nonocclusive thrombus is seen within the lower left internal jugular vein and proximal left subclavian vein. This critical result was discussed with Dr. Mir at 5:42 PM, 08/08/2016 and it was ascertained that the content and urgency of the report was understood at the time of direct communication.
[2016-08-08 23:50] VITALS: BP 136/72
--- NOTE | 2016-08-09 07:56 | PN- Diabetes ---
Assessment/Plan Assessment: The patient has been moved to general medicine and the family does not wish aggressive treatment at this time. The patient is on thickened liquids and his po intake has been improving. Patient states he feels improved. He states he is eating much better than before. The patient is apparently scheduled for a skin biopsy. Apparently surgery is on hold until his INR comes down. There are other issues which are still open- ended including whether the skin lesions are related to calciphylaxis versus pyoderma gangrenosum as mentioned and Harjit's note, This would alter his current therapy. 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 With regard to his steroid therapy the patient is doing well on prednisone 5 mg once a day. He has not developed any hypotension. Fingerstick blood sugars yesterday were 95 before breakfast, 194 before lunch, 216 before dinner, and 227 at bedtime. Plan: Suggest continue the present insulin. The patient is apparently going to have a fistula created on Friday The patient cannot be discharged unless there is a dialysis slot available for him as an outpatient.. Subjective Subjective: Is okay Objective Last 24 Hrs of Vital Signs/I&O Vital Signs Date Time Temp Pulse Resp B/P Pulse O2 O2 Flow FiO2 Ox Delivery Rate 08/09 0000 92 Room Air 08/08 2350 98.1 78 19 136/72 92 Room Air 08/08 1707 97.8 80 18 130/64 93 Room Air 08/08 0841 80 12408/08 0840 80 124/08/08 0800 93 Room Air Intake & Output 08/09 0800 08/09 0000 08/08 1600 Intake Total 240 1000 Output Total 700 200 Balance -700 240 800 Intake, Oral 240 1000 Number 4 5 1 Bowel Movements Output, Urine 700 200 Patient 152 lb Weight Vital Signs Date Time Temp Pulse Resp B/P Pulse O2 O2 Flow FiO2 Ox Delivery Rate 08/09 0000 92 Room Air 08/08 2350 98.1 78 19 136/72 92 Room Air 08/08 1707 97.8 80 18 130/64 93 Room Air 08/08 0841 80 124/70 08/08 0840 80 124/70 08/08 0800 93 Room Air Intake & Output 08/09 0800 08/09 0000 08/08 1600 Intake Total 240 1000 Output Total 700 200 Balance -700 240 800 Intake, Oral 240 1000 Number 4 5 1 Bowel Movements Output, Urine 700 200 Patient 152 lb Weight Physical Exam General Appearance: no apparent distress Head: normal appearance Neck: normal inspection Respiratory: normal breath sounds Cardiovascular: regular rate/rhythm Abdomen: normal bowel sounds Extremities: the foot bandaged Current Medications: Current Medications Sig/Kailash Start time Last Medication Dose Route Stop Time Status Admin Acetaminophen 650 MG .STK-MED ONE 08/08 1143 DC PO 08/08 1144 Acetaminophen 650 MG Q6P PRN 07/22 1700 AC 08/08 PO 1153 Apixaban 5 MG BID 08/08 2200 AC 08/08 PO 2156 Aspirin 81 MG DAILY 07/01 1000 AC 08/08 PO 0840 Atorvastatin Calcium 40 MG 1700 06/30 1700 AC 08/08 PO 1739 Carvedilol 25 MG BID 08/02 2200 AC 08/08 PO 2158 Collagenase 1 CHAITANYA DAILY 08/02 1815 AC 08/08 TOP 1156 Epoetin Ludwig 3,000 UNIT MoWeFr PRN 07/08 1200 AC IV Epoetin Ludwig 2,000 UNIT MoWeFr PRN 07/08 1200 AC IV Fluconazole 400 MG MoWeFr@2000 08/07 2000 AC 08/07 PO 2052 Guaifenesin 600 MG Q12 07/18 1000 AC 08/08 PO 2156 Heparin Sodium 25,000 UNIT Q24H 08/08 1445 DC (Porcine) IV Sodium Chloride 500 ML Insulin Aspart 0 AC & AT BEDTIME 08/03 1200 AC 08/08 SC 1750 Insulin Detemir 5 UNITS DAILY 08/04 1000 AC 08/08 SC 0841 Iron Sucrose 100 MG PER PROTOCL PRN 07/01 1430 AC 07/03 Sodium Chloride 100 ML IV 1221 Multivitamins 1 TAB DAILY 07/01 1000 AC 08/08 PO 0841 Omeprazole 40 MG DAILY AC 07/14 0700 AC 08/09 PO 0709 Oxycodone/ 2 TAB Q8P PRN 08/04 1015 AC 08/08 Acetaminophen PO 1927 Prednisone 5 MG DAILY 08/06 1000 AC 08/08 PO 0841 Sevelamer Carbonate 800 MG WITH MEALS 06/30 1200 AC 08/08 PO 1739 Sodium Chloride 2 SPRAY Q10MIN PRN 07/12 0230 AC CARLITOS Sodium Hypochlorite 1 CHAITANYA BID 07/05 1113 AC 08/08 TOP 2159 Sodium Thiosulfate 25 GM MoWeFr 08/05 1400 AC 08/05 Sodium Chloride 150 ML IV 1554 Tamsulosin HCl 0.4 MG DAILY 07/01 1000 AC 08/08 PO 0840 Vitamin A/Vitamin D 1 CHAITANYA BID 06/30 2200 AC 08/08 TOP 2199 Zinc Oxide 1 CHAITANYA BID 06/30 2200 08/08 TOP 2200 Findings Pertinent Lab/[facility] Results: Laboratory Tests 08/08 08/08 1732 1030 Coagulation PT (9.4 - 12.5 SEC) 18.7 H INR (0.90 - 1.17) 1.79 H APTT Cancelled
--- NOTE | 2016-08-09 08:48 | PN- Housestaff ---
ESTELA HEATH,[facility] 08/09/16 0848: Subjective Follow-up For: Left lower extremity nonhealing Subjective: Patient seen and examined this morning. He was lying comfortably in bed in no acute distress. He is afebrile vitals normal limits. He continues to have pain in his left lower extremity secondary to nonhealing ulcer, he is to get dialysis today, AV fistula placement most possibly on Friday next week. Review of Systems Constitutional: Denies: chills, fever. Cardiovascular: Denies: chest pain, palpitations. Respiratory: Denies: cough, short of breath, sputum production. Gastrointestinal: Denies: abdominal pain, constipation, diarrhea, nausea, vomiting. Objective Last 24 Hrs of Vital Signs/I&O Vital Signs Date Time Temp Pulse Resp B/P Pulse O2 O2 Flow FiO2 Ox Delivery Rate 08/09 0902 98.5 90 15 126/70 94 08/09 0000 92 Room Air 08/08 2350 98.1 78 19 136/72 92 Room Air 08/08 1707 97.8 80 18 130/64 93 Room Air Intake & Output 08/09 1600 08/09 0800 08/09 0000 Intake Total 480 240 Output Total 700 Balance 480 -700 240 Intake, Oral 480 240 Number 1 4 5 Bowel Movements Output, Urine 700 Patient 69.003 kg Weight Physical Exam General Appearance: Alert, Oriented X3, Cooperative Cardiovascular: Regular Rate, Normal S1, Normal S2, No Murmurs Lungs: Clear to Auscultation, Normal Air Movement Abdomen: Normal Bowel Sounds, Soft, No Tenderness Extremities: left lower ext nonhealing ulcer Current Medications: Current Medications Sig/Kailash Start time Last Medication Dose Route Stop Time Status Admin Acetaminophen 650 MG Q6P PRN 07/22 1700 AC 08/08 PO 1153 Apixaban 5 MG BID 08/08 2199 DC 08/08 PO 2156 Aspirin 81 MG DAILY 07/01 1000 AC 08/08 PO 0840 Atorvastatin Calcium 40 MG 1700 06/30 1700 AC 08/08 PO 1739 Carvedilol 25 MG BID 08/02 220 AC 08/08 PO 2158 Collagenase 1 CHAITANYA DAILY 08/02 1815 AC 08/09 TOP 1126 Epoetin Ludwig 3,000 UNIT MoWeFr PRN 07/08 1200 AC IV Epoetin Ludwig 2,000 UNIT MoWeFr PRN 07/08 1200 AC IV Fluconazole 400 MG MoWeFr@2000 01/11 2000 AC 08/07 PO 205 Guaifenesin 600 MG Q12 07/18 1000 AC 08/08 PO 2156 Heparin Sodium 25,000 UNIT Q24H 08/09 1045 AC (Porcine) IV Sodium Chloride 500 ML Heparin Sodium 25,000 UNIT Q24H 08/08 1445 DC (Porcine) IV Sodium Chloride 500 ML Insulin Aspart 0 AC & AT BEDTIME 08/03 1200 AC 08/09 SC 1111 Insulin Detemir 5 UNITS DAILY 08/04 1000 08/09 SC 1112 Iron Sucrose 100 MG PER PROTOCL PRN 07/01 1430 AC 07/03 Sodium Chloride 100 ML IV 1221 Multivitamins 1 TAB DAILY 07/01 1000 AC 08/08 PO 0841 Omeprazole 40 MG DAILY AC 07/14 0700 AC 08/09 PO 0709 Oxycodone/ 2 TAB Q8P PRN 08/04 1015 AC 08/09 Acetaminophen PO 1122 Prednisone 5 MG DAILY 08/06 1000 AC 08/08 PO 0841 Sevelamer Carbonate 800 MG WITH MEALS 06/30 1200 AC 08/09 PO 1110 Sodium Chloride 2 SPRAY Q10MIN PRN 07/12 0230 AC CARLITOS Sodium Hypochlorite 1 CHAITANYA BID 07/05 1113 08/09 TOP 1123 Sodium Thiosulfate 25 GM MoWeFr 08/05 1400 AC 08/05 Sodium Chloride 150 ML IV 1554 Tamsulosin HCl 0.4 MG DAILY 07/01 1000 AC 08/08 PO 0840 Vitamin A/Vitamin D 1 CHAITANYA BID 06/30 2200 08/09 TOP 1124 Zinc Oxide 1 CHAITANYA BID 06/30 2200 08/09 TOP 1124 Last 24 Hrs of Lab/Avtar Results Last 24 Hrs of Labs/Mics: Laboratory Tests 08/09/16 1333: Anion Gap 12, Estimated GFR 28 L, BUN/Creatinine Ratio 8.7, Phosphorus 2.2 L, Magnesium 1.4 L, Albumin 2.2 L, PT 21.8 H, INR 2.09 H, CBC w Diff NO MAN DIFF REQ, RBC 3.25 L, MCV 89.5, MCH 27.9, RDW 20.2 H, MPV 9.0, Gran % 78.9 H, Lymphocytes % 9.5 L, Monocytes % 7.5, Eosinophils % 3.7, Basophils % 0.4, Absolute Granulocytes 9.0 H, Absolute Lymphocytes 1.1 L, Absolute Monocytes 0.9 H, Absolute Eosinophils 0.4, Absolute Basophils 0, PUBS MCHC 31.1 L 08/08/16 1732: APTT Cancelled Assessment/Plan Assessment: 75 y/o M with PMHx of antiphospholipid antibody syndrome, diabetes and CKD who presented with SOB, hoarseness and stridor, found to be uremic with initiation of HD, s/p debridement of chronic left leg ulcer, on IV vancomycin for soft tissue infection, currently awaiting outpatient dialysis slot. Fever of unknown origin: Continue fluconazole 400mg PO after every dialysis. CT abdomen and chest has not revealed any source of infection. ID following, will follow recs. Anemia : Etiology multifactorial. Currently HDS. Per GI anemia likely secondary to other causes then GI. Will have patient follow-up with GI as an outpatient. We'll continue iron supplementation and Epogen. Chronic left lower extremity ulcer: Nonhealing ulcer on left lower extremity along with multiple other ulcers. As per Dr. Pretty, Dr. Bryan we'll do a punch biopsy at that site for diagnoses of calciphylaxis. Antiphospholipid antibody syndrome: chronic right upper extremity DVT. On life- long anti-coagulation with warfarin, takes 5 mg PO QD. * Coumadin on hold,started on IV heparin, he is to get AV fistula placement on Friday, got venous mapping done yesterday, further anticoagulation will be dependent on if biopsy positive for diagnoses of calciphylaxis. ESRD: Cr was 5 on admission, with gradual increase from 2-3 within the past year. Most likely etiology is progressive diabetic nephropathy. Mj cath was placed and urgent hemodialysis was initiated (06/26) with improvement of mental status. Patient is currently awaiting outpatient dialysis slot. * Nephrology following * Mj Cath in place, Continue HD MWF * Continue sevelamer 800 mg PO TIDAC. 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 T2DM: Uncontrolled blood sugars this admission, secondary to steroids. * Endocrinology following * Levemir 4U SQ DAILY * Continue NovoLog SSI TIDAC as suggested HTN: Takes amlodipine 10 mg PO QD, carvedilol 25 mg PO BID, furosemide 80 mg PO BID and hydralazine 50 mg PO BID at home. * Holding home amlodipine, furosemide and hydralazine. * Continue home carvedilol. Crohn's disease: Patient has been taking prednisone 10 mg PO QD for many years to prevent flares. * prednisone 5 mg daily. If patient at any time gets hypotensive, given a stress dose of steroid followed by increasing dose of prednisone to 10 mg daily * Aspirin GI, the patient to remain on aspirin, Protonix needed to be added. * C diff negative Diet: Renal Dialysis Diet (regular and nectar thick liquids) DVT PPx: Warfarin and ALPs CODE: FULL Problem List: 1. Peripheral vascular disease 2. Type 2 diabetes mellitus 3. Chronic ulcer of left lower extremity 4. Antiphospholipid antibody syndrome 5. End stage renal disease Pain Ratin Pain Location: Left lower extremity Pain Goal: Remain pain free Pain Plan: percocet Tomorrow's Labs & Rationales: CBC in setting of infection MARK BLACKWELL 08/09/16 1706: Attending MD Review Statement Attending Statement Attending MD Statement: examined this patient, discuss w/resident/PA/MASON TENDER, agreed w/resident/PA/MASON TENDER, reviewed EMR data (avail), discussed with nursing, discussed with case mgmt Attending Assessment/Plan: Patient seen and examined at bedside. Vein mapping results were discussed with the vascular surgeon and after reviewing the result patient may have better veins on the right side for placement of AV fistula. Vascular surgery is in a take the patient to OR on Friday and will do the skin biopsy at the same time. Discussed with nephrology the care plan. Patient will be continued on a heparin drip for now till the procedure. Once the AV fistula is placed and skin biopsies done we will resume the patient's Coumadin or switch him to eliquis based on skin biopsy results
[2016-08-09 09:02] VITALS: BP 126/70
--- NOTE | 2016-08-09 10:58 | PN- Nephrology ---
Assessment/Plan Assessment: 1. ESRD: HD in progress - UF target 2 liters; needs AVF/G creation before can be discharged to outpt HD unit 2. Skin necrosis: ? calciphylaxis --> favor bx for dx before committing to intermediate designer apixaban rather than warfarin - important to note, there is no outcome data for apixaban anticoagulation in ESRD/HD; continue Na thioSO4 for now 3. Recurrent thromboses/anti-phospholipid: strong hx; needs continuous anticoagulation & heparin bridge periop most prudent approach w postop warfarin or apixaban In my view, pt is not ready for & can not accept for outpt HD @ present time. Have discussed w pt, , & medical team in detail. Suggestion: 1. vasc surg f/u for AVF/G creation 2. skin bx 3. heparin bridge for skin bx & AVF/G 4. next HD Mon Subjective Subjective: No complaints this morning Remains bedbound Heparin stopped & started on apixaban but still needs AVF/G creation Objective Vital Signs and I&Os Vital Signs Date Time Temp Pulse Resp B/P Pulse O2 O2 Flow FiO2 Ox Delivery Rate 08/09 0902 98.5 90 15 126/70 94 08/09 0000 92 Room Air 08/08 2350 98.1 78 19 136/72 92 Room Air 08/08 1707 97.8 80 18 130/64 93 Room Air Intake & Output 08/09 1600 08/09 0400 08/08 1600 08/08 0400 08/07 1600 08/07 0400 Intake Total 240 1120 180 540 560 Output Total 700 200 451 Balance -700 240 920 180 89 560 Intake, IV 30 0 Intake, Oral 240 1120 150 540 560 Number 4 5 1 2 1 1 Bowel Movements Output, Stool 1 Output, Urine 700 200 450 Patient 152 lb 152 lb 150 lb Weight Physical Exam General Appearance: no apparent distress, alert Head: normal appearance Neck: R IJ HD cath Respiratory: quiet respiration, lungs clear Cardiovascular: regular rate/rhythm Abdomen: soft, non-tender, no organomegaly Back: normal inspection Extremities: no change necrotioc lesions Skin: rash (necrotic lesions on legs) Current Medications: Current Medications Sig/Kailash Start time Last Medication Dose Route Stop Time Status Admin Acetaminophen 650 MG .STK-MED ONE 08/08 1143 DC PO 08/08 1144 Acetaminophen 650 MG Q6P PRN 07/22 1700 AC 08/08 PO 1153 Apixaban 5 MG BID 08/08 2200 DC 08/08 PO 2156 Aspirin 81 MG DAILY 07/01 1000 AC 08/08 PO 0840 Atorvastatin Calcium 40 MG 1700 06/30 1700 AC 08/08 PO 1739 Carvedilol 25 MG BID 08/02 2200 AC 08/08 PO 2158 Collagenase 1 CHAITANYA DAILY 08/02 1815 AC 08/08 TOP 1156 Epoetin Ludwig 3,000 UNIT MoWeFr PRN 07/08 1200 AC IV Epoetin Ludwig 2,000 UNIT MoWeFr PRN 07/08 1200 AC IV Fluconazole 400 MG MoWeFr@08/07 2000 AC 08/07 PO 205 Guaifenesin 600 MG Q12 07/18 1000 AC 08/08 PO 2156 Heparin Sodium 25,000 UNIT Q24H 08/09 1045 UNVr (Porcine) IV Sodium Chloride 500 ML Heparin Sodium 25,000 UNIT Q24H 08/08 1445 DC (Porcine) IV Sodium Chloride 500 ML Insulin Aspart 0 AC & AT BEDTIME 08/03 1200 AC 08/08 SC 1750 Insulin Detemir 5 UNITS DAILY 08/04 1000 AC 08/08 SC 0841 Iron Sucrose 100 MG PER PROTOCL PRN 07/01 1430 AC 07/03 Sodium Chloride 100 ML IV 1221 Multivitamins 1 TAB DAILY 07/01 1000 AC 08/08 PO 0841 Omeprazole 40 MG DAILY AC 07/14 0700 AC 08/09 PO 0709 Oxycodone/ 2 TAB Q8P PRN 08/04 1015 AC 08/08 Acetaminophen PO 1927 Prednisone 5 MG DAILY 08/06 1000 AC 08/08 PO 0841 Sevelamer Carbonate 800 MG WITH MEALS 06/30 1200 AC 08/08 PO 1739 Sodium Chloride 2 SPRAY Q10MIN PRN 07/12 0230 AC CARLITOS Sodium Hypochlorite 1 CHAITANYA BID 07/05 1113 AC 08/08 TOP 2159 Sodium Thiosulfate 25 GM MoWeFr 08/05 1400 AC 08/05 Sodium Chloride 150 ML IV 1554 Tamsulosin HCl 0.4 MG DAILY 07/01 1000 AC 08/08 PO 0840 Vitamin A/Vitamin D 1 CHAITANYA BID 06/30 2200 AC 08/08 TOP 2200 Zinc Oxide 1 CHAITANYA BID 06/30 2200 AC 08/08 TOP 2201 Results Pertinent Lab Results: Laboratory Tests 08/08 08/08 08/07 1732 1030 1415 Chemistry Sodium (137 - 145 mmol/L) 138 Potassium (3.5 - 5.1 mmol/L) 4.1 Chloride (98 - 107 mmol/L) 101 Carbon Dioxide (22 - 30 mmol/L) 28 Anion Gap (5 - 16) 9 BUN (9 - 20 mg/dL) 27 H Creatinine (0.7 - 1.2 mg/dL) 2.3 H Estimated GFR (>60 ml/min) 28 L BUN/Creatinine Ratio (7 - 25 %) 11.7 Calcium (8.4 - 10.2 mg/dL) 7.2 L Phosphorus (2.5 - 4.5 mg/dL) 2.3 L Magnesium (1.6 - 2.3 mg/dL) 1.4 L Albumin (3.5 - 5.0 g/dL) 1.8 L Coagulation PT (9.4 - 12.5 SEC) 18.7 H INR (0.90 - 1.17) 1.79 H APTT Cancelled Hematology CBC w Diff NO MAN DIFF REQ WBC (4.8 - 10.8 /CUMM) 11.1 H RBC (4.70 - 6.10 /CUMM) 2.87 L Hgb (14.0 - 18.0 G/DL) 8.0 L Hct (42 - 52 %) 25.3 L MCV (80.0 - 94.0 FL) 88.4 MCH (27.0 - 31.0 PG) 27.8 RDW (11.5 - 14.5 %) 19.7 H Plt Count (130 - 400 /CUMM) 317 MPV (7.4 - 10.4 FL) 8.1 Gran % (42.2 - 75.2 %) 86.9 H Lymphocytes % (20.5 - 51.1 %) 5.6 L Monocytes % (1.7 - 9.3 %) 6.2 Eosinophils % (0 - 5 %) 1.2 Basophils % (0.0 - 2.0 %) 0.1 Absolute Granulocytes (1.4 - 6.5 /CUMM) 9.6 H Absolute Lymphocytes (1.2 - 3.4 /CUMM) 0.6 L Absolute Monocytes (0.10 - 0.60 /CUMM) 0.7 H Absolute Eosinophils (0.0 - 0.7 /CUMM) 0.1 Absolute Basophils (0.0 - 0.2 /CUMM) 0 PUBS MCHC (33.0 - 37.0 G/DL) 31.4 L 08/07 0600 Coagulation PT Cancelled INR Cancelled
--- NOTE | 2016-08-09 13:32 | PN- Vascular Surgery ---
Surgical Brief Attending Note Brief Attending Note: He is on the OR schedule for right arm AVF vs AVG on friday late afternoon. Skin biopsy will also be performed at the time of surgery. I am unable to palpate right radial pulse. There is a palpable brachial pulse. Please obtain right arm arterial duplex. Thanks
--- NOTE | 2016-08-09 15:08 | PN- Infect Dx ---
Subjective Subjective: Afebrile without complaints Objective Last 24 Hrs of Vital Signs/I&O Vital Signs Date Time Temp Pulse Resp B/P Pulse O2 O2 Flow FiO2 Ox Delivery Rate 08/09 0902 98.5 90 15 126/70 94 08/09 0000 92 Room Air 08/08 2350 98.1 78 19 136/72 92 Room Air 08/08 1707 97.8 80 18 130/64 93 Room Air Intake & Output 08/09 1600 08/09 0800 08/09 0000 Intake Total 480 240 Output Total 700 Balance 480 -700 240 Intake, Oral 480 240 Number 1 4 5 Bowel Movements Output, Urine 700 Patient 152 lb Weight Physical Exam Other Physical Findings: He appears mildly lethargic on dialysis but in no acute distress Chest tunneled catheter in the right upper chest with no inflammation at the site Lungs are clear Heart regular rhythm with no murmur Extremities no new necrotic lesions Results Last 24 Hours of Lab Results: Laboratory Tests 08/08 1732 Coagulation APTT Cancelled Last 24 Hours of Avtar Results: Urine culture August 07 negative Recent Imaging Studies: Venous mapping August 08 reveals thrombus within the right and left cephalic veins and a nonocclusive thrombus within the lower left internal jugular vein and proximal left subclavian vein Assessment/Plan Impression: Stable with temperatures remaining normal (on steroids) and with a minimal leukocytosis now on Fluconazole alone Day 10 for candiduria, with the repeat urine culture negative. He is scheduled for a right arm AV fistula or AV graft next week, with the venous mapping findings noted. A skin biopsy is also scheduled at that time to rule out calciphylaxis. Suggestion: 1. Await placement of AV fistula versus AV graft and skin biopsy next week 2. Continue Fluconazole 400 mg po after every dialysis
[2016-08-09 15:24] LABS: ABSOLUTE BASOPHIL COUNT 0 /CUMM (0.0-0.2); ABSOLUTE EOSINOPHIL COUNT 0.4 /CUMM (0.0-0.7); ABSOLUTE LYMPH COUNT 1.1 /CUMM (1.2-3.4); ABSOLUTE MONOCYTE COUNT 0.9 /CUMM (0.10-0.60); BASOPHIL % 0.4 % (0.0-2.0); EOSINOPHIL % 3.7 % (0-5); GRANULOCYTE % 78.9 % (42.2-75.2); HEMATOCRIT 29.1 % (42-52); MEAN CORPUSCULAR HGB 27.9 PG (27.0-31.0); MEAN CORPUSCULAR HGB CONC 31.1 G/DL (33.0-37.0); MEAN CORPUSCULAR VOLUME 89.5 FL (80.0-94.0); PLATELET COUNT 281 /CUMM (130-400); RBC DISTRIBUTION WIDTH 20.2 % (11.5-14.5); RED BLOOD CELL CT 3.25 /CUMM (4.70-6.10); WHITE BLOOD CELL COUNT 11.4 /CUMM (4.8-10.8)
[2016-08-09 15:29] LABS: PT 21.8 SEC (9.4-12.5)
[2016-08-09 15:45] VITALS: BP 128/60
--- NOTE | 2016-08-09 15:45 | NUR ---
PT ARRIVED FROM DIALYSIS. VS FAIRLY STABLE- SEE VFS. NO ACUTE DISTRESS. ALSO, SEE ACCUCHECK AND WEIGHT DOCUMENTED. WILL CONT TO MONITOR.
--- NOTE | 2016-08-09 16:31 | PN- Cardiology ---
Subjective Subjective: Patient resting comfortably. Offers no complaints other than the pain in his legs. Denies chest pain, dyspnea, or palpitations. Objective Vital Signs and I&Os Vital Signs Date Time Temp Pulse Resp B/P Pulse O2 O2 Flow FiO2 Ox Delivery Rate 08/09 0902 98.5 90 15 126/70 94 08/09 0000 92 Room Air 08/08 2350 98.1 78 19 136/72 92 Room Air 08/08 1707 97.8 80 18 130/64 93 Room Air Intake & Output 08/09 1600 08/09 0800 08/09 0000 08/08 1600 08/08 0800 08/08 0000 Intake Total 965 735 5464 120 180 Output Total 700 200 Balance 480 -700 240 800 120 180 Intake, IV 30 Intake, Oral 579 008 9280 120 150 Number 1 4 5 1 2 Bowel Movements Output, Urine 700 200 Patient 152 lb 152 lb Weight Physical Exam: General: no apparent distress. Alert. Eyes: No obvious scleral icterus. HEENT: No jugular venous distention or abnormal jugular venous pulsations. Cardiovascular: Normal intensity S1/S2. PMI not grossly displaced. Respiratory: No rales or rhonchi Abdomen: Soft, nontender with no guarding or rebound tenderness. Musculoskeletal: No cyanosis noted, lower extremity ulceration noted Skin: Lesions noted Current Medications: Current Medications Sig/Kailash Start time Last Medication Dose Route Stop Time Status Admin Acetaminophen 650 MG Q6P PRN 07/22 1700 AC 08/08 PO 1153 Apixaban 5 MG BID 08/08 2200 DC 08/08 PO 2156 Aspirin 81 MG DAILY 07/01 1000 AC 08/08 PO 0840 Atorvastatin Calcium 40 MG 1700 / 1700 AC 08/08 PO 1739 Carvedilol 25 MG BID 08/02 2200 AC 08/08 PO 2158 Collagenase 1 CHAITANYA DAILY 08/02 1815 AC 08/09 TOP 1126 Epoetin Ludwig 3,000 UNIT MoWeFr PRN 07/08 1200 AC IV Epoetin Ludwig 2,000 UNIT MoWeFr PRN 07/08 1200 AC IV Fluconazole 400 MG MoWeFr@08/07 2000 AC 08/07 PO 205 Guaifenesin 600 MG Q12 07/18 1000 AC 08/08 PO 2156 Heparin Sodium 25,000 UNIT Q24H 08/09 1045 AC (Porcine) IV Sodium Chloride 500 ML Heparin Sodium 25,000 UNIT Q24H 08/08 1445 DC (Porcine) IV Sodium Chloride 500 ML Insulin Aspart 0 AC & AT BEDTIME 08/03 1200 AC 08/09 SC 1111 Insulin Detemir 5 UNITS DAILY 08/04 1000 AC 08/09 SC 1112 Iron Sucrose 100 MG PER PROTOCL PRN 07/01 1430 AC 07/03 Sodium Chloride 100 ML IV 1221 Multivitamins 1 TAB DAILY 07/01 1000 AC 08/08 PO 0841 Omeprazole 40 MG DAILY AC 07/14 0700 AC 08/09 PO 0709 Oxycodone/ 2 TAB Q8P PRN 08/04 1015 AC 08/09 Acetaminophen PO 1122 Prednisone 5 MG DAILY 08/06 1000 AC 08/08 PO 0841 Sevelamer Carbonate 800 MG WITH MEALS 06/30 1200 AC 08/09 PO 1110 Sodium Chloride 2 SPRAY Q10MIN PRN 07/12 0230 AC CARLITOS Sodium Hypochlorite 1 CHAITANYA BID 07/05 1113 AC 08/09 TOP 1123 Sodium Thiosulfate 25 GM MoWeFr 08/05 1400 AC 08/05 Sodium Chloride 150 ML IV 1554 Tamsulosin HCl 0.4 MG DAILY 07/01 1000 AC 08/08 PO 0840 Vitamin A/Vitamin D 1 CHAITANYA BID 06/30 2200 AC 08/09 TOP 1124 Zinc Oxide 1 CHAITANYA BID 06/30 2200 AC 08/09 TOP 1124 Results Last 48 Hrs of Labs/Mics: Laboratory Tests 08/09/16 1333: Anion Gap 12, Estimated GFR 28 L, BUN/Creatinine Ratio 8.7, Phosphorus 2.2 L, Magnesium 1.4 L, Albumin 2.2 L, PT 21.8 H, INR 2.09 H, CBC w Diff NO MAN DIFF REQ, RBC 3.25 L, MCV 89.5, MCH 27.9, RDW 20.2 H, MPV 9.0, Gran % 78.9 H, Lymphocytes % 9.5 L, Monocytes % 7.5, Eosinophils % 3.7, Basophils % 0.4, Absolute Granulocytes 9.0 H, Absolute Lymphocytes 1.1 L, Absolute Monocytes 0.9 H, Absolute Eosinophils 0.4, Absolute Basophils 0, PUBS MCHC 31.1 L 08/08/16 1732: APTT Cancelled 08/08/16 1030: PT 18.7 H, INR 1.79 H Recent Imaging Studies: Echo 06/2016 Poor LV endocardial definition but normal overall left venricular systolic function. Left atrial enlargement. Moderate Pulmonary hypertension. Zan Burden M.D. (Electronically Signed) Final Date: 29 June 2016 12:24 Assessment/Plan Assessment/Plan 1. Hypotension/sepsis, improved 2. Atypical/reproducible chest pain, resolved 3. Hx of Subglottic edema 4. History of antiphospholipid antibody syndrome maintained on anticoagulation 5. Lower extremity ulcer with peripheral vascular disease 6. End-stage renal disease on dialysis 7. History of hypertension 8. History of upper extremity thrombosis 9. Anemia 10. Hx of Demand ischemia 11. Pulmonary hypertension by Echo Cardiac status remains stable. BP within normal limits. No evidence of ACS or CHF at this time. Agree with plan for continued full AC with bridging therapy. Appears stable for planned AV fistula creation/biopsy at low to moderate cardiovascular risk. He should be continued on the B-randy as BP tolerates. Continue daily statin tx. Please reconsult with any additional questions or concerns. Eligio Childers MD [facility] Continue telemetry? Not applicable
--- NOTE | 2016-08-09 16:31 | Discharge Summary ---
Visit Information Visit Dates Admission Date: 06/26/16 Discharge Date: 08/21/16 Hospital Course Course Attending Physician: HARRY MORRIS M.D Primary Care Physician: WAYNE HUGO MD Hospital Course: Mr. Marvin is a 75-year-old male with past medical history significant for antiphospholipid antibody syndrome, chronic right upper extremity deep vein thrombosis on Coumadin daily, hypertension, diabetes, chronic kidney disease stage V, severe peripheral vascular disease, left lower extremity necrotising nonhealing ulcers, Crohn's disease status post bowel resection and chronic prednisone therapy, kidney stones status post lithotripsy, right toes amputation , femoropopliteal bypass surgery was brought in by ambulance from home for worsening of breathing, hoarseness, stridor for 2 days. Problem list: -Subglottic edema -Acute Hypoxic respiratory failure secondary to pneumonia -End-stage renal disease on hemodialysis -Left leg wound infection and skin necrosis r/o Calcyphylaxis -Antiphospholipid antibody syndrome on warfarin -Diabetes -Adrenal Crisis -Demand Ischemia -Candiduria -Anemia of chronic disease -Hypomagnesemia Hospital course: # Subglottic Edema: Patient presented with worsening hoarseness, intermittent stridor and SOB. He was also lethargic on admission and was admitted to the ICU. Of note, he has a recent history of hospitalization at [place] with similar symptoms in April 2016 and was treated with dexamethasone for subglottic edema. MRA and laryngoscopy were normal. Records obtained from [place] suggested infectious or inflammatory process causing subglottic edema. But no definite etiology was determined. Laryngoscopy was performed and reported bilateral vocal cord paralysis and subglottic narrowing. Xray of the neck showed a normal larynx, pharynx and upper trachea. No soft tissue swelling or opaque foreign body and no hypopharyngeal distention. CTA of neck with IV contrast did not report any abnormal anatomic findings. Oxygen supplementation was started and he was placed on dexamethasoneper ENT. Patient's hoarseness and stridor resolved over the next 48h and he was breathing comfortably on RA. Repeat Laryngoscopy on Jun 28 reported improvement of bilateral vocal cord paralysis, cause was suspected to be likely viral in etiology. Patient has been breathing comfortably on room air with no hoarseness. Dexamethasone was tapered off to oral prednisone. #Acute hypoxic respiratory failure: Due to his worsening shortness of breath and Chest x-ray and CAT scan finding of left lung consolidation and pneumonia. He was started IV ceftaz and IV vancomycin. However records from a recent hospitalization in April 2016 at [place] showed some of the findings were long-standing. So antibiotics were discontinued. Could have been related to the viral process that contributed to his subglottic edema and has since resolved duting the hospitalization. #Necrotizing nonhealing ulcers on left lower extremity r/o calcyphylaxis Chronic nonhealing necrotizing ulcers on left lower extremity since many years. He underwent wound debridement and deep tissue cultures grew Diphtheroids. He was placed on IV Vancomycin and it was recommended to taper his milk bottler steroid to help with better sugar control and wound healing. He was started empirically on sodium thiosulphate for calcyphylaxis. 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 Patient was on CLINITRON mattress while in hospitalWound care instructions: Please clean COCCYX with NS FB Santyl ointment FB Xeroform and DPD daily*apply hydrogel FB Xeroform to expose tender right lateral leg-apply 1/4 strength moist Darkins his gauze to moist granulation right leg and dry gauze to stable scar right leg FB Kerlix wrap twice daily and prn*offload pressure to heal please #Antiphospholipid syndrome on chronic anticoagulation with subtherapeutic INR on admission Patient has chronic right upper extremity DVT and is on warfarin. He was diagnosed with anti-phospholipid syndrome >20 years ago. INR 1.31 on admission. He was started on IV heparin bridge and we stopped on warfarin since it can exacerbate calciphylaxis. biopsy results were negative for calciphylaxis and patient was put back on warfarin(2.5 mg every other day, start from 08/22/2016) with heparin bridge and show follow up with coumadin clinic. #End Stage Renal disease on hemodialysis He had a tunnelled catheter placed on the day of admission and was on a Friday/ Friday/Friday schedule. He had an AV fistula placement for care home dialysis on 08/13/16. His chronic lower extremity swelling improved on dialysis. Per nephrology hemodialysis schedule was changed to //FRIDAY upon discharge.He is on renvela and nephrovitamin and should follow with out patient nephrology for continued hemodialysis. Continue a renal dialysis diet. #Demand Ischemia He was found to have elevated troponins on admission. Troponin levels were 0.95, then went up to 1.11, 1.12, and then came down to 0.86. No acute EKG changes and repeat ECGs remained unchanged. His last Echocardiogram on May 2016 showed a normal ejection fraction. Continue with aspirin, statin, beta randy and cardiology follow up. #Chronic disease anemia He dropped his hemoglobin to 6.8 likely due to his ESRD, he was transfused 2 packs of red blood cells with stabilization of his H&H. He has been started on erythropoetin. H&H is stable during the hospitalization. #History of Crohn's disease on chronic steroids for 50 years It was thought that patient patient being chronically dependent on steroids ( prednisone 10mg daily) may also play a role in delaying healing of his lower extremity wound. A decision was made to taoer his steroids slowly, however he developed altered mental status and hypotension partly due to suspected adrenal crisis and had to be transferrd to the ICU again. He was given IV Solu-Cortef and IV fluids which stabilized his blood pressure and he was returned to the medical floor. He was put back on a lower dose of 5 mg of by mouth prednisone and his vitals have been stable so far. #Aspiration pneumonia: Patient developed fevers along with a new cough during admission and CXR showed a right middle lobe opacity suspected to be aspiration pneumonia. He was treated with vancomycin and ceftazidime. A swallow evaluation was done and he was switched to chopped/nectar diet. #Candiduria Patient spiked fevers off and on during admission, source was initially unclear. CT abdomen and chest did not show any source of infection, repeat blood cultures did not grow any organisms. He however grew yeat in urine and he was put on IV fluconazole for a couplke of days. fever subsided and fluconazole was stopped. Complications: Adrenal Crisis Allergies: Coded Allergies: Sulfa (Sulfonamide Antibiotics) (Mild, HIVES 06/15/16) Significant Procedures: 1. Laryngoscopy 2. Excisional debridement of left lower extremity 3.AV fistula palcement Pertinent Lab Results: 3. ECHO: Poor LV endocardial definition but normal overall left ventricular systolic function. Left atrial enlargement. Moderate Pulmonary hypertension. Borderline normal left ventricular ejection fraction estimated at 50-55%. 4. DUPLEX VENOUS ULTRASOUND OF THE BILATERAL UPPER EXTREMITIES; VENOUS MAPPING. CLINICAL HISTORY: Evaluation prior to AV fistula placement. History of right arm DVT. COMPARISON: None. TECHNIQUE: Grayscale, color and Doppler ultrasound of the deep and superficial veins of the bilateral upper extremity were performed. FINDINGS: RIGHT UPPER EXTREMITY: The right internal jugular, subclavian and axillary veins demonstrate normal color Doppler flow suggesting patency. The right brachial and basilic veins are easily compressible and demonstrate normal color Doppler flow suggesting patency. The cephalic vein at the antecubital fossa and forearm contains thrombus. Basilic vein: Proximal upper arm: 0.2 cm, depth: 1.2 cm Mid upper arm: 0.2 cm, depth: 1.4 cm Distal upper arm: 0.2 cm, depth: 1.1 cm Proximal lower arm: 0.1 cm, depth 0.8 cm Cephalic vein: Proximal at shoulder: 0.3 cm, depth 0.8 cm Proximal upper arm: 0.3 cm, depth 0.7 cm Mid upper arm: 0.4 cm, depth 0.4 cm Distal upper arm: 0.2 cm, depth 0.3 cm Proximal lower arm: 0.3 cm, depth 0.3 cm Mid lower arm: 0.2 cm, depth 0.8 cm At the wrist: 0.1 cm, depth 0.1 cm The brachial artery is patent with peak systolic velocity 107 cm/s. The radial artery is patent with a peak systolic velocity of 59 cm/s. The ulnar artery is patent with peak systolic velocity of 77 cm/s. Left upper extremity: Echogenic nonocclusive thrombus is seen within the lower internal jugular vein and proximal subclavian vein. The axillary, brachial and basilic veins are patent. Thrombus is noted within the cephalic vein within the mid to distal upper arm. Basilic vein: Proximal upper arm: 0.5 cm, depth: 1.1 cm Mid upper arm: 0.4 cm, depth: 0.7 cm Distal upper arm: 0.5 cm, depth: 0.5 cm Cephalic vein: Proximal at shoulder: 0.2 cm, depth 1.1 cm Proximal upper arm: 0.1 cm, depth 0.8 cm Mid upper arm: 0.2 cm, depth 0.4 cm Distal upper arm: 0.2 cm, depth 0.3 cm Proximal lower arm: 0.2 cm, depth 0.2 cm Mid lower arm: 0.2 cm, depth 0.2 cm At the wrist: 0.2 cm, depth 0.2 cm The brachial artery is patent with peak systolic velocity 106 cm/s. The radial artery is patent with a peak systolic velocity of 33 cm/s. The ulnar artery is patent with peak systolic velocity of 92 cm/s. IMPRESSION: 1. Vein mapping measurements as described above. Both the right and left cephalic veins contain thrombus. 2. Nonocclusive thrombus is seen within the lower left internal jugular vein and proximal left subclavian vein. Disposition Summary Disposition Principal Diagnosis: chronic nonhealing wound on the left lower extremity, adrenal crisis, candiduria, Acute hypoxic respiratory failure due to pneumonia Additional Diagnosis: End-stage renal disease on dialysis, antiphospholipid syndrome, demand ischemia, Anemia of chronic disease Discharge Disposition: STR Discharge Instructions General Discharge Information Code Status: Do Not Resucitate/Intubat Patient's Diet: Renal dialysis diet Patient's Activity: As tolerated Follow-Up Instructions/Appts: 1. Please follow up with your PCP within 1 week of discharge from the extended care facility. 2. Please follow up with your accounting specialist within 1 week of discharge from the [facility]. You should have dialysis 3 times a week while at [facility] and then you are scheduled for , and Fri time slots for outpatient dialysis. 3. Please follow up in the would care clinic with Dr. Chen/Sukhwinder in 1 week upon discharge FROM THE HOSPITAL for monitoring of your ulcers. Continue with daily dressing changes of these ulcers while at [facility]. 4. Please follow up with your hand sewer shoes within 1 week of discharge from [facility]. 5. Please follow up with Dr. Hilton endocrinology within 1 week of discharge from [facility]. Take insulin as directed. 6. Please take all medications as directed. We have changed some medications so read your medication list thoroughly. Medications at Discharge Discharge Medications: Stop taking the following medications: Prednisone (Prednisone) 10 MG TABLET ORAL DAILY Warfarin Sodium (Coumadin) 5 MG TABLET ORAL DAILY Citric Acid/Sodium Citrate (Cytra-2 Oral Solution) 473 ML SOLUTION ORAL TWICE DAILY Qty = 473 Amlodipine Besylate (Amlodipine Besylate) 10 MG TABLET ORAL DAILY Qty = 30 Hydralazine HCl (Hydralazine HCl) 50 MG TABLET ORAL TWICE DAILY Qty = 90 Tramadol HCl (Tramadol HCl) 50 MG TABLET ORAL 2 x Daily as needed as needed for PAIN Qty = 180 Oxycodone HCl/Acetaminophen (Percocet 5-325 MG Tablet) 5 MG-325 MG TABLET ORAL TWICE DAILY as needed for PAIN Qty = 10 Insulin Aspart (Novolog) 100 UNIT/ML VIAL Inject into fatty tissue BEFORE MEALS AND AT BEDTIME Sodium Bicarbonate (Sodium Bicarbonate) 325 MG TABLET ORAL TWICE DAILY Furosemide (Furosemide) 80 MG TABLET ORAL TWICE DAILY Qty = 60 Continue taking these medications: Cyanocobalamin (Vitamin B-12) 1,000 MCG TABLET 1 Tablet ORAL DAILY Comments: NOT GIVEN IN HOSPITAL Ferrous Sulfate (Ferrous Sulfate) 325 MG (65 MG IRON) TABLET 1 Tablet ORAL THREE TIMES DAILY Comments: NOT GIVEN IN HOSPITAL Carvedilol (Carvedilol) 25 MG TABLET 1 Tablet ORAL TWICE DAILY Comments: Last Taken: 08/20/16 Time: 2200PM Calcitriol (Rocaltrol) 0.25 MCG CAPSULE 1 Capsule ORAL DAILY Comments: NOT GIVEN IN HOSPITAL Sevelamer Carbonate (Renvela) 800 MG TABLET 1 Tablet ORAL TIDWM Instructions: RESTART WHEN PHOS LEVEL >3.5 Comments: Last Taken: 08/21/16 Time: 1200PM Calcium Carbonate/Vitamin D3 (Os-Vishal 500+D3 Caplet) 500 MG-600 TABLET 1 Tablet ORAL THREE TIMES DAILY Comments: NOT GIVEN IN HOSPITAL Start taking the following new medications: Sodium Hypochlorite (Dakin's) 0.5 % SOLUTION 1 Application On the skin TWICE DAILY Days = 20 No Refills Comments: Last Taken: 08/21/16 Time: 1200PM Nephro-Vitamins (Nephro-Arthur Tablet) 0.8 MG TABLET 1 Tablet ORAL DAILY Days = 28 No Refills Comments: Last Taken: 08/21/16 Time: 830AM Insulin Detemir (Levemir) 100 UNIT/ML VIAL 5 Units Inject into fatty tissue DAILY Days = 28 No Refills Comments: Last Taken: 08/21/16 Time: 830AM Epoetin Ludwig (Procrit) 3,000 UNIT/ML VIAL 3,000 Unit INTRAVEN FRIDAY, FRIDAY, FRIDAY as needed for HEMODIALYSIS Qty = 10 No Refills Comments: GIVEN WITH DIALYSIS Epoetin Ludwig (Procrit) 2,000 UNIT/ML VIAL 2,000 Unit INTRAVEN FRIDAY, FRIDAY, FRIDAY as needed for HEMODIALYSIS Qty = 10 No Refills Comments: GIVEN WITH DIALYSIS Vitamin A & D (Vitamin A & D Ointment) 56.7 GM OINT...G. 1 Application On the skin TWICE DAILY Qty = 1 No Refills Comments: Last Taken: 08/21/16 Time: 830AM Insulin Aspart (Novolog) 100 UNIT/ML VIAL 0 Units Inject into fatty tissue SEE INSTRUCTIONS Qty = 10 No Refills Instructions: BEFORE MEALS Blood Insulin Sugar Units <80 0 80-99 0 100-150 4 151-200 5 201-250 6 251-300 7 301-350 8 351-400 9 >400 Call MD AT BEDTIME Blood Insulin Sugar Units <80 0 81-100 0 101-200 0 201-250 0 251-300 2 301-350 3 351-400 4 >400 Call Doctor, 5 units Comments: Last Taken: 08/21/16 Time: 1200PM Prednisone (Prednisone) 5 MG TABLET 1 Tablet ORAL DAILY Qty = 30 No Refills Comments: Last Taken: 08/21/16 Time: 830AM Oxycodone HCl/Acetaminophen (Percocet 5-325 MG Tablet) 5 MG-325 MG TABLET 2 Tablet ORAL EVERY 8 HOURS NEEDED as needed for PAIN SCALE 4-6 (MODERATE ) Qty = 15 No Refills Comments: Last Taken: 08/21/16 Time: 6AM Omeprazole Magnesium (Prilosec Otc) 20 MG TABLET. 2 Tablet ORAL DAILY Qty = 30 No Refills Comments: Last Taken: 08/21/16 Time: 6AM Atorvastatin Calcium (Atorvastatin Calcium) 40 MG TABLET 1 Tablet ORAL DAILY Qty = 30 No Refills Comments: Last Taken: 08/20/16 Time: 1700PM B Complex & C No.20/Folic Acid (Nephrocaps Softgel) 1 MG CAPSULE 1 Capsule ORAL DAILY Qty = 30 No Refills Comments: NOT GIVEN IN HOSPITAL Aspirin (Ecotrin*) 81 MG TABLET. 1 Tablet ORAL DAILY Qty = 30 No Refills Comments: Last Taken: 08/21/16 Time: 830AM Guaifenesin (Mucinex) 600 MG TAB.ER.12H 1 Tablet ORAL TWICE DAILY Qty = 20 No Refills Comments: Last Taken: 08/21/16 Time: 830AM Sodium Chloride (Saline Nasal Deputy) 0.65 % SPRAY 1 Deputy Both sides of nose 4 TIMES A DAY as needed for dRY NOSE Qty = 60 No Refills Comments: NOT GIVEN IN HOSPITAL Warfarin Sodium (Coumadin) 2.5 MG TABLET 1 Tablet ORAL As Directed Qty = 30 No Refills Instructions: Please take every other day. Comments: Last Taken: 08/20/16 Time: 1700PM Copies To: JESUS HEATH,SHAHBAZ Carty; OANH HEATH,WAYNE Posada; DUSTIN HEATH,Néstor BLISS; ANDREA HEATH,SANTOS; GEOFFREY HEATH,IZAIAH Neil; SAMM HEATH,STEW Jarquin; JUANITO HEATH,[facility]; MANUEL HEATH,HAWK Attending MD Review Statement Documenting Attending: HARRY MORRIS M.D Other Findings: I have reviewed the discharge summary
--- NOTE | 2016-08-09 20:10 | NUR ---
PT'S LYTES NOTED- SOME ABNORMAL LABS. DR. LOYA NOTIFIED. PENDING POSSIBLE NEW ORDERS. NIGHT RN TO FOLLOW.
[2016-08-09 23:40] VITALS: BP 123/48
[2016-08-10 01:27] LABS: PTT 87 SEC (25-37)
[2016-08-10 07:12] VITALS: BP 124/60
--- NOTE | 2016-08-10 08:45 | PN- Housestaff ---
Subjective Follow-up For: Left lower extremity nonhealing Subjective: Patient seen and examined this morning. Patient is slightly drowsy but easily arousable and answers all the questions asked. He says pain in his LLE is about 7 out of 10 this morning. Awaiting AV fistula placement on Friday or Friday. Afebrile over the past 24 hours. No new complaints, no events reported overnight. Review of Systems Constitutional: Reports: see HPI. Objective Last 24 Hrs of Vital Signs/I&O Vital Signs Date Time Temp Pulse Resp B/P Pulse O2 O2 Flow FiO2 Ox Delivery Rate 08/10 0712 98.7 83 20 124/60 95 Room Air 08/09 2340 98.9 87 20 123/48 92 Room Air 08/09 2229 120/62 08/09 1731 101 128/60 08/09 1731 101 128/60 08/09 1545 97.8 101 18 128/60 92 Room Air 08/09 0902 98.5 90 15 126/70 94 Intake & Output 08/10 1600 08/10 0800 08/10 0000 Intake Total 428 310.5 Output Total Balance 428 310.5 Intake, IV 188 70.5 Intake, Oral 240 240 Number 1 1 Bowel Movements Patient 66.224 kg Weight Physical Exam General Appearance: Alert, Oriented X3, Cooperative, No Acute Distress Other Physical Findings: Cardiovascular: Denies: chest pain, palpitations. Respiratory: Denies: cough, short of breath, sputum production. Gastrointestinal: Denies: abdominal pain, constipation, diarrhea, nausea, vomiting. Current Medications: Current Medications Sig/Kailash Start time Last Medication Dose Route Stop Time Status Admin Acetaminophen 650 MG Q6P PRN 07/22 1700 AC 08/08 PO 1153 Apixaban 5 MG BID 08/08 2200 DC 08/08 PO 2156 Aspirin 81 MG DAILY 07/01 1000 AC 08/09 PO 1730 Atorvastatin Calcium 40 MG 1700 06/30 1700 AC 08/09 PO 1732 Carvedilol 25 MG BID 08/02 2199 AC 08/09 PO 2229 Collagenase 1 CHAITANYA DAILY 08/02 181 AC 08/09 TOP 1126 Epoetin Ludwig 3,000 UNIT MoWeFr PRN 07/08 1200 AC IV Epoetin Ludwig 2,000 UNIT MoWeFr PRN 07/08 1200 AC IV Fluconazole 400 MG MoWeFr@08/07 AC 08/09 PO 2213 Guaifenesin 600 MG Q12 07/18 1000 AC 08/09 PO 2214 Heparin Sodium 25,000 UNIT Q24H 08/09 1045 AC 08/09 (Porcine) IV 1903 Sodium Chloride 500 ML Insulin Aspart 0 AC & AT BEDTIME 08/03 1200 AC 08/09 SC 1728 Insulin Detemir 5 UNITS DAILY 08/04 1000 AC 08/09 SC 1112 Iron Sucrose 100 MG PER PROTOCL PRN 07/01 1430 AC 07/03 Sodium Chloride 100 ML IV 1221 Magnesium Oxide 400 MG Q2 08/09 2200 DC PO 08/10 0001 Multivitamins 1 TAB DAILY 07/01 1000 AC 08/09 PO 1731 Omeprazole 40 MG DAILY AC 07/14 0700 AC 08/10 PO 0538 Oxycodone/ 2 TAB Q8P PRN 08/04 1015 AC 08/09 Acetaminophen PO 1122 Potassium Chloride 40 MEQ ONCE ONE 08/09 2014 CAN PO 08/09 2016 Prednisone 5 MG DAILY 08/06 1000 AC 08/09 PO 1732 Sevelamer Carbonate 800 MG WITH MEALS 06/30 1200 AC 08/09 PO 1732 Sodium Chloride 2 SPRAY Q10MIN PRN 07/12 0230 AC CARLITOS Sodium Hypochlorite 1 CHAITANYA BID 07/05 1113 AC 08/09 TOP 2214 Sodium Thiosulfate 25 GM MoWeFr 08/05 1400 AC 08/09 Sodium Chloride 150 ML IV 1400 Tamsulosin HCl 0.4 MG DAILY 07/01 1000 AC 08/09 PO 1731 Vitamin A/Vitamin D 1 CHAITANYA BID 06/30 2200 AC 08/09 TOP 2214 Zinc Oxide 1 CHAITANYA BID 06/30 2200 08/09 TOP 2214 Last 24 Hrs of Lab/Avtar Results Last 24 Hrs of Labs/Mics: Laboratory Tests 08/10/16 0055: APTT 87 H 08/09/16 1333: Anion Gap 12, Estimated GFR 28 L, BUN/Creatinine Ratio 8.7, Phosphorus 2.2 L, Magnesium 1.4 L, Albumin 2.2 L, PT 21.8 H, INR 2.09 H, CBC w Diff NO MAN DIFF REQ, RBC 3.25 L, MCV 89.5, MCH 27.9, RDW 20.2 H, MPV 9.0, Gran % 78.9 H, Lymphocytes % 9.5 L, Monocytes % 7.5, Eosinophils % 3.7, Basophils % 0.4, Absolute Granulocytes 9.0 H, Absolute Lymphocytes 1.1 L, Absolute Monocytes 0.9 H, Absolute Eosinophils 0.4, Absolute Basophils 0, PUBS MCHC 31.1 L Assessment/Plan Assessment: 75 y/o M with PMHx of antiphospholipid antibody syndrome, diabetes and CKD who presented with SOB, hoarseness and stridor, found to be uremic with initiation of HD, s/p debridement of chronic left leg ulcer, on IV vancomycin for soft tissue infection, currently awaiting outpatient dialysis slot. Fever of unknown origin: Continue fluconazole 400mg PO after every dialysis. CT abdomen and chest has not revealed any source of infection. ID following, will follow recs. Anemia : Etiology multifactorial. Currently HDS. Per GI anemia likely secondary to other causes then GI. Will have patient follow-up with GI as an outpatient. We'll continue iron supplementation and Epogen. Chronic left lower extremity ulcer: Nonhealing ulcer on left lower extremity along with multiple other ulcers. As per Dr. Pretty, Dr. Bryan we'll do a punch biopsy at that site for diagnoses of calciphylaxis. Antiphospholipid antibody syndrome: chronic right upper extremity DVT. On life- long anti-coagulation with warfarin, takes 5 mg PO QD. * Coumadin on hold,started on IV heparin, he is to get AV fistula placement on Friday, got venous mapping done yesterday, further anticoagulation will be dependent on if biopsy positive for diagnoses of calciphylaxis. ESRD: Cr was 5 on admission, with gradual increase from 2-3 within the past year. Most likely etiology is progressive diabetic nephropathy. Mj cath was placed and urgent hemodialysis was initiated (06/26) with improvement of mental status. Patient is currently awaiting outpatient dialysis slot. * Nephrology following * Mj Cath in place, Continue HD MWF * Continue sevelamer 800 mg PO TIDAC. 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 T2DM: Uncontrolled blood sugars this admission, secondary to steroids. * Endocrinology following * Levemir 4U SQ DAILY * Continue NovoLog SSI TIDAC as suggested HTN: Takes amlodipine 10 mg PO QD, carvedilol 25 mg PO BID, furosemide 80 mg PO BID and hydralazine 50 mg PO BID at home. * Holding home amlodipine, furosemide and hydralazine. * Continue home carvedilol. Crohn's disease: Patient has been taking prednisone 10 mg PO QD for many years to prevent flares. * prednisone 5 mg daily. If patient at any time gets hypotensive, given a stress dose of steroid followed by increasing dose of prednisone to 10 mg daily * Aspirin GI, the patient to remain on aspirin, Protonix needed to be added. * C diff negative Diet: Renal Dialysis Diet (regular and nectar thick liquids) DVT PPx: Warfarin and ALPs CODE: FULL Problem List: 1. Fever 2. Wound infection 3. Diabetes mellitus 4. CKD (chronic kidney disease) 5. Peripheral vascular disease 6. Antiphospholipid antibody syndrome Pain Ratin Pain Location: LLE Pain Goal: Remain pain free Pain Plan: Percocet Tomorrow's Labs & Rationales: CBC in setting of infection
--- NOTE | 2016-08-10 09:15 | PN- Diabetes ---
Assessment/Plan Assessment: The patient has been moved to general medicine and the family does not wish aggressive treatment at this time. The patient is on thickened liquids and his po intake has been improving. Patient states he feels improved. He states he is eating much better than before. The patient is apparently scheduled for a skin biopsy. Apparently surgery is on hold until his INR comes down. There are other issues which are still open- ended including whether the skin lesions are related to calciphylaxis versus pyoderma gangrenosum as mentioned and Harjit's note, This would alter his current therapy. 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 With regard to his steroid therapy the patient is doing well on prednisone 5 mg once a day. He has not developed any hypotension. Fingerstick blood sugars yesterday were 183 before breakfast, 333 before lunch, 215 at supper time and 180 at bedtime. This morning his fingerstick sugar was 72. Plan: Suggest continue the present insulin. Plans need to be made with regard to vascular surgery for creation of a fistula next week as well as a skin biopsy. I believe the date for this to take place would be next . This needs to be confirmed. The patient will probably need to be bridged with heparin. Once a day to settled upon Coumadin should be stopped and heparin should be started. Subjective Subjective: Feels okay Objective Last 24 Hrs of Vital Signs/I&O Vital Signs Date Time Temp Pulse Resp B/P Pulse O2 O2 Flow FiO2 Ox Delivery Rate 08/10 0749 83 124/60 08/10 0849 83 124/60 08/10 0712 98.7 83 20 124/60 95 Room Air 08/09 2340 98.9 87 20 123/48 92 Room Air 08/09 2229 120/62 08/09 1731 101 128/60 08/09 1731 101 128/60 08/09 1545 97.8 101 18 128/60 92 Room Air Intake & Output 08/10 1600 08/10 0800 08/10 0000 Intake Total 428 310.5 Output Total Balance 428 310.5 Intake, IV 188 70.5 Intake, Oral 240 240 Number 1 1 Bowel Movements Patient 146 lb Weight Vital Signs Date Time Temp Pulse Resp B/P Pulse O2 O2 Flow FiO2 Ox Delivery Rate 08/10 0849 83 124/60 08/10 0849 83 124/60 08/10 0712 98.7 83 20 124/60 95 Room Air 08/09 2340 98.9 87 20 123/48 92 Room Air 08/09 2229 120/62 08/09 1731 101 128/60 08/09 1731 101 128/60 08/09 1545 97.8 101 18 128/60 92 Room Air Intake & Output 08/10 1600 08/10 0800 08/10 0000 Intake Total 428 310.5 Output Total Balance 428 310.5 Intake, IV 188 70.5 Intake, Oral 240 240 Number 1 1 Bowel Movements Patient 146 lb Weight Physical Exam General Appearance: well developed/nourished Head: normal appearance Neck: normal inspection Respiratory: normal breath sounds Cardiovascular: regular rate/rhythm Abdomen: normal bowel sounds Extremities: left leg bandaged Current Medications: Current Medications Sig/Kailash Start time Last Medication Dose Route Stop Time Status Admin Acetaminophen 650 MG Q6P PRN 07/22 1700 AC 08/08 PO 1153 Apixaban 5 MG BID 08/08 2200 DC 08/08 PO 2156 Aspirin 81 MG DAILY 07/01 1000 AC 08/10 PO 0849 Atorvastatin Calcium 40 MG 1700 06/30 1700 AC 08/09 PO 1732 Carvedilol 25 MG BID 08/02 2200 AC 08/10 PO 0849 Collagenase 1 CHAITANYA DAILY 08/02 1815 AC 08/09 TOP 1126 Epoetin Ludwig 3,000 UNIT MoWeFr PRN 07/08 1200 AC IV Epoetin Ludwig 2,000 UNIT MoWeFr PRN 07/08 1200 AC IV Fluconazole 400 MG MoWeFr@08/07 2000 AC 08/09 PO 2213 Guaifenesin 600 MG Q12 07/18 1000 AC 08/10 PO 0849 Heparin Sodium 25,000 UNIT Q24H 08/09 1045 AC 08/09 (Porcine) IV 1903 Sodium Chloride 500 ML Insulin Aspart 0 AC & AT BEDTIME 08/03 1200 AC 08/09 SC 1728 Insulin Detemir 5 UNITS DAILY 08/04 1000 AC 08/10 SC 0850 Iron Sucrose 100 MG PER PROTOCL PRN 07/01 1430 AC 07/03 Sodium Chloride 100 ML IV 1221 Magnesium Oxide 400 MG Q2 08/09 2200 DC PO 08/10 0001 Multivitamins 1 TAB DAILY 07/01 1000 AC 08/10 PO 0849 Omeprazole 40 MG DAILY AC 12/18 0700 AC 08/10 PO 0538 Oxycodone/ 2 TAB Q8P PRN 08/04 1015 AC 08/09 Acetaminophen PO 1122 Potassium Chloride 40 MEQ ONCE ONE 08/09 2014 CAN PO 08/09 2016 Prednisone 5 MG DAILY 08/06 1000 AC 08/10 PO 0849 Sevelamer Carbonate 800 MG WITH MEALS 06/30 1200 AC 08/10 PO 0849 Sodium Chloride 2 SPRAY Q10MIN PRN 07/12 0230 AC CARLITOS Sodium Hypochlorite 1 CHAITANYA BID 07/05 1113 AC 08/09 TOP 2214 Sodium Thiosulfate 25 GM MoWeFr 08/05 1400 AC 08/09 Sodium Chloride 150 ML IV 1400 Tamsulosin HCl 0.4 MG DAILY 07/01 1000 AC 08/10 PO 0849 Vitamin A/Vitamin D 1 CHAITANYA BID 06/30 2200 AC 08/10 TOP 0850 Zinc Oxide 1 CHAITANYA BID 06/30 2200 AC 08/10 TOP 0850 Findings Pertinent Lab/Avtar Results: Laboratory Tests 08/10 08/09 0055 1333 Chemistry Sodium (137 - 145 mmol/L) 138 Potassium (3.5 - 5.1 mmol/L) 3.7 Chloride (98 - 107 mmol/L) 101 Carbon Dioxide (22 - 30 mmol/L) 25 Anion Gap (5 - 16) 12 BUN (9 - 20 mg/dL) 20 Creatinine (0.7 - 1.2 mg/dL) 2.3 H Estimated GFR (>60 ml/min) 28 L BUN/Creatinine Ratio (7 - 25 %) 8.7 Phosphorus (2.5 - 4.5 mg/dL) 2.2 L Magnesium (1.6 - 2.3 mg/dL) 1.4 L Albumin (3.5 - 5.0 g/dL) 2.2 L Coagulation PT (9.4 - 12.5 SEC) 21.8 H INR (0.90 - 1.17) 2.09 H APTT (25 - 37 SEC) 87 H Hematology CBC w Diff NO MAN DIFF REQ WBC (4.8 - 10.8 /CUMM) 11.4 H RBC (4.70 - 6.10 /CUMM) 3.25 L Hgb (14.0 - 18.0 G/DL) 9.1 L Hct (42 - 52 %) 29.1 L MCV (80.0 - 94.0 FL) 89.5 MCH (27.0 - 31.0 PG) 27.9 RDW (11.5 - 14.5 %) 20.2 H Plt Count (130 - 400 /CUMM) 281 MPV (7.4 - 10.4 FL) 9.0 Gran % (42.2 - 75.2 %) 78.9 H Lymphocytes % (20.5 - 51.1 %) 9.5 L Monocytes % (1.7 - 9.3 %) 7.5 Eosinophils % (0 - 5 %) 3.7 Basophils % (0.0 - 2.0 %) 0.4 Absolute Granulocytes (1.4 - 6.5 /CUMM) 9.0 H Absolute Lymphocytes (1.2 - 3.4 /CUMM) 1.1 L Absolute Monocytes (0.10 - 0.60 /CUMM) 0.9 H Absolute Eosinophils (0.0 - 0.7 /CUMM) 0.4 Absolute Basophils (0.0 - 0.2 /CUMM) 0 PUBS MCHC (33.0 - 37.0 G/DL) 31.1 L
[2016-08-10 14:02] LABS: PTT 89 SEC (25-37)
--- NOTE | 2016-08-10 15:50 | PN- Att Addend ---
Attending MD Review Statement Attending Statement Attending MD Statement: examined this patient, discuss w/resident/PA/DRAFTING INSTRUCTOR, agreed w/resident/PA/DRAFTING INSTRUCTOR, discussed with family, reviewed EMR data (avail), discussed w/ nursing Attending Assessment/Plan: Patient seen and examined at bedside and agree with the resident's care plan. Discussed with patient's at bedside the care plan. End-stage renal disease on hemodialysis. Patient is on Friday ,friday and Friday dialysis. Vascular surgery is planning to do AV fistula placement on Friday. Currently patient is off Coumadin and on IV heparin. Will continue with that. Vascular surgery also planning to do a skin biopsy at the same time to rule out calciphylaxis.
[2016-08-10 16:42] VITALS: BP 102/54
[2016-08-10 23:40] VITALS: BP 136/70
[2016-08-11 02:10] LABS: PTT 96 SEC (25-37)
--- NOTE | 2016-08-11 06:03 | PN- Housestaff ---
MAURISIO HEATH,HARMEET 08/11/16 0602: Subjective Follow-up For: Nonhealing ulcer on LLE Subjective: Patient seen and examined this morning. Patient is fully awake and arousable, answering all the questions this morning. No events reported overnight. Awaiting AV fistula placement on Friday or Friday. Afebrile over the past 24 hours. No new complaints, no events reported overnight. Review of Systems Constitutional: Reports: see HPI. Objective Last 24 Hrs of Vital Signs/I&O Vital Signs Date Time Temp Pulse Resp B/P Pulse O2 O2 Flow FiO2 Ox Delivery Rate 08/11 0907 97.6 76 18 118/58 96 Room Air 08/11 0901 76 118/58 08/11 0901 76 118/58 08/10 2340 98.0 83 18 136/70 92 Room Air 08/10 2104 103 134/76 08/10 1642 98.5 84 20 102/54 93 Intake & Output 08/11 1600 08/11 0800 08/11 0000 Intake Total 310.5 Output Total Balance 310.5 Intake, IV 70.5 Intake, Oral 240 Number 1 6 Bowel Movements Patient 66.366 kg Weight Physical Exam General Appearance: Alert, Oriented X3, Cooperative, No Acute Distress Other Physical Findings: Cardiovascular: Denies: chest pain, palpitations. Respiratory: Denies: cough, short of breath, sputum production. Gastrointestinal: Denies: abdominal pain, constipation, diarrhea, nausea, vomiting. Current Medications: Current Medications Sig/Kailash Start time Last Medication Dose Route Stop Time Status Admin Acetaminophen 650 MG Q6P PRN 07/22 1700 AC 08/11 PO 0458 Aspirin 81 MG DAILY 07/01 1000 AC 08/11 PO 0835 Atorvastatin Calcium 40 MG 1700 / 1700 AC 08/10 PO 1816 Carvedilol 25 MG BID 08/02 2200 AC 08/11 PO 0901 Collagenase 1 CHAITANYA DAILY 08/02 1815 08/10 TOP 1301 Epoetin Ludwig 3,000 UNIT MoWeFr PRN 07/08 1200 AC IV Epoetin Ludwig 2,000 UNIT MoWeFr PRN 07/08 1200 AC IV Fluconazole 400 MG MoWeFr@2000 08/07 1999 AC 08/09 PO 2213 Guaifenesin 600 MG Q12 07/18 1000 AC 08/11 PO 0834 Heparin Sodium 25,000 UNIT Q24H 08/09 1045 AC 08/10 (Porcine) IV 1709 Sodium Chloride 500 ML Insulin Aspart 0 AC & AT BEDTIME 08/03 1200 AC 08/11 SC 0835 Insulin Detemir 5 UNITS DAILY 08/04 1000 AC 08/11 SC 0835 Iron Sucrose 100 MG PER PROTOCL PRN 07/01 1430 AC 07/03 Sodium Chloride 100 ML IV 1221 Multivitamins 1 TAB DAILY 07/01 1000 AC 08/11 PO 0834 Omeprazole 40 MG DAILY AC 07/14 0700 AC 08/11 PO 0458 Oxycodone/ 2 TAB Q8P PRN 08/04 1015 DC 08/10 Acetaminophen PO 2101 Prednisone 5 MG DAILY 08/06 1000 AC 08/11 PO 0834 Sevelamer Carbonate 800 MG WITH MEALS 06/30 1200 AC 08/11 PO 0834 Sodium Chloride 2 SPRAY Q10MIN PRN 07/12 0230 AC CARLITOS Sodium Hypochlorite 1 CHAITANYA BID 07/05 1113 AC 08/11 TOP 0855 Sodium Thiosulfate 25 GM MoWeFr 08/05 1400 AC 08/09 Sodium Chloride 150 ML IV 1400 Tamsulosin HCl 0.4 MG DAILY 07/01 1000 AC 08/11 PO 0901 Vitamin A/Vitamin D 1 CHAITANYA BID 06/30 2200 AC 08/10 TOP 2055 Zinc Oxide 1 CHAITANYA BID 06/30 2200 08/11 TOP 0856 Last 24 Hrs of Lab/Avtar Results Last 24 Hrs of Labs/Mics: Laboratory Tests 08/11/16 1000: APTT 73 H 08/11/16 0610: Anion Gap 13, Estimated GFR 28 L, BUN/Creatinine Ratio 7.8, CBC w Diff NO MAN DIFF REQ, RBC 2.95 L, MCV 90.2, MCH 27.5, RDW 22.1 H, MPV 8.9, Gran % 68.2, Lymphocytes % 18.0 L, Monocytes % 9.3, Eosinophils % 3.9, Basophils % 0.6, Absolute Granulocytes 5.6, Absolute Lymphocytes 1.5, Absolute Monocytes 0.8 H, Absolute Eosinophils 0.3, Absolute Basophils 0, PUBS MCHC 30.5 L 08/11/16 0125: APTT 96 H 08/10/16 1330: APTT 89 H Assessment/Plan Assessment: 75 y/o M with PMHx of antiphospholipid antibody syndrome, diabetes and CKD who presented with SOB, hoarseness and stridor, found to be uremic with initiation of HD, s/p debridement of chronic left leg ulcer, on IV vancomycin for soft tissue infection, currently awaiting outpatient dialysis slot. Fever of unknown origin: Continue fluconazole 400mg PO after every dialysis. CT abdomen and chest has not revealed any source of infection. ID following, will follow recs. Anemia : Etiology multifactorial. Currently HDS. Per GI anemia likely secondary to other causes then GI. Will have patient follow-up with GI as an outpatient. We'll continue iron supplementation and Epogen. Chronic left lower extremity ulcer: Nonhealing ulcer on left lower extremity along with multiple other ulcers. As per Dr. Pretty, Dr. Bryan we'll do a punch biopsy at that site for diagnoses of calciphylaxis. Antiphospholipid antibody syndrome: chronic right upper extremity DVT. On life- long anti-coagulation with warfarin, takes 5 mg PO QD. * Coumadin on hold,started on IV heparin, he is to get AV fistula placement on Friday, got venous mapping done yesterday, further anticoagulation will be dependent on if biopsy positive for diagnoses of calciphylaxis. ESRD: Cr was 5 on admission, with gradual increase from 2-3 within the past year. Most likely etiology is progressive diabetic nephropathy. Mj cath was placed and urgent hemodialysis was initiated (06/26) with improvement of mental status. Patient is currently awaiting outpatient dialysis slot. * Nephrology following * Mj Cath in place, Continue HD MWF * Continue sevelamer 800 mg PO TIDAC. 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 T2DM: Uncontrolled blood sugars this admission, secondary to steroids. * Endocrinology following * Levemir 4U SQ DAILY * Continue NovoLog SSI TIDAC as suggested HTN: Takes amlodipine 10 mg PO QD, carvedilol 25 mg PO BID, furosemide 80 mg PO BID and hydralazine 50 mg PO BID at home. * Holding home amlodipine, furosemide and hydralazine. * Continue home carvedilol. Crohn's disease: Patient has been taking prednisone 10 mg PO QD for many years to prevent flares. * prednisone 5 mg daily. If patient at any time gets hypotensive, given a stress dose of steroid followed by increasing dose of prednisone to 10 mg daily * Aspirin GI, the patient to remain on aspirin, Protonix needed to be added. * C diff negative Diet: Renal Dialysis Diet (regular and nectar thick liquids) DVT PPx: Warfarin and ALPs CODE: FULL Problem List: 1. Peripheral vascular disease 2. Chronic ulcer of left lower extremity Pain Ratin Pain Location: LLE Pain Goal: Pain 4 or less Pain Plan: Mild-moderate pathway Tomorrow's Labs & Rationales: CBC in setting of infection BLACKWELLSARBJIT KRISHNAMURTHYDong 08/16/16 1246: Attending MD Review Statement Attending Statement Attending MD Statement: examined this patient, discuss w/resident/PA/AZURE PRINCIPAL SOLUTION SPECIALIST, agreed w/resident/PA/AZURE PRINCIPAL SOLUTION SPECIALIST, discussed with family, reviewed EMR data (avail) Attending Assessment/Plan: End-stage renal disease on hemodialysis. Patient is on Friday ,friday and Friday dialysis. Vascular surgery is planning to do AV fistula placement on Friday. Currently patient is off Coumadin and on IV heparin. Will continue with that. Vascular surgery also planning to do a skin biopsy at the same time to rule out calciphylaxis. Pt was little confused this afternoon. will monitor him closely as pt previously also has deteriorated after episode of confusion.
[2016-08-11 07:58] LABS: ABSOLUTE BASOPHIL COUNT 0 /CUMM (0.0-0.2); ABSOLUTE EOSINOPHIL COUNT 0.3 /CUMM (0.0-0.7); ABSOLUTE GRANULOCYTE CT 5.6 /CUMM (1.4-6.5); ABSOLUTE LYMPH COUNT 1.5 /CUMM (1.2-3.4); ABSOLUTE MONOCYTE COUNT 0.8 /CUMM (0.10-0.60); BASOPHIL % 0.6 % (0.0-2.0); EOSINOPHIL % 3.9 % (0-5); GRANULOCYTE % 68.2 % (42.2-75.2); HEMATOCRIT 26.6 % (42-52); MEAN CORPUSCULAR HGB 27.5 PG (27.0-31.0); MEAN CORPUSCULAR HGB CONC 30.5 G/DL (33.0-37.0); MEAN CORPUSCULAR VOLUME 90.2 FL (80.0-94.0); MEAN PLATELET VOLUME 8.9 FL (7.4-10.4); PLATELET COUNT 190 /CUMM (130-400); RBC DISTRIBUTION WIDTH 22.1 % (11.5-14.5); RED BLOOD CELL CT 2.95 /CUMM (4.70-6.10); WHITE BLOOD CELL COUNT 8.3 /CUMM (4.8-10.8)
[2016-08-11 09:07] VITALS: BP 118/58
--- NOTE | 2016-08-11 10:30 | NUR ---
PTT =73; THERAPEUTIC PER HEPARIN GTT PROTOCOL; RATE REMAINS AT 20.9 ML/HR; NEXT PTT DUE 08/11/16 AT 2230 PER HEPARIN GTT PROTOCOL;
[2016-08-11 10:32] LABS: PTT 73 SEC (25-37)
--- NOTE | 2016-08-11 10:39 | PN- Diabetes ---
Assessment/Plan Assessment: The patient has been moved to general medicine and the family does not wish aggressive treatment at this time. The patient is on thickened liquids and his po intake has been improving. Patient states he feels improved. He states he is eating much better than before. His became somewhat high yesterday with a reading of 208 before dinner 208 before lunch, 203 before dinner, and 308 at bedtime. The patient is on Levemir 5 units once a day in the morning as well as sliding scale NovoLog. The patient is apparently scheduled for a skin biopsy. Apparently surgery is on hold until his INR comes down. There are other issues which are still open- ended including whether the skin lesions are related to calciphylaxis versus pyoderma gangrenosum as mentioned and Harjit's note, This would alter his current therapy. 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 With regard to his steroid therapy the patient is doing well on prednisone 5 mg once a day. He has not developed any hypotension. Fingerstick blood sugars yesterday were 183 before breakfast, 333 before lunch, 215 at supper time and 180 at bedtime. This morning his fingerstick sugar was 72. Plan: Suggest continue Levemir 5 units once a day each a.m. I would like to increase his sliding scale NovoLog before meals to be 100-150 give 4 units NovoLog, 151- 200 give 5 units NovoLog, 201-250 give 6 units NovoLog, 251-300 give 7 units NovoLog, 301-350 give 8 units NovoLog, 351 of 400 give 9 units NovoLog. Bedtime sliding scale NovoLog can stay as written. Subjective Subjective: Feels improved Review of Systems Constitutional: Denies: chills, fever. Cardiovascular: Denies: chest pain. Respiratory: Denies: cough, short of breath. Gastrointestinal: Denies: abdominal pain. Skin: Reports: lesions (left leg). Objective Last 24 Hrs of Vital Signs/I&O Vital Signs Date Time Temp Pulse Resp B/P Pulse O2 O2 Flow FiO2 Ox Delivery Rate 08/11 0907 97.6 76 18 118/58 96 Room Air 08/11 0901 76 118/58 08/11 0901 76 118/58 08/10 2340 98.0 83 18 136/70 92 Room Air 08/10 2104 103 134/76 08/10 1642 98.5 84 20 102/54 93 Intake & Output 08/11 1600 08/11 0800 08/11 0000 Intake Total 310.5 Output Total Balance 310.5 Intake, IV 70.5 Intake, Oral 240 Number 1 6 Bowel Movements Patient 146 lb Weight Vital Signs Date Time Temp Pulse Resp B/P Pulse O2 O2 Flow FiO2 Ox Delivery Rate 08/11 0907 97.6 76 18 118/58 96 Room Air 08/11 0901 76 118/58 08/11 0901 76 118/58 08/10 2340 98.0 83 18 136/70 92 Room Air 08/10 2104 103 134/76 08/10 1642 98.5 84 20 102/54 93 Intake & Output 08/11 1600 08/11 0800 08/11 0000 Intake Total 310.5 Output Total Balance 310.5 Intake, IV 70.5 Intake, Oral 240 Number 1 6 Bowel Movements Patient 146 lb Weight Physical Exam General Appearance: alert, awake, comfortable Head: normal appearance Neck: normal inspection Respiratory: normal breath sounds Cardiovascular: regular rate/rhythm Abdomen: normal bowel sounds, soft Extremities: left leg bandaged Current Medications: Current Medications Sig/Kailash Start time Last Medication Dose Route Stop Time Status Admin Acetaminophen 650 MG Q6P PRN 07/22 1700 AC 08/11 PO 0458 Aspirin 81 MG DAILY 07/01 1000 AC 08/11 PO 0835 Atorvastatin Calcium 40 MG 1700 06/30 1700 AC 08/10 PO 1816 Carvedilol 25 MG BID 08/02 2200 AC 08/11 PO 0901 Collagenase 1 CHAITANYA DAILY 08/02 1815 AC 08/10 TOP 1301 Epoetin Ludwig 3,000 UNIT MoWeFr PRN 07/08 1200 AC IV Epoetin Ludwig 2,000 UNIT MoWeFr PRN 07/08 1200 AC IV Fluconazole 400 MG MoWeFr@08/07 2000 AC 08/09 PO 2213 Guaifenesin 600 MG Q12 07/18 1000 AC 08/11 PO 0834 Heparin Sodium 25,000 UNIT Q24H 08/09 1045 AC 08/10 (Porcine) IV 1709 Sodium Chloride 500 ML Insulin Aspart 0 AC & AT BEDTIME 08/03 1200 AC 08/11 SC 0835 Insulin Detemir 5 UNITS DAILY 08/04 1000 AC 08/11 SC 0835 Iron Sucrose 100 MG PER PROTOCL PRN 07/01 1430 AC 07/03 Sodium Chloride 100 ML IV 1221 Multivitamins 1 TAB DAILY 07/01 1000 AC 08/11 PO 0834 Omeprazole 40 MG DAILY AC 07/14 0700 AC 08/11 PO 0458 Oxycodone/ 2 TAB Q8P PRN 08/04 1015 DC 08/10 Acetaminophen PO 2101 Prednisone 5 MG DAILY 08/06 1000 AC 08/11 PO 0834 Sevelamer Carbonate 800 MG WITH MEALS 06/30 1200 AC 08/11 PO 0834 Sodium Chloride 2 SPRAY Q10MIN PRN 07/12 0230 AC CARLITOS Sodium Hypochlorite 1 CHAITANYA BID 07/05 1113 AC 08/11 TOP 0855 Sodium Thiosulfate 25 GM MoWeFr 08/05 1400 AC 08/09 Sodium Chloride 150 ML IV 1400 Tamsulosin HCl 0.4 MG DAILY 07/01 1000 AC 08/11 PO 0901 Vitamin A/Vitamin D 1 CHAITANYA BID 06/30 2200 AC 08/10 TOP 2055 Zinc Oxide 1 CHAITANYA BID 06/30 2200 AC 08/11 TOP 0856 Findings Pertinent Lab/Avtar Results: Laboratory Tests 08/11 08/11 08/11 08/10 1000 0610 0125 1330 Chemistry Sodium (137 - 145 mmol/L) 140 Potassium (3.5 - 5.1 mmol/L) 4.0 Chloride (98 - 107 mmol/L) 103 Carbon Dioxide (22 - 30 mmol/L) 24 Anion Gap (5 - 16) 13 BUN (9 - 20 mg/dL) 18 Creatinine (0.7 - 1.2 mg/dL) 2.3 H Estimated GFR (>60 ml/min) 28 L BUN/Creatinine Ratio (7 - 25 %) 7.8 Coagulation APTT (25 - 37 SEC) 73 H 96 H 89 H Hematology CBC w Diff NO MAN DIFF REQ WBC (4.8 - 10.8 /CUMM) 8.3 RBC (4.70 - 6.10 /CUMM) 2.95 L Hgb (14.0 - 18.0 G/DL) 8.1 L Hct (42 - 52 %) 26.6 L MCV (80.0 - 94.0 FL) 90.2 MCH (27.0 - 31.0 PG) 27.5 RDW (11.5 - 14.5 %) 22.1 H Plt Count (130 - 400 /CUMM) 190 MPV (7.4 - 10.4 FL) 8.9 Gran % (42.2 - 75.2 %) 68.2 Lymphocytes % (20.5 - 51.1 %) 18.0 L Monocytes % (1.7 - 9.3 %) 9.3 Eosinophils % (0 - 5 %) 3.9 Basophils % (0.0 - 2.0 %) 0.6 Absolute Granulocytes (1.4 - 6.5 /CUMM) 5.6 Absolute Lymphocytes (1.2 - 3.4 /CUMM) 1.5 Absolute Monocytes (0.10 - 0.60 /CUMM) 0.8 H Absolute Eosinophils (0.0 - 0.7 /CUMM) 0.3 Absolute Basophils (0.0 - 0.2 /CUMM) 0 PUBS MCHC (33.0 - 37.0 G/DL) 30.5 L
[2016-08-11 16:00] VITALS: BP 103/47
--- NOTE | 2016-08-11 18:02 | PN- Att Addend ---
Attending MD Review Statement Attending Statement Attending MD Statement: examined this patient, discuss w/resident/PA/COUNSELING SERVICES DIRECTOR, agreed w/resident/PA/COUNSELING SERVICES DIRECTOR, reviewed EMR data (avail), discussed w/nursing Attending Assessment/Plan: Patient seen and examined at bedside and agree with the resident's care plan. Discussed with patient's at bedside the care plan. End-stage renal disease on hemodialysis. Patient is on Friday ,friday and Friday dialysis. Vascular surgery is planning to do AV fistula placement on Friday. Currently patient is off Coumadin and on IV heparin. Will continue with that. Vascular surgery also planning to do a skin biopsy at the same time to rule out calciphylaxis. Pt was little confused this afternoon. will monitor him closely as pt previously also has deteriorated after episode of confusion.
[2016-08-11 23:05] LABS: PTT 40 SEC (25-37)
[2016-08-12 00:27] VITALS: BP 140/74
--- NOTE | 2016-08-12 01:08 | NUR ---
ALERT AND ORIENTED X 3. VITAL SIGNS STABLE. ON ROOM AIR. DRESSINGS CHANGED PER PROTOCOL. HEPARIN RATE INCREASED TO 26.2ML/HR PER PROTOCOL. MEDICATION GIVEN FOR PAIN. WILL CONTINUE TO MONITOR
[2016-08-12 06:38] LABS: PTT > 120 SEC (25-37)
--- NOTE | 2016-08-12 07:38 | PN- Housestaff ---
Subjective Follow-up For: Nonhealing ulcer on LLE Subjective: Patient seen and examined this morning. He was sitting comfortably in bed eating his breakfast very cheerful this morning. He has been afebrile, is within normal limits. He is to get AV fistula placement and biopsy Nephrocaps calciphylaxis diagnosis tomorrow. No other new complaints. Review of Systems Constitutional: Denies: chills, fever. Respiratory: Denies: cough, short of breath, sputum production. Gastrointestinal: Denies: abdominal pain, constipation, diarrhea, nausea, vomiting. Genitourinary: Denies: dysuria, frequency. Objective Last 24 Hrs of Vital Signs/I&O Vital Signs Date Time Temp Pulse Resp B/P Pulse O2 O2 Flow FiO2 Ox Delivery Rate 08/12 0855 73 120/60 08/12 0855 73 120/60 08/12 0801 98.5 73 20 120/60 95 Room Air 08/12 0027 97.9 91 20 140/74 96 08/11 2347 65 140/60 08/11 1600 99.1 86 20 103/47 92 Intake & Output 08/12 1600 08/12 0800 08/12 0000 Intake Total 330 600 Output Total Balance 330 600 Intake, IV 210 Intake, Oral 120 600 Number 4 1 Bowel Movements Patient 67.302 kg Weight Physical Exam General Appearance: Alert, Oriented X3, Cooperative, No Acute Distress Cardiovascular: Regular Rate, Normal S1, Normal S2, No Murmurs Lungs: Clear to Auscultation, Normal Air Movement Abdomen: Normal Bowel Sounds, Soft, No Tenderness Extremities: LOWER LEFT EXTREMITY NONHEALING WOUND Current Medications: Current Medications Sig/Kailash Start time Last Medication Dose Route Stop Time Status Admin Acetaminophen 650 MG .STK-MED ONE 08/12 0035 DC PO 08/12 0036 Acetaminophen 650 MG .STK-MED ONE 08/11 1641 DC PO 08/11 1642 Acetaminophen 650 MG Q6P PRN 07/22 1700 AC 08/12 PO 0042 Aspirin 81 MG DAILY 07/01 1000 AC 08/12 PO 0856 Atorvastatin Calcium 40 MG 1700 06/30 1700 AC 08/11 PO 1647 Carvedilol 25 MG BID 08/02 2200 AC 08/12 PO 0855 Collagenase 1 CHAITANYA DAILY 08/02 1815 AC 08/11 TOP 1245 Epoetin Ludwig 3,000 UNIT MoWeFr PRN 07/08 1200 AC IV Epoetin Ludwig 2,000 UNIT MoWeFr PRN 07/08 1200 AC IV Fluconazole 400 MG MoWeFr@2000 08/07 2000 DC 08/09 PO 2213 Guaifenesin 600 MG Q12 07/18 1000 AC 08/12 PO 0855 Heparin Sodium 5,000 UNIT .STK-MED ONE 08/12 0031 DC (Porcine) IV 08/12 0032 Heparin Sodium 4,977 UNIT BOLUS ONE 08/11 2330 DC 08/12 (Porcine) IV 08/11 2331 0036 Heparin Sodium 25,000 UNIT Q24H 08/09 1045 AC 08/11 (Porcine) IV 2350 Sodium Chloride 500 ML Insulin Aspart 0 AC & AT BEDTIME 08/03 1200 AC 08/12 SC 0856 Insulin Detemir 5 UNITS DAILY 08/04 1000 AC 08/12 SC 0856 Iron Sucrose 100 MG PER PROTOCL PRN 07/01 1430 AC 07/03 Sodium Chloride 100 ML IV 1221 Multivitamins 1 TAB DAILY 07/01 1000 AC 08/12 PO 0855 Omeprazole 40 MG DAILY AC 07/14 0700 AC 08/12 PO 0601 Oxycodone/ 2 TAB Q8P PRN 08/04 1015 DC 08/10 Acetaminophen PO 2101 Prednisone 5 MG DAILY 08/06 1000 AC 08/12 PO 0855 Sevelamer Carbonate 800 MG WITH MEALS 06/30 1200 AC 08/12 PO 0856 Sodium Chloride 2 SPRAY Q10MIN PRN 07/12 0230 AC CARLITOS Sodium Hypochlorite 1 CHAITANYA BID 07/05 1113 AC 08/11 TOP 2346 Sodium Thiosulfate 25 GM MoWeFr 08/05 1400 AC 08/09 Sodium Chloride 150 ML IV 1400 Tamsulosin HCl 0.4 MG DAILY 07/01 1000 AC 08/12 PO 0855 Vitamin A/Vitamin D 1 CHAITANYA BID 06/30 2200 AC 08/12 TOP 0857 Zinc Oxide 1 CHAITANYA BID 06/30 2200 08/12 TOP 0856 Last 24 Hrs of Lab/Avtar Results Last 24 Hrs of Labs/Mics: Laboratory Tests 08/12/16 0550: APTT > 120 *H 08/11/16 2250: APTT 40 H 08/11/16 1000: APTT 73 H Assessment/Plan Assessment: 75 y/o M with PMHx of antiphospholipid antibody syndrome, diabetes and CKD who presented with SOB, hoarseness and stridor, found to be uremic with initiation of HD, s/p debridement of chronic left leg ulcer, on IV vancomycin for soft tissue infection, currently awaiting outpatient dialysis slot. Fever of unknown origin: Continue fluconazole 400mg PO after every dialysis. CT abdomen and chest has not revealed any source of infection. ID following, will follow recs. Anemia : Etiology multifactorial. Currently HDS. Per GI anemia likely secondary to other causes then GI. Will have patient follow-up with GI as an outpatient. We'll continue iron supplementation and Epogen. Chronic left lower extremity ulcer: Nonhealing ulcer on left lower extremity along with multiple other ulcers. As per Dr. Pretty, Dr. Bryan we'll do a punch biopsy at that site for diagnoses of calciphylaxis tomorrow, along with AV fistula placement. Antiphospholipid antibody syndrome: chronic right upper extremity DVT. On life- long anti-coagulation with warfarin, takes 5 mg PO QD. * Coumadin on hold,started on IV heparin(needs to be held tomorrow morning, also to get stress dose of Solu-Cortef before he goes for AV fistula placement), he is to get AV fistula placement tomorrow, got venous mapping done as per vascular AV fistula will be put and on right upper extremity., further anticoagulation will be dependent on if biopsy positive for diagnoses of calciphylaxis. ESRD: Cr was 5 on admission, with gradual increase from 2-3 within the past year. Most likely etiology is progressive diabetic nephropathy. Mj cath was placed and urgent hemodialysis was initiated (06/26) with improvement of mental status. Patient is currently awaiting outpatient dialysis slot. * Nephrology following * Mj Cath in place, Continue HD MWF * Continue sevelamer 800 mg PO TIDAC. 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 T2DM: Uncontrolled blood sugars this admission, secondary to steroids. * Endocrinology following * Levemir 4U SQ DAILY * Continue NovoLog SSI TIDAC as suggested HTN: Takes amlodipine 10 mg PO QD, carvedilol 25 mg PO BID, furosemide 80 mg PO BID and hydralazine 50 mg PO BID at home. * Holding home amlodipine, furosemide and hydralazine. * Continue home carvedilol. Crohn's disease: Patient has been taking prednisone 10 mg PO QD for many years to prevent flares. * prednisone 5 mg daily. If patient at any time gets hypotensive, given a stress dose of steroid followed by increasing dose of prednisone to 10 mg daily * Aspirin GI, the patient to remain on aspirin, Protonix needed to be added. * C diff negative Diet: Renal Dialysis Diet (regular and nectar thick liquids) DVT PPx: Heparin and ALPs CODE: FULL Problem List: 1. Crohns disease 2. Peripheral vascular disease 3. Type 2 diabetes mellitus 4. Chronic ulcer of left lower extremity Pain Ratin Pain Location: LLE Pain Goal: Remain pain free Pain Plan: percocet Tomorrow's Labs & Rationales: None
[2016-08-12 08:01] VITALS: BP 120/60
--- NOTE | 2016-08-12 08:08 | PN- Diabetes ---
See Addendum Assessment/Plan Assessment: The patient has been moved to general medicine and the family does not wish aggressive treatment at this time. The patient is on thickened liquids and his po intake has been improving. Patient states he feels improved. He states he is eating much better than before. Before meal insulin was adjusted yesterday. The patient is on Levemir 5 units once a day in the morning as well as sliding scale NovoLog. Fingerstick blood sugars yesterday were 209 before breakfast, 244 before lunch, 242 before dinner, and 188 at bedtime. The patient is apparently scheduled for a skin biopsy and fistula creation perhaps tomorrow. He is being treated with IV heparin There are other issues which are still open-ended including whether the skin lesions are related to calciphylaxis versus pyoderma gangrenosum as mentioned and Harjit's note, This would alter his current therapy. 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 With regard to his steroid therapy the patient is doing well on prednisone 5 mg once a day. He has not developed any hypotension. Plan: Suggest continue the present insulin regimen. Await the creation of the fistula and skin biopsy tomorrow. Continue prednisone 5 mg once a day. However tomorrow I would give Solu-Cortef 100 mg IV bolus half-hour before the OR procedure. Subjective Subjective: Feels improved Review of Systems Constitutional: Denies: chills, fever. Cardiovascular: Denies: chest pain. Respiratory: Denies: short of breath. Gastrointestinal: Denies: nausea, vomiting. Skin: Reports: lesions (left leg). Objective Last 24 Hrs of Vital Signs/I&O Vital Signs Date Time Temp Pulse Resp B/P Pulse O2 O2 Flow FiO2 Ox Delivery Rate 08/12 0801 98.5 73 20 120/60 95 Room Air 08/12 0027 97.9 91 20 140/74 96 08/11 2347 65 140/60 08/11 1600 99.1 86 20 103/47 92 08/11 0907 97.6 76 18 118/58 96 Room Air 08/11 0901 76 118/58 08/11 0901 76 118/58 Intake & Output 08/12 1600 08/12 0800 08/12 0000 Intake Total 330 600 Output Total Balance 330 600 Intake, IV 210 Intake, Oral 120 600 Number 4 1 Bowel Movements Patient 148 lb Weight Vital Signs Date Time Temp Pulse Resp B/P Pulse O2 O2 Flow FiO2 Ox Delivery Rate 08/12 0801 98.5 73 20 120/60 95 Room Air 08/12 0027 97.9 91 20 140/74 96 08/11 2347 65 140/60 08/11 1600 99.1 86 20 103/47 92 08/11 0907 97.6 76 18 118/58 96 Room Air 08/11 0901 76 118/58 08/11 0901 76 118/58 Intake & Output 08/12 1600 08/12 0800 08/12 0000 Intake Total 330 600 Output Total Balance 330 600 Intake, IV 210 Intake, Oral 120 600 Number 4 1 Bowel Movements Patient 148 lb Weight Physical Exam General Appearance: no apparent distress, alert, awake Head: normal appearance Neck: normal inspection Respiratory: normal breath sounds Cardiovascular: regular rate/rhythm Abdomen: normal bowel sounds Extremities: normal inspection Current Medications: Current Medications Sig/Kailash Start time Last Medication Dose Route Stop Time Status Admin Acetaminophen 650 MG .STK-MED ONE 08/11 1641 DC PO 08/11 1642 Acetaminophen 650 MG Q6P PRN 07/22 1700 AC 08/12 PO 0042 Aspirin 81 MG DAILY 07/01 1000 AC 08/11 PO 0835 Atorvastatin Calcium 40 MG 1700 06/30 1700 AC 08/11 PO 1647 Carvedilol 25 MG BID 08/02 2200 AC 08/11 PO 2347 Collagenase 1 CHAITANYA DAILY 08/02 1815 AC 08/11 TOP 1245 Epoetin Ludwig 3,000 UNIT MoWeFr PRN 07/08 1200 AC IV Epoetin Ludwig 2,000 UNIT MoWeFr PRN 07/08 1200 AC IV Fluconazole 400 MG MoWeFr@08/07 2000 DC 08/09 PO 2213 Guaifenesin 600 MG Q12 07/18 1000 AC 08/11 PO 2347 Heparin Sodium 4,977 UNIT BOLUS ONE 08/11 2330 DC 08/12 (Porcine) IV 08/11 2331 0036 Heparin Sodium 25,000 UNIT Q24H 08/09 1045 AC 08/11 (Porcine) IV 2350 Sodium Chloride 500 ML Insulin Aspart 0 AC & AT BEDTIME 08/03 1200 AC 08/11 SC 1729 Insulin Detemir 5 UNITS DAILY 08/04 1000 AC 08/11 SC 0835 Iron Sucrose 100 MG PER PROTOCL PRN 07/01 1430 AC 07/03 Sodium Chloride 100 ML IV 1221 Multivitamins 1 TAB DAILY 07/01 1000 AC 08/11 PO 0834 Omeprazole 40 MG DAILY AC 07/14 0700 AC 08/12 PO 0601 Oxycodone/ 2 TAB Q8P PRN 08/04 1015 DC 08/10 Acetaminophen PO 2101 Prednisone 5 MG DAILY 08/06 1000 AC 08/11 PO 0834 Sevelamer Carbonate 800 MG WITH MEALS 06/30 1200 AC 08/11 PO 1724 Sodium Chloride 2 SPRAY Q10MIN PRN 07/12 0230 AC CARLITOS Sodium Hypochlorite 1 CHAITANYA BID 07/05 1113 AC 08/11 TOP 2346 Sodium Thiosulfate 25 GM MoWeFr 08/05 1400 AC 08/09 Sodium Chloride 150 ML IV 1400 Tamsulosin HCl 0.4 MG DAILY 07/01 1000 AC 08/11 PO 0901 Vitamin A/Vitamin D 1 CHAITANYA BID 06/30 2200 AC 08/11 TOP 2343 Zinc Oxide 1 CHAITANYA BID 06/30 2200 AC 08/11 TOP 2347 Findings Pertinent Lab/Avtar Results: Laboratory Tests 08/12 08/11 08/11 0550 2250 1000 Coagulation APTT (25 - 37 SEC) > 120 *H 40 H 73 H
--- NOTE | 2016-08-12 09:39 | NUR ---
RECEIVED PT AWAKE IN BED. ASKED PT. IF HE WANTED TO PARTICIPATE IN SOME THEREX, BUT PT. STATED HE HAS BEEN DOING SOME LOWER EXTREMITY EXERCISES ON HIS OWN AND DID NOT WANT TO PARTICIPATE AT THIS TIME. CONT PT PER POC.
--- NOTE | 2016-08-12 13:37 | PN- Infect Dx ---
Subjective Subjective: Afebrile without complaints Objective Last 24 Hrs of Vital Signs/I&O Vital Signs Date Time Temp Pulse Resp B/P Pulse O2 O2 Flow FiO2 Ox Delivery Rate 08/12 1041 Room Air Room Air 08/12 0855 73 120/60 08/12 0855 73 120/60 08/12 0801 98.5 73 20 120/60 95 Room Air 08/12 0027 97.9 91 20 140/74 96 08/11 2347 65 140/60 08/11 1600 99.1 86 20 103/47 92 Intake & Output 08/12 1600 08/12 0800 08/12 0000 Intake Total 330 600 Output Total 2 Balance -2 330 600 Intake, IV 210 Intake, Oral 120 600 Number 4 1 Bowel Movements Output, Stool 2 Patient 148 lb Weight Physical Exam Other Physical Findings: He appears comfortable in no acute distress Chest tunneled catheter in the right upper chest with no inflammation at the site Extremities left calf wound clean with necrosis of the inferior and superior aspects without change; necrotic lesions over the left thigh, dorsum of the left foot and right calf unchanged Results Last 24 Hours of Lab Results: Laboratory Tests 08/12 08/12 08/11 1245 0550 2250 Coagulation APTT (25 - 37 SEC) Pending > 120 *H 40 H Last 24 Hours of Avtar Results: No recent cultures Assessment/Plan Impression: Stable with temperatures remaining normal (on steroids) and with white blood cell count also normal on Fluconazole Day 13 for candiduria, with the repeat urine culture negative. He is scheduled for a right arm AV graft in the OR tomorrow, at which time a skin biopsy will also be performed to rule out calciphylaxis. Suggestion: 1. Await placement of AV graft and skin biopsy in the a.m. 2. Discontinue Fluconazole after today's dose and then follow off antibiotics
[2016-08-12 14:05] LABS: PTT 61 SEC (25-37)
--- NOTE | 2016-08-12 16:00 | PN- Att Addend ---
Attending MD Review Statement Attending Statement Attending MD Statement: examined this patient, discuss w/resident/PA/TELECOMMUNICATIONS SWITCH TECHNICIAN, agreed w/resident/PA/TELECOMMUNICATIONS SWITCH TECHNICIAN, reviewed EMR data (avail), discussed w/case mgmt Attending Assessment/Plan: Patient seen and examined at bedside and agree with the resident's care plan. Discussed with patient's at bedside the care plan. End-stage renal disease on hemodialysis. Patient is on Friday ,friday and Friday dialysis. Vascular surgery is planning to do AV fistula placement on Friday. Currently patient is off Coumadin and on IV heparin. Will continue with that. Vascular surgery also planning to do a skin biopsy at the same time to rule out calciphylaxis. Will make NPO past midnight tonight and will hold his levemir in am .
--- NOTE | 2016-08-12 16:12 | PN- Nephrology ---
Assessment/Plan Assessment: ESRD - HD today - plans for permanent access tomorrow. ?Calciphylaxis - Getting sodium thiosulfate for now. Given clotting issues, would be hesitant to switch warfarin to an alternative agent (without known efficacy in dialysis patients) unless there were a strong reason - this would be a strong reason - getting skin biopsy tomorrow. Anemia - On Epogen and IV venofer. Hypophosphatemia - May want to hold sevelamer until Phos >3.5. Suggestion: -HD today - 2L UF as tolerated -Permanent access to be placed tomorrow -Skin biopsy tomorrow - cont sodium thiosulfate pending biopsy results -Cont Epogen and venofer -Would hold sevelamer until phos >3.5 (should monitor levels with labs) Subjective Subjective: Pt seen and examined on hemodialysis No specific complaints On hep gtt Permanent access placement tomorrow and skin biopsy - on sodium thiosulfate for now Objective Vital Signs and I&Os Vital Signs Date Time Temp Pulse Resp B/P Pulse O2 O2 Flow FiO2 Ox Delivery Rate 08/12 1041 Room Air Room Air 08/12 0855 73 120/60 08/12 0855 73 120/60 08/12 0801 98.5 73 20 120/60 95 Room Air 08/12 0027 97.9 91 20 140/74 96 08/11 2347 65 140/60 08/11 1600 99.1 86 20 103/47 92 Intake & Output 08/12 1600 08/12 0400 08/11 1600 08/11 0400 08/10 1600 08/10 0400 Intake Total 776 438 2812.2 310.5 1096 310.5 Output Total 352 0 0 Balance 763 059 5482.2 310.5 1096 310.5 Intake, IV 398 167.2 70.5 376 70.5 Intake, Oral 589 740 0833 240 720 240 Number 4 3 3 6 3 1 Bowel Movements Output, Stool 2 Output, Urine 350 0 0 Patient 148 lb 146 lb 146 lb Weight Physical Exam: Gen - NAD HEENT - supple CV - RRR Chest - CTAB Abd - soft, nontender Ext - no edema Skin - necrotic wound visible on L inner thigh Neuro - alert, conversive Current Medications: Current Medications Sig/Kailash Start time Last Medication Dose Route Stop Time Status Admin Acetaminophen 650 MG .STK-MED ONE 08/12 34 DC PO 01/16 0036 Acetaminophen 650 MG .STK-MED ONE 08/11 1641 DC PO 08/11 1642 Acetaminophen 650 MG Q6P PRN 07/22 1700 AC 08/12 PO 0042 Aspirin 81 MG DAILY 07/01 1000 AC 08/12 PO 0856 Atorvastatin Calcium 40 MG 1700 06/30 1700 AC 08/11 PO 1647 Carvedilol 25 MG BID 08/02 2200 AC 08/12 PO 0855 Collagenase 1 CHAITANYA DAILY 08/02 1815 AC 08/12 TOP 1233 Epoetin Ludwig 3,000 UNIT MoWeFr PRN 07/08 1200 AC IV Epoetin Ludwig 2,000 UNIT MoWeFr PRN 07/08 1200 AC IV Fluconazole 400 MG ONCE ONE 08/12 1345 DC PO 08/12 1346 Fluconazole 400 MG MoWeFr@08/07 DC 08/09 PO 2213 Guaifenesin 600 MG Q12 07/18 1000 08/12 PO 0855 Heparin Sodium 5,000 UNIT .STK-MED ONE 08/12 0031 DC (Porcine) IV 08/12 0032 Heparin Sodium 4,977 UNIT BOLUS ONE 08/11 2330 DC 08/12 (Porcine) IV 08/11 2331 0036 Heparin Sodium 25,000 UNIT Q24H 08/09 1045 AC 08/11 (Porcine) IV 08/13 0600 2350 Sodium Chloride 500 ML Insulin Aspart 0 AC & AT BEDTIME 08/03 1200 AC 08/12 SC 1233 Insulin Detemir 5 UNITS DAILY 08/14 1000 SC Insulin Detemir 5 UNITS DAILY 08/04 1000 DC 08/12 SC 0856 Iron Sucrose 100 MG PER PROTOCL PRN 07/01 1430 AC 07/03 Sodium Chloride 100 ML IV 1221 Multivitamins 1 TAB DAILY 07/01 1000 AC 08/12 PO 0855 Omeprazole 40 MG DAILY AC 07/14 0700 AC 08/12 PO 0601 Prednisone 5 MG DAILY 08/06 1000 AC 08/12 PO 0855 Sevelamer Carbonate 800 MG WITH MEALS 06/30 1200 AC 08/12 PO 1233 Sodium Chloride 2 SPRAY Q10MIN PRN 07/12 0230 AC CARLITOS Sodium Hypochlorite 1 CHAITANYA BID 07/05 1113 AC 08/12 TOP 1233 Sodium Thiosulfate 25 GM MoWeFr 08/05 1400 AC 08/09 Sodium Chloride 150 ML IV 1400 Tamsulosin HCl 0.4 MG DAILY 07/01 1000 AC 08/12 PO 0855 Vitamin A/Vitamin D 1 CHAITANYA BID 06/300 AC 08/12 TOP 0857 Zinc Oxide 1 CHAITANYA BID 06/30 2200 AC 08/12 TOP 0856 Results Pertinent Lab Results: Laboratory Tests 08/12 08/12 08/11 08/11 1245 0550 2250 1000 Coagulation APTT (25 - 37 SEC) 61 H > 120 *H 40 H 73 H 08/11 08/11 08/10 08/10 0610 0125 1330 0055 Chemistry Sodium (137 - 145 mmol/L) 140 Potassium (3.5 - 5.1 mmol/L) 4.0 Chloride (98 - 107 mmol/L) 103 Carbon Dioxide (22 - 30 mmol/L) 24 Anion Gap (5 - 16) 13 BUN (9 - 20 mg/dL) 18 Creatinine (0.7 - 1.2 mg/dL) 2.3 H Estimated GFR (>60 ml/min) 28 L BUN/Creatinine Ratio (7 - 25 %) 7.8 Coagulation APTT (25 - 37 SEC) 96 H 89 H 87 H Hematology CBC w Diff NO MAN DIFF REQ WBC (4.8 - 10.8 /CUMM) 8.3 RBC (4.70 - 6.10 /CUMM) 2.95 L Hgb (14.0 - 18.0 G/DL) 8.1 L Hct (42 - 52 %) 26.6 L MCV (80.0 - 94.0 FL) 90.2 MCH (27.0 - 31.0 PG) 27.5 RDW (11.5 - 14.5 %) 22.1 H Plt Count (130 - 400 /CUMM) 190 MPV (7.4 - 10.4 FL) 8.9 Gran % (42.2 - 75.2 %) 68.2 Lymphocytes % (20.5 - 51.1 %) 18.0 L Monocytes % (1.7 - 9.3 %) 9.3 Eosinophils % (0 - 5 %) 3.9 Basophils % (0.0 - 2.0 %) 0.6 Absolute Granulocytes (1.4 - 6.5 /CUMM) 5.6 Absolute Lymphocytes (1.2 - 3.4 /CUMM) 1.5 Absolute Monocytes (0.10 - 0.60 /CUMM) 0.8 H Absolute Eosinophils (0.0 - 0.7 /CUMM) 0.3 Absolute Basophils (0.0 - 0.2 /CUMM) 0 PUBS MCHC (33.0 - 37.0 G/DL) 30.5 L
[2016-08-12 21:01] LABS: ABSOLUTE BASOPHIL COUNT 0 /CUMM (0.0-0.2); ABSOLUTE EOSINOPHIL COUNT 0.1 /CUMM (0.0-0.7); ABSOLUTE GRANULOCYTE CT 9.4 /CUMM (1.4-6.5); ABSOLUTE LYMPH COUNT 0.7 /CUMM (1.2-3.4); ABSOLUTE MONOCYTE COUNT 0.8 /CUMM (0.10-0.60); BASOPHIL % 0.2 % (0.0-2.0); EOSINOPHIL % 0.9 % (0-5); HEMATOCRIT 26.9 % (42-52); MEAN CORPUSCULAR HGB 27.7 PG (27.0-31.0); MEAN CORPUSCULAR HGB CONC 30.8 G/DL (33.0-37.0); MEAN CORPUSCULAR VOLUME 89.8 FL (80.0-94.0); MEAN PLATELET VOLUME 9.5 FL (7.4-10.4); PLATELET COUNT 186 /CUMM (130-400); RBC DISTRIBUTION WIDTH 21.9 % (11.5-14.5)
[2016-08-12 21:03] LABS: GRANULOCYTE % 85.3 % (42.2-75.2)
[2016-08-12 23:42] VITALS: BP 128/68
[2016-08-13 01:41] LABS: PTT 42 SEC (25-37)
--- NOTE | 2016-08-13 06:04 | NUR ---
NURSE NOTE: PT HEPARIN GTT STOPPED PER MD ORDER FOR OR TODAY.
[2016-08-13 06:59] VITALS: BP 122/64
--- NOTE | 2016-08-13 07:01 | PN- Housestaff ---
See Addendum Subjective Follow-up For: Non-healing ulcer, LLE ESRD on HD Possible calciphylaxis Anemia Antiphospholipid antibody syndrome Chron's Disease Complaints: no complaints Subjective: Patient seen and examined at bedside this AM. He remains mildly lethargic but respons appropriately to questions. Denies fever, chest pain, shortness of breath, nausea, vomiting. He does endorse mild LLE pain at site of ulcer. He is scheduled for both AV fistula and skin biopsy around 3:30-4pm with Dr. Chen. Patient is NPO and on D51/2NS pending this procedure. Review of Systems Constitutional: Denies: chills, fever. EENTM: Denies: blurred vision, visual changes, hearing changes, throat pain. Cardiovascular: Denies: chest pain, palpitations. Respiratory: Denies: cough, short of breath. Gastrointestinal: Denies: abdominal pain. Genitourinary: Denies: dysuria, hematuria. Musculoskeletal: Reports: see HPI, muscle pain (LLE). Skin: Reports: lesions (LLE chronic ulcer). Neurological/Psychological: Denies: confusion, headache. Hematologic/Endocrine: Denies: polyuria, polydipsia. Objective Last 24 Hrs of Vital Signs/I&O Vital Signs Date Time Temp Pulse Resp B/P Pulse O2 O2 Flow FiO2 Ox Delivery Rate 08/13 1003 86 132/64 08/13 1000 86 132/64 08/13 0659 97.8 86 18 122/64 92 Room Air 08/12 2342 98.4 72 19 128/68 94 Room Air 08/12 2246 74 128/60 Intake & Output 08/13 1600 08/13 0800 08/13 0000 Intake Total 234 428 Output Total Balance 234 428 Intake, IV 224 188 Intake, Oral 10 240 Number 3 4 Bowel Movements Patient 141 lb Weight Physical Exam General Appearance: Alert, Oriented X3, Mildly lethargic, appropriately responds to questions Skin: LLE chronic ulcer wrapped in krelex (wound present on admission), chronic unstageable ulcer on coccyx HEENT: Atraumatic, Mucous Membr. moist/pink Neck: Supple, No JVD Lymphatic: Cervical nl Cardiovascular: Normal S1, Normal S2 Lungs: Normal Air Movement Abdomen: Normal Bowel Sounds, Soft, No Tenderness, No Masses Neurological: Normal Speech, Normal Tone Extremities: Left lower extremity nonhealing wound, wound care on board. Current Medications: Current Medications Sig/Kailash Start time Last Medication Dose Route Stop Time Status Admin Acetaminophen 650 MG Q6P PRN 07/22 1700 AC 08/12 PO 0042 Aspirin 81 MG DAILY 07/01 1000 AC 08/13 PO 1000 Atorvastatin Calcium 40 MG 1700 06/30 1700 AC 08/12 PO 2012 Carvedilol 25 MG BID 08/02 2200 AC 08/13 PO 1000 Collagenase 1 CHAITANYA DAILY 08/02 1815 AC 08/12 TOP 1233 Dextrose/Sodium 1,000 ML Q20H 08/13 0730 AC 08/13 Chloride IV 0807 Epoetin Ludwig 3,000 UNIT MoWeFr PRN 07/08 1200 AC IV Epoetin Ludwig 2,000 UNIT MoWeFr PRN 07/08 1200 AC IV Fluconazole 400 MG ONCE ONE 08/12 1345 CAN PO 08/12 1346 Guaifenesin 600 MG Q12 07/18 1000 AC 08/13 PO 1000 Heparin Sodium 25,000 UNIT Q24H 08/13 1130 AC (Porcine) IV 08/13 1400 Sodium Chloride 500 ML Heparin Sodium 5,000 UNIT ONCE ONE 08/13 0245 DC 08/13 (Porcine) IV 08/13 0246 0302 Heparin Sodium 25,000 UNIT Q24H 08/09 1045 DC 08/13 (Porcine) IV 08/13 0600 0210 Sodium Chloride 500 ML Hydrocortisone 100 MG 1500 08/13 1500 AC Sodium Succinate IV 08/13 1501 Insulin Aspart 0 AC & AT BEDTIME 08/03 1200 DC 08/12 SC 2013 Insulin Detemir 5 UNITS DAILY 08/14 1000 DC SC Insulin Detemir 3 UNITS DAILY 08/13 1115 AC SC Insulin Detemir 5 UNITS DAILY 08/04 1000 DC 08/12 [place] 0856 Insulin Human Regular 0 Q4 08/13 1000 AC SC Iron Sucrose 100 MG PER PROTOCL PRN 07/01 1430 AC 07/03 Sodium Chloride 100 ML IV 1221 Multivitamins 1 TAB DAILY 07/01 1000 AC 08/13 PO 0959 Omeprazole 40 MG DAILY AC 07/14 0700 AC 08/13 PO 0610 Prednisone 5 MG DAILY 08/06 1000 AC 08/13 PO 0959 Sevelamer Carbonate 800 MG WITH MEALS 06/30 1200 DC 08/12 PO 1233 Sodium Chloride 2 SPRAY Q10MIN PRN 07/12 0230 AC CARLITOS Sodium Hypochlorite 1 CHAITANYA BID 07/05 1113 AC 08/13 TOP 1000 Sodium Thiosulfate 25 GM MoWeFr 08/05 1400 AC 08/09 Sodium Chloride 150 ML IV 1400 Tamsulosin HCl 0.4 MG DAILY 07/01 1000 AC 08/13 PO 1003 Vitamin A/Vitamin D 1 CHAITANYA BID 06/30 2200 AC 08/13 TOP 1001 Zinc Oxide 1 CHAITANYA BID 06/30 2200 AC 08/13 TOP 1000 Last 24 Hrs of Lab/Avtar Results Last 24 Hrs of Labs/Mics: Laboratory Tests 08/13/16 0858: APTT 41 H 08/13/16 0100: APTT 42 H 08/12/16 1540: Anion Gap 9, Estimated GFR 23 L, BUN/Creatinine Ratio 9.3, CBC w Diff NO MAN DIFF REQ, RBC 3.00 L, MCV 89.8, MCH 27.7, RDW 21.9 H, MPV 9.5, Gran % 85.3 H, Lymphocytes % 6.7 L, Monocytes % 6.9, Eosinophils % 0.9, Basophils % 0.2, Absolute Granulocytes 9.4 H, Absolute Lymphocytes 0.7 L, Absolute Monocytes 0.8 H, Absolute Eosinophils 0.1, Absolute Basophils 0, PUBS MCHC 30.8 L 08/12/16 1245: APTT 61 H Orders ECHO Findings: CONCLUSIONS Poor LV endocardial definition but normal overall left venricular systolic function. Left atrial enlargement. Moderate Pulmonary hypertension. Radiology Findings: CXR 07/31/15: IMPRESSION: 1. There is persistent consolidation in the right midzone laterally. The other consolidation seen on prior imaging is not appreciated on the current study. 2. There is thickening of the bronchial wu consistent with bronchitis. Miscellaneous Findings: Venous Doppler: IMPRESSION: 1. Vein mapping measurements as described above. Both the right and left cephalic veins contain thrombus. 2. Nonocclusive thrombus is seen within the lower left internal jugular vein and proximal left subclavian vein. This critical result was discussed with Dr. Mir at 5:42 PM, 08/08/2016 and it was ascertained that the content and urgency of the report was understood at the time of direct communication. Assessment/Plan Assessment: 75 y/o M with PMHx of antiphospholipid antibody syndrome, diabetes and CKD who presented with SOB, hoarseness and stridor, found to be uremic with initiation of HD, s/p debridement of chronic left leg ulcer, s/p IV vancomycin for soft tissue infection, currently awaiting outpatient dialysis slot placement and placement on AV fistula followed by skin biopsy today in the OR. Fever of unknown origin: Fluconazole 400mg PO after every dialysis has been DISCONTINUED as per ID recommendations. Follow off antibiotics CT abdomen and chest has not revealed any source of infection. ID following, will follow recs. Anemia : Etiology multifactorial. Per GI anemia likely secondary to other causes than GI. Will have patient follow-up with GI as an outpatient. We'll continue iron supplementation and Epogen. Monitor CBC. Chronic left lower extremity ulcer: Nonhealing ulcer on left lower extremity along with multiple other ulcers. Wound care following. As per Dr. Pretty, Dr. Bryan, this afternoon patient is scheduled for AV fistula placement as well as skin biopsy to rule out calciphylaxis. Patient on IV heparin which will be stopped at 2 pm prior to the surgery. D51/2NS at 50 cc/ h and NPO both ordered. Antiphospholipid antibody syndrome: Chronic right upper extremity DVT. On life- long anti-coagulation with warfarin, takes 5 mg PO QD. * Coumadin on hold, started on IV heparin (needs to be held at 2 pm). Patient is also to get stress dose of IV Solu-Cortef (100 mg) before OR as per Dr. Hilton). The patient had venous mapping done and as per vascular AV fistula will be for right upper extremity. Further anticoagulation management will be dependent on if biopsy positive for diagnoses of calciphylaxis. ESRD: Cr was 5 on admission, with gradual increase from 2-3 within the past year. Most likely etiology is progressive diabetic nephropathy. Mj cath was placed and urgent hemodialysis was initiated (06/26) with improvement of mental status. Patient is currently awaiting outpatient dialysis slot. * Nephrology following, continue to follow recs * Mj Cath in place, Continue HD MWF * Continue sevelamer 800 mg PO TIDAC when phos >3.5. 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 * AV fistula to be placed today T2DM: Uncontrolled blood sugars this admission, secondary to steroids. * Endocrinology following * Levemir 3U SQ DAILY * NPO NSS for now pending OR procedure, will restart previous NSS once patient is no longer NPO HTN: Takes amlodipine 10 mg PO QD, carvedilol 25 mg PO BID, furosemide 80 mg PO BID and hydralazine 50 mg PO BID at home. * Holding home amlodipine, furosemide and hydralazine. * Continue home carvedilol. Crohn's disease: Patient has been taking prednisone 10 mg PO QD for many years to prevent flares. * Prednisone 5 mg daily. If patient at any time gets hypotensive, given a stress dose of steroid followed by increasing dose of prednisone to 10 mg daily * The patient to remain on aspirin, Protonix needed to be added. * C diff negative * Will provide stress dose of steroids today pending OR case Diet: NPO DVT PPx: Heparin and ALPs CODE: FULL Problem List: 1. Antiphospholipid antibody syndrome 2. Chronic ulcer of left lower extremity 3. Type 2 diabetes mellitus 4. Bilateral vocal cord paralysis 5. Peripheral vascular disease 6. Crohns disease 7. End stage renal disease 8. Lethargy Pain Ratin Pain Location: LLE Pain Goal: Pain 4 or less Pain Plan: Percocet 2 tab Q8P for severe pain, tylenol 650 mg Q6P Tomorrow's Labs & Rationales: CBC (monitor WBC elevation, H&H for anemia), BEP (monitor renal function), phos (monitor level in setting of sevelamer
--- NOTE | 2016-08-13 07:50 | PN- Diabetes ---
Assessment/Plan Assessment: The patient has been moved to general medicine and the family does not wish aggressive treatment at this time. The patient is on thickened liquids and his po intake has been improving. Patient states he feels improved. He states he is eating much better than before. Before meal insulin was adjusted yesterday. The patient is on Levemir 5 units once a day in the morning as well as sliding scale NovoLog. Fingerstick blood sugars yesterday were 209 before breakfast, 244 before lunch, 242 before dinner, and 188 at bedtime. The patient is apparently scheduled for a skin biopsy and fistula creation today. He is being treated with IV heparin There are other issues which are still open-ended including whether the skin lesions are related to calciphylaxis versus pyoderma gangrenosum as mentioned and Harjit's note, This would alter his current therapy. 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 Plan: While the patient is nothing by mouth awaiting surgery we should place him on IV fluids in the form of D5 half-normal saline at 50 mL per hour. In addition we should reduce his Levemir today to just 3 units. He should be placed on sliding scale NovoLog every 4 hours using the sliding scale recommended yesterday in my note addendum. When the patient returns from surgery he should be placed back on his usual diabetic regimen. The patient can have his 5 mg of prednisone with a sip of water this morning. He also needs stress dose steroids in the form of Solu-Cortef 100 mg IV one half hour prior to the procedure. Subjective Subjective: Feels okay Objective Last 24 Hrs of Vital Signs/I&O Vital Signs Date Time Temp Pulse Resp B/P Pulse O2 O2 Flow FiO2 Ox Delivery Rate 08/13 0659 97.8 86 18 122/64 92 Room Air 08/12 2342 98.4 72 19 128/68 94 Room Air 08/12 2246 74 128/60 08/12 1041 Room Air Room Air 08/12 0855 73 120/60 08/12 0855 73 120/60 08/12 0801 98.5 73 20 120/60 95 Room Air Intake & Output 08/13 0800 08/13 0000 08/12 1600 Intake Total 234 428 668 Output Total 352 Balance 234 428 316 Intake, IV 224 188 188 Intake, Oral 10 240 480 Number 3 4 2 Bowel Movements Output, Stool 2 Output, Urine 350 Patient 141 lb Weight Vital Signs Date Time Temp Pulse Resp B/P Pulse O2 O2 Flow FiO2 Ox Delivery Rate 08/13 0659 97.8 86 18 122/64 92 Room Air 08/12 2342 98.4 72 19 128/68 94 Room Air 08/12 2246 74 128/60 08/12 1041 Room Air Room Air 08/12 0855 73 120/60 08/12 0855 73 120/60 08/12 0801 98.5 73 20 120/60 95 Room Air Intake & Output 08/13 0800 08/13 0000 08/12 1600 Intake Total 234 428 668 Output Total 352 Balance 234 428 316 Intake, IV 224 188 188 Intake, Oral 10 240 480 Number 3 4 2 Bowel Movements Output, Stool 2 Output, Urine 350 Patient 141 lb Weight Physical Exam General Appearance: alert, awake, comfortable Neck: normal inspection Respiratory: normal breath sounds Abdomen: normal bowel sounds, soft Extremities: normal inspection
--- NOTE | 2016-08-13 09:58 | NUR ---
RECEIVED PT SLEEPING IN BED. WOKE PT. UP AND ASKED IF HE WANTED TO SIT ON EOB TO DO SOME EXERCISES, PT REFUSED. ASKED PT. THEN IF HE WANTED TO DO SOME THEREX IN BED BUT HE SAID "I ALREADY DO SOME IN BED". FURTHER ASKED PT. IF HE WANTED ME TO HELP HIM TO DO THEM AND PT. SAID "NO". CONT PER POC.
[2016-08-13 10:45] LABS: PTT 41 SEC (25-37)
--- NOTE | 2016-08-13 11:06 | PN- Nephrology ---
Assessment/Plan Assessment: 1. Lower extremity ulcers. The biopsy is contemplated along with access creation. Would favor biopsying the margins not the Center using a punch biopsy. The suspicion is that this is calciphylaxis. He is on sodium thiosulfate. The concern would be biopsying the already necrotic tissue may not reveal no lesions seen with calciphylaxis. 2. End-stage renal disease on hemodialysis. 3. Diabetes mellitus 4. History of antiphospholipid syndrome with deep venous thrombosis status post IVC filter her placement Suggestion: 1. Await access creation as well as biopsy 2. No urgent dialytic need today Subjective Subjective: Patient seen with his visiting. He is awaiting surgery. He offers no complaints. Objective Vital Signs and I&Os Vital Signs Date Time Temp Pulse Resp B/P Pulse O2 O2 Flow FiO2 Ox Delivery Rate 08/13 1003 86 132/64 08/13 1000 86 132/64 08/13 0659 97.8 86 18 122/64 92 Room Air 08/12 2342 98.4 72 19 128/68 94 Room Air 08/12 2246 74 128/60 Intake & Output 08/13 1600 08/13 0400 08/12 1600 08/12 0400 08/11 1600 08/11 0400 Intake Total 234 428 530 245 7806.2 310.5 Output Total 352 0 Balance 234 428 768 765 5895.2 310.5 Intake, IV 224 188 398 167.2 70.5 Intake, Oral 10 240 694 684 3296 240 Number 2 5 4 3 3 6 Bowel Movements Output, Stool 2 Output, Urine 350 0 Patient 141 lb 148 lb 146 lb Weight Physical Exam General Appearance: well developed/nourished, no apparent distress, alert, awake , chronically ill-appearing Head: atraumatic, normal appearance Ears, Nose, Throat: hearing grossly normal, moist mucus membranes Neck: normal inspection, supple, trachea mid line, no JVD Respiratory: normal breath sounds, chest non-tender, no respiratory distress, lungs clear Cardiovascular: regular rate/rhythm, no rubs or murmurs noted Abdomen: no abdominal bruits Extremities: he has nonhealing ulcers on both lower extremities. These appear to be on the calf. They have black eschar. Neurologic/Psychiatric: no motor/sensory deficits, awake, alert Skin: areas of eschar with an ulcer Current Medications: Current Medications Sig/Kailash Start time Last Medication Dose Route Stop Time Status Admin Acetaminophen 650 MG Q6P PRN 07/22 1700 AC 08/12 PO 0042 Aspirin 81 MG DAILY 07/01 1000 AC 08/13 PO 1000 Atorvastatin Calcium 40 MG 1700 06/30 1700 AC 08/12 PO 2012 Carvedilol 25 MG BID 08/02 2200 AC 08/13 PO 1000 Collagenase 1 CHAITANYA DAILY 08/02 1815 AC 08/12 TOP 1233 Dextrose/Sodium 1,000 ML Q20H 08/13 0730 AC 08/13 Chloride IV 0807 Epoetin Ludwig 3,000 UNIT MoWeFr PRN 07/08 1200 AC IV Epoetin Ludwig 2,000 UNIT MoWeFr PRN 07/08 1200 AC IV Fluconazole 400 MG ONCE ONE 08/12 1345 CAN PO 08/12 1346 Guaifenesin 600 MG Q12 07/18 1000 AC 08/13 PO 1000 Heparin Sodium 5,000 UNIT ONCE ONE 08/13 0245 DC 08/13 (Porcine) IV 08/13 0246 0302 Heparin Sodium 25,000 UNIT Q24H 08/09 1045 DC 08/13 (Porcine) IV 08/13 0600 0210 Sodium Chloride 500 ML Hydrocortisone 100 MG 1500 08/13 1500 AC Sodium Succinate IV 08/13 1501 Insulin Aspart 0 AC & AT BEDTIME 08/03 1200 DC 08/12 SC 2013 Insulin Detemir 5 UNITS DAILY 08/14 1000 AC SC Insulin Detemir 5 UNITS DAILY 08/04 1000 DC 08/12 SC 0856 Insulin Human Regular 0 Q4 08/13 1000 AC SC Iron Sucrose 100 MG PER PROTOCL PRN 07/01 1430 AC 07/03 Sodium Chloride 100 ML IV 1221 Multivitamins 1 TAB DAILY 07/01 1000 AC 08/13 PO 0959 Omeprazole 40 MG DAILY AC 07/14 0700 AC 08/13 PO 0610 Prednisone 5 MG DAILY 08/06 1000 AC 08/13 PO 0959 Sevelamer Carbonate 800 MG WITH MEALS 06/30 1200 DC 08/12 PO 1233 Sodium Chloride 2 SPRAY Q10MIN PRN 07/12 0230 AC CARLITOS Sodium Hypochlorite 1 CHAITANYA BID 07/05 1113 AC 08/13 TOP 1000 Sodium Thiosulfate 25 GM MoWeFr 08/05 1400 AC 08/09 Sodium Chloride 150 ML IV 1400 Tamsulosin HCl 0.4 MG DAILY 07/01 1000 AC 08/13 PO 1003 Vitamin A/Vitamin D 1 CHAITANYA BID 06/30 2200 08/13 TOP 1001 Zinc Oxide 1 CHAITANYA BID 06/30 2200 08/13 TOP 1000 Results Pertinent Lab Results: Laboratory Tests 08/13 08/13 08/12 08/12 0858 0100 1540 1245 Chemistry Sodium (137 - 145 mmol/L) 137 Potassium (3.5 - 5.1 mmol/L) 4.6 Chloride (98 - 107 mmol/L) 105 Carbon Dioxide (22 - 30 mmol/L) 23 Anion Gap (5 - 16) 9 BUN (9 - 20 mg/dL) 25 H Creatinine (0.7 - 1.2 mg/dL) 2.7 H Estimated GFR (>60 ml/min) 23 L BUN/Creatinine Ratio (7 - 25 %) 9.3 Coagulation APTT (25 - 37 SEC) 41 H 42 H 61 H Hematology CBC w Diff NO MAN DIFF REQ WBC (4.8 - 10.8 /CUMM) 11.0 H RBC (4.70 - 6.10 /CUMM) 3.00 L Hgb (14.0 - 18.0 G/DL) 8.3 L Hct (42 - 52 %) 26.9 L MCV (80.0 - 94.0 FL) 89.8 MCH (27.0 - 31.0 PG) 27.7 RDW (11.5 - 14.5 %) 21.9 H Plt Count (130 - 400 /CUMM) 186 MPV (7.4 - 10.4 FL) 9.5 Gran % (42.2 - 75.2 %) 85.3 H Lymphocytes % (20.5 - 51.1 %) 6.7 L Monocytes % (1.7 - 9.3 %) 6.9 Eosinophils % (0 - 5 %) 0.9 Basophils % (0.0 - 2.0 %) 0.2 Absolute Granulocytes (1.4 - 6.5 /CUMM) 9.4 H Absolute Lymphocytes (1.2 - 3.4 /CUMM) 0.7 L Absolute Monocytes (0.10 - 0.60 /CUMM) 0.8 H Absolute Eosinophils (0.0 - 0.7 /CUMM) 0.1 Absolute Basophils (0.0 - 0.2 /CUMM) 0 PUBS MCHC (33.0 - 37.0 G/DL) 30.8 L 08/12 08/11 08/11 08/11 0550 2250 1000 0610 Chemistry Sodium (137 - 145 mmol/L) 140 Potassium (3.5 - 5.1 mmol/L) 4.0 Chloride (98 - 107 mmol/L) 103 Carbon Dioxide (22 - 30 mmol/L) 24 Anion Gap (5 - 16) 13 BUN (9 - 20 mg/dL) 18 Creatinine (0.7 - 1.2 mg/dL) 2.3 H Estimated GFR (>60 ml/min) 28 L BUN/Creatinine Ratio (7 - 25 %) 7.8 Coagulation APTT (25 - 37 SEC) > 120 *H 40 H 73 H Hematology CBC w Diff NO MAN DIFF REQ WBC (4.8 - 10.8 /CUMM) 8.3 RBC (4.70 - 6.10 /CUMM) 2.95 L Hgb (14.0 - 18.0 G/DL) 8.1 L Hct (42 - 52 %) 26.6 L MCV (80.0 - 94.0 FL) 90.2 MCH (27.0 - 31.0 PG) 27.5 RDW (11.5 - 14.5 %) 22.1 H Plt Count (130 - 400 /CUMM) 190 MPV (7.4 - 10.4 FL) 8.9 Gran % (42.2 - 75.2 %) 68.2 Lymphocytes % (20.5 - 51.1 %) 18.0 L Monocytes % (1.7 - 9.3 %) 9.3 Eosinophils % (0 - 5 %) 3.9 Basophils % (0.0 - 2.0 %) 0.6 Absolute Granulocytes (1.4 - 6.5 /CUMM) 5.6 Absolute Lymphocytes (1.2 - 3.4 /CUMM) 1.5 Absolute Monocytes (0.10 - 0.60 /CUMM) 0.8 H Absolute Eosinophils (0.0 - 0.7 /CUMM) 0.3 Absolute Basophils (0.0 - 0.2 /CUMM) 0 PUBS MCHC (33.0 - 37.0 G/DL) 30.5 L 08/11 08/10 0125 1330 Coagulation APTT (25 - 37 SEC) 96 H 89 H
[2016-08-13 14:15] LABS: ABSOLUTE BASOPHIL COUNT 0 /CUMM (0.0-0.2); ABSOLUTE EOSINOPHIL COUNT 0.1 /CUMM (0.0-0.7); ABSOLUTE GRANULOCYTE CT 9.8 /CUMM (1.4-6.5); ABSOLUTE LYMPH COUNT 0.7 /CUMM (1.2-3.4); ABSOLUTE MONOCYTE COUNT 0.7 /CUMM (0.10-0.60); BASOPHIL % 0.4 % (0.0-2.0); EOSINOPHIL % 1.3 % (0-5); GRANULOCYTE % 86.6 % (42.2-75.2); HEMATOCRIT 28.1 % (42-52); MEAN CORPUSCULAR HGB 27.8 PG (27.0-31.0); MEAN CORPUSCULAR HGB CONC 31.3 G/DL (33.0-37.0); MEAN CORPUSCULAR VOLUME 88.8 FL (80.0-94.0); MEAN PLATELET VOLUME 8.5 FL (7.4-10.4); PLATELET COUNT 176 /CUMM (130-400); RBC DISTRIBUTION WIDTH 22.4 % (11.5-14.5); RED BLOOD CELL CT 3.16 /CUMM (4.70-6.10)
[2016-08-13 14:43] LABS: WHITE BLOOD CELL COUNT 11.3 /CUMM (4.8-10.8)
--- NOTE | 2016-08-13 15:46 | NUR ---
AT 1200 RESTARTED HEPARIN DRIP AT 28.8 ML/HR PER MD KRISHNA GONSALES 133. NO BOLUS AT THIS TIME, NEXT PTT AFTER PATIENT RETURNS FROM OR. DC'D HEPARIN GTT AT 1400 PM PRIOR TO SURGERY.
--- NOTE | 2016-08-13 18:27 | NUR ---
1400 - PATIENT TAKEN DOWN TO OR AT THIS TIME.
--- NOTE | 2016-08-13 19:04 | Operative Report ---
Operative/Inv Procedure Report Surgery Date: 08/13/16 Name of Procedure: Stage I right arm brachiobasilic AV fistula creation, bilateral lower extremity skin punch biopsy Pre-Operative Diagnosis: End-stage renal disease. Nonhealing bilateral approximated wounds Post-Operative Diagnosis: Same Estimated Blood Loss: 50ml to 100ml Surgeon/Second Helper: Ahmet Bryan MD Anesthesia: moderate sedation Operative/Procedure Note Note: 75-year-old right-handed gentleman with end-stage renal disease, Crohn's, and multiple other medical issues had a long hospital stay. He has been started on hemodialysis via a right IJ tunneled line. AV fistula creation was requested for this patient prior to discharge. Preoperative vein mapping showed thrombus in the left axillary and subclavian vein as well as cephalic vein. On the right , the cephalic vein was of adequate caliber. The basilic vein was less than 2 mm. The patient also presented with nonhealing bilateral lower extremity wounds which clinically are neither venous insufficiency wounds nor peripheral arterial disease wounds. Therefore, biopsy of these lesions were also requested. The nature of the procedure including is possible complications but not limited to bleeding, infection, injury to vessels, blood clots, failure of maturation, and steal syndrome were discussed. An informed consent was obtained. Patient was taken to the operating room and placed supine on the table. A timeout was called according to the protocol. After satisfactory induction of sedation, the patient was prepped and draped in standard surgical fashion. Using the ultrasound, right cephalic vein was scanned. Unfortunately, the proximal segment of the cephalic vein there was partial thrombus. Therefore, I decided to use the basilic vein for AV fistula creation in the first stage. Lidocaine was infiltrated under the skin between the basilic vein and the brachial artery just above the antecubital fossa. Using a scalpel, an incision was made. The incision was carried down through the subcutaneous tissue and fascia using electrocautery. Once I got close to the very brachial artery, sharp dissection continued with Metzenbaum scissors. Proximal and distal control were obtained and vessel loops were loosely placed. Then my attention was taken to finding the basilic vein which was found. The vein was about 2 mm in diameter. 6000 of heparin was given. Proximal and distal control were obtained with Dante clamp on the artery. Then the basilic vein was transected and spatulated. Using an 11 blade, an arteriotomy was made over the heel artery in a longitudinal fashion. Using 7-0 Prolene suture end-to-side anastomosis was made. Hemostasis was obtained. There was biphasic right radial and ulnar signals after the fissure creation. There was a bruit and a mild thrill over the fistula. Wound was then closed with interrupted 3-0 Vicryl suture in a subdermal fashion. The skin was then closed in a subcuticular continuous 4-0 Monocryl suture. Sterile applied. Then 2 punch biopsies were made on the right calf and 1 punch biopsy was made over the left medial thigh. These biopsies were sent off to pathology. The count at the end of the case was correct. The patient was then to the recovery room in stable condition.
--- NOTE | 2016-08-13 20:53 | PN- Vascular Surgery ---
Subjective Subjective: The patient was seen this evening postoperatively. He has no complaints at the current time reports that his pain is in adequate control. Objective Vital Signs and I&Os Vital Signs Date Time Temp Pulse Resp B/P Pulse O2 O2 Flow FiO2 Ox Delivery Rate 08/13 1003 86 132/64 08/13 1000 86 132/64 08/13 0659 97.8 86 18 122/64 92 Room Air 08/12 2342 98.4 72 19 128/68 94 Room Air 08/12 2246 74 128/60 Intake & Output 08/13 1600 08/13 0800 08/13 0000 08/12 1600 08/12 0800 08/12 0000 Intake Total 350 234 428 668 330 600 Output Total 352 Balance 350 234 428 316 330 600 Intake, IV 350 224 188 188 210 Intake, Oral 10 240 480 120 600 Number 3 4 2 4 1 Bowel Movements Output, Stool 2 Output, Urine 350 Patient 141 lb 148 lb Weight Physical Exam: Gen.: Alert and obvious distress Skin: Warm and dry Extremities: Right upper extremity surgical dressing is blood-tinged but otherwise intact. Gross motor and sensory are intact. There is capillary refill and a dopplerable radial and ulnar pulse Assessment/Plan Assessment/Plan Assessment: 75-year-old male status post creation of right upper extremity AV fistula. Postoperatively patient is progressing as expected, his pain is under adequate control, and there dopplerable distal pulses. Plan: Continue care per primary team Reinforce dressing is needed No blood pressure or laboratory sticks from right upper extremity Advance diet as tolerated Strict glycemic control GI and DVT prophylaxis
[2016-08-13 21:55] LABS: PTT 49 SEC (25-37)
--- NOTE | 2016-08-13 22:44 | NUR ---
NURSING NOTE: HEPARIN GTT RESTARTED AT 2230 @ 28.8 ML/HR PER [employer]ER CHRISTIANO. PTT ORDERED FOR 0430.
[2016-08-13 23:59] VITALS: BP 118/68
[2016-08-14 04:43] LABS: ABSOLUTE BASOPHIL COUNT 0 /CUMM (0.0-0.2); ABSOLUTE EOSINOPHIL COUNT 0 /CUMM (0.0-0.7); ABSOLUTE GRANULOCYTE CT 5.8 /CUMM (1.4-6.5); ABSOLUTE LYMPH COUNT 0.9 /CUMM (1.2-3.4); ABSOLUTE MONOCYTE COUNT 0.8 /CUMM (0.10-0.60); BASOPHIL % 0.3 % (0.0-2.0); EOSINOPHIL % 0.1 % (0-5); GRANULOCYTE % 76.7 % (42.2-75.2); HEMATOCRIT 25.1 % (42-52); MEAN CORPUSCULAR HGB 27.8 PG (27.0-31.0); MEAN CORPUSCULAR HGB CONC 31.2 G/DL (33.0-37.0); MEAN CORPUSCULAR VOLUME 89.1 FL (80.0-94.0); MEAN PLATELET VOLUME 8.8 FL (7.4-10.4); PLATELET COUNT 158 /CUMM (130-400); RBC DISTRIBUTION WIDTH 22.5 % (11.5-14.5); RED BLOOD CELL CT 2.82 /CUMM (4.70-6.10); WHITE BLOOD CELL COUNT 7.5 /CUMM (4.8-10.8)
[2016-08-14 05:27] LABS: PTT > 120 SEC (25-37)
[2016-08-14 06:00] VITALS: BP 110/72
--- NOTE | 2016-08-14 06:50 | PN- Housestaff ---
ILDA HEATH,KRISHNA 08/14/16 0650: Subjective Follow-up For: Non-healing ulcer, LLE ESRD on HD Possible calciphylaxis Anemia Antiphospholipid antibody syndrome Chron's Disease Subjective: Patient seen and examined at bedside this AM. He reports he feels well, though his thighs are painful post biopsies for which he is requesting percocet. He denies fever, chills, chest pain, shortness of breath. Review of Systems Constitutional: Denies: chills, fever. EENTM: Denies: visual changes, nasal congestion, throat pain. Cardiovascular: Denies: chest pain, palpitations. Respiratory: Denies: cough. Gastrointestinal: Denies: abdominal pain, bloating, diarrhea. Genitourinary: Reports: no symptoms. Musculoskeletal: Reports: muscle pain (Bilateral thighs). Skin: Reports: lesions (LLE wound, dressed). Neurological/Psychological: Denies: confusion, headache. Hematologic/Endocrine: Denies: bruising, bleeding. Immunologic/Allergic: Denies: splenectomy. Objective Last 24 Hrs of Vital Signs/I&O Vital Signs Date Time Temp Pulse Resp B/P Pulse O2 O2 Flow FiO2 Ox Delivery Rate 08/14 0851 82 110/62 08/14 0801 97.6 82 20 110/62 94 Room Air 08/14 0600 98.0 80 20 110/72 97 Room Air 08/13 2359 97.7 75 20 118/68 96 Room Air 08/13 2222 77 110/70 Intake & Output 08/14 1600 08/14 0800 08/14 0000 Intake Total 1000.4 440 Output Total Balance 1000.4 440 Intake, IV 680.4 120 Intake, Oral 320 320 Number 2 0 Bowel Movements Patient 147 lb Weight Physical Exam General Appearance: Alert, Oriented X3, Cooperative, No Acute Distress Skin: Left lower extremity wound covered in gauze with prior notation of exposed tendon. Wound care on board and daily wound dressings ordered. HEENT: Atraumatic, Mucous Membr. moist/pink Neck: Supple Cardiovascular: Normal S1, Normal S2 Lungs: Normal Air Movement Abdomen: Normal Bowel Sounds, Soft Neurological: Normal Speech, Normal Tone Extremities: No Edema Current Medications: Current Medications Sig/Kailash Start time Last Medication Dose Route Stop Time Status Admin Acetaminophen 650 MG Q6P PRN 08/13 191 AC PO Acetaminophen 1,000 MG .STK-MED ONE 08/13 1446 DC IV 08/13 1447 Acetaminophen 650 MG Q6P PRN 07/22 1700 DC 08/12 PO 0042 Aspirin 81 MG DAILY 08/14 1000 AC 08/14 PO 0851 Aspirin 81 MG DAILY 07/01 1000 DC 08/13 PO 1000 Atorvastatin Calcium 40 MG 1700 08/14 1700 AC PO Atorvastatin Calcium 40 MG 1700 06/30 1700 DC 08/12 PO 2012 Carvedilol 25 MG BID 08/13 2200 AC 08/14 PO 0851 Carvedilol 25 MG BID 08/02 2200 DC 08/13 PO 1000 Collagenase 1 CHAITANYA DAILY 08/14 1000 AC TOP Collagenase 1 CHAITANYA DAILY 08/02 1815 DC 08/13 TOP 1000 Dextrose/Sodium 1,000 ML Q20H 08/13 1915 DC 08/13 Chloride IV 2020 Dextrose/Sodium 1,000 ML Q20H 08/13 0730 DC 08/13 Chloride IV 0807 Epoetin Ludwig 3,000 UNIT MoWeFr PRN 08/14 0800 AC IV Epoetin Ludwig 2,000 UNIT MoWeFr PRN 08/14 0800 AC IV Epoetin Ludwig 3,000 UNIT MoWeFr PRN 07/08 1200 DC IV Epoetin Ludwig 2,000 UNIT MoWeFr PRN 07/08 1200 DC IV Fentanyl Citrate 200 MCG .STK-MED ONE 08/13 1446 DC IM 08/13 1447 Guaifenesin 600 MG Q12 08/13 2200 AC 08/14 PO 0851 Guaifenesin 600 MG Q12 07/18 1000 DC 08/13 PO 1000 Heparin Sodium 25,000 UNIT Q24H 08/13 2200 AC 08/14 (Porcine) IV 1248 Sodium Chloride 500 ML Hydrocortisone 100 MG 1500 08/13 1500 DC 08/13 Sodium Succinate IV 08/13 1501 1417 Hydromorphone HCl 2 MG .STK-MED ONE 08/13 1901 DC IM 08/13 1902 Insulin Aspart 0 AC & AT BEDTIME 08/14 0800 AC 08/14 SC 1148 Insulin Detemir 3 UNITS DAILY 08/14 1000 DC SC Insulin Detemir 5 UNITS DAILY 08/14 1000 AC 08/14 SC 0851 Insulin Detemir 3 UNITS DAILY 08/13 1115 DC 08/13 SC 1211 Insulin Human Regular 0 Q4 08/13 2200 CAN SC Insulin Human Regular 0 TIDAC/HS 08/13 2100 DC 08/13 SC 2100 Insulin Human Regular 0 Q4 08/13 1000 DC 08/13 SC 1417 Iron Sucrose 100 MG Friday .. 08/14 1000 AC Sodium Chloride 100 ML IV Iron Sucrose 100 MG PER PROTOCL PRN 07/01 1430 DC 07/03 Sodium Chloride 100 ML IV 1221 Morphine Sulfate 2 MG Q4P PRN 08/13 1930 AC IV Multivitamins 1 TAB DAILY 08/14 1000 AC 08/14 PO 0851 Multivitamins 1 TAB DAILY 07/01 1000 DC 08/13 PO 0959 Omeprazole 40 MG DAILY AC 08/14 0700 AC 08/14 PO 0623 Omeprazole 40 MG DAILY AC 07/14 0700 DC 08/13 PO 0610 Oxycodone/ 2 TAB Q8P PRN 08/14 1115 AC Acetaminophen PO Oxycodone/ 1 TAB ONCE ONE 08/14 1015 DC 08/14 Acetaminophen PO 08/14 1016 1039 Oxycodone/ 1 TAB Q8P PRN 08/14 0800 DC 08/14 Acetaminophen PO 0850 Patient Medication 1 ED .STK-MED ONE 08/14 1357 DC Teaching ED 08/14 1358 Prednisone 5 MG DAILY 08/14 1000 AC 08/14 PO 0851 Prednisone 5 MG DAILY 08/06 1000 DC 08/13 PO 0959 Sodium Chloride 2 SPRAY Q10MIN PRN 08/13 1915 AC CARLITOS Sodium Chloride 2 SPRAY Q10MIN PRN 07/12 0230 DC CARLITOS Sodium Hypochlorite 1 CHAITANYA BID 08/13 2200 AC 08/14 TOP 1048 Sodium Hypochlorite 1 CHAITANYA BID 07/05 1113 DC 08/13 TOP 1000 Sodium Thiosulfate 25 GM MoWeFr 08/14 1915 AC Sodium Chloride 150 ML IV Sodium Thiosulfate 25 GM MoWeFr 08/05 1400 DC 08/09 Sodium Chloride 150 ML IV 1400 Tamsulosin HCl 0.4 MG DAILY 08/14 1000 CAN PO Tamsulosin HCl 0.4 MG DAILY 07/01 1000 DC 08/13 PO 1003 Vitamin A/Vitamin D 1 CHAITANYA BID 08/13 2200 AC 08/14 TOP 0852 Vitamin A/Vitamin D 1 CHAITANYA BID 06/30 2200 DC 08/13 TOP 1001 Zinc Oxide 1 CHAITANYA BID 08/13 2200 AC 08/14 TOP 0852 Zinc Oxide 1 CHAITANYA BID 06/30 2200 DC 08/13 TOP 1000 Last 24 Hrs of Lab/Avtar Results Last 24 Hrs of Labs/Mics: Laboratory Tests 08/14/16 1106: APTT > 120 *H 08/14/16 0420: Anion Gap 8, Estimated GFR 35 L, BUN/Creatinine Ratio 7.4, Phosphorus 3.5, Magnesium 1.3 L, Albumin 1.7 L, APTT > 120 *H, CBC w Diff NO MAN DIFF REQ, RBC 2.82 L, MCV 89.1, MCH 27.8, RDW 22.5 H, MPV 8.8, Gran % 76.7 H, Lymphocytes % 11.6 L, Monocytes % 11.3 H, Eosinophils % 0.1, Basophils % 0.3, Absolute Granulocytes 5.8, Absolute Lymphocytes 0.9 L, Absolute Monocytes 0.8 H, Absolute Eosinophils 0, Absolute Basophils 0, PUBS MCHC 31.2 L 08/13/162037: APTT 49 H Assessment/Plan Assessment: 75 y/o M with PMHx of antiphospholipid antibody syndrome, diabetes and CKD who presented with SOB, hoarseness and stridor, found to be uremic with initiation of HD, s/p debridement of chronic left leg ulcer, s/p IV vancomycin for soft tissue infection, currently awaiting outpatient dialysis slot placement and placement on AV fistula followed by skin biopsy today in the OR. Fever of unknown origin: Fluconazole 400mg PO after every dialysis has been DISCONTINUED as per ID recommendations. Follow off antibiotics, reconsult ID if any further issues arise. CT abdomen and chest has not revealed any source of infection. Will monitor WBC. Area of AV fistula clean without signs of infection. Anemia : Etiology multifactorial. Per GI anemia likely secondary to other causes than GI. Will have patient follow-up with GI as an outpatient. We'll continue iron supplementation and Epogen. Monitor CBC. Chronic left lower extremity ulcer: Nonhealing ulcer on left lower extremity along with multiple other ulcers. Wound care following. Skin biopsy to rule out calciphylaxis done yesterday, awaiting results. Patient resumed on IV heparin and waiting for biopsy to determine anticoagulation for discharge. Lovenox not an option as per nephro. Antiphospholipid antibody syndrome: Chronic right upper extremity DVT. On life- long anti-coagulation with warfarin, takes 5 mg PO QD. * Coumadin on hold, started on IV heparin. Further anticoagulation management will be dependent on if biopsy positive for diagnoses of calciphylaxis. ESRD: Cr was 5 on admission, with gradual increase from 2-3 within the past year. Most likely etiology is progressive diabetic nephropathy. Mj cath was placed and urgent hemodialysis was initiated (06/26) with improvement of mental status. Patient is currently awaiting outpatient dialysis slot. * Nephrology following, continue to follow recs * Mj Cath in place, Continue HD MWF * Continue sevelamer 800 mg PO TIDAC when phos >3.5. 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 * AV fistula placed yesterday T2DM: Uncontrolled blood sugars this admission, secondary to steroids. * Endocrinology following, appreciate input * Levemir 5U SQ DAILY * NSS to continue HTN: Takes amlodipine 10 mg PO QD, carvedilol 25 mg PO BID, furosemide 80 mg PO BID and hydralazine 50 mg PO BID at home. * Holding home amlodipine, furosemide and hydralazine. * Continue home carvedilol. Crohn's disease: Patient has been taking prednisone 10 mg PO QD for many years to prevent flares. * Prednisone 5 mg daily. If patient at any time gets hypotensive, given a stress dose of steroid followed by increasing dose of prednisone to 10 mg daily * The patient to remain on aspirin, Protonix needed to be added. * C diff negative * Will provide stress dose of steroids today pending OR case Diet: Renal dialysis DVT PPx: Heparin and ALPs CODE: DNR/DNI Problem List: 1. Antiphospholipid antibody syndrome 2. Chronic ulcer of left lower extremity 3. Type 2 diabetes mellitus 4. Bilateral vocal cord paralysis 5. Peripheral vascular disease 6. Crohns disease 7. End stage renal disease Pain Ratin Pain Location: Bilateral thighs Pain Goal: Pain 4 or less Pain Plan: Percocet 2 tab Q8P for severe pain, tylenol 650 mg Q6P Tomorrow's Labs & Rationales: CBC (Monitor anemia, wbc), BEP (monitor electrolytes/renal function in the setting of HD), phos, magnesium. HARRY MORRIS MD 08/14/16 1512: Attending MD Review Statement Attending Statement Attending MD Statement: examined this patient, discuss w/resident/PA/[employer], agreed w/resident/PA/[employer], reviewed EMR data (avail), discussed with nursing, discussed with case mgmt, amended to note Attending Assessment/Plan: Patient seen and examined. Alert and oriented 3 this morning. His mental status is much better today. No issues overnight reported by nursing staff. Continues complain of chronic extremity pain. Pain is controlled on his current analgesic regimen. Skin biopsy was done yesterday to rule out calciphylaxis. Once results are obtained decision marii be made about resuming oral anticoagulation therapy.
[2016-08-14 08:01] VITALS: BP 110/62
--- NOTE | 2016-08-14 08:06 | PN- Diabetes ---
Assessment/Plan Assessment: The patient has been moved to general medicine and the family does not wish aggressive treatment at this time. The patient is complaining of a great deal of pain related to the skin biopsies which were done yesterday. The patient is on thickened liquids and his po intake has been improving. Patient states he feels improved. He states he is eating much better than before. His insulin regimen was changed yesterday to account for the surgery.. The patient had skin biopsies done and creation of a fistula in his right upper yesterday. He is being treated with IV heparim. Plan: Suggest that the patient be placed back on his usual insulin regimen including Levemir 5 units once a day and sliding-scale NovoLog as previously written. Continue to control his pain as best as possible without oversedation. Once the skin biopsy results are available further decisions can be made as to the appropriate anticoagulant for him. We may also need input from dermatology as to the nature of his skin lesions when the biopsies are read by the pathologist. I would continue the prednisone 5 mg once a day today. Subjective Subjective: Complains of pain Review of Systems Constitutional: Denies: chills, fever. Cardiovascular: Denies: chest pain. Respiratory: Denies: short of breath. Gastrointestinal: Denies: abdominal pain. Skin: Reports: lesions (on legs). Objective Last 24 Hrs of Vital Signs/I&O Vital Signs Date Time Temp Pulse Resp B/P Pulse O2 O2 Flow FiO2 Ox Delivery Rate 08/14 0801 97.6 82 20 110/62 94 Room Air 08/14 0600 98.0 80 20 110/72 97 Room Air 08/139 97.7 75 20 118/68 96 Room Air 08/13 2222 77 110/70 08/13 1003 86 132/64 08/13 1000 86 132/64 Intake & Output 08/14 1600 08/14 0800 08/14 0000 Intake Total 1000.4 440 Output Total Balance 1000.4 440 Intake, IV 680.4 120 Intake, Oral 320 320 Number 2 0 Bowel Movements Patient 147 lb Weight Vital Signs Date Time Temp Pulse Resp B/P Pulse O2 O2 Flow FiO2 Ox Delivery Rate 08/14 0801 97.6 82 20 110/62 94 Room Air 08/14 0600 98.0 80 20 110/72 97 Room Air 08/13 2359 97.7 75 20 118/68 96 Room Air 08/13 2222 77 110/70 08/13 1003 86 132/64 08/13 1000 86 132/64 Intake & Output 08/14 1600 08/14 0800 08/14 0000 Intake Total 1000.4 440 Output Total Balance 1000.4 440 Intake, IV 680.4 120 Intake, Oral 320 320 Number 2 0 Bowel Movements Patient 147 lb Weight Physical Exam General Appearance: well developed/nourished, alert, awake Head: normal appearance Neck: normal inspection Respiratory: normal breath sounds Cardiovascular: regular rate/rhythm Abdomen: normal bowel sounds, soft Extremities: left upper leg and lower leg bandage as well as right upper Current Medications: Current Medications Sig/Kailash Start time Last Medication Dose Route Stop Time Status Admin Acetaminophen 650 MG Q6P PRN 08/13 191 AC PO Acetaminophen 1,000 MG .STK-MED ONE 08/13 1446 DC IV 08/13 1447 Acetaminophen 650 MG Q6P PRN 07/22 1700 DC 08/12 PO 0042 Aspirin 81 MG DAILY 08/14 1000 AC PO Aspirin 81 MG DAILY 07/01 1000 DC 08/13 PO 1000 Atorvastatin Calcium 40 MG 1700 08/14 1700 AC PO Atorvastatin Calcium 40 MG 1700 06/30 1700 DC 08/12 PO 2012 Carvedilol 25 MG BID 08/13 2200 AC 08/13 PO 2222 Carvedilol 25 MG BID 08/02 2200 DC 08/13 PO 1000 Collagenase 1 CHAITANYA DAILY 08/14 1000 AC TOP Collagenase 1 CHAITANYA DAILY 08/02 1815 DC 08/13 TOP 1000 Dextrose/Sodium 1,000 ML Q20H 08/13 1915 AC 08/13 Chloride IV 2020 Dextrose/Sodium 1,000 ML Q20H 08/13 0730 DC 08/13 Chloride IV 0807 Epoetin Ludwig 3,000 UNIT MoWeFr PRN 08/14 0800 AC IV Epoetin Ludwig 2,000 UNIT MoWeFr PRN 08/14 0800 AC IV Epoetin Ludwig 3,000 UNIT MoWeFr PRN 07/08 1200 DC IV Epoetin Ludwig 2,000 UNIT MoWeFr PRN 07/08 1200 DC IV Fentanyl Citrate 200 MCG .STK-MED ONE 08/13 1446 DC IM 08/13 1447 Guaifenesin 600 MG Q12 08/13 2200 AC 08/13 PO 2226 Guaifenesin 600 MG Q12 07/18 1000 DC 08/13 PO 1000 Heparin Sodium 25,000 UNIT Q24H 08/13 2200 AC 08/13 (Porcine) IV 2239 Sodium Chloride 500 ML Heparin Sodium 25,000 UNIT Q24H 08/13 1130 DC 08/13 (Porcine) IV 08/13 1400 1201 Sodium Chloride 500 ML Hydrocortisone 100 MG 1500 08/13 1500 DC 08/13 Sodium Succinate IV 08/13 1501 1417 Hydromorphone HCl 2 MG .STK-MED ONE 08/13 1901 DC IM 08/13 190 Insulin Aspart 0 AC & AT BEDTIME 08/14 0800 AC SC Insulin Detemir 5 UNITS DAILY 08/14 1000 DC SC Insulin Detemir 3 UNITS DAILY 08/14 1000 DC SC Insulin Detemir 5 UNITS DAILY 08/14 1000 AC SC Insulin Detemir 3 UNITS DAILY 08/13 1115 DC 08/13 SC 1211 Insulin Human Regular 0 Q4 08/13 2200 CAN SC Insulin Human Regular 0 TIDAC/HS 08/13 2100 DC 08/13 SC 2100 Insulin Human Regular 0 Q4 08/13 1000 DC 08/13 SC 1417 Iron Sucrose 100 MG Friday .. 08/14 1000 AC Sodium Chloride 100 ML IV Iron Sucrose 100 MG PER PROTOCL PRN 07/01 1430 DC 07/03 Sodium Chloride 100 ML IV 1221 Morphine Sulfate 2 MG Q4P PRN 08/13 1930 AC IV Multivitamins 1 TAB DAILY 08/14 1000 AC PO Multivitamins 1 TAB DAILY 07/01 1000 DC 08/13 PO 0959 Omeprazole 40 MG DAILY AC 08/14 0700 AC 08/14 PO 0623 Omeprazole 40 MG DAILY AC 07/14 0700 DC 08/13 PO 0610 Oxycodone/ 1 TAB Q8P PRN 08/14 0800 AC Acetaminophen PO Prednisone 5 MG DAILY 08/14 1000 AC PO Prednisone 5 MG DAILY 08/06 1000 DC 08/13 PO 0959 Sodium Chloride 2 SPRAY Q10MIN PRN 08/13 1915 AC CARLITOS Sodium Chloride 2 SPRAY Q10MIN PRN 07/12 0230 DC CARLITOS Sodium Hypochlorite 1 CHAITANYA BID 08/13 2200 AC 08/13 TOP 2221 Sodium Hypochlorite 1 CHAITANYA BID 07/05 1113 DC 08/13 TOP 1000 Sodium Thiosulfate 25 GM MoWeFr 08/14 1915 AC Sodium Chloride 150 ML IV Sodium Thiosulfate 25 GM MoWeFr 08/05 1400 DC 08/09 Sodium Chloride 150 ML IV 1400 Tamsulosin HCl 0.4 MG DAILY 08/14 1000 CAN PO Tamsulosin HCl 0.4 MG DAILY 07/01 1000 DC 08/13 PO 1003 Vitamin A/Vitamin D 1 CHAITANYA BID 08/13 2200 AC 08/13 TOP 2221 Vitamin A/Vitamin D 1 CHAITANYA BID 06/30 2200 DC 08/13 TOP 1001 Zinc Oxide 1 CHAITANYA BID 08/13 2200 AC 08/13 TOP 2222 Zinc Oxide 1 CHAITANYA BID 06/30 2200 DC 08/13 TOP 1000 Findings Pertinent Lab/Avtar Results: Laboratory Tests 08/14 08/13 0420 2038 Chemistry Sodium (137 - 145 mmol/L) 132 L Potassium (3.5 - 5.1 mmol/L) 3.8 Chloride (98 - 107 mmol/L) 102 Carbon Dioxide (22 - 30 mmol/L) 22 Anion Gap (5 - 16) 8 BUN (9 - 20 mg/dL) 14 Creatinine (0.7 - 1.2 mg/dL) 1.9 H Estimated GFR (>60 ml/min) 35 L BUN/Creatinine Ratio (7 - 25 %) 7.4 Phosphorus (2.5 - 4.5 mg/dL) 3.5 Coagulation APTT (25 - 37 SEC) > 120 *H 49 H Hematology CBC w Diff NO MAN DIFF REQ WBC (4.8 - 10.8 /CUMM) 7.5 RBC (4.70 - 6.10 /CUMM) 2.82 L Hgb (14.0 - 18.0 G/DL) 7.8 L Hct (42 - 52 %) 25.1 L MCV (80.0 - 94.0 FL) 89.1 MCH (27.0 - 31.0 PG) 27.8 RDW (11.5 - 14.5 %) 22.5 H Plt Count (130 - 400 /CUMM) 158 MPV (7.4 - 10.4 FL) 8.8 Gran % (42.2 - 75.2 %) 76.7 H Lymphocytes % (20.5 - 51.1 %) 11.6 L Monocytes % (1.7 - 9.3 %) 11.3 H Eosinophils % (0 - 5 %) 0.1 Basophils % (0.0 - 2.0 %) 0.3 Absolute Granulocytes (1.4 - 6.5 /CUMM) 5.8 Absolute Lymphocytes (1.2 - 3.4 /CUMM) 0.9 L Absolute Monocytes (0.10 - 0.60 /CUMM) 0.8 H Absolute Eosinophils (0.0 - 0.7 /CUMM) 0 Absolute Basophils (0.0 - 0.2 /CUMM) 0 PUBS MCHC (33.0 - 37.0 G/DL) 31.2 L 08/13 08/13 1340 0858 Chemistry Sodium (137 - 145 mmol/L) 138 Potassium (3.5 - 5.1 mmol/L) 4.0 Chloride (98 - 107 mmol/L) 104 Carbon Dioxide (22 - 30 mmol/L) 27 Anion Gap (5 - 16) 8 BUN (9 - 20 mg/dL) 12 Creatinine (0.7 - 1.2 mg/dL) 1.7 H Estimated GFR (>60 ml/min) 40 L BUN/Creatinine Ratio (7 - 25 %) 7.1 Phosphorus (2.5 - 4.5 mg/dL) 2.2 L Coagulation APTT (25 - 37 SEC) 41 H Hematology CBC w Diff NO MAN DIFF REQ WBC (4.8 - 10.8 /CUMM) 11.3 H RBC (4.70 - 6.10 /CUMM) 3.16 L Hgb (14.0 - 18.0 G/DL) 8.8 L Hct (42 - 52 %) 28.1 L MCV (80.0 - 94.0 FL) 88.8 MCH (27.0 - 31.0 PG) 27.8 RDW (11.5 - 14.5 %) 22.4 H Plt Count (130 - 400 /CUMM) 176 MPV (7.4 - 10.4 FL) 8.5 Gran % (42.2 - 75.2 %) 86.6 H Lymphocytes % (20.5 - 51.1 %) 5.9 L Monocytes % (1.7 - 9.3 %) 5.8 Eosinophils % (0 - 5 %) 1.3 Basophils % (0.0 - 2.0 %) 0.4 Absolute Granulocytes (1.4 - 6.5 /CUMM) 9.8 H Absolute Lymphocytes (1.2 - 3.4 /CUMM) 0.7 L Absolute Monocytes (0.10 - 0.60 /CUMM) 0.7 H Absolute Eosinophils (0.0 - 0.7 /CUMM) 0.1 Absolute Basophils (0.0 - 0.2 /CUMM) 0 PUBS MCHC (33.0 - 37.0 G/DL) 31.3 L
--- NOTE | 2016-08-14 10:09 | NUR ---
PHYSICAL THERAPY: RECEIVED PT. AWAKE SITTING UP IN BED. ASKED PT. IF HE WANTED TO SIT EOB AND DO SOME EXERCISES. PT REFUSED. INSISTED TO GIVE IT A TRY AND STATED "I REALLY DONT WANT TO TODAY". PT SAID HE WOULD DO HIS EXERCISES LAYING IN BED LATER. FOLLOW UP TOMORROW, CONT POC.
--- NOTE | 2016-08-14 11:00 | PN- Nephrology ---
Assessment/Plan Assessment: 1. Lower extremity ulcers. Await biopsy result 2. End-stage renal disease on hemodialysis. Dialysis later today 3. Diabetes mellitus 4. History of antiphospholipid syndrome with deep venous thrombosis status post IVC filter her placement Suggestion: 1. Await biopsy biopsy results 2. Continue with sodium thiosulfate 3. If the biopsy is not consistent with Coumadin necrosis, and warfarin may be resumed. He apparently has been on warfarin for years if not decades. Subjective Subjective: Patient feels okay. He is a right upper arm aVF that was created. Objective Vital Signs and I&Os Vital Signs Date Time Temp Pulse Resp B/P Pulse O2 O2 Flow FiO2 Ox Delivery Rate 08/14 0851 82 110/62 08/14 0801 97.6 82 20 110/62 94 Room Air 08/14 0600 98.0 80 20 110/72 97 Room Air 08/13 2359 97.7 75 20 118/68 96 Room Air 08/13 2222 77 110/70 Intake & Output 08/14 1600 08/14 0400 08/13 1600 08/13 0400 08/12 1600 08/12 0400 Intake Total 1000.4 440 1024 428 998 600 Output Total 352 Balance 1000.4 440 1024 428 646 600 Intake, IV 680.4 120 574 188 398 Intake, Oral 320 320 330 240 600 600 Intake, Other 120 Number 2 0 2 5 4 3 Bowel Movements Output, Stool 2 Output, Urine 350 Patient 147 lb 141 lb 148 lb Weight Physical Exam: General Appearance: well developed/nourished, no apparent distress, alert, awake , chronically ill-appearing Head: atraumatic, normal appearance Ears, Nose, Throat: hearing grossly normal, moist mucus membranes Neck: normal inspection, supple, trachea mid line, no JVD Respiratory: normal breath sounds, chest non-tender, no respiratory distress, lungs clear Cardiovascular: regular rate/rhythm, no rubs or murmurs noted Abdomen: no abdominal bruits Extremities: he has nonhealing ulcers on both lower extremities. These appear to be on the calf. They have black eschar. Neurologic/Psychiatric: no motor/sensory deficits, awake, alert Skin: areas of eschar with an ulcer Current Medications: Current Medications Sig/Kailash Start time Last Medication Dose Route Stop Time Status Admin Acetaminophen 650 MG Q6P PRN 08/13 1914 AC PO Acetaminophen 1,000 MG .STK-MED ONE 08/13 1446 DC IV 08/13 1447 Acetaminophen 650 MG Q6P PRN 07/22 1700 DC 08/12 PO 0042 Aspirin 81 MG DAILY 08/14 1000 AC 08/14 PO 0851 Aspirin 81 MG DAILY 07/01 1000 DC 08/13 PO 1000 Atorvastatin Calcium 40 MG 1700 08/14 1700 AC PO Atorvastatin Calcium 40 MG 1700 / 1700 DC 08/12 PO 2012 Carvedilol 25 MG BID 08/13 2200 AC 08/14 PO 0851 Carvedilol 25 MG BID 08/02 2200 DC 08/13 PO 1000 Collagenase 1 CHAITANYA DAILY 08/14 1000 AC TOP Collagenase 1 CHAITANYA DAILY 08/02 1815 DC 08/13 TOP 1000 Dextrose/Sodium 1,000 ML Q20H 08/13 1915 DC 08/13 Chloride IV 2020 Dextrose/Sodium 1,000 ML Q20H 08/13 0730 DC 08/13 Chloride IV 0807 Epoetin Ludwig 3,000 UNIT MoWeFr PRN 08/14 0800 AC IV Epoetin Ludwig 2,000 UNIT MoWeFr PRN 08/14 0800 AC IV Epoetin Ludwig 3,000 UNIT MoWeFr PRN 07/08 1200 DC IV Epoetin Ludwig 2,000 UNIT MoWeFr PRN 07/08 1200 DC IV Fentanyl Citrate 200 MCG .STK-MED ONE 08/13 1446 DC IM 08/13 1447 Guaifenesin 600 MG Q12 08/13 2200 AC 08/14 PO 0851 Guaifenesin 600 MG Q12 07/18 1000 DC 08/13 PO 1000 Heparin Sodium 25,000 UNIT Q24H 08/13 2200 AC 08/14 (Porcine) IV 0853 Sodium Chloride 500 ML Heparin Sodium 25,000 UNIT Q24H 08/13 1130 DC 08/13 (Porcine) IV 08/13 1400 1201 Sodium Chloride 500 ML Hydrocortisone 100 MG 1500 08/13 1500 DC 08/13 Sodium Succinate IV 08/13 1501 1417 Hydromorphone HCl 2 MG .STK-MED ONE 08/13 1901 DC IM 08/13 1902 Insulin Aspart 0 AC & AT BEDTIME 08/14 0800 AC 08/14 SC 0852 Insulin Detemir 5 UNITS DAILY 08/14 1000 DC SC Insulin Detemir 3 UNITS DAILY 08/14 1000 DC SC Insulin Detemir 5 UNITS DAILY 08/14 1000 AC 08/14 SC 0851 Insulin Detemir 3 UNITS DAILY 08/13 1115 DC 08/13 SC 1211 Insulin Human Regular 0 Q4 08/13 2200 CAN SC Insulin Human Regular 0 TIDAC/HS 08/13 2100 DC 08/13 SC 2100 Insulin Human Regular 0 Q4 08/13 1000 DC 08/13 SC 1417 Iron Sucrose 100 MG Friday .. 08/14 1000 AC Sodium Chloride 100 ML IV Iron Sucrose 100 MG PER PROTOCL PRN 07/01 1430 DC 07/03 Sodium Chloride 100 ML IV 1221 Morphine Sulfate 2 MG Q4P PRN 08/13 1930 AC IV Multivitamins 1 TAB DAILY 08/14 1000 AC 08/14 PO 0851 Multivitamins 1 TAB DAILY 07/01 1000 DC 08/13 PO 0959 Omeprazole 40 MG DAILY AC 08/14 0700 AC 08/14 PO 0623 Omeprazole 40 MG DAILY AC 07/14 0700 DC 08/13 PO 0610 Oxycodone/ 1 TAB ONCE ONE 08/14 1015 DC 08/14 Acetaminophen PO 08/14 1016 1039 Oxycodone/ 1 TAB Q8P PRN 08/14 0800 AC 08/14 Acetaminophen PO 0850 Prednisone 5 MG DAILY 08/14 1000 AC 08/14 PO 0851 Prednisone 5 MG DAILY 08/06 1000 DC 08/13 PO 0959 Sodium Chloride 2 SPRAY Q10MIN PRN 08/13 1915 AC CARLITOS Sodium Chloride 2 SPRAY Q10MIN PRN 07/12 0230 DC CARLITOS Sodium Hypochlorite 1 CHAITANYA BID 08/13 2200 AC 08/14 TOP 1048 Sodium Hypochlorite 1 CHAITANYA BID 07/05 1113 DC 08/13 TOP 1000 Sodium Thiosulfate 25 GM MoWeFr 08/14 1915 AC Sodium Chloride 150 ML IV Sodium Thiosulfate 25 GM MoWeFr 08/05 1400 DC 08/09 Sodium Chloride 150 ML IV 1400 Tamsulosin HCl 0.4 MG DAILY 08/14 1000 CAN PO Tamsulosin HCl 0.4 MG DAILY 07/01 1000 DC 08/13 PO 1003 Vitamin A/Vitamin D 1 CHAITANYA BID 08/13 2200 AC 08/14 TOP 0852 Vitamin A/Vitamin D 1 CHAITANYA BID 06/30 2200 DC 08/13 TOP 1001 Zinc Oxide 1 CHAITANYA BID 08/13 2200 AC 08/14 TOP 0852 Zinc Oxide 1 CHAITANYA BID 06/30 2200 DC 08/13 TOP 1000 Results Pertinent Lab Results: Laboratory Tests 08/14 08/14 08/13 1106 0420 2038 Chemistry Sodium (137 - 145 mmol/L) 132 L Potassium (3.5 - 5.1 mmol/L) 3.8 Chloride (98 - 107 mmol/L) 102 Carbon Dioxide (22 - 30 mmol/L) 22 Anion Gap (5 - 16) 8 BUN (9 - 20 mg/dL) 14 Creatinine (0.7 - 1.2 mg/dL) 1.9 H Estimated GFR (>60 ml/min) 35 L BUN/Creatinine Ratio (7 - 25 %) 7.4 Phosphorus (2.5 - 4.5 mg/dL) 3.5 Coagulation APTT (25 - 37 SEC) > 120 *H > 120 *H 49 H Hematology CBC w Diff NO MAN DIFF REQ WBC (4.8 - 10.8 /CUMM) 7.5 RBC (4.70 - 6.10 /CUMM) 2.82 L Hgb (14.0 - 18.0 G/DL) 7.8 L Hct (42 - 52 %) 25.1 L MCV (80.0 - 94.0 FL) 89.1 MCH (27.0 - 31.0 PG) 27.8 RDW (11.5 - 14.5 %) 22.5 H Plt Count (130 - 400 /CUMM) 158 MPV (7.4 - 10.4 FL) 8.8 Gran % (42.2 - 75.2 %) 76.7 H Lymphocytes % (20.5 - 51.1 %) 11.6 L Monocytes % (1.7 - 9.3 %) 11.3 H Eosinophils % (0 - 5 %) 0.1 Basophils % (0.0 - 2.0 %) 0.3 Absolute Granulocytes (1.4 - 6.5 /CUMM) 5.8 Absolute Lymphocytes (1.2 - 3.4 /CUMM) 0.9 L Absolute Monocytes (0.10 - 0.60 /CUMM) 0.8 H Absolute Eosinophils (0.0 - 0.7 /CUMM) 0 Absolute Basophils (0.0 - 0.2 /CUMM) 0 PUBS MCHC (33.0 - 37.0 G/DL) 31.2 L 08/13 08/13 08/13 1340 0858 0100 Chemistry Sodium (137 - 145 mmol/L) 138 Potassium (3.5 - 5.1 mmol/L) 4.0 Chloride (98 - 107 mmol/L) 104 Carbon Dioxide (22 - 30 mmol/L) 27 Anion Gap (5 - 16) 8 BUN (9 - 20 mg/dL) 12 Creatinine (0.7 - 1.2 mg/dL) 1.7 H Estimated GFR (>60 ml/min) 40 L BUN/Creatinine Ratio (7 - 25 %) 7.1 Phosphorus (2.5 - 4.5 mg/dL) 2.2 L Coagulation APTT (25 - 37 SEC) 41 H 42 H Hematology CBC w Diff NO MAN DIFF REQ WBC (4.8 - 10.8 /CUMM) 11.3 H RBC (4.70 - 6.10 /CUMM) 3.16 L Hgb (14.0 - 18.0 G/DL) 8.8 L Hct (42 - 52 %) 28.1 L MCV (80.0 - 94.0 FL) 88.8 MCH (27.0 - 31.0 PG) 27.8 RDW (11.5 - 14.5 %) 22.4 H Plt Count (130 - 400 /CUMM) 176 MPV (7.4 - 10.4 FL) 8.5 Gran % (42.2 - 75.2 %) 86.6 H Lymphocytes % (20.5 - 51.1 %) 5.9 L Monocytes % (1.7 - 9.3 %) 5.8 Eosinophils % (0 - 5 %) 1.3 Basophils % (0.0 - 2.0 %) 0.4 Absolute Granulocytes (1.4 - 6.5 /CUMM) 9.8 H Absolute Lymphocytes (1.2 - 3.4 /CUMM) 0.7 L Absolute Monocytes (0.10 - 0.60 /CUMM) 0.7 H Absolute Eosinophils (0.0 - 0.7 /CUMM) 0.1 Absolute Basophils (0.0 - 0.2 /CUMM) 0 PUBS MCHC (33.0 - 37.0 G/DL) 31.3 L 08/12 08/12 08/12 08/11 1540 1245 0550 2250 Chemistry Sodium (137 - 145 mmol/L) 137 Potassium (3.5 - 5.1 mmol/L) 4.6 Chloride (98 - 107 mmol/L) 105 Carbon Dioxide (22 - 30 mmol/L) 23 Anion Gap (5 - 16) 9 BUN (9 - 20 mg/dL) 25 H Creatinine (0.7 - 1.2 mg/dL) 2.7 H Estimated GFR (>60 ml/min) 23 L BUN/Creatinine Ratio (7 - 25 %) 9.3 Coagulation APTT (25 - 37 SEC) 61 H > 120 *H 40 H Hematology CBC w Diff NO MAN DIFF REQ WBC (4.8 - 10.8 /CUMM) 11.0 H RBC (4.70 - 6.10 /CUMM) 3.00 L Hgb (14.0 - 18.0 G/DL) 8.3 L Hct (42 - 52 %) 26.9 L MCV (80.0 - 94.0 FL) 89.8 MCH (27.0 - 31.0 PG) 27.7 RDW (11.5 - 14.5 %) 21.9 H Plt Count (130 - 400 /CUMM) 186 MPV (7.4 - 10.4 FL) 9.5 Gran % (42.2 - 75.2 %) 85.3 H Lymphocytes % (20.5 - 51.1 %) 6.7 L Monocytes % (1.7 - 9.3 %) 6.9 Eosinophils % (0 - 5 %) 0.9 Basophils % (0.0 - 2.0 %) 0.2 Absolute Granulocytes (1.4 - 6.5 /CUMM) 9.4 H Absolute Lymphocytes (1.2 - 3.4 /CUMM) 0.7 L Absolute Monocytes (0.10 - 0.60 /CUMM) 0.8 H Absolute Eosinophils (0.0 - 0.7 /CUMM) 0.1 Absolute Basophils (0.0 - 0.2 /CUMM) 0 PUBS MCHC (33.0 - 37.0 G/DL) 30.8 L
--- NOTE | 2016-08-14 11:43 | PN- Infect Dx ---
Subjective Subjective: Afebrile on steroids. He complains of pain in the left thigh and right calf at the site of the recent skin biopsies. Objective Last 24 Hrs of Vital Signs/I&O Vital Signs Date Time Temp Pulse Resp B/P Pulse O2 O2 Flow FiO2 Ox Delivery Rate 08/14 0851 82 110/62 08/14 0801 97.6 82 20 110/62 94 Room Air 08/14 0600 98.0 80 20 110/72 97 Room Air 08/13 2359 97.7 75 20 118/68 96 Room Air 08/13 2222 77 110/70 Intake & Output 08/14 1600 08/14 0800 08/14 0000 Intake Total 1000.4 440 Output Total Balance 1000.4 440 Intake, IV 680.4 120 Intake, Oral 320 320 Number 2 0 Bowel Movements Patient 147 lb Weight Physical Exam Other Physical Findings: He is comfortable at present in no acute distress Extremities right upper extremity dressing intact; dressings intact over the left thigh and right calf at the site of the recent biopsies Results Last 24 Hours of Lab Results: Laboratory Tests 08/14 08/14 08/13 1106 0420 8 Chemistry Sodium (137 - 145 mmol/L) 132 L Potassium (3.5 - 5.1 mmol/L) 3.8 Chloride (98 - 107 mmol/L) 102 Carbon Dioxide (22 - 30 mmol/L) 22 Anion Gap (5 - 16) 8 BUN (9 - 20 mg/dL) 14 Creatinine (0.7 - 1.2 mg/dL) 1.9 H Estimated GFR (>60 ml/min) 35 L BUN/Creatinine Ratio (7 - 25 %) 7.4 Phosphorus (2.5 - 4.5 mg/dL) 3.5 Coagulation APTT (25 - 37 SEC) Pending > 120 *H 49 H Hematology CBC w Diff NO MAN DIFF REQ WBC (4.8 - 10.8 /CUMM) 7.5 RBC (4.70 - 6.10 /CUMM) 2.82 L Hgb (14.0 - 18.0 G/DL) 7.8 L Hct (42 - 52 %) 25.1 L MCV (80.0 - 94.0 FL) 89.1 MCH (27.0 - 31.0 PG) 27.8 RDW (11.5 - 14.5 %) 22.5 H Plt Count (130 - 400 /CUMM) 158 MPV (7.4 - 10.4 FL) 8.8 Gran % (42.2 - 75.2 %) 76.7 H Lymphocytes % (20.5 - 51.1 %) 11.6 L Monocytes % (1.7 - 9.3 %) 11.3 H Eosinophils % (0 - 5 %) 0.1 Basophils % (0.0 - 2.0 %) 0.3 Absolute Granulocytes (1.4 - 6.5 /CUMM) 5.8 Absolute Lymphocytes (1.2 - 3.4 /CUMM) 0.9 L Absolute Monocytes (0.10 - 0.60 /CUMM) 0.8 H Absolute Eosinophils (0.0 - 0.7 /CUMM) 0 Absolute Basophils (0.0 - 0.2 /CUMM) 0 PUBS MCHC (33.0 - 37.0 G/DL) 31.2 L 08/13 1340 Chemistry Sodium (137 - 145 mmol/L) 138 Potassium (3.5 - 5.1 mmol/L) 4.0 Chloride (98 - 107 mmol/L) 104 Carbon Dioxide (22 - 30 mmol/L) 27 Anion Gap (5 - 16) 8 BUN (9 - 20 mg/dL) 12 Creatinine (0.7 - 1.2 mg/dL) 1.7 H Estimated GFR (>60 ml/min) 40 L BUN/Creatinine Ratio (7 - 25 %) 7.1 Phosphorus (2.5 - 4.5 mg/dL) 2.2 L Hematology CBC w Diff NO MAN DIFF REQ WBC (4.8 - 10.8 /CUMM) 11.3 H RBC (4.70 - 6.10 /CUMM) 3.16 L Hgb (14.0 - 18.0 G/DL) 8.8 L Hct (42 - 52 %) 28.1 L MCV (80.0 - 94.0 FL) 88.8 MCH (27.0 - 31.0 PG) 27.8 RDW (11.5 - 14.5 %) 22.4 H Plt Count (130 - 400 /CUMM) 176 MPV (7.4 - 10.4 FL) 8.5 Gran % (42.2 - 75.2 %) 86.6 H Lymphocytes % (20.5 - 51.1 %) 5.9 L Monocytes % (1.7 - 9.3 %) 5.8 Eosinophils % (0 - 5 %) 1.3 Basophils % (0.0 - 2.0 %) 0.4 Absolute Granulocytes (1.4 - 6.5 /CUMM) 9.8 H Absolute Lymphocytes (1.2 - 3.4 /CUMM) 0.7 L Absolute Monocytes (0.10 - 0.60 /CUMM) 0.7 H Absolute Eosinophils (0.0 - 0.7 /CUMM) 0.1 Absolute Basophils (0.0 - 0.2 /CUMM) 0 PUBS MCHC (33.0 - 37.0 G/DL) 31.3 L Last 24 Hours of Avtar Results: No recent cultures Assessment/Plan Impression: Stable status post creation of an AV fistula in the right upper extremity yesterday with skin biopsies performed at the same time to rule out calciphylaxis, for which he remains on empiric therapy with Thiosulfate. He remains afebrile (on steroids) with white blood cell count normal off antibiotics after a two-week course of Fluconazole for candiduria. Suggestion: 1. Follow-up skin biopsy results 2. Continue to follow off antibiotics Will no longer follow at this time, but please call with any questions
[2016-08-14 12:21] LABS: PTT > 120 SEC (25-37)
--- NOTE | 2016-08-14 14:40 | NUR ---
forming department supervisor called to confirm that she will be administering Sodium Thiosulfate 25mg per emar while pt is in dialysis.
[2016-08-14 17:33] VITALS: BP 112/60
[2016-08-14 20:09] LABS: PTT > 120 SEC (25-37)
--- NOTE | 2016-08-14 21:38 | NUR ---
when checking vitals for internal medicine specialist, o2 sats on room air-mid 80's. encouraged breathing, would not move. increased to 1L, 2L, then finally at 3L o2 and patient sats went to 92%. Maintaining on 3L now, notified RT @ 054. continue to monitor
[2016-08-15] VITALS: BP 128/72
[2016-08-15 03:25] LABS: PTT 52 SEC (25-37)
--- NOTE | 2016-08-15 06:50 | PN- Housestaff ---
See Addendum Subjective Follow-up For: Non-healing ulcer, LLE ESRD on HD Possible calciphylaxis Anemia Antiphospholipid antibody syndrome Chron's Disease Subjective: Patient seen and examined at bedside this AM. He was awake, alert and oriented with no complaints other than leg pain at the site of biopsies. He was requesting percocet. Review of Systems Constitutional: Denies: chills, fever. EENTM: Denies: blurred vision, nasal congestion, throat pain. Cardiovascular: Denies: chest pain, palpitations. Respiratory: Denies: cough, short of breath. Gastrointestinal: Denies: abdominal pain. Genitourinary: Reports: no symptoms. Musculoskeletal: Reports: muscle pain (Bilateral legs). Skin: Reports: lesions (Left lower leg ulcer). Neurological/Psychological: Denies: confusion, headache. Hematologic/Endocrine: Denies: polydipsia. Immunologic/Allergic: Denies: splenectomy. Objective Last 24 Hrs of Vital Signs/I&O Vital Signs Date Time Temp Pulse Resp B/P Pulse O2 O2 Flow FiO2 Ox Delivery Rate 08/15 1023 92 100/42 08/15 0758 98.4 92 20 134/60 96 Nasal 2.0L Cannula 08/15 0000 97 Nasal 2.0L Cannula 08/15 0000 97.5 82 18 128/72 97 Nasal 2.0L Cannula 08/14 2123 95 128/60 08/14 1800 92 Room Air 08/14 1733 97.3 78 20 112/60 92 Intake & Output 08/15 1600 08/15 0800 08/15 0000 Intake Total 173.6 739 Output Total 251 800 Balance -251 173.6 -61 Intake, IV 173.6 259 Intake, Oral 480 Number 2 3 Bowel Movements Output, 800 Dialysate Output, Stool 1 Output, Urine 250 Patient 149 lb 139 lb Weight Physical Exam General Appearance: Alert, Cooperative, No Acute Distress Skin: Left lower leg ulcer covered in kerlex. Dry, clean bandages over biopsy sites. Coccyx ulcer as noted on wound care evaluations. HEENT: Atraumatic, Mucous Membr. moist/pink Lymphatic: Cervical nl Cardiovascular: Normal S1, Normal S2 Lungs: Normal Air Movement Abdomen: Normal Bowel Sounds, Soft, No Tenderness, No Hepatospenomegaly Neurological: Normal Speech, Normal Tone Extremities: No Edema Current Medications: Current Medications Sig/Kailash Start time Last Medication Dose Route Stop Time Status Admin Acetaminophen 650 MG .STK-MED ONE 08/14 2106 DC PO 08/14 2107 Acetaminophen 650 MG Q6P PRN 08/13 1915 AC 08/14 PO 2123 Aspirin 81 MG DAILY 08/14 1000 AC 08/15 PO 1020 Atorvastatin Calcium 40 MG 1700 08/14 1700 AC 08/14 PO 1731 Carvedilol 25 MG BID 08/13 2200 AC 08/14 PO 2123 Collagenase 1 CHAITANYA DAILY 08/14 1000 AC 08/15 TOP 1021 Epoetin Ludwig 3,000 UNIT MoWeFr PRN 08/14 0800 AC IV Epoetin Ludwig 2,000 UNIT MoWeFr PRN 08/14 0800 AC IV Guaifenesin 600 MG Q12 08/13 2200 AC 08/15 PO 1021 Heparin Sodium 5,000 UNIT .STK-MED ONE 08/15 0438 DC (Porcine) IV 08/15 0439 Heparin Sodium 2,500 UNIT ONCE ONE 08/15 0430 DC 08/15 (Porcine) IV 08/15 0431 0430 Heparin Sodium 25,000 UNIT Q24H 08/13 2200 AC 08/14 (Porcine) IV 1248 Sodium Chloride 500 ML Insulin Aspart 0 AC & AT BEDTIME 08/14 0800 AC 08/15 SC 0839 Insulin Detemir 5 UNITS DAILY 08/14 1000 AC 08/15 SC 1024 Iron Sucrose 100 MG FRIDAY WED FRIDAY .. 08/14 1000 DC Sodium Chloride 100 ML IV 08/15 1000 Magnesium Sulfate 1 GM Q2H 08/14 1500 DC 08/14 Dextrose/Water 100 ML IV 08/14 1859 2303 Magnesium Sulfate 1 GM ONCE ONE 08/14 1445 CAN Dextrose/Water 100 ML IV 08/14 1844 Morphine Sulfate 2 MG Q4P PRN 08/13 1930 AC IV Multivitamins 1 TAB DAILY 08/14 1000 AC 08/15 PO 1020 Omeprazole 40 MG DAILY AC 08/14 0700 AC 08/15 PO 0532 Oxycodone/ 2 TAB Q8P PRN 08/14 1115 AC 08/15 Acetaminophen PO 0833 Prednisone 5 MG DAILY 08/14 1000 AC 08/15 PO 1021 Sodium Chloride 2 SPRAY Q10MIN PRN 08/13 1915 AC CARLITOS Sodium Hypochlorite 1 CHAITANYA BID 08/13 2200 AC 08/15 TOP 1021 Sodium Thiosulfate 25 GM MoWeFr 08/14 1915 08/14 Sodium Chloride 150 ML IV 2020 Vitamin A/Vitamin D 1 CHAITANYA BID 08/13 2200 08/15 TOP 1024 Zinc Oxide 1 CHAITANYA BID 08/130 08/15 TOP 1021 Last 24 Hrs of Lab/Avtar Results Last 24 Hrs of Labs/Mics: Laboratory Tests 08/15/16 1030: APTT 66 H 08/15/16 0715: Anion Gap 5, Estimated GFR 46 L, BUN/Creatinine Ratio 7.3, Phosphorus 2.9, Magnesium 1.9, CBC w Diff NO MAN DIFF REQ, RBC 3.09 L, MCV 89.5, MCH 28.4, RDW 22.8 H, MPV 8.8, Gran % 73.2, Lymphocytes % 14.7 L, Monocytes % 9.3, Eosinophils % 2.1, Basophils % 0.7, Absolute Granulocytes 6.1, Absolute Lymphocytes 1.2, Absolute Monocytes 0.8 H, Absolute Eosinophils 0.2, Absolute Basophils 0.1, PUBS MCHC 31.8 L 08/15/16 0215: APTT 52 H 08/14/16 1845: APTT > 120 *H 08/14/16 1640: Assessment/Plan Assessment: 75 y/o M with PMHx of antiphospholipid antibody syndrome, diabetes and CKD who presented with SOB, hoarseness and stridor, found to be uremic with initiation of HD, s/p debridement of chronic left leg ulcer, s/p IV vancomycin for soft tissue infection, currently awaiting outpatient dialysis slot placement and placement on AV fistula followed by skin biopsy today in the OR. Fever of unknown origin: Fluconazole 400mg PO after every dialysis has been DISCONTINUED as per ID recommendations. Follow off antibiotics, reconsult ID if any further issues arise. No fever noted over the last [address] abdomen and chest has not revealed any source of infection. Will monitor WBC. Area of AV fistula clean without signs of infection. Biopsy sites also without signs of infection Continue to monitor LLE wound as well as coccygeal wound and clean/dress as per wound care recommendations. Anemia : Etiology multifactorial. Per GI anemia likely secondary to other causes than GI. Will have patient follow-up with GI as an outpatient. We'll continue iron supplementation and Epogen. Monitor CBC. Chronic left lower extremity ulcer: Nonhealing ulcer on left lower extremity along with multiple other ulcers. Wound care following. Skin biopsy to rule out calciphylaxis done yesterday, awaiting results. Patient resumed on IV heparin and waiting for biopsy to determine anticoagulation for discharge. Lovenox not an option as per nephro. Nephro does recommend apixaban. Antiphospholipid antibody syndrome: Chronic right upper extremity DVT. On life- long anti-coagulation with warfarin, takes 5 mg PO QD. * Coumadin on hold, continued on IV heparin. Further anticoagulation management will be dependent on if biopsy positive for diagnoses of calciphylaxis. ESRD: Cr was 5 on admission, with gradual increase from 2-3 within the past year. Most likely etiology is progressive diabetic nephropathy. Jm cath was placed and urgent hemodialysis was initiated (06/26) with improvement of mental status. Patient is currently awaiting outpatient dialysis slot. * Nephrology following, continue to follow recs * Mj Cath in place, Continue HD MWF * Continue sevelamer 800 mg PO TIDAC when phos >3.5. 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 * AV fistula placed, awaiting maturity T2DM: Uncontrolled blood sugars this admission, secondary to steroids. * Endocrinology following, appreciate input * Levemir 5U SQ DAILY * NSS to continue as presently ordered HTN: Takes amlodipine 10 mg PO QD, carvedilol 25 mg PO BID, furosemide 80 mg PO BID and hydralazine 50 mg PO BID at home. * Holding home amlodipine, furosemide and hydralazine. * Continue home carvedilol. Crohn's disease: Patient has been taking prednisone 10 mg PO QD for many years to prevent flares. * Prednisone 5 mg daily. If patient at any time gets hypotensive, given a stress dose of steroid followed by increasing dose of prednisone to 10 mg daily * The patient to remain on aspirin, Protonix needed to be added. * C diff negative * Will provide stress dose of steroids today pending OR case Diet: Renal dialysis DVT PPx: Heparin and ALPs CODE: DNR/DNI Problem List: 1. Peripheral vascular disease 2. Type 2 diabetes mellitus 3. Chronic ulcer of left lower extremity 4. Antiphospholipid antibody syndrome 5. Supraglottic edema 6. End stage renal disease 7. DVT prophylaxis Pain Ratin Pain Location: Bilateral legs Pain Goal: Pain 4 or less Pain Plan: 2 tab percocet Q8P for pain. Tomorrow's Labs & Rationales: Labs drawn with dialysis.
--- NOTE | 2016-08-15 07:51 | PN- Diabetes ---
Assessment/Plan Assessment: The patient has been moved to general medicine and the family does not wish aggressive treatment at this time. The patient is complaining of a great deal of pain related to the skin biopsies which were done yesterday. The patient is on thickened liquids and his po intake has been improving. Patient states he feels improved. He states he is eating much better than before. His insulin regimen was changed yesterday to account for the surgery.. The patient had skin biopsies done and creation of a fistula in his right upper yesterday. He is being treated with IV heparim. Patient's blood sugars were in a good range yesterday. Fingerstick blood sugar this morning is 159. Plan: Suggest continue the present insulin. The patient's blood sugars are in good control. Await the skin biopsy results. Subjective Subjective: Libby has some pain Review of Systems Constitutional: Denies: chills, fever. Cardiovascular: Denies: chest pain. Respiratory: Denies: short of breath. Gastrointestinal: Denies: abdominal pain. Objective Last 24 Hrs of Vital Signs/I&O Vital Signs Date Time Temp Pulse Resp B/P Pulse O2 O2 Flow FiO2 Ox Delivery Rate 08/15 0000 97 Nasal 2.0L Cannula 08/15 0000 97.5 82 18 128/72 97 Nasal 2.0L Cannula 08/143 95 128/60 08/14 1800 92 Room Air 08/14 1733 97.3 78 20 112/60 92 08/14 0851 82 110/62 08/14 0801 97.6 82 20 110/62 94 Room Air Intake & Output 08/15 0800 08/15 0000 08/14 1600 Intake Total 173.6 739 420 Output Total 800 Balance 173.6 -61 420 Intake, IV 173.6 259 180 Intake, Oral 480 240 Number 2 3 Bowel Movements Output, 800 Dialysate Patient 149 lb 139 lb Weight Vital Signs Date Time Temp Pulse Resp B/P Pulse O2 O2 Flow FiO2 Ox Delivery Rate 08/15 0000 97 Nasal 2.0L Cannula 08/15 0000 97.5 82 18 128/72 97 Nasal 2.0L Cannula 08/14 2123 95 128/60 08/14 1800 92 Room Air 08/14 1733 97.3 78 20 112/60 92 08/14 0851 82 110/62 08/14 0801 97.6 82 20 110/62 94 Room Air Intake & Output 08/15 0800 08/15 0000 08/14 1600 Intake Total 173.6 739 420 Output Total 800 Balance 173.6 -61 420 Intake, IV 173.6 259 180 Intake, Oral 480 240 Number 2 3 Bowel Movements Output, 800 Dialysate Patient 149 lb 139 lb Weight Physical Exam General Appearance: alert, awake Neck: normal inspection Respiratory: normal breath sounds Cardiovascular: regular rate/rhythm Extremities: lesions on legs bandaged Current Medications: Current Medications Sig/Kailash Start time Last Medication Dose Route Stop Time Status Admin Acetaminophen 650 MG .STK-MED ONE 08/14 2106 DC PO 08/14 2107 Acetaminophen 650 MG Q6P PRN 08/13 1915 AC 08/14 PO 2123 Aspirin 81 MG DAILY 08/14 1000 AC 08/14 PO 0851 Atorvastatin Calcium 40 MG 1700 08/14 1700 AC 08/14 PO 1731 Carvedilol 25 MG BID 08/13 2200 AC 08/14 PO 2123 Collagenase 1 CHAITANYA DAILY 08/14 1000 AC 08/14 TOP 1921 Dextrose/Sodium 1,000 ML Q20H 08/13 1915 DC 08/13 Chloride IV 2020 Epoetin Ludwig 3,000 UNIT MoWeFr PRN 08/14 0800 AC IV Epoetin Ludwig 2,000 UNIT MoWeFr PRN 08/14 0800 AC IV Guaifenesin 600 MG Q12 08/13 2200 AC 08/14 PO 2123 Heparin Sodium 2,500 UNIT ONCE ONE 08/15 0430 DC 08/15 (Porcine) IV 08/15 0431 0430 Heparin Sodium 25,000 UNIT Q24H 08/13 2200 AC 08/14 (Porcine) IV 1248 Sodium Chloride 500 ML Insulin Aspart 0 AC & AT BEDTIME 08/14 0800 AC 08/14 SC 1736 Insulin Detemir 5 UNITS DAILY 08/14 1000 AC 08/14 SC 0851 Iron Sucrose 100 MG Friday .. 08/14 1000 AC Sodium Chloride 100 ML IV 08/15 1000 Magnesium Sulfate 1 GM Q2H 08/14 1500 DC 08/14 Dextrose/Water 100 ML IV 08/14 1859 2303 Magnesium Sulfate 1 GM ONCE ONE 08/14 1445 CAN Dextrose/Water 100 ML IV 08/14 1844 Morphine Sulfate 2 MG Q4P PRN 08/13 1930 AC IV Multivitamins 1 TAB DAILY 08/14 1000 AC 08/14 PO 0851 Omeprazole 40 MG DAILY AC 08/14 0700 AC 08/15 PO 0532 Oxycodone/ 2 TAB Q8P PRN 08/14 1115 AC 08/14 Acetaminophen PO 1731 Oxycodone/ 1 TAB ONCE ONE 08/14 1015 DC 08/14 Acetaminophen PO 08/14 1016 1039 Oxycodone/ 1 TAB Q8P PRN 08/14 0800 DC 08/14 Acetaminophen PO 0850 Patient Medication 1 ED .STK-MED ONE 08/14 1357 DC Teaching ED 08/14 1358 Prednisone 5 MG DAILY 08/14 1000 AC 08/14 PO 0851 Sodium Chloride 2 SPRAY Q10MIN PRN 08/13 1915 AC CARLITOS Sodium Hypochlorite 1 CHAITANYA BID 08/130 08/14 TOP 1921 Sodium Thiosulfate 25 GM MoWeFr 08/14 1914 08/14 Sodium Chloride 150 ML IV 2020 Vitamin A/Vitamin D 1 CHAITANYA BID 08/13 2200 08/14 TOP 1921 Zinc Oxide 1 CHAITANYA BID 08/13 2199 08/14 TOP 1921 Findings Pertinent Lab/Avtar Results: Laboratory Tests 08/15 08/14 08/14 08/14 0215 1845 1640 1106 Chemistry BUN (9 - 20 mg/dL) 5 L Coagulation APTT (25 - 37 SEC) 52 H > 120 *H > 120 *H
[2016-08-15 07:58] VITALS: BP 134/60
[2016-08-15 08:27] LABS: ABSOLUTE BASOPHIL COUNT 0.1 /CUMM (0.0-0.2); ABSOLUTE EOSINOPHIL COUNT 0.2 /CUMM (0.0-0.7); ABSOLUTE GRANULOCYTE CT 6.1 /CUMM (1.4-6.5); ABSOLUTE LYMPH COUNT 1.2 /CUMM (1.2-3.4); ABSOLUTE MONOCYTE COUNT 0.8 /CUMM (0.10-0.60); BASOPHIL % 0.7 % (0.0-2.0); EOSINOPHIL % 2.1 % (0-5); GRANULOCYTE % 73.2 % (42.2-75.2); HEMATOCRIT 27.7 % (42-52); MEAN CORPUSCULAR HGB 28.4 PG (27.0-31.0); MEAN CORPUSCULAR HGB CONC 31.8 G/DL (33.0-37.0); MEAN CORPUSCULAR VOLUME 89.5 FL (80.0-94.0); MEAN PLATELET VOLUME 8.8 FL (7.4-10.4); PLATELET COUNT 149 /CUMM (130-400); RBC DISTRIBUTION WIDTH 22.8 % (11.5-14.5); RED BLOOD CELL CT 3.09 /CUMM (4.70-6.10); WHITE BLOOD CELL COUNT 8.4 /CUMM (4.8-10.8)
--- NOTE | 2016-08-15 11:12 | NUR ---
Physical Therapy: Patient refused PT services secondary to pain and fatigue. At this time the patient is being placed on hold following 4 consecutive days of refusals. Nursing should use a eyad to get the patient out of bed.
[2016-08-15 11:20] LABS: PTT 66 SEC (25-37)
--- NOTE | 2016-08-15 11:49 | PN- Nephrology ---
Assessment/Plan Assessment: 1. Lower extremity ulcers. It appears a number of punch biopsies were taken. Await biopsy results. The main concern is whether or not he has calciphylaxis. In discussing this case with one of my partners, it may be that the patient regardless as to whether or not this is warfarin necrosis or calciphylaxis, the warfarin may aggravate the calciphylaxis. He may be better served by starting apixaban 2. End-stage renal disease on hemodialysis. Dialysis tomorrow. 3. Diabetes mellitus 4. History of antiphospholipid syndrome with deep venous thrombosis status post IVC filter her placement 5. Status post aVF. There seems to be a very mild thrill and bruit. Keep in mind, with the [place] bed, it is difficult to hear the bruit. Suggestion: 1. Await biopsy biopsy results 2. Continue with sodium thiosulfate 3. I would favor apixaban. 4. Aside from monitoring his anticoagulation, I would avoid ordering labs on nondialysis days. Subjective Subjective: Patient arouses easily. He offers no complaints. Objective Vital Signs and I&Os Vital Signs Date Time Temp Pulse Resp B/P Pulse O2 O2 Flow FiO2 Ox Delivery Rate 08/15 1023 92 100/42 08/15 0758 98.4 92 20 134/60 96 Nasal 2.0L Cannula 08/15 0000 97 Nasal 2.0L Cannula 08/15 0000 97.5 82 18 128/72 97 Nasal 2.0L Cannula 08/14 2123 95 128/60 08/14 1800 92 Room Air 08/14 1733 97.3 78 20 112/60 92 Intake & Output 08/15 1600 08/15 0400 08/14 1600 08/14 0400 08/13 1600 08/13 0400 Intake Total 173.6 739 1420.4 440 1024 428 Output Total 251 800 Balance -77.4 -61 1420.4 440 1024 428 Intake, IV 173.6 259 860.4 120 574 188 Intake, Oral 480 560 320 330 240 Intake, Other 120 Number 2 3 2 0 2 5 Bowel Movements Output, 800 Dialysate Output, Stool 1 Output, Urine 250 Patient 149 lb 139 lb 147 lb 141 lb Weight Physical Exam: General Appearance: well developed/nourished, no apparent distress, alert, awake , chronically ill-appearing man in no acute distress Head: atraumatic, normal appearance Ears, Nose, Throat: hearing grossly normal, moist mucus membranes Neck: normal inspection, supple, trachea mid line, no JVD, no masses, no tenderness Respiratory: normal breath sounds, chest non-tender, no respiratory distress, lungs clear Cardiovascular: regular rate/rhythm, no rubs or murmurs noted Abdomen: no abdominal bruits Extremities: he has nonhealing ulcers on both lower extremities. These appear to be on the calf. They have black eschar. Bandage in the right upper arm where the aVF is. Neurologic/Psychiatric: no motor/sensory deficits, awake, alert Skin: areas of eschar with an ulcer Current Medications: Current Medications Sig/Kailash Start time Last Medication Dose Route Stop Time Status Admin Acetaminophen 650 MG .STK-MED ONE 08/14 2106 DC PO 08/14 2107 Acetaminophen 650 MG Q6P PRN 08/13 1915 AC 08/14 PO 2123 Aspirin 81 MG DAILY 08/14 1000 AC 08/15 PO 1020 Atorvastatin Calcium 40 MG 1700 08/14 1700 AC 08/14 PO 1731 Carvedilol 25 MG BID 08/13 2200 AC 08/14 PO 2123 Collagenase 1 CHAITANYA DAILY 08/14 1000 AC 08/15 TOP 1021 Epoetin Ludwig 3,000 UNIT MoWeFr PRN 08/14 0800 AC IV Epoetin Ludwig 2,000 UNIT MoWeFr PRN 08/14 0800 AC IV Guaifenesin 600 MG Q12 08/13 2200 AC 08/15 PO 1021 Heparin Sodium 2,500 UNIT ONCE ONE 08/15 0430 DC 08/15 (Porcine) IV 08/15 0431 0430 Heparin Sodium 25,000 UNIT Q24H 08/13 2200 AC 08/14 (Porcine) IV 1248 Sodium Chloride 500 ML Insulin Aspart 0 AC & AT BEDTIME 08/14 0800 AC 08/15 SC 0839 Insulin Detemir 5 UNITS DAILY 08/14 1000 AC 08/15 SC 1024 Iron Sucrose 100 MG Friday .. 08/14 1000 DC Sodium Chloride 100 ML IV 08/15 1000 Magnesium Sulfate 1 GM Q2H 08/14 1500 DC 08/14 Dextrose/Water 100 ML IV 08/14 1859 2303 Magnesium Sulfate 1 GM ONCE ONE 08/14 1445 CAN Dextrose/Water 100 ML IV 08/14 1844 Morphine Sulfate 2 MG Q4P PRN 08/13 1930 AC IV Multivitamins 1 TAB DAILY 08/14 1000 AC 08/15 PO 1020 Omeprazole 40 MG DAILY AC 08/14 0700 AC 08/15 PO 0532 Oxycodone/ 2 TAB Q8P PRN 08/14 1115 AC 08/15 Acetaminophen PO 0833 Patient Medication 1 ED .STK-MED ONE 08/14 1357 DC Teaching ED 08/14 1358 Prednisone 5 MG DAILY 08/14 1000 AC 08/15 PO 1021 Sodium Chloride 2 SPRAY Q10MIN PRN 08/13 1914 AC CARLITOS Sodium Hypochlorite 1 CHAITANYA BID 08/13 2199 AC 08/15 TOP 1021 Sodium Thiosulfate 25 GM MoWeFr 08/14 1914 AC 08/14 Sodium Chloride 150 ML IV 2020 Vitamin A/Vitamin D 1 CHAITANYA BID 08/13 2199 AC 08/15 TOP 1024 Zinc Oxide 1 CHAITANYA BID 08/13 2199 AC 08/15 TOP 1021 Results Pertinent Lab Results: Laboratory Tests 08/15 08/15 08/15 08/14 1030 0715 0215 1845 Chemistry Sodium (137 - 145 mmol/L) 137 Potassium (3.5 - 5.1 mmol/L) 3.6 Chloride (98 - 107 mmol/L) 107 Carbon Dioxide (22 - 30 mmol/L) 26 Anion Gap (5 - 16) 5 BUN (9 - 20 mg/dL) 11 Creatinine (0.7 - 1.2 mg/dL) 1.5 H Estimated GFR (>60 ml/min) 46 L BUN/Creatinine Ratio (7 - 25 %) 7.3 Phosphorus (2.5 - 4.5 mg/dL) 2.9 Magnesium (1.6 - 2.3 mg/dL) 1.9 Coagulation APTT (25 - 37 SEC) 66 H 52 H > 120 *H Hematology CBC w Diff NO MAN DIFF REQ WBC (4.8 - 10.8 /CUMM) 8.4 RBC (4.70 - 6.10 /CUMM) 3.09 L Hgb (14.0 - 18.0 G/DL) 8.8 L Hct (42 - 52 %) 27.7 L MCV (80.0 - 94.0 FL) 89.5 MCH (27.0 - 31.0 PG) 28.4 RDW (11.5 - 14.5 %) 22.8 H Plt Count (130 - 400 /CUMM) 149 MPV (7.4 - 10.4 FL) 8.8 Gran % (42.2 - 75.2 %) 73.2 Lymphocytes % (20.5 - 51.1 %) 14.7 L Monocytes % (1.7 - 9.3 %) 9.3 Eosinophils % (0 - 5 %) 2.1 Basophils % (0.0 - 2.0 %) 0.7 Absolute Granulocytes (1.4 - 6.5 /CUMM) 6.1 Absolute Lymphocytes (1.2 - 3.4 /CUMM) 1.2 Absolute Monocytes (0.10 - 0.60 /CUMM) 0.8 H Absolute Eosinophils (0.0 - 0.7 /CUMM) 0.2 Absolute Basophils (0.0 - 0.2 /CUMM) 0.1 PUBS MCHC (33.0 - 37.0 G/DL) 31.8 L 08/14 08/14 08/14 08/13 1640 1106 0420 2038 Chemistry Sodium (137 - 145 mmol/L) 132 L Potassium (3.5 - 5.1 mmol/L) 3.8 Chloride (98 - 107 mmol/L) 102 Carbon Dioxide (22 - 30 mmol/L) 22 Anion Gap (5 - 16) 8 BUN (9 - 20 mg/dL) 5 L 14 Creatinine (0.7 - 1.2 mg/dL) 1.9 H Estimated GFR (>60 ml/min) 35 L BUN/Creatinine Ratio (7 - 25 %) 7.4 Phosphorus (2.5 - 4.5 mg/dL) 3.5 Magnesium (1.6 - 2.3 mg/dL) 1.3 L Albumin (3.5 - 5.0 g/dL) 1.7 L Coagulation APTT (25 - 37 SEC) > 120 *H > 120 *H 49 H Hematology CBC w Diff NO MAN DIFF REQ WBC (4.8 - 10.8 /CUMM) 7.5 RBC (4.70 - 6.10 /CUMM) 2.82 L Hgb (14.0 - 18.0 G/DL) 7.8 L Hct (42 - 52 %) 25.1 L MCV (80.0 - 94.0 FL) 89.1 MCH (27.0 - 31.0 PG) 27.8 RDW (11.5 - 14.5 %) 22.5 H Plt Count (130 - 400 /CUMM) 158 MPV (7.4 - 10.4 FL) 8.8 Gran % (42.2 - 75.2 %) 76.7 H Lymphocytes % (20.5 - 51.1 %) 11.6 L Monocytes % (1.7 - 9.3 %) 11.3 H Eosinophils % (0 - 5 %) 0.1 Basophils % (0.0 - 2.0 %) 0.3 Absolute Granulocytes (1.4 - 6.5 /CUMM) 5.8 Absolute Lymphocytes (1.2 - 3.4 /CUMM) 0.9 L Absolute Monocytes (0.10 - 0.60 /CUMM) 0.8 H Absolute Eosinophils (0.0 - 0.7 /CUMM) 0 Absolute Basophils (0.0 - 0.2 /CUMM) 0 PUBS MCHC (33.0 - 37.0 G/DL) 31.2 L 08/13 08/13 08/13 1340 0858 0100 Chemistry Sodium (137 - 145 mmol/L) 138 Potassium (3.5 - 5.1 mmol/L) 4.0 Chloride (98 - 107 mmol/L) 104 Carbon Dioxide (22 - 30 mmol/L) 27 Anion Gap (5 - 16) 8 BUN (9 - 20 mg/dL) 12 Creatinine (0.7 - 1.2 mg/dL) 1.7 H Estimated GFR (>60 ml/min) 40 L BUN/Creatinine Ratio (7 - 25 %) 7.1 Phosphorus (2.5 - 4.5 mg/dL) 2.2 L Coagulation APTT (25 - 37 SEC) 41 H 42 H Hematology CBC w Diff NO MAN DIFF REQ WBC (4.8 - 10.8 /CUMM) 11.3 H RBC (4.70 - 6.10 /CUMM) 3.16 L Hgb (14.0 - 18.0 G/DL) 8.8 L Hct (42 - 52 %) 28.1 L MCV (80.0 - 94.0 FL) 88.8 MCH (27.0 - 31.0 PG) 27.8 RDW (11.5 - 14.5 %) 22.4 H Plt Count (130 - 400 /CUMM) 176 MPV (7.4 - 10.4 FL) 8.5 Gran % (42.2 - 75.2 %) 86.6 H Lymphocytes % (20.5 - 51.1 %) 5.9 L Monocytes % (1.7 - 9.3 %) 5.8 Eosinophils % (0 - 5 %) 1.3 Basophils % (0.0 - 2.0 %) 0.4 Absolute Granulocytes (1.4 - 6.5 /CUMM) 9.8 H Absolute Lymphocytes (1.2 - 3.4 /CUMM) 0.7 L Absolute Monocytes (0.10 - 0.60 /CUMM) 0.7 H Absolute Eosinophils (0.0 - 0.7 /CUMM) 0.1 Absolute Basophils (0.0 - 0.2 /CUMM) 0 PUBS MCHC (33.0 - 37.0 G/DL) 31.3 L 08/12 08/12 1540 1245 Chemistry Sodium (137 - 145 mmol/L) 137 Potassium (3.5 - 5.1 mmol/L) 4.6 Chloride (98 - 107 mmol/L) 105 Carbon Dioxide (22 - 30 mmol/L) 23 Anion Gap (5 - 16) 9 BUN (9 - 20 mg/dL) 25 H Creatinine (0.7 - 1.2 mg/dL) 2.7 H Estimated GFR (>60 ml/min) 23 L BUN/Creatinine Ratio (7 - 25 %) 9.3 Coagulation APTT (25 - 37 SEC) 61 H Hematology CBC w Diff NO MAN DIFF REQ WBC (4.8 - 10.8 /CUMM) 11.0 H RBC (4.70 - 6.10 /CUMM) 3.00 L Hgb (14.0 - 18.0 G/DL) 8.3 L Hct (42 - 52 %) 26.9 L MCV (80.0 - 94.0 FL) 89.8 MCH (27.0 - 31.0 PG) 27.7 RDW (11.5 - 14.5 %) 21.9 H Plt Count (130 - 400 /CUMM) 186 MPV (7.4 - 10.4 FL) 9.5 Gran % (42.2 - 75.2 %) 85.3 H Lymphocytes % (20.5 - 51.1 %) 6.7 L Monocytes % (1.7 - 9.3 %) 6.9 Eosinophils % (0 - 5 %) 0.9 Basophils % (0.0 - 2.0 %) 0.2 Absolute Granulocytes (1.4 - 6.5 /CUMM) 9.4 H Absolute Lymphocytes (1.2 - 3.4 /CUMM) 0.7 L Absolute Monocytes (0.10 - 0.60 /CUMM) 0.8 H Absolute Eosinophils (0.0 - 0.7 /CUMM) 0.1 Absolute Basophils (0.0 - 0.2 /CUMM) 0 PUBS MCHC (33.0 - 37.0 G/DL) 30.8 L
[2016-08-15 16:09] VITALS: BP 138/54
[2016-08-15 23:04] LABS: PTT 70 SEC (25-37)
[2016-08-15 23:21] VITALS: BP 130/56
--- NOTE | 2016-08-16 00:45 | NUR ---
ALERT AND ORIENTED X 3. VITAL SIGNS STABLE. ON ROOM AIR. LLE DSG CHANGED. DRESSINGS ARE CLEAN, DRY, AND INTACT REPOSITIONED Q2. PATIENT IS RESTING AT THIS TIME WILL CONTINUE TO MONITOR
--- NOTE | 2016-08-16 06:57 | PN- Housestaff ---
See Addendum Subjective Follow-up For: Chronic left leg ulcer ESRD requiring AV fistula placement Deconditioning Possible calciphylaxis in the setting of antiphospholipid antibody syndrome Subjective: Patient seen and examined at bedside this AM. He responds appropriately to questions and does not appear disoriented or lethargic. He reports he slept well , though his bilateral lower extremities are continuing to cause him pain. Percocet is helping his pain. Review of Systems Constitutional: Denies: chills, fever, malaise. EENTM: Denies: blurred vision, visual changes. Cardiovascular: Denies: chest pain, palpitations. Respiratory: Denies: cough, short of breath. Gastrointestinal: Denies: abdominal pain. Genitourinary: Reports: no symptoms. Musculoskeletal: Reports: muscle pain (Bilateral lower extremity pain). Skin: Reports: lesions (LLE chronic ulcer). Neurological/Psychological: Denies: confusion, headache. Hematologic/Endocrine: Denies: polydipsia. Objective Last 24 Hrs of Vital Signs/I&O Vital Signs Date Time Temp Pulse Resp B/P Pulse O2 O2 Flow FiO2 Ox Delivery Rate 08/16 0856 78 130/58 08/16 0746 98.0 78 19 130/58 94 08/15 2321 98.4 87 20 130/56 97 08/15 2304 88 140/69 08/15 1609 98.5 90 20 138/54 96 Nasal 2.0L Cannula Intake & Output 08/16 1600 08/16 0800 08/16 0000 Intake Total 187.2 400 Output Total Balance 187.2 400 Intake, IV 187.2 Intake, Oral 400 Number 4 2 Bowel Movements Patient 148 lb Weight Physical Exam General Appearance: Alert, Oriented X3, Cooperative, No Acute Distress Skin: Left lower extremity chronic leg ulcer covered in kerlex. HEENT: Atraumatic, PERRLA, Mucous Membr. moist/pink Neck: Supple Lymphatic: Cervical nl Cardiovascular: Normal S1, Normal S2 Lungs: Clear to Auscultation, Normal Air Movement Abdomen: Normal Bowel Sounds, Soft Neurological: Normal Speech Extremities: No Edema Current Medications: Current Medications Sig/Kailash Start time Last Medication Dose Route Stop Time Status Admin Acetaminophen 650 MG Q6P PRN 08/13 1915 AC 08/14 PO 2123 Aspirin 81 MG DAILY 08/14 1000 AC 08/16 PO 0852 Atorvastatin Calcium 40 MG 1700 08/14 1700 AC 08/15 PO 1741 Carvedilol 25 MG BID 08/13 2200 AC 08/16 PO 0856 Collagenase 1 CHAITANYA DAILY 08/14 1000 AC 08/16 TOP 0732 Epoetin Ludwig 3,000 UNIT MoWeFr PRN 08/14 0800 AC IV Epoetin Ludwig 2,000 UNIT MoWeFr PRN 08/14 0800 AC IV Guaifenesin 600 MG Q12 08/13 2200 AC 08/16 PO 0852 Heparin Sodium 25,000 UNIT Q24H 08/13 220 AC 08/16 (Porcine) IV 1114 Sodium Chloride 500 ML Insulin Aspart 0 AC & AT BEDTIME 08/14 0800 AC 08/16 SC 1138 Insulin Detemir 5 UNITS DAILY 08/14 1000 AC 08/16 SC 0852 Morphine Sulfate 2 MG Q4P PRN 08/13 1930 AC IV Multivitamins 1 TAB DAILY 08/14 1000 AC 08/16 PO 0852 Omeprazole 40 MG DAILY AC 08/14 0700 AC 08/16 PO 0512 Oxycodone/ 2 TAB Q8P PRN 08/14 1115 AC 08/16 Acetaminophen PO 0532 Prednisone 5 MG DAILY 08/14 1000 AC 08/16 PO 0851 Sodium Chloride 2 SPRAY Q10MIN PRN 08/13 191 AC CARLITOS Sodium Hypochlorite 1 CHAITANYA BID 08/13 2199 AC 08/16 TOP 1034 Sodium Thiosulfate 25 GM MoWeFr 08/14 191 AC 08/14 Sodium Chloride 150 ML IV 2020 Vitamin A/Vitamin D 1 CHAITANYA BID 08/13 220 AC 08/16 TOP 0852 Zinc Oxide 1 CHAITANYA BID 08/13 2199 AC 08/16 TOP 0852 Last 24 Hrs of Lab/[facility] Results Last 24 Hrs of Labs/Mics: Laboratory Tests 08/16/16 1017: Sodium Pending, Potassium Pending, Chloride Pending, Carbon Dioxide Pending, Anion Gap Pending, BUN Pending, Creatinine Pending, BUN/Creatinine Ratio Pending , Phosphorus Pending, Magnesium Pending, APTT 68 H 08/15/16 2230: APTT 70 H Assessment/Plan Assessment: 75 y/o M with PMHx of antiphospholipid antibody syndrome, diabetes and CKD who presented with SOB, hoarseness and stridor, found to be uremic with initiation of HD, s/p debridement of chronic left leg ulcer, s/p IV vancomycin for soft tissue infection, currently awaiting outpatient dialysis slot placement and placement on AV fistula followed by skin biopsy today in the OR. Fever of unknown origin: Fluconazole 400mg PO after every dialysis has been DISCONTINUED as per ID recommendations. Follow off antibiotics, reconsult ID if any further issues arise. No fever noted over the last [address] abdomen and chest has not revealed any source of infection. Will monitor WBC on dialysis days. Area of AV fistula clean without signs of infection. Biopsy sites also without signs of infection. Continue to monitor LLE wound as well as coccygeal wound and clean/dress as per wound care recommendations. Anemia : Etiology multifactorial. Per GI anemia likely secondary to other causes than GI. Will have patient follow-up with GI as an outpatient. We'll continue iron supplementation and Epogen. Monitor CBC on dialysis days. Chronic left lower extremity ulcer: Nonhealing ulcer on left lower extremity along with multiple other ulcers. Wound care following. Skin biopsy to rule out calciphylaxis pending, awaiting results. Patient resumed on IV heparin since AV fistula placement/biopsy and waiting for biopsy to determine anticoagulation patient will require for discharge. Lovenox not an option as per nephro. Nephro does recommend apixaban, though coumadin will be beneficial if biopsy rules out calciphylaxis. Antiphospholipid antibody syndrome: Chronic right upper extremity DVT. On life- long anti-coagulation with warfarin, takes 5 mg PO QD. * Coumadin on hold, continued on IV heparin. Further anticoagulation management will be dependent on if biopsy positive for diagnoses of calciphylaxis. ESRD: Cr was 5 on admission, with gradual increase from 2-3 within the past year. Most likely etiology is progressive diabetic nephropathy. Mj cath was placed and urgent hemodialysis was initiated (06/26) with improvement of mental status. Patient is currently awaiting outpatient dialysis slot. * Nephrology following, continue to follow recs * Mj Cath in place, Continue HD MWF * Continue sevelamer 800 mg PO TIDAC when phos >3.5. 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 * AV fistula placed, awaiting maturity T2DM: Uncontrolled blood sugars this admission, secondary to steroids. * Endocrinology following, appreciate input * Levemir 5U SQ DAILY * NSS to continue as presently ordered HTN: Takes amlodipine 10 mg PO QD, carvedilol 25 mg PO BID, furosemide 80 mg PO BID and hydralazine 50 mg PO BID at home. * Holding home amlodipine, furosemide and hydralazine. * Continue home carvedilol. Crohn's disease: Patient has been taking prednisone 10 mg PO QD for many years to prevent flares. * Prednisone 5 mg daily. If patient at any time gets hypotensive, given a stress dose of steroid followed by increasing dose of prednisone to 10 mg daily * The patient to remain on aspirin, Protonix needed to be added. * C diff negative * Will provide stress dose of steroids today pending OR case Diet: Renal dialysis DVT PPx: Heparin and ALPs CODE: DNR/DNI Problem List: 1. Peripheral vascular disease 2. Type 2 diabetes mellitus 3. Chronic ulcer of left lower extremity 4. Antiphospholipid antibody syndrome 5. Supraglottic edema 6. End stage renal disease 7. DVT prophylaxis 8. Hyponatremia 9. Hyperkalemia Pain Ratin Pain Location: Bilateral lower extremities Pain Goal: Pain 4 or less Pain Plan: 2 tab percocet Q8P for pain. Tomorrow's Labs & Rationales: No labs on non-dialysis days.
[2016-08-16 07:46] VITALS: BP 130/58
--- NOTE | 2016-08-16 08:07 | PN- Diabetes ---
Assessment/Plan Assessment: The patient has been moved to general medicine and the family does not wish aggressive treatment at this time. The patient states pain is tolerable. The patient is on thickened liquids and his po intake has been improving. Patient states he feels improved. He states he is eating much better than before. His insulin regimen was changed yesterday to account for the surgery.. The patient had skin biopsies done and creation of a fistula in his right upper arm. He is being treated with IV heparim. Patient's blood sugars were in a good range yesterday. Fingerstick blood sugar this morning is 181. Plan: Suggest continue the present insulin. We are awaiting the skin biopsy results. Consider repeat swallowing evaluation of that the patient is more alert and stronger than before. Subjective Subjective: Feels better Review of Systems Constitutional: Denies: chills, fever. Cardiovascular: Denies: chest pain. Respiratory: Denies: cough, short of breath. Gastrointestinal: Denies: nausea, vomiting. Objective Last 24 Hrs of Vital Signs/I&O Vital Signs Date Time Temp Pulse Resp B/P Pulse O2 O2 Flow FiO2 Ox Delivery Rate 08/16 0746 98.0 78 19 130/58 94 08/15 2321 98.4 87 20 130/56 97 08/15 2304 88 140/69 08/15 1609 98.5 90 20 138/54 96 Nasal 2.0L Cannula 08/15 1023 92 100/42 Intake & Output 08/16 1600 08/16 0800 08/16 0000 Intake Total 187.2 400 Output Total Balance 187.2 400 Intake, IV 187.2 Intake, Oral 400 Number 4 2 Bowel Movements Patient 148 lb Weight Vital Signs Date Time Temp Pulse Resp B/P Pulse O2 O2 Flow FiO2 Ox Delivery Rate 08/16 0746 98.0 78 19 130/58 94 08/15 2321 98.4 87 20 130/56 97 08/15 2304 88 140/69 08/15 1609 98.5 90 20 138/54 96 Nasal 2.0L Cannula 08/15 1023 92 100/42 Intake & Output 08/16 1600 08/16 0800 08/16 0000 Intake Total 187.2 400 Output Total Balance 187.2 400 Intake, IV 187.2 Intake, Oral 400 Number 4 2 Bowel Movements Patient 148 lb Weight Physical Exam General Appearance: alert, awake Head: normal appearance Neck: normal inspection Cardiovascular: regular rate/rhythm Abdomen: normal bowel sounds Extremities: left leg bandaged Current Medications: Current Medications Sig/Kailash Start time Last Medication Dose Route Stop Time Status Admin Acetaminophen 650 MG Q6P PRN 08/13 1915 AC 08/14 PO 2123 Aspirin 81 MG DAILY 08/14 1000 AC 08/15 PO 1020 Atorvastatin Calcium 40 MG 1700 08/14 1700 AC 08/15 PO 1741 Carvedilol 25 MG BID 08/13 2200 AC 08/15 PO 2304 Collagenase 1 CHAITANYA DAILY 08/14 1000 AC 08/16 TOP 0732 Epoetin Ludwig 3,000 UNIT MoWeFr PRN 08/14 0800 AC IV Epoetin Ludwig 2,000 UNIT MoWeFr PRN 08/14 0800 AC IV Guaifenesin 600 MG Q12 08/13 2200 AC 08/15 PO 2304 Heparin Sodium 25,000 UNIT Q24H 08/130 AC 08/15 (Porcine) IV 1626 Sodium Chloride 500 ML Insulin Aspart 0 AC & AT BEDTIME 08/14 0800 AC 08/15 SC 1741 Insulin Detemir 5 UNITS DAILY 08/14 1000 AC 08/15 SC 1024 Iron Sucrose 100 MG Friday .. 08/14 1000 DC Sodium Chloride 100 ML IV 08/15 1000 Morphine Sulfate 2 MG Q4P PRN 08/13 1930 IV Multivitamins 1 TAB DAILY 08/14 1000 AC 08/15 PO 1020 Omeprazole 40 MG DAILY AC 08/14 0700 AC 08/16 PO 0512 Oxycodone/ 2 TAB Q8P PRN 08/14 1115 AC 08/16 Acetaminophen PO 0532 Prednisone 5 MG DAILY 08/14 1000 AC 08/15 PO 1021 Sodium Chloride 2 SPRAY Q10MIN PRN 08/13 191 AC CARLITOS Sodium Hypochlorite 1 CHAITANYA BID 08/13 2200 AC 08/15 TOP 2305 Sodium Thiosulfate 25 GM MoWeFr 08/145 AC 08/14 Sodium Chloride 150 ML IV 202 Vitamin A/Vitamin D 1 CHAITANYA BID 08/13 2200 AC 08/15 TOP 2305 Zinc Oxide 1 CHAITANYA BID 08/13 2200 AC 08/15 TOP 2305
[2016-08-16 11:04] LABS: PTT 68 SEC (25-37)
[2016-08-16] MEDS ORDERED: PREDNISONE5 M1 PO (12:51)
[2016-08-16] MEDS ORDERED: PERCOCET 5-3251 EACH PO (12:52)
[2016-08-16] MEDS ORDERED: PRILOSEC OTC20 M1 PO (13:06)
[2016-08-16] MEDS ORDERED: NEPHROCAPS SOFTG1 MG PO (13:07)
[2016-08-16] MEDS ORDERED: ATORVASTATIN CA40 M1 PO (13:07)
[2016-08-16] MEDS ORDERED: ASPIRIN EC81 M1 PO (13:08)
[2016-08-16] MEDS ORDERED: SALINE NASAL SP30 ML NASB (13:09)
[2016-08-16] MEDS ORDERED: MUCINEX600 M1 PO (13:09)
--- NOTE | 2016-08-16 13:22 | NUR ---
NOTIFIED BY ROSARIO ([employer]) THAT PATIENT'S SLOT HAS BEEN CANCELLED FOR TODAY AND HE HAS BEEN CHANGED TO A ES,TH,SAT SCHEDULE; PATIENT WILL RESUME DIALYSIS TOMORROW PER ROSARIO; CONFIRMED WITH DR GONSALES;
--- NOTE | 2016-08-16 14:05 | PN- Nephrology ---
Assessment/Plan Assessment: 1. Lower extremity ulcers. Awaiting the results of the punch biopsies .The main concern is whether or not he has calciphylaxis. In the interim the sodium thiosulfate ought to be continued. As discussed yesterday, there is concern that warfarin may aggravate calciphylaxis. Therefore a Paxil been may remain the better anticoagulant choice at this point. 2. End-stage renal disease on hemodialysis. Dialysis tomorrow since he apparently has an outpatient rehabilitation bed. He is outpatient dialysis seat will be at [facility]. The phone number there is [phone]. His seat is going to be Friday third shift. 3. Diabetes mellitus 4. History of antiphospholipid syndrome with deep venous thrombosis status post IVC filter her placement 5. Status post aVF. There seems to be a very mild thrill and bruit. Keep in mind, with the [place] bed, it is difficult to hear the bruit. Suggestion: 1. Await biopsy biopsy results 2. Continue with sodium thiosulfate 3. Would start apixaban. Subjective Subjective: Patient says he feels okay. He seems to be rather lethargic today. Objective Vital Signs and I&Os Vital Signs Date Time Temp Pulse Resp B/P Pulse O2 O2 Flow FiO2 Ox Delivery Rate 08/16 1306 Room Air Room Air 08/16 0856 78 130/58 08/16 0746 98.0 78 19 130/58 94 08/15 2321 98.4 87 20 130/56 97 08/15 2304 88 140/69 08/15 1609 98.5 90 20 138/54 96 Nasal 2.0L Cannula Intake & Output 08/16 1600 08/16 0400 08/15 1600 08/15 0400 08/14 1600 08/14 0400 Intake Total 187.2 400 173.6 739 1420.4 440 Output Total 251 800 Balance 187.2 400 -77.4 -61 1420.4 440 Intake, IV 187.2 173.6 259 860.4 120 Intake, Oral 400 480 560 320 Number 4 2 2 3 2 0 Bowel Movements Output, 800 Dialysate Output, Stool 1 Output, Urine 250 Patient 148 lb 149 lb 139 lb 147 lb Weight Physical Exam: General Appearance: well developed/nourished, no apparent distress, alert, awake , chronically ill-appearing man in no acute distress Head: atraumatic, normal appearance Ears, Nose, Throat: hearing grossly normal, moist mucus membranes Neck: normal inspection, supple, trachea mid line, no JVD, no masses, no tenderness Respiratory: normal breath sounds, chest non-tender, no respiratory distress, lungs clear Cardiovascular: regular rate/rhythm, no rubs or murmurs noted Abdomen: no abdominal bruits Extremities: he has nonhealing ulcers on both lower extremities. These appear to be on the calf. They have black eschar. Bandage in the right upper arm where the aVF is. Neurologic/Psychiatric: no motor/sensory deficits, awake, alert Skin: areas of eschar with an ulcer Current Medications: Current Medications Sig/Kailash Start time Last Medication Dose Route Stop Time Status Admin Acetaminophen 650 MG Q6P PRN 08/13 191 AC 08/14 PO 2123 Apixaban 2.5 MG BID 08/16 2199 AC PO Aspirin 81 MG DAILY 08/14 1000 AC 08/16 PO 0852 Atorvastatin Calcium 40 MG 1700 08/14 1700 AC 08/15 PO 1741 Carvedilol 25 MG BID 08/13 2200 AC 08/16 PO 0856 Collagenase 1 CHAITANYA DAILY 08/14 1000 AC 08/16 TOP 0732 Epoetin Ludwig 3,000 UNIT MoWeFr PRN 08/14 08 AC IV Epoetin Ludwig 2,000 UNIT MoWeFr PRN 08/14 0800 AC IV Guaifenesin 600 MG Q12 08/13 2200 AC 08/16 PO 0852 Heparin Sodium 25,000 UNIT Q24H 08/13 2199 AC 08/16 (Porcine) IV 08/16 2199 1114 Sodium Chloride 500 ML Insulin Aspart 0 AC & AT BEDTIME 08/14 0800 AC 08/16 SC 1138 Insulin Detemir 5 UNITS DAILY 08/14 1000 AC 08/16 SC 0852 Morphine Sulfate 2 MG Q4P PRN 08/13 1930 AC IV Multivitamins 1 TAB DAILY 08/14 1000 AC 08/16 PO 0852 Omeprazole 40 MG DAILY AC 08/14 0700 AC 08/16 PO 0512 Oxycodone/ 2 TAB Q8P PRN 08/14 1115 AC 08/16 Acetaminophen PO 0532 Prednisone 5 MG DAILY 08/14 1000 AC 08/16 PO 0851 Sodium Chloride 2 SPRAY Q10MIN PRN 08/13 1914 AC CARLITOS Sodium Hypochlorite 1 CHAITANYA BID 08/13 2199 AC 08/16 TOP 1034 Sodium Thiosulfate 25 GM MoWeFr 08/14 1914 AC 08/14 Sodium Chloride 150 ML IV 2020 Vitamin A/Vitamin D 1 CHAITANYA BID 08/13 2199 AC 08/16 TOP 0852 Zinc Oxide 1 CHAITANYA BID 08/13 2199 AC 08/16 TOP 0852 Results Pertinent Lab Results: Laboratory Tests 08/16 08/15 08/15 08/15 1017 2230 1030 0715 Chemistry Sodium (137 - 145 mmol/L) 140 137 Potassium (3.5 - 5.1 mmol/L) 3.4 L 3.6 Chloride (98 - 107 mmol/L) 108 H 107 Carbon Dioxide (22 - 30 mmol/L) 24 26 Anion Gap (5 - 16) 8 5 BUN (9 - 20 mg/dL) 18 11 Creatinine (0.7 - 1.2 mg/dL) 2.2 H 1.5 H Estimated GFR (>60 ml/min) 29 L 46 L BUN/Creatinine Ratio (7 - 25 %) 8.2 7.3 Phosphorus (2.5 - 4.5 mg/dL) 3.1 2.9 Magnesium (1.6 - 2.3 mg/dL) 1.8 1.9 Coagulation APTT (25 - 37 SEC) 68 H 70 H 66 H Hematology CBC w Diff NO MAN DIFF REQ WBC (4.8 - 10.8 /CUMM) 8.4 RBC (4.70 - 6.10 /CUMM) 3.09 L Hgb (14.0 - 18.0 G/DL) 8.8 L Hct (42 - 52 %) 27.7 L MCV (80.0 - 94.0 FL) 89.5 MCH (27.0 - 31.0 PG) 28.4 RDW (11.5 - 14.5 %) 22.8 H Plt Count (130 - 400 /CUMM) 149 MPV (7.4 - 10.4 FL) 8.8 Gran % (42.2 - 75.2 %) 73.2 Lymphocytes % (20.5 - 51.1 %) 14.7 L Monocytes % (1.7 - 9.3 %) 9.3 Eosinophils % (0 - 5 %) 2.1 Basophils % (0.0 - 2.0 %) 0.7 Absolute Granulocytes (1.4 - 6.5 /CUMM) 6.1 Absolute Lymphocytes (1.2 - 3.4 /CUMM) 1.2 Absolute Monocytes (0.10 - 0.60 /CUMM) 0.8 H Absolute Eosinophils (0.0 - 0.7 /CUMM) 0.2 Absolute Basophils (0.0 - 0.2 /CUMM) 0.1 PUBS MCHC (33.0 - 37.0 G/DL) 31.8 L 08/15 08/14 08/14 08/14 0215 1845 1640 1106 Chemistry BUN (9 - 20 mg/dL) 5 L Coagulation APTT (25 - 37 SEC) 52 H > 120 *H > 120 *H 08/14 08/13 0420 2038 Chemistry Sodium (137 - 145 mmol/L) 132 L Potassium (3.5 - 5.1 mmol/L) 3.8 Chloride (98 - 107 mmol/L) 102 Carbon Dioxide (22 - 30 mmol/L) 22 Anion Gap (5 - 16) 8 BUN (9 - 20 mg/dL) 14 Creatinine (0.7 - 1.2 mg/dL) 1.9 H Estimated GFR (>60 ml/min) 35 L BUN/Creatinine Ratio (7 - 25 %) 7.4 Phosphorus (2.5 - 4.5 mg/dL) 3.5 Magnesium (1.6 - 2.3 mg/dL) 1.3 L Albumin (3.5 - 5.0 g/dL) 1.7 L Coagulation APTT (25 - 37 SEC) > 120 *H 49 H Hematology CBC w Diff NO MAN DIFF REQ WBC (4.8 - 10.8 /CUMM) 7.5 RBC (4.70 - 6.10 /CUMM) 2.82 L Hgb (14.0 - 18.0 G/DL) 7.8 L Hct (42 - 52 %) 25.1 L MCV (80.0 - 94.0 FL) 89.1 MCH (27.0 - 31.0 PG) 27.8 RDW (11.5 - 14.5 %) 22.5 H Plt Count (130 - 400 /CUMM) 158 MPV (7.4 - 10.4 FL) 8.8 Gran % (42.2 - 75.2 %) 76.7 H Lymphocytes % (20.5 - 51.1 %) 11.6 L Monocytes % (1.7 - 9.3 %) 11.3 H Eosinophils % (0 - 5 %) 0.1 Basophils % (0.0 - 2.0 %) 0.3 Absolute Granulocytes (1.4 - 6.5 /CUMM) 5.8 Absolute Lymphocytes (1.2 - 3.4 /CUMM) 0.9 L Absolute Monocytes (0.10 - 0.60 /CUMM) 0.8 H Absolute Eosinophils (0.0 - 0.7 /CUMM) 0 Absolute Basophils (0.0 - 0.2 /CUMM) 0 PUBS MCHC (33.0 - 37.0 G/DL) 31.2 L
[2016-08-16] MEDS ORDERED: DAKIN'S473 ML TOP (14:12)
[2016-08-16] MEDS ORDERED: NEPHRO-VITE TA0.8 MG PO (14:12)
[2016-08-16] MEDS ORDERED: SODIUM THI12.5 GM/50 IV (14:15)
[2016-08-16 15:51] VITALS: BP 128/58
[2016-08-16 22:55] LABS: PTT 73 SEC (25-37)
--- NOTE | 2016-08-16 23:36 | NUR ---
SIGN OFF REPORT AT 1500- ONCE PATIENT RECEIVES ELIQUIS AT 2200, STOP HEPARIN DRIP. DURING SHIFT- ELIQUIS D/C'D. SPOKE WITH [employer]ACHINE TENDER KRISHNA GONSALES-STATED PATIENT IS GETTING COUMADIN,NOT ELIQUIS AND CONTINUE THE HEPARIN PROTOCOL. IT CAN BE D/C'D ONCE HE IS THERAPEUTIC. 2300-PTT BLOOD DRAW FROM 2230 CAME BACK AT 73, THERAPEUTIC. SPOKE WITH GLASS CLE[employer]ING MACHINE TENDER NIC ALEJANDRE, QUESTIONING STATUS OF HEPARIN GTT, SINCE THE HEPARIN HAD ORIGINALLY BEEN D/C'D OFF EMAR WHEN ELIQUIS WAS ORDERED. PER DR ALEJANDRE, CONTINUE WITH HEPARIN PROTOCOL. HEPARIN DRIP CONTINUING AT 23.4 ML/HR, WITH NEXT PTT DRAW AT 1100 08/17/16.
[2016-08-16 23:47] VITALS: BP 128/72
[2016-08-17 07:54] VITALS: BP 120/62
--- NOTE | 2016-08-17 07:58 | PN- Housestaff ---
See Addendum Subjective Follow-up For: ESRD requiring AV fistula placement Chronic ulcerations Supraglottic edema Subjective: Patient seen and examined at bedside this AM. He reports he feels well, though his pain remains moderate at about a 6. He is requesting percocet. Otherwise he offers no complaints. Review of Systems Constitutional: Denies: chills, fever, malaise. EENTM: Denies: blurred vision, visual changes, hearing changes, nasal congestion. Cardiovascular: Denies: chest pain, palpitations. Respiratory: Denies: cough, short of breath. Gastrointestinal: Denies: abdominal pain, bloating, constipation, diarrhea. Genitourinary: Reports: no symptoms. Musculoskeletal: Reports: muscle pain (Bilateral lower extremities). Skin: Reports: lesions (Chronic left leg ulcer). Neurological/Psychological: Denies: confusion, headache. Hematologic/Endocrine: Denies: bruising, bleeding. Objective Last 24 Hrs of Vital Signs/I&O Vital Signs Date Time Temp Pulse Resp B/P Pulse O2 O2 Flow FiO2 Ox Delivery Rate 08/17 0754 98.1 84 20 120/62 94 Room Air 08/16 2347 98.4 74 18 128/72 94 Room Air 08/16 2127 70 136/60 08/16 1551 98.4 84 18 128/58 93 08/16 1306 Room Air Room Air 08/16 0856 78 130/58 Intake & Output 08/17 1600 08/17 0800 08/17 0000 Intake Total 587.2 687 Output Total 175 Balance 587.2 512 Intake, IV 187.2 187 Intake, Oral 400 500 Number 5 6 Bowel Movements Output, Urine 175 Patient 149 lb Weight Physical Exam General Appearance: Alert, Oriented X3, Cooperative, No Acute Distress Skin: No Rashes, No Significant Lesion HEENT: Atraumatic, Mucous Membr. moist/pink Neck: Supple Cardiovascular: Normal S1, Normal S2 Lungs: Clear to Auscultation, Normal Air Movement Abdomen: Normal Bowel Sounds, Soft, No Tenderness, No Hepatospenomegaly, No Masses Neurological: Normal Speech, Normal Tone Extremities: LLE wrapped in kerlex as patient has chronic left lower leg ulceration requring daily dressing changes. Current Medications: Current Medications Sig/Kailash Start time Last Medication Dose Route Stop Time Status Admin Acetaminophen 650 MG Q6P PRN 08/13 1914 AC 08/14 PO 2123 Apixaban 2.5 MG BID 08/16 2200 CAN PO Aspirin 81 MG DAILY 08/14 1000 AC 08/16 PO 0852 Atorvastatin Calcium 40 MG 1700 08/14 1700 AC 08/16 PO 1600 Carvedilol 25 MG BID 08/13 2200 AC 08/16 PO 2127 Collagenase 1 CHAITANYA DAILY 08/14 1000 AC 08/16 TOP 0732 Epoetin Ludwig 2,000 UNIT TUES THURS SAT PRN 08/17 1000 AC IV Epoetin Ludwig 3,000 UNIT TUES THURS SAT PRN 08/17 1000 AC IV Epoetin Ludwig 3,000 UNIT MoWeFr PRN 08/14 0800 DC IV Epoetin Ludwgi 2,000 UNIT MoWeFr PRN 08/14 0800 DC IV Guaifenesin 600 MG Q12 08/13 2200 AC 08/16 PO 2122 Heparin Sodium 25,000 UNIT Q24H 08/16 2330 AC 08/16 (Porcine) IV 2335 Sodium Chloride 500 ML Heparin Sodium 25,000 UNIT Q24H 08/13 2199 DC 08/16 (Porcine) IV 08/16 220 1114 Sodium Chloride 500 ML Insulin Aspart 0 AC & AT BEDTIME 08/14 0800 AC 08/16 SC 1709 Insulin Detemir 5 UNITS DAILY 08/14 1000 AC 08/16 SC 0852 Morphine Sulfate 2 MG Q4P PRN 08/13 1930 AC IV Multivitamins 1 TAB DAILY 08/14 1000 AC 08/16 PO 0852 Omeprazole 40 MG DAILY AC 08/14 0700 AC 08/17 PO 0612 Oxycodone/ 2 TAB Q8P PRN 08/14 1115 AC 08/16 Acetaminophen PO 1600 Prednisone 5 MG DAILY 08/14 1000 AC 08/16 PO 0851 Sodium Chloride 2 SPRAY Q10MIN PRN 08/13 1915 AC CARLITOS Sodium Hypochlorite 1 CHAITANYA BID 08/13 2200 AC 08/16 TOP 203 Sodium Thiosulfate 25 GM TUES THURS SAT 08/17 1000 AC Sodium Chloride 150 ML IV Sodium Thiosulfate 25 GM MoWeFr 08/14 1915 DC 08/14 Sodium Chloride 150 ML IV 202 Vitamin A/Vitamin D 1 CHAITANYA BID 08/13 2200 AC 08/16 TOP 203 Warfarin Sodium 5 MG COUMADIN 1700 ONE 08/16 1700 DC 08/16 PO 08/16 1701 1600 Zinc Oxide 1 CHAITANYA BID 08/13 2200 AC 08/16 [facility] 2032 Last 24 Hrs of Lab/[place]tar Results Last 24 Hrs of Labs/Mics: Laboratory Tests 08/16/16 2235: APTT 73 H 08/16/16 1017: Anion Gap 8, Estimated GFR 29 L, BUN/Creatinine Ratio 8.2, Phosphorus 3.1, Magnesium 1.8, APTT 68 H Assessment/Plan Assessment: Mr. Marvin is a pleasant 75 y/o M with PMHx of antiphospholipid antibody syndrome, diabetes and CKD who presented with SOB, hoarseness and stridor, found to be uremic with initiation of HD, s/p debridement of chronic left leg ulcer, s /p IV vancomycin for soft tissue infection, currently awaiting outpatient dialysis slot placement and placement on AV fistula followed by skin biopsy today in the OR. Supraglottic edema Resolved. Fever of unknown origin: Fluconazole 400mg PO after every dialysis has been DISCONTINUED as per ID recommendations. Follow off antibiotics, reconsult ID if any further issues arise. No fever noted over the last [address] abdomen and chest has not revealed any source of infection. Will monitor WBC on dialysis days. Area of AV fistula clean without signs of infection. Biopsy sites also without signs of infection. Continue to monitor LLE wound as well as coccygeal wound and clean/dress as per wound care recommendations. Anemia : Etiology multifactorial. Per GI anemia likely secondary to other causes than GI. Will have patient follow-up with GI as an outpatient. We'll continue iron supplementation and Epogen. Monitor CBC on dialysis days. Chronic left lower extremity ulcer: Nonhealing ulcer on left lower extremity along with multiple other ulcers. Wound care following. Skin biopsy to rule out calciphylaxis shows NO EVIDENCE OF CALCIPHYLAXIS OR WARFARIN-INDUCED SKIN NECROSIS. Patient resumed on IV heparin while we are bridging with coumadin until INR therapeutic between 2-3. Antiphospholipid antibody syndrome: Chronic right upper extremity DVT. On life- long anti-coagulation with warfarin, takes 5 mg PO QD. * Will continue bridging with coumadin, daily INR checks. ESRD: Cr was 5 on admission, with gradual increase from 2-3 within the past year. Most likely etiology is progressive diabetic nephropathy. Mj cath was placed and urgent hemodialysis was initiated (06/26) with improvement of mental status. Patient is currently awaiting outpatient dialysis slot. * Nephrology following, continue to follow recs * Mj Cath in place, HD scheduled for Fri, patient will recieve dialysis today. * Continue sevelamer 800 mg PO TIDAC when phos >3.5. * Continue daily Nephrocaps * Sodium thiosulphate 25gm with HD 3 x a week. * AV fistula placed, awaiting maturity T2DM: Uncontrolled blood sugars this admission, secondary to steroids. * Endocrinology following, appreciate input * Levemir 5U SQ DAILY * NSS to continue as presently ordered HTN: Takes amlodipine 10 mg PO QD, carvedilol 25 mg PO BID, furosemide 80 mg PO BID and hydralazine 50 mg PO BID at home. * Holding home amlodipine, furosemide and hydralazine. * Continue home carvedilol. Crohn's disease: Patient has been taking prednisone 10 mg PO QD for many years to prevent flares. * Prednisone 5 mg daily. If patient at any time gets hypotensive, given a stress dose of steroid followed by increasing dose of prednisone to 10 mg daily * The patient to remain on aspirin. * C. diff negative Diet: Renal dialysis DVT PPx: Heparin and warfarin CODE: DNR/DNI Problem List: 1. Pneumonia 2. Peripheral vascular disease 3. Bilateral vocal cord paralysis 4. Type 2 diabetes mellitus 5. Chronic ulcer of left lower extremity 6. Antiphospholipid antibody syndrome 7. Elevated troponin 8. Supraglottic edema Pain Ratin Pain Location: Bilateral lower extremities Pain Goal: Pain 4 or less Pain Plan: 2 tab percocet Q8P for moderate pain. Tomorrow's Labs & Rationales: INR to monitor. No other labs on non-dialysis days.
[2016-08-17 09:20] LABS: PT 11.5 SEC (9.4-12.5)
[2016-08-17 11:22] LABS: ABSOLUTE BASOPHIL COUNT 0 /CUMM (0.0-0.2); ABSOLUTE EOSINOPHIL COUNT 0.2 /CUMM (0.0-0.7); ABSOLUTE GRANULOCYTE CT 4.4 /CUMM (1.4-6.5); ABSOLUTE LYMPH COUNT 0.9 /CUMM (1.2-3.4); ABSOLUTE MONOCYTE COUNT 0.6 /CUMM (0.10-0.60); BASOPHIL % 0.1 % (0.0-2.0); GRANULOCYTE % 71.9 % (42.2-75.2); HEMATOCRIT 28.7 % (42-52); MEAN CORPUSCULAR HGB 28.2 PG (27.0-31.0); MEAN CORPUSCULAR HGB CONC 31.1 G/DL (33.0-37.0); MEAN CORPUSCULAR VOLUME 90.6 FL (80.0-94.0); MEAN PLATELET VOLUME 8.1 FL (7.4-10.4); PLATELET COUNT 119 /CUMM (130-400); RBC DISTRIBUTION WIDTH 25.1 % (11.5-14.5); RED BLOOD CELL CT 3.16 /CUMM (4.70-6.10); WHITE BLOOD CELL COUNT 6.1 /CUMM (4.8-10.8)
[2016-08-17 11:40] LABS: PTT 52 SEC (25-37)
--- NOTE | 2016-08-17 12:19 | PN- Nephrology ---
Assessment/Plan Assessment: 1. ESRD: HD later today 2. Skin necrosis: etiology unclear but preliminary bx reportedly neg for calciphylaxis --> if confirmed can d/c Na thiosulfate Suggestion: vasc surg f/u re ? AVF thrombosed next HD Tu Subjective Subjective: Awake - lethargic c/o post op R arm wound pain Objective Vital Signs and I&Os Vital Signs Date Time Temp Pulse Resp B/P Pulse O2 O2 Flow FiO2 Ox Delivery Rate 08/17 0855 68 126/80 08/17 0754 98.1 84 20 120/62 94 Room Air 08/16 2347 98.4 74 18 128/72 94 Room Air 08/16 2127 70 136/60 08/16 1551 98.4 84 18 128/58 93 08/16 1306 Room Air Room Air Intake & Output 08/17 1600 08/17 0400 08/16 1600 08/16 0400 08/15 1600 08/15 0400 Intake Total 587.2 687 734.4 400 173.6 739 Output Total 175 251 800 Balance 587.2 512 734.4 400 -77.4 -61 Intake, IV 187.2 187 374.4 173.6 259 Intake, Oral 400 500 360 400 480 Number 6 6 5 2 2 3 Bowel Movements Output, 800 Dialysate Output, Stool 1 Output, Urine 175 250 Patient 149 lb 148 lb 149 lb 139 lb Weight Physical Exam General Appearance: no apparent distress Head: atraumatic Neck: R IJ HD cath Respiratory: poor effort Cardiovascular: regular rate/rhythm Abdomen: soft, non-tender Extremities: no change necrotic lesions no bruit heard over MK AVF Current Medications: Current Medications Sig/Kailash Start time Last Medication Dose Route Stop Time Status Admin Acetaminophen 650 MG Q6P PRN 08/13 1915 AC 08/14 PO 2123 Apixaban 2.5 MG BID 08/16 2199 CAN PO Aspirin 81 MG DAILY 08/14 1000 AC 08/17 PO 0855 Atorvastatin Calcium 40 MG 1700 08/14 1700 AC 08/16 PO 1600 Carvedilol 25 MG BID 08/13 2200 AC 08/17 PO 0855 Collagenase 1 CHAITANYA DAILY 08/14 1000 AC 08/17 TOP 0855 Epoetin Ludwig 2,000 UNIT TUES THURS SAT PRN 08/17 1000 AC IV Epoetin Ludwig 3,000 UNIT TUES THURS SAT PRN 08/17 1000 AC IV Epoetin Ludwig 3,000 UNIT MoWeFr PRN 08/14 0800 DC IV Epoetin Ludwig 2,000 UNIT MoWeFr PRN 08/14 0800 DC IV Guaifenesin 600 MG Q12 08/13 2200 AC 08/17 PO 0855 Heparin Sodium 25,000 UNIT Q24H 08/16 2330 AC 08/16 (Porcine) IV 2335 Sodium Chloride 500 ML Heparin Sodium 25,000 UNIT Q24H 08/13 2200 DC 08/16 (Porcine) IV 08/16 220 1114 Sodium Chloride 500 ML Insulin Aspart 0 AC & AT BEDTIME 08/14 0800 AC 08/17 SC 0854 Insulin Detemir 5 UNITS DAILY 08/14 1000 AC 08/17 SC 0854 Morphine Sulfate 2 MG Q4P PRN 08/13 193 AC IV Multivitamins 1 TAB DAILY 08/14 1000 AC 08/17 PO 0854 Omeprazole 40 MG DAILY AC 08/14 0700 AC 08/17 PO 0612 Oxycodone/ 2 TAB Q8P PRN 08/14 1115 08/16 Acetaminophen PO 1600 Prednisone 5 MG DAILY 08/14 1000 AC 08/17 PO 0855 Sodium Chloride 2 SPRAY Q10MIN PRN 08/13 1914 AC CARLITOS Sodium Hypochlorite 1 CHAITANYA BID 08/13 2199 08/17 TOP 0855 Sodium Thiosulfate 25 GM ES THURS SAT 08/17 1000 CAN Sodium Chloride 150 ML IV Sodium Thiosulfate 25 GM MoWeFr 08/14 191 DC 08/14 Sodium Chloride 150 ML IV 2020 Vitamin A/Vitamin D 1 CHAITANYA BID 08/13 2199 08/17 TOP 0855 Warfarin Sodium 2.5 MG COUMADIN 1700 ONE 08/17 1700 AC PO 08/17 1701 Warfarin Sodium 5 MG COUMADIN 1700 ONE 08/16 1700 DC 08/16 PO 08/16 1701 1600 Zinc Oxide 1 CHAITANYA BID 08/13 2199 08/17 TOP 0855 Results Pertinent Lab Results: Laboratory Tests 08/17 08/17 08/16 08/16 1100 0625 2235 1017 Chemistry Sodium (137 - 145 mmol/L) 141 140 Potassium (3.5 - 5.1 mmol/L) 3.9 3.4 L Chloride (98 - 107 mmol/L) 108 H 108 H Carbon Dioxide (22 - 30 mmol/L) 24 24 Anion Gap (5 - 16) 10 8 BUN (9 - 20 mg/dL) 23 H 18 Creatinine (0.7 - 1.2 mg/dL) 2.7 H 2.2 H Estimated GFR (>60 ml/min) 23 L 29 L BUN/Creatinine Ratio (7 - 25 %) 8.5 8.2 Phosphorus (2.5 - 4.5 mg/dL) 3.5 3.1 Magnesium (1.6 - 2.3 mg/dL) 1.5 L 1.8 Coagulation PT (9.4 - 12.5 SEC) 11.5 INR (0.90 - 1.17) 1.10 APTT (25 - 37 SEC) 52 H 73 H 68 H Hematology CBC w Diff NO MAN DIFF REQ WBC (4.8 - 10.8 /CUMM) 6.1 RBC (4.70 - 6.10 /CUMM) 3.16 L Hgb (14.0 - 18.0 G/DL) 8.9 L Hct (42 - 52 %) 28.7 L MCV (80.0 - 94.0 FL) 90.6 MCH (27.0 - 31.0 PG) 28.2 RDW (11.5 - 14.5 %) 25.1 H Plt Count (130 - 400 /CUMM) 119 L MPV (7.4 - 10.4 FL) 8.1 Gran % (42.2 - 75.2 %) 71.9 Lymphocytes % (20.5 - 51.1 %) 15.0 L Monocytes % (1.7 - 9.3 %) 10.0 H Eosinophils % (0 - 5 %) 3.0 Basophils % (0.0 - 2.0 %) 0.1 Absolute Granulocytes (1.4 - 6.5 /CUMM) 4.4 Absolute Lymphocytes (1.2 - 3.4 /CUMM) 0.9 L Absolute Monocytes (0.10 - 0.60 /CUMM) 0.6 Absolute Eosinophils (0.0 - 0.7 /CUMM) 0.2 Absolute Basophils (0.0 - 0.2 /CUMM) 0 PUBS MCHC (33.0 - 37.0 G/DL) 31.1 L 08/15 08/15 08/15 08/15 2230 1030 0715 0215 Chemistry Sodium (137 - 145 mmol/L) 137 Potassium (3.5 - 5.1 mmol/L) 3.6 Chloride (98 - 107 mmol/L) 107 Carbon Dioxide (22 - 30 mmol/L) 26 Anion Gap (5 - 16) 5 BUN (9 - 20 mg/dL) 11 Creatinine (0.7 - 1.2 mg/dL) 1.5 H Estimated GFR (>60 ml/min) 46 L BUN/Creatinine Ratio (7 - 25 %) 7.3 Phosphorus (2.5 - 4.5 mg/dL) 2.9 Magnesium (1.6 - 2.3 mg/dL) 1.9 Coagulation APTT (25 - 37 SEC) 70 H 66 H 52 H Hematology CBC w Diff NO MAN DIFF REQ WBC (4.8 - 10.8 /CUMM) 8.4 RBC (4.70 - 6.10 /CUMM) 3.09 L Hgb (14.0 - 18.0 G/DL) 8.8 L Hct (42 - 52 %) 27.7 L MCV (80.0 - 94.0 FL) 89.5 MCH (27.0 - 31.0 PG) 28.4 RDW (11.5 - 14.5 %) 22.8 H Plt Count (130 - 400 /CUMM) 149 MPV (7.4 - 10.4 FL) 8.8 Gran % (42.2 - 75.2 %) 73.2 Lymphocytes % (20.5 - 51.1 %) 14.7 L Monocytes % (1.7 - 9.3 %) 9.3 Eosinophils % (0 - 5 %) 2.1 Basophils % (0.0 - 2.0 %) 0.7 Absolute Granulocytes (1.4 - 6.5 /CUMM) 6.1 Absolute Lymphocytes (1.2 - 3.4 /CUMM) 1.2 Absolute Monocytes (0.10 - 0.60 /CUMM) 0.8 H Absolute Eosinophils (0.0 - 0.7 /CUMM) 0.2 Absolute Basophils (0.0 - 0.2 /CUMM) 0.1 PUBS MCHC (33.0 - 37.0 G/DL) 31.8 L 08/14 08/14 1845 1640 Chemistry BUN (9 - 20 mg/dL) 5 L Coagulation APTT (25 - 37 SEC) > 120 *H
--- NOTE | 2016-08-17 13:01 | PN- Diabetes ---
Assessment/Plan Assessment: The patient has been moved to general medicine and the family does not wish aggressive treatment at this time. The patient had skin biopsies done and creation of a fistula in his right upper arm. He is being treated with IV heparim. The patient states pain is tolerable. The patient is on thickened liquids and his po intake has been improving. Currently he is on Levemir 5 units daily, Novolog coverage before meals. His FSGs were 181, 245, 122, 191 and 181. Plan: continue the current insulin regimen for now; monitor FSGs. will follow. Subjective Subjective: He is receiving HD at this moment. Objective Last 24 Hrs of Vital Signs/I&O Vital Signs Date Time Temp Pulse Resp B/P Pulse O2 O2 Flow FiO2 Ox Delivery Rate 08/17 0855 68 126/80 08/17 0754 98.1 84 20 120/62 94 Room Air 08/16 2347 98.4 74 18 128/72 94 Room Air 08/16 2127 70 136/60 08/16 1551 98.4 84 18 128/58 93 08/16 1306 Room Air Room Air Intake & Output 08/17 1600 08/17 0800 08/17 0000 Intake Total 587.2 687 Output Total 175 Balance 587.2 512 Intake, IV 187.2 187 Intake, Oral 400 500 Number 1 5 6 Bowel Movements Output, Urine 175 Patient 149 lb Weight Findings Pertinent Lab/Avtar Results: Laboratory Tests 08/17 08/17 08/16 1100 0625 2235 Chemistry Sodium (137 - 145 mmol/L) 141 Potassium (3.5 - 5.1 mmol/L) 3.9 Chloride (98 - 107 mmol/L) 108 H Carbon Dioxide (22 - 30 mmol/L) 24 Anion Gap (5 - 16) 10 BUN (9 - 20 mg/dL) 23 H Creatinine (0.7 - 1.2 mg/dL) 2.7 H Estimated GFR (>60 ml/min) 23 L BUN/Creatinine Ratio (7 - 25 %) 8.5 Phosphorus (2.5 - 4.5 mg/dL) 3.5 Magnesium (1.6 - 2.3 mg/dL) 1.5 L Coagulation PT (9.4 - 12.5 SEC) 11.5 INR (0.90 - 1.17) 1.10 APTT (25 - 37 SEC) 52 H 73 H Hematology CBC w Diff NO MAN DIFF REQ WBC (4.8 - 10.8 /CUMM) 6.1 RBC (4.70 - 6.10 /CUMM) 3.16 L Hgb (14.0 - 18.0 G/DL) 8.9 L Hct (42 - 52 %) 28.7 L MCV (80.0 - 94.0 FL) 90.6 MCH (27.0 - 31.0 PG) 28.2 RDW (11.5 - 14.5 %) 25.1 H Plt Count (130 - 400 /CUMM) 119 L MPV (7.4 - 10.4 FL) 8.1 Gran % (42.2 - 75.2 %) 71.9 Lymphocytes % (20.5 - 51.1 %) 15.0 L Monocytes % (1.7 - 9.3 %) 10.0 H Eosinophils % (0 - 5 %) 3.0 Basophils % (0.0 - 2.0 %) 0.1 Absolute Granulocytes (1.4 - 6.5 /CUMM) 4.4 Absolute Lymphocytes (1.2 - 3.4 /CUMM) 0.9 L Absolute Monocytes (0.10 - 0.60 /CUMM) 0.6 Absolute Eosinophils (0.0 - 0.7 /CUMM) 0.2 Absolute Basophils (0.0 - 0.2 /CUMM) 0 PUBS MCHC (33.0 - 37.0 G/DL) 31.1 L
[2016-08-17 19:48] LABS: PTT 106 SEC (25-37)
[2016-08-17 23:52] VITALS: BP 134/76
[2016-08-18 04:22] LABS: PTT 41 SEC (25-37)
[2016-08-18 07:35] VITALS: BP 142/68
--- NOTE | 2016-08-18 08:52 | PN- Housestaff ---
MAURISIO HEATH,HARMEET 08/18/16 0851: Subjective Follow-up For: ESRD s/p AV fistula placement Chronic ulcerations Supraglottic edema Subjective: Patient seen and examined at bedside this AM. Sleeping comfortably in bed. Patient is slightly drowsy but easily arousable and answers all the questions asked. Remains alert and oriented x 3. He endorses pain in the leg at about 7 out of 10 this morning. Otherwise he offers no complaints. Review of Systems Constitutional: Reports: see HPI. Objective Last 24 Hrs of Vital Signs/I&O Vital Signs Date Time Temp Pulse Resp B/P Pulse O2 O2 Flow FiO2 Ox Delivery Rate 08/18 0735 98.1 92 20 142/68 90 Room Air 08/17 2352 98.7 72 18 134/76 94 Room Air 08/17 2215 68 126/80 08/17 1600 94 Nasal 2.0L Cannula Intake & Output 08/18 1600 08/18 0800 08/18 0000 Intake Total 434 200 Output Total 2 Balance -2 434 200 Intake, IV 184 Intake, Oral 250 200 Number 1 3 4 Bowel Movements Output, Stool 2 Patient 63.673 kg 66.111 kg Weight Physical Exam General Appearance: Alert, Oriented X3, Cooperative, No Acute Distress Other Physical Findings: Skin: No Rashes, No Significant Lesion HEENT: Atraumatic, Mucous Membr. moist/pink Neck: Supple Cardiovascular: Normal S1, Normal S2 Lungs: Clear to Auscultation, Normal Air Movement Abdomen: Normal Bowel Sounds, Soft, No Tenderness, No Hepatospenomegaly, No Masses Neurological: Normal Speech, Normal Tone Extremities: LLE wrapped in kerlex as patient has chronic left lower leg ulceration requring daily dressing changes. Current Medications: Current Medications Sig/Kailash Start time Last Medication Dose Route Stop Time Status Admin Acetaminophen 650 MG Q6P PRN 08/13 1915 AC 08/14 PO 2123 Aspirin 81 MG DAILY 08/14 1000 AC 08/18 PO 0842 Atorvastatin Calcium 40 MG 1700 08/14 1700 AC 08/17 PO 1706 Carvedilol 25 MG BID 08/13 2200 AC 08/18 PO 0842 Collagenase 1 CHAITANYA DAILY 08/14 1000 AC 08/18 TOP 0843 Epoetin Ludwig 2,000 UNIT TUES THURS SAT PRN 08/17 1000 AC IV Epoetin Ludwig 3,000 UNIT TUES THURS SAT PRN 08/17 1000 AC IV Guaifenesin 600 MG Q12 08/13 2200 AC 08/18 PO 0842 Heparin Sodium 4,950 UNIT BOLUS ONE 08/18 0500 DC 08/18 (Porcine) IV 08/18 0501 0533 Heparin Sodium 25,000 UNIT Q24H 08/16 2330 AC 08/18 (Porcine) IV 1249 Sodium Chloride 500 ML Insulin Aspart 0 AC & AT BEDTIME 08/14 0800 AC 08/18 SC 1216 Insulin Detemir 5 UNITS DAILY 08/14 1000 AC 08/18 SC 0843 Morphine Sulfate 2 MG Q4P PRN 08/13 1930 AC IV Multivitamins 1 TAB DAILY 08/14 1000 AC 08/18 PO 0842 Omeprazole 40 MG DAILY AC 08/14 0700 AC 08/18 PO 0617 Oxycodone/ 2 TAB Q8P PRN 08/14 1115 AC 08/18 Acetaminophen PO 0842 Prednisone 5 MG DAILY 08/14 1000 AC 08/18 PO 0842 Sodium Chloride 2 SPRAY Q10MIN PRN 08/13 1915 AC CARLITOS Sodium Hypochlorite 1 CHAITANYA BID 08/13 2200 AC 08/18 TOP 0843 Vitamin A/Vitamin D 1 CHAITANYA BID 08/13 2200 AC 08/18 TOP 0843 Warfarin Sodium 2.5 MG COUMADIN 1700 ONE 08/17 1700 DC 08/17 PO 08/17 1701 1706 Zinc Oxide 1 CHAITANYA BID 08/13 2200 AC 08/18 TOP 0843 Last 24 Hrs of Lab/Avtar Results Last 24 Hrs of Labs/Mics: Laboratory Tests 08/18/16 1119: APTT 97 H 08/18/16 0355: PT 14.0 H, INR 1.34 H, APTT 41 H 08/17/16 1918: APTT 106 *H Assessment/Plan Assessment: Mr. Marvin is a pleasant 75 y/o M with PMHx of antiphospholipid antibody syndrome, diabetes and CKD who presented with SOB, hoarseness and stridor, found to be uremic with initiation of HD, s/p debridement of chronic left leg ulcer, s /p IV vancomycin for soft tissue infection, currently awaiting outpatient dialysis slot placement and placement on AV fistula followed by skin biopsy today in the OR. Fever of unknown origin: Fluconazole 400mg PO after every dialysis has been DISCONTINUED as per ID recommendations. Follow off antibiotics, reconsult ID if any further issues arise. No fever noted over the last [address] abdomen and chest has not revealed any source of infection. Will monitor WBC on dialysis days. Area of AV fistula clean without signs of infection. Biopsy sites also without signs of infection. Continue to monitor LLE wound as well as coccygeal wound and clean/dress as per wound care recommendations. Anemia : Etiology multifactorial. Per GI anemia likely secondary to other causes than GI. Will have patient follow-up with GI as an outpatient. We'll continue iron supplementation and Epogen. Monitor CBC on dialysis days. Chronic left lower extremity ulcer: Nonhealing ulcer on left lower extremity along with multiple other ulcers. Wound care following. Skin biopsy to rule out calciphylaxis shows NO EVIDENCE OF CALCIPHYLAXIS OR WARFARIN-INDUCED SKIN NECROSIS. Cont IV heparin while bridging with coumadin until INR therapeutic between 2-3. Antiphospholipid antibody syndrome: Chronic right upper extremity DVT. On life- long anti-coagulation with warfarin, takes 5 mg PO QD. * Continue bridging with coumadin, daily INR checks. * Give 2.5mg of Coumadin today (INR = 1.34) ESRD: Cr was 5 on admission, with gradual increase from 2-3 within the past year. Most likely etiology is progressive diabetic nephropathy. Mj cath was placed and urgent hemodialysis was initiated (06/26) with improvement of mental status. Patient is currently awaiting outpatient dialysis slot. * Nephrology following, continue to follow recs * Mj Cath in place, HD scheduled for , , Fri, patient will recieve dialysis today. * Continue sevelamer 800 mg PO TIDAC when phos >3.5. * Continue daily Nephrocaps * Sodium thiosulphate 25gm with HD 3 x a week. * AV fistula placed, awaiting maturity - Vascular surgeon Dr. Bryan was notified regarding questionable thrombosed AV fistula per nephro. He'll see the patient tomorrow T2DM: Uncontrolled blood sugars this admission, secondary to steroids. * Endocrinology following, appreciate input * Levemir 5U SQ DAILY * NSS to continue as presently ordered HTN: Takes amlodipine 10 mg PO QD, carvedilol 25 mg PO BID, furosemide 80 mg PO BID and hydralazine 50 mg PO BID at home. * Holding home amlodipine, furosemide and hydralazine. * Continue home carvedilol. Crohn's disease: Patient has been taking prednisone 10 mg PO QD for many years to prevent flares. * Prednisone 5 mg daily. If patient at any time gets hypotensive, given a stress dose of steroid followed by increasing dose of prednisone to 10 mg daily * The patient to remain on aspirin. * C. diff negative Diet: Renal dialysis DVT PPx: Heparin and warfarin CODE: DNR/DNI Problem List: 1. Pneumonia 2. Peripheral vascular disease 3. Type 2 diabetes mellitus 4. Chronic ulcer of left lower extremity Pain Ratin Pain Location: BLEs Pain Goal: Pain 4 or less Pain Plan: 2 tab percocet Q8P for mo Tomorrow's Labs & Rationales: INR to monitor. No other labs on non-dialysis days. YANDY HEATH,[facility] 08/18/16 1243: Attending MD Review Statement Attending Statement Attending MD Statement: examined this patient, discuss w/resident/PA/[employer], agreed w/resident/PA/[employer], discussed with family, reviewed EMR data (avail), discussed with nursing, discussed with case mgmt, reviewed images, amended to note Attending Assessment/Plan: Resting comfortably in bed . Does not offer any complaint .Currently on Coumadin, dose to target a therapeutic INR. Make sure vascular is been called for questionable thrombosed hemodialysis fistula.
[2016-08-18 12:02] LABS: PTT 97 SEC (25-37)
--- NOTE | 2016-08-18 12:22 | PN- Diabetes ---
Assessment/Plan Assessment: The patient has been moved to general medicine and the family does not wish aggressive treatment at this time. The patient had skin biopsies done and creation of a fistula in his right upper arm. The patient is on diabetic diet and his po intake has been improving. Currently he is on Levemir 5 units daily, Novolog coverage before meals. His FSGs were 181, 204, 166, 214 and 214. Plan: continue the current insulin regimen for now. monitor FSGs. will follow. Subjective Subjective: He feels well this morning. Objective Last 24 Hrs of Vital Signs/I&O Vital Signs Date Time Temp Pulse Resp B/P Pulse O2 O2 Flow FiO2 Ox Delivery Rate 08/18 0735 98.1 92 20 142/68 90 Room Air 08/17 2352 98.7 72 18 134/76 94 Room Air 08/17 2215 68 126/80 08/17 1600 94 Nasal 2.0L Cannula Intake & Output 08/18 1600 08/18 0800 08/18 0000 Intake Total 434 200 Output Total Balance 434 200 Intake, IV 184 Intake, Oral 250 200 Number 3 4 Bowel Movements Patient 140 lb 146 lb Weight Findings Pertinent Lab/Avtar Results: Laboratory Tests 08/18 08/18 08/17 1119 0355 1918 Coagulation PT (9.4 - 12.5 SEC) 14.0 H INR (0.90 - 1.17) 1.34 H APTT (25 - 37 SEC) 97 H 41 H 106 *H
[2016-08-18] MEDS ORDERED: COUMADIN2.5 M1 PO (14:30)
[2016-08-18 16:01] VITALS: BP 134/60
[2016-08-18 19:10] LABS: PTT 68 SEC (25-37)
[2016-08-18 20:48] VITALS: BP 130/56
[2016-08-18 22:24] VITALS: BP 138/68
--- NOTE | 2016-08-19 07:01 | PN- Housestaff ---
See Addendum Subjective Follow-up For: ESRD s/p AV fistula placement Chronic ulcerations Supraglottic edema Subjective: Patient seen and examined at bedside this AM. He is lethargic but able to express that he has a mild headache, non-radiating, rated a 3/10 on the pain scale. He offers no other complaints. Review of Systems Constitutional: Denies: chills, fever, malaise. EENTM: Denies: blurred vision, hearing changes. Cardiovascular: Denies: chest pain, palpitations. Respiratory: Denies: cough, short of breath. Gastrointestinal: Denies: abdominal pain, bloating. Genitourinary: Reports: no symptoms. Musculoskeletal: Reports: muscle pain (Bilateral lower extremities). Denies: back pain. Skin: Reports: lesions (Chronic leg ulcers). Neurological/Psychological: Reports: headache. Denies: confusion, numbness. Hematologic/Endocrine: Denies: polydipsia. Immunologic/Allergic: Denies: splenectomy. Objective Last 24 Hrs of Vital Signs/I&O Vital Signs Date Time Temp Pulse Resp B/P Pulse O2 O2 Flow FiO2 Ox Delivery Rate 08/19 08 98.6 94 20 123/80 92 Room Air 08/18 2224 98.6 90 19 138/68 92 Room Air 08/18 2048 91 130/56 92 Room Air 08/18 2046 91 130/56 08/18 1601 99.5 85 19 134/60 93 08/18 1600 93 Room Air Intake & Output 08/19 1600 08/19 0800 08/19 0000 Intake Total 120 685 Output Total Balance 120 685 Intake, IV 185 Intake, Oral 120 500 Number 2 2 5 Bowel Movements Patient 148 lb Weight Physical Exam General Appearance: Alert, Oriented X3, Cooperative Skin: Chronic left lower leg ulceration covered in kerlex. HEENT: Atraumatic, PERRLA, Mucous Membr. moist/pink Neck: Supple Cardiovascular: Normal S1, Normal S2 Lungs: Normal Air Movement Abdomen: Normal Bowel Sounds, Soft Neurological: Normal Speech Extremities: No Cyanosis Current Medications: Current Medications Sig/Kailash Start time Last Medication Dose Route Stop Time Status Admin Acetaminophen 650 MG Q6P PRN 08/13 1915 AC 08/14 PO 2123 Aspirin 81 MG DAILY 08/14 1000 AC 08/19 PO 0853 Atorvastatin Calcium 40 MG 1700 08/14 1700 AC 08/18 PO 1552 Carvedilol 25 MG BID 08/13 2200 AC 08/19 PO 0853 Collagenase 1 CHAITANYA DAILY 08/14 1000 AC 08/19 TOP 0938 Epoetin Ludwig 2,000 UNIT TUES THURS SAT PRN 08/17 1000 AC IV Epoetin Ludwig 3,000 UNIT TUES THURS SAT PRN 08/17 1000 AC IV Guaifenesin 600 MG Q12 08/13 2200 AC 08/19 PO 0853 Heparin Sodium 5,040 UNIT ONCE ONE 08/19 0930 DC 08/19 (Porcine) IV 08/19 0931 0918 Heparin Sodium 25,000 UNIT Q24H 08/16 2330 AC 08/19 (Porcine) IV 0915 Sodium Chloride 500 ML Insulin Aspart 0 AC & AT BEDTIME 08/14 0800 AC 08/19 SC 1200 Insulin Detemir 5 UNITS DAILY 08/14 1000 AC 08/19 SC 0852 Magnesium Oxide 400 MG BID 08/19 1120 AC 08/19 PO 08/19 220 1404 Magnesium Sulfate 1 GM Q2H 08/19 1100 DC Dextrose/Water 100 ML IV 08/19 1459 Morphine Sulfate 2 MG Q4P PRN 08/13 1930 AC IV Multivitamins 1 TAB DAILY 08/14 1000 AC 08/19 PO 0853 Omeprazole 40 MG DAILY AC 08/14 0700 AC 08/19 PO 0526 Oxycodone/ 2 TAB Q8P PRN 08/14 1115 AC 08/18 Acetaminophen PO 2047 Prednisone 5 MG DAILY 08/14 1000 AC 08/19 PO 0852 Sodium Chloride 2 SPRAY Q10MIN PRN 08/13 1915 AC CARLITOS Sodium Hypochlorite 1 CHAITANYA BID 08/13 2200 AC 08/19 TOP 0937 Vitamin A/Vitamin D 1 CHAITANYA BID 08/13 2200 AC 08/19 TOP 0853 Warfarin Sodium 5 MG COUMADIN 1700 ONE 08/19 1700 AC PO 08/19 1701 Warfarin Sodium 2.5 MG COUMADIN 1700 ONE 08/18 1700 DC 08/18 PO 08/18 1701 1553 Zinc Oxide 1 CHAITANYA BID 08/13 2200 AC 08/19 TOP 0854 Last 24 Hrs of Lab/Avtar Results Last 24 Hrs of Labs/Mics: Laboratory Tests 08/19/16 0804: Troponin I < 0.01, PT 15.9 H, INR 1.52 H, APTT 37 08/19/16 0600: PT Cancelled, INR Cancelled 08/18/16 1815: APTT 68 H Assessment/Plan Assessment: Mr. Marvin is a pleasant 75 y/o M with PMHx of antiphospholipid antibody syndrome, diabetes and CKD who presented with SOB, hoarseness and stridor, found to be uremic with initiation of HD, s/p debridement of chronic left leg ulcer, s /p IV vancomycin for soft tissue infection, currently awaiting outpatient dialysis slot placement and placement on AV fistula followed by skin biopsy today in the OR. Fever of unknown origin: Fluconazole 400mg PO after every dialysis has been DISCONTINUED as per ID recommendations. Follow off antibiotics, reconsult ID if any further issues arise. No fever noted over the last [address] abdomen and chest has not revealed any source of infection. Will monitor WBC on dialysis days. Area of AV fistula clean without signs of infection. Biopsy sites also without signs of infection. Continue to monitor LLE wound as well as coccygeal wound and clean/dress as per wound care recommendations. Anemia : Etiology multifactorial. Per GI anemia likely secondary to other causes than GI. Will have patient follow-up with GI as an outpatient. We'll continue iron supplementation and Epogen. Monitor CBC on dialysis days and heparin therapy. Substernal chest pressure: Patient endorsing 5/10 substernal, non-radiating chest pain today. 1st troponin ordered negative at <0.01. EKG shows erratic baseline with wide QRS. EKG reviewed with resident and attending and will repeat troponin at this time. Consideration for repeat EKG later today. Chronic left lower extremity ulcer: Nonhealing ulcer on left lower extremity along with multiple other ulcers. Wound care following. Skin biopsy to rule out calciphylaxis shows NO EVIDENCE OF CALCIPHYLAXIS OR WARFARIN-INDUCED SKIN NECROSIS. Cont IV heparin while bridging with coumadin until INR therapeutic between 2-3. INR today at 1.52. Will dose 5 mg PO warfarin and recheck INR in AM. Antiphospholipid antibody syndrome: * Chronic right upper extremity DVT. On life-long anti-coagulation with warfarin , takes 5 mg PO QD. * Continue bridging with coumadin, daily INR checks. * Give 5mg of Coumadin today (INR = 1.52) ESRD: Cr was 5 on admission, with gradual increase from 2-3 within the past year. Most likely etiology is progressive diabetic nephropathy. Mj cath was placed and urgent hemodialysis was initiated (06/26) with improvement of mental status. Patient is currently awaiting outpatient dialysis slot. * Nephrology following, continue to follow recs * Mj Cath in place, HD scheduled for , , Fri, patient will recieve dialysis tomorrow. * Continue sevelamer 800 mg PO TIDAC when phos >3.5. * Continue daily Nephrocaps * Sodium thiosulphate 25gm with HD 3 x a week. * AV fistula placed, awaiting maturity - Vascular surgeon Dr. Bryan was notified regarding questionable thrombosed AV fistula per nephro. He suggests obtaining right arm venous mapping which has been ordered for today. T2DM: Uncontrolled blood sugars this admission, secondary to steroids. * Endocrinology following, appreciate input * Levemir 5U SQ DAILY * NSS to continue as presently ordered HTN: Takes amlodipine 10 mg PO QD, carvedilol 25 mg PO BID, furosemide 80 mg PO BID and hydralazine 50 mg PO BID at home. * Holding home amlodipine, furosemide and hydralazine. * Continue home carvedilol. Crohn's disease: Patient has been taking prednisone 10 mg PO QD for many years to prevent flares. * Prednisone 5 mg daily. If patient at any time gets hypotensive, given a stress dose of steroid followed by increasing dose of prednisone to 10 mg daily * The patient to remain on aspirin. * C. diff negative Diet: Renal dialysis DVT PPx: Heparin and warfarin CODE: DNR/DNI Problem List: 1. Pneumonia 2. Peripheral vascular disease 3. Bilateral vocal cord paralysis 4. Type 2 diabetes mellitus 5. Chronic ulcer of left lower extremity 6. Antiphospholipid antibody syndrome 7. Elevated troponin 8. Supraglottic edema 9. End stage renal disease Pain Ratin Pain Location: Headache Pain Goal: Pain 4 or less Pain Plan: 2 tab percocet Q8P. Tomorrow's Labs & Rationales: CBC (on heparin drip, monitor platelets), BEP (pre-dialysis renal function/ electrolytes), mag (hypomagnesemis today), phos (monitor, once level >3.5 rest
--- NOTE | 2016-08-19 08:01 | NUR ---
NURSING NOTE: [facility] CATH INTACT; LAST DSG CHANGED 08/09/16. [employer] CALLED AND MADE AWARE AND TO COME CHANGE TODAY. EKG DONE BY [facility]; [employer] [employer] CALLED AND MADE AWARE, TO DRAW TROPONIN AND 0745AM PTT FOR HEP GTT. CONT TO MONITOR. PT AWAKE, A/FORGETFUL, DENIES CHEST PAIN AT THIS TIME
--- NOTE | 2016-08-19 08:04 | PN- Diabetes ---
Assessment/Plan Assessment: The patient has been moved to general medicine and the family does not wish aggressive treatment at this time. The patient had skin biopsies done and creation of a fistula in his right upper arm. The patient is on diabetic diet and his po intake has been improving. Currently he is on Levemir 5 units daily, Novolog coverage before meals. His FSGs were 181, 204, 166, 214 and 214. Plan: 120/70 Subjective Subjective: 120/70 Objective Last 24 Hrs of Vital Signs/I&O 120/70 Physical Exam General Appearance: lethargic Head: normal appearance Neck: normal inspection Respiratory: rhonchi Cardiovascular: regular rate/rhythm Abdomen: normal bowel sounds, soft Extremities: normal inspection (left leg bandaged)
--- NOTE | 2016-08-19 08:07 | PN- Diabetes ---
Assessment/Plan Assessment: The patient has been moved to general medicine and the family does not wish aggressive treatment at this time. The patient had skin biopsies done and creation of a fistula in his right upper arm. The patient is on diabetic diet and his po intake has been improving. Currently he is on Levemir 5 units daily, Novolog coverage before meals. His FSGs were yesterday to 14 before breakfast, 156 before lunch, 118 before dinner, and 142 at bedtime. There was a question of the patient having chest pain this morning but he presently denies chest pain. Plan: Suggest continue the present insulin regimen. Await the biopsy results from the skin which were apparently sent out to [facility]. Subjective Subjective: Feels okay Review of Systems Cardiovascular: Denies: chest pain. Respiratory: Denies: short of breath. Gastrointestinal: Denies: nausea, vomiting. Objective Last 24 Hrs of Vital Signs/I&O Vital Signs Date Time Temp Pulse Resp B/P Pulse O2 O2 Flow FiO2 Ox Delivery Rate 08/18 2223 98.6 90 19 138/68 92 Room Air 08/18 2047 91 130/56 92 Room Air 08/18 2045 91 130/56 08/18 1601 99.5 85 19 134/60 93 08/18 1600 93 Room Air Intake & Output 08/19 1600 08/19 0800 08/19 0000 Intake Total 120 685 Output Total Balance 120 685 Intake, IV 185 Intake, Oral 120 500 Number 2 5 Bowel Movements Patient 148 lb Weight Vital Signs Date Time Temp Pulse Resp B/P Pulse O2 O2 Flow FiO2 Ox Delivery Rate 08/18 2223 98.6 90 19 138/68 92 Room Air 08/18 2047 91 130/56 92 Room Air 08/18 2045 91 130/56 08/18 1601 99.5 85 19 134/60 93 08/18 1600 93 Room Air Intake & Output 08/19 1600 08/19 0800 08/19 0000 Intake Total 120 685 Output Total Balance 120 685 Intake, IV 185 Intake, Oral 120 500 Number 2 5 Bowel Movements Patient 148 lb Weight Physical Exam General Appearance: alert, awake Head: normal appearance Neck: normal inspection Respiratory: normal breath sounds Cardiovascular: regular rate/rhythm Abdomen: normal bowel sounds Extremities: normal inspection Current Medications: Current Medications Sig/Kailash Start time Last Medication Dose Route Stop Time Status Admin Acetaminophen 650 MG Q6P PRN 08/13 1914 AC 08/14 PO 2123 Aspirin 81 MG DAILY 08/14 1000 AC 08/18 PO 0842 Atorvastatin Calcium 40 MG 1700 08/14 1700 AC 08/18 PO 1552 Carvedilol 25 MG BID 08/13 2200 AC 08/18 PO 2046 Collagenase 1 CHAITANYA DAILY 08/14 1000 AC 08/18 TOP 0843 Epoetin Ludwig 2,000 UNIT TUES THURS SAT PRN 08/17 1000 AC IV Epoetin Ludwig 3,000 UNIT TUES THURS SAT PRN 08/17 1000 AC IV Guaifenesin 600 MG Q12 08/13 2200 AC 08/18 PO 2046 Heparin Sodium 25,000 UNIT Q24H 08/16 2330 AC 08/18 (Porcine) IV 1249 Sodium Chloride 500 ML Insulin Aspart 0 AC & AT BEDTIME 08/14 0800 AC 08/18 SC 1642 Insulin Detemir 5 UNITS DAILY 08/14 1000 AC 08/18 SC 0843 Morphine Sulfate 2 MG Q4P PRN 08/13 1930 AC IV Multivitamins 1 TAB DAILY 08/14 1000 AC 08/18 PO 0842 Omeprazole 40 MG DAILY AC 08/14 0700 AC 08/19 PO 0526 Oxycodone/ 2 TAB Q8P PRN 08/14 1115 AC 08/18 Acetaminophen PO 2047 Prednisone 5 MG DAILY 08/14 1000 AC 08/18 PO 0842 Sodium Chloride 2 SPRAY Q10MIN PRN 08/13 1915 AC CARLITOS Sodium Hypochlorite 1 CHAITANYA BID 08/13 2200 AC 08/18 TOP 202 Vitamin A/Vitamin D 1 CHAITANYA BID 08/13 2200 AC 08/18 TOP 2023 Warfarin Sodium 2.5 MG COUMADIN 1700 ONE 08/18 1700 DC 08/18 PO 08/18 1701 1553 Zinc Oxide 1 CHAITANYA BID 08/13 2200 AC 08/18 TOP 2023 Findings Pertinent Lab/Avtar Results: Laboratory Tests 08/18 08/18 1815 1119 Coagulation APTT (25 - 37 SEC) 68 H 97 H
[2016-08-19 08:26] VITALS: BP 123/80
[2016-08-19 08:59] LABS: PTT 37 SEC (25-37)
[2016-08-19 09:24] LABS: PT 15.9 SEC (9.4-12.5)
--- NOTE | 2016-08-19 16:11 | NUR ---
NURSING NOTE; PT DOWN TO ULTRASOUND FOR VENOUS MAPPING AT THIS TIME VIA STRETCHER. PT HAS NO COMPLAINTS AT THIS TIME. HEPARIN GTT RUNNING PER ORDERS. WILL CONTINUE TO MONITOR.
[2016-08-19 16:19] VITALS: BP 138/66
[2016-08-19 18:38] LABS: PTT > 120 SEC (25-37)
--- NOTE | 2016-08-19 18:44 | NUR ---
NSG NOTE: PTT >120; HEPARIN GTT STOPPED FOR 60 MIN PER HEPARIN GTT PROTOCOL; NEXT PTT 08/20/16 AT 0045; WILL CONT TO MONITOR
--- NOTE | 2016-08-19 20:05 | NUR ---
NURSING NOTE; HEPARIN GTT DECREASED 2U/KG/HR PER HEPARIN GTT PROTOCOL. CURRENT HEPARIN GTT RATE IS 25.8 ML/HR. NEXT PTT DUE 08/20/16 AT 0045AM PER HEPARIN GTT PROTOCOL. WILL CONTINUE TO MONITOR.
[2016-08-20 00:41] VITALS: BP 150/60
[2016-08-20 02:13] LABS: PTT 39 SEC (25-37)
--- NOTE | 2016-08-20 03:57 | NUR ---
NURSING NOTE: LAT ENTRY. PTT CAME BACK AT 39. PER PROTOCOL HEPARIN GTT WAS INCREASED TO 31.2 ML/HR AND A BOLUS OF 5040 WAS GIVEN. NEXT PTT DUE AT 0900. WILL CONTINUE TO MONITOR.
--- NOTE | 2016-08-20 06:56 | PN- Housestaff ---
See Addendum Subjective Follow-up For: ESRD s/p AV fistula placement Chronic ulcerations Supraglottic edema Subjective: Patient seen and examined at bedside this AM. He reports mild pain of bilateral lower extremities, otherwise he feels well. He denies fever, chills, chest pain, shortness of breath, or decreased PO intake. Review of Systems Constitutional: Denies: chills, fever, malaise. EENTM: Denies: blurred vision, visual changes, hearing changes, throat pain. Cardiovascular: Denies: chest pain, palpitations. Respiratory: Denies: cough, short of breath. Gastrointestinal: Denies: abdominal pain, bloating, constipation, diarrhea. Genitourinary: Reports: no symptoms. Musculoskeletal: Reports: muscle pain (Bilateral lower extremities). Skin: Denies: change in skin color, change in hair/nails. Neurological/Psychological: Denies: confusion, headache, numbness. Hematologic/Endocrine: Denies: bruising, bleeding. Objective Last 24 Hrs of Vital Signs/I&O Vital Signs Date Time Temp Pulse Resp B/P Pulse O2 O2 Flow FiO2 Ox Delivery Rate 08/20 0913 84 152/58 08/20 0853 98.0 84 20 152/58 91 08/20 0041 98.4 88 20 150/60 90 Room Air 08/19 2214 88 150/70 08/19 1619 97.7 88 20 138/66 90 Intake & Output 08/20 1600 08/20 0800 08/20 0000 Intake Total 207.6 500 Output Total Balance 207.6 500 Intake, IV 207.6 Intake, Oral 500 Number 1 6 Bowel Movements Patient 146 lb Weight Physical Exam General Appearance: Alert, Oriented X3, Cooperative, No Acute Distress Skin: Persistent eschars noted. LLE chronic leg wound examined and showed erythematous and moist wound. Wound care contacted for further suggestions. HEENT: Atraumatic, Mucous Membr. moist/pink Lymphatic: Cervical nl Cardiovascular: Regular Rate, Normal S1, Normal S2 Lungs: Normal Air Movement Abdomen: Normal Bowel Sounds, Soft, No Tenderness Neurological: Normal Speech, Normal Tone Extremities: No Edema Current Medications: Current Medications Sig/Kailash Start time Last Medication Dose Route Stop Time Status Admin Acetaminophen 650 MG Q6P PRN 08/13 1915 AC 08/14 PO 2123 Aspirin 81 MG DAILY 01/18 1000 AC 08/20 PO 0913 Atorvastatin Calcium 40 MG 1700 08/14 1700 AC 08/19 PO 1748 Carvedilol 25 MG BID 08/13 2200 AC 08/20 PO 0913 Collagenase 1 CHAITANYA DAILY 08/14 1000 AC 08/19 TOP 0938 Epoetin Ludwig 2,000 UNIT TUES THURS SAT PRN 08/17 1000 AC IV Epoetin Ludwig 3,000 UNIT TUES THURS SAT PRN 08/17 1000 AC IV Guaifenesin 600 MG Q12 08/13 2200 AC 08/20 PO 0913 Heparin Sodium 5,040 UNIT BOLUS ONE 08/20 0300 DC 08/20 (Porcine) IV 08/20 0301 0300 Heparin Sodium 5,000 UNIT .STK-MED ONE 08/20 0300 DC (Porcine) IV 08/20 0301 Heparin Sodium 5,000 UNIT .STK-MED ONE 08/20 0253 DC (Porcine) IV 08/20 0254 Heparin Sodium 25,000 UNIT Q24H 08/16 2330 AC 08/20 (Porcine) IV 0351 Sodium Chloride 500 ML Insulin Aspart 0 AC & AT BEDTIME 08/14 0800 AC 08/20 SC 0914 Insulin Detemir 5 UNITS DAILY 08/14 1000 AC 08/20 SC 0914 Magnesium Oxide 400 MG BID 08/19 1120 DC 08/19 PO 08/19 2201 2214 Morphine Sulfate 2 MG Q4P PRN 08/13 1930 AC IV Multivitamins 1 TAB DAILY 08/14 1000 AC 08/20 PO 0913 Omeprazole 40 MG DAILY AC 08/14 0700 AC 08/20 PO 0558 Oxycodone/ 2 TAB Q8P PRN 08/14 1115 AC 08/18 Acetaminophen PO 2047 Prednisone 5 MG DAILY 08/14 1000 AC 08/20 PO 0913 Sodium Chloride 2 SPRAY Q10MIN PRN 08/13 1915 AC CARLITOS Sodium Hypochlorite 1 CHAITANYA BID 08/13 2200 AC 08/19 TOP 2212 Vitamin A/Vitamin D 1 CHAITANYA BID 08/13 2200 AC 08/20 TOP 0914 Warfarin Sodium 5 MG COUMADIN 1700 ONE 08/20 1700 AC PO 08/20 1701 Warfarin Sodium 5 MG COUMADIN 1700 ONE 08/19 1700 DC 08/19 PO 08/19 1701 1748 Zinc Oxide 1 CHAITANYA BID 08/13 2200 AC 08/20 TOP 0914 Last 24 Hrs of Lab/[facility] Results Last 24 Hrs of Labs/Mics: Laboratory Tests 08/20/16 0915: Anion Gap 10, Estimated GFR 22 L, BUN/Creatinine Ratio 8.6, Phosphorus 4.1, Magnesium 1.3 L, APTT > 120 *H, CBC w Diff NO MAN DIFF REQ, RBC 3.32 L, MCV 90.4, MCH 28.0, RDW 23.8 H, MPV 9.1, Gran % 57.2, Lymphocytes % 23.7, Monocytes % 13.4 H, Eosinophils % 5.1 H, Basophils % 0.6, Absolute Granulocytes 3.0, Absolute Lymphocytes 1.2, Absolute Monocytes 0.7 H, Absolute Eosinophils 0.3, Absolute Basophils 0, PUBS MCHC 31.0 L 08/20/16 0354: APTT Cancelled 08/20/16 0150: PT 17.2 H, INR 1.65 H, APTT 39 H 08/19/16 1515: APTT > 120 *H 08/19/16 1445: Troponin I < 0.01 Assessment/Plan Assessment: Mr. Marvin is a pleasant 75 y/o M with PMHx of antiphospholipid antibody syndrome, diabetes and CKD who presented with SOB, hoarseness and stridor, found to be uremic with initiation of HD, s/p debridement of chronic left leg ulcer, s /p IV vancomycin for soft tissue infection and s/p AV fistula placement for ESRD. Fever of unknown origin: Follow off antibiotics, reconsult ID if any further issues arise. CT abdomen and chest has not revealed any source of infection. Will monitor WBC on dialysis days. Area of AV fistula clean without signs of infection. Biopsy sites also without signs of infection. Continue to monitor LLE wound as well as coccygeal wound and clean/dress as per wound care recommendations. Anemia : Etiology multifactorial. Per GI anemia likely secondary to other causes than GI. Will have patient follow-up with GI as an outpatient. We'll continue iron supplementation and Epogen. Monitor CBC on dialysis days and heparin therapy. Substernal chest pressure: Patient endorseding 5/10 substernal, non-radiating chest pain on 08/19/16. Troponin ordered negative at <0.01 x2. EKG shows erratic baseline with wide QRS, no significant change from previous. EKG reviewed with resident and attending. Patient to follow up with cardiology once discharged for continued care. Chronic left lower extremity ulcer: Nonhealing ulcer on left lower extremity along with multiple other ulcers. Wound care following. Skin biopsy to rule out calciphylaxis shows NO EVIDENCE OF CALCIPHYLAXIS OR WARFARIN-INDUCED SKIN NECROSIS. Cont IV heparin while bridging with coumadin until INR therapeutic between 2-3. INR for today is pending. Will dose 5 mg PO warfarin and recheck INR in AM. Antiphospholipid antibody syndrome: * Chronic right upper extremity DVT. On life-long anti-coagulation with warfarin , takes 5 mg PO QD. * Continue bridging with coumadin, daily INR checks. * Give 5mg of Coumadin today. ESRD: Cr was 5 on admission, with gradual increase from 2-3 within the past year. Most likely etiology is progressive diabetic nephropathy. Mj cath was placed and urgent hemodialysis was initiated (06/26) with improvement of mental status. Patient is currently awaiting outpatient dialysis slot. * Nephrology following, continue to follow recs * Mj Cath in place, HD scheduled for Fri, patient will recieve dialysis today. * Continue sevelamer 800 mg PO TIDAC as phos was >3.5 today. * Patient hypomagnesemic today, repleted with 2 doses mag ox, f/u repeat mag level tomorrow. * Continue daily Nephrocaps * Sodium thiosulphate 25gm with HD 3 x a week. * AV fistula placed, awaiting maturity - Vascular surgeon Dr. Bryan was notified regarding questionable thrombosed AV fistula per nephro. He suggests obtaining right arm venous mapping which has been ordered, f/u results. T2DM: Uncontrolled blood sugars this admission, secondary to steroids. * Endocrinology following, appreciate input * Levemir 5U SQ DAILY * NSS to continue as presently ordered HTN: Takes amlodipine 10 mg PO QD, carvedilol 25 mg PO BID, furosemide 80 mg PO BID and hydralazine 50 mg PO BID at home. * Holding home amlodipine, furosemide and hydralazine. * Continue home carvedilol. Crohn's disease: Patient has been taking prednisone 10 mg PO QD for many years to prevent flares. * Prednisone 5 mg daily. If patient at any time gets hypotensive, given a stress dose of steroid followed by increasing dose of prednisone to 10 mg daily * The patient to remain on aspirin. * C. diff negative Diet: Renal dialysis DVT PPx: Heparin and warfarin CODE: DNR/DNI Problem List: 1. Chest pain 2. Peripheral vascular disease 3. Bilateral vocal cord paralysis 4. Type 2 diabetes mellitus 5. Chronic ulcer of left lower extremity 6. Antiphospholipid antibody syndrome 7. Supraglottic edema 8. End stage renal disease 9. NSTEMI (non-ST elevated myocardial infarction) Pain Ratin Pain Location: BIlateral lower extremities Pain Goal: Pain 4 or less Pain Plan: Mild pain pathway Tomorrow's Labs & Rationales: Phos (restarted renvela today) and magnesium (Patient hypomagnesemic today)
[2016-08-20 08:53] VITALS: BP 152/58
[2016-08-20 09:47] LABS: PT 17.2 SEC (9.4-12.5)
[2016-08-20 11:08] LABS: ABSOLUTE BASOPHIL COUNT 0 /CUMM (0.0-0.2); ABSOLUTE EOSINOPHIL COUNT 0.3 /CUMM (0.0-0.7); ABSOLUTE LYMPH COUNT 1.2 /CUMM (1.2-3.4); ABSOLUTE MONOCYTE COUNT 0.7 /CUMM (0.10-0.60); BASOPHIL % 0.6 % (0.0-2.0); EOSINOPHIL % 5.1 % (0-5); GRANULOCYTE % 57.2 % (42.2-75.2); MEAN CORPUSCULAR VOLUME 90.4 FL (80.0-94.0); MEAN PLATELET VOLUME 9.1 FL (7.4-10.4); PLATELET COUNT 162 /CUMM (130-400); PTT > 120 SEC (25-37); RBC DISTRIBUTION WIDTH 23.8 % (11.5-14.5); RED BLOOD CELL CT 3.32 /CUMM (4.70-6.10); WHITE BLOOD CELL COUNT 5.2 /CUMM (4.8-10.8)
--- NOTE | 2016-08-20 13:00 | NUR ---
CALL RECIEVED FROM [facility] IN DIALYSIS; PER ARIS "WHEN I RECIEVED THE PATIENT HIS PRESSURE WAS IN THE 70'S. I BOLUSED HIM AND HE IS NOW IN THE 110'S"; BP THIS MORNING WAS 152/58 AND PATIENT DID RECIEVE ALL MORNING MEDS (SEE EMAR); DR Ladi GONSALES NOTIFIED AND AWARE; AWAITING REPORT AND UPDATE FROM DIALYSIS;
--- NOTE | 2016-08-20 13:13 | NUR ---
wound care: reqeusted by md to evaluate pt for skin alterations poa to left leg and coccyx - coccyx healing well since clinitron mattress - healing unstageable pressure injury presents clinically as stage 2 clean pink dermal fill 2.5 x 2.3 cm no depth noted - no evidence of infection noted - left lateral leg full thickness wound persists, although increased viable tissue noted throughout - nonadherent black leathery eschar easily removed wtih cleansing - exposed tendon persists to medial aspect of wound base - 31 x 13 cm 25% necrotic dry fill, 75% moist pink tissue throughout - mod serosang drng - periwound unremarkable - less c/o pain since prior assessment - at bedside offered update - dr iqbal in yesterday to eval recommednation: dc santyl to coccyx due to absence of slough - cleanse coccyx with ns fb hydrocolloid dressing q 3 days and prn - cont with offloading - cont current wound care to right lateral leg as per vascular mds recommendation
[2016-08-20 13:28] LABS: PT 20.5 SEC (9.4-12.5)
--- NOTE | 2016-08-20 14:25 | ULTRASOUND REPORT ---
EXAMINATION: DUPLEX VENOUS ULTRASOUND OF THE RIGHT UPPER EXTREMITY. CLINICAL HISTORY: Right upper extremity pain. Vein mapping. Clinical suspicion for AV fistula thrombosis. COMPARISON: 08/08/2016 TECHNIQUE: Grayscale, color and Doppler ultrasound of the deep and superficial veins of the right upper extremity were performed. FINDINGS: Limited evaluation due to suture material overlying the fistula and patient's inability to properly position. The right internal jugular, subclavian, brachial and axillary veins demonstrate normal color Doppler flow suggesting patency. The right basilic vein was not visualized as it was used for creation of an AV fistula. Cephalic vein: Nonocclusive clot is seen scattered within the territory of the cephalic vein in the lower portion as well as at the level of the proximal forearm. Proximal at shoulder: 0.2 cm Proximal upper arm: 0.2 cm, depth 0.7 cm Mid upper arm: 0.2 cm, depth 0.2 cm Distal upper arm: 0.3 cm, depth 0.3 cm Proximal lower arm: 0.2 cm, depth 0.8 cm Mid lower arm: 0.1 cm, depth 0.6 cm At the wrist: 0.1 cm, depth 0.2 cm The distal brachial artery is patent with normal triphasic flow. At the level of the fistula, the arterial inflow is biphasic without diastolic flow. There is a fluid collection adjacent to the fistula measuring proximally 5.5 x 3.0 cm with imaging appearance consistent with a hematoma. This limits evaluation of the deeper portions of the fistula. The venous outflow is not clearly identified. The radial artery is patent with biphasic flow with peak systolic velocity of 62.1 cm/s. The ulnar artery is not identified due to limited positioning. IMPRESSION: 1. Vein mapping measurements as described above of the cephalic vein. The basilic vein has been mobilized for usage in the AV fistula. 2. Nonocclusive thrombus is seen within the cephalic vein in the distal portion as well as at the level of the proximal forearm. 3. Patent brachial artery which enters into the fistula. Prior to entering the fistula, there is triphasic flow, however at the level of the fistula the flow becomes biphasic without diastolic flow, suggestive of fistula thrombosis. The venous aspect of the fistula was not definitely identified and visualization was limited due to a large complex fluid collection immediately adjacent to the fistula, most likely a hematoma measuring 5.5 x 3.0 cm. There are also sutures in place which limited visualization of the fistula subjacent to the sutures. 4. The ulnar artery was not able to be identified due to limited patient positioning.
--- NOTE | 2016-08-20 15:35 | PN- Nephrology ---
Assessment/Plan Assessment: 1. ESRD secondary to diabetic nephropathy; status post right upper arm AVF creation which has clotted 2. Skin lesions - bx apparently negative for calciphylaxis; final report pending 3. Diabetes mellitus with peripheral vascular disease status post right TMA, status post debridement left leg/ankle ulcer 4. Anemia - on Epogen and IV iron 5. Antiphospholipid antibody syndrome status post DVT Suggestion: 1. Can discontinue IV sodium thiosulfate 2. Hemodialysis today and progress with minimal ultrafiltration as his blood pressure is fragile 3. At this point, can consider transfer to [facility] tomorrow; he has an outpatient dialysis seat at [facility] for 08/22 at 2:30 PM 4. I will look into options for vascular access creation as an outpatient; will discuss with Dr. Bryan Subjective Subjective: Patient seen with dialysis. Recurrent hypotension precludes any significant ultrafiltration. He remains quite weak with persistent lower extremity pain although he does not seem to be uncomfortable at this time. His right upper arm AVF is clotted. Objective Vital Signs and I&Os Vital Signs Date Time Temp Pulse Resp B/P Pulse O2 O2 Flow FiO2 Ox Delivery Rate 08/20 0913 84 152/58 08/20 0853 98.0 84 20 152/58 91 08/20 0041 98.4 88 20 150/60 90 Room Air 08/19 2214 88 150/70 08/19 1619 97.7 88 20 138/66 90 Intake & Output 08/20 1600 08/20 0400 08/19 1600 08/19 0400 08/18 1600 08/18 0400 Intake Total 692.0 500 1142.6 685 914 200 Output Total 2 Balance 692.0 500 1142.6 685 912 200 Intake, IV 452.0 222.6 185 184 Intake, Oral 240 500 920 500 730 200 Number 2 6 4 5 5 5 Bowel Movements Output, Stool 2 Patient 146 lb 148 lb 140 lb 146 lb Weight Physical Exam: General: Well-developed white male in NAD Skin: No rash or jaundice; mottled, necrotic, tender areas noted on right lateral leg and medial aspect of left thigh HEENT: Conjunctivae pale, sclerae anicteric, mucous membranes moist Neck: Without masses or thyromegaly, no supraclavicular or cervical adenopathy; there is a right IJ tunneled dialysis catheter in place Chest: Clear anterolaterally Heart: Regular rate and rhythm without S3 or rub Abdomen: Soft and nontender without palpable masses or organomegaly Extremities: Lower extremity dressing intact; the right upper arm AVF is without pulse, thrill or bruit Neuro: Awake, alert, no asterixis or myoclonus Current Medications: Current Medications Sig/Kailash Start time Last Medication Dose Route Stop Time Status Admin Acetaminophen 650 MG Q6P PRN 08/13 1915 AC 08/14 PO 2123 Aspirin 81 MG DAILY 08/14 1000 AC 08/20 PO 0913 Atorvastatin Calcium 40 MG 1700 08/14 1700 AC 08/19 PO 1748 Carvedilol 25 MG BID 08/13 2200 AC 08/20 PO 0913 Collagenase 1 CHAITANYA DAILY 08/14 1000 AC 08/19 TOP 0938 Epoetin Ludwig 2,000 UNIT TUES THURS SAT PRN 08/17 1000 AC IV Epoetin Ludwig 3,000 UNIT TUES THURS SAT PRN 08/17 1000 AC IV Guaifenesin 600 MG Q12 08/13 2200 AC 08/20 PO 0913 Heparin Sodium 5,040 UNIT BOLUS ONE 08/20 0300 DC 08/20 (Porcine) IV 08/20 0301 0300 Heparin Sodium 5,000 UNIT .STK-MED ONE 08/20 0300 DC (Porcine) IV 08/20 0301 Heparin Sodium 5,000 UNIT .STK-MED ONE 08/20 0253 DC (Porcine) IV 08/20 0254 Heparin Sodium 25,000 UNIT Q24H 08/16 2330 AC 08/20 (Porcine) IV 1202 Sodium Chloride 500 ML Insulin Aspart 0 AC & AT BEDTIME 08/14 0800 AC 08/20 SC 1213 Insulin Detemir 5 UNITS DAILY 08/14 1000 AC 08/20 SC 0914 Magnesium Oxide 400 MG 1600,2200 08/20 1600 AC PO 08/20 2201 Magnesium Oxide 400 MG BID 08/20 1140 CAN PO 08/20 220 Magnesium Oxide 400 MG BID 08/19 1120 DC 08/19 PO 08/19 220 2214 Morphine Sulfate 2 MG Q4P PRN 08/13 1930 AC IV Multivitamins 1 TAB DAILY 08/14 1000 AC 08/20 PO 0913 Omeprazole 40 MG DAILY AC 08/14 0700 AC 08/20 PO 0558 Oxycodone/ 2 TAB Q8P PRN 08/14 1115 AC 08/18 Acetaminophen PO 2047 Prednisone 5 MG DAILY 08/14 1000 AC 08/20 PO 0913 Sevelamer Carbonate 800 MG WM 08/20 1200 AC PO Sodium Chloride 2 SPRAY Q10MIN PRN 08/13 1915 AC CARLITOS Sodium Hypochlorite 1 CHAITANYA BID 08/13 2200 AC 08/20 TOP 1201 Vitamin A/Vitamin D 1 CHAITANYA BID 08/13 2200 AC 08/20 TOP 0914 Warfarin Sodium 5 MG COUMADIN 1700 ONE 08/20 1700 AC PO 08/20 1701 Warfarin Sodium 5 MG COUMADIN 1700 ONE 08/19 1700 DC 08/19 PO 08/19 1701 1748 Zinc Oxide 1 CHAITANYA BID 08/13 2200 AC 08/20 TOP 0914 Results Pertinent Lab Results: Laboratory Tests 08/20 08/20 08/20 0915 0354 0150 Chemistry Sodium (137 - 145 mmol/L) 138 Potassium (3.5 - 5.1 mmol/L) 4.1 Chloride (98 - 107 mmol/L) 104 Carbon Dioxide (22 - 30 mmol/L) 24 Anion Gap (5 - 16) 10 BUN (9 - 20 mg/dL) 24 H Creatinine (0.7 - 1.2 mg/dL) 2.8 H Estimated GFR (>60 ml/min) 22 L BUN/Creatinine Ratio (7 - 25 %) 8.6 Phosphorus (2.5 - 4.5 mg/dL) 4.1 Magnesium (1.6 - 2.3 mg/dL) 1.3 L Coagulation PT (9.4 - 12.5 SEC) 20.5 H 17.2 H INR (0.90 - 1.17) 1.97 H 1.65 H APTT (25 - 37 SEC) > 120 *H Cancelled 39 H Hematology CBC w Diff NO MAN DIFF REQ WBC (4.8 - 10.8 /CUMM) 5.2 RBC (4.70 - 6.10 /CUMM) 3.32 L Hgb (14.0 - 18.0 G/DL) 9.3 L Hct (42 - 52 %) 30.0 L MCV (80.0 - 94.0 FL) 90.4 MCH (27.0 - 31.0 PG) 28.0 RDW (11.5 - 14.5 %) 23.8 H Plt Count (130 - 400 /CUMM) 162 MPV (7.4 - 10.4 FL) 9.1 Gran % (42.2 - 75.2 %) 57.2 Lymphocytes % (20.5 - 51.1 %) 23.7 Monocytes % (1.7 - 9.3 %) 13.4 H Eosinophils % (0 - 5 %) 5.1 H Basophils % (0.0 - 2.0 %) 0.6 Absolute Granulocytes (1.4 - 6.5 /CUMM) 3.0 Absolute Lymphocytes (1.2 - 3.4 /CUMM) 1.2 Absolute Monocytes (0.10 - 0.60 /CUMM) 0.7 H Absolute Eosinophils (0.0 - 0.7 /CUMM) 0.3 Absolute Basophils (0.0 - 0.2 /CUMM) 0 PUBS MCHC (33.0 - 37.0 G/DL) 31.0 L 08/19 08/19 08/19 08/19 08/18 1515 1445 0804 0600 1815 Chemistry Troponin I (<0.11 ng/ml) < 0.01 < 0.01 Coagulation PT (9.4 - 12.5 SEC) 15.9 H Cancelled INR (0.90 - 1.17) 1.52 H Cancelled APTT (25 - 37 SEC) > 120 *H 37 68 H 08/18 08/18 08/17 1119 7291 5758 Coagulation PT (9.4 - 12.5 SEC) 14.0 H INR (0.90 - 1.17) 1.34 H APTT (25 - 37 SEC) 97 H 41 H 106 *H
--- NOTE | 2016-08-20 16:29 | NUR ---
PATIENT RETURNED FROM DIALYSIS
[2016-08-20 16:48] VITALS: BP 148/56
[2016-08-20 18:19] LABS: PTT > 120 SEC (25-37)
--- NOTE | 2016-08-20 20:39 | NUR ---
BLOOD SUGAR 79 WILL GIVE OJ AND RECHECK CONTINUE TO MONITOR
[2016-08-20 23:58] VITALS: BP 124/80
[2016-08-21 01:23] LABS: PTT 62 SEC (25-37)
--- NOTE | 2016-08-21 01:40 | NUR ---
NURSING NOTE: LATE ENTRY. PTT 62. THERAPEUTIC PER HEPARIN PROTOCOL. HEPARIN GTT CURRENTLY RUNNING AT 26.1 ML/HR. NEXT PTT DUE 08/21/16 @ 1300.
--- NOTE | 2016-08-21 06:42 | PN- Housestaff ---
See Addendum Subjective Follow-up For: ESRD s/p AV fistula placement Chronic ulcerations Supraglottic edema Subjective: Patient seen and examined at bedside this AM. He reports he feels well and offers no complaints. Review of Systems Constitutional: Denies: chills, fever, malaise. EENTM: Denies: blurred vision, visual changes, hearing changes. Cardiovascular: Denies: chest pain, palpitations. Respiratory: Denies: cough, sputum production. Gastrointestinal: Denies: abdominal pain, bloating, constipation, diarrhea. Genitourinary: Reports: no symptoms. Musculoskeletal: Denies: back pain. Skin: Reports: lesions (Chronic leg ulcer). Neurological/Psychological: Denies: confusion, headache. Hematologic/Endocrine: Denies: bruising. Objective Last 24 Hrs of Vital Signs/I&O Vital Signs Date Time Temp Pulse Resp B/P Pulse O2 O2 Flow FiO2 Ox Delivery Rate 08/21 1100 122/51 08/21 1016 Room Air Room Air 08/21 0956 96/44 08/21 0847 72 99/44 08/21 0836 97.9 77 18 120/74 100 Room Air 08/20 2358 98.3 96 18 124/80 93 Room Air 08/20 2215 100 130/74 08/20 1648 98.3 84 20 148/56 92 Room Air Intake & Output 08/21 1600 08/21 0800 08/21 0000 Intake Total 308.8 690 Output Total Balance 308.8 690 Intake, IV 208.8 190 Intake, Oral 100 500 Number 2 5 Bowel Movements Patient 145 lb Weight Physical Exam General Appearance: Alert, Oriented X3, Cooperative, No Acute Distress Other Physical Findings: Skin: Persistent eschars noted. LLE chronic leg wound examined and showed erythematous and moist wound. Wound care contacted for further suggestions. HEENT: Atraumatic, Mucous Membr. moist/pink Lymphatic: Cervical nl Cardiovascular: Regular Rate, Normal S1, Normal S2 Lungs: Normal Air Movement Abdomen: Normal Bowel Sounds, Soft, No Tenderness Neurological: Normal Speech, Normal Tone Extremities: No Edema Current Medications: Current Medications Sig/Kailash Start time Last Medication Dose Route Stop Time Status Admin Acetaminophen 650 MG .STK-MED ONE 08/21 0333 DC PO 08/21 0334 Acetaminophen 650 MG Q6P PRN 08/13 1915 AC 08/21 PO 0341 Aspirin 81 MG DAILY 08/14 1000 AC 08/21 PO 0838 Atorvastatin Calcium 40 MG 1700 08/14 1700 AC 08/20 PO 1717 Carvedilol 25 MG BID 08/13 2200 AC 08/20 PO 2215 Collagenase 1 CHAITANYA DAILY 08/14 1000 DC 08/19 TOP 0938 Epoetin Ludwig 2,000 UNIT TUES THURS SAT PRN 08/17 1000 AC IV Epoetin Ludwig 3,000 UNIT TUES THURS SAT PRN 08/17 1000 AC IV Guaifenesin 600 MG Q12 08/13 2200 AC 08/21 PO 0839 Heparin Sodium 25,000 UNIT Q24H 08/16 2330 DC 08/21 (Porcine) IV 0324 Sodium Chloride 500 ML Insulin Aspart 0 AC & AT BEDTIME 08/14 0800 AC 08/21 SC 0839 Insulin Detemir 5 UNITS DAILY 08/14 1000 AC 08/21 SC 0839 Magnesium Oxide 400 MG 1600,2200 08/20 1600 DC 08/20 PO 08/20 2201 2215 Magnesium Oxide 400 MG BID 08/20 1140 CAN PO 08/20 2201 Morphine Sulfate 2 MG Q4P PRN 08/13 1930 DC IV Multivitamins 1 TAB DAILY 08/14 1000 AC 08/21 PO 0838 Omeprazole 40 MG DAILY AC 08/14 0700 AC 08/21 PO 0617 Oxycodone/ 2 TAB Q8P PRN 08/14 1115 DC 08/21 Acetaminophen PO 0617 Prednisone 5 MG DAILY 08/14 1000 AC 08/21 PO 0838 Sevelamer Carbonate 800 MG WM 08/20 1200 AC 08/21 PO 0838 Sodium Chloride 2 SPRAY Q10MIN PRN 08/13 1915 AC CARLITOS Sodium Hypochlorite 1 CHAITANYA BID 08/13 2200 AC 08/20 TOP 2215 Vitamin A/Vitamin D 1 CHAITANYA BID 08/13 2200 AC 08/21 TOP 0839 Warfarin Sodium 5 MG COUMADIN 1700 ONE 08/20 1700 CAN PO 08/20 1701 Warfarin Sodium 2.5 MG COUMADIN 1700 ONE 08/20 1700 DC 08/20 PO 08/20 1701 1719 Zinc Oxide 1 CHAITANYA BID 08/13 2200 AC 08/21 TOP 0839 Last 24 Hrs of Lab/Avtar Results Last 24 Hrs of Labs/Mics: Laboratory Tests 08/21/16 0945: PT 24.6 H, INR 2.36 H 08/21/16 0735: Phosphorus 2.9, Magnesium 1.4 L 08/21/16 0055: APTT 62 H 08/20/16 1730: APTT > 120 *H Assessment/Plan Assessment: Mr. Marvin is a pleasant 75 y/o M with PMHx of antiphospholipid antibody syndrome, diabetes and CKD who presented with SOB, hoarseness and stridor, found to be uremic with initiation of HD, s/p debridement of chronic left leg ulcer, s /p IV vancomycin for soft tissue infection and s/p AV fistula placement for ESRD. Fever of unknown origin: RESOLVED. CT abdomen and chest has not revealed any source of infection. Will monitor WBC on dialysis days. Area of AV fistula clean without signs of infection. Biopsy sites also without signs of infection. Continue to monitor LLE wound as well as coccygeal wound and clean/dress as per wound care recommendations after discharge. Anemia : STABLE. Etiology multifactorial. Per GI anemia likely secondary to other causes than GI. Will have patient follow-up with GI as an outpatient. We'll continue iron supplementation and Epogen. Monitor CBC on dialysis days and heparin therapy. Substernal chest pressure: RESOLVED. Troponin ordered 08/19/16 negative at <0.01 x2. EKG showed erratic baseline with wide QRS, no significant change from previous. EKG reviewed with resident and attending. Patient to follow up with cardiology once discharged for continued care. Chronic left lower extremity ulcer: Nonhealing ulcer on left lower extremity along with multiple other ulcers. Wound care following. Skin biopsy to rule out calciphylaxis shows NO EVIDENCE OF CALCIPHYLAXIS OR WARFARIN-INDUCED SKIN NECROSIS. INR now therapeutic, patient may be discharged with 2.5 mg PO warfarin daily. Antiphospholipid antibody syndrome: * Patient now has therapeutic INR, will discharge with instructions to continue taking 2.5 mg PO warfarin every other day. ESRD: Cr was 5 on admission, with gradual increase from 2-3 within the past year. Most likely etiology is progressive diabetic nephropathy. Mj cath was placed and urgent hemodialysis was initiated (06/26) with improvement of mental status. Patient is currently awaiting outpatient dialysis slot. * Nephrology following, continue to follow recs * Mj Cath in place, HD scheduled for , , Fri, patient will recieve dialysis today. * Continue sevelamer 800 mg PO TIDAC. * F/u repeat mag level as an outpatient to monitor for hypomagnesemia. * Continue daily Nephrocaps * Vascular surgeon Dr. Bryan was notified regarding questionable thrombosed AV fistula per nephro. Right vein mapping suggests thrombosis. Patient will follow up with nephrology and vascular after discharge for further management of this issue. T2DM: Uncontrolled blood sugars this admission, secondary to steroids. * Endocrinology following, appreciate input * Levemir 5U SQ DAILY * NSS to continue as presently ordered HTN: Takes amlodipine 10 mg PO QD, carvedilol 25 mg PO BID, furosemide 80 mg PO BID and hydralazine 50 mg PO BID at home. * Holding home amlodipine, furosemide and hydralazine. * Continue home carvedilol. Crohn's disease: Patient has been taking prednisone 10 mg PO QD for many years to prevent flares. * Prednisone 5 mg daily. If patient at any time gets hypotensive, given a stress dose of steroid followed by increasing dose of prednisone to 10 mg daily * The patient to remain on aspirin. * C. diff negative Diet: Renal dialysis DVT PPx: Heparin and warfarin CODE: DNR/DNI Problem List: 1. Pneumonia 2. Peripheral vascular disease 3. Bilateral vocal cord paralysis 4. Type 2 diabetes mellitus 5. Chronic ulcer of left lower extremity 6. Antiphospholipid antibody syndrome 7. Elevated troponin 8. Supraglottic edema 9. End stage renal disease Pain Ratin Pain Location: n/a Pain Goal: Remain pain free Pain Plan: 2 tab percocet Q8P for moderate pain. Tomorrow's Labs & Rationales: INR. BEP and CBC to be done on dialysis days after discharge.
[2016-08-21] MEDS ORDERED: LEVEMIR100 UNIT/1 SC (07:40)
[2016-08-21 08:36] VITALS: BP 120/74
[2016-08-21 09:56] VITALS: BP 96/44
[2016-08-21 10:12] LABS: PT 24.6 SEC (9.4-12.5)
[2016-08-21 11:00] VITALS: BP 122/51
[2016-08-21] MEDS ORDERED: PROCRIT3000 UNIT/ IV (11:24)
[2016-08-21] MEDS ORDERED: NOVOLOG100 UNIT/2 SC (11:24)
[2016-08-21] MEDS ORDERED: PROCRIT2000 UNIT/ IV (11:24)
[2016-08-21] MEDS ORDERED: VITAMIN A & D56.7 GM TOP (11:24)
[2016-08-21 12:20] VITALS: BP 122/51
--- NOTE | 2016-08-21 13:41 | NUR ---
REPORT GIVEN TO RANULFO GRACE AT [facility]
== END 2016-08-21 14:32 | DRG 981 ==
LOC: ERH 02:48 → CRI 04:06 → 2NB 04:06 → ERHI 04:06 → 2NA 04:06 → ENPENDDIS 04:06 → EDPENDDISTM 04:06 → 1NO 04:06 → CRI 07:40 → 1NO 07-01 20:46 → 2NA 07-07 14:57 → CRI 07-09 09:16 → 2NB 07-11 09:05 → CRI 07-31 15:45 → 2NB 08-03 09:27
PROVIDERS: Dermatology; Emergency Medicine; Internal Medicine; Internal Medicine Cardiovascular Disease; Internal Medicine Critical Care Medicine; Internal Medicine Endocrinology, Diabetes & Metabolism; Internal Medicine Infectious Disease; Internal Medicine Interventional Cardiology; Internal Medicine Nephrology; Ophthalmology; Radiology Diagnostic Radiology; Student in an Organized Health Care Education/Training Program; ADMIT Internal Medicine
PROC: 05HM33Z Insertion of Infusion Device into Right Internal Jugular Vein, Percutaneous Approach (ICD-10-PCS; 2016-06-26)
PROC: B513ZZA Fluoroscopy of Right Jugular Veins, Guidance (ICD-10-PCS; 2016-06-26)
PROC: 0KBT0ZZ Excision of Left Lower Leg Muscle, Open Approach (ICD-10-PCS; principal; 2016-06-30)
PROC: 0HBKXZX Excision of Right Lower Leg Skin, External Approach, Diagnostic (ICD-10-PCS; 2016-06-30)
PROC: 30233N1 Transfusion of Nonautologous Red Blood Cells into Peripheral Vein, Percutaneous Approach (ICD-10-PCS; 2016-07-16)
PROC: 5A1D60Z (ICD-10-PCS; 2016-08-12)
PROC: 03170ZD Bypass Right Brachial Artery to Upper Arm Vein, Open Approach (ICD-10-PCS; 2016-08-13)
PROC: 0HBLXZX Excision of Left Lower Leg Skin, External Approach, Diagnostic (ICD-10-PCS; 2016-08-13)
PROC: 05BB0ZZ Excision of Right Basilic Vein, Open Approach (ICD-10-PCS; 2016-08-13)
DX: J38.02 Paralysis of vocal cords and larynx, bilateral (principal); G93.40 Encephalopathy, unspecified; J96.01 Acute respiratory failure with hypoxia; J69.0 Pneumonitis due to inhalation of food and vomit; R65.21 Severe sepsis with septic shock; L89.310 Pressure ulcer of right buttock, unstageable; L89.151 Pressure ulcer of sacral region, stage 1; E87.2 Acidosis; L89.320 Pressure ulcer of left buttock, unstageable; N18.6 End stage renal disease; B48.8 Other specified mycoses; D68.61 Antiphospholipid syndrome; I24.8 Other forms of acute ischemic heart disease; L97.229 Non-pressure chronic ulcer of left calf with unspecified severity; I82.721 Chronic embolism and thrombosis of deep veins of right upper extremity; I12.0 Hypertensive chronic kidney disease with stage 5 chronic kidney disease or end stage renal disease; K51.90 Ulcerative colitis, unspecified, without complications; E11.22 Type 2 diabetes mellitus with diabetic chronic kidney disease; E11.65 Type 2 diabetes mellitus with hyperglycemia; Z99.2 Dependence on renal dialysis; Z79.4 Long term (current) use of insulin; Z79.01 Long term (current) use of anticoagulants; E83.59 Other disorders of calcium metabolism; Z87.891 Personal history of nicotine dependence
CPT/HCPCS: 04007; 1NP; 2NAP; 2NBP; 87070; 87075; 87184; CCU; 36415; 70360; 74177; 77001; 81001; 82436; 86920; 87040; 87071; 87086; 87088; 87147; 87449; 87450; 88304; 88305; 93005; 93010; 93306; 94799; 96365; 97001-GP; 97002-GP; 97003-GO; 97110-GO; 97116-GO; 97164-GP; 97530-GO; 99291; C1752; C1769; C1894; G0365; J0131; J0690; J0713; J0885; J1100; J1450; J1642; J1644; J1720; J1756; J1815; J1940; J2270; J2405; J3370; J3490; J7040; J7042; J7060; J7512; P9016

== ENCOUNTER 2016-08-28 14:15 | Inpatient (IN) | payer OTHER, MEDICARE ==
[~2016-08-28] VITALS: Ht 172.7 cm; Wt 64.4 kg
[~2016-08-28 14:15] MED LIST changes: +ASPIRIN EC81 M1 PO; +ATORVASTATIN CA40 M1 PO; +COUMADIN2.5 M1 PO; +DAKIN'S473 ML TOP; +FUROSEMIDE80 M1 PO; +MUCINEX600 M1 PO; +NEPHRO-VITE TA0.8 MG PO; +NEPHROCAPS SOFTG1 MG PO; +PREDNISONE2.5 M1 PO; +PREDNISONE5 M1 PO; +PRILOSEC OTC20 M1 PO; +PROCRIT2000 UNIT/ IV; +PROCRIT3000 UNIT/ IV; +SALINE NASAL SP30 ML NASB; +SODIUM THI12.5 GM/50 IV; +VITAMIN A & D56.7 GM TOP
--- NOTE | 2016-08-28 14:33 | ED GENERAL ADULT ---
History of Present Illness General Chief Complaint: General Adult Stated Complaint: HYPOTENSION Source: EMS Exam Limitations: poor historian Vital Signs & Intake/Output Vital Signs & Intake/Output Vital Signs Date Time Temp Pulse Resp B/P Pulse O2 O2 Flow FiO2 Ox Delivery Rate 08/31 0846 95 Nasal 2.0L Cannula 08/31 0751 97.6 87 18 138/68 100 Nasal 1.0L Cannula 08/31 0005 98.2 88 18 112/58 100 Nasal Cannula 08/31 0000 Nasal 2.0L Cannula 08/30 2000 97.6 88 18 110/58 92 Nasal 2.0L Cannula 08/30 1635 98.1 89 18 116/58 100 Nasal 6.0L Cannula 08/30 1600 96 Nasal 2.0L Cannula ED Intake and Output 08/31 0000 08/30 1200 Intake Total 1620 450 Output Total 100 Balance 1620 350 Intake, IV 500 450 Intake, Oral 1120 Number 6 1 Bowel Movements Output, Stool 100 Patient 140 lb 140 lb Weight Allergies Coded Allergies: Sulfa (Sulfonamide Antibiotics) (Mild, HIVES 06/15/16) Triage Note: PT PRESENTS TO ER BY AMBULANCE FROM THE [facility]. PER EMS THEY WERE CALELD DUE TO PT HAVING HYPOTENSION, BEING PALE, AND LETHARGIC. PT IS A NEW DIALYSIS PT WHO HAD DIALYSIS YESTERDAY AND FELT FINE. TODAY PT WAS NOTED TO HAVE HYPOTENSION, WITH BP RANGING FROM 60/40 TO 70/50. PT IS ALSO A DIABETIC AND HAS WOUND TO LLE THAT IS RED AND HAS EXPOSED TENDON/BONE. PT ALSO HAS A PRESSURE ULCER TO BUTTOCK THAT IS COVERED BY A DUDODERM. PER NURSING FACILITY RECORDS PRESSURE ULCER IS STAGE 2. PT IS ALERT BUT FORGETFUL WHICH IS PTS NORM BASELINE. EMS ALSO STATES PATIENT C/O NOT FEELING WELL TO THE NURSING FACILITY AND THEN VOMITTED. PER FACILITY PT HAD ONE EPISODE OF EMESIS APPROX 100CC OUTPUT. BP ON ARRIVAL IN ED 79/49 Triage Nurses Notes Reviewed? yes Onset: Abrupt Duration: day(s): Timing: recent history HPI: 08/28/16 The patient was seen on arrival. He is a 75-year-old man who presents to the emergency department for altered mental status and hypotension. According to EMS he was receiving dialysis yesterday. This was for the first time. [facility] This morning he was found to be hypotensive and confused. The onset of symptoms was abrupt, the duration was just today, the severity is significant as his symptoms required him to come to the emergency department for care. He is profoundly hypotensive on arrival. IV fluids were given and the patient was placed on a monitor. (CARLOS ENRIQUE DAVENPORT DO) Reconcile Medications Aspirin (Ecotrin*) 81 MG TABLET. 1 TAB PO DAILY hEART hEALTH Atorvastatin Calcium 40 MG TABLET 1 TAB PO DAILY HIGH LIPIDS B Complex & C No.20/Folic Acid (Nephrocaps Softgel) 1 MG CAPSULE 1 CAP PO DAILY SUPPLEMENT Calcitriol (Rocaltrol) 0.25 MCG CAPSULE 1 CAP PO DAILY KIDNEYS (Reported) Calcium Carbonate/Vitamin D3 (Os-Vishal 500+D3 Caplet) 500 MG-600 TABLET 1 TAB PO TID SUPPLEMENT (Reported) Carvedilol 25 MG TABLET 1 TAB PO BID DIRECTED (Reported) Cyanocobalamin (Vitamin B-12) 1,000 MCG TABLET 1 TAB PO DAILY SUPPLEMENT ( Reported) Ferrous Sulfate 325 MG (65 MG IRON) TABLET 1 TAB PO TID SUPPLEMENT (Reported) Guaifenesin (Mucinex) 600 MG TAB.ER.12H 1 TAB PO BID cONGESTION Insulin Aspart (Novolog) 100 UNIT/ML VIAL 0 UNITS SC SEE ADMIN CRITERIA BEFORE MEALS Blood Insulin Sugar Units <80 0 80-99 0 100-150 4 151-200 5 201-250 6 251-300 7 301-350 8 351-400 9 >400 Call MD AT BEDTIME Blood Insulin Sugar Units <80 0 81-100 0 101-200 0 201-250 0 251-300 2 301-350 3 351-400 4 >400 Call Doctor, 5 units Insulin Detemir (Levemir) 100 UNIT/ML VIAL 5 UNITS SC DAILY diabetes Nephro-Vitamins (Nephro-Arthur Tablet) 0.8 MG TABLET 1 TAB PO DAILY kidney Omeprazole Magnesium (Prilosec Otc) 20 MG TABLET. 2 TAB PO DAILY gerd Oxycodone HCl/Acetaminophen (Percocet 5-325 MG Tablet) 5 MG-325 MG TABLET 2 TAB PO Q8P PRN PAIN SCALE 4-6 (MODERATE) Prednisone 5 MG TABLET 1 TAB PO DAILY Adrenals Sevelamer Carbonate (Renvela) 800 MG TABLET 1 TAB PO TIDWM KIDNEYS (Reported) RESTART WHEN PHOS LEVEL >3.5 Sodium Chloride (Saline Nasal [place]) 0.65 % SPRAY 1 SPRAY NASB 4 TIMES/DAY PRN dRY NOSE Sodium Hypochlorite (Dakin's) 0.5 % SOLUTION 1 CHAITANYA TOP BID skin (STEVEN HEATH,[facility]) Past History Travel History Traveled to [place] past 21 day No Medical History Any Pertinent Medical History? see below for history Neurological: NONE EENT: NONE Cardiovascular: PVD, DVT Respiratory: pneumonia Gastrointestinal: Crohn's disease Hepatic: NONE Renal: nephrolithiasis, CKD Musculoskeletal: VASCULAR OCCLUSION RIGHT LEG RIGHT PATELLA FRACTURE WITH orif NON HEALING WOUNDS R. TOE AMPUTATIONS Psychiatric: NONE Endocrine: diabetes Blood Disorders: anemia, coagulopathy, DVT (RUE and RLE), antiphosphlipid syndrome Cancer(s): NONE LABOR SPECIALIST/Reproductive: NONE History of MRSA: No History of VRE: Yes History of CDIFF: No Surgical History Surgical History: colon resection, knee replacement (left), LEFT HIP ORIF status post right leg bypass status post right patellar ORIF status post right TMA status post lithotripsy and stent placements Psychosocial History Who do you live with Spouse Services at Home None What is your primary language Stateless Tobacco Use: Never used Family History Family History, If Any: FATHER Antiphospholipid syndrome FH: diabetes mellitus MOTHER FH: Crohn's disease Hx Contributory? No (CARLOS ENRIQUE DAVENPORT DO) Review of Systems Review of Systems Constitutional: Denies: fever. EENTM: Denies: visual changes. Respiratory: Reports: no symptoms. Cardiovascular: Reports: no symptoms. GI: Reports: diarrhea. Genitourinary: Reports: no symptoms. Musculoskeletal: Reports: no symptoms. Skin: Reports: rash (infected abrasions legs). Neurological/Psychological: Reports: confusion. (CARLOS ENRIQUE DAVENPORT DO) Physical Exam Physical Exam General Appearance: anxious, severe distress Head: atraumatic Eyes: Bilateral: normal appearance, PERRL, EOMI. Ears, Nose, Throat: dry mucous membranes Neck: normal inspection, supple Respiratory: normal breath sounds, chest non-tender, no respiratory distress Cardiovascular: regular rate/rhythm Gastrointestinal: soft, non-tender Rectal: heme negative stool Back: decreased range of motion Extremities: cellulitis and infected abrasions bilateral posterior legs, he also has a decubitus ulcer to his sacral area. Neurologic/Psych: confused, nonfocal Skin: rash Core Measures ACS in differential dx? No CVA/TIA Diagnosis: No Severe Sepsis Present: No Septic Shock Present: No (ETHEL PATEL,CARLOS ENRIQUE Jarquin) Progress Differential Diagnoses I considered the following diagnoses in my evaluation of the patient: [Sepsis, dehydration, GI bleed, pneumonia, electrolyte derangement] Plan of Care: Orders Procedure Date/time Status PROTHROMBIN TIME 09/01 599 Active CBC WITHOUT DIFFERENTIAL 09/01 599 Active PROTHROMBIN TIME 08/31 599 Complete CBC WITHOUT DIFFERENTIAL 08/31 599 Complete Renal Dialysis Diet 08/30 D Active Transfer patient to 08/30 1307 Active Treatment of Swallowing 08/30 UNK Complete Discontinue Telemetry/Monitor 08/30 UNK Active Current Medications Sig/Kailash Start time Last Medication Dose Stop Time Status Admin Epoetin Ludwig 6,000 UNIT SAT PRN 08/29 1330 AC (Epogen Inj 3000 (DIALYSIS PATIENTS) Laboratory Tests 08/31/16 0650: PT 61.1 *H, INR 5.92 *H, CBC w Diff NO MAN DIFF REQ, RBC 3.12 L, MCV 91.9, MCH 28.5, RDW 22.5 H, MPV 8.2, Gran % 76.6 H, Lymphocytes % 12.7 L, Monocytes % 8.8, Eosinophils % 1.9, Basophils % 0 L, Absolute Granulocytes 6.7 H, Absolute Lymphocytes 1.1 L, Absolute Monocytes 0.8 H, Absolute Eosinophils 0.2, Absolute Basophils 0, PUBS MCHC 31.0 L 08/30/16 1826: CBC w Diff NO MAN DIFF REQ, RBC 3.43 L, MCV 91.4, MCH 28.1, RDW 22.0 H, MPV 8.5, Gran % 83.5 H, Lymphocytes % 7.3 L, Monocytes % 8.1, Eosinophils % 0.4, Basophils % 0.7, Absolute Granulocytes 6.8 H, Absolute Lymphocytes 0.6 L, Absolute Monocytes 0.7 H, Absolute Eosinophils 0, Absolute Basophils 0.1, PUBS MCHC 30.7 L 3:27 PM Patient signed out to me by Dr. Davenport. Pending labs, imaging.... 08/28/2016 6:32:52 PM I again discussed central line placement with the patient and his . According to his since he started dialysis pressure has been no greater than 100 1205 systolic. He appears much improved at this time increased mentation. Urine is visibly purulent. They want to hold off on central line placement at this time. (LATA DUDLEY MD) Initial ED EKG: nonspecific ST T wave chg (CARLOS ENRIQUE DAVENPORT DO) Departure Departure Condition: Stable Referrals: OANH HEATH,WAYNE Posada (PCP/Family) Departure Forms: Customer Survey General Discharge Information Comments 08/28/16 3:30 pm Signed out to Lata Dudley MD at 3 PM (CARLOS ENRIQUE DAVENPORT DO) Departure Time of Disposition: 1803 Disposition: STILL A PATIENT Clinical Impression Primary Impression: UTI (urinary tract infection) Secondary Impressions: Sepsis Admission Note Spoke With: DEBBIE SPENCER MD Documentation of Exam: Documentation of any treatments & extenuating circumstances including Concerns Regarding Discharge (functional status, medication knowledge or non-compliance, living conditions, etc.) that warrant an admission rather than observation: [IV FLUIDS, MONITOR I/O, IV ABX, F/U CULTURES, F/U LACTIC ACID, CONSIDER ID CONSULTATION] (LATA DUDLEY MD) Critical Care Note Critical Care Note Critical Care Time: 30-74 min (CARLOS ENRIQUE DAVENPORT DO)
[2016-08-28 15:22] LABS: ABSOLUTE BASOPHIL COUNT 0.1 /CUMM (0.0-0.2); ABSOLUTE EOSINOPHIL COUNT 0.1 /CUMM (0.0-0.7); ABSOLUTE GRANULOCYTE CT 10.6 /CUMM (1.4-6.5); ABSOLUTE LYMPH COUNT 1.3 /CUMM (1.2-3.4); ABSOLUTE MONOCYTE COUNT 0.8 /CUMM (0.10-0.60); BASOPHIL % 0.4 % (0.0-2.0); EOSINOPHIL % 0.5 % (0-5); GRANULOCYTE % 83.1 % (42.2-75.2); HEMATOCRIT 32.2 % (42-52); MEAN CORPUSCULAR HGB 28.6 PG (27.0-31.0); MEAN CORPUSCULAR HGB CONC 31.3 G/DL (33.0-37.0); MEAN CORPUSCULAR VOLUME 91.4 FL (80.0-94.0); MEAN PLATELET VOLUME 8.4 FL (7.4-10.4); PLATELET COUNT 411 /CUMM (130-400); RBC DISTRIBUTION WIDTH 22.6 % (11.5-14.5); RED BLOOD CELL CT 3.53 /CUMM (4.70-6.10); WHITE BLOOD CELL COUNT 12.8 /CUMM (4.8-10.8)
--- NOTE | 2016-08-28 15:43 | RADIOLOGY REPORT ---
EXAMINATION: XR PORTABLE CHEST CLINICAL INFORMATION: Altered mental status. Assess for pneumonia COMPARISON: 07/23/2016, 07/31/2016 TECHNIQUE: Portable AP view of the chest was obtained. FINDINGS: There is a right IJ dual lumen dialysis catheter extending into the right atrium, unchanged. The cardiomediastinal silhouette appears stable and within normal limits apart from some calcification at the aortic knob. The right lung appears clear. The patient is rotated and the left suprahilar vascular structures appear asymmetrically prominent, likely due to position. No convincing superimposed consolidation or evidence of pulmonary edema. No pleural effusions or pneumothoraces. Some faint clips project over the left upper quadrant of the abdomen corresponding to some apparent abdominal wall clips on the prior CT of 07/24/2016. IMPRESSION: Rotated image without convincing acute abnormality.
--- NOTE | 2016-08-28 19:52 | History & Physical ---
DANITA HEATH,[facility] 08/28/161951: General Information and HPI MD Statement: I have seen and personally examined BENJAMIN MARVIN and documented this H&P. The patient is a 75 year old M who presented with a patient stated chief complaint of nausea, vomiting, lethargy and hypotension. Source of Information: patient, family, old records Exam Limitations: clinical condition, confusion History of Present Illness: Mr. Marvin is a 76-year-old gentleman with past medical history of DVT on Coumadin therapy, hypertension, diabetes, CKD stage V currently on hemodialysis, peripheral vascular disease, left lower extremity necrotizing nonhealing ulcers, history of cellulitis with Pseudomonas. Crohn's disease status post bowel resection and on chronic prednisone therapy, femoral-popliteal bypass surgery, and several glottic edema as well as acute respiratory failure which required an ICU admission in May 2016 who presented to the emergency department from a rehabilitation facility this afternoon due to decreased mentation, lethargy and hypotension. Patient was in his usual state of health until the early hours 08/28. During afternoon rounds at short-term rehabilitation the patient was found to be pale and lethargic and stated that "he did not feel well". Communication form states that he had one episode of emesis. Approximately 100 cc. Blood pressure taken at this time was 60/40. Repeat blood pressure after PO fluids showed 70/50. Due to hypotension patient was sent into the ER after 911 was called. Patient underwent hemodialysis yesterday. was at bedside and helped with part of the history. She reports as of late, the patient has had a change to his bowel movements although the patient does have a history of chronic diarrhea. Reports that the patient has had worsening diarrhea and significant changes to caliber of stool. Patient's states that stool now has a particular scent. The patient denies and fever or chills. Allergies/Medications Allergies: Coded Allergies: Sulfa (Sulfonamide Antibiotics) (Mild, HIVES 06/15/16) Compliance With Home Meds: GOOD Past History Travel History Traveled to [place] past 21 day No Medical History Neurological: NONE EENT: NONE Cardiovascular: PVD, DVT Respiratory: pneumonia Gastrointestinal: Crohn's disease Hepatic: NONE Renal: nephrolithiasis, CKD Musculoskeletal: VASCULAR OCCLUSION RIGHT LEG RIGHT PATELLA FRACTURE WITH orif NON HEALING WOUNDS R. 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 Home Who Do You Live With? spouse Services at Home: None Primary Language: Persian Functional Ability ADLs Independent: dressing, eating, toileting, bathing. Ambulation: walker IADLs Needs Assist: shopping, housework, finances, food prep, telephone, transportation, medication admin. Review of Systems Review of Systems Constitutional: Reports: weakness. Denies: chills, diaphoresis, fever. Cardiovascular: Denies: chest pain, edema, orthopena, palpitations. Respiratory: Denies: cough, hemoptysis, orthopnea, short of breath. GI: Reports: abdominal pain, diarrhea, nausea, changes in stool, vomiting. Denies: bloating, distention. Genitourinary: Denies: discharge, dysuria, frequency, hematuria. Musculoskeletal: Denies: back pain, gout, joint pain. Exam & Diagnostic Data Last 24 Hrs of Vital Signs/I&O Vital Signs Date Time Temp Pulse Resp B/P Pulse O2 O2 Flow FiO2 Ox Delivery Rate 08/28 2217 96/08/28 2156 97.6 90 16 100 Nasal 2.0L Cannula 08/28 2119 96 100/55 08/28 2030 90 92/57 08/28 1930 94 124/58 08/28 1900 88 103/54 08/28 1836 97.2 86 16 104/00 100 Room Air 08/28 1801 86 89/53 08/28 1746 86 16 105/57 08/28 1740 100/00 08/28 1650 82 78/00 08/28 1554 84 79/51 02/ 1530 Room Air 08/28 1527 83 12 81/51 08/28 1448 Room Air Room Air 08/28 1429 96.9 101 16 79/49 100 Nasal 2.0L Cannula Intake & Output 08/28 1600 08/28 0800 02 0000 Intake Total 1000 Output Total Balance 1000 Intake, IV 1000 Physical Exam General Appearance Alert, Cooperative, Mild Distress, Somnolent HEENT PERRLA, Mucous Membranes Dry Cardiovascular Regular Rate, Normal S1, Normal S2 Lungs Clear to Auscultation, Limited Exam due to clinical condition Abdomen Normal Bowel Sounds, Soft, Tenderness with Palpation. No Guarding. No rebound. Neurological Normal Speech, Normal Tone, Sensation Intact, Cranial Nerves 3-12 NL Extremities No Edema, Left Foot Choronic ulcer. Necrotic. Left LE wrapped in bandage. Right Foot Stump Last 24 Hrs of Labs/Avtar: Laboratory Tests 08/28/16 1759: Urinalysis LIGHT H, Urine Color YEL, Urine Clarity CLDY H, Urine pH 6.5, Ur Specific Kamrar 1.025, Urine Protein 100 H, Urine Ketones NEG, Urine Nitrite NEG, Urine Bilirubin NEG, Urine Urobilinogen 0.2, Ur Leukocyte Esterase LARGE H , Ur Microscopic SEDIMENT EXAMINED, Urine RBC 5-10 H, Urine WBC PACKD H, Ur Epithelial Cells FEW, Hyaline Casts 1-3 H, Urine Mucus MOD H, Urine Hemoglobin LARGE H, Urine Glucose NEG 08/28/16 1501: Anion Gap 12, Estimated GFR 21 L, BUN/Creatinine Ratio 6.2 L, Glucose 131 H, Lactic Acid 3.8 H, Calcium 9.2, Magnesium Pending, Total Bilirubin 0.4, AST 26, ALT 29, Alkaline Phosphatase 77, Troponin I 0.07, Ceq-C-Eosvsagqvoe Pept 06659 H, Total Protein 5.8 L, Albumin 2.5 L, Globulin 3.3, Albumin/Globulin Ratio 0.8 L, CBC w Diff MAN DIFF ORDERED, RBC 3.53 L, MCV 91.4, MCH 28.6, RDW 22.6 H, MPV 8.4, Gran % 83.1 H, Lymphocytes % 9.9 L, Monocytes % 6.1, Eosinophils % 0.5, Basophils % 0.4, Absolute Granulocytes 10.6 H, Segmented Neutrophils 71, Band Neutrophils 7 H, Absolute Lymphocytes 1.3, Lymphocytes 13 L, Monocytes 8, Absolute Monocytes 0.8 H, Absolute Eosinophils 0.1, Absolute Basophils 0.1, Myelocytes 1 H, Platelet Estimate ADEQUATE, Polychromasia , Hypochromic- Microcytic 1+, Anisocytosis 1+, PUBS MCHC 31.3 L 08/28/16 1436: PT Cancelled, INR Cancelled Microbiology 08/28 1750 STOOL: Clostridium difficile Toxin A & B - RECD 08/28 1750 STOOL: Stool Culture - RECD 08/28 1640 URINE ROUT: Urine Culture - RECD 08/28 1612 BLOOD: Blood Culture - RECD 08/28 1435 URINE ROUT: Urine Culture - ORD 08/28 1435 BLOOD: Blood Culture - ORD Diagnostic Data EKG Results NSR. Rate 90 ?RBBB CXR Results SERVICE DATE: 08/28/16-1434 EXAM TYPE: RAD - XRY-PORTABLE CHEST XRAY EXAMINATION: XR PORTABLE CHEST CLINICAL INFORMATION: Altered mental status. Assess for pneumonia COMPARISON: 07/23/2016, 07/31/2016 TECHNIQUE: Portable AP view of the chest was obtained. FINDINGS: There is a right IJ dual lumen dialysis catheter extending into the right atrium, unchanged. The cardiomediastinal silhouette appears stable and within normal limits apart from some calcification at the aortic knob. The right lung appears clear. The patient is rotated and the left suprahilar vascular structures appear asymmetrically prominent, likely due to position. No convincing superimposed consolidation or evidence of pulmonary edema. No pleural effusions or pneumothoraces. Some faint clips project over the left upper quadrant of the abdomen corresponding to some apparent abdominal wall clips on the prior CT of 07/24/2016. IMPRESSION: Rotated image without convincing acute abnormality. DICTATED BY: MASHA PHAM MD Other Results SERVICE DATE: 08/28/16- EXAM TYPE: CAT - CT ABD & PELVIS W/O IV CONTRAS EXAMINATION: CT ABDOMEN AND PELVIS WITHOUT CONTRAST CLINICAL INFORMATION: Abdominal pain, nausea, vomiting. COMPARISON: 07/24/2016. TECHNIQUE: Contiguous axial thin section helical images of the abdomen and pelvis were performed without oral or IV contrast. The data set was reformatted in the coronal and sagittal planes and reviewed on an independent workstation. DLP: 396 mGy-cm. FINDINGS: There is a small left pleural effusion. There is mild dependent bibasilar atelectasis.. The visualized portions of the heart are unremarkable. The liver is of normal size and attenuation without focal lesions nor intrahepatic biliary ductal dilation. The gallbladder is distended. There are a few small layering calculi. There is no gallbladder wall thickening or pericholecystic fluid. The spleen, pancreas, adrenal glands are unremarkable. Both kidneys are of normal size and attenuation without hydronephrosis or nephrolithiasis. There is a 5 cm cyst within the upper pole of the left kidney. There is no abdominal free fluid. There is neither mesenteric nor retroperitoneal lymphadenopathy. There are diffuse vascular calcifications present. Normal unopacified loops of small and large bowel are identified. There is no pelvic free fluid. A Can catheter is present within the decompressed urinary bladder. There is neither pelvic nor inguinal lymphadenopathy. Bone windows: Neither sclerotic nor lytic bone lesions are identified. A left hip prosthesis is intact. IMPRESSION: Distended gallbladder with cholelithiasis without gallbladder wall thickening or pericholecystic fluid. Small left pleural effusion. DICTATED BY: BENITA GOLD MD Assessment/Plan Assessment: This is a 75-year-old gentleman with significant past medical history who presented to the emergency department [facility] this evening owing to hypotension and lethargy at long-term extended Facility. #Hypotension Owing to hypovolemia versus sepsis. Potential sources could be decubitus ulcers versus left lower extremity wound versus gallbladder pathology vs UTI. Continue broad spectrum antibiotics, Vancomycin and Ceftazidime. Patient received metronidazole in the ER. We'll continue to monitor for signs of C. difficile. We'll continue to hydrate the patient with fluids. Monitoring lactate to rule out worsening septic and ischemia. Due to multiple nidus or sources of infection may want to consider ID recommendations as it relates to current condition. #Chronic decubitus stage II ulcer on sacrum. Consider wound consult in a.m. #Abdominal pain pain likely secondary due to gallbladder pathology. CT scan showed cholelithiasis and distended gallbladder. Upper abdominal ultrasound to rule out worsening pathology. Patient continues to deteriorate consider endocrinology consult stat #History of end-stage renal disease Consider nephrology consult exam. Patient will likely need hemodialysis on 08/30/2016. Monitor BEP in AM #History of diabetes Keep patient nothing by mouth for now Low-dose insulin scale sliding scale If blood sugars remain uncontrolled will consider endocrinology consult. #Diet Diet patient is currently nothing by mouth until swollow evaluation can be passed. At the rehab site the patient does have a nectar thick diet. #DVT prophylaxis Warfarin Monitor INR #Code DNR/DNI As Ranked By This Provider Problem List: 1. Cellulitis of leg, excluding foot 2. Sepsis 3. End stage renal disease 4. Crohn disease Core Measures/Miscellaneous Acute Coronary Syndrome ACS Diagnosis: No Cerebrovascular Accident CVA/TIA Diagnosis: No Congestive Heart Failure CHF Diagnosis: No Venous Thromboembolism VTE Risk Factors: Acute medical illness, Age > 40 VTE Prophylaxis Ordered Inpt: Pharm- Heparin No Mech VTE prophylaxis d/t: No contraindications No VTE Pharm Prophylaxis d/t: No contraindications VTE Diagnosis: No VTE Type: NONE VTE Confirmed by (Test): NONE Severe Sepsis Severe Sepsis Present: No Septic Shock Septic Shock Present: No Miscellaneous Documentation Attending Case Discussed With: DEBBIE SPENCER MD Primary Care Physician: WAYNE HUGO MD Patient sees these Specialists NA Level of Patient Care: Telemetry ALEJANDRAROGER SIM 08/28/161957: General Information and HPI Allergies/Medications Home Med list Aspirin (Ecotrin*) 81 MG TABLET.DR 1 TAB PO DAILY hEART hEALTH Atorvastatin Calcium 40 MG TABLET 1 TAB PO DAILY HIGH LIPIDS B Complex & C No.20/Folic Acid (Nephrocaps Softgel) 1 MG CAPSULE 1 CAP PO DAILY SUPPLEMENT Calcitriol (Rocaltrol) 0.25 MCG CAPSULE 1 CAP PO DAILY KIDNEYS (Reported) Calcium Carbonate/Vitamin D3 (Os-Vishal 500+D3 Caplet) 500 MG-600 TABLET 1 TAB PO TID SUPPLEMENT (Reported) Carvedilol 25 MG TABLET 1 TAB PO BID DIRECTED (Reported) Cyanocobalamin (Vitamin B-12) 1,000 MCG TABLET 1 TAB PO DAILY SUPPLEMENT ( Reported) Ferrous Sulfate 325 MG (65 MG IRON) TABLET 1 TAB PO TID SUPPLEMENT (Reported) Guaifenesin (Mucinex) 600 MG TAB.ER.12H 1 TAB PO BID cONGESTION Insulin Aspart (Novolog) 100 UNIT/ML VIAL 0 UNITS SC SEE ADMIN CRITERIA BEFORE MEALS Blood Insulin Sugar Units <80 0 80-99 0 100-150 4 151-200 5 201-250 6 251-300 7 301-350 8 351-400 9 >400 Call MD AT BEDTIME Blood Insulin Sugar Units <80 0 81-100 0 101-200 0 201-250 0 251-300 2 301-350 3 351-400 4 >400 Call Doctor, 5 units Insulin Detemir (Levemir) 100 UNIT/ML VIAL 5 UNITS SC DAILY diabetes Nephro-Vitamins (Nephro-Arthur Tablet) 0.8 MG TABLET 1 TAB PO DAILY kidney Omeprazole Magnesium (Prilosec Otc) 20 MG TABLET.DR 2 TAB PO DAILY gerd Oxycodone HCl/Acetaminophen (Percocet 5-325 MG Tablet) 5 MG-325 MG TABLET 2 TAB PO Q8P PRN PAIN SCALE 4-6 (MODERATE) Prednisone 5 MG TABLET 1 TAB PO DAILY Adrenals Sevelamer Carbonate (Renvela) 800 MG TABLET 1 TAB PO TIDWM KIDNEYS (Reported) RESTART WHEN PHOS LEVEL >3.5 Sodium Chloride (Saline Nasal Ramer) 0.65 % SPRAY 1 SPRAY NASB 4 TIMES/DAY PRN dRY NOSE Sodium Hypochlorite (Dakin's) 0.5 % SOLUTION 1 CHAITANYA TOP BID skin Resident Review Statement Other Findings: Mr. Marvin is a 75-year-old male was BIBA from rehab, when she was found hypotenssive and slightly confused. initial fluid resuscitation did not improve the blood pressure and he was transferred to [facility]. patient has past medical history antiphospholipid antibody syndrome, chronic right upper extremity deep vein thrombosis on Coumadin daily, hypertension, diabetes, chronic kidney disease stage V, severe peripheral vascular disease, left lower extremity necrotising nonhealing ulcers and history of pseudomonal cellulitis, Crohn's disease status post bowel resection and chronic prednisone therapy, kidney stones status post lithotripsy, right toes amputation, femoropopliteal bypass surgery, Subglottic edema and acute respiratory failure which required ICU admission in May 2016, Most of the information was obtained from his who presented at the bedside. According to his , during her last visit yesterday morning patient was as his normal state of health. Had dialysis yesterday and today when she saw the patient he was " out". Patient was complaining of suprapubic pain and not having appetite and being weak. His blood pressure was found to be on 70s over 40s. Patient felt nauseous and vomited 3 times with no blood mostly ingested food. However patient denies any chest pain, palpitation, lightheadedness, dizziness, shortness of breat, Fever, chills. his initial blood pressure was 79/49. Patient was started on IV fluid (received 2 L), and empiric antibiotic( vancomycin and ceftazidime). review of system: patient is complaining of suprapubic pain, and weakness and loss of appetite. Pertinent findings physical exam: alert and oriented 3 in no acute distress, no JVD;site of catheter was examined no erythema no induration, lungs are clear, S1-S2 no murmur, suprapubic abdominal tenderness no guarding no rebound; chronic nonhealing wounds of left lower extremity, and wound on posterior aspect of right thigh ( suspicious for nephrocalcinosis; biopsy was taken last time in [facility] results). Urinalysis:cloudy, WBC, few epithelial cells Urine culture and blood cultures are pending WBC 12.8 with 83 percent granulocytes no bandemia, Platelet count 411, hemoglobin 10.1 hematocrit 32.2; sodium 140 potassium 4.6, creatinine 2.9, proBNP 15,600, first lactic acid 3.8 First set of troponin 0.07 IMPRESSION: Distended gallbladder with cholelithiasis without gallbladder wall thickening or pericholecystic fluid. EKG: Assessment 75-year-old gentleman with significant past medical Hx and multiple comorbidities was admitted for sepsis. List of problems #1 sepsis with source UTI vs colithis in the setting of Crohns disease. Patient refused line placement and aggressive treatment. ICU admission was changed to telemetry admission.Normal ejection fraction 50-55%. * Telemetry * Check Vs Q2h X 3 times * Continue IV hydration- received 2 later and said these are is hanging * continue Vanco mycin IV and ceftazidime: Patient is from rehabilitation facility and had a history of soft tissue infection with Pseudomonas * transplant lactic acid every 3 hours * Hold antihypertensive medications * elevated proBNP- possibly as a result of low blood pressure (demand ischemia) * Repeat troponin in 6 hours-at 9 PM and ekg * follow urine and blood cultures * Distended gallbladder with cholelithiasis: Abdominal US * follow Vanco lvl in the am * Vanco- Vanco hemodialysis protocol - should be arranged between am team and pharmacy * Ceftazidime- renal- 1 Gr Q24 h * IV FLAGYL 500 mg Q8 daily * C. diff screening #2 End Stage Renal disease on hemodialysis * On //FRIDAY schedule from [facility] Data cath * consult nephrology in the a.m. #3 APA syndrome and RUP DVT on coumadine * INR is pending * Check daily INR and adjust Coumadin #4 Necrotizing nonhealing ulcers on left lower extremity r/o calcyphylaxis * wound consult in the a.m. * Daily dressing #5 Chronic disease anemia * no active treatment #6 History of Crohn's disease on chronic steroids for 50 years * hold prednisone now; assess in the morning by a.m. team #7 Aspiration pneumonia: * per D/C from [facility] on chopped/nectar diet. #8 Hx of Dm * NPO SS DNR/DNI Subcutaneous heparin for DVT prophylaxis DEBBIE SPENCER 08/29/16 0513: Attending MD Review Statement Attending Statement Attending MD Statement: examined this patient, discuss w/resident/PA/ART DISPLAY MAKER, agreed w/resident/PA/ART DISPLAY MAKER, discussed with family, reviewed EMR data (avail), reviewed images, amended to note Attending Assessment/Plan: Chief complaint: Altered mental status PMHx: DM 2, calciphylaxis, antiphospholipid syndrome, chronic DVT, end-stage renal disease, Crohn's disease s/p surgery. Patient was recently discharged on August 21 to [facility]. Patient had extensive hospital stay with recently started hemodialysis , with tunneled AshSplit catheter on right side , and right-sided AV fistula yet to mature. He was also found to have calciphylaxis, aspiration pneumonia, and Vanita in urine which was treated. Patient was apparently all right in [facility]. Patient underwent HD yesterday, did not see him after it but when she visited him today, he was very lethargic almost obtunded. Blood pressure was checked which was 74/40, patient received 1 L NS in [facility], and was sent to ER. also mentioned that patient gets intermittently low blood pressure while or after dialysis, but this time it was persistently low. Patient was complaining of nausea, abdominal pain. He had 3 episodes of vomiting, and recurrent diarrhea. Patient has chronic diarrhea according to but this is different than his baseline. No blood in vomiting or stool. Vitals: T max 97.6, HR 88 to 108, RR 12-16, BP at presentation 79/49, improved to 100/57, dropped again to 84/54. Saturating well on room air. On exam a O 2, not oriented in time, lethargic, neck supple, mucosa dry, no lymphadenopathy, CVS: S1-S2, RRR. RS: Clear to auscultate, decreased on bases. Poor efforts on deep inspiration, abdomen: Soft, diffuse tenderness more so in suprapubic area, Wilcox's negative, bowel sounds present. No dependent edema, no focal neurological deficits. Labs: WBC 12.8 with neutrophils 83%, hemoglobin 10.1, platelets 411, BUN 18, creatinine 2.9, lactate 3.8, anion gap 12, proBNP 15,600. UA positive for large leukocyte esterase. CXR: ? No acute processes CT abdomen and pelvis without contrast: Distended gallbladder with cholelithiasis without gallbladder wall thickening or pericholecystic fluid. Small left pleural effusion. A and P #1 hypotension : Sepsis versus hypovolemia. Patient underwent Can insertion, and had purulent cloudy urine output positive for leukocyte esterase. Patient has some leukocytosis but has been afebrile, he has some suprapubic tenderness. Meanwhile patient also had vomiting and watery diarrhea in front of me in ER. This is more than his usual according to . CT abdomen and pelvis obtained. Patient had history of Crohn's disease and underwent cholectomy and the anastomosis. Patient received antibiotics in his previous hospitalization, C. difficile stool culture sent, IV Flagyl started. Patient also received IV vancomycin and Ceftaz in ER for suspected healthcare associated infections as patient's previous extensive hospitalization and recent [facility] stay. I also examined his wound on left lower extremity with exposed muscles and tendon but does not appear infected. He has stage II pressure ulcer on sacrum, which is clean and not infected. Multiple calciphylaxis lesions on lower extremity without any signs of inflammation. Need to Reevaluate need off vancomycin and Ceftaz according to cultures, a.m. labs, blood pressure and temperature spike, and dialysis. Continue metronidazole, follow C. difficile. Blood pressure responded to IV fluids, lactate trending down. Repeat lactate, follow urine culture, blood culture. Trend troponin. Given his hypotensive state and patient being on HD for ESRD, I discussed central line and pressors with patient and patient's . They are very clear about goal of care being DNR, DNI, no central line, no pressors. Given his long-term steroid use, random cortisol level was obtained, and given one dose of stress dose of hydrocortisone. Hold Coreg, consider decreasing dose of Coreg upon discharge as patient is getting persistently hypotensive while in dialysis according to his . # 2 : GB distention: Obtain right upper quadrant ultrasound # 3 history of DVT and antiphospholipid syndrome : Patient currently on warfarin , check INR, need to dose warfarin accordingly. # 4 patient had multiple PVCs in ER on telemetry : Check magnesium and replace if required # 5 ESRD on HD consult nephrology in a.m. # 6 DM 2: Sliding scale insulin for nothing by mouth. # 7 DVT prophylaxis : Patient currently on warfarin, check INR TTS 30 min.
[2016-08-28] MEDS ORDERED: CARVEDILOL25 M1 PO (21:13)
--- NOTE | 2016-08-28 23:48 | CT SCAN REPORT ---
EXAMINATION: CT ABDOMEN AND PELVIS WITHOUT CONTRAST CLINICAL INFORMATION: Abdominal pain, nausea, vomiting. COMPARISON: 07/24/2016. TECHNIQUE: Contiguous axial thin section helical images of the abdomen and pelvis were performed without oral or IV contrast. The data set was reformatted in the coronal and sagittal planes and reviewed on an independent workstation. DLP: 396 mGy-cm. FINDINGS: There is a small left pleural effusion. There is mild dependent bibasilar atelectasis.. The visualized portions of the heart are unremarkable. The liver is of normal size and attenuation without focal lesions nor intrahepatic biliary ductal dilation. The gallbladder is distended. There are a few small layering calculi. There is no gallbladder wall thickening or pericholecystic fluid. The spleen, pancreas, adrenal glands are unremarkable. Both kidneys are of normal size and attenuation without hydronephrosis or nephrolithiasis. There is a 5 cm cyst within the upper pole of the left kidney. There is no abdominal free fluid. There is neither mesenteric nor retroperitoneal lymphadenopathy. There are diffuse vascular calcifications present. Normal unopacified loops of small and large bowel are identified. There is no pelvic free fluid. A Can catheter is present within the decompressed urinary bladder. There is neither pelvic nor inguinal lymphadenopathy. Bone windows: Neither sclerotic nor lytic bone lesions are identified. A left hip prosthesis is intact. IMPRESSION: Distended gallbladder with cholelithiasis without gallbladder wall thickening or pericholecystic fluid. Small left pleural effusion.
[2016-08-29] VITALS (9 sets, daily range): BP systolic 84–112; BP diastolic 40–54
--- NOTE | 2016-08-29 05:18 | Admission Certification ---
Admission Certification Certification Statement - As attending physician, I certify that at the time of - admission, based on clinical presentation, severity of - symptoms, need for further diagnostic testing and - therapeutic interventions, and risk of adverse outcomes - without in-hospital treatment, in my clinical assessment, - this patient requires an acute hospital stay for a minimum - of two nights or longer. I have also considered psychsocial - factors such as support system, advanced age, financial - issues, cognitive issues, and failed out-patient treatments, - past re-admission history, safety of patient, and lack of - compliance as applicable. Specific rationale supporting this admission is: Hypotension, diarrhea
[2016-08-29 08:15] LABS: ABSOLUTE BASOPHIL COUNT 0 /CUMM (0.0-0.2); ABSOLUTE EOSINOPHIL COUNT 0 /CUMM (0.0-0.7); ABSOLUTE GRANULOCYTE CT 9.9 /CUMM (1.4-6.5); ABSOLUTE LYMPH COUNT 0.4 /CUMM (1.2-3.4); ABSOLUTE MONOCYTE COUNT 0.4 /CUMM (0.10-0.60); BASOPHIL % 0.1 % (0.0-2.0); EOSINOPHIL % 0.1 % (0-5); GRANULOCYTE % 92.3 % (42.2-75.2); HEMATOCRIT 28.3 % (42-52); MEAN CORPUSCULAR HGB 28.7 PG (27.0-31.0); MEAN CORPUSCULAR HGB CONC 31.4 G/DL (33.0-37.0); MEAN CORPUSCULAR VOLUME 91.4 FL (80.0-94.0); PLATELET COUNT 328 /CUMM (130-400); RBC DISTRIBUTION WIDTH 22.4 % (11.5-14.5); RED BLOOD CELL CT 3.09 /CUMM (4.70-6.10); WHITE BLOOD CELL COUNT 10.7 /CUMM (4.8-10.8)
[2016-08-29 08:48] LABS: PT 68.5 SEC (9.4-12.5)
--- NOTE | 2016-08-29 11:30 | PN- Housestaff ---
FELICITA HEATH,MINAL 08/29/16 1130: Subjective Follow-up For: Septicemia Shock sec to C difficle or cholangitis under evaluation Complaints: pain abd, Nausea, diarhhea Tele-Events Since Last Visit: No any overnight event Subjective: Patient is seen and examined at the bed side. He was responding to verbal command, but having fluctuating level of consciouness. According to he is still having abd pain but lesser than yesterday. According to the nurse, he had 4 -5 bowel movements in the night, but they are watery, foul smelling. Denies vomiting, nausea, fever, chills. Review of Systems Constitutional: Reports: malaise, weakness. Denies: fever. Cardiovascular: Denies: chest pain. Gastrointestinal: Reports: abdominal pain, diarrhea. Denies: nausea, bloody stool, vomiting. Comments: Not able to get all the information as patient was drowsy, although responding to verbal command. Most of the information taken from Objective Last 24 Hrs of Vital Signs/I&O Vital Signs Date Time Temp Pulse Resp B/P Pulse O2 O2 Flow FiO2 Ox Delivery Rate 08/29 1229 97.3 94 18 112/50 100 Nasal 2.0L Cannula 08/29 1045 97.7 94 18 104/50 95 Nasal 2.0L Cannula 08/29 0822 97.4 102 20 90/48 98 Nasal 2.0L Cannula 08/29 0800 Nasal 2.0L Cannula 08/29 0554 98.0 100 20 107/52 95 Nasal 2.0L Cannula 08/29 0400 98.6 101 20 92/45 97 Nasal 2.0L Cannula 08/29 0332 98 Nasal 2.0L Cannula 08/29 0220 98.9 105 20 98/52 97 Nasal Cannula 08/29 0047 92 Nasal 2.0L Cannula 08/29 0047 87.9 108 20 84/54 92 Nasal 2.0L Cannula 08/28 2318 97 16 105/53 02/01 2217 96/57 / 2156 97.6 90 16 100 Nasal 2.0L Cannula 08/28 2119 96 100/55 02/01 2030 90 92/57 02/01 1930 94 124/58 02/ 1900 88 103/54 02/01 1836 97.2 86 16 104/00 100 Room Air 08/28 1801 86 89/53 Intake & Output 08/29 1600 08/29 0800 08/29 0000 Intake Total 1050 1300 Output Total 5 33 Balance 1045 1267 Intake, IV 1050 1300 Number 1 Bowel Movements Output, Stool 3 Output, Urine 5 30 Patient 64.07 kg 89.358 kg Weight Physical Exam General Appearance: No Acute Distress, fluctuating level of consiouness, although responded to verbal command Skin: No Rashes, No Breakdown HEENT: Atraumatic, PERRLA, EOMI Neck: Supple, No JVD Cardiovascular: Regular Rate, Normal S1, Normal S2 Lungs: Clear to Auscultation, Normal Air Movement Abdomen: Normal Bowel Sounds, Soft, Mild tender Neurological: fluctuating level of consciouness Extremities: right upper arm A-V graft is not working Vascular: Normal Pulses, Pulses Symmetrical Assessment/Plan Assessment: Mr. Marvin is a 76-year-old gentleman with past medical history of DVT on Coumadin therapy, hypertension, diabetes, CKD stage V currently on hemodialysis, peripheral vascular disease, left lower extremity necrotizing nonhealing ulcers, history of cellulitis with Pseudomonas. Crohn's disease status post bowel resection and on chronic prednisone therapy, femoral-popliteal bypass surgery, and several glottic edema as well as acute respiratory failure which required an ICU admission in May 2016 who presented to the emergency department from a rehabilitation facility this afternoon afternoon due to decreased mentation, lethargy and hypotension. Patient was in his usual state of health until the early hours 08/28/2016. During afternoon rounds at short-term rehabilitation the patient was found to be pale lethargic and stated that he did not feel well. Communication form states that he had one episode of emesis. Approximately 100 cc. Blood pressure taken at this time was 60/40. Repeat blood pressure after PO fluids showed 70/50. Due to hypotension patient was sent into the ER after 911 was called. 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 Plan - * Discussed with Dr Simeon, we can give IV fluid 50cc/hr and if needed than can give boluses of 200cc. * We will start him of 5% D/1/2NS at rate of 50cc/hr * We will also keep Pt NPO for HIDA scan and as he have fluctuating mentation * he failed swallow evaluation today, we will repeat it tmr * As discussed with Dr Harden, there is more risk of C difficle, due to frequent hospitalization,and also hx of c difficile 3 yrs ago. We will start patient on Vancomycin 1gm IV after each dialysis and also Ceftazidime and start him on Vanco 250 Q6 PO. * We will also contact Dr Guerra as fistula is not working, and have his opinion * PT/INR- 6.67 is high, he was on coumadin, alternate day, so we will hold it for now, repeat it tmr and watch for bleeding. If there is bleeding than we will consider FFP,VitK. * Vitals every shift * Continue to meausure Bl sugar every 6 hrly and adjust Novalog according to sliding scale. * Code status - DNR/DNI * DVT prophyllaxis - ALPS Problem List: 1. Diarrhea 2. Dehydration 3. Sepsis 4. Antiphospholipid antibody syndrome 5. CKD (chronic kidney disease) Pain Ratin (cannt be assesed) Pain Location: abdoman Pain Goal: Remain pain free Pain Plan: Mild, avoid NSAIDS Tomorrow's Labs & Rationales: cbc,PT/INR DVT/Prophylaxis: mechanical, pharmacological THEO HEATH,AYUSH 08/29/16 1454: Attending MD Review Statement Attending Statement Attending MD Statement: examined this patient, discuss w/resident/PA/[employer], agreed w/resident/PA/[employer], discussed with family, reviewed EMR data (avail), discussed with nursing, discussed with case mgmt, reviewed images Attending Assessment/Plan: This is an extremely complex 75-year-old male with ESRD recently started on hemodialysis, calciphylaxis, antiphospholipid antibody syndrome on Coumadin who had a very extended stay here from June 26 to August 21 and was just discharged on August 21. He returns with acute hypotension, leukocytosis with a left shift, diarrhea, bandemia and a CT scan that shows cholelithiasis. The biggest issue right now is whether this is severe C. difficile colitis as evidenced by hypotension and bandemia or whether we are dealing with a biliary issue that's giving him the bandemia. We spoke at length to Dr. Harden. We are going to get a HIDA scan today to see whether he has cholecystitis. If the HIDA scan is negative, then will stop the Vanco ceftaz and Flagyl. We are going to keep him on oral vancomycin as if we blame the hypotension and bandemia on the CT, he qualifies as a severe C. difficile and we treat the colitis with oral vanco. He has an elevated INR, he has no signs of bleeding and has had antiphospholipid antibody syndrome. I think his coagulopathy is from poor by mouth intake and diarrhea and will allow it to drift down slowly.
--- NOTE | 2016-08-29 12:09 | ULTRASOUND REPORT ---
EXAMINATION: US ABDOMEN LIMITED CLINICAL INFORMATION: Pain, cholelithiasis and distended gallbladder seen on CT scan. Evaluate for gallbladder pathology. COMPARISON: CT of the abdomen and pelvis 08/28/2016. TECHNIQUE: Real-time imaging of the right upper quadrant abdominal viscera. FINDINGS: PANCREAS: Normal. LIVER: Normal. The liver demonstrates normal size, contour and echogenicity. No focal lesion or intrahepatic biliary duct dilatation. GALLBLADDER: The gallbladder is quite distended (measuring 17.3 x 6.3 x 5.2 cm) with a few small stones in the fundus. There is mild gallbladder wall thickening (0.4 cm). There is no edema in the wall, pericholecystic fluid, or tenderness over the gallbladder. COMMON BILE DUCT: Normal in caliber measuring 0.4 cm in diameter. RIGHT KIDNEY: Atrophic with diffuse cortical thinning. No hydronephrosis. No renal calculi or focal parenchymal lesions. There are 2 small exophytic cysts in the upper pole measuring 1.8 and 0.7 cm. The kidney measures 9.4 cm in maximum dimension. FREE FLUID: None. IMPRESSION: 1. Markedly distended gallbladder with mild gallbladder wall thickening and a few small stones. Although there is no tenderness over the gallbladder, acute cholecystitis cannot be excluded. 2. Atrophic right kidney with diffuse cortical thinning and 2 small exophytic cysts.
--- NOTE | 2016-08-29 14:44 | Cons- Infect Disease ---
General Information and HPI Consulting Request Date of Consult: 08/29/16 Requested By: AYUSH VENEGAS MD Reason for Consult: Rule out sepsis Source of Information: patient, old records History of Present Illness: This is a 75-year-old man with diabetes, end-stage renal disease, begun on dialysis on his recent admission, peripheral vascular disease, status post right TMA, Crohn's disease, maintained on prednisone, with chronic diarrhea, antiphospholipid syndrome, with a chronic DVT of the right lower extremity and a more recently diagnosed DVT of the right upper extremity, with a chronic nonhealing left calf ulcer, status post multiple debridements, status post a recent 2 month hospitalization at [place], initially for stridor secondary to vocal cord paralysis, with his hospital course complicated by chronic pain secondary to the left leg ulcer, with debridement performed, new necrotic skin lesions on his lower extremities, 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 On admission he was afebrile with a blood pressure of 79/49. Laboratory data revealed a white blood cell count of 13,000, with 71 segs and 7 bands, BUN/creatinine 18 and 2.9, lactic acid 3.8, with normal liver enzymes. Urinalysis 5-10 RBC/packed WBCs. CT of the abdomen and pelvis revealed a distended gallbladder with cholelithiasis. Chest x-ray was negative. He was begun on Vancomycin, Flagyl and Ceftazidime and 1 dose of Hydrocortisone and has remained afebrile overnight. He has continued to have diarrhea, but has had no further vomiting and at present denies any nausea or abdominal pain. He does report generalized pain, particularly over the necrotic ulcers. Allergies/Medications Allergies: Coded Allergies: Sulfa (Sulfonamide Antibiotics) (Mild, HIVES 06/15/16) Home Med List: Aspirin (Ecotrin*) 81 MG TABLET.DR 1 TAB PO DAILY hEART hEALTH Atorvastatin Calcium 40 MG TABLET 1 TAB PO DAILY HIGH LIPIDS B Complex & C No.20/Folic Acid (Nephrocaps Softgel) 1 MG CAPSULE 1 CAP PO DAILY SUPPLEMENT Calcitriol (Rocaltrol) 0.25 MCG CAPSULE 1 CAP PO DAILY KIDNEYS (Reported) Calcium Carbonate/Vitamin D3 (Os-Vishal 500+D3 Caplet) 500 MG-600 TABLET 1 TAB PO TID SUPPLEMENT (Reported) Carvedilol 25 MG TABLET 1 TAB PO BID DIRECTED (Reported) Cyanocobalamin (Vitamin B-12) 1,000 MCG TABLET 1 TAB PO DAILY SUPPLEMENT ( Reported) Ferrous Sulfate 325 MG (65 MG IRON) TABLET 1 TAB PO TID SUPPLEMENT (Reported) Guaifenesin (Mucinex) 600 MG TAB.ER.12H 1 TAB PO BID cONGESTION Insulin Aspart (Novolog) 100 UNIT/ML VIAL 0 UNITS SC SEE ADMIN CRITERIA BEFORE MEALS Blood Insulin Sugar Units <80 0 80-99 0 100-150 4 151-200 5 201-250 6 251-300 7 301-350 8 351-400 9 >400 Call MD AT BEDTIME Blood Insulin Sugar Units <80 0 81-100 0 101-200 0 201-250 0 251-300 2 301-350 3 351-400 4 >400 Call Doctor, 5 units Insulin Detemir (Levemir) 100 UNIT/ML VIAL 5 UNITS SC DAILY diabetes Nephro-Vitamins (Nephro-Arthur Tablet) 0.8 MG TABLET 1 TAB PO DAILY kidney Omeprazole Magnesium (Prilosec Otc) 20 MG TABLET.DR 2 TAB PO DAILY gerd Oxycodone HCl/Acetaminophen (Percocet 5-325 MG Tablet) 5 MG-325 MG TABLET 2 TAB PO Q8P PRN PAIN SCALE 4-6 (MODERATE) Prednisone 5 MG TABLET 1 TAB PO DAILY Adrenals Sevelamer Carbonate (Renvela) 800 MG TABLET 1 TAB PO TIDWM KIDNEYS (Reported) RESTART WHEN PHOS LEVEL >3.5 Sodium Chloride (Saline Nasal [place]) 0.65 % SPRAY 1 SPRAY NASB 4 TIMES/DAY PRN dRY NOSE Sodium Hypochlorite (Dakin's) 0.5 % SOLUTION 1 CHAITANYA TOP BID skin Past History Travel History Traveled to [place] past 21 day No Medical History Neurological: NONE EENT: NONE Cardiovascular: PVD, DVT Respiratory: pneumonia Gastrointestinal: Crohn's disease Hepatic: NONE Renal: nephrolithiasis, CKD Musculoskeletal: VASCULAR OCCLUSION RIGHT LEG RIGHT PATELLA FRACTURE WITH orif NON HEALING WOUNDS R. 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 Home Who Do You Live With? spouse Services at Home: None Primary Language: Tam[place] Smoking Status: Never Smoked Functional Ability ADLs Independent: dressing, eating, toileting, bathing. Ambulation: walker IADLs Needs Assist: shopping, housework, finances, food prep, telephone, transportation, medication admin. Review of Systems Review of Systems Cardiovascular: Denies: chest pain. Respiratory: Denies: cough, short of breath. Genitourinary: Reports: dysuria. All Other Systems: Reviewed and Negative Exam & Diagnostic Data Last 24 Hrs of Vital Signs/I&O Vital Signs Date Time Temp Pulse Resp B/P Pulse O2 O2 Flow FiO2 Ox Delivery Rate 08/29 1229 97.3 94 18 112/50 100 Nasal 2.0L Cannula 08/29 1045 97.7 94 18 104/50 95 Nasal 2.0L Cannula 08/29 0822 97.4 102 20 90/48 98 Nasal 2.0L Cannula 08/29 0800 Nasal 2.0L Cannula 08/29 0554 98.0 100 20 107/52 95 Nasal 2.0L Cannula 08/29 0400 98.6 101 20 92/45 97 Nasal 2.0L Cannula 08/29 0332 98 Nasal 2.0L Cannula 08/29 0220 98.9 105 20 98/52 97 Nasal Cannula 08/29 0047 92 Nasal 2.0L Cannula 08/29 0047 87.9 108 20 84/54 92 Nasal 2.0L Cannula 08/28 2318 97 16 105/53 02/ 2217 96/57 02 2156 97.6 90 16 100 Nasal 2.0L Cannula 08/28 2119 96 100/55 08/28 2030 90 92/57 08/28 1930 94 124/58 08/28 1900 88 103/54 08/28 1836 97.2 86 16 104/00 100 Room Air 08/28 1801 86 89/53 08/28 1746 86 16 105/57 / 1740 100/00 08/28 1650 82 78/00 08/28 1554 84 79/51 08/28 1530 Room Air 08/28 1527 83 12 81/51 08/28 1448 Room Air Room Air 08/28 1429 96.9 101 16 79/49 100 Nasal 2.0L Cannula Intake & Output 08/29 1600 08/29 0800 08/29 0000 Intake Total 1300 Output Total 33 Balance 1267 Intake, IV 1300 Number 1 Bowel Movements Output, Stool 3 Output, Urine 30 Patient 141 lb 197 lb Weight Physical Exam Other Physical Findings: He is lethargic but arousable in no acute distress. He is afebrile. Skin necrotic ulcers on the left thigh, lateral aspect of the right calf, posterior aspect of the left calf and dorsum of the left foot, tender to palpation with no surrounding erythema. HEENT exam is negative. Neck is supple with no adenopathy. Chest tunneled catheter in the right upper chest with no inflammation at the site. Lungs crackles at the right base. Heart regular rhythm with no murmur. Abdomen is soft, mildly tender in the epigastrium, with no guarding or rebound, with positive bowel sounds. Back no CVA tenderness; duoderm dressing over the sacrum. Extremities necrotic lesions as noted above; right upper extremity fistula, with no bruit or thrill and with no surrounding inflammation; no cyanosis, clubbing or edema. Neuro is without focality. Can catheter is in place. Last 24 Hours of Lab Results: Laboratory Tests 08/29 08/29 08/29 1255 0824 0655 Chemistry BUN (9 - 20 mg/dL) 23 H Creatinine (0.7 - 1.2 mg/dL) 3.6 H Estimated GFR (>60 ml/min) 17 L Glucose (65 - 99 mg/dL) 115 H Lactic Acid (0.7 - 2.1 mmol/L) 1.3 Calcium (8.4 - 10.2 mg/dL) 8.1 L Phosphorus (2.5 - 4.5 mg/dL) 4.8 H Magnesium (1.6 - 2.3 mg/dL) 1.6 Albumin (3.5 - 5.0 g/dL) 2.1 L Serology Hep Bs Antigen (NONREACTIVE) NONREACTIVE Cancelled Hep Bs Antibody (NONREACTIVE) NONREACTIVE Cancelled 08/29 08/29 08/29 0655 0055 0055 Chemistry Sodium (137 - 145 mmol/L) 138 Potassium (3.5 - 5.1 mmol/L) 4.6 Chloride (98 - 107 mmol/L) 110 H Carbon Dioxide (22 - 30 mmol/L) 17 L Anion Gap (5 - 16) 11 BUN (9 - 20 mg/dL) 22 H Creatinine (0.7 - 1.2 mg/dL) 3.5 H Estimated GFR (>60 ml/min) 17 L BUN/Creatinine Ratio (7 - 25 %) 6.3 L Lactic Acid (0.7 - 2.1 mmol/L) 2.5 H Troponin I (<0.11 ng/ml) 0.08 Coagulation PT (9.4 - 12.5 SEC) 68.5 *H INR (0.90 - 1.17) 6.65 *H Hematology CBC w Diff MAN DIFF ORDERED WBC (4.8 - 10.8 /CUMM) 10.7 RBC (4.70 - 6.10 /CUMM) 3.09 L Hgb (14.0 - 18.0 G/DL) 8.9 L Hct (42 - 52 %) 28.3 L MCV (80.0 - 94.0 FL) 91.4 MCH (27.0 - 31.0 PG) 28.7 RDW (11.5 - 14.5 %) 22.4 H Plt Count (130 - 400 /CUMM) 328 MPV (7.4 - 10.4 FL) 9.0 Gran % (42.2 - 75.2 %) 92.3 H Lymphocytes % (20.5 - 51.1 %) 3.8 L Monocytes % (1.7 - 9.3 %) 3.7 Eosinophils % (0 - 5 %) 0.1 Basophils % (0.0 - 2.0 %) 0.1 Absolute Granulocytes (1.4 - 6.5 /CUMM) 9.9 H Segmented Neutrophils (42.2 - 75.2 %) 58 Band Neutrophils (0.0 - 5.0 %) 33 H Absolute Lymphocytes (1.2 - 3.4 /CUMM) 0.4 L Lymphocytes (20.5 - 51.1 %) 7 L Absolute Monocytes (0.10 - 0.60 /CUMM) 0.4 Absolute Eosinophils (0.0 - 0.7 /CUMM) 0 Absolute Basophils (0.0 - 0.2 /CUMM) 0 Myelocytes (0 - 0 %) 2 H Platelet Estimate (ADEQUATE) ADEQUATE Polychromasia 1+ Hypochromic-Microcytic 2+ Poikilocytosis 1+ Anisocytosis 1+ PUBS MCHC (33.0 - 37.0 G/DL) 31.4 L Toxicology Random Vancomycin (ug/ml) 10.0 08/28 08/28 1759 1735 Chemistry Lactic Acid Cancelled Urines Urinalysis LIGHT H Urine Color (YEL,AMB,STR) YEL Urine Clarity (CLEAR) CLDY H Urine pH (5.0 - 8.0) 6.5 Ur Specific [place] (1.001 - 1.035) 1.025 Urine Protein (NEG,<30 MG/DL) 100 H Urine Ketones (NEG) NEG Urine Nitrite (NEG) NEG Urine Bilirubin (NEG) NEG Urine Urobilinogen (0.1 - 1.0 EU/dl) 0.2 Ur Leukocyte Esterase (NEG) LARGE H Ur Microscopic SEDIMENT EXAMINED Urine RBC (0 - 5 /HPF) 5-10 H Urine WBC (0 - 2 /HPF) PACKD H Ur Epithelial Cells (NONE,FEW) FEW Hyaline Casts (0/LPF) 1-3 H Urine Mucus (FEW,NONE) MOD H Urine Hemoglobin (NEG) LARGE H Urine Glucose (N MG/DL) NEG 08/28 08/28 1501 1436 Chemistry Sodium (137 - 145 mmol/L) 140 Potassium (3.5 - 5.1 mmol/L) 4.6 Chloride (98 - 107 mmol/L) 105 Carbon Dioxide (22 - 30 mmol/L) 22 Anion Gap (5 - 16) 12 BUN (9 - 20 mg/dL) 18 Creatinine (0.7 - 1.2 mg/dL) 2.9 H Estimated GFR (>60 ml/min) 21 L BUN/Creatinine Ratio (7 - 25 %) 6.2 L Glucose (65 - 99 mg/dL) 131 H Lactic Acid (0.7 - 2.1 mmol/L) 3.8 H Calcium (8.4 - 10.2 mg/dL) 9.2 Magnesium (1.6 - 2.3 mg/dL) 1.5 L Total Bilirubin (0.2 - 1.3 mg/dL) 0.4 AST (17 - 59 U/L) 26 ALT (21 - 72 U/L) 29 Alkaline Phosphatase (< 127 U/L) 77 Troponin I (<0.11 ng/ml) 0.07 [id number]-[id number] Pept (<125 pg/mL) 39230 H Total Protein (6.3 - 8.2 g/dL) 5.8 L Albumin (3.5 - 5.0 g/dL) 2.5 L Globulin (1.9 - 4.2 gm/dL) 3.3 Albumin/Globulin Ratio (1.1 - 2.2 %) 0.8 L Coagulation PT Cancelled Cancelled INR Cancelled Cancelled D-Dimer Cancelled Hematology CBC w Diff MAN DIFF ORDERED WBC (4.8 - 10.8 /CUMM) 12.8 H RBC (4.70 - 6.10 /CUMM) 3.53 L Hgb (14.0 - 18.0 G/DL) 10.1 L Hct (42 - 52 %) 32.2 L MCV (80.0 - 94.0 FL) 91.4 MCH (27.0 - 31.0 PG) 28.6 RDW (11.5 - 14.5 %) 22.6 H Plt Count (130 - 400 /CUMM) 411 H MPV (7.4 - 10.4 FL) 8.4 Gran % (42.2 - 75.2 %) 83.1 H Lymphocytes % (20.5 - 51.1 %) 9.9 L Monocytes % (1.7 - 9.3 %) 6.1 Eosinophils % (0 - 5 %) 0.5 Basophils % (0.0 - 2.0 %) 0.4 Absolute Granulocytes (1.4 - 6.5 /CUMM) 10.6 H Segmented Neutrophils (42.2 - 75.2 %) 71 Band Neutrophils (0.0 - 5.0 %) 7 H Absolute Lymphocytes (1.2 - 3.4 /CUMM) 1.3 Lymphocytes (20.5 - 51.1 %) 13 L Monocytes (1.7 - 9.3 %) 8 Absolute Monocytes (0.10 - 0.60 /CUMM) 0.8 H Absolute Eosinophils (0.0 - 0.7 /CUMM) 0.1 Absolute Basophils (0.0 - 0.2 /CUMM) 0.1 Myelocytes (0 - 0 %) 1 H Platelet Estimate (ADEQUATE) ADEQUATE Polychromasia Hypochromic-Microcytic 1+ Anisocytosis 1+ PUBS MCHC (33.0 - 37.0 G/DL) 31.3 L Last 24 Hours of [place] Results: Blood culture 1 August 28 negative Urine culture August 28 negative Stool C. difficile August 28 negative Stool culture August 28 mixed boris Diagnostic Data Recent Imaging Findings: CT of the abdomen and pelvis without IV contrast August 28 reveals a distended gallbladder with cholelithiasis without gallbladder wall thickening or pericholecystic fluid and a small left pleural effusion Chest x-ray August 28, personally reviewed, negative Right upper quadrant ultrasound August 29 reveals a distended gallbladder with a few small stones in the fundus and mild gallbladder wall thickening with no edema in the wall or pericholecystic fluid Assessment/Plan Assessment/Plan Impression: This is a 75-year-old man with diabetes, Crohn's disease, maintained on steroids , antiphospholipid syndrome, with chronic DVTs of the right upper and right lower extremities, end-stage renal disease, recently begun on hemodialysis, and peripheral vascular disease, with chronic nonhealing ulcers of the lower extremities, status post a recent 2 month hospitalization, admitted on August 28 with the acute onset of vomiting, diarrhea, lethargy and hypotension, found on admission to be hypotensive, afebrile with a leukocytosis and bandemia. His clinical picture is consistent with sepsis particularly with increased bands on today's differential. Possible sources include C. difficile colitis, though his C. difficile toxin test is negative and the CT scan does not reveal colitis, and cholecystitis, given the distended and thick-walled gallbladder with cholelithiasis. A urinary tract infection is possible, with pyuria and chronic dysuria, though this seems less likely. He does not appear to have evidence for pneumonia with no respiratory symptoms and negative chest x-ray. His necrotic skin lesions do not appear infected. Suggestion: 1. Stool for PCR for C. difficile 2. Repeat blood culture 1 at dialysis 3. Would pursue HIDA scan 4. Remove Can catheter 5. Re-dose with Vancomycin 1 g IV 1 and Ceftazidime 1 g IV 1 after dialysis today 6. Would begin Vancomycin 125 mg po every 6 hours if able to take po 7. Continue Flagyl 500 mg IV every 8 hours pending above Consult Acknowledgment - Thank you for your consult request.
--- NOTE | 2016-08-29 17:23 | Cons- Nephrology ---
General Information and HPI Consulting Request Date of Consult: 08/29/16 Requested By: AYUSH VENEGAS MD Reason for Consult: ESRD; hypotension History of Present Illness: Mr. 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 He is now admitted because of altered mental status and hypotension which required aggressive fluid administration in the emergency department. His systolic blood pressure is now about 100 which appears to be fairly typical for him. There's been no chest pain or shortness of breath, no fever or chills and troponin levels have been within normal limits. Other pertinent lab data include a WBC of 13,000 with a left shift, lactic acid of 3.8, normal liver enzymes, pyuria, CT of the abdomen and pelvis revealing distended gallbladder with cholelithiasis but no wall thickening. Chest x-ray did not show evidence of an infiltrate. Treatment has thus far included vancomycin, Flagyl, ceftazidime and hydrocortisone. Per Infectious Disease recommendation, he has now also been started on oral vancomycin. HIDA scan has been ordered as has a stool for C. difficile. Past medical history is as noted above in detail Medications: See below Allergies: Sulfonamides Family history positive for antiphospholipid syndrome in his father and Crohn's disease in his mother. There is also family history of diabetes mellitus but not for ESRD. Social history: Former smoker, no history of alcohol abuse, currently at short- term rehabilitation but usually lives with his . Allergies/Medications Allergies: Coded Allergies: Sulfa (Sulfonamide Antibiotics) (Mild, HIVES 06/15/16) Home Med List: Aspirin (Ecotrin*) 81 MG TABLET.DR 1 TAB PO DAILY hEART hEALTH Atorvastatin Calcium 40 MG TABLET 1 TAB PO DAILY HIGH LIPIDS B Complex & C No.20/Folic Acid (Nephrocaps Softgel) 1 MG CAPSULE 1 CAP PO DAILY SUPPLEMENT Calcitriol (Rocaltrol) 0.25 MCG CAPSULE 1 CAP PO DAILY KIDNEYS (Reported) Calcium Carbonate/Vitamin D3 (Os-Vishal 500+D3 Caplet) 500 MG-600 TABLET 1 TAB PO TID SUPPLEMENT (Reported) Carvedilol 25 MG TABLET 1 TAB PO BID DIRECTED (Reported) Cyanocobalamin (Vitamin B-12) 1,000 MCG TABLET 1 TAB PO DAILY SUPPLEMENT ( Reported) Ferrous Sulfate 325 MG (65 MG IRON) TABLET 1 TAB PO TID SUPPLEMENT (Reported) Guaifenesin (Mucinex) 600 MG TAB.ER.12H 1 TAB PO BID cONGESTION Insulin Aspart (Novolog) 100 UNIT/ML VIAL 0 UNITS SC SEE ADMIN CRITERIA BEFORE MEALS Blood Insulin Sugar Units <80 0 80-99 0 100-150 4 151-200 5 201-250 6 251-300 7 301-350 8 351-400 9 >400 Call MD AT BEDTIME Blood Insulin Sugar Units <80 0 81-100 0 101-200 0 201-250 0 251-300 2 301-350 3 351-400 4 >400 Call Doctor, 5 units Insulin Detemir (Levemir) 100 UNIT/ML VIAL 5 UNITS SC DAILY diabetes Nephro-Vitamins (Nephro-Arthur Tablet) 0.8 MG TABLET 1 TAB PO DAILY kidney Omeprazole Magnesium (Prilosec Otc) 20 MG TABLET.DR 2 TAB PO DAILY gerd Oxycodone HCl/Acetaminophen (Percocet 5-325 MG Tablet) 5 MG-325 MG TABLET 2 TAB PO Q8P PRN PAIN SCALE 4-6 (MODERATE) Prednisone 5 MG TABLET 1 TAB PO DAILY Adrenals Sevelamer Carbonate (Renvela) 800 MG TABLET 1 TAB PO TIDWM KIDNEYS (Reported) RESTART WHEN PHOS LEVEL >3.5 Sodium Chloride (Saline Nasal [place]) 0.65 % SPRAY 1 SPRAY NASB 4 TIMES/DAY PRN dRY NOSE Sodium Hypochlorite (Dakin's) 0.5 % SOLUTION 1 CHAITANYA TOP BID skin Review of Systems Review of Systems Constitutional: Reports: malaise, weakness. EENTM: Reports: no symptoms. Cardiovascular: Reports: no symptoms. Respiratory: Reports: no symptoms. GI: Reports: diarrhea. Genitourinary: Reports: no symptoms. Musculoskeletal: Reports: back pain, muscle pain. Skin: Reports: lesions, lumps. Neurological/Psychological: Reports: cognitive dysfunction, confusion. Past History Travel History Traveled to [place] past 21 day No Medical History Neurological: NONE EENT: NONE Cardiovascular: PVD, DVT Respiratory: pneumonia Gastrointestinal: Crohn's disease Hepatic: NONE Renal: nephrolithiasis, CKD Musculoskeletal: VASCULAR OCCLUSION RIGHT LEG RIGHT PATELLA FRACTURE WITH orif NON HEALING WOUNDS R. 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 Home Who Do You Live With? spouse Services at Home: None Primary Language: Georgian Smoking Status: Never Smoked Functional Ability ADLs Independent: dressing, eating, toileting, bathing. Ambulation: walker IADLs Needs Assist: shopping, housework, finances, food prep, telephone, transportation, medication admin. Exam & Diagnostic Data Vital Signs and I&O Vital Signs Date Time Temp Pulse Resp B/P Pulse O2 O2 Flow FiO2 Ox Delivery Rate 08/29 1229 97.3 94 18 112/50 100 Nasal 2.0L Cannula 08/29 1045 97.7 94 18 104/50 95 Nasal 2.0L Cannula 08/29 0822 97.4 102 20 90/48 98 Nasal 2.0L Cannula 08/29 0800 Nasal 2.0L Cannula 08/29 0554 98.0 100 20 107/52 95 Nasal 2.0L Cannula 08/29 0400 98.6 101 20 92/45 97 Nasal 2.0L Cannula 08/29 0332 98 Nasal 2.0L Cannula 08/29 0220 98.9 105 20 98/52 97 Nasal Cannula 08/29 0047 92 Nasal 2.0L Cannula 08/29 0047 87.9 108 20 84/54 92 Nasal 2.0L Cannula 08/28 2318 97 16 105/53 02/01 2217 96/57 08/28 2156 97.6 90 16 100 Nasal 2.0L Cannula 08/28 2119 96 100/55 02/ 2030 90 92/57 02/ 1930 94 124/58 02/ 1900 88 103/54 02/ 1836 97.2 86 16 104/00 100 Room Air 08/28 1801 86 89/53 08/28 1746 86 16 105/57 08/28 1740 100/00 Intake & Output 08/29 1600 08/29 0400 08/28 1600 08/28 0400 08/27 1600 08/27 0400 Intake Total 2350 1000 Output Total 38 Balance 2312 1000 Intake, IV 2350 1000 Number 1 Bowel Movements Output, Stool 3 Output, Urine 35 Patient 141 lb 197 lb Weight Physical Exam: General: Well-developed white male in NAD Skin: No rash or jaundice; mottled, necrotic, tender areas noted on right lateral leg and medial aspect of left thigh, posterior aspect of the left calf and dorsum of the left foot HEENT: Conjunctivae pale, sclerae anicteric, mucous membranes moist Neck: Without masses or thyromegaly, no supraclavicular or cervical adenopathy; there is a right IJ tunneled dialysis catheter in place Chest: Clear anterolaterally Heart: Regular rate and rhythm without S3 or rub Abdomen: Soft and nontender without palpable masses or organomegaly Extremities: Lower extremity dressing intact; the right upper arm AVF is without pulse, thrill or bruit Neuro: Arousable, slightly confused, no asterixis or myoclonus Assessment/Plan Assessment/Recommendations Assessment: Unfortunate 75-year-old gentleman with a multitude of serious medical problems as outlined above, including end-stage renal disease for which he was recently started on dialysis as an inpatient which was continued as an outpatient at [facility] in [place] (he's only received a few treatments there). He is often hypotensive but now comes in even more hypotensive with altered mental status and a leukocytosis with left shift. He has multiple potential sources for sepsis including multiple skin wounds, urinary tract, his tunneled dialysis catheter and possibly his biliary tract as suggested by imaging studies. He also has chronic diarrhea and C. difficile needs to be strongly considered. He is being covered with empiric antibiotics as suggested by ID for all of these contingencies and further workup is in progress. Recommendations: 1. Hemodialysis today was relatively uneventful with no periods of prolonged hypotension; no fluid was removed with his treatment; blood cultures were obtained as requested 2. Agree with empiric antimicrobial therapy as recommended by ID 3. HIDA scan pending 4. Should he become hypotensive again, can bolus with 200-300 mL of normal saline and then reassess 5. Next hemodialysis for Thursday 08/31 6. Continue his outpatient medications as feasible Thank you. Will follow along with you.
[2016-08-30 01:06] VITALS: BP 122/56
--- NOTE | 2016-08-30 07:15 | PN- Housestaff ---
FELICITA HEATH,MINAL 08/30/16 0715: Subjective Follow-up For: Septicemia Shock sec to Jaden gutiérrez Complaints: no complaints Tele-Events Since Last Visit: Normal sinus rhythm, heart rate between 81-90, premature ventricular complex, bundle branch block Subjective: Patient is seen and examined the bedside. He is much awake and alert and oriented to time, place and person. He was complaining of pain in the left lower leg and we added Percocet for it. He denies of any nausea, vomiting, abdominal pain. He was waiting for HIDA scan to be done. Review of Systems Constitutional: Denies: no symptoms. Objective Last 24 Hrs of Vital Signs/I&O Vital Signs Date Time Temp Pulse Resp B/P Pulse O2 O2 Flow FiO2 Ox Delivery Rate 08/30 1635 98.1 89 18 116/58 100 Nasal 6.0L Cannula 08/30 0840 94 Nasal 2.0L Cannula 08/30 0821 97.7 77 18 102/52 99 Nasal 2.0L Cannula 08/30 0106 122/56 08/30 0000 Nasal 2.0L Cannula 08/29 2130 97.8 100 20 88/40 98 Nasal 2.0L Cannula 08/29 1800 98.7 109 18 96/48 93 Nasal 2.0L Cannula Intake & Output 08/30 1600 08/30 0800 08/30 0000 Intake Total 900 450 80 Output Total 100 770 Balance 900 350 -690 Intake, IV 500 450 50 Intake, Oral 400 30 Number 2 1 4 Bowel Movements Output, Stool 100 750 Output, Urine 20 Patient 63.56 kg 63.56 kg Weight Physical Exam General Appearance: Alert, Oriented X3, Cooperative, No Acute Distress Skin: sacrum unstageable pressure injury left dorsal foot 2.5 times 3.5 centimeter full-thickness dry gangrene Left inner thigh 5.5 times 3 centimeter and right lateral thigh 7 times 3.5 centimeter and 3 times 3 centimeters left lateral leg extending posterior 32 times 13 centimeter full-thickness wound. Dry gangrene and unstageable pressure injury to right heal HEENT: Atraumatic, PERRLA, EOMI Neck: Supple, No JVD Cardiovascular: Normal S1, Normal S2 Lungs: Clear to Auscultation, Normal Air Movement Abdomen: Soft, No Tenderness, No Hepatospenomegaly Neurological: Normal Speech Extremities: left leg ulcer as described in the skin examination Assessment/Plan Assessment: Mr. Marvin is a 76-year-old gentleman with past medical history of DVT on Coumadin therapy, hypertension, diabetes, CKD stage V currently on hemodialysis, peripheral vascular disease, left lower extremity necrotizing nonhealing ulcers, history of cellulitis with Pseudomonas. Crohn's disease status post bowel resection and on chronic prednisone therapy, femoral-popliteal bypass surgery, and several glottic edema as well as acute respiratory failure which required an ICU admission in May 2016 who presented to the emergency department from a rehabilitation facility this afternoon afternoon due to decreased mentation, lethargy and hypotension. Patient was in his usual state of health until the early hours 08/28/2016. During afternoon rounds at short-term rehabilitation the patient was found to be pale lethargic and stated that he did not feel well. Communication form states that he had one episode of emesis. Approximately 100 cc. Blood pressure taken at this time was 60/40. Repeat blood pressure after PO fluids showed 70/50. Due to hypotension patient was sent into the ER after 911 was called. 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 Plan - * Discussed with Dr Simeon, if blood pressure goes down to 100/80 than can give boluses of 200cc. * We will stop IV fluids and restart him on diet as advised by the dietitian including nectar and thin liquid and diabetic/renal diet * HIDA scan come back negative for any evidence of cholecystitis * He passed swallow evaluation and according to that we change the diet to order. * As the HIDA scan come back negative,we stopped IV ceftriaxone/vancomycin/ metronidazole and continue him on Vanco 250 Q6 PO. * According to Dr Guerra, he will watch for patients clinical course and if it improved then he will follow-up with the patient within a month to reconsider him for AV fistula. Meanwhile dialysis can be done with Tunnel catheter. * PT/INR- 7.7 is high, he was on coumadin, alternate day, so we will hold it for now, repeat it tmr and watch for bleeding. If there is bleeding than we will consider FFP,VitK. * Vitals every shift * Continue to meausure Bl sugar every 6 hrly and adjust Novalog according to sliding scale. * Code status - DNR/DNI * DVT prophyllaxis - ALPS Problem List: 1. Dehydration 2. Diarrhea 3. End stage renal disease Pain Ratin Pain Location: abd, left leg Pain Goal: Remain pain free Pain Plan: We added Percocet 2 tablet every 6 hourly when necessary Tomorrow's Labs & Rationales: CBC, PT/INR DVT/Prophylaxis: AYUSH Wood MD 08/30/16 1002: Attending Review Statement Attending Statement Attending MD Statement: examined this patient, discuss w/resident/PA/[employer], discussed with family, reviewed EMR data (avail), discussed with nursing, reviewed images Attending Assessment/Plan: Patient is scheduled for the HIDA scan today. 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 He was recently here for an extended hospital stay discharged and returns with hypotension, leukocytosis with bandemia and diarrhea. The two competing issues are whether this is all see the colitis or is there is any cholecystitis or biliary issues given the CT scan showing Cholelithiasis. Pt is on IV Vanco ceftaz and Flagyl per ID until the results of the HIDA scan and he is on by mouth Vanco as he meets criteria for severe C. difficile ( if this is C. difficile ) with the blood pressure and the bandemia. This initial stool for C. difficile was sent was negative but the PCR was sent as per ID and will follow closely.
[2016-08-30 08:21] VITALS: BP 102/52
[2016-08-30 08:37] LABS: PT 72.7 SEC (9.4-12.5)
--- NOTE | 2016-08-30 12:17 | PN- Infect Dx ---
Subjective Subjective: Afebrile. He has had several loose stools overnight and this morning. He denies abdominal pain. He denies any shortness of breath or cough. He continues to have pain from his lower extremitiy ulcers. Objective Last 24 Hrs of Vital Signs/I&O Vital Signs Date Time Temp Pulse Resp B/P Pulse O2 O2 Flow FiO2 Ox Delivery Rate 08/30 0840 94 Nasal 2.0L Cannula 08/30 0821 97.7 77 18 102/52 99 Nasal 2.0L Cannula 08/30 0106 122/56 08/30 0000 Nasal 2.0L Cannula 08/29 2130 97.8 100 20 88/40 98 Nasal 2.0L Cannula 08/29 1800 98.7 109 18 96/48 93 Nasal 2.0L Cannula 08/29 1600 95 Nasal 2.0L Cannula 08/29 1229 97.3 94 18 112/50 100 Nasal 2.0L Cannula Intake & Output 08/30 1600 08/30 0800 08/30 0000 Intake Total 450 80 Output Total 100 770 Balance 350 -690 Intake, IV 450 50 Intake, Oral 30 Number 1 4 Bowel Movements Output, Stool 100 750 Output, Urine 20 Patient 140 lb Weight Physical Exam Other Physical Findings: He is more awake and alert, appearing comfortable in no acute distress Chest tunneled catheter in the right upper chest with no inflammation at the site Lungs crackles at the left base Heart regular rhythm with no murmur Abdomen is soft, mildly tender to palpation in the right upper quadrant and epigastrium, positive bowel sounds Extremities necrotic lesions unchanged Results Last 24 Hours of Lab Results: Laboratory Tests 08/30 08/29 08/29 08/29 0640 1415 1358 1255 Chemistry BUN (9 - 20 mg/dL) < 2 L 23 H Creatinine (0.7 - 1.2 mg/dL) 3.6 H Estimated GFR (>60 ml/min) 17 L Glucose (65 - 99 mg/dL) 115 H Calcium (8.4 - 10.2 mg/dL) 8.1 L Phosphorus (2.5 - 4.5 mg/dL) 4.8 H Magnesium (1.6 - 2.3 mg/dL) 1.6 Albumin (3.5 - 5.0 g/dL) 2.1 L Coagulation PT (9.4 - 12.5 SEC) 72.7 *H INR (0.90 - 1.17) 7.06 *H Serology C. difficile Tox B Gene Pending Hep Bs Antigen (NONREACTIVE) NONREACTIVE Hep Bs Antibody (NONREACTIVE) NONREACTIVE Last 24 Hours of [place] Results: Blood culture August 28 negative Blood culture August 29 negative Stool PCR for C. difficile pending Urine culture August 28 approximately 50,000 colonies of yeast Assessment/Plan Impression: Appears somewhat improved with temperatures remaining normal on empiric treatment with Vancomycin, Flagyl and Ceftazidime Day 2 for possible intra- abdominal sepsis, possibly of biliary origin, with HIDA scan pending, and on po Vancomycin Day 1 for possible severe C. difficile, with toxin test negative and PCR pending. The candiduria is of unclear significance, with no clear urinary symptoms, status post a two-week course of Fluconazole for this on his recent admission. Suggestion: 1. Await HIDA scan results, with further management, including possible cholecystostomy tube, based on results 2. Follow-up stool PCR for C. difficile 3. Continue Vancomycin IV after each dialysis, Flagyl IV and Ceftazidime pending above 4. Continue po Vancomycin pending above
--- NOTE | 2016-08-30 14:47 | NUCLEAR MEDICINE REPORT ---
EXAMINATION: BILIARY TRACT IMAGING STUDY CLINICAL INFORMATION: Epigastric pain. Gallbladder wall thickening.. COMPARISON: No previous biliary scan is available for comparison. Abdominal ultrasound dated 08/29/[address] scan of the abdomen and pelvis, dated 08/28/2016, are available for comparison.. TECHNIQUE: Serial gamma scintillation camera images were obtained over the abdomen for a total observation period of 4 hours following the intravenous administration of 5.4 mCi Tc-99m Choletec. FINDINGS: There is good concentration of activity in the liver by 5 minutes post injection. Biliary activity is visualized by 16 minutes. Small bowel is well visualized by 35 minutes. Faint gallbladder activity is probably visualized beginning at 40 to 45 minutes post injection, but this remains faint throughout the initial 90 minutes of imaging. Delayed images obtained at 4 hours shows visualization of diffuse activity in a markedly enlarged gallbladder in a pattern that is very well matched to the appearance of the gallbladder on the coronal images of the CT scan dated 08/28/2016. At this time there is almost complete clearance of activity from the liver an diffuse bowel activity is visualized. IMPRESSION: A very markedly enlarged gallbladder is visualized. Visualization of the gallbladder is evidence of a patent cystic duct and strong evidence against the diagnosis of acute cholecystitis. The common bile duct is patent. Liver function appears normal.
--- NOTE | 2016-08-30 15:12 | PN- Nephrology ---
Assessment/Plan Assessment: 1. ESRD. 2. Hypotension/diarrhea - all cultures negative thus far except for urinary yeast 3. Peripheral vascular disease with necrotic skin lesions lower extremities Suggestion: 1. Continue current medications including empiric antibiotics per ID 2. Hemodialysis scheduled for tomorrow Subjective Subjective: Feels much better today although he did have some diarrhea. Blood pressures are quite variable but generally above 100 systolic. He remains afebrile, no CBC today, all cultures negative except for positive urine culture for yeast. HIDA scan does not support a diagnosis of acute cholecystitis. URR adequate (>90%) yesterday. Objective Vital Signs and I&Os Vital Signs Date Time Temp Pulse Resp B/P Pulse O2 O2 Flow FiO2 Ox Delivery Rate 08/30 0840 94 Nasal 2.0L Cannula 08/30 0821 97.7 77 18 102/52 99 Nasal 2.0L Cannula 08/30 0106 122/56 08/30 0000 Nasal 2.0L Cannula 08/29 2130 97.8 100 20 88/40 98 Nasal 2.0L Cannula 08/29 1800 98.7 109 18 96/48 93 Nasal 2.0L Cannula 08/29 1600 95 Nasal 2.0L Cannula Intake & Output 08/30 1600 08/30 0400 08/29 1600 08/29 0400 08/28 1600 08/28 0400 Intake Total 734 69 1861 1000 Output Total 100 770 38 Balance 350 -690 2312 1000 Intake, IV 161 30 9661 1000 Intake, Oral 30 Number 1 4 1 Bowel Movements Output, Stool 100 750 3 Output, Urine 20 35 Patient 140 lb 141 lb 197 lb Weight Physical Exam: General: Well-developed white male in NAD Skin: No rash or jaundice; mottled, necrotic, tender areas noted on right lateral leg and medial aspect of left thigh, posterior aspect of the left calf and dorsum of the left foot HEENT: Conjunctivae pale, sclerae anicteric, mucous membranes moist Neck: Without masses or thyromegaly, no supraclavicular or cervical adenopathy; there is a right IJ tunneled dialysis catheter in place Chest: Clear anterolaterally Heart: Regular rate and rhythm without S3 or rub Abdomen: Soft and nontender without palpable masses or organomegaly Extremities: Lower extremity dressing intact; the right upper arm AVF is without pulse, thrill or bruit; there is a right TMA Neuro: Awake, less confused today, no asterixis or myoclonus Current Medications: Current Medications Sig/Kailash Start time Last Medication Dose Route Stop Time Status Admin Ceftazidime 1,000 MG Q24H / 1700 DC 08/29 IV 1740 Dextrose 25 GM ONCE ONE 08/29 1815 DC 08/29 IV 08/29 1816 1805 Dextrose/Sodium 1,000 ML Q20H / 1430 AC 08/29 Chloride IV 1750 Epoetin Ludwig 6,000 UNIT TUES THURS SAT PRN 08/29 1330 AC IV Heparin Sodium 5,000 UNIT Q8 08/28 2200 AC 08/30 (Porcine) SC 0543 Insulin Aspart 0 TIDAC 08/30 1200 AC SC Insulin Human Regular 0 Q6 08/29 0011 DC 08/30 SC 0546 Metronidazole 500 MG Q8H 08/28 2130 DC 08/30 N/A 1 UNIT IV 0542 Oxycodone HCl 5 MG ONCE ONE 08/29 1915 DC 08/29 PO 08/29 1916 1919 Oxycodone/ 2 TAB Q6P PRN 08/30 0800 AC 08/30 Acetaminophen PO 0919 Prednisone 5 MG DAILY 08/29 1000 AC 08/30 PO 1130 Vancomycin HCl 125 MG Q6 08/29 1800 AC 08/30 PO 0543 Vancomycin HCl 1,000 MG ONCE ONE 08/29 1530 DC 08/29 Dextrose/Water 250 ML IV 08/29 1629 1743 Vancomycin HCl 0 DAILY NEEDED PRN 08/29 0030 DC IV Results Pertinent Lab Results: Laboratory Tests 08/30 08/29 08/29 08/29 08/29 0640 1415 1358 1255 0824 Chemistry BUN (9 - 20 mg/dL) < 2 L 23 H Creatinine (0.7 - 1.2 mg/dL) 3.6 H Estimated GFR (>60 ml/min) 17 L Glucose (65 - 99 mg/dL) 115 H Calcium (8.4 - 10.2 mg/dL) 8.1 L Phosphorus (2.5 - 4.5 mg/dL) 4.8 H Magnesium (1.6 - 2.3 mg/dL) 1.6 Albumin (3.5 - 5.0 g/dL) 2.1 L Coagulation PT (9.4 - 12.5 SEC) 72.7 *H INR (0.90 - 1.17) 7.06 *H Serology C. difficile Tox B Gene Pending Hep Bs Antigen (NONREACTIVE) NONREACTIVE Cancelled Hep Bs Antibody (NONREACTIVE) NONREACTIVE Cancelled 08/29 08/29 08/29 08/29 0655 0655 0055 0055 Chemistry Sodium (137 - 145 mmol/L) 138 Potassium (3.5 - 5.1 mmol/L) 4.6 Chloride (98 - 107 mmol/L) 110 H Carbon Dioxide (22 - 30 mmol/L) 17 L Anion Gap (5 - 16) 11 BUN (9 - 20 mg/dL) 22 H Creatinine (0.7 - 1.2 mg/dL) 3.5 H Estimated GFR (>60 ml/min) 17 L BUN/Creatinine Ratio (7 - 25 %) 6.3 L Lactic Acid (0.7 - 2.1 mmol/L) 1.3 2.5 H Troponin I (<0.11 ng/ml) 0.08 Coagulation PT (9.4 - 12.5 SEC) 68.5 *H INR (0.90 - 1.17) 6.65 *H Hematology CBC w Diff MAN DIFF ORDERED WBC (4.8 - 10.8 /CUMM) 10.7 RBC (4.70 - 6.10 /CUMM) 3.09 L Hgb (14.0 - 18.0 G/DL) 8.9 L Hct (42 - 52 %) 28.3 L MCV (80.0 - 94.0 FL) 91.4 MCH (27.0 - 31.0 PG) 28.7 RDW (11.5 - 14.5 %) 22.4 H Plt Count (130 - 400 /CUMM) 328 MPV (7.4 - 10.4 FL) 9.0 Gran % (42.2 - 75.2 %) 92.3 H Lymphocytes % (20.5 - 51.1 %) 3.8 L Monocytes % (1.7 - 9.3 %) 3.7 Eosinophils % (0 - 5 %) 0.1 Basophils % (0.0 - 2.0 %) 0.1 Absolute Granulocytes (1.4 - 6.5 /CUMM) 9.9 H Segmented Neutrophils (42.2 - 75.2 %) 58 Band Neutrophils (0.0 - 5.0 %) 33 H Absolute Lymphocytes (1.2 - 3.4 /CUMM) 0.4 L Lymphocytes (20.5 - 51.1 %) 7 L Absolute Monocytes (0.10 - 0.60 /CUMM) 0.4 Absolute Eosinophils (0.0 - 0.7 /CUMM) 0 Absolute Basophils (0.0 - 0.2 /CUMM) 0 Myelocytes (0 - 0 %) 2 H Platelet Estimate (ADEQUATE) ADEQUATE Polychromasia 1+ Hypochromic-Microcytic 2+ Poikilocytosis 1+ Anisocytosis 1+ PUBS MCHC (33.0 - 37.0 G/DL) 31.4 L Toxicology Random Vancomycin (ug/ml) 10.0 08/28 08/28 1759 1735 Chemistry Lactic Acid Cancelled Urines Urinalysis LIGHT H Urine Color (YEL,AMB,STR) YEL Urine Clarity (CLEAR) CLDY H Urine pH (5.0 - 8.0) 6.5 Ur Specific [place] (1.001 - 1.035) 1.025 Urine Protein (NEG,<30 MG/DL) 100 H Urine Ketones (NEG) NEG Urine Nitrite (NEG) NEG Urine Bilirubin (NEG) NEG Urine Urobilinogen (0.1 - 1.0 EU/dl) 0.2 Ur Leukocyte Esterase (NEG) LARGE H Ur Microscopic SEDIMENT EXAMINED Urine RBC (0 - 5 /HPF) 5-10 H Urine WBC (0 - 2 /HPF) PACKD H Ur Epithelial Cells (NONE,FEW) FEW Hyaline Casts (0/LPF) 1-3 H Urine Mucus (FEW,NONE) MOD H Urine Hemoglobin (NEG) LARGE H Urine Glucose (N MG/DL) NEG 08/28 08/28 1501 1436 Chemistry Sodium (137 - 145 mmol/L) 140 Potassium (3.5 - 5.1 mmol/L) 4.6 Chloride (98 - 107 mmol/L) 105 Carbon Dioxide (22 - 30 mmol/L) 22 Anion Gap (5 - 16) 12 BUN (9 - 20 mg/dL) 18 Creatinine (0.7 - 1.2 mg/dL) 2.9 H Estimated GFR (>60 ml/min) 21 L BUN/Creatinine Ratio (7 - 25 %) 6.2 L Glucose (65 - 99 mg/dL) 131 H Lactic Acid (0.7 - 2.1 mmol/L) 3.8 H Calcium (8.4 - 10.2 mg/dL) 9.2 Magnesium (1.6 - 2.3 mg/dL) 1.5 L Total Bilirubin (0.2 - 1.3 mg/dL) 0.4 AST (17 - 59 U/L) 26 ALT (21 - 72 U/L) 29 Alkaline Phosphatase (< 127 U/L) 77 Troponin I (<0.11 ng/ml) 0.07 Lii-[id number] Pept (<125 pg/mL) 40971 H Total Protein (6.3 - 8.2 g/dL) 5.8 L Albumin (3.5 - 5.0 g/dL) 2.5 L Globulin (1.9 - 4.2 gm/dL) 3.3 Albumin/Globulin Ratio (1.1 - 2.2 %) 0.8 L Coagulation PT Cancelled Cancelled INR Cancelled Cancelled D-Dimer Cancelled Hematology CBC w Diff MAN DIFF ORDERED WBC (4.8 - 10.8 /CUMM) 12.8 H RBC (4.70 - 6.10 /CUMM) 3.53 L Hgb (14.0 - 18.0 G/DL) 10.1 L Hct (42 - 52 %) 32.2 L MCV (80.0 - 94.0 FL) 91.4 MCH (27.0 - 31.0 PG) 28.6 RDW (11.5 - 14.5 %) 22.6 H Plt Count (130 - 400 /CUMM) 411 H MPV (7.4 - 10.4 FL) 8.4 Gran % (42.2 - 75.2 %) 83.1 H Lymphocytes % (20.5 - 51.1 %) 9.9 L Monocytes % (1.7 - 9.3 %) 6.1 Eosinophils % (0 - 5 %) 0.5 Basophils % (0.0 - 2.0 %) 0.4 Absolute Granulocytes (1.4 - 6.5 /CUMM) 10.6 H Segmented Neutrophils (42.2 - 75.2 %) 71 Band Neutrophils (0.0 - 5.0 %) 7 H Absolute Lymphocytes (1.2 - 3.4 /CUMM) 1.3 Lymphocytes (20.5 - 51.1 %) 13 L Monocytes (1.7 - 9.3 %) 8 Absolute Monocytes (0.10 - 0.60 /CUMM) 0.8 H Absolute Eosinophils (0.0 - 0.7 /CUMM) 0.1 Absolute Basophils (0.0 - 0.2 /CUMM) 0.1 Myelocytes (0 - 0 %) 1 H Platelet Estimate (ADEQUATE) ADEQUATE Polychromasia Hypochromic-Microcytic 1+ Anisocytosis 1+ PUBS MCHC (33.0 - 37.0 G/DL) 31.3 L
--- NOTE | 2016-08-30 15:27 | Event Note ---
Event Note Event Note: Discussed with Dr Guerra, according to him and Dr Simeon, patient right now has multiple medical issues including infection, and he can have dialysis with tunnel catheter. Dr Guerra, informed me over the telephone that we should wait to see the clinical course of the patient. If he becomes stablelizes , then we can think of A-V fistula. He will follow the patient after a month for further evaluation and management. During this time, dialysis can be done through the tunneled catheter.
[2016-08-30 16:35] VITALS: BP 116/58
[2016-08-30 19:06] LABS: ABSOLUTE BASOPHIL COUNT 0.1 /CUMM (0.0-0.2); ABSOLUTE EOSINOPHIL COUNT 0 /CUMM (0.0-0.7); ABSOLUTE GRANULOCYTE CT 6.8 /CUMM (1.4-6.5); ABSOLUTE LYMPH COUNT 0.6 /CUMM (1.2-3.4); ABSOLUTE MONOCYTE COUNT 0.7 /CUMM (0.10-0.60); BASOPHIL % 0.7 % (0.0-2.0); EOSINOPHIL % 0.4 % (0-5); GRANULOCYTE % 83.5 % (42.2-75.2); HEMATOCRIT 31.4 % (42-52); MEAN CORPUSCULAR HGB 28.1 PG (27.0-31.0); MEAN CORPUSCULAR HGB CONC 30.7 G/DL (33.0-37.0); MEAN CORPUSCULAR VOLUME 91.4 FL (80.0-94.0); MEAN PLATELET VOLUME 8.5 FL (7.4-10.4); PLATELET COUNT 375 /CUMM (130-400); RED BLOOD CELL CT 3.43 /CUMM (4.70-6.10); WHITE BLOOD CELL COUNT 8.1 /CUMM (4.8-10.8)
[2016-08-30 20:00] VITALS: BP 110/58
[2016-08-31 00:05] VITALS: BP 112/58
--- NOTE | 2016-08-31 07:19 | PN- Housestaff ---
FELICITA HEATH,MINAL 08/31/16 0718: Subjective Follow-up For: Septicemia Shock sec to C difficle high PT/INR Complaints: itchy eyes Subjective: Patient is seen and examined at the bed side.He was oriented to time place and person.he was complaining of itchy eyes and frequent diarrhea over the night. According to nurse he had 3-4 episodes of loose bowel movement. He denies of any dizziness,headache, abdominal pain. Review of Systems Constitutional: Reports: no symptoms, weakness. EENTM: Denies: no symptoms. Cardiovascular: Denies: chest pain, edema, orthopena, palpitations. Respiratory: Denies: cough, hemoptysis, orthopnea, short of breath. Gastrointestinal: Reports: diarrhea. Denies: abdominal pain, bloating, constipation, distention, nausea. Genitourinary: Denies: no symptoms. Musculoskeletal: Denies: no symptoms. Objective Last 24 Hrs of Vital Signs/I&O Vital Signs Date Time Temp Pulse Resp B/P Pulse O2 O2 Flow FiO2 Ox Delivery Rate 08/31 0846 95 Nasal 2.0L Cannula 08/31 0751 97.6 87 18 138/68 100 Nasal 1.0L Cannula 08/31 0005 98.2 88 18 112/58 100 Nasal Cannula 08/31 0000 Nasal 2.0L Cannula 08/30 2000 97.6 88 18 110/58 92 Nasal 2.0L Cannula 08/30 1635 98.1 89 18 116/58 100 Nasal 6.0L Cannula 08/30 1600 96 Nasal 2.0L Cannula Intake & Output 08/31 1600 08/31 0800 08/31 0000 Intake Total 50 720 Output Total 200 Balance -150 720 Intake, Oral 50 720 Number 3 4 Bowel Movements Output, Stool 200 Patient 52.617 kg Weight Physical Exam General Appearance: Alert, Oriented X3, Cooperative, No Acute Distress Skin: No Rashes, No Breakdown HEENT: Atraumatic, PERRLA, EOMI Neck: Supple, No JVD Cardiovascular: Regular Rate, Normal S1, Normal S2 Lungs: Clear to Auscultation, Normal Air Movement Abdomen: Soft, No Tenderness Neurological: Normal Speech Extremities: No Clubbing, No Cyanosis, left lower extremity,There are multiple ulcers which are tender to touch along with ankle edema. Assessment/Plan Assessment: Mr. Marvin is a 76-year-old gentleman with past medical history of DVT on Coumadin therapy, hypertension, diabetes, CKD stage V currently on hemodialysis, peripheral vascular disease, left lower extremity necrotizing nonhealing ulcers, history of cellulitis with Pseudomonas. Crohn's disease status post bowel resection and on chronic prednisone therapy, femoral-popliteal bypass surgery, and several glottic edema as well as acute respiratory failure which required an ICU admission in May 2016 who presented to the emergency department from a rehabilitation facility this afternoon afternoon due to decreased mentation, lethargy and hypotension. Patient was in his usual state of health until the early hours 08/28/2016. During afternoon rounds at short-term rehabilitation the patient was found to be pale lethargic and stated that he did not feel well. Communication form states that he had one episode of emesis. Approximately 100 cc. Blood pressure taken at this time was 60/40. Repeat blood pressure after PO fluids showed 70/50. Due to hypotension patient was sent into the ER after 911 was called. 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 Plan - * We added erythromycin ointment for eyes, to be given 4 times a day as the patient is complaining of itchy eyes and there was thick secretions coming out. * Discussed with Dr Simeon, if blood pressure goes down to 100/80 than can give boluses of 200cc. * He passed swallow evaluation and according to that we change the diet order. * We will stop IV fluids and restart him on diet as advised by the dietitian including nectar and thin liquid and diabetic/renal diet * HIDA scan come back negative for any evidence of cholecystitis * As the HIDA scan come back negative,we stopped IV ceftriaxone/vancomycin/ metronidazole and continue him on Vanco 250 Q6 PO. * According to Dr Guerra, he will watch for patients clinical course and if it improved then he will follow-up with the patient within a month to reconsider him for AV fistula. Meanwhile dialysis can be done with Tunnel catheter. * PT/INR- 7.7 is high, he was on coumadin, alternate day, so we will hold it for now, repeat it tmr and watch for bleeding. If there is bleeding than we will consider FFP,VitK. * Vitals every shift * Continue to meausure Bl sugar every 6 hrly and adjust Novalog according to sliding scale. * Code status - DNR/DNI * DVT prophyllaxis - ALPS Problem List: 1. CKD (chronic kidney disease) 2. Diarrhea 3. Clostridium difficile colitis Pain Ratin (cannot comment) Pain Location: Left lower extremity Pain Goal: Remain pain free Pain Plan: [id number] Tomorrow's Labs & Rationales: PT/INR, CBC DVT/Prophylaxis: mechanical FABIOLA HEATH,AMIR 08/31/16 1156: Attending MD Review Statement Attending Statement Attending MD Statement: examined this patient, discuss w/resident/PA/SPRING CLIPPER, agreed w/resident/PA/SPRING CLIPPER, reviewed EMR data (avail) Attending Assessment/Plan: Mr. Marvin was seen by me, chart reviewed. reports intermittent abd pain/ spasm, denies N/V or diarrhea. 95% on 2 LNC, INR > 5.0. as per note will go for HD today. Appreciate Renal and ID input. Cont to monitor. check daily labs including INR. rest of the plan as per resident's note
[2016-08-31 07:51] VITALS: BP 138/68
[2016-08-31 08:17] LABS: ABSOLUTE BASOPHIL COUNT 0 /CUMM (0.0-0.2); ABSOLUTE EOSINOPHIL COUNT 0.2 /CUMM (0.0-0.7); ABSOLUTE GRANULOCYTE CT 6.7 /CUMM (1.4-6.5); ABSOLUTE LYMPH COUNT 1.1 /CUMM (1.2-3.4); ABSOLUTE MONOCYTE COUNT 0.8 /CUMM (0.10-0.60); BASOPHIL % 0 % (0.0-2.0); EOSINOPHIL % 1.9 % (0-5); GRANULOCYTE % 76.6 % (42.2-75.2); HEMATOCRIT 28.7 % (42-52); MEAN CORPUSCULAR HGB 28.5 PG (27.0-31.0); MEAN CORPUSCULAR VOLUME 91.9 FL (80.0-94.0); MEAN PLATELET VOLUME 8.2 FL (7.4-10.4); PLATELET COUNT 325 /CUMM (130-400); RBC DISTRIBUTION WIDTH 22.5 % (11.5-14.5); RED BLOOD CELL CT 3.12 /CUMM (4.70-6.10); WHITE BLOOD CELL COUNT 8.7 /CUMM (4.8-10.8)
[2016-08-31 09:42] LABS: PT 61.1 SEC (9.4-12.5)
[2016-08-31 11:01] LABS: C.DIFFICILE TOXIN B QL PCR NOT DETECTED (NOT DETECTED)
[2016-08-31 17:37] VITALS: BP 128/67
[2016-08-31 23:00] VITALS: BP 122/58
--- NOTE | 2016-09-01 07:58 | PN- Housestaff ---
ESTELA HEATH,[facility] 09/01/16 0757: Subjective Follow-up For: Diarrhea Subjective: Patient seen and examined this point. He was lying in bed drowsy, but in no acute distress. Complaining of pain in his left lower extremity secondary to chronic healing ulcer. She does have diarrhea, C. difficile has been negative, remains afebrile, blood pressure to his lower side, remains on 2 L of nasal cannula oxygen satting in the 90s. Review of Systems Constitutional: Reports: see HPI. Objective Last 24 Hrs of Vital Signs/I&O Vital Signs Date Time Temp Pulse Resp B/P Pulse O2 O2 Flow FiO2 Ox Delivery Rate 09/01 0831 94 Nasal 2.0L Cannula 09/01 0817 98.2 115 20 102/60 96 Nasal 2.0L Cannula 09/01 0000 95 Nasal 2.0L Cannula 08/31 2300 98.9 96 20 122/58 98 Nasal 2.0L Cannula 08/31 1737 98.7 106 18 128/67 99 Nasal Cannula 08/31 1644 94 Nasal 2.0L Cannula Intake & Output 09/01 1600 09/01 0800 09/01 0000 Intake Total 200 1120 Output Total Balance 200 1120 Intake, 1000 Dialysate Intake, Oral 200 120 Number 1 Bowel Movements Patient 62.596 kg 62.142 kg Weight Physical Exam General Appearance: No Acute Distress, drowsy Cardiovascular: Regular Rate, Normal S1, Normal S2 Lungs: decreased breath sounds bilaterally Abdomen: Normal Bowel Sounds, Soft Extremities: No Cyanosis, No Edema, left lower extremity nonhealing ulcer Current Medications: Current Medications Sig/Kailash Start time Last Medication Dose Route Stop Time Status Admin Epoetin Ludwig 6,000 UNIT TU SAT PRN 08/29 1330 AC IV Erythromycin 1 CHAITANYA 4 TIMES/DAY 08/31 0745 AC 09/01 OPH 1334 Heparin Sodium 5,000 UNIT Q8 08/28 2200 AC 09/01 (Porcine) SC 1334 Insulin Aspart 0 TIDAC 08/30 1200 AC 09/01 SC 1210 Oxycodone/ 2 TAB Q6P PRN 08/30 0800 AC 09/01 Acetaminophen PO 1117 Prednisone 5 MG DAILY 08/29 1000 AC 09/01 PO 0936 Vancomycin HCl 125 MG Q6 08/29 1800 DC 09/01 PO 1117 Last 24 Hrs of Lab/Avtar Results Last 24 Hrs of Labs/Mics: Laboratory Tests 09/01/16 1130: PT 58.3 *H, INR 5.65 *H, CBC w Diff MAN DIFF ORDERED, RBC 3.39 L, MCV 91.6, MCH 28.7, RDW 22.0 H, MPV 8.3, Gran % 89.8 H, Lymphocytes % 3.4 L, Monocytes % 6.4, Eosinophils % 0.4, Basophils % 0 L, Absolute Granulocytes 16.4 H, Segmented Neutrophils 87 H, Band Neutrophils 5, Absolute Lymphocytes 0.6 L, Lymphocytes 4 L, Monocytes 4, Absolute Monocytes 1.2 H, Absolute Eosinophils 0.1, Absolute Basophils 0, Platelet Estimate VERIFIED BY SMEAR, Polychromasia 1+ , Poikilocytosis 1+, Anisocytosis 2+, Ovalocytes 1+, Stomatocytes 1+, PUBS MCHC 31.4 L 09/01/16 0600: PT Cancelled, INR Cancelled Assessment/Plan Assessment: Mr. Marvin is a 76-year-old gentleman with past medical history of DVT on Coumadin therapy, hypertension, diabetes, CKD stage V currently on hemodialysis, peripheral vascular disease, left lower extremity necrotizing nonhealing ulcers, history of cellulitis with Pseudomonas. Crohn's disease status post bowel resection and on chronic prednisone therapy, femoral-popliteal bypass surgery, and several glottic edema as well as acute respiratory failure which required an ICU admission in May 2016 who presented to the emergency department from a rehabilitation facility this afternoon afternoon due to decreased mentation, lethargy and hypotension. Patient was in his usual state of health until the early hours 08/28/2016. During afternoon rounds at short-term rehabilitation the patient was found to be pale lethargic and stated that he did not feel well. Communication form states that he had one episode of emesis. Approximately 100 cc. Blood pressure taken at this time was 60/40. Repeat blood pressure after PO fluids showed 70/50. Due to hypotension patient was sent into the ER after 911 was called. 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 Plan -vancomycin by mouth stopped as stool negative for C. difficile * We added erythromycin ointment for eyes, to be given 4 times a day as the patient is complaining of itchy eyes and there was thick secretions coming out. * Discussed with Dr Simeon, if blood pressure goes down to 100/80 than can give boluses of 200cc. * He passed swallow evaluation and according to that we change the diet order. * We will stop IV fluids and restart him on diet as advised by the dietitian including nectar and thin liquid and diabetic/renal diet * HIDA scan come back negative for any evidence of cholecystitis * As the HIDA scan come back negative,we stopped IV ceftriaxone/vancomycin/ metronidazole and continue him on Vanco 250 Q6 PO. * According to Dr Guerra, he will watch for patients clinical course and if it improved then he will follow-up with the patient within a month to reconsider him for AV fistula. Meanwhile dialysis can be done with Tunnel catheter. * PT/INR- 7.7 is high, he was on coumadin, alternate day, so we will hold it for now, repeat it tmr and watch for bleeding. If there is bleeding than we will consider FFP,VitK. * Vitals every shift * Continue to meausure Bl sugar every 6 hrly and adjust Novalog according to sliding scale. * Code status - DNR/DNI * DVT prophyllaxis - ALPS Problem List: 1. Supratherapeutic INR 2. Diarrhea Pain Ratin Pain Location: LLE Pain Goal: Remain pain free Pain Plan: Percocet Tomorrow's Labs & Rationales: INR for Coumadin dosing CBC bep FABIOLA HEATH,AMIR 09/01/16 1156: Attending MD Review Statement Attending Statement Attending MD Statement: examined this patient, discuss w/resident/PA/[employer] MECHANIC, agreed w/resident/PA/[employer] MECHANIC, discussed with family, reviewed EMR data (avail), discussed with nursing Attending Assessment/Plan: pt was seen, sleepy but arousable. Had HD yesterrday. Still having diarrhea. Replete K today, f/u INR, and check lytes in am. f/u ID recs. Rest of the plan as per resident's note.
[2016-09-01 08:17] VITALS: BP 102/60
--- NOTE | 2016-09-01 12:05 | PN- Infect Dx ---
Subjective Subjective: Afebrile. He continues to have diarrhea, with 7 bowel movements reported yesterday. He reports abdominal pain from the ulcers in his lower extremities and abdominal discomfort. He also notes shortness of breath with a mild cough. Objective Last 24 Hrs of Vital Signs/I&O Vital Signs Date Time Temp Pulse Resp B/P Pulse O2 O2 Flow FiO2 Ox Delivery Rate 09/01 0831 94 Nasal 2.0L Cannula 09/01 0817 98.2 115 20 102/60 96 Nasal 2.0L Cannula 09/01 0000 95 Nasal 2.0L Cannula 08/31 2300 98.9 96 20 122/58 98 Nasal 2.0L Cannula 08/31 1737 98.7 106 18 128/67 99 Nasal Cannula 08/31 1644 94 Nasal 2.0L Cannula Intake & Output 09/01 1600 09/01 0800 09/01 0000 Intake Total 120 Output Total Balance 120 Intake, Oral 120 Patient 138 lb 137 lb Weight Physical Exam Other Physical Findings: He is lethargic but arousable, chronically ill but in no acute distress Chest tunneled dialysis catheter in the right upper chest with no inflammation at the site Lungs decreased breath sounds bilaterally Heart regular rhythm with no murmur Abdomen soft, tender on palpation of the epigastrium and right upper quadrant, with no guarding or rebound, positive bowel sounds Extremities dressings intact over the lower extremity ulcers Results Last 24 Hours of Lab Results: Laboratory Tests 09/01 09/01 08/31 1130 0600 1245 Chemistry Sodium (137 - 145 mmol/L) 140 Potassium (3.5 - 5.1 mmol/L) 3.1 L Chloride (98 - 107 mmol/L) 106 Carbon Dioxide (22 - 30 mmol/L) 24 Anion Gap (5 - 16) 10 BUN (9 - 20 mg/dL) 14 Creatinine (0.7 - 1.2 mg/dL) 3.1 H Estimated GFR (>60 ml/min) 20 L BUN/Creatinine Ratio (7 - 25 %) 4.5 L Coagulation PT Pending Cancelled INR Pending Cancelled Hematology CBC w Diff Pending WBC Pending RBC Pending Hgb Pending Hct Pending MCV Pending MCH Pending RDW Pending Plt Count Pending MPV Pending PUBS MCHC Pending Last 24 Hours of Avtar Results: Blood culture August 28 negative Blood culture August 29 negative Urine culture August 28 approximately 50,000 colonies of yeast Stool PCR for C. difficile negative Stool culture negative Recent Imaging Studies: HIDA scan August 30 negative Assessment/Plan Impression: Diarrhea persists despite empiric treatment with po Vancomycin now Day 3 for possible C. difficile, which now seems unlikely with a negative toxin test and negative PCR. Other possible causes of his diarrhea include a flareup of his Crohn's, now on only 5 mg of prednisone daily, though the CT was negative for colitis, or a viral process such as Norovirus. He remains afebrile with white blood cell count normal now on po Vancomycin alone, with Flagyl and Ceftazidime discontinued after the negative HIDA scan. The candiduria is of unclear significance, with no clear urinary symptoms, status post a two-week course of Fluconazole on his recent admission and do not feel this requires treatment at this time. Suggestion: 1. GI input regarding his diarrhea and possible flareup of Crohn's 2. Stool for PCR for Norovirus 3. Discontinue po Vancomycin and follow off antibiotics pending above
[2016-09-01 12:16] LABS: ABSOLUTE BASOPHIL COUNT 0 /CUMM (0.0-0.2); ABSOLUTE EOSINOPHIL COUNT 0.1 /CUMM (0.0-0.7); ABSOLUTE GRANULOCYTE CT 16.4 /CUMM (1.4-6.5); ABSOLUTE LYMPH COUNT 0.6 /CUMM (1.2-3.4); ABSOLUTE MONOCYTE COUNT 1.2 /CUMM (0.10-0.60); BASOPHIL % 0 % (0.0-2.0); EOSINOPHIL % 0.4 % (0-5); GRANULOCYTE % 89.8 % (42.2-75.2); MEAN CORPUSCULAR HGB 28.7 PG (27.0-31.0); MEAN CORPUSCULAR HGB CONC 31.4 G/DL (33.0-37.0); MEAN CORPUSCULAR VOLUME 91.6 FL (80.0-94.0); MEAN PLATELET VOLUME 8.3 FL (7.4-10.4); PLATELET COUNT 304 /CUMM (130-400); RED BLOOD CELL CT 3.39 /CUMM (4.70-6.10)
[2016-09-01 12:36] LABS: WHITE BLOOD CELL COUNT 18.2 /CUMM (4.8-10.8)
[2016-09-01 12:41] LABS: PT 58.3 SEC (9.4-12.5)
[2016-09-01 15:32] VITALS: BP 96/60
[2016-09-01 21:15] VITALS: BP 98/70
[2016-09-01 23:49] VITALS: BP 126/60
--- NOTE | 2016-09-02 07:36 | PN- Housestaff ---
See Addendum Subjective Follow-up For: Septicemia of unknown cause, probably GI, lung under evaluation Complaints: no complaints Subjective: Patient is seen and examined the patient. He was very drowsy. Althoug he was responding to verbal commands but is not able to answer all the questions. According to nurse he was same since last 24 hours. The took the blood pressure which was found to be 80/60. I talked to the nurse and given IV fluids 200 mL bolus of normal saline followed by start of 50 mL of D5 normal saline Review of Systems Constitutional: Denies: no symptoms. Comments: Cannot be commented because of the patient's clinical condition Objective Last 24 Hrs of Vital Signs/I&O Vital Signs Date Time Temp Pulse Resp B/P Pulse O2 O2 Flow FiO2 Ox Delivery Rate 09/02 1210 100.0 09/02 1111 101.4 09/02 0930 95 Nasal 2.0L Cannula 09/02 0834 101.8 120 22 79/44 94 Nasal Cannula 09/02 0000 Nasal 2.0L Cannula 09/01 2349 97.8 98 20 126/60 98 09/01 2115 98.4 90 18 98/70 99 Room Air 09/01 1600 Nasal 2.0L Cannula Intake & Output 09/02 1600 09/02 0800 09/02 0000 Intake Total 900 100 360 Output Total Balance 900 100 360 Intake, IV 500 Intake, Oral 400 100 360 Number 3 Bowel Movements Patient 60.781 kg Weight Physical Exam General Appearance: Mild Distress, minimally responding to verbal commands, although moving all his limbs Skin: multiple leg ulcers on left leg HEENT: Atraumatic, PERRLA, EOMI Neck: Supple, No JVD Cardiovascular: Normal S1, Normal S2, tachycardia Lungs: mild crepts in left base Abdomen: Soft, No Tenderness Neurological: drowsy Extremities: No Clubbing, No Cyanosis, edema and pain in both lower legs more in left leg Vascular: Normal Pulses, Pulses Symmetrical Assessment/Plan Assessment: Mr. Marvin is a 76-year-old gentleman with past medical history of DVT on Coumadin therapy, hypertension, diabetes, CKD stage V currently on hemodialysis, peripheral vascular disease, left lower extremity necrotizing nonhealing ulcers, history of cellulitis with Pseudomonas. Crohn's disease status post bowel resection and on chronic prednisone therapy, femoral-popliteal bypass surgery, and several glottic edema as well as acute respiratory failure which required an ICU admission in May 2016 who presented to the emergency department from a rehabilitation facility this afternoon afternoon due to decreased mentation, lethargy and hypotension. Patient was in his usual state of health until the early hours 08/28/2016. During afternoon rounds at short-term rehabilitation the patient was found to be pale lethargic and stated that he did not feel well. Communication form states that he had one episode of emesis. Approximately 100 cc. Blood pressure taken at this time was 60/40. Repeat blood pressure after PO fluids showed 70/50. Due to hypotension patient was sent into the ER after 911 was called. 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 Vital signs-temperature 101.8, pulse 120, respiratory 22, blood pressure 79/44, SPO2 95% on nasal cannula Plan - * He was very drowsy. Althoug he was responding to verbal commands but is not able to answer all the questions. According to nurse he was same since last 24 hours. We took the blood pressure which was found to be 80/60. I talked to the nurse and gave IV fluids 200 mL bolus of normal saline followed by start of 50 mL of D5 normal saline. * We kept the patient nothing by mouth * Advise to stop Percocet for pain, if needed use Tylenol * The temperature was 101.8, advised to give Tylenol and send the blood culture * On examination, there was no any pain and tenderness at the site of the dialysis catheter * We placed a consult for GI, to rule out the cause of diarrhea, probable Crohn' s * Discussed with MD Fina as the patient's counts are going high from 18,000 -21,000. Follow-up chest x-ray shows no any signs of pneumonia. CT abdomen and pelvis showed, left-sided pleural effusion and right-sided small pleural effusion with basilar atelectasis/pneumonia. * We started patient on IV ceftazidime 1 gram IV and vancomycin 1 gram IV and repeat it after dialysis * vancomycin by mouth stopped as stool negative for C. difficile * We added erythromycin ointment for eyes, to be given 4 times a day as the patient is complaining of itchy eyes and there was thick secretions coming out. * Discussed with Dr Simeon, if blood pressure goes down to 100/80 than can give boluses of 200cc. * According to Dr Guerra, he will watch for patients clinical course and if it improved then he will follow-up with the patient within a month to reconsider him for AV fistula. Meanwhile dialysis can be done with Tunnel catheter. * PT/INR- 5.28 is high, he was on coumadin, alternate day, so we will hold it for now, repeat it tmr and watch for bleeding. If there is bleeding than we will consider FFP,VitK. * According to , patient is going for hemo-dialysis tomorrow * Vitals every shift * Continue to meausure Bl sugar every 6 hrly and adjust Novalog according to sliding scale. * Code status - DNR/DNI * DVT prophyllaxis - ALPS Problem List: 1. Pneumonia 2. Crohns disease 3. Peripheral vascular disease 4. Type 2 diabetes mellitus 5. Diarrhea 6. Dehydration Pain Ratin (cannt accessed due to clinical) Pain Location: legs Pain Goal: Remain pain free Pain Plan: mild Tomorrow's Labs & Rationales: cbc,pt/inr,bep
[2016-09-02 08:34] VITALS: BP 79/44
[2016-09-02 09:07] LABS: PT 54.5 SEC (9.4-12.5)
[2016-09-02 09:35] LABS: HEMATOCRIT 33.7 % (42-52); MEAN CORPUSCULAR HGB CONC 31.5 G/DL (33.0-37.0); MEAN PLATELET VOLUME 8.5 FL (7.4-10.4); PLATELET COUNT 317 /CUMM (130-400); RBC DISTRIBUTION WIDTH 21.5 % (11.5-14.5); RED BLOOD CELL CT 3.66 /CUMM (4.70-6.10); WHITE BLOOD CELL COUNT 21.8 /CUMM (4.8-10.8)
--- NOTE | 2016-09-02 13:10 | PN- Infect Dx ---
Subjective Subjective: MAXIMUM TEMPERATURE 101.8. His blood pressure has dropped to 79/44 and he has become more lethargic. He has had no diarrhea overnight, with 4 bowel movements reported yesterday. Objective Last 24 Hrs of Vital Signs/I&O Vital Signs Date Time Temp Pulse Resp B/P Pulse O2 O2 Flow FiO2 Ox Delivery Rate 09/02 1111 101.4 09/02 0930 95 Nasal 2.0L Cannula 09/02 0834 101.8 120 22 79/44 94 Nasal Cannula 09/02 0000 Nasal 2.0L Cannula 09/01 2349 97.8 98 20 126/60 98 09/01 2115 98.4 90 18 98/70 99 Room Air 09/01 1600 Nasal 2.0L Cannula 09/01 1532 97.5 94 18 96/60 93 Nasal 2.0L Cannula Intake & Output 09/02 1600 09/02 0800 09/02 0000 Intake Total 100 360 Output Total Balance 100 360 Intake, Oral 100 360 Number 3 Bowel Movements Patient 134 lb Weight Physical Exam Other Physical Findings: He is lethargic but arousable, chronically ill-appearing Chest tunneled catheter in the right upper chest with no inflammation at the site Lungs crackles at the left base with scattered rhonchi bilaterally Abdomen is soft, tender to palpation diffusely, with no guarding or rebound, positive bowel sounds Extremities dressings intact over the lower extremity necrotic ulcers, which remain tender to palpation Results Last 24 Hours of Lab Results: Laboratory Tests 09/02 09/01 0757 2245 Chemistry Sodium (137 - 145 mmol/L) 139 140 Potassium (3.5 - 5.1 mmol/L) 4.6 3.9 Chloride (98 - 107 mmol/L) 110 H 106 Carbon Dioxide (22 - 30 mmol/L) 20 L 26 Anion Gap (5 - 16) 10 8 BUN (9 - 20 mg/dL) 12 12 Creatinine (0.7 - 1.2 mg/dL) 3.3 H 2.9 H Estimated GFR (>60 ml/min) 18 L 21 L BUN/Creatinine Ratio (7 - 25 %) 3.6 L 4.1 L Coagulation PT (9.4 - 12.5 SEC) 54.5 *H INR (0.90 - 1.17) 5.28 *H Hematology CBC w Diff MAN DIFF ORDERED WBC (4.8 - 10.8 /CUMM) 21.8 H RBC (4.70 - 6.10 /CUMM) 3.66 L Hgb (14.0 - 18.0 G/DL) 10.6 L Hct (42 - 52 %) 33.7 L MCV (80.0 - 94.0 FL) 92.0 MCH (27.0 - 31.0 PG) 29.0 RDW (11.5 - 14.5 %) 21.5 H Plt Count (130 - 400 /CUMM) 317 MPV (7.4 - 10.4 FL) 8.5 Gran % (42.2 - 75.2 %) 86.0 H Lymphocytes % (20.5 - 51.1 %) 4.7 L Monocytes % (1.7 - 9.3 %) 8.8 Segmented Neutrophils (42.2 - 75.2 %) 86 H Band Neutrophils (0.0 - 5.0 %) 6 H Lymphocytes (20.5 - 51.1 %) 5 L Monocytes (1.7 - 9.3 %) 3 Nucleated RBCs (0.0 - 0.0 /100WBC) 1 H Platelet Estimate (ADEQUATE) ADEQUATE Polychromasia 1+ Hypochromic-Microcytic 1+ Poikilocytosis 1+ Anisocytosis 1+ PUBS MCHC (33.0 - 37.0 G/DL) 31.5 L Other Body Source Fld Total RBCs Counted (%) 100 Last 24 Hours of [place] Results: No recent cultures Assessment/Plan Impression: His condition has deteriorated with increased lethargy, hypotension, fever and leukocytosis now off antibiotics after discontinuation 3 days ago of empiric Vancomycin and Ceftazidime, begun on admission for possible cholecystitis, and discontinuation yesterday of po Vancomycin, begun for possible C. difficile, with the toxin test and PCR negative and with no diarrhea reported overnight. I suspect that he may have aspirated, with his lung exam revealing crackles and rhonchi. Other possible sources of sepsis include his dialysis catheter and his necrotic leg lesions. The candiduria is of unclear significance, with no clear urinary symptoms, status post a two-week course of Fluconazole on his recent admission and do not feel this requires treatment at this time. A flareup of his Crohn's, now on only 5 mg of prednisone daily, is possible though seems less likely with the acute onset of fever and leukocytosis. Suggestion: 1. Follow-up chest x-ray 2. Follow-up CT of the abdomen and pelvis, apparently done earlier today 3. GI input regarding a possible flareup of Crohn's if his diarrhea recurs 4. Follow-up results of blood cultures sent today 5. Would give Vancomycin 1 g IV 1 and Ceftazidime 1 g IV 1 pending above
--- NOTE | 2016-09-02 14:34 | RADIOLOGY REPORT ---
EXAMINATION: XR CHEST CLINICAL INFORMATION: Cough with fever. COMPARISON: Chest x-ray of 08/28/2016 and multiple priors dated back to 06/28/2016. TECHNIQUE: Portable AP view of the chest was obtained. FINDINGS: A right-sided double-lumen central venous catheter is unchanged in configuration with the tips projecting over the lower SVC and cavoatrial junction. The lungs are hypoexpanded. Linear densities in the left lung base may reflect scarring or atelectasis. No focal consolidation, changes of congestion or pleural effusions are seen. No pneumothorax. Degenerative changes at the bilateral acromioclavicular joints and glenohumeral joints. IMPRESSION: Low lung volumes. No radiographic evidence of pneumonia. Linear atelectasis versus scarring in the left lower lung field.
--- NOTE | 2016-09-02 14:40 | CT SCAN REPORT ---
EXAMINATION: CT ABDOMEN AND PELVIS WITHOUT CONTRAST CLINICAL INFORMATION: Abdominal pain. Fever spike. COMPARISON: CT scan of the abdomen and pelvis dated 08/28/2016, 07/24/2016 and 01/24/2016 TECHNIQUE: Multidetector volumetric imaging was performed from the superior aspect of the liver through the pubic symphysis. Sagittal and coronal reformatted images were obtained on the technologist workstation. DLP: 265.60 mGy-cm. FINDINGS: LUNG BASES: There is again seen a small left-sided pleural effusion. Bibasilar patchy opacities are seen in the lung bases, right greater than left, increased on the right side compared to the previous study, either representing progressive atelectasis or subtle pneumonia. Severe atherosclerotic calcifications of the left anterior descending coronary artery and of the right coronary artery are seen. There are increased soft tissue density seen posterior to the nipples bilaterally, incompletely imaged, suggestive of gynecomastia, similar to the prior exam. LIVER, GALLBLADDER, AND BILIARY TREE: The liver is normal in size, shape, and attenuation. No focal hepatic lesion on noncontrast imaging. No biliary ductal dilatation is present. The gallbladder is markedly dilated with a few dependent radiopaque gallstones seen. No gallbladder wall thickening or obvious pericholecystic inflammatory changes. PANCREAS: Diffusely atrophic. No definite mass or peripancreatic stranding/collection. SPLEEN, ADRENAL GLANDS: Unremarkable on noncontrast imaging. KIDNEYS AND URETERS: The kidneys are normal in size, shape, and attenuation. In the mid left kidney, a partially exophytic and contour deforming 3.8 x 4.7 cm diameter low-attenuation masses seen with mean attenuation values of 14 Hounsfield units, most consistent with a cyst. There are some thin focal calcifications seen along the posterior and superior margin of the mass. No hydronephrosis, hydroureter, or calculi seen. No perinephric stranding. BLADDER: Unremarkable. GASTROINTESTINAL TRACT: The small bowel is unremarkable. Redundant colon is seen without focal mass appreciated. The appendix is not visualized. ABDOMINAL WALL: There are midline clips seen extending along the left rectus sheath area No significant hernia formation is seen. LYMPH NODES, VASCULAR: Moderate atherosclerotic calcifications of the aorta are seen. No adenopathy is seen. No free fluid is noted. PELVIC VISCERA: Unremarkable. OSSEOUS STRUCTURES: Shortness status post total left hip arthroplasty with prominent beam hardening artifact obscuring detail in the lower pelvis. Osteopenia is noted. Mild spurring is seen in the lower thoracic spine and in the lower lumbar spine. IMPRESSION: 1. Markedly hydropic gallbladder with cholelithiasis. Similar findings were seen on the previous study. Recent HIDA scan from 08/30/2016 had shown a patent cystic duct, arguing against acute cholecystitis. 2. No biliary dilatation. 3. Small left-sided pleural effusion and associated left basilar atelectasis. 4. Increasing patchy opacity in the right lung base, perhaps related to progressive atelectasis or pneumonia. 5. Mildly complicated left renal cyst with partial cyst wall calcification.
--- NOTE | 2016-09-02 15:11 | PN- Nephrology ---
Assessment/Plan Assessment: 1. ESRD. 2. Fever (recurrent)/hypotension/diarrhea - all cultures negative thus far except for urinary yeast; C. difficile negative 3. Peripheral vascular disease with necrotic skin lesions lower extremities Suggestion: 1. Antibiotic therapy per ID 2. Hemodialysis scheduled for tomorrow Subjective Subjective: Patient febrile today with bouts of hypotension. All cultures negative as was testing for C. difficile. CT scan of abdomen suggests a possible new right lower lobe process but this is not confirmed on chest x-ray. Patient is awake but with his usual lethargy and mild confusion. Objective Vital Signs and I&Os Vital Signs Date Time Temp Pulse Resp B/P Pulse O2 O2 Flow FiO2 Ox Delivery Rate 09/02 1210 100.0 09/02 1111 101.4 09/02 0930 95 Nasal 2.0L Cannula 09/02 0834 101.8 120 22 79/44 94 Nasal Cannula 09/02 0000 Nasal 2.0L Cannula 09/01 2349 97.8 98 20 126/60 98 09/01 2115 98.4 90 18 98/70 99 Room Air 09/01 1600 Nasal 2.0L Cannula 09/01 1532 97.5 94 18 96/60 93 Nasal 2.0L Cannula Intake & Output 09/02 1600 09/02 0400 09/01 1600 09/01 0400 08/31 1600 08/31 0400 Intake Total 100 968 268 3295 450 720 Output Total 400 Balance 100 275 251 7325 50 720 Intake, 1000 Dialysate Intake, Oral 100 360 200 120 450 720 Number 3 1 7 4 Bowel Movements Output, Stool 200 Output, Urine 200 Patient 134 lb 138 lb 137 lb Weight Physical Exam: General: Well-developed white male in NAD Skin: No rash or jaundice; mottled, necrotic, tender areas noted on right lateral leg and medial aspect of left thigh, posterior aspect of the left calf and dorsum of the left foot HEENT: Conjunctivae pale, sclerae anicteric, mucous membranes moist Neck: Without masses or thyromegaly, no supraclavicular or cervical adenopathy; there is a right IJ tunneled dialysis catheter in place Chest: Clear anterolaterally Heart: Regular rate and rhythm without S3 or rub Abdomen: Soft and nontender without palpable masses or organomegaly Extremities: Lower extremity dressing intact; the right upper arm AVF is without pulse, thrill or bruit; there is a right TMA Neuro: Awake, mildly confused, no asterixis or myoclonus Current Medications: Current Medications Sig/Kailash Start time Last Medication Dose Route Stop Time Status Admin Acetaminophen 650 MG Q6P PRN 09/02 1115 AC 09/02 PO 1111 Ceftazidime 1,000 MG ONCE ONE 09/02 1430 DC IV 09/02 1431 Dextrose/Sodium 1,000 ML Q20H 09/02 0800 AC 09/02 Chloride IV 0935 Epoetin Ludwig 6,000 UNIT TUES THURS SAT PRN 08/29 1330 AC IV Erythromycin 1 CHAITANYA 4 TIMES/DAY 08/31 0745 AC 09/02 OPH 1322 Heparin Sodium 5,000 UNIT Q8 08/28 2200 AC 09/02 (Porcine) SC 0600 Insulin Aspart 0 TIDAC 08/30 1200 AC 09/01 SC 1727 Oxycodone/ 2 TAB Q6P PRN 08/30 0800 AC 09/01 Acetaminophen PO 1726 Prednisone 5 MG DAILY 08/29 1000 AC 09/02 PO 0935 Vancomycin HCl 1,000 MG ONCE ONE 09/02 1430 AC Dextrose/Water 250 ML IV 09/02 1529 Results Pertinent Lab Results: Laboratory Tests 09/02 09/01 0757 2245 Chemistry Sodium (137 - 145 mmol/L) 139 140 Potassium (3.5 - 5.1 mmol/L) 4.6 3.9 Chloride (98 - 107 mmol/L) 110 H 106 Carbon Dioxide (22 - 30 mmol/L) 20 L 26 Anion Gap (5 - 16) 10 8 BUN (9 - 20 mg/dL) 12 12 Creatinine (0.7 - 1.2 mg/dL) 3.3 H 2.9 H Estimated GFR (>60 ml/min) 18 L 21 L BUN/Creatinine Ratio (7 - 25 %) 3.6 L 4.1 L Coagulation PT (9.4 - 12.5 SEC) 54.5 *H INR (0.90 - 1.17) 5.28 *H Hematology CBC w Diff MAN DIFF ORDERED WBC (4.8 - 10.8 /CUMM) 21.8 H RBC (4.70 - 6.10 /CUMM) 3.66 L Hgb (14.0 - 18.0 G/DL) 10.6 L Hct (42 - 52 %) 33.7 L MCV (80.0 - 94.0 FL) 92.0 MCH (27.0 - 31.0 PG) 29.0 RDW (11.5 - 14.5 %) 21.5 H Plt Count (130 - 400 /CUMM) 317 MPV (7.4 - 10.4 FL) 8.5 Gran % (42.2 - 75.2 %) 86.0 H Lymphocytes % (20.5 - 51.1 %) 4.7 L Monocytes % (1.7 - 9.3 %) 8.8 Segmented Neutrophils (42.2 - 75.2 %) 86 H Band Neutrophils (0.0 - 5.0 %) 6 H Lymphocytes (20.5 - 51.1 %) 5 L Monocytes (1.7 - 9.3 %) 3 Nucleated RBCs (0.0 - 0.0 /100WBC) 1 H Platelet Estimate (ADEQUATE) ADEQUATE Polychromasia 1+ Hypochromic-Microcytic 1+ Poikilocytosis 1+ Anisocytosis 1+ PUBS MCHC (33.0 - 37.0 G/DL) 31.5 L Other Body Source Fld Total RBCs Counted (%) 100 02/05 02/05 02/ 1130 0600 1245 Chemistry Sodium (137 - 145 mmol/L) 140 Potassium (3.5 - 5.1 mmol/L) 3.1 L Chloride (98 - 107 mmol/L) 106 Carbon Dioxide (22 - 30 mmol/L) 24 Anion Gap (5 - 16) 10 BUN (9 - 20 mg/dL) 14 Creatinine (0.7 - 1.2 mg/dL) 3.1 H Estimated GFR (>60 ml/min) 20 L BUN/Creatinine Ratio (7 - 25 %) 4.5 L Coagulation PT (9.4 - 12.5 SEC) 58.3 *H Cancelled INR (0.90 - 1.17) 5.65 *H Cancelled Hematology CBC w Diff MAN DIFF ORDERED WBC (4.8 - 10.8 /CUMM) 18.2 H RBC (4.70 - 6.10 /CUMM) 3.39 L Hgb (14.0 - 18.0 G/DL) 9.7 L Hct (42 - 52 %) 31.0 L MCV (80.0 - 94.0 FL) 91.6 MCH (27.0 - 31.0 PG) 28.7 RDW (11.5 - 14.5 %) 22.0 H Plt Count (130 - 400 /CUMM) 304 MPV (7.4 - 10.4 FL) 8.3 Gran % (42.2 - 75.2 %) 89.8 H Lymphocytes % (20.5 - 51.1 %) 3.4 L Monocytes % (1.7 - 9.3 %) 6.4 Eosinophils % (0 - 5 %) 0.4 Basophils % (0.0 - 2.0 %) 0 L Absolute Granulocytes (1.4 - 6.5 /CUMM) 16.4 H Segmented Neutrophils (42.2 - 75.2 %) 87 H Band Neutrophils (0.0 - 5.0 %) 5 Absolute Lymphocytes (1.2 - 3.4 /CUMM) 0.6 L Lymphocytes (20.5 - 51.1 %) 4 L Monocytes (1.7 - 9.3 %) 4 Absolute Monocytes (0.10 - 0.60 /CUMM) 1.2 H Absolute Eosinophils (0.0 - 0.7 /CUMM) 0.1 Absolute Basophils (0.0 - 0.2 /CUMM) 0 Platelet Estimate (ADEQUATE) VERIFIED BY SMEAR Polychromasia 1+ Poikilocytosis 1+ Anisocytosis 2+ Ovalocytes 1+ Stomatocytes 1+ PUBS MCHC (33.0 - 37.0 G/DL) 31.4 L 08/31 02/ 0650 1826 Coagulation PT (9.4 - 12.5 SEC) 61.1 *H INR (0.90 - 1.17) 5.92 *H Hematology CBC w Diff NO MAN DIFF REQ NO MAN DIFF REQ WBC (4.8 - 10.8 /CUMM) 8.7 8.1 RBC (4.70 - 6.10 /CUMM) 3.12 L 3.43 L Hgb (14.0 - 18.0 G/DL) 8.9 L 9.6 L Hct (42 - 52 %) 28.7 L 31.4 L MCV (80.0 - 94.0 FL) 91.9 91.4 MCH (27.0 - 31.0 PG) 28.5 28.1 RDW (11.5 - 14.5 %) 22.5 H 22.0 H Plt Count (130 - 400 /CUMM) 325 375 MPV (7.4 - 10.4 FL) 8.2 8.5 Gran % (42.2 - 75.2 %) 76.6 H 83.5 H Lymphocytes % (20.5 - 51.1 %) 12.7 L 7.3 L Monocytes % (1.7 - 9.3 %) 8.8 8.1 Eosinophils % (0 - 5 %) 1.9 0.4 Basophils % (0.0 - 2.0 %) 0 L 0.7 Absolute Granulocytes (1.4 - 6.5 /CUMM) 6.7 H 6.8 H Absolute Lymphocytes (1.2 - 3.4 /CUMM) 1.1 L 0.6 L Absolute Monocytes (0.10 - 0.60 /CUMM) 0.8 H 0.7 H Absolute Eosinophils (0.0 - 0.7 /CUMM) 0.2 0 Absolute Basophils (0.0 - 0.2 /CUMM) 0 0.1 PUBS MCHC (33.0 - 37.0 G/DL) 31.0 L 30.7 L
[2016-09-02 16:15] VITALS: BP 88/54
[2016-09-03 00:54] VITALS: BP 88/50
--- NOTE | 2016-09-03 04:51 | Event Note ---
Event Note Event Note: I was informed by the nursing client service supervisor that patient does not have peripheral IV access and missed his dose of Vancomycin and IV fluid. He became and remained persistently hypotenssive. Central line placment was discussed with his over the phone and she agreed with central line access placment by medical staff. Informed consent was signed. However patient has Mj-cath on the right side of the neck. For this reason and technical difficulty central line placement was postponed and peripheral line placement was tried by ICU nursing staff. Peripheral IV line was placed and flushed. IV hydration was resatrted. Pm cortisol level was checked (low normal) and patient was given one stress dose of IV solucortef 100 mg. Patient maintained a SBP of low 90's and high 80's.
[2016-09-03 04:57] VITALS: BP 130/60
[2016-09-03 05:00] VITALS: BP 104/60
--- NOTE | 2016-09-03 08:15 | PN- Housestaff ---
FELICITA HEATH,MINAL 09/03/16 0814: Subjective Follow-up For: Septicemia secondary to GI and right lower lobe pneumonia Recurrent low blood pressure, probably secondary to steroid insufficiency Complaints: no complaints Subjective: Patient is seen and examined at the dialysis. He was much oriented than yesterday. He was responding to verbal commands. Complaining of pain in the left lower leg. Overnight he has 4 episodes of loose bowel movement. Review of Systems Constitutional: Reports: malaise, weakness. EENTM: Denies: no symptoms. Cardiovascular: Denies: chest pain. Respiratory: Denies: cough, short of breath. Gastrointestinal: Reports: diarrhea. Denies: abdominal pain. Genitourinary: Denies: no symptoms. Musculoskeletal: Reports: muscle pain. Skin: Denies: see HPI. Neurological/Psychological: Reports: confusion, dementia. Objective Last 24 Hrs of Vital Signs/I&O Vital Signs Date Time Temp Pulse Resp B/P Pulse O2 O2 Flow FiO2 Ox Delivery Rate 09/03 0500 104/60 09/03 0457 130/60 09/03 0054 98.3 87 20 88/50 94 Nasal 2.0L Cannula 09/03 0000 Nasal 2.0L Cannula 09/02 1717 96 Nasal 2.0L Cannula 09/02 1615 99.0 100 22 88/54 95 Nasal 2.5L Cannula Intake & Output 09/03 1600 09/03 0800 09/03 0000 Intake Total 425 125 Output Total Balance 425 125 Intake, IV 400 75 Intake, Oral 25 50 Number 2 4 Bowel Movements Patient 112.491 kg Weight Physical Exam General Appearance: Alert, Cooperative, No Acute Distress Skin: multiple wounds IN THE LEFT LOWER LEG HEENT: Atraumatic, PERRLA, EOMI Neck: Supple, No JVD Cardiovascular: Regular Rate, Normal S1, Normal S2 Lungs: Clear to Auscultation Abdomen: Soft, No Tenderness Neurological: Normal Speech Extremities: left Lower leg swelling along with multiple ulcers Vascular: Normal Pulses Assessment/Plan Assessment: Mr. Marvin is a 76-year-old gentleman with past medical history of DVT on Coumadin therapy, hypertension, diabetes, CKD stage V currently on hemodialysis, peripheral vascular disease, left lower extremity necrotizing nonhealing ulcers, history of cellulitis with Pseudomonas. Crohn's disease status post bowel resection and on chronic prednisone therapy, femoral-popliteal bypass surgery, and several glottic edema as well as acute respiratory failure which required an ICU admission in May 2016 who presented to the emergency department from a rehabilitation facility this afternoon afternoon due to decreased mentation, lethargy and hypotension. Patient was in his usual state of health until the early hours 08/28/2016. During afternoon rounds at short-term rehabilitation the patient was found to be pale lethargic and stated that he did not feel well. Communication form states that he had one episode of emesis. Approximately 100 cc. Blood pressure taken at this time was 60/40. Repeat blood pressure after PO fluids showed 70/50. Due to hypotension patient was sent into the ER after 911 was called. 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 Vital signs-temperature 98.3, pulse 87, respiratory 20, blood pressure 88/50, SPO2 94% on nasal cannula Plan - * During hemodialysis, I saw the patient and he was responding to all verbal commands, although his BP was still low to 80/60, we discussed with Dr. Jefferson and started him on stress dose of steroid injection hydrocortisone 50 milligrams IV every 8 hourly * We gave the patient Tylenol for the pain * We started his diet * We started patient on IV ceftazidime 1 gram IV every 24 hours and vancomycin IV after each dialysis, should be dosed after vancomycin trough level * continue erythromycin ointment for eyes, to be given 4 times a day as the patient is complaining of itchy eyes and there was thick secretions coming out. * Discussed with Dr Simeon, if blood pressure goes down to 100/80 than can give boluses of 200cc. * According to Dr Guerra, he will watch for patients clinical course and if it improved then he will follow-up with the patient within a month to reconsider him for AV fistula. Meanwhile dialysis can be done with Tunnel catheter. * PT/INR- 4.34 is high, he was on coumadin, alternate day, so we will hold it for now, repeat it tmr and watch for bleeding. If there is bleeding than we will consider FFP,VitK. * Patient is going for hemodialysis on every Friday, and Friday * Vitals every shift * His blood sugar was slightly high, between 300-400, So we stopped D5 normal saline started him on normal saline * Continue to meausure Bl sugar every 6 hrly and adjust Novalog according to sliding scale. * Code status - DNR/DNI * DVT prophyllaxis - [facility] Problem List: 1. Dehydration 2. Diarrhea 3. Pneumonia 4. Crohns disease 5. Peripheral vascular disease 6. Type 2 diabetes mellitus Pain Ratin (cannt comment due to pt clinic) Pain Location: legs Pain Goal: Remain pain free Pain Plan: mild, on tylenol Tomorrow's Labs & Rationales: cbc, bep, pt/inr DVT/Prophylaxis: mechanical, pharmacological EDGARD JEFFERSON MD 09/03/16 1140: Attending MD Review Statement Attending Statement Attending MD Statement: examined this patient, discuss w/resident/PA/STILL CLEANER, agreed w/resident/PA/STILL CLEANER, reviewed EMR data (avail) Attending Assessment/Plan: 75M extensive PMH including ESRD on HD, chronic necrotic bilateral leg ulcers, history of DVT, Crohn's s/p multiple bowel resections admitted for hypotension, diarrhea, fever. Treated initially with Vancoymcin and Ceftazidime, C.diff negative, initial concern for cholecystitis ruled out by negative HIDA. New onset fever 101 on 09/02 with hypotension 78/46, though this is common for him as a dialysis patient. Patient has audible rhonchi bilaterally but is not bringing up sputum. Diarrhea has improved. Necrotic leg lesions do not appear overtly infected. No tenderneess or erythema at dialysis catheter site. Overnight again hypotensive, given 100mg Solucortef. Vancomycin and Ceftazidime started 09/02. Cultures negative. Patient more arousable today and afebrile overnight. Continues to have loose stools. Plan - Follow blood, urine, sputum cultures - Continue Vancomycin and Ceftazidime - Tolerated HD well today - Will start Solucortef 50mg q8h for stress dose - Follow ID and nephrology recommendations - Continue home medications - DVT PPx
[2016-09-03 08:58] LABS: ABSOLUTE BASOPHIL COUNT 0 /CUMM (0.0-0.2); ABSOLUTE EOSINOPHIL COUNT 0 /CUMM (0.0-0.7); ABSOLUTE LYMPH COUNT 0.4 /CUMM (1.2-3.4); BASOPHIL % 0 % (0.0-2.0); EOSINOPHIL % 0 % (0-5); MEAN PLATELET VOLUME 8.7 FL (7.4-10.4)
[2016-09-03 09:01] LABS: ABSOLUTE GRANULOCYTE CT 15.8 /CUMM (1.4-6.5); ABSOLUTE MONOCYTE COUNT 0.3 /CUMM (0.10-0.60); MEAN CORPUSCULAR HGB 28.9 PG (27.0-31.0); MEAN CORPUSCULAR HGB CONC 31.5 G/DL (33.0-37.0); MEAN CORPUSCULAR VOLUME 91.9 FL (80.0-94.0); PLATELET COUNT 255 /CUMM (130-400); RBC DISTRIBUTION WIDTH 22.4 % (11.5-14.5); RED BLOOD CELL CT 3.08 /CUMM (4.70-6.10); WHITE BLOOD CELL COUNT 16.5 /CUMM (4.8-10.8)
[2016-09-03 09:06] LABS: HEMATOCRIT 28.3 % (42-52)
[2016-09-03 09:26] LABS: PT 44.9 SEC (9.4-12.5)
--- NOTE | 2016-09-03 11:56 | PN- Nephrology ---
Assessment/Plan Assessment: 1. ESRD. 2. Fever (recurrent)/hypotension/diarrhea - probable pneumonia - all cultures negative thus far except for urinary yeast; C. difficile negative 3. Peripheral vascular disease with necrotic skin lesions lower extremities Suggestion: 1. Dialysis today uneventful with no significant ultrafiltration 2. Next hemodialysis for 09/05 3. Antibiotic therapy per ID Subjective Subjective: No significant change. He remains weak with chronic pain in his lower extremities and persistent loose stools. Temp 98.3, Tmax 101.8 yesterday. WBC coming down. Hemodialysis today uneventful. Objective Vital Signs and I&Os Vital Signs Date Time Temp Pulse Resp B/P Pulse O2 O2 Flow FiO2 Ox Delivery Rate 09/03 0500 104/60 09/03 0457 130/60 09/03 0054 98.3 87 20 88/50 94 Nasal 2.0L Cannula 09/03 0000 Nasal 2.0L Cannula 09/02 1717 96 Nasal 2.0L Cannula 09/02 1615 99.0 100 22 88/54 95 Nasal 2.5L Cannula 09/02 1210 100.0 Intake & Output 09/03 1600 09/03 0400 09/02 1600 09/02 0400 09/01 1600 09/01 0400 Intake Total 201 361 4188 634 415 3906 Output Total Balance 648 569 6942 203 315 6191 Intake, 1000 Dialysate Intake, IV 400 75 500 Intake, Oral 25 50 500 360 200 120 Number 2 4 3 1 Bowel Movements Patient 248 lb 134 lb 138 lb 137 lb Weight Physical Exam: General: Well-developed white male in NAD Skin: No rash or jaundice; mottled, necrotic, tender areas noted on right lateral leg and medial aspect of left thigh, posterior aspect of the left calf and dorsum of the left foot HEENT: Conjunctivae pale, sclerae anicteric, mucous membranes moist Neck: Without masses or thyromegaly, no supraclavicular or cervical adenopathy; there is a right IJ tunneled dialysis catheter in place Chest: Clear anterolaterally Heart: Regular rate and rhythm without S3 or rub Abdomen: Soft and nontender without palpable masses or organomegaly Extremities: Lower extremity dressing intact; the right upper arm AVF is without pulse, thrill or bruit; there is a right TMA Neuro: Awake, mildly confused, no asterixis or myoclonus Current Medications: Current Medications Sig/Kailash Start time Last Medication Dose Route Stop Time Status Admin Acetaminophen 650 MG .STK-MED ONE 09/02 1546 DC PO 09/02 1547 Acetaminophen 650 MG Q6P PRN 09/02 1115 AC 09/02 PO 1111 Ceftazidime 1,000 MG ONCE ONE 09/03 0830 DC IV 09/03 0831 Ceftazidime 1,000 MG ONCE ONE 09/02 1430 DC 09/02 IV 09/02 1431 1611 Dextrose/Sodium 1,000 ML Q20H 09/02 0800 AC 09/03 Chloride IV 0426 Epoetin Ludwig 6,000 UNIT TUES THURS SAT PRN 08/29 1330 AC IV Erythromycin 1 CHAITANYA 4 TIMES/DAY 08/31 0745 AC 09/03 OPH 0817 Heparin Sodium 5,000 UNIT Q8 08/28 2200 AC 09/03 (Porcine) SC 0532 Hydrocortisone 50 MG Q8 09/03 1130 AC Sodium Succinate IV Hydrocortisone 100 MG ONE ONE 09/03 0115 DC 09/03 Sodium Succinate IV 09/03 0116 0210 Insulin Aspart 0 TIDAC 08/30 1200 AC 09/03 SC 0817 Oxycodone/ 2 TAB Q6P PRN 08/30 0800 AC 09/03 Acetaminophen PO 0449 Prednisone 5 MG DAILY 08/29 1000 AC 09/02 PO 0935 Vancomycin HCl 1,000 MG ONCE ONE 09/03 0830 DC Dextrose/Water 250 ML IV 09/03 0929 Vancomycin HCl 1,000 MG ONCE ONE 09/02 1430 DC 09/02 Dextrose/Water 250 ML IV 09/02 1529 1612 Results Pertinent Lab Results: Laboratory Tests 09/03 09/03 0730 0028 Chemistry Sodium (137 - 145 mmol/L) 136 L Potassium (3.5 - 5.1 mmol/L) 5.5 H Chloride (98 - 107 mmol/L) 105 Carbon Dioxide (22 - 30 mmol/L) 24 Anion Gap (5 - 16) 7 BUN (9 - 20 mg/dL) 22 H Creatinine (0.7 - 1.2 mg/dL) 4.2 H Estimated GFR (>60 ml/min) 14 L BUN/Creatinine Ratio (7 - 25 %) 5.2 L Calcium (8.4 - 10.2 mg/dL) 8.1 L Cortisol PM Sample (1.7 - 14.1) 6.1 Coagulation PT (9.4 - 12.5 SEC) 44.9 *H INR (0.90 - 1.17) 4.34 *H Hematology CBC w Diff MAN DIFF ORDERED WBC (4.8 - 10.8 /CUMM) 16.5 H RBC (4.70 - 6.10 /CUMM) 3.08 L Hgb (14.0 - 18.0 G/DL) 8.9 L Hct (42 - 52 %) 28.3 L MCV (80.0 - 94.0 FL) 91.9 MCH (27.0 - 31.0 PG) 28.9 RDW (11.5 - 14.5 %) 22.4 H Plt Count (130 - 400 /CUMM) 255 MPV (7.4 - 10.4 FL) 8.7 Gran % (42.2 - 75.2 %) 96.0 H Lymphocytes % (20.5 - 51.1 %) 2.3 L Monocytes % (1.7 - 9.3 %) 1.7 Eosinophils % (0 - 5 %) 0 Basophils % (0.0 - 2.0 %) 0 L Absolute Granulocytes (1.4 - 6.5 /CUMM) 15.8 H Segmented Neutrophils (42.2 - 75.2 %) 89 H Band Neutrophils (0.0 - 5.0 %) 6 H Absolute Lymphocytes (1.2 - 3.4 /CUMM) 0.4 L Lymphocytes (20.5 - 51.1 %) 3 L Monocytes (1.7 - 9.3 %) 2 Absolute Monocytes (0.10 - 0.60 /CUMM) 0.3 Absolute Eosinophils (0.0 - 0.7 /CUMM) 0 Absolute Basophils (0.0 - 0.2 /CUMM) 0 Platelet Estimate (ADEQUATE) ADEQUATE Polychromasia Hypochromic-Microcytic 2+ Poikilocytosis 1+ Anisocytosis 1+ Ovalocytes PUBS MCHC (33.0 - 37.0 G/DL) 31.5 L 09/02 09/01 0757 2245 Chemistry Sodium (137 - 145 mmol/L) 139 140 Potassium (3.5 - 5.1 mmol/L) 4.6 3.9 Chloride (98 - 107 mmol/L) 110 H 106 Carbon Dioxide (22 - 30 mmol/L) 20 L 26 Anion Gap (5 - 16) 10 8 BUN (9 - 20 mg/dL) 12 12 Creatinine (0.7 - 1.2 mg/dL) 3.3 H 2.9 H Estimated GFR (>60 ml/min) 18 L 21 L BUN/Creatinine Ratio (7 - 25 %) 3.6 L 4.1 L Coagulation PT (9.4 - 12.5 SEC) 54.5 *H INR (0.90 - 1.17) 5.28 *H Hematology CBC w Diff MAN DIFF ORDERED WBC (4.8 - 10.8 /CUMM) 21.8 H RBC (4.70 - 6.10 /CUMM) 3.66 L Hgb (14.0 - 18.0 G/DL) 10.6 L Hct (42 - 52 %) 33.7 L MCV (80.0 - 94.0 FL) 92.0 MCH (27.0 - 31.0 PG) 29.0 RDW (11.5 - 14.5 %) 21.5 H Plt Count (130 - 400 /CUMM) 317 MPV (7.4 - 10.4 FL) 8.5 Gran % (42.2 - 75.2 %) 86.0 H Lymphocytes % (20.5 - 51.1 %) 4.7 L Monocytes % (1.7 - 9.3 %) 8.8 Segmented Neutrophils (42.2 - 75.2 %) 86 H Band Neutrophils (0.0 - 5.0 %) 6 H Lymphocytes (20.5 - 51.1 %) 5 L Monocytes (1.7 - 9.3 %) 3 Nucleated RBCs (0.0 - 0.0 /100WBC) 1 H Platelet Estimate (ADEQUATE) ADEQUATE Polychromasia 1+ Hypochromic-Microcytic 1+ Poikilocytosis 1+ Anisocytosis 1+ PUBS MCHC (33.0 - 37.0 G/DL) 31.5 L Other Body Source Fld Total RBCs Counted (%) 100 02/05 02/05 02/04 1130 0600 1245 Chemistry Sodium (137 - 145 mmol/L) 140 Potassium (3.5 - 5.1 mmol/L) 3.1 L Chloride (98 - 107 mmol/L) 106 Carbon Dioxide (22 - 30 mmol/L) 24 Anion Gap (5 - 16) 10 BUN (9 - 20 mg/dL) 14 Creatinine (0.7 - 1.2 mg/dL) 3.1 H Estimated GFR (>60 ml/min) 20 L BUN/Creatinine Ratio (7 - 25 %) 4.5 L Coagulation PT (9.4 - 12.5 SEC) 58.3 *H Cancelled INR (0.90 - 1.17) 5.65 *H Cancelled Hematology CBC w Diff MAN DIFF ORDERED WBC (4.8 - 10.8 /CUMM) 18.2 H RBC (4.70 - 6.10 /CUMM) 3.39 L Hgb (14.0 - 18.0 G/DL) 9.7 L Hct (42 - 52 %) 31.0 L MCV (80.0 - 94.0 FL) 91.6 MCH (27.0 - 31.0 PG) 28.7 RDW (11.5 - 14.5 %) 22.0 H Plt Count (130 - 400 /CUMM) 304 MPV (7.4 - 10.4 FL) 8.3 Gran % (42.2 - 75.2 %) 89.8 H Lymphocytes % (20.5 - 51.1 %) 3.4 L Monocytes % (1.7 - 9.3 %) 6.4 Eosinophils % (0 - 5 %) 0.4 Basophils % (0.0 - 2.0 %) 0 L Absolute Granulocytes (1.4 - 6.5 /CUMM) 16.4 H Segmented Neutrophils (42.2 - 75.2 %) 87 H Band Neutrophils (0.0 - 5.0 %) 5 Absolute Lymphocytes (1.2 - 3.4 /CUMM) 0.6 L Lymphocytes (20.5 - 51.1 %) 4 L Monocytes (1.7 - 9.3 %) 4 Absolute Monocytes (0.10 - 0.60 /CUMM) 1.2 H Absolute Eosinophils (0.0 - 0.7 /CUMM) 0.1 Absolute Basophils (0.0 - 0.2 /CUMM) 0 Platelet Estimate (ADEQUATE) VERIFIED BY SMEAR Polychromasia 1+ Poikilocytosis 1+ Anisocytosis 2+ Ovalocytes 1+ Stomatocytes 1+ PUBS MCHC (33.0 - 37.0 G/DL) 31.4 L
[2016-09-03 16:21] VITALS: BP 155/77
--- NOTE | 2016-09-03 16:44 | PN- Infect Dx ---
Subjective Subjective: MAXIMUM TEMPERATURE 101.8, with temperatures down since yesterday afternoon, now on steroids. His blood pressure has also improved. He feels improved with no specific complaints, but he did have 4 bowel movements recorded overnight. Objective Last 24 Hrs of Vital Signs/I&O Vital Signs Date Time Temp Pulse Resp B/P Pulse O2 O2 Flow FiO2 Ox Delivery Rate 09/03 0500 104/60 09/03 0457 130/60 09/03 0054 98.3 87 20 88/50 94 Nasal 2.0L Cannula 09/03 0000 Nasal 2.0L Cannula 09/02 1717 96 Nasal 2.0L Cannula Intake & Output 09/03 1600 09/03 0800 09/03 0000 Intake Total 425 125 Output Total Balance 425 125 Intake, IV 400 75 Intake, Oral 25 50 Number 2 4 Bowel Movements Patient 248 lb Weight Physical Exam Other Physical Findings: He is more awake and alert, appearing more comfortable Chest tunneled catheter in the right upper chest with no inflammation at the site Lungs are clear anteriorly Heart regular rhythm with no murmur Abdomen is soft, nontender with positive bowel sounds Results Last 24 Hours of Lab Results: Laboratory Tests 09/03 09/03 0730 0028 Chemistry Sodium (137 - 145 mmol/L) 136 L Potassium (3.5 - 5.1 mmol/L) 5.5 H Chloride (98 - 107 mmol/L) 105 Carbon Dioxide (22 - 30 mmol/L) 24 Anion Gap (5 - 16) 7 BUN (9 - 20 mg/dL) 22 H Creatinine (0.7 - 1.2 mg/dL) 4.2 H Estimated GFR (>60 ml/min) 14 L BUN/Creatinine Ratio (7 - 25 %) 5.2 L Calcium (8.4 - 10.2 mg/dL) 8.1 L Cortisol PM Sample (1.7 - 14.1) 6.1 Coagulation PT (9.4 - 12.5 SEC) 44.9 *H INR (0.90 - 1.17) 4.34 *H Hematology CBC w Diff MAN DIFF ORDERED WBC (4.8 - 10.8 /CUMM) 16.5 H RBC (4.70 - 6.10 /CUMM) 3.08 L Hgb (14.0 - 18.0 G/DL) 8.9 L Hct (42 - 52 %) 28.3 L MCV (80.0 - 94.0 FL) 91.9 MCH (27.0 - 31.0 PG) 28.9 RDW (11.5 - 14.5 %) 22.4 H Plt Count (130 - 400 /CUMM) 255 MPV (7.4 - 10.4 FL) 8.7 Gran % (42.2 - 75.2 %) 96.0 H Lymphocytes % (20.5 - 51.1 %) 2.3 L Monocytes % (1.7 - 9.3 %) 1.7 Eosinophils % (0 - 5 %) 0 Basophils % (0.0 - 2.0 %) 0 L Absolute Granulocytes (1.4 - 6.5 /CUMM) 15.8 H Segmented Neutrophils (42.2 - 75.2 %) 89 H Band Neutrophils (0.0 - 5.0 %) 6 H Absolute Lymphocytes (1.2 - 3.4 /CUMM) 0.4 L Lymphocytes (20.5 - 51.1 %) 3 L Monocytes (1.7 - 9.3 %) 2 Absolute Monocytes (0.10 - 0.60 /CUMM) 0.3 Absolute Eosinophils (0.0 - 0.7 /CUMM) 0 Absolute Basophils (0.0 - 0.2 /CUMM) 0 Platelet Estimate (ADEQUATE) ADEQUATE Polychromasia Hypochromic-Microcytic 2+ Poikilocytosis 1+ Anisocytosis 1+ Ovalocytes PUBS MCHC (33.0 - 37.0 G/DL) 31.5 L Last 24 Hours of [place] Results: Blood cultures 2 September 02 negative Recent Imaging Studies: CT of the abdomen and pelvis September 02 reveals a markedly hydropic gallbladder with cholelithiasis, with no biliary dilatation; increasing patchy opacity in the right lung base; small left-sided pleural effusion with associated left basilar atelectasis Chest x-ray September 02 no evidence of pneumonia Assessment/Plan Impression: He appears improved today, more alert and responsive, with no further fevers and with a decrease in his white blood cell count after empiric treatment with Vancomycin and Ceftazidime, begun yesterday for possible sepsis, most likely secondary to pneumonia, with an increased right lower lobe density on the recent CT scan. The gallbladder remains hydropic, but his recent HIDA scan was negative. Other possible sources of sepsis include his dialysis catheter, though his blood cultures are so far negative, and his necrotic leg lesions. The candiduria is of unclear significance, with no clear urinary symptoms and do not feel this requires treatment at this time. A flareup of his Crohn's is also possible, with 4 bowel movements reported yesterday, and he is now on stress steroids. Suggestion: 1. GI input regarding a possible flareup of Crohn's if his diarrhea recurs 2. Sputum culture if able to obtain 3. Follow-up blood cultures 4. Continue Vancomycin after each dialysis per protocol and Ceftazidime 1 g IV every 24
[2016-09-03 19:06] VITALS: BP 91/50
[2016-09-04 00:46] VITALS: BP 90/60
[2016-09-04 07:59] LABS: ABSOLUTE BASOPHIL COUNT 0 /CUMM (0.0-0.2); ABSOLUTE EOSINOPHIL COUNT 0 /CUMM (0.0-0.7); ABSOLUTE LYMPH COUNT 0.6 /CUMM (1.2-3.4); HEMATOCRIT 28.5 % (42-52); MEAN CORPUSCULAR HGB CONC 31.4 G/DL (33.0-37.0)
[2016-09-04 08:00] VITALS: BP 110/60
--- NOTE | 2016-09-04 08:05 | PN- Housestaff ---
FELICITA HEATH,MINAL 09/04/16 0805: Subjective Follow-up For: Steroid-induced adrenal insufficiency Septicemia of unknown origin Right lower lobe pneumonia Chronic kidney disease Complaints: c/o pain in the both legs Subjective: Patient is seen and examined at the bed side. He was consiouse and oriented. C/o one episode of diarrhea and pain in both lower limb. Review of Systems Constitutional: Reports: weakness. Denies: fever. EENTM: Denies: no symptoms. Cardiovascular: Reports: peripheral edema. Denies: chest pain, edema, orthopena, palpitations. Respiratory: Denies: cough, hemoptysis, orthopnea, short of breath, sputum production. Gastrointestinal: Reports: diarrhea. Denies: abdominal pain, bloating, constipation, distention, bowel incontinence, melena, nausea. Genitourinary: Denies: no symptoms. Musculoskeletal: Denies: no symptoms. Skin: Reports: erythema (ulcer). Neurological/Psychological: Denies: no symptoms. Objective Last 24 Hrs of Vital Signs/I&O Vital Signs Date Time Temp Pulse Resp B/P Pulse O2 O2 Flow FiO2 Ox Delivery Rate 09/04 1626 98.2 91 18 124/56 98 09/04 0800 Nasal 2.0L Cannula 09/04 08 97.8 88 20 110/60 98 Nasal Cannula 09/04 0046 98.4 96 20 90/60 96 Nasal 2.5L Cannula 09/04 0000 Nasal 2.0L Cannula Intake & Output 09/04 1600 09/04 0800 09/04 0000 Intake Total 720 450 640 Output Total 0 Balance 720 450 640 Intake, IV 400 400 Intake, Oral 720 50 240 Number 1 1 1 Bowel Movements Output, Urine 0 Patient 65.771 kg Weight Physical Exam General Appearance: Alert, No Acute Distress Skin: No Rashes, No Breakdown HEENT: Atraumatic, PERRLA, EOMI Neck: Supple, No JVD Cardiovascular: Normal S1, Normal S2 Lungs: Clear to Auscultation, Normal Air Movement Abdomen: Soft, No Tenderness Neurological: Normal Speech Extremities: bilateral lower extremeties of ulcer Vascular: Normal Pulses, Pulses Symmetrical Assessment/Plan Assessment: Mr. Marvin is a 76-year-old gentleman with past medical history of DVT on Coumadin therapy, hypertension, diabetes, CKD stage V currently on hemodialysis, peripheral vascular disease, left lower extremity necrotizing nonhealing ulcers, history of cellulitis with Pseudomonas. Crohn's disease status post bowel resection and on chronic prednisone therapy, femoral-popliteal bypass surgery, and several glottic edema as well as acute respiratory failure which required an ICU admission in May 2016 who presented to the emergency department from a rehabilitation facility this afternoon afternoon due to decreased mentation, lethargy and hypotension. Patient was in his usual state of health until the early hours 08/28/2016. During afternoon rounds at short-term rehabilitation the patient was found to be pale lethargic and stated that he did not feel well. Communication form states that he had one episode of emesis. Approximately 100 cc. Blood pressure taken at this time was 60/40. Repeat blood pressure after PO fluids showed 70/50. Due to hypotension patient was sent into the ER after 911 was called. 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 Vital signs-temperature 98.2, pulse 91, respiratory 18, blood pressure 124/56, SPO2 98% on nasal cannula Plan - * Patient is intermittently having fluctuating BP and altered level of consiouness. * We will continue the patient Tylenol for the pain. * We will continue IV ceftazidime 1 gram IV every 24 hours and vancomycin IV after each dialysis, should be dosed after vancomycin trough level. * continue erythromycin ointment for eyes, to be given 4 times a day as the patient is complaining of itchy eyes and there was thick secretions coming out. * Discussed with Dr Simeon, if blood pressure goes down to 100/80 than can give boluses of 200cc. * According to Dr Guerra, he will watch for patients clinical course and if it improved then he will follow-up with the patient within a month to reconsider him for AV fistula. Meanwhile dialysis can be done with Tunnel catheter. * PT/INR- 2.81 is high, he was on coumadin, alternate day,as the iNR is in therapetic range and he is having Hx of APLAS with recurrent thrombosis we started him on Warferin 2.5mg. we will check PT/INR daily and dose it accordingly. * Patient is going for hemodialysis on every Friday, and Friday * Vitals every shift * We will continue normal saline 50 cc/hr * Continue to meausure Bl sugar every 6 hrly and adjust Novalog according to sliding scale. * Code status - DNR/DNI * DVT prophyllaxis - ALPS Problem List: 1. Dehydration 2. Pneumonia 3. Peripheral vascular disease 4. Bilateral vocal cord paralysis 5. Type 2 diabetes mellitus 6. Antiphospholipid antibody syndrome Pain Ratin (severe) Pain Location: both lower legs Pain Goal: Remain pain free Pain Plan: mild Tomorrow's Labs & Rationales: cbc,bep,Pt/INR EDGARD JEFFERSON MD 09/04/16 1154: Attending MD Review Statement Attending Statement Attending MD Statement: examined this patient, discuss w/resident/PA/HAND STRAIGHTENER, agreed w/resident/PA/HAND STRAIGHTENER, reviewed EMR data (avail) Attending Assessment/Plan: 75M extensive PMH including ESRD on HD, chronic necrotic bilateral leg ulcers, history of DVT, Crohn's s/p multiple bowel resections admitted for hypotension, diarrhea, fever. Treated initially with Vancoymcin and Ceftazidime, C.diff negative, initial concern for cholecystitis ruled out by negative HIDA. New onset fever 101 on 09/02 with hypotension 78/46, though this is common for him as a dialysis patient. Diarrhea has improved. Necrotic leg lesions do not appear overtly infected. No tenderneess or erythema at dialysis catheter site. Patient is more awake and alert today. He complains of discomfort of the necrotic lesions on his legs. He denies fever, cough, dyspnea, chest pain, or abdominal pain. Afebrile overnight. WBC has normalized. Cultures negative. Plan - Follow blood, urine, sputum cultures - Continue Vancomycin and Ceftazidime - Continue HD () - Continue Solucortef, will start taper tomorrow - Follow ID and nephrology recommendations - Continue home medications - DVT PPx
[2016-09-04 08:14] LABS: PT 29.2 SEC (9.4-12.5)
[2016-09-04 08:29] LABS: ABSOLUTE MONOCYTE COUNT 0.5 /CUMM (0.10-0.60); BASOPHIL % 0.3 % (0.0-2.0); EOSINOPHIL % 0.1 % (0-5); MEAN CORPUSCULAR HGB 28.9 PG (27.0-31.0); MEAN CORPUSCULAR VOLUME 91.9 FL (80.0-94.0); MEAN PLATELET VOLUME 8.4 FL (7.4-10.4); PLATELET COUNT 263 /CUMM (130-400); RBC DISTRIBUTION WIDTH 22.4 % (11.5-14.5)
[2016-09-04 08:36] LABS: WHITE BLOOD CELL COUNT 7.2 /CUMM (4.8-10.8)
[2016-09-04 08:51] LABS: GRANULOCYTE % 83.8 % (42.2-75.2)
[2016-09-04] MEDS ORDERED: COUMADIN2.5 M1 PO (13:00)
--- NOTE | 2016-09-04 15:27 | PN- Infect Dx ---
Subjective Subjective: Afebrile on steroids. He feels better but still complains of pain from the lower extremity ulcers. He continues to report a cough, which is nonproductive, but denies any shortness of breath or chest pain. He denies diarrhea but did have 8 bowel movements recorded yesterday. Objective Last 24 Hrs of Vital Signs/I&O Vital Signs Date Time Temp Pulse Resp B/P Pulse O2 O2 Flow FiO2 Ox Delivery Rate 09/04 799 Nasal 2.0L Cannula 09/04 799 97.8 88 20 110/60 98 Nasal Cannula 09/04 0046 98.4 96 20 90/60 96 Nasal 2.5L Cannula 09/04 0000 Nasal 2.0L Cannula 09/03 1906 99.1 110 20 91/50 91 Nasal 2.5L Cannula Intake & Output 09/04 1600 09/04 0000 Intake Total 720 450 640 Output Total 0 Balance 720 450 640 Intake, IV 400 400 Intake, Oral 720 50 240 Number 1 1 1 Bowel Movements Output, Urine 0 Patient 145 lb Weight Physical Exam Other Physical Findings: He appears comfortable in no acute distress Chest tunneled dialysis catheter in the right upper chest with no inflammation at the site Lungs are clear anteriorly Heart regular rhythm with no murmur Abdomen is soft, nontender with positive bowel sounds Extremities dressings intact over all his ulcers, which are reportedly clean Results Last 24 Hours of Lab Results: Laboratory Tests 09/04 709 Chemistry Sodium (137 - 145 mmol/L) 135 L Potassium (3.5 - 5.1 mmol/L) 4.3 Chloride (98 - 107 mmol/L) 104 Carbon Dioxide (22 - 30 mmol/L) 24 Anion Gap (5 - 16) 7 BUN (9 - 20 mg/dL) 14 Creatinine (0.7 - 1.2 mg/dL) 2.4 H Estimated GFR (>60 ml/min) 27 L BUN/Creatinine Ratio (7 - 25 %) 5.8 L Coagulation PT (9.4 - 12.5 SEC) 29.2 H INR (0.90 - 1.17) 2.81 H Hematology CBC w Diff NO MAN DIFF REQ WBC (4.8 - 10.8 /CUMM) 7.2 RBC (4.70 - 6.10 /CUMM) 3.10 L Hgb (14.0 - 18.0 G/DL) 8.9 L Hct (42 - 52 %) 28.5 L MCV (80.0 - 94.0 FL) 91.9 MCH (27.0 - 31.0 PG) 28.9 RDW (11.5 - 14.5 %) 22.4 H Plt Count (130 - 400 /CUMM) 263 MPV (7.4 - 10.4 FL) 8.4 Gran % (42.2 - 75.2 %) 83.8 H Lymphocytes % (20.5 - 51.1 %) 8.9 L Monocytes % (1.7 - 9.3 %) 6.9 Eosinophils % (0 - 5 %) 0.1 Basophils % (0.0 - 2.0 %) 0.3 Absolute Granulocytes (1.4 - 6.5 /CUMM) 6.0 Absolute Lymphocytes (1.2 - 3.4 /CUMM) 0.6 L Absolute Monocytes (0.10 - 0.60 /CUMM) 0.5 Absolute Eosinophils (0.0 - 0.7 /CUMM) 0 Absolute Basophils (0.0 - 0.2 /CUMM) 0 PUBS MCHC (33.0 - 37.0 G/DL) 31.4 L Last 24 Hours of [place] Results: Blood cultures September 02 negative Assessment/Plan Impression: Continues to improve with temperatures and white blood cell count now normal Day 2 of empiric treatment with Vancomycin and Ceftazidime for possible pneumonia, with an increased right lower lobe density seen on the recent CT scan. A flareup of his Crohn's is also possible, with 8 bowel movements reported yesterday, and he is now on stress steroids, which might provide some benefit for this. Suggestion: 1. GI input regarding a possible flareup of Crohn's 2. Continue Vancomycin after each dialysis per protocol and Ceftazidime 1 g IV every 24
[2016-09-04 16:26] VITALS: BP 124/56
[2016-09-04 22:18] VITALS: BP 132/64
--- NOTE | 2016-09-05 08:08 | PN- Housestaff ---
FELICITA HEATH,MINAL 09/05/16 0808: Subjective Follow-up For: Steroid-induced adrenal insufficiency Septicemia of unknown origin Right lower lobe pneumonia Chronic kidney disease Complaints: pain in both legs Subjective: Patient is seen and examined at the bed side. He was consiouse and oriented. C/o one episode of diarrhea overnight and pain in both lower limb. Review of Systems Constitutional: Reports: weakness. EENTM: Denies: no symptoms. Cardiovascular: Denies: no symptoms. Respiratory: Denies: no symptoms. Gastrointestinal: Reports: diarrhea. Genitourinary: Denies: no symptoms. Musculoskeletal: Denies: no symptoms (leg pain). Skin: Reports: no symptoms. Neurological/Psychological: Reports: depressed. Objective Last 24 Hrs of Vital Signs/I&O Vital Signs Date Time Temp Pulse Resp B/P Pulse O2 O2 Flow FiO2 Ox Delivery Rate 09/05 1559 98.2 92 18 152/64 99 09/05 0800 96 Nasal 2.0L Cannula 09/05 0000 96 Nasal 2.0L Cannula 09/04 2218 98.1 90 20 132/64 96 Nasal 2.0L Cannula Intake & Output 09/05 1600 09/05 0800 09/05 0000 Intake Total 590 550 880 Output Total 1000 Balance -410 550 880 Intake, IV 150 400 400 Intake, Oral 440 150 480 Number 4 1 3 Bowel Movements Output, 1000 Dialysate Patient 63.503 kg Weight Physical Exam General Appearance: Alert, Oriented X3, Cooperative, No Acute Distress Skin: multiple ulcers in both lower legs HEENT: Atraumatic, PERRLA, EOMI Neck: Supple, No JVD Cardiovascular: Regular Rate, Normal S1, Normal S2 Lungs: Clear to Auscultation Abdomen: Soft, No Tenderness Neurological: Normal Speech Extremities: No Clubbing, No Cyanosis, edema, tenderness, Vascular: Normal Pulses Assessment/Plan Assessment: Mr. Marvin is a 76-year-old gentleman with past medical history of DVT on Coumadin therapy, hypertension, diabetes, CKD stage V currently on hemodialysis, peripheral vascular disease, left lower extremity necrotizing nonhealing ulcers, history of cellulitis with Pseudomonas. Crohn's disease status post bowel resection and on chronic prednisone therapy, femoral-popliteal bypass surgery, and several glottic edema as well as acute respiratory failure which required an ICU admission in May 2016 who presented to the emergency department from a rehabilitation facility this afternoon afternoon due to decreased mentation, lethargy and hypotension. Patient was in his usual state of health until the early hours 08/28/2016. During afternoon rounds at short-term rehabilitation the patient was found to be pale lethargic and stated that he did not feel well. Communication form states that he had one episode of emesis. Approximately 100 cc. Blood pressure taken at this time was 60/40. Repeat blood pressure after PO fluids showed 70/50. Due to hypotension patient was sent into the ER after 911 was called. 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 Vital signs-temperature 98.2, pulse 91, respiratory 18, blood pressure 152/64, SPO2 99% on nasal cannula Vancomycin trough level is - 21.2 Plan - * Patient is intermittently having fluctuating BP and altered level of consiouness. * We will continue the patient Tylenol for the pain. * We will decrease his stress dose of steroid injection hydrocortisone 50 milligrams IV 8 hourly, to BID * We will continue IV ceftazidime 1 gram IV every 24 hours and vancomycin IV after each dialysis, should be dosed after vancomycin trough level. * continue erythromycin ointment for eyes, to be given 4 times a day as the patient is complaining of itchy eyes and there was thick secretions coming out. * Discussed with Dr Simeon, if blood pressure goes down to 100/80 than can give boluses of 200cc. * According to Dr Guerra, he will watch for patients clinical course and if it improved then he will follow-up with the patient within a month to reconsider him for AV fistula. Meanwhile dialysis can be done with Tunnel catheter. * PT/INR- 2.56 is high, he was on coumadin, alternate day,as the iNR is in therapetic range and he is having Hx of APLAS with recurrent thrombosis we started him on Warferin. we will check PT/INR daily and dose it accordingly. we started on 09/04/16, and will give alternate day, so skipped today 09/05/2016 * Patient is going for hemodialysis on every Friday, and Friday * Vitals every shift * We will stop normal saline 50 cc/hr * Continue to meausure Bl sugar every 6 hrly and adjust Novalog according to sliding scale. * Code status - DNR/DNI * DVT prophyllaxis - ALPS Problem List: 1. Dehydration 2. Diarrhea 3. Peripheral vascular disease 4. Type 2 diabetes mellitus 5. CKD (chronic kidney disease) Pain Ratin Pain Location: both lower legs Pain Goal: Remain pain free Pain Plan: mild, tylenol Tomorrow's Labs & Rationales: cbc,bep,pt/inr EDGARD JEFFERSON MD 09/05/16 5516: Attending MD Review Statement Attending Statement Attending MD Statement: examined this patient, discuss w/resident/PA/LEGAL SECRETARY RECEPTIONIST, agreed w/resident/PA/LEGAL SECRETARY RECEPTIONIST, reviewed EMR data (avail)
[2016-09-05 08:49] VITALS: BP 120/60
[2016-09-05 08:59] LABS: PT 26.6 SEC (9.4-12.5)
[2016-09-05 09:17] LABS: ABSOLUTE BASOPHIL COUNT 0 /CUMM (0.0-0.2); ABSOLUTE EOSINOPHIL COUNT 0 /CUMM (0.0-0.7); ABSOLUTE GRANULOCYTE CT 6.1 /CUMM (1.4-6.5); ABSOLUTE LYMPH COUNT 0.5 /CUMM (1.2-3.4); ABSOLUTE MONOCYTE COUNT 0.4 /CUMM (0.10-0.60); BASOPHIL % 0.1 % (0.0-2.0); EOSINOPHIL % 0.1 % (0-5); MEAN CORPUSCULAR HGB 28.3 PG (27.0-31.0); MEAN CORPUSCULAR HGB CONC 30.8 G/DL (33.0-37.0); MEAN CORPUSCULAR VOLUME 91.9 FL (80.0-94.0); MEAN PLATELET VOLUME 8.4 FL (7.4-10.4); RED BLOOD CELL CT 3.16 /CUMM (4.70-6.10)
[2016-09-05 10:15] LABS: GRANULOCYTE % 86.4 % (42.2-75.2); PLATELET COUNT 265 /CUMM (130-400)
--- NOTE | 2016-09-05 10:31 | Discharge Summary ---
Visit Information Visit Dates Admission Date: 08/28/16 Discharge Date: 09/09/2016 Hospital Course Course Attending Physician: EDGARD JEFFERSON MD Primary Care Physician: WAYNE HUGO MD Hospital Course: Mr. Pierce is a 75-year-old gentleman with past medical history of hypertension, diabetes, COPD stage V currently on hemodialysis, peripheral vascular disease, left lower extremity necrotizing nonhealing ulcers, history of cellulitis with Pseudomonas, DVT on Coumadin therapy, Crohn's disease status post bowel resection on chronic prednisone therapy, femur popliteal bypass surgery, severe epiglottic edema as well as acute respiratory failure which required ICU admission in May 2017 who presented to the emergency department from rehabilitation facility on 08/28/2016 with chief complaint of decreased mentation, lethargy and hypotension. Vitals on presentation MAXIMUM TEMPERATURE of 97.6, pulse of 96, respiration of 16, blood pressure of 81/51, 100% saturating on 2 L of nasal cannula. His initial blood pressure on presentation was 79/49, blood pressure improved after IV fluid resuscitation. Patient was alert, cooperative in mild distress on presentation and somnolent, he had dry mucous membranes, normal S1-S2 and regular rate. Lungs were clear to auscultation. Abdominal sound was normal soft tender without any tenderness. Neurological was nonfocal. Extremity no cyanosis, edema or clubbing. Relevant labs white count of 12.8, A/H of 10.1/32.2, platelet of 411. Electrolytes within normal limits, BUN and creatinine of 18/2.9, lactic acid elevated at 3.8 on admission, proBNP 15,600. UA was cloudy, with white blood cells and few epithelial cells. EKG showed normal sinus rhythm, rate of 90, right bundle branch block. CT abdominal and pelvis were distended gallbladder with cholelithiasis without gallbladder wall thickening or pericholecystic fluid, small left pleural effusion. Chest x-ray did not show any acute cardiopulmonary findings, right IJ dual-lumen dialysis catheter was present extending to the right atrium unchanged. Abdominal ultrasound showed markedly distended gallbladder with mild gallbladder wall thickening and a few small stones, no tenderness over the gallbladder, acute cholecystitis cannot be excluded, atrophic right kidney with diffuse cortical thinning and 2 small exophytic cyst were found. Patient was admitted to the telemetry floor Problem list along with assessment and plan : #1 Sespsis secondary to colitis, UTI and pneumonia with a history of Crohn's disease. She was admitted to telemetry floor for continuous pvc monitor. IV hydration was started. He was started on IV vancomycin and ceftazidime and Iv flagyl. All his antihypertensive medications were held initially on admission. ProBNP was found to be elevated. C. difficile stool culture was sent and patient was also started on IV Flagyl as there was a high suspicion for Clostridium difficile infection on presentation. However his C. difficile was negative. He was continued on IV vancomycin, ceftazidime and Flagyl IV pending the head cat scan to rule out any evidence of cholecystitis. Please see below for details. He did a repeat CT of the abdomen and pelvis September 02 revealed a markedly hydropic gallbladder with cholelithiasis with no biliary dilatation, increased patchy opacity in the right lung, small left-sided pleural effusion with associated left basilar atelectasis. As the head is scan was negative, other possible source of sepsis was thought to be dialysis catheter however his blood cultures continue to remain negative.In spite of negative stool toxin study first Clostridium difficile, after which IV Flagyl was discontinued, due to high suspicion PCR for Clostridium difficile infection was sent which was also found to be negative. Patient continued to have 8-10 episodes of diarrhea chronically while inpatient and this was then thought to be secondary to crohns flare. GI was consulted, in by IV vancomycin after each dialysis per protocol and ceftazidime 1 g IV was continued as the patient continued to spike fever. GI saw the patient on September 06 and thought that the CAT scan over the past several months do not show any evidence of polyp inflammation to suggest that the diarrhea was actively inflammatory bowel disease. And therefore the high- dose steroids were discontinued and plan was to taper him off the low-dose prednisone over the course of several weeks. Patient was started on one to 2 tablets of Lomotil before meals, cholestyramine 4 g packets by mouth were also started. Patient completed the entire course of vancomycin and ceftazidime prior to discharge. His empiric treatment was continued for possible pneumonia secondary to right lower lobe density found on the most recent CT scan. Discharge Plan is to taper off steroids eventually S a suspicion of evidence for Crohn's disease with very low. #2 Choledocholithiasis It was also thought that his initial presentation of sepsis could also be secondary to cholecystitis versus choledocholithiasis given the distended and thickened gallbladder wall with cholelithiasis. HIDA scan was done on 2016 which showed very markedly enlarged gallbladder, a patent cystic duct and strong evidence against the diagnosis of acute cholecystitis, common bile duct was patent liver function appear normal #3 UTI Other possibility of initial presentation of sepsis was urinary tract infection with pyuria and chronic dysuria however this seemed to be less likely. #4 Dialysis dependent end-stage renal disease Patient was recently started on dialysis as an inpatient which was continued as an outpatient and [facility] in [place]. He was continued on his outpatient dialysis regimen while inpatient as needed. His usual schedule was just and Saturdays. He continued to receive regular dialysis while inpatient. He is to follow up with outpatient dialysis and delivery driver upon discharge. #5 Uncontrolled diabetes mellitus. Endocrinology was consulted for the management of diabetes. Patient had been on stress dose of steroids and glucose level had been in 200s and 300s. Stress dose of steroids were quickly tapered, he was started on Levemir 5 units daily and NovoLog sliding scale along with bedtime sliding scale was continued.Hydrocortisone was eventually discontinued and patient was discharged on prednisone 5 mg daily. #6 possible pneumonia right lower lobe He recieved entire 7 days of IV vancomycin and ceftazidime for right lower lobe pneumonia while inpatient. He completed the entire treatment while inpatient. He was not discharged on any antibiotics. #7 Antiphospholipid syndrome on chronic anticoagulation with subtherapeutic INR on admission Patient has chronic right upper extremity DVT and is on warfarin. Patient was continued on warfarin(2.5 mg every other day) while inpatient except this was held prior ro procedurea. Allergies: Coded Allergies: Sulfa (Sulfonamide Antibiotics) (Mild, HIVES 06/15/16) Significant Procedures: SERVICE DATE: 08/28/16- EXAM TYPE: CAT - CT ABD & PELVIS W/O IV CONTRAS EXAMINATION: CT ABDOMEN AND PELVIS WITHOUT CONTRAST CLINICAL INFORMATION: Abdominal pain, nausea, vomiting. COMPARISON: 07/24/2016. TECHNIQUE: Contiguous axial thin section helical images of the abdomen and pelvis were performed without oral or IV contrast. The data set was reformatted in the coronal and sagittal planes and reviewed on an independent workstation. DLP: 396 mGy-cm. FINDINGS: There is a small left pleural effusion. There is mild dependent bibasilar atelectasis.. The visualized portions of the heart are unremarkable. The liver is of normal size and attenuation without focal lesions nor intrahepatic biliary ductal dilation. The gallbladder is distended. There are a few small layering calculi. There is no gallbladder wall thickening or pericholecystic fluid. The spleen, pancreas, adrenal glands are unremarkable. Both kidneys are of normal size and attenuation without hydronephrosis or nephrolithiasis. There is a 5 cm cyst within the upper pole of the left kidney. There is no abdominal free fluid. There is neither mesenteric nor retroperitoneal lymphadenopathy. There are diffuse vascular calcifications present. Normal unopacified loops of small and large bowel are identified. There is no pelvic free fluid. A Can catheter is present within the decompressed urinary bladder. There is neither pelvic nor inguinal lymphadenopathy. Bone windows: Neither sclerotic nor lytic bone lesions are identified. A left hip prosthesis is intact. IMPRESSION: Distended gallbladder with cholelithiasis without gallbladder wall thickening or pericholecystic fluid. SERVICE DATE: 08/28/16-1435 EXAM TYPE: RAD - XRY-PORTABLE CHEST XRAY EXAMINATION: XR PORTABLE CHEST FINDINGS: There is a right IJ dual lumen dialysis catheter extending into the right atrium, unchanged. The cardiomediastinal silhouette appears stable and within normal limits apart from some calcification at the aortic knob. The right lung appears clear. The patient is rotated and the left suprahilar vascular structures appear asymmetrically prominent, likely due to position. No convincing superimposed consolidation or evidence of pulmonary edema. No pleural effusions or pneumothoraces. Some faint clips project over the left upper quadrant of the abdomen corresponding to some apparent abdominal wall clips on the prior CT of 07/24/2016. IMPRESSION: Rotated image without convincing acute abnormality. SERVICE DATE: 08/29/16- EXAM TYPE: US - US-LIMITED ABDOMEN IMPRESSION: 1. Markedly distended gallbladder with mild gallbladder wall thickening and a few small stones. Although there is no tenderness over the gallbladder, acute cholecystitis cannot be excluded. 2. Atrophic right kidney with diffuse cortical thinning and 2 small exophytic cysts. SERVICE DATE: 09/02/16- EXAM TYPE: CAT - CT ABD & PELVIS W/O IV CONTRASt IMPRESSION: 1. Markedly hydropic gallbladder with cholelithiasis. Similar findings were seen on the previous study. Recent HIDA scan from 08/30/2016 had shown a patent cystic duct, arguing against acute cholecystitis. 2. No biliary dilatation. 3. Small left-sided pleural effusion and associated left basilar atelectasis. 4. Increasing patchy opacity in the right lung base, perhaps related to progressive atelectasis or pneumonia. 5. Mildly complicated left renal cyst with partial cyst wall calcification. SERVICE DATE: 09/02/16- EXAM TYPE: RAD - XRY-PORTABLE CHEST XRAY IMPRESSION: Low lung volumes. No radiographic evidence of pneumonia. Linear atelectasis versus scarring in the left lower lung field. Disposition Summary Disposition Principal Diagnosis: #1 Sespsis secondary to colitis, UTI and pneumonia with a history of Crohn's disease. #2 Choledocholithiasis #3 UTI #4 Dialysis dependent end-stage renal disease Additional Diagnosis: #5 Uncontrolled diabetes mellitus. #6 possible pneumonia right lower lobe #7 Antiphospholipid syndrome on chronic anticoagulation with subtherapeutic INR on admission Discharge Disposition: SNF Discharge Instructions General Discharge Information Code Status: Do Not Resucitate/Intubat Patient's Diet: renal dialysis diet nectar thick liquids. Patient's Activity: as tolerated. Follow-Up Instructions/Appts: please follow up with your pcp and delivery driver and vascular upon discharge. Please continue to mariusz your medications as prescribd. We are holding your BP medications. Please continue to follow up with your PCP and adjust BP medication as needed. we have not been given coumadin today due to alternate day dosage. please draw inr tomrrow and odse coumadin i.e 09/09/16 Medications at Discharge Discharge Medications: Stop taking the following medications: Carvedilol (Carvedilol) 25 MG TABLET ORAL TWICE DAILY Qty = 60 Continue taking these medications: Cyanocobalamin (Vitamin B-12) 1,000 MCG TABLET 1 Tablet ORAL DAILY Comments: NOT GIVEN IN HOSPITAL Ferrous Sulfate (Ferrous Sulfate) 325 MG (65 MG IRON) TABLET 1 Tablet ORAL THREE TIMES DAILY Comments: NOT GIVEN IN HOSPITAL Calcitriol (Rocaltrol) 0.25 MCG CAPSULE 1 Capsule ORAL DAILY Comments: NOT GIVEN IN HOSPITAL Sevelamer Carbonate (Renvela) 800 MG TABLET 1 Tablet ORAL TIDWM Instructions: RESTART WHEN PHOS LEVEL >3.5 Comments: DID NOT RECEIVE IN HOSPITAL Calcium Carbonate/Vitamin D3 (Os-Vishal 500+D3 Caplet) 500 MG-600 TABLET 1 Tablet ORAL THREE TIMES DAILY Comments: NOT GIVEN IN HOSPITAL Sodium Hypochlorite (Dakin's) 0.5 % SOLUTION 1 Application On the skin TWICE DAILY Days = 20 Comments: Last Taken: 08/21/16 Time: 1200PM Nephro-Vitamins (Nephro-Arthur Tablet) 0.8 MG TABLET 1 Tablet ORAL DAILY Days = 28 Comments: DID NOT RECEIVE IN HOSPITAL Insulin Detemir (Levemir) 100 UNIT/ML VIAL 5 Units Inject into fatty tissue DAILY Days = 28 Comments: Last Taken: 09/09/16 Time: 10:00 AM Oxycodone HCl/Acetaminophen (Percocet 5-325 MG Tablet) 5 MG-325 MG TABLET 2 Tablet ORAL EVERY 8 HOURS NEEDED as needed for PAIN SCALE 4-6 (MODERATE ) Qty = 15 Comments: Last Taken: 09/09/16 Time: 2:00 PM Omeprazole Magnesium (Prilosec Otc) 20 MG TABLET. 2 Tablet ORAL DAILY Qty = 30 Comments: DID NOT RECEIVE IN HOSPITAL Atorvastatin Calcium (Atorvastatin Calcium) 40 MG TABLET 1 Tablet ORAL DAILY Qty = 30 Comments: NOT GIVEN IN HOSPITAL B Complex & C No.20/Folic Acid (Nephrocaps Softgel) 1 MG CAPSULE 1 Capsule ORAL DAILY Qty = 30 Comments: NOT GIVEN IN HOSPITAL Aspirin (Ecotrin*) 81 MG TABLET.DR 1 Tablet ORAL DAILY Qty = 30 Comments: DID NOT RECEIVE IN HOSPITAL Guaifenesin (Mucinex) 600 MG TAB.ER.12H 1 Tablet ORAL TWICE DAILY Qty = 20 Comments: DID NOT RECEIVE IN HOSPITAL Sodium Chloride (Saline Nasal Kimball) 0.65 % SPRAY 1 Kimball Both sides of nose 4 TIMES A DAY as needed for dRY NOSE Qty = 60 Comments: NOT GIVEN IN HOSPITAL Insulin Aspart (Novolog) 100 UNIT/ML VIAL 0 Units Inject into fatty tissue SEE INSTRUCTIONS Qty = 10 Instructions: BEFORE MEALS Blood Insulin Sugar Units <80 0 80-99 0 100-150 4 151-200 5 201-250 6 251-300 7 301-350 8 351-400 9 >400 Call MD AT BEDTIME Blood Insulin Sugar Units <80 0 81-100 0 101-200 0 201-250 0 251-300 2 301-350 3 351-400 4 >400 Call Doctor, 5 units Comments: Last Taken: 09/09/16 Time: 5:00 PM Warfarin Sodium (Coumadin) 2.5 MG TABLET 1 Tablet ORAL Every other day Comments: Last Taken: 09/08/16 Time: 8:00 PM Prednisone (Prednisone) 5 MG TABLET 1 Tablet ORAL DAILY Qty = 30 Instructions: arenal insufficinecy Comments: Last Taken: 09/09/16 Time: 10:00 AM This prescription has been renewed Copies To: OANH HEATH,WAYNE Posada; LISA HEATH,LIVE Ayala; SAMM HEATH,STEW Jarquin; OLEG WILLS MD; BROOKE HEATH,DANIEL Attending MD Review Statement Documenting Attending: EDGARD JEFFERSON MD
--- NOTE | 2016-09-05 11:38 | PN- Nephrology ---
Assessment/Plan Assessment: 1. ESRD. 2. Fever (recurrent, now afebrile on steroids and antibiotics)/hypotension/ diarrhea - probable pneumonia - all cultures negative thus far except for urinary yeast; C. difficile negative 3. Peripheral vascular disease with necrotic skin lesions lower extremities Suggestion: 1. Dialysis today uneventful with less than 1 L ultrafiltration 2. Next hemodialysis for Thursday 09/07 3. Antibiotic therapy per ID Subjective Subjective: Patient had a loose bowel movement during dialysis today. Otherwise he looks and feels better. Lower extremity pains and dry cough unchanged. He has been afebrile for several days, on steroids. Objective Vital Signs and I&Os Vital Signs Date Time Temp Pulse Resp B/P Pulse O2 O2 Flow FiO2 Ox Delivery Rate 09/05 0000 96 Nasal 2.0L Cannula 09/04 2218 98.1 90 20 132/64 96 Nasal 2.0L Cannula 09/04 1626 98.2 91 18 124/56 98 Intake & Output 09/05 1600 09/05 0400 09/04 1600 09/04 0400 09/03 1600 09/03 0400 Intake Total 585 546 6675 640 1625 125 Output Total 0 Balance 558 085 2417 640 1625 125 Intake, IV 400 400 961 299 7455 75 Intake, Oral 150 480 770 240 625 50 Number 1 3 2 1 5 4 Bowel Movements Output, Urine 0 Patient 140 lb 145 lb 248 lb Weight Physical Exam: General: Well-developed white male in NAD Skin: No rash or jaundice; mottled, necrotic, tender areas noted on right lateral leg and medial aspect of left thigh, posterior aspect of the left calf and dorsum of the left foot HEENT: Conjunctivae pale, sclerae anicteric, mucous membranes moist Neck: Without masses or thyromegaly, no supraclavicular or cervical adenopathy; there is a right IJ tunneled dialysis catheter in place Chest: Clear anterolaterally Heart: Regular rate and rhythm without S3 or rub Abdomen: Soft and nontender without palpable masses or organomegaly Extremities: Lower extremity dressing intact; the right upper arm AVF is without pulse, thrill or bruit; there is a right TMA Neuro: Awake, communicative, no asterixis or myoclonus Results Pertinent Lab Results: Laboratory Tests 09/05 09/04 UNK 0710 Chemistry Sodium (137 - 145 mmol/L) 135 L 135 L Potassium (3.5 - 5.1 mmol/L) 4.3 4.3 Chloride (98 - 107 mmol/L) 103 104 Carbon Dioxide (22 - 30 mmol/L) 22 24 Anion Gap (5 - 16) 10 7 BUN (9 - 20 mg/dL) 23 H 14 Creatinine (0.7 - 1.2 mg/dL) 3.0 H 2.4 H Estimated GFR (>60 ml/min) 21 L 27 L BUN/Creatinine Ratio (7 - 25 %) 7.7 5.8 L Coagulation PT (9.4 - 12.5 SEC) 26.6 H 29.2 H INR (0.90 - 1.17) 2.56 H 2.81 H Hematology CBC w Diff NO MAN DIFF REQ NO MAN DIFF REQ WBC (4.8 - 10.8 /CUMM) 7.0 7.2 RBC (4.70 - 6.10 /CUMM) 3.16 L 3.10 L Hgb (14.0 - 18.0 G/DL) 8.9 L 8.9 L Hct (42 - 52 %) 29.0 L 28.5 L MCV (80.0 - 94.0 FL) 91.9 91.9 MCH (27.0 - 31.0 PG) 28.3 28.9 RDW (11.5 - 14.5 %) 22.0 H 22.4 H Plt Count (130 - 400 /CUMM) 265 263 MPV (7.4 - 10.4 FL) 8.4 8.4 Gran % (42.2 - 75.2 %) 86.4 H 83.8 H Lymphocytes % (20.5 - 51.1 %) 7.7 L 8.9 L Monocytes % (1.7 - 9.3 %) 5.7 6.9 Eosinophils % (0 - 5 %) 0.1 0.1 Basophils % (0.0 - 2.0 %) 0.1 0.3 Absolute Granulocytes (1.4 - 6.5 /CUMM) 6.1 6.0 Absolute Lymphocytes (1.2 - 3.4 /CUMM) 0.5 L 0.6 L Absolute Monocytes (0.10 - 0.60 /CUMM) 0.4 0.5 Absolute Eosinophils (0.0 - 0.7 /CUMM) 0 0 Absolute Basophils (0.0 - 0.2 /CUMM) 0 0 PUBS MCHC (33.0 - 37.0 G/DL) 30.8 L 31.4 L Toxicology Vancomycin Trough (10.0 - 20.0 ug/mL) 21.2 H 09/03 09/03 0730 0028 Chemistry Sodium (137 - 145 mmol/L) 136 L Potassium (3.5 - 5.1 mmol/L) 5.5 H Chloride (98 - 107 mmol/L) 105 Carbon Dioxide (22 - 30 mmol/L) 24 Anion Gap (5 - 16) 7 BUN (9 - 20 mg/dL) 22 H Creatinine (0.7 - 1.2 mg/dL) 4.2 H Estimated GFR (>60 ml/min) 14 L BUN/Creatinine Ratio (7 - 25 %) 5.2 L Calcium (8.4 - 10.2 mg/dL) 8.1 L Cortisol PM Sample (1.7 - 14.1) 6.1 Coagulation PT (9.4 - 12.5 SEC) 44.9 *H INR (0.90 - 1.17) 4.34 *H Hematology CBC w Diff MAN DIFF ORDERED WBC (4.8 - 10.8 /CUMM) 16.5 H RBC (4.70 - 6.10 /CUMM) 3.08 L Hgb (14.0 - 18.0 G/DL) 8.9 L Hct (42 - 52 %) 28.3 L MCV (80.0 - 94.0 FL) 91.9 MCH (27.0 - 31.0 PG) 28.9 RDW (11.5 - 14.5 %) 22.4 H Plt Count (130 - 400 /CUMM) 255 MPV (7.4 - 10.4 FL) 8.7 Gran % (42.2 - 75.2 %) 96.0 H Lymphocytes % (20.5 - 51.1 %) 2.3 L Monocytes % (1.7 - 9.3 %) 1.7 Eosinophils % (0 - 5 %) 0 Basophils % (0.0 - 2.0 %) 0 L Absolute Granulocytes (1.4 - 6.5 /CUMM) 15.8 H Segmented Neutrophils (42.2 - 75.2 %) 89 H Band Neutrophils (0.0 - 5.0 %) 6 H Absolute Lymphocytes (1.2 - 3.4 /CUMM) 0.4 L Lymphocytes (20.5 - 51.1 %) 3 L Monocytes (1.7 - 9.3 %) 2 Absolute Monocytes (0.10 - 0.60 /CUMM) 0.3 Absolute Eosinophils (0.0 - 0.7 /CUMM) 0 Absolute Basophils (0.0 - 0.2 /CUMM) 0 Platelet Estimate (ADEQUATE) ADEQUATE Polychromasia Hypochromic-Microcytic 2+ Poikilocytosis 1+ Anisocytosis 1+ Ovalocytes PUBS MCHC (33.0 - 37.0 G/DL) 31.5 L
[2016-09-05 15:59] VITALS: BP 152/64
[2016-09-06 00:12] VITALS: BP 160/52
[2016-09-06 08:23] VITALS: BP 125/48
--- NOTE | 2016-09-06 08:44 | PN- Housestaff ---
FELICITA HEATH,MINAL 09/06/16 0844: Subjective Follow-up For: Steroid-induced adrenal insufficiency Septicemia of unknown origin Right lower lobe pneumonia Chronic kidney disease Complaints: pain in both legs and wants Imodium for diarrhea Subjective: Patient is seen and examined at the bed side. He was consiouse and oriented. C/o couple of episodes of diarrhea overnight and pain in both lower limb. Review of Systems Constitutional: Reports: weakness. Denies: chills, diaphoresis, fever, malaise. EENTM: Denies: no symptoms. Cardiovascular: Denies: chest pain, edema, orthopena, palpitations, peripheral edema. Respiratory: Denies: cough, hemoptysis, orthopnea, short of breath, sputum production, stridor. Gastrointestinal: Reports: diarrhea. Denies: abdominal pain, bloating, constipation, distention, bowel incontinence, melena, nausea, bloody stool, changes in stool. Genitourinary: Denies: no symptoms. Musculoskeletal: Denies: no symptoms. Skin: Reports: no symptoms (ulcer). Neurological/Psychological: Denies: anxiety, depressed. Objective Last 24 Hrs of Vital Signs/I&O Vital Signs Date Time Temp Pulse Resp B/P Pulse O2 O2 Flow FiO2 Ox Delivery Rate 09/06 0823 97.4 74 16 125/48 98 Room Air 09/06 0012 98.0 94 20 160/52 97 09/06 0000 Nasal 2.0L Cannula 09/05 1600 Nasal 2.0L Cannula 09/05 1559 98.2 92 18 152/64 99 Intake & Output 09/06 1600 09/06 0800 09/06 0000 Intake Total 665 Output Total Balance 665 Intake, IV 15 Intake, Oral 650 Number 1 5 Bowel Movements Physical Exam General Appearance: Alert, Oriented X3, Cooperative, No Acute Distress Skin: multiple ulcers in both lower legs HEENT: Atraumatic, PERRLA, EOMI Neck: Supple, No JVD Cardiovascular: Regular Rate, Normal S1, Normal S2 Lungs: Clear to Auscultation Abdomen: Soft, No Tenderness Neurological: Normal Speech Extremities: No Clubbing, No Cyanosis, edema on leg with multiple ulcers Vascular: Normal Pulses, Pulses Symmetrical Assessment/Plan Assessment: Mr. Marvin is a 76-year-old gentleman with past medical history of DVT on Coumadin therapy, hypertension, diabetes, CKD stage V currently on hemodialysis, peripheral vascular disease, left lower extremity necrotizing nonhealing ulcers, history of cellulitis with Pseudomonas. Crohn's disease status post bowel resection and on chronic prednisone therapy, femoral-popliteal bypass surgery, and several glottic edema as well as acute respiratory failure which required an ICU admission in May 2016 who presented to the emergency department from a rehabilitation facility this afternoon afternoon due to decreased mentation, lethargy and hypotension. Patient was in his usual state of health until the early hours 08/28/2016. During afternoon rounds at short-term rehabilitation the patient was found to be pale lethargic and stated that he did not feel well. Communication form states that he had one episode of emesis, approximately 100 cc. Blood pressure taken at this time was 60/40. Repeat blood pressure after PO fluids showed 70/50. Due to hypotension patient was sent into the ER after 911 was called. 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 Vital signs-temperature 97.4, pulse 74, respiratory 16, blood pressure 125/48, SPO2 98% on nasal cannula Vancomycin trough level is - 21.2 Plan - * Patient is intermittently having fluctuating BP and altered level of consiouness. * We will continue the patient Tylenol for the pain. * We will decrease his stress dose of steroid injection hydrocortisone 50 mgs IV OD * We will continue IV ceftazidime 1 gram IV every 24 hours and vancomycin IV after each dialysis. Vancomycin should be dosed after vancomycin trough level. We will stop antibiotic on 09/07/16. * continue erythromycin ointment for eyes, to be given 4 times a day as the patient is complaining of itchy eyes and there was thick secretions coming out. * Discussed with Dr Simeon, if blood pressure goes down to 100/80 than can give boluses of 200cc. * According to Dr Guerra, he will watch for patients clinical course and if it improved then he will follow-up with the patient within a month to reconsider him for AV fistula. Meanwhile dialysis can be done with Tunnel catheter. * PT/INR- 1.87, he was on alternate day coumadin and he is having Hx of APLAS with recurrent thrombosis we started him on Warferin on 09/04/16, and will give it today. We will recheck PT/INR daily * Patient is going for hemodialysis on every Friday, and Friday * Vitals every shift * Continue to meausure Bl sugar every 6 hrly and adjust Novalog according to sliding scale. * As requested by , we placed consult for DR Hilton. * According to Gi he was well evaluated in past, and never had any evidence of Crohns disease. They advised to restart 1-2 tablets of Lomotil to be given before meals and cholestyramine 4 g packets by mouth twice a day. * we will also follow stool for calprotectin * Code status - DNR/DNI * DVT prophyllaxis - ALPS Problem List: 1. Dehydration 2. Diarrhea 3. Pneumonia 4. Peripheral vascular disease 5. Type 2 diabetes mellitus Pain Ratin Pain Location: both lower legs Pain Goal: Remain pain free Pain Plan: mild Tomorrow's Labs & Rationales: cbc,bep,pt/inr DVT/Prophylaxis: mechanical, pharmacological APERGIS EDGARD HEATH 09/06/16 1139: Attending Review Statement Attending Statement Attending MD Statement: examined this patient, discuss w/resident/PA/CUSTOMER SERVICE REPRESENTATIVE TEACHER, agreed w/resident/PA/CUSTOMER SERVICE REPRESENTATIVE TEACHER, reviewed EMR data (avail) Attending Assessment/Plan: 75M extensive PMH including ESRD on HD, chronic necrotic bilateral leg ulcers, history of DVT, Crohn's s/p multiple bowel resections admitted for hypotension, diarrhea, fever. Treated initially with Vancoymcin and Ceftazidime, C.diff negative, initial concern for cholecystitis ruled out by negative HIDA. New onset fever 101 on 09/02 with hypotension 78/46, though this is common for him as a dialysis patient. Diarrhea has improved. Necrotic leg lesions do not appear overtly infected. No tenderneess or erythema at dialysis catheter site. Patient is more awake and alert today. He complains of discomfort of the necrotic lesions on his legs. He denies fever, cough, dyspnea, chest pain, or abdominal pain. Afebrile overnight. WBC has normalized. Cultures negative. Plan - Follow blood, urine, sputum cultures - Continue Vancomycin and Ceftazidime - Continue HD (/) - Continue steroid taper - Wound care evaluation of necrotic leg ulcers - Follow ID and nephrology recommendations - Continue home medications - DVT PPx - PT evaluation. Will likely require placement early next week,
[2016-09-06 08:46] LABS: PT 19.5 SEC (9.4-12.5)
--- NOTE | 2016-09-06 09:08 | Cons- Gastroenterology ---
General Information and HPI Consulting Request Date of Consult: 09/06/16 Requested By: EDGARD JEFFERSON MD Reason for Consult: Diarrhea, history of crohns disease Source of Information: patient, old records Exam Limitations: no limitations History of Present Illness: Mr. Marvin is a 75-year-old male with multiple medical problems including end -stage renal disease now on hemodialysis, peripheral vascular disease with non- healing LE ulcers and a remote history of Crohn's disease for which she underwent a subtotal colectomy approximately 30 years ago and has been maintained on chronic prednisone ever since who was admitted to [facility] on 08/28/16 with a UTI/pyelonephritis after a prolonged hospitalization for respiratory failure in May 2016 for which he was admitted for several months. He was transferred from a rehabilitation facility for hypotension and generalized malaise on 08/28/2016 after receiving hemodialysis the day before. At that time he was also reporting significant diarrhea which the patient tells me now is not much different from his baseline. He has been without any significant abdominal pain, or rectal bleeding. He did report some vomiting on admission which has not persisted. He was admitted to the medical service and started on antibiotics for a urinary tract infection and he has been afebrile hemodynamic stable since admission, but has continued to have diarrhea. According to nursing shortly after eating he will have profuse watery diarrhea without any blood. A stool sample was negative for C. difficile toxin and a stool culture was also negative. He has been maintained on 5 mg of prednisone since admission and yesterday was placed on IV hydrocortisone. He has not been given Imodium or Lomotil for his diarrhea which she notes that he takes at home and generally controls his diarrhea well or at least it makes it tolerable. Allergies/Medications Allergies: Coded Allergies: Sulfa (Sulfonamide Antibiotics) (Mild, HIVES 06/15/16) Home Med List: Aspirin (Ecotrin*) 81 MG TABLET.DR 1 TAB PO DAILY hEART hEALTH Atorvastatin Calcium 40 MG TABLET 1 TAB PO DAILY HIGH LIPIDS B Complex & C No.20/Folic Acid (Nephrocaps Softgel) 1 MG CAPSULE 1 CAP PO DAILY SUPPLEMENT Calcium Carbonate/Vitamin D3 (Os-Vishal 500+D3 Caplet) 500 MG-600 TABLET 1 TAB PO TID SUPPLEMENT (Reported) Cyanocobalamin (Vitamin B-12) (Vitamin B-12) 500 MCG TABLET 2 TAB PO DAILY ANEMIA (Reported) Ferrous Sulfate 325 MG (65 MG IRON) TABLET 1 TAB PO TID SUPPLEMENT (Reported) Guaifenesin (Mucinex) 600 MG TAB.ER.12H 1 TAB PO BID cONGESTION Insulin Aspart (Novolog) 100 UNIT/ML VIAL 0 UNITS SC SEE ADMIN CRITERIA BEFORE MEALS Blood Insulin Sugar Units <80 0 80-99 0 100-150 4 151-200 5 201-250 6 251-300 7 301-350 8 351-400 9 >400 Call MD AT BEDTIME Blood Insulin Sugar Units <80 0 81-100 0 101-200 0 201-250 0 251-300 2 301-350 3 351-400 4 >400 Call Doctor, 5 units Insulin Detemir (Levemir) 100 UNIT/ML VIAL 5 UNITS SC DAILY diabetes Nephro-Vitamins (Nephro-Arthur Tablet) 0.8 MG TABLET 1 TAB PO DAILY kidney Omeprazole 20 MG CAPSULE.DR 1 CAP PO DAILY GI (Reported) Oxycodone HCl/Acetaminophen (Percocet 5-325 MG Tablet) 5 MG-325 MG TABLET 2 TAB PO Q8P PRN PAIN SCALE 4-6 (MODERATE) Prednisone 5 MG TABLET 1 TAB PO DAILY Adrenals arenal insufficinecy Sevelamer Carbonate (Renvela) 800 MG TABLET 1 TAB PO TIDWM KIDNEYS (Reported) RESTART WHEN PHOS LEVEL >3.5 Sodium Chloride (Saline Nasal [place]) 0.65 % SPRAY 1 SPRAY NASB 4 TIMES/DAY PRN dRY NOSE Warfarin Sodium (Coumadin) 2.5 MG TABLET 1 TAB PO EOD apla (Reported) Current Medications: Current Medications Sig/Kailash Start time Last Medication Dose Route Stop Time Status Admin Acetaminophen 650 MG Q6P PRN 09/02 1115 AC 09/06 PO 0809 Ceftazidime 1,000 MG Q24H 09/04 1999 AC 09/05 IV 2005 Epoetin Ludwig 6,000 UNIT TUES THURS SAT PRN 08/29 1330 AC IV Erythromycin 1 CHAITANYA 4 TIMES/DAY 08/31 0745 AC 09/04 OPH 2144 Heparin Sodium 5,000 UNIT Q8 08/28 2200 AC 09/06 (Porcine) SC 0535 Hydrocortisone 50 MG BID 09/05 1000 AC 09/05 Sodium Succinate IV 2129 Insulin Aspart 0 TIDAC/HS 09/06 0804 AC 09/06 SC 0817 Insulin Aspart 0 TIDAC/HS 09/06 0800 DC SC Insulin Aspart 4 UNITS ONCE ONE 09/05 2130 DC 09/05 SC 09/05 2131 2145 Insulin Aspart 0 TIDAC 09/04 0800 DC 09/05 SC 1729 Oxycodone/ 2 TAB Q6P PRN 08/30 0800 DC 09/03 Acetaminophen PO 0449 Prednisone 5 MG DAILY 08/29 1000 AC 09/05 PO 1208 Vancomycin HCl 250 MG ONCE ONE 09/05 1300 DC 09/05 Sodium Chloride 100 ML IV 09/05 1359 1330 Vancomycin HCl See Dose TuThSa PRN 09/05 1215 AC Insts (1) IV Vancomycin HCl 1,000 MG TUES THURS SAT 09/05 1000 DC Dextrose/Water 250 ML IV Dose Instructions: (1)Vancomycin HCl: dose based on Vanco random level prior to dialysis on dialysis days Past History Travel History Traveled to [place] past 21 day No Medical History Neurological: NONE EENT: NONE Cardiovascular: PVD, DVT Respiratory: pneumonia Gastrointestinal: Crohn's disease Hepatic: NONE Renal: nephrolithiasis, CKD Musculoskeletal: VASCULAR OCCLUSION RIGHT LEG RIGHT PATELLA FRACTURE WITH orif NON HEALING WOUNDS R. TOE AMPUTATIONS Psychiatric: NONE Endocrine: diabetes Blood Disorders: anemia, coagulopathy, DVT (RUE and RLE), antiphosphlipid syndrome Cancer(s): NONE VISITOR SERVICES SPECIALIST/Reproductive: NONE Surgical History Surgical History: colon resection, knee replacement (left), LEFT HIP ORIF status post right leg bypass status post right patellar ORIF status post right TMA status post lithotripsy and stent placements Family History Relations & Conditions If Any: FATHER Antiphospholipid syndrome FH: diabetes mellitus MOTHER FH: Crohn's disease Psychosocial History Where Do You Live? Home Who Do You Live With? spouse Services at Home: None Primary Language: Latvian Smoking Status: Never Smoked Functional Ability ADLs Independent: dressing, eating, toileting, bathing. Ambulation: walker IADLs Needs Assist: shopping, housework, finances, food prep, telephone, transportation, medication admin. Review of Systems Review of Systems Constitutional: Reports: malaise, weakness. Denies: chills, fever. EENTM: Denies: no symptoms. Cardiovascular: Denies: no symptoms. Respiratory: Denies: no symptoms. GI: Reports: see HPI. Genitourinary: Denies: no symptoms. Musculoskeletal: Reports: joint pain, muscle pain. Skin: Reports: lesions. Neurological/Psychological: Denies: no symptoms. Hematologic/Endocrine: Reports: bruising. Immunologic/Allergic: Denies: no symptoms. All Other Systems: Reviewed and Negative Exam & Diagnostic Data Vital Signs and I&O Vital Signs Date Time Temp Pulse Resp B/P Pulse O2 O2 Flow FiO2 Ox Delivery Rate 09/06 822 97.4 74 16 125/48 98 Room Air 09/06 0012 98.0 94 20 160/52 97 09/06 0000 Nasal 2.0L Cannula 09/05 1599 Nasal 2.0L Cannula 09/05 1559 98.2 92 18 152/64 99 Intake & Output 09/06 0400 09/05 1600 09/05 0400 09/04 040 Intake Total 665 1454 446 6923 640 Output Total 1000 0 Balance 665 449 992 4654 640 Intake, IV 15 550 400 400 400 Intake, Oral 650 590 480 770 240 Number 1 5 5 3 2 1 Bowel Movements Output, 1000 Dialysate Output, Urine 0 Patient 140 lb 145 lb Weight Physical Exam General Appearance: no apparent distress, alert, comfortable Head: atraumatic, normal appearance Eyes: Bilateral: normal appearance. Ears, Nose, Throat: normal pharynx, normal ENT inspection Neck: normal inspection, supple, full range of motion Respiratory: normal breath sounds, chest non-tender Cardiovascular: regular rate/rhythm Gastrointestinal: normal bowel sounds, soft, non-tender, no organomegaly Rectal: deferred Back: normal inspection Extremities: pedal edema Neurologic/Psych: no motor/sensory deficits, awake, alert, oriented x 3 Skin: pallor Results Pertinent Lab Results: Laboratory Tests 09/06 09/05 09/05 0639 1120 UNK Chemistry Sodium (137 - 145 mmol/L) 135 L Potassium (3.5 - 5.1 mmol/L) 4.3 Chloride (98 - 107 mmol/L) 103 Carbon Dioxide (22 - 30 mmol/L) 22 Anion Gap (5 - 16) 10 BUN (9 - 20 mg/dL) 7 L 23 H Creatinine (0.7 - 1.2 mg/dL) 3.0 H Estimated GFR (>60 ml/min) 21 L BUN/Creatinine Ratio (7 - 25 %) 7.7 Coagulation PT (9.4 - 12.5 SEC) 19.5 H 26.6 H INR (0.90 - 1.17) 1.87 H 2.56 H Hematology CBC w Diff NO MAN DIFF REQ WBC (4.8 - 10.8 /CUMM) 7.0 RBC (4.70 - 6.10 /CUMM) 3.16 L Hgb (14.0 - 18.0 G/DL) 8.9 L Hct (42 - 52 %) 29.0 L MCV (80.0 - 94.0 FL) 91.9 MCH (27.0 - 31.0 PG) 28.3 RDW (11.5 - 14.5 %) 22.0 H Plt Count (130 - 400 /CUMM) 265 MPV (7.4 - 10.4 FL) 8.4 Gran % (42.2 - 75.2 %) 86.4 H Lymphocytes % (20.5 - 51.1 %) 7.7 L Monocytes % (1.7 - 9.3 %) 5.7 Eosinophils % (0 - 5 %) 0.1 Basophils % (0.0 - 2.0 %) 0.1 Absolute Granulocytes (1.4 - 6.5 /CUMM) 6.1 Absolute Lymphocytes (1.2 - 3.4 /CUMM) 0.5 L Absolute Monocytes (0.10 - 0.60 /CUMM) 0.4 Absolute Eosinophils (0.0 - 0.7 /CUMM) 0 Absolute Basophils (0.0 - 0.2 /CUMM) 0 PUBS MCHC (33.0 - 37.0 G/DL) 30.8 L Toxicology Vancomycin Trough (10.0 - 20.0 ug/mL) 21.2 H 08 0710 Chemistry Sodium (137 - 145 mmol/L) 135 L Potassium (3.5 - 5.1 mmol/L) 4.3 Chloride (98 - 107 mmol/L) 104 Carbon Dioxide (22 - 30 mmol/L) 24 Anion Gap (5 - 16) 7 BUN (9 - 20 mg/dL) 14 Creatinine (0.7 - 1.2 mg/dL) 2.4 H Estimated GFR (>60 ml/min) 27 L BUN/Creatinine Ratio (7 - 25 %) 5.8 L Coagulation PT (9.4 - 12.5 SEC) 29.2 H INR (0.90 - 1.17) 2.81 H Hematology CBC w Diff NO MAN DIFF REQ WBC (4.8 - 10.8 /CUMM) 7.2 RBC (4.70 - 6.10 /CUMM) 3.10 L Hgb (14.0 - 18.0 G/DL) 8.9 L Hct (42 - 52 %) 28.5 L MCV (80.0 - 94.0 FL) 91.9 MCH (27.0 - 31.0 PG) 28.9 RDW (11.5 - 14.5 %) 22.4 H Plt Count (130 - 400 /CUMM) 263 MPV (7.4 - 10.4 FL) 8.4 Gran % (42.2 - 75.2 %) 83.8 H Lymphocytes % (20.5 - 51.1 %) 8.9 L Monocytes % (1.7 - 9.3 %) 6.9 Eosinophils % (0 - 5 %) 0.1 Basophils % (0.0 - 2.0 %) 0.3 Absolute Granulocytes (1.4 - 6.5 /CUMM) 6.0 Absolute Lymphocytes (1.2 - 3.4 /CUMM) 0.6 L Absolute Monocytes (0.10 - 0.60 /CUMM) 0.5 Absolute Eosinophils (0.0 - 0.7 /CUMM) 0 Absolute Basophils (0.0 - 0.2 /CUMM) 0 PUBS MCHC (33.0 - 37.0 G/DL) 31.4 L Imaging/Other Studies: COMPARISON: CT scan of the abdomen and pelvis dated 08/28/2016, 07/24/2016 and 01/24/2016 TECHNIQUE: Multidetector volumetric imaging was performed from the superior aspect of the liver through the pubic symphysis. Sagittal and coronal reformatted images were obtained on the technologist workstation. DLP: 265.60 mGy-cm. FINDINGS: LUNG BASES: There is again seen a small left-sided pleural effusion. Bibasilar patchy opacities are seen in the lung bases, right greater than left, increased on the right side compared to the previous study, either representing progressive atelectasis or subtle pneumonia. Severe atherosclerotic calcifications of the left anterior descending coronary artery and of the right coronary artery are seen. There are increased soft tissue density seen posterior to the nipples bilaterally, incompletely imaged, suggestive of gynecomastia, similar to the prior exam. LIVER, GALLBLADDER, AND BILIARY TREE: The liver is normal in size, shape, and attenuation. No focal hepatic lesion on noncontrast imaging. No biliary ductal dilatation is present. The gallbladder is markedly dilated with a few dependent radiopaque gallstones seen. No gallbladder wall thickening or obvious pericholecystic inflammatory changes. PANCREAS: Diffusely atrophic. No definite mass or peripancreatic stranding/collection. SPLEEN, ADRENAL GLANDS: Unremarkable on noncontrast imaging. KIDNEYS AND URETERS: The kidneys are normal in size, shape, and attenuation. In the mid left kidney, a partially exophytic and contour deforming 3.8 x 4.7 cm diameter low-attenuation masses seen with mean attenuation values of 14 Hounsfield units, most consistent with a cyst. There are some thin focal calcifications seen along the posterior and superior margin of the mass. No hydronephrosis, hydroureter, or calculi seen. No perinephric stranding. BLADDER: Unremarkable. GASTROINTESTINAL TRACT: The small bowel is unremarkable. Redundant colon is seen without focal mass appreciated. The appendix is not visualized. ABDOMINAL WALL: There are midline clips seen extending along the left rectus sheath area No significant hernia formation is seen. LYMPH NODES, VASCULAR: Moderate atherosclerotic calcifications of the aorta are seen. No adenopathy is seen. No free fluid is noted. PELVIC VISCERA: Unremarkable. OSSEOUS STRUCTURES: Shortness status post total left hip arthroplasty with prominent beam hardening artifact obscuring detail in the lower pelvis. Osteopenia is noted. Mild spurring is seen in the lower thoracic spine and in the lower lumbar spine. IMPRESSION: 1. Markedly hydropic gallbladder with cholelithiasis. Similar findings were seen on the previous study. Recent HIDA scan from 08/30/2016 had shown a patent cystic duct, arguing against acute cholecystitis. 2. No biliary dilatation. 3. Small left-sided pleural effusion and associated left basilar atelectasis. 4. Increasing patchy opacity in the right lung base, perhaps related to progressive atelectasis or pneumonia. 5. Mildly complicated left renal cyst with partial cyst wall calcification. Assessment/Plan Assessment/Recommendations: Assessment: Mr. Marvin is 75-year-old male with multiple medical problems currently admitted for urosepsis who has continued to have diarrhea throughout his hospitalization which is consistent with his chronic diarrhea which I have previously attributed to him having a subtotal colectomy. Throughout the years he has undergone several diagnostic tests to evaluate for active IBD and he had a colonoscopy/ileoscopy, EGD and small bowel pill cam that didn't show any active disease and as his surgery was many years ago I am not certain if he ever even had crohns disease. Furthermore, he had several CAT scans over the past several months which do not show any evidence of bowel inflammation to suggest that his diarrhea is from active inflammatory bowel disease. His diarrhea throughout the years has been controlled with antimotility agent such as Imodium and Lomotil and considering he does not have any evidence of an active infection I see no reason for those medications not to be started now to control his diarrhea. Also as he has no objective evidence of a Crohn's flare I do not feel he needs high-dose steroids nor does he need to be maintained on chronic prednisone as I feel this is likely doing more harm than good with his leg ulcers and other medical problems. Recommendations: 1. If high-dose steroids are being given for an IBD flare would discontinue them and would also recommend tapering him off of his low-dose prednisone over the course of several weeks considering he has been on them for so long. 3. Check stool for fecal calprotectin. 2. Would start 1-2 tablets of Lomotil to be given before meals. 3. Would also start cholestyramine 4 g packets by mouth twice a day. Please recontact GI should his diarrhea persist after the above interventions have been undertaken. Problem List: 1. Diarrhea 2. Crohns disease Consult Acknowledgment - Thank you for your consult request.
--- NOTE | 2016-09-06 12:32 | PN- Infect Dx ---
Subjective Subjective: Afebrile on steroids. He continues to have significant amount of diarrhea. He denies any abdominal pain and is eating better. He has no complaints of cough, shortness of breath or chest pain. His lower extremity pain is unchanged. Objective Last 24 Hrs of Vital Signs/I&O Vital Signs Date Time Temp Pulse Resp B/P Pulse O2 O2 Flow FiO2 Ox Delivery Rate 09/06 0823 97.4 74 16 125/48 98 Room Air 09/06 0012 98.0 94 20 160/52 97 09/06 0000 Nasal 2.0L Cannula 09/05 1600 Nasal 2.0L Cannula 09/05 1559 98.2 92 18 152/64 99 Intake & Output 09/06 1600 09/06 0800 09/06 0000 Intake Total 665 Output Total Balance 665 Intake, IV 15 Intake, Oral 650 Number 1 5 Bowel Movements Physical Exam Other Physical Findings: He appears comfortable, awake and alert, in no acute distress Chest tunneled catheter in the right upper chest with no inflammation at the site Lungs crackles at the right base Heart regular rhythm with no murmur Abdomen is soft, nontender with positive bowel sounds Extremities dressings intact over his ulcers Results Last 24 Hours of Lab Results: Laboratory Tests 09/06 0639 Coagulation PT (9.4 - 12.5 SEC) 19.5 H INR (0.90 - 1.17) 1.87 H Last 24 Hours of [place] Results: Blood cultures 2 September 02 remain negative Assessment/Plan Impression: Overall improved with temperatures and white blood cell count remaining normal now Day 4 of empiric treatment with Vancomycin and Ceftazidime for possible pneumonia, with an increased right lower lobe density seen on the recent CT scan. GI evaluation appreciated, with recommendations noted, specifically to taper off steroids given the low suspicion/evidence for Crohn's disease. Suggestion: 1. Follow GI recommendations 2. Re-dose with Vancomycin and Ceftazidime after dialysis tomorrow, after which would discontinue and follow off antibiotics Urvashi Menjivar MD will be covering me until September 16
--- NOTE | 2016-09-06 13:52 | PN- Nephrology ---
Assessment/Plan Assessment: 1. ESRD. 2. Fever (recurrent, now afebrile on steroids and antibiotics)/hypotension/ diarrhea- probable pneumonia - all cultures negative except for urinary yeast; C. difficile negative 3. Diarrhea - persistent 4. Peripheral vascular disease with necrotic skin lesions lower extremities Suggestion: 1. Management of diarrhea per GI - starting loperamide and colestyramine today 2. Next hemodialysis for tomorrow 3. Antibiotic therapy per ID Subjective Subjective: Alert and fully interactive today. Still having multiple bowel movements per shift. Loperamide and cholestyramine started today. He remains afebrile on steroids and antibiotics. Objective Vital Signs and I&Os Vital Signs Date Time Temp Pulse Resp B/P Pulse O2 O2 Flow FiO2 Ox Delivery Rate 09/06 822 97.4 74 16 125/48 98 Room Air 09/06 0012 98.0 94 20 160/52 97 09/06 0000 Nasal 2.0L Cannula 09/05 1600 Nasal 2.0L Cannula 09/05 1559 98.2 92 18 152/64 99 Intake & Output 09/06 1600 09/06 0400 09/05 1600 09/05 0400 09/04 1600 09/04 0400 Intake Total 665 9486 472 8920 640 Output Total 1000 0 Balance 665 870 268 9569 640 Intake, IV 15 550 400 400 400 Intake, Oral 650 590 480 770 240 Number 1 5 5 3 2 1 Bowel Movements Output, 1000 Dialysate Output, Urine 0 Patient 140 lb 145 lb Weight Physical Exam: General: Well-developed white male in NAD Skin: No rash or jaundice; mottled, necrotic, tender areas noted on right lateral leg and medial aspect of left thigh, posterior aspect of the left calf and dorsum of the left foot HEENT: Conjunctivae pale, sclerae anicteric, mucous membranes moist Neck: Without masses or thyromegaly, no supraclavicular or cervical adenopathy; there is a right IJ tunneled dialysis catheter in place Chest: Clear anterolaterally Heart: Regular rate and rhythm without S3 or rub Abdomen: Soft and nontender without palpable masses or organomegaly Extremities: Lower extremity dressing intact; the right upper arm AVF is without pulse, thrill or bruit; there is a right TMA Neuro: Awake, communicative, no asterixis or myoclonus Current Medications: Current Medications Sig/Kailash Start time Last Medication Dose Route Stop Time Status Admin Acetaminophen 650 MG Q6P PRN 09/02 1115 AC 09/06 PO 0809 Ceftazidime 1,000 MG Q24H 09/04 1999 AC 09/05 IV 2005 Cholestyramine Resin 1 PAC BID 09/06 1306 AC PO Diphenoxylate HCl/ 2.5 MG BID 09/06 1306 AC Atropine PO Epoetin Ludwig 6,000 UNIT TUES THURS SAT PRN 08/29 1330 AC IV Erythromycin 1 CHAITANYA 4 TIMES/DAY 08/31 0745 AC 09/04 OPH 2144 Heparin Sodium 5,000 UNIT Q8 08/28 2200 AC 09/06 (Porcine) SC 0535 Hydrocortisone 50 MG BID 09/05 1000 AC 09/06 Sodium Succinate IV 1103 Insulin Aspart 0 TIDAC/HS 09/06 0804 AC 09/06 SC 1252 Insulin Aspart 0 TIDAC/HS 09/06 0800 DC SC Insulin Aspart 4 UNITS ONCE ONE 09/05 2130 DC 09/05 SC 09/05 2131 2145 Insulin Aspart 0 TIDAC 09/04 0800 DC 09/05 SC 1729 Oxycodone/ 2 TAB Q6P PRN 08/30 0800 DC 09/03 Acetaminophen PO 0449 Prednisone 5 MG DAILY 08/29 1000 AC 09/06 PO 1103 Vancomycin HCl 250 MG ONCE ONE 09/05 1300 DC 09/05 Sodium Chloride 100 ML IV 09/05 1359 1330 Vancomycin HCl See Dose TuThSa PRN 09/05 1215 AC Insts (1) IV Warfarin Sodium 2.5 MG COUMADIN 1700 ONE 09/06 1700 UNVr PO 09/06 1701 Dose Instructions: (1)Vancomycin HCl: dose based on Vanco random level prior to dialysis on dialysis days Results Pertinent Lab Results: Laboratory Tests 09/06 09/05 09/05 0639 1120 UNK Chemistry Sodium (137 - 145 mmol/L) 135 L Potassium (3.5 - 5.1 mmol/L) 4.3 Chloride (98 - 107 mmol/L) 103 Carbon Dioxide (22 - 30 mmol/L) 22 Anion Gap (5 - 16) 10 BUN (9 - 20 mg/dL) 7 L 23 H Creatinine (0.7 - 1.2 mg/dL) 3.0 H Estimated GFR (>60 ml/min) 21 L BUN/Creatinine Ratio (7 - 25 %) 7.7 Coagulation PT (9.4 - 12.5 SEC) 19.5 H 26.6 H INR (0.90 - 1.17) 1.87 H 2.56 H Hematology CBC w Diff NO MAN DIFF REQ WBC (4.8 - 10.8 /CUMM) 7.0 RBC (4.70 - 6.10 /CUMM) 3.16 L Hgb (14.0 - 18.0 G/DL) 8.9 L Hct (42 - 52 %) 29.0 L MCV (80.0 - 94.0 FL) 91.9 MCH (27.0 - 31.0 PG) 28.3 RDW (11.5 - 14.5 %) 22.0 H Plt Count (130 - 400 /CUMM) 265 MPV (7.4 - 10.4 FL) 8.4 Gran % (42.2 - 75.2 %) 86.4 H Lymphocytes % (20.5 - 51.1 %) 7.7 L Monocytes % (1.7 - 9.3 %) 5.7 Eosinophils % (0 - 5 %) 0.1 Basophils % (0.0 - 2.0 %) 0.1 Absolute Granulocytes (1.4 - 6.5 /CUMM) 6.1 Absolute Lymphocytes (1.2 - 3.4 /CUMM) 0.5 L Absolute Monocytes (0.10 - 0.60 /CUMM) 0.4 Absolute Eosinophils (0.0 - 0.7 /CUMM) 0 Absolute Basophils (0.0 - 0.2 /CUMM) 0 PUBS MCHC (33.0 - 37.0 G/DL) 30.8 L Toxicology Vancomycin Trough (10.0 - 20.0 ug/mL) 21.2 H /08 0710 Chemistry Sodium (137 - 145 mmol/L) 135 L Potassium (3.5 - 5.1 mmol/L) 4.3 Chloride (98 - 107 mmol/L) 104 Carbon Dioxide (22 - 30 mmol/L) 24 Anion Gap (5 - 16) 7 BUN (9 - 20 mg/dL) 14 Creatinine (0.7 - 1.2 mg/dL) 2.4 H Estimated GFR (>60 ml/min) 27 L BUN/Creatinine Ratio (7 - 25 %) 5.8 L Coagulation PT (9.4 - 12.5 SEC) 29.2 H INR (0.90 - 1.17) 2.81 H Hematology CBC w Diff NO MAN DIFF REQ WBC (4.8 - 10.8 /CUMM) 7.2 RBC (4.70 - 6.10 /CUMM) 3.10 L Hgb (14.0 - 18.0 G/DL) 8.9 L Hct (42 - 52 %) 28.5 L MCV (80.0 - 94.0 FL) 91.9 MCH (27.0 - 31.0 PG) 28.9 RDW (11.5 - 14.5 %) 22.4 H Plt Count (130 - 400 /CUMM) 263 MPV (7.4 - 10.4 FL) 8.4 Gran % (42.2 - 75.2 %) 83.8 H Lymphocytes % (20.5 - 51.1 %) 8.9 L Monocytes % (1.7 - 9.3 %) 6.9 Eosinophils % (0 - 5 %) 0.1 Basophils % (0.0 - 2.0 %) 0.3 Absolute Granulocytes (1.4 - 6.5 /CUMM) 6.0 Absolute Lymphocytes (1.2 - 3.4 /CUMM) 0.6 L Absolute Monocytes (0.10 - 0.60 /CUMM) 0.5 Absolute Eosinophils (0.0 - 0.7 /CUMM) 0 Absolute Basophils (0.0 - 0.2 /CUMM) 0 PUBS MCHC (33.0 - 37.0 G/DL) 31.4 L
[2016-09-06 16:21] VITALS: BP 109/49
--- NOTE | 2016-09-06 20:23 | Cons- Endocrinology ---
General Information and HPI Consulting Request Date of Consult: 09/06/16 Requested By: medical team Reason for Consult: management of DM Source of Information: patient, family, old records Exam Limitations: no limitations History of Present Illness: Mr. Marvin is a 76-year-old gentleman with past medical history of DVT on Coumadin therapy, hypertension, diabetes, CKD stage V currently on hemodialysis, peripheral vascular disease, left lower extremity necrotizing nonhealing ulcers, history of cellulitis with Pseudomonas and Crohn's disease status post bowel resection and on chronic prednisone therapy, was admitted for sepsison 08/28/2016. He has been on stress dose of steroid and glucose level has been in the 200s and 300s. I was asked to see him for management of DM. Currently he is on Novolog coverage before meals and Novolog coverage at bedtime. His po intake has been okay. Allergies/Medications Allergies: Coded Allergies: Sulfa (Sulfonamide Antibiotics) (Mild, HIVES 06/15/16) Home Med List: Aspirin (Ecotrin*) 81 MG TABLET.DR 1 TAB PO DAILY hEART hEALTH Atorvastatin Calcium 40 MG TABLET 1 TAB PO DAILY HIGH LIPIDS B Complex & C No.20/Folic Acid (Nephrocaps Softgel) 1 MG CAPSULE 1 CAP PO DAILY SUPPLEMENT Calcitriol (Rocaltrol) 0.25 MCG CAPSULE 1 CAP PO DAILY KIDNEYS (Reported) Calcium Carbonate/Vitamin D3 (Os-Vishal 500+D3 Caplet) 500 MG-600 TABLET 1 TAB PO TID SUPPLEMENT (Reported) Carvedilol 25 MG TABLET 1 TAB PO BID DIRECTED (Reported) Cyanocobalamin (Vitamin B-12) 1,000 MCG TABLET 1 TAB PO DAILY SUPPLEMENT ( Reported) Ferrous Sulfate 325 MG (65 MG IRON) TABLET 1 TAB PO TID SUPPLEMENT (Reported) Guaifenesin (Mucinex) 600 MG TAB.ER.12H 1 TAB PO BID cONGESTION Insulin Aspart (Novolog) 100 UNIT/ML VIAL 0 UNITS SC SEE ADMIN CRITERIA BEFORE MEALS Blood Insulin Sugar Units <80 0 80-99 0 100-150 4 151-200 5 201-250 6 251-300 7 301-350 8 351-400 9 >400 Call MD AT BEDTIME Blood Insulin Sugar Units <80 0 81-100 0 101-200 0 201-250 0 251-300 2 301-350 3 351-400 4 >400 Call Doctor, 5 units Insulin Detemir (Levemir) 100 UNIT/ML VIAL 5 UNITS SC DAILY diabetes Nephro-Vitamins (Nephro-Arthur Tablet) 0.8 MG TABLET 1 TAB PO DAILY kidney Omeprazole Magnesium (Prilosec Otc) 20 MG TABLET.DR 2 TAB PO DAILY gerd Oxycodone HCl/Acetaminophen (Percocet 5-325 MG Tablet) 5 MG-325 MG TABLET 2 TAB PO Q8P PRN PAIN SCALE 4-6 (MODERATE) Prednisone 5 MG TABLET 1 TAB PO DAILY Adrenals Sevelamer Carbonate (Renvela) 800 MG TABLET 1 TAB PO TIDWM KIDNEYS (Reported) RESTART WHEN PHOS LEVEL >3.5 Sodium Chloride (Saline Nasal [place]) 0.65 % SPRAY 1 SPRAY NASB 4 TIMES/DAY PRN dRY NOSE Sodium Hypochlorite (Dakin's) 0.5 % SOLUTION 1 CHAITANYA TOP BID skin Warfarin Sodium (Coumadin) 2.5 MG TABLET 1 TAB PO EOD apla (Reported) Review of Systems Review of Systems Constitutional: Reports: see HPI. Cardiovascular: Denies: chest pain. Respiratory: Denies: short of breath. GI: Denies: abdominal pain. Musculoskeletal: Reports: muscle pain (on his LE). Hematologic/Endocrine: Denies: polyuria, polydipsia. Past History Travel History Traveled to [place] past 21 day No Medical History Neurological: NONE EENT: NONE Cardiovascular: PVD, DVT Respiratory: pneumonia Gastrointestinal: Crohn's disease Hepatic: NONE Renal: nephrolithiasis, CKD Musculoskeletal: VASCULAR OCCLUSION RIGHT LEG RIGHT PATELLA FRACTURE WITH orif NON HEALING WOUNDS R. 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 Home Who Do You Live With? spouse Services at Home: None Primary Language: Central [place] Smoking Status: Never Smoked Functional Ability ADLs Independent: dressing, eating, toileting, bathing. Ambulation: walker IADLs Needs Assist: shopping, housework, finances, food prep, telephone, transportation, medication admin. Exam & Diagnostic Data Last 24 Hrs of Vital Signs/I&O Vital Signs Date Time Temp Pulse Resp B/P Pulse O2 O2 Flow FiO2 Ox Delivery Rate 09/06 1621 97.6 74 17 109/49 100 Nasal 2.0L Cannula 09/06 08 97.4 74 16 125/48 98 Room Air 09/06 799 98 Nasal 2.0L Cannula 09/06 0012 98.0 94 20 160/52 97 09/06 0000 Nasal 2.0L Cannula Intake & Output 09/06 1600 09/06 0809/06 0000 Intake Total 400 665 Output Total Balance 400 665 Intake, IV 15 Intake, Oral 400 650 Number 4 1 5 Bowel Movements Physical Exam General Appearance: no apparent distress Respiratory: lungs clear Cardiovascular: irregularly irregular Gastrointestinal: soft, non-tender Extremities: multiple lesions bilaterally Labs/Avtar Results: Laboratory Tests 09/06 0639 Coagulation PT (9.4 - 12.5 SEC) 19.5 H INR (0.90 - 1.17) 1.87 H Assessment/Plan Assessment/Plan Mr. Marvin is a 76-year-old gentleman with past medical history of DVT on Coumadin therapy, hypertension, diabetes, CKD stage V currently on hemodialysis, peripheral vascular disease, left lower extremity necrotizing nonhealing ulcers, history of cellulitis with Pseudomonas and Crohn's disease status post bowel resection and on chronic prednisone therapy, was admitted for sepsison 08/28/2016. He has been on stress dose of steroid and glucose level has been in the 200s and 300s. 1. decrease Hydrocortisone to 25 mg iv bid; 2. start Levemir 5 units daily first dose today; 3. adjust Novolog coverage before meals and adjust Novolog at bedtime---detail see the inpatient DM orders; 4 monitor FSGs. will follow Inpatient Diabetes Orders Before Each Meal: Bolus Insulin: Novolog < 80 mg/dl: no coverage 80-100 mg/dl: 3 units 101-120 mg/dl: 3 units 121-150 mg/dl: 3 units 151-200 mg/dl: 4 units 201-250 mg/dl: 5 units 251-300 mg/dl: 6 units 301-350 mg/dl: 7 units 351-400 mg/dl: 8 units > 400 mg/dl: 9 units Bedtime: < 80 mg/dl: Novolog 80-100 mg/dl: no coverage 101-120 mg/dl: no coverage 121-150 mg/dl: no coverage 151-200 mg/dl: no coverage 201-250 mg/dl: no coverage 251-300 mg/dl: 2 units 301-350 mg/dl: 3 units 351-400 mg/dl: 4 units > 400 mg/dl: 5 units Consult Acknowledgment - Thank you for your consult request.
[2016-09-06 23:44] VITALS: BP 118/60
[2016-09-07 07:53] VITALS: BP 150/60
--- NOTE | 2016-09-07 08:54 | PN- Diabetes ---
Assessment/Plan Assessment: Mr. Marvin is a 76-year-old gentleman with past medical history of DVT on Coumadin therapy, hypertension, diabetes, CKD stage V currently on hemodialysis, peripheral vascular disease, left lower extremity necrotizing nonhealing ulcers, history of cellulitis with Pseudomonas and Crohn's disease status post bowel resection and on chronic prednisone therapy, was admitted for sepsison 08/28/2016. He has been on stress dose of steroid and glucose levels were in the 200s and 300s. Hydrocortisone was decreased to 25 mg iv bid on 09/06/2016. Levemir 5 units daily was added. He is on Novolog coverage before meals and Novolog coverage at bedtime. His FSGs were 234, 233 and 163. Plan: 1. continue the current hydrocortisone 25mg iv bid for now; 2. continue Levemir 5 units daily; 3. continue the current Novolog coverage before meals and Novolog coverage at bedtime; 4. monitor FSGs. will follow. Subjective Subjective: He feels well this morning. Objective Last 24 Hrs of Vital Signs/I&O Vital Signs Date Time Temp Pulse Resp B/P Pulse O2 O2 Flow FiO2 Ox Delivery Rate 09/07 0753 97.4 58 20 150/60 97 09/07 0000 Nasal 2.0L Cannula 09/06 2344 97.9 60 18 118/60 98 Nasal Cannula 09/06 1621 97.6 74 17 109/49 100 Nasal 2.0L Cannula 09/06 1600 98 Nasal 2.0L Cannula Intake & Output 09/07 1600 09/07 0800 09/07 0000 Intake Total 60 260 Output Total 200 Balance -140 260 Intake, IV 10 20 Intake, Oral 50 240 Number 1 1 Bowel Movements Output, Urine 200 Patient 141 lb Weight Findings Pertinent Lab/Avtar Results: Laboratory Tests 09/06 1346 Coagulation PT Cancelled INR Cancelled
--- NOTE | 2016-09-07 09:26 | PN- Housestaff ---
FELICITA HEATH,MINAL 09/07/16 0926: Subjective Follow-up For: Steroid-induced adrenal insufficiency Septicemia of unknown origin Right lower lobe pneumonia Complaints: Pain in the both legs Subjective: Patient was seen and examined at the bedside. He was complaining of pain in both legs. Denies any nausea, vomiting, pain abdomen. Review of Systems Constitutional: Reports: weakness. Denies: chills, diaphoresis, fever. EENTM: Denies: no symptoms. Cardiovascular: Denies: chest pain, edema, orthopena, palpitations, peripheral edema. Respiratory: Denies: cough, hemoptysis, orthopnea, short of breath, sputum production, stridor. Gastrointestinal: Denies: abdominal pain, bloating, constipation, diarrhea, distention, bowel incontinence, melena, nausea, bloody stool. Genitourinary: Denies: discharge, dysuria, frequency, hematuria, hesitation, nocturia, pain. Musculoskeletal: Denies: back pain, gout, joint pain, joint swelling. Skin: Reports: erythema. Neurological/Psychological: Reports: dementia. Denies: anxiety, confusion, depressed. Objective Last 24 Hrs of Vital Signs/I&O Vital Signs Date Time Temp Pulse Resp B/P Pulse O2 O2 Flow FiO2 Ox Delivery Rate 09/07 1615 98.5 82 20 90/52 99 Nasal 2.0L Cannula 09/07 1600 100 Nasal 2.0L Cannula 09/07 0800 Nasal 2.0L Cannula 09/07 0753 97.4 58 20 150/60 97 09/07 0000 Nasal 2.0L Cannula 09/06 2344 97.9 60 18 118/60 98 Nasal Cannula Intake & Output 09/07 1600 09/07 0800 09/07 0000 Intake Total 720 60 260 Output Total 200 200 Balance 520 -140 260 Intake, IV 10 20 Intake, Oral 720 50 240 Number 3 1 1 Bowel Movements Output, Urine 200 200 Patient 63.957 kg Weight Physical Exam General Appearance: Alert, Oriented X3, Cooperative, No Acute Distress Skin: bilateral lower leg, multiple ulcers, dressing is done HEENT: Atraumatic, PERRLA, EOMI Neck: Supple, No JVD Cardiovascular: Normal S1, Normal S2 Lungs: Clear to Auscultation Abdomen: Soft, No Tenderness Neurological: Normal Speech Extremities: No Clubbing, No Cyanosis, No Edema Vascular: Normal Pulses Assessment/Plan Assessment: Mr. Marvin is a 76-year-old gentleman with past medical history of DVT on Coumadin therapy, hypertension, diabetes, CKD stage V currently on hemodialysis, peripheral vascular disease, left lower extremity necrotizing nonhealing ulcers, history of cellulitis with Pseudomonas. Crohn's disease status post bowel resection and on chronic prednisone therapy, femoral-popliteal bypass surgery, and several glottic edema as well as acute respiratory failure which required an ICU admission in May 2016 who presented to the emergency department from a rehabilitation facility this afternoon afternoon due to decreased mentation, lethargy and hypotension. Patient was in his usual state of health until the early hours 08/28/2016. During afternoon rounds at short-term rehabilitation the patient was found to be pale lethargic and stated that he did not feel well. Communication form states that he had one episode of emesis, approximately 100 cc. Blood pressure taken at this time was 60/40. Repeat blood pressure after PO fluids showed 70/50. Due to hypotension patient was sent into the ER after 911 was called. 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 Vital signs-temperature 97.4, pulse 74, respiratory 16, blood pressure 125/48, SPO2 98% on nasal cannula Vancomycin trough level is - 21.2 Plan - * Patient is intermittently having fluctuating BP and altered level of consiouness. * We will continue the patient Tylenol for the pain. * We will continue steroid injection hydrocortisone 25 mgs IV BID * We will continue IV ceftazidime 1 gram IV every 24 hours and vancomycin IV after each dialysis. Vancomycin should be dosed after vancomycin trough level. We will stop antibiotic on 09/07/16. * continue erythromycin ointment for eyes, to be given 4 times a day as the patient is complaining of itchy eyes and there was thick secretions coming out. * Discussed with Dr Simeon, if blood pressure goes down to 100/80 than can give boluses of 200cc. * According to Dr Guerra, he will watch for patients clinical course and if it improved then he will follow-up with the patient within a month to reconsider him for AV fistula. Meanwhile dialysis can be done with Tunnel catheter. * He was on alternate day coumadin and he is having Hx of APLAS with recurrent thrombosis we started him on Warferin on 09/04/16. Today we are not able to dose the warfarin as a dialysis team did the dialysis very late.I will sign out to night team to dose warferin after geting the reports of PT/INR. We will recheck PT/INR daily * Patient is going for hemodialysis on every Friday, and Friday * Vitals every shift * Continue to meausure Bl sugar every 6 hrly and adjust Novalog according to sliding scale. * We'll follow endocrinology recommendation * According to Gi he was well evaluated in past, and never had any evidence of Crohns disease. They advised to restart 1-2 tablets of Lomotil to be given before meals and cholestyramine 4 g packets by mouth twice a day. * we will also follow stool for calprotectin * Code status - DNR/DNI * DVT prophyllaxis - ALPS Problem List: 1. Diarrhea 2. Pneumonia 3. Peripheral vascular disease 4. Antiphospholipid antibody syndrome 5. Diabetes mellitus Pain Ratin Pain Location: both lower legs Pain Goal: Remain pain free Pain Plan: mild Tomorrow's Labs & Rationales: cbc,bep, pt/inr DVT/Prophylaxis: mechanical, pharmacological EDGARD JEFFERSON MD 09/07/16 1638: Attending MD Review Statement Attending Statement Attending MD Statement: examined this patient, discuss w/resident/PA/MOGUL OPERATOR, agreed w/resident/PA/MOGUL OPERATOR, reviewed EMR data (avail) Attending Assessment/Plan: 75M extensive PMH including ESRD on HD, chronic necrotic bilateral leg ulcers, history of DVT, Crohn's s/p multiple bowel resections admitted for hypotension, diarrhea, fever. Treated initially with Vancoymcin and Ceftazidime, C.diff negative, initial concern for cholecystitis ruled out by negative HIDA. New onset fever 101 on 09/02 with hypotension 78/46, though this is common for him as a dialysis patient. Diarrhea has improved. Necrotic leg lesions do not appear overtly infected. No tenderneess or erythema at dialysis catheter site. Patient is more awake and alert today. He complains of discomfort of the necrotic lesions on his legs. He denies fever, cough, dyspnea, chest pain, or abdominal pain. Afebrile overnight. WBC has normalized. Cultures negative. Plan - Follow blood, urine, sputum cultures - Continue Vancomycin and Ceftazidime - Continue HD (/) - Continue steroid taper - Wound care evaluation of necrotic leg ulcers - Follow ID and nephrology recommendations - Continue home medications - DVT PPx - PT evaluation. Will likely require placement early next week,
--- NOTE | 2016-09-07 13:44 | PN- Infect Dx ---
Subjective Subjective: No fever. No productive cough. Denies abdominal pain. Review of Systems Comments: 10 points reviewed as noted, otherwise negative. Objective Last 24 Hrs of Vital Signs/I&O Vital Signs Date Time Temp Pulse Resp B/P Pulse O2 O2 Flow FiO2 Ox Delivery Rate 09/07 08 Nasal 2.0L Cannula 09/07 0753 97.4 58 20 150/60 97 09/07 0000 Nasal 2.0L Cannula 09/06 2344 97.9 60 18 118/60 98 Nasal Cannula 09/06 1621 97.6 74 17 109/49 100 Nasal 2.0L Cannula 09/06 1600 98 Nasal 2.0L Cannula Intake & Output 09/07 1600 09/07 0800 09/07 0000 Intake Total 60 260 Output Total 200 Balance -140 260 Intake, IV 10 20 Intake, Oral 50 240 Number 1 1 Bowel Movements Output, Urine 200 Patient 141 lb Weight Physical Exam Other Physical Findings: He appears comfortable, awake and alert, in no acute distress Chest tunneled catheter in the right upper chest with no inflammation at the site Lungs crackles at the right base Heart S1 s2 present, no murmur Abdomen is soft, nontender with positive bowel sounds Extremities dressings intact over his ulcers; s/p R TMA; L LE tender necrotic ulcers Results Last 24 Hours of Lab Results: Laboratory Tests 09/06 1346 Coagulation PT Cancelled INR Cancelled Last 24 Hours of Avtar Results: EC #: [id number] DALI: 08/28/16 STATUS: COMP RECD: 08/28/16 [facility] [address]: STEVEN HEATH,ANITA SOURCE: STOOL ENTR: 08/28/[address] [facility] [address]: OANH HEATH,WAYNE [facility] ORDERED: STOOL CULTURE, C.DIFFICILE EIA COMMENT: Has pt had antimicrobial/antineoplastic rx in past 4-6wks? Y Has pt had abd pain, fever, or constipation? Y Procedure Result > STOOL CULTURE Final 08/31/16 Mixed boris: No Enteric Pathogens Isolated. No Salmonella, Shigella, or Campylobacter Isolated. Please order Yersinia or Vibrio separately if suspected. > C. DIFFICILE TOXIN A & B EIA Final 08/29/16-1252 NEGATIVE FOR CLOSTRIDIUM DIFFICILE TOXINS A & B BY EIA > SHIGA TOXIN 1 AKA EHEC Final 08/29/16113 NEGATIVE; NOT DETECTED. > SHIGA TOXIN 2 AKA EHEC Final 08/29/16-1131 NEGATIVE; NOT DETECTED. Recent Imaging Studies: SERVICE DATE: 09/02/16- EXAM TYPE: RAD - XRY-PORTABLE CHEST XRAY EXAMINATION: XR CHEST CLINICAL INFORMATION: Cough with fever. COMPARISON: Chest x-ray of 08/28/2016 and multiple priors dated back to 06/28/2016. TECHNIQUE: Portable AP view of the chest was obtained. FINDINGS: A right-sided double-lumen central venous catheter is unchanged in configuration with the tips projecting over the lower SVC and cavoatrial junction. The lungs are hypoexpanded. Linear densities in the left lung base may reflect scarring or atelectasis. No focal consolidation, changes of congestion or pleural effusions are seen. No pneumothorax. Degenerative changes at the bilateral acromioclavicular joints and glenohumeral joints. IMPRESSION: Low lung volumes. No radiographic evidence of pneumonia. Linear atelectasis versus scarring in the left lower lung field. DICTATED BY: RICHELLE HEATH,ANAL DATE/TIME DICTATED:09/02/161419 SMART GRID ENGINEER:JOSE D DATE/TIME TRANSCRIBED:09/02/161419 CONFIDENTIAL, DO NOT COPY WITHOUT APPROPRIATE AUTHORIZATION. 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 Suggestion: 1. Follow GI recommendations 2. Re-dose with Vancomycin and Ceftazidime after dialysis today, after which would discontinue and follow off antibiotics 3. Call if fever. Monitor CBC off abx.
[2016-09-07 16:15] VITALS: BP 90/52
--- NOTE | 2016-09-07 17:48 | PN- Nephrology ---
Assessment/Plan Assessment: 1. ESRD. Plans are for dialysis this afternoon 2. Fever - probable pneumonia - 3. Diarrhea - persistent. Now loperamide 4. Peripheral vascular disease with necrotic skin lesions lower extremities. Not consistent with calciphylaxis on biopsy Suggestion: 1. Hemodialysis today Subjective Subjective: Patient says he feels well this afternoon. He says his appetite is better. He offers no complaints. Objective Vital Signs and I&Os Vital Signs Date Time Temp Pulse Resp B/P Pulse O2 O2 Flow FiO2 Ox Delivery Rate 09/07 1615 98.5 82 20 90/52 99 Nasal 2.0L Cannula 09/07 0800 Nasal 2.0L Cannula 09/07 0753 97.4 58 20 150/60 97 09/07 0000 Nasal 2.0L Cannula 09/06 2344 97.9 60 18 118/60 98 Nasal Cannula Intake & Output 09/07 1600 09/07 0400 09/06 1600 09/06 0400 09/05 1600 09/05 0400 Intake Total 780 260 555 307 9040 880 Output Total 400 1000 Balance 380 260 400 665 140 880 Intake, IV 10 20 15 550 400 Intake, Oral 770 240 400 650 590 480 Number 4 1 5 5 5 3 Bowel Movements Output, 1000 Dialysate Output, Urine 400 Patient 141 lb 140 lb Weight Physical Exam: General: Well-developed white male in NAD Skin: No rash or jaundice; he has , necrotic, tender areas noted on right lateral leg and medial aspect of left thigh, posterior aspect of the left calf and dorsum of the left foot HEENT: Conjunctivae pale, sclerae anicteric, mucous membranes moist Neck: Without masses or thyromegaly, no supraclavicular or cervical adenopathy; there is a right IJ tunneled dialysis catheter in place Chest: Clear anterolaterally Heart: Regular rate and rhythm without S3 or rub Abdomen: Soft and nontender without palpable masses or organomegaly. No bruits noted Extremities: Lower extremity dressing intact; the right upper arm AVF is without pulse, thrill or bruit; there is a right TMA Neuro: Awake, communicative, Current Medications: Current Medications Sig/Kailash Start time Last Medication Dose Route Stop Time Status Admin Acetaminophen 650 MG Q6P PRN 09/02 1115 AC 09/06 PO 1728 Ceftazidime 1,000 MG Q24H 09/04 1999 AC 09/06 IV 02/11 2359 2009 Cholestyramine Resin 1 PAC BID 09/06 1306 AC 09/07 PO 0858 Diphenoxylate HCl/ 2.5 MG BID 09/06 1306 AC 09/07 Atropine PO 0858 Epoetin Ludwig 6,000 UNIT TUES THURS SAT PRN 08/29 1330 AC IV Erythromycin 1 CHAITANYA 4 TIMES/DAY 08/31 0745 AC 09/07 OPH 1331 Heparin Sodium 5,000 UNIT Q8 08/28 2200 AC 09/07 (Porcine) SC 1331 Hydrocortisone 25 MG DAILY 09/06 1743 AC 09/07 Sodium Succinate IV 09 Insulin Aspart 0 TIDAC/HS 09/06 0804 AC 09/07 SC 1330 Insulin Detemir 5 UNITS DAILY 09/06 1745 AC 09/07 SC 0901 Oxycodone/ 2 TAB Q6P PRN 09/06 2100 AC 09/07 Acetaminophen PO 0857 Prednisone 5 MG DAILY 08/29 1000 AC 09/07 PO 0858 Vancomycin HCl See Dose TuThSa PRN 09/05 1215 AC Insts (1) IV 09/07 2358 Dose Instructions: (1)Vancomycin HCl: dose based on Vanco random level prior to dialysis on dialysis days Results Pertinent Lab Results: Laboratory Tests 09/06 09/06 09/05 1346 0639 1120 Chemistry BUN (9 - 20 mg/dL) 7 L Coagulation PT (9.4 - 12.5 SEC) Cancelled 19.5 H INR (0.90 - 1.17) Cancelled 1.87 H 09/05 UNK Chemistry Sodium (137 - 145 mmol/L) 135 L Potassium (3.5 - 5.1 mmol/L) 4.3 Chloride (98 - 107 mmol/L) 103 Carbon Dioxide (22 - 30 mmol/L) 22 Anion Gap (5 - 16) 10 BUN (9 - 20 mg/dL) 23 H Creatinine (0.7 - 1.2 mg/dL) 3.0 H Estimated GFR (>60 ml/min) 21 L BUN/Creatinine Ratio (7 - 25 %) 7.7 Coagulation PT (9.4 - 12.5 SEC) 26.6 H INR (0.90 - 1.17) 2.56 H Hematology CBC w Diff NO MAN DIFF REQ WBC (4.8 - 10.8 /CUMM) 7.0 RBC (4.70 - 6.10 /CUMM) 3.16 L Hgb (14.0 - 18.0 G/DL) 8.9 L Hct (42 - 52 %) 29.0 L MCV (80.0 - 94.0 FL) 91.9 MCH (27.0 - 31.0 PG) 28.3 RDW (11.5 - 14.5 %) 22.0 H Plt Count (130 - 400 /CUMM) 265 MPV (7.4 - 10.4 FL) 8.4 Gran % (42.2 - 75.2 %) 86.4 H Lymphocytes % (20.5 - 51.1 %) 7.7 L Monocytes % (1.7 - 9.3 %) 5.7 Eosinophils % (0 - 5 %) 0.1 Basophils % (0.0 - 2.0 %) 0.1 Absolute Granulocytes (1.4 - 6.5 /CUMM) 6.1 Absolute Lymphocytes (1.2 - 3.4 /CUMM) 0.5 L Absolute Monocytes (0.10 - 0.60 /CUMM) 0.4 Absolute Eosinophils (0.0 - 0.7 /CUMM) 0 Absolute Basophils (0.0 - 0.2 /CUMM) 0 PUBS MCHC (33.0 - 37.0 G/DL) 30.8 L Toxicology Vancomycin Trough (10.0 - 20.0 ug/mL) 21.2 H
[2016-09-07 20:33] LABS: ABSOLUTE BASOPHIL COUNT 0 /CUMM (0.0-0.2); ABSOLUTE EOSINOPHIL COUNT 0 /CUMM (0.0-0.7); ABSOLUTE LYMPH COUNT 0.7 /CUMM (1.2-3.4); EOSINOPHIL % 0.1 % (0-5); HEMATOCRIT 30.7 % (42-52); RED BLOOD CELL CT 3.33 /CUMM (4.70-6.10)
[2016-09-07 20:38] LABS: ABSOLUTE GRANULOCYTE CT 11.9 /CUMM (1.4-6.5); ABSOLUTE MONOCYTE COUNT 0.6 /CUMM (0.10-0.60); BASOPHIL % 0 % (0.0-2.0); MEAN CORPUSCULAR HGB 28.5 PG (27.0-31.0); MEAN CORPUSCULAR VOLUME 92.2 FL (80.0-94.0); MEAN PLATELET VOLUME 7.7 FL (7.4-10.4); PLATELET COUNT 197 /CUMM (130-400)
[2016-09-07 20:40] LABS: WHITE BLOOD CELL COUNT 13.1 /CUMM (4.8-10.8)
[2016-09-07 20:48] LABS: GRANULOCYTE % 90.4 % (42.2-75.2)
[2016-09-08 00:33] VITALS: BP 124/60
--- NOTE | 2016-09-08 08:49 | PN- Diabetes ---
Assessment/Plan Assessment: Mr. Marvin is a 76-year-old gentleman with past medical history of DVT on Coumadin therapy, hypertension, diabetes, CKD stage V currently on hemodialysis, peripheral vascular disease, left lower extremity necrotizing nonhealing ulcers, history of cellulitis with Pseudomonas and Crohn's disease status post bowel resection and on chronic prednisone therapy, was admitted for sepsison 08/28/2016. He has been on stress dose of steroid and glucose levels were in the 200s and 300s. Hydrocortisone was decreased to 25 mg iv bid on 09/06/2016. Levemir 5 units daily was added. He is on Novolog coverage before meals and Novolog coverage at bedtime. His FSGs were 163, 218, 236, 121, 154 and 178. Plan: 1. further decrease Hydrocortisone to 12.5 mg iv twice a day today; 2. patient is on predniosne 5 mg daily as well. 3. his glucose level has been relatively stable. He will continue the current insulin orders--- Levemir 5 units daily, Novolog coverage before meals and Novolog coverage at bedtime. 4. monitor FSGs. will follow. Subjective Subjective: He feels better. Objective Last 24 Hrs of Vital Signs/I&O Vital Signs Date Time Temp Pulse Resp B/P Pulse O2 O2 Flow FiO2 Ox Delivery Rate 09/08 0033 98.2 92 18 124/60 97 Nasal Cannula 09/08 0000 98 Nasal 2.0L Cannula 09/07 1615 98.5 82 20 90/52 99 Nasal 2.0L Cannula 09/07 1600 100 Nasal 2.0L Cannula Intake & Output 09/08 1600 09/08 0800 09/08 0000 Intake Total 100 410 Output Total 0 Balance 100 410 Intake, IV 100 10 Intake, Oral 400 Number 6 Bowel Movements Output, Urine 0 Patient 123 lb 139 lb Weight Findings Pertinent Lab/Avtar Results: Laboratory Tests 09/07 Chemistry Sodium (137 - 145 mmol/L) 135 L Potassium (3.5 - 5.1 mmol/L) 3.9 Chloride (98 - 107 mmol/L) 103 Carbon Dioxide (22 - 30 mmol/L) 25 Anion Gap (5 - 16) 7 BUN (9 - 20 mg/dL) 38 H Creatinine (0.7 - 1.2 mg/dL) 3.4 H Estimated GFR (>60 ml/min) 18 L BUN/Creatinine Ratio (7 - 25 %) 11.2 Coagulation PT (9.4 - 12.5 SEC) 18.0 H INR (0.90 - 1.17) 1.72 H Hematology CBC w Diff NO MAN DIFF REQ WBC (4.8 - 10.8 /CUMM) 13.1 H RBC (4.70 - 6.10 /CUMM) 3.33 L Hgb (14.0 - 18.0 G/DL) 9.5 L Hct (42 - 52 %) 30.7 L MCV (80.0 - 94.0 FL) 92.2 MCH (27.0 - 31.0 PG) 28.5 RDW (11.5 - 14.5 %) 23.0 H Plt Count (130 - 400 /CUMM) 197 MPV (7.4 - 10.4 FL) 7.7 Gran % (42.2 - 75.2 %) 90.4 H Lymphocytes % (20.5 - 51.1 %) 5.1 L Monocytes % (1.7 - 9.3 %) 4.4 Eosinophils % (0 - 5 %) 0.1 Basophils % (0.0 - 2.0 %) 0 L Absolute Granulocytes (1.4 - 6.5 /CUMM) 11.9 H Absolute Lymphocytes (1.2 - 3.4 /CUMM) 0.7 L Absolute Monocytes (0.10 - 0.60 /CUMM) 0.6 Absolute Eosinophils (0.0 - 0.7 /CUMM) 0 Absolute Basophils (0.0 - 0.2 /CUMM) 0 PUBS MCHC (33.0 - 37.0 G/DL) 31.0 L Toxicology Vancomycin Trough (10.0 - 20.0 ug/mL) Cancelled 18.0
[2016-09-08 08:59] VITALS: BP 118/74
--- NOTE | 2016-09-08 10:26 | PN- Housestaff ---
ANGELITA GARCIA MD,SYDNEY 09/08/16 1025: Subjective Follow-up For: CKD stage V currently on hemodialysis Peripheral vascular disease Sepsis- Resolved Possible pneumonia (RLL).Right lower lobe Crohn's disease Panniculitis Complaints: no complaints Tele-Events Since Last Visit: None Subjective: Patient remained afebrile overnight Oxygen saturation of 96-97% on 2 L of nasal cannula Review of Systems Constitutional: Denies: chills, fever. EENTM: Denies: visual changes. Cardiovascular: Denies: chest pain. Respiratory: Denies: short of breath. Gastrointestinal: Denies: abdominal pain. Objective Last 24 Hrs of Vital Signs/I&O Vital Signs Date Time Temp Pulse Resp B/P Pulse O2 O2 Flow FiO2 Ox Delivery Rate 09/08 0859 98.0 90 20 118/74 96 Nasal 2.0L Cannula 09/08 0033 98.2 92 18 124/60 97 Nasal Cannula 09/08 0000 98 Nasal 2.0L Cannula 09/07 1615 98.5 82 20 90/52 99 Nasal 2.0L Cannula 09/07 1600 100 Nasal 2.0L Cannula Intake & Output 09/08 1600 09/08 0800 09/08 0000 Intake Total 100 410 Output Total 0 Balance 100 410 Intake, IV 100 10 Intake, Oral 400 Number 6 Bowel Movements Output, Urine 0 Patient 123 lb 139 lb Weight Physical Exam General Appearance: Alert, Cooperative, No Acute Distress Skin: Necrotic ulcers LLE Neck: Supple Cardiovascular: Regular Rate, Normal S1, Normal S2 Lungs: Occasional crackles at the right base Abdomen: Soft, No Tenderness Neurological: Normal Speech Extremities: Dressing over ulcers, Right upper arm AVF, Right TMA Current Medications: Current Medications Sig/Kailash Start time Last Medication Dose Route Stop Time Status Admin Acetaminophen 650 MG .STK-MED ONE 09/07 1938 DC PO 09/07 1940 Acetaminophen 650 MG Q6P PRN 09/02 1115 AC 09/07 PO 1930 Ceftazidime 1,000 MG Q24H 09/04 1999 DC 09/07 IV 09/07 2359 2323 Cholestyramine Resin 1 PAC BID 09/06 1306 AC 09/08 PO 1009 Diphenoxylate HCl/ 2.5 MG BID 09/06 1306 AC 09/08 Atropine PO 1009 Epoetin Ludwig 6,000 UNIT TUES THURS SAT PRN 08/29 1330 AC IV Erythromycin 1 CHAITANYA 4 TIMES/DAY 08/31 0745 AC 09/07 OPH 2324 Heparin Sodium 5,000 UNIT Q8 08/28 2200 DC 09/07 (Porcine) SC 1331 Hydrocortisone 12.5 MG BID 09/08 1000 AC 09/08 Sodium Succinate IV 1009 Hydrocortisone 25 MG BID 09/07 2200 DC 09/07 Sodium Succinate IV 2323 Hydrocortisone 25 MG DAILY 09/06 1743 DC 09/07 Sodium Succinate IV 0901 Insulin Aspart 0 TIDAC/HS 09/06 0804 AC 09/08 SC 0823 Insulin Detemir 5 UNITS DAILY 09/06 1745 AC 09/08 SC 1009 Oxycodone/ 2 TAB Q6P PRN 09/06 2100 AC 09/08 Acetaminophen PO 0635 Prednisone 5 MG DAILY 08/29 1000 AC 09/08 PO 1009 Vancomycin HCl 500 MG ONCE ONE 09/07 2315 DC 09/08 Sodium Chloride 250 ML IV 09/08 0014 0005 Vancomycin HCl See Dose TuThSa PRN 09/05 1215 DC Insts (1) IV 09/07 2359 Warfarin Sodium 3 MG .STK-MED ONE 09/07 2243 DC PO 09/07 2244 Warfarin Sodium 3 MG ONCE ONE 09/07 2199 DC 09/07 PO 09/07 2201 2247 Dose Instructions: (1)Vancomycin HCl: dose based on Vanco random level prior to dialysis on dialysis days Last 24 Hrs of Lab/Avtar Results Last 24 Hrs of Labs/Mics: Laboratory Tests 09/07/16 2000: Vancomycin Trough Cancelled 09/07/16 2000: Anion Gap 7, Estimated GFR 18 L, BUN/Creatinine Ratio 11.2, PT 18.0 H, INR 1.72 H, CBC w Diff NO MAN DIFF REQ, RBC 3.33 L, MCV 92.2, MCH 28.5, RDW 23.0 H, MPV 7.7, Gran % 90.4 H, Lymphocytes % 5.1 L, Monocytes % 4.4, Eosinophils % 0.1, Basophils % 0 L, Absolute Granulocytes 11.9 H, Absolute Lymphocytes 0.7 L, Absolute Monocytes 0.6, Absolute Eosinophils 0, Absolute Basophils 0, PUBS MCHC 31.0 L, Vancomycin Trough 18.0 Lines/Diet/Fluids Fluids/Infusions: none Assessment/Plan Assessment: 76-year-old gentleman with past medical history of DVT on Coumadin therapy, hypertension, diabetes, CKD stage V currently on hemodialysis,peripheral vascular disease, left lower extremity necrotizing nonhealing ulcers, history of cellulitis with Pseudomonas. Crohn's disease status post bowel resection and on chronic prednisone therapy, femoral-popliteal bypass surgery, and several glottic edema as well as acute respiratory failure which required an ICU admission in May 2016 who presented to the emergency department from a rehabilitation facility this afternoon afternoon due to decreased mentation, lethargy and hypotension. Patient was in his usual state of health until the early hours 08/28/2016. During afternoon rounds at short-term rehabilitation the patient was found to be pale lethargic and stated that he did not feel well. Communication form states that he had one episode of emesis, approximately 100 cc. Blood pressure taken at this time was 60/40. Repeat blood pressure after PO fluids showed 70/50. Due to hypotension patient was sent into the ER after 911 was called. 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 Sepsis (Resolved) Patient received empiric treatment with Vancomycin and Ceftazidime for possible pneumonia (RLL) Patient remained afebrile overnight, no tachycardia, no tachypnea, stable blood pressure 118-124 systolic and 60-74 diastolic, oxygen saturation of 96-97% on 2 L of nasal cannula As per ID recommendations follow patient off antibiotics Current white count pending Vancomycin trough level is - 21.2 on Sep 05 End-stage renal disease on hemodialysis Patient is going for hemodialysis on every Friday, and Friday Current labs pending As per nephrology, if blood pressure goes down to 100/80 than can give boluses of 200cc Peripheral vascular disease He was on alternate day coumadin and he is having Hx of APLAS with recurrent thrombosis. Curent INR pending H/o Chronic prednisone therapy patient is on predniosne 5 mg daily His FSGs were 163, 218, 236, 121, 154 and 178. As per endocrinology recommendations decrease Hydrocortisone to 12.5 mg iv twice a day today Continue the current insulin regimen ? IBD According to GI he was well evaluated in past, and never had any evidence of Crohns disease flare up. They advised to restart 1-2 tablets of Lomotil to be given before meals and cholestyramine 4 g packets by mouth twice a day. DVT prophyllaxis Coumadin Code status DNR/DNI Problem List: 1. CKD (chronic kidney disease) 2. Anemia 3. Crohn disease 4. Pneumonia Pain Ratin Pain Location: Legs Pain Goal: Pain 4 or less Pain Plan: Continue current Pain medications Tomorrow's Labs & Rationales: CBC BEP INR DVT/Prophylaxis: pharmacological EDGARD JEFFERSON MD 09/08/16 1230: Attending MD Review Statement Attending Statement Attending MD Statement: examined this patient, discuss w/resident/PA/CAR DUMPER, agreed w/resident/PA/CAR DUMPER, reviewed EMR data (avail) Attending Assessment/Plan: 75M extensive PMH including ESRD on HD, chronic necrotic bilateral leg ulcers, history of DVT, Crohn's s/p multiple bowel resections admitted for hypotension, diarrhea, fever. Treated initially with Vancoymcin and Ceftazidime, C.diff negative, initial concern for cholecystitis ruled out by negative HIDA. New onset fever 101 on 09/02 with hypotension 78/46, though this is common for him as a dialysis patient. Diarrhea has improved. Necrotic leg lesions do not appear overtly infected. No tenderneess or erythema at dialysis catheter site. Patient is more awake and alert today. He complains of discomfort of the necrotic lesions on his legs. He denies fever, cough, dyspnea, chest pain, or abdominal pain. Afebrile overnight. WBC has normalized. Cultures negative. Plan - Follow blood, urine, sputum cultures - Continue Vancomycin and Ceftazidime - Continue HD (/) - Continue steroid taper - Wound care evaluation of necrotic leg ulcers - Follow ID and nephrology recommendations - Continue home medications - DVT PPx - PT evaluation. Will likely require placement early next week,
--- NOTE | 2016-09-08 12:11 | PN- Infect Dx ---
Subjective Subjective: No productive cough. denies chills. C/o severe diarrhea this am. No abdominal pain. Review of Systems Comments: 10 points reviewed as noted, otherwise negative. Objective Last 24 Hrs of Vital Signs/I&O Vital Signs Date Time Temp Pulse Resp B/P Pulse O2 O2 Flow FiO2 Ox Delivery Rate 09/08 0859 98.0 90 20 118/74 96 Nasal 2.0L Cannula 09/08 0033 98.2 92 18 124/60 97 Nasal Cannula 09/08 0000 98 Nasal 2.0L Cannula 09/07 1615 98.5 82 20 90/52 99 Nasal 2.0L Cannula 09/07 1600 100 Nasal 2.0L Cannula Intake & Output 09/08 1600 09/08 0800 09/08 0000 Intake Total 100 410 Output Total 0 Balance 100 410 Intake, IV 100 10 Intake, Oral 400 Number 6 Bowel Movements Output, Urine 0 Patient 123 lb 139 lb Weight Physical Exam Other Physical Findings: He appears comfortable, awake and alert, in no acute distress HEENT: AT/NC, sclera anicteric, face flushed Chest tunneled catheter in the right upper chest with no inflammation at the site Lungs crackles at the right base Heart S1 s2 present, no murmur/r/g Abdomen is soft, nontender, bowel sounds present Extremities dressings intact over his ulcers; s/p R TMA; L LE tender necrotic ulcers Neuro: A&O x3, no CN deficit Results Last 24 Hours of Lab Results: Laboratory Tests 09/07 Chemistry Sodium (137 - 145 mmol/L) 135 L Potassium (3.5 - 5.1 mmol/L) 3.9 Chloride (98 - 107 mmol/L) 103 Carbon Dioxide (22 - 30 mmol/L) 25 Anion Gap (5 - 16) 7 BUN (9 - 20 mg/dL) 38 H Creatinine (0.7 - 1.2 mg/dL) 3.4 H Estimated GFR (>60 ml/min) 18 L BUN/Creatinine Ratio (7 - 25 %) 11.2 Coagulation PT (9.4 - 12.5 SEC) 18.0 H INR (0.90 - 1.17) 1.72 H Hematology CBC w Diff NO MAN DIFF REQ WBC (4.8 - 10.8 /CUMM) 13.1 H RBC (4.70 - 6.10 /CUMM) 3.33 L Hgb (14.0 - 18.0 G/DL) 9.5 L Hct (42 - 52 %) 30.7 L MCV (80.0 - 94.0 FL) 92.2 MCH (27.0 - 31.0 PG) 28.5 RDW (11.5 - 14.5 %) 23.0 H Plt Count (130 - 400 /CUMM) 197 MPV (7.4 - 10.4 FL) 7.7 Gran % (42.2 - 75.2 %) 90.4 H Lymphocytes % (20.5 - 51.1 %) 5.1 L Monocytes % (1.7 - 9.3 %) 4.4 Eosinophils % (0 - 5 %) 0.1 Basophils % (0.0 - 2.0 %) 0 L Absolute Granulocytes (1.4 - 6.5 /CUMM) 11.9 H Absolute Lymphocytes (1.2 - 3.4 /CUMM) 0.7 L Absolute Monocytes (0.10 - 0.60 /CUMM) 0.6 Absolute Eosinophils (0.0 - 0.7 /CUMM) 0 Absolute Basophils (0.0 - 0.2 /CUMM) 0 PUBS MCHC (33.0 - 37.0 G/DL) 31.0 L Toxicology Vancomycin Trough (10.0 - 20.0 ug/mL) Cancelled 18.0 Last 24 Hours of Avtar Results: SPEC #: [id number] DALI: 09/02/16-1210 STATUS: COMP RECD: 09/02/16-[address] [facility] [address]: FELICITA HEATH, [facility] SOURCE: BLOOD ENTR: 09/02/16-[address] [facility] [address]: LI HEATH,EDGARD SPDESC: 2ND/VENOUS JOHANNA HEATH, DEBBIE HUGO MD,WAYNE Posada ORDERED: BLOOD CULTURE Procedure Result > BLOOD CULTURE REPORT Final 09/08/16 NO GROWTH AFTER FIVE DAYS Recent Imaging Studies: CXR 09/02. Assessment/Plan Impression: Treatment with Vancomycin and Ceftazidime for possible pneumonia (RLL) x 7 d ( last dose 09/07). Developed leukocytosis today and worsening diarrhea. 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 Follow GI recommendations; repeat stool for C. difficile assay today. 2. Call if fever. 3. CBC and procalcitonin level in am.
[2016-09-08 16:31] VITALS: BP 132/58
[2016-09-09 01:07] VITALS: BP 128/60
--- NOTE | 2016-09-09 07:52 | PN- Housestaff ---
FELICITA HEATH,MINAL 09/09/16 0752: Subjective Follow-up For: Steroid-induced adrenal insufficiency Septicemia of unknown origin Right lower lobe pneumonia Complaints: pain in both lower limbs Subjective: Patient was seen and examined at the bedside. He was complaining of pain in both legs. Denies any nausea, vomiting, pain abdomen. Review of Systems Constitutional: Reports: weakness. Denies: no symptoms. EENTM: Denies: no symptoms. Cardiovascular: Denies: chest pain, edema, orthopena, palpitations. Respiratory: Denies: cough, hemoptysis, orthopnea, short of breath, sputum production. Gastrointestinal: Reports: diarrhea. Denies: abdominal pain, bloating, constipation, distention, bowel incontinence, melena, nausea, bloody stool. Genitourinary: Denies: dysuria, frequency, hematuria, hesitation, nocturia. Musculoskeletal: Reports: back pain, joint pain, muscle pain. Denies: gout, joint swelling, muscle stiffness. Neurological/Psychological: Reports: anxiety, confusion, depressed. Objective Last 24 Hrs of Vital Signs/I&O Vital Signs Date Time Temp Pulse Resp B/P Pulse O2 O2 Flow FiO2 Ox Delivery Rate 09/09 1530 97.5 96 20 122/70 94 Room Air 09/09 1206 Room Air 2.0L 09/09 0810 97.6 65 18 148/62 92 Room Air 09/09 0107 98.4 82 20 128/60 96 Intake & Output 09/09 1600 09/09 0800 09/09 0000 Intake Total 760 200 420 Output Total 300 0 Balance 760 -100 420 Intake, IV 20 Intake, Oral 760 200 400 Number 3 1 3 Bowel Movements Output, Urine 300 0 Patient 64.41 kg Weight Physical Exam General Appearance: Alert, Oriented X3, Cooperative, No Acute Distress Skin: bilateral lower leg, multiple ulcers HEENT: Atraumatic, PERRLA, EOMI Neck: Supple, No JVD, No thryomegaly Cardiovascular: Normal S1, Normal S2 Lungs: Clear to Auscultation, Normal Air Movement Abdomen: Soft, No Tenderness Neurological: Normal Speech Extremities: No Clubbing, No Cyanosis, bilateral lower leg ulcers Vascular: Normal Pulses, Pulses Symmetrical Assessment/Plan Assessment: 76-year-old gentleman with past medical history of DVT on Coumadin therapy, hypertension, diabetes, CKD stage V currently on hemodialysis,peripheral vascular disease, left lower extremity necrotizing nonhealing ulcers, history of cellulitis with Pseudomonas. Crohn's disease status post bowel resection and on chronic prednisone therapy, femoral-popliteal bypass surgery, and several glottic edema as well as acute respiratory failure which required an ICU admission in May 2016 who presented to the emergency department from a rehabilitation facility this afternoon afternoon due to decreased mentation, lethargy and hypotension. Patient was in his usual state of health until the early hours 08/28/2016. During afternoon rounds at short-term rehabilitation the patient was found to be pale lethargic and stated that he did not feel well. Communication form states that he had one episode of emesis, approximately 100 cc. Blood pressure taken at this time was 60/40. Repeat blood pressure after PO fluids showed 70/50. Due to hypotension patient was sent into the ER after 911 was called. 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 Plan - * Discharge today to rehabilitation center * We will continue the patient Tylenol for the pain. * We will decrease his stress dose of steroid injection hydrocortisone 12.5 mgs IV OD and then stop. Discussed with Dr. tang and according to her, we'll continue patient on tablet prednisone 5 milligrams by mouth OD. * We stopped antibiotic on 09/07/16. * continue erythromycin ointment for eyes, to be given 4 times a day as the patient is complaining of itchy eyes and there was thick secretions coming out. * Discussed with Dr Simeon, if blood pressure goes down to 100/80 than can give boluses of 200cc. * According to Dr Guerra, he will watch for patients clinical course and if it improved then he will follow-up with the patient within a month to reconsider him for AV fistula. Meanwhile dialysis can be done with Tunnel catheter. * We will continue patient on tab Warfarin 2.5 mgs daily, and advised to check the PT/INR weekly, and show to PCP * Patient is going for hemodialysis on every Friday, and Friday * Vitals every shift * Continue to meausure Bl sugar every 6 hrly and adjust Novalog according to sliding scale. * According to Gi he was well evaluated in past, and never had any evidence of Crohns disease. They advised to restart 1-2 tablets of Lomotil to be given before meals and cholestyramine 4 g packets by mouth twice a day. * we will also follow stool for calprotectin * Code status - DNR/DNI * DVT prophyllaxis - ALPS Problem List: 1. Dehydration 2. Diarrhea 3. Pneumonia 4. Peripheral vascular disease 5. Type 2 diabetes mellitus 6. Antiphospholipid antibody syndrome 7. End stage renal disease Pain Ratin Pain Location: Both lower limb Pain Goal: Remain pain free Pain Plan: Tylenol Tomorrow's Labs & Rationales: cbc, BEP, PT/INR DVT/Prophylaxis: mechanical, pharmacological EDGARD JEFFERSON MD 09/09/16 1150: Attending MD Review Statement Attending Statement Attending MD Statement: examined this patient, discuss w/resident/PA/VEGETABLE FARMER, agreed w/resident/PA/VEGETABLE FARMER, reviewed EMR data (avail) Attending Assessment/Plan: 75M extensive PMH including ESRD on HD, chronic necrotic bilateral leg ulcers, history of DVT, Crohn's s/p multiple bowel resections admitted for hypotension, diarrhea, fever. Treated initially with Vancoymcin and Ceftazidime, C.diff negative, initial concern for cholecystitis ruled out by negative HIDA. New onset fever 101 on 09/02 with hypotension 78/46, though this is common for him as a dialysis patient. Diarrhea has improved. Necrotic leg lesions do not appear overtly infected. No tenderneess or erythema at dialysis catheter site. Patient is more awake and alert today. He complains of discomfort of the necrotic lesions on his legs. He denies fever, cough, dyspnea, chest pain, or abdominal pain. Afebrile overnight. WBC has normalized. Cultures negative. Plan - Stable for discharge to [facility] facility - May discontinue antibiotics - Continue HD () - Will resume daily dose of Prednisone - Follow ID and nephrology recommendations - Continue home medications - Will require outpatient follow up with nephrology, wound care, endocrine, vascular
[2016-09-09 08:10] VITALS: BP 148/62
[2016-09-09] MEDS ORDERED: PREDNISONE5 M1 PO (08:27)
--- NOTE | 2016-09-09 10:38 | PN- Diabetes ---
Assessment/Plan Assessment: Mr. Marvin is a 76-year-old gentleman with past medical history of DVT on Coumadin therapy, hypertension, diabetes, CKD stage V currently on hemodialysis, peripheral vascular disease, left lower extremity necrotizing nonhealing ulcers, history of cellulitis with Pseudomonas and Crohn's disease status post bowel resection and on chronic prednisone therapy, was admitted for sepsison 08/28/2016. He has been on stress dose of steroid and glucose levels were in the 200s and 300s. Hydrocortisone was further decreased to 12.5 mg iv bid on 09/08/2016. Levemir 5 units daily was added. He is on Novolog coverage before meals and Novolog coverage at bedtime. His FSGs were 178, 217, 210, 165 and 178. Plan: 1. stop hydrocortisone today; 2. continue prednisone 5 mg daily; 3. continue the current insulin regimen; 4. monitor FSGs. will follow. Subjective Subjective: He continues feeling better. Objective Last 24 Hrs of Vital Signs/I&O Vital Signs Date Time Temp Pulse Resp B/P Pulse O2 O2 Flow FiO2 Ox Delivery Rate 09/09 0810 97.6 65 18 148/62 92 Room Air 09/09 0107 98.4 82 20 128/60 96 09/08 1631 71 18 132/58 97 Nasal 2.0L Cannula Intake & Output 09/09 1600 09/09 0800 09/09 0000 Intake Total 200 420 Output Total 300 0 Balance -100 420 Intake, IV 20 Intake, Oral 200 400 Number 1 3 Bowel Movements Output, Urine 300 0 Patient 142 lb Weight
--- NOTE | 2016-09-09 12:34 | PN- Nephrology ---
Assessment/Plan Assessment: 1. ESRD 2. Diarrhea - improved 3. Hypotension - not currently an issue 4. Fever - now afebrile on steroids; antibiotics now on hold, last antibiotic dose was after dialysis on Thursday 09/07 - all cultures negative except for urinary yeast; C. difficile negative 5. Peripheral vascular disease with necrotic skin lesions lower extremities Suggestion: 1. Management of diarrhea per GI 2. Next hemodialysis for tomorrow 3. Observe off antibiotics - per ID Subjective Subjective: Patient says he feels well today. He seems to be tolerating his chronic pain and remains afebrile with stable blood pressure. Diarrhea has improved on Lomotil and Questran. Objective Vital Signs and I&Os Vital Signs Date Time Temp Pulse Resp B/P Pulse O2 O2 Flow FiO2 Ox Delivery Rate 09/09 1206 Room Air 2.0L 09/09 0810 97.6 65 18 148/62 92 Room Air 09/09 0107 98.4 82 20 128/60 96 09/08 1631 71 18 132/58 97 Nasal 2.0L Cannula Intake & Output 09/09 1600 09/09 0400 09/08 1600 09/08 0400 09/07 1600 09/07 0400 Intake Total 200 420 580 410 780 260 Output Total 300 0 350 0 400 Balance -100 420 230 410 380 260 Intake, IV 20 100 10 10 20 Intake, Oral 200 400 480 400 770 240 Number 1 3 6 4 1 Bowel Movements Output, Stool 150 Output, Urine 300 0 200 0 400 Patient 142 lb 123 lb 139 lb 141 lb Weight Physical Exam: General: Well-developed white male in NAD Skin: No rash or jaundice; mottled, necrotic, tender areas noted on right lateral leg and medial aspect of left thigh, posterior aspect of the left calf and dorsum of the left foot HEENT: Conjunctivae pale, sclerae anicteric, mucous membranes moist Neck: Without masses or thyromegaly, no supraclavicular or cervical adenopathy; there is a right IJ tunneled dialysis catheter in place Chest: Clear anterolaterally Heart: Regular rate and rhythm without S3 or rub Abdomen: Soft and nontender without palpable masses or organomegaly Extremities: Lower extremity dressing intact; the right upper arm AVF is without pulse, thrill or bruit; there is a right TMA Neuro: Awake, communicative, no asterixis or myoclonus Current Medications: Current Medications Sig/Kailash Start time Last Medication Dose Route Stop Time Status Admin Acetaminophen 650 MG Q6P PRN 09/02 1115 AC 09/07 PO 1930 Cholestyramine Resin 1 PAC BID 09/06 1306 AC 09/09 PO 0945 Diphenoxylate HCl/ 2.5 MG BID 09/06 1306 AC 09/09 Atropine PO 0945 Epoetin Ludwig 6,000 UNIT TUES THURS SAT PRN 08/29 1330 AC IV Erythromycin 1 CHAITANYA 4 TIMES/DAY 08/31 0745 AC 09/09 OPH 0946 Hydrocortisone 12.5 MG BID 09/08 1000 DC 09/08 Sodium Succinate IV 2231 Insulin Aspart 0 TIDAC/HS 09/06 0804 AC 09/09 SC 0839 Insulin Detemir 5 UNITS DAILY 09/06 1745 AC 09/09 SC 0945 Oxycodone/ 2 TAB Q6P PRN 09/06 2100 AC 09/08 Acetaminophen PO 2243 Prednisone 5 MG DAILY 08/29 1000 AC 09/09 PO 0945 Warfarin Sodium 2.5 MG COUMADIN 1700 ONE 09/08 2051 DC 09/08 PO 09/08 Results Pertinent Lab Results: Laboratory Tests 09/08 09/07 09/07 0600 1999 1999 Chemistry Sodium (137 - 145 mmol/L) Cancelled 135 L Potassium (3.5 - 5.1 mmol/L) Cancelled 3.9 Chloride (98 - 107 mmol/L) Cancelled 103 Carbon Dioxide (22 - 30 mmol/L) Cancelled 25 Anion Gap (5 - 16) Cancelled 7 BUN (9 - 20 mg/dL) Cancelled 38 H Creatinine (0.7 - 1.2 mg/dL) Cancelled 3.4 H Estimated GFR (>60 ml/min) 18 L BUN/Creatinine Ratio (7 - 25 %) Cancelled 11.2 Coagulation PT (9.4 - 12.5 SEC) Cancelled 18.0 H INR (0.90 - 1.17) Cancelled 1.72 H Hematology CBC w Diff Cancelled NO MAN DIFF REQ WBC (4.8 - 10.8 /CUMM) Cancelled 13.1 H RBC (4.70 - 6.10 /CUMM) Cancelled 3.33 L Hgb (14.0 - 18.0 G/DL) Cancelled 9.5 L Hct (42 - 52 %) Cancelled 30.7 L MCV (80.0 - 94.0 FL) Cancelled 92.2 MCH (27.0 - 31.0 PG) Cancelled 28.5 RDW (11.5 - 14.5 %) Cancelled 23.0 H Plt Count (130 - 400 /CUMM) Cancelled 197 MPV (7.4 - 10.4 FL) Cancelled 7.7 Gran % (42.2 - 75.2 %) 90.4 H Lymphocytes % (20.5 - 51.1 %) 5.1 L Monocytes % (1.7 - 9.3 %) 4.4 Eosinophils % (0 - 5 %) 0.1 Basophils % (0.0 - 2.0 %) 0 L Absolute Granulocytes (1.4 - 6.5 /CUMM) 11.9 H Absolute Lymphocytes (1.2 - 3.4 /CUMM) 0.7 L Absolute Monocytes (0.10 - 0.60 /CUMM) 0.6 Absolute Eosinophils (0.0 - 0.7 /CUMM) 0 Absolute Basophils (0.0 - 0.2 /CUMM) 0 PUBS MCHC (33.0 - 37.0 G/DL) Cancelled 31.0 L Toxicology Vancomycin Trough (10.0 - 20.0 ug/mL) Cancelled 18.0 09/06 1346 Coagulation PT Cancelled INR Cancelled
--- NOTE | 2016-09-09 14:18 | PN- Infect Dx ---
Subjective Subjective: Diarhea subsided. No fever, productive cough or abdominal pain. Review of Systems Comments: 10 points reviewed as noted, otherwise negative. Objective Last 24 Hrs of Vital Signs/I&O Vital Signs Date Time Temp Pulse Resp B/P Pulse O2 O2 Flow FiO2 Ox Delivery Rate 09/09 1206 Room Air 2.0L 09/09 0810 97.6 65 18 148/62 92 Room Air 09/09 0107 98.4 82 20 128/60 96 09/08 1631 71 18 132/58 97 Nasal 2.0L Cannula Intake & Output 09/09 1600 09/09 0800 09/09 0000 Intake Total 200 420 Output Total 300 0 Balance -100 420 Intake, IV 20 Intake, Oral 200 400 Number 1 3 Bowel Movements Output, Urine 300 0 Patient 142 lb Weight Physical Exam Other Physical Findings: He appears comfortable, awake and alert, in no acute distress HEENT: AT/NC, sclera anicteric, face flushed Chest tunneled catheter in the right upper chest with no inflammation at the site Lungs crackles at the right base Heart S1 s2 present, no murmur/r/g Abdomen is soft, nontender, bowel sounds present Extremities dressings intact over his ulcers; s/p R TMA; L LE necrotic ulcers Neuro: A&O x3, no CN deficit Results Last 24 Hours of Lab Results: n/a Last 24 Hours of [place] Results: n/a Recent Imaging Studies: n/a Assessment/Plan Impression: Compleated treatment with Vancomycin and Ceftazidime for possible pneumonia (RLL ) x 7 d (last dose 09/07). Leukocytosis Chronic diarrhea. 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 Follow GI recommendations; repeat stool for C. difficile assay negative; check WBC in stool.. 2. Call if fever. 3. CBC recollected today.
[2016-09-09 15:30] VITALS: BP 122/70
--- NOTE | 2016-09-09 15:48 | Patient Discharge Instructions ---
Discharge Instructions General Discharge Information You were seen/treated for: fever and sepsis Special Instructions: please follow up with your pcp and protection analyst and vascular upon discharge. Please continue to mariusz your medications as prescribd. We are holding your BP medications. Please continue to follow up with your PCP and adjust BP medication as needed. we have not been given coumadin today due to alternate day dosage. please draw inr tomrrow and odse coumadin i.e 09/09/16 Diet Continue normal diet: No Activity Full Activity/No Limits: Yes Activity Self Limited: No Acute Coronary Syndrome Inclusion Criteria At DC or during hospital stay patient has or had the following: ACS DIAGNOSIS No Discharge Core Measures Meds if any: Prescribed or Continued at Discharge Meds if any: NOT Prescribed or Continued at Discharge Congestive Heart Failure Inclusion Criteria At DC or during hospital stay patient has or had the following: CHF DIAGNOSIS No Discharge Core Measures Meds if any: Prescribed or Continued at Discharge Meds if any: NOT Prescribed or Continued at Discharge Cerebrovascular accident Inclusion Criteria At DC or during hospital stay patient has or had the following: CVA/TIA Diagnosis No Discharge Core Measures Meds if any: Prescribed or Continued at Discharge Meds if any: NOT Prescribed or Continued at Discharge Venous thromboembolism Inclusion Criteria VTE Diagnosis No VTE Type NONE VTE Confirmed by (Test) NONE Discharge Core Measures - Per Current guidelines, there needs to be overlap - treatment for the first 5 days of Warfarin therapy. - If discharged on Warfarin prior to 5 days of - overlap therapy, the patient will need to be - assessed for post discharge needs including - *Post discharge parental anticoagulation - *Warfarin and/or parental anticoagulation education - *Follow up date to check INR post discharge At least 5 days overlap therapy as Inpatient No Meds if any: Prescribed or Continued at Discharge Note: Overlap Therapy is Warfarin and Anticoagulant Meds if any: NOT Prescribed or Continued at Discharge
== END 2016-09-09 20:03 | DRG 871 ==
LOC: ENRESERVTM → ENRESERVDT → ERH 14:15 → 1NO 20:14 → ERHI 20:14 → 1NO 23:34
PROVIDERS: Emergency Medicine; Internal Medicine; Internal Medicine Nephrology; Student in an Organized Health Care Education/Training Program; ADMIT Internal Medicine
PROC: 5A1D60Z (ICD-10-PCS; principal; 2016-08-29)
DX: A41.9 Sepsis, unspecified organism (principal); N18.6 End stage renal disease; L89.150 Pressure ulcer of sacral region, unstageable; J18.9 Pneumonia, unspecified organism; D68.61 Antiphospholipid syndrome; D68.9 Coagulation defect, unspecified; I12.0 Hypertensive chronic kidney disease with stage 5 chronic kidney disease or end stage renal disease; K50.90 Crohn's disease, unspecified, without complications; L97.229 Non-pressure chronic ulcer of left calf with unspecified severity; I95.9 Hypotension, unspecified; I73.9 Peripheral vascular disease, unspecified; E11.22 Type 2 diabetes mellitus with diabetic chronic kidney disease; Z99.2 Dependence on renal dialysis; L89.610 Pressure ulcer of right heel, unstageable; I48.91 Unspecified atrial fibrillation; J38.00 Paralysis of vocal cords and larynx, unspecified; R19.7 Diarrhea, unspecified; K80.50 Calculus of bile duct without cholangitis or cholecystitis without obstruction; E11.65 Type 2 diabetes mellitus with hyperglycemia; Z86.718 Personal history of other venous thrombosis and embolism; Z79.01 Long term (current) use of anticoagulants; Z87.891 Personal history of nicotine dependence; Z79.4 Long term (current) use of insulin; Z86.711 Personal history of pulmonary embolism
CPT/HCPCS: 1NP; 87493; 36415; 74176; 78226; 81001; 82436; 87040; 87045; 87070; 87086; 87088; 93005; 93010; 96361; 96374; 96375; 99291; A9537; J0131; J0713; J0885; J1644; J1720; J1815; J2405; J3370; J7040; J7042; J7060; J7512

== ENCOUNTER 2016-09-19 11:06 | Inpatient (IN) | payer OTHER, MEDICARE ==
[~2016-09-19] VITALS: Ht 182.9 cm; Wt 61.3 kg
--- NOTE | 2016-09-19 11:12 | ED AMS/SEIZURE/WEAK/DIZZY ---
History of Present Illness General Chief Complaint: Altered Mental Status Stated Complaint: HYPOGLYCEMIA Source: patient, family, old records, EMS Exam Limitations: clinical condition Allergies Coded Allergies: Sulfa (Sulfonamide Antibiotics) (Mild, HIVES 06/15/16) Reconcile Medications Aspirin (Ecotrin*) 81 MG TABLET.DR 1 TAB PO DAILY hEART hEALTH Atorvastatin Calcium 40 MG TABLET 1 TAB PO DAILY HIGH LIPIDS B Complex & C No.20/Folic Acid (Nephrocaps Softgel) 1 MG CAPSULE 1 CAP PO DAILY SUPPLEMENT Calcium Carbonate/Vitamin D3 (Os-Vishal 500+D3 Caplet) 500 MG-600 TABLET 1 TAB PO TID SUPPLEMENT (Reported) Cyanocobalamin (Vitamin B-12) (Vitamin B-12) 500 MCG TABLET 2 TAB PO DAILY ANEMIA (Reported) Ferrous Sulfate 325 MG (65 MG IRON) TABLET 1 TAB PO TID SUPPLEMENT (Reported) Guaifenesin (Mucinex) 600 MG TAB.ER.12H 1 TAB PO BID cONGESTION Insulin Aspart (Novolog) 100 UNIT/ML VIAL 0 UNITS SC SEE ADMIN CRITERIA BEFORE MEALS Blood Insulin Sugar Units <80 0 80-99 0 100-150 4 151-200 5 201-250 6 251-300 7 301-350 8 351-400 9 >400 Call MD AT BEDTIME Blood Insulin Sugar Units <80 0 81-100 0 101-200 0 201-250 0 251-300 2 301-350 3 351-400 4 >400 Call Doctor, 5 units Insulin Detemir (Levemir) 100 UNIT/ML VIAL 5 UNITS SC DAILY diabetes Nephro-Vitamins (Nephro-Arthur Tablet) 0.8 MG TABLET 1 TAB PO DAILY kidney Omeprazole 20 MG CAPSULE.DR 1 CAP PO DAILY GI (Reported) Oxycodone HCl/Acetaminophen (Percocet 5-325 MG Tablet) 5 MG-325 MG TABLET 2 TAB PO Q8P PRN PAIN SCALE 4-6 (MODERATE) Prednisone 5 MG TABLET 1 TAB PO DAILY Adrenals arenal insufficinecy Sevelamer Carbonate (Renvela) 800 MG TABLET 1 TAB PO TIDWM KIDNEYS (Reported) RESTART WHEN PHOS LEVEL >3.5 Sodium Chloride (Saline Nasal [place]) 0.65 % SPRAY 1 SPRAY NASB 4 TIMES/DAY PRN dRY NOSE Warfarin Sodium (Coumadin) 2.5 MG TABLET 1 TAB PO EOD apla (Reported) Triage Nurses Notes Reviewed? yes Onset: Abrupt Duration: day(s): (1), constant Timing: recent history Injury Environment: home Severity: moderate, severe Severity Numbers: 10 No Modifying Factors: none Associated Symptoms: denies HPI: 75-year-old male past medical history of DVT on Coumadin therapy, hypertension, diabetes, CKD stage V currently on hemodialysis,peripheral vascular disease, left lower extremity necrotizing nonhealing ulcers, history of cellulitis with Pseudomonas. Crohn's disease status post bowel resection and on chronic prednisone therapy, femoral-popliteal bypass surgery presents to the emergency room today after patient was found to have a blood sugar of 27 at the [place] where he resides currently. The patient's blood sugar was checked at 6 AM per the and was greater than 400 which he was given 9 units of insulin. According to the the patient was not evaluated again until 10 AM at which time his sugar was found to be 27 and he had an uneaten rectus tray in front of him. On arrival the patient is lethargic however arousable. He was medicated with glucagon and dextrose in the field. Patient's blood sugar 101 on arrival. According to the as far she is aware there is been no recent falls or head trauma. On arrival the patient has no facial droop, and shakes his head when questioned as to whether he has chest pain or abdominal pain or feels nauseous. Her no other modifying factors or associated symptoms. According to the he is had a similar episode in the past. He is due for dialysis today. (CECILIA SERRANO) Vital Signs & Intake/Output Vital Signs & Intake/Output Vital Signs Date Time Temp Pulse Resp B/P Pulse O2 O2 Flow FiO2 Ox Delivery Rate 09/19 1800 98.3 124 16 151/77 100 Room Air 09/19 1628 99 Room Air 09/19 1527 98.1 110 18 142/74 99 Nasal 2.0L Cannula 09/19 1229 98.0 74 16 139/79 100 Room Air 09/19 1200 99 Room Air 09/19 1120 75 22 123/71 95 Nasal 2.0L Cannula Past History Travel History Traveled to [place] past 21 day No Medical History Any Pertinent Medical History? see below for history Neurological: NONE EENT: NONE Cardiovascular: PVD, DVT Respiratory: pneumonia Gastrointestinal: Crohn's disease Hepatic: NONE Renal: nephrolithiasis, CKD Musculoskeletal: VASCULAR OCCLUSION RIGHT LEG RIGHT PATELLA FRACTURE WITH orif NON HEALING WOUNDS R. TOE AMPUTATIONS Psychiatric: NONE Endocrine: diabetes Blood Disorders: anemia, coagulopathy, DVT (RUE and RLE), antiphosphlipid syndrome Cancer(s): NONE SCHEDULE SUPERVISOR/Reproductive: NONE History of MRSA: No History of VRE: Yes History of CDIFF: No Surgical History Surgical History: colon resection, knee replacement (left), LEFT HIP ORIF status post right leg bypass status post right patellar ORIF status post right TMA status post lithotripsy and stent placements Psychosocial History Who do you live with Spouse Services at Home None What is your primary language Maltese Tobacco Use: Never used Family History Family History, If Any: FATHER Antiphospholipid syndrome FH: diabetes mellitus MOTHER FH: Crohn's disease Hx Contributory? No (CECILIA SERRANO) Review of Systems Review of Systems Constitutional: Reports: see HPI. All Other Systems: Reviewed and Negative Comments Review of systems: Via the patient's Constitutional, no chills no fever, no malaise no weight loss HEENT: no sore throat no congestion, no ear pain Cardiovascular: No chest pain , no palpitation , Skin, no jaundice no rashes, no change in skin Respiratory: No dyspnea no cough no sputum GI: No nausea no vomiting, no diarrhea, : No dysuria Muscle skeletal: No joint pain, no back pain, no neck pain, Neurologic: No numbness no confusion, no headache Psych: No stress Heme/endocrine: No bruising no bleeding Immunology: No lymphadenopathy (CECILIA SERRANO) Physical Exam Physical Exam General Appearance: well developed/nourished, alert, awake Comments: Elderly lethargic male presents in mild to moderate acute distress HEENT: Normal EENT exam; PERRL, EOMI, no nystagmus. HEAD is atraumatic. moist mucous membranes. Neck: Supple, no lymphadenopathy, normal range of motion Back: Nontender, no CVA tenderness. Full range of motion Cardiovascular: Regular rate and rhythms no murmurs rubs Respiratory: No respiratory distress. Patient speaking in full complete sentences. Breath sounds clear to auscultation bilaterally: NO W/R/R Abdomen: Soft, nontender nondistended, no appreciable organomegaly. Normal bowel sounds. No rebound/guarding, No appreciable enlargement of the abdominal aorta, No ascites. Extremity: No edema, full range of motion of extremities, normal and equal pulses bilaterally, 5 out of 5 strength noted to bilateral upper and lower extremities Neuro: Alert oriented x3, motor sensory normal, cranial nerves II through XII grossly intact. There were no obvious focal neurologic abnormalities. Skin: No appreciable rash on exposed skin, skin is warm and dry. Psych: Mood and affect is normal, memory and judgment is normal. Core Measures ACS in differential dx? Yes CVA/TIA Diagnosis: No Severe Sepsis Present: No Septic Shock Present: No (DANITA HANSEN,CECILIA) Progress Differential Diagnosis: arrythmia, anemia, benign positional vertigo, CVA/stroke , dehydration, drug intoxication, electrolyte imbalance, GI bleed, hypoglycemia, intracranial Hem., migraine SEALS, seizure disorder, subarachnoid Hem., vertebrobasilar insuff Diagnostic Imaging: Viewed by Me: Radiology Read, CT Scan. Discussed w/RAD: Radiology Read, CT Scan. Radiology Impression: PATIENT: BENJAMIN SMITH PRESENT AGE: 75 PATIENT ACCOUNT NO: [id number] : 41 LOCATION: [facility] ORDERING PHYSICIAN: CECILIA HANSEN SERVICE DATE: 09/19/16 EXAM TYPE: CAT - CT HEAD WO IV CONTRAST EXAMINATION: CT HEAD WITHOUT CONTRAST CLINICAL INFORMATION: Altered mental status COMPARISON: 07/23/2016 TECHNIQUE: Contiguous axial imaging was performed from the skull base to vertex without intravenous administration of contrast. DLP: 886.89 mGy-cm FINDINGS: There is no evidence of acute intracranial hemorrhage or territorial infarction. No abnormal mass effect or midline shift is seen. [place] to white matter differentiation is well preserved. No extra-axial fluid collections are identified. The ventricles are normal in size. There is moderate periventricular white matter hypoattenuation consistent with chronic small vessel ischemic disease. Moderate volume loss is noted. The osseous structures and soft tissues are normal. The mastoid air cells and visualized portions of the paranasal sinuses are well aerated. IMPRESSION: No acute intracranial pathology. Chronic small vessel ischemic disease and volume loss. DICTATED BY: DEDE GARCIA MD DATE/TIME DICTATED:09/19/161240 FIRST BREAKER FEEDER:JOSE D DATE/TIME TRANSCRIBED:09/19/161240 CONFIDENTIAL, DO NOT COPY WITHOUT APPROPRIATE AUTHORIZATION. <Electronically signed in Other Vendor System> SIGNED BY: DEDE GARCIA MD 09/19/16 1249, PATIENT: BENJAMIN SMITH PRESENT AGE: 75 PATIENT ACCOUNT NO: [id number] : 41 LOCATION: [facility] ORDERING PHYSICIAN: CECILIA HANSEN SERVICE DATE: 09/19/16 EXAM TYPE: RAD - XRY-PORTABLE CHEST XRAY EXAMINATION : XR PORTABLE CHEST CLINICAL INFORMATION: Altered mental status COMPARISON: CXR from 09/02/2016 TECHNIQUE: Portable AP view of the chest was obtained. FINDINGS: Lungs are symmetrically expanded and without evidence of acute consolidation, edema or pleural effusion. Linear opacity in the retrocardiac region of the left lower lobe is compatible with focal scar or atelectasis; this is similar in appearance compared to prior radiograph. Cardiac silhouette is normal in size. There is atherosclerotic calcification of the aortic arch. The tip of the dual- lumen catheter is at the junction of the superior vena cava and right atrium. There is osteoarthrosis with remodeling deformity of the suboptimally visualized right glenohumeral joint. Old, healed fracture of the right lateral fifth rib. IMPRESSION: No acute cardiopulmonary abnormality compared to 09/02/2016. DICTATED BY: ABDIFATAH JOHNS MD DATE/TIME DICTATED:09/19/161199 FIRST BREAKER FEEDER:JOSE D DATE/TIME TRANSCRIBED:09/19/161199 CONFIDENTIAL, DO NOT COPY WITHOUT APPROPRIATE AUTHORIZATION. <Electronically signed in Other Vendor System> SIGNED BY: ABDIFATAH JOHNS MD 09/19/16 1208 Initial ED EKG: NORMAL SINUS AT 80, NO ACUTE st SEGMENT CHANGES NORMAL AXIS Prior EKG: unchanged (08/29/16) Rhythm Strip: normal sinus rhythm (DANITA HANSEN,CECILIA) Plan of Care: Orders Procedure Date/time Status Consistent Carbohydrate 1 09/19 D Active TROPONIN LEVEL 09/19 1837 Active EKG 09/19 1837 Active Add-on Test (ER Only) 09/19 1830 Active Change service to 09/19 1742 Active PROTHROMBIN TIME 09/19 1649 Active Pathway - chart 09/19 1624 Active House Staff 09/19 1624 Active Patient Data 09/19 1624 Active Code Status 09/19 1624 Active Misc Message 09/19 1501 Active ED Holding Orders 09/19 1501 Active Vital Signs 09/19 1501 Active Code Status 09/19 1501 Complete Admit to inpatient 09/19 1421 Active Patient Data 09/19 1338 Active Intake & Output 09/19 1200 Active PARTIAL THROMBOPLASTIN TIME 09/19 1142 Complete PROTHROMBIN TIME 09/19 1142 Complete TROPONIN LEVEL 09/19 1132 Complete COMPREHENSIVE METABOLIC PANEL 09/19 1132 Complete CBC WITHOUT DIFFERENTIAL 09/19 1132 Complete EKG 09/19 1132 Active FingerStick- Glucose 09/19 1123 Complete VTE Mechanical Prophylaxis 09/19 UNK Complete FingerStick- Glucose 09/19 UNK Complete FingerStick- Glucose 09/19 UNK Active Current Medications Sig/Kailash Start time Last Medication Dose Stop Time Status Admin Aspirin Buffered 81 MG DAILY 09/20 1000 AC (Ecotrin) Cyanocobalamin 1,000 MCG DAILY 09/20 1000 AC (Vitamin B12) Insulin Detemir 5 UNITS DAILY 09/20 1000 AC (Levemir) Multivitamins 1 TAB DAILY 09/20 1000 CAN (Nephrocaps) Multivitamins 1 TAB DAILY 09/20 1000 AC (Nephrocaps) Prednisone 5 MG DAILY 09/20 1000 AC Omeprazole 20 MG DAILY AC 09/20 0700 AC (Prilosec) Heparin Sodium 5,000 UNIT Q8 09/19 2200 CAN (Porcine) Insulin Aspart 0 SEE ADMIN CRITERIA 09/19 1845 UNVr (NovoLOG) Ferrous Sulfate 325 MG TID 09/19 1834 AC (Feosol) Atorvastatin Calcium 40 MG DAILY 09/19 1833 AC (Lipitor) Insulin Aspart 0 TIDAC 09/19 1700 AC (NovoLOG) Dextrose 1 SYR ONE ONE 09/19 1345 CAN (Dextrose 25% Inj. 09/19 1700 Pediatric) Laboratory Tests 09/19/16 1142: Anion Gap 8, Estimated GFR 21 L, BUN/Creatinine Ratio 6.7 L, Glucose 93, Calcium 7.8 L, Total Bilirubin 0.5, AST 23, ALT 25, Alkaline Phosphatase 84, Troponin I 0.01, Total Protein 4.9 L, Albumin 2.0 L, Globulin 2.9, Albumin/ Globulin Ratio 0.7 L, PT 55.5 *H, INR 5.37 *H, APTT 54 H, CBC w Diff NO MAN DIFF REQ, RBC 3.87 L, MCV 90.4, MCH 28.7, RDW 20.5 H, MPV 8.4, Gran % 80.9 H, Lymphocytes % 7.1 L, Monocytes % 9.3, Eosinophils % 2.3, Basophils % 0.4, Absolute Granulocytes 8.3 H, Absolute Lymphocytes 0.7 L, Absolute Monocytes 1.0 H, Absolute Eosinophils 0.2, Absolute Basophils 0, PUBS MCHC 31.8 L Labs ordered old records reviewed, D5W ordered case discussed with Dr. Saravia agrees with plan CAT scan chest x-ray ordered Discussed with the patient all his lab results CAT scan and x-ray findings to date. Patient is more arousable however is not speaking at baseline there is no slurred speech or facial droop there no neurologic deficits at this time, given change in mental status and requiring altered mental I do not believe the patient could be safely discharged to outpatient dialysis today, Lenny is discussed with Dr. Paige who will admit call was placed to nephrology-whom Dr. Saravia spoke with regarding the patient (CECILIA SERRANO) Departure Departure Time of Disposition: 1333 Disposition: HOME OR SELF CARE Condition: Stable Clinical Impression Primary Impression: Altered mental status Secondary Impressions: CKD (chronic kidney disease), Hypoglycemia Referrals: OANH HEATH,WAYNE Posada (PCP/Family) Departure Forms: Customer Survey General Discharge Information Admission Note Spoke With: HARRY MORRIS M.D Documentation of Exam: Trend labs dialysis neuro checks premature discharge would BE medically harmful given change in mental status and decreased blood sugar after receiving glucagon dextrose in the field D5 fluids here. Premature discharge would BE medically harmful, given recent hospitalizations for acute respiratory failure hypotension. Observation Note Spoke With: HARRY MORRIS M.D Place Patient In: Non-ED OBS Care Area Rationale for Observation: My rational for observation is as follows T (CECILIA SERRANO) PA/RAYON TESTER Co-Sign Statement Statement: ED Attending supervision documentation- [X] I saw and evaluated the patient. I have also reviewed all the pertinent lab results and diagnostic results. I agree with the findings and the plan of care as documented in the PA's/RAYON TESTER's documentation. [] I have reviewed the ED Record and agree with the PA's/RAYON TESTER's documentation. [] Additions or exceptions (if any) to the PAs/RAYON TESTER's note and plan are summarized below: [] (MARIANN HEATH,CARLOS ENRIQUE Farrar)
[2016-09-19] MEDS ORDERED: OMEPRAZOLE20 M2 PO (11:27)
[2016-09-19 11:49] LABS: ABSOLUTE BASOPHIL COUNT 0 /CUMM (0.0-0.2); ABSOLUTE EOSINOPHIL COUNT 0.2 /CUMM (0.0-0.7); ABSOLUTE GRANULOCYTE CT 8.3 /CUMM (1.4-6.5); ABSOLUTE LYMPH COUNT 0.7 /CUMM (1.2-3.4); BASOPHIL % 0.4 % (0.0-2.0); EOSINOPHIL % 2.3 % (0-5); GRANULOCYTE % 80.9 % (42.2-75.2); MEAN CORPUSCULAR HGB 28.7 PG (27.0-31.0); MEAN CORPUSCULAR HGB CONC 31.8 G/DL (33.0-37.0); MEAN CORPUSCULAR VOLUME 90.4 FL (80.0-94.0); MEAN PLATELET VOLUME 8.4 FL (7.4-10.4); PLATELET COUNT 224 /CUMM (130-400); RBC DISTRIBUTION WIDTH 20.5 % (11.5-14.5); RED BLOOD CELL CT 3.87 /CUMM (4.70-6.10); WHITE BLOOD CELL COUNT 10.3 /CUMM (4.8-10.8)
--- NOTE | 2016-09-19 12:08 | RADIOLOGY REPORT ---
EXAMINATION: XR PORTABLE CHEST CLINICAL INFORMATION: Altered mental status COMPARISON: CXR from 09/02/2016 TECHNIQUE: Portable AP view of the chest was obtained. FINDINGS: Lungs are symmetrically expanded and without evidence of acute consolidation, edema or pleural effusion. Linear opacity in the retrocardiac region of the left lower lobe is compatible with focal scar or atelectasis; this is similar in appearance compared to prior radiograph. Cardiac silhouette is normal in size. There is atherosclerotic calcification of the aortic arch. The tip of the dual-lumen catheter is at the junction of the superior vena cava and right atrium. There is osteoarthrosis with remodeling deformity of the suboptimally visualized right glenohumeral joint. Old, healed fracture of the right lateral fifth rib. IMPRESSION: No acute cardiopulmonary abnormality compared to 09/02/2016.
--- NOTE | 2016-09-19 12:49 | CT SCAN REPORT ---
EXAMINATION: CT HEAD WITHOUT CONTRAST CLINICAL INFORMATION: Altered mental status COMPARISON: 07/23/2016 TECHNIQUE: Contiguous axial imaging was performed from the skull base to vertex without intravenous administration of contrast. DLP: 886.89 mGy-cm FINDINGS: There is no evidence of acute intracranial hemorrhage or territorial infarction. No abnormal mass effect or midline shift is seen. [place] to white matter differentiation is well preserved. No extra-axial fluid collections are identified. The ventricles are normal in size. There is moderate periventricular white matter hypoattenuation consistent with chronic small vessel ischemic disease. Moderate volume loss is noted. The osseous structures and soft tissues are normal. The mastoid air cells and visualized portions of the paranasal sinuses are well aerated. IMPRESSION: No acute intracranial pathology. Chronic small vessel ischemic disease and volume loss.
--- NOTE | 2016-09-19 15:10 | History & Physical ---
MEL [facility]ATH,[facility] 09/19/16 1509: General Information and HPI MD Statement: I have seen and personally examined BENJAMIN MARVIN and documented this H&P. The patient is a 75 year old M who presented with a patient stated chief complaint of hypoglycemia. Source of Information: patient, family, W10 Exam Limitations: no limitations History of Present Illness: This is a pleasent 75-year-old gentleman with past medical history of hypertension, diabetes, COPD stage V currently on hemodialysis, peripheral vascular disease, left lower extremity necrotizing nonhealing ulcers, history of cellulitis with Pseudomonas, DVT on Coumadin therapy, Crohn's disease status post bowel resection on chronic prednisone therapy, femur popliteal bypass surgery, severe epiglottic edema as well as acute respiratory failure which required ICU admission in May 2017, and a recent admission in august for hypotension and AMS, is BIBA from [facility] for evaluation of profound hypoglycemia with unresponsiveness. Patient's reports that Mr. Marvin was progressing well at rehabilitation since his last discharge until yesterday when she noticed that glucose fingerstick reading was around 40. Patient's spouse reports that today early in the morning his sugars were around 404 and the nursing staff at [facility] administered 9 units of insulin. It is however reported that the patient did not eat his breakfast and has had decreased oral intake/appetite for the past few days. Around 10 AM today in the morning patient had a glucose level reading of 27 and was found to be in an altered mental status and unresponsiveness. Patient received dextyrose treatment and it was decided that he needed to be brought to [place] ED for evaluation. While examining the patient at the ED, patient was alert oriented with intact mentation. Other than the hypoglycemic events and recent decrease in oral intake, he does not endorse any acute complaints. Of note, patient dialyzes every Friday and Friday and due to his hypoglycemic event today he was unable to make his appointment for dialysis. Allergies/Medications Allergies: Coded Allergies: Sulfa (Sulfonamide Antibiotics) (Mild, HIVES 06/15/16) Home Med list Aspirin (Ecotrin*) 81 MG TABLET.DR 1 TAB PO DAILY hEART hEALTH Atorvastatin Calcium 40 MG TABLET 1 TAB PO DAILY HIGH LIPIDS B Complex & C No.20/Folic Acid (Nephrocaps Softgel) 1 MG CAPSULE 1 CAP PO DAILY SUPPLEMENT Calcium Carbonate/Vitamin D3 (Os-Vishal 500+D3 Caplet) 500 MG-600 TABLET 1 TAB PO TID SUPPLEMENT (Reported) Cyanocobalamin (Vitamin B-12) (Vitamin B-12) 500 MCG TABLET 2 TAB PO DAILY ANEMIA (Reported) Ferrous Sulfate 325 MG (65 MG IRON) TABLET 1 TAB PO TID SUPPLEMENT (Reported) Guaifenesin (Mucinex) 600 MG TAB.ER.12H 1 TAB PO BID cONGESTION Insulin Aspart (Novolog) 100 UNIT/ML VIAL 0 UNITS SC SEE ADMIN CRITERIA BEFORE MEALS Blood Insulin Sugar Units <80 0 80-99 0 100-150 4 151-200 5 201-250 6 251-300 7 301-350 8 351-400 9 >400 Call MD AT BEDTIME Blood Insulin Sugar Units <80 0 81-100 0 101-200 0 201-250 0 251-300 2 301-350 3 351-400 4 >400 Call Doctor, 5 units Insulin Detemir (Levemir) 100 UNIT/ML VIAL 5 UNITS SC DAILY diabetes Nephro-Vitamins (Nephro-Arthur Tablet) 0.8 MG TABLET 1 TAB PO DAILY kidney Omeprazole 20 MG CAPSULE.DR 1 CAP PO DAILY GI (Reported) Oxycodone HCl/Acetaminophen (Percocet 5-325 MG Tablet) 5 MG-325 MG TABLET 2 TAB PO Q8P PRN PAIN SCALE 4-6 (MODERATE) Prednisone 5 MG TABLET 1 TAB PO DAILY Adrenals arenal insufficinecy Sevelamer Carbonate (Renvela) 800 MG TABLET 1 TAB PO TIDWM KIDNEYS (Reported) RESTART WHEN PHOS LEVEL >3.5 Sodium Chloride (Saline Nasal [place]) 0.65 % SPRAY 1 SPRAY NASB 4 TIMES/DAY PRN dRY NOSE Warfarin Sodium (Coumadin) 2.5 MG TABLET 1 TAB PO EOD apla (Reported) Past History Travel History Traveled to [place] past 21 day No Medical History Neurological: NONE EENT: NONE Cardiovascular: PVD, DVT Respiratory: pneumonia Gastrointestinal: Crohn's disease Hepatic: NONE Renal: nephrolithiasis, CKD Musculoskeletal: VASCULAR OCCLUSION RIGHT LEG RIGHT PATELLA FRACTURE WITH orif NON HEALING WOUNDS R. TOE AMPUTATIONS Psychiatric: NONE Endocrine: diabetes Blood Disorders: anemia, coagulopathy, DVT (RUE and RLE), antiphosphlipid syndrome Cancer(s): NONE REIKI PRACTITIONER/Reproductive: NONE History of MRSA: No History of VRE: Yes History of CDIFF: No Surgical History Surgical History: colon resection, knee replacement (left), LEFT HIP ORIF status post right leg bypass status post right patellar ORIF status post right TMA status post lithotripsy and stent placements Past Family/Social History Family History Relations & Conditions if any FATHER Antiphospholipid syndrome FH: diabetes mellitus MOTHER FH: Crohn's disease Psychosocial History Who Do You Live With? spouse Services at Home: None Primary Language: Turkish Functional Ability ADLs Independent: dressing, eating, toileting, bathing. Ambulation: walker IADLs Needs Assist: shopping, housework, finances, food prep, telephone, transportation, medication admin. Review of Systems Review of Systems Constitutional: Reports: no symptoms. Exam & Diagnostic Data Last 24 Hrs of Vital Signs/I&O Vital Signs Date Time Temp Pulse Resp B/P Pulse O2 O2 Flow FiO2 Ox Delivery Rate 09/19 2331 98.0 83 18 100/72 95 Room Air 09/19 2245 98.6 122 20 108/78 96 09/19 2108 99.7 119 20 103/53 100 Room Air 09/19 1800 98.3 124 16 151/77 100 Room Air 09/19 1628 99 Room Air 09/19 1527 98.1 110 18 142/74 99 Nasal 2.0L Cannula 09/19 1229 98.0 74 16 139/79 100 Room Air 09/19 1200 99 Room Air 09/19 1120 75 22 123/71 95 Nasal 2.0L Cannula Intake & Output 09/20 0800 09/20 0000 09/19 1600 Intake Total 150 Output Total Balance 150 Intake, IV 150 Physical Exam General Appearance Alert, Oriented X3, Cooperative, No Acute Distress Skin echymosis noted HEENT Atraumatic, Mucous Membr. moist/pink Neck Supple, No JVD, No thryomegaly Lymphatic Cervical nl Cardiovascular Regular Rate, Normal S1, Normal S2 Lungs Clear to Auscultation, Normal Air Movement Abdomen Normal Bowel Sounds, Soft, No Tenderness, No Hepatospenomegaly Neurological Normal Gait, Normal Speech, Strength at 5/5 X4 Ext, Normal Tone Extremities PODUS boots intact bilateral Assessment/Plan Assessment: This is a 75-year-old gentleman with a past medical history of diabetes, no insufficiency end-stage renal disease on dialysis, peripheral vascular disease is presenting for evaluation of hypoglycemic events with unresponsiveness. Patient received dextrose infusion to the ED and was found to have regained intact mentation was alert and oriented. Impression * Hypoglycemia. Patient's reported decreased appetite and poor oral intake in the past few days could have precipitated a hypoglycemic events. Insulin therapy in a dialysis patient is is also a challenge as insulin stays longer in the body until dialyzed. * End Stage renal failure on hemodialysis * Adrenal insufficiency * Drug adverse effect. Patient is presenting with supratherapeutic INR of 5. After taking Coumadin as directed. * History of DVT on coagulation * Hyperlipidemia Plan Admit patient to general medicine floor Accu-Cheks every 3 hours Will put patient on low-dose NovoLog sliding scale and a very minimal bedtime adjustment scale. Contact nephrology to assess with the patient will need to have a makeup dialysis for today or wait for tomorrow Will hold off Coumadin dosing as patient is supratherapeutic with INR 5.37, recheck tomorrow Will continue 5 mg prednisone for adrenal insufficiency Will maintain on renal dialysis diet As Ranked By This Provider Problem List: 1. Altered mental status 2. Hypoglycemia Core Measures/Miscellaneous Acute Coronary Syndrome ACS Diagnosis: No Cerebrovascular Accident CVA/TIA Diagnosis: No Congestive Heart Failure CHF Diagnosis: No Venous Thromboembolism VTE Risk Factors: Acute medical illness, Age > 40 VTE Prophylaxis Ordered Inpt: [facility] prophylaxis d/t: No contraindications No VTE Pharm Prophylaxis d/t: No contraindications VTE Diagnosis: No VTE Type: NONE VTE Confirmed by (Test): NONE Severe Sepsis Severe Sepsis Present: No Septic Shock Septic Shock Present: No Miscellaneous Documentation Attending Case Discussed With: ALY OKEEFE MD . Primary Care Physician: WAYNE HUGO MD Patient sees these Specialists nephrology Level of Patient Care: General Surgical ALY BOWEN MD 09/19/16 1611: Attending MD Review Statement Attending Statement Attending MD Statement: examined this patient, discuss w/resident/PA/GENERAL MERCHANDISE SALESPERSON, agreed w/resident/PA/GENERAL MERCHANDISE SALESPERSON, discussed with family, reviewed EMR data (avail), discussed with nursing, discussed with case mgmt, reviewed images, amended to note Attending Assessment/Plan: 75-year-old male with extensive past medical history significant for end-stage renal disease, on hemodialysis, history of peripheral vascular disease, DVT,, antiphospholipid syndrome, history of chronic anemia, diabetes who was sent in from the rehabilitation secondary to having some alteration in his consciousness and hypoglycemic episode. Reportedly patient's blood sugar was checked this morning and it was found to be in 400s. He was given 9 units of insulin and later on after 4 hours when his blood sugar was checked again it was 27 and patient had alteration in his consciousness. He was found to be confused and not responding. According to patient's his blood sugar was in 40s yesterday. Patient was brought into the hospital but he does not remember any of that episode or even coming into the hospital via ambulance. In the emergency room patient was started on dextrose and at this point his blood sugar is much better in low 100s. He is complaining of some urinary burning. He has chronic wounds. He denies any headache, any chest pain any abdominal pain or shortness of breath. According to his he had some perspiration when he was hypoglycemic. Vital Signs Date Time Temp Pulse Resp B/P Pulse O2 O2 Flow FiO2 Ox Delivery Rate 09/19 1527 98.1 110 18 142/74 99 Nasal 2.0L Cannula 09/19 1229 98.0 74 16 139/79 100 Room Air 09/19 1200 99 Room Air 09/19 1120 75 22 123/71 95 Nasal 2.0L Cannula on exam; aox3, nad. cv; s1,s2, rrr. resp; clear. abd; soft, nt, bs+ ext; no edema. multiple chronic wounds on bl LE. Laboratory Tests 09/19 1142 Chemistry Sodium (137 - 145 mmol/L) 138 Potassium (3.5 - 5.1 mmol/L) 4.3 Chloride (98 - 107 mmol/L) 106 Carbon Dioxide (22 - 30 mmol/L) 24 Anion Gap (5 - 16) 8 BUN (9 - 20 mg/dL) 20 Creatinine (0.7 - 1.2 mg/dL) 3.0 H Estimated GFR (>60 ml/min) 21 L BUN/Creatinine Ratio (7 - 25 %) 6.7 L Glucose (65 - 99 mg/dL) 93 Calcium (8.4 - 10.2 mg/dL) 7.8 L Total Bilirubin (0.2 - 1.3 mg/dL) 0.5 AST (17 - 59 U/L) 23 ALT (21 - 72 U/L) 25 Alkaline Phosphatase (< 127 U/L) 84 Troponin I (<0.11 ng/ml) 0.01 Total Protein (6.3 - 8.2 g/dL) 4.9 L Albumin (3.5 - 5.0 g/dL) 2.0 L Globulin (1.9 - 4.2 gm/dL) 2.9 Albumin/Globulin Ratio (1.1 - 2.2 %) 0.7 L Hematology CBC w Diff NO MAN DIFF REQ WBC (4.8 - 10.8 /CUMM) 10.3 RBC (4.70 - 6.10 /CUMM) 3.87 L Hgb (14.0 - 18.0 G/DL) 11.1 L Hct (42 - 52 %) 35.0 L MCV (80.0 - 94.0 FL) 90.4 MCH (27.0 - 31.0 PG) 28.7 RDW (11.5 - 14.5 %) 20.5 H Plt Count (130 - 400 /CUMM) 224 MPV (7.4 - 10.4 FL) 8.4 Gran % (42.2 - 75.2 %) 80.9 H Lymphocytes % (20.5 - 51.1 %) 7.1 L Monocytes % (1.7 - 9.3 %) 9.3 Eosinophils % (0 - 5 %) 2.3 Basophils % (0.0 - 2.0 %) 0.4 Absolute Granulocytes (1.4 - 6.5 /CUMM) 8.3 H Absolute Lymphocytes (1.2 - 3.4 /CUMM) 0.7 L Absolute Monocytes (0.10 - 0.60 /CUMM) 1.0 H Absolute Eosinophils (0.0 - 0.7 /CUMM) 0.2 Absolute Basophils (0.0 - 0.2 /CUMM) 0 PUBS MCHC (33.0 - 37.0 G/DL) 31.8 L All imaging reviewed. EKG>> NSR, prolonged QTC. A/p; 75-year-old male with extensive past medical history significant for end- stage renal disease, on hemodialysis, history of peripheral vascular disease, DVT,, antiphospholipid syndrome, history of chronic anemia, diabetes admitted with altered mental state, confusion secondary to brief episode of metabolic encephalopathy from hypoglycemia. This is now getting resolved. Patient will be admitted to general medicine floor. Please confirm the dialysis with the manager state. Patient will be started on renal diabetic diet and his blood sugars will be monitored frequently. We'll stop the dextrose. If his blood sugars remained stable he can receive half the dose of his longer acting basal insulin. He will be kept on a low-dose sliding scale insulin. Will continue to monitor his blood sugar for another 24 hours. If blood sugars remain up-and-down, please consider endocrinology consult in the morning. Please confirm and continue the rest of his home medications. Please obtain wound care consult. Please check his urinalysis and urine culture. Please check INR, confirm if patient is taking Coumadin and confirm the dose. Please dose Coumadin accordingly today according to his INR. DVT prophylaxis: Please check INR and dose Coumadin accordingly. Patient is a full code. RODRIGOSHASTA 09/19/16 2000: Resident Review Statement Resident Statement: examined this patient, discussed with brand marketing intern, agreed with brand marketing intern, discussed with family, reviewed EMR data (avail), discussed with nursing , reviewed images Other Findings: Mr Marvin is a 75-year-old gentleman with PMH of antiphospholipid syndrome with recurrent DVTs and currently Coumadin, adrenal insufficiency, HTN, HLD, DM, ESRD on HD (Friday, , Friday), Crohn's disease, GERD, PVD with chronic pressure ulcers of lower extremities was brought in from the [facility] after low episodes of hypoglycemia. Information primarily obtained from the patient's : Yesterday afternoon she noted that the patient was slightly altered at which point an Accu-Chek revealed a blood sugar of 40, treated with glucose tablets. This morning when she went to see her 's blood sugar was 444 which he received 9 units of Humalog along with his basal 5 units Levemir. Around 10 AM she returned to the facility and found a team of care providers surrounding him. He was altered and appeared to be in a "coma state" with his blood sugar she reports being in the 20s. Of note, the patient does endorse a decrease in appetite over the past few weeks while at the facility. ROS: Patient does endorse intermittent episodes of generalized chills, tremor, burning with urination. He denies any current headache, blurry vision, dizziness, slurred speech, chest pain, palpitations, shortness of breath this time. Patient denies recalling any of the preceding events to his admission. VS: BP 123/71, HR 75, RR 22, SPO2 95% on RA, T 98.0 PE: AAO 3, no acute distress. Cranial nerves III through XII intact. Moist mucous membranes. RRR, normal S1/S2. Lungs CTA BL. Normal bowel sounds with no tenderness to palpation. No CVA tenderness. Bilateral lower extremities in Multi-Podus boots with both distal aspects wrapped in clean Band-Aids. There is a 6 x 4 cm healing ulcer with eschar on the medial aspect of the left thigh. Pertinent labs: WBC 10.3, H&H 11.8/35.0, platelets 224, sodium 138, potassium 4.3, BUN/CR 20/3.0, glucose 93 CXR: No acute cardiopulmonary abnormality compared to 09/02/[address]: No acute intracranial pathology. Chronic small vessel ischemic disease and volume loss EKG: Sinus rhythm, HR 71, atrial premature complexes. RBBB. QTC 504 Problem list: 1. Hypoglycemia: Multifactorial likely secondary to poor oral intake, increase insulin retention in setting of ESRD 2. ESRD on HD 3. History of DVT on Coumadin supratherapeutic INR 4. Adrenal insufficiency 5. Hyperlipidemia Plan: * Admit to general medicine for hyperglycemia management. Accu-Cheks every 3 hours overnight. Patient did receive his 5 units Levemir this morning. We'll put him on low-dose sliding scale TIDAC/QHS. If hypoglycemic will administer amp of dextrose * Plan for dialysis A. fib C evening or tomorrow morning * In the setting of dysuria: Follow-up urinalysis and culture. If evidence of UTI plan to treat for 10-14 days * Supratherapeutic INR: 5.37. Will hold off Coumadin today, recheck INR in the a.m. and dose accordingly * Iron deficiency anemia: Continue with iron supplementation * Adrenal insufficiency: We'll continue 5 mg prednisone * GI prophylaxis: Omeprazole 20 mg * Renal dialysis diet * CODE STATUS: Full code AM TEAM: Please consult with endocrinology for discharge recommendations on the patient's sliding scale. We have him on a low-dose at this time in the setting of poor oral intake and hypoglycemic episodes
[2016-09-19 18:58] LABS: PTT 54 SEC (25-37)
[2016-09-19 19:00] LABS: PT 55.5 SEC (9.4-12.5)
[2016-09-19 23:31] VITALS: BP 100/72
--- NOTE | 2016-09-20 02:51 | Event Note ---
Event Note Event Note: Around 8 PM on 09/19/2016, we were notified by the emergency room staff that the patient was persistently tachycardic. The attending physician and I saw and evaluated the patient. He had no complaints of chest discomfort or dyspnea. The etiology of his tachycardia was thought to be secondary to pain from his foot ulcers versus anxiety from being in the hospital versus dehydration. His troponin was negative, his EKG showed sinus tachycardia with no acute abnormalities. Patient's disposition was changed from general medicine to telemetry for overnight monitoring.
--- NOTE | 2016-09-20 06:39 | PN- Housestaff ---
HILL HEATH,NIC 09/20/16 0639: Subjective Follow-up For: hypoglycemia tachycardia Tele-Events Since Last Visit: ST 102-111 Subjective: Pt seen and examined this morning. He was alert, oriented, and in good spirits. he didnt get much sleep last night because he did not like the bed. ROS was negative including chest pain/discomfort/palpitations/shortness of breath/fever/chills. Positive for dysuria, that has been chronic. Cardiology, Dr. Cihlders consulted, for persistent tachycardia (around 110). He will be seen tomorrow. If continues to be asymptomatic, most likely can discontinue telemetry. 2Xtroponin negative. He has chronic necrotic and weeping ulcers on both legs. Has daily dressing change. As his blood sugar is around 100s now, will change accucheck to before meals and at bedtime. SS as per Dr. Hilton. As he missed his dialysis on , he will be getting dialysis today and tomorrow. Can be done as outpatient if pt gets discharged. Will get labs with dialysis and follow up INR for coumadin dosing (he might need a smaller dose of coumadin as his INR was supratherapeutic on 2.5 mg every other day) Review of Systems Constitutional: Reports: see HPI. Objective Last 24 Hrs of Vital Signs/I&O Vital Signs Date Time Temp Pulse Resp B/P Pulse O2 O2 Flow FiO2 Ox Delivery Rate 09/20 0833 98.5 113 18 135/87 91 Room Air 09/20 0000 96 09/19 2331 98.0 83 18 100/72 95 Room Air 09/19 2245 98.6 122 20 108/78 96 09/19 2108 99.7 119 20 103/53 100 Room Air 09/19 1800 98.3 124 16 151/77 100 Room Air 09/19 1628 99 Room Air Intake & Output 09/20 1600 09/20 0800 09/20 0000 Intake Total 480 Output Total Balance 480 Intake, Oral 480 Patient 63.503 kg Weight Physical Exam General Appearance: Alert, Oriented X3, Cooperative, No Acute Distress Skin: chronic ulcers on bilateral lower extremities Cardiovascular: Regular Rate, Normal S1, Normal S2, No Murmurs, Gallops, Rubs Lungs: Clear to Auscultation, Normal Air Movement Abdomen: Normal Bowel Sounds, Soft, No Tenderness Current Medications: Current Medications Sig/Kailash Start time Last Medication Dose Route Stop Time Status Admin Acetaminophen 650 MG ONCE ONE 09/19 1815 DC 09/19 PO 09/19 181 1820 Acetaminophen 0 .STK-MED ONE 09/19 1806 DC PO Aspirin Buffered 81 MG DAILY 09/20 1000 AC 09/20 PO 0903 Atorvastatin Calcium 40 MG 1700 09/20 1700 AC PO Atorvastatin Calcium 40 MG DAILY 09/19 1833 DC 09/19 PO 2042 Cyanocobalamin 1,000 MCG DAILY 09/20 1000 AC 09/20 PO 0904 Dextrose/Water 1,000 ML Q6H 09/19 1145 DC 09/19 IV 1156 Ferrous Sulfate 325 MG TID 09/19 1834 AC 09/20 PO 0903 Heparin Sodium 5,000 UNIT Q8 09/19 2200 CAN (Porcine) SC Insulin Aspart 0 SEE ADMIN CRITERIA 09/19 1845 DC SC Insulin Aspart 0 TIDAC 09/19 1700 AC 09/20 SC 1248 Insulin Detemir 5 UNITS DAILY 09/20 1000 AC 09/20 SC 0904 Multivitamins 1 TAB DAILY 09/20 1000 CAN PO Multivitamins 1 TAB DAILY 09/20 1000 AC 09/20 PO 0903 Omeprazole 20 MG DAILY AC 09/20 0700 AC 09/20 PO 0626 Oxycodone/ 2 TAB Q8 PRN 09/20 1400 AC Acetaminophen PO Oxycodone/ 2 TAB Q12P PRN 09/20 0915 DC Acetaminophen PO Oxycodone/ 2 TAB ONCE ONE 09/20 0900 DC 09/20 Acetaminophen PO 09/20 0901 0902 Prednisone 5 MG DAILY 09/20 1000 AC 09/20 PO 0904 Last 24 Hrs of Lab/Avtar Results Last 24 Hrs of Labs/Mics: Laboratory Tests 09/19/162211: Urine Color STRAW, Urine Clarity TURBD H, Urine pH 7.0, Ur Specific [place] 1.025, Urine Protein >=300 H, Urine Ketones NEG, Urine Nitrite NEG, Urine Bilirubin NEG, Urine Urobilinogen 0.2, Ur Leukocyte Esterase LARGE H, Ur Microscopic SEDIMENT EXAMINED, Urine RBC 1-3, Urine WBC > 75 H, Urine Hemoglobin LARGE H, Urine Glucose NEG 09/19/164: Troponin I < 0.01 09/19/16 1649: PT Cancelled, INR Cancelled Microbiology 09/19 2211 URINE ROUT: Urine Culture - RES 09/19 2129 BLOOD: Blood Culture - COLB 09/19 2129 BLOOD: Blood Culture - COLB Assessment/Plan Assessment: 75-year-old male with PMH of ESRD on HD, PVD with chronic bilateral LE ulcers, history of pseudomonal cellulitis, femoropopliteal bypass surgery antiphospholipid syndrome, DVT on coumadin, chronic anemia, Crohn's disease status post bowel resection and chronic prednisone therapy, with resulting adrenal insufficiency, subglottic edema and acute respiratory failure which required ICU admission in May 2016, kidney stones status post lithotripsy, IDDM admitted with altered mental state, confusion secondary to brief episode of metabolic encephalopathy from hypoglycemia. He was also tachycardic although asymptomatic, so he was admitted to telemetry with the following problems addressed: # Lethargy due to hypoglycemia (resolved) # Tachycardia on unknown etiology (asymptomatic) # Chronic lower extremity wounds # ESRD on dialysis Fri, Fri, Fri # Supratherapeutic INR # Lethargy due to hypoglycemia - His BS on day of admission was 27 and he was found to be unresponsive at the rehab facility. That morning his blood sugar was 404, and he was given 9 units of insulin. He did not eat breakfast. 2 hours later, his BS was found to be 27. * Continue Levemir 5 units once a day. * Sliding scale NovoLog before meals should be less than 150 give no insulin, on 151-200 give 2 units NovoLog, 201- 250 give 3 units NovoLog, 251-300 give 4 units NovoLog, 301-350 give 5 units NovoLog 351-400 give 6 units NovoLog. If the patient does not eat his meal NovoLog can be held. In fact if needed we can give the NovoLog right after meals and after assessing how much he has eaten. * Accucheck to before meals and at bedtime * Dr Hilton following # Tachycardia on unknown etiology. Unlikely to be sepsis as he denies fever/ chills, and his dysuria (with UA large LE, WBC > 75) has been chronic and has grown yeast repeatedly in the past despite having been treated with fluconazole. His carvedilol was discontinued on last admission due to low blood pressure and has not been restarted. - Cardiology, Dr. Childers consulted, for persistent tachycardia (around 110) although he denies chest pain/discomfort/palpitations/shortness of breath. - 2Xtroponin negative. - Previous echo * Dr Childers consulted * If continues to be asymptomatic, most likely can discontinue telemetry * Consider re-starting carvedilol 25 mg bid if BP can tolerate it # Chronic lower extremity wounds - He has chronic necrotic and weeping ulcers on both legs. * Daily dressing change. * Pain control with 2 tabs percocet Q8P # ESRD on dialysis Fri, Fri, Fri - As he missed his dialysis on , he will be getting dialysis 09/20 and 09/21. * Can be done as outpatient if pt gets discharged. # Supratherapeutic INR * Will get labs with dialysis and follow up INR for coumadin dosing (he might need a smaller dose of coumadin as his INR was supratherapeutic on 2.5 mg every other day) Diet: Renal dialysis diet DVT ppx:warfarin FULL CODE Labs: DAILY INR AND COUMADIN Consults: Cardio, nephro, endo Problem List: 1. Hypoglycemia 2. Tachycardia Pain Ratin Pain Location: lower extremities Pain Goal: Pain 7 or less Pain Plan: percocet Tomorrow's Labs & Rationales: inr for warfarin dose DVT/Prophylaxis: mechanical, pharmacological ARTURO HEATH,JASSGarrett 09/20/16 1618: Attending MD Review Statement Attending Statement Attending MD Statement: examined this patient, discuss w/resident/PA/PRODUCTION ASSEMBLY OPERATOR, agreed w/resident/PA/PRODUCTION ASSEMBLY OPERATOR, discussed with family, reviewed EMR data (avail), discussed with nursing, discussed with case mgmt, amended to note Attending Assessment/Plan: Patient seen and examined. Resting comfortably not in acute distress. Bilateral oriented 3. Denies any pain. No events overnight. He however remains in sinus tachycardia today. He is not in pain. He is not febrile. There is no evidence of infection. His TSH is within normal limits. It is noted that patient was on beta randy therapy in the past however this had to be discontinued due to repeated episodes of hypotension. We'll follow-up with the cardiology service regarding further management of his bradycardia. He is unlikely to tolerate beta randy or calcium channel randy therapy as he tends to become hypotensive during hemodialysis. Blood glucose levels appear better controlled. reports that he was getting his meals late in the morning. This may have contributed to his hypoglycemic episode at the group home. He is back on his routine insulin regimen with no further episodes of hypoglycemia here. The patient continues to do well he may be discharged back to group home facility over the weekend.
--- NOTE | 2016-09-20 08:31 | Cons- Endocrinology ---
General Information and HPI Consulting Request Date of Consult: 09/20/16 Requested By: medical team Reason for Consult: Hypoglycemia Source of Information: patient, old records Exam Limitations: no limitations History of Present Illness: This 75-year-old male with multiple medical problems sent back from the group home to [facility] emergency room because of episodes of hypoglycemia. The patient is on insulin therapy. He has been eating poorly. The patient has a history of hypertension COPD peripheral vascular disease necrotizing doses status post femoropopliteal bypass, end-stage renal disease on dialysis, and some dementia. Allergies/Medications Allergies: Coded Allergies: Sulfa (Sulfonamide Antibiotics) (Mild, HIVES 06/15/16) Home Med List: Aspirin (Ecotrin*) 81 MG TABLET.DR 1 TAB PO QPM HEART HEALTH (Reported) Reason to Stop at ADM: high INR, risk for bleeding Atorvastatin Calcium 40 MG TABLET 1 TAB PO QPM CHOLESTEROL (Reported) Carvedilol (Coreg) 3.125 MG TABLET 6.25 MG PO BID high heart rate Reason to Stop at ADM: hypotensive Cholestyramine/Aspartame (Cholestyramine Light Packet) 4 GRAM POWD.PACK 1 PAC PO BID Malabsorption Ferrous Sulfate 325 MG (65 MG IRON) TABLET 1 TAB PO QPM SUPPLEMENT (Reported) Guaifenesin (Mucinex) 600 MG TAB.ER.12H 1 TAB PO BID cONGESTION Insulin Aspart (Novolog) 100 UNIT/ML VIAL 0 UNITS SC TIDAC Diabetes BEFORE MEALS Blood Insulin Sugar Units <80 Intiate hypoglycemia 80-150 2 151-200 3 201-250 4 251-300 5 301-350 6 351-400 7 >400 8 and Call Doctor AT BEDTIME Blood Insulin Sugar Units <80 Intiate hypoglycemia 81-150 0 151-200 0 201-250 0 251-300 0 301-350 2 351-400 2 >400 3 and Call Doctor Ofloxacin 0.3 % DROPS 1 GTT OT Q6 conjunctivitis Omeprazole 20 MG CAPSULE.DR 1 CAP PO DAILY GI (Reported) Prednisone 5 MG TABLET 1 TAB PO DAILY Crohns disease Sevelamer Carbonate (Renvela) 800 MG TABLET 1 TAB PO TIDWM KIDNEYS (Reported) RESTART WHEN PHOS LEVEL >3.5 Sodium Chloride (Saline Nasal [place]) 0.65 % SPRAY 1 SPRAY NASB 4 TIMES/DAY PRN dRY NOSE Warfarin Sodium (Coumadin) 1 MG TABLET 1 TAB PO Q48 BLOOD THINNER (Reported) Reason to Stop at ADM:supratherapeutic INR. Please monitor his INR regularly in the setting of multiple fluctations Current Medications: Current Medications Sig/Kailash Start time Last Medication Dose Route Stop Time Status Admin Acetaminophen 650 MG ONCE ONE 09/19 1815 DC 09/19 PO 09/19 181 1820 Acetaminophen 0 .STK-MED ONE 09/19 1806 DC PO Aspirin Buffered 81 MG DAILY 09/20 1000 AC PO Atorvastatin Calcium 40 MG 1700 09/20 1700 AC PO Atorvastatin Calcium 40 MG DAILY 09/19 1833 DC 09/19 PO 2042 Cyanocobalamin 1,000 MCG DAILY 09/20 1000 AC PO Dextrose 12.5 GM ONE ONE 09/19 1400 DC 09/19 IV 09/19 1401 1355 Dextrose 1 SYR ONE ONE 09/19 1345 CAN IV 09/19 1700 Dextrose/Water 1,000 ML Q6H 09/19 1145 DC 09/19 IV 1156 Ferrous Sulfate 325 MG TID 09/19 1834 AC 09/19 PO 2109 Heparin Sodium 5,000 UNIT Q8 09/19 2200 CAN (Porcine) SC Insulin Aspart 0 SEE ADMIN CRITERIA 09/19 1845 DC SC Insulin Aspart 0 TIDAC 09/19 1700 AC SC Insulin Detemir 5 UNITS DAILY 09/20 1000 AC SC Multivitamins 1 TAB DAILY 09/20 1000 CAN PO Multivitamins 1 TAB DAILY 09/20 1000 AC PO Omeprazole 20 MG DAILY AC 09/20 0700 AC 09/20 PO 0626 Prednisone 5 MG DAILY 09/20 1000 AC PO Review of Systems Review of Systems Constitutional: Denies: chills, fever. Respiratory: Denies: short of breath. GI: Denies: nausea, vomiting. Skin: Reports: lesions. Past History Travel History Traveled to [place] past 21 day No Medical History Neurological: NONE EENT: NONE Cardiovascular: PVD, DVT Respiratory: pneumonia Gastrointestinal: Crohn's disease Hepatic: NONE Renal: nephrolithiasis, CKD Musculoskeletal: VASCULAR OCCLUSION RIGHT LEG RIGHT PATELLA FRACTURE WITH orif NON HEALING WOUNDS R. 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 spouse Services at Home: None Primary Language: Lao Smoking Status: Former Smoker Functional Ability ADLs Independent: dressing, eating, toileting, bathing. Ambulation: walker IADLs Needs Assist: shopping, housework, finances, food prep, telephone, transportation, medication admin. Exam & Diagnostic Data Last 24 Hrs of Vital Signs/I&O Vital Signs Date Time Temp Pulse Resp B/P Pulse O2 O2 Flow FiO2 Ox Delivery Rate 09/20 0000 96 09/19 2331 98.0 83 18 100/72 95 Room Air 09/19 2245 98.6 122 20 108/78 96 09/19 2108 99.7 119 20 103/53 100 Room Air 09/19 1800 98.3 124 16 151/77 100 Room Air 09/19 1628 99 Room Air 09/19 1527 98.1 110 18 142/74 99 Nasal 2.0L Cannula 09/19 1229 98.0 74 16 139/79 100 Room Air 09/19 1200 99 Room Air 09/19 1120 75 22 123/71 95 Nasal 2.0L Cannula Intake & Output 09/20 1600 09/20 0800 09/20 0000 Intake Total 480 Output Total Balance 480 Intake, Oral 480 Patient 140 lb Weight Physical Exam General Appearance: alert, awake, comfortable Head: normal appearance Neck: normal inspection Respiratory: normal breath sounds Cardiovascular: regular rate/rhythm Gastrointestinal: normal bowel sounds Extremities: legs bandaged Assessment/Plan Assessment/Plan This unfortunate patient is a 75-year-old male with known history of type 2 diabetes and end-stage renal disease on hemodialysis. He was at the [facility] and apparently stopped eating. He did not like the food there. He developed hypoglycemia which was treated and then the next day woke up with high sugar. He was given NovoLog 9 units and crashed with a low blood sugar thereafter. Suggest continue Levemir 5 units once a day. In addition would change the patient's sliding scale NovoLog. Sliding scale NovoLog before meals should be less than 150 give no insulin, on 151-200 give 2 units NovoLog, 201- 250 give 3 units NovoLog, 251-300 give 4 units NovoLog, 301-350 give 5 units NovoLog 351- 400 give 6 units NovoLog. If the patient does not eat his meal NovoLog can be held. In fact if needed we can give the NovoLog right after meals and after assessing how much he has eaten. Consult Acknowledgment - Thank you for your consult request.
[2016-09-20 08:33] VITALS: BP 135/87
--- NOTE | 2016-09-20 09:16 | Cons- Nephrology ---
General Information and HPI Consulting Request Date of Consult: 09/20/16 Requested By: ROSALVA HEATH,MARK Cordova Reason for Consult: ESRD Source of Information: patient, family, old records Exam Limitations: no limitations History of Present Illness: 75 yr old WM w mult med problems including DM, HTN, PVD, Chrohn's, anti- phspholipid syndrome s/p mult DVT, & ESRD on chronic HD admit yesterday after hypoglycemic event. Hosp earlier this month w change MS, diarrhea, fever, & hypotension --> ? pneumonia Rx w antibiotics & steroids. Discharged back to [facility] where continued on insulin w poor intake yesterday morning but w/o vomiting. Last HD 3 days ago; has chronic tunneled R IJ cath after failed R arm AVF creation. Also has chronic leg ulcers w negative bx for calciphylaxis. Allergies/Medications Allergies: Coded Allergies: Sulfa (Sulfonamide Antibiotics) (Mild, HIVES 06/15/16) Home Med List: Aspirin (Ecotrin*) 81 MG TABLET. 1 TAB PO DAILY hEART hEALTH Atorvastatin Calcium 40 MG TABLET 1 TAB PO DAILY HIGH LIPIDS B Complex & C No.20/Folic Acid (Nephrocaps Softgel) 1 MG CAPSULE 1 CAP PO DAILY SUPPLEMENT Calcium Carbonate/Vitamin D3 (Os-Vishal 500+D3 Caplet) 500 MG-600 TABLET 1 TAB PO TID SUPPLEMENT (Reported) Cyanocobalamin (Vitamin B-12) (Vitamin B-12) 500 MCG TABLET 2 TAB PO DAILY ANEMIA (Reported) Ferrous Sulfate 325 MG (65 MG IRON) TABLET 1 TAB PO TID SUPPLEMENT (Reported) Guaifenesin (Mucinex) 600 MG TAB.ER.12H 1 TAB PO BID cONGESTION Insulin Aspart (Novolog) 100 UNIT/ML VIAL 0 UNITS SC SEE ADMIN CRITERIA BEFORE MEALS Blood Insulin Sugar Units <80 0 80-99 0 100-150 4 151-200 5 201-250 6 251-300 7 301-350 8 351-400 9 >400 Call MD AT BEDTIME Blood Insulin Sugar Units <80 0 81-100 0 101-200 0 201-250 0 251-300 2 301-350 3 351-400 4 >400 Call Doctor, 5 units Insulin Detemir (Levemir) 100 UNIT/ML VIAL 5 UNITS SC DAILY diabetes Nephro-Vitamins (Nephro-Arthur Tablet) 0.8 MG TABLET 1 TAB PO DAILY kidney Omeprazole 20 MG CAPSULE. 1 CAP PO DAILY GI (Reported) Oxycodone HCl/Acetaminophen (Percocet 5-325 MG Tablet) 5 MG-325 MG TABLET 2 TAB PO Q8P PRN PAIN SCALE 4-6 (MODERATE) Prednisone 5 MG TABLET 1 TAB PO DAILY Adrenals arenal insufficinecy Sevelamer Carbonate (Renvela) 800 MG TABLET 1 TAB PO TIDWM KIDNEYS (Reported) RESTART WHEN PHOS LEVEL >3.5 Sodium Chloride (Saline Nasal [place]) 0.65 % SPRAY 1 SPRAY NASB 4 TIMES/DAY PRN dRY NOSE Warfarin Sodium (Coumadin) 2.5 MG TABLET 1 TAB PO EOD apla (Reported) Current Medications: Current Medications Sig/Kailash Start time Last Medication Dose Route Stop Time Status Admin Acetaminophen 650 MG ONCE ONE 09/19 181 DC 09/19 PO 09/19 1816 1820 Acetaminophen 0 .STK-MED ONE 09/19 1806 DC PO Aspirin Buffered 81 MG DAILY 09/20 1000 AC 09/20 PO 0903 Atorvastatin Calcium 40 MG 1700 09/20 1700 AC PO Atorvastatin Calcium 40 MG DAILY 09/19 1833 DC 09/19 PO 2042 Cyanocobalamin 1,000 MCG DAILY 09/20 1000 AC 09/20 PO 0904 Dextrose 12.5 GM ONE ONE 09/19 1400 DC 09/19 IV 09/19 1401 1355 Dextrose 1 SYR ONE ONE 09/19 1345 CAN IV 09/19 1700 Dextrose/Water 1,000 ML Q6H 09/19 1145 DC 09/19 IV 1156 Ferrous Sulfate 325 MG TID 09/19 1834 AC 09/20 PO 0903 Heparin Sodium 5,000 UNIT Q8 09/19 2200 CAN (Porcine) SC Insulin Aspart 0 SEE ADMIN CRITERIA 09/19 1845 DC SC Insulin Aspart 0 TIDAC 09/19 1700 AC SC Insulin Detemir 5 UNITS DAILY 09/20 1000 AC 09/20 SC 0904 Multivitamins 1 TAB DAILY 09/20 1000 CAN PO Multivitamins 1 TAB DAILY 09/20 1000 AC 09/20 PO 0903 Omeprazole 20 MG DAILY AC 09/20 0700 AC 09/20 PO 0626 Oxycodone/ 2 TAB ONCE ONE 09/20 0900 DC 09/20 Acetaminophen PO 09/20 0901 0902 Prednisone 5 MG DAILY 09/20 1000 AC 09/20 PO 0904 Review of Systems Review of Systems Constitutional: Reports: no symptoms. EENTM: Reports: no symptoms. Cardiovascular: Reports: no symptoms. Respiratory: Reports: cough (nonproductive). GI: Reports: no symptoms. Genitourinary: Reports: no symptoms. Musculoskeletal: Reports: no symptoms. Skin: Reports: no symptoms. Neurological/Psychological: Reports: see HPI. Hematologic/Endocrine: Reports: bruising. Immunologic/Allergic: Reports: no symptoms. All Other Systems: Reviewed and Negative Past History Travel History Traveled to [place] past 21 day No Medical History Neurological: NONE EENT: NONE Cardiovascular: PVD, DVT Respiratory: pneumonia Gastrointestinal: Crohn's disease Hepatic: NONE Renal: nephrolithiasis, CKD Musculoskeletal: VASCULAR OCCLUSION RIGHT LEG RIGHT PATELLA FRACTURE WITH orif NON HEALING WOUNDS R. 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 spouse Services at Home: None Primary Language: Maori Smoking Status: Former Smoker Functional Ability ADLs Independent: dressing, eating, toileting, bathing. Ambulation: walker IADLs Needs Assist: shopping, housework, finances, food prep, telephone, transportation, medication admin. Exam & Diagnostic Data Vital Signs and I&O Vital Signs Date Time Temp Pulse Resp B/P Pulse O2 O2 Flow FiO2 Ox Delivery Rate 09/20 0833 98.5 113 18 135/87 91 Room Air 09/20 0000 96 09/19 2331 98.0 83 18 100/72 95 Room Air 09/19 2245 98.6 122 20 108/78 96 09/19 2108 99.7 119 20 103/53 100 Room Air 09/19 1800 98.3 124 16 151/77 100 Room Air 09/19 1628 99 Room Air 09/19 1527 98.1 110 18 142/74 99 Nasal 2.0L Cannula 09/19 1229 98.0 74 16 139/79 100 Room Air 09/19 1200 99 Room Air 09/19 1120 75 22 123/71 95 Nasal 2.0L Cannula Intake & Output 09/20 1600 09/20 0400 09/19 1600 09/19 0400 09/18 1600 09/18 0400 Intake Total 480 150 Output Total Balance 480 150 Intake, IV 150 Intake, Oral 480 Patient 140 lb Weight Physical Exam General Appearance: no apparent distress, alert, awake Head: atraumatic, normal appearance Eyes: Bilateral: normal appearance. 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 Skin: ecchymosis Lymphatic: no anterior cervical rebecca Results Pertinent Lab Results: Laboratory Tests 09/19 09/19 09/19 2212 2124 1649 Chemistry Troponin I (<0.11 ng/ml) < 0.01 Coagulation PT Cancelled INR Cancelled Urines Urine Color (YEL,AMB,STR) STRAW Urine Clarity (CLEAR) TURBD H Urine pH (5.0 - 8.0) 7.0 Ur Specific [place] (1.001 - 1.035) 1.025 Urine Protein (NEG,<30 MG/DL) >=300 H Urine Ketones (NEG) NEG Urine Nitrite (NEG) NEG Urine Bilirubin (NEG) NEG Urine Urobilinogen (0.1 - 1.0 EU/dl) 0.2 Ur Leukocyte Esterase (NEG) LARGE H Ur Microscopic SEDIMENT EXAMINED Urine RBC (0 - 5 /HPF) 1-3 Urine WBC (0 - 2 /HPF) > 75 H Urine Hemoglobin (NEG) LARGE H Urine Glucose (N MG/DL) NEG 09/19 1142 Chemistry Sodium (137 - 145 mmol/L) 138 Potassium (3.5 - 5.1 mmol/L) 4.3 Chloride (98 - 107 mmol/L) 106 Carbon Dioxide (22 - 30 mmol/L) 24 Anion Gap (5 - 16) 8 BUN (9 - 20 mg/dL) 20 Creatinine (0.7 - 1.2 mg/dL) 3.0 H Estimated GFR (>60 ml/min) 21 L BUN/Creatinine Ratio (7 - 25 %) 6.7 L Glucose (65 - 99 mg/dL) 93 Calcium (8.4 - 10.2 mg/dL) 7.8 L Total Bilirubin (0.2 - 1.3 mg/dL) 0.5 AST (17 - 59 U/L) 23 ALT (21 - 72 U/L) 25 Alkaline Phosphatase (< 127 U/L) 84 Troponin I (<0.11 ng/ml) 0.01 Total Protein (6.3 - 8.2 g/dL) 4.9 L Albumin (3.5 - 5.0 g/dL) 2.0 L Globulin (1.9 - 4.2 gm/dL) 2.9 Albumin/Globulin Ratio (1.1 - 2.2 %) 0.7 L Coagulation PT (9.4 - 12.5 SEC) 55.5 *H INR (0.90 - 1.17) 5.37 *H APTT (25 - 37 SEC) 54 H Hematology CBC w Diff NO MAN DIFF REQ WBC (4.8 - 10.8 /CUMM) 10.3 RBC (4.70 - 6.10 /CUMM) 3.87 L Hgb (14.0 - 18.0 G/DL) 11.1 L Hct (42 - 52 %) 35.0 L MCV (80.0 - 94.0 FL) 90.4 MCH (27.0 - 31.0 PG) 28.7 RDW (11.5 - 14.5 %) 20.5 H Plt Count (130 - 400 /CUMM) 224 MPV (7.4 - 10.4 FL) 8.4 Gran % (42.2 - 75.2 %) 80.9 H Lymphocytes % (20.5 - 51.1 %) 7.1 L Monocytes % (1.7 - 9.3 %) 9.3 Eosinophils % (0 - 5 %) 2.3 Basophils % (0.0 - 2.0 %) 0.4 Absolute Granulocytes (1.4 - 6.5 /CUMM) 8.3 H Absolute Lymphocytes (1.2 - 3.4 /CUMM) 0.7 L Absolute Monocytes (0.10 - 0.60 /CUMM) 1.0 H Absolute Eosinophils (0.0 - 0.7 /CUMM) 0.2 Absolute Basophils (0.0 - 0.2 /CUMM) 0 PUBS MCHC (33.0 - 37.0 G/DL) 31.8 L Imaging/Other Studies: CXR from 09/02/2016 TECHNIQUE: Portable AP view of the chest was obtained. FINDINGS: Lungs are symmetrically expanded and without evidence of acute consolidation, edema or pleural effusion. Linear opacity in the retrocardiac region of the left lower lobe is compatible with focal scar or atelectasis; this is similar in appearance compared to prior radiograph. Cardiac silhouette is normal in size. There is atherosclerotic calcification of the aortic arch. The tip of the dual-lumen catheter is at the junction of the superior vena cava and right atrium. There is osteoarthrosis with remodeling deformity of the suboptimally visualized right glenohumeral joint. Old, healed fracture of the right lateral fifth rib. IMPRESSION: No acute cardiopulmonary abnormality compared to 09/02/2016. CT: No acute intracranial pathology. Chronic small vessel ischemic disease and volume loss. Assessment/Plan Assessment/Recommendations Assessment: 1. ESRD: due to DM & HTN; no dialysis for 3 days & will require HD today 2. Hypoglycemia: improved 3. Anti-phospholipid syndrome: INR hi - warfarin on hold as recheck Recommendations: 1. HD today 2. HD again tomorrow --> can be done as outpt if d/c 3. EPO 5000 units tiw IV w HD
[2016-09-20] MEDS ORDERED: COUMADIN1 M1 PO (15:01)
--- NOTE | 2016-09-20 15:05 | Patient Discharge Instructions ---
Discharge Instructions General Discharge Information You were seen/treated for: - Metabolic encephalopathy due to hypoglycemia - ESRD on dialysis - Tachycardia - Supratherapeutic INR Special Instructions: -Please follow up with PCP, Cardiology and Dr. Hilton in 1 week. -Please check daily INR; your warfarin dose should be adjusted based on your INR levels; INR goal 2-3. -Encourage PO intake, patient likes to eat breakfast-type food. - Blood glucose levels and blood pressure should be monitored closely with adjsutment to regiment as needed. Diet Recommended Diet: Diabetic, Renal Dialysis Activity Full Activity/No Limits: Yes Acute Coronary Syndrome Inclusion Criteria At DC or during hospital stay patient has or had the following: ACS DIAGNOSIS No Discharge Core Measures Meds if any: Prescribed or Continued at Discharge Meds if any: NOT Prescribed or Continued at Discharge Congestive Heart Failure Inclusion Criteria At DC or during hospital stay patient has or had the following: CHF DIAGNOSIS No Discharge Core Measures Meds if any: Prescribed or Continued at Discharge Meds if any: NOT Prescribed or Continued at Discharge Cerebrovascular accident Inclusion Criteria At DC or during hospital stay patient has or had the following: CVA/TIA Diagnosis No Discharge Core Measures Meds if any: Prescribed or Continued at Discharge Meds if any: NOT Prescribed or Continued at Discharge Venous thromboembolism Inclusion Criteria VTE Diagnosis No VTE Type NONE VTE Confirmed by (Test) NONE Discharge Core Measures - Per Current guidelines, there needs to be overlap - treatment for the first 5 days of Warfarin therapy. - If discharged on Warfarin prior to 5 days of - overlap therapy, the patient will need to be - assessed for post discharge needs including - *Post discharge parental anticoagulation - *Warfarin and/or parental anticoagulation education - *Follow up date to check INR post discharge At least 5 days overlap therapy as Inpatient No Meds if any: Prescribed or Continued at Discharge Note: Overlap Therapy is Warfarin and Anticoagulant Meds if any: NOT Prescribed or Continued at Discharge
[2016-09-20 16:29] LABS: ABSOLUTE BASOPHIL COUNT 0 /CUMM (0.0-0.2); ABSOLUTE EOSINOPHIL COUNT 0 /CUMM (0.0-0.7); ABSOLUTE LYMPH COUNT 0.5 /CUMM (1.2-3.4); MEAN PLATELET VOLUME 8.4 FL (7.4-10.4); RBC DISTRIBUTION WIDTH 20.9 % (11.5-14.5)
[2016-09-20 16:33] LABS: ABSOLUTE GRANULOCYTE CT 5.9 /CUMM (1.4-6.5); ABSOLUTE MONOCYTE COUNT 0.6 /CUMM (0.10-0.60); BASOPHIL % 0.4 % (0.0-2.0); EOSINOPHIL % 0.7 % (0-5); GRANULOCYTE % 83.3 % (42.2-75.2); MEAN CORPUSCULAR HGB 27.8 PG (27.0-31.0); MEAN CORPUSCULAR HGB CONC 30.5 G/DL (33.0-37.0); MEAN CORPUSCULAR VOLUME 91.2 FL (80.0-94.0); PLATELET COUNT 274 /CUMM (130-400); RED BLOOD CELL CT 3.24 /CUMM (4.70-6.10); WHITE BLOOD CELL COUNT 7.1 /CUMM (4.8-10.8)
[2016-09-20 16:35] LABS: HEMATOCRIT 29.5 % (42-52)
--- NOTE | 2016-09-20 17:13 | Discharge Summary ---
Visit Information Visit Dates Admission Date: 09/19/16 Discharge Date: 09/23/16 Hospital Course Course Attending Physician: Dr. Lucero Primary Care Physician: OANH HEATH,WAYNE Posada Consulting Request: 1 Consulting Specialty: Cardiology Consulting Request: 2 Consulting Specialty: Endocrinology Hospital Course: This is a 75-year-old gentleman with PMH significant for ESRD on HD(Friday and Friday), has chronic tunneled R IJ cath after failed R arm AVF creation, PVD with chronic bilateral LE ulcers, history of pseudomonal cellulitis, femoropopliteal bypass surgery antiphospholipid syndrome, DVT on coumadin, chronic anemia, Crohn's disease status post bowel resection and chronic prednisone therapy, with resulting adrenal insufficiency, subglottic edema and acute respiratory failure which required ICU admission in May 2016, kidney stones status post lithotripsy, IDDM admitted with altered mental state, confusion secondary to brief episode of metabolic encephalopathy from hypoglycemia. He was also tachycardic although asymptomatic, so he was admitted to telemetry with the following problems addressed: # Lethargy due to hypoglycemia His glucose level on day of admission was 27 and he was found to be unresponsive at the rehab facility. That morning his blood sugar was 404, and he was given 9 units of insulin. He did not eat breakfast. 2 hours later, his BS was found to be 27. Patient received dextrose infusion to the ED and was found to have regained intact mentation was alert and oriented. Endocrinology was consulted and recommendations were followed. The patient was initially maintained on Ins SS and Levemir 5 units QD. And insulin sliding scale dosing was adjusted per endocrine recommendations. Patient had episodes of hypoglycemia to 50s-60s. On 09/22/2016, Levemir was discontinued, noting patient did not receive any sliding scale as well. Blood glucose levels ranging 120s to 220s. Endocrinology recommended to add Levemir 3 units daily on 09/23/2016. If the patient does not eat his meal NovoLog can be held. In fact if needed we can give the NovoLog right after meals and after assessing how much he has eaten. Lethargia resolved. # Sinus Tachycardia: Asymptomatic. Likely due to medical issues including LE pain and holding B-randy. His carvedilol was discontinued on last admission due to low blood pressure and has not been restarted. He also denied chest pain/ discomfort/palpitations/shortness of breath. Cardiology was consulted. ACS was ruled out w/serial troponins and EKGs. There was also no evidence of CHF. The patient was started on low dose carvedilol ( 6.25 mg by mouth twice a day) which can be increased to his previous home dose( 25 mg by mouth twice a day) if blood pressure tolerates. Should have close follow up with cardiology. # Chronic lower extremity wounds He has chronic necrotic and weeping ulcers on both legs. Wound consult placed. Daily dressing change. Pain control with 2 tabs percocet Q8P. # ESRD on dialysis Received dialysis during his hospital stay. Received EPO 5000 units tiw IV w HD. # Supratherapeutic INR INR 5.37 on admission. Warfarin was held on admission. INR was monitored daily ranging 4-5. Plan to check daily INR and adjust Warfarin dose accordingly, target INR is 2-3. Diet: Diabetic Renal dialysis diet DVT ppx:warfarin/supratherapeutic INR FULL CODE Allergies: Coded Allergies: Sulfa (Sulfonamide Antibiotics) (Mild, HIVES 06/15/16) Disposition Summary Disposition Principal Diagnosis: - Metabolic encephalopathy due to hypoglycemia Additional Diagnosis: -Sinus tachycardia - ESRD on dialysis - Supratherapeutic INR Discharge Disposition: SNF Discharge Instructions General Discharge Information Code Status: Full Code Patient's Diet: Diabetic Renal dialysis diet Patient's Activity: As tolerated Follow-Up Instructions/Appts: -Please follow up with PCP and Dr. Hilton, cardiology in 1 week. -Please check daily INR; warfarin dose should be adjusted based on INR levels; INR goal 2-3. -Encourage PO intake, patient likes to eat breakfast-type food. - Blood glucose levels and blood pressure should be monitored closely with adjsutment to regiment as needed. Medications at Discharge Discharge Medications: Stop taking the following medications: Insulin Detemir (Levemir) 100 UNIT/ML VIAL Inject into fatty tissue DAILY Days = 28 Insulin Aspart (Novolog) 100 UNIT/ML VIAL Inject into fatty tissue SEE INSTRUCTIONS Qty = 10 Warfarin Sodium (Coumadin) 2.5 MG TABLET ORAL Every other day Continue taking these medications: Cyanocobalamin (Vitamin B-12) (Vitamin B-12) 500 MCG TABLET 2 Tablet ORAL DAILY Comments: Last Taken:09/13/16 Time:10:11A.M Ferrous Sulfate (Ferrous Sulfate) 325 MG (65 MG IRON) TABLET 1 Tablet ORAL Every night Comments: Last Taken:09/23/16 Time:10:11A.M Sevelamer Carbonate (Renvela) 800 MG TABLET 1 Tablet ORAL TIDWM Instructions: RESTART WHEN PHOS LEVEL >3.5 Comments: Calcium Carbonate/Vitamin D3 (Os-Vishal 500+D3 Caplet) 500 MG-600 TABLET 1 Tablet ORAL THREE TIMES DAILY Comments: Last Taken:NOT GIVEN THIS ADMISSION Time: Nephro-Vitamins (Nephro-Arthur Tablet) 0.8 MG TABLET 1 Tablet ORAL DAILY Days = 28 Comments: Last Taken:09/23/16 Time:10:11A.M Oxycodone HCl/Acetaminophen (Percocet 5-325 MG Tablet) 5 MG-325 MG TABLET 2 Tablet ORAL EVERY 8 HOURS NEEDED as needed for PAIN SCALE 4-6 (MODERATE ) Qty = 15 Comments: Last Taken: 09/23/16 Time: 12:32PM B Complex & C No.20/Folic Acid (Nephrocaps Softgel) 1 MG CAPSULE 1 Capsule ORAL DAILY Qty = 30 Comments: Last Taken:NOT GIVEN THIS ADMISSION Time: Guaifenesin (Mucinex) 600 MG TAB.ER.12H 1 Tablet ORAL TWICE DAILY Qty = 20 Comments: DID NOT RECEIVE IN HOSPITAL Sodium Chloride (Saline Nasal [place]) 0.65 % SPRAY 1 [place] Both sides of nose 4 TIMES A DAY as needed for dRY NOSE Qty = 60 Comments: NOT GIVEN IN HOSPITAL Prednisone (Prednisone) 5 MG TABLET 1 Tablet ORAL DAILY Qty = 30 Instructions: arenal insufficinecy Comments: Last Taken: 09/23/16 Time: 10:11 AM Omeprazole (Omeprazole) 20 MG CAPSULE. 1 Capsule ORAL DAILY Start taking the following new medications: Insulin Aspart (Novolog) 100 UNIT/ML VIAL 0 Units Inject into fatty tissue 3 TIMES DAILY BEFORE MEALS Qty = 60 No Refills Instructions: Do not give novolog unless patient eats! Give novolog only after assessing his food intake. Blood sugar Less than 150: no insulin 151-200: give 2 units 201-250: give 3 units 251-300: give 4 units 301-350: Give 5 units 351-400: give 6 units More than 400: give 6 units, call Insulin Detemir (Levemir) 100 UNIT/ML VIAL 3 Units Inject into fatty tissue DAILY Qty = 30 No Refills Instructions: please follow up with Dr. Hilton in 1 week Carvedilol (Coreg) 3.125 MG TABLET 6.25 Milligram ORAL TWICE DAILY Qty = 30 No Refills Instructions: Please discontinue if blood pressure less than systolic 90 Copies To: CASSIDY RUBIN MD; WAYNE HUGO MD; IZAIAH HILTON MD Attending MD Review Statement Documenting Attending: HARRY LUCERO M.D Other Findings: I have reviewed the discharge summary. No Refills Instructions: Please discontinue if blood pressure less than systolic 90 Warfarin Sodium (Coumadin) 1 MG TABLET 1 Milligram ORAL Every other day Qty = 30 No Refills Instructions: Please check INR before starting this. Target INR between 2 to 3. Comments: Last Taken:NOT GIVEN THIS ADMISSION Time: Copies To: CASSIDY RUBIN MD; WAYNE HUGO MD; IZAIAH HILTON MD
--- NOTE | 2016-09-20 17:21 | Cons- Cardiology ---
General Information and HPI Consulting Request Date of Consult: 09/20/16 Requested By: ROSALVA HEATH,MARK Cordova Reason for Consult: Sinus tachycardia Source of Information: patient, old records History of Present Illness: This is a 75-year-old male with a past medical history that includes end-stage renal disease on dialysis, history of antiphospholipid antibody syndrome maintained on anticoagulation, peripheral vascular disease with chronic lower show any ulcers, hypertension, anemia, and history of demand ischemia presented to [facility] from his rehabilitation facility with reported decreased mental status and hypoglycemia. Here in the hospital he was noticed to have some low-level tachycardia and I was consulted for further evaluation. I had seen the patient on his last hospitalization for demand ischemia. At that time he was on twice a day carvedilol but it appears it was discontinued at some point as it was not on his last discharge summary. On my interview with the patient he denies any chest pain, dyspnea, or palpitations. He continues to experience pain in his legs from his lower extremities ulcerations. I saw him while was undergoing dialysis this evening. Allergies/Medications Allergies: Coded Allergies: Sulfa (Sulfonamide Antibiotics) (Mild, HIVES 06/15/16) Home Med List: Aspirin (Ecotrin*) 81 MG TABLET.DR 1 TAB PO DAILY hEART hEALTH Atorvastatin Calcium 40 MG TABLET 1 TAB PO DAILY HIGH LIPIDS B Complex & C No.20/Folic Acid (Nephrocaps Softgel) 1 MG CAPSULE 1 CAP PO DAILY SUPPLEMENT Calcium Carbonate/Vitamin D3 (Os-Vishal 500+D3 Caplet) 500 MG-600 TABLET 1 TAB PO TID SUPPLEMENT (Reported) Cyanocobalamin (Vitamin B-12) (Vitamin B-12) 500 MCG TABLET 2 TAB PO DAILY ANEMIA (Reported) Ferrous Sulfate 325 MG (65 MG IRON) TABLET 1 TAB PO TID SUPPLEMENT (Reported) Guaifenesin (Mucinex) 600 MG TAB.ER.12H 1 TAB PO BID cONGESTION Insulin Aspart (Novolog) 100 UNIT/ML VIAL 0 UNITS SC SEE ADMIN CRITERIA BEFORE MEALS Blood Insulin Sugar Units <80 0 80-99 0 100-150 4 151-200 5 201-250 6 251-300 7 301-350 8 351-400 9 >400 Call MD AT BEDTIME Blood Insulin Sugar Units <80 0 81-100 0 101-200 0 201-250 0 251-300 2 301-350 3 351-400 4 >400 Call Doctor, 5 units Insulin Detemir (Levemir) 100 UNIT/ML VIAL 5 UNITS SC DAILY diabetes Nephro-Vitamins (Nephro-Arthur Tablet) 0.8 MG TABLET 1 TAB PO DAILY kidney Omeprazole 20 MG CAPSULE.DR 1 CAP PO DAILY GI (Reported) Oxycodone HCl/Acetaminophen (Percocet 5-325 MG Tablet) 5 MG-325 MG TABLET 2 TAB PO Q8P PRN PAIN SCALE 4-6 (MODERATE) Prednisone 5 MG TABLET 1 TAB PO DAILY Adrenals arenal insufficinecy Sevelamer Carbonate (Renvela) 800 MG TABLET 1 TAB PO TIDWM KIDNEYS (Reported) RESTART WHEN PHOS LEVEL >3.5 Sodium Chloride (Saline Nasal [place]) 0.65 % SPRAY 1 SPRAY NASB 4 TIMES/DAY PRN dRY NOSE Warfarin Sodium (Coumadin) 2.5 MG TABLET 1 TAB PO EOD apla (Reported) Current Medications: Current Medications Sig/Kailash Start time Last Medication Dose Route Stop Time Status Admin Acetaminophen 650 MG ONCE ONE 09/19 181 DC 09/19 PO 09/19 181 1820 Acetaminophen 0 .STK-MED ONE 09/19 1806 DC PO Aspirin Buffered 81 MG DAILY 09/20 1000 AC 09/20 PO 0903 Atorvastatin Calcium 40 MG 1700 09/20 1700 AC PO Atorvastatin Calcium 40 MG DAILY 09/19 1833 DC 09/19 PO 2042 Cyanocobalamin 1,000 MCG DAILY 09/20 1000 AC 09/20 PO 0904 Dextrose/Water 1,000 ML Q6H 09/19 1145 DC 09/19 IV 1156 Ferrous Sulfate 325 MG TID 09/19 1834 AC 09/20 PO 0903 Heparin Sodium 5,000 UNIT Q8 09/19 2200 CAN (Porcine) SC Insulin Aspart 0 SEE ADMIN CRITERIA 09/19 1845 DC SC Insulin Aspart 0 TIDAC 09/19 1700 AC 09/20 SC 1248 Insulin Detemir 5 UNITS DAILY 09/20 1000 AC 09/20 SC 0904 Multivitamins 1 TAB DAILY 09/20 1000 CAN PO Multivitamins 1 TAB DAILY 09/20 1000 AC 09/20 PO 0903 Omeprazole 20 MG DAILY AC 09/20 0700 AC 09/20 PO 0626 Oxycodone/ 2 TAB Q6-PRN PRN 09/20 1615 AC Acetaminophen PO Oxycodone/ 2 TAB Q8 PRN 09/20 1400 DC 09/20 Acetaminophen PO 1605 Oxycodone/ 2 TAB Q12P PRN 09/20 0915 DC Acetaminophen PO Oxycodone/ 2 TAB ONCE ONE 09/20 0900 DC 09/20 Acetaminophen PO 09/20 0901 0902 Prednisone 5 MG DAILY 09/20 1000 AC 09/20 PO 0904 Review of Systems Review of Systems: As per above HPI. The remainder of the ROS was negative. Past History Travel History Traveled to [place] past 21 day No Medical History Neurological: NONE EENT: NONE Cardiovascular: PVD, DVT Respiratory: pneumonia Gastrointestinal: Crohn's disease Hepatic: NONE Renal: nephrolithiasis, CKD Musculoskeletal: VASCULAR OCCLUSION RIGHT LEG RIGHT PATELLA FRACTURE WITH orif NON HEALING WOUNDS R. TOE AMPUTATIONS Psychiatric: NONE Endocrine: diabetes Blood Disorders: anemia, coagulopathy, DVT (RUE and RLE), antiphosphlipid syndrome Cancer(s): NONE HUMANITIES COORDINATOR/Reproductive: NONE Surgical History Surgical History: colon resection, knee replacement (left), LEFT HIP ORIF status post right leg bypass status post right patellar ORIF status post right TMA status post lithotripsy and stent placements Family History Relations & Conditions If Any: FATHER Antiphospholipid syndrome FH: diabetes mellitus MOTHER FH: Crohn's disease Psychosocial History Who Do You Live With? spouse Services at Home: None Primary Language: French Smoking Status: Former Smoker Functional Ability ADLs Independent: dressing, eating, toileting, bathing. Ambulation: walker IADLs Needs Assist: shopping, housework, finances, food prep, telephone, transportation, medication admin. ECHO Results (as available) Report: Normal left ventricular systolic function with mild mitral regurgitation. Exam & Diagnostic Data Vital Signs and I&O Vital Signs Date Time Temp Pulse Resp B/P Pulse O2 O2 Flow FiO2 Ox Delivery Rate 09/20 1907 98.1 118 18 128/88 96 Room Air 09/20 0833 98.5 113 18 135/87 91 Room Air 09/20 0000 96 09/19 2331 98.0 83 18 100/72 95 Room Air Intake & Output 09/20 1600 09/20 0800 09/20 0000 09/19 1600 09/19 0809/19 0000 Intake Total 660 480 150 Output Total 0 Balance 660 480 150 Intake, IV 150 Intake, Oral 660 480 Number 1 Bowel Movements Output, Urine 0 Patient 140 lb Weight Physical Exam: General: no apparent distress. Alert. Eyes: No obvious scleral icterus. HEENT: No jugular venous distention or abnormal jugular venous pulsations. Cardiovascular: Normal intensity S1/S2. PMI not grossly displaced. Respiratory: No rales or rhonchi Abdomen: Soft, nontender with no guarding or rebound tenderness. Musculoskeletal: No cyanosis noted, lower extremity ulcerations noted Skin: Lesions noted Labs/Avtar Results: Laboratory Tests 09/20 09/20 09/20 1840 1510 0600 Chemistry Sodium (137 - 145 mmol/L) 132 L Cancelled Potassium (3.5 - 5.1 mmol/L) 5.4 H Cancelled Chloride (98 - 107 mmol/L) 102 Cancelled Carbon Dioxide (22 - 30 mmol/L) 21 L Cancelled Anion Gap (5 - 16) 9 Cancelled BUN (9 - 20 mg/dL) 25 H Cancelled Creatinine (0.7 - 1.2 mg/dL) 3.6 H Cancelled Estimated GFR (>60 ml/min) 17 L BUN/Creatinine Ratio (7 - 25 %) 6.9 L Cancelled Calcium (8.4 - 10.2 mg/dL) 7.1 L Phosphorus (2.5 - 4.5 mg/dL) 3.8 Magnesium (1.6 - 2.3 mg/dL) 1.2 L Albumin (3.5 - 5.0 g/dL) 1.8 L Coagulation PT (9.4 - 12.5 SEC) 61.1 *H Cancelled INR (0.90 - 1.17) 5.92 *H Cancelled Hematology CBC w Diff NO MAN DIFF REQ Cancelled WBC (4.8 - 10.8 /CUMM) 7.1 Cancelled RBC (4.70 - 6.10 /CUMM) 3.24 L Cancelled Hgb (14.0 - 18.0 G/DL) 9.0 L Cancelled Hct (42 - 52 %) 29.5 L Cancelled MCV (80.0 - 94.0 FL) 91.2 Cancelled MCH (27.0 - 31.0 PG) 27.8 Cancelled RDW (11.5 - 14.5 %) 20.9 H Cancelled Plt Count (130 - 400 /CUMM) 274 Cancelled MPV (7.4 - 10.4 FL) 8.4 Cancelled Gran % (42.2 - 75.2 %) 83.3 H Lymphocytes % (20.5 - 51.1 %) 7.6 L Monocytes % (1.7 - 9.3 %) 8.0 Eosinophils % (0 - 5 %) 0.7 Basophils % (0.0 - 2.0 %) 0.4 Absolute Granulocytes (1.4 - 6.5 /CUMM) 5.9 Absolute Lymphocytes (1.2 - 3.4 /CUMM) 0.5 L Absolute Monocytes (0.10 - 0.60 /CUMM) 0.6 Absolute Eosinophils (0.0 - 0.7 /CUMM) 0 Absolute Basophils (0.0 - 0.2 /CUMM) 0 PUBS MCHC (33.0 - 37.0 G/DL) 30.5 L Cancelled 09/19 09/19 09/19 2212 2124 1649 Chemistry Troponin I (<0.11 ng/ml) < 0.01 Coagulation PT Cancelled INR Cancelled Urines Urine Color (YEL,AMB,STR) STRAW Urine Clarity (CLEAR) TURBD H Urine pH (5.0 - 8.0) 7.0 Ur Specific [place] (1.001 - 1.035) 1.025 Urine Protein (NEG,<30 MG/DL) >=300 H Urine Ketones (NEG) NEG Urine Nitrite (NEG) NEG Urine Bilirubin (NEG) NEG Urine Urobilinogen (0.1 - 1.0 EU/dl) 0.2 Ur Leukocyte Esterase (NEG) LARGE H Ur Microscopic SEDIMENT EXAMINED Urine RBC (0 - 5 /HPF) 1-3 Urine WBC (0 - 2 /HPF) > 75 H Urine Hemoglobin (NEG) LARGE H Urine Glucose (N MG/DL) NEG 09/19 1142 Chemistry Sodium (137 - 145 mmol/L) 138 Potassium (3.5 - 5.1 mmol/L) 4.3 Chloride (98 - 107 mmol/L) 106 Carbon Dioxide (22 - 30 mmol/L) 24 Anion Gap (5 - 16) 8 BUN (9 - 20 mg/dL) 20 Creatinine (0.7 - 1.2 mg/dL) 3.0 H Estimated GFR (>60 ml/min) 21 L BUN/Creatinine Ratio (7 - 25 %) 6.7 L Glucose (65 - 99 mg/dL) 93 Calcium (8.4 - 10.2 mg/dL) 7.8 L Total Bilirubin (0.2 - 1.3 mg/dL) 0.5 AST (17 - 59 U/L) 23 ALT (21 - 72 U/L) 25 Alkaline Phosphatase (< 127 U/L) 84 Troponin I (<0.11 ng/ml) 0.01 Total Protein (6.3 - 8.2 g/dL) 4.9 L Albumin (3.5 - 5.0 g/dL) 2.0 L Globulin (1.9 - 4.2 gm/dL) 2.9 Albumin/Globulin Ratio (1.1 - 2.2 %) 0.7 L Coagulation PT (9.4 - 12.5 SEC) 55.5 *H INR (0.90 - 1.17) 5.37 *H APTT (25 - 37 SEC) 54 H Hematology CBC w Diff NO MAN DIFF REQ WBC (4.8 - 10.8 /CUMM) 10.3 RBC (4.70 - 6.10 /CUMM) 3.87 L Hgb (14.0 - 18.0 G/DL) 11.1 L Hct (42 - 52 %) 35.0 L MCV (80.0 - 94.0 FL) 90.4 MCH (27.0 - 31.0 PG) 28.7 RDW (11.5 - 14.5 %) 20.5 H Plt Count (130 - 400 /CUMM) 224 MPV (7.4 - 10.4 FL) 8.4 Gran % (42.2 - 75.2 %) 80.9 H Lymphocytes % (20.5 - 51.1 %) 7.1 L Monocytes % (1.7 - 9.3 %) 9.3 Eosinophils % (0 - 5 %) 2.3 Basophils % (0.0 - 2.0 %) 0.4 Absolute Granulocytes (1.4 - 6.5 /CUMM) 8.3 H Absolute Lymphocytes (1.2 - 3.4 /CUMM) 0.7 L Absolute Monocytes (0.10 - 0.60 /CUMM) 1.0 H Absolute Eosinophils (0.0 - 0.7 /CUMM) 0.2 Absolute Basophils (0.0 - 0.2 /CUMM) 0 PUBS MCHC (33.0 - 37.0 G/DL) 31.8 L Diagnostic Data EKG Results Tracing personally reviewed, shows ST at 117 bpm with RBB and 1st degree AVB CXR Results IMPRESSION: No acute cardiopulmonary abnormality compared to 09/02/2016. Other Results Head CT IMPRESSION: No acute intracranial pathology. Chronic small vessel ischemic disease and volume loss. Assessment/Plan Assessment/Plan 1. Sinus tachycardia 2. Hypoglycemia 3. Hx of Subglottic edema 4. History of antiphospholipid antibody syndrome maintained on anticoagulation 5. Lower extremity ulcer with peripheral vascular disease 6. End-stage renal disease on dialysis 7. History of hypertension 8. History of upper extremity thrombosis 9. Anemia 10. Hx of Demand ischemia 11. Pulmonary hypertension by Echo 12. RBBB Low level sinus tachycardia, asymptomatic. Likely due to medical issues including LE pain and holding B-randy. Would restart low dose CoReg and titrate up to previous dose as BP tolerates. Follow-up in our office within 1-2 weeks of discharge. Please reconsult with any additional questions or concerns prior to discharge. No evidence of ACS or CHF at this time. Agree with plan for continued full AC. INR elevated, adjust Coumadin dose to target INR. Dialysis per Renal. Additional management per the medical team. Eligio Childers MD [facility] Consult Acknowledgment - Thank you for your consult request.
[2016-09-20 19:07] VITALS: BP 128/88
[2016-09-20 20:15] LABS: PT 61.1 SEC (9.4-12.5)
[2016-09-20 23:26] VITALS: BP 144/80
[2016-09-21 07:51] VITALS: BP 128/60
--- NOTE | 2016-09-21 09:23 | PN- Housestaff ---
CYNTHIA MADISON 09/21/16 0922: Subjective Follow-up For: hypoglycemia tachycardia Tele-Events Since Last Visit: Sinus rhythm, heart rate 99-123 Subjective: Seen and examined patient, complains of bilateral leg pain. Denies chest pain palpitations, dizziness shortness of breath. Review of Systems Constitutional: Denies: chills, diaphoresis, fever, malaise, weakness, unexplained weight loss. Cardiovascular: Denies: chest pain, edema, orthopena, palpitations, peripheral edema, syncope. Respiratory: Denies: cough, hemoptysis, orthopnea, short of breath, sputum production, stridor, wheezing. Objective Last 24 Hrs of Vital Signs/I&O Vital Signs Date Time Temp Pulse Resp B/P Pulse O2 O2 Flow FiO2 Ox Delivery Rate 09/21 08 Room Air 09/21 0751 97.8 104 16 128/60 97 Room Air 09/20 2326 98.5 116 20 144/80 96 Room Air 09/20 1907 98.1 118 18 128/88 96 Room Air Intake & Output 09/21 1600 09/21 0800 09/21 0000 Intake Total 130 250 Output Total Balance 130 250 Intake, IV 10 10 Intake, Oral 120 240 Number 6 3 Bowel Movements Patient 140 lb Weight Physical Exam General Appearance: Alert, Oriented X3, Cooperative, No Acute Distress Cardiovascular: Normal S1, Normal S2, tachycardic Lungs: Normal Air Movement Extremities: bilateral ulcers lower extremities, clean dressings noted, left metatarsal amputation, necrotic changes of seen on skin of left foot Current Medications: Current Medications Sig/Kailash Start time Last Medication Dose Route Stop Time Status Admin Aspirin Buffered 81 MG DAILY 09/20 1000 AC 09/21 PO 1021 Atorvastatin Calcium 40 MG 1700 09/20 1700 AC 09/20 PO 2146 Cyanocobalamin 1,000 MCG DAILY 09/20 1000 AC 09/21 PO 1021 Diphenoxylate HCl/ 2.5 MG TIDPRN PRN 09/21 0315 AC 09/21 Atropine PO 0457 Epoetin Ludwig 3,000 UNIT TUES THURS SAT PRN 09/21 1345 AC IV Epoetin Ludwig 2,000 UNIT TUES THURS SAT PRN 09/21 1345 AC IV Ferrous Sulfate 325 MG TID 09/19 1834 AC 09/21 PO 1020 Insulin Aspart 0 TIDAC 09/19 1700 AC 09/20 SC 1248 Insulin Detemir 5 UNITS DAILY 09/20 1000 AC 09/21 SC 1021 Multivitamins 1 TAB DAILY 09/20 1000 AC 09/21 PO 1021 Omeprazole 20 MG DAILY AC 09/20 0700 AC 09/21 PO 0457 Oxycodone/ 1 TAB ONCE ONE 09/21 1430 DC 09/21 Acetaminophen PO 09/21 1431 1432 Oxycodone/ 2 TAB Q6-PRN PRN 09/20 1615 AC 09/21 Acetaminophen PO 1100 Oxycodone/ 2 TAB Q8 PRN 09/20 1400 DC 09/20 Acetaminophen PO 1605 Prednisone 5 MG DAILY 09/20 1000 AC 09/21 PO 1021 Last 24 Hrs of Lab/Avtar Results Last 24 Hrs of Labs/Mics: Laboratory Tests 09/21/16 1235: Anion Gap 10, Estimated GFR 27 L, BUN/Creatinine Ratio 5.8 L, Glucose 73, Calcium 7.8 L, CBC w Diff NO MAN DIFF REQ, RBC 3.57 L, MCV 92.1, MCH 28.0, RDW 21.1 H, MPV 8.6, Gran % 74.3, Lymphocytes % 13.4 L, Monocytes % 8.4, Eosinophils % 3.5, Basophils % 0.4, Absolute Granulocytes 5.9, Absolute Lymphocytes 1.1 L, Absolute Monocytes 0.7 H, Absolute Eosinophils 0.3, Absolute Basophils 0, PUBS MCHC 30.4 L 09/20/16 1840: PT 61.1 *H, INR 5.92 *H Assessment/Plan Assessment: 75-year-old gentleman PMH of ESRD on HD, PVD with chronic bilateral LE ulcers, history of pseudomonal cellulitis, femoropopliteal bypass surgery antiphospholipid syndrome, DVT on coumadin, chronic anemia, Crohn's disease status post bowel resection and chronic prednisone therapy, with resulting adrenal insufficiency, subglottic edema and acute respiratory failure which required ICU admission in May 2016, kidney stones status post lithotripsy, IDDM, admitted with altered mental state, confusion secondary to brief episode of metabolic encephalopathy from hypoglycemia. # Lethargy due to hypoglycemia (resolved) # Tachycardia on unknown etiology (asymptomatic) # Chronic lower extremity wounds # ESRD on dialysis Tue, [place], Fri # Supratherapeutic INR # Diabetes * Endo on board, apprec recomendations * Continue Levemir 5 units once a day. * Sliding scale adjusted per Endo recs # Tachycardia of unknown etiology. - 2Xtroponin negative. - Previous echo -cardio on board consulted # Chronic lower extremity wounds - He has chronic necrotic and weeping ulcers on both legs. * Daily dressing change. * Pain control with 2 tabs percocet Q8P # ESRD on dialysis Friday -will get dialzyed today # Supratherapeutic INR * Will f/up INR today (he might need a smaller dose of coumadin as his INR was supratherapeutic on 2.5 mg every other day) Diet: Renal dialysis diet DVT ppx: supratherapeutic INR FULL CODE Problem List: 1. NEPHROLITHIASIS 2. Supratherapeutic INR 3. Diabetes mellitus 4. CKD (chronic kidney disease) Pain Ratin Pain Location: lower legs Pain Goal: Pain 4 or less Pain Plan: will give extra one time of percocet and continue current regimen Tomorrow's Labs & Rationales: bep/mg/inr Consulting Request: Consulting Specialty: Endocrinology HARRY MORRIS MD 09/21/16 1258: Attending MD Review Statement Attending Statement Attending MD Statement: examined this patient, discuss w/resident/PA/FRAME STRIPPER, agreed w/resident/PA/FRAME STRIPPER, reviewed EMR data (avail), discussed with nursing, amended to note Attending Assessment/Plan: Patient seen and examined. Resting comfortably not in acute distress. He does admit to lower extremity pain. He states that it is controlled with Percocet. He continues to have sinus tachycardia in the low 100s as has 120s occasionally. Cardiology recommendations appreciated. For now we'll hold off adding beta randy therapy due to his propensity for hypotension. His tachycardia appears to be improving and we'll continue monitoring for another 24 hours on the telemetry service. His heart rate is in the low 100s he may be safely discharged [facility] facility. If persistently greater than 120 consider addition of low dose metoprolol 12.5 mg orally twice daily
--- NOTE | 2016-09-21 10:17 | PN- Diabetes ---
Assessment/Plan Assessment: This patient has type 2 diabetes mellitus and end-stage renal disease. He came into the hospital with hypoglycemia. The patient feels improved. His blood sugar get did get to 63 at 7 PM last night. His NovoLog coverage was adjusted yesterday. Plan: Suggest adjust the NovoLog sliding scale as written in my consultation note yesterday. Continue Levemir 5 units once a day. Improved nutrition and use dietary supplements if needed. Subjective Subjective: Feels discouraged Review of Systems Constitutional: Denies: chills, fever. Cardiovascular: Denies: chest pain. Respiratory: Denies: short of breath. Gastrointestinal: Denies: nausea. Skin: Reports: lesions (painful on legs). Objective Last 24 Hrs of Vital Signs/I&O Vital Signs Date Time Temp Pulse Resp B/P Pulse O2 O2 Flow FiO2 Ox Delivery Rate 09/21 0751 97.8 104 16 128/60 97 Room Air 09/20 2325 98.5 116 20 144/80 96 Room Air 09/20 190 98.1 118 18 128/88 96 Room Air Intake & Output 09/21 1600 09/21 0800 09/21 0000 Intake Total 130 250 Output Total Balance 130 250 Intake, IV 10 10 Intake, Oral 120 240 Number 6 3 Bowel Movements Patient 140 lb Weight Vital Signs Date Time Temp Pulse Resp B/P Pulse O2 O2 Flow FiO2 Ox Delivery Rate 09/21 0751 97.8 104 16 128/60 97 Room Air 09/20 2325 98.5 116 20 144/80 96 Room Air 09/20 1907 98.1 118 18 128/88 96 Room Air Intake & Output 09/21 0800 09/21 0000 Intake Total 130 250 Output Total Balance 130 250 Intake, IV 10 10 Intake, Oral 120 240 Number 6 3 Bowel Movements Patient 140 lb Weight Physical Exam General Appearance: alert, awake, comfortable Head: normal appearance Neck: normal inspection Respiratory: normal breath sounds Cardiovascular: regular rate/rhythm Extremities: normal inspection (legs bandaged) Current Medications: Current Medications Sig/Kailash Start time Last Medication Dose Route Stop Time Status Admin Aspirin Buffered 81 MG DAILY 09/20 1000 AC 09/21 PO 1021 Atorvastatin Calcium 40 MG 1700 09/20 1700 AC 09/20 PO 2146 Cyanocobalamin 1,000 MCG DAILY 09/20 1000 AC 09/21 PO 1021 Diphenoxylate HCl/ 2.5 MG TIDPRN PRN 09/21 0315 AC 09/21 Atropine PO 0457 Ferrous Sulfate 325 MG TID 09/19 1834 AC 09/21 PO 1020 Insulin Aspart 0 TIDAC 09/19 1700 AC 09/20 SC 1248 Insulin Detemir 5 UNITS DAILY 09/20 1000 AC 09/21 SC 1021 Multivitamins 1 TAB DAILY 09/20 1000 AC 09/21 PO 1021 Omeprazole 20 MG DAILY AC 09/20 0700 AC 09/21 PO 0457 Oxycodone/ 2 TAB Q6-PRN PRN 09/20 1615 AC 09/21 Acetaminophen PO 0457 Oxycodone/ 2 TAB Q8 PRN 09/20 1400 DC 09/20 Acetaminophen PO 1605 Prednisone 5 MG DAILY 09/20 1000 AC 09/21 PO 1021 Findings Pertinent Lab/Avtar Results: Laboratory Tests 09/20 09/20 1840 1510 Chemistry Sodium (137 - 145 mmol/L) 132 L Potassium (3.5 - 5.1 mmol/L) 5.4 H Chloride (98 - 107 mmol/L) 102 Carbon Dioxide (22 - 30 mmol/L) 21 L Anion Gap (5 - 16) 9 BUN (9 - 20 mg/dL) 25 H Creatinine (0.7 - 1.2 mg/dL) 3.6 H Estimated GFR (>60 ml/min) 17 L BUN/Creatinine Ratio (7 - 25 %) 6.9 L Calcium (8.4 - 10.2 mg/dL) 7.1 L Phosphorus (2.5 - 4.5 mg/dL) 3.8 Magnesium (1.6 - 2.3 mg/dL) 1.2 L Albumin (3.5 - 5.0 g/dL) 1.8 L Coagulation PT (9.4 - 12.5 SEC) 61.1 *H INR (0.90 - 1.17) 5.92 *H Hematology CBC w Diff NO MAN DIFF REQ WBC (4.8 - 10.8 /CUMM) 7.1 RBC (4.70 - 6.10 /CUMM) 3.24 L Hgb (14.0 - 18.0 G/DL) 9.0 L Hct (42 - 52 %) 29.5 L MCV (80.0 - 94.0 FL) 91.2 MCH (27.0 - 31.0 PG) 27.8 RDW (11.5 - 14.5 %) 20.9 H Plt Count (130 - 400 /CUMM) 274 MPV (7.4 - 10.4 FL) 8.4 Gran % (42.2 - 75.2 %) 83.3 H Lymphocytes % (20.5 - 51.1 %) 7.6 L Monocytes % (1.7 - 9.3 %) 8.0 Eosinophils % (0 - 5 %) 0.7 Basophils % (0.0 - 2.0 %) 0.4 Absolute Granulocytes (1.4 - 6.5 /CUMM) 5.9 Absolute Lymphocytes (1.2 - 3.4 /CUMM) 0.5 L Absolute Monocytes (0.10 - 0.60 /CUMM) 0.6 Absolute Eosinophils (0.0 - 0.7 /CUMM) 0 Absolute Basophils (0.0 - 0.2 /CUMM) 0 PUBS MCHC (33.0 - 37.0 G/DL) 30.5 L
--- NOTE | 2016-09-21 12:58 | PN- Nephrology ---
Assessment/Plan Assessment: ESRD: Routine dialysis today as per Friday schedule. Patient tolerating well Hypoglycemic episode: Insulin management per primary service Suggestion: HD today as above Subjective Subjective: No acute events seen on HD blood glucose improved Review of Systems: denies pain no fever/chills. Objective Vital Signs and I&Os Vital Signs Date Time Temp Pulse Resp B/P Pulse O2 O2 Flow FiO2 Ox Delivery Rate 09/21 0800 Room Air 09/21 0751 97.8 104 16 128/60 97 Room Air 09/20 2326 98.5 116 20 144/80 96 Room Air 09/20 1907 98.1 118 18 128/88 96 Room Air Intake & Output 09/21 1600 09/21 0400 09/20 1600 09/20 0400 09/19 1600 09/19 040 Intake Total 832 484 7196 150 Output Total 0 Balance 548 456 8879 150 Intake, IV 10 10 150 Intake, Oral 752 327 6962 Number 6 3 1 Bowel Movements Output, Urine 0 Patient 140 lb 140 lb Weight Physical Exam: General: NAD, A+O x3. HEENT: NC/AT. No icterus. Moist mucosa Neck: negative for LATOYA, JVD CV: RRR, no m/r/g Pulm: CTAB, no rales Abd: soft, NT/ND, negative renal bruits Lower Ext: neg edema or chronic venous changes Skin: bruises bandaged : no laboy catheter Current Medications: Current Medications Sig/Kailash Start time Last Medication Dose Route Stop Time Status Admin Aspirin Buffered 81 MG DAILY 09/20 1000 AC 09/21 PO 1021 Atorvastatin Calcium 40 MG 1700 09/20 1700 AC 09/20 PO 2146 Cyanocobalamin 1,000 MCG DAILY 09/20 1000 AC 09/21 PO 1021 Diphenoxylate HCl/ 2.5 MG TIDPRN PRN 09/21 0315 09/21 Atropine PO 0457 Ferrous Sulfate 325 MG TID 09/19 1834 AC 09/21 PO 1020 Insulin Aspart 0 TIDAC 09/19 1700 AC 09/20 SC 1248 Insulin Detemir 5 UNITS DAILY 09/20 1000 AC 09/21 SC 1021 Multivitamins 1 TAB DAILY 09/20 1000 AC 09/21 PO 1021 Omeprazole 20 MG DAILY AC 09/20 0700 AC 09/21 PO 0457 Oxycodone/ 2 TAB Q6-PRN PRN 09/20 1615 AC 09/21 Acetaminophen PO 1100 Oxycodone/ 2 TAB Q8 PRN 09/20 1400 DC 09/20 Acetaminophen PO 1605 Prednisone 5 MG DAILY 09/20 1000 AC 09/21 PO 1021 Results Pertinent Lab Results: Laboratory Tests 09/20 09/20 09/20 1840 1510 0600 Chemistry Sodium (137 - 145 mmol/L) 132 L Cancelled Potassium (3.5 - 5.1 mmol/L) 5.4 H Cancelled Chloride (98 - 107 mmol/L) 102 Cancelled Carbon Dioxide (22 - 30 mmol/L) 21 L Cancelled Anion Gap (5 - 16) 9 Cancelled BUN (9 - 20 mg/dL) 25 H Cancelled Creatinine (0.7 - 1.2 mg/dL) 3.6 H Cancelled Estimated GFR (>60 ml/min) 17 L BUN/Creatinine Ratio (7 - 25 %) 6.9 L Cancelled Calcium (8.4 - 10.2 mg/dL) 7.1 L Phosphorus (2.5 - 4.5 mg/dL) 3.8 Magnesium (1.6 - 2.3 mg/dL) 1.2 L Albumin (3.5 - 5.0 g/dL) 1.8 L Coagulation PT (9.4 - 12.5 SEC) 61.1 *H Cancelled INR (0.90 - 1.17) 5.92 *H Cancelled Hematology CBC w Diff NO MAN DIFF REQ Cancelled WBC (4.8 - 10.8 /CUMM) 7.1 Cancelled RBC (4.70 - 6.10 /CUMM) 3.24 L Cancelled Hgb (14.0 - 18.0 G/DL) 9.0 L Cancelled Hct (42 - 52 %) 29.5 L Cancelled MCV (80.0 - 94.0 FL) 91.2 Cancelled MCH (27.0 - 31.0 PG) 27.8 Cancelled RDW (11.5 - 14.5 %) 20.9 H Cancelled Plt Count (130 - 400 /CUMM) 274 Cancelled MPV (7.4 - 10.4 FL) 8.4 Cancelled Gran % (42.2 - 75.2 %) 83.3 H Lymphocytes % (20.5 - 51.1 %) 7.6 L Monocytes % (1.7 - 9.3 %) 8.0 Eosinophils % (0 - 5 %) 0.7 Basophils % (0.0 - 2.0 %) 0.4 Absolute Granulocytes (1.4 - 6.5 /CUMM) 5.9 Absolute Lymphocytes (1.2 - 3.4 /CUMM) 0.5 L Absolute Monocytes (0.10 - 0.60 /CUMM) 0.6 Absolute Eosinophils (0.0 - 0.7 /CUMM) 0 Absolute Basophils (0.0 - 0.2 /CUMM) 0 PUBS MCHC (33.0 - 37.0 G/DL) 30.5 L Cancelled 09/19 09/19 09/19 2212 2124 1649 Chemistry Troponin I (<0.11 ng/ml) < 0.01 Coagulation PT Cancelled INR Cancelled Urines Urine Color (YEL,AMB,STR) STRAW Urine Clarity (CLEAR) TURBD H Urine pH (5.0 - 8.0) 7.0 Ur Specific [place] (1.001 - 1.035) 1.025 Urine Protein (NEG,<30 MG/DL) >=300 H Urine Ketones (NEG) NEG Urine Nitrite (NEG) NEG Urine Bilirubin (NEG) NEG Urine Urobilinogen (0.1 - 1.0 EU/dl) 0.2 Ur Leukocyte Esterase (NEG) LARGE H Ur Microscopic SEDIMENT EXAMINED Urine RBC (0 - 5 /HPF) 1-3 Urine WBC (0 - 2 /HPF) > 75 H Urine Hemoglobin (NEG) LARGE H Urine Glucose (N MG/DL) NEG 09/19 1142 Chemistry Sodium (137 - 145 mmol/L) 138 Potassium (3.5 - 5.1 mmol/L) 4.3 Chloride (98 - 107 mmol/L) 106 Carbon Dioxide (22 - 30 mmol/L) 24 Anion Gap (5 - 16) 8 BUN (9 - 20 mg/dL) 20 Creatinine (0.7 - 1.2 mg/dL) 3.0 H Estimated GFR (>60 ml/min) 21 L BUN/Creatinine Ratio (7 - 25 %) 6.7 L Glucose (65 - 99 mg/dL) 93 Calcium (8.4 - 10.2 mg/dL) 7.8 L Total Bilirubin (0.2 - 1.3 mg/dL) 0.5 AST (17 - 59 U/L) 23 ALT (21 - 72 U/L) 25 Alkaline Phosphatase (< 127 U/L) 84 Troponin I (<0.11 ng/ml) 0.01 Total Protein (6.3 - 8.2 g/dL) 4.9 L Albumin (3.5 - 5.0 g/dL) 2.0 L Globulin (1.9 - 4.2 gm/dL) 2.9 Albumin/Globulin Ratio (1.1 - 2.2 %) 0.7 L Coagulation PT (9.4 - 12.5 SEC) 55.5 *H INR (0.90 - 1.17) 5.37 *H APTT (25 - 37 SEC) 54 H Hematology CBC w Diff NO MAN DIFF REQ WBC (4.8 - 10.8 /CUMM) 10.3 RBC (4.70 - 6.10 /CUMM) 3.87 L Hgb (14.0 - 18.0 G/DL) 11.1 L Hct (42 - 52 %) 35.0 L MCV (80.0 - 94.0 FL) 90.4 MCH (27.0 - 31.0 PG) 28.7 RDW (11.5 - 14.5 %) 20.5 H Plt Count (130 - 400 /CUMM) 224 MPV (7.4 - 10.4 FL) 8.4 Gran % (42.2 - 75.2 %) 80.9 H Lymphocytes % (20.5 - 51.1 %) 7.1 L Monocytes % (1.7 - 9.3 %) 9.3 Eosinophils % (0 - 5 %) 2.3 Basophils % (0.0 - 2.0 %) 0.4 Absolute Granulocytes (1.4 - 6.5 /CUMM) 8.3 H Absolute Lymphocytes (1.2 - 3.4 /CUMM) 0.7 L Absolute Monocytes (0.10 - 0.60 /CUMM) 1.0 H Absolute Eosinophils (0.0 - 0.7 /CUMM) 0.2 Absolute Basophils (0.0 - 0.2 /CUMM) 0 PUBS MCHC (33.0 - 37.0 G/DL) 31.8 L
[2016-09-21 14:36] LABS: ABSOLUTE BASOPHIL COUNT 0 /CUMM (0.0-0.2); ABSOLUTE EOSINOPHIL COUNT 0.3 /CUMM (0.0-0.7); ABSOLUTE GRANULOCYTE CT 5.9 /CUMM (1.4-6.5); ABSOLUTE LYMPH COUNT 1.1 /CUMM (1.2-3.4); ABSOLUTE MONOCYTE COUNT 0.7 /CUMM (0.10-0.60); BASOPHIL % 0.4 % (0.0-2.0); EOSINOPHIL % 3.5 % (0-5); GRANULOCYTE % 74.3 % (42.2-75.2); HEMATOCRIT 32.9 % (42-52); MEAN CORPUSCULAR HGB CONC 30.4 G/DL (33.0-37.0); MEAN CORPUSCULAR VOLUME 92.1 FL (80.0-94.0); MEAN PLATELET VOLUME 8.6 FL (7.4-10.4); PLATELET COUNT 288 /CUMM (130-400); RBC DISTRIBUTION WIDTH 21.1 % (11.5-14.5); RED BLOOD CELL CT 3.57 /CUMM (4.70-6.10); WHITE BLOOD CELL COUNT 7.9 /CUMM (4.8-10.8)
[2016-09-21 17:00] VITALS: BP 128/62
[2016-09-21 20:04] LABS: PT 46.3 SEC (9.4-12.5)
[2016-09-22 00:13] VITALS: BP 124/60
[2016-09-22 07:41] VITALS: BP 120/70
--- NOTE | 2016-09-22 08:15 | PN- Housestaff ---
HILL HEATH,NIC 09/22/16 0815: Subjective Follow-up For: hypoglycemia sinus tachycardia Tele-Events Since Last Visit: SR-ST 94-110. Subjective: Yesterday evening, his blood sugar was 60, and improved with orange juice. He did not eat much yesterday, and novolog was not given. Pt was more somnolent this morning, his blood sugar was noted to be 50. He received levemir yesterday, we are discontinuing the levemir today. This morning , we gave him one amp of dextrose. When I initially examined him, he was somnolent, opened eyes to command but falls right back to sleep. His mentation improved afterwards. His lower extremity wound was actively bleeding and soaking up the bed, wound care consulted. His heart rate is better now, in the 90s, and still denies chest discomfort INR was still high yesterday at 4.48, could not draw labs this morning. Around 11am, I was notified by the nurse that he was having left hand discomfort. His left hand IV was taken out and I can see bruising and erythema on the left hand. He is tender on the dorsal surface. I could not appreciate radial and ulnar pulse on both hands, and he has significant peripheral vascular disease. Would consider vascular consult tomorrow. Attending, Dr. Lucero, notified. We wanted to start neurontin 100 mg tid. Can go up to 300 tid tomorrow if continue to tolerate. However, given significant renal dysfunction, with up to date guidelines as below, we held off on starting neurontin for now. CrCl 15 mL/minute: 100 to 300 mg once daily CrCl <15 mL/minute: Reduce daily dose in proportion to creatinine clearance based on dose for creatinine clearance of 15 mL/minute (eg, reduce dose by one- half [range: 50 to 150 mg/day] for CrCl 7.5 mL/minute) ESRD requiring hemodialysis: Dose based on CrCl plus a single supplemental Review of Systems Constitutional: Reports: see HPI. Objective Last 24 Hrs of Vital Signs/I&O Vital Signs Date Time Temp Pulse Resp B/P Pulse O2 O2 Flow FiO2 Ox Delivery Rate 09/22 0741 97.8 81 16 120/70 97 Room Air 09/22 0013 98.7 116 20 124/60 95 Room Air 09/21 1700 97.7 130 16 128/62 93 Room Air Intake & Output 09/22 1600 09/22 0800 09/22 0000 Intake Total 100 100 Output Total Balance 100 100 Intake, Oral 100 100 Number 1 1 Bowel Movements Patient 61.802 kg 57.833 kg Weight Physical Exam General Appearance: somnolent but arousable Skin: bleeding from leg ulcers Cardiovascular: Regular Rate, Normal S1, Normal S2, No Murmurs Lungs: Clear to Auscultation, Normal Air Movement Abdomen: Normal Bowel Sounds, Soft, No Tenderness Current Medications: Current Medications Sig/Kailash Start time Last Medication Dose Route Stop Time Status Admin Aspirin Buffered 81 MG DAILY 09/20 1000 AC 09/22 PO 0857 Atorvastatin Calcium 40 MG 1700 09/20 1700 AC 09/21 PO 1708 Cyanocobalamin 1,000 MCG DAILY 09/20 1000 AC 09/22 PO 0856 Dextrose 25 GM ONCE ONE 09/22 0815 AK 09/22 IV 09/22 0816 0817 Diphenoxylate HCl/ 2.5 MG TIDPRN PRN 09/21 0315 AC 09/21 Atropine PO 1752 Epoetin Ludwig 3,000 UNIT TUES THURS SAT PRN 09/21 1345 AC IV Epoetin Ludwig 2,000 UNIT TUES THURS SAT PRN 09/21 1345 AC IV Ferrous Sulfate 325 MG TID 09/19 1834 AC 09/22 PO 0856 Insulin Aspart 0 TIDAC 09/22 1200 UNVr SC Insulin Aspart 0 TIDAC 09/19 1700 AK 09/20 SC 1248 Insulin Detemir 5 UNITS DAILY 09/20 1000 DC 09/21 SC 1021 Multivitamins 1 TAB DAILY 09/20 1000 AC 09/22 PO 0856 Omeprazole 20 MG DAILY AC 09/20 0700 AC 09/22 PO 0648 Oxycodone/ 1 TAB ONCE ONE 09/21 1430 DC 09/21 Acetaminophen PO 09/21 1431 1432 Oxycodone/ 2 TAB Q6-PRN PRN 09/20 1615 AC 09/22 Acetaminophen PO 0650 Prednisone 5 MG DAILY 09/20 1000 AC 09/22 PO 0856 Last 24 Hrs of Lab/Avtar Results Last 24 Hrs of Labs/Mics: Laboratory Tests 09/21/16 1810: PT 46.3 *H, INR 4.48 *H 09/21/16 1235: Anion Gap 10, Estimated GFR 27 L, BUN/Creatinine Ratio 5.8 L, Glucose 73, Calcium 7.8 L, CBC w Diff NO MAN DIFF REQ, RBC 3.57 L, MCV 92.1, MCH 28.0, RDW 21.1 H, MPV 8.6, Gran % 74.3, Lymphocytes % 13.4 L, Monocytes % 8.4, Eosinophils % 3.5, Basophils % 0.4, Absolute Granulocytes 5.9, Absolute Lymphocytes 1.1 L, Absolute Monocytes 0.7 H, Absolute Eosinophils 0.3, Absolute Basophils 0, PUBS MCHC 30.4 L Assessment/Plan Assessment: 75-year-old gentleman PMH of ESRD on HD, PVD with chronic bilateral LE ulcers, history of pseudomonal cellulitis, femoropopliteal bypass surgery antiphospholipid syndrome, DVT on coumadin, chronic anemia, Crohn's disease status post bowel resection and chronic prednisone therapy, with resulting adrenal insufficiency, subglottic edema and acute respiratory failure which required ICU admission in May 2016, kidney stones status post lithotripsy, IDDM, admitted with altered mental state, confusion secondary to brief episode of metabolic encephalopathy from hypoglycemia. # Lethargy due to hypoglycemia # Tachycardia on unknown etiology (asymptomatic) # Chronic lower extremity wounds # ESRD on dialysis Tu, Fri, Fri # Supratherapeutic INR # Diabetes * Endo on board, apprec recomendations * Levemir 5 units once a day DISCONTINUED * Sliding scale adjusted per Endo recs # Tachycardia on unknown etiology. Unlikely to be sepsis as he denies fever/ chills, and his dysuria (with UA large LE, WBC > 75) has been chronic and has grown yeast repeatedly in the past despite having been treated with fluconazole. His carvedilol was discontinued on last admission due to low blood pressure and has not been restarted. - Cardiology, Dr. Childers consulted, for persistent tachycardia (around 110) although he denies chest pain/discomfort/palpitations/shortness of breath. - 2Xtroponin negative. * Dr Childers consulted * If continues to be asymptomatic, most likely can discontinue telemetry * Consider re-starting carvedilol 25 mg bid if BP can tolerate it * Consider DC tele # Chronic lower extremity wounds - He has chronic necrotic and weeping ulcers on both legs. * Daily dressing change. * Pain control with 2 tabs percocet Q8P * Wound care consult # ESRD on dialysis Friday - Labs on dialysis days # Supratherapeutic INR * Will f/up INR (he might need a smaller dose of coumadin as his INR was supratherapeutic on 2.5 mg every other day) Diet: Renal dialysis diet DVT ppx: supratherapeutic INR FULL CODE Problem List: 1. Altered mental status 2. Tachycardia Pain Ratin Pain Location: none Pain Goal: Remain pain free Pain Plan: percocet Tomorrow's Labs & Rationales: iNR for warfarin CBC for wound bleed DVT/Prophylaxis: pharmacological Consulting Request: Consulting Specialty: Endocrinology ARTURO HEATH,HARRY 09/22/16 1127: Attending MD Review Statement Attending Statement Attending MD Statement: examined this patient, discuss w/resident/PA/ACADEMIC SUCCESS COORDINATOR, agreed w/resident/PA/ACADEMIC SUCCESS COORDINATOR, discussed with family, reviewed EMR data (avail), discussed with nursing, amended to note Attending Assessment/Plan: Patient seen and examined. Resting comfortably and not in any acute distress. He appears to be less tachycardic on telemetry monitoring. Artery appears to pick in the 120s. He remains asymptomatic from a cardiac standpoint. Patient unfortunately had episodes of hypoglycemia again with glucose of 60 around 3:30 PM yesterday and 50 around 8 AM this morning. He received Levemir 5 units yesterday. Although he was on a high dose sliding scale for insulin, he did not receive any coverage dose yesterday. Patient's left lower extremity dressing was very bloody this morning. Her symptoms open up with no evidence of underlying infection. Recommendations: -Discontinue Levemir. Monitor patient on low dose sliding scale coverage. His decreasing insulin requirements is likely secondary to his renal disease on hemodialysis. -Continue to hold off additional beta randy therapy as his heart rate is improving. -Discontinue telemetry monitoring. -Nursing staff educated to ensure that patient receives his insulin with meals. -Continue local wound dressing. -A blood glucose levels are stable off long-acting insulin therapy [facility].
--- NOTE | 2016-09-22 10:31 | PN- Diabetes ---
Assessment/Plan Assessment: This patient has type 2 diabetes mellitus and end-stage renal disease. He came into the hospital with hypoglycemia. The patient developed low blood sugar again late in the day yesterday. Apparently he did not eat very well yesterday. Plan: Suggest discontinuing Levemir. Continue sliding-scale NovoLog as written. The patient feels very discouraged and depressed. Consider antidepressant. Subjective Subjective: Feels discouraged Review of Systems Constitutional: Denies: chills, fever. Cardiovascular: Denies: chest pain. Respiratory: Denies: short of breath. Gastrointestinal: Denies: nausea, vomiting. Skin: Reports: lymphangitis (on legs). Objective Last 24 Hrs of Vital Signs/I&O Vital Signs Date Time Temp Pulse Resp B/P Pulse O2 O2 Flow FiO2 Ox Delivery Rate 09/22 0741 97.8 81 16 120/70 97 Room Air 09/22 0013 98.7 116 20 124/60 95 Room Air 09/21 1700 97.7 130 16 128/62 93 Room Air Intake & Output 09/22 1600 09/22 0800 09/22 0000 Intake Total 100 100 Output Total Balance 100 100 Intake, Oral 100 100 Number 1 1 Bowel Movements Patient 136 lb 128 lb Weight Vital Signs Date Time Temp Pulse Resp B/P Pulse O2 O2 Flow FiO2 Ox Delivery Rate 09/22 0741 97.8 81 16 120/70 97 Room Air 09/22 0013 98.7 116 20 124/60 95 Room Air 09/21 1700 97.7 130 16 128/62 93 Room Air Intake & Output 09/22 1600 09/22 0800 09/22 0000 Intake Total 100 100 Output Total Balance 100 100 Intake, Oral 100 100 Number 1 1 Bowel Movements Patient 136 lb 128 lb Weight Physical Exam General Appearance: alert, awake, thin Head: normal appearance Neck: normal inspection Respiratory: normal breath sounds Cardiovascular: regular rate/rhythm Abdomen: normal bowel sounds Extremities: both legs bandaged Current Medications: Current Medications Sig/Kailash Start time Last Medication Dose Route Stop Time Status Admin Aspirin Buffered 81 MG DAILY 09/20 1000 AC 09/22 PO 0857 Atorvastatin Calcium 40 MG 1700 09/20 1700 AC 09/21 PO 1708 Cyanocobalamin 1,000 MCG DAILY 09/20 1000 AC 09/22 PO 0856 Dextrose 25 GM ONCE ONE 09/22 0815 DC 09/22 IV 09/22 815 0817 Diphenoxylate HCl/ 2.5 MG TIDPRN PRN 09/21 0315 AC 09/21 Atropine PO 1752 Epoetin Ludwig 3,000 UNIT TUES THURS SAT PRN 09/21 1345 AC IV Epoetin Ludwig 2,000 UNIT TUES THURS SAT PRN 09/21 1345 AC IV Ferrous Sulfate 325 MG TID 09/19 1834 AC 09/22 PO 0856 Insulin Aspart 0 TIDAC 09/22 1200 AC SC Insulin Aspart 0 TIDAC 09/19 1700 DC 09/20 SC 1248 Insulin Detemir 5 UNITS DAILY 09/20 1000 DC 09/21 SC 1021 Multivitamins 1 TAB DAILY 09/20 1000 AC 09/22 PO 0856 Omeprazole 20 MG DAILY AC 09/20 0700 AC 09/22 PO 0648 Oxycodone/ 1 TAB ONCE ONE 09/21 1430 DC 09/21 Acetaminophen PO 09/21 1431 1432 Oxycodone/ 2 TAB Q6-PRN PRN 09/20 1615 AC 09/22 Acetaminophen PO 0650 Prednisone 5 MG DAILY 09/20 1000 AC 09/22 PO 0856 Findings Pertinent Lab/Avtar Results: Laboratory Tests 09/21 09/21 1810 1235 Chemistry Sodium (137 - 145 mmol/L) 137 Potassium (3.5 - 5.1 mmol/L) 4.4 Chloride (98 - 107 mmol/L) 103 Carbon Dioxide (22 - 30 mmol/L) 23 Anion Gap (5 - 16) 10 BUN (9 - 20 mg/dL) 14 Creatinine (0.7 - 1.2 mg/dL) 2.4 H Estimated GFR (>60 ml/min) 27 L BUN/Creatinine Ratio (7 - 25 %) 5.8 L Glucose (65 - 99 mg/dL) 73 Calcium (8.4 - 10.2 mg/dL) 7.8 L Coagulation PT (9.4 - 12.5 SEC) 46.3 *H INR (0.90 - 1.17) 4.48 *H Hematology CBC w Diff NO MAN DIFF REQ WBC (4.8 - 10.8 /CUMM) 7.9 RBC (4.70 - 6.10 /CUMM) 3.57 L Hgb (14.0 - 18.0 G/DL) 10.0 L Hct (42 - 52 %) 32.9 L MCV (80.0 - 94.0 FL) 92.1 MCH (27.0 - 31.0 PG) 28.0 RDW (11.5 - 14.5 %) 21.1 H Plt Count (130 - 400 /CUMM) 288 MPV (7.4 - 10.4 FL) 8.6 Gran % (42.2 - 75.2 %) 74.3 Lymphocytes % (20.5 - 51.1 %) 13.4 L Monocytes % (1.7 - 9.3 %) 8.4 Eosinophils % (0 - 5 %) 3.5 Basophils % (0.0 - 2.0 %) 0.4 Absolute Granulocytes (1.4 - 6.5 /CUMM) 5.9 Absolute Lymphocytes (1.2 - 3.4 /CUMM) 1.1 L Absolute Monocytes (0.10 - 0.60 /CUMM) 0.7 H Absolute Eosinophils (0.0 - 0.7 /CUMM) 0.3 Absolute Basophils (0.0 - 0.2 /CUMM) 0 PUBS MCHC (33.0 - 37.0 G/DL) 30.4 L
[2016-09-22 15:56] VITALS: BP 116/70
[2016-09-23 00:37] VITALS: BP 112/68
--- NOTE | 2016-09-23 06:36 | PN- Housestaff ---
HILL HEATH,NIC 09/23/16 0636: Subjective Follow-up For: hypoglycemia Subjective: pt seen this morning, he was alert, oriented and in good spirits. no events overnight. his accucheck yesterday was 221,277, and 192, he ate 100% of his breakfast, 25% lungch, and 15% dinner. he did not receive novolog or levemir yesterday. he said he just does not feel like eating, he does not have appetite. he reports liking breakfast food and i recommended ordering breakfast food all day. his left hand (dorsal surface) still bruised and tender, and he is still reporting pain with making a fist. still cannot feel radial pulses bilaterally. his hands have been numb chronically but he is refusing further addition of medication (neurontin) at this time. his leg pain is 7/10, not obviously bleeding through the wrapping this am. instructed nurse to give his percocet thia am. it has been challenging to draw labs on him and we typically draw labs on dialysis days. his warfarin still held. he has expressed to me that he does not want to go to [place] [facility] and would consider other options if he still needs to go to rehab. Ideally, he wants to get better in the hospital and subsequently sent home. If continues to do well, might be discharged to rehab today. He continues to be mildly tachycardic as per recorded vital signs, although on my examination this morning, he was not tachycardic and has consistently denied chest discomfort. he does report abdominal cramps (chronic) due to crohns along with diarrhea ( also chronic but improved), denies blood in stool. Review of Systems Constitutional: Denies: chills, fever. EENTM: Denies: visual changes. Cardiovascular: Denies: chest pain, palpitations. Respiratory: Denies: cough, short of breath. Gastrointestinal: Reports: abdominal pain. Objective Last 24 Hrs of Vital Signs/I&O Vital Signs Date Time Temp Pulse Resp B/P Pulse O2 O2 Flow FiO2 Ox Delivery Rate 09/23 0037 97.7 107 16 112/68 96 Room Air 09/22 1556 97.3 113 16 116/70 97 Room Air Intake & Output 09/23 1600 09/23 0800 09/23 0000 Intake Total 240 200 Output Total 100 Balance 240 100 Intake, Oral 240 200 Output, Urine 100 Patient 61.292 kg Weight Physical Exam General Appearance: Alert, Oriented X3, Cooperative Skin: bilateral lower extremity ulcers POA HEENT: Atraumatic Neck: Supple Cardiovascular: Regular Rate, Normal S1, Normal S2, No Murmurs Lungs: Clear to Auscultation, Normal Air Movement Abdomen: Normal Bowel Sounds, Soft, mild tenderness on palpation all over ( chronic) Extremities: wounds wrapped, no obvious bleeding. Current Medications: Current Medications Sig/Kailash Start time Last Medication Dose Route Stop Time Status Admin Aspirin Buffered 81 MG DAILY 09/20 1000 AC 09/22 PO 0857 Atorvastatin Calcium 40 MG 1700 09/20 1700 AC 09/22 PO 1621 Cyanocobalamin 1,000 MCG DAILY 09/20 1000 AC 09/22 PO 0856 Diphenoxylate HCl/ 2.5 MG TIDPRN PRN 09/21 0315 AC 09/23 Atropine PO 0611 Epoetin Ludwig 3,000 UNIT TUES THURS SAT PRN 09/21 1345 AC IV Epoetin Ludwig 2,000 UNIT TUES THURS SAT PRN 09/21 1345 AC IV Ferrous Sulfate 325 MG TID 09/19 1834 AC 09/22 PO 2108 Gabapentin 100 MG Q8 09/22 1115 CAN PO Insulin Aspart 0 TIDAC 09/22 1200 AC 09/23 SC 0755 Insulin Aspart 0 TIDAC 09/19 1700 DC 09/20 SC 1248 Insulin Detemir 5 UNITS DAILY 09/20 1000 DC 09/21 SC 1021 Multivitamins 1 TAB DAILY 09/20 1000 AC 09/22 PO 0856 Omeprazole 20 MG DAILY AC 09/20 0700 AC 09/23 PO 0611 Oxycodone/ 2 TAB Q6-PRN PRN 09/20 1615 AC 09/23 Acetaminophen PO 0429 Prednisone 5 MG DAILY 09/20 1000 AC 09/22 PO 0856 Assessment/Plan Assessment: 75-year-old gentleman PMH of ESRD on HD, PVD with chronic bilateral LE ulcers, history of pseudomonal cellulitis, femoropopliteal bypass surgery antiphospholipid syndrome, DVT on coumadin, chronic anemia, Crohn's disease status post bowel resection and chronic prednisone therapy, with resulting adrenal insufficiency, subglottic edema and acute respiratory failure which required ICU admission in May 2016, kidney stones status post lithotripsy, IDDM, admitted with altered mental state, confusion secondary to brief episode of metabolic encephalopathy from hypoglycemia. # Lethargy due to hypoglycemia (resolved) # Tachycardia on unknown etiology (asymptomatic) # Chronic lower extremity wounds # ESRD on dialysis Fri, Fri, Fri # Supratherapeutic INR # Diabetes * Endo on board, apprec recomendations * Levemir 5 units once a day DISCONTINUED * Sliding scale adjusted per Endo recs # Tachycardia on unknown etiology. Unlikely to be sepsis as he denies fever/ chills, and his dysuria (with UA large LE, WBC > 75) has been chronic and has grown yeast repeatedly in the past despite having been treated with fluconazole. His carvedilol was discontinued on last admission due to low blood pressure and has not been restarted. - Cardiology, Dr. Childers consulted, for persistent tachycardia (around 110) although he denies chest pain/discomfort/palpitations/shortness of breath. - 2Xtroponin negative. * Dr Childers consulted * If continues to be asymptomatic, most likely can discontinue telemetry * Consider re-starting carvedilol 25 mg bid (but start with a lower dose) if BP can tolerate it * No events on telemetry. telemetry discontinued # Chronic lower extremity wounds, present on admission # Bilateral heel unstageable ulcers, coccyx unstageable ulcer, present on admission - He has chronic necrotic and weeping ulcers on both legs. * Daily dressing change. * Pain control with 2 tabs percocet Q8P * Wound care consult # ESRD on dialysis Friday - Labs on dialysis days # Supratherapeutic INR * Will f/up INR (he might need a smaller dose of coumadin as his INR was supratherapeutic on 2.5 mg every other day) # Mild protein calorie nutrition - Pt has poor PO intake * Encourage po intake, he likes breakfast-type food. Diet: Renal dialysis diet DVT ppx: supratherapeutic INR FULL CODE Problem List: 1. Hypoglycemia Pain Ratin Pain Location: legs abd cramps Pain Goal: Pain 7 or less Pain Plan: percocet Tomorrow's Labs & Rationales: INR for warfarin BEP for kidney functions CBC for acute blood loss anemia DVT/Prophylaxis: mechanical Consulting Request: Consulting Specialty: Endocrinology ARTURO HEATH,HARRY 09/23/16 1317: Attending MD Review Statement Attending Statement Attending MD Statement: examined this patient, discuss w/resident/PA/ASSISTANT PROFESSOR OF PSYCHOLOGY, agreed w/resident/PA/ASSISTANT PROFESSOR OF PSYCHOLOGY, reviewed EMR data (avail), discussed with nursing, discussed with case mgmt, amended to note Attending Assessment/Plan: Patient seen and examined. Resting comfortably in bed not in acute distress. Complaining of mild nausea. Denies any vomiting today. Denies abdominal pain. Afebrile and hemodynamically stable. His long-acting insulin was held yesterday due to his hypoglycemic episodes. He did not receive mealtime coverage because he had a reduced intake for his lunch and dinner. Appetite however he reports is good. Case was discussed with endocrinology service and recommendations are to resume long-acting insulin with Levemir 3 units twice daily. His blood glucose levels were in the 200s this morning. Continues to be tachycardic with heart rate trending as high as 120 on occasion. He is fortunately asymptomatic. However to prevent long-standing tachycardia we will resume beta randy therapy which he was on prior to last admission for hypotension. He was on 25 mg of Coreg at that time. Recommendations: -Resume long-acting insulin regimen as recommended by the endocrinology service. -Resume patient on Coreg 6.25 mg orally twice daily. -Patient medically stable to be discharged to long-term facility for further management. -His glucose levels and blood pressure can be monitored further at nursing facility with adjustments to his regimen as needed at the facility.
[2016-09-23 08:00] VITALS: BP 122/60
--- NOTE | 2016-09-23 08:33 | PN- Diabetes ---
Assessment/Plan Assessment: This patient has type 2 diabetes mellitus and end-stage renal disease. He came into the hospital with hypoglycemia. The patient developed low blood sugar again late in the day Friday. Apparently he did not eat very well yesterday. Yesterday we stopped his Levemir. Plan: Suggewst place back on Levemir 3 unirts once a day give in the am. Colmntginue slidin g scale Novolog. Subjective Subjective: Feels about the same Objective Last 24 Hrs of Vital Signs/I&O 130/64 Physical Exam General Appearance: cchronically ill lethargic Head: atraumatic Neck: normal inspection Respiratory: normal breath sounds Cardiovascular: regular rate/rhythm Abdomen: normal bowel sounds, soft Extremities: necrotizing ulcers
[2016-09-23] MEDS ORDERED: NOVOLOG100 UNIT/2 SC (09:46)
[2016-09-23] MEDS ORDERED: LEVEMIR100 UNIT/1 SC (11:32)
[2016-09-23] MEDS ORDERED: COREG3.125 MG PO (12:54)
[2016-09-23 15:17] VITALS: BP 138/64
[2016-09-23 15:43] VITALS: BP 128/68
[2016-09-23 15:48] VITALS: BP 138/64
[2016-09-24] MEDS ORDERED: ATORVASTATIN CA40 M1 PO (10:33)
[2016-09-24] MEDS ORDERED: ASPIRIN EC81 M1 PO (10:34)
[2016-09-24] MEDS ORDERED: COUMADIN1 M1 PO (10:38)
[2016-09-24] MEDS ORDERED: PREDNISONE5 M1 PO ×2 (16:54→16:56)
[2016-09-24] MEDS ORDERED: COREG3.125 MG PO (16:54)
[2016-09-24] MEDS ORDERED: MUCINEX600 M1 PO (16:54)
== END 2016-09-23 16:00 | DRG 637 ==
LOC: ENRESERVTM → ENRESERVDT → CANRESERV → ERH 11:06 → 1NO 14:21 → ENPENDDIS 14:21 → ERHI 14:21 → 1NO 14:21 → ERHI 20:59 → EDBEDREQ 22:09 → 1NO 22:55
PROVIDERS: Internal Medicine; Internal Medicine Nephrology; Physician Assistant Medical; ADMIT Hospitalist
DX: E11.649 Type 2 diabetes mellitus with hypoglycemia without coma (principal); G93.41 Metabolic encephalopathy; L98.419 Non-pressure chronic ulcer of buttock with unspecified severity; L97.419 Non-pressure chronic ulcer of right heel and midfoot with unspecified severity; E46 Unspecified protein-calorie malnutrition; I12.0 Hypertensive chronic kidney disease with stage 5 chronic kidney disease or end stage renal disease; N18.6 End stage renal disease; D68.61 Antiphospholipid syndrome; E11.621 Type 2 diabetes mellitus with foot ulcer; E11.22 Type 2 diabetes mellitus with diabetic chronic kidney disease; E27.40 Unspecified adrenocortical insufficiency; K50.90 Crohn's disease, unspecified, without complications; L97.429 Non-pressure chronic ulcer of left heel and midfoot with unspecified severity; Z68.1 Body mass index [BMI] 19.9 or less, adult; E11.65 Type 2 diabetes mellitus with hyperglycemia; Z79.4 Long term (current) use of insulin; Z99.2 Dependence on renal dialysis; J44.9 Chronic obstructive pulmonary disease, unspecified; I73.9 Peripheral vascular disease, unspecified; Z83.2 Family history of diseases of the blood and blood-forming organs and certain disorders involving the immune mechanism; E78.5 Hyperlipidemia, unspecified; Z87.891 Personal history of nicotine dependence; R00.0 Tachycardia, unspecified
CPT/HCPCS: 1NP; 36415; 81001; 82436; 87040; 87086; 87088; 93005; 93010; 96374; 97161-GP; 97530-GO; J0885; J1644; J7060; J7512

== ENCOUNTER 2016-09-24 10:18 | Inpatient (IN) | payer OTHER, MEDICARE ==
[~2016-09-24] VITALS: Ht 172.7 cm; Wt 65.8 kg
[~2016-09-24 10:18] MED LIST changes: +COREG3.125 MG PO; +COUMADIN1 M1 PO; +OMEPRAZOLE20 M2 PO
[2016-09-24] MEDS ORDERED: ATORVASTATIN CA40 M1 PO (10:33)
[2016-09-24] MEDS ORDERED: ASPIRIN EC81 M1 PO (10:34)
--- NOTE | 2016-09-24 10:36 | NUR ---
PT BIBA FROM [facility] FOR HYPOGLYCEMIA, HYPOTENSION AND AMS. PT ARRIVES LETHARGIC, TACHYCARDIC 124, HYPOTENSIVE 60'S SYSTOLIC. BS 126. FACILITY GAVE PT 2 DOSES OF GLUCAGON. PT RECENTLY SEEN HERE FOR SAME. DUE FOR DIALYSIS TODAY.
[2016-09-24] MEDS ORDERED: COUMADIN1 M1 PO (10:38)
--- NOTE | 2016-09-24 10:47 | NUR ---
DR. WAITE AT BEDSIDE TO ATTEMPT IV ACCESS D/T PT BEING A VERY DIFFICULTY STICK.
--- NOTE | 2016-09-24 10:52 | NUR ---
DR. WAITE UNABLE TO PLACE AN EJ. AT BEDSIDE AND DISCUSSION OF CENTRAL LINE PLACEMENT OCCURING.
--- NOTE | 2016-09-24 11:02 | NUR ---
DR. WAITE AT BEDSIDE TO PLACE CENTRAL LINE.
--- NOTE | 2016-09-24 11:08 | NUR ---
HEAD O2 PROBE PLACED, O2 SAT READING 93% ON 2L NC.
--- NOTE | 2016-09-24 11:24 | NUR ---
[facility] CALLED TO REPORT CRITICAL LAB VALUES FROM THIS AM'S LAB DRAW. PT WAS 63.6, INR WAS 6.17.
--- NOTE | 2016-09-24 11:52 | ED AMS/SEIZURE/WEAK/DIZZY ---
History of Present Illness General Chief Complaint: Altered Mental Status Stated Complaint: BIBA, AMS, HYPOTENSION Source: family, old records, EMS Exam Limitations: unable to give history, clinical condition Vital Signs & Intake/Output Vital Signs & Intake/Output Vital Signs Date Time Temp Pulse Resp B/P Pulse O2 O2 Flow FiO2 Ox Delivery Rate 09/25 08 99 Nasal 5.0L Cannula 09/25 0800 98.3 126 20 117/95 99 Nasal 5.0L Cannula 09/25 0400 100 Nasal 3.0L Cannula 09/25 0000 97.7 107 25 100/52 97 Nasal 3.0L Cannula 09/25 0000 97 Nasal 3.0L Cannula 09/24 2312 Nasal 3.0L Cannula 09/24 2109 97.7 118 28 100/51 96 Nasal 3.0L Cannula 09/24 2055 95 Nasal 2.5L Cannula 09/24 2054 98.4 112 20 108/60 98 09/24 1901 98.8 117 20 116/59 100 Nasal 4.0L Cannula 09/24 1753 112 22 96/50 98 Venti Mask 45% 09/24 1726 98.9 111 16 87/56 84 09/24 1634 97.0 09/24 1625 97.0 109 20 109/57 100 Venti Mask 50% 09/24 1454 98.8 116 20 91/54 100 Venti Mask 50% 09/24 1256 98.4 116 22 92/53 97 Venti Mask 55% 09/24 1252 100.8 ED Intake and Output 09/25 0000 09/24 1200 Intake Total 1700 Output Total 100 100 Balance 1600 -100 Intake, IV 1700 Intake, Oral 0 Number 2 Bowel Movements Output, Urine 100 100 Patient 139 lb 140 lb Weight Allergies Coded Allergies: Sulfa (Sulfonamide Antibiotics) (Mild, HIVES 06/15/16) Reconcile Medications Aspirin (Ecotrin*) 81 MG TABLET.DR 1 TAB PO QPM HEART HEALTH (Reported) Reason to Stop at ADM: high INR, risk for bleeding Atorvastatin Calcium 40 MG TABLET 1 TAB PO QPM CHOLESTEROL (Reported) B Complex & C No.20/Folic Acid (Nephrocaps Softgel) 1 MG CAPSULE 1 CAP PO DAILY SUPPLEMENT Calcium Carbonate/Vitamin D3 (Os-Vishal 500+D3 Caplet) 500 MG-600 TABLET 1 TAB PO TID SUPPLEMENT (Reported) Carvedilol (Coreg) 3.125 MG TABLET 6.25 MG PO BID high heart rate Reason to Stop at ADM: hypotensive Cyanocobalamin (Vitamin B-12) (Vitamin B-12) 500 MCG TABLET 2 TAB PO DAILY ANEMIA (Reported) Ferrous Sulfate 325 MG (65 MG IRON) TABLET 1 TAB PO QPM SUPPLEMENT (Reported) Guaifenesin (Mucinex) 600 MG TAB.ER.12H 1 TAB PO BID cONGESTION Insulin Aspart (Novolog) 100 UNIT/ML VIAL 0 UNITS SC TIDAC diabetes Do not give novolog unless patient eats! Give novolog only after assessing his food intake. Blood sugar Less than 150: no insulin 151-200: give 2 units 201-250: give 3 units 251-300: give 4 units 301-350: Give 5 units 351-400: give 6 units More than 400: give 6 units, call Insulin Detemir (Levemir) 100 UNIT/ML VIAL 3 UNITS SC DAILY diabetes please follow up with Dr. Hilton in 1 week Nephro-Vitamins (Nephro-Arthur Tablet) 0.8 MG TABLET 1 TAB PO DAILY kidney Omeprazole 20 MG CAPSULE. 1 CAP PO DAILY GI (Reported) Oxycodone HCl/Acetaminophen (Percocet 5-325 MG Tablet) 5 MG-325 MG TABLET 2 TAB PO Q8P PRN PAIN SCALE 4-6 (MODERATE) Prednisone 5 MG TABLET 1 TAB PO DAILY Crohns disease Sevelamer Carbonate (Renvela) 800 MG TABLET 1 TAB PO TIDWM KIDNEYS (Reported) RESTART WHEN PHOS LEVEL >3.5 Sodium Chloride (Saline Nasal [place]) 0.65 % SPRAY 1 SPRAY NASB 4 TIMES/DAY PRN dRY NOSE Warfarin Sodium (Coumadin) 1 MG TABLET 1 TAB PO Q48 BLOOD THINNER (Reported) Reason to Stop at ADM:supratherapeutic INR Triage Note: PT BIBA FROM [facility] FOR HYPOGLYCEMIA, HYPOTENSION AND AMS. PT ARRIVES LETHARGIC, TACHYCARDIC 124, HYPOTENSIVE 60'S SYSTOLIC. BS 126. FACILITY GAVE PT 2 DOSES OF GLUCAGON. PT RECENTLY SEEN HERE FOR SAME. DUE FOR DIALYSIS TODAY. Triage Nurses Notes Reviewed? yes HPI: Patient presents for evaluation of decreased mental status and low blood pressure. Patient was transported from an extended care facility for evaluation. He is unable to provide any history at this time. His states that he was just discharged from [facility] yesterday to the extended care facility. he has had episodes like this before. Past History Travel History Traveled to [place] past 21 day No Medical History Any Pertinent Medical History? see below for history Neurological: NONE EENT: NONE Cardiovascular: PVD, DVT Respiratory: pneumonia Gastrointestinal: Crohn's disease Hepatic: NONE Renal: nephrolithiasis, CKD Musculoskeletal: VASCULAR OCCLUSION RIGHT LEG RIGHT PATELLA FRACTURE WITH orif NON HEALING WOUNDS R. TOE AMPUTATIONS Psychiatric: NONE Endocrine: diabetes Blood Disorders: anemia, coagulopathy, DVT (RUE and RLE), antiphosphlipid syndrome Cancer(s): NONE VESSEL ORDINARY SEAMAN/Reproductive: NONE History of MRSA: No History of VRE: Yes History of CDIFF: No Surgical History Surgical History: colon resection, knee replacement (left), LEFT HIP ORIF status post right leg bypass status post right patellar ORIF status post right TMA status post lithotripsy and stent placements Psychosocial History Who do you live with Spouse Services at Home None What is your primary language Croatian Tobacco Use: Cognitive Impairment Family History Family History, If Any: FATHER Antiphospholipid syndrome FH: diabetes mellitus MOTHER FH: Crohn's disease Hx Contributory? No Review of Systems Review of Systems Constitutional: Reports: see HPI. Comments pt unable to provide ros. Physical Exam Physical Exam General Appearance: SEE BELOW Comments: Gen.: Well-nourished, well-developed, no acute respiratory distress. Lethargic but responsive to painful stimuli. Head: Normocephalic, atraumatic. Eyes: Normal inspection bilaterally Ears: Normal inspection bilaterally Nose: Normal inspection Throat/mouth : Dry mucosa Neck: Supple, full range of motion, no goiter Heart: Regular rate and rhythm, no murmurs rubs or gallops Lungs: Clear to auscultation bilaterally with normal air entry Chest: Nontender Back: Normal range of motion Abdomen: Soft, nondistended, normal bowel sounds Extremities: Normal range of motion grossly, equal but diminished radial pulses, no cyanosis, multiple healing cutaneous ecchymoses secondary to venipuncture, bilateral 2+ lower extremity edema Neurologic: Cranial nerves grossly intact, speech is clear Skin: warm and dry Psychiatric: Calm, cooperative, no apparent delusions or hallucinations Core Measures ACS in differential dx? No CVA/TIA Diagnosis: No Severe Sepsis Present: Yes Septic Shock Present: Yes Progress Differential Diagnosis: dehydration, sepsis Plan of Care: Orders Procedure Date/time Status ICU LAB BUNDLE 09/26 0500 Active CBC WITHOUT DIFFERENTIAL 09/26 0500 Active XRY-MODIFIED BARIUM SWALLOW 09/25 1205 Active LOWER RESPIRATORY CULTURE 09/25 1204 Active Transfer patient to 09/25 1033 Active VANCOMYCIN PEAK 09/25 0500 Complete PROTHROMBIN TIME 09/25 0500 Complete LACTIC ACID 09/25 0500 Complete ICU LAB BUNDLE 09/25 0500 Complete CBC WITHOUT DIFFERENTIAL 09/25 0500 Complete Wound Care/Dressing 09/25 0126 Active Weight 09/25 0126 Active VTE Mechanical Prophylaxis 09/25 0126 Active Vital Signs 09/25 0126 Active Turn and Reposition 09/25 0126 Active Drains/Tubes 09/25 012 Active Teach/Educate 09/25 012 Active Skin Integrity Protocol 09/25 0126 Active Skin/Pressure Ulcer Assess (Sk 09/25 0126 Active Precautions 09/25 0126 Active Pain Treatment and Response 09/25 012 Active Nutritional Intake, Monitor 09/25 012 Active Isolation 09/25 0126 Active CIWA 09/25 0126 Active Patient Care Conference 09/25 0126 Active Activity/Ambulation 09/25 0126 Active SWALLOW EVALUATION 09/25 UNK Active Nursing Misc 09/25 UNK Active Can, Insertion/Removal/Asses 09/25 UNK Complete Can, Insertion/Removal/Asses 09/25 UNK Active Nothing by Mouth 09/24 D Active RT: Evaluation 09/24 2313 Active OXYGEN SETUP (GEN) 09/24 2230 Complete LACTIC ACID 09/24 2230 Complete LACTIC ACID 09/24 1930 Complete Lab Add-on Test 09/24 1801 Active SPECIMEN TO BE OBTAINED 09/24 1722 Active VRE ACTIVE SURVIELLANCE 09/24 1543 Active ACTIVE SURVEILLANCE NARES 09/24 1543 Active TRC EVALUATION (GEN) 09/24 1404 Complete Pathway - chart 09/24 1404 Active Code Status 09/24 1404 Active Patient Data 09/24 1348 Active Admit to inpatient 09/24 1317 Active VANCOMYCIN (VANCOCIN) LEVEL 09/24 1155 Complete Can, Insertion/Removal/Asses 09/24 1045 Complete FingerStick- Glucose 09/24 1036 Active OXYGEN SETUP CHG 09/24 UNK Complete OXYGEN 09/24 UNK Complete OXYGEN TRANSPORT 09/24 UNK Complete THERAPIST ORDERS 09/24 UNK Complete House Staff 09/24 UNK Active Vital Signs 09/24 UNK Active Intake & Output 09/24 UNK Active Current Medications Sig/Kailash Start time Last Medication Dose Stop Time Status Admin Ceftriaxone Sodium 1,000 MG DAILY 09/25 1000 CAN (Rocephin) Cyanocobalamin 1,000 MCG DAILY 09/25 1000 AC (Vitamin B12) Multivitamins 1 TAB DAILY 09/25 1000 AC (Nephrocaps) Multivitamins 1 TAB DAILY 09/25 1000 CAN (Nephrocaps) Prednisone 5 MG DAILY 09/25 1000 CAN Omeprazole 20 MG DAILY AC 09/25 0700 AC (Prilosec) Atorvastatin Calcium 40 MG QPM 09/24 220 AC (Lipitor) Calcium Carbonate 500 MG TID 09/24 220 AC (Os-Vishal 500 MG Tab) Ferrous Sulfate 325 MG QPM 09/24 220 AC (Feosol) Guaifenesin 600 MG BID 09/24 220 AC (Mucinex) Insulin Aspart 0 Q4 09/24 2200 AC (NovoLOG) Sodium Chloride 1 SPRAY 4 TIMES/DAY PRN 09/24 1445 AC (Nasal) Acetaminophen 650 MG Q6P PRN 09/24 1400 AC (Tylenol) Acetaminophen 1,000 MG Q6P PRN 09/24 1400 AC (Ofirmev) Laboratory Tests 09/25/16 0555: Anion Gap 11, Estimated GFR 14 L, Glucose 97, Lactic Acid 2.3 H, Calcium 7.8 L, Phosphorus 4.6 H, Magnesium 1.2 L, Total Bilirubin 0.2, AST 18, ALT 26, Albumin 1.7 L, PT 66.1 *H, INR 6.41 *H, CBC w Diff MAN DIFF ORDERED, RBC 3.29 L, MCV 91.2, MCH 29.1, RDW 20.6 H, MPV 8.2, Gran % 97.3 H, Lymphocytes % 1.5 L, Monocytes % 1.1 L, Eosinophils % 0.1, Basophils % 0 L, Absolute Granulocytes 24.0 H, Segmented Neutrophils 78 H, Band Neutrophils 20 H, Absolute Lymphocytes 0.4 L, Lymphocytes 1 L, Monocytes 1 L, Absolute Monocytes 0.3, Absolute Eosinophils 0, Absolute Basophils 0, Nucleated RBCs 1 H , Platelet Estimate ADEQUATE, Normocytic RBCs VERIFIED, Hypochromic-Microcytic 2 +, Anisocytosis 1+, PUBS MCHC 31.9 L, Fld Total RBCs Counted 100, Vancomycin Peak 11.6 L 09/24/16 2350: Lactic Acid 2.8 H 09/24/16 2322: Lactic Acid Cancelled 09/24/16 1926: Lactic Acid 2.9 H 09/24/16 1630: Lactic Acid 2.9 H Microbiology 09/25 1204 LOWER RESP: Respiratory Culture - ORD 09/25 1204 LOWER RESP: Gram Stain - ORD 09/24 2147 UPPER RESP: Surveillance Culture - RECD 09/24 2147 GI: Surveillance Culture - RECD 09/24 1245 BLOOD: Blood Culture - RECD Diagnostic Imaging: Discussed w/RAD: Radiology Read. CXR Impression: PATIENT: BENJAMIN SMITH PRESENT AGE: 75 PATIENT ACCOUNT NO: [id number] : 41 LOCATION: [facility] ORDERING PHYSICIAN: CARLOS ENRIQUE WAITE MD SERVICE DATE: 09/24/16-114 EXAM TYPE: RAD - XRY-PORTABLE CHEST XRAY EXAMINATION: XR PORTABLE CHEST CLINICAL INFORMATION: Status post left subclavian line placement. COMPARISON: Chest x-ray done on 09/19/2016. TECHNIQUE : Portable AP view of the chest was obtained. FINDINGS: Interval placement of a left-sided subclavian line is noted. The tip is projecting at the level of the cavoatrial junction. There is no left-sided pneumothorax present. Both lung bases are symmetrically expanded and remain clear. The right-sided central line is still visualized and appears unchanged. Heart and mediastinal silhouette is within normal limits. Visualized upper abdomen is unremarkable. IMPRESSION: Interval placement of a left-sided central line is noted with its tip seen at the cavoatrial junction without any evidence of left-sided pneumothorax or any other significant change since 09/19/2016. DICTATED BY: GABRIEL TOBIN MD DATE/ TIME DICTATED:09/24/161235 TYPE ROLLING MACHINE OPERATOR:JOSE D DATE/TIME TRANSCRIBED: 09/24/161235 CONFIDENTIAL, DO NOT COPY WITHOUT APPROPRIATE AUTHORIZATION. < Electronically signed in Other Vendor System> SIGNED BY: GABRIEL TOBIN MD 09/24/16 1245 Initial ED EKG: nonspecific ST T wave chg, SINUS TACHYCARDIA Comments: 09/24/2016 11:51:07 AM left subclavian central line placed by sc without difficulty. IV fluid bolus ordered, patient's Can catheter shows thick particulate urine, IV Rocephin ordered along with lactic acid and blood cultures. 09/24/2016 12:32:53 PM chest x-ray reviewed by me, central line appears in appropriate position. 09/24/2016 1:00:30 PM we have had to escalate the patient's oxygen supplementation to 55% Ventimask with normalization of oxygen saturations. Patient's blood pressure is coming up steadily with gentle IV fluids. He continues to have watery diarrhea episodes. His urine appears infected. He has been treated with Rocephin and he will be given Flagyl as well for GI coverage. I've discussed his case with Dr. Del Cid. I'm awaiting a call back from the document restorer. Despite the fact that I feel the patient is in septic shock right now I cannot be more aggressive with the IV fluids given his renal failure/ dialysis. 09/24/2016 1:38:51 PM patient's case discussed with Dr. Cabrera. 09/24/2016 2:05pm with reevaluation, pt is now more awake and alert. he is answering questions. his agrees he has improved clinically. his color is now normal and his capillary refill and radial pulses have improved. heart and lung exams normal. systolic bp above 90 with fluids. shock resolving. Departure Departure Disposition: STILL A PATIENT Condition: Guarded Clinical Impression Primary Impression: Septic shock Secondary Impressions: Lethargy UTI (urinary tract infection) Qualifiers: Urinary tract infection type: site unspecified Hematuria presence: without hematuria Qualified Code: N39.0 - Urinary tract infection, site not specified Referrals: HOSSEIN HEATH,TAD Calvo (PCP/Family) Departure Forms: Customer Survey General Discharge Information Prescriptions: Current Visit Scripts Carvedilol (Coreg) 6.25 MG PO BID #30 Reason to Stop at ADM: hypotensive Guaifenesin (Mucinex) 1 TAB PO BID #20 TAB Prednisone 1 TAB PO DAILY #30 TAB Admission Note Spoke With: HAWK DEL CID MD Documentation of Exam: Documentation of any treatments & extenuating circumstances including Concerns Regarding Discharge (functional status, medication knowledge or non-compliance, living conditions, etc.) that warrant an admission rather than observation: Patient is in septic shock requiring intensive level medical care with IV antibiotics, IV fluids and close clinical monitoring of her condition and vital signs/pulse oximetry. Patient should also have a continuous dental service chief given his present level of tachycardia. He is requiring significant oxygen supplementation to maintain his oxygen saturations in the normal range. He continues to have watery diarrhea placing him at risk of ongoing fluid losses, dehydration and electrolyte abnormalities including bicarbonate potassium and sodium losses. He cannot be treated as an outpatient under the circumstances and requires ICU level care. Unfortunately his prognosis is grave at this time. Critical Care Note Critical Care Note Critical Care Time: 75-104 min Critical Care Note Critical Care Time: 75-104 min
--- NOTE | 2016-09-24 12:04 | NUR ---
PORT CXR DONE.
--- NOTE | 2016-09-24 12:08 | NUR ---
PER DR. WAITE, GIVEN 250 CC BOLUS OF NS.
[2016-09-24 12:16] LABS: ABSOLUTE BASOPHIL COUNT 0 /CUMM (0.0-0.2); ABSOLUTE EOSINOPHIL COUNT 0.2 /CUMM (0.0-0.7); ABSOLUTE LYMPH COUNT 0.8 /CUMM (1.2-3.4); ABSOLUTE MONOCYTE COUNT 0.3 /CUMM (0.10-0.60); BASOPHIL % 0 % (0.0-2.0); EOSINOPHIL % 0.8 % (0-5); GRANULOCYTE % 93.9 % (42.2-75.2); HEMATOCRIT 34.8 % (42-52); MEAN CORPUSCULAR HGB 28.8 PG (27.0-31.0); MEAN CORPUSCULAR HGB CONC 31.9 G/DL (33.0-37.0); MEAN CORPUSCULAR VOLUME 90.4 FL (80.0-94.0); MEAN PLATELET VOLUME 7.8 FL (7.4-10.4); PLATELET COUNT 353 /CUMM (130-400); RED BLOOD CELL CT 3.85 /CUMM (4.70-6.10); WHITE BLOOD CELL COUNT 20.2 /CUMM (4.8-10.8)
--- NOTE | 2016-09-24 12:37 | NUR ---
CRITICAL TEST RESULTS [id number] BENJAMIN SMITH 75 M TESTS AND RESULTS: LACTIC ACID 3.6 Results received and read back by: GOVIND BOGGS Results received date and time: 09/24/16 1237 The following provider was notified of the results, and read the results back: DR WAITE Notified date and time: 09/24/16 at 1237
--- NOTE | 2016-09-24 12:45 | RADIOLOGY REPORT ---
EXAMINATION: XR PORTABLE CHEST CLINICAL INFORMATION: Status post left subclavian line placement. COMPARISON: Chest x-ray done on 09/19/2016. TECHNIQUE: Portable AP view of the chest was obtained. FINDINGS: Interval placement of a left-sided subclavian line is noted. The tip is projecting at the level of the cavoatrial junction. There is no left-sided pneumothorax present. Both lung bases are symmetrically expanded and remain clear. The right-sided central line is still visualized and appears unchanged. Heart and mediastinal silhouette is within normal limits. Visualized upper abdomen is unremarkable. IMPRESSION: Interval placement of a left-sided central line is noted with its tip seen at the cavoatrial junction without any evidence of left-sided pneumothorax or any other significant change since 09/19/2016.
--- NOTE | 2016-09-24 12:48 | NUR ---
PT'S O2 SAT 74% ON 6L NC OXYGEN WITH STEADY WAVEFORM. DR. WAITE AWARE AND IN TO ASSESS PT. PT PLACED ON 50% VENTI MASK WITH MINIMAL IMPROVEMENT TO 76%. DR. WAITE AGAIN AT BEDSIDE AND INCREASED TO 55% VENTI MASK.WILL CONTINUE TO MONITOR.
--- NOTE | 2016-09-24 13:11 | History & Physical ---
[facility] [place] 1310: General Information and HPI MD Statement: I have seen and personally examined BENJAMIN SMITH and documented this H&P. The patient is a 75 year old M who presented with a patient stated chief complaint of hyopglycemia, altered mental status and hypotension. Source of Information: patient, family, old records Exam Limitations: clinical condition History of Present Illness: 75 y/o M with PMHx of ESRD on HD, antiphospholipid syndrome, PVD with chronic nonhealing bilateral lower extremity ulcers, atrial fibrillation on warfarin and IDDM, with multiple hospitalizations here at [facility] over the three months, who is BIBA from SNF with hypoglycemia, altered mental status and hypotension, one day after being discharged from [facility], where he was hospitalized for altered mental status secondary to hypoglycemia. Of note patient is lethargic and unable to provide much history so most of the history is obtained from his who was at bedside. Per patient's , he had been complaining of nausea and abdominal pain two days ago while he was still inpatient. She reports that patient was doing fine yesterday evening when she saw him at [facility] after being discharged from [facility]. However this morning she received a call from the facility that his blood sugars were too low and found him to be very lethargic upon her arrival. He was also hypotensive during this time, received glucagon x 2 and was BIBA to [facility] for further evaluation. There were no reported fevers at the nursing facility. Patient has a chronic dry cough, unchanged from baseline. He denies chest pain or shortness of breath. He endorses lower abdominal pain and chronic diarrhea. Of note, patient was treated with several courses of antibiotics for pneumonia multiple times during his recent hospitalizations, most recent one was approximately three weeks ago August when he was treated with a 1-week course of vancomycin and ceftazidime (09/02/16-). Allergies/Medications Allergies: Coded Allergies: Sulfa (Sulfonamide Antibiotics) (Mild, HIVES 06/15/16) Home Med list Aspirin (Ecotrin*) 81 MG TABLET. 1 TAB PO QPM HEART HEALTH (Reported) Reason to Stop at ADM: high INR, risk for bleeding Atorvastatin Calcium 40 MG TABLET 1 TAB PO QPM CHOLESTEROL (Reported) B Complex & C No.20/Folic Acid (Nephrocaps Softgel) 1 MG CAPSULE 1 CAP PO DAILY SUPPLEMENT Calcium Carbonate/Vitamin D3 (Os-Visahl 500+D3 Caplet) 500 MG-600 TABLET 1 TAB PO TID SUPPLEMENT (Reported) Carvedilol (Coreg) 3.125 MG TABLET 6.25 MG PO BID high heart rate Reason to Stop at ADM: hypotensive Cyanocobalamin (Vitamin B-12) (Vitamin B-12) 500 MCG TABLET 2 TAB PO DAILY ANEMIA (Reported) Ferrous Sulfate 325 MG (65 MG IRON) TABLET 1 TAB PO QPM SUPPLEMENT (Reported) Guaifenesin (Mucinex) 600 MG TAB.ER.12H 1 TAB PO BID cONGESTION Insulin Aspart (Novolog) 100 UNIT/ML VIAL 0 UNITS SC TIDAC diabetes Do not give novolog unless patient eats! Give novolog only after assessing his food intake. Blood sugar Less than 150: no insulin 151-200: give 2 units 201-250: give 3 units 251-300: give 4 units 301-350: Give 5 units 351-400: give 6 units More than 400: give 6 units, call MD Insulin Detemir (Levemir) 100 UNIT/ML VIAL 3 UNITS SC DAILY diabetes please follow up with Dr. Hilton in 1 week Nephro-Vitamins (Nephro-Arthur Tablet) 0.8 MG TABLET 1 TAB PO DAILY kidney Omeprazole 20 MG CAPSULE. 1 CAP PO DAILY GI (Reported) Oxycodone HCl/Acetaminophen (Percocet 5-325 MG Tablet) 5 MG-325 MG TABLET 2 TAB PO Q8P PRN PAIN SCALE 4-6 (MODERATE) Prednisone 5 MG TABLET 1 TAB PO DAILY Crohns disease Sevelamer Carbonate (Renvela) 800 MG TABLET 1 TAB PO TIDWM KIDNEYS (Reported) RESTART WHEN PHOS LEVEL >3.5 Sodium Chloride (Saline Nasal [place]) 0.65 % SPRAY 1 SPRAY NASB 4 TIMES/DAY PRN dRY NOSE Warfarin Sodium (Coumadin) 1 MG TABLET 1 TAB PO Q48 BLOOD THINNER (Reported) Reason to Stop at ADM:supratherapeutic INR Past History Travel History Traveled to [place] past 21 day No Medical History Neurological: NONE EENT: NONE Cardiovascular: PVD, DVT Respiratory: pneumonia Gastrointestinal: Crohn's disease Hepatic: NONE Renal: nephrolithiasis, CKD Musculoskeletal: VASCULAR OCCLUSION RIGHT LEG RIGHT PATELLA FRACTURE WITH orif NON HEALING WOUNDS R. TOE AMPUTATIONS Psychiatric: NONE Endocrine: diabetes Blood Disorders: anemia, coagulopathy, DVT (RUE and RLE), antiphosphlipid syndrome Cancer(s): NONE ETL INFORMATICA ARCHITECT/Reproductive: NONE History of MRSA: No History of VRE: Yes History of CDIFF: No Surgical History Surgical History: colon resection, knee replacement (left), LEFT HIP ORIF status post right leg bypass status post right patellar ORIF status post right TMA status post lithotripsy and stent placements Past Family/Social History Family History Relations & Conditions if any FATHER Antiphospholipid syndrome FH: diabetes mellitus MOTHER FH: Crohn's disease Psychosocial History Who Do You Live With? spouse Services at Home: None Primary Language: Cameroonian Functional Ability ADLs Independent: dressing, eating, toileting, bathing. Ambulation: walker IADLs Needs Assist: shopping, housework, finances, food prep, telephone, transportation, medication admin. Review of Systems Review of Systems Constitutional: Denies: chills, fever. EENTM: Reports: no symptoms. Cardiovascular: Denies: chest pain. Respiratory: Reports: cough (chronic). Denies: short of breath, sputum production. GI: Reports: abdominal pain, diarrhea (chronic), melena. Genitourinary: Reports: no symptoms. Musculoskeletal: Reports: no symptoms. Skin: Reports: no symptoms. Neurological/Psychological: Reports: other (lethargy). Hematologic/Endocrine: Reports: bruising. Immunologic/Allergic: Reports: no symptoms. All Other Systems: Reviewed and Negative Exam & Diagnostic Data Last 24 Hrs of Vital Signs/I&O Vital Signs Date Time Temp Pulse Resp B/P Pulse O2 O2 Flow FiO2 Ox Delivery Rate 09/24 1901 117 20 116/59 100 Nasal 4.0L Cannula 09/24 1753 112 22 96/50 98 Venti Mask 45% 09/24 1726 98.9 111 16 87/56 84 09/24 1634 97.0 09/24 1625 97.0 109 20 109/57 100 Venti Mask 50% 09/24 1454 98.8 116 20 91/54 100 Venti Mask 50% 09/24 1256 98.4 116 22 92/53 97 Venti Mask 55% 09/24 1252 100.8 09/24 1219 100.8 123 15 78/51 81 Nasal 4.0L Cannula 09/24 1109 121 20 71/49 91 Nasal 2.0L Cannula 09/24 1053 Nasal 2.0L Cannula 09/24 1029 100.0 128 20 67/48 Intake & Output 09/24 1600 09/24 0800 09/24 0000 Intake Total Output Total 100 Balance -100 Output, Urine 100 Patient 63.503 kg Weight Physical Exam General Appearance No Acute Distress, Lethargic but Arousable Skin No Rashes HEENT Atraumatic, PERRLA Neck Supple, No LAD Cardiovascular Regular Rate, Normal S1, Normal S2, No Murmurs, Gallops, Rubs Lungs Clear to Auscultation Abdomen Soft, Diffusely Tender to Palpation, No Guarding or Rebound, Positive Bowel Sounds Neurological No Gross Focal Deficits Noted Extremities Right TMA, Dressings In Place on BLE Last 24 Hrs of Labs/[place]: Laboratory Tests 09/24/16 1155: Anion Gap 12, Estimated GFR 15 L, BUN/Creatinine Ratio 6.0 L, Glucose 112 H, Calcium 8.4, Total Bilirubin 0.3, AST 15 L, ALT 25, Alkaline Phosphatase 155 H , Troponin I 0.02, Total Protein 5.1 L, Albumin 2.1 L, Globulin 3.0, Albumin/ Globulin Ratio 0.7 L, CBC w Diff MAN DIFF ORDERED, RBC 3.85 L, MCV 90.4, MCH 28.8, RDW 20.0 H, MPV 7.8, Gran % 93.9 H, Lymphocytes % 3.8 L, Monocytes % 1.5 L, Eosinophils % 0.8, Basophils % 0 L, Absolute Granulocytes 19.0 H, Segmented Neutrophils 67, Band Neutrophils 24 H, Absolute Lymphocytes 0.8 L, Lymphocytes 4 L, Monocytes 3, Absolute Monocytes 0.3, Eosinophils 2, Absolute Eosinophils 0.2, Absolute Basophils 0, Platelet Estimate ADEQUATE, Hypochromic- Microcytic 2+, Poikilocytosis 1+, Anisocytosis 1+, PUBS MCHC 31.9 L, Random Vancomycin < 5.0, Urine Color YEL, Urine Clarity TURBD H, Urine pH 6.5, Ur Specific [place] 1.025, Urine Protein >=300 H, Urine Ketones TRACE H, Urine Nitrite NEG, Urine Bilirubin NEG, Urine Urobilinogen 0.2, Ur Leukocyte Esterase LARGE H, Ur Microscopic SEDIMENT EXAMINED, Urine WBC PACKD H, Micro UA Comment , Urine Hemoglobin LARGE H, Urine Glucose NEG Microbiology 09/24 2147 UPPER RESP: Surveillance Culture - RECD 09/24 2147 GI: Surveillance Culture - RECD 09/24 1245 BLOOD: Blood Culture - RECD 09/24 1210 STOOL: Clostridium difficile Toxin A & B - RES 09/24 1210 STOOL: Stool Culture - RES 09/24 1155 URINE ROUT: Urine Culture - RECD 09/24 1155 BLOOD: Blood Culture - RECD Diagnostic Data EKG Results Sinus tachycardia HR 123 RBBB Left axis deviation No significant change since previous tracing HR 475 CXR Results Interval placement of a left-sided central line is noted with its tip seen at the cavoatrial junction without any evidence of left-sided pneumothorax or any other significant change since 09/19/2016. Assessment/Plan Assessment: 75 y/o M with PMHx of IDDM, ESRD on HD and PVD who is admitted for severe sepsis of unclear etiology. Respiratory: #Acute hypoxemic respiratory failure: Placed on venti mask in the ED for hypoxemia. Likely secondary to suspected aspiration pneumonia. * Provide supplemental oxygen to keep SpO2 > 92%. * Monitor for respiratory distress given fluid resuscitation in the setting of ESRD on HD. Infectious Diseases: #Severe sepsis: Met SIRS criteria for sepsis on admission in the setting of fever (Tmax 100.8), tachycardia (HR 128), tachypnea (RR 22) and leukocytosis ( WBC 20.2) with bandemia (24). Consistent with severe sepsis in the setting of hypotension. Etiology is unclear but potential sources include the lungs, with special concern for aspiration pneumonia in the setting of AMS, hypoxemia and multiple episodes of recurrent pneumonia treated with several different courses of antibiotics although CXR is negative, UTI given pyuria although patient has had candiduria previously which was treated with fluconazole and felt to represent colonization, diarrhea given his recent abdominal pain, diarrhea and guaiac positive stools lower extremity ulcers although stool C. difficile was negative and line sepsis although there is no inflammation at RIJ site. * Admit to the ICU for hemodynamic monitoring. * Follow UCx and BCx. * CT Chest/Abdomen/Pelvis W/O IV Contrast ordered. * Attempt to collect sputum culture. * Start stress dose steroids hydrocortisone 50 mg IV BID. * Administer vancomycin 1 g IV today. Continue per dialysis protocol. * Start ceftazidime 1 g IV Q24H and Flagyl 500 mg IV Q8H. Cardiovascular: #Hypotension: Blood pressure was 67/48 on initial presentation but has improved after receiving 1 L NS bolus. Secondary to sepsis. P * Monitor hemodynamic status. * Strict I/Os. * Central line inserted in the ED. OK to give pressors per 's wishes. * Administer NS boluses as needed. * Start NS @ 100 cc/hr. Hematology: #Antiphospholipid syndrome: 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 Presented with supratherapeutic INR of 6.17. * Hold warfarin. * Monitor INR daily and resume warfarin when INR is no longer supratherapeutic. Metabolic: #IDDM: Found to be hypoglycemic at [facility] this morning. S/p glucagon x 2. * Endocrinology following. Appreciate their recs. * Accu-checks and Novolog Q4H SSI: for glucose 201-250 give 2 units of insulin, for 251-300 give 4 units, for 301-350 give 6 units and for 351-400 give 8 units. * Hold prior to admission Levemir in the setting of hypoglycemia. #ESRD: On HD Tues/Thurs/Sat. * Nephrology following. Appreciate their recs. * Plan for dialysis tomorrow. After that will resume Tues/Thur/Sat schedule. * Continue Epogen IV with dialysis. Alimentary: NPO pending swallow evaluation Neurologic: Lethargic * Monitor for mental status changes. DVT PPx: Warfarin CODE: DNR/DNI As Ranked By This Provider Problem List: 1. IDDM (insulin dependent diabetes mellitus) 2. Severe sepsis 3. ESRD (end stage renal disease) on dialysis Core Measures/Miscellaneous Acute Coronary Syndrome ACS Diagnosis: No Cerebrovascular Accident CVA/TIA Diagnosis: No Congestive Heart Failure CHF Diagnosis: No Venous Thromboembolism VTE Risk Factors: Acute medical illness, Age > 40, CHF or Resp failure, Immobility, paresis, [facility] d/t: Lower limb ischemia, Peripheral vascular Dx No VTE Pharm Prophylaxis d/t: No contraindications VTE Diagnosis: No VTE Type: NONE VTE Confirmed by (Test): NONE Severe Sepsis Severe Sepsis Present: Yes BC x2: Yes Lactic Acid x2: Yes IV ABX Broad Spectrum: Yes NS/LR Started: Yes Septic Shock Septic Shock Present: No Miscellaneous Documentation Attending Case Discussed With: SAM JACKSON MD Primary Care Physician: TAD CATALAN MD Patient sees these Specialists Freight Brakeman Efraín Mercedes MD Vascular surgeon Jitendra Pretty MD Sales Promotion Officer Sidney Kruse MD Primary Care Provider Eddi Hilton MD Level of Patient Care: Critical Care (CRI) [facility] 09/24/16 1313: Resident Review Statement Resident Statement: examined this patient, discussed with spring intern, agreed with spring intern, discussed with case mgmt, reviewed images Other Findings: 75-year-old male with PMH of antiphospholipid antibody syndrome Wwith chronic DVT, hypertension, diabetes, CKD stage V, severe peripheral vascular disease, left lower extremity necrotizing nonhealing ulcers status post debridement by Dr. pretty, crohns disease status post bowel resection and chronic prednisone treatment, kidney stones status post lithotripsy, transmetatarsal amputation of the right foot, femoropopliteal bypass surgery, admissions to [facility] in the past few months, discharged yesterday that is 23 September 2016 from [facility] after being treated for sinus tachycardia, metabolic encephalopathy secondary to hypoglycemia, and hypotension, was admitted at [facility] in April 2016, for hoarseness and stridor and he was found to have supraglottic edema, treated with Decadron, recent admission in 2016 when he was treated for sepsis and candiduria, treated with Vanc and ceftaz and fluconazole for 2 weeks, now presents with altered mental status, hypoglycemia and hypotension that he developed at [facility] around 6:40 am today. He received glucagon x 2 at the nursing care facility. The patient kept pointing towards his suprapubic region and complained of pain. Also has persistent cough, dry, no sputum. Denied SOB. CP. His , who was at [facility] also reported he had been complaining of nausea and abd pain since 2 days prior to this admission, while he was in the hospital. Also has diarrhoea. On admission the patient had a heart rate of 123, BP in 60s, fever of 100.8, oxygen saturation of 81% on 4 liters of oxygen, which not his baseline. On exam the patient was responsive and following commands but unable to verbalize history. He was answering questions by bodily gestures. Lungs clear on auscultation, left IJ in place (placed in the ED) Abd: mild tenderness in suprapubic region, BS+ Nuero: unable to talk (at baseline), follwing commands, macerator operator 5/5, moving both extremities but power 2-3/5 (at baseline) Ext: no leg edema, both legs wrapped in bandages due to chronic skin ulcers, left MTA, pulses faintly palpable, bruising on bilateral upper extremities Pertinent lab work shows a WBC count of 20.2 with bandemia 24, (WBC 7.8 on - day of discharge), Cr of 4 (due for HD today), LA 3.6, Alk Phos 155, AST/ ALT normal CXR negative for PNA Assesment: 1. SIRS/Severe Sepsis secondary to ?PNA vs UTI vs Abdominal process 2. Hypoxic Respiratory Failure 3. Superatherapeutic INR likely secondary to being on warfarin and sepsis 4. Hypoglycemia 5. ESRD on HD TTS 6. DMT2 7. History of Crohn's (no evidence with) Plan: - Admit to the ICU 1. SIRS/Severe Sepsis secondary to ?PNA vs UTI vs Abdominal process: - The patient is DNI/DNR with recurrent admission but the agreed to a central line and pressors today, has severe sepsis, hypotension responsive to fluids, and hypoxic respiratory failure, hence will require closer monitoring in the ICU setting - He meets criteria for SIRS with a temp of 100.4, WBC 20.2, tachycardia of 123, source unknown but could be PNA vs Urine. CXR does not show any evidence of PNA but he has a historyof unusual presentation with negative CXR but positive CT chest - He has a history of dirty urine and growing yeast in the past, treated for candiduria with Fluconazole for 2 weeks. - Will start on broad spectrum ABX including Vanc and Caftaz - Will follow Bld, Urine Cx and C.Diff - Will get urgent CT/Abd/Pelvis CT without IV contrast as the patient has ESRD with a Cr of 4 today - May consider pressors if becomes hypotensive despite fluids, although responded today to even one bolus of NS - As the patient has been on chronic steroids, he may benefit from stress dose steroids that is loading with hydrocort 100 x 1, followed by 50 mg Q8 (instead of PO pred) - Start on maintainence fluids NS @100cc/hr - Will hold coreg - ID consult 2. Hypoxic Respiratory Failure: - ?2/2 to PNA. The patient may have aspirated. He is supposed to be on thickedn liquids but received thin liquids - Also has a history of aspiration and coughs whenever he eats - Started on VM, may consider BiPAP if needed, or witch to nasal cannula as tolerated - Will require close mnitoring but no intubation - Pulm CC consult 3. Superatherapeutic INR likely secondary to being on warfarin and sepsis: - INR 6 today - Will hold couamdin (that he takes for Antiphopholipid syndrome) - consider reversing if he bleed - Monitor daily INR 4. Hypoglycemia: - WIll hold his levemir - Will keep on ISS - Monitor Accucheks 5. ESRD on HD TTS: - Nephro consult - Due to HD today but will defer to Nephro - Does not seem to be in metabolic/remic encephalopathy today to require urgent dialysis - will continue with nephrovits, sevelamir for phos >3.5 and iron 6. DMT2: - Hold Levemir - ISS 7. Will keep NPO for now as he has AMS, has resp distress, and history of aspiration - Swallow eval in am 8. Pain pathway: Mild: Tylenol PO Mod: Acetaminphen IV Severe: IV MOrphine 9. DVT PPx: INR 6, on coumadin at home 10. Code Status: DNI/DNR, okay for line and pressors (has a left IJ placed in the ED) Case discussed with Dr. Maria Eugenia JACKSON MD,SAM 09/24/16 1605: Core Measures/Miscellaneous Venous Thromboembolism VTE Prophylaxis Ordered Inpt: Pharm- Warfarin (supratherapeutic) Attending MD Review Statement Attending Statement Attending MD Statement: examined this patient, discuss w/resident/PA/REAL ESTATE TRANSACTION COORDINATOR, agreed w/resident/PA/REAL ESTATE TRANSACTION COORDINATOR, discussed with family, reviewed EMR data (avail), discussed with nursing, discussed with case mgmt, reviewed images, amended to note Attending Assessment/Plan: Sam Morgan M.D. have examined this patient, reviewed available EMR data, personally reviewed images, discussed with resident/PA/REAL ESTATE TRANSACTION COORDINATOR, discussed management plan with housestaff and nursing staff, discussed managment plan all of healthcare providers, discussed management plan with patient and/or family, agreed with resident/PA/REAL ESTATE TRANSACTION COORDINATOR. The past history and parts of the chart have been autopopulated. Impression 75 year old man - Severe sepsis - unclear source, however an abdominal process is a possibility, possible pneumonia - recent hypoglycemic episodes - hypotension maintained with iv fluid administration - not in shock - ESRD on HD - Crohn's disease - antiphospholipid syndrome - coumadin - possible adrenal insufficiency Plan Respiratory - awaiting imaging - o2 supplementation ID - ID consultation is appreciated - vancomycin, ceftazadime, flagyl - ct chest, abdomen, pelvis imaging - f/u all cultures CVS - would repeat ECHO - monitor hemodynamics Heme - monitor cbc, coags Metabolic - ins/outs - nephrology consultation is appreciated - stress dose steroids - hydrocortisone 50mg iv q8h - endocrinology consultation in am Alimentary - NPO Neuro - monitor mental status, awake DVT prophylaxis at all times TTS 45 min
--- NOTE | 2016-09-24 13:15 | NUR ---
IV FLAGYL INFUSING NOW. PT HAD ANOTHER EPISODE OF INCONTINENT STOOL. SISSY CARE PROVIDED. BARRIER CREAM APPLIED. PT REPOSITIONED IN BED.
--- NOTE | 2016-09-24 13:38 | NUR ---
HOUSE STAFF AT BEDSIDE.
--- NOTE | 2016-09-24 13:58 | NUR ---
PT NOTED TO BE ALERT TO VERBAL STIMULI, ABLE TO HOLD SMALL CONVERSATION AND ANSWER QUESTIONS APPROPRIATELY.
--- NOTE | 2016-09-24 14:58 | NUR ---
PT HAD EPISODE OF INCONTINENT DIARRHEA, SISSY CARE PROVIDED AND PT REPOSITIONED.
--- NOTE | 2016-09-24 15:10 | Cons- Nephrology ---
General Information and HPI Consulting Request Date of Consult: 09/24/16 Requested By: HAWK JACKSON MD Reason for Consult: ESRD management Source of Information: family, old records Exam Limitations: unable to give history History of Present Illness: The patient is a 75-year-old male with a past medical history most significant for end-stage renal disease on hemodialysis, peripheral vascular disease with chronic bilateral lower extremity ulcers, DVT on Coumadin, IDDM, nephrolithiasis , and Crohn's disease status post bowel resection presents with altered mental status, hypoglycemia, and diarrhea. She was recently admitted to [facility] from 09/19-09/23 for hypoglycemia and resultant confusion. Insulin was adjusted by endocrine. Of note, he was noted to have asymptomatic sinus tachycardia thought to be secondary to lower extremity pain as well as holding his beta randy. His beta randy was reintroduced. The patient presents again for hypoglycemia as well as altered mental status and diarrhea. In the ED, the patient was found to be very hypotensive and was started on IV fluid. A left subclavian central line was placed. Started on empiric antibiotics after noting particulate urine. Labs notable for a white blood cell count of 20.2 which is significantly elevated compared to September 21 when it was 7.9. His potassium is 5.0. Lactate was 3.6. UA with "packed" WBC. When I saw the patient, he is with his . He was unable to contribute to the history. Patient's said though that he was in significantly better shape than when he first came in. The patient gets his hemodialysis at the [facility] unit. He gets his dialysis Friday and Friday. His last dialysis session was Friday while in the hospital. His treatment time is 195 minutes. His target weight is 65 kg. He has a right chest wall tunneled dialysis catheter as his right upper arm AV fistula failed. His potassium as an outpatient runs in the high 4's. OF NOTE, THE PATIENT OFTEN RUNS A LOW BLOOD PRESSURE WITH DIALYSIS - SBP CAN BE ANYWHERE FROM 80'S-110'S AND WILL DROP DURING DIALYSIS. Allergies/Medications Allergies: Coded Allergies: Sulfa (Sulfonamide Antibiotics) (Mild, HIVES 06/15/16) Home Med List: Aspirin (Ecotrin*) 81 MG TABLET. 1 TAB PO QPM HEART HEALTH (Reported) Atorvastatin Calcium 40 MG TABLET 1 TAB PO QPM CHOLESTEROL (Reported) B Complex & C No.20/Folic Acid (Nephrocaps Softgel) 1 MG CAPSULE 1 CAP PO DAILY SUPPLEMENT Calcium Carbonate/Vitamin D3 (Os-Vishal 500+D3 Caplet) 500 MG-600 TABLET 1 TAB PO TID SUPPLEMENT (Reported) Carvedilol (Coreg) 3.125 MG TABLET 6.25 MG PO BID high heart rate Please discontinue if blood pressure less than systolic 90 Cyanocobalamin (Vitamin B-12) (Vitamin B-12) 500 MCG TABLET 2 TAB PO DAILY ANEMIA (Reported) Ferrous Sulfate 325 MG (65 MG IRON) TABLET 1 TAB PO QPM SUPPLEMENT (Reported) Guaifenesin (Mucinex) 600 MG TAB.ER.12H 1 TAB PO BID cONGESTION Insulin Aspart (Novolog) 100 UNIT/ML VIAL 0 UNITS SC TIDAC diabetes Do not give novolog unless patient eats! Give novolog only after assessing his food intake. Blood sugar Less than 150: no insulin 151-200: give 2 units 201-250: give 3 units 251-300: give 4 units 301-350: Give 5 units 351-400: give 6 units More than 400: give 6 units, call Insulin Detemir (Levemir) 100 UNIT/ML VIAL 3 UNITS SC DAILY diabetes please follow up with Dr. Hilton in 1 week Nephro-Vitamins (Nephro-Arthur Tablet) 0.8 MG TABLET 1 TAB PO DAILY kidney Omeprazole 20 MG CAPSULE. 1 CAP PO DAILY GI (Reported) Oxycodone HCl/Acetaminophen (Percocet 5-325 MG Tablet) 5 MG-325 MG TABLET 2 TAB PO Q8P PRN PAIN SCALE 4-6 (MODERATE) Prednisone 5 MG TABLET 1 TAB PO DAILY Adrenals arenal insufficinecy Sevelamer Carbonate (Renvela) 800 MG TABLET 1 TAB PO TIDWM KIDNEYS (Reported) RESTART WHEN PHOS LEVEL >3.5 Sodium Chloride (Saline Nasal [place]) 0.65 % SPRAY 1 SPRAY NASB 4 TIMES/DAY PRN dRY NOSE Warfarin Sodium (Coumadin) 1 MG TABLET 1 TAB PO Q48 BLOOD THINNER (Reported) Current Medications: Current Medications Sig/Kailash Start time Last Medication Dose Route Stop Time Status Admin Acetaminophen 650 MG Q6P PRN 09/24 1400 AC PO Acetaminophen 1,000 MG Q6P PRN 09/24 1400 AC IV Acetaminophen 0 .STK-MED ONE 09/24 1237 DC IV Acetaminophen 1,000 MG ONCE ONE 09/24 1230 DC 09/24 N/A 1 UNIT IV 09/24 1244 1252 Ceftazidime 1,000 MG Q12 09/24 1502 UNVr IV Ceftriaxone Sodium 1,000 MG DAILY 09/25 1000 CAN IV Ceftriaxone Sodium 0 .STK-MED ONE 09/24 1237 DC .ROUTE Ceftriaxone Sodium 1,000 MG ONCE ONE 09/24 1145 DC 09/24 IV 09/24 1146 1252 Metronidazole 500 MG ONCE ONE 09/24 1245 DC 09/24 N/A 1 UNIT IV 09/24 1344 1315 Morphine Sulfate 1 MG Q6P PRN 09/24 1415 AC IV Sodium Chloride 1,000 ML Q10H 09/24 1445 AC IV Sodium Chloride 1 SPRAY 4 TIMES/DAY PRN 09/24 1445 AC CARLITOS Sodium Chloride 1,000 ML BOLUS ONE 09/24 1145 DC IV 09/24 1244 Sodium Chloride 1,000 ML BOLUS ONE 09/24 1045 DC 09/24 IV 09/24 1144 1252 Vancomycin HCl 1,000 MG DAILY 09/24 1500 UNir Dextrose/Water 250 ML IV Review of Systems Review of Systems: Pt unable to complete ROS 2/2 lethargy Past History Travel History Traveled to [place] past 21 day No Medical History Neurological: NONE EENT: NONE Cardiovascular: PVD, DVT Respiratory: pneumonia Gastrointestinal: Crohn's disease Hepatic: NONE Renal: nephrolithiasis, CKD Musculoskeletal: VASCULAR OCCLUSION RIGHT LEG RIGHT PATELLA FRACTURE WITH orif NON HEALING WOUNDS R. TOE AMPUTATIONS Psychiatric: NONE Endocrine: diabetes Blood Disorders: anemia, coagulopathy, DVT (RUE and RLE), antiphosphlipid syndrome Cancer(s): NONE [employer] AS[employer]ER/Reproductive: NONE Surgical History Surgical History: colon resection, knee replacement (left), LEFT HIP ORIF status post right leg bypass status post right patellar ORIF status post right TMA status post lithotripsy and stent placements Family History Relations & Conditions If Any: FATHER Antiphospholipid syndrome FH: diabetes mellitus MOTHER FH: Crohn's disease Psychosocial History Who Do You Live With? spouse Services at Home: None Primary Language: Maltese Functional Ability ADLs Independent: dressing, eating, toileting, bathing. Ambulation: walker IADLs Needs Assist: shopping, housework, finances, food prep, telephone, transportation, medication admin. Exam & Diagnostic Data Vital Signs and I&O Vital Signs Date Time Temp Pulse Resp B/P Pulse O2 O2 Flow FiO2 Ox Delivery Rate 09/24 1454 98.8 116 20 91/54 100 Venti Mask 50% 09/24 1256 98.4 116 22 92/53 97 Venti Mask 55% 09/24 1252 100.8 09/24 1219 100.8 123 15 78/51 81 Nasal 4.0L Cannula 09/24 1109 121 20 71/49 91 Nasal 2.0L Cannula 09/24 1053 Nasal 2.0L Cannula 09/24 1029 100.0 128 20 67/48 Intake & Output 09/24 1600 09/24 0400 09/23 1600 09/23 0400 09/22 1600 09/22 0400 Intake Total Output Total 100 Balance -100 Output, Urine 100 Patient 140 lb Weight Physical Exam: Gen - ill appearing Head - NCAT Eyes - anicteric sclera, EOMI Neck - supple CV - RRR Chest - clear anteriorly Abd - soft Upper ext - no edema Lower ext - no edema Skin - no rash Neuro - lethargic Access - R chest wall tunneled dialysis catheter Results Pertinent Lab Results: Laboratory Tests 09/24 09/24 1155 1155 Chemistry Sodium (137 - 145 mmol/L) 134 L Potassium (3.5 - 5.1 mmol/L) 5.0 Chloride (98 - 107 mmol/L) 101 Carbon Dioxide (22 - 30 mmol/L) 21 L Anion Gap (5 - 16) 12 BUN (9 - 20 mg/dL) 24 H Creatinine (0.7 - 1.2 mg/dL) 4.0 H Estimated GFR (>60 ml/min) 15 L BUN/Creatinine Ratio (7 - 25 %) 6.0 L Glucose (65 - 99 mg/dL) 112 H Lactic Acid (0.7 - 2.1 mmol/L) 3.6 H Calcium (8.4 - 10.2 mg/dL) 8.4 Total Bilirubin (0.2 - 1.3 mg/dL) 0.3 AST (17 - 59 U/L) 15 L ALT (21 - 72 U/L) 25 Alkaline Phosphatase (< 127 U/L) 155 H Troponin I (<0.11 ng/ml) 0.02 Total Protein (6.3 - 8.2 g/dL) 5.1 L Albumin (3.5 - 5.0 g/dL) 2.1 L Globulin (1.9 - 4.2 gm/dL) 3.0 Albumin/Globulin Ratio (1.1 - 2.2 %) 0.7 L Hematology CBC w Diff MAN DIFF ORDERED WBC (4.8 - 10.8 /CUMM) 20.2 H RBC (4.70 - 6.10 /CUMM) 3.85 L Hgb (14.0 - 18.0 G/DL) 11.1 L Hct (42 - 52 %) 34.8 L MCV (80.0 - 94.0 FL) 90.4 MCH (27.0 - 31.0 PG) 28.8 RDW (11.5 - 14.5 %) 20.0 H Plt Count (130 - 400 /CUMM) 353 MPV (7.4 - 10.4 FL) 7.8 Gran % (42.2 - 75.2 %) 93.9 H Lymphocytes % (20.5 - 51.1 %) 3.8 L Monocytes % (1.7 - 9.3 %) 1.5 L Eosinophils % (0 - 5 %) 0.8 Basophils % (0.0 - 2.0 %) 0 L Absolute Granulocytes (1.4 - 6.5 /CUMM) 19.0 H Segmented Neutrophils (42.2 - 75.2 %) 67 Band Neutrophils (0.0 - 5.0 %) 24 H Absolute Lymphocytes (1.2 - 3.4 /CUMM) 0.8 L Lymphocytes (20.5 - 51.1 %) 4 L Monocytes (1.7 - 9.3 %) 3 Absolute Monocytes (0.10 - 0.60 /CUMM) 0.3 Eosinophils (0 - 5.0 %) 2 Absolute Eosinophils (0.0 - 0.7 /CUMM) 0.2 Absolute Basophils (0.0 - 0.2 /CUMM) 0 Platelet Estimate (ADEQUATE) ADEQUATE Hypochromic-Microcytic 2+ Poikilocytosis 1+ Anisocytosis 1+ PUBS MCHC (33.0 - 37.0 G/DL) 31.9 L Urines Urine Color (YEL,AMB,STR) YEL Urine Clarity (CLEAR) TURBD H Urine pH (5.0 - 8.0) 6.5 Ur Specific [place] (1.001 - 1.035) 1.025 Urine Protein (NEG,<30 MG/DL) >=300 H Urine Ketones (NEG) TRACE H Urine Nitrite (NEG) NEG Urine Bilirubin (NEG) NEG Urine Urobilinogen (0.1 - 1.0 EU/dl) 0.2 Ur Leukocyte Esterase (NEG) LARGE H Ur Microscopic SEDIMENT EXAMINED Urine WBC (0 - 2 /HPF) PACKD H Micro UA Comment Urine Hemoglobin (NEG) LARGE H Urine Glucose (N MG/DL) NEG Imaging/Other Studies: XRY-PORTABLE CHEST XRAY EXAMINATION: XR PORTABLE CHEST CLINICAL INFORMATION: Status post left subclavian line placement. COMPARISON: Chest x-ray done on 09/19/2016. TECHNIQUE: Portable AP view of the chest was obtained. FINDINGS: Interval placement of a left-sided subclavian line is noted. The tip is projecting at the level of the cavoatrial junction. There is no left-sided pneumothorax present. Both lung bases are symmetrically expanded and remain clear. The right-sided central line is still visualized and appears unchanged. Heart and mediastinal silhouette is within normal limits. Visualized upper abdomen is unremarkable. IMPRESSION: Interval placement of a left-sided central line is noted with its tip seen at the cavoatrial junction without any evidence of left-sided pneumothorax or any other significant change since 09/19/2016. Assessment/Plan Assessment/Recommendations Assessment: ESRD - the patient is due for his routine dialysis today. However, he is volume depleted in the setting of diarrhea and infection. There is no acute metabolic indication for dialysis today and I prefer that he be hemodynamically stabilize prior to putting him on the machine, especially since he has a tendency to drop his blood pressure with dialysis. We'll tentatively plan for dialysis tomorrow morning. Diarrhea -he has a history of Crohn's disease although within the setting of an elevated white blood cell count, his diarrhea should probably be considered infectious until proven otherwise. ?UTI -urinalysis suggested a urinary tract infection with cultures pending. He is on empiric antibiotics. Anemia - On Epogen 5000U TIW with dialysis as well as venofer. Will need to hold venofer in the setting of presumed infection. Hypoglycemia - Insulin may need to be further titrated. Recommendations: -Will plan for dialysis tomorrow -After tomorrow's HD, will maintain //Fri schedule -Cont Epogen with dialysis -Fluid resuscitation as you are - carefully monitor respiratory status -Ideally should have non-subclavian line placed (prone to developing stenosis) Please call [phone] with ?'s
--- NOTE | 2016-09-24 15:47 | Admission Certification ---
Admission Certification Certification Statement - As attending physician, I certify that at the time of - admission, based on clinical presentation, severity of - symptoms, need for further diagnostic testing and - therapeutic interventions, and risk of adverse outcomes - without in-hospital treatment, in my clinical assessment, - this patient requires an acute hospital stay for a minimum - of two nights or longer. I have also considered psychsocial - factors such as support system, advanced age, financial - issues, cognitive issues, and failed out-patient treatments, - past re-admission history, safety of patient, and lack of - compliance as applicable. Specific rationale supporting this admission is: hypotension, severe sespis icu level of care
--- NOTE | 2016-09-24 16:05 | NUR ---
[facility] INFUSING NOW.
--- NOTE | 2016-09-24 16:15 | NUR ---
PT HAS MULTIPLE WOUNDS ON BILATERAL LEGS. 1 OPEN WOUND TO MEDIAL UPPER LEFT THIGH, HEALING TISSUE NOTED, NO ACTIVE BLEEDING, NO TUNNELING NOTED- XEROFORM AND KERLEX APPLIED. 1 LARGE OPEN WOUND TO LEFT LATERAL CALF AREA, PINK, HEALING TISSUE NOTED, NO SIGNS OF INFECTION, NO TUNNELING NOTED- XEROFORM AND KERLEX REPLACED. HEAL OF L AND R FEET NECROTIC, FOAM BOOTS (FROM ECF) REMAIN IN PLACE. 1 WOUND TO R MEDIAL LOWER EXTREMETY NOTED, HEALING TISSUE NOTED, XEROFORM AND KERLEX APPLIED.
--- NOTE | 2016-09-24 16:15 | NUR ---
DR. QUIJANO AT BEDSIDE FOR EVAL.
--- NOTE | 2016-09-24 16:33 | NUR ---
REPEAT LACTIC ACID DRAWN AND SENT TO LAB.
--- NOTE | 2016-09-24 16:38 | NUR ---
[facility] ORDER CHANGED IN THE EMAR AFTER DOSE HAD ALREADY BEEN AMINISTERED; PER PHARMACIST, HE HAS A PAGE OUT TO RESIDENT TO FIX ORDERS IN THE COMPUTER.
[2016-09-24] MEDS ORDERED: PREDNISONE5 M1 PO ×2 (16:54→16:56)
[2016-09-24] MEDS ORDERED: MUCINEX600 M1 PO (16:54)
[2016-09-24] MEDS ORDERED: COREG3.125 MG PO (16:54)
--- NOTE | 2016-09-24 17:07 | Cons- Infect Disease ---
General Information and HPI Consulting Request Date of Consult: 09/24/16 Requested By: Dr. Del Cid Reason for Consult: Rule out sepsis Source of Information: patient, old records Exam Limitations: clinical condition History of Present Illness: This is a 75-year-old man with diabetes, end-stage renal disease, begun on dialysis several months prior to admission via a right IJ Mj catheter, peripheral vascular disease, status post right TMA, putative Crohn's disease, with chronic diarrhea, for which he is maintained on a low dose of prednisone, antiphospholipid syndrome, with a chronic DVT of the right lower extremity and a more recently diagnosed DVT of the right upper extremity, with several nonhealing ulcers of the lower extremities, affecting both calves and the left thigh, status post multiple debridements and resulting in chronic pain, hospitalized 3 months prior to admission for a 2 month stay, during which he was treated with several courses of antibiotics for pneumonia and 1 course of antifungal therapy for candiduria, with a failed attempt at creation of an AV fistula, hospitalized twice over the last month, initially for hypotension/ sepsis, with a negative HIDA scan and negative stool C. difficile toxin and PCR tests, ultimately felt to have a pneumonia, which was treated with Vancomycin and Ceftazidime for 1 week, most recently hospitalized with hypoglycemia, with no suspicion for infection, readmitted today, just 1 day after discharge, after he was sent to the emergency room from the [facility] with hypoglycemia, hypotension and altered mental status. On arrival he was febrile to 100.8, with tachycardia and a blood pressure of 67/48. His stools were guaiac positive. A subclavian central line was placed and he was given 1 L of fluid, with improvement in his blood pressure, and Ceftriaxone and Flagyl. At present he complains of abdominal pain and diarrhea. He denies any shortness of breath, cough or chest pain. Allergies/Medications Allergies: Coded Allergies: Sulfa (Sulfonamide Antibiotics) (Mild, HIVES 06/15/16) Home Med List: Aspirin (Ecotrin*) 81 MG TABLET. 1 TAB PO QPM HEART HEALTH (Reported) Atorvastatin Calcium 40 MG TABLET 1 TAB PO QPM CHOLESTEROL (Reported) B Complex & C No.20/Folic Acid (Nephrocaps Softgel) 1 MG CAPSULE 1 CAP PO DAILY SUPPLEMENT Calcium Carbonate/Vitamin D3 (Os-Vishal 500+D3 Caplet) 500 MG-600 TABLET 1 TAB PO TID SUPPLEMENT (Reported) Carvedilol (Coreg) 3.125 MG TABLET 6.25 MG PO BID high heart rate Please discontinue if blood pressure less than systolic 90 Cyanocobalamin (Vitamin B-12) (Vitamin B-12) 500 MCG TABLET 2 TAB PO DAILY ANEMIA (Reported) Ferrous Sulfate 325 MG (65 MG IRON) TABLET 1 TAB PO QPM SUPPLEMENT (Reported) Guaifenesin (Mucinex) 600 MG TAB.ER.12H 1 TAB PO BID cONGESTION Insulin Aspart (Novolog) 100 UNIT/ML VIAL 0 UNITS SC TIDAC diabetes Do not give novolog unless patient eats! Give novolog only after assessing his food intake. Blood sugar Less than 150: no insulin 151-200: give 2 units 201-250: give 3 units 251-300: give 4 units 301-350: Give 5 units 351-400: give 6 units More than 400: give 6 units, call MD Insulin Detemir (Levemir) 100 UNIT/ML VIAL 3 UNITS SC DAILY diabetes please follow up with Dr. Hilton in 1 week Nephro-Vitamins (Nephro-Arthur Tablet) 0.8 MG TABLET 1 TAB PO DAILY kidney Omeprazole 20 MG CAPSULE. 1 CAP PO DAILY GI (Reported) Oxycodone HCl/Acetaminophen (Percocet 5-325 MG Tablet) 5 MG-325 MG TABLET 2 TAB PO Q8P PRN PAIN SCALE 4-6 (MODERATE) Prednisone 5 MG TABLET 1 TAB PO DAILY Adrenals arenal insufficinecy Sevelamer Carbonate (Renvela) 800 MG TABLET 1 TAB PO TIDWM KIDNEYS (Reported) RESTART WHEN PHOS LEVEL >3.5 Sodium Chloride (Saline Nasal [place]) 0.65 % SPRAY 1 SPRAY NASB 4 TIMES/DAY PRN dRY NOSE Warfarin Sodium (Coumadin) 1 MG TABLET 1 TAB PO Q48 BLOOD THINNER (Reported) Past History Travel History Traveled to [place] past 21 day No Medical History Neurological: NONE EENT: NONE Cardiovascular: PVD, DVT Respiratory: pneumonia Gastrointestinal: Crohn's disease Hepatic: NONE Renal: nephrolithiasis, CKD Psychiatric: NONE Endocrine: diabetes Blood Disorders: anemia, coagulopathy, DVT (RUE and RLE), antiphosphlipid syndrome Cancer(s): NONE [place] TIER/Reproductive: NONE History of MRSA: No History of VRE: Yes History of CDIFF: No Surgical History Surgical History: colon resection, knee replacement (left), LEFT HIP ORIF status post right leg bypass status post right patellar ORIF status post right TMA status post lithotripsy and stent placements Family History Relations & Conditions If Any: FATHER Antiphospholipid syndrome FH: diabetes mellitus MOTHER FH: Crohn's disease Psychosocial History Who Do You Live With? spouse Services at Home: None Primary Language: Bel[place]an Functional Ability ADLs Independent: dressing, eating, toileting, bathing. Ambulation: walker IADLs Needs Assist: shopping, housework, finances, food prep, telephone, transportation, medication admin. Review of Systems Review of Systems All Other Systems: Reviewed and Negative Exam & Diagnostic Data Last 24 Hrs of Vital Signs/I&O Vital Signs Date Time Temp Pulse Resp B/P Pulse O2 O2 Flow FiO2 Ox Delivery Rate 09/24 1634 97.0 09/24 1625 97.0 109 20 109/57 100 Venti Mask 50% 09/24 1454 98.8 116 20 91/54 100 Venti Mask 50% 09/24 1256 98.4 116 22 92/53 97 Venti Mask 55% 09/24 1252 100.8 09/24 1219 100.8 123 15 78/51 81 Nasal 4.0L Cannula 09/24 1109 121 20 71/49 91 Nasal 2.0L Cannula 09/24 1053 Nasal 2.0L Cannula 09/24 1029 100.0 128 20 67/48 Intake & Output 09/24 1600 09/24 0800 09/24 0000 Intake Total Output Total 100 Balance -100 Output, Urine 100 Patient 140 lb Weight Physical Exam Other Physical Findings: He is lethargic but easily arousable, on a ventimask, in no acute distress. MAXIMUM TEMPERATURE 100.8. Skin reveals no rash. HEENT exam is negative. Neck is supple with no adenopathy; right IJ Mj catheter with no inflammation at the site; left subclavian catheter in place. Lungs decreased breath sounds both bases. Heart regular rhythm with no murmur. Abdomen is soft, tender on palpation diffusely, with no guarding or rebound, positive bowel sounds. Back no CVA tenderness. Extremities dressings intact over the left and right calf ulcers and left thigh ulcer; bilateral heel stage II decubiti. Neuro is without focality. Can catheter is in place. Last 24 Hours of Lab Results: Laboratory Tests 09/24 09/24 09/24 1630 1155 1155 Chemistry Sodium (137 - 145 mmol/L) 134 L Potassium (3.5 - 5.1 mmol/L) 5.0 Chloride (98 - 107 mmol/L) 101 Carbon Dioxide (22 - 30 mmol/L) 21 L Anion Gap (5 - 16) 12 BUN (9 - 20 mg/dL) 24 H Creatinine (0.7 - 1.2 mg/dL) 4.0 H Estimated GFR (>60 ml/min) 15 L BUN/Creatinine Ratio (7 - 25 %) 6.0 L Glucose (65 - 99 mg/dL) 112 H Lactic Acid (0.7 - 2.1 mmol/L) Pending 3.6 H Calcium (8.4 - 10.2 mg/dL) 8.4 Total Bilirubin (0.2 - 1.3 mg/dL) 0.3 AST (17 - 59 U/L) 15 L ALT (21 - 72 U/L) 25 Alkaline Phosphatase (< 127 U/L) 155 H Troponin I (<0.11 ng/ml) 0.02 Total Protein (6.3 - 8.2 g/dL) 5.1 L Albumin (3.5 - 5.0 g/dL) 2.1 L Globulin (1.9 - 4.2 gm/dL) 3.0 Albumin/Globulin Ratio (1.1 - 2.2 %) 0.7 L Hematology CBC w Diff MAN DIFF ORDERED WBC (4.8 - 10.8 /CUMM) 20.2 H RBC (4.70 - 6.10 /CUMM) 3.85 L Hgb (14.0 - 18.0 G/DL) 11.1 L Hct (42 - 52 %) 34.8 L MCV (80.0 - 94.0 FL) 90.4 MCH (27.0 - 31.0 PG) 28.8 RDW (11.5 - 14.5 %) 20.0 H Plt Count (130 - 400 /CUMM) 353 MPV (7.4 - 10.4 FL) 7.8 Gran % (42.2 - 75.2 %) 93.9 H Lymphocytes % (20.5 - 51.1 %) 3.8 L Monocytes % (1.7 - 9.3 %) 1.5 L Eosinophils % (0 - 5 %) 0.8 Basophils % (0.0 - 2.0 %) 0 L Absolute Granulocytes (1.4 - 6.5 /CUMM) 19.0 H Segmented Neutrophils (42.2 - 75.2 %) 67 Band Neutrophils (0.0 - 5.0 %) 24 H Absolute Lymphocytes (1.2 - 3.4 /CUMM) 0.8 L Lymphocytes (20.5 - 51.1 %) 4 L Monocytes (1.7 - 9.3 %) 3 Absolute Monocytes (0.10 - 0.60 /CUMM) 0.3 Eosinophils (0 - 5.0 %) 2 Absolute Eosinophils (0.0 - 0.7 /CUMM) 0.2 Absolute Basophils (0.0 - 0.2 /CUMM) 0 Platelet Estimate (ADEQUATE) ADEQUATE Hypochromic-Microcytic 2+ Poikilocytosis 1+ Anisocytosis 1+ PUBS MCHC (33.0 - 37.0 G/DL) 31.9 L Urines Urine Color (YEL,AMB,STR) YEL Urine Clarity (CLEAR) TURBD H Urine pH (5.0 - 8.0) 6.5 Ur Specific [place] (1.001 - 1.035) 1.025 Urine Protein (NEG,<30 MG/DL) >=300 H Urine Ketones (NEG) TRACE H Urine Nitrite (NEG) NEG Urine Bilirubin (NEG) NEG Urine Urobilinogen (0.1 - 1.0 EU/dl) 0.2 Ur Leukocyte Esterase (NEG) LARGE H Ur Microscopic SEDIMENT EXAMINED Urine WBC (0 - 2 /HPF) PACKD H Micro UA Comment Urine Hemoglobin (NEG) LARGE H Urine Glucose (N MG/DL) NEG Last 24 Hours of [place] Results: Blood cultures 2 September 24 pending Stool C. difficile September 24 negative Urine culture September 24 pending Diagnostic Data Recent Imaging Findings: Chest x-ray September 24, personally reviewed, negative Assessment/Plan Assessment/Plan Impression: This is a 75-year-old man with diabetes, end-stage renal disease, maintained on dialysis, putative Crohn's disease, maintained on steroids, with chronic diarrhea, antiphospholipid syndrome, maintained on Coumadin, peripheral vascular disease, with chronic nonhealing bilateral lower extremity ulcers, requiring debridement in the past, status post several hospitalizations over the past 3 months and treated for presumed aspiration pneumonia on several occasions, admitted today after found to be hypoglycemic, hypotensive, and with an altered mental status at the group home and found on admission to have guaiac positive diarrhea, a low-grade fever and leukocytosis. His presentation is consistent with severe sepsis. He has several possible sources including the lungs, with concern of aspiration pneumonia given the report of an altered mental status, though his chest x-ray is negative, the right IJ Mj catheter, though there is no inflammation at the site, the abdomen, with guaiac positive stools, suggesting possible ischemic colitis, or C. difficile, though the toxin test is negative, or a flareup of his inflammatory bowel disease, though this diagnosis has been in question, the urinary tract, with pyuria, though his previous urine cultures have grown Vanita, which, though treated in the past, is felt to most likely represent colonization, and the lower extremity ulcers, though these are not felt to appear infected. He will need to be covered broadly empirically pending cultures and further evaluation. Of note his blood pressure has improved with IV fluids in the ER. Suggestion: 1. CT of the chest, abdomen and pelvis 2. Follow-up recent blood and urine cultures 3. Attempt to obtain a sputum culture 4. Consider need for stress dose steroids 5. Would begin Vancomycin 1 g IV 1, Ceftazidime 1 g IV every 24 hours and Flagyl 500 mg IV every 8 hours pending above Consult Acknowledgment - Thank you for your consult request.
--- NOTE | 2016-09-24 17:25 | NUR ---
CRITICAL TEST RESULTS [id number] BENJAMIN SMITH 75 M TESTS AND RESULTS: LACTIC ACID 2.9 Results received and read back by: GAUTAM SRINIVASAN Results received date and time: 09/24/16 1725 The following provider was notified of the results, and read the results back: DR. LOYA Notified date and time: 09/24/16 at 1731
--- NOTE | 2016-09-24 18:05 | NUR ---
DR. JACKSON AT BEDSIDE FOR EVAL.
--- NOTE | 2016-09-24 18:59 | CT SCAN REPORT ---
EXAMINATION: CT ABD PELVIS W/O IV CONTRAS, CT CHEST WO IV CONTRAST CLINICAL INFORMATION: 75-year-old male patient with leukocytosis. Shortness of breath. Respiratory distress. Fever. Possible aspiration. COMPARISON: Chest x-rays done 08/28/2016 and 09/02/2016. The last chest x-ray done 09/19/2016. (No pneumonia). CT of the abdomen done 08/28/2016. (Hydropic gallbladder with cholelithiasis). Ultrasound the abdomen done 08/29/2016. (Hydrops and cholelithiasis). HIDA scan on 08/30/2016. (Patent cystic duct). CT of the abdomen on 09/02/2016. (Hydrops of the gallbladder and cholelithiasis. Complicated left renal cyst, right lower lobe opacity and left pleural effusion). TECHNIQUE: Axial scans of the chest, abdomen, and pelvis with coronal and sagittal reformats obtained at the acquisition workstation. 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 A dual-lumen dialysis catheter and a left total hip replacement. A left subclavian catheter is directed into the SVC. The abdomen is relatively gasless. Reexamination shows bilateral lower lobe areas of patchy consolidation and bronchial wall thickening. This has progressed since September 02 and certainly could represent changes from repeated aspiration episodes. Mild groundglass opacities are also seen in the right upper lobe and to lesser extent the left upper lobe. These areas could also represent an infectious process. The mediastinum is normal and the heart is not enlarged. The coronary arteries are calcified. There is no pleural effusion. The liver and bile ducts remain normal. The gallbladder remains abnormally enlarged consistent with hydrops. Considering that the cystic duct is patent, perhaps this patient has undergone a prolonged fast. Small stones are present in the gallbladder. The pancreas is atrophic. The spleen is unremarkable. The adrenal glands are normal. The left renal cyst measures 5.2 cm in diameter. Neither kidney shows evidence of hydronephrosis. Again no adenopathy is seen and there is no free fluid or free air in the abdomen. The bladder is decompressed with a Can catheter. IMPRESSION: 1. Markedly enlarged (hydropic) gallbladder with stones, no change. 2. Bibasilar pneumonia consistent with aspiration. Subtle groundglass opacities in both upper lobes also thought to be footwear sales representative of an infectious process.
--- NOTE | 2016-09-24 19:44 | NUR ---
REPORT GIVEN TO JACINTA GRACE.
--- NOTE | 2016-09-24 19:58 | NUR ---
CRITICAL TEST RESULTS [id number] BENJAMIN SMITH 75 M TESTS AND RESULTS: LACTIC 2.9 Results received and read back by: BENIGNO AVILA Results received date and time: 09/24/161957 The following provider was notified of the results, and read the results back: HOUSE STAFF Notified date and time: 09/24/16 at 8
--- NOTE | 2016-09-24 20:53 | NUR ---
PT HAS BED #114
[2016-09-24 21:10] VITALS: BP 100/51
[2016-09-25] VITALS: BP 100/52
--- NOTE | 2016-09-25 02:13 | NUR ---
ADMIT ACCEPTANCE: REC'D REPORT FROM LESLY FLOREZ IN ER. DX: HYPOTENSIVE, AMS, LOW BS FROM ECF. IN THE ER PT'S SBP IN 60'S. REC'D 1LNS BOLUS, BC,UC,ABX GIVEN, CXR, CTA& ABD SCAN DONE. RESULTS SHOWED BIBASILAR PNA CONSISTENT W/ASPIRATION. GROUNDGLASS OPACITIES BOTH LOBES ?INFECTION SEE MORE DETAILS IN RADIOLOGY. PT MORE AWAKE & ALERT & COLOR WNL THAN ADMITTED IN THE ER STATED MORE ASHEN/GUILLEN & LETHARGIC WHAT LESLY FLOREZ REPORTED TO ME/LESLY WORKMAN. 2109 PT ARRIVED IN THE ICU TO RM 114 VIA STRETCHER. TRANSFERRED PT TO A TOTAL CARE BED ON SLIDING BOARD W/ 3 STAFF & MARTIN WELL. HOOKED UP ON LEASING AGENT ST W/HR IN 100-110'S, BP MANUALLY 100/60. ON 3LNC POX 96%, LS DIMINISHED. FC INSITU BUT DRAINING TK YELLOW MUCOID URINE POOR U/O. PT IS ON DIALYSIS T//SAT. PT MISSED HIS DIALYSIS THIS AM D/T MEDICAL CHANGES. NON FUNCTION FISTULA TO MK BUT HAS AN PETEY CATH TO [facility]. PT A/O X2. PT HAS MULTIPLE SKIN ISSUES/OPEN SORES/NECROTIC AREAS TO BLE & NECROTIC TO VIKTORIA HEELS. SKIN TEAR ABOVE THE COCCYX AREA DENNISE/EXCORIATED BUTTOCK D/T FREQ. LOOSE STOOL. SEE SKIN MAN FOR DETAILS NEED WCN TO BE CONSULTED. REDRSG THE BLE W/XEROFRM & KERLIX WRAP. AMPUTED R TOES. DOPPLER PULSES TO R POST TIB FAINT & LP ALSO FAINT VIA DOPPLER. ON TOTAL CARE BED BUT PT NEED A SPECIALTY BED LIKE A CLINTRON BED THAT HE HAD PRIOR TO D/C TO ECF. 2250 BS 138 NO COVERAGE GIVEN. PT REMAINS NPO NEED SWAL EVAL. 0000 MEDICATED W/ MORPHINE EARLIER 05/06 SCORE & HAD SOME EFFECT. LAB DONE. LACTIC ACID 2.8 (4TH). 0115 INC OF LOOSE/LIQUIDY STOOL HEME+VE. T&P. PERICARE GIVEN.
[2016-09-25 06:30] LABS: ABSOLUTE BASOPHIL COUNT 0 /CUMM (0.0-0.2); ABSOLUTE EOSINOPHIL COUNT 0 /CUMM (0.0-0.7); ABSOLUTE LYMPH COUNT 0.4 /CUMM (1.2-3.4); ABSOLUTE MONOCYTE COUNT 0.3 /CUMM (0.10-0.60); BASOPHIL % 0 % (0.0-2.0); EOSINOPHIL % 0.1 % (0-5); GRANULOCYTE % 97.3 % (42.2-75.2); MEAN CORPUSCULAR HGB 29.1 PG (27.0-31.0); MEAN CORPUSCULAR HGB CONC 31.9 G/DL (33.0-37.0); MEAN CORPUSCULAR VOLUME 91.2 FL (80.0-94.0); MEAN PLATELET VOLUME 8.2 FL (7.4-10.4); PLATELET COUNT 309 /CUMM (130-400); RBC DISTRIBUTION WIDTH 20.6 % (11.5-14.5); RED BLOOD CELL CT 3.29 /CUMM (4.70-6.10); WHITE BLOOD CELL COUNT 24.6 /CUMM (4.8-10.8)
[2016-09-25 06:42] LABS: PT 66.1 SEC (9.4-12.5)
--- NOTE | 2016-09-25 07:18 | PN- Resident CRCU ---
Subjective HPI/CRCU Issues: No acute events overnight. Tmax was 100.8 within the past 24 hours. Patient was seen and examined this morning. He feels significantly better and is much more alert and awake today. His shortness of breath has improved and he is off venti mask and on 5 L NC. Abdominal pain and nausea have resolved. He continues to have cough with clear sputum and diarrhea which are chronic for him. Objective Vital Signs & I&O Last 8 Hrs of Vitals and I&O: Vital Signs Date Time Temp Pulse Resp B/P Pulse O2 O2 Flow FiO2 Ox Delivery Rate 09/25 0800 99 Nasal 5.0L Cannula 09/25 0800 98.3 126 20 117/95 99 Nasal 5.0L Cannula 09/25 0400 100 Nasal 3.0L Cannula 09/25 0000 97.7 107 25 100/52 97 Nasal 3.0L Cannula 09/25 0000 97 Nasal 3.0L Cannula 09/24 2313 Nasal 3.0L Cannula 09/240 97.7 118 28 100/51 96 Nasal 3.0L Cannula 09/246 95 Nasal 2.5L Cannula 09/24 2054 98.4 112 20 108/60 98 09/24 1901 98.8 117 20 116/59 100 Nasal 4.0L Cannula 09/24 1753 112 22 96/50 98 Venti Mask 45% 09/24 1726 98.9 111 16 87/56 84 09/24 1634 97.0 09/24 1625 97.0 109 20 109/57 100 Venti Mask 50% 09/24 1454 98.8 116 20 91/54 100 Venti Mask 50% 09/24 1256 98.4 116 22 92/53 97 Venti Mask 55% 09/24 1252 100.8 09/24 1219 100.8 123 15 78/51 81 Nasal 4.0L Cannula 09/24 1109 121 20 71/49 91 Nasal 2.0L Cannula 09/24 1053 Nasal 2.0L Cannula 09/24 1029 100.0 128 20 67/48 Exam General Appearance: no apparent distress, alert, awake Head: atraumatic, normal appearance Neck: RIJ in place Respiratory: few crackles Cardiovascular: regular rate/rhythm, normal S1 and S2, no murmurs, rubs or gallops Gastrointestinal: soft, non-tender, positive bowel sounds Extremities: no edema, Right TMA, dressings in place on BLE Skin: warm/dry Current Medications: Current Medications Sig/Kailash Start time Last Medication Dose Route Stop Time Status Admin Acetaminophen 650 MG Q6P PRN 09/24 1400 AC PO Acetaminophen 1,000 MG Q6P PRN 09/24 1400 AC IV Acetaminophen 0 .STK-MED ONE 09/24 1237 DC IV Acetaminophen 1,000 MG ONCE ONE 09/24 1230 DC 09/24 N/A 1 UNIT IV 09/24 1244 1252 Atorvastatin Calcium 40 MG QPM 09/24 2200 AC PO Calcium Carbonate 500 MG TID 09/24 2200 AC PO Ceftazidime 1,000 MG Q24H 09/24 1615 AC 09/24 IV 1605 Ceftazidime 0 .STK-MED ONE 09/24 1531 DC .ROUTE Ceftazidime 1,000 MG Q12 09/24 1502 DC IV Ceftriaxone Sodium 1,000 MG DAILY 09/25 1000 CAN IV Ceftriaxone Sodium 0 .STK-MED ONE 09/24 1237 DC .ROUTE Ceftriaxone Sodium 1,000 MG ONCE ONE 09/24 1145 DC 09/24 IV 09/24 1146 1252 Cyanocobalamin 1,000 MCG DAILY 09/25 1000 AC PO Epoetin Ludwig 5,000 UNITS ONCE ONE 09/25 0900 DC IV 09/25 0901 Ferrous Sulfate 325 MG QPM 09/24 2200 AC PO Guaifenesin 600 MG BID 09/24 2200 AC PO Hydrocortisone 50 MG Q8 09/24 2200 DC Sodium Succinate IM Hydrocortisone 50 MG BID 09/24 2200 AC 09/25 Sodium Succinate IV 0916 Hydrocortisone 100 MG Q12H 09/24 1730 DC Sodium Succinate IM Insulin Aspart 0 Q4 09/24 2200 AC SC Insulin Human Regular 0 Q6 09/24 1826 DC SC Metronidazole 500 MG IQ8 09/25 0000 AC 09/25 N/A 1 UNIT IV 0817 Metronidazole 500 MG ONCE ONE 09/24 1245 DC 09/24 N/A 1 UNIT IV 09/24 1344 1315 Morphine Sulfate 1 MG Q6P PRN 09/24 1415 AC 09/25 IV 0600 Multivitamins 1 TAB DAILY 09/25 1000 AC PO Multivitamins 1 TAB DAILY 09/25 1000 CAN PO Omeprazole 20 MG DAILY AC 09/25 0700 AC PO Prednisone 5 MG DAILY 09/25 1000 CAN PO Sevelamer Carbonate 800 MG WM 09/24 1700 AC 09/24 PO 1901 Sodium Chloride 1,000 ML Q10H 09/24 1445 AC 09/24 IV 2304 Sodium Chloride 1 SPRAY 4 TIMES/DAY PRN 09/24 1445 AC CARLITOS Sodium Chloride 1,000 ML BOLUS ONE 09/24 1145 DC IV 09/24 1244 Sodium Chloride 1,000 ML BOLUS ONE 09/24 1045 DC 09/24 IV 09/24 1144 1252 Vancomycin HCl 1,000 MG ONCE ONE 09/24 1615 DC 09/24 Dextrose/Water 250 ML IV 09/24 1714 1745 Vancomycin HCl 1,000 MG DAILY 09/24 1500 DC Dextrose/Water 250 ML IV Results Results: Laboratory Tests 09/25 09/24 09/24 0555 2350 2322 Chemistry Sodium (137 - 145 mmol/L) 135 L Potassium (3.5 - 5.1 mmol/L) 5.4 H Chloride (98 - 107 mmol/L) 105 Carbon Dioxide (22 - 30 mmol/L) 19 L Anion Gap (5 - 16) 11 BUN (9 - 20 mg/dL) 24 H Creatinine (0.7 - 1.2 mg/dL) 4.2 H Estimated GFR (>60 ml/min) 14 L Glucose (65 - 99 mg/dL) 97 Lactic Acid (0.7 - 2.1 mmol/L) 2.3 H 2.8 H Cancelled Calcium (8.4 - 10.2 mg/dL) 7.8 L Phosphorus (2.5 - 4.5 mg/dL) 4.6 H Magnesium (1.6 - 2.3 mg/dL) 1.2 L Total Bilirubin (0.2 - 1.3 mg/dL) 0.2 AST (17 - 59 U/L) 18 ALT (21 - 72 U/L) 26 Albumin (3.5 - 5.0 g/dL) 1.7 L Coagulation PT (9.4 - 12.5 SEC) 66.1 *H INR (0.90 - 1.17) 6.41 *H Hematology CBC w Diff MAN DIFF ORDERED WBC (4.8 - 10.8 /CUMM) 24.6 H RBC (4.70 - 6.10 /CUMM) 3.29 L Hgb (14.0 - 18.0 G/DL) 9.6 L Hct (42 - 52 %) 30.0 L MCV (80.0 - 94.0 FL) 91.2 MCH (27.0 - 31.0 PG) 29.1 RDW (11.5 - 14.5 %) 20.6 H Plt Count (130 - 400 /CUMM) 309 MPV (7.4 - 10.4 FL) 8.2 Gran % (42.2 - 75.2 %) 97.3 H Lymphocytes % (20.5 - 51.1 %) 1.5 L Monocytes % (1.7 - 9.3 %) 1.1 L Eosinophils % (0 - 5 %) 0.1 Basophils % (0.0 - 2.0 %) 0 L Absolute Granulocytes (1.4 - 6.5 /CUMM) 24.0 H Segmented Neutrophils (42.2 - 75.2 %) 78 H Band Neutrophils (0.0 - 5.0 %) 20 H Absolute Lymphocytes (1.2 - 3.4 /CUMM) 0.4 L Lymphocytes (20.5 - 51.1 %) 1 L Monocytes (1.7 - 9.3 %) 1 L Absolute Monocytes (0.10 - 0.60 /CUMM) 0.3 Absolute Eosinophils (0.0 - 0.7 /CUMM) 0 Absolute Basophils (0.0 - 0.2 /CUMM) 0 Nucleated RBCs (0.0 - 0.0 /100WBC) 1 H Platelet Estimate (ADEQUATE) ADEQUATE Normocytic RBCs VERIFIED Hypochromic-Microcytic 2+ Anisocytosis 1+ PUBS MCHC (33.0 - 37.0 G/DL) 31.9 L Other Body Source Fld Total RBCs Counted (%) 100 Toxicology Vancomycin Peak (30.0 - 40.0 ug/mL) 11.6 L 09/24 09/24 09/24 1926 1630 1155 Chemistry Lactic Acid (0.7 - 2.1 mmol/L) 2.9 H 2.9 H 3.6 H 09/24 1155 Chemistry Sodium (137 - 145 mmol/L) 134 L Potassium (3.5 - 5.1 mmol/L) 5.0 Chloride (98 - 107 mmol/L) 101 Carbon Dioxide (22 - 30 mmol/L) 21 L Anion Gap (5 - 16) 12 BUN (9 - 20 mg/dL) 24 H Creatinine (0.7 - 1.2 mg/dL) 4.0 H Estimated GFR (>60 ml/min) 15 L BUN/Creatinine Ratio (7 - 25 %) 6.0 L Glucose (65 - 99 mg/dL) 112 H Calcium (8.4 - 10.2 mg/dL) 8.4 Total Bilirubin (0.2 - 1.3 mg/dL) 0.3 AST (17 - 59 U/L) 15 L ALT (21 - 72 U/L) 25 Alkaline Phosphatase (< 127 U/L) 155 H Troponin I (<0.11 ng/ml) 0.02 Total Protein (6.3 - 8.2 g/dL) 5.1 L Albumin (3.5 - 5.0 g/dL) 2.1 L Globulin (1.9 - 4.2 gm/dL) 3.0 Albumin/Globulin Ratio (1.1 - 2.2 %) 0.7 L Hematology CBC w Diff MAN DIFF ORDERED WBC (4.8 - 10.8 /CUMM) 20.2 H RBC (4.70 - 6.10 /CUMM) 3.85 L Hgb (14.0 - 18.0 G/DL) 11.1 L Hct (42 - 52 %) 34.8 L MCV (80.0 - 94.0 FL) 90.4 MCH (27.0 - 31.0 PG) 28.8 RDW (11.5 - 14.5 %) 20.0 H Plt Count (130 - 400 /CUMM) 353 MPV (7.4 - 10.4 FL) 7.8 Gran % (42.2 - 75.2 %) 93.9 H Lymphocytes % (20.5 - 51.1 %) 3.8 L Monocytes % (1.7 - 9.3 %) 1.5 L Eosinophils % (0 - 5 %) 0.8 Basophils % (0.0 - 2.0 %) 0 L Absolute Granulocytes (1.4 - 6.5 /CUMM) 19.0 H Segmented Neutrophils (42.2 - 75.2 %) 67 Band Neutrophils (0.0 - 5.0 %) 24 H Absolute Lymphocytes (1.2 - 3.4 /CUMM) 0.8 L Lymphocytes (20.5 - 51.1 %) 4 L Monocytes (1.7 - 9.3 %) 3 Absolute Monocytes (0.10 - 0.60 /CUMM) 0.3 Eosinophils (0 - 5.0 %) 2 Absolute Eosinophils (0.0 - 0.7 /CUMM) 0.2 Absolute Basophils (0.0 - 0.2 /CUMM) 0 Platelet Estimate (ADEQUATE) ADEQUATE Hypochromic-Microcytic 2+ Poikilocytosis 1+ Anisocytosis 1+ PUBS MCHC (33.0 - 37.0 G/DL) 31.9 L Toxicology Random Vancomycin (ug/ml) < 5.0 Urines Urine Color (YEL,AMB,STR) YEL Urine Clarity (CLEAR) TURBD H Urine pH (5.0 - 8.0) 6.5 Ur Specific [place] (1.001 - 1.035) 1.025 Urine Protein (NEG,<30 MG/DL) >=300 H Urine Ketones (NEG) TRACE H Urine Nitrite (NEG) NEG Urine Bilirubin (NEG) NEG Urine Urobilinogen (0.1 - 1.0 EU/dl) 0.2 Ur Leukocyte Esterase (NEG) LARGE H Ur Microscopic SEDIMENT EXAMINED Urine WBC (0 - 2 /HPF) PACKD H Micro UA Comment Urine Hemoglobin (NEG) LARGE H Urine Glucose (N MG/DL) NEG BCx (09/24/16): NGTD x2 UCx (09/24/16): NGTD Stool C. difficile (09/24/16): Negative Stool Cx (09/24/16): Mixed boris after [address] Scan Findings: CT CHEST/ABDOMEN/PELVIS W/O IV CONTRAST: 1. Markedly enlarged (hydropic) gallbladder with stones, no change. 2. Bibasilar pneumonia consistent with aspiration. Subtle groundglass opacities in both upper lobes also thought to be printing sales representative of an infectious process. Impression/Plan Impression/Problem List Impression: 75 y/o M with PMHx of IDDM, ESRD on HD and PVD who is admitted for severe sepsis 2/2 suspected aspiration pneumonia. Problem List: 1. ESRD (end stage renal disease) on dialysis 2. Severe sepsis 3. IDDM (insulin dependent diabetes mellitus) 4. Altered mental status 5. Aspiration pneumonia 6. Antiphospholipid antibody syndrome 7. Hypoglycemia Pain Ratin Tomorrow's Labs & Rationales: CBC to monitor WBC in the setting of infection BMP, Mg, Phos and Ca to monitor lytes and kidney function in the setting of ESRD on HD Plan Respiratory: #Acute hypoxemic respiratory failure: Oxygenation improved. Off venti mask and on 5 L NC. * Provide supplemental oxygen to keep SpO2 > 92%. * Continue Mucinex 600 mg PO BID for cough. Infectious Diseases: #Sepsis 2/2 suspected aspiration pneumonia: Clinically much better with improvement of mental and respiratory status, on empiric treatment with vancomycin, ceftazidime and Flagyl. Most likely source is aspiration pneumonia given CT Chest with bibasilar pneumonia consistent with aspiration and modified barium swallow study with niurka aspiration on thin liquids. Although CT Abdomen revealed markedly enlarged gallbladder with no stones, this is unchanged from prior study during recent hospitalization when a HIDA scan was negative. Leukocytosis has persisted but this is likely secondary to the stress dose of steroids that patient is receiving. BCx and UCx from admission negative so far. * ID following. Appreciate their recs. * Remove Can. * Start ground diet and honey thick liquids. * Downgrade to GM. * Follow UCx and BCx. * Attempt to collect sputum culture. * Continue hydrocortisone 50 mg IV BID. * Continue ceftazidime 1 g IV Q8H. * Check random vancomycin level. Redose vancomycin after dialysis accordingly. * Flagyl discontinued. Cardiovascular: #Hypotension: Blood pressures have improved with IV fluids. Remains hemodynamically stable. * Monitor hemodynamics. * Monitor strict I/Os. * Continue NS @ 100 cc/hr. Hematology: #Antiphospholipid syndrome: INR has further increased to 6.41 today. 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 * Continue to hold warfarin. * Monitor INR daily and resume warfarin when INR is no longer supratherapeutic. Metabolic: #T2DM: Blood sugars remain low in the 80-120 range. * Endocrinology following. Appreciate their recs. * Accu-checks and Novolog TIDAC sliding scale: for glucose 201-250 give 2 units of insulin, for 251-300 give 4 units, for 301-350 give 6 units and for 351-400 give 8 units, as well as a separate bedtime sliding scale: for glucose 251-300 give 2 units of insulin, for 301-350 give 3 units and for 351-400 give 4 units. * Continue to hold prior to admission Levemir. #ESRD: Dialysis session canceled yesterday due to hemodynamic instability. Dialysis performed today without fluid removal. On HD es/Th/Sat. * Nephrology following. Appreciate their recs. * Continue HD on //Fri schedule. * Continue Epogen IV with dialysis. Alimentary: Renal Dialysis Diet - Ground Diet and Honey Thick Liquids Neurological: Mental status much improved today. AAO x3. DVT/Prophylaxis: pharmacological Code Status: Do Not Resucitate/Intubat
[2016-09-25 08:00] VITALS: BP 117/95
--- NOTE | 2016-09-25 08:34 | Cons- Endocrinology ---
General Information and HPI Consulting Request Date of Consult: 09/25/16 Requested By: ICU team Reason for Consult: management of diabetes and adrenal insufficiency Source of Information: patient, family, old records Exam Limitations: no limitations History of Present Illness: Mr. Marvin is a 76-year-old gentleman with past medical history of DVT on Coumadin therapy, hypertension, diabetes, CKD stage V currently on hemodialysis, peripheral vascular disease, left lower extremity necrotizing nonhealing ulcers, history of cellulitis with Pseudomonas and Crohn's disease status post bowel resection and on chronic prednisone therapy, multiple admissions over past 2-3 months, presented with fever, changes of mental status, hypotension and hypoglycemia. He probably has had aspiration pneumonia. He was admitted to ICU last night for sepsis. He was put on hydrocortisone 50 mg iv twice a day and Novolog coverage every 4 hours ( the coverage starts when FSG is > 200). His FSGs were 98, 127, 138, 108 and 102. In addition, he has been kept NPO. He is waiting for swallow evaluation. Currently he is on NS at 100 ml/hour. Allergies/Medications Allergies: Coded Allergies: Sulfa (Sulfonamide Antibiotics) (Mild, HIVES 06/15/16) Home Med List: Aspirin (Ecotrin*) 81 MG TABLET.DR 1 TAB PO QPM HEART HEALTH (Reported) Reason to Stop at ADM: high INR, risk for bleeding Atorvastatin Calcium 40 MG TABLET 1 TAB PO QPM CHOLESTEROL (Reported) B Complex & C No.20/Folic Acid (Nephrocaps Softgel) 1 MG CAPSULE 1 CAP PO DAILY SUPPLEMENT Calcium Carbonate/Vitamin D3 (Os-Vishal 500+D3 Caplet) 500 MG-600 TABLET 1 TAB PO TID SUPPLEMENT (Reported) Carvedilol (Coreg) 3.125 MG TABLET 6.25 MG PO BID high heart rate Reason to Stop at ADM: hypotensive Cyanocobalamin (Vitamin B-12) (Vitamin B-12) 500 MCG TABLET 2 TAB PO DAILY ANEMIA (Reported) Ferrous Sulfate 325 MG (65 MG IRON) TABLET 1 TAB PO QPM SUPPLEMENT (Reported) Guaifenesin (Mucinex) 600 MG TAB.ER.12H 1 TAB PO BID cONGESTION Insulin Aspart (Novolog) 100 UNIT/ML VIAL 0 UNITS SC TIDAC diabetes Do not give novolog unless patient eats! Give novolog only after assessing his food intake. Blood sugar Less than 150: no insulin 151-200: give 2 units 201-250: give 3 units 251-300: give 4 units 301-350: Give 5 units 351-400: give 6 units More than 400: give 6 units, call Insulin Detemir (Levemir) 100 UNIT/ML VIAL 3 UNITS SC DAILY diabetes please follow up with Dr. Hilton in 1 week Nephro-Vitamins (Nephro-Arthur Tablet) 0.8 MG TABLET 1 TAB PO DAILY kidney Omeprazole 20 MG CAPSULE. 1 CAP PO DAILY GI (Reported) Oxycodone HCl/Acetaminophen (Percocet 5-325 MG Tablet) 5 MG-325 MG TABLET 2 TAB PO Q8P PRN PAIN SCALE 4-6 (MODERATE) Prednisone 5 MG TABLET 1 TAB PO DAILY Crohns disease Sevelamer Carbonate (Renvela) 800 MG TABLET 1 TAB PO TIDWM KIDNEYS (Reported) RESTART WHEN PHOS LEVEL >3.5 Sodium Chloride (Saline Nasal Rawlings) 0.65 % SPRAY 1 SPRAY NASB 4 TIMES/DAY PRN dRY NOSE Warfarin Sodium (Coumadin) 1 MG TABLET 1 TAB PO Q48 BLOOD THINNER (Reported) Reason to Stop at ADM:supratherapeutic INR Review of Systems Review of Systems Constitutional: Reports: see HPI. Cardiovascular: Reports: no symptoms. Denies: chest pain. Respiratory: Reports: cough. Denies: short of breath. GI: Denies: abdominal pain. Skin: Reports: see HPI (chronic lesions on LE B/L). Past History Travel History Traveled to [place] past 21 day No Medical History Blood Transfusion Hx: Yes Neurological: NONE EENT: NONE Cardiovascular: PVD, DVT Respiratory: pneumonia Gastrointestinal: Crohn's disease Hepatic: NONE Renal: nephrolithiasis, CKD Musculoskeletal: 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 Psychiatric: NONE Endocrine: diabetes Blood Disorders: anemia, coagulopathy, DVT (RUE and RLE), antiphosphlipid syndrome Cancer(s): NONE FIXTURE BUILDER/Reproductive: NONE Surgical History Surgical History: colon resection, knee replacement (left), LEFT HIP ORIF status post right leg bypass status post right patellar ORIF status post right TMA status post lithotripsy and stent placements Family History Relations & Conditions If Any: FATHER Antiphospholipid syndrome FH: diabetes mellitus MOTHER FH: Crohn's disease Psychosocial History Where Do You Live? Extended Care Facility Who Do You Live With? spouse Services at Home: None Primary Language: Hong Konger Smoking Status: Former Smoker Functional Ability ADLs Independent: dressing, eating, toileting, bathing. Ambulation: walker IADLs Needs Assist: shopping, housework, finances, food prep, telephone, transportation, medication admin. Exam & Diagnostic Data Last 24 Hrs of Vital Signs/I&O Vital Signs Date Time Temp Pulse Resp B/P Pulse O2 O2 Flow FiO2 Ox Delivery Rate 09/25 0400 100 Nasal 3.0L Cannula 09/25 0000 97.7 107 25 100/52 97 Nasal 3.0L Cannula 09/25 0000 97 Nasal 3.0L Cannula 09/24 2313 Nasal 3.0L Cannula 09/24 2109 97.7 118 28 100/51 96 Nasal 3.0L Cannula 09/24 2055 95 Nasal 2.5L Cannula 09/24 2054 98.4 112 20 108/60 98 09/24 1901 98.8 117 20 116/59 100 Nasal 4.0L Cannula 09/24 1753 112 22 96/50 98 Venti Mask 45% 09/24 1726 98.9 111 16 87/56 84 09/24 1634 97.0 09/24 1625 97.0 109 20 109/57 100 Venti Mask 50% 09/24 1454 98.8 116 20 91/54 100 Venti Mask 50% 09/24 1256 98.4 116 22 92/53 97 Venti Mask 55% 09/24 1252 100.8 09/24 1219 100.8 123 15 78/51 81 Nasal 4.0L Cannula 09/24 1109 121 20 71/49 91 Nasal 2.0L Cannula 09/24 1053 Nasal 2.0L Cannula 09/24 1029 100.0 128 20 67/48 Intake & Output 09/25 1600 09/25 0800 09/25 0000 Intake Total 679 1700 Output Total 25 100 Balance 654 1600 Intake, IV 679 1700 Intake, Oral 0 0 Number 1 2 Bowel Movements Output, Urine 25 100 Patient 139 lb Weight Labs/[place]tar Results: Laboratory Tests 09/25 09/24 09/24 0555 2350 2322 Chemistry Sodium (137 - 145 mmol/L) 135 L Potassium (3.5 - 5.1 mmol/L) 5.4 H Chloride (98 - 107 mmol/L) 105 Carbon Dioxide (22 - 30 mmol/L) 19 L Anion Gap (5 - 16) 11 BUN (9 - 20 mg/dL) 24 H Creatinine (0.7 - 1.2 mg/dL) 4.2 H Estimated GFR (>60 ml/min) 14 L Glucose (65 - 99 mg/dL) 97 Lactic Acid (0.7 - 2.1 mmol/L) 2.3 H 2.8 H Cancelled Calcium (8.4 - 10.2 mg/dL) 7.8 L Phosphorus (2.5 - 4.5 mg/dL) 4.6 H Magnesium (1.6 - 2.3 mg/dL) 1.2 L Total Bilirubin (0.2 - 1.3 mg/dL) 0.2 AST (17 - 59 U/L) 18 ALT (21 - 72 U/L) 26 Albumin (3.5 - 5.0 g/dL) 1.7 L Coagulation PT (9.4 - 12.5 SEC) 66.1 *H INR (0.90 - 1.17) 6.41 *H Hematology CBC w Diff MAN DIFF ORDERED WBC (4.8 - 10.8 /CUMM) 24.6 H RBC (4.70 - 6.10 /CUMM) 3.29 L Hgb (14.0 - 18.0 G/DL) 9.6 L Hct (42 - 52 %) 30.0 L MCV (80.0 - 94.0 FL) 91.2 MCH (27.0 - 31.0 PG) 29.1 RDW (11.5 - 14.5 %) 20.6 H Plt Count (130 - 400 /CUMM) 309 MPV (7.4 - 10.4 FL) 8.2 Gran % (42.2 - 75.2 %) 97.3 H Lymphocytes % (20.5 - 51.1 %) 1.5 L Monocytes % (1.7 - 9.3 %) 1.1 L Eosinophils % (0 - 5 %) 0.1 Basophils % (0.0 - 2.0 %) 0 L Absolute Granulocytes (1.4 - 6.5 /CUMM) 24.0 H Segmented Neutrophils (42.2 - 75.2 %) 78 H Band Neutrophils (0.0 - 5.0 %) 20 H Absolute Lymphocytes (1.2 - 3.4 /CUMM) 0.4 L Lymphocytes (20.5 - 51.1 %) 1 L Monocytes (1.7 - 9.3 %) 1 L Absolute Monocytes (0.10 - 0.60 /CUMM) 0.3 Absolute Eosinophils (0.0 - 0.7 /CUMM) 0 Absolute Basophils (0.0 - 0.2 /CUMM) 0 Nucleated RBCs (0.0 - 0.0 /100WBC) 1 H Platelet Estimate (ADEQUATE) ADEQUATE Normocytic RBCs VERIFIED Hypochromic-Microcytic 2+ Anisocytosis 1+ PUBS MCHC (33.0 - 37.0 G/DL) 31.9 L Other Body Source Fld Total RBCs Counted (%) 100 Toxicology Vancomycin Peak (30.0 - 40.0 ug/mL) 11.6 L 09/24 09/24 09/24 1926 1630 1155 Chemistry Lactic Acid (0.7 - 2.1 mmol/L) 2.9 H 2.9 H 3.6 H 09/24 1155 Chemistry Sodium (137 - 145 mmol/L) 134 L Potassium (3.5 - 5.1 mmol/L) 5.0 Chloride (98 - 107 mmol/L) 101 Carbon Dioxide (22 - 30 mmol/L) 21 L Anion Gap (5 - 16) 12 BUN (9 - 20 mg/dL) 24 H Creatinine (0.7 - 1.2 mg/dL) 4.0 H Estimated GFR (>60 ml/min) 15 L BUN/Creatinine Ratio (7 - 25 %) 6.0 L Glucose (65 - 99 mg/dL) 112 H Calcium (8.4 - 10.2 mg/dL) 8.4 Total Bilirubin (0.2 - 1.3 mg/dL) 0.3 AST (17 - 59 U/L) 15 L ALT (21 - 72 U/L) 25 Alkaline Phosphatase (< 127 U/L) 155 H Troponin I (<0.11 ng/ml) 0.02 Total Protein (6.3 - 8.2 g/dL) 5.1 L Albumin (3.5 - 5.0 g/dL) 2.1 L Globulin (1.9 - 4.2 gm/dL) 3.0 Albumin/Globulin Ratio (1.1 - 2.2 %) 0.7 L Hematology CBC w Diff MAN DIFF ORDERED WBC (4.8 - 10.8 /CUMM) 20.2 H RBC (4.70 - 6.10 /CUMM) 3.85 L Hgb (14.0 - 18.0 G/DL) 11.1 L Hct (42 - 52 %) 34.8 L MCV (80.0 - 94.0 FL) 90.4 MCH (27.0 - 31.0 PG) 28.8 RDW (11.5 - 14.5 %) 20.0 H Plt Count (130 - 400 /CUMM) 353 MPV (7.4 - 10.4 FL) 7.8 Gran % (42.2 - 75.2 %) 93.9 H Lymphocytes % (20.5 - 51.1 %) 3.8 L Monocytes % (1.7 - 9.3 %) 1.5 L Eosinophils % (0 - 5 %) 0.8 Basophils % (0.0 - 2.0 %) 0 L Absolute Granulocytes (1.4 - 6.5 /CUMM) 19.0 H Segmented Neutrophils (42.2 - 75.2 %) 67 Band Neutrophils (0.0 - 5.0 %) 24 H Absolute Lymphocytes (1.2 - 3.4 /CUMM) 0.8 L Lymphocytes (20.5 - 51.1 %) 4 L Monocytes (1.7 - 9.3 %) 3 Absolute Monocytes (0.10 - 0.60 /CUMM) 0.3 Eosinophils (0 - 5.0 %) 2 Absolute Eosinophils (0.0 - 0.7 /CUMM) 0.2 Absolute Basophils (0.0 - 0.2 /CUMM) 0 Platelet Estimate (ADEQUATE) ADEQUATE Hypochromic-Microcytic 2+ Poikilocytosis 1+ Anisocytosis 1+ PUBS MCHC (33.0 - 37.0 G/DL) 31.9 L Toxicology Random Vancomycin (ug/ml) < 5.0 Urines Urine Color (YEL,AMB,STR) YEL Urine Clarity (CLEAR) TURBD H Urine pH (5.0 - 8.0) 6.5 Ur Specific [place] (1.001 - 1.035) 1.025 Urine Protein (NEG,<30 MG/DL) >=300 H Urine Ketones (NEG) TRACE H Urine Nitrite (NEG) NEG Urine Bilirubin (NEG) NEG Urine Urobilinogen (0.1 - 1.0 EU/dl) 0.2 Ur Leukocyte Esterase (NEG) LARGE H Ur Microscopic SEDIMENT EXAMINED Urine WBC (0 - 2 /HPF) PACKD H Micro UA Comment Urine Hemoglobin (NEG) LARGE H Urine Glucose (N MG/DL) NEG Assessment/Plan Assessment/Plan Mr. Marvin is a 76-year-old gentleman with past medical history of DVT on Coumadin therapy, hypertension, diabetes, CKD stage V currently on hemodialysis, peripheral vascular disease, left lower extremity necrotizing nonhealing ulcers, history of cellulitis with Pseudomonas and Crohn's disease status post bowel resection and on chronic prednisone therapy, multiple admissions over past 2-3 months, presented with fever, changes of mental status, hypotension and hypoglycemia. He probably has had aspiration pneumonia. He was admitted to ICU last night for sepsis. Clinically he has been better. Overnight, his BP and glucose level have been stable. 1. continue hydrocortisone 50 mg iv twice a day for today; 2. continue IVF while he is kept NPO. 3. replete Mg; monitor electrolytes; 4. monitor FSGs every 4 hours; continue the current Novolog coverage every 4 hours for now; 5. please inform me if he passes swallow evaluation and he is ready to eat meals , then I will adjust his insulin regimen accordingly. will follow. Consult Acknowledgment - Thank you for your consult request.
--- NOTE | 2016-09-25 10:56 | PN- Nephrology ---
See Addendum Assessment/Plan Assessment: ESRD - Missed dialysis yesterday given hemodynamic instability. Dialysis performed today without fluid removal. ?Pneumonia - Pt came in with primarily GI symptoms but now with suspected PNA on CT Scan - on empiric abx and clinically improved. Anemia - On Epogen which should be continued with dialysis. Suggestion: -Dialysis today - no fluid removal -To continue on //Fri dialysis schedule starting tomorrow -Cont Epogen with dialysis Please call [phone] with ?'s Subjective Subjective: Pt brought to ICU Dialysis this AM - no fluid removal SBP 100's-110's C diff and other cultures thus far negative WBC up to 24.6; last febrile to 100.8 yesterday (now afebrile); CT c/w bibasilar PNA; on empiric vanc/ceftazidime/flagyl Objective Vital Signs and I&Os Vital Signs Date Time Temp Pulse Resp B/P Pulse O2 O2 Flow FiO2 Ox Delivery Rate 09/25 0800 99 Nasal 5.0L Cannula 09/25 0800 98.3 126 20 117/95 99 Nasal 5.0L Cannula 09/25 0400 100 Nasal 3.0L Cannula 09/25 0000 97.7 107 25 100/52 97 Nasal 3.0L Cannula 09/25 0000 97 Nasal 3.0L Cannula 09/24 2313 Nasal 3.0L Cannula 09/240 97.7 118 28 100/51 96 Nasal 3.0L Cannula 09/24 2055 95 Nasal 2.5L Cannula 09/24 2054 98.4 112 20 108/60 98 09/24 1901 98.8 117 20 116/59 100 Nasal 4.0L Cannula 09/24 1753 112 22 96/50 98 Venti Mask 45% 09/24 1726 98.9 111 16 87/56 84 09/24 1634 97.0 09/24 1625 97.0 109 20 109/57 100 Venti Mask 50% 09/24 1454 98.8 116 20 91/54 100 Venti Mask 50% 09/24 1256 98.4 116 22 92/53 97 Venti Mask 55% 09/24 1252 100.8 09/24 1219 100.8 123 15 78/51 81 Nasal 4.0L Cannula 09/24 1109 121 20 71/49 91 Nasal 2.0L Cannula Intake & Output 09/25 1600 03/01 0400 09/24 1600 09/24 0400 09/23 1600 09/23 0400 Intake Total 679 1700 Output Total 25 100 100 Balance 654 1600 -100 Intake, IV 679 1700 Intake, Oral 0 0 Number 1 2 Bowel Movements Output, Urine 25 100 100 Patient 139 lb 140 lb Weight Current Medications: Current Medications Sig/Kailash Start time Last Medication Dose Route Stop Time Status Admin Acetaminophen 650 MG Q6P PRN 09/24 1400 AC PO Acetaminophen 1,000 MG Q6P PRN 09/24 1400 AC IV Acetaminophen 0 .STK-MED ONE 09/24 1237 DC IV Acetaminophen 1,000 MG ONCE ONE 09/24 1230 DC 09/24 N/A 1 UNIT IV 09/24 1244 1252 Atorvastatin Calcium 40 MG QPM 09/24 220 AC PO Calcium Carbonate 500 MG TID 09/24 220 AC PO Ceftazidime 1,000 MG Q24H 09/24 1615 AC 09/24 IV 1605 Ceftazidime 0 .STK-MED ONE 09/24 1531 DC .ROUTE Ceftazidime 1,000 MG Q12 09/24 1502 DC IV Ceftriaxone Sodium 1,000 MG DAILY 09/25 1000 CAN IV Ceftriaxone Sodium 0 .STK-MED ONE 09/24 1237 DC .ROUTE Ceftriaxone Sodium 1,000 MG ONCE ONE 09/24 1145 DC 09/24 IV 09/24 1146 1252 Cyanocobalamin 1,000 MCG DAILY 09/25 1000 AC PO Epoetin Ludwig 5,000 UNITS ONCE ONE 09/25 0900 DC IV 09/25 0901 Ferrous Sulfate 325 MG QPM 09/24 2200 AC PO Guaifenesin 600 MG BID 09/24 2200 AC PO Hydrocortisone 50 MG Q8 09/24 2200 DC Sodium Succinate IM Hydrocortisone 50 MG BID 09/24 2200 AC 09/25 Sodium Succinate IV 0916 Hydrocortisone 100 MG Q12H 09/24 1730 DC Sodium Succinate IM Insulin Aspart 0 Q4 09/24 2200 AC SC Insulin Human Regular 0 Q6 09/24 1826 DC SC Metronidazole 500 MG IQ8 09/25 0000 AC 09/25 N/A 1 UNIT IV 0817 Metronidazole 500 MG ONCE ONE 09/24 1245 DC 09/24 N/A 1 UNIT IV 09/24 1344 1315 Morphine Sulfate 1 MG Q6P PRN 09/24 1415 AC 09/25 IV 0600 Multivitamins 1 TAB DAILY 09/25 1000 AC PO Multivitamins 1 TAB DAILY 09/25 1000 CAN PO Omeprazole 20 MG DAILY AC 09/25 0700 AC PO Prednisone 5 MG DAILY 09/25 1000 CAN PO Sevelamer Carbonate 800 MG WM 09/24 1700 AC 09/24 PO 1901 Sodium Chloride 1,000 ML Q10H 09/24 1445 AC 09/25 IV 1007 Sodium Chloride 1 SPRAY 4 TIMES/DAY PRN 09/24 1445 AC CARLITOS Sodium Chloride 1,000 ML BOLUS ONE 09/24 1145 DC IV 09/24 1244 Sodium Chloride 1,000 ML BOLUS ONE 09/24 1045 DC 09/24 IV 09/24 1144 1252 Vancomycin HCl 1,000 MG ONCE ONE 09/24 1615 DC 09/24 Dextrose/Water 250 ML IV 09/24 1714 1745 Vancomycin HCl 1,000 MG DAILY 09/24 1500 DC Dextrose/Water 250 ML IV Results Pertinent Lab Results: Laboratory Tests 09/25 09/24 09/24 0555 2350 2322 Chemistry Sodium (137 - 145 mmol/L) 135 L Potassium (3.5 - 5.1 mmol/L) 5.4 H Chloride (98 - 107 mmol/L) 105 Carbon Dioxide (22 - 30 mmol/L) 19 L Anion Gap (5 - 16) 11 BUN (9 - 20 mg/dL) 24 H Creatinine (0.7 - 1.2 mg/dL) 4.2 H Estimated GFR (>60 ml/min) 14 L Glucose (65 - 99 mg/dL) 97 Lactic Acid (0.7 - 2.1 mmol/L) 2.3 H 2.8 H Cancelled Calcium (8.4 - 10.2 mg/dL) 7.8 L Phosphorus (2.5 - 4.5 mg/dL) 4.6 H Magnesium (1.6 - 2.3 mg/dL) 1.2 L Total Bilirubin (0.2 - 1.3 mg/dL) 0.2 AST (17 - 59 U/L) 18 ALT (21 - 72 U/L) 26 Albumin (3.5 - 5.0 g/dL) 1.7 L Coagulation PT (9.4 - 12.5 SEC) 66.1 *H INR (0.90 - 1.17) 6.41 *H Hematology CBC w Diff MAN DIFF ORDERED WBC (4.8 - 10.8 /CUMM) 24.6 H RBC (4.70 - 6.10 /CUMM) 3.29 L Hgb (14.0 - 18.0 G/DL) 9.6 L Hct (42 - 52 %) 30.0 L MCV (80.0 - 94.0 FL) 91.2 MCH (27.0 - 31.0 PG) 29.1 RDW (11.5 - 14.5 %) 20.6 H Plt Count (130 - 400 /CUMM) 309 MPV (7.4 - 10.4 FL) 8.2 Gran % (42.2 - 75.2 %) 97.3 H Lymphocytes % (20.5 - 51.1 %) 1.5 L Monocytes % (1.7 - 9.3 %) 1.1 L Eosinophils % (0 - 5 %) 0.1 Basophils % (0.0 - 2.0 %) 0 L Absolute Granulocytes (1.4 - 6.5 /CUMM) 24.0 H Segmented Neutrophils (42.2 - 75.2 %) 78 H Band Neutrophils (0.0 - 5.0 %) 20 H Absolute Lymphocytes (1.2 - 3.4 /CUMM) 0.4 L Lymphocytes (20.5 - 51.1 %) 1 L Monocytes (1.7 - 9.3 %) 1 L Absolute Monocytes (0.10 - 0.60 /CUMM) 0.3 Absolute Eosinophils (0.0 - 0.7 /CUMM) 0 Absolute Basophils (0.0 - 0.2 /CUMM) 0 Nucleated RBCs (0.0 - 0.0 /100WBC) 1 H Platelet Estimate (ADEQUATE) ADEQUATE Normocytic RBCs VERIFIED Hypochromic-Microcytic 2+ Anisocytosis 1+ PUBS MCHC (33.0 - 37.0 G/DL) 31.9 L Other Body Source Fld Total RBCs Counted (%) 100 Toxicology Vancomycin Peak (30.0 - 40.0 ug/mL) 11.6 L 09/24 09/24 09/24 192 1630 1155 Chemistry Lactic Acid (0.7 - 2.1 mmol/L) 2.9 H 2.9 H 3.6 H 09/24 1155 Chemistry Sodium (137 - 145 mmol/L) 134 L Potassium (3.5 - 5.1 mmol/L) 5.0 Chloride (98 - 107 mmol/L) 101 Carbon Dioxide (22 - 30 mmol/L) 21 L Anion Gap (5 - 16) 12 BUN (9 - 20 mg/dL) 24 H Creatinine (0.7 - 1.2 mg/dL) 4.0 H Estimated GFR (>60 ml/min) 15 L BUN/Creatinine Ratio (7 - 25 %) 6.0 L Glucose (65 - 99 mg/dL) 112 H Calcium (8.4 - 10.2 mg/dL) 8.4 Total Bilirubin (0.2 - 1.3 mg/dL) 0.3 AST (17 - 59 U/L) 15 L ALT (21 - 72 U/L) 25 Alkaline Phosphatase (< 127 U/L) 155 H Troponin I (<0.11 ng/ml) 0.02 Total Protein (6.3 - 8.2 g/dL) 5.1 L Albumin (3.5 - 5.0 g/dL) 2.1 L Globulin (1.9 - 4.2 gm/dL) 3.0 Albumin/Globulin Ratio (1.1 - 2.2 %) 0.7 L Hematology CBC w Diff MAN DIFF ORDERED WBC (4.8 - 10.8 /CUMM) 20.2 H RBC (4.70 - 6.10 /CUMM) 3.85 L Hgb (14.0 - 18.0 G/DL) 11.1 L Hct (42 - 52 %) 34.8 L MCV (80.0 - 94.0 FL) 90.4 MCH (27.0 - 31.0 PG) 28.8 RDW (11.5 - 14.5 %) 20.0 H Plt Count (130 - 400 /CUMM) 353 MPV (7.4 - 10.4 FL) 7.8 Gran % (42.2 - 75.2 %) 93.9 H Lymphocytes % (20.5 - 51.1 %) 3.8 L Monocytes % (1.7 - 9.3 %) 1.5 L Eosinophils % (0 - 5 %) 0.8 Basophils % (0.0 - 2.0 %) 0 L Absolute Granulocytes (1.4 - 6.5 /CUMM) 19.0 H Segmented Neutrophils (42.2 - 75.2 %) 67 Band Neutrophils (0.0 - 5.0 %) 24 H Absolute Lymphocytes (1.2 - 3.4 /CUMM) 0.8 L Lymphocytes (20.5 - 51.1 %) 4 L Monocytes (1.7 - 9.3 %) 3 Absolute Monocytes (0.10 - 0.60 /CUMM) 0.3 Eosinophils (0 - 5.0 %) 2 Absolute Eosinophils (0.0 - 0.7 /CUMM) 0.2 Absolute Basophils (0.0 - 0.2 /CUMM) 0 Platelet Estimate (ADEQUATE) ADEQUATE Hypochromic-Microcytic 2+ Poikilocytosis 1+ Anisocytosis 1+ PUBS MCHC (33.0 - 37.0 G/DL) 31.9 L Toxicology Random Vancomycin (ug/ml) < 5.0 Urines Urine Color (YEL,AMB,STR) YEL Urine Clarity (CLEAR) TURBD H Urine pH (5.0 - 8.0) 6.5 Ur Specific [place] (1.001 - 1.035) 1.025 Urine Protein (NEG,<30 MG/DL) >=300 H Urine Ketones (NEG) TRACE H Urine Nitrite (NEG) NEG Urine Bilirubin (NEG) NEG Urine Urobilinogen (0.1 - 1.0 EU/dl) 0.2 Ur Leukocyte Esterase (NEG) LARGE H Ur Microscopic SEDIMENT EXAMINED Urine WBC (0 - 2 /HPF) PACKD H Micro UA Comment Urine Hemoglobin (NEG) LARGE H Urine Glucose (N MG/DL) NEG Imaging/Other Studies: EXAM TYPE: CAT - CT ABD & PELVIS W/O IV CONTRAS; CT CHEST WO IV CONTRAST EXAMINATION: CT ABD PELVIS W/O IV CONTRAS, CT CHEST WO IV CONTRAST CLINICAL INFORMATION: 75-year-old male patient with leukocytosis. Shortness of breath. Respiratory distress. Fever. Possible aspiration. COMPARISON: Chest x-rays done 08/28/2016 and 09/02/2016. The last chest x-ray done 09/19/2016. (No pneumonia). CT of the abdomen done 08/28/2016. (Hydropic gallbladder with cholelithiasis). Ultrasound the abdomen done 08/29/2016. (Hydrops and cholelithiasis). HIDA scan on 08/30/2016. (Patent cystic duct). CT of the abdomen on 09/02/2016. (Hydrops of the gallbladder and cholelithiasis. Complicated left renal cyst, right lower lobe opacity and left pleural effusion). TECHNIQUE: Axial scans of the chest, abdomen, and pelvis with coronal and sagittal reformats obtained at the acquisition workstation. DLP: 441 mGy-cm FINDINGS: Motion Graphics Designer view shows developing left lower lobe pneumonia. A dual-lumen dialysis catheter and a left total hip replacement. A left subclavian catheter is directed into the SVC. The abdomen is relatively gasless. Reexamination shows bilateral lower lobe areas of patchy consolidation and bronchial wall thickening. This has progressed since September 02 and certainly could represent changes from repeated aspiration episodes. Mild groundglass opacities are also seen in the right upper lobe and to lesser extent the left upper lobe. These areas could also represent an infectious process. The mediastinum is normal and the heart is not enlarged. The coronary arteries are calcified. There is no pleural effusion. The liver and bile ducts remain normal. The gallbladder remains abnormally enlarged consistent with hydrops. Considering that the cystic duct is patent, perhaps this patient has undergone a prolonged fast. Small stones are present in the gallbladder. The pancreas is atrophic. The spleen is unremarkable. The adrenal glands are normal. The left renal cyst measures 5.2 cm in diameter. Neither kidney shows evidence of hydronephrosis. Again no adenopathy is seen and there is no free fluid or free air in the abdomen. The bladder is decompressed with a Can catheter. IMPRESSION: 1. Markedly enlarged (hydropic) gallbladder with stones, no change. 2. Bibasilar pneumonia consistent with aspiration. Subtle groundglass opacities in both upper lobes also thought to be small business representative of an infectious process.
--- NOTE | 2016-09-25 11:01 | PN- CRCU ---
Subjective HPI/Critical Care Issues: pt seen and examined undergoing HD wihtout fluid removal appears stable no need for vasopressors bp stable without tele issues Objective Current Medications: Current Medications Sig/Kailash Start time Last Medication Dose Route Stop Time Status Admin Acetaminophen 650 MG Q6P PRN 09/24 1400 AC PO Acetaminophen 1,000 MG Q6P PRN 09/24 1400 AC IV Acetaminophen 0 .STK-MED ONE 09/24 1237 DC IV Acetaminophen 1,000 MG ONCE ONE 09/24 1230 DC 09/24 N/A 1 UNIT IV 09/24 1244 1252 Atorvastatin Calcium 40 MG QPM 09/24 2200 AC PO Calcium Carbonate 500 MG TID 09/24 2200 AC PO Ceftazidime 1,000 MG Q24H 09/24 1615 AC 09/24 IV 1605 Ceftazidime 0 .STK-MED ONE 09/24 1531 DC .ROUTE Ceftazidime 1,000 MG Q12 09/24 1502 DC IV Ceftriaxone Sodium 1,000 MG DAILY 09/25 1000 CAN IV Ceftriaxone Sodium 0 .STK-MED ONE 09/24 1237 DC .ROUTE Ceftriaxone Sodium 1,000 MG ONCE ONE 09/24 1145 DC 09/24 IV 09/24 1146 1252 Cyanocobalamin 1,000 MCG DAILY 09/25 1000 AC PO Epoetin Ludwig 5,000 UNITS ONCE ONE 09/25 0900 DC IV 09/25 0901 Ferrous Sulfate 325 MG QPM 09/24 2200 AC PO Guaifenesin 600 MG BID 09/24 2200 AC PO Hydrocortisone 50 MG Q8 09/24 2200 DC Sodium Succinate IM Hydrocortisone 50 MG BID 09/24 2200 AC 09/25 Sodium Succinate IV 0916 Hydrocortisone 100 MG Q12H 09/24 1730 DC Sodium Succinate IM Insulin Aspart 0 Q4 09/24 2200 AC SC Insulin Human Regular 0 Q6 09/24 1826 DC SC Metronidazole 500 MG IQ8 09/25 0000 AC 09/25 N/A 1 UNIT IV 0817 Metronidazole 500 MG ONCE ONE 09/24 1245 DC 09/24 N/A 1 UNIT IV 09/24 1344 1315 Morphine Sulfate 1 MG Q6P PRN 09/24 1415 AC 09/25 IV 0600 Multivitamins 1 TAB DAILY 09/25 1000 AC PO Multivitamins 1 TAB DAILY 09/25 1000 CAN PO Omeprazole 20 MG DAILY AC 09/25 0700 AC PO Prednisone 5 MG DAILY 09/25 1000 CAN PO Sevelamer Carbonate 800 MG WM 09/24 1700 AC 09/24 PO 1901 Sodium Chloride 1,000 ML Q10H 09/24 1445 AC 09/25 IV 1007 Sodium Chloride 1 SPRAY 4 TIMES/DAY PRN 09/24 1445 AC CALRITOS Sodium Chloride 1,000 ML BOLUS ONE 09/24 1145 DC IV 09/24 1244 Sodium Chloride 1,000 ML BOLUS ONE 09/24 1045 DC 09/24 IV 09/24 1144 1252 Vancomycin HCl 1,000 MG ONCE ONE 09/24 1615 DC 09/24 Dextrose/Water 250 ML IV 09/24 1714 1745 Vancomycin HCl 1,000 MG DAILY 09/24 1500 DC Dextrose/Water 250 ML IV Vital Signs & I&O Last 24 Hrs of Vitals and I&O: Vital Signs Date Time Temp Pulse Resp B/P Pulse O2 O2 Flow FiO2 Ox Delivery Rate 09/25 08 99 Nasal 5.0L Cannula 09/25 08 98.3 126 20 117/95 99 Nasal 5.0L Cannula 09/25 0400 100 Nasal 3.0L Cannula 09/25 0000 97.7 107 25 100/52 97 Nasal 3.0L Cannula 09/25 0000 97 Nasal 3.0L Cannula 09/24 2313 Nasal 3.0L Cannula 09/24 2109 97.7 118 28 100/51 96 Nasal 3.0L Cannula 09/24 2055 95 Nasal 2.5L Cannula 09/24 2054 98.4 112 20 108/60 98 09/24 1901 98.8 117 20 116/59 100 Nasal 4.0L Cannula 09/24 1753 112 22 96/50 98 Venti Mask 45% 09/24 1726 98.9 111 16 87/56 84 09/24 1634 97.0 09/24 1625 97.0 109 20 109/57 100 Venti Mask 50% 09/24 1454 98.8 116 20 91/54 100 Venti Mask 50% 09/24 1256 98.4 116 22 92/53 97 Venti Mask 55% 09/24 1252 100.8 09/24 1219 100.8 123 15 78/51 81 Nasal 4.0L Cannula 09/24 1109 121 20 71/49 91 Nasal 2.0L Cannula Intake & Output 09/25 1600 09/25 0800 09/25 0000 Intake Total 679 1700 Output Total 25 100 Balance 654 1600 Intake, IV 679 1700 Intake, Oral 0 0 Number 1 2 Bowel Movements Output, Urine 25 100 Patient 139 lb Weight Exam Other Physical Findings: gen awake and alert, lethargic heent ncat cvs s1, s2 lungs rare rhonchi abd soft, bs+, mild tenderness ext without edema catheters intact Results Last 24 Hrs of Lab Results: Laboratory Tests 09/25/16 0555: Anion Gap 11, Estimated GFR 14 L, Glucose 97, Lactic Acid 2.3 H, Calcium 7.8 L, Phosphorus 4.6 H, Magnesium 1.2 L, Total Bilirubin 0.2, AST 18, ALT 26, Albumin 1.7 L, PT 66.1 *H, INR 6.41 *H, CBC w Diff MAN DIFF ORDERED, RBC 3.29 L, MCV 91.2, MCH 29.1, RDW 20.6 H, MPV 8.2, Gran % 97.3 H, Lymphocytes % 1.5 L, Monocytes % 1.1 L, Eosinophils % 0.1, Basophils % 0 L, Absolute Granulocytes 24.0 H, Segmented Neutrophils 78 H, Band Neutrophils 20 H, Absolute Lymphocytes 0.4 L, Lymphocytes 1 L, Monocytes 1 L, Absolute Monocytes 0.3, Absolute Eosinophils 0, Absolute Basophils 0, Nucleated RBCs 1 H , Platelet Estimate ADEQUATE, Normocytic RBCs VERIFIED, Hypochromic-Microcytic 2 +, Anisocytosis 1+, PUBS MCHC 31.9 L, Fld Total RBCs Counted 100, Vancomycin Peak 11.6 L 09/24/16 2350: Lactic Acid 2.8 H 09/24/16 2322: Lactic Acid Cancelled 09/24/16 1926: Lactic Acid 2.9 H 09/24/16 1630: Lactic Acid 2.9 H 09/24/16 1155: Lactic Acid 3.6 H 09/24/16 1155: Anion Gap 12, Estimated GFR 15 L, BUN/Creatinine Ratio 6.0 L, Glucose 112 H, Calcium 8.4, Total Bilirubin 0.3, AST 15 L, ALT 25, Alkaline Phosphatase 155 H , Troponin I 0.02, Total Protein 5.1 L, Albumin 2.1 L, Globulin 3.0, Albumin/ Globulin Ratio 0.7 L, CBC w Diff MAN DIFF ORDERED, RBC 3.85 L, MCV 90.4, MCH 28.8, RDW 20.0 H, MPV 7.8, Gran % 93.9 H, Lymphocytes % 3.8 L, Monocytes % 1.5 L, Eosinophils % 0.8, Basophils % 0 L, Absolute Granulocytes 19.0 H, Segmented Neutrophils 67, Band Neutrophils 24 H, Absolute Lymphocytes 0.8 L, Lymphocytes 4 L, Monocytes 3, Absolute Monocytes 0.3, Eosinophils 2, Absolute Eosinophils 0.2, Absolute Basophils 0, Platelet Estimate ADEQUATE, Hypochromic- Microcytic 2+, Poikilocytosis 1+, Anisocytosis 1+, PUBS MCHC 31.9 L, Random Vancomycin < 5.0, Urine Color YEL, Urine Clarity TURBD H, Urine pH 6.5, Ur Specific [place] 1.025, Urine Protein >=300 H, Urine Ketones TRACE H, Urine Nitrite NEG, Urine Bilirubin NEG, Urine Urobilinogen 0.2, Ur Leukocyte Esterase LARGE H, Ur Microscopic SEDIMENT EXAMINED, Urine WBC PACKD H, Micro UA Comment , Urine Hemoglobin LARGE H, Urine Glucose NEG Impression/Plan Impression/Plan Impression/Plan: Impression 75 year old man - Severe sepsis - unclear source, possible aspiration pneumonia - recent hypoglycemic episodes - hypotension maintained with iv fluid administration - not in shock - ESRD on HD - Crohn's disease - antiphospholipid syndrome - coumadin - possible adrenal insufficiency Plan Respiratory - o2 supplementation ID - ID consultation is appreciated - f/u recommendations CVS - monitor hemodynamics Heme - monitor cbc, coags Metabolic - ins/outs - nephrology consultation is appreciated - stress dose steroids - endocrinology consultation appreciated Alimentary - swallowing evaluation Neuro - monitor mental status, awake DVT prophylaxis at all times TTS 35 min DG GM DNR/DNI
--- NOTE | 2016-09-25 11:10 | PN- Infect Dx ---
Subjective Subjective: MAXIMUM TEMPERATURE 100.8 on steroids. His blood pressure is improved. He denies any abdominal pain but continues to have diarrhea. He has a cough, which is nonproductive, but denies shortness of breath or chest pain. Objective Last 24 Hrs of Vital Signs/I&O Vital Signs Date Time Temp Pulse Resp B/P Pulse O2 O2 Flow FiO2 Ox Delivery Rate 09/25 08 99 Nasal 5.0L Cannula 09/25 08 98.3 126 20 117/95 99 Nasal 5.0L Cannula 09/25 0400 100 Nasal 3.0L Cannula 09/25 0000 97.7 107 25 100/52 97 Nasal 3.0L Cannula 09/25 0000 97 Nasal 3.0L Cannula 09/243 Nasal 3.0L Cannula 09/24 2109 97.7 118 28 100/51 96 Nasal 3.0L Cannula 09/24 2055 95 Nasal 2.5L Cannula 09/24 2054 98.4 112 20 108/60 98 09/24 1901 98.8 117 20 116/59 100 Nasal 4.0L Cannula 09/24 1753 112 22 96/50 98 Venti Mask 45% 09/24 1726 98.9 111 16 87/56 84 09/24 1634 97.0 09/24 1625 97.0 109 20 109/57 100 Venti Mask 50% 09/24 1454 98.8 116 20 91/54 100 Venti Mask 50% 09/24 1256 98.4 116 22 92/53 97 Venti Mask 55% 09/24 1252 100.8 09/24 1219 100.8 123 15 78/51 81 Nasal 4.0L Cannula 09/24 1109 121 20 71/49 91 Nasal 2.0L Cannula Intake & Output 09/25 1600 09/25 0800 09/25 0000 Intake Total 679 1700 Output Total 25 100 Balance 654 1600 Intake, IV 679 1700 Intake, Oral 0 0 Number 1 2 Bowel Movements Output, Urine 25 100 Patient 139 lb Weight Physical Exam Other Physical Findings: He is weak appearing but awake and alert in no acute distress Neck left subclavian triple-lumen catheter in place with no inflammation at the site; Mj catheter in the right IJ with no inflammation at the site Lungs crackles at the right base Heart regular rhythm with no murmur Abdomen is soft, nontender with positive bowel sounds Extremities dressings intact over the lower extremity ulcers Can catheter remains in place Results Last 24 Hours of Lab Results: Laboratory Tests 09/25 09/24 09/24 0552 5174 2322 Chemistry Sodium (137 - 145 mmol/L) 135 L Potassium (3.5 - 5.1 mmol/L) 5.4 H Chloride (98 - 107 mmol/L) 105 Carbon Dioxide (22 - 30 mmol/L) 19 L Anion Gap (5 - 16) 11 BUN (9 - 20 mg/dL) 24 H Creatinine (0.7 - 1.2 mg/dL) 4.2 H Estimated GFR (>60 ml/min) 14 L Glucose (65 - 99 mg/dL) 97 Lactic Acid (0.7 - 2.1 mmol/L) 2.3 H 2.8 H Cancelled Calcium (8.4 - 10.2 mg/dL) 7.8 L Phosphorus (2.5 - 4.5 mg/dL) 4.6 H Magnesium (1.6 - 2.3 mg/dL) 1.2 L Total Bilirubin (0.2 - 1.3 mg/dL) 0.2 AST (17 - 59 U/L) 18 ALT (21 - 72 U/L) 26 Albumin (3.5 - 5.0 g/dL) 1.7 L Coagulation PT (9.4 - 12.5 SEC) 66.1 *H INR (0.90 - 1.17) 6.41 *H Hematology CBC w Diff MAN DIFF ORDERED WBC (4.8 - 10.8 /CUMM) 24.6 H RBC (4.70 - 6.10 /CUMM) 3.29 L Hgb (14.0 - 18.0 G/DL) 9.6 L Hct (42 - 52 %) 30.0 L MCV (80.0 - 94.0 FL) 91.2 MCH (27.0 - 31.0 PG) 29.1 RDW (11.5 - 14.5 %) 20.6 H Plt Count (130 - 400 /CUMM) 309 MPV (7.4 - 10.4 FL) 8.2 Gran % (42.2 - 75.2 %) 97.3 H Lymphocytes % (20.5 - 51.1 %) 1.5 L Monocytes % (1.7 - 9.3 %) 1.1 L Eosinophils % (0 - 5 %) 0.1 Basophils % (0.0 - 2.0 %) 0 L Absolute Granulocytes (1.4 - 6.5 /CUMM) 24.0 H Segmented Neutrophils (42.2 - 75.2 %) 78 H Band Neutrophils (0.0 - 5.0 %) 20 H Absolute Lymphocytes (1.2 - 3.4 /CUMM) 0.4 L Lymphocytes (20.5 - 51.1 %) 1 L Monocytes (1.7 - 9.3 %) 1 L Absolute Monocytes (0.10 - 0.60 /CUMM) 0.3 Absolute Eosinophils (0.0 - 0.7 /CUMM) 0 Absolute Basophils (0.0 - 0.2 /CUMM) 0 Nucleated RBCs (0.0 - 0.0 /100WBC) 1 H Platelet Estimate (ADEQUATE) ADEQUATE Normocytic RBCs VERIFIED Hypochromic-Microcytic 2+ Anisocytosis 1+ PUBS MCHC (33.0 - 37.0 G/DL) 31.9 L Other Body Source Fld Total RBCs Counted (%) 100 Toxicology Vancomycin Peak (30.0 - 40.0 ug/mL) 11.6 L 09/24 09/24 09/24 1926 1630 1155 Chemistry Lactic Acid (0.7 - 2.1 mmol/L) 2.9 H 2.9 H 3.6 H 09/24 1155 Chemistry Sodium (137 - 145 mmol/L) 134 L Potassium (3.5 - 5.1 mmol/L) 5.0 Chloride (98 - 107 mmol/L) 101 Carbon Dioxide (22 - 30 mmol/L) 21 L Anion Gap (5 - 16) 12 BUN (9 - 20 mg/dL) 24 H Creatinine (0.7 - 1.2 mg/dL) 4.0 H Estimated GFR (>60 ml/min) 15 L BUN/Creatinine Ratio (7 - 25 %) 6.0 L Glucose (65 - 99 mg/dL) 112 H Calcium (8.4 - 10.2 mg/dL) 8.4 Total Bilirubin (0.2 - 1.3 mg/dL) 0.3 AST (17 - 59 U/L) 15 L ALT (21 - 72 U/L) 25 Alkaline Phosphatase (< 127 U/L) 155 H Troponin I (<0.11 ng/ml) 0.02 Total Protein (6.3 - 8.2 g/dL) 5.1 L Albumin (3.5 - 5.0 g/dL) 2.1 L Globulin (1.9 - 4.2 gm/dL) 3.0 Albumin/Globulin Ratio (1.1 - 2.2 %) 0.7 L Hematology CBC w Diff MAN DIFF ORDERED WBC (4.8 - 10.8 /CUMM) 20.2 H RBC (4.70 - 6.10 /CUMM) 3.85 L Hgb (14.0 - 18.0 G/DL) 11.1 L Hct (42 - 52 %) 34.8 L MCV (80.0 - 94.0 FL) 90.4 MCH (27.0 - 31.0 PG) 28.8 RDW (11.5 - 14.5 %) 20.0 H Plt Count (130 - 400 /CUMM) 353 MPV (7.4 - 10.4 FL) 7.8 Gran % (42.2 - 75.2 %) 93.9 H Lymphocytes % (20.5 - 51.1 %) 3.8 L Monocytes % (1.7 - 9.3 %) 1.5 L Eosinophils % (0 - 5 %) 0.8 Basophils % (0.0 - 2.0 %) 0 L Absolute Granulocytes (1.4 - 6.5 /CUMM) 19.0 H Segmented Neutrophils (42.2 - 75.2 %) 67 Band Neutrophils (0.0 - 5.0 %) 24 H Absolute Lymphocytes (1.2 - 3.4 /CUMM) 0.8 L Lymphocytes (20.5 - 51.1 %) 4 L Monocytes (1.7 - 9.3 %) 3 Absolute Monocytes (0.10 - 0.60 /CUMM) 0.3 Eosinophils (0 - 5.0 %) 2 Absolute Eosinophils (0.0 - 0.7 /CUMM) 0.2 Absolute Basophils (0.0 - 0.2 /CUMM) 0 Platelet Estimate (ADEQUATE) ADEQUATE Hypochromic-Microcytic 2+ Poikilocytosis 1+ Anisocytosis 1+ PUBS MCHC (33.0 - 37.0 G/DL) 31.9 L Toxicology Random Vancomycin (ug/ml) < 5.0 Urines Urine Color (YEL,AMB,STR) YEL Urine Clarity (CLEAR) TURBD H Urine pH (5.0 - 8.0) 6.5 Ur Specific [place] (1.001 - 1.035) 1.025 Urine Protein (NEG,<30 MG/DL) >=300 H Urine Ketones (NEG) TRACE H Urine Nitrite (NEG) NEG Urine Bilirubin (NEG) NEG Urine Urobilinogen (0.1 - 1.0 EU/dl) 0.2 Ur Leukocyte Esterase (NEG) LARGE H Ur Microscopic SEDIMENT EXAMINED Urine WBC (0 - 2 /HPF) PACKD H Micro UA Comment Urine Hemoglobin (NEG) LARGE H Urine Glucose (N MG/DL) NEG Last 24 Hours of [place] Results: Blood cultures 2 September 24 negative Urine culture September 24 negative Stool culture September 24 mixed boris after 1 day Recent Imaging Studies: CT the chest, abdomen and pelvis without contrast September 24 reveals bibasilar densities, with subtle groundglass opacities in both upper lobes, and a markedly enlarged (hydropic) gallbladder with stones, unchanged from previous study Assessment/Plan Impression: Improved, with blood pressure increased with fluids and without the need for pressors, on empiric treatment with Vancomycin, Flagyl and Ceftazidime for presumed sepsis. His most likely source appears to be pulmonary, with bibasilar densities on the recent CT scan, and with no evidence of colitis. The gallbladder remains hydropic and is also a potential source of sepsis, though the CT appearance is unchanged from the previous study, and a HIDA scan on a recent hospitalization was negative. His white blood cell count remains elevated, possibly secondary to the stress steroids. Suggestion: 1. Attempt to obtain a sputum culture 2. Remove Can catheter 3. Follow-up recent blood and urine cultures 4. Discontinue Flagyl 5. Redose with Vancomycin after dialysis per protocol based on his random Vancomycin level 6. Continue Ceftazidime
--- NOTE | 2016-09-25 14:14 | RADIOLOGY REPORT ---
EXAMINATION: XR MODIFIED BARIUM SWALLOW CLINICAL INFORMATION: Aspiration pneumonia, recurrent episodes. COMPARISON: None. TECHNIQUE: A modified barium swallow was performed with speech pathologist in attendance. Pur?e, honey thick, nectar thick, thin, and cracker consistencies were given to the patient and the swallowing mechanism was observed fluoroscopically with several spot films taken. FLUOROSCOPY TIME: 3 minutes 30 seconds. FINDINGS: With all consistencies, the oropharyngeal phase of swallowing is disordered with difficulty in posterior bolus propagation and tongue pumping seen. There is significant pooling of contrast seen within the valleculae and to a lesser extent in the piriform sinuses. The patient is unable to clear this contrast on successive dry swallows or on successive swallows of thinner consistency. With thin liquid barium, niurka aspiration is seen to just below the level of the vocal cords, eliciting only a weak cough reflex, which is ineffectual in clearing the contrast. IMPRESSION: 1. Aspiration to just below the level of the vocal cords seen with thin liquid barium. 2. Disordered oral phase of swallowing. 3. Abnormal pooling of contrast within the valleculae. Patient unable to clear with successive swallows. 4. Speech pathologist assessment issued separately.
[2016-09-25 16:24] VITALS: BP 118/68
[2016-09-25 23:26] VITALS: BP 106/60; BP 121/81
[2016-09-26 04:59] LABS: ABSOLUTE BASOPHIL COUNT 0 /CUMM (0.0-0.2); ABSOLUTE EOSINOPHIL COUNT 0 /CUMM (0.0-0.7); ABSOLUTE LYMPH COUNT 0.3 /CUMM (1.2-3.4); ABSOLUTE MONOCYTE COUNT 0.3 /CUMM (0.10-0.60); BASOPHIL % 0.3 % (0.0-2.0); EOSINOPHIL % 0 % (0-5); GRANULOCYTE % 94.7 % (42.2-75.2); MEAN CORPUSCULAR HGB 28.2 PG (27.0-31.0); MEAN CORPUSCULAR HGB CONC 30.5 G/DL (33.0-37.0); MEAN CORPUSCULAR VOLUME 92.3 FL (80.0-94.0); MEAN PLATELET VOLUME 7.8 FL (7.4-10.4); PLATELET COUNT 241 /CUMM (130-400); RBC DISTRIBUTION WIDTH 20.7 % (11.5-14.5); RED BLOOD CELL CT 2.69 /CUMM (4.70-6.10); WHITE BLOOD CELL COUNT 13.8 /CUMM (4.8-10.8)
[2016-09-26 05:10] LABS: HEMATOCRIT 24.9 % (42-52)
--- NOTE | 2016-09-26 06:52 | PN- Housestaff ---
See Addendum Subjective Follow-up For: ESRD on dialysis Hypoglycemia Hypotension Possible aspiration PNA Chronic foot ulcer CHronic DVT on coumadin with supratherapeutic INR Subjective: I saw and examined the patient this am, he is alert and oriented in no distress, complains of his mouth being dry, denies any chest pain, SOB, cough, headache, abdominal pain. Reports pain in the legs. Reports pain in the knees. Review of Systems Constitutional: Reports: weakness. Denies: chills, fever. EENTM: Reports: no symptoms. Cardiovascular: Denies: chest pain, palpitations. Respiratory: Denies: cough, short of breath. Gastrointestinal: Denies: abdominal pain, changes in stool. Genitourinary: Reports: no symptoms. Musculoskeletal: Reports: joint pain. Skin: Reports: lesions. Neurological/Psychological: Reports: no symptoms. Objective Last 24 Hrs of Vital Signs/I&O Vital Signs Date Time Temp Pulse Resp B/P Pulse O2 O2 Flow FiO2 Ox Delivery Rate 09/26 1723 97.3 20 118/64 91 Nasal 4.0L Cannula 09/26 0800 93 Nasal 5.0L Cannula 09/26 0717 98.0 89 18 100/50 93 Room Air 09/26 0000 Nasal 5.0L Cannula 09/25 2326 97.3 73 20 106/60 91 Nasal Cannula Intake & Output 09/26 1600 09/26 0800 09/26 0000 Intake Total 1000 890 Output Total 2 0 Balance -2 1000 890 Intake, IV 1000 800 Intake, Oral 90 Number 1 Bowel Movements Output, Stool 2 Output, Urine 0 Physical Exam General Appearance: Alert, Oriented X3, Cooperative, No Acute Distress Skin: there is a gangrenous skin lesion on the dorsal aspect of the left foot, also non-helaing ulcer with small mount of mucoid discharge on the posterior aspect of right lowr leg HEENT: Atraumatic, EOMI Neck: No JVD Cardiovascular: Regular Rate, Normal S1, Normal S2, No Murmurs Lungs: no wheezes or rhonchi Abdomen: Normal Bowel Sounds, Soft, No Tenderness Neurological: Normal Speech, Normal Tone Extremities: Normal Pulses Current Medications: Current Medications Sig/Kailash Start time Last Medication Dose Route Stop Time Status Admin Acetaminophen 650 MG Q6P PRN 09/24 1400 AC PO Atorvastatin Calcium 40 MG QPM 09/24 2200 AC 09/25 PO 2216 Calcium Carbonate 500 MG TID 09/24 2200 AC 09/26 PO 1800 Ceftazidime 1,000 MG Q24H 09/24 1615 AC 09/26 IV 1800 Cyanocobalamin 1,000 MCG DAILY 09/25 1000 AC 09/26 PO 0838 Diphenoxylate HCl/ 2.5 MG BID 09/26 1156 AC 09/26 Atropine PO 1220 Epoetin Ludwig 3,000 UNIT ONCE ONE 09/26 1400 DC IV 09/26 1401 Epoetin Ludwig 2,000 UNIT ONCE ONE 09/26 1400 DC IV 09/26 1401 Ferrous Sulfate 325 MG QPM 09/24 2200 AC 09/25 PO 2216 Guaifenesin 600 MG BID 09/24 2200 AC 09/26 PO 0838 Hydrocortisone 25 MG BID 09/26 1000 AC 09/26 Sodium Succinate IV 0839 Hydrocortisone 50 MG BID 09/24 2200 DC 09/25 Sodium Succinate IV 2216 Insulin Aspart 0 AT BEDTIME 09/25 2200 AC SC Insulin Aspart 0 TIDAC 09/25 1700 AC 09/26 SC 1800 Lactobacillus 1 CAP BID 09/26 1000 AC 09/26 Acidophilus PO 1220 Magnesium Oxide 400 MG ONE ONE 09/26 1830 DC PO 09/26 1831 Multivitamins 1 TAB DAILY 09/25 1000 AC 09/26 PO 0839 Omeprazole 20 MG DAILY AC 09/25 0700 AC PO Oxycodone/ 1 TAB Q6P PRN 09/25 1515 AC 09/26 Acetaminophen PO 1230 Oxycodone/ 2 TAB Q6P PRN 09/25 1515 AC Acetaminophen PO Sevelamer Carbonate 800 MG WM 09/24 1700 AC 09/26 PO 1800 Sodium Chloride 1,000 ML Q10H 09/24 1445 AC 09/26 IV 1017 Sodium Chloride 1 SPRAY 4 TIMES/DAY PRN 09/24 1445 AC CARLITOS Vancomycin HCl See Dose MoWeFr PRN 09/25 1315 AC Insts (1) IV Dose Instructions: (1)Vancomycin HCl: dose based on random Vanco level Last 24 Hrs of Lab/[place] Results Last 24 Hrs of Labs/Mics: Laboratory Tests 09/26/16 1600: CBC w Diff NO MAN DIFF REQ, RBC 2.98 L, MCV 92.8, MCH 29.3, RDW 22.0 H, MPV 8.3, Gran % 94.4 H, Lymphocytes % 2.5 L, Monocytes % 3.0, Eosinophils % 0, Basophils % 0.1, Absolute Granulocytes 14.8 H, Absolute Lymphocytes 0.4 L, Absolute Monocytes 0.5, Absolute Eosinophils 0, Absolute Basophils 0, PUBS MCHC 31.5 L 09/26/16 1338: Hep Bs Antigen NONREACTIVE, Hep Bs Antibody NONREACTIVE 09/26/16 0436: Anion Gap 5, Estimated GFR 31 L, BUN/Creatinine Ratio 5.2 L, Calcium 7.2 L, Phosphorus 2.8, Magnesium 1.5 L, PT 80.0 *H, INR 7.78 *H, CBC w Diff NO MAN DIFF REQ, RBC 2.69 L, MCV 92.3, MCH 28.2, RDW 20.7 H, MPV 7.8, Gran % 94.7 H, Lymphocytes % 2.5 L, Monocytes % 2.5, Eosinophils % 0, Basophils % 0.3, Absolute Granulocytes 13.0 H, Absolute Lymphocytes 0.3 L, Absolute Monocytes 0.3, Absolute Eosinophils 0, Absolute Basophils 0, PUBS MCHC 30.5 L Assessment/Plan Assessment: Acute hypoxemic respiratory failure - resolved * Provide supplemental oxygen to keep SpO2 > 92%. * Continue Mucinex 600 mg PO BID for cough. Sepsis 2/2 suspected aspiration pneumonia * ID following. Appreciate their recs. * Swallow eval done, Started ground diet and honey thick liquids. * Follow UCx and BCx. * Attempt to collect sputum culture. * Continue hydrocortisone 50 mg IV BID. * Continue ceftazidime 1 g IV Q8H. * Will Check vancomycin level before the next dialysis session and adjust dose of Vancomycin * Flagyl discontinued. Hypotension Blood pressures have improved with IV fluids. Remains hemodynamically stable. * Monitor hemodynamics. * Monitor strict I/Os. * Continue NS @ 100 cc/hr. Antiphospholipid syndrome INR has further increased to 7.78 today. 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 * Continue to hold warfarin. * Monitor INR daily and resume warfarin when INR is no longer supratherapeutic. T2DM Came with hypoglycemia. Blood sugars in 190-220 range today. * Endocrinology following. Appreciate their recs. * Accu-checks and Novolog TIDAC sliding scale: for glucose 201-250 give 2 units of insulin, for 251-300 give 4 units, for 301-350 give 6 units and for 351-400 give 8 units, as well as a separate bedtime sliding scale: for glucose 251-300 give 2 units of insulin, for 301-350 give 3 units and for 351-400 give 4 units. * Continue to hold prior to admission Levemir. ESRD Dialysis performed yesterday without fluid removal. On HD //Fri. * Nephrology following. Appreciate their recs. * Continue HD on //Fri schedule. * Continue Epogen IV with dialysis. Renal Dialysis Diet - Ground Diet and Honey Thick Liquids DVT/Prophylaxis: pharmacological Code Status: Do Not Resucitate/Intubat Problem List: 1. Altered mental status 2. Hypoglycemia 3. Antiphospholipid antibody syndrome 4. End stage renal disease 5. Type 2 diabetes mellitus 6. Peripheral vascular disease 7. Aspiration pneumonia Pain Ratin Pain Location: left foot Pain Goal: Pain 4 or less Pain Plan: tyelnol oxycodone Tomorrow's Labs & Rationales: cbc, BEP, INR (anemia, ESRD on dialysis, on coumadin)
[2016-09-26 07:17] VITALS: BP 100/50
--- NOTE | 2016-09-26 08:16 | Transfer of Care Summary ---
Hospital Course Course Hospital Course: 75 y/o M with PMHx of ESRD on HD, antiphospholipid syndrome, PVD with chronic nonhealing bilateral lower extremity ulcers, atrial fibrillation on warfarin and IDDM, with multiple hospitalizations here at [facility] over the three months, who is BIBA from SNF with hypoglycemia, altered mental status and hypotension, one day after being discharged from [facility], where he was hospitalized for altered mental status secondary to hypoglycemia. Of note, patient was treated with several courses of antibiotics for pneumonia multiple times during his recent hospitalizations, most recent one was approximately three weeks ago in August when he was treated with a 1-week course of vancomycin and ceftazidime (09/02/16-). On initial presentation, vitals were Tmax 100.8, HR 128, BP 67/48 later improved to 90s/50s after receiving NS, RR 20 and SpO2 91% on 2 L which later dropped to 81% resulting in patient to be placed on venti mask. Labs were significant WBC 20.2, BUN/Cr 24/4 and INR 6.41. Urinalysis was positive for leukocyte esterase and pyuria with packed WBCs. CXR showed no evidence of pneumonia. Central line was placed in the ED as peripheral access could not be established. Patient was fluid resuscitated with improvement of blood pressure, administered a dose of vancomycin and ceftriaxone and admitted to the ICU for close hemodynamic monitoring in the setting of sepsis. Below are the issues that were addressed during current admission: Assessment/Plan: #Sepsis 2/ suspected aspiration pneumonia: Patient met SIRS criteria for sepsis on admission in the setting of fever (Tmax 100.8), tachycardia (HR 128), tachypnea (RR 22) and leukocytosis (WBC 20.2) with bandemia (24). His presentation was consistent with severe sepsis in the setting of hypotension. Etiology for the sepsis was initially unclear and multiple sources were entertained and patient was started on vancomycin, ceftazidime and Flagyl for broad-spectrum coverage, as well as stress dose steroids due to concern for adrenal insufficiency in the setting of prolonged steroid therapy. Most likely source was felt to be aspiration pneumonia in the setting of AMS, hypoxemia and multiple episodes of recurrent pneumonia treated with several different courses of antibiotics although initial CXR was negative. It was felt that the urinalysis with pyuria represented colonization since patient had candiduria previously which was treated with fluconazole. Although CT Abdomen revealed markedly enlarged gallbladder with no stones, this was unchanged from prior study during recent hospitalization when a HIDA scan was negative. CT Chest was performed which showed bibasilar pneumonia consistent with aspiration and modified barium swallow study revealed niurka aspiration on thin liquids, further suggesting that patient may have aspiration pneumonia as initially thought, and Flagyl was discontinued. Vancomycin and ceftazidime were continued. On day 2 of admission, patient had drastically improved in terms of respiratory and mental status. * ID following. Appreciate their recs. * Ground diet and honey thick liquids. * Follow UCx and BCx. * Attempt to collect sputum culture. * Continue hydrocortisone 50 mg IV BID. * Continue ceftazidime 1 g IV Q8H. * Continue vancomycin per dialysis protocol. #T2DM: Patient was found to be hypoglycemic at SNF on the morning of initial presentation and received glucagon. During current admission, his blood sugars remained low in the 80-120 range. Endocrinology was consulted and patient was maintained on Novolog TIDAC sliding scale according to their recommendations. * Endocrinology following. Appreciate their recs. * Accu-checks and Novolog TIDAC sliding scale: for glucose 201-250 give 2 units of insulin, for 251-300 give 4 units, for 301-350 give 6 units and for 351-400 give 8 units, as well as a separate bedtime sliding scale: for glucose 251-300 give 2 units of insulin, for 301-350 give 3 units and for 351-400 give 4 units. * Continue to hold prior to admission Levemir. #ESRD: Dialysis was not performed on the day of initial presentation in the setting of hemodynamic instability but patient received dialysis the following day. * Nephrology following. Appreciate their recs. * Resume HD according to //Fri schedule. * Continue Epogen IV with dialysis. #Antiphospholipid syndrome: Patient has a history of recurrent PE and DVTs and is maintained on lifelong anticoagulation with warfarin. Initially he presented with supratherapeutic INR of 6.17 which trended up to 6.41 despite holding warfarin. * Hold warfarin. * Monitor INR daily and resume warfarin when INR is no longer supratherapeutic. Diet: Renal Dialysis Diet - Ground Diet and Honey Thick Liquids DVT PPx: ALPs and warfarin CODE: DNR/DNI
--- NOTE | 2016-09-26 08:26 | PN- Diabetes ---
Assessment/Plan Assessment: Mr. Marvin is a 76-year-old gentleman with past medical history of DVT on Coumadin therapy, hypertension, diabetes, CKD stage V currently on hemodialysis, peripheral vascular disease, left lower extremity necrotizing nonhealing ulcers, history of cellulitis with Pseudomonas and Crohn's disease status post bowel resection and on chronic prednisone therapy, multiple admissions over past 2-3 months, presented with fever, changes of mental status, hypotension and hypoglycemia. He probably has had aspiration pneumonia. He was admitted to ICU for sepsis. He was put on hydrocortisone 50 mg iv every 12 hours. He is still on NS 100 ml/ hour. He feels hungry and would like to eat. FSGs were 80, 110, 238, 217. Plan: 1. decrease Hydrocortisone to 25 mg iv every 12 hours today; 2. recommend discontinuing NS; 3. adjust Novolog coverage before meals---detail see the inpatient DM order; 4. continue the current Novolog coverage at bedtime; 5. monitor FSGs; will follow. Inpatient Diabetes Orders Before Each Meal: Bolus Insulin: Novolog < 80 mg/dl: no coverage 80-100 mg/dl: no coverage 101-120 mg/dl: no coverage 121-150 mg/dl: no coverage 151-200 mg/dl: 2 units 201-250 mg/dl: 4 units 251-300 mg/dl: 5 units 301-350 mg/dl: 6 units 351-400 mg/dl: 7 units > 400 mg/dl: 8 units Subjective Subjective: He feels better and would like to eat breakfast. Objective Last 24 Hrs of Vital Signs/I&O Vital Signs Date Time Temp Pulse Resp B/P Pulse O2 O2 Flow FiO2 Ox Delivery Rate 09/26 0717 98.0 89 18 100/50 93 Room Air 09/26 0000 Nasal 5.0L Cannula 09/25 2326 97.3 73 20 106/60 91 Nasal Cannula 09/25 1624 97.6 121 20 118/68 94 Nasal 5.0L Cannula 09/25 1600 94 Nasal 5.0L Cannula Intake & Output 09/26 1600 09/26 0800 09/26 0000 Intake Total 1000 890 Output Total 0 Balance 1000 890 Intake, IV 1000 800 Intake, Oral 90 Number 1 Bowel Movements Output, Urine 0 Findings Pertinent Lab/[facility] Results: Laboratory Tests 09/26 0436 Chemistry Sodium (137 - 145 mmol/L) 138 Potassium (3.5 - 5.1 mmol/L) 3.5 Chloride (98 - 107 mmol/L) 106 Carbon Dioxide (22 - 30 mmol/L) 26 Anion Gap (5 - 16) 5 BUN (9 - 20 mg/dL) 11 Creatinine (0.7 - 1.2 mg/dL) 2.1 H Estimated GFR (>60 ml/min) 31 L BUN/Creatinine Ratio (7 - 25 %) 5.2 L Calcium (8.4 - 10.2 mg/dL) 7.2 L Phosphorus (2.5 - 4.5 mg/dL) 2.8 Magnesium (1.6 - 2.3 mg/dL) 1.5 L Coagulation PT (9.4 - 12.5 SEC) 80.0 *H INR (0.90 - 1.17) 7.78 *H Hematology CBC w Diff NO MAN DIFF REQ WBC (4.8 - 10.8 /CUMM) 13.8 H RBC (4.70 - 6.10 /CUMM) 2.69 L Hgb (14.0 - 18.0 G/DL) 7.6 L Hct (42 - 52 %) 24.9 L MCV (80.0 - 94.0 FL) 92.3 MCH (27.0 - 31.0 PG) 28.2 RDW (11.5 - 14.5 %) 20.7 H Plt Count (130 - 400 /CUMM) 241 MPV (7.4 - 10.4 FL) 7.8 Gran % (42.2 - 75.2 %) 94.7 H Lymphocytes % (20.5 - 51.1 %) 2.5 L Monocytes % (1.7 - 9.3 %) 2.5 Eosinophils % (0 - 5 %) 0 Basophils % (0.0 - 2.0 %) 0.3 Absolute Granulocytes (1.4 - 6.5 /CUMM) 13.0 H Absolute Lymphocytes (1.2 - 3.4 /CUMM) 0.3 L Absolute Monocytes (0.10 - 0.60 /CUMM) 0.3 Absolute Eosinophils (0.0 - 0.7 /CUMM) 0 Absolute Basophils (0.0 - 0.2 /CUMM) 0 PUBS MCHC (33.0 - 37.0 G/DL) 30.5 L
--- NOTE | 2016-09-26 11:00 | PN- Pulmonary ---
Subjective HPI/Critical Care Issues: pt seen and examined doing better abd pain subsided no dyspnea Objective Current Medications: Current Medications Sig/Kailash Start time Last Medication Dose Route Stop Time Status Admin Acetaminophen 650 MG Q6P PRN 09/24 1400 AC PO Acetaminophen 1,000 MG Q6P PRN 09/24 1400 DC IV Atorvastatin Calcium 40 MG QPM 09/24 2200 AC 09/25 PO 2216 Calcium Carbonate 500 MG TID 09/24 2200 AC 09/26 PO 0838 Ceftazidime 1,000 MG Q24H 09/24 1615 AC 09/25 IV 1622 Cyanocobalamin 1,000 MCG DAILY 09/25 1000 AC 09/26 PO 0838 Ferrous Sulfate 325 MG QPM 09/24 2200 AC 09/25 PO 2216 Guaifenesin 600 MG BID 09/24 2200 AC 09/26 PO 0838 Hydrocortisone 25 MG BID 09/26 1000 AC 09/26 Sodium Succinate IV 0839 Hydrocortisone 50 MG BID 09/24 2200 DC 09/25 Sodium Succinate IV 2216 Insulin Aspart 0 AT BEDTIME 09/25 2200 AC SC Insulin Aspart 0 TIDAC 09/25 1700 AC 09/26 SC 0839 Insulin Aspart 0 Q4 09/24 2200 DC SC Lactobacillus 1 CAP BID 09/26 1000 AC Acidophilus PO Metronidazole 500 MG IQ8 09/25 0000 DC 09/25 N/A 1 UNIT IV 0817 Morphine Sulfate 1 MG Q6P PRN 09/24 1415 DC 09/25 IV 1140 Multivitamins 1 TAB DAILY 09/25 1000 AC 09/26 PO 0839 Omeprazole 20 MG DAILY AC 09/25 0700 AC PO Oxycodone/ 1 TAB Q6P PRN 09/25 1515 AC Acetaminophen PO Oxycodone/ 2 TAB Q6P PRN 09/25 1515 AC Acetaminophen PO Sevelamer Carbonate 800 MG WM 09/24 1700 AC 09/26 PO 0839 Sodium Chloride 1,000 ML Q10H 09/24 1445 AC 09/26 IV 1017 Sodium Chloride 1 SPRAY 4 TIMES/DAY PRN 09/24 1445 AC CARLITOS Vancomycin HCl 1,000 MG ONCE ONE 09/25 1600 DC 09/25 Dextrose/Water 250 ML IV 09/25 1659 1712 Vancomycin HCl See Dose MoWeFr PRN 09/25 1315 AC Insts (1) IV Dose Instructions: (1)Vancomycin HCl: dose based on random Vanco level Vital Signs & I&O Last 24 Hrs of Vitals and I&O: Vital Signs Date Time Temp Pulse Resp B/P Pulse O2 O2 Flow FiO2 Ox Delivery Rate 09/26 716 98.0 89 18 100/50 93 Room Air 09/26 0000 Nasal 5.0L Cannula 09/25 2326 97.3 73 20 106/60 91 Nasal Cannula 09/25 1624 97.6 121 20 118/68 94 Nasal 5.0L Cannula 09/25 1600 94 Nasal 5.0L Cannula Intake & Output 09/26 1600 09/26 0800 09/26 0000 Intake Total 1000 890 Output Total 0 Balance 1000 890 Intake, IV 1000 800 Intake, Oral 90 Number 1 Bowel Movements Output, Urine 0 Exam Other Physical Findings: gen awake and alert, lethargic heent ncat cvs s1, s2 lungs rare rhonchi abd soft, bs+, mild tenderness ext without edema catheters intact Results Last 24 Hrs of Lab Results: Laboratory Tests 09/26/16 0436: Anion Gap 5, Estimated GFR 31 L, BUN/Creatinine Ratio 5.2 L, Calcium 7.2 L, Phosphorus 2.8, Magnesium 1.5 L, PT 80.0 *H, INR 7.78 *H, CBC w Diff NO MAN DIFF REQ, RBC 2.69 L, MCV 92.3, MCH 28.2, RDW 20.7 H, MPV 7.8, Gran % 94.7 H, Lymphocytes % 2.5 L, Monocytes % 2.5, Eosinophils % 0, Basophils % 0.3, Absolute Granulocytes 13.0 H, Absolute Lymphocytes 0.3 L, Absolute Monocytes 0.3, Absolute Eosinophils 0, Absolute Basophils 0, PUBS MCHC 30.5 L Impression/Plan Impression/Plan Impression/Plan: Impression 75 year old man - resolving severe sepsis - probable aspiration pneumonia - recent hypoglycemic episodes resolved - ESRD on HD - Crohn's disease - antiphospholipid syndrome - coumadin - possible adrenal insufficiency Plan -endocrinology, nephrology, ID following -doing well from respiratory perspective -o2 supplementation as needed -steroids per endocrinology -DNR/DNI Call back with any questions
--- NOTE | 2016-09-26 11:35 | PN- Nephrology ---
Assessment/Plan Assessment: ESRD - Dialysis today - no clear need for significant fluid removal. Given that his diarrhea has stopped, there's not a clear need for additional maintenance IVF. Aspiration PNA - WBC improving on abx. Unfortunately failed barium swallow test. Anemia - On Epogen which should be continued with dialysis. Suggestion: -Dialysis today - no fluid removal -To continue on //Fri dialysis schedule starting tomorrow -Cont Epogen with dialysis -Modification of diet and re-evaluation based on MBS Please call [phone] with ?'s Subjective Subjective: No more diarrhea Still on IVF BP improved Reports coughing with some phlegm WBC down to 13.8; afebrile Aspirated with barium swallow - thin liquids Objective Vital Signs and I&Os Vital Signs Date Time Temp Pulse Resp B/P Pulse O2 O2 Flow FiO2 Ox Delivery Rate 09/26 0717 98.0 89 18 100/50 93 Room Air 09/26 0000 Nasal 5.0L Cannula 09/25 2326 97.3 73 20 106/60 91 Nasal Cannula 09/25 1624 97.6 121 20 118/68 94 Nasal 5.0L Cannula 09/25 1600 94 Nasal 5.0L Cannula Intake & Output 09/26 1600 09/26 0400 09/25 1600 09/25 0400 09/24 1600 09/24 0400 Intake Total 0994 566 2152 1700 Output Total 0 45 100 100 Balance 2782 625 5423 1600 -100 Intake, IV 2934 451 2517 1700 Intake, Oral 90 0 0 Number 1 1 2 Bowel Movements Output, Urine 0 45 100 100 Patient 139 lb 140 lb Weight Physical Exam: Gen - improved appearance HEENT - supple CV - RRR Chest - clear anteriorly Abd - soft, nontender Ext - no edema; legs dressed Neuro - AOX3 Current Medications: Current Medications Sig/Kailash Start time Last Medication Dose Route Stop Time Status Admin Acetaminophen 650 MG Q6P PRN 09/24 1400 AC PO Acetaminophen 1,000 MG Q6P PRN 09/24 1400 DC IV Atorvastatin Calcium 40 MG QPM 09/24 2200 AC 09/25 PO 2216 Calcium Carbonate 500 MG TID 09/24 2200 AC 09/26 PO 0838 Ceftazidime 1,000 MG Q24H 09/24 1615 AC 09/25 IV 1622 Cyanocobalamin 1,000 MCG DAILY 09/25 1000 AC 09/26 PO 0838 Ferrous Sulfate 325 MG QPM 09/24 2200 AC 09/25 PO 2216 Guaifenesin 600 MG BID 09/24 2200 AC 09/26 PO 0838 Hydrocortisone 25 MG BID 09/26 1000 AC 09/26 Sodium Succinate IV 0839 Hydrocortisone 50 MG BID 09/24 2200 DC 09/25 Sodium Succinate IV 2216 Insulin Aspart 0 AT BEDTIME 09/25 2200 AC SC Insulin Aspart 0 TIDAC 09/25 1700 AC 09/26 SC 0839 Insulin Aspart 0 Q4 09/24 2200 DC SC Lactobacillus 1 CAP BID 09/26 1000 AC Acidophilus PO Metronidazole 500 MG IQ8 09/25 0000 DC 09/25 N/A 1 UNIT IV 0817 Morphine Sulfate 1 MG Q6P PRN 09/24 1415 DC 09/25 IV 1140 Multivitamins 1 TAB DAILY 09/25 1000 AC 09/26 PO 0839 Omeprazole 20 MG DAILY AC 09/25 0700 AC PO Oxycodone/ 1 TAB Q6P PRN 09/25 1515 AC Acetaminophen PO Oxycodone/ 2 TAB Q6P PRN 09/25 1515 AC Acetaminophen PO Sevelamer Carbonate 800 MG WM 09/24 1700 AC 09/26 PO 0839 Sodium Chloride 1,000 ML Q10H 09/24 1445 AC 09/26 IV 1017 Sodium Chloride 1 SPRAY 4 TIMES/DAY PRN 09/24 1445 AC CARLITOS Vancomycin HCl 1,000 MG ONCE ONE 09/25 1600 DC 09/25 Dextrose/Water 250 ML IV 09/25 1659 1712 Vancomycin HCl See Dose MoWeFr PRN 09/25 1315 AC Insts (1) IV Dose Instructions: (1)Vancomycin HCl: dose based on random Vanco level Results Pertinent Lab Results: Laboratory Tests 09/26 09/25 0436 0555 Chemistry Sodium (137 - 145 mmol/L) 138 135 L Potassium (3.5 - 5.1 mmol/L) 3.5 5.4 H Chloride (98 - 107 mmol/L) 106 105 Carbon Dioxide (22 - 30 mmol/L) 26 19 L Anion Gap (5 - 16) 5 11 BUN (9 - 20 mg/dL) 11 24 H Creatinine (0.7 - 1.2 mg/dL) 2.1 H 4.2 H Estimated GFR (>60 ml/min) 31 L 14 L BUN/Creatinine Ratio (7 - 25 %) 5.2 L Glucose (65 - 99 mg/dL) 97 Lactic Acid (0.7 - 2.1 mmol/L) 2.3 H Calcium (8.4 - 10.2 mg/dL) 7.2 L 7.8 L Phosphorus (2.5 - 4.5 mg/dL) 2.8 4.6 H Magnesium (1.6 - 2.3 mg/dL) 1.5 L 1.2 L Total Bilirubin (0.2 - 1.3 mg/dL) 0.2 AST (17 - 59 U/L) 18 ALT (21 - 72 U/L) 26 Albumin (3.5 - 5.0 g/dL) 1.7 L Coagulation PT (9.4 - 12.5 SEC) 80.0 *H 66.1 *H INR (0.90 - 1.17) 7.78 *H 6.41 *H Hematology CBC w Diff NO MAN DIFF REQ MAN DIFF ORDERED WBC (4.8 - 10.8 /CUMM) 13.8 H 24.6 H RBC (4.70 - 6.10 /CUMM) 2.69 L 3.29 L Hgb (14.0 - 18.0 G/DL) 7.6 L 9.6 L Hct (42 - 52 %) 24.9 L 30.0 L MCV (80.0 - 94.0 FL) 92.3 91.2 MCH (27.0 - 31.0 PG) 28.2 29.1 RDW (11.5 - 14.5 %) 20.7 H 20.6 H Plt Count (130 - 400 /CUMM) 241 309 MPV (7.4 - 10.4 FL) 7.8 8.2 Gran % (42.2 - 75.2 %) 94.7 H 97.3 H Lymphocytes % (20.5 - 51.1 %) 2.5 L 1.5 L Monocytes % (1.7 - 9.3 %) 2.5 1.1 L Eosinophils % (0 - 5 %) 0 0.1 Basophils % (0.0 - 2.0 %) 0.3 0 L Absolute Granulocytes (1.4 - 6.5 /CUMM) 13.0 H 24.0 H Segmented Neutrophils (42.2 - 75.2 %) 78 H Band Neutrophils (0.0 - 5.0 %) 20 H Absolute Lymphocytes (1.2 - 3.4 /CUMM) 0.3 L 0.4 L Lymphocytes (20.5 - 51.1 %) 1 L Monocytes (1.7 - 9.3 %) 1 L Absolute Monocytes (0.10 - 0.60 /CUMM) 0.3 0.3 Absolute Eosinophils (0.0 - 0.7 /CUMM) 0 0 Absolute Basophils (0.0 - 0.2 /CUMM) 0 0 Nucleated RBCs (0.0 - 0.0 /100WBC) 1 H Platelet Estimate (ADEQUATE) ADEQUATE Normocytic RBCs VERIFIED Hypochromic-Microcytic 2+ Anisocytosis 1+ PUBS MCHC (33.0 - 37.0 G/DL) 30.5 L 31.9 L Other Body Source Fld Total RBCs Counted (%) 100 Toxicology Vancomycin Peak (30.0 - 40.0 ug/mL) 11.6 L Random Vancomycin (ug/ml) 11.7 09/24 09/24 09/24 09/24 09/24 2350 2322 1926 1630 1155 Chemistry Lactic Acid (0.7 - 2.1 mmol/L) 2.8 H Cancelled 2.9 H 2.9 H 3.6 H 09/24 1155 Chemistry Sodium (137 - 145 mmol/L) 134 L Potassium (3.5 - 5.1 mmol/L) 5.0 Chloride (98 - 107 mmol/L) 101 Carbon Dioxide (22 - 30 mmol/L) 21 L Anion Gap (5 - 16) 12 BUN (9 - 20 mg/dL) 24 H Creatinine (0.7 - 1.2 mg/dL) 4.0 H Estimated GFR (>60 ml/min) 15 L BUN/Creatinine Ratio (7 - 25 %) 6.0 L Glucose (65 - 99 mg/dL) 112 H Calcium (8.4 - 10.2 mg/dL) 8.4 Total Bilirubin (0.2 - 1.3 mg/dL) 0.3 AST (17 - 59 U/L) 15 L ALT (21 - 72 U/L) 25 Alkaline Phosphatase (< 127 U/L) 155 H Troponin I (<0.11 ng/ml) 0.02 Total Protein (6.3 - 8.2 g/dL) 5.1 L Albumin (3.5 - 5.0 g/dL) 2.1 L Globulin (1.9 - 4.2 gm/dL) 3.0 Albumin/Globulin Ratio (1.1 - 2.2 %) 0.7 L Hematology CBC w Diff MAN DIFF ORDERED WBC (4.8 - 10.8 /CUMM) 20.2 H RBC (4.70 - 6.10 /CUMM) 3.85 L Hgb (14.0 - 18.0 G/DL) 11.1 L Hct (42 - 52 %) 34.8 L MCV (80.0 - 94.0 FL) 90.4 MCH (27.0 - 31.0 PG) 28.8 RDW (11.5 - 14.5 %) 20.0 H Plt Count (130 - 400 /CUMM) 353 MPV (7.4 - 10.4 FL) 7.8 Gran % (42.2 - 75.2 %) 93.9 H Lymphocytes % (20.5 - 51.1 %) 3.8 L Monocytes % (1.7 - 9.3 %) 1.5 L Eosinophils % (0 - 5 %) 0.8 Basophils % (0.0 - 2.0 %) 0 L Absolute Granulocytes (1.4 - 6.5 /CUMM) 19.0 H Segmented Neutrophils (42.2 - 75.2 %) 67 Band Neutrophils (0.0 - 5.0 %) 24 H Absolute Lymphocytes (1.2 - 3.4 /CUMM) 0.8 L Lymphocytes (20.5 - 51.1 %) 4 L Monocytes (1.7 - 9.3 %) 3 Absolute Monocytes (0.10 - 0.60 /CUMM) 0.3 Eosinophils (0 - 5.0 %) 2 Absolute Eosinophils (0.0 - 0.7 /CUMM) 0.2 Absolute Basophils (0.0 - 0.2 /CUMM) 0 Platelet Estimate (ADEQUATE) ADEQUATE Hypochromic-Microcytic 2+ Poikilocytosis 1+ Anisocytosis 1+ PUBS MCHC (33.0 - 37.0 G/DL) 31.9 L Toxicology Random Vancomycin (ug/ml) < 5.0 Urines Urine Color (YEL,AMB,STR) YEL Urine Clarity (CLEAR) TURBD H Urine pH (5.0 - 8.0) 6.5 Ur Specific [place]ley (1.001 - 1.035) 1.025 Urine Protein (NEG,<30 MG/DL) >=300 H Urine Ketones (NEG) TRACE H Urine Nitrite (NEG) NEG Urine Bilirubin (NEG) NEG Urine Urobilinogen (0.1 - 1.0 EU/dl) 0.2 Ur Leukocyte Esterase (NEG) LARGE H Ur Microscopic SEDIMENT EXAMINED Urine WBC (0 - 2 /HPF) PACKD H Micro UA Comment Urine Hemoglobin (NEG) LARGE H Urine Glucose (N MG/DL) NEG Imaging/Other Studies: CT IMPRESSION: 1. Markedly enlarged (hydropic) gallbladder with stones, no change. 2. Bibasilar pneumonia consistent with aspiration. Subtle groundglass opacities in both upper lobes also thought to be inside account representative of an infectious process.
--- NOTE | 2016-09-26 11:36 | NUR ---
SPEECH THERAPY: PT HAD JUST COMPLETED LUNCH TRAY PRIOR TO ST ARRIVAL; RN AND STATE PT HAD NO DIFFICULTY/COUGHING W/ CURRENT DIET (MECH SOFT/GROUND AND HONEY THICK LIQUIDS). PT REFUSING ADDITIONAL TRIALS STATING HE WAS NOT HUNGRY. PT AND RE-EDUCATED RE: RESULTS OF 09/25 MBS; W/ REC. OF MECH SOFT/GROUND AND HONEY THICK LIQUIDS W/ STRICT ASPIRATION PRECAUTIONS. PT NOTED TO BE LAYING DOWN DURING ORAL CARE; ST REPOSITIONED PT UPRIGHT ABLE. ST CONTINUE TO FOLLOW FOR DIET TOLERANCE AND FURTHER EDUCATION OF SAFE SWALLOWING STRATEGIES W/ . D/W RN.
--- NOTE | 2016-09-26 13:08 | PN- Infect Dx ---
Subjective Subjective: Afebrile on steroids. He has a mild cough, which is nonproductive. He has no further abdominal pain but continues to have diarrhea. Objective Last 24 Hrs of Vital Signs/I&O Vital Signs Date Time Temp Pulse Resp B/P Pulse O2 O2 Flow FiO2 Ox Delivery Rate 09/26 0717 98.0 89 18 100/50 93 Room Air 09/26 0000 Nasal 5.0L Cannula 09/25 2326 97.3 73 20 106/60 91 Nasal Cannula 09/25 1624 97.6 121 20 118/68 94 Nasal 5.0L Cannula 09/25 1600 94 Nasal 5.0L Cannula Intake & Output 09/26 1600 09/26 0800 09/26 0000 Intake Total 1000 890 Output Total 0 Balance 1000 890 Intake, IV 1000 800 Intake, Oral 90 Number 1 Bowel Movements Output, Urine 0 Physical Exam Other Physical Findings: He appears more comfortable in no acute distress Neck left subclavian triple lumen catheter site with no inflammation; tunneled dialysis catheter in the right upper chest with no inflammation at the site Lungs scattered rhonchi bilaterally Heart regular rhythm with no murmur Abdomen is soft, nontender with positive bowel sounds Extremities right forearm swelling; ulcerations on the left thigh, left calf and right calf mostly clean with minimal necrosis and no surrounding erythema, exquisitely tender to palpation Results Last 24 Hours of Lab Results: Laboratory Tests 09/26 0436 Chemistry Sodium (137 - 145 mmol/L) 138 Potassium (3.5 - 5.1 mmol/L) 3.5 Chloride (98 - 107 mmol/L) 106 Carbon Dioxide (22 - 30 mmol/L) 26 Anion Gap (5 - 16) 5 BUN (9 - 20 mg/dL) 11 Creatinine (0.7 - 1.2 mg/dL) 2.1 H Estimated GFR (>60 ml/min) 31 L BUN/Creatinine Ratio (7 - 25 %) 5.2 L Calcium (8.4 - 10.2 mg/dL) 7.2 L Phosphorus (2.5 - 4.5 mg/dL) 2.8 Magnesium (1.6 - 2.3 mg/dL) 1.5 L Coagulation PT (9.4 - 12.5 SEC) 80.0 *H INR (0.90 - 1.17) 7.78 *H Hematology CBC w Diff NO MAN DIFF REQ WBC (4.8 - 10.8 /CUMM) 13.8 H RBC (4.70 - 6.10 /CUMM) 2.69 L Hgb (14.0 - 18.0 G/DL) 7.6 L Hct (42 - 52 %) 24.9 L MCV (80.0 - 94.0 FL) 92.3 MCH (27.0 - 31.0 PG) 28.2 RDW (11.5 - 14.5 %) 20.7 H Plt Count (130 - 400 /CUMM) 241 MPV (7.4 - 10.4 FL) 7.8 Gran % (42.2 - 75.2 %) 94.7 H Lymphocytes % (20.5 - 51.1 %) 2.5 L Monocytes % (1.7 - 9.3 %) 2.5 Eosinophils % (0 - 5 %) 0 Basophils % (0.0 - 2.0 %) 0.3 Absolute Granulocytes (1.4 - 6.5 /CUMM) 13.0 H Absolute Lymphocytes (1.2 - 3.4 /CUMM) 0.3 L Absolute Monocytes (0.10 - 0.60 /CUMM) 0.3 Absolute Eosinophils (0.0 - 0.7 /CUMM) 0 Absolute Basophils (0.0 - 0.2 /CUMM) 0 PUBS MCHC (33.0 - 37.0 G/DL) 30.5 L Last 24 Hours of [facility] Results: Blood cultures 2 September 24 negative Urine culture September 24 greater than 100,000 colonies of yeast Recent Imaging Studies: Modified barium swallow September 25 revealed aspiration to just below the level of vocal cords with abnormal pooling of contrast within the valleculae Assessment/Plan Impression: Overall improved, with temperatures normal and white blood cell count decreasing on empiric treatment with Vancomycin and Ceftazidime, now Day 2 of treatment for presumed sepsis most likely secondary to pneumonia. The candiduria has been noted previously and most likely represents asymptomatic infection. His diarrhea has been a chronic problem and appears to have responded in the past to Lomotil and Questran. Suggestion: 1. Symptomatic treatment of his diarrhea with Lomotil and Questran as suggested by GI in the past 2. Vancomycin random level today, with redosing of Vancomycin after dialysis today per protocol 3. Continue Ceftazidime
[2016-09-26 16:56] LABS: ABSOLUTE BASOPHIL COUNT 0 /CUMM (0.0-0.2); ABSOLUTE EOSINOPHIL COUNT 0 /CUMM (0.0-0.7); ABSOLUTE GRANULOCYTE CT 14.8 /CUMM (1.4-6.5); ABSOLUTE LYMPH COUNT 0.4 /CUMM (1.2-3.4); ABSOLUTE MONOCYTE COUNT 0.5 /CUMM (0.10-0.60); BASOPHIL % 0.1 % (0.0-2.0); EOSINOPHIL % 0 % (0-5); HEMATOCRIT 27.6 % (42-52); MEAN CORPUSCULAR HGB 29.3 PG (27.0-31.0); MEAN CORPUSCULAR HGB CONC 31.5 G/DL (33.0-37.0); MEAN CORPUSCULAR VOLUME 92.8 FL (80.0-94.0); MEAN PLATELET VOLUME 8.3 FL (7.4-10.4); PLATELET COUNT 290 /CUMM (130-400); RED BLOOD CELL CT 2.98 /CUMM (4.70-6.10); WHITE BLOOD CELL COUNT 15.7 /CUMM (4.8-10.8)
[2016-09-26 16:57] LABS: GRANULOCYTE % 94.4 % (42.2-75.2)
[2016-09-26 17:23] VITALS: BP 118/64
[2016-09-26 22:41] VITALS: BP 110/60
--- NOTE | 2016-09-27 07:11 | PN- Housestaff ---
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 Denies any abdominal pain or nausea or vomiting. Also reports pain in the legs especially above the knee on the left side. Denies fever or chills, denies headache, denies coughing or SOB. Review of Systems Constitutional: Denies: chills, fever. EENTM: Reports: no symptoms. Cardiovascular: Denies: chest pain, palpitations. Respiratory: Denies: cough, short of breath, sputum production. Gastrointestinal: Reports: diarrhea, changes in stool. Denies: abdominal pain, nausea, vomiting. Genitourinary: Reports: no symptoms. Musculoskeletal: Reports: see HPI. Skin: Reports: lesions. Neurological/Psychological: Reports: no symptoms. Hematologic/Endocrine: Reports: no symptoms. Objective Last 24 Hrs of Vital Signs/I&O Vital Signs Date Time Temp Pulse Resp B/P Pulse O2 O2 Flow FiO2 Ox Delivery Rate 09/27 0749 97.5 92 20 110/60 98 Nasal 2.0L Cannula 09/27 0000 Nasal 4.0L Cannula 09/26 2241 97.9 101 20 110/60 98 09/26 1723 97.3 20 118/64 91 Nasal 4.0L Cannula 09/26 1630 94 Nasal 2.0L Cannula Intake & Output 09/27 1600 / 0800 09/27 0000 Intake Total 1180 1260 Output Total Balance 1180 1260 Intake, IV 700 300 Intake, Oral 480 960 Number 5 6 Bowel Movements Patient 66.678 kg 65.431 kg Weight Physical Exam General Appearance: Alert, Oriented X3, Cooperative, No Acute Distress Skin: there is a pressure injury on the coccyx, 3x1.5 cm with slough covering the surface. there is a left inner thigh wound (6x3 cm) as well as a left post leg wound (30x12 cm) there is a left foot dry stable eschar, there is a left heel stable schar, also a right posterior leg full thickness wound (3x5 cm) HEENT: Atraumatic, EOMI Neck: Supple, No JVD Cardiovascular: Regular Rate, Normal S1, Normal S2, No Murmurs Lungs: Clear to Auscultation, Normal Air Movement Abdomen: Soft, No Tenderness Neurological: Normal Speech, Normal Tone, Cranial Nerves 3-12 NL Extremities: No Edema, Normal Pulses Vascular: Pulses Symmetrical Current Medications: Current Medications Sig/Kailash Start time Last Medication Dose Route Stop Time Status Admin Acetaminophen 650 MG Q6P PRN 09/24 1400 AC PO Atorvastatin Calcium 40 MG QPM 09/24 2200 AC 09/26 PO 2147 Calcium Carbonate 500 MG TID 09/24 2200 AC 09/27 PO 0909 Ceftazidime 1,000 MG Q24H 09/24 1615 AC 09/26 IV 1800 Cholestyramine Resin 1 PAC BID 09/27 1000 AC 09/27 PO 0909 Cyanocobalamin 1,000 MCG DAILY 09/25 1000 AC 09/27 PO 0909 Diphenoxylate HCl/ 2.5 MG BID 09/26 1156 AC 09/27 Atropine PO 0909 Epoetin Ludwig 3,000 UNIT ONCE ONE 09/26 1400 DC IV 09/26 1401 Epoetin Ludwig 2,000 UNIT ONCE ONE 09/26 1400 DC IV 09/26 1401 Ferrous Sulfate 325 MG QPM 09/24 2200 AC 09/26 PO 2147 Guaifenesin 600 MG BID 09/24 2200 AC 09/27 PO 0909 Hydrocortisone 25 MG BID 09/26 1000 DC 09/26 Sodium Succinate IV 2148 Insulin Aspart 0 AT BEDTIME 09/25 2200 AC SC Insulin Aspart 0 TIDAC 09/25 1700 AC 09/27 SC 1229 Lactobacillus 1 CAP WITH MEALS 09/27 0800 AC 09/27 Acidophilus PO 1228 Lactobacillus 1 CAP BID 09/26 1000 DC 09/26 Acidophilus PO 2148 Magnesium Oxide 400 MG ONE ONE 09/26 1830 DC 09/26 PO 09/26 1831 2148 Multivitamins 1 TAB DAILY 09/25 1000 AC 09/27 PO 0909 Omeprazole 20 MG DAILY AC 09/25 0700 AC 09/27 PO 0632 Oxycodone/ 1 TAB Q6P PRN 09/25 1515 AC 09/27 Acetaminophen PO 1234 Oxycodone/ 2 TAB Q6P PRN 09/25 1515 AC 09/26 Acetaminophen PO 2222 Prednisone 5 MG DAILY 09/27 1000 AC 09/27 PO 1047 Sevelamer Carbonate 800 MG WM 09/24 1700 AC 09/27 PO 1228 Sodium Chloride 1,000 ML Q10H 09/24 1445 DC 09/26 IV 2147 Sodium Chloride 1 SPRAY 4 TIMES/DAY PRN 09/24 1445 AC CARLITOS Vancomycin HCl See Dose TuThSa PRN 09/28 0900 AC Insts (1) IV Vancomycin HCl 1,000 MG ONCE ONE 09/27 1300 CAN Dextrose/Water 250 ML IV 09/27 1359 Vancomycin HCl 1,000 MG ONCE ONE 09/27 1130 DC 09/27 Dextrose/Water 250 ML IV 09/27 1229 1253 Vancomycin HCl See Dose MoWeFr PRN 09/25 1315 DC Insts (2) IV Dose Instructions: (1)Vancomycin HCl: dose based on random Vanco level (2)Vancomycin HCl: dose based on random Vanco level Last 24 Hrs of Lab/[facility] Results Last 24 Hrs of Labs/Mics: Laboratory Tests 09/27/16 0647: Anion Gap 4 L, Estimated GFR 54 L, BUN/Creatinine Ratio 3.1 L, PT 70.4 *H, INR 6.83 *H, CBC w Diff NO MAN DIFF REQ, RBC 2.58 L, MCV 92.5, MCH 29.8, RDW 21.1 H, MPV 8.3, Gran % 92.4 H, Lymphocytes % 3.7 L, Monocytes % 3.9, Eosinophils % 0, Basophils % 0 L, Absolute Granulocytes 7.9 H, Absolute Lymphocytes 0.3 L, Absolute Monocytes 0.3, Absolute Eosinophils 0, Absolute Basophils 0, PUBS MCHC 32.3 L, Random Vancomycin 10.9 09/27/16 0603: Random Vancomycin Cancelled 09/26/16 1600: CBC w Diff NO MAN DIFF REQ, RBC 2.98 L, MCV 92.8, MCH 29.3, RDW 22.0 H, MPV 8.3, Gran % 94.4 H, Lymphocytes % 2.5 L, Monocytes % 3.0, Eosinophils % 0, Basophils % 0.1, Absolute Granulocytes 14.8 H, Absolute Lymphocytes 0.4 L, Absolute Monocytes 0.5, Absolute Eosinophils 0, Absolute Basophils 0, PUBS MCHC 31.5 L 09/26/16 1338: Hep Bs Antigen NONREACTIVE, Hep Bs Antibody NONREACTIVE Microbiology 09/27 0030 STOOL: Clostridium difficile Toxin A & B - RECD Assessment/Plan Assessment: Sepsis 2/2 suspected aspiration pneumonia * ID following. Appreciate their recs. * Swallow eval done, Started ground diet and honey thick liquids. * Follow UCx and BCx. * Attempt to collect sputum culture. * Stopped hydrocortisone 50 mg IV BID today * Continue ceftazidime 1 g IV Q8H per ID * Vanc level 10.9 today, gave 1 gram today. per ID Will Check vancomycin level before each dialysis session and adjust dose of Vancomycin. * Flagyl discontinued. Acute hypoxemic respiratory failure - resolved * Provide supplemental oxygen to keep SpO2 > 92%. * Continue Mucinex 600 mg PO BID for cough. Hypotension - resolved Blood pressures have improved with IV fluids. Remains hemodynamically stable. * Monitor hemodynamics. * Monitor strict I/Os. * DC'd fluids Antiphospholipid syndrome INR has further increased to 7.78 today. 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 * Continue to hold warfarin. * Monitor INR daily and resume warfarin when INR is no longer supratherapeutic. T2DM Came with hypoglycemia. Blood sugars in 220-260 range today. * Endocrinology following. Appreciate their recs. * Accu-checks and Novolog TIDAC sliding scale. * Continue to hold prior to admission Levemir. ESRD Dialysis performed yesterday without fluid removal. On HD //Fri. * Nephrology following. Appreciate their recs. * Continue HD on //Fri schedule. * Continue Epogen IV with dialysis. Lower extremity and coccyx wounds There is an unstageable pressure injury on the coccyx, 3x1.5 cm with slough covering the surface. there is a full thickness left inner thigh wound (6x3 cm) as well as a left post leg full thickness wound (30x12 cm). Also there is a left foot dry stable eschar, as well as a left heel stable eschar, also a right posterior leg full thickness wound (3x5 cm). * wound care consult * Recs: cleanse leg and thigh wounds with NS FB hydrogel xeroform and DPD daily. leave heel wounds and foot wounds open to air after daily bedtime swab * cleanse coccyx with NS FB hydrocolloid dressing Q3 days and PRN Renal Dialysis Diet - Ground Diet and Honey Thick Liquids DVT/Prophylaxis: pharmacological Code Status: Do Not Resucitate/Intubat Problem List: 1. ESRD (end stage renal disease) on dialysis 2. IDDM (insulin dependent diabetes mellitus) 3. Crohns disease 4. Peripheral vascular disease 5. Chronic ulcer of left lower extremity 6. Antiphospholipid antibody syndrome Pain Ratin Pain Location: left leg Pain Goal: Pain 4 or less Pain Plan: tylenol for mild pain percocet for severe pain Tomorrow's Labs & Rationales: CBC, BEP, INR, Vanc level anemia, ESRD on dialysis, On vancomycin per dialysis protocol, supratherapeutic INR on coumadin
[2016-09-27 07:44] LABS: PT 70.4 SEC (9.4-12.5)
[2016-09-27 07:49] VITALS: BP 110/60
--- NOTE | 2016-09-27 08:41 | PN- Diabetes ---
Assessment/Plan Assessment: Mr. Marvin is a 76-year-old gentleman with past medical history of DVT on Coumadin therapy, hypertension, diabetes, CKD stage V currently on hemodialysis, peripheral vascular disease, left lower extremity necrotizing nonhealing ulcers, history of cellulitis with Pseudomonas and Crohn's disease status post bowel resection and on chronic prednisone therapy, multiple admissions over past 2-3 months, presented with fever, changes of mental status, hypotension and hypoglycemia. He probably has had aspiration pneumonia. He was admitted to ICU for sepsis. Hydrocortisone was decreased to 25 mg iv every 12 hours. He has been eating. His FSGs were 217, 166, 196 and 225. He is on Novolog coverage before meals and Novolog coverage at bedtime. Plan: 1. stop hydrocortisone today; 2. start prednisone 5 mg daily; 3. continue the current Novolog coverage before meals and Novolog coverage at bedtime. 4. monitor FSGs. 5. replete K. will follow. Subjective Subjective: He feels okay this morning. Objective Last 24 Hrs of Vital Signs/I&O Vital Signs Date Time Temp Pulse Resp B/P Pulse O2 O2 Flow FiO2 Ox Delivery Rate 09/27 0749 97.5 92 20 110/60 98 Nasal 2.0L Cannula 09/27 0000 Nasal 4.0L Cannula 09/26 2241 97.9 101 20 110/60 98 09/26 1723 97.3 20 118/64 91 Nasal 4.0L Cannula 09/26 1630 94 Nasal 2.0L Cannula Intake & Output 09/27 1600 09/27 0800 09/27 0000 Intake Total 1180 1260 Output Total Balance 1180 1260 Intake, IV 700 300 Intake, Oral 480 960 Number 5 6 Bowel Movements Patient 147 lb 144 lb Weight Findings Pertinent Lab/[facility] Results: Laboratory Tests 09/27 09/26 09/26 0647 1600 1338 Chemistry Sodium (137 - 145 mmol/L) 138 Potassium (3.5 - 5.1 mmol/L) 3.1 L Chloride (98 - 107 mmol/L) 106 Carbon Dioxide (22 - 30 mmol/L) 28 Anion Gap (5 - 16) 4 L BUN (9 - 20 mg/dL) 4 L Creatinine (0.7 - 1.2 mg/dL) 1.3 H Estimated GFR (>60 ml/min) 54 L BUN/Creatinine Ratio (7 - 25 %) 3.1 L Coagulation PT (9.4 - 12.5 SEC) 70.4 *H INR (0.90 - 1.17) 6.83 *H Hematology CBC w Diff Pending NO MAN DIFF REQ WBC (4.8 - 10.8 /CUMM) Pending 15.7 H RBC (4.70 - 6.10 /CUMM) Pending 2.98 L Hgb (14.0 - 18.0 G/DL) Pending 8.7 L Hct (42 - 52 %) Pending 27.6 L MCV (80.0 - 94.0 FL) Pending 92.8 MCH (27.0 - 31.0 PG) Pending 29.3 RDW (11.5 - 14.5 %) Pending 22.0 H Plt Count (130 - 400 /CUMM) Pending 290 MPV (7.4 - 10.4 FL) Pending 8.3 Gran % (42.2 - 75.2 %) 94.4 H Lymphocytes % (20.5 - 51.1 %) 2.5 L Monocytes % (1.7 - 9.3 %) 3.0 Eosinophils % (0 - 5 %) 0 Basophils % (0.0 - 2.0 %) 0.1 Absolute Granulocytes (1.4 - 6.5 /CUMM) 14.8 H Absolute Lymphocytes (1.2 - 3.4 /CUMM) 0.4 L Absolute Monocytes (0.10 - 0.60 /CUMM) 0.5 Absolute Eosinophils (0.0 - 0.7 /CUMM) 0 Absolute Basophils (0.0 - 0.2 /CUMM) 0 PUBS MCHC (33.0 - 37.0 G/DL) Pending 31.5 L Serology Hep Bs Antigen (NONREACTIVE) NONREACTIVE Hep Bs Antibody (NONREACTIVE) NONREACTIVE
[2016-09-27 08:47] LABS: ABSOLUTE BASOPHIL COUNT 0 /CUMM (0.0-0.2); ABSOLUTE EOSINOPHIL COUNT 0 /CUMM (0.0-0.7); ABSOLUTE GRANULOCYTE CT 7.9 /CUMM (1.4-6.5); ABSOLUTE LYMPH COUNT 0.3 /CUMM (1.2-3.4); ABSOLUTE MONOCYTE COUNT 0.3 /CUMM (0.10-0.60); BASOPHIL % 0 % (0.0-2.0); EOSINOPHIL % 0 % (0-5); HEMATOCRIT 23.9 % (42-52); MEAN CORPUSCULAR HGB 29.8 PG (27.0-31.0); MEAN CORPUSCULAR HGB CONC 32.3 G/DL (33.0-37.0); MEAN CORPUSCULAR VOLUME 92.5 FL (80.0-94.0); MEAN PLATELET VOLUME 8.3 FL (7.4-10.4); PLATELET COUNT 235 /CUMM (130-400); RBC DISTRIBUTION WIDTH 21.1 % (11.5-14.5); RED BLOOD CELL CT 2.58 /CUMM (4.70-6.10); WHITE BLOOD CELL COUNT 8.6 /CUMM (4.8-10.8)
--- NOTE | 2016-09-27 09:05 | NUR ---
WOUND CARE: REQUESTED BY NURSING TO EVAL PT FOR SKIN ALTERATIONS PRESENT ON ADMISSION - PT EVALUATED 3 1145 AM FOR DRESSING CHANGE AND EVAL- COCCYX NOTED WITH AN UNSTAGEABLE PRESSURE INJURY 3 X 1.5 CM SLOUGH COVERING SUPERFICIAL BASE - LEFT INNER THIGH 5.8 X 3 CM MOIST FULL THICNKNESS WOUND WITH BLEEDING VIABLE FILL - LEFT POST LEG 30X12 CM FULL THICNKESS WOUND WITH EXPOSED LATERAL TENDON ADN ACHILIES TENDON WITH DRY DESICATED TENDON BROWN DISCOLORED - LEFT FOOT 3.` X 5 CM DRY STABLE ESCHAR - LEFT HEEL 1X1 CM DRY STGABLE ESCHAR - RIGHT POSTERIOR LEG 5X3 CM FULL THICNKESS OPEN AREA VARYING MOIST RED AND BLACVK SCABBED TISSUE - ALL WOUNDS CLEANSED WITH NS AND TX APPLIED PER MD RECOMMENDATION - DR FULLER PRESENT AT TIME OF ASSESSMENT RECOMMNEDATION: CLEANSE LEG AND THIGH WOUNDS WITH NS FB HYDROGEL XEROFORM AND DPD DAILY - LEAVE HEEL WOUNDS AND FOOT WOUNDS OPEN TO AIR AFTER DAILY BETADINE SWAB - CLEANSE COCCYX WITH NS FB HYDROCOLLOD DRESSING Q 3 DAYS AND PRN - CONT WITH CLINITRON MATTREESS
[2016-09-27 09:51] LABS: GRANULOCYTE % 92.4 % (42.2-75.2)
--- NOTE | 2016-09-27 12:58 | PN- Infect Dx ---
Subjective Subjective: Afebrile on steroids. He reports no discomfort presently. He continues to have diarrhea. His cough has improved. Objective Last 24 Hrs of Vital Signs/I&O Vital Signs Date Time Temp Pulse Resp B/P Pulse O2 O2 Flow FiO2 Ox Delivery Rate 09/27 0749 97.5 92 20 110/60 98 Nasal 2.0L Cannula 09/27 0000 Nasal 4.0L Cannula 09/26 2241 97.9 101 20 110/60 98 09/26 1723 97.3 20 118/64 91 Nasal 4.0L Cannula 09/26 1630 94 Nasal 2.0L Cannula Intake & Output 09/27 1600 09/27 0800 09/27 0000 Intake Total 1180 1260 Output Total Balance 1180 1260 Intake, IV 700 300 Intake, Oral 480 960 Number 5 6 Bowel Movements Patient 147 lb 144 lb Weight Physical Exam Other Physical Findings: He appears comfortable in no acute distress Neck left subclavian triple-lumen catheter site with no inflammation at the site ; tunneled dialysis catheter in the right upper chest with no inflammation at the site Lungs bibasilar crackles Heart regular rhythm with no murmur Abdomen soft, nontender with positive bowel sounds Extremities dressings intact over the lower extremity ulcers Results Last 24 Hours of Lab Results: Laboratory Tests 09/27 09/27 0647 0603 Chemistry Sodium (137 - 145 mmol/L) 138 Potassium (3.5 - 5.1 mmol/L) 3.1 L Chloride (98 - 107 mmol/L) 106 Carbon Dioxide (22 - 30 mmol/L) 28 Anion Gap (5 - 16) 4 L BUN (9 - 20 mg/dL) 4 L Creatinine (0.7 - 1.2 mg/dL) 1.3 H Estimated GFR (>60 ml/min) 54 L BUN/Creatinine Ratio (7 - 25 %) 3.1 L Coagulation PT (9.4 - 12.5 SEC) 70.4 *H INR (0.90 - 1.17) 6.83 *H Hematology CBC w Diff NO MAN DIFF REQ WBC (4.8 - 10.8 /CUMM) 8.6 RBC (4.70 - 6.10 /CUMM) 2.58 L Hgb (14.0 - 18.0 G/DL) 7.7 L Hct (42 - 52 %) 23.9 L MCV (80.0 - 94.0 FL) 92.5 MCH (27.0 - 31.0 PG) 29.8 RDW (11.5 - 14.5 %) 21.1 H Plt Count (130 - 400 /CUMM) 235 MPV (7.4 - 10.4 FL) 8.3 Gran % (42.2 - 75.2 %) 92.4 H Lymphocytes % (20.5 - 51.1 %) 3.7 L Monocytes % (1.7 - 9.3 %) 3.9 Eosinophils % (0 - 5 %) 0 Basophils % (0.0 - 2.0 %) 0 L Absolute Granulocytes (1.4 - 6.5 /CUMM) 7.9 H Absolute Lymphocytes (1.2 - 3.4 /CUMM) 0.3 L Absolute Monocytes (0.10 - 0.60 /CUMM) 0.3 Absolute Eosinophils (0.0 - 0.7 /CUMM) 0 Absolute Basophils (0.0 - 0.2 /CUMM) 0 PUBS MCHC (33.0 - 37.0 G/DL) 32.3 L Toxicology Random Vancomycin (ug/ml) 10.9 Cancelled 09/26 09/26 1600 1338 Hematology CBC w Diff NO MAN DIFF REQ WBC (4.8 - 10.8 /CUMM) 15.7 H RBC (4.70 - 6.10 /CUMM) 2.98 L Hgb (14.0 - 18.0 G/DL) 8.7 L Hct (42 - 52 %) 27.6 L MCV (80.0 - 94.0 FL) 92.8 MCH (27.0 - 31.0 PG) 29.3 RDW (11.5 - 14.5 %) 22.0 H Plt Count (130 - 400 /CUMM) 290 MPV (7.4 - 10.4 FL) 8.3 Gran % (42.2 - 75.2 %) 94.4 H Lymphocytes % (20.5 - 51.1 %) 2.5 L Monocytes % (1.7 - 9.3 %) 3.0 Eosinophils % (0 - 5 %) 0 Basophils % (0.0 - 2.0 %) 0.1 Absolute Granulocytes (1.4 - 6.5 /CUMM) 14.8 H Absolute Lymphocytes (1.2 - 3.4 /CUMM) 0.4 L Absolute Monocytes (0.10 - 0.60 /CUMM) 0.5 Absolute Eosinophils (0.0 - 0.7 /CUMM) 0 Absolute Basophils (0.0 - 0.2 /CUMM) 0 PUBS MCHC (33.0 - 37.0 G/DL) 31.5 L Serology Hep Bs Antigen (NONREACTIVE) NONREACTIVE Hep Bs Antibody (NONREACTIVE) NONREACTIVE Last 24 Hours of [facility] Results: Stool C. difficile September 27 pending Assessment/Plan Impression: Overall improved, with temperatures and white blood cell count now normal on empiric treatment with Vancomycin and Ceftazidime, now Day 3 of treatment for presumed sepsis most likely secondary to pneumonia, though he apparently did not receive Vancomycin yesterday after dialysis. The candiduria has been noted previously and most likely represents asymptomatic infection. His diarrhea has been a chronic problem and appears to have responded in the past to Lomotil and Questran. Suggestion: 1. Follow-up stool for C. difficile 2. Would increase the frequency of Lomotil if C. difficile is negative 3. Re-dose with Vancomycin today 4. Obtain a random Vancomycin level in the a.m. and re-dose with Vancomycin after dialysis per protocol 5. Continue Ceftazidime
[2016-09-27 14:51] VITALS: BP 132/72
--- NOTE | 2016-09-27 14:56 | NUR ---
NURSING NOTE: PT VS BP 132/72, PULSE 47, TEMP 97.8, O2 SAT 94% ON 4L NC. PT DENIES CHEST PAIN. CONCEPCION DONALD #[id number] AWARE. WILL CONTINUE TO MONITOR.
--- NOTE | 2016-09-27 15:42 | PN- Nephrology ---
Assessment/Plan Assessment: ESRD - No need for dialysis today. Aspiration PNA - Clinically improving on abx; WBC down. Unfortunately failed barium swallow test. Hopefully this won't be a recurrent problem for him with the appropriate diet. Anemia - On Epogen which should be continued with dialysis. Not clear for Hg fluctuations - no clear bleeding. Suggestion: -No need for dialysis today -To continue on //Fri dialysis schedule -Cont Epogen with dialysis -Modification of diet and re-evaluation based on MBS Please call [phone] with ?'s Subjective Subjective: Overall feeling better although says still weak 09/24 - +VRE swab and +yeast in urine Objective Vital Signs and I&Os Vital Signs Date Time Temp Pulse Resp B/P Pulse O2 O2 Flow FiO2 Ox Delivery Rate 09/27 1451 97.8 47 20 132/72 94 Nasal 2.0L Cannula 09/27 0749 97.5 92 20 110/60 98 Nasal 2.0L Cannula 09/27 0000 Nasal 4.0L Cannula 09/26 2241 97.9 101 20 110/60 98 09/26 1723 97.3 20 118/64 91 Nasal 4.0L Cannula 09/26 1630 94 Nasal 2.0L Cannula Intake & Output 09/27 1600 09/27 0400 09/26 1600 09/26 0400 09/25 1600 09/25 0400 Intake Total 1180 1260 2429 405 3826 1700 Output Total 2 0 45 100 Balance 1180 1260 474 026 8291 1600 Intake, IV 911 153 5892 800 1479 1700 Intake, Oral 480 960 90 0 0 Number 5 6 1 1 2 Bowel Movements Output, Stool 2 Output, Urine 0 45 100 Patient 147 lb 144 lb 139 lb Weight Physical Exam: Gen - improved appearance HEENT - supple CV - RRR Chest - clear anteriorly Abd - soft, nontender Ext - no edema; legs dressed Neuro - AOX3 Current Medications: Current Medications Sig/Kailash Start time Last Medication Dose Route Stop Time Status Admin Acetaminophen 650 MG Q6P PRN 09/24 1400 AC PO Atorvastatin Calcium 40 MG QPM 09/24 2200 AC 09/26 PO 2147 Calcium Carbonate 500 MG TID 09/24 2200 AC 09/27 PO 0909 Ceftazidime 1,000 MG Q24H 09/24 1615 AC 09/26 IV 1800 Cholestyramine Resin 1 PAC BID 09/27 1000 AC 09/27 PO 0909 Cyanocobalamin 1,000 MCG DAILY 09/25 1000 AC 09/27 PO 0909 Diphenoxylate HCl/ 2.5 MG BID 09/26 1156 AC 09/27 Atropine PO 0909 Ferrous Sulfate 325 MG QPM 09/24 2200 AC 09/26 PO 2147 Guaifenesin 600 MG BID 09/24 2200 AC 09/27 PO 0909 Hydrocortisone 25 MG BID 09/26 1000 DC 09/26 Sodium Succinate IV 2148 Insulin Aspart 0 AT BEDTIME 09/25 2200 AC SC Insulin Aspart 0 TIDAC 09/25 1700 AC 09/27 SC 1229 Lactobacillus 1 CAP WITH MEALS 09/27 0800 AC 09/27 Acidophilus PO 1228 Lactobacillus 1 CAP BID 09/26 1000 DC 09/26 Acidophilus PO 2148 Magnesium Oxide 400 MG ONE ONE 09/26 1830 DC 09/26 PO 09/26 1831 2148 Multivitamins 1 TAB DAILY 09/25 1000 AC 09/27 PO 0909 Omeprazole 20 MG DAILY AC 09/25 0700 AC 09/27 PO 0632 Oxycodone/ 1 TAB Q6P PRN 09/25 1515 AC 09/27 Acetaminophen PO 1234 Oxycodone/ 2 TAB Q6P PRN 09/25 1515 AC 09/26 Acetaminophen PO 2222 Patient Medication 1 ED .STK-MED ONE 09/27 1344 DC Teaching ED 09/27 1345 Prednisone 5 MG DAILY 09/27 1000 AC 09/27 PO 1047 Sevelamer Carbonate 800 MG WM 09/24 1700 AC 09/27 PO 1228 Sodium Chloride 1,000 ML Q10H 09/24 1445 DC 09/26 IV 2147 Sodium Chloride 1 SPRAY 4 TIMES/DAY PRN 09/24 1445 AC CARLITOS Vancomycin HCl See Dose TuThSa PRN 09/28 0900 AC Insts (1) IV Vancomycin HCl 1,000 MG ONCE ONE 09/27 1300 CAN Dextrose/Water 250 ML IV 09/27 1359 Vancomycin HCl 1,000 MG ONCE ONE 09/27 1130 DC 09/27 Dextrose/Water 250 ML IV 09/27 1229 1253 Vancomycin HCl See Dose MoWeFr PRN 09/25 1315 DC Insts (2) IV Dose Instructions: (1)Vancomycin HCl: dose based on random Vanco level (2)Vancomycin HCl: dose based on random Vanco level Results Pertinent Lab Results: Laboratory Tests 09/27 09/27 0647 0603 Chemistry Sodium (137 - 145 mmol/L) 138 Potassium (3.5 - 5.1 mmol/L) 3.1 L Chloride (98 - 107 mmol/L) 106 Carbon Dioxide (22 - 30 mmol/L) 28 Anion Gap (5 - 16) 4 L BUN (9 - 20 mg/dL) 4 L Creatinine (0.7 - 1.2 mg/dL) 1.3 H Estimated GFR (>60 ml/min) 54 L BUN/Creatinine Ratio (7 - 25 %) 3.1 L Coagulation PT (9.4 - 12.5 SEC) 70.4 *H INR (0.90 - 1.17) 6.83 *H Hematology CBC w Diff NO MAN DIFF REQ WBC (4.8 - 10.8 /CUMM) 8.6 RBC (4.70 - 6.10 /CUMM) 2.58 L Hgb (14.0 - 18.0 G/DL) 7.7 L Hct (42 - 52 %) 23.9 L MCV (80.0 - 94.0 FL) 92.5 MCH (27.0 - 31.0 PG) 29.8 RDW (11.5 - 14.5 %) 21.1 H Plt Count (130 - 400 /CUMM) 235 MPV (7.4 - 10.4 FL) 8.3 Gran % (42.2 - 75.2 %) 92.4 H Lymphocytes % (20.5 - 51.1 %) 3.7 L Monocytes % (1.7 - 9.3 %) 3.9 Eosinophils % (0 - 5 %) 0 Basophils % (0.0 - 2.0 %) 0 L Absolute Granulocytes (1.4 - 6.5 /CUMM) 7.9 H Absolute Lymphocytes (1.2 - 3.4 /CUMM) 0.3 L Absolute Monocytes (0.10 - 0.60 /CUMM) 0.3 Absolute Eosinophils (0.0 - 0.7 /CUMM) 0 Absolute Basophils (0.0 - 0.2 /CUMM) 0 PUBS MCHC (33.0 - 37.0 G/DL) 32.3 L Toxicology Random Vancomycin (ug/ml) 10.9 Cancelled 09/26 09/26 1600 1338 Hematology CBC w Diff NO MAN DIFF REQ WBC (4.8 - 10.8 /CUMM) 15.7 H RBC (4.70 - 6.10 /CUMM) 2.98 L Hgb (14.0 - 18.0 G/DL) 8.7 L Hct (42 - 52 %) 27.6 L MCV (80.0 - 94.0 FL) 92.8 MCH (27.0 - 31.0 PG) 29.3 RDW (11.5 - 14.5 %) 22.0 H Plt Count (130 - 400 /CUMM) 290 MPV (7.4 - 10.4 FL) 8.3 Gran % (42.2 - 75.2 %) 94.4 H Lymphocytes % (20.5 - 51.1 %) 2.5 L Monocytes % (1.7 - 9.3 %) 3.0 Eosinophils % (0 - 5 %) 0 Basophils % (0.0 - 2.0 %) 0.1 Absolute Granulocytes (1.4 - 6.5 /CUMM) 14.8 H Absolute Lymphocytes (1.2 - 3.4 /CUMM) 0.4 L Absolute Monocytes (0.10 - 0.60 /CUMM) 0.5 Absolute Eosinophils (0.0 - 0.7 /CUMM) 0 Absolute Basophils (0.0 - 0.2 /CUMM) 0 PUBS MCHC (33.0 - 37.0 G/DL) 31.5 L Serology Hep Bs Antigen (NONREACTIVE) NONREACTIVE Hep Bs Antibody (NONREACTIVE) NONREACTIVE 09/26 09/25 4546 1469 Chemistry Sodium (137 - 145 mmol/L) 138 135 L Potassium (3.5 - 5.1 mmol/L) 3.5 5.4 H Chloride (98 - 107 mmol/L) 106 105 Carbon Dioxide (22 - 30 mmol/L) 26 19 L Anion Gap (5 - 16) 5 11 BUN (9 - 20 mg/dL) 11 24 H Creatinine (0.7 - 1.2 mg/dL) 2.1 H 4.2 H Estimated GFR (>60 ml/min) 31 L 14 L BUN/Creatinine Ratio (7 - 25 %) 5.2 L Glucose (65 - 99 mg/dL) 97 Lactic Acid (0.7 - 2.1 mmol/L) 2.3 H Calcium (8.4 - 10.2 mg/dL) 7.2 L 7.8 L Phosphorus (2.5 - 4.5 mg/dL) 2.8 4.6 H Magnesium (1.6 - 2.3 mg/dL) 1.5 L 1.2 L Total Bilirubin (0.2 - 1.3 mg/dL) 0.2 AST (17 - 59 U/L) 18 ALT (21 - 72 U/L) 26 Albumin (3.5 - 5.0 g/dL) 1.7 L Coagulation PT (9.4 - 12.5 SEC) 80.0 *H 66.1 *H INR (0.90 - 1.17) 7.78 *H 6.41 *H Hematology CBC w Diff NO MAN DIFF REQ MAN DIFF ORDERED WBC (4.8 - 10.8 /CUMM) 13.8 H 24.6 H RBC (4.70 - 6.10 /CUMM) 2.69 L 3.29 L Hgb (14.0 - 18.0 G/DL) 7.6 L 9.6 L Hct (42 - 52 %) 24.9 L 30.0 L MCV (80.0 - 94.0 FL) 92.3 91.2 MCH (27.0 - 31.0 PG) 28.2 29.1 RDW (11.5 - 14.5 %) 20.7 H 20.6 H Plt Count (130 - 400 /CUMM) 241 309 MPV (7.4 - 10.4 FL) 7.8 8.2 Gran % (42.2 - 75.2 %) 94.7 H 97.3 H Lymphocytes % (20.5 - 51.1 %) 2.5 L 1.5 L Monocytes % (1.7 - 9.3 %) 2.5 1.1 L Eosinophils % (0 - 5 %) 0 0.1 Basophils % (0.0 - 2.0 %) 0.3 0 L Absolute Granulocytes (1.4 - 6.5 /CUMM) 13.0 H 24.0 H Segmented Neutrophils (42.2 - 75.2 %) 78 H Band Neutrophils (0.0 - 5.0 %) 20 H Absolute Lymphocytes (1.2 - 3.4 /CUMM) 0.3 L 0.4 L Lymphocytes (20.5 - 51.1 %) 1 L Monocytes (1.7 - 9.3 %) 1 L Absolute Monocytes (0.10 - 0.60 /CUMM) 0.3 0.3 Absolute Eosinophils (0.0 - 0.7 /CUMM) 0 0 Absolute Basophils (0.0 - 0.2 /CUMM) 0 0 Nucleated RBCs (0.0 - 0.0 /100WBC) 1 H Platelet Estimate (ADEQUATE) ADEQUATE Normocytic RBCs VERIFIED Hypochromic-Microcytic 2+ Anisocytosis 1+ PUBS MCHC (33.0 - 37.0 G/DL) 30.5 L 31.9 L Other Body Source Fld Total RBCs Counted (%) 100 Toxicology Vancomycin Peak (30.0 - 40.0 ug/mL) 11.6 L Random Vancomycin (ug/ml) 11.7 09/24 09/24 09/24 09/24 2350 2322 1926 1630 Chemistry Lactic Acid (0.7 - 2.1 mmol/L) 2.8 H Cancelled 2.9 H 2.9 H Imaging/Other Studies: EXAM TYPE: RAD - XRY-MODIFIED BARIUM SWALLOW EXAMINATION: XR MODIFIED BARIUM SWALLOW CLINICAL INFORMATION: Aspiration pneumonia, recurrent episodes. COMPARISON: None. TECHNIQUE: A modified barium swallow was performed with speech pathologist in attendance. Pur?e, honey thick, nectar thick, thin, and cracker consistencies were given to the patient and the swallowing mechanism was observed fluoroscopically with several spot films taken. FLUOROSCOPY TIME: 3 minutes 30 seconds. FINDINGS: With all consistencies, the oropharyngeal phase of swallowing is disordered with difficulty in posterior bolus propagation and tongue pumping seen. There is significant pooling of contrast seen within the valleculae and to a lesser extent in the piriform sinuses. The patient is unable to clear this contrast on successive dry swallows or on successive swallows of thinner consistency. With thin liquid barium, niurka aspiration is seen to just below the level of the vocal cords, eliciting only a weak cough reflex, which is ineffectual in clearing the contrast. IMPRESSION: 1. Aspiration to just below the level of the vocal cords seen with thin liquid barium. 2. Disordered oral phase of swallowing. 3. Abnormal pooling of contrast within the valleculae. Patient unable to clear with successive swallows. 4. Speech pathologist assessment issued separately.
[2016-09-27 22:07] VITALS: BP 128/74
[2016-09-28 06:56] VITALS: BP 135/70
--- NOTE | 2016-09-28 08:18 | PN- Housestaff ---
CRISTINO HEATH,[facility] 09/28/16 0818: Subjective Follow-up For: ESRD on dialysis Hypoglycemia Hypotension Possible aspiration PNA Chronic foot ulcer CHronic DVT on coumadin with supratherapeutic INR Subjective: Patient was seen and examined this morning, he had dialysis session this morning. Patient was alert oriented 3, didn't have any complaint, denied dizziness, lightheadedness, visual changes, chest pain, palpitation, tremors. His blood sugar on bedside glucose meter was 50, patient was given 2 cups of apple juice but his blood sugars continue to be less than 50. Patient had 2 bowel movement today, one of them was diarrhea, denied abdominal pain, nausea or vomiting. Vital signs are stable Review of Systems Constitutional: Reports: no symptoms. Objective Last 24 Hrs of Vital Signs/I&O Vital Signs Date Time Temp Pulse Resp B/P Pulse O2 O2 Flow FiO2 Ox Delivery Rate 09/28 0750 94 Nasal 4.0L Cannula 09/28 0656 97.7 78 20 135/70 94 09/28 0000 94 Nasal 4.0L Cannula 09/27 2207 98.2 52 20 128/74 94 Nasal Cannula 09/27 1600 94 Nasal 4.0L Cannula 09/27 1451 97.8 47 20 132/72 94 Nasal 2.0L Cannula Intake & Output 09/28 1600 09/28 0800 09/28 0000 Intake Total 600 Output Total 1 175 2 Balance -1 -175 598 Intake, Oral 600 Number 3 3 Bowel Movements Output, Stool 1 2 Output, Urine 175 Patient 63.957 kg 67.132 kg Weight Physical Exam General Appearance: Alert, Oriented X3, Cooperative, No Acute Distress Skin: No Rashes HEENT: Atraumatic, PERRLA, EOMI, Mucous Membr. moist/pink Cardiovascular: Normal S1, Normal S2, No Murmurs, irrigular Lungs: Clear to Auscultation, Normal Air Movement Abdomen: Normal Bowel Sounds, Soft, No Tenderness Neurological: Normal Speech, Strength at 5/5 X4 Ext, Normal Tone, Cranial Nerves 3-12 NL, Reflexes 2+ Extremities: No Clubbing, No Cyanosis, No Edema, Normal Pulses Assessment/Plan Assessment: Sepsis 2/2 suspected aspiration pneumonia * ID following. Appreciate their recs. * Swallow eval done, Started ground diet and honey thick liquids. * Follow UCx and BCx. * Attempt to collect sputum culture. * Patient remained to be afebrile with stable vital signs * Continue ceftazidime 1 g IV Q8H per ID * Vanc random level was checked this morning, adjusted dose was given after dialysis per pharmacy recommendation * Flagyl discontinued. Acute hypoxemic respiratory failure - resolved * Provide supplemental oxygen to keep SpO2 > 92%. * Continue Mucinex 600 mg PO BID for cough. Hypotension - resolved Blood pressures have improved with IV fluids. Remains hemodynamically stable. * Monitor hemodynamics. * Monitor strict I/Os. * DC'd fluids Antiphospholipid syndrome INR has further increased to 10 <7.78 today. 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 * 10 mg of vitamin K oral was given * Continue to hold warfarin. * Monitor INR daily and resume warfarin when INR is no longer supratherapeutic. T2DM Came with hypoglycemia. Blood sugar this morning was 50 refractory to glucose intake * 50 mg of dextrose push was given * Follow-up serum glucose level * Adjustment to NovoLog coverage at bedtime was done * Endocrinology following. Appreciate their recs. * Accu-checks and Novolog TIDAC sliding scale. * Continue to hold prior to admission Levemir. ESRD Dialysis performed yesterday without fluid removal. On HD //Sat. * Nephrology following. Appreciate their recs. * Continue HD on //Fri schedule. * Continue Epogen IV with dialysis. * Watch hypokalemia Lower extremity and coccyx wounds There is an unstageable pressure injury on the coccyx, 3x1.5 cm with slough covering the surface. there is a full thickness left inner thigh wound (6x3 cm) as well as a left post leg full thickness wound (30x12 cm). Also there is a left foot dry stable eschar, as well as a left heel stable eschar, also a right posterior leg full thickness wound (3x5 cm). * wound care consult * Recs: cleanse leg and thigh wounds with NS FB hydrogel xeroform and DPD daily. leave heel wounds and foot wounds open to air after daily bedtime swab * cleanse coccyx with NS FB hydrocolloid dressing Q3 days and PRN Renal Dialysis Diet - Ground Diet and Honey Thick Liquids DVT/Prophylaxis: pharmacological Code Status: Do Not Resucitate/Intubat Problem List: 1. ESRD (end stage renal disease) on dialysis 2. IDDM (insulin dependent diabetes mellitus) 3. Peripheral vascular disease 4. Crohns disease Pain Ratin Pain Location: Non- Pain Goal: Pain 4 or less Pain Plan: tylenol for mild pain percocet for severe pain Tomorrow's Labs & Rationales: CBC, BEP, INR ALY BOWEN MD 09/28/16 1400: Attending MD Review Statement Attending Statement Attending MD Statement: examined this patient, discuss w/resident/PA/MEAT BLENDER, agreed w/resident/PA/MEAT BLENDER, reviewed EMR data (avail), discussed with nursing, discussed with case mgmt, reviewed images, amended to note Attending Assessment/Plan: Patient seen and examined, offers no complaints. His blood sugar was low this morning therefore he received some orange juice as well as will give him an amp of D50. Vital Signs Date Time Temp Pulse Resp B/P Pulse O2 O2 Flow FiO2 Ox Delivery Rate 09/28 0750 94 Nasal 4.0L Cannula 09/28 0656 97.7 78 20 135/70 94 09/28 0000 94 Nasal 4.0L Cannula 09/27 2207 98.2 52 20 128/74 94 Nasal Cannula 09/27 1600 94 Nasal 4.0L Cannula 09/27 1451 97.8 47 20 132/72 94 Nasal 2.0L Cannula on exam; aox3, nad. cv; s1,s2, rrr resp; mostly clear. abd; soft, nt, bs+ ext; no edema. diarrhea seems to be better. Laboratory Tests 09/28 09/28 09/28 1318 1311 0800 Chemistry Sodium (137 - 145 mmol/L) 139 138 Potassium (3.5 - 5.1 mmol/L) 3.1 L 3.1 L Chloride (98 - 107 mmol/L) 105 105 Carbon Dioxide (22 - 30 mmol/L) 29 28 Anion Gap (5 - 16) 5 5 BUN (9 - 20 mg/dL) 3 L 9 Creatinine (0.7 - 1.2 mg/dL) 1.0 2.0 H Estimated GFR (>60 ml/min) > 60 33 L BUN/Creatinine Ratio (7 - 25 %) 3.0 L 4.5 L Glucose (65 - 99 mg/dL) Pending Cancelled 65 Coagulation PT (9.4 - 12.5 SEC) > 103.0 *H INR (0.90 - 1.17) > 10.0 *H Hematology CBC w Diff MAN DIFF ORDERED WBC (4.8 - 10.8 /CUMM) 11.2 H RBC (4.70 - 6.10 /CUMM) 3.02 L Hgb (14.0 - 18.0 G/DL) 9.0 L Hct (42 - 52 %) 28.4 L MCV (80.0 - 94.0 FL) 93.9 MCH (27.0 - 31.0 PG) 29.8 RDW (11.5 - 14.5 %) 21.4 H Plt Count (130 - 400 /CUMM) 241 MPV (7.4 - 10.4 FL) 7.2 L Gran % (42.2 - 75.2 %) 83.9 H Lymphocytes % (20.5 - 51.1 %) 7.9 L Monocytes % (1.7 - 9.3 %) 5.9 Eosinophils % (0 - 5 %) 2.2 Basophils % (0.0 - 2.0 %) 0.1 Absolute Granulocytes (1.4 - 6.5 /CUMM) 9.4 H Segmented Neutrophils (42.2 - 75.2 %) 81 H Band Neutrophils (0.0 - 5.0 %) 7 H Absolute Lymphocytes (1.2 - 3.4 /CUMM) 0.9 L Lymphocytes (20.5 - 51.1 %) 3 L Monocytes (1.7 - 9.3 %) 6 Absolute Monocytes (0.10 - 0.60 /CUMM) 0.7 H Eosinophils (0 - 5.0 %) 3 Absolute Eosinophils (0.0 - 0.7 /CUMM) 0.2 Absolute Basophils (0.0 - 0.2 /CUMM) 0 Hypochromic-Microcytic 1+ Poikilocytosis 1+ Anisocytosis 2+ PUBS MCHC (33.0 - 37.0 G/DL) 31.7 L Toxicology Random Vancomycin (ug/ml) 20.8 A/P; 75-year-old male with very complicated past medical history who was admitted with severe sepsis as well as acute respiratory failure likely secondary to aspiration pneumonia. Currently getting treated with IV antibiotics as recommended by infectious disease. Hemodialysis per nephrology. Patient has coagulopathy with high INR. Will receive vitamin K today. Continue to hold Coumadin and monitor INR as well as H&H. H&H is currently stable. For hypoglycemia patient is on insulin per endocrinology. He will receive D50 and will monitor his blood sugar. He was started on Lomotil as well as Questran for the diarrhea.
[2016-09-28 09:00] LABS: ABSOLUTE BASOPHIL COUNT 0 /CUMM (0.0-0.2); ABSOLUTE EOSINOPHIL COUNT 0.2 /CUMM (0.0-0.7); ABSOLUTE GRANULOCYTE CT 9.4 /CUMM (1.4-6.5); ABSOLUTE LYMPH COUNT 0.9 /CUMM (1.2-3.4); ABSOLUTE MONOCYTE COUNT 0.7 /CUMM (0.10-0.60); BASOPHIL % 0.1 % (0.0-2.0); EOSINOPHIL % 2.2 % (0-5); GRANULOCYTE % 83.9 % (42.2-75.2); HEMATOCRIT 28.4 % (42-52); MEAN CORPUSCULAR HGB 29.8 PG (27.0-31.0); MEAN CORPUSCULAR HGB CONC 31.7 G/DL (33.0-37.0); MEAN CORPUSCULAR VOLUME 93.9 FL (80.0-94.0); MEAN PLATELET VOLUME 7.2 FL (7.4-10.4); PLATELET COUNT 241 /CUMM (130-400); RBC DISTRIBUTION WIDTH 21.4 % (11.5-14.5); RED BLOOD CELL CT 3.02 /CUMM (4.70-6.10); WHITE BLOOD CELL COUNT 11.2 /CUMM (4.8-10.8)
[2016-09-28 09:37] LABS: PT > 103.0 SEC (9.4-12.5)
--- NOTE | 2016-09-28 12:00 | NUR ---
LATE ENTRY: NURSING NOTE: PATIENT RTURNED FROM DIALYSIS @ 1135. BS 53 @ 1200. PATIENT IS ASYMTOMATIC. DRANK 240ML OF OJ. MASTER RIGGER KARLEE NOTIFIED. RECHECKED BS <50 @ 1230. ADMIN DEXTROSE 50% 25MG IV ONE TIME PER MD. ATE LUNCH @ 1300. RECHECK BS 267 @ 1330. MASTER RIGGER NOTIFIED. PATIENT IS A&O X 3 CONVERSATING WITH .
--- NOTE | 2016-09-28 12:42 | PN- Diabetes ---
Assessment/Plan Assessment: Mr. Marvin is a 76-year-old gentleman with past medical history of DVT on Coumadin therapy, hypertension, diabetes, CKD stage V currently on hemodialysis, peripheral vascular disease, left lower extremity necrotizing nonhealing ulcers, history of cellulitis with Pseudomonas and Crohn's disease status post bowel resection and on chronic prednisone therapy, multiple admissions over past 2-3 months, presented with fever, changes of mental status, hypotension and hypoglycemia. He probably has had aspiration pneumonia. He was admitted to ICU for sepsis. Clinically he has been better. Stress dose of steroid was discontinued. He was put back on his usual steroid-- prednisone 5 mg daily. With regards to DM, he is on Novolog coverage before meals and Novolog coverage before meals and Novolog coverage at bedtime. His FSGs were 246, 267, 347 and 269. However, his FSG was only 75 this morning. He missed breakfast because he was in HD. Now his FSG was only 53. He had apple sauce and g\he is going to have lunch. Plan: 1. continue the current Novolog coverage for meals; 2. decrease Bovolog coverage at bedtime-- detail see the insulin order; 3. monitor FSGs. 4. monitor his K. will follow. Inpatient Diabetes Orders Bedtime: Bolus Insulin: Novolog < 80 mg/dl: no coverage 80-100 mg/dl: no coverage 101-120 mg/dl: no coverage 121-150 mg/dl: no coverage 151-200 mg/dl: no coverage 201-250 mg/dl: no coverage 251-300 mg/dl: no coverage 301-350 mg/dl: 2 units 351-400 mg/dl: 2 units > 400 mg/dl: 3 units Subjective Subjective: He feels okay. But FSG was only 53 after he received the HD. Objective Last 24 Hrs of Vital Signs/I&O Vital Signs Date Time Temp Pulse Resp B/P Pulse O2 O2 Flow FiO2 Ox Delivery Rate 09/28 0656 97.7 78 20 135/70 94 09/28 0000 94 Nasal 4.0L Cannula 09/277 98.2 52 20 128/74 94 Nasal Cannula 09/27 1600 94 Nasal 4.0L Cannula 09/27 1451 97.8 47 20 132/72 94 Nasal 2.0L Cannula Intake & Output 09/28 1600 09/28 0800 09/28 0000 Intake Total 600 Output Total 175 2 Balance -175 598 Intake, Oral 600 Number 3 3 Bowel Movements Output, Stool 2 Output, Urine 175 Patient 148 lb Weight Findings Pertinent Lab/[place] Results: Laboratory Tests 09/28 0800 Chemistry Sodium (137 - 145 mmol/L) 138 Potassium (3.5 - 5.1 mmol/L) 3.1 L Chloride (98 - 107 mmol/L) 105 Carbon Dioxide (22 - 30 mmol/L) 28 Anion Gap (5 - 16) 5 BUN (9 - 20 mg/dL) 9 Creatinine (0.7 - 1.2 mg/dL) 2.0 H Estimated GFR (>60 ml/min) 33 L BUN/Creatinine Ratio (7 - 25 %) 4.5 L Coagulation PT (9.4 - 12.5 SEC) > 103.0 *H INR (0.90 - 1.17) > 10.0 *H Hematology CBC w Diff MAN DIFF ORDERED WBC (4.8 - 10.8 /CUMM) 11.2 H RBC (4.70 - 6.10 /CUMM) 3.02 L Hgb (14.0 - 18.0 G/DL) 9.0 L Hct (42 - 52 %) 28.4 L MCV (80.0 - 94.0 FL) 93.9 MCH (27.0 - 31.0 PG) 29.8 RDW (11.5 - 14.5 %) 21.4 H Plt Count (130 - 400 /CUMM) 241 MPV (7.4 - 10.4 FL) 7.2 L Gran % (42.2 - 75.2 %) 83.9 H Lymphocytes % (20.5 - 51.1 %) 7.9 L Monocytes % (1.7 - 9.3 %) 5.9 Eosinophils % (0 - 5 %) 2.2 Basophils % (0.0 - 2.0 %) 0.1 Absolute Granulocytes (1.4 - 6.5 /CUMM) 9.4 H Segmented Neutrophils (42.2 - 75.2 %) 81 H Band Neutrophils (0.0 - 5.0 %) 7 H Absolute Lymphocytes (1.2 - 3.4 /CUMM) 0.9 L Lymphocytes (20.5 - 51.1 %) 3 L Monocytes (1.7 - 9.3 %) 6 Absolute Monocytes (0.10 - 0.60 /CUMM) 0.7 H Eosinophils (0 - 5.0 %) 3 Absolute Eosinophils (0.0 - 0.7 /CUMM) 0.2 Absolute Basophils (0.0 - 0.2 /CUMM) 0 Hypochromic-Microcytic 1+ Poikilocytosis 1+ Anisocytosis 2+ PUBS MCHC (33.0 - 37.0 G/DL) 31.7 L Toxicology Random Vancomycin (ug/ml) 20.8
[2016-09-28 15:15] VITALS: BP 90/62
--- NOTE | 2016-09-28 17:52 | PN- Nephrology ---
Assessment/Plan Assessment: ESRD - Dialysis today. To cont on current schedule. Aspiration PNA - Clinically improving on abx; WBC down. Unfortunately failed barium swallow test. Hopefully this won't be a recurrent problem for him with the appropriate diet. Anemia - On Epogen which should be continued with dialysis. Hypokalemia - Likely in the setting of diarrhea and poor PO intake. Will not be able to make closer to 4.0 with dialysis. Will need to supplement. Suggestion: -Dialysis today -To continue on //Fri dialysis schedule -Cont Epogen with dialysis -Modification of diet and re-evaluation based on MBS -OK to supplement K for K<3.4 Please call [phone] with ?'s Subjective Subjective: Dialysis earlier today Pt feeling tired No new positive micro Objective Vital Signs and I&Os Vital Signs Date Time Temp Pulse Resp B/P Pulse O2 O2 Flow FiO2 Ox Delivery Rate 09/28 1515 98.5 113 18 90/62 97 Nasal 2.0L Cannula 09/28 0750 94 Nasal 4.0L Cannula 09/28 0656 97.7 78 20 135/70 94 09/28 0000 94 Nasal 4.0L Cannula 09/27 2206 98.2 52 20 128/74 94 Nasal Cannula Intake & Output 09/28 1600 09/28 0400 09/27 1600 09/27 0400 09/26 1600 09/26 0400 Intake Total 600 1780 1260 1000 890 Output Total 176 2 2 0 Balance -110 008 4952 1260 998 890 Intake, IV 819 825 6378 800 Intake, Oral 600 1080 960 90 Number 1 5 8 6 1 Bowel Movements Output, Stool 1 2 2 Output, Urine 175 0 Patient 141 lb 147 lb 144 lb Weight Physical Exam: Gen - tired appearing HEENT - supple CV - RRR Chest - clear anteriorly Abd - soft, nontender Ext - no edema; legs dressed Neuro - AOX3 Current Medications: Current Medications Sig/Kailash Start time Last Medication Dose Route Stop Time Status Admin Acetaminophen 650 MG .STK-MED ONE 09/27 2045 DC PO 09/27 2046 Acetaminophen 650 MG Q6P PRN 09/24 1400 AC 09/27 PO 2118 Atorvastatin Calcium 40 MG QPM 09/24 2199 AC 09/27 PO 2113 Calcium Carbonate 500 MG TID 09/24 2199 AC 09/28 PO 170 Ceftazidime 1,000 MG Q24H 09/24 1615 AC 09/28 IV 1703 Cholestyramine Resin 1 PAC BID 09/27 1000 AC 09/28 PO 1224 Cyanocobalamin 1,000 MCG DAILY 09/25 1000 AC 09/28 PO 1233 Dextrose 1 SYR ONE ONE 09/28 1315 CAN IV 09/28 1316 Dextrose 50 GM ONCE ONE 09/28 1315 DC 09/28 IV 09/28 1316 1321 Diphenoxylate HCl/ 2.5 MG ONCE ONE 09/28 0030 DC 09/28 Atropine PO 09/28 0031 0125 Diphenoxylate HCl/ 2.5 MG BID 09/26 1156 AC 09/28 Atropine PO 1224 Epoetin Ludwig 2,000 UNIT TuThSa PRN 09/28 0730 AC IV Epoetin Ludwig 3,000 UNIT TuThSa PRN 09/28 0730 AC IV Ferrous Sulfate 325 MG QPM 09/24 2200 AC 09/27 PO 2114 Guaifenesin 600 MG BID 09/24 2200 AC 09/28 PO 1223 Insulin Aspart 0 AT BEDTIME 09/25 2200 AC 09/27 SC 2221 Insulin Aspart 0 TIDAC 09/25 1700 AC 09/28 SC 1724 Lactobacillus 1 CAP WITH MEALS 09/27 0800 AC 09/28 Acidophilus PO 1705 Multivitamins 1 TAB DAILY 09/25 1000 AC 09/28 PO 1222 Omeprazole 20 MG DAILY AC 09/25 0700 AC 09/28 PO 0458 Oxycodone/ 1 TAB Q6P PRN 09/25 1515 AC 09/27 Acetaminophen PO 1234 Oxycodone/ 2 TAB Q6P PRN 09/25 1515 AC 09/28 Acetaminophen PO 1303 Phytonadione 10 MG ONCE ONE 09/28 1100 DC 09/28 PO 09/28 1101 1234 Prednisone 5 MG DAILY 09/27 1000 AC 09/28 PO 1222 Sevelamer Carbonate 800 MG WM 09/24 1700 AC 09/28 PO 1705 Sodium Chloride 1 SPRAY 4 TIMES/DAY PRN 09/24 1445 AC CARLITOS Vancomycin HCl 250 MG ONCE ONE 09/28 1700 DC Dextrose/Water 100 ML IV 09/28 1729 Vancomycin HCl See Dose TuThSa PRN 09/28 0900 AC Insts (1) IV Dose Instructions: (1)Vancomycin HCl: dose based on random Vanco level Results Pertinent Lab Results: Laboratory Tests 09/28 09/28 09/28 1318 1311 0800 Chemistry Sodium (137 - 145 mmol/L) 139 138 Potassium (3.5 - 5.1 mmol/L) 3.1 L 3.1 L Chloride (98 - 107 mmol/L) 105 105 Carbon Dioxide (22 - 30 mmol/L) 29 28 Anion Gap (5 - 16) 5 5 BUN (9 - 20 mg/dL) 3 L 9 Creatinine (0.7 - 1.2 mg/dL) 1.0 2.0 H Estimated GFR (>60 ml/min) > 60 33 L BUN/Creatinine Ratio (7 - 25 %) 3.0 L 4.5 L Glucose (65 - 99 mg/dL) 86 Cancelled 65 Coagulation PT (9.4 - 12.5 SEC) > 103.0 *H INR (0.90 - 1.17) > 10.0 *H Hematology CBC w Diff MAN DIFF ORDERED WBC (4.8 - 10.8 /CUMM) 11.2 H RBC (4.70 - 6.10 /CUMM) 3.02 L Hgb (14.0 - 18.0 G/DL) 9.0 L Hct (42 - 52 %) 28.4 L MCV (80.0 - 94.0 FL) 93.9 MCH (27.0 - 31.0 PG) 29.8 RDW (11.5 - 14.5 %) 21.4 H Plt Count (130 - 400 /CUMM) 241 MPV (7.4 - 10.4 FL) 7.2 L Gran % (42.2 - 75.2 %) 83.9 H Lymphocytes % (20.5 - 51.1 %) 7.9 L Monocytes % (1.7 - 9.3 %) 5.9 Eosinophils % (0 - 5 %) 2.2 Basophils % (0.0 - 2.0 %) 0.1 Absolute Granulocytes (1.4 - 6.5 /CUMM) 9.4 H Segmented Neutrophils (42.2 - 75.2 %) 81 H Band Neutrophils (0.0 - 5.0 %) 7 H Absolute Lymphocytes (1.2 - 3.4 /CUMM) 0.9 L Lymphocytes (20.5 - 51.1 %) 3 L Monocytes (1.7 - 9.3 %) 6 Absolute Monocytes (0.10 - 0.60 /CUMM) 0.7 H Eosinophils (0 - 5.0 %) 3 Absolute Eosinophils (0.0 - 0.7 /CUMM) 0.2 Absolute Basophils (0.0 - 0.2 /CUMM) 0 Hypochromic-Microcytic 1+ Poikilocytosis 1+ Anisocytosis 2+ PUBS MCHC (33.0 - 37.0 G/DL) 31.7 L Toxicology Random Vancomycin (ug/ml) 20.8 03/03 03/03 0647 0603 Chemistry Sodium (137 - 145 mmol/L) 138 Potassium (3.5 - 5.1 mmol/L) 3.1 L Chloride (98 - 107 mmol/L) 106 Carbon Dioxide (22 - 30 mmol/L) 28 Anion Gap (5 - 16) 4 L BUN (9 - 20 mg/dL) 4 L Creatinine (0.7 - 1.2 mg/dL) 1.3 H Estimated GFR (>60 ml/min) 54 L BUN/Creatinine Ratio (7 - 25 %) 3.1 L Coagulation PT (9.4 - 12.5 SEC) 70.4 *H INR (0.90 - 1.17) 6.83 *H Hematology CBC w Diff NO MAN DIFF REQ WBC (4.8 - 10.8 /CUMM) 8.6 RBC (4.70 - 6.10 /CUMM) 2.58 L Hgb (14.0 - 18.0 G/DL) 7.7 L Hct (42 - 52 %) 23.9 L MCV (80.0 - 94.0 FL) 92.5 MCH (27.0 - 31.0 PG) 29.8 RDW (11.5 - 14.5 %) 21.1 H Plt Count (130 - 400 /CUMM) 235 MPV (7.4 - 10.4 FL) 8.3 Gran % (42.2 - 75.2 %) 92.4 H Lymphocytes % (20.5 - 51.1 %) 3.7 L Monocytes % (1.7 - 9.3 %) 3.9 Eosinophils % (0 - 5 %) 0 Basophils % (0.0 - 2.0 %) 0 L Absolute Granulocytes (1.4 - 6.5 /CUMM) 7.9 H Absolute Lymphocytes (1.2 - 3.4 /CUMM) 0.3 L Absolute Monocytes (0.10 - 0.60 /CUMM) 0.3 Absolute Eosinophils (0.0 - 0.7 /CUMM) 0 Absolute Basophils (0.0 - 0.2 /CUMM) 0 PUBS MCHC (33.0 - 37.0 G/DL) 32.3 L Toxicology Random Vancomycin (ug/ml) 10.9 Cancelled 09/26 09/26 1600 1338 Hematology CBC w Diff NO MAN DIFF REQ WBC (4.8 - 10.8 /CUMM) 15.7 H RBC (4.70 - 6.10 /CUMM) 2.98 L Hgb (14.0 - 18.0 G/DL) 8.7 L Hct (42 - 52 %) 27.6 L MCV (80.0 - 94.0 FL) 92.8 MCH (27.0 - 31.0 PG) 29.3 RDW (11.5 - 14.5 %) 22.0 H Plt Count (130 - 400 /CUMM) 290 MPV (7.4 - 10.4 FL) 8.3 Gran % (42.2 - 75.2 %) 94.4 H Lymphocytes % (20.5 - 51.1 %) 2.5 L Monocytes % (1.7 - 9.3 %) 3.0 Eosinophils % (0 - 5 %) 0 Basophils % (0.0 - 2.0 %) 0.1 Absolute Granulocytes (1.4 - 6.5 /CUMM) 14.8 H Absolute Lymphocytes (1.2 - 3.4 /CUMM) 0.4 L Absolute Monocytes (0.10 - 0.60 /CUMM) 0.5 Absolute Eosinophils (0.0 - 0.7 /CUMM) 0 Absolute Basophils (0.0 - 0.2 /CUMM) 0 PUBS MCHC (33.0 - 37.0 G/DL) 31.5 L Serology Hep Bs Antigen (NONREACTIVE) NONREACTIVE Hep Bs Antibody (NONREACTIVE) NONREACTIVE 09/26 2736 Chemistry Sodium (137 - 145 mmol/L) 138 Potassium (3.5 - 5.1 mmol/L) 3.5 Chloride (98 - 107 mmol/L) 106 Carbon Dioxide (22 - 30 mmol/L) 26 Anion Gap (5 - 16) 5 BUN (9 - 20 mg/dL) 11 Creatinine (0.7 - 1.2 mg/dL) 2.1 H Estimated GFR (>60 ml/min) 31 L BUN/Creatinine Ratio (7 - 25 %) 5.2 L Calcium (8.4 - 10.2 mg/dL) 7.2 L Phosphorus (2.5 - 4.5 mg/dL) 2.8 Magnesium (1.6 - 2.3 mg/dL) 1.5 L Coagulation PT (9.4 - 12.5 SEC) 80.0 *H INR (0.90 - 1.17) 7.78 *H Hematology CBC w Diff NO MAN DIFF REQ WBC (4.8 - 10.8 /CUMM) 13.8 H RBC (4.70 - 6.10 /CUMM) 2.69 L Hgb (14.0 - 18.0 G/DL) 7.6 L Hct (42 - 52 %) 24.9 L MCV (80.0 - 94.0 FL) 92.3 MCH (27.0 - 31.0 PG) 28.2 RDW (11.5 - 14.5 %) 20.7 H Plt Count (130 - 400 /CUMM) 241 MPV (7.4 - 10.4 FL) 7.8 Gran % (42.2 - 75.2 %) 94.7 H Lymphocytes % (20.5 - 51.1 %) 2.5 L Monocytes % (1.7 - 9.3 %) 2.5 Eosinophils % (0 - 5 %) 0 Basophils % (0.0 - 2.0 %) 0.3 Absolute Granulocytes (1.4 - 6.5 /CUMM) 13.0 H Absolute Lymphocytes (1.2 - 3.4 /CUMM) 0.3 L Absolute Monocytes (0.10 - 0.60 /CUMM) 0.3 Absolute Eosinophils (0.0 - 0.7 /CUMM) 0 Absolute Basophils (0.0 - 0.2 /CUMM) 0 PUBS MCHC (33.0 - 37.0 G/DL) 30.5 L
[2016-09-28 22:45] VITALS: BP 128/78
[2016-09-29 05:00] VITALS: BP 142/80
[2016-09-29 08:13] LABS: ABSOLUTE BASOPHIL COUNT 0 /CUMM (0.0-0.2); ABSOLUTE EOSINOPHIL COUNT 0.2 /CUMM (0.0-0.7); ABSOLUTE GRANULOCYTE CT 8.4 /CUMM (1.4-6.5); BASOPHIL % 0.3 % (0.0-2.0); EOSINOPHIL % 1.5 % (0-5); GRANULOCYTE % 79.2 % (42.2-75.2); HEMATOCRIT 31.4 % (42-52); MEAN CORPUSCULAR HGB 29.3 PG (27.0-31.0); MEAN CORPUSCULAR HGB CONC 31.4 G/DL (33.0-37.0); MEAN CORPUSCULAR VOLUME 93.4 FL (80.0-94.0); MEAN PLATELET VOLUME 7.8 FL (7.4-10.4); PLATELET COUNT 193 /CUMM (130-400); RBC DISTRIBUTION WIDTH 21.4 % (11.5-14.5); RED BLOOD CELL CT 3.36 /CUMM (4.70-6.10); WHITE BLOOD CELL COUNT 10.6 /CUMM (4.8-10.8)
--- NOTE | 2016-09-29 10:34 | PN- Housestaff ---
GLADYS HEATH,AVERY 09/29/16 1026: Subjective Follow-up For: esrd supratherapeutic INR Subjective: Saw pt this AM. He was asleep but rousable. Offered no complaint. No acute overnight events. On HD //fri schedule. Review of Systems Constitutional: Denies: chills, diaphoresis, malaise. EENTM: Denies: blurred vision. Cardiovascular: Denies: chest pain. Respiratory: Denies: short of breath. Gastrointestinal: Denies: abdominal pain. Genitourinary: Reports: no symptoms. Musculoskeletal: Reports: no symptoms. Skin: Reports: no symptoms. Objective Last 24 Hrs of Vital Signs/I&O Vital Signs Date Time Temp Pulse Resp B/P Pulse O2 O2 Flow FiO2 Ox Delivery Rate 09/29 08 94 Nasal 2.0L Cannula 09/29 0500 97.8 84 18 142/80 94 Nasal 2.0L Cannula 09/29 0000 Nasal 2.0L Cannula 09/28 2245 98.2 82 20 128/78 95 Nasal 3.0L Cannula 09/28 1515 98.5 113 18 90/62 97 Nasal 2.0L Cannula Intake & Output 09/29 1600 09/29 0800 03/ 0000 Intake Total 240 200 Output Total 176 152 Balance 64 48 Intake, Oral 240 200 Number 5 Bowel Movements Output, Stool 1 2 Output, Urine 175 150 Patient 67.132 kg Weight Physical Exam General Appearance: Alert, No Acute Distress Skin: No Breakdown, No Significant Lesion HEENT: Atraumatic, PERRLA, EOMI Neck: Supple Cardiovascular: Regular Rate, No Murmurs Lungs: Normal Air Movement Abdomen: Soft, No Tenderness Current Medications: Current Medications Sig/Kailash Start time Last Medication Dose Route Stop Time Status Admin Acetaminophen 650 MG .STK-MED ONE 09/28 2213 DC PO 09/28 221 Acetaminophen 650 MG Q6P PRN 09/24 1400 AC 09/28 PO 221 Atorvastatin Calcium 40 MG QPM 09/24 220 AC 09/28 PO 220 Calcium Carbonate 500 MG TID 09/24 220 AC 09/29 PO 0905 Ceftazidime 1,000 MG Q24H 09/24 1615 AC 09/28 IV 1703 Cholestyramine Resin 1 PAC BID 09/27 1000 AC 09/29 PO 0906 Cyanocobalamin 1,000 MCG DAILY 09/25 1000 AC 09/29 PO 0908 Dextrose 1 SYR ONE ONE 09/28 1315 CAN IV 09/28 1316 Dextrose 50 GM ONCE ONE 09/28 1315 DC 09/28 IV 09/28 1316 1321 Diphenoxylate HCl/ 2.5 MG BID 09/26 1156 AC 09/29 Atropine PO 0905 Epoetin Ludwig 2,000 UNIT TuThSa PRN 09/28 0730 AC IV Epoetin Ludwig 3,000 UNIT TuThSa PRN 09/28 0730 AC IV Ferrous Sulfate 325 MG QPM 09/24 220 AC 09/28 PO 2202 Guaifenesin 600 MG BID 09/24 220 AC 09/29 PO 0904 Insulin Aspart 0 AT BEDTIME 09/25 220 AC 09/28 SC 2217 Insulin Aspart 0 TIDAC 09/25 1700 AC 09/28 SC 1724 Lactobacillus 1 CAP WITH MEALS 09/27 0800 AC 09/29 Acidophilus PO 0825 Multivitamins 1 TAB DAILY 09/25 1000 AC 09/29 PO 0905 Omeprazole 20 MG DAILY AC 09/25 0700 AC 09/29 PO 0731 Oxycodone/ 1 TAB Q6P PRN 09/25 1515 AC 09/27 Acetaminophen PO 1234 Oxycodone/ 2 TAB Q6P PRN 09/25 1515 AC 09/29 Acetaminophen PO 0732 Phytonadione 10 MG ONCE ONE 09/28 1100 DC 09/28 PO 09/28 1101 1234 Potassium Chloride 40 MEQ ONCE ONE 09/28 1945 DC 09/28 PO 09/28 1946 2206 Prednisone 5 MG DAILY 09/27 1000 AC 09/29 PO 0905 Sevelamer Carbonate 800 MG WM 09/24 1700 AC 09/29 PO 0825 Sodium Chloride 1 SPRAY 4 TIMES/DAY PRN 09/24 1445 AC CARLITOS Vancomycin HCl 250 MG ONCE ONE 09/28 1700 DC 09/28 Dextrose/Water 100 ML IV 09/28 1729 1838 Vancomycin HCl See Dose TuThSa PRN 09/28 0900 AC Insts (1) IV Dose Instructions: (1)Vancomycin HCl: dose based on random Vanco level Last 24 Hrs of Lab/Avtar Results Last 24 Hrs of Labs/Mics: Laboratory Tests 09/29/16 0500: Anion Gap 2 L, Estimated GFR 46 L, BUN/Creatinine Ratio 4.0 L, PT 21.0 H, INR 2.01 H, CBC w Diff NO MAN DIFF REQ, RBC 3.36 L, MCV 93.4, MCH 29.3, RDW 21.4 H, MPV 7.8, Gran % 79.2 H, Lymphocytes % 9.9 L, Monocytes % 9.1, Eosinophils % 1.5, Basophils % 0.3, Absolute Granulocytes 8.4 H, Absolute Lymphocytes 1.0 L, Absolute Monocytes 1.0 H, Absolute Eosinophils 0.2, Absolute Basophils 0, PUBS MCHC 31.4 L 09/28/16 1318: Anion Gap 5, Estimated GFR > 60, BUN/Creatinine Ratio 3.0 L, Glucose 86 09/28/16 1311: Glucose Cancelled Assessment/Plan Assessment: Sepsis 2/2 suspected aspiration pneumonia * ID following. Appreciate their recs. * Swallow eval done, Started ground diet and honey thick liquids. * Follow UCx and BCx. * Attempt to collect sputum culture. * Patient remained to be afebrile with stable vital signs * Continue ceftazidime 1 g IV Q8H per ID * Vanc random level was checked yesterday adjusted dose was given after dialysis per pharmacy recommendation * Flagyl discontinued. Acute hypoxemic respiratory failure - resolved * Provide supplemental oxygen to keep SpO2 > 92%. * Continue Mucinex 600 mg PO BID for cough. Hypotension - resolved Blood pressures have improved with IV fluids. Remains hemodynamically stable. * Monitor hemodynamics. * Monitor strict I/Os. * DC'd fluids Antiphospholipid syndrome INR has further increased to 2.01 today. 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 * 10 mg of vitamin K oral was given * Continue to hold warfarin. * Will resume warfarin today. T2DM Came with hypoglycemia. Blood sugar this morning was 50 refractory to glucose intake * 50 mg of dextrose push was given * Follow-up serum glucose level * Adjustment to NovoLog coverage at bedtime was done * Endocrinology following. Appreciate their recs. * Accu-checks and Novolog TIDAC sliding scale. * Continue to hold prior to admission Levemir. ESRD Dialysis performed yesterday without fluid removal. On HD //Sat. * Nephrology following. Appreciate their recs. * Continue HD on //Sat schedule. * Continue Epogen IV with dialysis. * Watch hypokalemia--> Pt has K 3.9 Lower extremity and coccyx wounds There is an unstageable pressure injury on the coccyx, 3x1.5 cm with slough covering the surface. there is a full thickness left inner thigh wound (6x3 cm) as well as a left post leg full thickness wound (30x12 cm). Also there is a left foot dry stable eschar, as well as a left heel stable eschar, also a right posterior leg full thickness wound (3x5 cm). * wound care consult * Recs: cleanse leg and thigh wounds with NS FB hydrogel xeroform and DPD daily. leave heel wounds and foot wounds open to air after daily bedtime swab * cleanse coccyx with NS FB hydrocolloid dressing Q3 days and PRN Renal Dialysis Diet - Ground Diet and Honey Thick Liquids DVT/Prophylaxis: pharmacological Code Status: Do Not Resucitate/Intubat Problem List: 1. Aspiration pneumonia 2. ESRD (end stage renal disease) on dialysis 3. Altered mental status Pain Ratin Pain Location: none Pain Goal: Remain pain free Pain Plan: current reg Tomorrow's Labs & Rationales: cbc bep inr mag aura BOWEN MD,ALY 09/29/16 1331: Attending MD Review Statement Attending Statement Attending MD Statement: examined this patient, discuss w/resident/PA/CONSERVATION TECHNICIAN, agreed w/resident/PA/CONSERVATION TECHNICIAN, discussed with family, reviewed EMR data (avail), discussed with nursing, reviewed images, amended to note Attending Assessment/Plan: Patient seen and examined, overall feeling better. No further episodes of the hypoglycemia. INR has also improved. Patient will be getting low-dose of Coumadin today. Blood sugars are stable and has been followed by endocrinology. Continue antibiotics per infectious disease recommendations. Diarrhea is also improving. Patient continues to improve then likely can be discharged to rehabilitation soon hopefully within the next day or 2. For DVT prophylaxis patient's INR is therapeutic. Discussed with patient's at bedside.
--- NOTE | 2016-09-29 11:30 | PN- Diabetes ---
Assessment/Plan Assessment: Mr. Marvin is a 76-year-old gentleman with past medical history of DVT on Coumadin therapy, hypertension, diabetes, CKD stage V currently on hemodialysis, peripheral vascular disease, left lower extremity necrotizing nonhealing ulcers, history of cellulitis with Pseudomonas and Crohn's disease status post bowel resection and on chronic prednisone therapy, multiple admissions over past 2-3 months, presented with fever, changes of mental status, hypotension and hypoglycemia. He probably has had aspiration pneumonia. He was admitted to ICU for sepsis. Clinically he has been better. Stress dose of steroid was discontinued. He was put back on his usual steroid-- prednisone 5 mg daily. With regards to DM, he is on Novolog coverage before meals and Novolog coverage at bedtime. The bedtime coverage was adjusted-- patient will receive small dose of insulin only when FSG is > 300. His FSG was 199, 267, 315 and 71. Plan: continue the current Novolog coverage; monitor FSGs; will follow. Subjective Subjective: He appears better. Objective Last 24 Hrs of Vital Signs/I&O Vital Signs Date Time Temp Pulse Resp B/P Pulse O2 O2 Flow FiO2 Ox Delivery Rate 09/29 0800 94 Nasal 2.0L Cannula 09/29 0500 97.8 84 18 142/80 94 Nasal 2.0L Cannula 09/29 0000 Nasal 2.0L Cannula 09/28 2245 98.2 82 20 128/78 95 Nasal 3.0L Cannula / 1515 98.5 113 18 90/62 97 Nasal 2.0L Cannula Intake & Output 09/29 1600 09/29 0800 09/29 0000 Intake Total 240 200 Output Total 176 152 Balance 64 48 Intake, Oral 240 200 Number 5 Bowel Movements Output, Stool 1 2 Output, Urine 175 150 Patient 148 lb Weight Findings Pertinent Lab/Avtar Results: Laboratory Tests 09/29/ 0500 1318 1311 Chemistry Sodium (137 - 145 mmol/L) 138 139 Potassium (3.5 - 5.1 mmol/L) 3.9 3.1 L Chloride (98 - 107 mmol/L) 108 H 105 Carbon Dioxide (22 - 30 mmol/L) 28 29 Anion Gap (5 - 16) 2 L 5 BUN (9 - 20 mg/dL) 6 L 3 L Creatinine (0.7 - 1.2 mg/dL) 1.5 H 1.0 Estimated GFR (>60 ml/min) 46 L > 60 BUN/Creatinine Ratio (7 - 25 %) 4.0 L 3.0 L Glucose (65 - 99 mg/dL) 86 Cancelled Coagulation PT (9.4 - 12.5 SEC) 21.0 H INR (0.90 - 1.17) 2.01 H Hematology CBC w Diff NO MAN DIFF REQ WBC (4.8 - 10.8 /CUMM) 10.6 RBC (4.70 - 6.10 /CUMM) 3.36 L Hgb (14.0 - 18.0 G/DL) 9.8 L Hct (42 - 52 %) 31.4 L MCV (80.0 - 94.0 FL) 93.4 MCH (27.0 - 31.0 PG) 29.3 RDW (11.5 - 14.5 %) 21.4 H Plt Count (130 - 400 /CUMM) 193 MPV (7.4 - 10.4 FL) 7.8 Gran % (42.2 - 75.2 %) 79.2 H Lymphocytes % (20.5 - 51.1 %) 9.9 L Monocytes % (1.7 - 9.3 %) 9.1 Eosinophils % (0 - 5 %) 1.5 Basophils % (0.0 - 2.0 %) 0.3 Absolute Granulocytes (1.4 - 6.5 /CUMM) 8.4 H Absolute Lymphocytes (1.2 - 3.4 /CUMM) 1.0 L Absolute Monocytes (0.10 - 0.60 /CUMM) 1.0 H Absolute Eosinophils (0.0 - 0.7 /CUMM) 0.2 Absolute Basophils (0.0 - 0.2 /CUMM) 0 PUBS MCHC (33.0 - 37.0 G/DL) 31.4 L
[2016-09-29 14:33] VITALS: BP 102/64
[2016-09-29 23:42] VITALS: BP 118/74
[2016-09-30 06:06] VITALS: BP 129/99
--- NOTE | 2016-09-30 07:00 | Discharge Summary ---
Visit Information Visit Dates Admission Date: 09/24/16 Discharge Date: 10/03/2016 Hospital Course Course Attending Physician: BENITA SANCHEZ MD Primary Care Physician: HOSSEIN HEATH,TAD Calvo Consulting Request: Consulting Specialty: Infectious Disease Hospital Course: 75 y/o M with PMHx of IDDM, ESRD on HD w/ a failed av fistula, antiphospholipid syndrome w/ a chronic DVT in the LE, PVD with chronic nonhealing bilateral lower extremity ulcers s/p multiple debridements with resultant chronic pain, atrial fibrillation on warfarin and Crohns disease currently managed on steroids, with multiple hospitalizations here at [place] over the three months, who is BIBA from SNF with hypoglycemia, altered mental status and hypotension. During his most recent hospitalizations he has been treated for pneumonia with an extensive antibiotic regimen, sepsis w/ hypotension, hypoglycemia and multiple episodes of diarrhea with negative stool cdiff. On his most recent admission he presented 1 day after discharge with AMS, found to be hypoglycemic and hypotensive requiring placement of a Left IJ TLC. VS on admission: BP 67/48, HR 128, RR 20, SpO2 91% on 2L that dropped to 81% requring venti mask, T 100.0, Tmax 100.8 PE on admission: Lethargic but Arousable, Regular Rate, Normal S1, Normal S2, Lungs CTABL. Abdomen: Soft, Diffusely Tender to Palpation, No Guarding or Rebound, Positive Bowel Sounds Labs on admission: WBC 20.2, H/H 11.1/34.8, Na 134, HCO 21, BUN/Cr 24/4.0 INR: 6.41 EKG Results: Sinus tachycardia, HR 123, RBBB, Left axis deviation, No significant change since previous tracing, HR 475 CXR Results Interval placement of a left-sided central line is noted with its tip seen at the cavoatrial junction without any evidence of left-sided pneumothorax or any other significant change since 09/19/2016. The patient was intially admitted for management of the following problems: 1. Sepsis secondary to aspiration pneumonia * Positive severe sepsis criteria: fever (Tmax 100.8), tachycardia (HR 128), tachypnea (RR 22) and leukocytosis (WBC 20.2) with bandemia (24), hypotension. Initially the source of infection was not 100% clear andthus patient was started on vancomycin, ceftazidime and Flagyl along with stress dose steroids due to concern for adrenal insufficiency in the setting of prolonged steroid therapy * Patient did have a modified barium swallow that he failed. Dietary recommendations moving forward on mechanical soft, honey thick liquids (renal dialysis diet) * Over the hospital stay aspiration pneumonia was the most clear etiology of his sepsis presentation. Antibiotic adjustments made appropriately for which he completed a total of 8 days ceftaz 1gr daily, 1 dose ceftriaxone, 3 doses IV metronidazole 500 Q8, and vancomycin dosed per dialysis protocol 2. Hypoxic respiratory failure * Progressive improvement over the hospital course. Incentive spirometry respiratory support. Mucinex 600 mg PO BID 3. Recurrent diarrhea * C. difficile 3 negative. He was noted to have multiple bowel movements on a regular basis for which we reintroduced the motility 1-2 tabs prior to each meal along with cholestyramine twice a day with noticeable improvement in symptoms 4. IDDM with episodes of hypoglycemia * Patient was noted to have multiple episodes of hypoglycemia during the hospital stay. This could've been partly attributed to his intermittent episodes of diarrhea and malabsorption. Initially he did receive 3 doses of Solu-Cortef stress dose and titrated down to his baseline of prednisone 5 mg daily. We were able to control his sugars through most of the hospital course with daily imput and recommendations provided by Dr. tang (endocrinology) 5. Supratherapeutic INR * INR fluctuated between 2.00 and > 10.0 throughout the hospital course requiring a one-time dose of vitamin K 10 mg PO. Partly could be attributed to significant malabsorption in the setting of chronic diarrhea. With daily adjustments of Coumadin we were able to successfully maintain his INR at a therapeutic level 6. Left upper extremity edema * In the setting of left IJ triple-lumen catheter placement, the concern was for potential DVT with his history of antiphospholipid syndrome and Crohn's disease that can potentiate clot formation. Despite a therapeutic/supratherapeutic INR with did obtain a ultrasound of the upper extremity * Venous Doppler (10/01/2016): Persistent echogenic filling defects within the left internal jugular vein, most consistent with known chronic thrombus. Evaluation of the left subclavian vein was limited secondary to extensive overlying bandages. The remainder of the deep veins of the left upper extremity are grossly unremarkable. * Supportive therapy with arm elevation 7. Multiple nonhealing ulcers (dorsum of left hand, bilateral lower extremities ) * Patient was seen on a daily basis by the senior talent acquisition specialist * Left hand ulceration: Arm elevation, warm compresses * Unstageable pressure injury on the coccyx, 3x1.5 cm with slough covering the surface. there is a full thickness left inner thigh wound (6x3 cm) as well as a left post leg full thickness wound (30x12 cm). Also there is a left foot dry stable eschar, as well as a left heel stable eschar, also a right posterior leg full thickness wound (3x5 cm) * RECOMMENDATIONS BELOW * 1. cleanse leg and thigh wounds with NS FB hydrogel xeroform and DPD daily. leave heel wounds and foot wounds open to air after daily bedtime swab 2. cleanse coccyx with NS FB hydrocolloid dressing Q3 days and PRN 8. Malnutrition * Unfortunately due to his multiple comorbidities and progressive decline in health the patient has been noted to be malnourished. Meal supplementation has been maintained with ensure. Pre-albumin was noted to be low at 10.3. We'll continue Lomotil, cholestyramine and nutritional supplementation as tolerated 9. ESRD on HD (Friday//Friday): * Patient was maintained on his regular dialysis schedule * Epogen * Potassium supplementation with 3K dialysis bath. Plan to decrease to decrease to 2K based on follow up potassium levels 10. Antiphospholipid syndrome * Continued on Coumadin dosed per INR 2-3 11. Crohn's disease * Continued maintenance prednisone 5 mg daily Allergies: Coded Allergies: Sulfa (Sulfonamide Antibiotics) (Mild, HIVES 06/15/16) Disposition Summary Disposition Principal Diagnosis: Sepsis with hypotension Additional Diagnosis: Hypoxic respiratory failure Hypoglycemia Recurrent diarrhea ESRD on HD Multiple chronic non healing ulcers Left upper extremity swelling Malnutrition Antiphospholipid syndrome Crohn's disease Discharge Disposition: SNF Discharge Instructions General Discharge Information Code Status: Do Not Resucitate/Intubat Patient's Diet: Renal dialysis diet Patient's Activity: As tolerated Follow-Up Instructions/Appts: Please follow up with your PCP within 1 week after discharge Medications at Discharge Discharge Medications: Stop taking the following medications: Nephro-Vitamins (Nephro-Arthur Tablet) 0.8 MG TABLET ORAL DAILY Days = 28 Insulin Aspart (Novolog) 100 UNIT/ML VIAL Inject into fatty tissue 3 TIMES DAILY BEFORE MEALS Qty = 60 Insulin Detemir (Levemir) 100 UNIT/ML VIAL Inject into fatty tissue DAILY Qty = 30 Continue taking these medications: Cyanocobalamin (Vitamin B-12) (Vitamin B-12) 500 MCG TABLET 2 Tablet ORAL DAILY Comments: Last Taken: 10/03/16 Time: 1100 Ferrous Sulfate (Ferrous Sulfate) 325 MG (65 MG IRON) TABLET 1 Tablet ORAL Every night Comments: Last Taken: 10/02/16 Time: 2115 Sevelamer Carbonate (Renvela) 800 MG TABLET 1 Tablet ORAL TIDWM Instructions: RESTART WHEN PHOS LEVEL >3.5 Comments: Last Taken: 10/03/16 Time: 1130 Calcium Carbonate/Vitamin D3 (Os-Vishal 500+D3 Caplet) 500 MG-600 TABLET 1 Tablet ORAL THREE TIMES DAILY Comments: Last Taken:NOT GIVEN THIS ADMISSION Time: Oxycodone HCl/Acetaminophen (Percocet 5-325 MG Tablet) 5 MG-325 MG TABLET 2 Tablet ORAL EVERY 8 HOURS NEEDED as needed for PAIN SCALE 4-6 (MODERATE ) Qty = 15 Comments: Last Taken: 10/03/16 Time: 1220 B Complex & C No.20/Folic Acid (Nephrocaps Softgel) 1 MG CAPSULE 1 Capsule ORAL DAILY Qty = 30 Comments: Last Taken:NOT GIVEN THIS ADMISSION Time: Sodium Chloride (Saline Nasal Allen) 0.65 % SPRAY 1 Allen Both sides of nose 4 TIMES A DAY as needed for dRY NOSE Qty = 60 Comments: NOT GIVEN IN HOSPITAL Omeprazole (Omeprazole) 20 MG CAPSULE.DR 1 Capsule ORAL DAILY Comments: Last Taken: 10/03/16 Time: 0600 Atorvastatin Calcium (Atorvastatin Calcium) 40 MG TABLET 1 Tablet ORAL Every night Comments: Last Taken: 10/02/16 Time: 2115 Aspirin (Ecotrin*) 81 MG TABLET.DR 1 Tablet ORAL Every night Instructions: Reason to Stop at ADM: high INR, risk for bleeding Comments: NOT GIVEN Warfarin Sodium (Coumadin) 1 MG TABLET 1 Tablet ORAL EVERY 48 HOURS (Every 2 days) Instructions: Reason to Stop at ADM:supratherapeutic INR. Please monitor his INR regularly in the setting of multiple fluctations Carvedilol (Coreg) 3.125 MG TABLET 6.25 Milligram ORAL TWICE DAILY Qty = 30 Instructions: Reason to Stop at ADM: hypotensive This prescription has been renewed Guaifenesin (Mucinex) 600 MG TAB.ER.12H 1 Tablet ORAL TWICE DAILY Qty = 20 Comments: This prescription has been renewed Start taking the following new medications: Cholestyramine/Aspartame (Cholestyramine Light Packet) 4 GRAM POWD.PACK 1 Packet ORAL TWICE DAILY Qty = 60 No Refills Diphenoxylate HCl/Atropine (Diphenoxylate-Atrop 2.5-0.025) 2.5 MG-0.025 MG TABLET 1-2 Tablet ORAL BEFORE MEALS Qty = 90 No Refills Instructions: Give 1-2 tabs 30 minutes before each meal Insulin Aspart (Novolog) 100 UNIT/ML VIAL 0 Units Inject into fatty tissue 3 TIMES DAILY BEFORE MEALS Qty = 30 No Refills Instructions: BEFORE MEALS Blood Insulin Sugar Units <80 Intiate hypoglycemia 80-150 2 151-200 3 201-250 4 251-300 5 301-350 6 351-400 7 >400 8 and Call Doctor AT BEDTIME Blood Insulin Sugar Units <80 Intiate hypoglycemia 81-150 0 151-200 0 201-250 0 251-300 0 301-350 2 351-400 2 >400 3 and Call Doctor Ofloxacin (Ofloxacin) 0.3 % DROPS 1 Drop OTIC EVERY SIX HOURS Qty = 5 No Refills Dextran 70/Hypromellose (Artificial Tears Eye Drops) 15 ML DROPS 1 Drop In the eye Every 4 hours as needed for dry eye Qty = 1 No Refills Instructions: please apply the artificial tears 15 min after (not earlier than 15min) from ofloxacin drop. The following medications have been changed: Old: Prednisone (Prednisone) 5 MG TABLET 1 Tablet ORAL DAILY Qty = 30 New: Prednisone (Prednisone) 5 MG TABLET 1 Tablet ORAL DAILY Qty = 30 Copies To: DONATO HEATH,IZAIAH Tucker; SAMM HEATH,STEW Jarquin; BROOKE HEATH,DANIEL; MANUEL HEATH,HAWK; HOSSEIN HEATH,TAD Calvo Attending MD Review Statement Documenting Attending: BENITA SANCHEZ MD Other Findings: The patient was seen and discussed with house staff. Agree with plan of care as outlined. OK to discharge today to SNF on oxygen (will taper at facility) and with incentive spirometry.
[2016-09-30 08:16] LABS: PT 20.9 SEC (9.4-12.5)
--- NOTE | 2016-09-30 08:34 | PN- Diabetes ---
Assessment/Plan Assessment: Mr. Marvin is a 76-year-old gentleman with past medical history of DVT on Coumadin therapy, hypertension, diabetes, CKD stage V currently on hemodialysis, peripheral vascular disease, left lower extremity necrotizing nonhealing ulcers, history of cellulitis with Pseudomonas and Crohn's disease status post bowel resection and on chronic prednisone therapy, multiple admissions over past 2-3 months, presented with fever, changes of mental status, hypotension and hypoglycemia. He probably has had aspiration pneumonia. He was admitted to ICU for sepsis. Clinically he has been better. Stress dose of steroid was discontinued. He was put back on his usual steroid-- prednisone 5 mg daily. With regards to DM, he is on Novolog coverage before meals and Novolog coverage at bedtime. The bedtime coverage was adjusted-- patient will receive small dose of insulin only when FSG is > 300. His FSG was 71, 219, 309, 249 and 93. Plan: continue the current Novolog coverage before meals and Novolog coverage at bedtime; monitor FSGs. will follow. Subjective Subjective: He has no special complaints this morning. Objective Last 24 Hrs of Vital Signs/I&O Vital Signs Date Time Temp Pulse Resp B/P Pulse O2 O2 Flow FiO2 Ox Delivery Rate 09/30 0606 97.5 103 18 129/99 98 Nasal 3.0L Cannula 09/30 0000 Nasal 2.0L Cannula 09/29 2342 97.8 68 17 118/74 92 Nasal 2.0L Cannula 09/29 1433 97.5 100 20 102/64 98 Nasal 2.0L Cannula Intake & Output 09/30 1600 09/30 0800 09/30 0000 Intake Total Output Total 1 Balance -1 Number 1 4 Bowel Movements Output, Stool 1 Patient 149 lb Weight Findings Pertinent Lab/Avtar Results: Laboratory Tests 09/30 0545 Chemistry Sodium (137 - 145 mmol/L) 139 Potassium (3.5 - 5.1 mmol/L) 4.7 Chloride (98 - 107 mmol/L) 107 Carbon Dioxide (22 - 30 mmol/L) 28 Anion Gap (5 - 16) 4 L BUN (9 - 20 mg/dL) 11 Creatinine (0.7 - 1.2 mg/dL) 2.1 H Estimated GFR (>60 ml/min) 31 L BUN/Creatinine Ratio (7 - 25 %) 5.2 L Magnesium (1.6 - 2.3 mg/dL) 1.4 L Alkaline Phosphatase (< 127 U/L) 144 H Coagulation PT (9.4 - 12.5 SEC) 20.9 H INR (0.90 - 1.17) 2.00 H Hematology CBC w Diff Pending WBC Pending RBC Pending Hgb Pending Hct Pending MCV Pending MCH Pending RDW Pending Plt Count Pending MPV Pending PUBS MCHC Pending
[2016-09-30 08:54] LABS: ABSOLUTE BASOPHIL COUNT 0 /CUMM (0.0-0.2); ABSOLUTE EOSINOPHIL COUNT 0.3 /CUMM (0.0-0.7); ABSOLUTE GRANULOCYTE CT 12.6 /CUMM (1.4-6.5); ABSOLUTE LYMPH COUNT 1.4 /CUMM (1.2-3.4); ABSOLUTE MONOCYTE COUNT 1.2 /CUMM (0.10-0.60); BASOPHIL % 0.1 % (0.0-2.0); GRANULOCYTE % 81.1 % (42.2-75.2); HEMATOCRIT 32.2 % (42-52); MEAN CORPUSCULAR HGB 29.1 PG (27.0-31.0); MEAN CORPUSCULAR VOLUME 93.8 FL (80.0-94.0); PLATELET COUNT 147 /CUMM (130-400); RBC DISTRIBUTION WIDTH 21.5 % (11.5-14.5); RED BLOOD CELL CT 3.44 /CUMM (4.70-6.10); WHITE BLOOD CELL COUNT 15.5 /CUMM (4.8-10.8)
--- NOTE | 2016-09-30 09:18 | PN- Housestaff ---
SHABANA HEATH,[facility] 09/30/16 0918: Subjective Follow-up For: 1. ESRD on dialysis 2. anti-phospholipid syndrome with chrnic DVT, on coumadin with supratherapeutic INR 3. aspiration pneumonia 4. Subjective: I saw and examined the patient at bedside today, he is alert and awake, in no distress, is concerned about the bruising and hematoma underneath her skin on the dorsal aspect of his left hand. Denies chills, denies dizziness, abdominal pain, reports still having loose stools. Review of Systems Constitutional: Reports: weakness. Denies: chills, fever. EENTM: Reports: no symptoms. Cardiovascular: Denies: chest pain, palpitations. Respiratory: Denies: cough, short of breath. Gastrointestinal: Reports: diarrhea. Denies: nausea, bloody stool, vomiting. Genitourinary: Reports: no symptoms. Musculoskeletal: Reports: no symptoms. Skin: Reports: lesions. Neurological/Psychological: Reports: weakness. Hematologic/Endocrine: Reports: bleeding. Immunologic/Allergic: Denies: no symptoms. Objective Last 24 Hrs of Vital Signs/I&O Vital Signs Date Time Temp Pulse Resp B/P Pulse O2 O2 Flow FiO2 Ox Delivery Rate 09/30 0606 97.5 103 18 129/99 98 Nasal 3.0L Cannula 09/30 0000 Nasal 2.0L Cannula 09/29 2342 97.8 68 17 118/74 92 Nasal 2.0L Cannula 09/29 1433 97.5 100 20 102/64 98 Nasal 2.0L Cannula Intake & Output 09/30 1600 / 0800 09/30 0000 Intake Total Output Total 1 Balance -1 Number 1 4 Bowel Movements Output, Stool 1 Patient 67.585 kg Weight Physical Exam General Appearance: Alert, Oriented X3, Cooperative Skin: hematoma on the odrsal aspect of left hand chronic ulcers on the lower extreimites (left and right posterior lowe legs), left foot ulcer, cocyygeal pressure ulcer HEENT: Atraumatic, EOMI Neck: Supple, No JVD Cardiovascular: Normal S1, Normal S2, No Murmurs Lungs: Normal Air Movement, no wheezing or rhonchi Abdomen: Soft, No Tenderness Neurological: Normal Speech, Normal Tone Extremities: Normal Pulses, No Tenderness/Swelling, chronic ulcer on the posterior left loer leg, left inner thigh, left foot dry eschar, left heel stable eschar, right posterior leg. stable and unchanged. Current Medications: Current Medications Sig/Kailash Start time Last Medication Dose Route Stop Time Status Admin Acetaminophen 650 MG Q6P PRN 09/24 1400 AC 09/28 PO 2218 Atorvastatin Calcium 40 MG QPM 09/24 2200 AC 09/29 PO 2108 Calcium Carbonate 500 MG TID 09/24 2200 AC 09/30 PO 0955 Ceftazidime 1,000 MG Q24H 09/24 1615 AC 09/29 IV 1740 Cholestyramine Resin 1 PAC BID 09/27 1000 AC 09/30 PO 0955 Cyanocobalamin 1,000 MCG DAILY 09/25 1000 AC 09/30 PO 0955 Diphenoxylate HCl/ 2.5 MG BID 09/26 1156 AC 09/30 Atropine PO 1005 Epoetin Ludwig 2,000 UNIT TuThSa PRN 09/28 0730 AC IV Epoetin Ludwig 3,000 UNIT TuThSa PRN 09/28 0730 AC IV Ferrous Sulfate 325 MG QPM 09/24 2200 AC 09/29 PO 2108 Guaifenesin 600 MG BID 09/24 2200 AC 09/30 PO 0955 Insulin Aspart 0 AT BEDTIME 09/25 2200 AC 09/28 SC 2217 Insulin Aspart 0 TIDAC 09/25 1700 AC 09/30 SC 1231 Lactobacillus 1 CAP WITH MEALS 09/27 0800 AC 09/30 Acidophilus PO 1231 Multivitamins 1 TAB DAILY 09/25 1000 AC 09/30 PO 0954 Omeprazole 20 MG DAILY AC 09/25 0700 AC 09/30 PO 0546 Oxycodone/ 1 TAB Q6P PRN 09/25 1515 AC 09/27 Acetaminophen PO 1234 Oxycodone/ 2 TAB Q6P PRN 09/25 1515 AC 09/30 Acetaminophen PO 1005 Prednisone 5 MG DAILY 09/27 1000 AC 09/30 PO 0955 Sevelamer Carbonate 800 MG WM 09/24 1700 AC 09/30 PO 1231 Sodium Chloride 1 SPRAY 4 TIMES/DAY PRN 09/24 1445 AC CARLITOS Vancomycin HCl See Dose TuThSa PRN 09/28 0900 AC Insts (1) IV Warfarin Sodium 1 MG COUMADIN 1700 ONE 09/29 1700 DC 09/29 PO 09/29 1701 1742 Dose Instructions: (1)Vancomycin HCl: dose based on random Vanco level Last 24 Hrs of Lab/Avtar Results Last 24 Hrs of Labs/Mics: Laboratory Tests 09/30/16 0545: Anion Gap 4 L, Estimated GFR 31 L, BUN/Creatinine Ratio 5.2 L, Magnesium 1.4 L, Alkaline Phosphatase 144 H, PT 20.9 H, INR 2.00 H, CBC w Diff NO MAN DIFF REQ, RBC 3.44 L, MCV 93.8, MCH 29.1, RDW 21.5 H, MPV 8.0, Gran % 81.1 H, Lymphocytes % 8.8 L, Monocytes % 8.0, Eosinophils % 2.0, Basophils % 0.1, Absolute Granulocytes 12.6 H, Absolute Lymphocytes 1.4, Absolute Monocytes 1.2 H, Absolute Eosinophils 0.3, Absolute Basophils 0, PUBS MCHC 31.0 L Assessment/Plan Assessment: Sepsis 2/2 suspected aspiration pneumonia * ID following. Appreciate their recs. * UC: grew yeas and BC: no growth after 5 days. * Attempt to collect sputum culture. * Patient remained to be afebrile with stable vital signs * Continue ceftazidime 1 g IV Q8H per ID * Vanc random level was checked yesterday adjusted dose was given after dialysis per pharmacy recommendation * Flagyl discontinued. Acute hypoxemic respiratory failure - resolved * Provide supplemental oxygen to keep SpO2 > 92%. * Continue Mucinex 600 mg PO BID for cough. Hypotension - resolved Blood pressures have improved with IV fluids. Remains hemodynamically stable. * Monitor hemodynamics. * Monitor strict I/Os. * DC'd fluids Antiphospholipid syndrome INR has further increased to 2.01 today. 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 * 10 mg of vitamin K oral was given on Friday * Dosed warfarin 1 mg yesterday * Will give another 1 mg of warfarin today T2DM Came with hypoglycemia. Blood sugar this morning was 50 refractory to glucose intake. Patient was treated with dexamethazone with the impression of adrenal insufficiency. Now off of dexamethazone. * Follow-up serum glucose level * Adjustment to NovoLog coverage at bedtime was done * Endocrinology following. Appreciate their recs. * Accu-checks and Novolog TIDAC sliding scale. * Continue to hold prior to admission Levemir. ESRD Dialysis on //Fri. * Nephrology following. Appreciate their recs. * Continue Epogen IV with dialysis. * Watch hypokalemia--> Pt has K 4.7 today Left hand hematoma Evidence of prior bleeding under the skin at the prior IV line site on the dorsum of the left hand. Painful and causing discomfort. Possible in the setting of elevated INR. Currently no active bleeding noted, hematoma has not increased in size. INR is 2.00 today. * encouraged elevation of the left arm * will monitor INR daily Lower extremity and coccyx wounds There is an unstageable pressure injury on the coccyx, 3x1.5 cm with slough covering the surface. there is a full thickness left inner thigh wound (6x3 cm) as well as a left post leg full thickness wound (30x12 cm). Also there is a left foot dry stable eschar, as well as a left heel stable eschar, also a right posterior leg full thickness wound (3x5 cm). * wound care consult * Recs: cleanse leg and thigh wounds with NS FB hydrogel xeroform and DPD daily. leave heel wounds and foot wounds open to air after daily bedtime swab * cleanse coccyx with NS FB hydrocolloid dressing Q3 days and PRN Renal Dialysis Diet - Ground Diet and Honey Thick Liquids DVT/Prophylaxis: pharmacological Code Status: Do Not Resucitate/Intubat Problem List: 1. Aspiration pneumonia 2. ESRD (end stage renal disease) on dialysis 3. Severe sepsis 4. Diarrhea 5. Crohns disease 6. Peripheral vascular disease 7. Antiphospholipid antibody syndrome Pain Ratin Pain Location: left foot Pain Goal: Pain 4 or less Pain Plan: tylenol for mild pain, percocet for mod-severe pain Tomorrow's Labs & Rationales: CBC (anemia, sepsis and aspiration PNA), BEP (ESRD on dialysis), INR (on coumadin) BENITA SANCHEZ MD 09/30/16 2212: Attending MD Review Statement Attending Statement Attending MD Statement: examined this patient, discuss w/resident/PA/WATER LEAK REPAIRER, agreed w/resident/PA/WATER LEAK REPAIRER, discussed with family, reviewed EMR data (avail), discussed with nursing, discussed with case mgmt, amended to note Attending Assessment/Plan: The patient was seen and discussed with house staff. Agree with plan of care as outlined.
--- NOTE | 2016-09-30 13:44 | PN- Infect Dx ---
Subjective Subjective: Afebrile. He complains of pain over the dorsal aspect of his left hand at the site of a previous IV from his last admission. He continues to complain of diarrhea, with 9 stools reported yesterday and 4 overnight. He has no cough or shortness of breath. Objective Last 24 Hrs of Vital Signs/I&O Vital Signs Date Time Temp Pulse Resp B/P Pulse O2 O2 Flow FiO2 Ox Delivery Rate 09/30 605 97.5 103 18 129/99 98 Nasal 3.0L Cannula 09/30 0000 Nasal 2.0L Cannula 09/29 2342 97.8 68 17 118/74 92 Nasal 2.0L Cannula 09/29 1433 97.5 100 20 102/64 98 Nasal 2.0L Cannula Intake & Output 09/30 1600 09/30 0800 09/30 0000 Intake Total Output Total 1 Balance -1 Number 1 4 Bowel Movements Output, Stool 1 Patient 149 lb Weight Physical Exam Other Physical Findings: He appears mildly uncomfortable in no acute distress Neck left subclavian triple-lumen catheter site with no inflammation; tunneled catheter right IJ with no inflammation at the site Lungs are clear Abdomen is soft, nontender with positive bowel sounds Extremities necrotic wound on the dorsal aspect of his left hand with surrounding erythema and tenderness; bilateral upper extremity swelling, particularly involving the forearms and olecranon bursae; left thigh necrotic ulcer tender to palpation, with no surrounding erythema Results Last 24 Hours of Lab Results: Laboratory Tests 09/30 05 Chemistry Sodium (137 - 145 mmol/L) 139 Potassium (3.5 - 5.1 mmol/L) 4.7 Chloride (98 - 107 mmol/L) 107 Carbon Dioxide (22 - 30 mmol/L) 28 Anion Gap (5 - 16) 4 L BUN (9 - 20 mg/dL) 11 Creatinine (0.7 - 1.2 mg/dL) 2.1 H Estimated GFR (>60 ml/min) 31 L BUN/Creatinine Ratio (7 - 25 %) 5.2 L Magnesium (1.6 - 2.3 mg/dL) 1.4 L Alkaline Phosphatase (< 127 U/L) 144 H Coagulation PT (9.4 - 12.5 SEC) 20.9 H INR (0.90 - 1.17) 2.00 H Hematology CBC w Diff NO MAN DIFF REQ WBC (4.8 - 10.8 /CUMM) 15.5 H RBC (4.70 - 6.10 /CUMM) 3.44 L Hgb (14.0 - 18.0 G/DL) 10.0 L Hct (42 - 52 %) 32.2 L MCV (80.0 - 94.0 FL) 93.8 MCH (27.0 - 31.0 PG) 29.1 RDW (11.5 - 14.5 %) 21.5 H Plt Count (130 - 400 /CUMM) 147 MPV (7.4 - 10.4 FL) 8.0 Gran % (42.2 - 75.2 %) 81.1 H Lymphocytes % (20.5 - 51.1 %) 8.8 L Monocytes % (1.7 - 9.3 %) 8.0 Eosinophils % (0 - 5 %) 2.0 Basophils % (0.0 - 2.0 %) 0.1 Absolute Granulocytes (1.4 - 6.5 /CUMM) 12.6 H Absolute Lymphocytes (1.2 - 3.4 /CUMM) 1.4 Absolute Monocytes (0.10 - 0.60 /CUMM) 1.2 H Absolute Eosinophils (0.0 - 0.7 /CUMM) 0.3 Absolute Basophils (0.0 - 0.2 /CUMM) 0 PUBS MCHC (33.0 - 37.0 G/DL) 31.0 L Last 24 Hours of Avtar Results: Stool C. difficile September 27 negative Assessment/Plan Impression: Remains afebrile but white blood cell count now increased after normalizing from admission on empiric treatment with Vancomycin and Ceftazidime now Day 6 of treatment for presumed sepsis secondary to pneumonia. His leukocytosis may be secondary to the inflammation on the dorsum of his left hand, which may represent a phlebitis or cellulitis from an IV from his previous admission. His bilateral upper extremity edema may suggest fluid overload, but, with central lines in place, DVT may need to be ruled out. His diarrhea has been a chronic problem, with stool C. difficile negative 2 on this admission, and treatment with Lomotil may need to be optimized. Suggestion: 1. Repeat stool for C. difficile 2. Would increase the frequency of Lomotil, for example 1-2 tablets before each meal 3. Warm soaks to and elevation of the left hand 4. Consider Dopplers of both upper extremities 5. Obtain a random Vancomycin level with dialysis in the a.m. and re-dose with Vancomycin after dialysis per protocol 6. Continue Ceftazidime
[2016-09-30 15:04] VITALS: BP 118/64
--- NOTE | 2016-09-30 15:30 | NUR ---
PHYSICAL THERAPY: Consult order recieved, patient chart reviewed, spoke to RN and patient. Patient is well known to Physical Therapy from multiple recent admissions. [facility] has been utilizing [facility] Ax[facility] for OOB; Patient has not trialed OOB since May, per patient's account. At this time, it is not clinically appropriate for skilled acute P.T. services due to the patient's current mobility status, limited ability to participate in treatmet, and significant level of assistance required. P.T. will not follow patient at this time; however it is recommended that patient d/c to Sub-Acute Rehab to maximize function. For the safety of staff & pt, nsg to continue to utilize Josh lift > OOB as appropriate at this time. Thank you.
[2016-09-30 22:15] VITALS: BP 116/78
[2016-10-01 06:11] VITALS: BP 116/76
--- NOTE | 2016-10-01 07:17 | PN- Housestaff ---
SHABANA HEATH,[facility] 10/01/16 0717: Subjective Follow-up For: 1. New onset left hand swelling with hematoma on the dorsum of the left hand 2. aspiration pneumonia 3. ESRD on dialysis 4. anti-phospholipid syndrome with chrnic DVT, on coumadin 5. Chronic lower extremity ulcers, coccygeal ulcer 6. Weakness and being bedridden Subjective: I saw and examined the patient at bedside this morning, he is awake alert in no distress. He does not report any fever or chills, shortness of breath, coughing. Patient reports worsening of the swelling in the left hand and is concerned about the collection of blood underneath the skin. Patient denies any pain in the legs, also denies abdominal pain, reports he is passing less frequent stools and diarrhea has improved. Review of Systems Constitutional: Reports: weakness. Denies: chills, fever. EENTM: Reports: no symptoms. Cardiovascular: Denies: chest pain, palpitations. Respiratory: Denies: cough, short of breath, sputum production. Gastrointestinal: Denies: abdominal pain, changes in stool. Genitourinary: Reports: no symptoms. Musculoskeletal: Denies: back pain, joint swelling. Skin: Reports: lesions. Neurological/Psychological: Reports: no symptoms. Hematologic/Endocrine: Reports: bruising. Objective Last 24 Hrs of Vital Signs/I&O Vital Signs Date Time Temp Pulse Resp B/P Pulse O2 O2 Flow FiO2 Ox Delivery Rate 10/01 0611 98.0 98 20 116/76 93 Nasal 3.0L Cannula 10/01 0000 Nasal 3.0L Cannula 09/30 2215 79 20 116/78 93 Nasal 3.0L Cannula 09/30 1504 98.1 109 18 118/64 95 Nasal 3.0L Cannula Intake & Output 10/01 1600 10/01 0800 10/01 0000 Intake Total 120 120 Output Total 4 Balance 120 116 Intake, Oral 120 120 Number 5 2 Bowel Movements Output, Stool 4 Patient 66.224 kg Weight Physical Exam General Appearance: Alert, Oriented X3, Cooperative, No Acute Distress Skin: multiple skin ulcers on the lower extremities as well as in the coccygeal area. Dressing daily changed, is no purulent discharge. Patient has a tunneled cath for dialysis on the right side of the chest which is nonerythematous and nontender, there is a subclavian line on the left side of the chest which also is nontender and nonerythematous and there is no bleeding at the site of the catheter. HEENT: Atraumatic, EOMI Neck: Supple, No JVD Cardiovascular: Normal S1, Normal S2, No Murmurs, irregularly irregular Lungs: Clear to Auscultation, Normal Air Movement Abdomen: Soft, No Tenderness Neurological: Normal Speech, Normal Tone Extremities: No Edema, Normal Pulses Vascular: Pulses Symmetrical Current Medications: Current Medications Sig/Kailash Start time Last Medication Dose Route Stop Time Status Admin Acetaminophen 650 MG Q6P PRN 09/24 1400 AC 09/28 PO 2218 Atorvastatin Calcium 40 MG QPM 09/24 2200 AC 09/30 PO 2126 Calcium Carbonate 500 MG TID 09/24 220 AC 10/01 PO 0820 Ceftazidime 1,000 MG Q24H 09/24 1615 AC 09/30 IV 1740 Cholestyramine Resin 1 PAC BID 09/27 1000 AC 10/01 PO 1035 Cyanocobalamin 1,000 MCG DAILY 09/25 1000 AC 09/30 PO 0955 Diphenoxylate HCl/ 2.5 MG AC 09/30 1600 AC 10/01 Atropine PO 0557 Diphenoxylate HCl/ 2.5 MG BID 09/26 1156 DC 09/30 Atropine PO 1005 Epoetin Ludwig 2,000 UNIT TuThSa PRN 09/28 0730 AC IV Epoetin Ludwig 3,000 UNIT TuThSa PRN 09/28 0730 AC IV Ferrous Sulfate 325 MG QPM 09/24 2200 AC 09/30 PO 2126 Guaifenesin 600 MG BID 09/24 2200 AC 10/01 PO 1035 Insulin Aspart 0 AT BEDTIME 09/25 2200 AC 09/28 SC 2217 Insulin Aspart 0 TIDAC 09/25 1700 AC 10/01 SC 0819 Lactobacillus 1 CAP WITH MEALS 09/27 0800 AC 10/01 Acidophilus PO 0820 Magnesium Sulfate 1 GM ONCE ONE 09/30 1330 DC 09/30 Dextrose/Water 100 ML IV 09/30 1729 1522 Multivitamins 1 TAB DAILY 09/25 1000 AC 09/30 PO 0954 Omeprazole 20 MG DAILY AC 09/25 0700 AC 10/01 PO 0557 Oxycodone/ 1 TAB Q6P PRN 09/25 1515 AC 03/03 Acetaminophen PO 1234 Oxycodone/ 2 TAB Q6P PRN 09/25 1515 AC 10/01 Acetaminophen PO 1106 Patient Medication 1 ED .STK-MED ONE 09/30 1404 DC Teaching ED 09/30 1405 Prednisone 5 MG DAILY 09/27 1000 AC 09/30 PO 0955 Sevelamer Carbonate 800 MG WM 09/24 1700 AC 10/01 PO 0820 Sodium Chloride 1 SPRAY 4 TIMES/DAY PRN 09/24 1445 AC CARLITOS Vancomycin HCl 1,000 MG ONCE ONE 10/01 0930 DC Dextrose/Water 250 ML IV 10/01 1029 Vancomycin HCl See Dose TuThSa PRN 09/28 0900 AC Insts (1) IV Warfarin Sodium 1 MG COUMADIN 1700 ONE 09/30 1700 DC 09/30 PO 09/30 170 2044 Dose Instructions: (1)Vancomycin HCl: dose based on random Vanco level Last 24 Hrs of Lab/Avtar Results Last 24 Hrs of Labs/Mics: Laboratory Tests 10/01/16 0530: Random Vancomycin Cancelled 10/01/16 0530: Anion Gap 5, Estimated GFR 25 L, BUN/Creatinine Ratio 6.8 L, Prealbumin 10.3 L, PT 22.7 H, INR 2.18 H, CBC w Diff NO MAN DIFF REQ, RBC 3.23 L, MCV 94.1 H , MCH 29.5, RDW 22.3 H, MPV 8.9, Gran % 80.2 H, Lymphocytes % 9.2 L, Monocytes % 9.1, Eosinophils % 1.5, Basophils % 0 L, Absolute Granulocytes 9.2 H, Absolute Lymphocytes 1.1 L, Absolute Monocytes 1.0 H, Absolute Eosinophils 0.2, Absolute Basophils 0, PUBS MCHC 31.4 L, Random Vancomycin 13.5 Microbiology 10/01 0115 STOOL: Clostridium difficile Toxin A & B - RECD Assessment/Plan Assessment: 75 y/o M with PMHx of IDDM, ESRD on HD and PVD who is admitted for severe sepsis and is being treated for aspiration pneumonia. Patient also was found to be hypoglycemic, and hypotensive which are currently resolved. Patient is getting dialyzed on Friday and Friday. Patient is also on Coumadin for antiphospholipid syndrome with chronic DVTs. He also has multiple wounds in the lower extremity from peripheral last very disease, as well as a coccygeal wound. Patient is has not been able to be ambulatory since June 26. Sepsis 2/2 suspected aspiration pneumonia Patient has a stayed afebrile, saturating on 3 L per nasal cannula, denies any shortness of breath, lung exam unremarkable. * ID following, appreciated recommendations. will DC vanc and ceftaz after today 's dose. * UC: grew yeast and BC: no growth after 5 days. * Attempt to collect sputum culture. * Continue ceftazidime 1 g IV Q8H per ID * Vanc random level checked this morning and adjusted dose will be given after dialysis Antiphospholipid syndrome INR has further increased to 2.18 today. 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 10 mg of vitamin K oral was given on Friday. * Dosed warfarin 1 mg yesterday * Will give another 1 mg of warfarin today T2DM Came with hypoglycemia. Blood sugar this morning was 50 refractory to glucose intake. Patient was treated with dexamethazone with the impression of adrenal insufficiency. Now off of dexamethazone. * Follow-up serum glucose level, blood sugars have been in the range of 260s-300 since yesterday at noon * Endocrinology following. Appreciate their recs. * Accu-checks and Novolog TIDAC sliding scale. * Continue to hold prior to admission Levemir. ESRD Dialysis on //Fri. * Nephrology following. Appreciate their recs. * Continue Epogen IV with dialysis. * Watch hypokalemia--> Pt has K 5.3 today, patient is going for dialysis today Left hand hematoma Evidence of prior bleeding under the skin at the prior IV line site on the dorsum of the left hand. Painful and causing discomfort. Possible in the setting of elevated INR. Currently no active bleeding noted, hematoma has not increased in size. INR is 2.18 today. Patient has more swelling on the left arm today which can be attributed to the subclavian line put on the left side. * Doppler ultrasound of the left arm * encouraged elevation of the left arm * will monitor INR daily Lower extremity and coccyx wounds There is an unstageable pressure injury on the coccyx, 3x1.5 cm with slough covering the surface. there is a full thickness left inner thigh wound (6x3 cm) as well as a left post leg full thickness wound (30x12 cm). Also there is a left foot dry stable eschar, as well as a left heel stable eschar, also a right posterior leg full thickness wound (3x5 cm). * wound care on board * We are following Recs: 1. cleanse leg and thigh wounds with NS FB hydrogel xeroform and DPD daily. leave heel wounds and foot wounds open to air after daily bedtime swab 2. cleanse coccyx with NS FB hydrocolloid dressing Q3 days and PRN Acute hypoxemic respiratory failure - resolved * Provide supplemental oxygen to keep SpO2 > 92%. * Continue Mucinex 600 mg PO BID for cough. Hypotension - resolved Blood pressures have improved with IV fluids. Remains hemodynamically stable. * Monitor hemodynamics. * Monitor strict I/Os. * DC'd fluids Renal Dialysis Diet - Ground Diet and Honey Thick Liquids DVT/Prophylaxis: pharmacological Code Status: Do Not Resucitate/Intubat Problem List: 1. Aspiration pneumonia 2. ESRD (end stage renal disease) on dialysis 3. Diarrhea 4. Crohns disease 5. Peripheral vascular disease 6. Type 2 diabetes mellitus 7. Antiphospholipid antibody syndrome 8. Supratherapeutic INR Pain Ratin Pain Location: Lower extremities Pain Goal: Pain 4 or less Pain Plan: Tylenol, Percocet Tomorrow's Labs & Rationales: CBC (leukocytosis, anemia) BEP (ESRD on dialysis, hyperkalemia, elevated creatinine) INR (on Coumadin) BENITA SANCHEZ MD 10/01/16 1605: Attending MD Review Statement Attending Statement Attending MD Statement: examined this patient, discuss w/resident/PA/[facility] SOLUTION ARCHITECT, agreed w/resident/PA/[facility] SOLUTION ARCHITECT, discussed with family, reviewed EMR data (avail), discussed with nursing, discussed with case mgmt, amended to note Attending Assessment/Plan: The patient was seen and discussed with house staff. Agree with plan of care as outlined. ID input appreciated. Await venous duplex left arm.
[2016-10-01 08:06] LABS: ABSOLUTE BASOPHIL COUNT 0 /CUMM (0.0-0.2); ABSOLUTE EOSINOPHIL COUNT 0.2 /CUMM (0.0-0.7); ABSOLUTE GRANULOCYTE CT 9.2 /CUMM (1.4-6.5); ABSOLUTE LYMPH COUNT 1.1 /CUMM (1.2-3.4); BASOPHIL % 0 % (0.0-2.0); EOSINOPHIL % 1.5 % (0-5); GRANULOCYTE % 80.2 % (42.2-75.2); HEMATOCRIT 30.3 % (42-52); MEAN CORPUSCULAR HGB 29.5 PG (27.0-31.0); MEAN CORPUSCULAR HGB CONC 31.4 G/DL (33.0-37.0); MEAN CORPUSCULAR VOLUME 94.1 FL (80.0-94.0); MEAN PLATELET VOLUME 8.9 FL (7.4-10.4); PLATELET COUNT 137 /CUMM (130-400); RBC DISTRIBUTION WIDTH 22.3 % (11.5-14.5); RED BLOOD CELL CT 3.23 /CUMM (4.70-6.10); WHITE BLOOD CELL COUNT 11.5 /CUMM (4.8-10.8)
[2016-10-01 08:12] LABS: PT 22.7 SEC (9.4-12.5)
--- NOTE | 2016-10-01 12:52 | PN- Diabetes ---
Assessment/Plan Assessment: Mr. Marvin is a 76-year-old gentleman with past medical history of DVT on Coumadin therapy, hypertension, diabetes, CKD stage V currently on hemodialysis, peripheral vascular disease, left lower extremity necrotizing nonhealing ulcers, history of cellulitis with Pseudomonas and Crohn's disease status post bowel resection and on chronic prednisone therapy, multiple admissions over past 2-3 months, presented with fever, changes of mental status, hypotension and hypoglycemia. He probably has had aspiration pneumonia. He was admitted to ICU for sepsis. Clinically he has been better. Stress dose of steroid was discontinued. He was put back on his usual steroid-- prednisone 5 mg daily. With regards to DM, he is on Novolog coverage before meals and Novolog coverage at bedtime. The bedtime coverage was adjusted-- patient will receive small dose of insulin only when FSG is > 300. His FSG was 93, 283, 268 and 219. Plan: adjusted Novolog coverage before meals-- detail see the inpatient DM order; continue the current Novolog coverage at bedtime; monitor FSGs; will follow Inpatient Diabetes Orders Before Each Meal: Bolus Insulin: Novolog < 80 mg/dl: no coverage 80-100 mg/dl: 3 units 101-120 mg/dl: 3 units 121-150 mg/dl: 3 units 151-200 mg/dl: 4 units 201-250 mg/dl: 5 units 251-300 mg/dl: 6 units 301-350 mg/dl: 7 units 351-400 mg/dl: 8 units > 400 mg/dl: 9 units Subjective Subjective: His appetite has been better. His glucopse level has been elevated lately. Objective Last 24 Hrs of Vital Signs/I&O Vital Signs Date Time Temp Pulse Resp B/P Pulse O2 O2 Flow FiO2 Ox Delivery Rate 10/01 0611 98.0 98 20 116/76 93 Nasal 3.0L Cannula 10/01 0000 Nasal 3.0L Cannula 09/30 2215 79 20 116/78 93 Nasal 3.0L Cannula 09/30 1504 98.1 109 18 118/64 95 Nasal 3.0L Cannula Intake & Output 10/01 1600 10/01 0800 10/01 0000 Intake Total 120 120 Output Total 4 Balance 120 116 Intake, Oral 120 120 Number 5 2 Bowel Movements Output, Stool 4 Patient 146 lb Weight Findings Pertinent Lab/Avtar Results: Laboratory Tests 10/01 10/01 0530 0530 Chemistry Sodium (137 - 145 mmol/L) 136 L Potassium (3.5 - 5.1 mmol/L) 5.3 H Chloride (98 - 107 mmol/L) 109 H Carbon Dioxide (22 - 30 mmol/L) 23 Anion Gap (5 - 16) 5 BUN (9 - 20 mg/dL) 17 Creatinine (0.7 - 1.2 mg/dL) 2.5 H Estimated GFR (>60 ml/min) 25 L BUN/Creatinine Ratio (7 - 25 %) 6.8 L Prealbumin (17.6 - 36.0 mg/dL) 10.3 L Coagulation PT (9.4 - 12.5 SEC) 22.7 H INR (0.90 - 1.17) 2.18 H Hematology CBC w Diff NO MAN DIFF REQ WBC (4.8 - 10.8 /CUMM) 11.5 H RBC (4.70 - 6.10 /CUMM) 3.23 L Hgb (14.0 - 18.0 G/DL) 9.5 L Hct (42 - 52 %) 30.3 L MCV (80.0 - 94.0 FL) 94.1 H MCH (27.0 - 31.0 PG) 29.5 RDW (11.5 - 14.5 %) 22.3 H Plt Count (130 - 400 /CUMM) 137 MPV (7.4 - 10.4 FL) 8.9 Gran % (42.2 - 75.2 %) 80.2 H Lymphocytes % (20.5 - 51.1 %) 9.2 L Monocytes % (1.7 - 9.3 %) 9.1 Eosinophils % (0 - 5 %) 1.5 Basophils % (0.0 - 2.0 %) 0 L Absolute Granulocytes (1.4 - 6.5 /CUMM) 9.2 H Absolute Lymphocytes (1.2 - 3.4 /CUMM) 1.1 L Absolute Monocytes (0.10 - 0.60 /CUMM) 1.0 H Absolute Eosinophils (0.0 - 0.7 /CUMM) 0.2 Absolute Basophils (0.0 - 0.2 /CUMM) 0 PUBS MCHC (33.0 - 37.0 G/DL) 31.4 L Toxicology Random Vancomycin (ug/ml) Cancelled 13.5
--- NOTE | 2016-10-01 12:59 | PN- Infect Dx ---
Subjective Subjective: Afebrile. He still notes discomfort over the dorsal aspect of his left hand. He also notes lower extremity pain after dressing changes earlier today. He notes some improvement in his diarrhea with an increase in his doses of Lomotil. He still notes a cough. Objective Last 24 Hrs of Vital Signs/I&O Vital Signs Date Time Temp Pulse Resp B/P Pulse O2 O2 Flow FiO2 Ox Delivery Rate 10/01 0611 98.0 98 20 116/76 93 Nasal 3.0L Cannula 10/01 0000 Nasal 3.0L Cannula 09/30 2215 79 20 116/78 93 Nasal 3.0L Cannula 09/30 1504 98.1 109 18 118/64 95 Nasal 3.0L Cannula Intake & Output 10/01 1600 10/01 0800 10/01 0000 Intake Total 120 120 Output Total 4 Balance 120 116 Intake, Oral 120 120 Number 5 2 Bowel Movements Output, Stool 4 Patient 146 lb Weight Physical Exam Other Physical Findings: He appears comfortable in no acute distress Neck left subclavian triple-lumen catheter site with no inflammation; tunneled catheter in the right IJ mildly tender on palpation, with no erythema or drainage Lungs are clear anteriorly Heart regular rhythm with no murmur Extremities necrotic eschar over the dorsal aspect of his left hand with surrounding erythema and tenderness; edema over both olecranon bursae, with slight erythema on the left, nontender to palpation; dressings intact over both lower extremities Results Last 24 Hours of Lab Results: Laboratory Tests 10/01 10/01 0530 0530 Chemistry Sodium (137 - 145 mmol/L) 136 L Potassium (3.5 - 5.1 mmol/L) 5.3 H Chloride (98 - 107 mmol/L) 109 H Carbon Dioxide (22 - 30 mmol/L) 23 Anion Gap (5 - 16) 5 BUN (9 - 20 mg/dL) 17 Creatinine (0.7 - 1.2 mg/dL) 2.5 H Estimated GFR (>60 ml/min) 25 L BUN/Creatinine Ratio (7 - 25 %) 6.8 L Prealbumin (17.6 - 36.0 mg/dL) 10.3 L Coagulation PT (9.4 - 12.5 SEC) 22.7 H INR (0.90 - 1.17) 2.18 H Hematology CBC w Diff NO MAN DIFF REQ WBC (4.8 - 10.8 /CUMM) 11.5 H RBC (4.70 - 6.10 /CUMM) 3.23 L Hgb (14.0 - 18.0 G/DL) 9.5 L Hct (42 - 52 %) 30.3 L MCV (80.0 - 94.0 FL) 94.1 H MCH (27.0 - 31.0 PG) 29.5 RDW (11.5 - 14.5 %) 22.3 H Plt Count (130 - 400 /CUMM) 137 MPV (7.4 - 10.4 FL) 8.9 Gran % (42.2 - 75.2 %) 80.2 H Lymphocytes % (20.5 - 51.1 %) 9.2 L Monocytes % (1.7 - 9.3 %) 9.1 Eosinophils % (0 - 5 %) 1.5 Basophils % (0.0 - 2.0 %) 0 L Absolute Granulocytes (1.4 - 6.5 /CUMM) 9.2 H Absolute Lymphocytes (1.2 - 3.4 /CUMM) 1.1 L Absolute Monocytes (0.10 - 0.60 /CUMM) 1.0 H Absolute Eosinophils (0.0 - 0.7 /CUMM) 0.2 Absolute Basophils (0.0 - 0.2 /CUMM) 0 PUBS MCHC (33.0 - 37.0 G/DL) 31.4 L Toxicology Random Vancomycin (ug/ml) Cancelled 13.5 Last 24 Hours of Avtar Results: Stool C. difficile October 01 pending Assessment/Plan Impression: Stable with temperatures remain normal and white blood cell count decreased today, after an unexplained increase yesterday possibly secondary to the necrotic wound on the dorsal aspect of his left hand, which is related to an IV from a previous admission. He remains on empiric treatment with Vancomycin and Ceftazidime now Day 7 of treatment for presumed sepsis secondary to pneumonia, and his antibiotics can be discontinued after today's doses. His bilateral upper extremity edema is of unclear etiology. DVT's are possible, with bilateral central lines in place, but unlikely as he is on Coumadin. His diarrhea appears to be improved with the increased frequency of Lomotil, with a repeat stool C. difficile pending. Suggestion: 1. Follow-up stool for C. difficile 2. Continue Lomotil pending above 3. Warm soaks to and elevation of the left hand 4. Follow-up Dopplers of both upper extremities 5. Discontinue Vancomycin and Ceftazidime after today's doses
[2016-10-01 14:37] VITALS: BP 128/66
--- NOTE | 2016-10-01 16:18 | PN- Nephrology ---
Assessment/Plan Assessment: ESRD - Dialysis today. To cont on TTS schedule. Aspiration PNA - Clinically improved on abx which are to finish today. Hopefully will not have issues with aspirating with dietary modifications. Anemia - On Epogen which should be continued with dialysis. Hypokalemia - Supplemented - Now hyperkalemia - no further need for K supplementation. Currently on a 3K dialysis bath. May need to be switched back to 2K depending on labs over the next couple of days. Suggestion: -Dialysis today -To continue on //Fri dialysis schedule -Cont Epogen with dialysis -Modification of diet and re-evaluation based on MBS -No further K supplementation Please call [phone] with ?'s Subjective Subjective: Pt doing OK WBC down to 11.5; no new positive cultures; afebrile; today will be the last day of abx No new imaging Objective Vital Signs and I&Os Vital Signs Date Time Temp Pulse Resp B/P Pulse O2 O2 Flow FiO2 Ox Delivery Rate 10/01 1437 97.9 102 20 128/66 92 Nasal 3.0L Cannula 10/01 0611 98.0 98 20 116/76 93 Nasal 3.0L Cannula 10/01 0000 Nasal 3.0L Cannula 09/30 2215 79 20 116/78 93 Nasal 3.0L Cannula Intake & Output 10/01 1600 10/01 0400 09/30 1600 09/30 0400 09/29 1600 / 0400 Intake Total 461 612 2042 960 200 Output Total 4 300 1 3 327 Balance 120 116 870 -1 957 -127 Intake, IV 0 Intake, Oral 137 818 3087 960 200 Number 5 2 4 4 7 1 Bowel Movements Output, Stool 4 1 3 2 Output, Urine 300 325 Patient 146 lb 149 lb 148 lb Weight Physical Exam: Gen - OK appearing HEENT - supple CV - RRR Chest - clear anteriorly Abd - soft, nontender Ext - legs dressed; dorsum of L hand with "blood blister" Neuro - AOX3 Access - L IJ PETEY cath Current Medications: Current Medications Sig/Kailash Start time Last Medication Dose Route Stop Time Status Admin Acetaminophen 650 MG Q6P PRN 09/24 1400 AC 09/28 PO 2218 Atorvastatin Calcium 40 MG QPM 09/24 2200 AC 09/30 PO 2126 Calcium Carbonate 500 MG TID 09/24 2199 AC 10/01 PO 0820 Ceftazidime 1,000 MG Q24H 09/24 1615 AC 09/30 IV 1740 Cholestyramine Resin 1 PAC BID 09/27 1000 AC 10/01 PO 1035 Cyanocobalamin 1,000 MCG DAILY 09/25 1000 AC 09/30 PO 0955 Diphenoxylate HCl/ 2.5 MG AC 09/30 1600 AC 10/01 Atropine PO 1308 Epoetin Ludwig 2,000 UNIT TuThSa PRN 09/28 0730 AC IV Epoetin Ludwig 3,000 UNIT TuThSa PRN 09/28 0730 AC IV Ferrous Sulfate 325 MG QPM 09/24 2200 AC 09/30 PO 2126 Guaifenesin 600 MG BID 09/24 2200 AC 10/01 PO 1035 Insulin Aspart 0 AT BEDTIME 09/25 2200 AC 09/28 SC 2217 Insulin Aspart 0 TIDAC 09/25 1700 AC 10/01 SC 1307 Lactobacillus 1 CAP WITH MEALS 09/27 0800 AC 10/01 Acidophilus PO 1307 Magnesium Sulfate 1 GM ONCE ONE 09/30 1330 DC 09/30 Dextrose/Water 100 ML IV 09/30 1729 1522 Multivitamins 1 TAB DAILY 09/25 1000 AC 09/30 PO 0954 Omeprazole 20 MG DAILY AC 09/25 0700 AC 10/01 PO 0557 Oxycodone/ 1 TAB Q6P PRN 09/25 1515 AC 09/27 Acetaminophen PO 1234 Oxycodone/ 2 TAB Q6P PRN 09/25 1515 AC 10/01 Acetaminophen PO 1106 Prednisone 5 MG DAILY 09/27 1000 AC 09/30 PO 0955 Sevelamer Carbonate 800 MG WM 09/24 1700 AC 10/01 PO 1307 Sodium Chloride 1 SPRAY 4 TIMES/DAY PRN 09/24 1445 AC CARLITOS Vancomycin HCl 750 MG ONCE ONE 10/01 2100 AC Dextrose/Water 250 ML IV 10/01 2159 Vancomycin HCl 1,000 MG ONCE ONE 10/01 0930 CAN Dextrose/Water 250 ML IV 10/01 1700 Vancomycin HCl See Dose TuThSa PRN 09/28 0900 AC Insts (1) IV Warfarin Sodium 1 MG COUMADIN 1700 ONE 10/01 1700 AC PO 10/01 1701 Warfarin Sodium 1 MG COUMADIN 1700 ONE 09/30 1700 DC 09/30 PO 09/30 1701 2044 Dose Instructions: (1)Vancomycin HCl: dose based on random Vanco level Results Pertinent Lab Results: Laboratory Tests 10/01 10/01 0530 0530 Chemistry Sodium (137 - 145 mmol/L) 136 L Potassium (3.5 - 5.1 mmol/L) 5.3 H Chloride (98 - 107 mmol/L) 109 H Carbon Dioxide (22 - 30 mmol/L) 23 Anion Gap (5 - 16) 5 BUN (9 - 20 mg/dL) 17 Creatinine (0.7 - 1.2 mg/dL) 2.5 H Estimated GFR (>60 ml/min) 25 L BUN/Creatinine Ratio (7 - 25 %) 6.8 L Prealbumin (17.6 - 36.0 mg/dL) 10.3 L Coagulation PT (9.4 - 12.5 SEC) 22.7 H INR (0.90 - 1.17) 2.18 H Hematology CBC w Diff NO MAN DIFF REQ WBC (4.8 - 10.8 /CUMM) 11.5 H RBC (4.70 - 6.10 /CUMM) 3.23 L Hgb (14.0 - 18.0 G/DL) 9.5 L Hct (42 - 52 %) 30.3 L MCV (80.0 - 94.0 FL) 94.1 H MCH (27.0 - 31.0 PG) 29.5 RDW (11.5 - 14.5 %) 22.3 H Plt Count (130 - 400 /CUMM) 137 MPV (7.4 - 10.4 FL) 8.9 Gran % (42.2 - 75.2 %) 80.2 H Lymphocytes % (20.5 - 51.1 %) 9.2 L Monocytes % (1.7 - 9.3 %) 9.1 Eosinophils % (0 - 5 %) 1.5 Basophils % (0.0 - 2.0 %) 0 L Absolute Granulocytes (1.4 - 6.5 /CUMM) 9.2 H Absolute Lymphocytes (1.2 - 3.4 /CUMM) 1.1 L Absolute Monocytes (0.10 - 0.60 /CUMM) 1.0 H Absolute Eosinophils (0.0 - 0.7 /CUMM) 0.2 Absolute Basophils (0.0 - 0.2 /CUMM) 0 PUBS MCHC (33.0 - 37.0 G/DL) 31.4 L Toxicology Random Vancomycin (ug/ml) Cancelled 13.5 03/06 03/05 0545 0500 Chemistry Sodium (137 - 145 mmol/L) 139 138 Potassium (3.5 - 5.1 mmol/L) 4.7 3.9 Chloride (98 - 107 mmol/L) 107 108 H Carbon Dioxide (22 - 30 mmol/L) 28 28 Anion Gap (5 - 16) 4 L 2 L BUN (9 - 20 mg/dL) 11 6 L Creatinine (0.7 - 1.2 mg/dL) 2.1 H 1.5 H Estimated GFR (>60 ml/min) 31 L 46 L BUN/Creatinine Ratio (7 - 25 %) 5.2 L 4.0 L Magnesium (1.6 - 2.3 mg/dL) 1.4 L Alkaline Phosphatase (< 127 U/L) 144 H Coagulation PT (9.4 - 12.5 SEC) 20.9 H 21.0 H INR (0.90 - 1.17) 2.00 H 2.01 H Hematology CBC w Diff NO MAN DIFF REQ NO MAN DIFF REQ WBC (4.8 - 10.8 /CUMM) 15.5 H 10.6 RBC (4.70 - 6.10 /CUMM) 3.44 L 3.36 L Hgb (14.0 - 18.0 G/DL) 10.0 L 9.8 L Hct (42 - 52 %) 32.2 L 31.4 L MCV (80.0 - 94.0 FL) 93.8 93.4 MCH (27.0 - 31.0 PG) 29.1 29.3 RDW (11.5 - 14.5 %) 21.5 H 21.4 H Plt Count (130 - 400 /CUMM) 147 193 MPV (7.4 - 10.4 FL) 8.0 7.8 Gran % (42.2 - 75.2 %) 81.1 H 79.2 H Lymphocytes % (20.5 - 51.1 %) 8.8 L 9.9 L Monocytes % (1.7 - 9.3 %) 8.0 9.1 Eosinophils % (0 - 5 %) 2.0 1.5 Basophils % (0.0 - 2.0 %) 0.1 0.3 Absolute Granulocytes (1.4 - 6.5 /CUMM) 12.6 H 8.4 H Absolute Lymphocytes (1.2 - 3.4 /CUMM) 1.4 1.0 L Absolute Monocytes (0.10 - 0.60 /CUMM) 1.2 H 1.0 H Absolute Eosinophils (0.0 - 0.7 /CUMM) 0.3 0.2 Absolute Basophils (0.0 - 0.2 /CUMM) 0 0 PUBS MCHC (33.0 - 37.0 G/DL) 31.0 L 31.4 L
--- NOTE | 2016-10-01 16:52 | ULTRASOUND REPORT ---
EXAMINATION: DUPLEX VENOUS ULTRASOUND OF THE left UPPER EXTREMITY. CLINICAL HISTORY: Left upper extremity swelling. History of DVT. COMPARISON: Venous mapping study 08/08/2016 TECHNIQUE: Grayscale, color and Doppler ultrasound of the deep veins of the left upper extremity were performed. Examination limited secondary to extensive bandages overlying the subclavian region. FINDINGS: Again noted is echogenic filling defects within the left internal jugular vein, consistent with known chronic thrombus. The subclavian vein could not be evaluated secondary to extensive overlying bandages from existing central line. The left axillary vein demonstrates normal color Doppler flow and compressibility suggesting patency. The left brachial and basilic veins are easily compressible and demonstrate normal color Doppler flow suggesting patency. The left cephalic vein is easily compressible suggesting patency. Left radial and ulnar veins demonstrate compressibility and color Doppler flow suggesting patency. IMPRESSION: Persistent echogenic filling defects within the left internal jugular vein, most consistent with known chronic thrombus. Evaluation of the left subclavian vein was limited secondary to extensive overlying bandages. The remainder of the deep veins of the left upper extremity are grossly unremarkable.
--- NOTE | 2016-10-01 18:32 | Patient Discharge Instructions ---
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 Please take all medications as directed. Wound care instructions have been provided in the discharge summary. *Please note that the patient is on chronic steroids and has secondary adrenal insufficiency, consider stress doses of steroids in the event of an acute infection or acute illness. *If blood sugar prior to dialysis <120 please give snack before/during dialysis Diet Recommended Diet: Renal Dialysis Additional DIET Information: Mechanical soft, honey thick liquids Activity Activity Self Limited: Yes Acute Coronary Syndrome Inclusion Criteria At DC or during hospital stay patient has or had the following: ACS DIAGNOSIS No Discharge Core Measures Meds if any: Prescribed or Continued at Discharge Meds if any: NOT Prescribed or Continued at Discharge Congestive Heart Failure Inclusion Criteria At DC or during hospital stay patient has or had the following: CHF DIAGNOSIS No Discharge Core Measures Meds if any: Prescribed or Continued at Discharge Meds if any: NOT Prescribed or Continued at Discharge Cerebrovascular accident Inclusion Criteria At DC or during hospital stay patient has or had the following: CVA/TIA Diagnosis No Discharge Core Measures Meds if any: Prescribed or Continued at Discharge Meds if any: NOT Prescribed or Continued at Discharge Venous thromboembolism Inclusion Criteria VTE Diagnosis No VTE Type NONE VTE Confirmed by (Test) NONE Discharge Core Measures - Per Current guidelines, there needs to be overlap - treatment for the first 5 days of Warfarin therapy. - If discharged on Warfarin prior to 5 days of - overlap therapy, the patient will need to be - assessed for post discharge needs including - *Post discharge parental anticoagulation - *Warfarin and/or parental anticoagulation education - *Follow up date to check INR post discharge At least 5 days overlap therapy as Inpatient No Meds if any: Prescribed or Continued at Discharge Note: Overlap Therapy is Warfarin and Anticoagulant Meds if any: NOT Prescribed or Continued at Discharge
--- NOTE | 2016-10-01 21:45 | NUR ---
NURSING NOTE: PT BLOOD SUGAR <50. PT A&OX3, RESPONDING APPROPRIATELY. 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 PT EATING DINNER AND GIVEN APPLESAUCE WATER AND APPLEJUICE. WILL ADMINSTER DEXTROSE AND RECHECK SUGAR IN 1 HOUR. WILL CONTINUE TO MONITOR.
[2016-10-01 22:00] VITALS: BP 132/61
--- NOTE | 2016-10-01 22:45 | NUR ---
NURSING NOTE: PT BLOOD SUGAR 178. PT ATE HALF OF HIS DINNER AMD TOOK ALL HIS MEDS WITH 2 APPLESAUCES. WILL CONTINUE TO MONITOR.
[2016-10-02 05:19] LABS: ABSOLUTE BASOPHIL COUNT 0.1 /CUMM (0.0-0.2); ABSOLUTE EOSINOPHIL COUNT 0.1 /CUMM (0.0-0.7); ABSOLUTE GRANULOCYTE CT 9.3 /CUMM (1.4-6.5); ABSOLUTE LYMPH COUNT 0.7 /CUMM (1.2-3.4); ABSOLUTE MONOCYTE COUNT 0.5 /CUMM (0.10-0.60); BASOPHIL % 0.5 % (0.0-2.0); EOSINOPHIL % 1.2 % (0-5); HEMATOCRIT 30.9 % (42-52); MEAN CORPUSCULAR HGB 29.1 PG (27.0-31.0); MEAN CORPUSCULAR HGB CONC 31.3 G/DL (33.0-37.0); MEAN CORPUSCULAR VOLUME 93.1 FL (80.0-94.0); MEAN PLATELET VOLUME 8.7 FL (7.4-10.4); PLATELET COUNT 135 /CUMM (130-400); RBC DISTRIBUTION WIDTH 22.6 % (11.5-14.5); RED BLOOD CELL CT 3.32 /CUMM (4.70-6.10); WHITE BLOOD CELL COUNT 10.7 /CUMM (4.8-10.8)
[2016-10-02 05:21] LABS: PT 38.4 SEC (9.4-12.5)
[2016-10-02 07:09] VITALS: BP 128/61
--- NOTE | 2016-10-02 07:14 | PN- Housestaff ---
SHABANA HEATH,[facility] 10/02/16 0713: Subjective Follow-up For: 1. Left hand swelling with hematoma on the dorsum of the left hand, TLC on the same side 2. aspiration pneumonia 3. ESRD on dialysis 4. anti-phospholipid syndrome with chrnic DVT, on coumadin 5. Chronic lower extremity ulcers, coccygeal ulcer 6. Generalized weakness Subjective: I saw and examined the patient at bedside today, patient is lying in bed, alert awake and oriented. He did not sleep well last night and he says usually doesn' t. does not report any abdominal pain, chest pain, fever or chills, shortness of breath. Patient denies any further episodes of loose stool. Patient feels the left hand swelling is decreased, also the skin is opened up and the blood collection underlying the skin is drainedfor the most part. Patient also reports itchiness the eyes. Patient overall feels very weak and is concerned how he would gain strength and where he is going to after discharge. Review of Systems Constitutional: Reports: weakness. Denies: chills, fever. EENTM: Reports: visual changes (eye dryness and itchiness). Cardiovascular: Denies: chest pain, palpitations, peripheral edema. Respiratory: Denies: cough, sputum production. Gastrointestinal: Denies: abdominal pain, changes in stool. Genitourinary: Reports: no symptoms. Musculoskeletal: Reports: no symptoms. Skin: Reports: lesions. Neurological/Psychological: Reports: weakness. Hematologic/Endocrine: Reports: no symptoms. Objective Last 24 Hrs of Vital Signs/I&O Vital Signs Date Time Temp Pulse Resp B/P Pulse O2 O2 Flow FiO2 Ox Delivery Rate 10/03 799 92 Nasal 3.0L Cannula 10/02 0709 97.6 108 20 128/61 97 Nasal 3.0L Cannula 10/02 0000 90 Nasal 3.0L Cannula 10/01 2200 96.8 117 20 132/61 90 Nasal 3.0L Cannula 10/01 1600 92 Nasal 3.0L Cannula 10/01 1437 97.9 102 20 128/66 92 Nasal 3.0L Cannula Intake & Output 10/02 1600 10/02 0800 10/02 0000 Intake Total 220 Output Total Balance 220 Intake, Oral 220 Number 2 1 Bowel Movements Patient 66.224 kg 65.998 kg Weight Physical Exam General Appearance: Alert, Oriented X3, Cooperative, No Acute Distress Skin: skin breakdown on the left hand with hematoma underneath. chronic ulcers on the posterior aspect of both lower legs. There is a necrotic eschar from the previous one on the dorsum of the left foot. there is a coccygeal ulcer as well. dressings are changed daily, and there is no purulent discharge. HEENT: Atraumatic, EOMI Neck: No JVD Cardiovascular: Normal S1, Normal S2, No Murmurs, irregularly irregular Lungs: Normal Air Movement, decreased breath sounds bilaterally, more prominent at the bases. No wheezing or rhonchi heard. No crackles. Abdomen: Soft, No Tenderness Neurological: Normal Speech, Normal Tone Extremities: Normal Pulses Current Medications: Current Medications Sig/Kailash Start time Last Medication Dose Route Stop Time Status Admin Acetaminophen 650 MG Q6P PRN 09/24 1400 AC 09/28 PO 2218 Artificial Tears 2 GTT 4 TIMES/DAY 10/02 1045 AC OPH Atorvastatin Calcium 40 MG QPM 09/24 2200 AC 10/01 PO 2222 Calcium Carbonate 500 MG TID 09/24 2200 AC 10/02 PO 0943 Ceftazidime 1,000 MG Q24H 09/24 1615 DC 10/01 IV 2210 Cholestyramine Resin 1 PAC BID 09/27 1000 AC 10/02 PO 0947 Cyanocobalamin 1,000 MCG DAILY 09/25 1000 AC 10/02 PO 0943 Dextrose 25 GM ONCE ONE 10/01 2145 DC 10/01 IV 10/01 2146 2159 Diphenoxylate HCl/ 2.5 MG AC 09/30 1600 AC 10/02 Atropine PO 0943 Epoetin Ludwig 2,000 UNIT TuThSa PRN 09/28 0730 AC IV Epoetin Ludwig 3,000 UNIT TuThSa PRN 09/28 0730 AC IV Ferrous Sulfate 325 MG QPM 09/24 2200 AC 10/01 PO 2222 Guaifenesin 600 MG BID 09/24 2200 AC 10/02 PO 0943 Insulin Aspart 0 AT BEDTIME 09/25 220 AC 09/28 SC 2217 Insulin Aspart 0 TIDAC 09/25 1700 AC 10/02 SC 0942 Lactobacillus 1 CAP WITH MEALS 09/27 08 AC 10/02 Acidophilus PO 0943 Multivitamins 1 TAB DAILY 09/25 1000 AC 10/02 PO 0947 Omeprazole 20 MG DAILY AC 09/25 0700 AC 10/02 PO 0422 Oxycodone/ 1 TAB Q6P PRN 09/25 1515 AC 10/01 Acetaminophen PO 2222 Oxycodone/ 2 TAB Q6P PRN 09/25 1515 AC 10/02 Acetaminophen PO 0942 Prednisone 5 MG DAILY 09/27 1000 AC 10/02 PO 0943 Sevelamer Carbonate 800 MG WM 09/24 1700 AC 10/02 PO 0943 Sodium Chloride 1 SPRAY 4 TIMES/DAY PRN 09/24 1445 AC CARLITOS Vancomycin HCl 750 MG ONCE ONE 10/01 2100 DC 10/01 Dextrose/Water 250 ML IV 10/01 2159 2231 Vancomycin HCl 1,000 MG ONCE ONE 10/01 0930 CAN Dextrose/Water 250 ML IV 10/01 170 Vancomycin HCl See Dose TuThSa PRN 09/28 0900 DC Insts (1) IV Warfarin Sodium 1 MG COUMADIN 1700 ONE 10/01 1700 DC 10/01 PO 10/01 1701 2221 Dose Instructions: (1)Vancomycin HCl: dose based on random Vanco level Last 24 Hrs of Lab/Avtar Results Last 24 Hrs of Labs/Mics: Laboratory Tests 10/02/16 0447: Anion Gap 4 L, Estimated GFR 40 L, BUN/Creatinine Ratio 5.3 L, PT 38.4 H, INR 3.70 H, CBC w Diff NO MAN DIFF REQ, RBC 3.32 L, MCV 93.1, MCH 29.1, RDW 22.6 H, MPV 8.7, Gran % 87.0 H, Lymphocytes % 6.4 L, Monocytes % 4.9, Eosinophils % 1.2, Basophils % 0.5, Absolute Granulocytes 9.3 H, Absolute Lymphocytes 0.7 L, Absolute Monocytes 0.5, Absolute Eosinophils 0.1, Absolute Basophils 0.1, PUBS MCHC 31.3 L Assessment/Plan Assessment: 75 y/o M with PMHx of IDDM, ESRD on HD and PVD who is admitted for severe sepsis and is being treated for aspiration pneumonia. Patient also was found to be hypoglycemic, and hypotensive which are currently resolved. Patient is getting dialyzed on Friday and Friday. Patient is also on Coumadin for antiphospholipid syndrome with chronic DVTs. He also has multiple wounds in the lower extremity from peripheral last very disease, as well as a coccygeal wound. Patient is has not been able to be ambulatory since June 26. Antiphospholipid syndrome INR has further increased to 3.7 today. 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 (10 mg of vitamin K oral was given on Friday to reverse the INR>10) * Will hold on warfarin today and repeat INR in a.m. T2DM Came with hypoglycemia. Blood sugar this morning was 50 refractory to glucose intake. Patient was treated with dexamethazone with the impression of adrenal insufficiency. Now off of dexamethazone. put back on low dose prednisone 5 mg daily for Crohn's disease. * Follow-up serum glucose level, patient had an episode of hypoglycemia after dialysis yeterday as he was not eating for several hours. * Endocrinology following. Appreciate their recs. * Accu-checks and Novolog TIDAC sliding scale. * Continue to hold prior to admission Levemir. ESRD Dialysis on //Fri. * Nephrology following. Appreciate their recs. * Continue Epogen IV with dialysis. * Watch hypokalemia--> Pt has K 4.7 today Left hand hematoma Evidence of prior bleeding under the skin at the prior IV line site on the dorsum of the left hand. Painful and causing discomfort. Possible in the setting of elevated INR. Currently no active bleeding noted, hematoma has not increased in size. INR is 3.7 today. Hematoma opened up during the day and evening yesterday, we will cover the open area of skin with dressing and follow-up with wound care for any recommendations. Swelling has decreased compared to yesterday Doppler ultrasound of the left arm yesterday showed a chronic deep venous thrombosis in the left internal jugular vein with no new DVTs. * Encouraged elevation of the left arm * will monitor INR daily Lower extremity and coccyx wounds There is an unstageable pressure injury on the coccyx, 3x1.5 cm with slough covering the surface. there is a full thickness left inner thigh wound (6x3 cm) as well as a left post leg full thickness wound (30x12 cm). Also there is a left foot dry stable eschar, as well as a left heel stable eschar, also a right posterior leg full thickness wound (3x5 cm). * wound care on board * We are following Recs: 1. cleanse leg and thigh wounds with NS FB hydrogel xeroform and DPD daily. leave heel wounds and foot wounds open to air after daily bedtime swab 2. cleanse coccyx with NS FB hydrocolloid dressing Q3 days and PRN Sepsis 2/2 suspected aspiration pneumonia - resolved Patient has a stayed afebrile, saturating on 3 L per nasal cannula, denies any shortness of breath, lung exam unremarkable. * ID following, appreciated recommendations. DC'd vanc and ceftaz today. Will follow ID recommendations watch for another 24 hours off antibiotics and monitoring for fever. * UC: grew yeast and BC: no growth after 5 days. Acute hypoxemic respiratory failure - resolved * Provide supplemental oxygen to keep SpO2 > 92%. * Continue Mucinex 600 mg PO BID for cough. Hypotension - resolved Blood pressures have improved with IV fluids. Remains hemodynamically stable. * Monitor hemodynamics. * Monitor strict I/Os. * DC'd fluids Renal Dialysis Diet - Ground Diet and Honey Thick Liquids DVT/Prophylaxis: pharmacological Code Status: Do Not Resucitate/Intubat Problem List: 1. ESRD (end stage renal disease) on dialysis 2. Aspiration pneumonia 3. IDDM (insulin dependent diabetes mellitus) Pain Ratin Pain Location: Currently does not report any pain Pain Goal: Pain 4 or less Pain Plan: mild, moderate and severe pain pathways Tomorrow's Labs & Rationales: CBC, BEP, INR Monitor off antibiotics for 24 hours, ESRD on dialysis, antiphospholipid syndrome and DVTs on Coumadin. LAURA HEATH,BENITA 10/02/16 1722: Attending MD Review Statement Attending Statement Attending MD Statement: examined this patient, discuss w/resident/PA/RUBBER FLAP TUBER MACHINE OPERATOR, agreed w/resident/PA/RUBBER FLAP TUBER MACHINE OPERATOR, discussed with family, reviewed EMR data (avail), discussed with nursing, discussed with case mgmt, amended to note Attending Assessment/Plan: The patient was seen and discussed with house staff. Agree with the plan of care as outlined.
[2016-10-02 14:57] VITALS: BP 122/60
--- NOTE | 2016-10-02 16:18 | PN- Diabetes ---
Assessment/Plan Assessment: Mr. Marvin is a 76-year-old gentleman with past medical history of DVT on Coumadin therapy, hypertension, diabetes, CKD stage V currently on hemodialysis, peripheral vascular disease, left lower extremity necrotizing nonhealing ulcers, history of cellulitis with Pseudomonas and Crohn's disease status post bowel resection and on chronic prednisone therapy, multiple admissions over past 2-3 months, presented with fever, changes of mental status, hypotension and hypoglycemia. He probably has had aspiration pneumonia. He was admitted to ICU for sepsis. Clinically he has been better. Stress dose of steroid was discontinued. He was put back on his usual steroid-- prednisone 5 mg daily. With regards to DM, he is on Novolog coverage before meals and Novolog coverage at bedtime. The bedtime coverage was adjusted-- patient will receive small dose of insulin only when FSG is > 300. His FSG was 269, 351, 50, 178, 126 and 226. Plan: 1. adjusted his Novolog coverage before meals-- detail see the inpatient DM order; 2. continue the current Novolog covearge at bedtime; 3. monitor FSGs. will follow. Inpatient Diabetes Orders Before Each Meal: Bolus Insulin: Novolog < 80 mg/dl: no coverage 80-100 mg/dl: 2 units 101-120 mg/dl: 2 units 121-150 mg/dl: 2 units 151-200 mg/dl: 3 units 201-250 mg/dl: 4 units 251-300 mg/dl: 5 units 301-350 mg/dl: 6 units 351-400 mg/dl: 7 units > 400 mg/dl: 8 units Subjective Subjective: He feels well. But his glucose level was down to 50 last night. Objective Last 24 Hrs of Vital Signs/I&O Vital Signs Date Time Temp Pulse Resp B/P Pulse O2 O2 Flow FiO2 Ox Delivery Rate 10/02 1457 98.8 91 18 122/60 93 Nasal 3.0L Cannula 10/02 0800 92 Nasal 3.0L Cannula 10/02 0709 97.6 108 20 128/61 97 Nasal 3.0L Cannula 10/02 0000 90 Nasal 3.0L Cannula 10/01 2200 96.8 117 20 132/61 90 Nasal 3.0L Cannula Intake & Output 10/02 1600 10/02 0800 10/02 0000 Intake Total 220 Output Total Balance 220 Intake, Oral 220 Number 2 1 Bowel Movements Patient 146 lb 146 lb Weight Findings Pertinent Lab/Avtar Results: Laboratory Tests 10/02 0447 Chemistry Sodium (137 - 145 mmol/L) 136 L Potassium (3.5 - 5.1 mmol/L) 4.7 Chloride (98 - 107 mmol/L) 104 Carbon Dioxide (22 - 30 mmol/L) 28 Anion Gap (5 - 16) 4 L BUN (9 - 20 mg/dL) 9 Creatinine (0.7 - 1.2 mg/dL) 1.7 H Estimated GFR (>60 ml/min) 40 L BUN/Creatinine Ratio (7 - 25 %) 5.3 L Coagulation PT (9.4 - 12.5 SEC) 38.4 H INR (0.90 - 1.17) 3.70 H Hematology CBC w Diff NO MAN DIFF REQ WBC (4.8 - 10.8 /CUMM) 10.7 RBC (4.70 - 6.10 /CUMM) 3.32 L Hgb (14.0 - 18.0 G/DL) 9.7 L Hct (42 - 52 %) 30.9 L MCV (80.0 - 94.0 FL) 93.1 MCH (27.0 - 31.0 PG) 29.1 RDW (11.5 - 14.5 %) 22.6 H Plt Count (130 - 400 /CUMM) 135 MPV (7.4 - 10.4 FL) 8.7 Gran % (42.2 - 75.2 %) 87.0 H Lymphocytes % (20.5 - 51.1 %) 6.4 L Monocytes % (1.7 - 9.3 %) 4.9 Eosinophils % (0 - 5 %) 1.2 Basophils % (0.0 - 2.0 %) 0.5 Absolute Granulocytes (1.4 - 6.5 /CUMM) 9.3 H Absolute Lymphocytes (1.2 - 3.4 /CUMM) 0.7 L Absolute Monocytes (0.10 - 0.60 /CUMM) 0.5 Absolute Eosinophils (0.0 - 0.7 /CUMM) 0.1 Absolute Basophils (0.0 - 0.2 /CUMM) 0.1 PUBS MCHC (33.0 - 37.0 G/DL) 31.3 L
[2016-10-02] MEDS ORDERED: CHOLESTYRAMINE L4 GM PO (19:04)
[2016-10-02] MEDS ORDERED: NOVOLOG100 UNIT/2 SC (19:21)
[2016-10-02 22:30] VITALS: BP 146/78
--- NOTE | 2016-10-03 07:00 | PN- Housestaff ---
SHABANA HEATH,[facility] 10/03/16 0700: Subjective Follow-up For: 1. Left hand swelling with hematoma on the dorsum of the left hand, TLC on the same side 2. aspiration pneumonia 3. ESRD on dialysis 4. anti-phospholipid syndrome with chrnic DVT, on coumadin 5. Chronic lower extremity ulcers, coccygeal ulcer 6. Generalized weakness Subjective: I saw and examined the patient at bedside today, patient is lying in bed, alert awake and oriented. He reports pain in the nose in the eyes. Denies any fever, reports still having cough with phlegm, denies abdominal pain or diarrhea. His left hand is wrapped with Kerlix. Currently does not report any pain. He wishes that he would go home instead of the rehabilitation. Patient has been doing exercise with the hands using sponges that were given by the OT. Review of Systems Constitutional: Reports: weakness. Denies: chills, fever. EENTM: Reports: eye pain, eye drainage, nasal pain. Cardiovascular: Denies: chest pain, palpitations. Respiratory: Denies: cough, short of breath. Gastrointestinal: Denies: abdominal pain, changes in stool. Genitourinary: Reports: no symptoms. Musculoskeletal: Reports: no symptoms. Skin: Reports: lesions. Neurological/Psychological: Reports: no symptoms. Hematologic/Endocrine: Reports: no symptoms. Objective Last 24 Hrs of Vital Signs/I&O Vital Signs Date Time Temp Pulse Resp B/P Pulse O2 O2 Flow FiO2 Ox Delivery Rate 10/03 0734 97.9 97 20 140/70 97 10/03 0000 Nasal 3.0L Cannula 10/02 2230 98.9 110 18 146/78 98 10/02 1702 Nasal 3.0L Cannula 10/02 1600 Nasal 3.0L Cannula 10/02 1457 98.8 91 18 122/60 93 Nasal 3.0L Cannula Intake & Output 10/03 1600 10/03 0800 10/03 0000 Intake Total 100 200 Output Total Balance 100 200 Intake, Oral 100 200 Number 3 Bowel Movements Patient 65.771 kg Weight Physical Exam General Appearance: Alert, Oriented X3, Cooperative, No Acute Distress Skin: chronic wounds on the lower legs and left thighs as well as the coccyx. Hematoma and swelling of the left hand with an open area., christine cath on the right chest, no erythema tenderness around it. There is triple-lumen catheter on the left with no bleeding erythema and tenderness around it. HEENT: Atraumatic Neck: Supple Cardiovascular: Normal S1, Normal S2, irregularly irregular Lungs: Normal Air Movement Abdomen: Soft, No Tenderness Neurological: Normal Speech, Normal Tone Extremities: Normal Pulses Vascular: Pulses Symmetrical Current Medications: Current Medications Sig/Kailash Start time Last Medication Dose Route Stop Time Status Admin Acetaminophen 650 MG Q6P PRN 09/24 1400 AC 09/28 PO 2218 Artificial Tears 2 GTT 4 TIMES/DAY 10/02 1045 AC 10/02 OPH 2116 Atorvastatin Calcium 40 MG QPM 09/24 2200 AC 10/02 PO 2116 Calcium Carbonate 500 MG TID 09/24 2200 AC 10/02 PO 2116 Cholestyramine Resin 1 PAC BID 09/27 1000 AC 10/02 PO 0947 Cyanocobalamin 1,000 MCG DAILY 09/25 1000 AC 10/02 PO 0943 Diphenoxylate HCl/ 2.5 MG AC 09/30 1600 AC 10/03 Atropine PO 0600 Epoetin Ludwig 2,000 UNIT TuThSa PRN 09/28 0730 AC IV Epoetin Ludwig 3,000 UNIT TuThSa PRN 09/28 0730 AC IV Ferrous Sulfate 325 MG QPM 09/24 2200 AC 10/02 PO 2116 Guaifenesin 600 MG BID 09/24 2200 AC 10/02 PO 2116 Insulin Aspart 0 AT BEDTIME 09/25 2200 AC 09/28 SC 2217 Insulin Aspart 0 TIDAC 09/25 1700 AC 10/02 SC 1658 Lactobacillus 1 CAP WITH MEALS 09/27 0800 AC 10/02 Acidophilus PO 1658 Multivitamins 1 TAB DAILY 09/25 1000 AC 10/02 PO 0947 Ofloxacin 1 GTT Q4 10/03 0745 AC OPH Omeprazole 20 MG DAILY AC 09/25 0700 AC 10/03 PO 0607 Oxycodone/ 1 TAB Q6P PRN 09/25 1515 AC 10/01 Acetaminophen PO 2222 Oxycodone/ 2 TAB Q6P PRN 09/25 1515 AC 10/03 Acetaminophen PO 0604 Patient Medication 1 ED .STK-MED ONE 10/02 1349 DC Teaching ED 10/02 1350 Prednisone 5 MG DAILY 09/27 1000 AC 10/02 PO 0943 Sevelamer Carbonate 800 MG WM 09/24 1700 AC 10/02 PO 1658 Sodium Chloride 1 SPRAY 4 TIMES/DAY PRN 09/24 1445 AC CARLITOS Assessment/Plan Assessment: 75 y/o M with PMHx of IDDM, ESRD on HD and PVD who is admitted for severe sepsis and is being treated for aspiration pneumonia. Patient also was found to be hypoglycemic, and hypotensive which are currently resolved. Patient is getting dialyzed on Friday and Friday. Patient is also on Coumadin for antiphospholipid syndrome with chronic DVTs. He also has multiple wounds in the lower extremity from peripheral last very disease, as well as a coccygeal wound. Patient is has not been able to be ambulatory since June 26. triple lumen catheter on he left side of the chest was removed at 1:45 pm after sterilization and removing sutures. I applied pressure for 7 minutes, there was no bleeding at th site. Patient's vital signs have been stable today, no fever, saturating on 3L. Will do further incentive spirometry when he goes to the rehab facility. Repeat CXR did not show any pneumonia or signs of volume overload, this was done as the patient had become slightly drowsy after dialysis this after noon. Antiphospholipid syndrome INR has further increased to 4.69 today. 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 (10 mg of vitamin K oral was given on Friday to reverse the INR>10) * Will hold on warfarin today * patient will continue INR monitoring in the rehab facility and be dosed accordingly T2DM Came with hypoglycemia. Blood sugar this morning was 50 refractory to glucose intake. Patient was treated with dexamethazone with the impression of adrenal insufficiency. Now off of dexamethazone. put back on low dose prednisone 5 mg daily for Crohn's disease. * Follow-up serum glucose level, patient had an episode of hypoglycemia after dialysis on 10/01/16 as he was not eating for several hours. he received snacks during dialysis today without any further episodes of hypoglycemia, instructions have been put in the W-10 to give snacks while/before dialysis if BS<120 before dialysis. also that in the event of acute illness consider stress dose of steroids as the patient has secondary renal insufficiency 2/2 chronic steroid use. * Endocrinology following. Appreciate their recs. * Accu-checks and Novolog TIDAC sliding scale. * Discontinued Levemir. * Patient had dialysis today, had snack while on dialysis and lunch afterwards. ESRD Dialysis on //Fri. * Nephrology following. Appreciate their recs. * Continue Epogen IV with dialysis. * Watch hypokalemia--> Pt has K 4.7 today Left hand hematoma Evidence of prior bleeding under the skin at the prior IV line site on the dorsum of the left hand. Painful and causing discomfort. Possible in the setting of elevated INR. Currently no active bleeding noted, hematoma has not increased in size. Hematoma opened up yesterday, we will cover the open area of skin with dressing and follow-up with wound care for any recommendations. Swelling has decreased compared to yesterday Doppler ultrasound of the left arm yesterday showed a chronic deep venous thrombosis in the left internal jugular vein with no new DVTs. * Encouraged elevation of the left arm * will monitor INR daily Lower extremity and coccyx wounds There is an unstageable pressure injury on the coccyx, 3x1.5 cm with slough covering the surface. there is a full thickness left inner thigh wound (6x3 cm) as well as a left post leg full thickness wound (30x12 cm). Also there is a left foot dry stable eschar, as well as a left heel stable eschar, also a right posterior leg full thickness wound (3x5 cm). * wound care on board * We are following Recs: 1. cleanse leg and thigh wounds with NS FB hydrogel xeroform and DPD daily. leave heel wounds and foot wounds open to air after daily bedtime swab 2. cleanse coccyx with NS FB hydrocolloid dressing Q3 days and PRN Sepsis 2/2 suspected aspiration pneumonia - resolved Patient has a stayed afebrile, saturating on 3 L per nasal cannula, denies any shortness of breath, lung exam unremarkable. * ID following, appreciated recommendations. DC'd vanc and ceftaz today. Will follow ID recommendations watch for another 24 hours off antibiotics and monitoring for fever. * UC: grew yeast and BC: no growth after 5 days. Acute hypoxemic respiratory failure - resolved * Provide supplemental oxygen to keep SpO2 > 92%. * Continue Mucinex 600 mg PO BID for cough. Hypotension - resolved Blood pressures have improved with IV fluids. Remains hemodynamically stable. * Monitor hemodynamics. * Monitor strict I/Os. * DC'd fluids Renal Dialysis Diet - Ground Diet and Honey Thick Liquids DVT/Prophylaxis: pharmacological Code Status: Do Not Resuscitate/Intubat Problem List: 1. ESRD (end stage renal disease) on dialysis 2. Aspiration pneumonia 3. Peripheral vascular disease 4. Type 2 diabetes mellitus 5. Antiphospholipid antibody syndrome 6. Crohn disease 7. Chronic deep vein thrombosis (DVT) Pain Ratin Pain Location: Currently no pain, patient has painful ulcers on the legs. Pain Goal: Pain 4 or less Pain Plan: Mild, moderate and severe pain pathways Tomorrow's Labs & Rationales: None Consulting Request: Consulting Specialty: Infectious Disease BENITA SANCHEZ MD 10/03/16 2202: Attending MD Review Statement Attending Statement Attending MD Statement: examined this patient, discuss w/resident/PA/CONTOUR GRINDER, agreed w/resident/PA/CONTOUR GRINDER, discussed with family, reviewed EMR data (avail), discussed with nursing, discussed with case mgmt, reviewed images, amended to note Attending Assessment/Plan: The patient was seen and discussed with house staff, family, nursing and CRM. OK to discharge to SNF today. Will go on oxygen and with incentive spirometry. Will monitor sugars closely in SNF.
[2016-10-03 07:34] VITALS: BP 140/70
[2016-10-03] MEDS ORDERED: OFLOXACIN5 M1 OT (07:57)
--- NOTE | 2016-10-03 08:43 | PN- Diabetes ---
Assessment/Plan Assessment: Mr. Marvin is a 76-year-old gentleman with past medical history of DVT on Coumadin therapy, hypertension, diabetes, CKD stage V currently on hemodialysis, peripheral vascular disease, left lower extremity necrotizing nonhealing ulcers, history of cellulitis with Pseudomonas and Crohn's disease status post bowel resection and on chronic prednisone therapy, multiple admissions over past 2-3 months, presented with fever, changes of mental status, hypotension and hypoglycemia. He probably has had aspiration pneumonia. He was admitted to ICU for sepsis. Clinically he has been better. Stress dose of steroid was discontinued. He was put back on his usual steroid-- prednisone 5 mg daily. With regards to DM, he is on Novolog coverage before meals and Novolog coverage at bedtime. The bedtime coverage was adjusted-- patient will receive small dose of insulin only when FSG is > 300. His FSG was 126, 226, 224, 134 and 73. Patient is receiving HD. I have recommended giving patient some snack since his FSG was 73 this morning. Plan: Patient is going to be discharged to rehab today. continue the current Novolog coverage before meals; continue the current Novolog coverage at bedtime ( coverage starts when FSG is > 300); no basal insulin; please give patient snack if patient skips meal for HD and FSG is < 120 before HD; consider stress dose steroid if patient is sick or has acute infection. Subjective Subjective: He feels well. Objective Last 24 Hrs of Vital Signs/I&O Vital Signs Date Time Temp Pulse Resp B/P Pulse O2 O2 Flow FiO2 Ox Delivery Rate 10/03 0734 97.9 97 20 140/70 97 10/03 0000 Nasal 3.0L Cannula 10/02 2230 98.9 110 18 146/78 98 10/02 1702 Nasal 3.0L Cannula 10/02 1600 Nasal 3.0L Cannula 10/02 1457 98.8 91 18 122/60 93 Nasal 3.0L Cannula Intake & Output 10/03 1600 10/03 0800 10/03 0000 Intake Total 100 200 Output Total Balance 100 200 Intake, Oral 100 200 Number 3 Bowel Movements Patient 145 lb Weight
[2016-10-03] MEDS ORDERED: ARTIFICIAL TEAR15 M4 OPH (09:16)
[2016-10-03 09:39] LABS: ABSOLUTE BASOPHIL COUNT 0 /CUMM (0.0-0.2); ABSOLUTE EOSINOPHIL COUNT 0.1 /CUMM (0.0-0.7); ABSOLUTE GRANULOCYTE CT 5.5 /CUMM (1.4-6.5); ABSOLUTE LYMPH COUNT 1.5 /CUMM (1.2-3.4); BASOPHIL % 0.5 % (0.0-2.0); EOSINOPHIL % 1.8 % (0-5); GRANULOCYTE % 67.4 % (42.2-75.2); HEMATOCRIT 30.5 % (42-52); MEAN CORPUSCULAR HGB 28.7 PG (27.0-31.0); MEAN CORPUSCULAR HGB CONC 30.9 G/DL (33.0-37.0); MEAN PLATELET VOLUME 9.2 FL (7.4-10.4); PLATELET COUNT 176 /CUMM (130-400); RBC DISTRIBUTION WIDTH 22.6 % (11.5-14.5); RED BLOOD CELL CT 3.28 /CUMM (4.70-6.10); WHITE BLOOD CELL COUNT 8.1 /CUMM (4.8-10.8)
--- NOTE | 2016-10-03 12:02 | PN- Nephrology ---
Assessment/Plan Assessment: ESRD - Dialysis today. To cont on TTS schedule. Aspiration PNA - Clinically improved s/p course of abx. Hopefully will not have issues with aspirating with dietary modifications. Anemia - On Epogen. Hypokalemia - Probably improved with nutritional status. Will switch back to 2K bath (his outpatient script) on discharge to his home dialysis unit. LUE Edema - Known thrombus. Has additional line in for abx which can come out. Can monitor as outpatient. Suggestion: -Dialysis today -To continue on //Fri dialysis schedule -Cont Epogen with dialysis -Modification of diet and re-evaluation based on MBS -No further K supplementation -Remove TLC line if no longer needed -Monitor LUE swelling -Will switch to 2K bath (this is his outpatient script) Please call [phone] with ?'s Subjective Subjective: Pt seen and examined on dialysis Off abx C diff neg Chronic thrombus of L IJ on U/S Objective Vital Signs and I&Os Vital Signs Date Time Temp Pulse Resp B/P Pulse O2 O2 Flow FiO2 Ox Delivery Rate 10/03 0734 97.9 97 20 140/70 97 10/03 0000 Nasal 3.0L Cannula 10/02 2230 98.9 110 18 146/78 98 10/02 1702 Nasal 3.0L Cannula 10/02 1600 Nasal 3.0L Cannula 10/02 1457 98.8 91 18 122/60 93 Nasal 3.0L Cannula Intake & Output 10/03 1600 10/03 0400 10/02 1600 10/02 0400 10/01 1600 10/01 0400 Intake Total 100 200 600 220 720 120 Output Total 4 Balance 100 200 600 220 720 116 Intake, Oral 100 200 600 220 720 120 Number 3 3 1 8 2 Bowel Movements Output, Stool 4 Patient 145 lb 146 lb 146 lb 146 lb Weight Physical Exam: Gen - OK appearing HEENT - supple CV - RRR Chest - clear anteriorly Abd - soft, nontender Ext - legs dressed; dorsum of L hand wrapped; +edema in L>R UE Neuro - AOX3 Access - L IJ PETEY cath Current Medications: Current Medications Sig/Kailash Start time Last Medication Dose Route Stop Time Status Admin Acetaminophen 650 MG Q6P PRN 09/24 1400 AC 09/28 PO 2218 Artificial Tears 2 GTT 4 TIMES/DAY 10/02 1045 AC 10/03 OPH 1120 Atorvastatin Calcium 40 MG QPM 09/24 2200 AC 10/02 PO 2116 Calcium Carbonate 500 MG TID 09/24 2200 AC 10/03 PO 1117 Cholestyramine Resin 1 PAC BID 09/27 1000 AC 10/03 PO 1119 Cyanocobalamin 1,000 MCG DAILY 09/25 1000 AC 10/03 PO 1117 Diphenoxylate HCl/ 2.5 MG AC 09/30 1600 AC 10/03 Atropine PO 1117 Epoetin Ludwig 2,000 UNIT TuThSa PRN 09/28 0730 AC IV Epoetin Ludwig 3,000 UNIT TuThSa PRN 09/28 0730 AC IV Ferrous Sulfate 325 MG QPM 09/24 2200 AC 10/02 PO 2116 Guaifenesin 600 MG BID 09/24 2200 AC 10/03 PO 1117 Insulin Aspart 0 AT BEDTIME 09/25 2200 AC 09/28 SC 2217 Insulin Aspart 0 TIDAC 09/25 1700 AC 10/02 SC 1658 Lactobacillus 1 CAP WITH MEALS 09/27 08 AC 10/03 Acidophilus PO 1118 Magnesium Oxide 400 MG ONE ONE 10/03 1145 DC PO 10/03 1146 Multivitamins 1 TAB DAILY 09/25 1000 AC 10/03 PO 1117 Ofloxacin 1 GTT Q4 10/03 0745 AC 10/03 OPH 1121 Omeprazole 20 MG DAILY AC 09/25 0700 AC 10/03 PO 0607 Oxycodone/ 1 TAB Q6P PRN 09/25 1515 AC 10/01 Acetaminophen PO 2222 Oxycodone/ 2 TAB Q6P PRN 09/25 1515 AC 10/03 Acetaminophen PO 0604 Patient Medication 1 ED .STK-MED ONE 10/[address] Teaching ED 10/02 1350 Prednisone 5 MG DAILY 09/27 1000 AC 10/03 PO 1117 Sevelamer Carbonate 800 MG WM 09/24 1700 AC 10/02 PO 1658 Sodium Chloride 1 SPRAY 4 TIMES/DAY PRN 09/24 1445 AC 10/03 CARLITOS 1119 Results Pertinent Lab Results: Laboratory Tests 10/03 10/02 0740 0447 Chemistry Sodium (137 - 145 mmol/L) 136 L 136 L Potassium (3.5 - 5.1 mmol/L) 4.7 4.7 Chloride (98 - 107 mmol/L) 107 104 Carbon Dioxide (22 - 30 mmol/L) 27 28 Anion Gap (5 - 16) 2 L 4 L BUN (9 - 20 mg/dL) 15 9 Creatinine (0.7 - 1.2 mg/dL) 2.4 H 1.7 H Estimated GFR (>60 ml/min) 27 L 40 L BUN/Creatinine Ratio (7 - 25 %) 6.3 L 5.3 L Glucose (65 - 99 mg/dL) 59 L Calcium (8.4 - 10.2 mg/dL) 7.6 L Phosphorus (2.5 - 4.5 mg/dL) 2.1 L 1.6 L Magnesium (1.6 - 2.3 mg/dL) 1.5 L 1.5 L Albumin (3.5 - 5.0 g/dL) 1.8 L Coagulation PT (9.4 - 12.5 SEC) 38.4 H INR (0.90 - 1.17) 3.70 H Hematology CBC w Diff NO MAN DIFF REQ NO MAN DIFF REQ WBC (4.8 - 10.8 /CUMM) 8.1 10.7 RBC (4.70 - 6.10 /CUMM) 3.28 L 3.32 L Hgb (14.0 - 18.0 G/DL) 9.4 L 9.7 L Hct (42 - 52 %) 30.5 L 30.9 L MCV (80.0 - 94.0 FL) 93.0 93.1 MCH (27.0 - 31.0 PG) 28.7 29.1 RDW (11.5 - 14.5 %) 22.6 H 22.6 H Plt Count (130 - 400 /CUMM) 176 135 MPV (7.4 - 10.4 FL) 9.2 8.7 Gran % (42.2 - 75.2 %) 67.4 87.0 H Lymphocytes % (20.5 - 51.1 %) 18.0 L 6.4 L Monocytes % (1.7 - 9.3 %) 12.3 H 4.9 Eosinophils % (0 - 5 %) 1.8 1.2 Basophils % (0.0 - 2.0 %) 0.5 0.5 Absolute Granulocytes (1.4 - 6.5 /CUMM) 5.5 9.3 H Absolute Lymphocytes (1.2 - 3.4 /CUMM) 1.5 0.7 L Absolute Monocytes (0.10 - 0.60 /CUMM) 1.0 H 0.5 Absolute Eosinophils (0.0 - 0.7 /CUMM) 0.1 0.1 Absolute Basophils (0.0 - 0.2 /CUMM) 0 0.1 PUBS MCHC (33.0 - 37.0 G/DL) 30.9 L 31.3 L 03/07 03/07 0530 0530 Chemistry Sodium (137 - 145 mmol/L) 136 L Potassium (3.5 - 5.1 mmol/L) 5.3 H Chloride (98 - 107 mmol/L) 109 H Carbon Dioxide (22 - 30 mmol/L) 23 Anion Gap (5 - 16) 5 BUN (9 - 20 mg/dL) 17 Creatinine (0.7 - 1.2 mg/dL) 2.5 H Estimated GFR (>60 ml/min) 25 L BUN/Creatinine Ratio (7 - 25 %) 6.8 L Prealbumin (17.6 - 36.0 mg/dL) 10.3 L Coagulation PT (9.4 - 12.5 SEC) 22.7 H INR (0.90 - 1.17) 2.18 H Hematology CBC w Diff NO MAN DIFF REQ WBC (4.8 - 10.8 /CUMM) 11.5 H RBC (4.70 - 6.10 /CUMM) 3.23 L Hgb (14.0 - 18.0 G/DL) 9.5 L Hct (42 - 52 %) 30.3 L MCV (80.0 - 94.0 FL) 94.1 H MCH (27.0 - 31.0 PG) 29.5 RDW (11.5 - 14.5 %) 22.3 H Plt Count (130 - 400 /CUMM) 137 MPV (7.4 - 10.4 FL) 8.9 Gran % (42.2 - 75.2 %) 80.2 H Lymphocytes % (20.5 - 51.1 %) 9.2 L Monocytes % (1.7 - 9.3 %) 9.1 Eosinophils % (0 - 5 %) 1.5 Basophils % (0.0 - 2.0 %) 0 L Absolute Granulocytes (1.4 - 6.5 /CUMM) 9.2 H Absolute Lymphocytes (1.2 - 3.4 /CUMM) 1.1 L Absolute Monocytes (0.10 - 0.60 /CUMM) 1.0 H Absolute Eosinophils (0.0 - 0.7 /CUMM) 0.2 Absolute Basophils (0.0 - 0.2 /CUMM) 0 PUBS MCHC (33.0 - 37.0 G/DL) 31.4 L Toxicology Random Vancomycin (ug/ml) Cancelled 13.5 Imaging/Other Studies: EXAM TYPE: US - US-UNILATERAL VENOUS DOPPLER EXAMINATION: DUPLEX VENOUS ULTRASOUND OF THE left UPPER EXTREMITY. CLINICAL HISTORY: Left upper extremity swelling. History of DVT. COMPARISON: Venous mapping study 08/08/2016 TECHNIQUE: Grayscale, color and Doppler ultrasound of the deep veins of the left upper extremity were performed. Examination limited secondary to extensive bandages overlying the subclavian region. FINDINGS: Again noted is echogenic filling defects within the left internal jugular vein, consistent with known chronic thrombus. The subclavian vein could not be evaluated secondary to extensive overlying bandages from existing central line. The left axillary vein demonstrates normal color Doppler flow and compressibility suggesting patency. The left brachial and basilic veins are easily compressible and demonstrate normal color Doppler flow suggesting patency. The left cephalic vein is easily compressible suggesting patency. Left radial and ulnar veins demonstrate compressibility and color Doppler flow suggesting patency. IMPRESSION: Persistent echogenic filling defects within the left internal jugular vein, most consistent with known chronic thrombus. Evaluation of the left subclavian vein was limited secondary to extensive overlying bandages. The remainder of the deep veins of the left upper extremity are grossly unremarkable.
[2016-10-03 12:45] VITALS: BP 110/77
[2016-10-03] MEDS ORDERED: DIPHENOXYLATE-1 EACH PO (14:03)
[2016-10-03 14:27] LABS: PT 48.5 SEC (9.4-12.5)
[2016-10-03 14:32] VITALS: BP 100/63
--- NOTE | 2016-10-03 15:31 | RADIOLOGY REPORT ---
EXAMINATION: XR PORTABLE CHEST CLINICAL INFORMATION: Desaturation. Increased oxygen demands. Mucus plugging versus aspiration. COMPARISON: Chest x-ray 09/24/[address] chest 09/24/2016 TECHNIQUE: Portable AP portable view of the chest was obtained. 3:05 PM FINDINGS: Right IJ central port catheter tip in superior vena cava unchanged position since prior exam. The previously seen left subclavian line is no longer present. Streaky bibasilar airspace disease at both lung bases still present without silhouetting of the diaphragms. No dense consolidation. No large pleural effusion. No pulmonary vascular congestion. IMPRESSION: Streaky opacities at lung bases of subsegmental atelectasis. No dense consolidation or pleural effusion.
[2016-10-03 16:20] VITALS: BP 100/63
[2016-10-03 19:17] VITALS: BP 128/78
--- NOTE | 2016-10-03 22:37 | Event Note ---
Event Note Event Note: At 7:15 pm I was told by the nursing staff that the patient had 300 ml of cloudy urine. Patient reported pain while urinating. denied fever chills, abdominal pain. Patient has had small amounts of urine during this hospital stay which appeared cloudy as well and yeast grew in the culture. Vital signs: T 98.8, W[place] 97, RR 20, BP 128/78, SO2 98% on 3L NC Patient does not appear in distress, is alert and oriented. We sent urine for analysis and for culture. We will follow up with the results. Patient is stable to go to the rehabilitation facility.
== END 2016-10-03 19:20 | DRG 871 ==
LOC: ENRESERVDT → ENRESERVTM → CANRESERV → ERH 10:18 → CRI 13:17 → ERH 13:17 → ERHI 13:17 → 2NB 13:17 → ENPENDDIS 13:17 → CRI 20:36 → ERHI 20:39 → CRI 21:40 → 2NB 09-25 22:46
PROVIDERS: Dermatology; Internal Medicine; Internal Medicine Nephrology; Ophthalmology; Physician Assistant Surgical; Student in an Organized Health Care Education/Training Program; ADMIT Internal Medicine
PROC: 5A1D60Z (ICD-10-PCS; principal; 2016-09-25)
DX: A41.9 Sepsis, unspecified organism (principal); J69.0 Pneumonitis due to inhalation of food and vomit; J96.01 Acute respiratory failure with hypoxia; E46 Unspecified protein-calorie malnutrition; D68.61 Antiphospholipid syndrome; I12.0 Hypertensive chronic kidney disease with stage 5 chronic kidney disease or end stage renal disease; N18.6 End stage renal disease; K50.90 Crohn's disease, unspecified, without complications; L97.929 Non-pressure chronic ulcer of unspecified part of left lower leg with unspecified severity; L97.919 Non-pressure chronic ulcer of unspecified part of right lower leg with unspecified severity; I82.702 Chronic embolism and thrombosis of unspecified veins of left upper extremity; L89.150 Pressure ulcer of sacral region, unstageable; E11.22 Type 2 diabetes mellitus with diabetic chronic kidney disease; R65.20 Severe sepsis without septic shock; Z99.2 Dependence on renal dialysis; Z79.4 Long term (current) use of insulin; E11.649 Type 2 diabetes mellitus with hypoglycemia without coma; I73.9 Peripheral vascular disease, unspecified; I48.91 Unspecified atrial fibrillation; Z79.01 Long term (current) use of anticoagulants; L98.499 Non-pressure chronic ulcer of skin of other sites with unspecified severity; Z68.20 Body mass index [BMI] 20.0-20.9, adult; R19.7 Diarrhea, unspecified; D63.1 Anemia in chronic kidney disease; Z66 Do not resuscitate
CPT/HCPCS: 2NBP; CCU; 36415; 74176; 74230; 81001; 82436; 87040; 87045; 87070; 87071; 87086; 87088; 93005; 93010; 96365; 96375; 97110-GO; 97166-GO; 99291; J0131; J0696; J0713; J0885; J1720; J1815; J3370; J7060; J7512

== ENCOUNTER 2016-10-07 22:11 | Inpatient (IN) | payer OTHER, MEDICARE ==
[~2016-10-07] VITALS: Ht 175.3 cm; Wt 70.1 kg
[~2016-10-07 22:11] MED LIST changes: +ARTIFICIAL TEAR15 M4 OPH; +CHOLESTYRAMINE L4 GM PO; +DIPHENOXYLATE-1 EACH PO; +OFLOXACIN5 M1 OT
--- NOTE | 2016-10-07 22:29 | ED GI/GU/ABDOMINAL COMPLAINT ---
History of Present Illness General Chief Complaint: Abdominal Pain/Flank Pain Stated Complaint: BIBA AND PAIN Source: patient, family, old records, EMS Exam Limitations: unable to give history Vital Signs & Intake/Output Vital Signs & Intake/Output Vital Signs Date Time Temp Pulse Resp B/P Pulse O2 O2 Flow FiO2 Ox Delivery Rate 10/08 0514 Nasal 3.0L Cannula 10/08 0409 97 22 83/52 Nasal 3.0L Cannula 10/08 0355 110 22 87/57 91 Nasal 3.0L Cannula 10/08 0320 95 22 62/46 90 Room Air 10/07 2339 96 Room Air 10/07 2320 98.2 77 20 123/55 95 Room Air ED Intake and Output 10/08 0000 10/07 1200 Intake Total Output Total Balance Patient 200 lb Weight Allergies Coded Allergies: Sulfa (Sulfonamide Antibiotics) (Mild, HIVES 06/15/16) Reconcile Medications Aspirin (Ecotrin*) 81 MG TABLET.DR 1 TAB PO QPM HEART HEALTH (Reported) Reason to Stop at ADM: high INR, risk for bleeding Atorvastatin Calcium 40 MG TABLET 1 TAB PO QPM CHOLESTEROL (Reported) Carvedilol (Coreg) 3.125 MG TABLET 6.25 MG PO BID high heart rate Reason to Stop at ADM: hypotensive Cholestyramine/Aspartame (Cholestyramine Light Packet) 4 GRAM POWD.PACK 1 PAC PO BID Malabsorption Ferrous Sulfate 325 MG (65 MG IRON) TABLET 1 TAB PO QPM SUPPLEMENT (Reported) Guaifenesin (Mucinex) 600 MG TAB.ER.12H 1 TAB PO BID cONGESTION Insulin Aspart (Novolog) 100 UNIT/ML VIAL 0 UNITS SC TIDAC Diabetes BEFORE MEALS Blood Insulin Sugar Units <80 Intiate hypoglycemia 80-150 2 151-200 3 201-250 4 251-300 5 301-350 6 351-400 7 >400 8 and Call Doctor AT BEDTIME Blood Insulin Sugar Units <80 Intiate hypoglycemia 81-150 0 151-200 0 201-250 0 251-300 0 301-350 2 351-400 2 >400 3 and Call Doctor Ofloxacin 0.3 % DROPS 1 GTT OT Q6 conjunctivitis Omeprazole 20 MG CAPSULE. 1 CAP PO DAILY GI (Reported) Prednisone 5 MG TABLET 1 TAB PO DAILY Crohns disease Sevelamer Carbonate (Renvela) 800 MG TABLET 1 TAB PO TIDWM KIDNEYS (Reported) RESTART WHEN PHOS LEVEL >3.5 Sodium Chloride (Saline Nasal Acton) 0.65 % SPRAY 1 SPRAY NASB 4 TIMES/DAY PRN dRY NOSE Warfarin Sodium (Coumadin) 1 MG TABLET 1 TAB PO Q48 BLOOD THINNER (Reported) Reason to Stop at ADM:supratherapeutic INR. Please monitor his INR regularly in the setting of multiple fluctations Triage Nurses Notes Reviewed? yes Onset: Abrupt Duration: day(s): (2) Timing: multiple episodes today Quality/Severity: severe Location: generalized flank, worse in RLQ Radiation: no radiation Prior Abdominal Problems: none No Modifying Factors: none Associated Symptoms: abdominal pain, diarrhea HPI: 75 year old male who presents from dialysis with his with abdominal pain x 2 days, nausea and poor appetite. He has had multiple episodes of diarrhea associated with some right lower quadrant pain. He reports it feels like his previous episodes of crohns colitis. Past History Travel History Traveled to [place] past 21 day No Medical History Any Pertinent Medical History? 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 Psychiatric: NONE Endocrine: diabetes Blood Disorders: anemia, coagulopathy, DVT (RUE and RLE), antiphosphlipid syndrome Cancer(s): NONE STEERER/Reproductive: NONE History of MRSA: No History of VRE: Yes History of CDIFF: No Surgical History Surgical History: colon resection, knee replacement (left), LEFT HIP ORIF status post right leg bypass status post right patellar ORIF status post right TMA status post lithotripsy and stent placements Psychosocial History Who do you live with Spouse Services at Home None What is your primary language Georgian Family History Family History, If Any: FATHER Antiphospholipid syndrome FH: diabetes mellitus MOTHER FH: Crohn's disease Hx Contributory? No Review of Systems Review of Systems Constitutional: Denies: chills, fever. EENTM: Reports: no symptoms. Respiratory: Denies: cough, short of breath. Cardiovascular: Denies: chest pain, palpitations. GI: Reports: abdominal pain, diarrhea, nausea. Denies: vomiting. Genitourinary: Reports: no symptoms. Musculoskeletal: Reports: no symptoms. Skin: Reports: no symptoms. Neurological/Psychological: Reports: no symptoms. Hematologic/Endocrine: Denies: bruising, bleeding, polyuria, polydipsia. Immunologic/Allergic: Denies: splenectomy. All Other Systems: Reviewed and Negative Physical Exam Physical Exam General Appearance: well developed/nourished, alert, awake, mild distress Head: atraumatic, normal appearance Eyes: Bilateral: PERRL, EOMI. Ears, Nose, Throat, Mouth: hearing grossly normal Neck: normal inspection, supple, full range of motion Respiratory: normal breath sounds, chest non-tender, no respiratory distress Cardiovascular: regular rate/rhythm Peripheral Pulses: 2+ radial (R), 2+ radial (L) Gastrointestinal: soft, tenderness (RLQ, EPIGASTRIC, LUQ), VOLUNTARY GUARDING Rectal: mcgrath colored stoo, GUIAC TENDERNESS Back: normal inspection, normal range of motion Extremities: normal range of motion, evidence of injury Skin: pallor Core Measures ACS in differential dx? Yes Severe Sepsis Present: Yes Septic Shock Present: Yes Progress Differential Diagnosis: diverticulitis, ischemic bowel, inflamm bowel dis, perforated viscous, ISCHEMIC COLITIS, SEPSIS, BEATRICE, DEHYDRATION, c.diff Plan of Care: Orders Procedure Date/time Status Nothing by Mouth 10/08 B Active VRE ACTIVE SURVIELLANCE 10/08 0617 Active ACTIVE SURVEILLANCE NARES 10/08 0617 Active LACTIC ACID 10/08 0539 Active OXYGEN SETUP (GEN) 10/08 0516 Complete PROTHROMBIN TIME 10/08 0500 Active ICU LAB BUNDLE 10/08 0500 Active CBC WITHOUT DIFFERENTIAL 10/[address] in observation 10/08 0417 Active Pathway - chart 10/08 0404 Active House Staff 10/08 0404 Active Code Status 10/08 0404 Active Patient Data 10/08 0244 Active CULTURE,STOOL 10/08 0239 Active OVA AND PARASITE ANTIGENS 10/08 0239 Active C.DIFFICILE 10/08 0239 Active Vital Signs 10/08 0238 Active Code Status 10/08 0238 Complete LACTIC ACID 10/08 0145 Active VTE Mechanical Prophylaxis 10/08 UNK Active BLOOD CULTURE 10/07 2245 Active PARTIAL THROMBOPLASTIN TIME 10/07 2245 Complete PROTHROMBIN TIME 10/07 2245 Complete LACTIC ACID 10/07 2245 Complete COMPREHENSIVE METABOLIC PANEL 10/07 2245 Complete CBC WITHOUT DIFFERENTIAL 10/07 2245 Complete FingerStick- Glucose 10/07 2242 Active Intake & Output 03/13 2240 Active EKG 10/07 2214 Active Current Medications Sig/Kailash Start time Last Medication Dose Stop Time Status Admin Ceftriaxone Sodium 1,000 MG Q24H 10/09 0400 AC (Rocephin) Metronidazole 500 MG Q8H 10/08 1200 AC (Flagyl) N/A 1 UNIT (No Carrier) Hydrocortisone 50 MG Q6H 10/08 0800 AC Sodium Succinate (Solucortef) Dextrose/Sodium 1,000 ML Q13H 10/08 0600 AC Chloride (D5-Normal Saline) Insulin Human Regular 0 Q6 10/08 0600 AC (Novolin R) Artificial Tears 2 GTT TID 10/08 0407 AC (Tears Natural) Ampicillin Sodium/ 1,500 MG ONCE ONE 10/08 0215 CAN Sulbactam Sodium 10/08 0244 (Unasyn) Sodium Chloride 100 ML (Normal Saline 0.9%) Laboratory Tests 10/07/16 2305: Anion Gap 6, Estimated GFR 40 L, BUN/Creatinine Ratio 2.9 L, Glucose 109 H, Lactic Acid 1.7, Calcium 7.9 L, Total Bilirubin 0.4, AST 21, ALT 28, Alkaline Phosphatase 149 H, Total Protein 5.1 L, Albumin 1.9 L, Globulin 3.2, Albumin/ Globulin Ratio 0.6 L, PT 44.9 *H, INR 4.34 *H, APTT 82 H, CBC w Diff NO MAN DIFF REQ, RBC 3.55 L, MCV 93.9, MCH 28.5, RDW 23.2 H, MPV 9.4, Gran % 87.9 H, Lymphocytes % 7.7 L, Monocytes % 3.9, Eosinophils % 0.1, Basophils % 0.4, Absolute Granulocytes 10.4 H, Absolute Lymphocytes 0.9 L, Absolute Monocytes 0.5, Absolute Eosinophils 0, Absolute Basophils 0, PUBS MCHC 30.3 L Microbiology 10/08 06 UPPER RESP: Surveillance Culture - ORD 10/08 616 GI: Surveillance Culture - ORD 10/08 238 STOOL: Cryptosporidium Antigen - COLB 10/08 238 STOOL: Giardia Antigen (POLO) - COLB 10/08 238 STOOL: Clostridium difficile Toxin A & B - COLB 10/08 238 STOOL: Stool Culture - COLB 10/07 2315 BLOOD: Blood Culture - RECD 10/07 2244 BLOOD: Blood Culture - COLB 2:13 am d/w radiologist - new thick walled rectosigmoid colon and distal small bowel is also thick walled. New portal venous gas. No mesenteric venous gas. ROCEPHIN/ FLAGYL ORDERED. 2:40 AM D/W Dr. Yost. Will come to ED to evaluate patient. Patient admitted to the ICU under Dr. Hemphill's service. 3:50 AM Patient hypotensive. Fluid resusscitation in process. Currently DNR. Dr Hemphill to speak with regarding central line. hydrocortisone 100 mg iv given. (STEVEN HEATH,ANITA) Diagnostic Imaging: Viewed by Me: CT Scan. Discussed w/RAD: CT Scan. Radiology Impression: PATIENT: BENJAMIN SMITH PRESENT AGE: 75 PATIENT ACCOUNT NO: [id number] : 41 LOCATION: [facility] ORDERING PHYSICIAN: ANITA HARRIS MD SERVICE DATE: 10/08/16 EXAM TYPE: CAT - CT ABD & PELVIS W/O IV CONTRAS EXAMINATION: CT ABDOMEN AND PELVIS WITHOUT CONTRAST CLINICAL INFORMATION: Right lower quadrant pain. Diarrhea. History of Crohn's disease. COMPARISON: 09/02/2016 TECHNIQUE: Multidetector volumetric imaging was performed from the superior aspect of the liver through the pubic symphysis. Sagittal and coronal reformatted images were obtained on the technologist's workstation. DLP: 542 mGy-cm FINDINGS: LUNG BASES: Small bilateral pleural effusions with associated atelectasis. This is increased from prior. Coronary artery calcifications present. LIVER, GALLBLADDER, AND BILIARY TREE: The liver is normal in size and shape. There is diffuse portal venous gas, particularly in the left lobe of the liver. The gallbladder is again noted to be markedly distended. Small layering gallstones seen within the gallbladder lumen. No wall thickening or pericholecystic fluid. PANCREAS: Fatty atrophy of the pancreas with no focal abnormality. SPLEEN: Unremarkable. ADRENAL GLANDS: Unremarkable. KIDNEYS AND URETERS: The kidneys are mildly atrophic. There is a left midpole 4.6 cm cyst. No hydronephrosis. No nephrolithiasis. The ureters are normal in caliber. BLADDER: Unremarkable. GASTROINTESTINAL TRACT: The stomach is distended without wall thickening. There is gas and fluid-filled prominence of the small bowel throughout much of its course. The patient appears to be status post near total colectomy. There is a distal enterocolic anastomosis seen in the anterior pelvis. There is wall thickening of the remaining colon. There is also wall thickening seen in the distal small bowel which is fecalized. No pneumatosis. ABDOMINAL WALL: Diffuse anasarca. Fat-containing inguinal hernias. LYMPH NODES: Normal. VASCULAR: Moderate atherosclerotic calcifications. PELVIC VISCERA: Limited evaluation secondary to left hip arthroplasty artifact. OSSEOUS STRUCTURES: Left hip hemiarthroplasty. Degenerative changes of the spine. IMPRESSION: New presence of portal venous gas, most prominently in the left lobe of the liver. Post surgical changes of the bowel with distal enterocolic anastomosis. There is wall thickening of the distal small bowel and remaining colon, suggestive of enterocolitis. This could be associated with the patient's history of Crohn's disease. Mild prominence with gas and fluid filling small bowel proximally, likely reactive to the distal process and possibly partially obstructed. Small bilateral pleural effusions. This critical result was discussed with ANITA HARRIS MD by telephone at 10/08/2016 2:15 AM and it was ascertained that the content and urgency of the report was understood at the time of direct communication. DICTATED BY: SWATI TADEO MD DATE/TIME DICTATED:10/08/16204 CHUCK WAGON COOK:JOSE D DATE/TIME TRANSCRIBED:204 CONFIDENTIAL, DO NOT COPY WITHOUT APPROPRIATE AUTHORIZATION. < Electronically signed in Other Vendor System> SIGNED BY: SWATI TADEO MD 10/08/16 0220 Initial ED EKG: NSR, RBBB Departure Departure Time of Disposition: 023 Disposition: STILL A PATIENT Condition: Stable Clinical Impression Primary Impression: Enterocolitis Referrals: WAYNE HUGO MD Departure Forms: Customer Survey General Discharge Information Admission Note Spoke With: DEBBIE HEMPHILL MD Documentation of Exam: Documentation of any treatments & extenuating circumstances including Concerns Regarding Discharge (functional status, medication knowledge or non-compliance, living conditions, etc.) that warrant an admission rather than observation:
--- NOTE | 2016-10-07 22:40 | NUR ---
[facility] NEW ONSET R MID TO LOWER QUADRANT PAIN, PAIN WITH PALPATION AND SMALL MASS PALPATED. DENIES N/V BUT REPORTS FEELING LIKE "ITS MY CROHN'S AGAIN" AND ENDORSES DIARRHEA SYMPTOMS. ALSO STATES HE WAS JUST RECENTLY DISCHARGED FROM HOSPITAL FOR SAME.
--- NOTE | 2016-10-07 23:15 | NUR ---
PT WITH VERY POOR VENOUS ACCESS, HEALING WOUND NOTED TO LEFT HAND FROM PREVIOUS IV INFILTRATION FROM LAST ADMISSION. SOME ERYTHEMA NOTED SURROUNDING. 22G IV ESTABISHED TO LAC AND NS IVF BOLUS RUNNING AND PT MEDICATED WITH MORPHINE AND ZOFRAN. BLOOD DRAWN AND SENT (BLUE, SSTX2, LAV, GARCIA, BLOOD CULTURES X2 SETS). INFORMED WAITING PROVIDED
[2016-10-07 23:19] LABS: ABSOLUTE BASOPHIL COUNT 0 /CUMM (0.0-0.2); ABSOLUTE EOSINOPHIL COUNT 0 /CUMM (0.0-0.7); ABSOLUTE GRANULOCYTE CT 10.4 /CUMM (1.4-6.5); ABSOLUTE LYMPH COUNT 0.9 /CUMM (1.2-3.4); ABSOLUTE MONOCYTE COUNT 0.5 /CUMM (0.10-0.60); BASOPHIL % 0.4 % (0.0-2.0); EOSINOPHIL % 0.1 % (0-5); HEMATOCRIT 33.3 % (42-52); MEAN CORPUSCULAR HGB 28.5 PG (27.0-31.0); MEAN CORPUSCULAR HGB CONC 30.3 G/DL (33.0-37.0); MEAN CORPUSCULAR VOLUME 93.9 FL (80.0-94.0); MEAN PLATELET VOLUME 9.4 FL (7.4-10.4); RBC DISTRIBUTION WIDTH 23.2 % (11.5-14.5); RED BLOOD CELL CT 3.55 /CUMM (4.70-6.10); WHITE BLOOD CELL COUNT 11.8 /CUMM (4.8-10.8)
[2016-10-07 23:21] LABS: GRANULOCYTE % 87.9 % (42.2-75.2); PLATELET COUNT 265 /CUMM (130-400)
[2016-10-07 23:29] LABS: PTT 82 SEC (25-37)
[2016-10-07 23:36] LABS: PT 44.9 SEC (9.4-12.5)
--- NOTE | 2016-10-07 23:42 | NUR ---
CRITICAL TEST RESULTS [id number] BENJAMIN SMITH 75 M TESTS AND RESULTS: PT 44.9 INR 4.34 Results received and read back by: MARTINA CHOU Results received date and time: 10/07/16 5383 The following provider was notified of the results, and read the results back: DR HARRIS Notified date and time: 10/07/16 at 3233
--- NOTE | 2016-10-07 23:50 | NUR ---
INCONTINENT OF MOD AMT OF LOOSE LT BROWN LIQ DIARRHEA. PERICARE, SOILED DIAPER REMOVED, LG BLUE DISP COVIDEN CLOTH PLACED UNDER PT.
--- NOTE | 2016-10-08 01:04 | NUR ---
PATIENT TO RADIOLOGY BY STRETCHER.
--- NOTE | 2016-10-08 01:30 | NUR ---
DEON FROM RADIOLOGY
--- NOTE | 2016-10-08 02:20 | CT SCAN REPORT ---
EXAMINATION: CT ABDOMEN AND PELVIS WITHOUT CONTRAST CLINICAL INFORMATION: Right lower quadrant pain. Diarrhea. History of Crohn's disease. COMPARISON: 09/02/2016 TECHNIQUE: Multidetector volumetric imaging was performed from the superior aspect of the liver through the pubic symphysis. Sagittal and coronal reformatted images were obtained on the technologist's workstation. DLP: 542 mGy-cm FINDINGS: LUNG BASES: Small bilateral pleural effusions with associated atelectasis. This is increased from prior. Coronary artery calcifications present. LIVER, GALLBLADDER, AND BILIARY TREE: The liver is normal in size and shape. There is diffuse portal venous gas, particularly in the left lobe of the liver. The gallbladder is again noted to be markedly distended. Small layering gallstones seen within the gallbladder lumen. No wall thickening or pericholecystic fluid. PANCREAS: Fatty atrophy of the pancreas with no focal abnormality. SPLEEN: Unremarkable. ADRENAL GLANDS: Unremarkable. KIDNEYS AND URETERS: The kidneys are mildly atrophic. There is a left midpole 4.6 cm cyst. No hydronephrosis. No nephrolithiasis. The ureters are normal in caliber. BLADDER: Unremarkable. GASTROINTESTINAL TRACT: The stomach is distended without wall thickening. There is gas and fluid-filled prominence of the small bowel throughout much of its course. The patient appears to be status post near total colectomy. There is a distal enterocolic anastomosis seen in the anterior pelvis. There is wall thickening of the remaining colon. There is also wall thickening seen in the distal small bowel which is fecalized. No pneumatosis. ABDOMINAL WALL: Diffuse anasarca. Fat-containing inguinal hernias. LYMPH NODES: Normal. VASCULAR: Moderate atherosclerotic calcifications. PELVIC VISCERA: Limited evaluation secondary to left hip arthroplasty artifact. OSSEOUS STRUCTURES: Left hip hemiarthroplasty. Degenerative changes of the spine. IMPRESSION: New presence of portal venous gas, most prominently in the left lobe of the liver. Post surgical changes of the bowel with distal enterocolic anastomosis. There is wall thickening of the distal small bowel and remaining colon, suggestive of enterocolitis. This could be associated with the patient's history of Crohn's disease. Mild prominence with gas and fluid filling small bowel proximally, likely reactive to the distal process and possibly partially obstructed. Small bilateral pleural effusions. This critical result was discussed with ANITA HARRIS MD by telephone at 10/08/2016 2:15 AM and it was ascertained that the content and urgency of the report was understood at the time of direct communication.
--- NOTE | 2016-10-08 02:30 | NUR ---
CT RESULTS BACK DR HARRIS IN TO RE EVAL.
--- NOTE | 2016-10-08 03:12 | NUR ---
PT IS GOING TO ROOM 114-1
--- NOTE | 2016-10-08 03:30 | NUR ---
HOUSE STAFFF AWARE OF DECREASED BP DR ANGUIANO SPEAKING W/PT'S VIA PHONE RE:CODE STATUS, CT RESULTS.
--- NOTE | 2016-10-08 03:31 | NUR ---
2ND IV ESTABLISHED. NS UP WO
--- NOTE | 2016-10-08 04:30 | History & Physical ---
SILVIO HEATHMEAGHAN 10/08/16 0429: General Information and HPI History of Present Illness: 75 year old man with multiple medical comorbidities significant for ESRD on HD and Crohn's disease recently discharged from [facility] seen for evaluation of abdominal pain during hemodialysis. Patient was admitted to [facility] from 09/24/16-10/03/16 for sepsis secondary to aspiration pneumonia requiring 8 days total intravenous antibiotics. Patient was subsequently discharged to [facility] for long-term care. Patient also has multiple recent previous hospitalizations requiring intensive care unit admissions. Multiple discussions regarding goals of care have occurred with patient's whom is in agreement at this time that patient should be made DO NOT RESUSCITATE/DO NOT INTUBATE without any heroic measures including no central lines, vasopressors but otherwise to continue intravenous fluid resuscitation, steroids, and antibiotics. Presently patient is complaining of diffuse abdominal pain of which he notes has been present/worsening over the past 2 days. Patient is somnolent/lethargic and specific details regarding subjective complaints are unobtainable. Collateral information obtained from patient's reveals that patient appeared well on day of discharge from hospital however has appeared ill and pale over the past few days. Patient has not otherwise endorsed any other subjective complaints other than vague abdominal pain. Patient was transferred from hemodialysis to the [place] ED for further evaluation for these complaints. Review of systems is unobtainable due to patient's clinical condition. Past medical history-ESRD on HD, Crohn's disease, insulin-dependent diabetes mellitus, atrial fibrillation on Coumadin, antiphospholipid antibody syndrome, chronic lower extremity DVT, peripheral vascular disease, chronic nonhealing bilateral lower extremity ulcers status post multiple debridements Allergies/Medications Allergies: Coded Allergies: Sulfa (Sulfonamide Antibiotics) (Mild, HIVES 06/15/16) Home Med list Aspirin (Ecotrin*) 81 MG TABLET.DR 1 TAB PO QPM HEART HEALTH (Reported) Reason to Stop at ADM: high INR, risk for bleeding Atorvastatin Calcium 40 MG TABLET 1 TAB PO QPM CHOLESTEROL (Reported) Carvedilol (Coreg) 3.125 MG TABLET 6.25 MG PO BID high heart rate Reason to Stop at ADM: hypotensive Cholestyramine/Aspartame (Cholestyramine Light Packet) 4 GRAM POWD.PACK 1 PAC PO BID Malabsorption Ferrous Sulfate 325 MG (65 MG IRON) TABLET 1 TAB PO QPM SUPPLEMENT (Reported) Guaifenesin (Mucinex) 600 MG TAB.ER.12H 1 TAB PO BID cONGESTION Insulin Aspart (Novolog) 100 UNIT/ML VIAL 0 UNITS SC TIDAC Diabetes BEFORE MEALS Blood Insulin Sugar Units <80 Intiate hypoglycemia 80-150 2 151-200 3 201-250 4 251-300 5 301-350 6 351-400 7 >400 8 and Call Doctor AT BEDTIME Blood Insulin Sugar Units <80 Intiate hypoglycemia 81-150 0 151-200 0 201-250 0 251-300 0 301-350 2 351-400 2 >400 3 and Call Doctor Ofloxacin 0.3 % DROPS 1 GTT OT Q6 conjunctivitis Omeprazole 20 MG CAPSULE.DR 1 CAP PO DAILY GI (Reported) Prednisone 5 MG TABLET 1 TAB PO DAILY Crohns disease Sevelamer Carbonate (Renvela) 800 MG TABLET 1 TAB PO TIDWM KIDNEYS (Reported) RESTART WHEN PHOS LEVEL >3.5 Sodium Chloride (Saline Nasal [place]) 0.65 % SPRAY 1 SPRAY NASB 4 TIMES/DAY PRN dRY NOSE Warfarin Sodium (Coumadin) 1 MG TABLET 1 TAB PO Q48 BLOOD THINNER (Reported) Reason to Stop at ADM:supratherapeutic INR. Please monitor his INR regularly in the setting of multiple fluctations Past History Travel History Traveled to [place] past 21 day No Medical History Neurological: NONE EENT: NONE Cardiovascular: AFIB, PVD, DVT Respiratory: pneumonia Gastrointestinal: Crohn's disease Hepatic: NONE Renal: nephrolithiasis, CKD Musculoskeletal: 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 Psychiatric: NONE Endocrine: diabetes Blood Disorders: anemia, coagulopathy, DVT (RUE and RLE), antiphosphlipid syndrome Cancer(s): NONE MANAGER CHINESE/Reproductive: NONE History of MRSA: No History of VRE: Yes History of CDIFF: No Surgical History Surgical History: colon resection, knee replacement (left), LEFT HIP ORIF status post right leg bypass status post right patellar ORIF status post right TMA status post lithotripsy and stent placements Past Family/Social History Family History Relations & Conditions if any FATHER Antiphospholipid syndrome FH: diabetes mellitus MOTHER FH: Crohn's disease Psychosocial History Where do you live? Senior Living Facility Who Do You Live With? spouse Services at Home: None Primary Language: Georgian Functional Ability ADLs Independent: dressing, eating, toileting, bathing. Ambulation: walker IADLs Needs Assist: shopping, housework, finances, food prep, telephone, transportation, medication admin. Review of Systems Review of Systems Constitutional: Reports: see HPI. Exam & Diagnostic Data Last 24 Hrs of Vital Signs/I&O Vital Signs Date Time Temp Pulse Resp B/P Pulse O2 O2 Flow FiO2 Ox Delivery Rate 10/08 0409 97 22 83/52 Nasal 3.0L Cannula 10/08 0355 110 22 87/57 91 Nasal 3.0L Cannula 10/08 0320 95 22 62/46 90 Room Air 10/07 2339 96 Room Air 10/07 2320 98.2 77 20 123/55 95 Room Air Intake & Output 10/08 0800 10/08 0000 10/07 1600 Intake Total Output Total Balance Patient 90.718 kg Weight Physical Exam General Appearance Mild Distress, elderly/frail man Skin Multiple skin tears/chronic wounds in various stages of healing throughout body without any evidence of local infection or drainage HEENT Atraumatic, EOMI, Mucous Membr. moist/pink Neck Supple Cardiovascular Normal S1, Normal S2, No Murmurs, Irregular rate, Distant Heart Sounds Lungs Clear to Auscultation, Normal Air Movement Abdomen Normal Bowel Sounds, Soft, No Hepatospenomegaly, No Masses, Diffuse abdominal tenderness without guarding or rigidity, well healed midline surgical incision, nondistended Neurological Somnolent/Lethargic, Soft speech, CN II - XII grossly intact, limited neurologic exam secondary to clinical condition Extremities No Cyanosis, No Edema, Faint distant pulses Vascular Poor distal pulses Last 24 Hrs of Labs/[place]: Laboratory Tests 10/07/16 2305: Anion Gap 6, Estimated GFR 40 L, BUN/Creatinine Ratio 2.9 L, Glucose 109 H, Lactic Acid 1.7, Calcium 7.9 L, Total Bilirubin 0.4, AST 21, ALT 28, Alkaline Phosphatase 149 H, Total Protein 5.1 L, Albumin 1.9 L, Globulin 3.2, Albumin/ Globulin Ratio 0.6 L, PT 44.9 *H, INR 4.34 *H, APTT 82 H, CBC w Diff NO MAN DIFF REQ, RBC 3.55 L, MCV 93.9, MCH 28.5, RDW 23.2 H, MPV 9.4, Gran % 87.9 H, Lymphocytes % 7.7 L, Monocytes % 3.9, Eosinophils % 0.1, Basophils % 0.4, Absolute Granulocytes 10.4 H, Absolute Lymphocytes 0.9 L, Absolute Monocytes 0.5, Absolute Eosinophils 0, Absolute Basophils 0, PUBS MCHC 30.3 L Microbiology 10/08 238 STOOL: Cryptosporidium Antigen - ORD 10/08 238 STOOL: Giardia Antigen (AVTAR) - ORD 10/08 238 STOOL: Clostridium difficile Toxin A & B - ORD 10/08 238 STOOL: Stool Culture - ORD 10/07 231 BLOOD: Blood Culture - RECD 10/07 2244 BLOOD: Blood Culture - ORD Diagnostic Data EKG Results NSR HR 86 TX 176 QTc 541 T-wave flattening V1-4 RBBB Other Results EXAM TYPE: CAT - CT ABD & PELVIS W/O IV CONTRAST IMPRESSION: New presence of portal venous gas, most prominently in the left lobe of the liver. Post surgical changes of the bowel with distal enterocolic anastomosis. There is wall thickening of the distal small bowel and remaining colon, suggestive of enterocolitis. This could be associated with the patient's history of Crohn's disease. Mild prominence with gas and fluid filling small bowel proximally, likely reactive to the distal process and possibly partially obstructed Small bilateral pleural effusions. Assessment/Plan Assessment: 75-year-old man with multiple medical problems and multiple recent hospital admissions requiring intensive care evaluation brought in by ambulance for evaluation of persistent/worsening abdominal pain over the past 2 days. ED course: -Vitals: Temp 98.2, HR 95-110, RR 20-22, BP 62-1-3/46-57, 02 90-95% he 3.0 L supplemental oxygen via nasal cannula -Significant Labs: CBC 11.8, Hgb/HCT 10.1/33.3, PLT 265, sodium 135, BUN/ creatinine 5/1.7, lactic acid 1.7, calcium 7.9, total bilirubin 0.4, AST/ALT 21/ 28 alkaline phosphatase 149, PT 44.9, INR 4.34 -Studies: CT abdomen/pelvis-new presence of portal venous gas most prominently in the left lobe of the liver EKG-NSR with RBBB and prolonged QTC interval with T-wave flattening in V1-4 -Interventions: Ceftriaxone 1 g IV, Metronidazole 500 mg IV, normal saline 500 mL IV, Zofran 4 mg IV, morphine sulfate 2 mg IV, Solu-Cortef 100 mg IV, general surgery consult ED attending placed general surgery consult with Dr. Yost, whom stated he would be in to evaluate the patient. Patient's was contacted in regards to the patient's current clinical condition and it was decided that given patient's frail state and extensive recent medical problems it would not be best wishes to pursue any kind of surgical intervention should he possibly be a candidate. It was also further clarified with the patient's that patient will be monitored in the intensive care unit, however intervention such as central lines , vasopressors, or aggressive heroic measures should not be applied to patients care. Hepatic portal venous gas with septic shock Patient with an extensive past medical history significant for multiple hospitalizations and ESRD on HD, severe peripheral vascular disease, and Crohn's disease on chronic suppressive steroids seen for evaluation of persistent/ worsening abdominal pain after hemodialysis. CT scan of the abdomen demonstrated air within the hepatic portal vein of unclear etiology. -Intensive care unit -No central line/vasopressors/aerobic measures -Intravenous fluid resuscitation, maintain SBP greater than 90 mmHg -Solu-Cortef 50 mg IV Q6H -Ceftriaxone 1 g IV daily -Metronidazole 500 mg IV daily -Blood/stool cultures -Gen. surgery evaluation, patient's does not want to pursue surgery -ID consult -Endo consult -Follow up C. difficile toxin, Giardia/cryptosporidium antigen ESRD on HD Patient with extensive cardiovascular disease and known end-stage renal disease attending regular dialysis sessions. -Avoid nephrotoxic medications such as NSAIDs -Hemodialysis -Limit intravenous fluid resuscitation -Nephrology consult History of atrial fibrillation EKG demonstrates normal sinus rhythm on initial evaluation. -Telemetry -Follow-up daily INR, dose Coumadin accordingly Insulin-dependent diabetes mellitus -Accu-Cheks 3 times a day before meals/at bedtime -Hold oral hypoglycemics -NovoLog sliding scale insulin Chronic bilateral lower extremity wounds-wound care consult Pain plan-acetaminophen Diet-nothing by mouth DVT prophylaxis-on anticoagulation CODE STATUS-DO NOT RESUSCITATE/DO NOT INTUBATE, no central line, no vasopressors , no feeding tube no aggressive measures As Ranked By This Provider Problem List: 1. Septic shock Core Measures/Miscellaneous Acute Coronary Syndrome ACS Diagnosis: No Cerebrovascular Accident CVA/TIA Diagnosis: No Congestive Heart Failure CHF Diagnosis: No Venous Thromboembolism VTE Risk Factors: Acute medical illness, Age > 40 No Mech VTE prophylaxis d/t: DVT of LE, LE Injury, current No VTE Pharm Prophylaxis d/t: No contraindications VTE Diagnosis: No VTE Type: NONE VTE Confirmed by (Test): NONE Comment: Chronic LE DVT Severe Sepsis Severe Sepsis Present: Yes BC x2: Yes Lactic Acid x2: Yes IV ABX Broad Spectrum: Yes NS/LR Started: Yes Septic Shock Septic Shock Present: Yes BC x2: Yes Lactic Acid: Yes IV ABX Broad Spectrum: Yes Focused Exam Completed: Yes NS/LR 30ml/kg w/in 3hrs: No IV Vasopressors started: No Comment: IVF titrated to SBP >90 given history of ESRD No IV vasopressors per family/patient wishes Miscellaneous Documentation Attending Case Discussed With: Dr. Sam Del Cid Primary Care Physician: TAD CATALAN MD Patient sees these Specialists Product Lister Efraín Mercedes MD Vascular surgeon Jitendra Pretty MD Experimental Electronics Developer Sidney Kruse MD Legal Examiner Eddi Hilton MD Level of Patient Care: Critical Care (CRI) Consults Needed: 1 Consulting Specialty: General Surgery Consults Needed: 2 Consulting Specialty: Critical Care SAM DEL CID MD 10/08/16 0605: Attending MD Review Statement Attending Statement Attending MD Statement: examined this patient, discuss w/resident/PA/WEB SPECIALIST, agreed w/resident/PA/WEB SPECIALIST, discussed with family, reviewed EMR data (avail), discussed with nursing, discussed with case mgmt, reviewed images, amended to note Attending Assessment/Plan: Sam Morgan M.D. have examined this patient, reviewed available EMR data, personally reviewed images, discussed with resident/PA/WEB SPECIALIST, discussed management plan with housestaff and nursing staff, discussed managment plan all of healthcare providers, discussed management plan with patient and/or family, agreed with resident/PA/WEB SPECIALIST. The past history and parts of the chart have been autopopulated. Impression 75 year old man - portal venous gas most prominent left lobe of liver resulting in septic shock - ESRD on HD - DM - Hx of afib - chronic LE wounds - Crohn's disease - hx adrenal insufficiency Respiratory - keep spo2 >92% - baseline cxr ID - ID consultation - received ceftriaxone/flagyl - panculture CVS - monitor hemodynamics - no vasopressors/central access per at this time Heme - monitor cbc, coags Metabolic - nephrology consultation - endocrinology consultation - hydrocortisone 50 q 6h for now - ins/outs - monitor electrolytes Alimentary - NPO Neuro - no acute issues DVT prophylaxis at all times - supratherapeutic INR DNR/DNI, no vasopressors, no surgical intervention - Dr. Yost was contacted by ED, however after speaking with the no plan for surgery given conservative measures Will need to continue to evaluate goals of care TTS 60 min TRACI GASPAR 10/08/16 0819: Resident Review Statement Resident Statement: examined this patient, discussed with supply chain intern, amended to note Other Findings: 75-year-old man with past medical history of diabetes, ESRD on dialysis, Crohn's disease, A. fib on Coumadin, antiphospholipid antibody syndrome was recently discharged from the [facility] with chief complaint of aspiration PNA of hypoglycemia, came to the hospital from dialysis with chief complaint of abdominal pain. Upon H&P patient was very tired, lethargic and most of the information was obtained from patient's . is reported to the patient was feeling ill, complaining of abdominal pain, without any other major complaints. His initial vital signs were stable however will he developed hypotension during the ED stay which required normal saline bolus and maintenance fluids. INR is 4.34, chemistries compatible with recent dialysis, albumin 10.3, WBC 11.8 physical exam patient was completely lethargic, Neck Supple Cardiovascular Normal S1, Normal S2, No Murmurs, Irregular rate, Distant Heart Sounds Lungs Clear to Auscultation, Normal Air Movement Abdomen Normal Bowel Sounds, Soft, No Hepatospenomegaly, No Masses, Diffuse abdominal tenderness without guarding or rigidity, well healed midline surgical incision, nondistended EKG NSR,HR 86, TX 176,QTc 541,T-wave flattening V1-4 CT scan: IMPRESSION: New presence of portal venous gas, most prominently in the left lobe of the liver. Post surgical changes of the bowel with distal enterocolic anastomosis. There is wall thickening of the distal small bowel and remaining colon, suggestive of enterocolitis. This could be associated with the patient's history of Crohn's disease. Mild prominence with gas and fluid filling small bowel proximally, likely reactive to the distal process and possibly partially obstructed. Small bilateral pleural effusions. Clinical situation was discussed with Dr. Del Cid and patient's and was decided that he would not pursue any aggressive measures such as IJ line, pressors and patient should be DNR/DNI for now. Assessment and plan #Hepatic portal venous gas(septic versus ischemic) -Admit to ICU -NPO -Solu Cortef 100 mg IV once -IV ceftriaxone and Flagyl -Stool cultures, blood cultures -Gen. surgery already aware -Call Dr Hilton in the morning (try to call twice but the answering service was wrong) -NO Aggressive measures #ESRD on HD -avoid nephrotoxic agents -Call nephrology for HD in the morning #Hx of afib -Follow daily INR, dose coumadin accordingly - DM on Insulin -NPO for now -Novolin sliding scale -Hydration with D5 normal saline DNR/DNI, NPO, DVT prophylaxis is Alps and warfarin
--- NOTE | 2016-10-08 06:00 | NUR ---
PT DROWSY, AROUSABLE BUT ORIENTED. PLACED ON MONITOR. PT BP 78/DO DR. HAY NOTIFIED. NS BOLUS INITIATED. ATTEMPTED TO DRAW LABS UNABLE TO AT THIS TIME. PT ON 3L NS PULSE OX 91%. UNABLE TO GET A CONSISTANT SATURATION. LUNGS DIMINISHED. PT ARMS EDEMATOUS AND WEEPING. LEFT HAND SCAB VS NECROTIC AREA. LEFT ARM WITH SMALL SKIN TEAR SECONDARY TO LOCK FOR IV. MULTIPLE OPEN AREAS TO LEGS AND HEELS AND COCCYX SEE WOUND AND SKIN MAN. WOUND CARE EVAL PENDING. CALL LIGHT IN REACH. PATIENT ON AIR MATRESS AT THIS TIME AND TO BE REPOSITIONED FREQUENTLY
--- NOTE | 2016-10-08 06:13 | Admission Certification ---
Admission Certification Certification Statement - As attending physician, I certify that at the time of - admission, based on clinical presentation, severity of - symptoms, need for further diagnostic testing and - therapeutic interventions, and risk of adverse outcomes - without in-hospital treatment, in my clinical assessment, - this patient requires an acute hospital stay for a minimum - of two nights or longer. I have also considered psychsocial - factors such as support system, advanced age, financial - issues, cognitive issues, and failed out-patient treatments, - past re-admission history, safety of patient, and lack of - compliance as applicable. Specific rationale supporting this admission is: septic shock portal vein gas icu admission
--- NOTE | 2016-10-08 06:44 | Cons- General Surgery ---
General Information and HPI Consulting Request Date of Consult: 10/08/16 Requested By: DEBBIE SPENCER MD Reason for Consult: abdominal pain History of Present Illness: Patient brought to ER for evaluation of abdominal pain. He is unable to give much of a history, but from records, he developed the pain while undergoing dialysis. recently discharged from hospital for aspiration pneumonitis. Allergies/Medications Allergies: Coded Allergies: Sulfa (Sulfonamide Antibiotics) (Mild, HIVES 06/15/16) Home Med List: Aspirin (Ecotrin*) 81 MG TABLET.DR 1 TAB PO QPM HEART HEALTH (Reported) Reason to Stop at ADM: high INR, risk for bleeding Atorvastatin Calcium 40 MG TABLET 1 TAB PO QPM CHOLESTEROL (Reported) Carvedilol (Coreg) 3.125 MG TABLET 6.25 MG PO BID high heart rate Reason to Stop at ADM: hypotensive Cholestyramine/Aspartame (Cholestyramine Light Packet) 4 GRAM POWD.PACK 1 PAC PO BID Malabsorption Ferrous Sulfate 325 MG (65 MG IRON) TABLET 1 TAB PO QPM SUPPLEMENT (Reported) Guaifenesin (Mucinex) 600 MG TAB.ER.12H 1 TAB PO BID cONGESTION Insulin Aspart (Novolog) 100 UNIT/ML VIAL 0 UNITS SC TIDAC Diabetes BEFORE MEALS Blood Insulin Sugar Units <80 Intiate hypoglycemia 80-150 2 151-200 3 201-250 4 251-300 5 301-350 6 351-400 7 >400 8 and Call Doctor AT BEDTIME Blood Insulin Sugar Units <80 Intiate hypoglycemia 81-150 0 151-200 0 201-250 0 251-300 0 301-350 2 351-400 2 >400 3 and Call Doctor Ofloxacin 0.3 % DROPS 1 GTT OT Q6 conjunctivitis Omeprazole 20 MG CAPSULE.DR 1 CAP PO DAILY GI (Reported) Prednisone 5 MG TABLET 1 TAB PO DAILY Crohns disease Sevelamer Carbonate (Renvela) 800 MG TABLET 1 TAB PO TIDWM KIDNEYS (Reported) RESTART WHEN PHOS LEVEL >3.5 Sodium Chloride (Saline Nasal [place]) 0.65 % SPRAY 1 SPRAY NASB 4 TIMES/DAY PRN dRY NOSE Warfarin Sodium (Coumadin) 1 MG TABLET 1 TAB PO Q48 BLOOD THINNER (Reported) Reason to Stop at ADM:supratherapeutic INR. Please monitor his INR regularly in the setting of multiple fluctations Current Medications: Current Medications Sig/Kailash Start time Last Medication Dose Route Stop Time Status Admin Ampicillin Sodium/ 1,500 MG ONCE ONE 10/08 0215 CAN Sulbactam Sodium IV 10/08 0244 Sodium Chloride 100 ML Artificial Tears 2 GTT TID 10/08 0407 AC OPH Ceftriaxone Sodium 1,000 MG Q24H 10/09 0400 AC IV Ceftriaxone Sodium 0 .STK-MED ONE 10/08 0345 DC .ROUTE Ceftriaxone Sodium 1,000 MG ONCE ONE 10/08 0230 DC 10/08 IV 10/08 0231 0355 Dextrose/Sodium 1,000 ML Q13H 10/08 0600 AC Chloride IV Dextrose/Sodium 1,000 ML Q13H 10/08 0545 DC Chloride IV Hydrocortisone 50 MG Q6H 10/08 0800 AC Sodium Succinate IV Hydrocortisone 100 MG ONE ONE 10/08 0345 DC 10/08 Sodium Succinate IV 10/08 0346 0355 Insulin Human Regular 0 Q6 10/08 0600 AC SC Metronidazole 500 MG Q8H 10/08 1200 AC N/A 1 UNIT IV Metronidazole 500 MG ONCE ONE 10/08 0230 DC 10/08 N/A 1 UNIT IV 10/08 0329 0408 Morphine Sulfate 0 .STK-MED ONE 10/07 2312 DC .ROUTE Morphine Sulfate 2 MG ONCE ONE 10/07 2245 DC 10/07 IV 10/07 2246 2317 Ondansetron HCl 0 .STK-MED ONE 10/07 2311 DC .ROUTE Ondansetron HCl 4 MG ONCE ONE 10/07 2245 DC 10/07 IV 10/07 2246 2317 Sodium Chloride 500 ML BOLUS ONE 10/08 0545 AC 10/08 IV 10/08 0644 0552 Sodium Chloride 1,000 ML BOLUS ONE 10/08 0415 DC 10/08 IV 10/08 0514 0421 Sodium Chloride 500 ML BOLUS ONE 10/07 2245 DC 10/07 IV 10/07 2344 2317 Past History Medical History Neurological: NONE EENT: NONE Cardiovascular: AFIB, PVD, DVT Respiratory: pneumonia Gastrointestinal: Crohn's disease Hepatic: NONE Renal: nephrolithiasis, CKD Musculoskeletal: 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 Long-Term Facility Who Do You Live With? spouse Services at Home: None Primary Language: Nigerian Functional Ability ADLs Independent: dressing, eating, toileting, bathing. Ambulation: walker IADLs Needs Assist: shopping, housework, finances, food prep, telephone, transportation, medication admin. Review of Systems Review of Systems: unobtainable. Exam & Diagnostic Data Vital Signs and I&O Vital Signs Date Time Temp Pulse Resp B/P Pulse O2 O2 Flow FiO2 Ox Delivery Rate 10/08 0514 Nasal 3.0L Cannula 10/08 0409 97 22 83/52 Nasal 3.0L Cannula 10/08 0355 110 22 87/57 91 Nasal 3.0L Cannula 10/08 0320 95 22 62/46 90 Room Air 10/07 2339 96 Room Air 10/07 2320 98.2 77 20 123/55 95 Room Air Intake & Output 10/08 0800 10/08 0000 10/07 1600 10/07 0800 10/07 0000 10/06 1600 Intake Total Output Total Balance Patient 200 lb Weight Physical Exam: Gen: nad, tired appearing. not speaking in coherent sentences. Heent; anicteric, MMM, perrl chest; increased effort. no wheeze, normal excursion abd: soft, tender bilateral lower quadrants without guarding. no mass. no hernia ext: left hand edema with 4cm eschar Last 24 Hours of Labs: Laboratory Tests 10/07 2305 Chemistry Sodium (137 - 145 mmol/L) 135 L Potassium (3.5 - 5.1 mmol/L) 3.7 Chloride (98 - 107 mmol/L) 102 Carbon Dioxide (22 - 30 mmol/L) 26 Anion Gap (5 - 16) 6 BUN (9 - 20 mg/dL) 5 L Creatinine (0.7 - 1.2 mg/dL) 1.7 H Estimated GFR (>60 ml/min) 40 L BUN/Creatinine Ratio (7 - 25 %) 2.9 L Glucose (65 - 99 mg/dL) 109 H Lactic Acid (0.7 - 2.1 mmol/L) 1.7 Calcium (8.4 - 10.2 mg/dL) 7.9 L Total Bilirubin (0.2 - 1.3 mg/dL) 0.4 AST (17 - 59 U/L) 21 ALT (21 - 72 U/L) 28 Alkaline Phosphatase (< 127 U/L) 149 H Total Protein (6.3 - 8.2 g/dL) 5.1 L Albumin (3.5 - 5.0 g/dL) 1.9 L Globulin (1.9 - 4.2 gm/dL) 3.2 Albumin/Globulin Ratio (1.1 - 2.2 %) 0.6 L Coagulation PT (9.4 - 12.5 SEC) 44.9 *H INR (0.90 - 1.17) 4.34 *H APTT (25 - 37 SEC) 82 H Hematology CBC w Diff NO MAN DIFF REQ WBC (4.8 - 10.8 /CUMM) 11.8 H RBC (4.70 - 6.10 /CUMM) 3.55 L Hgb (14.0 - 18.0 G/DL) 10.1 L Hct (42 - 52 %) 33.3 L MCV (80.0 - 94.0 FL) 93.9 MCH (27.0 - 31.0 PG) 28.5 RDW (11.5 - 14.5 %) 23.2 H Plt Count (130 - 400 /CUMM) 265 MPV (7.4 - 10.4 FL) 9.4 Gran % (42.2 - 75.2 %) 87.9 H Lymphocytes % (20.5 - 51.1 %) 7.7 L Monocytes % (1.7 - 9.3 %) 3.9 Eosinophils % (0 - 5 %) 0.1 Basophils % (0.0 - 2.0 %) 0.4 Absolute Granulocytes (1.4 - 6.5 /CUMM) 10.4 H Absolute Lymphocytes (1.2 - 3.4 /CUMM) 0.9 L Absolute Monocytes (0.10 - 0.60 /CUMM) 0.5 Absolute Eosinophils (0.0 - 0.7 /CUMM) 0 Absolute Basophils (0.0 - 0.2 /CUMM) 0 PUBS MCHC (33.0 - 37.0 G/DL) 30.3 L Imaging Results: CT abd/pelvis without contrast reviewed. Images show mild diffuse dilatation of stomach, small bowel without transition. there is portal venous gas in liver, left lobe. There is no pneumotosis intestinalis. Assessment/Plan Assessment/Plan 75yo male with multiple medical problems including renal failure on dialysis, crohns disease s/p total abdominal colectomy with ileorectal anastomosis. Syndrome of acute onset abdominal pain and CT finding of portal venous gas in the liver suggest mesenteric ischemia as the etiology. There are no secondary findings of an ischemic segment of bowel on CT. He does not have peritonitis. His family does not wish to pursue surgical intervention. In light of the famli wishes, no further workup should be pursued. Ideally he should have IV contrast study (CT angiogram of the visceral vessels) to assess for arterial occlusive source of ischemia. Also high in the differential is nonocclusive mesenteric ischemia, especially given that his symptoms began on dialysis. This is caused by a low flow state and is treated by correcting hypovolemia. Agree with broad spectrum antibiotics. Consult Acknowledgment - Thank you for your consult request.
[2016-10-08 08:00] VITALS: BP 80/0
--- NOTE | 2016-10-08 08:47 | PN- Resident CRCU ---
Subjective HPI/CRCU Issues: Patient seen and examined this morning. He was lying in bed in no acute distress. Somnolent and lethargic but arousable. Blood pressure continues to be towards the lower side, otherwise afebrile and otherwise is within normal limits. Continues to complain of worsening abdominal pain, patient and family does not want any acute intervention at this time. 24 Hour Events: none Objective Vital Signs & I&O Last 8 Hrs of Vitals and I&O: Laboratory Tests 10/09/16 0515: PT 55.0 *H, INR 5.33 *H, CBC w Diff MAN DIFF ORDERED, RBC 3.15 L, MCV 95.0 H, MCH 29.5, RDW 24.0 H, MPV 10.9 H, Gran % 85.1 H, Lymphocytes % 5.2 L, Monocytes % 9.7 H, Eosinophils % 0, Basophils % 0 L, Absolute Granulocytes 6.1 , Segmented Neutrophils 58, Band Neutrophils 22 H, Absolute Lymphocytes 0.4 L, Lymphocytes 9 L, Monocytes 9, Absolute Monocytes 0.7 H, Absolute Eosinophils 0 , Absolute Basophils 0, Metamyelocytes 2 H, Nucleated RBCs 5 H, Platelet Estimate ADEQUATE, Polychromasia 1+, Hypochromic-Microcytic 1+, Poikilocytosis 1 +, Anisocytosis 1+, Ovalocytes 1+, PUBS MCHC 31.0 L, Fld Total RBCs Counted 100 10/08/162044: CBC w Diff NO MAN DIFF REQ, RBC 3.61 L, MCV 94.0, MCH 28.6, RDW 23.5 H, MPV 9.9, Gran % 86.0 H, Lymphocytes % 4.7 L, Monocytes % 9.2, Eosinophils % 0, Basophils % 0.1, Absolute Granulocytes 8.1 H, Absolute Lymphocytes 0.4 L, Absolute Monocytes 0.9 H, Absolute Eosinophils 0, Absolute Basophils 0, PUBS MCHC 30.4 L Microbiology 10/09 829 STOOL: Cryptosporidium Antigen - COMP 10/09 829 STOOL: Giardia Antigen (POLO) - COMP 10/08 1916 STOOL: Clostridium difficile Toxin A & B - RES 10/08 1916 STOOL: Stool Culture - RES Vital Signs Date Time Temp Pulse Resp B/P Pulse O2 O2 Flow FiO2 Ox Delivery Rate 10/09 08 96.1 79 20 68/0 94 Nasal 3.0L Cannula 10/09 0800 92 Nasal 3.0L Cannula 10/09 0700 108 35 132/70 98 Venti Mask 45% 10/09 0400 91 Nasal 3.0L Cannula 10/09 0000 90 Nasal 3.0L Cannula 10/08 2300 96.8 72 15 55/37 91 Nasal 3.0L Cannula 10/08 2000 91 Nasal 3.0L Cannula 10/08 1600 Nasal 3.0L Cannula 10/08 1600 96.1 71 19 78/0 Nasal 3.0L Cannula Intake & Output 10/09 1600 10/09 0800 10/09 0000 Intake Total 757 775 Output Total 0 0 Balance 757 775 Intake, IV 757 775 Intake, Oral 0 0 Number 1 2 Bowel Movements Output, Urine 0 0 Patient 70.108 kg Weight Exam General Appearance: see HPI Current Medications: Current Medications Sig/Kailash Start time Last Medication Dose Route Stop Time Status Admin Artificial Tears 2 GTT TID 10/08 0407 AC 10/09 OPH 1004 Ceftriaxone Sodium 1,000 MG Q24H 10/09 0400 DC 10/09 IV 0342 Dextrose/Sodium 1,000 ML Q13H 10/08 0600 DC 10/09 Chloride IV 0828 Hydrocortisone 100 MG Q6H 10/08 1400 AC 10/09 Sodium Succinate IV 0828 Insulin Aspart 0 Q4 10/08 1800 DC 10/09 SC 1004 Insulin Human Regular 0 Q6 10/08 0600 DC 10/08 SC 1228 Lorazepam 0.5 MG Q4P PRN 10/09 1215 AC IV Lorazepam 1 MG ONCE ONE 10/09 1130 DC 10/09 IV 10/09 1131 1129 Magnesium Sulfate 1 GM Q2H 10/08 1115 DC 10/08 Dextrose/Water 100 ML IV 10/08 1514 1420 Metronidazole 500 MG Q8H 10/08 1200 DC 10/09 N/A 1 UNIT IV 0334 Morphine Sulfate 2 MG Q1 NEEDED PRN 10/09 1335 AC IV Morphine Sulfate 4 MG ONCE ONE 10/09 1215 DC 10/09 IV 10/09 1216 1206 Morphine Sulfate 2 MG Q6P PRN 10/09 1215 DC IV Morphine Sulfate 2 MG ONCE ONE 10/09 1015 DC 10/09 IV 10/09 1016 1015 Scopolamine HBr 1 PAT Q72H 10/09 1215 AC TOP Sodium Chloride 500 ML BOLUS ONE 10/09 1015 DC 10/09 IV 10/09 1114 1009 Impression/Plan Impression/Problem List Impression: 75-year-old man with multiple medical problems and multiple recent hospital admissions requiring intensive care evaluation brought in by ambulance for evaluation of persistent/worsening abdominal pain over the past 2 days. ED course: -Vitals: Temp 98.2, HR 95-110, RR 20-22, BP 62-1-3/46-57, 02 90-95% he 3.0 L supplemental oxygen via nasal cannula -Significant Labs: CBC 11.8, Hgb/HCT 10.1/33.3, PLT 265, sodium 135, BUN/ creatinine 5/1.7, lactic acid 1.7, calcium 7.9, total bilirubin 0.4, AST/ALT 21/ 28 alkaline phosphatase 149, PT 44.9, INR 4.34 -Studies: CT abdomen/pelvis-new presence of portal venous gas most prominently in the left lobe of the liver EKG-NSR with RBBB and prolonged QTC interval with T-wave flattening in V1-4 -Interventions: Ceftriaxone 1 g IV, Metronidazole 500 mg IV, normal saline 500 mL IV, Zofran 4 mg IV, morphine sulfate 2 mg IV, Solu-Cortef 100 mg IV, general surgery consult ED attending placed general surgery consult with Dr. Yost, whom stated he would be in to evaluate the patient. Patient's was contacted in regards to the patient's current clinical condition and it was decided that given patient's frail state and extensive recent medical problems it would not be best wishes to pursue any kind of surgical intervention should he possibly be a candidate. It was also further clarified with the patient's that patient will be monitored in the intensive care unit, however intervention such as central lines , vasopressors, or aggressive heroic measures should not be applied to patients care. Respiratory: Satting in the 90s on 3 L of nasal cannula oxygen. Infectious disease: Patient presented with persistent/worsening abdominal pain after hemodialysis. CT scan of the abdomen demonstrated finding of portal venous gas in the liver likely secondary to mesenteric ischemia, likely no secondary findings of an ischemic segment of bowel on CT also no evidence of peritonitis. Surgery was contacted but since the family did not wish to pursue any surgical intervention at this point no further interventions were done. Patient started on Metronidazole 500 mg IV daily, Stool C. difficile toxin, Giardia/cryptosporidium antigen ordered will follow-up. #Cardiovascular: Hypotension; Blood pressure upon presentation was 123/55, which has been running low ever since Currently we're giving him IV fluids cautiously to keep systolic blood pressure greater than 90, will continue with home dose of Solu-Cortef, No central line/ vasopressors as per patient family wishes History of atrial fibrillation EKG demonstrates normal sinus rhythm on initial evaluation. -Telemetry -INR supratherapeutic, holding off of Coumadin today #Metabolic: Adrenal insufficiency: Patient has history of Crohn's disease, adrenal insufficiency for which he has been on chronic steroids. Blood pressure upon presentation was 123/55, which has been running low ever since Currently we're giving him IV fluids cautiously to keep systolic blood pressure greater than 90, will continue with home dose of Solu-Cortef, No central line/ vasopressors as per patient family wishes Insulin-dependent diabetes mellitus -Accu-Cheks 3 times a day before meals/at bedtime -Hold oral hypoglycemics -NovoLog sliding scale insulin -Endocrinology on board will follow-up recommendations. #Renal : ESRD on HD Patient with extensive cardiovascular disease and known end-stage renal disease attending regular dialysis sessions. -Avoid nephrotoxic medications such as NSAIDs -Hemodialysis tomorrow. Chronic bilateral lower extremity wounds-wound care consult Pain plan-acetaminophen Diet-nothing by mouth DVT prophylaxis-on anticoagulation CODE STATUS-DO NOT RESUSCITATE/DO NOT INTUBATE, no central line, no vasopressors , no feeding tube no aggressive measures Problem List: 1. Supratherapeutic INR 2. Diabetes mellitus 3. Anemia 4. Wound infection 5. Crohn disease 6. DVT prophylaxis 7. Antiphospholipid antibody syndrome 8. End stage renal disease Pain Ratin Pain Location: abdomen Tomorrow's Labs & Rationales: CBC for H&H monitoring INR for Coumadin dosing BEP for lites monitoring Plan DVT/Prophylaxis: pharmacological
[2016-10-08 09:08] LABS: ABSOLUTE BASOPHIL COUNT 0 /CUMM (0.0-0.2); ABSOLUTE EOSINOPHIL COUNT 0 /CUMM (0.0-0.7); ABSOLUTE GRANULOCYTE CT 8.1 /CUMM (1.4-6.5); ABSOLUTE LYMPH COUNT 0.3 /CUMM (1.2-3.4); ABSOLUTE MONOCYTE COUNT 0.9 /CUMM (0.10-0.60); BASOPHIL % 0 % (0.0-2.0); EOSINOPHIL % 0 % (0-5); GRANULOCYTE % 86.7 % (42.2-75.2); HEMATOCRIT 30.9 % (42-52); MEAN CORPUSCULAR HGB 28.7 PG (27.0-31.0); MEAN CORPUSCULAR HGB CONC 30.5 G/DL (33.0-37.0); MEAN PLATELET VOLUME 9.2 FL (7.4-10.4); PLATELET COUNT 208 /CUMM (130-400); RBC DISTRIBUTION WIDTH 22.8 % (11.5-14.5); RED BLOOD CELL CT 3.29 /CUMM (4.70-6.10); WHITE BLOOD CELL COUNT 9.4 /CUMM (4.8-10.8)
[2016-10-08 09:31] LABS: PT 50.5 SEC (9.4-12.5)
--- NOTE | 2016-10-08 11:47 | NUR ---
@0800-PT DROWSY/AROUS. FOLLOWS SIMPLE COMMANDS. SLOW TO RESPOND. ORIENTED TO PERSON AND PLACE, NOT TIME. DENIES PAIN AT THIS TIME. AFEBRILE. CONT ON 3LNC. O2SAT DIFFICULT TO OBTAIN CONT. SPOT CHECKS REVEAL O2SAT 91-93%. DIM BS TO BASES. DENIES SOB/CP. NSR/BBB HR 80S. PT REMAINS HYPOTENSIVE. DOPPLER BP 70-80S SYSTOLIC. MAINTENANCE FLUIDS CONT. NO BOLUS AT THIS TIME. IV SOLUCORTTEF ADMINISTERED ORD. PT REMAINS NPO. MOUTH CARE PROVIDED. ABD SOFT, +BS. SMALL AMT OF LIQ STOOL NOTED ON PAD-NOT ENOUGH FOR CX. GUIAC POSTIIVE, RED IN COLOR. REPORTED TO HOUSESTAFF. PT DOES NOT VOID-INC OF SMALL AMTS AT TIMES. DIALYSIS PT 3X WEEK. RCW PAMELA NOTED-LAST DIALYSIS Friday10/07/16. IVF INFUSING D5NS INFUSING AT 75ML/HR. WILL ATTEMPT TO DRAW LABS THIS AM. T&C ORD. MULT WOUNDS NOTED-BUE EDEMA +2 WITH SMALL SKIN TEARS AND WEEPING NOTED-ELEVATED ON PILLOWS AND COVERED WITH DISPOABLE PADS TO ABSORB WEEPING. STAGE 1 TO COCCYX/BUTTOCKS WITH OPEN AREA-STAGE 2 TO COCCYX-BARRIER CREAM APPLIED AND REPOSITIONED WITH PILLOWS. ON SPECIALTY MATTRESS. MULT NECROTIC WOUNDS/ULCERS TO BLE. LLE-L THIGH ULCER-NEW XEROFORM DSG PLACED. LARGE L GURROLA/CALF ULCER EXTENDING TO HEEL NOTED WITH PURULENT DRAINAGE-NEW XEROFORM DSG PLACED. SCABBED ? OPEN BLISTER TO L POSTERIOR FOOT-NEW DSG PLACED. +DOPPLER PULSES. EXTREMITIES COOL TO TOUCH. L HAND LARGE SCAB-? PREV BLOOS BLISTER-OPEN TO AIR AT THIS TIME. R HEEL NECROTIC-FLUFF DSG PLACED FOR COMFORT. R GURROLA ULCER NOTED-NEW XEROFORM DSG PLACED. CONT TO MONITOR CLOSELY. @0830-OBTAINED AM LABS VIA ULTRASOUND-SENT TO LAB AT THIS TIME.
--- NOTE | 2016-10-08 12:00 | NUR ---
@1100-BP 64/DOPPLER. REPORTED TO HOUSESTAFF-PT DENIES DIZZINESS. RESPONSIVE TO VERBAL STIM. NS 250ML BOLUS INFUSING ORD. PT TO RECIEVE IV KCL 10MEQ BOLUS X 2 FOR K+ 3.6 AND MAG BOLUS 1 GM X 2 BOLUSES FOR MAG 1.5. CONT TO MONITOR CLOSELY. CALL WAITE WITHIN REACH.
--- NOTE | 2016-10-08 14:06 | Cons- Endocrinology ---
General Information and HPI Consulting Request Date of Consult: 10/08/16 Requested By: ICU team Reason for Consult: management of adrenal insufficiency and DM Source of Information: family, old records Exam Limitations: no limitations History of Present Illness: Mr. Marvin is a 75-year-old gentleman with past medical history of DVT on Coumadin therapy, hypertension, diabetes, CKD stage V currently on hemodialysis, peripheral vascular disease, left lower extremity necrotizing nonhealing ulcers, history of cellulitis with Pseudomonas and Crohn's disease status post bowel resection and on chronic prednisone therapy, multiple admissions over past 2-3 months. He was just discharged several days ago after he was in hospital for aspiration pneumonia, presented with abdominal pain. CT showed portal venous gas in the liver. His family does not wish to pursue surgical intervention. Patient was hypotensive with SBP in the 60s. He has been on stress dose of hydrocortisone since admission. Patiet has been kept NPO and FSGs were 111, 109 and 150. He is on RISS every 6 hours. Allergies/Medications Allergies: Coded Allergies: Sulfa (Sulfonamide Antibiotics) (Mild, HIVES 06/15/16) Home Med List: Aspirin (Ecotrin*) 81 MG TABLET. 1 TAB PO QPM HEART HEALTH (Reported) Reason to Stop at ADM: high INR, risk for bleeding Atorvastatin Calcium 40 MG TABLET 1 TAB PO QPM CHOLESTEROL (Reported) Carvedilol (Coreg) 3.125 MG TABLET 6.25 MG PO BID high heart rate Reason to Stop at ADM: hypotensive Cholestyramine/Aspartame (Cholestyramine Light Packet) 4 GRAM POWD.PACK 1 PAC PO BID Malabsorption Ferrous Sulfate 325 MG (65 MG IRON) TABLET 1 TAB PO QPM SUPPLEMENT (Reported) Guaifenesin (Mucinex) 600 MG TAB.ER.12H 1 TAB PO BID cONGESTION Insulin Aspart (Novolog) 100 UNIT/ML VIAL 0 UNITS SC TIDAC Diabetes BEFORE MEALS Blood Insulin Sugar Units <80 Intiate hypoglycemia 80-150 2 151-200 3 201-250 4 251-300 5 301-350 6 351-400 7 >400 8 and Call Doctor AT BEDTIME Blood Insulin Sugar Units <80 Intiate hypoglycemia 81-150 0 151-200 0 201-250 0 251-300 0 301-350 2 351-400 2 >400 3 and Call Doctor Ofloxacin 0.3 % DROPS 1 GTT OT Q6 conjunctivitis Omeprazole 20 MG CAPSULE.DR 1 CAP PO DAILY GI (Reported) Prednisone 5 MG TABLET 1 TAB PO DAILY Crohns disease Sevelamer Carbonate (Renvela) 800 MG TABLET 1 TAB PO TIDWM KIDNEYS (Reported) RESTART WHEN PHOS LEVEL >3.5 Sodium Chloride (Saline Nasal [place]) 0.65 % SPRAY 1 SPRAY NASB 4 TIMES/DAY PRN dRY NOSE Warfarin Sodium (Coumadin) 1 MG TABLET 1 TAB PO Q48 BLOOD THINNER (Reported) Reason to Stop at ADM:supratherapeutic INR. Please monitor his INR regularly in the setting of multiple fluctations Review of Systems Review of Systems Constitutional: Reports: see HPI. Cardiovascular: Denies: chest pain. Respiratory: Denies: short of breath. GI: Reports: abdominal pain. Hematologic/Endocrine: Denies: polyuria, polydipsia. 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 Assisted Facility Who Do You Live With? spouse Services at Home: None Primary Language: Georgian Smoking Status: Former Smoker Functional Ability ADLs Independent: dressing, eating, toileting, bathing. Ambulation: walker IADLs Needs Assist: shopping, housework, finances, food prep, telephone, transportation, medication admin. Exam & Diagnostic Data Last 24 Hrs of Vital Signs/I&O Vital Signs Date Time Temp Pulse Resp B/P Pulse O2 O2 Flow FiO2 Ox Delivery Rate 10/08 1200 92 Nasal 3.0L Cannula 10/08 0800 96.4 83 12 80/0 94 Nasal 3.0L Cannula 10/08 0800 91 Nasal 3.0L Cannula 10/08 0600 91 Nasal 3.0L Cannula 10/08 0514 Nasal 3.0L Cannula 10/08 0409 97 22 83/52 Nasal 3.0L Cannula 10/08 0355 110 22 87/57 91 Nasal 3.0L Cannula 10/08 0320 95 22 62/46 90 Room Air 10/07 2339 96 Room Air 10/07 2320 98.2 77 20 123/55 95 Room Air Intake & Output 10/08 1600 10/08 0800 10/08 0000 Intake Total 500 Output Total 0 Balance 500 Intake, IV 500 Output, Urine 0 Patient 147 lb 200 lb Weight Physical Exam General Appearance: lethargic Neck: normal inspection Respiratory: decreased breath sounds Cardiovascular: regular rate/rhythm Gastrointestinal: tenderness Extremities: chronic skin lesions Labs/[place] Results: Laboratory Tests 10/08 10/08 10/08 0847 0847 0145 Chemistry Sodium (137 - 145 mmol/L) 141 Potassium (3.5 - 5.1 mmol/L) 3.6 Chloride (98 - 107 mmol/L) 110 H Carbon Dioxide (22 - 30 mmol/L) 24 Anion Gap (5 - 16) 7 BUN (9 - 20 mg/dL) 6 L Creatinine (0.7 - 1.2 mg/dL) 1.9 H Estimated GFR (>60 ml/min) 35 L Glucose (65 - 99 mg/dL) 175 H Lactic Acid (0.7 - 2.1 mmol/L) 1.5 Cancelled Calcium (8.4 - 10.2 mg/dL) 7.2 L Phosphorus (2.5 - 4.5 mg/dL) 2.5 Magnesium (1.6 - 2.3 mg/dL) 1.5 L Total Bilirubin (0.2 - 1.3 mg/dL) 0.2 AST (17 - 59 U/L) 14 L ALT (21 - 72 U/L) 30 Albumin (3.5 - 5.0 g/dL) 1.4 L Coagulation PT (9.4 - 12.5 SEC) 50.5 *H INR (0.90 - 1.17) 4.89 *H Hematology CBC w Diff MAN DIFF ORDERED WBC (4.8 - 10.8 /CUMM) 9.4 RBC (4.70 - 6.10 /CUMM) 3.29 L Hgb (14.0 - 18.0 G/DL) 9.4 L Hct (42 - 52 %) 30.9 L MCV (80.0 - 94.0 FL) 94.0 MCH (27.0 - 31.0 PG) 28.7 RDW (11.5 - 14.5 %) 22.8 H Plt Count (130 - 400 /CUMM) 208 MPV (7.4 - 10.4 FL) 9.2 Gran % (42.2 - 75.2 %) 86.7 H Lymphocytes % (20.5 - 51.1 %) 3.4 L Monocytes % (1.7 - 9.3 %) 9.9 H Eosinophils % (0 - 5 %) 0 Basophils % (0.0 - 2.0 %) 0 L Absolute Granulocytes (1.4 - 6.5 /CUMM) 8.1 H Segmented Neutrophils (42.2 - 75.2 %) 67 Band Neutrophils (0.0 - 5.0 %) 23 H Absolute Lymphocytes (1.2 - 3.4 /CUMM) 0.3 L Lymphocytes (20.5 - 51.1 %) 4 L Monocytes (1.7 - 9.3 %) 6 Absolute Monocytes (0.10 - 0.60 /CUMM) 0.9 H Absolute Eosinophils (0.0 - 0.7 /CUMM) 0 Absolute Basophils (0.0 - 0.2 /CUMM) 0 Platelet Estimate (ADEQUATE) VERIFIED BY SMEAR Polychromasia 1+ Poikilocytosis 1+ Anisocytosis 1+ Ovalocytes 1+ PUBS MCHC (33.0 - 37.0 G/DL) 30.5 L 10/07 2305 Chemistry Sodium (137 - 145 mmol/L) 135 L Potassium (3.5 - 5.1 mmol/L) 3.7 Chloride (98 - 107 mmol/L) 102 Carbon Dioxide (22 - 30 mmol/L) 26 Anion Gap (5 - 16) 6 BUN (9 - 20 mg/dL) 5 L Creatinine (0.7 - 1.2 mg/dL) 1.7 H Estimated GFR (>60 ml/min) 40 L BUN/Creatinine Ratio (7 - 25 %) 2.9 L Glucose (65 - 99 mg/dL) 109 H Lactic Acid (0.7 - 2.1 mmol/L) 1.7 Calcium (8.4 - 10.2 mg/dL) 7.9 L Total Bilirubin (0.2 - 1.3 mg/dL) 0.4 AST (17 - 59 U/L) 21 ALT (21 - 72 U/L) 28 Alkaline Phosphatase (< 127 U/L) 149 H Total Protein (6.3 - 8.2 g/dL) 5.1 L Albumin (3.5 - 5.0 g/dL) 1.9 L Globulin (1.9 - 4.2 gm/dL) 3.2 Albumin/Globulin Ratio (1.1 - 2.2 %) 0.6 L Coagulation PT (9.4 - 12.5 SEC) 44.9 *H INR (0.90 - 1.17) 4.34 *H APTT (25 - 37 SEC) 82 H Hematology CBC w Diff NO MAN DIFF REQ WBC (4.8 - 10.8 /CUMM) 11.8 H RBC (4.70 - 6.10 /CUMM) 3.55 L Hgb (14.0 - 18.0 G/DL) 10.1 L Hct (42 - 52 %) 33.3 L MCV (80.0 - 94.0 FL) 93.9 MCH (27.0 - 31.0 PG) 28.5 RDW (11.5 - 14.5 %) 23.2 H Plt Count (130 - 400 /CUMM) 265 MPV (7.4 - 10.4 FL) 9.4 Gran % (42.2 - 75.2 %) 87.9 H Lymphocytes % (20.5 - 51.1 %) 7.7 L Monocytes % (1.7 - 9.3 %) 3.9 Eosinophils % (0 - 5 %) 0.1 Basophils % (0.0 - 2.0 %) 0.4 Absolute Granulocytes (1.4 - 6.5 /CUMM) 10.4 H Absolute Lymphocytes (1.2 - 3.4 /CUMM) 0.9 L Absolute Monocytes (0.10 - 0.60 /CUMM) 0.5 Absolute Eosinophils (0.0 - 0.7 /CUMM) 0 Absolute Basophils (0.0 - 0.2 /CUMM) 0 PUBS MCHC (33.0 - 37.0 G/DL) 30.3 L Assessment/Plan Assessment/Plan 75yo male with multiple medical problems including renal failure on dialysis, crohns disease, adrenal insufficiency, diabetes and PVD with left lower extremity necrotizing nonhealing ulcers, and aspiration pneumonia, was admitted for abdominal pain. CT scan showed portal venous gas in the liver. His family does not wish to pursue surgical intervention. Currently he is NPO, on metronidazole and Ceftriaxone. Patient was hypotensive with SBP in the 60s. He has been on stress dose of hydrocortisone since admission. His FSGs were 111, 109 and 150. Plan: 1. adrenal insufficiency ---continue hydrocortisone 100 mg iv every 6 hours for now; ---monitor BP and electrolytes; 2. DM ---d/c RISS every 6 hours; ---start Novolog coverage every 4 hours-- detail see the inpatient DM order ---monitor FSGs 3. continue other supportive management. will follow. Inpatient Diabetes Orders Every 4 Hours: Bolus Insulin: Novolog < 80 mg/dl: no coverage 80-100 mg/dl: no coverage 101-120 mg/dl: no coverage 121-150 mg/dl: no coverage 151-200 mg/dl: no coverage 201-250 mg/dl: 2 units 251-300 mg/dl: 4 units 301-350 mg/dl: 6 units 351-400 mg/dl: 8 units > 400 mg/dl: 10 units Consult Acknowledgment - Thank you for your consult request.
--- NOTE | 2016-10-08 14:29 | NUR ---
@1400-PT REMAINS HYPOTENSIVE. AT BEDSIDE, DISCUSSING POC WITH . PT MEDICATED WITH INCREASED DOSE OF SOLUCORTEF. PT RECIEVED TOTAL OF 2 BOLUSES OF POTASSIUM AND 2 BOLUSES OF MAG. CONT TO MONITOR CLOSELY WITH NO AGGRESSIVE MEASURES PER . MEDICATED WITH 1X MORPHINE AT 1230-PT COMFORTABLE AT THIS TIME.
[2016-10-08 16:00] VITALS: BP 78/0
--- NOTE | 2016-10-08 19:21 | NUR ---
@1915-PT INC OF LARGE AMT OF RED LIQ STOOL. STOOL CX SENT. REPORTED TO HOUSESTAFF. CONT TO MONITOR.
[2016-10-08 21:07] LABS: ABSOLUTE BASOPHIL COUNT 0 /CUMM (0.0-0.2); ABSOLUTE EOSINOPHIL COUNT 0 /CUMM (0.0-0.7); ABSOLUTE GRANULOCYTE CT 8.1 /CUMM (1.4-6.5); ABSOLUTE LYMPH COUNT 0.4 /CUMM (1.2-3.4); ABSOLUTE MONOCYTE COUNT 0.9 /CUMM (0.10-0.60); BASOPHIL % 0.1 % (0.0-2.0); EOSINOPHIL % 0 % (0-5); HEMATOCRIT 33.9 % (42-52); MEAN CORPUSCULAR HGB 28.6 PG (27.0-31.0); MEAN CORPUSCULAR HGB CONC 30.4 G/DL (33.0-37.0); MEAN PLATELET VOLUME 9.9 FL (7.4-10.4); PLATELET COUNT 213 /CUMM (130-400); RBC DISTRIBUTION WIDTH 23.5 % (11.5-14.5); RED BLOOD CELL CT 3.61 /CUMM (4.70-6.10); WHITE BLOOD CELL COUNT 9.4 /CUMM (4.8-10.8)
[2016-10-08 23:00] VITALS: BP 55/37
[2016-10-09 07:00] VITALS: BP 132/70
[2016-10-09 07:07] LABS: ABSOLUTE BASOPHIL COUNT 0 /CUMM (0.0-0.2); ABSOLUTE EOSINOPHIL COUNT 0 /CUMM (0.0-0.7); ABSOLUTE GRANULOCYTE CT 6.1 /CUMM (1.4-6.5); ABSOLUTE LYMPH COUNT 0.4 /CUMM (1.2-3.4); ABSOLUTE MONOCYTE COUNT 0.7 /CUMM (0.10-0.60); BASOPHIL % 0 % (0.0-2.0); EOSINOPHIL % 0 % (0-5); GRANULOCYTE % 85.1 % (42.2-75.2); MEAN CORPUSCULAR HGB 29.5 PG (27.0-31.0); MEAN PLATELET VOLUME 10.9 FL (7.4-10.4); PLATELET COUNT 172 /CUMM (130-400); RED BLOOD CELL CT 3.15 /CUMM (4.70-6.10); WHITE BLOOD CELL COUNT 7.2 /CUMM (4.8-10.8)
--- NOTE | 2016-10-09 07:25 | PN- Resident CRCU ---
Subjective HPI/CRCU Issues: Patient seen and examined this morning. He was lying in bed in mild distress secondary to abdominal pain, yesterday had an episode of bloody bowel movement, his systolic blood pressure has been around 66-72 mmHg, had a discussion with she remains severely patient condition and prognosis remains poor, both and have denied any further diagnostic or therapeutic intervention for abdominal pain at this time. Objective Vital Signs & I&O Last 8 Hrs of Vitals and I&O: Laboratory Tests 10/09/16 0515: PT 55.0 *H, INR 5.33 *H, CBC w Diff MAN DIFF ORDERED, RBC 3.15 L, MCV 95.0 H, MCH 29.5, RDW 24.0 H, MPV 10.9 H, Gran % 85.1 H, Lymphocytes % 5.2 L, Monocytes % 9.7 H, Eosinophils % 0, Basophils % 0 L, Absolute Granulocytes 6.1 , Segmented Neutrophils 58, Band Neutrophils 22 H, Absolute Lymphocytes 0.4 L, Lymphocytes 9 L, Monocytes 9, Absolute Monocytes 0.7 H, Absolute Eosinophils 0 , Absolute Basophils 0, Metamyelocytes 2 H, Nucleated RBCs 5 H, Platelet Estimate ADEQUATE, Polychromasia 1+, Hypochromic-Microcytic 1+, Poikilocytosis 1 +, Anisocytosis 1+, Ovalocytes 1+, PUBS MCHC 31.0 L, Fld Total RBCs Counted 100 10/08/162044: CBC w Diff NO MAN DIFF REQ, RBC 3.61 L, MCV 94.0, MCH 28.6, RDW 23.5 H, MPV 9.9, Gran % 86.0 H, Lymphocytes % 4.7 L, Monocytes % 9.2, Eosinophils % 0, Basophils % 0.1, Absolute Granulocytes 8.1 H, Absolute Lymphocytes 0.4 L, Absolute Monocytes 0.9 H, Absolute Eosinophils 0, Absolute Basophils 0, PUBS MCHC 30.4 L Microbiology 10/09 829 STOOL: Cryptosporidium Antigen - RECD 10/09 829 STOOL: Giardia Antigen (POLO) - RECD 10/08 1916 STOOL: Clostridium difficile Toxin A & B - RES 10/08 1916 STOOL: Stool Culture - RES Vital Signs Date Time Temp Pulse Resp B/P Pulse O2 O2 Flow FiO2 Ox Delivery Rate 10/09 0700 108 35 132/70 98 Venti Mask 45% 10/09 0400 91 Nasal 3.0L Cannula 10/09 0000 90 Nasal 3.0L Cannula 10/08 2300 96.8 72 15 55/37 91 Nasal 3.0L Cannula 10/08 2000 91 Nasal 3.0L Cannula 10/08 1600 Nasal 3.0L Cannula 10/08 1600 96.1 71 19 78/0 Nasal 3.0L Cannula 10/08 1200 92 Nasal 3.0L Cannula Intake & Output 10/09 1600 10/09 0800 10/09 0000 Intake Total 757 775 Output Total 0 0 Balance 757 775 Intake, IV 757 775 Intake, Oral 0 0 Number 1 2 Bowel Movements Output, Urine 0 0 Exam General Appearance: lethargic, mild distress Head: atraumatic, normal appearance Respiratory: normal breath sounds Cardiovascular: regular rate/rhythm Gastrointestinal: patchy abdominal tendrness Extremities: LLE non healing ulcer Current Medications: Current Medications Sig/Kailash Start time Last Medication Dose Route Stop Time Status Admin Artificial Tears 2 GTT TID 10/08 0407 AC 10/08 OPH 2256 Ceftriaxone Sodium 1,000 MG Q24H 10/09 0400 AC 10/09 IV 0342 Dextrose/Sodium 1,000 ML Q13H 10/08 0600 AC 10/09 Chloride IV 0828 Hydrocortisone 100 MG Q6H 10/08 1400 AC 10/09 Sodium Succinate IV 0828 Hydrocortisone 50 MG ONE ONE 10/08 1245 DC 10/08 Sodium Succinate IV 10/08 1246 1242 Hydrocortisone 50 MG Q6H 10/08 0800 DC 10/08 Sodium Succinate IV 0804 Insulin Aspart 0 Q4 10/08 1800 SC Insulin Human Regular 0 Q6 10/08 0600 DC 10/08 SC 1228 Magnesium Sulfate 1 GM Q2H 10/08 1115 DC 10/08 Dextrose/Water 100 ML IV 10/08 1514 1420 Metronidazole 500 MG Q8H 10/08 1200 AC 10/09 N/A 1 UNIT IV 0334 Morphine Sulfate 1 MG ONCE ONE 10/08 1245 DC 10/08 IV 10/08 1246 1242 Potassium Chloride 10 MEQ Q1H 10/08 1115 DC 10/08 IV 10/08 1216 1228 Sodium Chloride 250 ML BOLUS ONE 10/08 1115 DC 10/08 IV 10/08 1214 1115 Impression/Plan Impression/Problem List Impression: 75-year-old man with multiple medical problems and multiple recent hospital admissions requiring intensive care evaluation brought in by ambulance for evaluation of persistent/worsening abdominal pain over the past 2 days. ED course: -Vitals: Temp 98.2, HR 95-110, RR 20-22, BP 62-1-3/46-57, 02 90-95% he 3.0 L supplemental oxygen via nasal cannula -Significant Labs: CBC 11.8, Hgb/HCT 10.1/33.3, PLT 265, sodium 135, BUN/ creatinine 5/1.7, lactic acid 1.7, calcium 7.9, total bilirubin 0.4, AST/ALT 21/ 28 alkaline phosphatase 149, PT 44.9, INR 4.34 -Studies: CT abdomen/pelvis-new presence of portal venous gas most prominently in the left lobe of the liver EKG-NSR with RBBB and prolonged QTC interval with T-wave flattening in V1-4 -Interventions: Ceftriaxone 1 g IV, Metronidazole 500 mg IV, normal saline 500 mL IV, Zofran 4 mg IV, morphine sulfate 2 mg IV, Solu-Cortef 100 mg IV, general surgery consult ED attending placed general surgery consult with Dr. Yost, whom stated he would be in to evaluate the patient. Patient's was contacted in regards to the patient's current clinical condition and it was decided that given patient's frail state and extensive recent medical problems it would not be best wishes to pursue any kind of surgical intervention should he possibly be a candidate. It was also further clarified with the patient's that patient will be monitored in the intensive care unit, however intervention such as central lines , vasopressors, or aggressive heroic measures should not be applied to patients care. Respiratory: Satting in the 90s on 3 L of nasal cannula oxygen. Infectious disease: Abdominal pain: Patient presented with persistent/worsening abdominal pain after hemodialysis. CT scan of the abdomen demonstrated finding of portal venous gas in the liver likely secondary to mesenteric ischemia, likely no secondary findings of an ischemic segment of bowel on CT also no evidence of peritonitis. Surgery was contacted but since the family did not wish to pursue any surgical intervention at this point no further interventions were done. Patient started on ceftriaxone and Metronidazole 500 mg IV daily, Stool C. difficile toxin, Giardia /cryptosporidium antigen ordered will follow-up. Patient had an episode of bloody bowel movement last night and this morning. #Cardiovascular: Hypotension; Blood pressure upon presentation was 123/55, which has been running low ever since ranging 66-72 minutes of mercury systolic. Currently we're giving him IV fluids cautiously to keep systolic blood pressure greater than 90, will continue with home dose of Solu-Cortef, No central line/vasopressors as per patient family wishes Currently receiving normal saline at 75 mL per hour, will give boluses as required cautiously. History of atrial fibrillation EKG demonstrates normal sinus rhythm on initial evaluation. -Telemetry -INR supratherapeutic, holding off of Coumadin today #Metabolic: Adrenal insufficiency: Patient has history of Crohn's disease, adrenal insufficiency for which he has been on chronic steroids. Blood pressure upon presentation was 123/55, which has been running low ever since Currently we're giving him IV fluids cautiously to keep systolic blood pressure greater than 90, will continue with home dose of Solu-Cortef, No central line/ vasopressors as per patient family wishes Insulin-dependent diabetes mellitus -Accu-Cheks 3 times a day before meals/at bedtime -Hold oral hypoglycemics -NovoLog sliding scale insulin -Endocrinology on board will follow-up recommendations. #Renal : ESRD on HD Patient with extensive cardiovascular disease and known end-stage renal disease attending regular dialysis sessions. -Avoid nephrotoxic medications such as NSAIDs -Hemodialysis tomorrow. Chronic bilateral lower extremity ulcer: daily dressings as per phoned care consult Pain plan-acetaminophen Diet-nothing by mouth pending a swallow bowel DVT prophylaxis-on anticoagulation CODE STATUS-DO NOT RESUSCITATE/DO NOT INTUBATE, no central line, no vasopressors , no feeding tube no aggressive measures Problem List: 1. ESRD (end stage renal disease) on dialysis 2. Supratherapeutic INR 3. Diabetes mellitus 4. Anemia Pain Ratin Pain Location: Abdomen Pain Goal: Remain pain free Tomorrow's Labs & Rationales: inr for Coumadin dose CBC for H&H monitoring Plan DVT/Prophylaxis: pharmacological Code Status: Do Not Resucitate/Intubat
--- NOTE | 2016-10-09 07:26 | NUR ---
PATIENT ARRIVED FROM ED AT 2200 VIA STRETCHER ACCOMPANIED BY ER STAFF. TRANSFER TO ICU BED AND HOOKED UP TO MONITOR PATIENT IS A/O MOVES ALL THE LIMBS, PERRLA, FOLLOWS COMMANDS, COMPALIN OF BACK PAIN, ANALGESIC GIVEN PER eMAR. AFEBRILE, ON SINUS TACHYCARDIA, HR 120'S TO 130'S, BP IS STABLE AT 120'S TO 130'S, HAS GAUGE 20 IV ACCES PERIPHERAL LINE AT RIGHT AC WITH GOOD BACK FLOW, RUNNING WITH WITH D5% 1/2 N/S AT 75 CC/HR. BREATHING WITH BiPAP AT 45%, TACHYNEA, RR AT 30'S TO 40'S, NOTED WITH EXPIRATORY WHEEZING, O2SAT AT 96 TO 99 %. ABDOMEN IS SOFT, GOOD BOWEL SOUNDS, NPO. HAD LIQUID, DARK YELLOW BOWEL MOVEMENT AT 0630 AM, SISSY ANAL CARE DONE WITH FEMALE COLLEAGUES BLADDER IS NOT DISTENDED, ABLE TO VOID SPONTANEOUSLY IN GOOD AMOUNT. SKIN IS INTACT. AT 0200, WENT DOWN TO RADIOLOGY FRON CT SCAN OF CHEST, NO PE. AT 0230, WENT BACK TO ICU, UNEVENTFUL. VS STABLE.
[2016-10-09 08:00] VITALS: BP 68/0
--- NOTE | 2016-10-09 09:21 | Cons- Nephrology ---
General Information and HPI Consulting Request Date of Consult: 10/09/16 Requested By: DEBBIE SPENCER MD Reason for Consult: Evaluation and management of end-stage renal disease Source of Information: old records Exam Limitations: unable to give history, not alert/orientated History of Present Illness: This 75-year-old gentleman was brought to [facility] emergency room on Friday because of abdominal pain which started at dialysis on Friday and persisted 1 mL left dialysis. He was found to have a suggestion of air in the portal vein. He is been seen by surgery. He has limitations of care. At this point, he cannot give me a history. Unfortunately his is out of the room at this time. Allergies/Medications Allergies: Coded Allergies: Sulfa (Sulfonamide Antibiotics) (Mild, HIVES 06/15/16) Home Med List: Aspirin (Ecotrin*) 81 MG TABLET.DR 1 TAB PO QPM HEART HEALTH (Reported) Reason to Stop at ADM: high INR, risk for bleeding Atorvastatin Calcium 40 MG TABLET 1 TAB PO QPM CHOLESTEROL (Reported) Carvedilol (Coreg) 3.125 MG TABLET 6.25 MG PO BID high heart rate Reason to Stop at ADM: hypotensive Cholestyramine/Aspartame (Cholestyramine Light Packet) 4 GRAM POWD.PACK 1 PAC PO BID Malabsorption Ferrous Sulfate 325 MG (65 MG IRON) TABLET 1 TAB PO QPM SUPPLEMENT (Reported) Guaifenesin (Mucinex) 600 MG TAB.ER.12H 1 TAB PO BID cONGESTION Insulin Aspart (Novolog) 100 UNIT/ML VIAL 0 UNITS SC TIDAC Diabetes BEFORE MEALS Blood Insulin Sugar Units <80 Intiate hypoglycemia 80-150 2 151-200 3 201-250 4 251-300 5 301-350 6 351-400 7 >400 8 and Call Doctor AT BEDTIME Blood Insulin Sugar Units <80 Intiate hypoglycemia 81-150 0 151-200 0 201-250 0 251-300 0 301-350 2 351-400 2 >400 3 and Call Doctor Ofloxacin 0.3 % DROPS 1 GTT OT Q6 conjunctivitis Omeprazole 20 MG CAPSULE.DR 1 CAP PO DAILY GI (Reported) Prednisone 5 MG TABLET 1 TAB PO DAILY Crohns disease Sevelamer Carbonate (Renvela) 800 MG TABLET 1 TAB PO TIDWM KIDNEYS (Reported) RESTART WHEN PHOS LEVEL >3.5 Sodium Chloride (Saline Nasal [place]) 0.65 % SPRAY 1 SPRAY NASB 4 TIMES/DAY PRN dRY NOSE Warfarin Sodium (Coumadin) 1 MG TABLET 1 TAB PO Q48 BLOOD THINNER (Reported) Reason to Stop at ADM:supratherapeutic INR. Please monitor his INR regularly in the setting of multiple fluctations Current Medications: Current Medications Sig/Kailash Start time Last Medication Dose Route Stop Time Status Admin Artificial Tears 2 GTT TID 10/08 0407 AC 10/08 OPH 2256 Ceftriaxone Sodium 1,000 MG Q24H 10/09 0400 AC 10/09 IV 0342 Dextrose/Sodium 1,000 ML Q13H 10/08 0600 AC 10/09 Chloride IV 0828 Hydrocortisone 100 MG Q6H 10/08 1400 AC 10/09 Sodium Succinate IV 0828 Hydrocortisone 50 MG ONE ONE 10/08 1245 DC 10/08 Sodium Succinate IV 10/08 1246 1242 Hydrocortisone 50 MG Q6H 10/08 0800 DC 10/08 Sodium Succinate IV 0804 Insulin Aspart 0 Q4 10/08 1800 AC SC Insulin Human Regular 0 Q6 10/08 0600 DC 10/08 SC 1228 Magnesium Sulfate 1 GM Q2H 10/08 1115 DC 10/08 Dextrose/Water 100 ML IV 10/08 1514 1420 Metronidazole 500 MG Q8H 10/08 1200 AC 10/09 N/A 1 UNIT IV 0334 Morphine Sulfate 1 MG ONCE ONE 10/08 1245 DC 10/08 IV 10/08 1246 1242 Potassium Chloride 10 MEQ Q1H 10/08 1115 DC 10/08 IV 10/08 1216 1228 Sodium Chloride 250 ML BOLUS ONE 10/08 1115 DC 10/08 IV 10/08 1214 1115 Review of Systems Review of Systems: Unobtainable Past History Travel History Traveled to [place] past 21 day No Medical History Blood Transfusion Hx: Yes Neurological: NONE EENT: NONE Cardiovascular: AFIB, PVD, DVT Respiratory: pneumonia Gastrointestinal: Crohn's disease Hepatic: NONE Renal: ESRD on HD, nephrolithiasis, CKD Musculoskeletal: 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 Psychiatric: NONE Endocrine: diabetes, suspected adrenal insufficiency Blood Disorders: anemia, coagulopathy, DVT (RUE and RLE), antiphosphlipid syndrome Cancer(s): NONE CATH LAB NURSE/Reproductive: NONE Surgical History Surgical History: colon resection, knee replacement (left), LEFT HIP ORIF status post right leg bypass status post right patellar ORIF status post right TMA status post lithotripsy and stent placements, Mj catheter placement, left arm aVF, skin biopsies and debridements Family History Relations & Conditions If Any: FATHER Antiphospholipid syndrome FH: diabetes mellitus MOTHER FH: Crohn's disease Psychosocial History Where Do You Live? [facility] Who Do You Live With? spouse Services at Home: None Primary Language: Beninese Smoking Status: Former Smoker Functional Ability ADLs Independent: dressing, eating, toileting, bathing. Ambulation: walker IADLs Needs Assist: shopping, housework, finances, food prep, telephone, transportation, medication admin. Exam & Diagnostic Data Vital Signs and I&O Vital Signs Date Time Temp Pulse Resp B/P Pulse O2 O2 Flow FiO2 Ox Delivery Rate 10/09 0700 108 35 132/70 98 Venti Mask 45% 10/09 0400 91 Nasal 3.0L Cannula 10/09 0000 90 Nasal 3.0L Cannula 10/08 2300 96.8 72 15 55/37 91 Nasal 3.0L Cannula 10/08 2000 91 Nasal 3.0L Cannula 10/08 1600 Nasal 3.0L Cannula 10/08 1600 96.1 71 19 78/0 Nasal 3.0L Cannula 10/08 1200 92 Nasal 3.0L Cannula Intake & Output 10/09 1600 10/09 0400 10/08 1600 10/08 0400 10/07 1600 10/07 0400 Intake Total 027 787 4361 Output Total 0 0 0 Balance 409 325 5896 Intake, IV 043 156 1230 Intake, Oral 0 0 0 Number 1 2 1 Bowel Movements Output, Urine 0 0 0 Patient 147 lb 200 lb Weight Physical Exam General Appearance: well developed/nourished, no apparent distress, lethargic Head: atraumatic, normal appearance Eyes: Bilateral: PERRL, EOMI. Neck: normal inspection, supple Respiratory: normal breath sounds, chest non-tender Cardiovascular: regular rate/rhythm, edema, gallop Peripheral Pulses: 0 tibialis posterior (R), 0 tibialis posterior (L), 0 dorsalis pedis (R), 0 dorsalis pedis (L) Gastrointestinal: normal bowel sounds Extremities: no edema, mottled. He has ulcers on his legs which are bandaged Neurologic/Psych: disoriented x 3 Results Pertinent Lab Results: Laboratory Tests 10/09 10/08 6421 8245 Coagulation PT (9.4 - 12.5 SEC) 55.0 *H INR (0.90 - 1.17) 5.33 *H Hematology CBC w Diff MAN DIFF ORDERED NO MAN DIFF REQ WBC (4.8 - 10.8 /CUMM) 7.2 9.4 RBC (4.70 - 6.10 /CUMM) 3.15 L 3.61 L Hgb (14.0 - 18.0 G/DL) 9.3 L 10.3 L Hct (42 - 52 %) 30.0 L 33.9 L MCV (80.0 - 94.0 FL) 95.0 H 94.0 MCH (27.0 - 31.0 PG) 29.5 28.6 RDW (11.5 - 14.5 %) 24.0 H 23.5 H Plt Count (130 - 400 /CUMM) 172 213 MPV (7.4 - 10.4 FL) 10.9 H 9.9 Gran % (42.2 - 75.2 %) 85.1 H 86.0 H Lymphocytes % (20.5 - 51.1 %) 5.2 L 4.7 L Monocytes % (1.7 - 9.3 %) 9.7 H 9.2 Eosinophils % (0 - 5 %) 0 0 Basophils % (0.0 - 2.0 %) 0 L 0.1 Absolute Granulocytes (1.4 - 6.5 /CUMM) 6.1 8.1 H Segmented Neutrophils (42.2 - 75.2 %) 58 Band Neutrophils (0.0 - 5.0 %) 22 H Absolute Lymphocytes (1.2 - 3.4 /CUMM) 0.4 L 0.4 L Lymphocytes (20.5 - 51.1 %) 9 L Monocytes (1.7 - 9.3 %) 9 Absolute Monocytes (0.10 - 0.60 /CUMM) 0.7 H 0.9 H Absolute Eosinophils (0.0 - 0.7 /CUMM) 0 0 Absolute Basophils (0.0 - 0.2 /CUMM) 0 0 Metamyelocytes (0.0 - 1.0 %) 2 H Nucleated RBCs (0.0 - 0.0 /100WBC) 5 H Platelet Estimate (ADEQUATE) ADEQUATE Polychromasia 1+ Hypochromic-Microcytic 1+ Poikilocytosis 1+ Anisocytosis 1+ Ovalocytes 1+ PUBS MCHC (33.0 - 37.0 G/DL) 31.0 L 30.4 L Other Body Source Fld Total RBCs Counted (%) 100 10/08 10/08 10/08 8123 0811 014 Chemistry Sodium (137 - 145 mmol/L) 141 Potassium (3.5 - 5.1 mmol/L) 3.6 Chloride (98 - 107 mmol/L) 110 H Carbon Dioxide (22 - 30 mmol/L) 24 Anion Gap (5 - 16) 7 BUN (9 - 20 mg/dL) 6 L Creatinine (0.7 - 1.2 mg/dL) 1.9 H Estimated GFR (>60 ml/min) 35 L Glucose (65 - 99 mg/dL) 175 H Lactic Acid (0.7 - 2.1 mmol/L) 1.5 Cancelled Calcium (8.4 - 10.2 mg/dL) 7.2 L Phosphorus (2.5 - 4.5 mg/dL) 2.5 Magnesium (1.6 - 2.3 mg/dL) 1.5 L Total Bilirubin (0.2 - 1.3 mg/dL) 0.2 AST (17 - 59 U/L) 14 L ALT (21 - 72 U/L) 30 Albumin (3.5 - 5.0 g/dL) 1.4 L Coagulation PT (9.4 - 12.5 SEC) 50.5 *H INR (0.90 - 1.17) 4.89 *H Hematology CBC w Diff MAN DIFF ORDERED WBC (4.8 - 10.8 /CUMM) 9.4 RBC (4.70 - 6.10 /CUMM) 3.29 L Hgb (14.0 - 18.0 G/DL) 9.4 L Hct (42 - 52 %) 30.9 L MCV (80.0 - 94.0 FL) 94.0 MCH (27.0 - 31.0 PG) 28.7 RDW (11.5 - 14.5 %) 22.8 H Plt Count (130 - 400 /CUMM) 208 MPV (7.4 - 10.4 FL) 9.2 Gran % (42.2 - 75.2 %) 86.7 H Lymphocytes % (20.5 - 51.1 %) 3.4 L Monocytes % (1.7 - 9.3 %) 9.9 H Eosinophils % (0 - 5 %) 0 Basophils % (0.0 - 2.0 %) 0 L Absolute Granulocytes (1.4 - 6.5 /CUMM) 8.1 H Segmented Neutrophils (42.2 - 75.2 %) 67 Band Neutrophils (0.0 - 5.0 %) 23 H Absolute Lymphocytes (1.2 - 3.4 /CUMM) 0.3 L Lymphocytes (20.5 - 51.1 %) 4 L Monocytes (1.7 - 9.3 %) 6 Absolute Monocytes (0.10 - 0.60 /CUMM) 0.9 H Absolute Eosinophils (0.0 - 0.7 /CUMM) 0 Absolute Basophils (0.0 - 0.2 /CUMM) 0 Platelet Estimate (ADEQUATE) VERIFIED BY SMEAR Polychromasia 1+ Poikilocytosis 1+ Anisocytosis 1+ Ovalocytes 1+ PUBS MCHC (33.0 - 37.0 G/DL) 30.5 L 10/07 2305 Chemistry Sodium (137 - 145 mmol/L) 135 L Potassium (3.5 - 5.1 mmol/L) 3.7 Chloride (98 - 107 mmol/L) 102 Carbon Dioxide (22 - 30 mmol/L) 26 Anion Gap (5 - 16) 6 BUN (9 - 20 mg/dL) 5 L Creatinine (0.7 - 1.2 mg/dL) 1.7 H Estimated GFR (>60 ml/min) 40 L BUN/Creatinine Ratio (7 - 25 %) 2.9 L Glucose (65 - 99 mg/dL) 109 H Lactic Acid (0.7 - 2.1 mmol/L) 1.7 Calcium (8.4 - 10.2 mg/dL) 7.9 L Total Bilirubin (0.2 - 1.3 mg/dL) 0.4 AST (17 - 59 U/L) 21 ALT (21 - 72 U/L) 28 Alkaline Phosphatase (< 127 U/L) 149 H Total Protein (6.3 - 8.2 g/dL) 5.1 L Albumin (3.5 - 5.0 g/dL) 1.9 L Globulin (1.9 - 4.2 gm/dL) 3.2 Albumin/Globulin Ratio (1.1 - 2.2 %) 0.6 L Coagulation PT (9.4 - 12.5 SEC) 44.9 *H INR (0.90 - 1.17) 4.34 *H APTT (25 - 37 SEC) 82 H Hematology CBC w Diff NO MAN DIFF REQ WBC (4.8 - 10.8 /CUMM) 11.8 H RBC (4.70 - 6.10 /CUMM) 3.55 L Hgb (14.0 - 18.0 G/DL) 10.1 L Hct (42 - 52 %) 33.3 L MCV (80.0 - 94.0 FL) 93.9 MCH (27.0 - 31.0 PG) 28.5 RDW (11.5 - 14.5 %) 23.2 H Plt Count (130 - 400 /CUMM) 265 MPV (7.4 - 10.4 FL) 9.4 Gran % (42.2 - 75.2 %) 87.9 H Lymphocytes % (20.5 - 51.1 %) 7.7 L Monocytes % (1.7 - 9.3 %) 3.9 Eosinophils % (0 - 5 %) 0.1 Basophils % (0.0 - 2.0 %) 0.4 Absolute Granulocytes (1.4 - 6.5 /CUMM) 10.4 H Absolute Lymphocytes (1.2 - 3.4 /CUMM) 0.9 L Absolute Monocytes (0.10 - 0.60 /CUMM) 0.5 Absolute Eosinophils (0.0 - 0.7 /CUMM) 0 Absolute Basophils (0.0 - 0.2 /CUMM) 0 PUBS MCHC (33.0 - 37.0 G/DL) 30.3 L Imaging/Other Studies: PATIENT: BENJAMIN SMITH PRESENT AGE: 75 PATIENT ACCOUNT NO: [id number] : 41 LOCATION: [facility] ORDERING PHYSICIAN: ANITA HARRIS MD SERVICE DATE: 10/08/16 EXAM TYPE: CAT - CT ABD & PELVIS W/O IV CONTRAS EXAMINATION: CT ABDOMEN AND PELVIS WITHOUT CONTRAST CLINICAL INFORMATION: Right lower quadrant pain. Diarrhea. History of Crohn's disease. COMPARISON: 09/02/2016 TECHNIQUE: Multidetector volumetric imaging was performed from the superior aspect of the liver through the pubic symphysis. Sagittal and coronal reformatted images were obtained on the technologist's workstation. DLP: 542 mGy-cm FINDINGS: LUNG BASES: Small bilateral pleural effusions with associated atelectasis. This is increased from prior. Coronary artery calcifications present. LIVER, GALLBLADDER, AND BILIARY TREE: The liver is normal in size and shape. There is diffuse portal venous gas, particularly in the left lobe of the liver. The gallbladder is again noted to be markedly distended. Small layering gallstones seen within the gallbladder lumen. No wall thickening or pericholecystic fluid. PANCREAS: Fatty atrophy of the pancreas with no focal abnormality. SPLEEN: Unremarkable. ADRENAL GLANDS: Unremarkable. KIDNEYS AND URETERS: The kidneys are mildly atrophic. There is a left midpole 4.6 cm cyst. No hydronephrosis. No nephrolithiasis. The ureters are normal in caliber. BLADDER: Unremarkable. GASTROINTESTINAL TRACT: The stomach is distended without wall thickening. There is gas and fluid-filled prominence of the small bowel throughout much of its course. The patient appears to be status post near total colectomy. There is a distal enterocolic anastomosis seen in the anterior pelvis. There is wall thickening of the remaining colon. There is also wall thickening seen in the distal small bowel which is fecalized. No pneumatosis. ABDOMINAL WALL: Diffuse anasarca. Fat-containing inguinal hernias. LYMPH NODES: Normal. VASCULAR: Moderate atherosclerotic calcifications. PELVIC VISCERA: Limited evaluation secondary to left hip arthroplasty artifact. OSSEOUS STRUCTURES: Left hip hemiarthroplasty. Degenerative changes of the spine. IMPRESSION: New presence of portal venous gas, most prominently in the left lobe of the liver. Post surgical changes of the bowel with distal enterocolic anastomosis. There is wall thickening of the distal small bowel and remaining colon, suggestive of enterocolitis. This could be associated with the patient's history of Crohn's disease. Mild prominence with gas and fluid filling small bowel proximally, likely reactive to the distal process and possibly partially obstructed. Small bilateral pleural effusions. This critical result was discussed with ANITA HARRIS MD by telephone at 10/08/2016 2:15 AM and it was ascertained that the content and urgency of the report was understood at the time of direct communication. DICTATED BY: CARLYLE HEATH,SWATI DATE/TIME DICTATED:10/08/16204 DYNAMICS AX TECHNICAL ARCHITECT:JOSE D DATE/TIME TRANSCRIBED:10/08/16204 CONFIDENTIAL, DO NOT COPY WITHOUT APPROPRIATE AUTHORIZATION. <Electronically signed in Other Vendor System> SIGNED BY: CARLYLE HEATH,SWATI 10/08 0228 Assessment/Plan Assessment/Recommendations Assessment: 1. Severe hypotension. His most recent blood pressure was 68 by Doppler. At this point, he is barely responsive and limitations in terms of escalation of care have been made. I have also been told that he had earlier today a large bloody bowel movements. His hypotension and abdominal pain may reflect a GI bleed or worse yet gut ischemia. At this point, I do not think that dialysis is appropriate. Instead, we'll reassess in the morning. In the interim, would suggest vigorous volume replacement and transfusion as needed. 2. End-stage renal disease. He is typically dialyzes Friday and Friday. Today is Friday. Given his hemodynamic status dialysis would not be appropriate today. Given his clinical course, further discussion with regards to goals of care may be in order. It is noted that he was just discharged from the hospital on October 04. 3. Antiphospholipid l antibody syndrome 4. History of Crohn's disease 5. History of diabetes 6. Possible gut ischemia with gas in the portal venous system. Recommendations: 1. Suggest continued volume replacement. 2. No dialysis for today since it is suspected that he would not tolerate this. Fortunately he is not hyperkalemic.
--- NOTE | 2016-10-09 11:04 | NUR ---
@0800-PT LETHARGIC. OPENS EYES. RESTLESS. NOT FOLLOWING COMMANDS. AGITATED AT TIMES. AFEBRILE. CONT ON 3LNC. O2SAT 91-94%. REMAINS HYPOTENSIVE. BP 68/DOPPLER. RECIEVED IV SOLUCORTEF 100MG AT THIS TIME ORD. CONT NPO. INC OF LARGE AMTS OF REDDISH BROWN STOOL. STOOL CX SENT. GUIAC POSITIVE. BUE WEEPING. +2 EDEMA TO LUE. MULT SKIN ISSUES INCLUDING SCABBED BLOOD BLISTERS TO L HAND. ULCERS TO R AND LLE WITH XEROFORM DSG IN PLACE, CHANGED THIS AM BY NIGHT RN AT 0600. BUE/BLE ELEVATED ON PILLOWS. DUODERM TO COCCYX INTACT. IVF CONT TO INFUSE D5NS AT 75ML/HR. CONT TO MONITOR CLOSELY.
--- NOTE | 2016-10-09 11:08 | NUR ---
@1000-PT MORE LETHARGIC, RESTLESS. BP 50/DOPPLER. MEDICATED WITH MORPHINE 2MG AT THIS TIME. AWAITING ARRIVAL OF -CALLED BY HOUSESTAFF DUE TO PT BECOMING MORE UNSTABLE. CONT TO MONITOR CLOSELY.
--- NOTE | 2016-10-09 11:43 | PN- Diabetes ---
Assessment/Plan Assessment: 75yo male with multiple medical problems including renal failure on dialysis, crohns disease, adrenal insufficiency, diabetes and PVD with left lower extremity necrotizing nonhealing ulcers, and aspiration pneumonia, was admitted for abdominal pain. CT scan showed portal venous gas in the liver. His family does not wish to pursue surgical intervention. Currently he is NPO, on metronidazole and Ceftriaxone. He had one episode of bloody bowel movement. Patient has been hypotensive with SBP in the 60s and 70s. He has been on stress dose of hydrocortisone 100 mg iv every 6 hours. He is on D51/2 NS at 75 ml/hour. He is on Novolog coverage every 4 hours (the coverage starts when FSG is > 200). His FSGs were 152, 125, 197 and 197. Plan: continue the current treatment at this point. will follow. Subjective Subjective: He appears weak. Objective Last 24 Hrs of Vital Signs/I&O Vital Signs Date Time Temp Pulse Resp B/P Pulse O2 O2 Flow FiO2 Ox Delivery Rate 10/09 0800 96.1 79 20 68/0 94 Nasal 3.0L Cannula 10/09 0800 92 Nasal 3.0L Cannula 10/09 0700 108 35 132/70 98 Venti Mask 45% 10/09 0400 91 Nasal 3.0L Cannula 10/09 0000 90 Nasal 3.0L Cannula 10/08 2300 96.8 72 15 55/37 91 Nasal 3.0L Cannula 10/08 2000 91 Nasal 3.0L Cannula 10/08 1600 Nasal 3.0L Cannula 10/08 1600 96.1 71 19 78/0 Nasal 3.0L Cannula 10/08 1200 92 Nasal 3.0L Cannula Intake & Output 10/09 1600 10/09 0800 10/09 0000 Intake Total 757 775 Output Total 0 0 Balance 757 775 Intake, IV 757 775 Intake, Oral 0 0 Number 1 2 Bowel Movements Output, Urine 0 0 Patient 155 lb Weight Findings Pertinent Lab/[place] Results: Laboratory Tests 10/09 10/08 0515 2045 Coagulation PT (9.4 - 12.5 SEC) 55.0 *H INR (0.90 - 1.17) 5.33 *H Hematology CBC w Diff MAN DIFF ORDERED NO MAN DIFF REQ WBC (4.8 - 10.8 /CUMM) 7.2 9.4 RBC (4.70 - 6.10 /CUMM) 3.15 L 3.61 L Hgb (14.0 - 18.0 G/DL) 9.3 L 10.3 L Hct (42 - 52 %) 30.0 L 33.9 L MCV (80.0 - 94.0 FL) 95.0 H 94.0 MCH (27.0 - 31.0 PG) 29.5 28.6 RDW (11.5 - 14.5 %) 24.0 H 23.5 H Plt Count (130 - 400 /CUMM) 172 213 MPV (7.4 - 10.4 FL) 10.9 H 9.9 Gran % (42.2 - 75.2 %) 85.1 H 86.0 H Lymphocytes % (20.5 - 51.1 %) 5.2 L 4.7 L Monocytes % (1.7 - 9.3 %) 9.7 H 9.2 Eosinophils % (0 - 5 %) 0 0 Basophils % (0.0 - 2.0 %) 0 L 0.1 Absolute Granulocytes (1.4 - 6.5 /CUMM) 6.1 8.1 H Segmented Neutrophils (42.2 - 75.2 %) 58 Band Neutrophils (0.0 - 5.0 %) 22 H Absolute Lymphocytes (1.2 - 3.4 /CUMM) 0.4 L 0.4 L Lymphocytes (20.5 - 51.1 %) 9 L Monocytes (1.7 - 9.3 %) 9 Absolute Monocytes (0.10 - 0.60 /CUMM) 0.7 H 0.9 H Absolute Eosinophils (0.0 - 0.7 /CUMM) 0 0 Absolute Basophils (0.0 - 0.2 /CUMM) 0 0 Metamyelocytes (0.0 - 1.0 %) 2 H Nucleated RBCs (0.0 - 0.0 /100WBC) 5 H Platelet Estimate (ADEQUATE) ADEQUATE Polychromasia 1+ Hypochromic-Microcytic 1+ Poikilocytosis 1+ Anisocytosis 1+ Ovalocytes 1+ PUBS MCHC (33.0 - 37.0 G/DL) 31.0 L 30.4 L Other Body Source Fld Total RBCs Counted (%) 100
--- NOTE | 2016-10-09 12:07 | Event Note ---
Event Note Event Note: Situation :Goals of care discussion. Brief :Patient's mental status deteriorating,hallucinating,not alert oriented, previously had been made DNR/DNI with no agressive measures. Assesment : Vitals : BP : 68/doppler , HR : 108, RR : 20, 94% on 3 litres. due to the low BP,it was planned that dialysis will be postponed as per nephrology, dialysis would be unsafe. Plan : We called his ad informed him about his deterioratin status.The was here within 20 minutes of phone call.Me alongwith Dr Del Cid talked with his at length. is completely aware and realistic about Mr. Marvin's situation.Over the course, there have been previous goals of care discussion with her at this as well as previous admission.She agrees to making him comfortable and we will change code status to comfort care. We will give him 4 mg in morphine now and d/c all his meds. We will keep him on steroids for now. PRN morphine and PRN ativan ordered. Scopolamine patch. At this point, we will wait and watch, we will not get hospice involve for now, will shift him to private room and will not do any blood work.
--- NOTE | 2016-10-09 12:28 | NUR ---
@1200-PT CHANGED TO COMFORT CARE AFTER MTG WITH . PT MEDICATED WITH PRN MORPHINE AND PRN ATIVAN. IVF DC'D AT THIS TIME. ASSISTED TO COMF POSITION. AWAITING ELECTRONIC WARFARE OFFICER THAT FAMILY CALLED IN. TRANSCOPE PATCH ORD.
--- NOTE | 2016-10-09 13:37 | PN- CRCU ---
Subjective HPI/Critical Care Issues: pt seen and examined minimally responsive recieved morphine hypotensive discussion held with plan for comfort measures, no eval for hospice as of yet depending on progress Objective Current Medications: Current Medications Sig/Kailash Start time Last Medication Dose Route Stop Time Status Admin Artificial Tears 2 GTT TID 10/08 0407 AC 10/09 OPH 1004 Ceftriaxone Sodium 1,000 MG Q24H 10/09 0400 DC 10/09 IV 0342 Dextrose/Sodium 1,000 ML Q13H 10/08 0600 DC 10/09 Chloride IV 0828 Hydrocortisone 100 MG Q6H 10/08 1400 AC 10/09 Sodium Succinate IV 0828 Insulin Aspart 0 Q4 10/08 1800 DC 10/09 SC 1004 Insulin Human Regular 0 Q6 10/08 0600 DC 10/08 SC 1228 Lorazepam 0.5 MG Q4P PRN 10/09 1215 AC IV Lorazepam 1 MG ONCE ONE 10/09 1130 DC 10/09 IV 10/09 1131 1129 Magnesium Sulfate 1 GM Q2H 10/08 1115 DC 10/08 Dextrose/Water 100 ML IV 10/08 1514 1420 Metronidazole 500 MG Q8H 10/08 1200 DC 10/09 N/A 1 UNIT IV 0334 Morphine Sulfate 4 MG ONCE ONE 10/09 1215 DC 10/09 IV 10/09 1216 1206 Morphine Sulfate 2 MG Q6P PRN 10/09 1215 AC IV Morphine Sulfate 2 MG ONCE ONE 10/09 1015 DC 10/09 IV 10/09 1016 1015 Scopolamine HBr 1 PAT Q72H 10/09 1215 AC TOP Sodium Chloride 500 ML BOLUS ONE 10/09 1015 DC 10/09 IV 10/09 1114 1009 Vital Signs & I&O Last 24 Hrs of Vitals and I&O: Vital Signs Date Time Temp Pulse Resp B/P Pulse O2 O2 Flow FiO2 Ox Delivery Rate 10/09 0800 96.1 79 20 68/0 94 Nasal 3.0L Cannula 10/09 0800 92 Nasal 3.0L Cannula 10/09 0700 108 35 132/70 98 Venti Mask 45% 10/09 0400 91 Nasal 3.0L Cannula 10/09 0000 90 Nasal 3.0L Cannula 10/08 2300 96.8 72 15 55/37 91 Nasal 3.0L Cannula 10/08 2000 91 Nasal 3.0L Cannula 10/08 1600 Nasal 3.0L Cannula 10/08 1600 96.1 71 19 78/0 Nasal 3.0L Cannula Intake & Output 10/09 1600 10/09 0800 10/09 0000 Intake Total 757 775 Output Total 0 0 Balance 757 775 Intake, IV 757 775 Intake, Oral 0 0 Number 1 2 Bowel Movements Output, Urine 0 0 Patient 155 lb Weight Exam Other Physical Findings: gen minimally responsive heent ncat cvs s1, s2 lungs anterior exam with rare rhonchi abd soft, bs diminished ext with chronic changes Results Last 24 Hrs of Lab Results: Laboratory Tests 10/09/16514: PT 55.0 *H, INR 5.33 *H, CBC w Diff MAN DIFF ORDERED, RBC 3.15 L, MCV 95.0 H, MCH 29.5, RDW 24.0 H, MPV 10.9 H, Gran % 85.1 H, Lymphocytes % 5.2 L, Monocytes % 9.7 H, Eosinophils % 0, Basophils % 0 L, Absolute Granulocytes 6.1 , Segmented Neutrophils 58, Band Neutrophils 22 H, Absolute Lymphocytes 0.4 L, Lymphocytes 9 L, Monocytes 9, Absolute Monocytes 0.7 H, Absolute Eosinophils 0 , Absolute Basophils 0, Metamyelocytes 2 H, Nucleated RBCs 5 H, Platelet Estimate ADEQUATE, Polychromasia 1+, Hypochromic-Microcytic 1+, Poikilocytosis 1 +, Anisocytosis 1+, Ovalocytes 1+, PUBS MCHC 31.0 L, Fld Total RBCs Counted 100 10/08/162044: CBC w Diff NO MAN DIFF REQ, RBC 3.61 L, MCV 94.0, MCH 28.6, RDW 23.5 H, MPV 9.9, Gran % 86.0 H, Lymphocytes % 4.7 L, Monocytes % 9.2, Eosinophils % 0, Basophils % 0.1, Absolute Granulocytes 8.1 H, Absolute Lymphocytes 0.4 L, Absolute Monocytes 0.9 H, Absolute Eosinophils 0, Absolute Basophils 0, PUBS MCHC 30.4 L Impression/Plan Impression/Plan Impression/Plan: Impression 75 year old man - portal venous gas most prominent left lobe of liver resulting in septic shock - ESRD on HD - DM - Hx of afib - chronic LE wounds - Crohn's disease - hx adrenal insufficiency Plan - after discussion with pt's - plan for comfort measures - morphine, scopolamine, ativan as needed - no further blood work - can leave hydrocortisone with a taper - DNR/DNI - transfer to private room when possible - depending on clinical course, opened to hospice discussion TTS 40 min Code Status: Do Not Resucitate/Intubat
[2016-10-09 16:00] VITALS: BP 50/0
--- NOTE | 2016-10-09 16:25 | NUR ---
@1600-PT CONT COMFORT CARE. MEDICATED WITH PRN MORPHINE. INC CARE PROVIDED. MOUTH CARE PROVIDED. REMAINS AT BEDSIDE. TEXTILES PRINTER AT BEDSIDE. CONT TO MONITOR CLOSELY AND PROVIDE SUPPORT AND COMFORT NEEDED
--- NOTE | 2016-10-09 20:25 | NUR ---
SPOKE TO [facility], PT DECLINED
--- NOTE | 2016-10-10 22:42 | Event Note ---
Event Note Event Note: I was informed by the nursing staff that Mr. Alvarado became asystolic. I personally examined the patint. There was no detectible electrical activity on the heart monitor. Patient was unresponssive and without spontaneous breathing effort/activity. Skin: pale and cold. Heart: No heart sound Lungs: no breathing effort was appreciated Neuro exam: No response to stimulus, no withdrawl from pain (GCS 3), pupils dilated and fixed and non-reactive to light. Caloric test was negative. No dolls eye. no gag. Patient was pronounced at 7: 10. patient was on comfort measures. No rescusitation effort was done.
--- NOTE | 2016-10-13 22:36 | Discharge Summary ---
See Addendum Visit Information Visit Dates Admission Date: 10/08/16 Discharge Date: 10/10/16 Hospital Course Course Attending Physician: HAWK JACKSON MD Primary Care Physician: TAD CATALAN MD Consulting Request: Consulting Specialty: Critical Care Hospital Course: 75 year old man with multiple medical comorbidities significant for ESRD on HD and Crohn's disease brought in by ambulance presented with persistent/worsening abdominal pain after hemodialysis. He was found to be hypotensive, tachycardic, tachypneic upon admission. CT scan of the abdomen demonstrated finding of portal venous gas in the liver likely secondary to mesenteric ischemia. Surgery was consulted but since the family did not wish to pursue any surgical intervention, no further interventions were done except for conservative management with ceftriaxone and Metronidazole. Over the next 24 hours his condition deteriorated, remained hypotensive despite of fluid resuscitation. His mental state deteriorated, he was having hallucinations, he was not alert oriented, goals of care discussion was held with the and the decision was made to pursue with comfort care only and an eventual hospice evaluation. Unfortunately later in night patient was found to be unresponsive, examination was performed by on-call resident and patient was pronounced at 7:10 PM. Rest in peace. Allergies: Coded Allergies: Sulfa (Sulfonamide Antibiotics) (Mild, HIVES 06/15/16) Pertinent Lab Results: New presence of portal venous gas, most prominently in the left lobe of the liver. Post surgical changes of the bowel with distal enterocolic anastomosis. There is wall thickening of the distal small bowel and remaining colon, suggestive of enterocolitis. This could be associated with the patient's history of Crohn's disease. Mild prominence with gas and fluid filling small bowel proximally, likely reactive to the distal process and possibly partially obstructed. Small bilateral pleural effusions. Disposition Summary Disposition Principal Diagnosis: Abdominal pain likely secondary to mesenteric ischemia. Additional Diagnosis: Adrenal insufficiency ESRD on HD History of atrial fibrillation Discharge Disposition: Discharge Instructions General Discharge Information Code Status: Comfort Care Only Patient's Diet: n/a Patient's Activity: n/a Follow-Up Instructions/Appts: n/a Copies To: HAWK JACKSON MD
== END 2016-10-09 19:10 | disposition expired | DRG 871 ==
LOC: ENRESERVDT → ENRESERVTM → ERH 22:11 → CRI 10-08 02:36 → ERHI 10-08 02:36 → CRI 10-08 02:36
PROVIDERS: Emergency Medicine; Internal Medicine; Internal Medicine Hematology & Oncology; Student in an Organized Health Care Education/Training Program; ADMIT Internal Medicine
PROC: 5A1D60Z (ICD-10-PCS; principal; 2016-10-08)
DX: A41.9 Sepsis, unspecified organism (principal); K55.059 Acute (reversible) ischemia of intestine, part and extent unspecified; R65.21 Severe sepsis with septic shock; D68.61 Antiphospholipid syndrome; Z51.5 Encounter for palliative care; N18.6 End stage renal disease; D68.9 Coagulation defect, unspecified; I12.0 Hypertensive chronic kidney disease with stage 5 chronic kidney disease or end stage renal disease; K50.90 Crohn's disease, unspecified, without complications; E27.40 Unspecified adrenocortical insufficiency; L97.929 Non-pressure chronic ulcer of unspecified part of left lower leg with unspecified severity; L97.919 Non-pressure chronic ulcer of unspecified part of right lower leg with unspecified severity; I48.2 Chronic atrial fibrillation; E11.22 Type 2 diabetes mellitus with diabetic chronic kidney disease; Z79.01 Long term (current) use of anticoagulants; I73.9 Peripheral vascular disease, unspecified; K76.89 Other specified diseases of liver; Z79.4 Long term (current) use of insulin; Z99.2 Dependence on renal dialysis; Z86.718 Personal history of other venous thrombosis and embolism; Z87.891 Personal history of nicotine dependence
CPT/HCPCS: CCU; 36415; 74176; 82436; 87040; 87045; 87328; 87329; 93005; 93010; 96374; 96375; J0696; J1720; J2060; J2270; J2405; J7040; J7042